=== PATIENT | female | born 1965 | race Caucasian/White ===

== ENCOUNTER 2023-03-20 10:40 | Emergency (ER) | payer MEDICARE, SELFPAY ==
--- NOTE | ~2023-03-20 | CT_ITS ---
EXAMINATION: CT abdomen pelvis w con DATE: 03/20/2023 14:56 INDICATION: Upper abdominal pain TECHNIQUE: Computed tomography (CT) of the abdomen and pelvis was performed with 100 mL Omnipaque-350 intravenous contrast. Automated exposure control and iterative reconstruction technique were employe d. The dose-length product was 1370.06 mGy-cm. COMPARISON: None FINDINGS: Calcified left lower lobe nodule and calcified left hilar and mediastinal lymph nodes consistent with old granulomatous disease. Mild right basilar atelectasis along the mildly elevated right hemidiaphr agm. Heart size is normal. No pericardial or pleural effusion. Cholecystectomy clips the gallbladder fossa. Liver, spleen and right adrenal gland are normal. 1.5 cm macroscopic fat attenuation left adre nal myelolipoma. Couple cystic lesions at the tail the pancreas larger measuring 1.2 cm with no evide nt solid enhancing soft tissue component. Small focus of cortical scarring at the lower pole of the l eft kidney likely sequela prior infection or infarction. Right kidney is normal. No hydronephrosis. M ultiple diverticula along the descending and sigmoid colon without adjacent from trace stranding to s uggest diverticulitis. Postoperative change of prior hysterectomy and cystectomy with ileal conduit f ormation. Small bowel anastomosis likely at the ileal conduit harvest site in the anterior lower abdo men. Stranding surrounding a reportedly recently placed left lower osteotomy for the ileal conduit. N o dilated bowel to suggest obstruction. Additional stranding at the site of a likely recently taken d own prior right abdominal ostomy. Stranding along a midline abdominal surgical wound. More chronic ap pearing right inguinal hernia repair. No intra-abdominal abscess or free intraperitoneal gas or fluid . No pathologically enlarged abdominal or pelvic lymphadenopathy. Infrarenal IVC filter. L1-L5 anteri or and posterior spinal fusion with interbody bone graft cages at each level and bilateral vertical r od and pedicle screw fixation at L1-L3. There is also posterior fusion bilaterally at L5-S1. Spinal s timulator in the subcutaneous tissues at the left buttock with leads extending cephalad into the cent ral canal at the posterior thoracic spine with distal tips positioned at the level of T8 and T11. IMPRESSION: 1. Recent postoperative change of likely takedown and replacement of a right-sided with a left-sided lower abdominal ostomy for an ileal conduit. No evident abscess, leak, obstruction or other acute int ra-abdominal/pelvic process. 2. Additional likely more chronic changes of prior cholecystectomy, cystectomy and hysterectomy as we ll as right lower quadrant and inguinal hernia repair and infrarenal IVC filter placement. 3. Diverticulosis. 4. Couple cystic lesions at the tail of the pancreas the larger measuring 1.2 cm. The differential di agnosis includes pseudocyst, intraductal papillary mucinous neoplasm (IPMN), mucinous cystic neoplasm (MCN), and the less common serous cystadenoma and neuroendocrine tumor. Correlate for history of ware creatitis with any prior outside imaging. Otherwise would consider 1 year follow-up pre and postcontr ast MRI. Reviewed, dictated and finalized at location A. IMPRESSION: 1. Recent postoperative change of likely takedown and replacement of a right-si ded with a left-sided lower abdominal ostomy for an ileal conduit. No evident a bscess, leak, obstruction or other acute intra-abdominal/pelvic process. 2. Additional likely more chronic changes of prior cholecystectomy, cystectomy and hysterectomy as well as right lower quadrant and inguinal hernia repair and infrarenal IVC filter placement. 3. Diverticulosis. 4. Couple cystic lesions at the tail of the pancreas the larger measuring 1.2 c m. The differenti
[2023-03-20 10:59] VITALS: BP 154/93; PULSE 90; RESP 20; TEMP 36.8; O2SAT 100
--- NOTE | 2023-03-20 12:48 | ECG_ITS ---
Measurements Intervals [place] Rate: 100 P: 54 MD: 202 QRS: 47 QRSD: 92 T: 43 QT: 333 QTc: 430 Interpretive Statements SINUS TACHYCARDIA NONSPECIFIC ST & T-WAVE ABNORMALITY- DIFFUSE LEADS BASELINE ARTIFACT- I, V4 ABNORMAL ECG NO PREVIOUS ECG AVAILABLE FOR COMPARISON Electronically Signed On 03-20-2023 15:50:36 CDT by Arjun Handley D.O.
[2023-03-20] MEDS: MORPHINE SULFATE (*CRX) 4 MG/ML INJ IV PUSH ×2 (13:19→15:36)
[2023-03-20 14:13] VITALS: BP 163/92; PULSE 70; RESP 16; O2SAT 98
[2023-03-20 14:26] LABS: Basophils Absolute Auto 0.1 K/mm3 (0.0-0.1); Basophils Percent Auto 0.8 % (0.2-1.2); Eosinophils Absolute Auto 0.3 K/mm3 (0-0.3); Eosinophils Percent Auto 5.3 % (0-4.4); Hematocrit 36.4 % (37.0-47.0); Hemoglobin 11.6 g/dL (12.0-15.0); Immature Granulocyte Absolute 0.03 K/mm3 (0.00-0.031); Immature Granulocyte Percent A 0.5 % (0-0.5); Lymphocytes Absolute Auto 2.24 K/mm3 (0.9-3.2); Lymphocytes Percent Auto 37.3 % (18.3-44.2); Mean Corpuscular HGB Conc 31.9 g/dl (32-36); Mean Corpuscular Hemoglobin 26.5 pg (26-34); Mean Corpuscular Volume 83.3 fl (80-100); Mean Platelet Volume 9.9 fl (7.4-10.4); Monocytes Absolute Auto 0.5 K/mm3 (0.1-0.6); Monocytes Percent Auto 8.5 % (2.6-8.5); Neutrophils Absolute Auto 2.9 K/mm3 (1.3-6.7); Neutrophils Percent Auto 47.6 % (45.5-73.1); Platelet Count Result 148 k/mm3 (150-375); Red Blood Count 4.37 M/mm3 (4.2-5.4); Red Cell Distribution Width 14.8 % (11.5-14.5)
[2023-03-20 14:28] LABS: Appearance Urine Clear (Clear); Bacteria Urine 3+ /hpf; Bilirubin Urine Negative (Negative); Blood Urine 1+ (Negative); Color Urine Yellow (Yellow); Glucose Urine UA Negative (Negative); Ketones Urine Negative (Negative); Leukocyte Esterase Ur 1+ LEU/UL (Negative); Nitrate Urine Positive (Negative); Non Pathogenic Casts 0-2; Protein Urine Negative (Negative); RBC Urine 0-2 /hpf (0-2); Specific Grav Ur 1.008 (1.001-1.035); Squamous Epithelial Cell Urine None seen /hpf (Few); Urobilinogen Urine 0.2 mg/dL (<2.0); pH Urine 6.5 (5.0-9.0)
[2023-03-20 14:37] LABS: Alanine Aminotransferase 16 U/L (6-35); Albumin Level 3.9 g/dL (3.5-5.1); Alkaline Phosphatase 95 U/L (38-126); Anion Gap 4 mmol/L (8-16); Aspartate Amino Transferase 21 U/L (14-36); Bilirubin,Total 0.5 mg/dL (0.2-1.3); Blood Urea Nitrogen 12 mg/dL (7-17); Calcium 8.3 mg/dL (8.4-10.2); Carbon Dioxide 30 mmol/L (22-30); Chloride 103 mmol/L (98-107); Estimated CRCL calculation 121 ml/min; Estimated Glomerular Filt Rate > 60; Glucose 90 mg/dL (65-110); Lipase 30 U/L (23-300); Sodium 137 mmol/L (137-145)
[2023-03-20 14:44] LABS: Add Urine Microscopic? YES
[2023-03-20 14:48] LABS: Troponin I < 0.012 ng/mL (0.000-0.034)
--- NOTE | 2023-03-20 15:00 | PC.NURSE ---
return from ct. pt requesting more pain medication. edp informed.
[2023-03-20 15:30] LABS: INR 1.1; Prothrombin Time 14.5 Seconds (11.1-14.7)
[2023-03-20 15:31] LABS: Partial Thromboplastin Time 29.1 SECONDS (22.3-36.8)
--- NOTE | 2023-03-20 15:59 | ED.GENADULT ---
HPI - General Adult General Chief complaint: Abdominal Pain Stated complaint: abd pain, new urine stoma placed Time Seen by Provider: 03/20/23 12:29 History of Present Illness HPI narrative: Patient is a 57-year-old female who presents ER with abdominal pain. She had a parastomal hernia on the right side repaired by urologist at [facility] 3 weeks ago. She has begun having pain in her abdomen over the last couple days. She is concerned that her urine coming from her left ileal conduit is infected. It is foul in smell. She thinks it is darker in color. She has had no fevers or chills or sweats. She has had being normal passage of bowel. She has pain in her mid abdomen that is colicky and worsened by certain movements. Patient also reports chest pain that occurred yesterday and was achiness to the center part of her chest but is now resolved. Related Data Allergies Allergy/AdvReac Type Severity Reaction Status Date / Time adhesive tape Allergy Unknown Unknown Verified 02/14/23 09:54 Penicillins Allergy Unknown Unknown Verified 02/14/23 09:54 Sulfa (Sulfonamide Allergy Unknown Unknown Verified 02/14/23 09:54 Antibiotics) vancomycin Allergy Unknown Unknown Verified 02/14/23 09:54 latex Allergy Unknown Unknown Uncoded 02/14/23 09:54 Review of Systems Review of Systems: All systems reviewed & are unremarkable except as noted in HPI and below Constitutional: Constitutional: Denies chills, Denies fatigue and Denies fever(s) ENT: Denies nasal congestion and Denies sore throat Cardiovascular: Cardiovascular: Reports chest pain, Denies rapid heart rate and Denies radiating jaw, neck or arm pain Respiratory: Respiratory: Denies cough, Denies dyspnea and Denies wheezing Gastrointestinal: Gastrointestinal: Reports abdominal pain, Denies diarrhea, Denies nausea and Denies vomiting Genitourinary: Genitourinary: Denies nocturia, Denies dysuria and Denies flank pain PMF Past Medical History Medical History (Updated 03/20/23 @ 18:47 by Rodrick Britton MD) Allergies Anxiety Hypertension Paraplegia PTSD (post-traumatic stress disorder) Stroke Surgical History Surgical History (Updated 03/20/23 @ 18:47 by Rodrick Britton MD) History of back surgery History of ileal conduit Family History Family History Father Hypertension Cancer Mother Cancer Hypertension Anxiety Grandparent Cancer Social History Social History Smoking status: Never smoker Alcohol intake: never Substance use: unknown Lack of Transportation: No Lack of Food: Never True Current Housing: I Have Housing Concerned About Future Housing: No Difficulty Paying Gas/Electric Bills: No Difficulty Paying for Meds: No Currently Unemployed: No Education: High School Diploma/GED Difficulty w/ Childcare or Family Care: No Exam Narrative: GENERAL: Well-appearing, well-nourished, and in no acute distress. HEAD: Normocephalic, atraumatic. ENT: Mucous membranes moist. NECK: Supple. CHEST: Clear to auscultation. No respiratory distress. HEART: Regular rate and rhythm. Normal peripheral pulses. ABDOMEN: Soft, mild epigastric and right upper quadrant tenderness without guarding, nondistended, normal active bowel sounds. Normal-appearing ileal conduit site on the left side. Well-healed scar on the right side. EXTREMITIES: Chronic lower extremity weakness due to paralysis. Normal upper extremity movement. SKIN: Warm, dry, no rash. NEURO:Alert and oriented x3. PSYCH: Normal mood and affect. Course Course Emergency Course: Patient given some pain medication. Discussed lab results. Urinalysis with bacteria and a few white blood cells. I discussed the case with Dr. Molina who is on-call for Dr. Cerna. We discussed the imaging studies as well as labs. No acute concern at this time and he o
[2023-03-20 16:40] VITALS: BP 167/99; PULSE 88; RESP 16; O2SAT 100
[2023-03-20 17:15] VITALS: BP 144/89; RESP 18
== END 2023-03-20 17:15 | disposition home or self-care (01) ==
PROVIDERS: Emergency Provider Emergency Medicine; PCP Physician Assistant
DX: G89.18 Other acute postprocedural pain (principal); I10 Essential (primary) hypertension; G82.20 Paraplegia, unspecified; Z93.6 Other artificial openings of urinary tract status; Z86.73 Personal history of transient ischemic attack (TIA), and cerebral infarction without residual deficits; Z90.49 Acquired absence of other specified parts of digestive tract; Z90.710 Acquired absence of both cervix and uterus; K57.90 Diverticulosis of intestine, part unspecified, without perforation or abscess without bleeding; K86.2 Cyst of pancreas; R00.0 Tachycardia, unspecified; R94.31 Abnormal electrocardiogram [ECG] [EKG]
CPT/HCPCS: 36415; 74177; 80053; 81001; 83690; 84484; 85025; 85610; 85730; 87077; 87086; 87088; 87186; 93005; 96374; 96376; 99284; J2270; Q9967

== ENCOUNTER 2023-06-05 10:00 | Outpatient (RCR) | payer MEDICARE, SELFPAY ==
--- NOTE | 2023-05-14 10:11 | OPREHPOC ---
Outpatient Therapy Plan of Care This is a Multidisciplinary Plan of Care that may contain components documented by all disciplines (PT, OT, and ST.) PT Problem 1 PT Problem #1 Knowledge Deficit PT Goal 1 Goal Pt to be IND with issued HEP Target Visit 8 PT Problem 2 PT Problem #2 Pain PT Goal 1 Goal Pt to report BLE pain no greater than 4/10 in the last week. PT Problem 3 PT Problem #3 Impaired Range of Motion PT Goal 1 Goal Pt to improve R knee extension to lacking 40 deg, and L knee lacking 20 deg from terminal knee extension. Target Visit 8 PT Problem 4 PT Problem #4 Impaired Strength PT Goal 1 Goal Pt to clear mat while doing glute bridge Target Visit 8 PT Goal 2 Goal Pt to improve BLE strength to grossly 4/5 PT Problem 5 PT Problem #5 Impaired Functional Mobil PT Goal 1 Goal Pt to be able to tolerate a 10s stand with Min A Target Visit 8 PT Goal 2 Goal Pt to demonstrate a sit to stand transfers with only Min A needed Target Visit 8
--- NOTE | 2023-05-14 10:12 | PTOPEVAL1 ---
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 She has been in and out of rehab multiple times in the last 4 years. She has standing with // bars and a standing frame as of August of this year. Her therapy has been complicated with bladder infections, bladder removal surgeries, infections, and other medical condition. She states she feels a little bit more and more of her legs every day. Pt states her goal is to have her life back. Her primary goals are to stand and walk with a walker and also to straighten her legs. Reported Pain Level Pain Score 5: Self Report Assessment PT Clinical Summary Angelina presents to therapy today for her initial evaluation with a medical diagnosis of an incomplete spinal cord injury, residual from 4 years ago. Today she uses a motorized wheelchair as her only means of mobility. She demonstrates significant knee flexion contractures, lacking 60 deg of extension on the R, and 40 deg on the L. She demonstrates knee and ankle strength grossly 3 +/5. Skilled therapy services including aquatic therapy are indicated to improve functional mobility, to improve strength and ROM, and to help manage LE leg pain. Plan of Care Interventions Aquatic Therapy,Gait Training,Manual Therapy,Neuro Re-education,Patient/Caregiver Educati, Therapeutic Activities,Therapeutic Exercise,Self- Care/Home Management,Wheelchair Training PT Services Indicated Yes Treatment Frequency and 2x/wk for 8 visits Duration These treatments will address the objective and functional deficits as defined above. The patient will be advanced safely and appropriately in order for the patient to progress towards his/her prior level of function. Additional exercises will be introduced and as well as a comprehensive home exercise program upon discharge, if needed, ?to ensure carryover of functional gains achieved in the clinic. This treatment plan has been reviewed and agreement upon by the patient.
--- NOTE | 2023-05-23 07:38 | PCPTNOTE ---
Patient's is sick and will not be able to bring her to therapy today.
--- NOTE | 2023-06-10 11:38 | PCPTNOTE ---
pt did not show for today's reeval appt. Called pt and left a voice message.
--- NOTE | 2023-07-02 11:56 | PTOPDC ---
Assessment and note entered by Malika Banda, PT Discharge Information Assessment PT Clinical Summary Angelina has received 5 PT sessions, from May 13 to Jun 05; she then stopped attending therapy. She will be discharged at this time. The goals were not addressed. Plan of Care PT Services Indicated No
== END 2023-07-02 12:46 | disposition home or self-care (01) ==
LOC: ANHPT 10:00
PROVIDERS: PCP Physician Assistant; Visit Provider Physician Assistant
DX: G82.22 Paraplegia, incomplete (principal)
CPT/HCPCS: 97110; 97113; 97162; 97530; 99199

== ENCOUNTER 2023-08-20 13:02 | Outpatient (CLI) | payer MEDICARE, SELFPAY ==
--- NOTE | ~2023-08-20 | CT_ITS ---
EXAMINATION: CT lumbar spine wo con DATE: 08/20/2023 13:32 INDICATION: Lumbar radiculopathy. TECHNIQUE: Computed tomography (CT) of the lumbar spine was performed without intravenous contrast. A utomated exposure control and iterative reconstruction technique were employed. The dose-length produ ct was 1229.47 mGy-cm. COMPARISON: CT abdomen and pelvis 03/20/2023 FINDINGS: There is a filter in the inferior vena cava. There are epidural electrodes with tips in tho racic spine. There is 12 degrees levoscoliosis of thoracolumbar spine. There is kyphosis of upper lum bar spine. There are changes of anterior fusion procedures at L1-L2, L2-L3, L3-L4, and L4-L5 with int erbody devices. There are changes of posterior fusion procedure from L1 to L5 with pedicle screws fro m L1 to L3. There are bridging endplate osteophytes at L5-S1. The following disc levels are specifica lly discussed: L1-L2: There is mild bilateral facet joint hypertrophy. There is moderate bilateral neural foraminal stenosis. There is no central canal stenosis. There is posterior decompression. L2-L3: There is mild bilateral facet joint hypertrophy. There is mild left neural foraminal stenosis. There is no central canal stenosis. There is posterior decompression. L3-L4: There is mild bilateral facet joint hypertrophy. There is mild bilateral neural foraminal sten osis. There is no central canal stenosis. There is posterior decompression. L4-L5: There is moderate bilateral facet joint hypertrophy. There is moderate right and mild left lilliana ral foraminal stenosis. There is no central canal stenosis. There is posterior decompression. L5-S1: The disc does not extend beyond the endplate margin. There is ankylosis of the facet joints wi th mild bilateral hypertrophy.. There is no neural foraminal stenosis. There is no central canal sten osis. IMPRESSION: 1. Moderate lumbar spondylosis. 2. Anterior fusion from L1 to S1 and posterior fusion from L1 to S1. Reviewed, dictated and finalized at location E. TE SENSING TECHNICIAN
== END 2023-08-20 13:03 | disposition home or self-care (01) ==
LOC: ANHIMG 13:05
PROVIDERS: PCP Physician Assistant; Visit Provider Physical Medicine & Rehabilitation
DX: M47.26 Other spondylosis with radiculopathy, lumbar region (principal); Z98.1 Arthrodesis status
CPT/HCPCS: 72131

== ENCOUNTER 2023-10-01 13:30 | Outpatient (RCR) | payer MEDICARE, SELFPAY ==
--- NOTE | 2023-07-22 17:11 | PTOPEVAL1 ---
Assessment and note entered by Samuel Farooq, PT Evaluation Information Assessment Status Evaluation Diagnosis Incomplete paraplegia Onset March 2019 Subjective Information Reports that her left side appears to be better as far as strength goes. She has been in a wheelchair for about 4 years. Able to self transfer. Reports that she had a stroke approximately 1.5 years ago. She has not been able to stand transfer on her own, but has in the past been able to marine extension agent parallel bars. She has been laying on her stomach to relax her back pain. She would like to be able to return to semi-standing activity and improving weight bearing through legs . Reports that she has sensory in her legs but no motor control. Reported Pain Level Pain Score 6: Self Report Assessment PT Clinical Summary Patient presents with subtle but present muscle activation. Significant knee flexion contractures which limit lever arm on standing activity. Will benefit from skilled therapy to address strength and mobility deficits to maximize functional activity and ADL performance with eventual goal of standing activity. Plan of Care Interventions Aquatic Therapy,Gait Training,Manual Therapy,Neuro Re-education,Therapeutic Activities,Therapeutic Exercise PT Services Indicated Yes Treatment Frequency and 2x/week for 10 visits Duration These treatments will address the objective and functional deficits as defined above. The patient will be advanced safely and appropriately in order for the patient to progress towards his/her prior level of function. Additional exercises will be introduced and as well as a comprehensive home exercise program upon discharge, if needed, ?to ensure carryover of functional gains achieved in the clinic. This treatment plan has been reviewed and agreement upon by the patient.
--- NOTE | 2023-07-22 17:11 | OPREHPOC ---
Outpatient Therapy Plan of Care This is a Multidisciplinary Plan of Care that may contain components documented by all disciplines (PT, OT, and ST.) PT Problem 1 PT Problem #1 Knowledge Deficit PT Goal 1 Goal Indepenence with HEP Target Visit 5 PT Problem 2 PT Problem #2 Impaired Range of Motion PT Goal 1 Goal Improve charisma knee extension to 10 degrees from neutral Target Visit 10 PT Problem 3 PT Problem #3 Impaired Strength PT Goal 1 Goal Improve charisma hip flexion strength to 4/5 to improve foot clearance with ambulation Target Visit 10 PT Goal 2 Goal Improve charisma hip abduction strength to 4/5 to improve lateral stability with ADLs. Target Visit 10 PT Problem 4 PT Problem #4 Impaired Functional Mobil PT Goal 1 Goal Demonstrate ability to stand with charisma UE support for 1 minute for functional transition and weightbearing activity. Target Visit 10
--- NOTE | 2023-07-24 14:47 | PCPTNOTE ---
Pt cancelled due to not being able to take wc into the rain because of the battery.
--- NOTE | 2023-08-25 14:11 | PTOPPROG ---
Assessment and note entered by Samuel Farooq, PT Evaluation Information Assessment Status Progress Diagnosis Incomplete paraplegia Onset March 2019 Subjective Information Reports that she seen improvement in stepping and standing especially in aquatics. Feels that she is able to get a lot more give in her hip and knee stretching while in aquatics. She feels she has been able to do more biking for endurance as she is getting some sensory input in her squatting position. Her land carry over feels she is able to see improved endurance and with standing frame. She has been able to get up in the parallel bars and was able to take 2 steps last week. Able to put more weight through her feet and not her hands . Assessment PT Clinical Summary Patient has seen exceptional improvement in standing activity and LE ROM to improve standing ability and form. She continues to show considerable weakness but has seen improvement in functional and objective strength. Will continue to benefit from skilled therapy to address these deficits. Plan of Care Interventions Aquatic Therapy,Gait Training,Manual Therapy,Neuro Re-education,Therapeutic Activities,Therapeutic Exercise PT Services Indicated Yes Treatment Frequency and 2x/week for 10 visits Duration These treatments will address the objective and functional deficits as defined above. The patient will be advanced safely and appropriately in order for the patient to progress towards his/her prior level of function. Additional exercises will be introduced and as well as a comprehensive home exercise program upon discharge, if needed, ?to ensure carryover of functional gains achieved in the clinic. This treatment plan has been reviewed and agreement upon by the patient.
--- NOTE | 2023-08-25 14:11 | OPREHPOC ---
Outpatient Therapy Plan of Care This is a Multidisciplinary Plan of Care that may contain components documented by all disciplines (PT, OT, and ST.) PT Problem 1 PT Problem #1 Knowledge Deficit PT Goal 1 Goal Indepenence with HEP Target Visit 5 Progress Met PT Problem 2 PT Problem #2 Impaired Range of Motion PT Goal 1 Goal Improve charisma knee extension to 10 degrees from neutral Target Visit 20 Progress Partially Met PT Problem 3 PT Problem #3 Impaired Strength PT Goal 1 Goal Improve charisma hip flexion strength to 4/5 to improve foot clearence with ambulation Target Visit 20 Progress Partially Met PT Goal 2 Goal Improve charisma hip abduction strength to 4/5 to improve lateral stability with ADLs. Target Visit 20 Progress Partially Met PT Problem 4 PT Problem #4 Impaired Functional Mobil PT Goal 1 Goal Demonstrate ability to stand with charisma UE support for 1 minute for functional transition and weightbearing activity. Target Visit 20 Progress Partially Met
--- NOTE | 2023-09-10 14:40 | PCPTNOTE ---
Pt had toothache and awaiting for a dentist appt.
--- NOTE | 2023-09-17 15:29 | PCPTNOTE ---
pt called and canceled appt due to illness.
--- NOTE | 2023-10-15 10:18 | PCPTNOTE ---
pt called and canceled today and tomorrow's appts due to car issues.
--- NOTE | 2023-10-20 12:49 | PCPTNOTE ---
Patient plan of care transferred to #[id number]
--- NOTE | 2023-10-21 08:01 | PCPTNOTE ---
This treatment is being continued on visit number [id number]. Please see documentation on both accounts to view progress. Completed interventions, outcomes, and problems have been marked as Inactive to facilitate the copying of the Care plan routine for recurring accounts.
== END 2023-10-20 12:39 | disposition home or self-care (01) ==
LOC: ANHPT 13:30
PROVIDERS: PCP Physician Assistant; Visit Provider Physician Assistant
DX: G82.22 Paraplegia, incomplete (principal)
CPT/HCPCS: 97110; 97113; 97140; 97161; 97530

== ENCOUNTER 2023-10-14 09:52 | Outpatient (RCR) | payer MEDICARE, SELFPAY ==
--- NOTE | 2023-10-14 11:36 | OTOPEVDC ---
Assessment and note entered by Joe Goldstein, OTR/L, CHT Thank you for referring Angelina Mcnulty to [facility].? An evaluation has been completed. No further treatment is needed. Evaluation Information Assessment Status Evaluation Subjective Information Patient presents for power w/c evaluation. She comes with the dx of incomplete paraplegia. Please refer to scanned mobility evaluation for complete evaluation details. Assessment OT Clinical Summary Angelina is unable to safely and independently ambulate household distances due to her impairments of weakness, contractures, pain, muscle spasms, and poor standing balance. She is a high risk for falls. She demonstrates significant functional mobility limitations that impair her ability to safely participate in mobility-related ADLs. These limitations cannot be sufficiently resolved by the use of an appropriate fitted cane, walker, or manual wheelchair. Patient is unable to utilized an optimally fitted cane or walker due to LE pain and weakness as well as knee contractures. She is unable to utilize a manual w/ c due to right shoulder pain as well as shortness of breath with exertion. A power mobility base will provide this patient a safe means of functional mobility necessary for completion of MRADLS. She requires the features such as tilt and recline for optimal pressure relief. She is also unable to stand and reach items for ADLs, for which a seat elevator will increase her safety and independence with being able to reach into cabinets, brush her teeth at the sink, and be at counter height for meal prep. Angelina has been evaluated and demonstrates the gross motor, fine motor, and cognitive ability to safely operate a power wheelchair. Without the use of a power w/c, this patient would be confined to a chair or bed. With a power w/c this will provide her with a safe meals to perform ADLs. Patient is able and willing to operate power w/c. Patient also has lower extremity tone which causes her feet to come off the footplate. A flexifeet would greatly help stabilize the foot on the foot plate. She has a history of lower extremity injury due to the tone and the leg coming off the footplate. No further OT indicated at this time. Thank you for this referral.
== END 2023-10-14 12:44 | disposition home or self-care (01) ==
LOC: ANHOT 09:52
PROVIDERS: PCP Physician Assistant; Visit Provider Physician Assistant
DX: Z46.89 Encounter for fitting and adjustment of other specified devices (principal); G82.21 Paraplegia, complete
CPT/HCPCS: 97167

== ENCOUNTER 2023-12-24 09:35 | Outpatient (CLI) | payer MEDICARE, SELFPAY ==
--- NOTE | ~2023-12-24 | CT_ITS ---
EXAMINATION: CT thoracic lumbar wo con DATE: 12/24/2023 10:03 INDICATION: Dorsalgia, unspecified. TECHNIQUE: Computed tomography (CT) of the thoracic and lumbar spine was performed without intravenou s contrast. Automated exposure control and iterative reconstruction technique were employed. The dose -length product was 1907.58 mGy-cm. COMPARISON: Lumbar spine CT 08/20/2023 FINDINGS: CT THORACIC SPINE: Calcified left hilar mediastinal lymph nodes are consistent with old granulomatous disease. There is 13 degrees levoscoliosis of thoracic spine. There are changes of anterior fusion p rocedure at C6-C7 with healed interbody bone graft and anterior plate and screws. Vertebral body heig hts are normal. There is mildly decreased disc height at T4-T5, T5-T6, T6-T7, T7-T8, and T8-T9. There is multilevel mild facet joint osteoarthritis. No neural foraminal stenosis. No central canal stenos is. There is epidural electrodes with tips at T8 and T10. CT LUMBAR SPINE: There is a 14 mm mass of fat in left adrenal gland, consistent with a myelolipoma. T here is a filter in the inferior vena cava. There is focal kyphosis at L1-L2. There is 4 mm retrolist hesis of L1 and L2. There are changes of anterior fusion procedure from L1 to L5 with interbody devic es and healed interbody bone graft. There are bridging endplate osteophytes at L5-S1. There are robles es of posterior fusion procedure from L1 to L3 with pedicle screws. The following disc levels are spe cifically discussed: L1-L2: There is ankylosis of the facet joints with mild hypertrophy. There is moderate bilateral neur al foraminal stenosis. There is no central canal stenosis. There is posterior decompression. L2-L3: There is ankylosis of the facet joints with hypertrophy. There is no neural foraminal stenosis . There is no central canal stenosis. There is posterior decompression. L3-L4: There is ankylosis of the facet joints with mild hypertrophy. There is mild bilateral neural f oraminal stenosis. There is no central canal stenosis. There is posterior decompression. L4-L5: There is ankylosis of the facet joints with mild hypertrophy. There is moderate right and mild left neural foraminal stenosis. There is no central canal stenosis. There is posterior decompression . L5-S1: The disc does not extend beyond the endplate margin. There is ankylosis of the facet joints wi th mild hypertrophy. There is no neural foraminal stenosis. There is no central canal stenosis. IMPRESSION: 1. Mild thoracic spondylosis. 2. Thoracic dextroscoliosis. 3. Anterior and posterior fusion from L1 to S1. 4. Stable moderate lumbar spondylosis. Reviewed, dictated and finalized at location A.
[2023-12-24 10:18] LABS: Basophils Absolute Auto 0.1 K/mm3 (0.0-0.1); Basophils Percent Auto 0.8 % (0.2-1.2); Eosinophils Absolute Auto 0.1 K/mm3 (0-0.3); Eosinophils Percent Auto 1.9 % (0-4.4); Hematocrit 39.8 % (37.0-47.0); Hemoglobin 13.1 g/dL (12.0-15.0); Immature Granulocyte Absolute 0.03 K/mm3 (0.00-0.031); Immature Granulocyte Percent A 0.5 % (0-0.5); Lymphocytes Absolute Auto 1.48 K/mm3 (0.9-3.2); Lymphocytes Percent Auto 23.8 % (18.3-44.2); Mean Corpuscular HGB Conc 32.9 g/dl (32-36); Mean Corpuscular Hemoglobin 27.8 pg (26-34); Mean Corpuscular Volume 84.5 fl (80-100); Mean Platelet Volume 9.9 fl (7.4-10.4); Monocytes Absolute Auto 0.4 K/mm3 (0.1-0.6); Monocytes Percent Auto 6.4 % (2.6-8.5); Neutrophils Absolute Auto 4.2 K/mm3 (1.3-6.7); Neutrophils Percent Auto 66.6 % (45.5-73.1); Platelet Count Result 181 k/mm3 (150-375); Red Blood Count 4.71 M/mm3 (4.2-5.4); Red Cell Distribution Width 13.6 % (11.5-14.5); White Blood Count 6.2 K/mm3 (4.5-10.0)
== END 2023-12-24 09:36 | disposition home or self-care (01) ==
LOC: ANHIMG 09:35
PROVIDERS: PCP Physician Assistant; Visit Provider Internal Medicine
DX: D64.9 Anemia, unspecified (principal)
CPT/HCPCS: 36415; 72128; 72131; 85025

== ENCOUNTER 2024-01-07 09:00 | Outpatient (RCR) | payer MEDICARE, SELFPAY ==
--- NOTE | 2023-10-20 12:48 | PCPTNOTE ---
Patient treatment carried forward from #[id number]
--- NOTE | 2023-10-21 08:00 | PCPTNOTE ---
This treatment is being continued from visit number [id number]. Please see documentation on both accounts to view progress. Completed interventions, outcomes, and problems have been marked as Inactive to facilitate the copying of the Care plan routine for recurring accounts.
--- NOTE | 2023-10-31 12:13 | PCPTNOTE ---
Called Pt at 10:45 for 11:15 appointment due to the pool being shocked and being unable to do aquatic therapy. Left voicemail.
--- NOTE | 2023-11-07 13:51 | OPREHPOC ---
Outpatient Therapy Plan of Care This is a Multidisciplinary Plan of Care that may contain components documented by all disciplines (PT, OT, and ST.) PT Problem 1 PT Problem #1 Knowledge Deficit PT Goal 1 Goal Indepenence with HEP Target Visit 5 Progress Met PT Goal 2 Goal 11-07-23 progress met goal continue towards goal Target Visit 28 PT Problem 2 PT Problem #2 Impaired Range of Motion PT Goal 1 Goal Improve charisma knee extension to 10 degrees from neutral Target Visit 20 Progress Partially Met PT Goal 2 Goal 11-07-23 progress goal not met continue towards goal Target Visit 28 PT Problem 3 PT Problem #3 Impaired Strength PT Goal 1 Goal Improve charisma hip flexion strength to 4/5 to improve foot clearence with ambulation Target Visit 20 Progress Partially Met PT Goal 2 Goal Improve charisma hip abduction strength to 4/5 to improve lateral stability with ADLs. Target Visit 20 Progress Not Met Comment 11-07-23 progress goal not met continue towards goals PT Problem 4 PT Problem #4 Impaired Functional Mobility PT Goal 1 Goal Demonstrate ability to stand with charisma UE support for 1 minute for functional transition and weightbearing activity. Target Visit 20 Progress Partially Met PT Goal 2 Goal 11-07-23 progress goal not met continue towards goal Target Visit 28
--- NOTE | 2023-11-07 13:51 | PTOPPROG ---
Assessment and note entered by Malika Banda, PT Evaluation Information Assessment Status Progress Diagnosis Incomplete paraplegia Onset March 2019 Subjective Information having more cramps and pain in her R knee, sometimes extends up into her back; when lying on her back, R leg will flex up to her chest and cannot get it to relax; is no longer taking baclofen, is on flexeril; am starting to feel more in her abdomen--can tell when she having pressure for bowel movements, cannot control her bowels, but can feel them; feel like core muscles are stronger; have been doing her exercises at home; have been assessed for new w/c-- to obtain one that allows her to stand up; Assessment PT Clinical Summary Angelina has received 18 PT sessions, aquatic and land activities. She called and canceled 4 appointments due to illness and car issues. Compared to the initial evaluation: increase strength of both hips and knees; increase extension of both knees; continues to have issues with pain and spasms in legs, with contractures limiting her ability to stand; Continue PT. Plan of Care Interventions Therapeutic Exercise,Aquatic Therapy,Manual Therapy,Neuro Re-education,Therapeutic Activities, Gait Training PT Services Indicated Yes Treatment Frequency and 2x/ wk for 10 more visits Duration These treatments will address the objective and functional deficits as defined above. The patient will be advanced safely and appropriately in order for the patient to progress towards his/her prior level of function. Additional exercises will be introduced and as well as a comprehensive home exercise program upon discharge, if needed, ?to ensure carryover of functional gains achieved in the clinic. This treatment plan has been reviewed and agreement upon by the patient.
--- NOTE | 2023-11-13 13:07 | PCPTNOTE ---
Pt. called to reschedule her appointment for today due to the rain. She is not able to take her wheelchair out in the rain..
--- NOTE | 2023-12-15 15:35 | OPREHPOC ---
Outpatient Therapy Plan of Care This is a Multidisciplinary Plan of Care that may contain components documented by all disciplines (PT, OT, and ST.) PT Problem 1 PT Problem #1 Knowledge Deficit PT Goal 1 Goal Indepenence with HEP Target Visit 5 Progress Met PT Goal 2 Goal 11-07-23 progress met goal continue towards goal Target Visit 28 Progress Met Comment 12-15-23 progress goal met Target 34 visits PT Problem 2 PT Problem #2 Impaired Range of Motion PT Goal 1 Goal Improve charisma knee extension to 10 degrees from neutral Target Visit 20 Progress Not Met Comment 12-15-23 progress goal not met PT Goal 2 Goal 11-07-23 progress goal not met continue towards goal Target Visit 28 Progress Not Met Comment 12-15-23 progress; goal not met; NEW GOAL: supine knee extension (-20') with stretching 1* R 2* L target 34 visits PT Problem 3 PT Problem #3 Impaired Strength PT Goal 1 Goal Improve charisma hip flexion strength to 4/5 to improve foot clearence with ambulation Target Visit 20 Progress Partially Met PT Goal 2 Goal Improve charisma hip abduction strength to 4/5 to improve lateral stability with ADLs. Target Visit 20 Progress Not Met Comment 11-07-23 progress goal not met
--- NOTE | 2023-12-15 15:35 | PTOPPROG ---
Assessment and note entered by Malika Banda, PT Progress Report Assessment Status Progress Diagnosis Incomplete paraplegia Onset March 2019 Subjective Information more pain in past few nights, shooting from low back into R hip- excruciating pain; have been doing the leg exercises and stretching at home with assisting; ortho dr said no standing on R LE due to fracture and when knee straighter, to get an MRI of R Knee- -? meniscal tear and continues to have swelling; have to find a new neuro surgeon--hers moved out of state; last x ray about 2 years of back have a new general provider- Dr. Walters, due to hers leaving; Assessment PT Clinical Summary Angelina has received a total of 28 PT sessions. Compared to the last progress report: passive extension of knee R same at (-30') and L improved by 5 to (-20') in prone position and in supine R and L both (-35'). strength has improved with sitting exercises; education for HEP and progression of them. She has more pain reported in her back and legs-- spasms, sharp, excruciating pain. Angelina and her are motivated and doing the exercises at home- strengthening and stretching. Per ortho dr--NO standing on her R LE due to previous lower leg fracture. And he wants her to achieved more R knee extension, to be able to have an MRI Of the knee. The goals were partially met. Unable to address the standing goals due to new restriction. Continue PT 1x/week for aquatic to increase flexibility of hip and knees. Discussed with pt and discussed: contact ortho dr and get ROM he wants prior to MRI. Set up an appointment with new neurosurgeon to check her spine, due to more pain and spasms reported. Plan of Care Interventions Aquatic Therapy,Neuro Re-education,Patient/ Caregiver Education,Therapeutic Activities PT Services Indicated Yes Treatment Frequency and 1x/wk for 6 more visits Duration These treatments will add
--- NOTE | 2024-01-12 11:59 | PCPTNOTE ---
This treatment is being continued from visit number [id number] Please see documentation on both accounts to view progress. Completed interventions, outcomes, and problems have been marked as Inactive to facilitate the copying of the Care plan routine for recurring accounts.
== END 2024-01-12 10:57 | disposition home or self-care (01) ==
LOC: ANHPT 09:00
PROVIDERS: PCP Physician Assistant; Visit Provider Physician Assistant
DX: G82.22 Paraplegia, incomplete (principal)
CPT/HCPCS: 97110; 97112; 97113; 97140; 97530

== ENCOUNTER 2024-01-20 08:16 | Outpatient (RCR) | payer MEDICARE, SELFPAY ==
--- NOTE | 2024-01-12 12:01 | PCPTNOTE ---
This treatment is being continued from visit number [id number]. Please see documentation on both accounts to view progress. Completed interventions, outcomes, and problems have been marked as Inactive to facilitate the copying of the Care plan routine for recurring accounts.
--- NOTE | 2024-01-13 08:11 | PCPTNOTE ---
Pt canceled due to WC and weather.
--- NOTE | 2024-01-26 10:32 | PCPTNOTE ---
pt called and canceled today's reeval due to raining and cannot get her electric wheelchair out in the rain.
--- NOTE | 2024-04-14 10:46 | PCPTNOTE ---
PHYSICAL THERAPY DISCHARGE Dr. Romeo Alfaro has received a total of 33 PT sessions, from July 22 to January 19, for the diagnosis of incomplete paraplegia . She then stopped attending therapy. Discharge PT. The goals were not addressed.
== END 2024-04-07 14:10 | disposition home or self-care (01) ==
LOC: ANHPT 08:16
PROVIDERS: PCP Physician Assistant; Visit Provider Physician Assistant
DX: G82.22 Paraplegia, incomplete (principal)
CPT/HCPCS: 97113

== ENCOUNTER 2024-03-05 14:03 | Outpatient (CLI) | payer MEDICARE, SELFPAY ==
--- NOTE | ~2024-03-05 | XR_ITS ---
XR_[id number] 03/05/2024 14:33 Indication: Left knee pain Procedure: 2 views left knee Comparison: No prior studies for comparison. Findings: Osteopenia. No fracture, subluxation or dislocation. There is osteoarthritis. The AP view i s limited. Impression: 1: No gross fracture. Limited study. Reviewed, dictated and finalized at location B. Impression: 1: No gross fracture. Limited study.
--- NOTE | ~2024-03-05 | XR_ITS ---
XR hip BI wo pelvis 03/05/2024 14:33 INDICATION: Status post fall. Bilateral hip pain. PROCEDURE: 2 views each hip COMPARISON: No prior studies for comparison. FINDINGS: Fracture, dislocation or subluxation is not identified. There is heterotopic ossification a djacent to the inferior pubic rami bilaterally, likely related to old trauma. No acute fracture or tr aumatic malalignment. There is mild osteoarthritis of the hips. No foreign bodies. The soft tissues a ppear within normal limits. No foreign bodies are identified. IMPRESSION: 1: No acute fracture. Reviewed, dictated and finalized at location B. IMPRESSION: 1: No acute fracture.
--- NOTE | ~2024-03-05 | XR_ITS ---
EXAMINATION: XR_[id number]_CR DATE: 03/05/2024 14:33 INDICATION: Right knee pain. TECHNIQUE: 2 views of right knee were obtained. COMPARISON: None. FINDINGS: The knee is flexed on all views, which decreases sensitivity. No acute fracture. There is a n old healed fracture of fibular diaphysis. Osteopenia is noted. Joint spaces are normal. No knee sergey nt effusion. IMPRESSION: 1. No acute fracture. Reviewed, dictated and finalized at location A. IMPRESSION: 1. No acute fracture.
== END 2024-03-05 14:04 | disposition home or self-care (01) ==
PROVIDERS: PCP Internal Medicine; Visit Provider Nurse Practitioner
DX: M25.551 Pain in right hip (principal); M25.552 Pain in left hip; M25.561 Pain in right knee; M25.562 Pain in left knee
CPT/HCPCS: 73521; 73560

== ENCOUNTER 2024-04-18 12:30 | Observation (INO) | payer MEDICARE, SELFPAY ==
[2024-04-18] VITALS (8 sets, daily range): BP systolic 134–184; BP diastolic 83–95; PULSE 70–88; RESP 18–20; TEMP 36.5–37.3; O2SAT 95–99
--- NOTE | ~2024-04-18 | CT_ITS ---
EXAMINATION:CT diagnostic chest wo con DATE: 04/20/2024 14:56 INDICATION: Metastatic cancer. TECHNIQUE: Computed tomography (CT) of the chest was performed without intravenous contrast. Automate d exposure control and iterative reconstruction technique were employed. The dose-length product (DLP ) was 626.59 mGy-cm. COMPARISON: CT abdomen and pelvis 04/18/2024, 03/20/2023 FINDINGS: The lungs demonstrate mild atelectasis. A calcified left lung nodule and calcified left hil ar and mediastinal lymph nodes are consistent with old granulomatous disease. There is a 10 mm nodule in left thyroid lobe, likely not clinically significant. The heart size is normal. No pericardial ef fusion. There are changes of cholecystectomy. Calcifications in the spleen are consistent with old gr anulomatous disease. The splenic lesions described on 04/18/2024 are occult on this noncontrast exam. There is a 14 mm mass of fat in left adrenal gland, consistent with a myelolipoma. Epidural electrod es are noted. There are changes of anterior fusion procedure in cervical spine. There are changes of anterior and posterior fusion procedures in lumbar spine. IMPRESSION: 1. No evidence of malignancy. 2. The subcentimeter splenic masses described on 04/18/2024 are stable from 03/20/2023, likely granulo matous disease. Reviewed, dictated and finalized at location A. IMPRESSION: 1. No evidence of malignancy. 2. The subcentimeter splenic masses described on 04/18/2024 are stable from 03/01, likely granulomatous disease.
--- NOTE | ~2024-04-18 | CT_ITS ---
CT abdomen pelvis w con Ordering provider: Missy Chacon PA-C History: 58 years Female with . abd pain, hematuria . Comparison: March 20, 2023 Technique: CT abdomen and pelvis with IV and without oral contrast. Automated exposure control and it erative reconstruction technique were employed. The dose-length product was 1094.99 mGy-cm. 100 mL Om nipaque 350 was given IV. Findings: VISUALIZED LOWER CHEST: Normal. UPPER ABDOMINAL ORGANS: Liver: Normal. Gallbladder: Status post cholecystectomy. Spleen: Small hypodensities with the largest Millimeters. Follow-up advised. Possibility of a cyst or metastatic lesions cannot be excluded. Clini marge correlation advised. Stomach/duodenum: Normal. Pancreas: Atrophic changes. Hypodensity seen in the tail of the pancreas measuring 1.4 cm suggestive of a cystic mass. MRI evaluation advised. Smaller lesion is also seen in the tail of the pancreas beka sures 3.5 mm Adrenals: Fat containing areas seen in the left adrenal gland which measures 1.6 cm. Suggestive of my elolipoma. Kidneys: Normal. PELVIC ORGANS: Status post cystectomy. Left anterior ostomy with ileal conduit is noted. BOWEL AND MESENTERY: Colon: No evidence of diverticulitis. No evidence of appendicitis. Small Bowel: Normal. No obstruction. Peritoneum/mesentery: No free air or free fluid. No mesenteric lymphadenopathy. RETROPERITONEUM: Mild atheromatous disease of the abdominal aorta. IVC filter is seen in the inferio r vena cava. No retroperitoneal lymphadenopathy. MUSCULOSKELETAL: Superficial soft tissues: The superficial soft tissues are normal. Bones: Age appropriate degenerative changes of the spine. Postoperative changes in the upper and mid lumbar area. Artifact in the proximal right femur which decreases possibility of proper evaluation. Device Seen in the left buttock area with spinal stimulator. IMPRESSION: 1. Cystic areas in the tail of the pancreas unchanged. Atrophic pancreas. 2. 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 3. Hypodensities in the spleen which may be metastatic. Clinical correlation and follow-up advised. Reviewed, dictated and finalized at location A. IMPRESSION: 1. Cystic areas in the tail of the pancreas unchanged. Atrophic pancreas. 2. 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 3. Hypodensities in the spleen which may be metastatic. Clinical correlation a nd follow-up advised.
--- NOTE | ~2024-04-18 | XR_ITS ---
XR abdomen/kub 1V Ordering provider: Roslyn Tapia APRN History: . fecal impaction . Comparison: April 21, 2024 FINDINGS: BOWEL: Nonobstructive bowel gas pattern. ORGANOMEGALY: None. SIGNIFICANT PATHOLOGIC CALCIFICATIONS: None. OTHER: No free air is seen under the diaphragm. Postoperative changes in the spine. Left spinal stimulator. IMPRESSION: NO ACUTE ABDOMINAL FINDINGS. Reviewed, dictated and finalized at location A.
--- NOTE | ~2024-04-18 | XR_ITS ---
XR chest 2V Ordering provider: Missy Chacon PA-C History: 58 years Female with . weakness, cough x ten days . Comparison: None. FINDINGS: MEDIASTINUM: The cardiac silhouette is not enlarged. LUNGS: No infiltrates, effusions or pneumothorax. Granuloma seen in the left lower lobe area. OTHER: No free air under the diaphragm. Degenerative spine. Spinal stimulator is seen in the lower thoracic area. Postoperative changes in the lower cervical area. IMPRESSION: No acute cardiopulmonary pathology. Reviewed, dictated and finalized at location A.
--- NOTE | ~2024-04-18 | XR_ITS ---
Exam: Abdomen 2V HISTORY: abdominal pain, constipation COMPARISON: Reference is made to a CT examination of the abdomen and pelvis dated 04/18/2024 TECHNIQUE: Supine images of the abdomen and pelvis. FINDINGS: Multiple loops of air opacified nondilated small and large bowel are identified. Air is noted within the rectum. Clips within the right upper quadrant consistent or prior cholecystectomy. Hardware within the upper lumbar spine with a nuclear control operator to the left of midline extending cranially to the thoracic spine. Redemonstration of a calcified granuloma within the left mid to lower lung field. IMPRESSION: Multiple loops of air opacified nondilated small and large bowel. Air is noted within the cecum. Reviewed, dictated and finalized at location A.
--- NOTE | 2024-04-18 12:34 | ECG_ITS ---
Test Date: 2024-04-18 12:38:06 Measurements Intervals [place] Rate: 77 P: 0 RI: 0 QRS: 45 QRSD: 98 T: 49 QT: 397 QTc: 449 Interpretive Statements NORMAL SINUS RHYTHM WITH OCCASIONAL PREMATURE VENTRICULAR COMPLEXES. NONSPECIFIC T-WAVE ABNORMALITY ABNORMAL ECG No previous ECG available for comparison Electronically Signed On 04-19-2024 10:37:47 CDT by Arthur Mason M.D.
--- NOTE | 2024-04-18 14:32 | ED.WEAKNESS ---
HPI - Weakness General Chief complaint: Weakness Stated complaint: blood in urine and stool + URI Time Seen by Provider: 04/18/24 14:12 Source: patient Mode of arrival: wheelchair Limitations: no limitations History of Present Illness HPI Narrative: This is a 58-year-old female that presents to the emergency department for feeling unwell. Reports over the last 10 days she has had cough, congestion, fevers, vomiting, diarrhea. Reports over the last couple of days she has also been experiencing blood in the urine and flank pain. Also reports she saw blood in her stool a couple of days ago. Denies shortness of breath. Related Data Allergies Allergy/AdvReac Type Severity Reaction Status Date / Time adhesive tape Allergy Unknown Unknown Verified 03/22/24 07:57 Penicillins Allergy Unknown Unknown Verified 03/22/24 07:57 Sulfa (Sulfonamide Allergy Unknown Unknown Verified 03/22/24 07:57 Antibiotics) vancomycin Allergy Unknown Unknown Verified 03/22/24 07:57 latex Allergy Unknown Unknown Uncoded 03/22/24 07:57 Review of Systems Review of Systems: CONSTITUTIONAL: Reports fever ENT: Reports rhinorrhea, congestion CARDIOVASCULAR: Reports chest pain. Denies edema. RESPIRATORY: Reports cough. Denies dyspnea. GASTROINTESTINAL: Reports abdominal pain, nausea, vomiting, and diarrhea. GENITOURINARY: Reports hematuria. All systems reviewed & are unremarkable except as noted in HPI and below PMFSH Past Medical History Medical History Allergies Anxiety Hypertension Paraplegia PTSD (post-traumatic stress disorder) Stroke Surgical History Surgical History History of back surgery History of ileal conduit Family History Family History Father Hypertension Cancer Mother Cancer Hypertension Anxiety Grandparent Cancer Social History Social History Smoking status: Never smoker Alcohol intake: never Substance use: unknown Lack of Transportation: No Lack of Food: Never True Current Housing: I Have Housing Concerned About Future Housing: No Difficulty Paying Gas/Electric Bills: No Difficulty Paying for Meds: No Currently Unemployed: No Education: High School Diploma/GED Difficulty w/ Childcare or Family Care: No Exam Narrative: GENERAL: Well-appearing, well-nourished, and in no acute distress. HEAD: Normocephalic, atraumatic. EYES: EOMI. ENT: Nares clear, no rhinorrhea or epistaxis. Mucous membranes dry. Oropharynx without tonsillar hypertrophy exudate or other lesions. CHEST: Clear to auscultation. No respiratory distress. No wheezes rales or rhonchi HEART: Regular rate and rhythm. No murmur heard. Normal peripheral pulses. ABDOMEN: Soft, nondistended, normal active bowel sounds. Tender to palpation throughout the abdomen, without guarding. Ileal conduit present EXTREMITIES: Normal range of motion. No edema. SKIN: Warm, dry, no rash. NEURO: No focal deficits. Alert and oriented x3. PSYCH: Normal mood and affect Course Course Emergency Course: patient updated on her workup and recommendation for admission Consultations Consultation #1: Spoke with hospitalist about patient and workup who accepts admission Date: 04/18/24 Vital Signs Vital signs: Vital Signs Temperature 97.7 F 04/18/24 12:31 Pulse Rate 79 04/18/24 12:31 Respiratory Rate 20 04/18/24 12:31 Blood Pressure 184/89 H 04/18/24 12:31 Pulse Oximetry 99 04/18/24 12:31 Oxygen Delivery Room Air 04/18/24 12:31 Temperature 97.7 F 04/18/24 12:31 Pulse Rate 88 04/18/24 18:08 Respiratory Rate 18 04/18/24 18:08 Blood Pressure 144/95 H 04/18/24 18:08 Pulse Oximetry 99 04/18/24 18:08 Oxygen Delivery Room Air 04/18/24 14:01 MDM - Weakness MDM Narrative Medical decision making narrative: Patient presents to the emergency department for ongoing symptoms over the last week. Reporting cough, vomiting, diarrhea. Reporting experiencing flank pain and blood in her urine today. She is afebrile and nontoxic appearing. Her vitals are stable. Cbc without leukocytosis. Metabolic panel with normal appearing kidney function. Lactic acid is not elevated. Influenza, RSV and COVID screens are negative. Urine with evidence of infection. This will be sent for culture. Patient treated based on previous culture. Chest x-ray without acute cardiopulmonary abnormality. CT abdomen and pelvis shows ileal conduit. Possible cyst in the pancreas and lesions in the spleen. Patient updated on her workup and recommendation for admission due to previous urine culture being resistant to multiple antibiotics. Will be started on meropenem. Blood cultures drawn. Spoke with hospitalist about patient and workup who accepts admission Differential Diagnosis Differential diagnosis: Likely sepsis, dehydration and other ( COVID, influenza, RSV, UTI, pyelonephritis, pneumonia) Lab Data Attestation: I reviewed the patient's lab results. 04/18/24 15:56 04/18/24 14:55 Labs: Lab Results 04/18/24 04/18/24 04/18/24 Range/Units 14:55 15:16 15:56 WBC 7.4 (4.5-10.0) K/mm3 RBC 4.95 (4.2-5.4) M/mm3 Hgb 13.9 (12.0-15.0) g/dL Hct 40.6 (37.0-47.0) % MCV 82.0 (80-100) fl MCH 28.1 (26-34) pg MCHC 34.2 (32-36) g/dl RDW 13.2 (11.5-14.5) % Plt Count 221 (150-375) k/mm3 MPV 9.6 (7.4-10.4) fl Immature Gran % (Auto) 0.4 (0-0.5) % Neut % (Auto) 60.4 (45.5-73.1) % Lymph % (Auto) 28.1 (18.3-44.2) % [place] % (Auto) 7.9 (2.6-8.5) % Eos % (Auto) 2.3 (0-4.4) % Baso % (Auto) 0.9 (0.2-1.2) % Lymph # (Auto) 2.09 (0.9-3.2) K/mm3 [place] # (Auto) 0.6 (0.1-0.6) K/mm3 Eos # (Auto) 0.2 (0-0.3) K/mm3 Baso # (Auto) 0.1 (0.0-0.1) K/mm3 Abs Immat Gran (auto) 0.03 (0.00-0.031) K/mm3 Absolute Neuts (auto) 4.5 (1.3-6.7) K/mm3 Absolute Nucleated RBC 0.000 (0.0-0.012) K/mm3 Nucleated RBC % 0.0 (0.0-0.2) % PT 14.0 (11.1-14.7) Seconds INR 1.1 APTT 27.9 (22.3-36.8) Seconds Sodium 140 (137-145) mmol/L Potassium 3.8 (3.4-5.0) mmol/L Chloride 102 (98-107) mmol/L Carbon Dioxide 30 (22-30) mmol/L Anion Gap 8 (4-12) mmol/L BUN 12 (7-17) mg/dL Creatinine 0.50 L (0.7-1.0) mg/dL Estim Creat Clear Calc 125 ml/min Estimated GFR > 60 (59 - ) Glucose 88 (65-110) mg/dL Lactic Acid 1.2 (0.7-2.0) mmol/L Calcium 8.6 (8.4-10.2) mg/dL Total Bilirubin 1.1 (0.2-1.3) mg/dL AST 25 (14-36) U/L ALT 16 (6-35) U/L Alkaline Phosphatase 103 (38-126) U/L Troponin I < 0.012 (0.000-0.034) ng/mL Total Protein 8.0 (6.3-8.2) g/dL Albumin 4.1 (3.5-5.1) g/dL Urine Color Yellow (Yellow) Urine Appearance Cloudy H (Clear) Urine pH 6.0 (5.0-9.0) Ur Specific [place] 1.009 (1.001-1.035) Urine Protein Negative (Negative) mg/dL Urine Glucose (UA) Negative (Negative) mg/dL Urine Ketones Negative (Negative) mg/dL Ur Blood (Man) 2+ H (Negative) Urine Nitrate Positive H (Negative) Urine Bilirubin Negative (Negative) Urine Urobilinogen 1.0 (<2.0) mg/dL Leukocyte Esterase Rfl 3+ H (Negative) ERICK/UL Urine RBC 3-5 H (0-2) /hpf Urine WBC 11-20 H (0-3) /hpf Ur Squamous Epith Cells Occasional (Few) /hpf Urine Bacteria 2+ H /hpf Urine Casts 0-2 Influenza A (RT-PCR) Negative (Negative) Influenza B (RT-PCR) Negative (Negative) RSV (RT-PCR) Negative (Negative) SARS-CoV-2 RNA (RT-PCR) Negative (Negative) Blood Type AB Negative Antibody Screen Negative Imaging Data Radiologist's impression: ITS Impressions Chest X-Ray 04/18/24 15:14 IMPRESSION: No acute cardiopulmonary pathology. Abdomen/Pelvis CT 04/18/24 16:49 IMPRESSION: 1. Cystic areas in the tail of the pancreas unchanged. Atrophic pancreas. 2. 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 3. Hypodensities in the spleen which may be metastatic. Clinical correlation and follow-up advised. ECG Data EKG #1: ECG completion date: 04/18/24 EKG Interpretation: normal rate, sinus rhythm, PVCs, normal QT and other (baseline artifact) Critical Care Time Critical Care Time Critical Care Time: No Discharge Plan Discharge Clinical Impression: Acute UTI, Pancreas cyst, Lesion of spleen Patient Disposition: Still a Patient Condition: Stable
[2024-04-18 15:16] LABS: Alanine Aminotransferase 16 U/L (6-35); Albumin Level 4.1 g/dL (3.5-5.1); Alkaline Phosphatase 103 U/L (38-126); Anion Gap 8 mmol/L (4-12); Aspartate Amino Transferase 25 U/L (14-36); Bilirubin,Total 1.1 mg/dL (0.2-1.3); Blood Urea Nitrogen 12 mg/dL (7-17); Calcium 8.6 mg/dL (8.4-10.2); Carbon Dioxide 30 mmol/L (22-30); Chloride 102 mmol/L (98-107); Estimated CRCL calculation 125 ml/min; Estimated Glomerular Filt Rate > 60; Glucose 88 mg/dL (65-110); Potassium 3.8 mmol/L (3.4-5.0); Sodium 140 mmol/L (137-145)
[2024-04-18 15:27] LABS: Troponin I < 0.012 ng/mL (0.000-0.034)
[2024-04-18 15:30] LABS: Add Urine Microscopic? YES; Appearance Urine Cloudy (Clear); Bacteria Urine 2+ /hpf; Bilirubin Urine Negative (Negative); Blood Urine 2+ (Negative); Color Urine Yellow (Yellow); Glucose Urine UA Negative (Negative); Ketones Urine Negative (Negative); Leukocyte Esterase Ur 3+ LEU/UL (Negative); Nitrate Urine Positive (Negative); Non Pathogenic Casts 0-2; Protein Urine Negative (Negative); Specific Grav Ur 1.009 (1.001-1.035); Squamous Epithelial Cell Urine Occasional /hpf (Few)
[2024-04-18 15:37] LABS: Lactic Acid Reflex 1.2 mmol/L (0.7-2.0)
[2024-04-18 15:41] LABS: Influenza A QL RT-PCR Negative (Negative); Influenza B QL RT-PCR Negative (Negative); RSV RNA, RT-PCR Negative (Negative); SARS-CoV-2 RNA PCR Negative (Negative)
[2024-04-18 16:00] LABS: Basophils Absolute Auto 0.1 K/mm3 (0.0-0.1); Basophils Percent Auto 0.9 % (0.2-1.2); Eosinophils Absolute Auto 0.2 K/mm3 (0-0.3); Eosinophils Percent Auto 2.3 % (0-4.4); Hematocrit 40.6 % (37.0-47.0); Hemoglobin 13.9 g/dL (12.0-15.0); Immature Granulocyte Absolute 0.03 K/mm3 (0.00-0.031); Immature Granulocyte Percent A 0.4 % (0-0.5); Lymphocytes Absolute Auto 2.09 K/mm3 (0.9-3.2); Lymphocytes Percent Auto 28.1 % (18.3-44.2); Mean Corpuscular HGB Conc 34.2 g/dl (32-36); Mean Corpuscular Hemoglobin 28.1 pg (26-34); Mean Platelet Volume 9.6 fl (7.4-10.4); Monocytes Absolute Auto 0.6 K/mm3 (0.1-0.6); Monocytes Percent Auto 7.9 % (2.6-8.5); Neutrophils Absolute Auto 4.5 K/mm3 (1.3-6.7); Neutrophils Percent Auto 60.4 % (45.5-73.1); Platelet Count Result 221 k/mm3 (150-375); Red Blood Count 4.95 M/mm3 (4.2-5.4); Red Cell Distribution Width 13.2 % (11.5-14.5); White Blood Count 7.4 K/mm3 (4.5-10.0)
[2024-04-18 16:12] LABS: INR 1.1
[2024-04-18 16:13] LABS: Partial Thromboplastin Time 27.9 Seconds (22.3-36.8)
[2024-04-18] MEDS: MEROPENEM 1 GM/NS 100 ML 1 GM/100 ML BAG IVPB (18:03)
--- NOTE | 2024-04-18 18:29 | PM.IMHP ---
H&P: HPI History of Present Illness Date/Time: 04/18/24 18:29 Chief Complaint: Generalized weakness Narrative: 58-year-old female with a PMHx: of HTN, paraplegia PTSD, stroke, anxiety, history of ileal conduit, multiple back surgeries presented to the emergency room today with complaint of ongoing weakness for the past 10. Patient denies any recent travel, she reports a moderate frequent nonproductive cough that is been ongoing for past 10 days, that is persistent at night. Patient reports reduced urine output out of her ileal conduit, she also reports a remote history of blood in her stool for the past couple of days as well as left flank pain that has been ongoing. She denies any fever chills, or chest pain at this time. ED Work-up reveals: Initial vitals: b/p 184/89, rr 20, pr 79 sp02 99 % on RA T: 97.7, upon arrival all labs are unremarkable, with the exception of UA which is highly likely infection, with positive nitrates, positive leukocyte esterase, positive urine RBC, positive urine WBC and positive urine bacteria, her viral PCR is negative. Chest x-ray reveals no acute cardiopulmonary abnormality, CT abdomen and pelvis shows ileal conduit, possible cyst in the pancreas and lesions in the spleen recommend follow-up. Patient admitted for further surveillance of general weakness general, cough, and abdominal pain. Review of Systems Review of Systems: All systems reviewed & are unremarkable except as noted in HPI and below PMFSH Past Medical History Medical History Allergies Anxiety Hypertension Paraplegia PTSD (post-traumatic stress disorder) Stroke Surgical History Surgical History History of back surgery History of ileal conduit Family History Family History Father Hypertension Cancer Mother Cancer Hypertension Anxiety Grandparent Cancer Social History Social History Smoking status: Never smoker Alcohol intake: never Substance use: unknown Lack of Transportation: No Lack of Food: Never True Current Housing: I Have Housing Concerned About Future Housing: No Difficulty Paying Gas/Electric Bills: No Difficulty Paying for Meds: No Currently Unemployed: No Education: High School Diploma/GED Difficulty w/ Childcare or Family Care: No Meds Home Medications and Allergies Home Medications Medication Instructions Recorded Confirmed Type alprazolam 0.25 mg tablet 0.25 mg PO TID PRN anxiety #60 tabs 02/17/23 04/18/24 Rx diclofenac sodium 1 % topical gel 2 g topical QID #100 grams 02/17/23 04/18/24 Rx (Voltaren Arthritis Pain) losartan 100 mg tablet 100 mg PO DAILY #90 tabs 02/17/23 04/18/24 Rx olanzapine 5 mg tablet 5 mg PO DAILY #30 tabs 02/17/23 04/18/24 Rx ondansetron 4 mg disintegrating 4 mg PO Q8H PRN nausea and 02/17/23 04/18/24 Rx tablet vomiting #20 tabs ropinirole 0.5 mg tablet 0.5 mg PO BID #180 tabs 02/17/23 04/18/24 Rx zolpidem 5 mg tablet (Ambien) 5 mg PO QHS #30 tabs 02/17/23 04/18/24 Rx atorvastatin 10 mg tablet 10 mg PO DAILY #90 tabs 08/22/23 04/18/24 Rx escitalopram oxalate 20 mg tablet 20 mg PO DAILY #90 tabs 08/22/23 04/18/24 Rx metoprolol succinate 25 mg 12.5 mg PO DAILY #45 tabs 08/22/23 04/18/24 Rx tablet,extended release 24 hr gabapentin 300 mg capsule 900 mg PO TID #270 caps 09/15/23 04/18/24 Rx furosemide 20 mg tablet 20 mg PO QAM #90 tabs 12/29/23 04/18/24 Rx baclofen 20 mg tablet 20 mg PO TID PRN muscle spasm #90 04/13/24 04/18/24 Rx tabs benzonatate 200 mg capsule 200 mg PO TID PRN cough #30 caps 04/13/24 04/18/24 Rx aspirin 81 mg tablet,delayed 81 mg PO DAILY #90 tabs 04/15/24 04/18/24 Rx release (Adult Low Dose Aspirin) hydrocodone 5 mg-acetaminophen 325 1 tablet PO Q8H PRN pain #30 tabs 04/16/24 04/18/24 Rx mg tablet Allergies Allergy/AdvReac Type Severity Reaction Status Date / Time adhesive tape Allergy Unknown Unknown Verified 03/22/24 07:57 Penicillins Allergy Unknown Unknown Verified 03/22/24 07:57 Sulfa (Sulfonamide Allergy Unknown Unknown Verified 03/22/24 07:57 Antibiotics) vancomycin Allergy Unknown Unknown Verified 03/22/24 07:57 latex Allergy Unknown Unknown Uncoded 03/22/24 07:57 Vital Signs Vital Signs - 24 hr 04/18/24 12:31 04/18/24 14:01 04/18/24 14:01 Temperature 97.7 F Pulse Rate 79 70 Respiratory Rate 20 20 Blood Pressure 184/89 H 165/83 H Pulse Oximetry 99 98 99 Oxygen Delivery Room Air Room Air 04/18/24 18:08 Temperature Pulse Rate 88 Respiratory Rate 18 Blood Pressure 144/95 H Pulse Oximetry 99 Oxygen Delivery Exam Narrative: GENERAL: obese, laying in bed in no acute distress, spouse is by the bedside HEAD: Normocephalic, atraumatic. EYES: EOMI. ENT: Nares clear, no rhinorrhea or epistaxis. Mucous membranes dry. Oropharynx without tonsillar hypertrophy exudate or other lesions. CHEST: Clear to auscultation. No respiratory distress. No wheezes rales or rhonchi HEART: Regular rate and rhythm. No murmur heard. Normal peripheral pulses. ABDOMEN: large round, tender to palpation, diminished bowel sounds. Ileal conduit present EXTREMITIES: Normal range of motion. No edema. SKIN: Warm, dry, no rash. NEURO: No focal deficits. Alert and oriented x3. PSYCH: Normal mood and affect H&P: Results Labs Labs: Short CBC 04/18/24 Range/Units 15:56 WBC 7.4 (4.5-10.0) K/mm3 Hgb 13.9 (12.0-15.0) g/dL Hct 40.6 (37.0-47.0) % Plt Count 221 (150-375) k/mm3 BMP 04/18/24 14:55 Sodium 140 Potassium 3.8 Chloride 102 Carbon Dioxide 30 BUN 12 Creatinine 0.50 L Glucose 88 Calcium 8.6 Cardiac Enzymes 04/18/24 Range/Units 14:55 Troponin I < 0.012 (0.000-0.034) ng/mL Liver Function 04/18/24 Range/Units 14:55 Total Bilirubin 1.1 (0.2-1.3) mg/dL AST 25 (14-36) U/L ALT 16 (6-35) U/L Alkaline Phosphatase 103 (38-126) U/L Albumin 4.1 (3.5-5.1) g/dL Urine 04/18/24 Range/Units 15:16 Urine Color Yellow (Yellow) Urine Appearance Cloudy H (Clear) Urine pH 6.0 (5.0-9.0) Ur Specific Joseph 1.009 (1.001-1.035) Urine Protein Negative (Negative) mg/dL Urine Glucose (UA) Negative (Negative) mg/dL Pulse Oximetry Attestation: I personally reviewed and interpreted this pulse oximetry as follows: ECG Attestation: I personally reviewed and interpreted this ECG as follows: ECG completion date: 04/18/24 ECG completion time: 12:38 Prior ECG tracings: not available for review Interpretation: Rate 77 MD 0 QRSd 98 QT 397 Q Tc 449 --[place]-- P 0 QRS 45 T 49 SUPRAVENTRICULAR RHYTHM NONSPECIFIC T-WAVE ABNORMALITY No previous ECG available for comparison Imaging CT scan - abdomen: Radiologist's impression: 1. Cystic areas in the tail of the pancreas unchanged. Atrophic pancreas. 2. 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 3. Hypodensities in the spleen which may be metastatic. Clinical correlation and follow-up advised. Chest x-ray: Radiologist's impression: No acute cardiopulmonary pathology. Assessment and Plan Assessment and plan (1) Acute UTI: Code(s): N39.0 - Urinary tract infection, site not specified Status: Acute Assessment and Plan: ileal conduit present -continue meropenem IVP q.8 -urine cultures pending (2) Pancreas cyst: Code(s): K86.2 - Cyst of pancreas Status: Acute Assessment and Plan: As evidence by abdominal CT -recommends follow-up MRCP scheduled (3) Lesion of spleen: Code(s): D73.89 - Other diseases of spleen Status: Acute Assessment and Plan: As evidence by abdominal CT, recommends follow-up -MRCP requested (4) Anxiety: Code(s): F41.9 - Anxiety disorder, unspecified Status: Acute Assessment and Plan: -continue home medication Xanax 0.25, p.o. t.i.d. p.r.n. anxiety (5) Cough: Code(s): R05.9 - Cough, unspecified Status: Acute Assessment and Plan: -chronic ongoing for 10 days -supportive therapy -benzonatate 200 mg t.i.d. p.o. as needed for cough -ipratropium/albuterol inhalation q.4 hours as needed for wheezing and cough -start prednisone 40 mg p.o. daily x5 doses -sputum culture pending (6) Sleep apnea: Code(s): G47.30 - Sleep apnea, unspecified Status: Acute Assessment and Plan: d/c night use if pt has n/v -otherwise use home settings nightly Plan Continue home medications: As ordered VTE Prophylaxis: SCDs DIET: NPO after midnight for test Anticipated hospital stay: > 2 days < Code Status: Full Quality VTE Prophylaxis VTE prophylaxis: mechanical ordered Hospitalist MIPS Advance Care Plan I have confirmed that the patient's Advanced Care Plan is present, code status is documented, or surrogate decision maker is listed in patient medical record.: Yes Medication Reconciliation I have utilized all available resources to obtain, update and review the patients current medications (includes all prescriptions, OTC, herbals, cannabis, and nutritional supplements).: Yes
[2024-04-18] MEDS: ONDANSETRON HCL ODT 4 MG TABLET PO (21:41)
[2024-04-18] MEDS: HYDROcodone/acetaminophen (*CRX) 5-325 MG TABLET 1 TAB PO (21:42)
[2024-04-18] MEDS: rOPINIRole HCL 1 MG TABLET PO (21:42)
[2024-04-18] MEDS: BENZONATATE 100 MG CAPSULE 200 MG PO (21:42)
[2024-04-18] MEDS: GABAPENTIN 300 MG CAPSULE 900 MG PO (21:43)
[2024-04-18] MEDS: ALPRAZolam (*CRX) 0.25 MG TABLET PO (21:43)
[2024-04-18] MEDS: ZOLPIDEM TARTRATE (*CRX) 5 MG TABLET PO (21:43)
[2024-04-18] MEDS: predniSONE 20 MG TABLET 40 MG PO (21:47)
[2024-04-18] MEDS: WATER FOR IRRIGATION, STERILE 500 ML BOTTLE (21:51)
[2024-04-18] MEDS: IPRATROPIUM 0.5 MG/ALBUTEROL SULFATE 2.5 MG AMPUL.NEB 3 ML INHALATION (21:54)
[2024-04-18] MEDS: ONDANSETRON INJ 4 MG/2 ML VIAL IV PUSH (22:26)
--- NOTE | 2024-04-18 23:16 | ADMGEN ---
This patient, Angelina Mcnulty, was admitted to 3 [facility] Surg Room 327-01. Patient/family oriented to hospital policies and general routines including ID bracelet, bed and alarms, visiting hours, pain management, procedures, bathroom and other care routines, personal items, smoking policy, room service/diet, and visiting hours. Information on how to activate the Rapid Response Team has been discussed. Patient/Family are encouraged to report perceived risks to care and to ask questions if they do not understand what they are told or what they should do.
[2024-04-19] VITALS (14 sets, daily range): BP systolic 99–168; BP diastolic 62–99; PULSE 67–93; RESP 15–20; TEMP 36.2–37.2; O2SAT 94–98
[2024-04-19] MEDS: MEROPENEM 500 MG/NS 100 ML 500 MG/100 ML BAG 200 MG IVPB ×3 (02:30→17:43)
[2024-04-19] MEDS: IPRATROPIUM 0.5 MG/ALBUTEROL SULFATE 2.5 MG AMPUL.NEB 3 ML INHALATION ×2 (03:30→08:01)
[2024-04-19] MEDS: LACTATED RINGERS 1,000 ML 75 ML IV CONT (04:29)
[2024-04-19 06:16] LABS: Basophils Percent Auto 0.4 % (0.2-1.2); Eosinophils Percent Auto 0.1 % (0-4.4); Hematocrit 38.3 % (37.0-47.0); Immature Granulocyte Absolute 0.07 K/mm3 (0.00-0.031); Lymphocytes Absolute Auto 0.84 K/mm3 (0.9-3.2); Lymphocytes Percent Auto 11.4 % (18.3-44.2); Mean Corpuscular HGB Conc 33.9 g/dl (32-36); Mean Corpuscular Hemoglobin 28.1 pg (26-34); Mean Corpuscular Volume 82.9 fl (80-100); Monocytes Absolute Auto 0.1 K/mm3 (0.1-0.6); Monocytes Percent Auto 1.2 % (2.6-8.5); Neutrophils Absolute Auto 6.3 K/mm3 (1.3-6.7); Neutrophils Percent Auto 85.9 % (45.5-73.1); Platelet Count Result 220 k/mm3 (150-375); Red Blood Count 4.62 M/mm3 (4.2-5.4); Red Cell Distribution Width 13.2 % (11.5-14.5); White Blood Count 7.3 K/mm3 (4.5-10.0)
[2024-04-19 06:28] LABS: Alanine Aminotransferase 17 U/L (6-35); Albumin Level 4.1 g/dL (3.5-5.1); Alkaline Phosphatase 96 U/L (38-126); Anion Gap 11 mmol/L (4-12); Aspartate Amino Transferase 18 U/L (14-36); Bilirubin,Total 0.6 mg/dL (0.2-1.3); Blood Urea Nitrogen 10 mg/dL (7-17); Calcium 8.7 mg/dL (8.4-10.2); Carbon Dioxide 25 mmol/L (22-30); Chloride 101 mmol/L (98-107); Estimated CRCL calculation 125 ml/min; Estimated Glomerular Filt Rate > 60; Glucose 198 mg/dL (65-110); Magnesium 2.3 mg/dL (1.6-2.3); Potassium 3.9 mmol/L (3.4-5.0); Sodium 137 mmol/L (137-145)
--- NOTE | 2024-04-19 08:48 | P.PNIM_ITS ---
Progress Note: A&P Assessment and Plan (1) Acute UTI: Code(s): N39.0 - Urinary tract infection, site not specified Status: Acute Assessment and Plan: ileal conduit present -continue meropenem IVP q.8 -urine cultures pending Blood cultures pending no growth to date Legionella culture pending (2) Cough: Code(s): R05.9 - Cough, unspecified Status: Acute Assessment and Plan: -chronic ongoing for 10 days -supportive therapy -benzonatate 200 mg t.i.d. p.o. as needed for cough -ipratropium/albuterol inhalation q.4 hours as needed for wheezing and cough -start prednisone 40 mg p.o. daily x5 doses -sputum culture pending (3) Pancreas cyst: Code(s): K86.2 - Cyst of pancreas Status: Acute Assessment and Plan: As evidence by abdominal CT -recommends follow-up MRCP scheduled??? (4) Lesion of spleen: Code(s): D73.89 - Other diseases of spleen Status: Acute Assessment and Plan: As evidence by abdominal CT, recommends follow-up -MRCP requested Will need to follow up outpatient as we cannot do MRI here due to hospital policy (5) Anxiety: Code(s): F41.9 - Anxiety disorder, unspecified Status: Acute Assessment and Plan: -continue home medication Xanax 0.25, p.o. t.i.d. p.r.n. anxiety (6) Sleep apnea: Code(s): G47.30 - Sleep apnea, unspecified Status: Acute Assessment and Plan: d/c night use if pt has n/v -otherwise use home settings nightly (7) Splenomegaly: Code(s): R16.1 - Splenomegaly, not elsewhere classified Status: Acute Assessment and Plan: Measuring 137.[address] Unable to do MRCP here due to hospital policy, patient has implanted nerve stimulator Lab work pending: FABIEN, HIV, PTT, INR, PTT, uric acid and blood cultures Will likely need oncology consult (8) Constipation: Code(s): K59.00 - Constipation, unspecified Status: Acute Assessment and Plan: Severe constipation seen on CT Will likely need enema Start on daily suppositories, rectal stimulation and aggressive bowel protocol currently, patient will need to be discharged on it Plan Continue home medications: As ordered VTE Prophylaxis: SCDs DIET: NPO after midnight for test Anticipated hospital stay: > 2 days < Code Status: Full Subjective Date/time seen: 04/19/24 08:49 Interval history: 58-year-old female with a PMHx: of HTN, incomplete paraplegia, PTSD, stroke, anxiety, history of ileal conduit, multiple back surgeries presented to the emergency room today with complaint of ongoing weakness for the past 10 days. Review of Systems Review of Systems: All systems reviewed & are unremarkable except as noted in HPI and below Exam Narrative: GENERAL: obese, laying in bed in no acute distress, spouse is by the bedside HEAD: Normocephalic, atraumatic. EYES: EOMI. ENT: Nares clear, no rhinorrhea or epistaxis. Mucous membranes dry. Oropharynx without tonsillar hypertrophy exudate or other lesions. CHEST: Clear to auscultation. No respiratory distress. No wheezes rales or rhonchi HEART: Regular rate and rhythm. No murmur heard. Normal peripheral pulses. ABDOMEN: large round, tender to palpation, diminished bowel sounds. Ileal conduit present EXTREMITIES: Normal range of motion. No edema. SKIN: Warm, dry, no rash. NEURO: No focal deficits. Alert and oriented x3. PSYCH: Normal mood and affect Objective Data Vital Signs Vital Signs: Vital Signs - 24 hr 04/18/24 12:31 04/18/24 14:01 04/18/24 14:01 Temperature 97.7 F Pulse Rate 79 70 Respiratory Rate 20 20 Blood Pressure 184/89 H 165/83 H Pulse Oximetry 99 98 99 Oxygen Delivery Room Air Room Air Fraction of Inspired Oxygen 04/18/24 18:08 04/18/24 21:53 04/18/24 21:56 Temperature 99.1 F Pulse Rate 88 76 Respiratory Rate 18 20 Blood Pressure 144/95 H 134/84 Pulse Oximetry 99 95 Oxygen Delivery Autopap Fraction of Inspired Oxygen 04/18/24 21:56 04/18/24 21:58 04/18/24 22:05 Temperature Pulse Rate 87 Respiratory Rate 20 19 Blood Pressure Pulse Oximetry 96 Oxygen Delivery Room Air CPAP Fraction of Inspired Oxygen 04/18/24 22:07 04/18/24 21:00 04/19/24 03:32 Temperature Pulse Rate 87 Respiratory Rate 20 15 Blood Pressure Pulse Oximetry Oxygen Delivery Room Air CPAP Fraction of Inspired Oxygen 04/19/24 03:32 04/19/24 03:37 04/19/24 04:00 Temperature 97.7 F Pulse Rate 79 80 78 Respiratory Rate 15 18 20 Blood Pressure 127/72 Pulse Oximetry 96 Oxygen Delivery Fraction of Inspired Oxygen 04/19/24 08:01 04/19/24 08:01 04/19/24 08:01 Temperature Pulse Rate 76 Respiratory Rate 19 19 Blood Pressure Pulse Oximetry 94 Oxygen Delivery CPAP CPAP Fraction of Inspired Oxygen 04/19/24 08:07 04/19/24 08:00 Temperature 97.1 F L Pulse Rate 67 78 Respiratory Rate 20 18 Blood Pressure 116/64 Pulse Oximetry 96 Oxygen Delivery Fraction of Inspired Oxygen Intake/Output Intake/Output: Intake & Output 04/16/24 04/17/24 04/18/24 04/19/24 23:59 23:59 23:59 23:59 Intake Total 100 200 Output Total 700 Balance 100 -500 Meds/Results Medications: Active Medications Generic Name Dose Route Start Last Admin Trade Name Freq PRN Reason Stop Dose Admin Hydrocodone Bitart/Acetaminophen 1 tab 04/18/24 20:08 04/18/24 21:42 Hydrocodone/Acetaminophen (*Crx) 5-325 Mg Tablet PO 1 tab Q4H PRN Administration Pain Rated 4-6 Albuterol/Ipratropium 3 ml 04/19/24 00:00 04/19/24 08:01 Ipratropium 0.5 Mg/Albuterol Sulfate 2.5 Mg Ampul.Neb 3 Ml INHALATION 3 ml Q4HRT ANA Administration Alprazolam 0.25 mg 04/18/24 20:38 04/18/24 21:43 Alprazolam (*Crx) 0.25 Mg Tablet PO 0.25 mg TID PRN Administration anxiety Aspirin 81 mg 04/19/24 09:00 Aspirin 81 Mg Enteric Tablet PO DAILY [facility] Atorvastatin Calcium 10 mg 04/19/24 09:00 Atorvastatin 10 Mg Tablet PO DAILY [facility] Benzonatate 200 mg 04/18/24 20:20 04/18/24 21:42 Benzonatate 100 Mg Capsule PO 200 mg TID ANA Administration Enoxaparin Sodium 40 mg 04/19/24 09:00 Enoxaparin 40 Mg/0.4 Ml Syringe SUB-Q DAILY [facility] Escitalopram Oxalate 20 mg 04/19/24 09:00 Escitalopram Oxalate 10 Mg Tablet PO DAILY [facility] Furosemide 20 mg 04/19/24 09:00 Furosemide 20 Mg Tablet PO QAM [facility] Gabapentin 900 mg 04/18/24 20:45 04/18/24 21:43 Gabapentin 300 Mg Capsule PO 900 mg TID ANA Administration Meropenem 500 mg in 100 mls @ 200 mls/hr 04/19/24 02:00 04/19/24 03:00 IVPB Infused Q8H [facility] Infusion Lactated Ringer's 1,000 mls @ 75 mls/hr 04/18/24 22:30 04/19/24 04:29 Lr - Lactated Ringers Iv IV CONT 04/19/24 10:29 75 mls/hr .[id number] [facility] Administration Losartan Potassium 100 mg 04/19/24 09:00 Losartan Potassium 100 Mg Tablet PO DAILY [facility] Metoprolol Succinate 12.5 mg 04/19/24 09:00 Metoprolol Succinate Ext Rel 12.5 Mg Tabcr PO DAILY [facility] Olanzapine 5 mg 04/19/24 09:00 Olanzapine 5 Mg Tablet PO DAILY [facility] Ondansetron HCl 4 mg 04/18/24 22:01 04/18/24 22:26 Ondansetron Inj 4 Mg/2 Ml Vial IV PUSH 4 mg Q6H PRN Administration Nausea And Vomiting Prednisone 40 mg 04/19/24 08:00 Prednisone 20 Mg Tablet PO DAILY@0800 [facility] Ropinirole HCl 1 mg 04/18/24 20:50 04/18/24 21:42 Ropinirole Hcl 1 Mg Tablet PO 1 mg BID ANA Administration Zolpidem Tartrate 5 mg 04/18/24 21:00 04/18/24 21:43 Zolpidem Tartrate (*Crx) 5 Mg Tablet PO 5 mg QHS ANA Administration Radiology Results: ITS Impressions Chest X-Ray 04/18/24 15:14 IMPRESSION: No acute cardiopulmonary pathology. Abdomen/Pelvis CT 04/18/24 16:49 IMPRESSION: 1. Cystic areas in the tail of the pancreas unchanged. Atrophic pancreas. 2. 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 3. Hypodensities in the spleen which may be metastatic. Clinical correlation and follow-up advised. Labs Labs: Laboratory Results - last 24 hr 04/18/24 04/18/24 04/18/24 14:55 15:16 15:56 WBC 7.4 RBC 4.95 Hgb 13.9 Hct 40.6 MCV 82.0 MCH 28.1 MCHC 34.2 RDW 13.2 Plt Count 221 MPV 9.6 Immature Gran % (Auto) 0.4 Neut % (Auto) 60.4 Lymph % (Auto) 28.1 [place] % (Auto) 7.9 Eos % (Auto) 2.3 Baso % (Auto) 0.9 Lymph # (Auto) 2.09 [place] # (Auto) 0.6 Eos # (Auto) 0.2 Baso # (Auto) 0.1 Abs Immat Gran (auto) 0.03 Absolute Neuts (auto) 4.5 Absolute Nucleated RBC 0.000 Nucleated RBC % 0.0 PT 14.0 INR 1.1 APTT 27.9 Sodium 140 Potassium 3.8 Chloride 102 Carbon Dioxide 30 Anion Gap 8 BUN 12 Creatinine 0.50 L Estim Creat Clear Calc 125 Estimated GFR > 60 Glucose 88 Lactic Acid 1.2 Calcium 8.6 Magnesium Total Bilirubin 1.1 AST 25 ALT 16 Alkaline Phosphatase 103 Troponin I < 0.012 Total Protein 8.0 Albumin 4.1 Urine Color Yellow Urine Appearance Cloudy H Urine pH 6.0 Ur Specific [place] 1.009 Urine Protein Negative Urine Glucose (UA) Negative Urine Ketones Negative Ur Blood (Man) 2+ H Urine Nitrate Positive H Urine Bilirubin Negative Urine Urobilinogen 1.0 Leukocyte Esterase Rfl 3+ H Urine RBC 3-5 H Urine WBC 11-20 H Ur Squamous Epith Cells Occasional Urine Bacteria 2+ H Urine Casts 0-2 Influenza A (RT-PCR) Negative Influenza B (RT-PCR) Negative RSV (RT-PCR) Negative SARS-CoV-2 RNA (RT-PCR) Negative Blood Type AB Negative Antibody Screen Negative 04/19/24 06:05 WBC 7.3 RBC 4.62 Hgb 13.0 Hct 38.3 MCV 82.9 MCH 28.1 MCHC 33.9 RDW 13.2 Plt Count 220 MPV 10.0 Immature Gran % (Auto) 1.0 H Neut % (Auto) 85.9 H Lymph % (Auto) 11.4 L [place] % (Auto) 1.2 L Eos % (Auto) 0.1 Baso % (Auto) 0.4 Lymph # (Auto) 0.84 L [place] # (Auto) 0.1 Eos # (Auto) 0.0 Baso # (Auto) 0.0 Abs Immat Gran (auto) 0.07 H Absolute Neuts (auto) 6.3 Absolute Nucleated RBC 0.000 Nucleated RBC % 0.0 PT INR APTT Sodium 137 Potassium 3.9 Chloride 101 Carbon Dioxide 25 Anion Gap 11 BUN 10 Creatinine 0.50 L Estim Creat Clear Calc 125 Estimated GFR > 60 Glucose 198 H Lactic Acid Calcium 8.7 Magnesium 2.3 Total Bilirubin 0.6 AST 18 ALT 17 Alkaline Phosphatase 96 Troponin I Total Protein 8.0 Albumin 4.1 Urine Color Urine Appearance Urine pH Ur Specific [place] Urine Protein Urine Glucose (UA) Urine Ketones Ur Blood (Man) Urine Nitrate Urine Bilirubin Urine Urobilinogen Leukocyte Esterase Rfl Urine RBC Urine WBC Ur Squamous Epith Cells Urine Bacteria Urine Casts Influenza A (RT-PCR) Influenza B (RT-PCR) RSV (RT-PCR) SARS-CoV-2 RNA (RT-PCR) Blood Type Antibody Screen Quality VTE Prophylaxis VTE prophylaxis: mechanical ordered and pharmacologic ordered Hospitalist MIPS Advance Care Plan I have confirmed that the patient's Advanced Care Plan is present, code status is documented, or surrogate decision maker is listed in patient medical record.: Yes Medication Reconciliation I have utilized all available resources to obtain, update and review the patients current medications (includes all prescriptions, OTC, herbals, cannabis, and nutritional supplements).: Yes
[2024-04-19] MEDS: HYDROcodone/acetaminophen (*CRX) 5-325 MG TABLET 1 TAB PO ×2 (09:40→21:14)
[2024-04-19] MEDS: ALPRAZolam (*CRX) 0.25 MG TABLET PO (09:40)
[2024-04-19] MEDS: BENZONATATE 100 MG CAPSULE 200 MG PO ×3 (09:40→17:36)
[2024-04-19] MEDS: OLANZapine 5 MG TABLET PO (09:41)
[2024-04-19] MEDS: GABAPENTIN 300 MG CAPSULE 900 MG PO ×3 (09:41→17:36)
[2024-04-19] MEDS: ATORVASTATIN 10 MG TABLET PO (09:41)
[2024-04-19] MEDS: ASPIRIN 81 MG ENTERIC TABLET PO (09:41)
[2024-04-19] MEDS: predniSONE 20 MG TABLET 40 MG PO (09:41)
[2024-04-19] MEDS: LOSARTAN POTASSIUM 100 MG TABLET PO (09:41)
[2024-04-19] MEDS: FUROSEMIDE 20 MG TABLET PO (09:41)
[2024-04-19] MEDS: METOPROLOL SUCCINATE EXT REL 12.5 MG TABCR PO (09:42)
[2024-04-19] MEDS: rOPINIRole HCL 1 MG TABLET PO ×2 (09:42→17:35)
[2024-04-19] MEDS: ESCITALOPRAM OXALATE 10 MG TABLET 20 MG PO (10:27)
[2024-04-19] MEDS: ENOXAPARIN 40 MG/0.4 ML SYRINGE SUB-Q (12:28)
[2024-04-19 16:33] LABS: Platelet Estimate Adequate (Adequate)
[2024-04-19 16:34] LABS: Smudge Cells FEW
[2024-04-19 16:35] LABS: Schistocytes None Seen
[2024-04-19 17:07] LABS: INR 1.1; Prothrombin Time 14.8 Seconds (11.1-14.7)
[2024-04-19 17:08] LABS: Partial Thromboplastin Time 25.9 Seconds (22.3-36.8)
[2024-04-19 17:13] LABS: Uric Acid 5.5 mg/dL (2.5-7.5)
[2024-04-19] MEDS: polyethylene glycoL 3350 17 GM POWD.PACK PO (17:35)
[2024-04-19] MEDS: SENNA/DOCUSATE SODIUM TABLET 1 TAB PO (17:35)
[2024-04-19] MEDS: BISACODYL 10 MG SUPPOSITORY RECTAL (17:36)
[2024-04-19] MEDS: LACTULOSE 20 GM/30 ML UDC PO (17:36)
[2024-04-19 17:54] LABS: HIV 1/2 Ab P24 Ag Result Negative (Negative)
[2024-04-19] MEDS: ZOLPIDEM TARTRATE (*CRX) 5 MG TABLET PO (20:56)
--- NOTE | 2024-04-19 21:38 | ECG_ITS ---
Test Date: 2024-04-19 21:54:28 Measurements Intervals [place] Rate: 92 P: 54 [place]: 212 QRS: 38 QRSD: 108 T: 12 QT: 391 QTc: 485 Interpretive Statements SINUS RHYTHM WITH FIRST DEGREE AV BLOCK WITH OCCASIONAL VENTRICULAR PREMATURE COMPLEXES NONSPECIFIC T-WAVE ABNORMALITY Compared to ECG 04/18/2024 12:38:06 NO SIGNIFICANT CHANGES Electronically Signed On 04-20-2024 09:41:58 CDT by Cody Lorenzo M.D.
[2024-04-19] MEDS: MORPHINE SULFATE (*CRX) 2 MG/ML INJ 1 MG IV PUSH (21:49)
[2024-04-19 23:06] LABS: Troponin I < 0.012 ng/mL (0.000-0.034)
[2024-04-20] VITALS (8 sets, daily range): BP systolic 111–149; BP diastolic 66–100; PULSE 65–75; RESP 16–29; TEMP 35.8–37.1; O2SAT 91–98
[2024-04-20 01:23] LABS: Troponin I < 0.012 ng/mL (0.000-0.034)
[2024-04-20] MEDS: MEROPENEM 500 MG/NS 100 ML 500 MG/100 ML BAG 200 MG IVPB ×2 (02:34→11:02)
[2024-04-20 03:50] LABS: Basophils Percent Auto 0.2 % (0.2-1.2); Eosinophils Percent Auto 0.1 % (0-4.4); Hematocrit 35.7 % (37.0-47.0); Immature Granulocyte Absolute 0.16 K/mm3 (0.00-0.031); Immature Granulocyte Percent A 1.6 % (0-0.5); Lymphocytes Percent Auto 15.4 % (18.3-44.2); Mean Corpuscular HGB Conc 33.6 g/dl (32-36); Mean Corpuscular Hemoglobin 28.2 pg (26-34); Monocytes Absolute Auto 0.8 K/mm3 (0.1-0.6); Monocytes Percent Auto 8.3 % (2.6-8.5); Neutrophils Absolute Auto 7.2 K/mm3 (1.3-6.7); Neutrophils Percent Auto 74.4 % (45.5-73.1); Platelet Count Result 259 k/mm3 (150-375); Red Blood Count 4.25 M/mm3 (4.2-5.4); Red Cell Distribution Width 13.3 % (11.5-14.5); White Blood Count 9.7 K/mm3 (4.5-10.0)
[2024-04-20 04:02] LABS: Alanine Aminotransferase 15 U/L (6-35); Albumin Level 3.7 g/dL (3.5-5.1); Alkaline Phosphatase 82 U/L (38-126); Anion Gap 10 mmol/L (4-12); Aspartate Amino Transferase 15 U/L (14-36); Bilirubin,Total 0.5 mg/dL (0.2-1.3); Blood Urea Nitrogen 9 mg/dL (7-17); Calcium 8.5 mg/dL (8.4-10.2); Carbon Dioxide 26 mmol/L (22-30); Chloride 100 mmol/L (98-107); Estimated CRCL calculation 125 ml/min; Estimated Glomerular Filt Rate > 60; Glucose 165 mg/dL (65-110); Potassium 3.5 mmol/L (3.4-5.0); Sodium 136 mmol/L (137-145)
[2024-04-20 04:18] LABS: Troponin I < 0.012 ng/mL (0.000-0.034)
[2024-04-20] MEDS: HYDROcodone/acetaminophen (*CRX) 5-325 MG TABLET 1 TAB PO ×2 (04:45→16:56)
[2024-04-20] MEDS: METOPROLOL SUCCINATE EXT REL 12.5 MG TABCR PO (08:38)
[2024-04-20] MEDS: ATORVASTATIN 10 MG TABLET PO (08:38)
[2024-04-20] MEDS: ASPIRIN 81 MG ENTERIC TABLET PO (08:38)
[2024-04-20] MEDS: ESCITALOPRAM OXALATE 10 MG TABLET 20 MG PO (08:39)
[2024-04-20] MEDS: BENZONATATE 100 MG CAPSULE 200 MG PO ×3 (08:39→16:57)
[2024-04-20] MEDS: ALPRAZolam (*CRX) 0.25 MG TABLET PO ×2 (08:39→20:57)
[2024-04-20] MEDS: LOSARTAN POTASSIUM 100 MG TABLET PO (08:39)
[2024-04-20] MEDS: rOPINIRole HCL 1 MG TABLET PO ×2 (08:39→16:58)
[2024-04-20] MEDS: GABAPENTIN 300 MG CAPSULE 900 MG PO ×3 (08:39→16:57)
[2024-04-20] MEDS: BACLOFEN 10 MG TABLET 20 MG PO (08:39)
[2024-04-20] MEDS: OLANZapine 5 MG TABLET PO (08:39)
[2024-04-20] MEDS: FUROSEMIDE 20 MG TABLET PO (08:40)
[2024-04-20] MEDS: predniSONE 20 MG TABLET 40 MG PO (08:40)
[2024-04-20] MEDS: ONDANSETRON INJ 4 MG/2 ML VIAL IV PUSH (08:42)
[2024-04-20] MEDS: ENOXAPARIN 40 MG/0.4 ML SYRINGE SUB-Q (08:42)
--- NOTE | 2024-04-20 09:06 | P.PNIM_ITS ---
Progress Note: A&P Assessment and Plan (1) Acute UTI: Code(s): N39.0 - Urinary tract infection, site not specified Status: Acute Assessment and Plan: ileal conduit present -continue meropenem IVP q.8 -urine cultures pending Blood cultures pending no growth to date Legionella culture pending (2) Splenomegaly: Code(s): R16.1 - Splenomegaly, not elsewhere classified Status: Acute Assessment and Plan: Measuring 137.[address] Unable to do MRCP here due to hospital policy, patient has implanted nerve stimulator Lab work pending: FABIEN, HIV negative, PTT WDL, INR WDL, uric acid WDL, blood cultures NGTD Oncology consult will see patient tomorrow recommending CT chest to look for metastases CT chest pending (3) Cough: Code(s): R05.9 - Cough, unspecified Status: Acute Assessment and Plan: -chronic ongoing for 10 days -supportive therapy -benzonatate 200 mg t.i.d. p.o. as needed for cough -ipratropium/albuterol inhalation q.4 hours as needed for wheezing and cough -start prednisone 40 mg p.o. daily x5 doses -sputum culture pending Respiratory panel negative, chest x-ray with no acute findings Respiratory workup negative (4) Pancreas cyst: Code(s): K86.2 - Cyst of pancreas Status: Acute Assessment and Plan: As evidence by abdominal CT -recommends follow-up MRC Recommend patient follow-up, unable to do MRI at this location due to implanted stimulator (5) Anxiety: Code(s): F41.9 - Anxiety disorder, unspecified Status: Acute Assessment and Plan: -continue home medication Xanax 0.25, p.o. t.i.d. p.r.n. anxiety (6) Sleep apnea: Code(s): G47.30 - Sleep apnea, unspecified Status: Acute Assessment and Plan: d/c night use if pt has n/v -otherwise use home settings nightly (7) Constipation: Code(s): K59.00 - Constipation, unspecified Status: Acute Assessment and Plan: Severe constipation seen on CT Will likely need enema Start on daily suppositories, rectal stimulation and aggressive bowel protocol currently, patient will need to be discharged on it Lactulose enema x1 Plan Continue home medications: As ordered VTE Prophylaxis: SCDs DIET: NPO after midnight for test Anticipated hospital stay: > 2 days < 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 Patient found to have UTI, splenomegaly and a cyst on her pancreas. HIV negative. Spoke with Oncology recommendations however CT chest to look for any metastases, he will see her tomorrow. Review of Systems Review of Systems: All systems reviewed & are unremarkable except as noted in HPI and below Exam Narrative: GENERAL: obese, laying in bed in no acute distress, spouse is by the bedside HEAD: Normocephalic, atraumatic. EYES: EOMI. ENT: Nares clear, no rhinorrhea or epistaxis. Mucous membranes dry. Oropharynx without tonsillar hypertrophy exudate or other lesions. CHEST: Clear to auscultation. No respiratory distress. No wheezes rales or rhonchi HEART: Regular rate and rhythm. No murmur heard. Normal peripheral pulses. ABDOMEN: large round, the the left upper abdomen on tender to palpation, diminished bowel sounds. Ileal conduit present EXTREMITIES: Normal range of motion. No edema. SKIN: Warm, dry, no rash. NEURO: No focal deficits. Alert and oriented x3. PSYCH: Normal mood and affect Objective Data Vital Signs Vital Signs: Vital Signs - 24 hr 04/19/24 09:42 04/19/24 12:00 04/19/24 16:00 Temperature 97.8 F 97.4 F L Pulse Rate 80 76 78 Respiratory Rate 18 18 Blood Pressure 99/64 L 104/62 Pulse Oximetry 98 98 Oxygen Delivery 04/19/24 20:55 04/19/24 21:25 04/19/24 21:30 Temperature 98.4 F 97.8 F Pulse Rate 85 93 Respiratory Rate 18 18 Blood Pressure 149/80 H 168/99 H 158/96 H Pulse Oximetry 95 98 Oxygen Delivery 04/19/24 21:30 04/19/24 23:50 04/19/24 23:00 Temperature 97.8 F 98.9 F Pulse Rate 93 86 Respiratory Rate 18 18 17 Blood Pressure 158/96 H 132/70 Pulse Oximetry 98 96 Oxygen Delivery Room Air CPAP 04/20/24 06:00 04/20/24 08:38 04/20/24 08:43 Temperature 98.2 F Pulse Rate 65 75 Respiratory Rate 16 Blood Pressure 111/66 Pulse Oximetry 97 95 Oxygen Delivery Room Air 04/20/24 08:00 Temperature 97.7 F Pulse Rate 72 Respiratory Rate 20 Blood Pressure 132/78 Pulse Oximetry 95 Oxygen Delivery Intake/Output Intake/Output: Intake & Output 04/17/24 04/18/24 04/19/24 04/20/24 23:59 23:59 23:59 23:59 Intake Total 100 3840 1670 Output Total 4200 850 Balance 100 -360 820 Meds/Results Medications: Active Medications Generic Name Dose Route Start Last Admin Trade Name Freq PRN Reason Stop Dose Admin Acetaminophen 650 mg 04/19/24 15:52 Acetaminophen 325 Mg Tablet PO Q4H PRN Mild Pain (1-3) or Fever Hydrocodone Bitart/Acetaminophen 1 tab 04/19/24 16:01 04/20/24 04:45 Hydrocodone/Acetaminophen (*Crx) 5-325 Mg Tablet PO 1 tab Q8H PRN Administration PAIN RATED 4-6 Albuterol/Ipratropium 3 ml 04/19/24 09:52 Ipratropium 0.5 Mg/Albuterol Sulfate 2.5 Mg Ampul.Neb 3 Ml INHALATION Q4HRT PRN Wheezing Alprazolam 0.25 mg 04/18/24 20:38 04/20/24 08:39 Alprazolam (*Crx) 0.25 Mg Tablet PO 0.25 mg TID PRN Administration anxiety Aspirin 81 mg 04/19/24 09:00 04/20/24 08:38 Aspirin 81 Mg Enteric Tablet PO 81 mg DAILY ANA Administration Atorvastatin Calcium 10 mg 04/19/24 09:00 04/20/24 08:38 Atorvastatin 10 Mg Tablet PO 10 mg DAILY ANA Administration Baclofen 20 mg 04/19/24 16:01 04/20/24 08:39 Baclofen 10 Mg Tablet PO 20 mg TID PRN Administration muscle spasm Benzonatate 200 mg 04/18/24 20:20 04/20/24 08:39 Benzonatate 100 Mg Capsule PO 200 mg TID ANA Administration Bisacodyl 10 mg 04/19/24 16:05 04/19/24 17:36 Bisacodyl 10 Mg Suppository RECTAL 10 mg QAM ANA Administration Enoxaparin Sodium 40 mg 04/19/24 09:00 04/20/24 08:42 Enoxaparin 40 Mg/0.4 Ml Syringe SUB-Q 40 mg DAILY ANA Administration Escitalopram Oxalate 20 mg 04/19/24 09:00 04/20/24 08:39 Escitalopram Oxalate 10 Mg Tablet PO 20 mg DAILY ANA Administration Furosemide 20 mg 04/19/24 09:00 04/20/24 08:40 Furosemide 20 Mg Tablet PO 20 mg QAM ANA Administration Gabapentin 900 mg 04/18/24 20:45 04/20/24 08:39 Gabapentin 300 Mg Capsule PO 900 mg TID ANA Administration Meropenem 500 mg in 100 mls @ 200 mls/hr 04/19/24 02:00 04/20/24 03:04 IVPB Infused Q8H ANA Infusion Lactulose 20 gm 04/19/24 16:00 04/19/24 17:36 Lactulose 20 Gm/30 Ml Udc PO 20 gm QAM ANA Administration Losartan Potassium 100 mg 04/19/24 09:00 04/20/24 08:39 Losartan Potassium 100 Mg Tablet PO 100 mg DAILY ANA Administration Metoprolol Succinate 12.5 mg 04/19/24 09:00 04/20/24 08:38 Metoprolol Succinate Ext Rel 12.5 Mg Tabcr PO 12.5 mg DAILY ANA Administration Olanzapine 5 mg 04/19/24 09:00 04/20/24 08:39 Olanzapine 5 Mg Tablet PO 5 mg DAILY ANA Administration Ondansetron HCl 4 mg 04/18/24 22:01 04/20/24 08:42 Ondansetron Inj 4 Mg/2 Ml Vial IV PUSH 4 mg Q6H PRN Administration Nausea And Vomiting Polyethylene Glycol 17 gm 04/19/24 17:00 04/19/24 17:35 Polyethylene Glycol 3350 17 Gm Powd.Pack PO 17 gm BID ANA Administration Prednisone 40 mg 04/19/24 08:00 04/20/24 08:40 Prednisone 20 Mg Tablet PO 40 mg DAILY@0800 ANA Administration Ropinirole HCl 1 mg 04/18/24 20:50 04/20/24 08:39 Ropinirole Hcl 1 Mg Tablet PO 1 mg BID ANA Administration Senna/Docusate Sodium 1 tab 04/19/24 17:00 04/19/24 17:35 Senna/Docusate Sodium Tablet PO 1 tab BID ANA Administration Zolpidem Tartrate 5 mg 04/18/24 21:00 04/19/24 20:56 Zolpidem Tartrate (*Crx) 5 Mg Tablet PO 5 mg QHS ANA Administration Radiology Results: ITS Impressions Chest X-Ray 04/18/24 15:14 IMPRESSION: No acute cardiopulmonary pathology. Abdomen/Pelvis CT 04/18/24 16:49 IMPRESSION: 1. Cystic areas in the tail of the pancreas unchanged. Atrophic pancreas. 2. 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 3. Hypodensities in the spleen which may be metastatic. Clinical correlation and follow-up advised. Labs Labs: Laboratory Results - last 24 hr 04/19/24 04/19/24 04/19/24 06:05 16:12 22:30 WBC RBC Hgb Hct MCV MCH MCHC RDW Plt Count MPV Immature Gran % (Auto) Neut % (Auto) Lymph % (Auto) [place] % (Auto) Eos % (Auto) Baso % (Auto) Lymph # (Auto) [place] # (Auto) Eos # (Auto) Baso # (Auto) Abs Immat Gran (auto) Absolute Neuts (auto) Absolute Nucleated RBC Nucleated RBC % Smudge Cells Few Platelet Estimate Adequate Schistocytes None seen PT 14.8 H INR 1.1 APTT 25.9 Sodium Potassium Chloride Carbon Dioxide Anion Gap BUN Creatinine Estim Creat Clear Calc Estimated GFR Glucose Uric Acid 5.5 Calcium Total Bilirubin AST ALT Alkaline Phosphatase Troponin I < 0.012 Total Protein Albumin HIV 1&2 Ab/P24 Ag 4thGn Negative 04/20/24 04/20/24 04/20/24 00:49 03:40 03:45 WBC 9.7 RBC 4.25 Hgb 12.0 Hct 35.7 L MCV 84.0 MCH 28.2 MCHC 33.6 RDW 13.3 Plt Count 259 MPV 10.0 Immature Gran % (Auto) 1.6 H Neut % (Auto) 74.4 H Lymph % (Auto) 15.4 L [place] % (Auto) 8.3 Eos % (Auto) 0.1 Baso % (Auto) 0.2 Lymph # (Auto) 1.50 [place] # (Auto) 0.8 H Eos # (Auto) 0.0 Baso # (Auto) 0.0 Abs Immat Gran (auto) 0.16 H Absolute Neuts (auto) 7.2 H Absolute Nucleated RBC 0.000 Nucleated RBC % 0.0 Smudge Cells Platelet Estimate Schistocytes PT INR APTT Sodium 136 L Potassium 3.5 Chloride 100 Carbon Dioxide 26 Anion Gap 10 BUN 9 Creatinine 0.50 L Estim Creat Clear Calc 125 Estimated GFR > 60 Glucose 165 H Uric Acid Calcium 8.5 Total Bilirubin 0.5 AST 15 ALT 15 Alkaline Phosphatase 82 Troponin I < 0.012 < 0.012 Total Protein 7.0 Albumin 3.7 HIV 1&2 Ab/P24 Ag 4thGn Imaging Radiologist's impression: CT abdomen pelvis IMPRESSION: 1. Cystic areas in the tail of the pancreas unchanged. Atrophic pancreas. 2. 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 3. Hypodensities in the spleen which may be metastatic. Clinical correlation and follow-up advised ADDENDUMThe spleen measures 13.6 cm. The largest lesion measures 0.8 cm. Quality VTE Prophylaxis VTE prophylaxis: mechanical ordered and pharmacologic ordered
--- NOTE | 2024-04-20 15:07 | PCWOUND ---
WOCN NOTE Patient had questions concerning stoma appearance, mucus from stoma, and ostomy supply use. Answered all questions and patient stated satisfaction. Stoma is red, moist, and healthy in appearance. mucus and urine is normal looking at this time.
[2024-04-20] MEDS: polyethylene glycoL 3350 17 GM POWD.PACK PO (16:57)
[2024-04-20] MEDS: SENNA/DOCUSATE SODIUM TABLET 1 TAB PO (16:58)
--- NOTE | 2024-04-20 17:46 | ECG_ITS ---
Test Date: 2024-04-20 17:54:36 Measurements Intervals [place] Rate: 81 P: 46 [place]: 172 QRS: 32 QRSD: 97 T: 37 QT: 391 QTc: 455 Interpretive Statements SINUS RHYTHM WITH OCCASIONAL VENTRICULAR PREMATURE COMPLEXES NONSPECIFIC T-WAVE ABNORMALITY ABNORMAL ECG Compared to ECG 04/19/2024 21:54:28 First degree AV block no longer present T-wave abnormality no longer present Electronically Signed On 04-21-2024 10:17:43 CDT by Arthur Mason M.D.
[2024-04-20] MEDS: LACTULOSE ENEMA 200 GM/1,000 ML ENEMA RECTAL (18:21)
[2024-04-20] MEDS: levoFLOXacin 750 MG TABLET PO (20:47)
[2024-04-20] MEDS: ZOLPIDEM TARTRATE (*CRX) 5 MG TABLET PO (20:47)
[2024-04-21] VITALS (10 sets, daily range): BP systolic 114–142; BP diastolic 57–83; PULSE 71–77; RESP 11–23; TEMP 35.9–36.9; O2SAT 94–99
[2024-04-21] MEDS: LACTULOSE 20 GM/30 ML UDC PO ×2 (05:57→14:19)
[2024-04-21 06:53] LABS: Basophils Absolute Auto 0.1 K/mm3 (0.0-0.1); Basophils Percent Auto 0.6 % (0.2-1.2); Eosinophils Absolute Auto 0.2 K/mm3 (0-0.3); Eosinophils Percent Auto 1.5 % (0-4.4); Hematocrit 39.4 % (37.0-47.0); Immature Granulocyte Absolute 0.18 K/mm3 (0.00-0.031); Immature Granulocyte Percent A 1.8 % (0-0.5); Lymphocytes Absolute Auto 2.63 K/mm3 (0.9-3.2); Lymphocytes Percent Auto 26.5 % (18.3-44.2); Mean Corpuscular Hemoglobin 28.1 pg (26-34); Mean Corpuscular Volume 85.3 fl (80-100); Mean Platelet Volume 10.1 fl (7.4-10.4); Monocytes Absolute Auto 0.8 K/mm3 (0.1-0.6); Monocytes Percent Auto 7.7 % (2.6-8.5); Neutrophils Absolute Auto 6.1 K/mm3 (1.3-6.7); Neutrophils Percent Auto 61.9 % (45.5-73.1); Platelet Count Result 238 k/mm3 (150-375); Red Blood Count 4.62 M/mm3 (4.2-5.4); Red Cell Distribution Width 13.2 % (11.5-14.5); White Blood Count 9.9 K/mm3 (4.5-10.0)
[2024-04-21 07:08] LABS: Alanine Aminotransferase 15 U/L (6-35); Albumin Level 3.9 g/dL (3.5-5.1); Alkaline Phosphatase 79 U/L (38-126); Anion Gap 9 mmol/L (4-12); Aspartate Amino Transferase 17 U/L (14-36); Bilirubin,Total 0.4 mg/dL (0.2-1.3); Blood Urea Nitrogen 12 mg/dL (7-17); Calcium 8.8 mg/dL (8.4-10.2); Carbon Dioxide 31 mmol/L (22-30); Chloride 100 mmol/L (98-107); Estimated CRCL calculation 106 ml/min; Estimated Glomerular Filt Rate > 60; Glucose 95 mg/dL (65-110); Potassium 3.2 mmol/L (3.4-5.0); Sodium 140 mmol/L (137-145)
[2024-04-21] MEDS: FUROSEMIDE 20 MG TABLET PO (08:32)
[2024-04-21] MEDS: GABAPENTIN 300 MG CAPSULE 900 MG PO ×3 (08:32→16:36)
[2024-04-21] MEDS: rOPINIRole HCL 1 MG TABLET PO ×2 (08:32→16:36)
[2024-04-21] MEDS: predniSONE 20 MG TABLET 40 MG PO (08:32)
[2024-04-21] MEDS: LOSARTAN POTASSIUM 100 MG TABLET PO (08:33)
[2024-04-21] MEDS: ASPIRIN 81 MG ENTERIC TABLET PO (08:33)
[2024-04-21] MEDS: BENZONATATE 100 MG CAPSULE 200 MG PO ×3 (08:33→16:35)
[2024-04-21] MEDS: SENNA/DOCUSATE SODIUM TABLET 1 TAB PO ×2 (08:33→16:36)
[2024-04-21] MEDS: BISACODYL 10 MG SUPPOSITORY RECTAL (08:33)
[2024-04-21] MEDS: ATORVASTATIN 10 MG TABLET PO (08:33)
[2024-04-21] MEDS: polyethylene glycoL 3350 17 GM POWD.PACK PO ×2 (08:34→16:36)
[2024-04-21] MEDS: METOPROLOL SUCCINATE EXT REL 12.5 MG TABCR PO (08:34)
[2024-04-21] MEDS: OLANZapine 5 MG TABLET PO (08:34)
[2024-04-21] MEDS: ENOXAPARIN 40 MG/0.4 ML SYRINGE SUB-Q (08:35)
[2024-04-21] MEDS: ESCITALOPRAM OXALATE 10 MG TABLET 20 MG PO (08:43)
[2024-04-21] MEDS: HYDROcodone/acetaminophen (*CRX) 5-325 MG TABLET 1 TAB PO ×2 (09:05→22:56)
[2024-04-21 16:33] LABS: Pneumococcal Antigen Urine NOT DETECTED
--- NOTE | 2024-04-21 17:18 | P.PNIM_ITS ---
Progress Note: A&P Assessment and Plan (1) Acute UTI: Code(s): N39.0 - Urinary tract infection, site not specified Status: Acute Assessment and Plan: * Urine culture negative on final read * 1st set of blood cultures Blood cultures showing no growth to date on preliminary read * 2nd set of blood cultures showing no growth to date on preliminary read * Levaquin discontinued * Legionella culture still pending (2) Splenomegaly: Code(s): R16.1 - Splenomegaly, not elsewhere classified Status: Acute Assessment and Plan: * Appears to be chronic as her chest CT today showed no evidence of malignancy, the sub cm splenic mass is described on 04/18/2024 stable from 03/20/2023 likely granulomatous disease * FABIEN negative * HIV negative * Oncology following (3) Cough: Code(s): R05.9 - Cough, unspecified Status: Acute Assessment and Plan: * chronic ongoing for 10 days * supportive therapy * Continue benzonatate 200 mg t.i.d. p.o. as needed for cough * Continue ipratropium/albuterol inhalation q.4 hours as needed for wheezing and cough * Continue prednisone 40 mg for another 2 day * Sputum culture negative * Respiratory panel negative for influenza a and B, RSV, COVID (4) Pancreas cyst: Code(s): K86.2 - Cyst of pancreas Status: Acute Assessment and Plan: * CT of the abdomen and pelvis showed a cystic area in the tail of the pancreas * Will need MRCP however we are unable to complete this while here as she has an implanted spine stimulator in place and is contraindicated for our facility. She will need to follow up on an outpatient basis as this was an incidental finding. (5) Anxiety: Code(s): F41.9 - Anxiety disorder, unspecified Status: Acute Assessment and Plan: * Continue Xanax (6) Sleep apnea: Code(s): G47.30 - Sleep apnea, unspecified Status: Acute Assessment and Plan: * Continue CPAP at night (7) Constipation: Code(s): K59.00 - Constipation, unspecified Status: Acute Assessment and Plan: * Severe constipation seen on CT * Will continue with an enema today * KUB showing multiple loops of air opacified non dilated small and large bowel, air noted in the cecum, no constipation seen * Simethicone ordered for gas pain * Likely can discharge in the morning (8) Hypokalemia: Code(s): E87.6 - Hypokalemia Status: Acute Assessment and Plan: * Potassium 3.2 today * 40 mEq of potassium given * Continue to trend Time Spent With Patient Time with patient: 25 - 35 minutes Subjective Date/time seen: 04/21/24 17:18 Interval history: Interval history: This is a 58-year-old female who presented to the hospital on 04/18/2024 with generalized weakness and ongoing for the past 10 days. She has reported reduced urine output from her ileal conduit as well as blood in her stool for the past couple of days with associated left flank pain that has been ongoing. Workup in the hospital included a chest x-ray which was negative. An abdomen pelvis CT which showed cystic areas in the tail of the pancreas unchanged, atrophy back pancreas, left ileal conduit with status post cystectomy, hypodensities in the spleen which may be metastatic. Chest CT was negative for any malignancy. The sub cm splenic masses described on 04/18/2024 are stable from 03/20/2023 and likely granulomatous disease. Initial labs were essentially unremarkable with a normal lactic acid and troponin was negative x3. UA was obtained which showed cloudy urine appearance, 2+ urine blood, positive nitrate, 3+ leukocyte, 3-5 urine RBC, 11-20 urine WBC, 2+ urine bacteria. FABIEN screen was negative. HIV was negative. Urine strep was negative. Respiratory panel was negative for influenza a and B, RSV, COVID. Legionella culture is still pending. Blood cultures were obtained and are still currently showing no growth to date on preliminary read. Sputum culture was negative. First set of blood cultures are still showing no growth to date on preliminary read. Urine culture was negative for bacteria. Patient was started on Levaquin initially and was stopped today. Subjective: Patient denies any fever, chills, nausea, vomiting, chest pain, shortness a breath. She does endorse left sided abdominal pain, left flank pain which she reports as gas pain. She still rates her pain as moderate to severe and requesting lactulose while I was in the room. Labs and imaging reviewed. Review of Systems Review of Systems: All systems reviewed & are unremarkable except as noted in HPI and below Constitutional: Constitutional: Reports as per HPI and Reports no additional constitutional complaints Eyes: Eyes: Reports as per HPI and Reports no additional eye complaints ENT: Reports system reviewed and no additional complaints, except as documented and Reports as per HPI Cardiovascular: Cardiovascular: Reports as per HPI and Reports no additional cardiovascular complaints Respiratory: Respiratory: Reports as per HPI and Reports no additional respiratory complaints Gastrointestinal: Gastrointestinal: Reports as per HPI and Reports no additional gastrointestinal complaints Genitourinary: Genitourinary: Reports no additional female genitourinary complaints and Reports as per HPI Musculoskeletal: Musculoskeletal: Reports no additional musculoskeletal complaints and Reports as per HPI Integumentary/Breasts: Skin/Breast: Reports system reviewed and no additional complaints, except as docu and Reports as per HPI Neurologic: Reports system reviewed and no additional complaints, except as documented and Reports as per HPI Psychiatric: Psychiatric: Reports no additional psychiatric complaints and Rep orts as per HPI Exam Narrative: General: In no acute distress, well nourished Head: atraumatic, no encephalopathy Eyes: EOMI, PERRLA, sclera clear ENT: moist mucous membranes, nasal passages clear Neck: supple, no JVD, no adenopathy, trachea midline Cardiac: Normal S1 and S2. No murmur, gallops or friction rubs, peripheral pulses intact. Respiratory: Lungs clear to auscultation, no adventitious lung sounds, currently on room air Gastrointestinal: soft, non-distended, tender to palpation left upper quadrant to lower quadrant and left flank pain, normoactive bowel sounds. She is passing gas : Ileal conduit to drainage bag Extremities: moves all extremities well, no edema Skin: clean, dry, intact. No wounds or lesions. Neuro: Alert and oriented x4, cranial nerves intact, no neuro deficits. Psych: normal mood, normal affect, interactive Objective Data Vital Signs Vital Signs: Vital Signs - 24 hr 04/20/24 20:00 04/20/24 20:15 04/20/24 21:59 Temperature 98.7 F Pulse Rate 72 Respiratory Rate 18 29 H Blood Pressure 138/92 H Pulse Oximetry 98 Oxygen Delivery Room Air BiPAP 04/21/24 00:15 04/21/24 02:32 04/21/24 05:30 Temperature 97.6 F 98.5 F Pulse Rate 74 71 Respiratory Rate 16 11 L 16 Blood Pressure 114/57 L 116/81 Pulse Oximetry 99 99 Oxygen Delivery BiPAP 04/21/24 08:05 04/21/24 08:34 04/21/24 08:00 Temperature 96.7 F L Pulse Rate 71 73 Respiratory Rate 18 Blood Pressure 134/80 Pulse Oximetry 98 97 Oxygen Delivery Room Air 04/21/24 08:00 04/21/24 12:00 04/21/24 16:00 Temperature 97.2 F L 96.9 F L Pulse Rate 71 76 Respiratory Rate 20 18 Blood Pressure 129/75 141/83 H Pulse Oximetry 96 95 Oxygen Delivery Room Air Intake/Output Intake/Output: Intake & Output 04/18/24 04/19/24 04/20/24 04/21/24 23:59 23:59 23:59 23:59 Intake Total 100 3840 3130 3563 Output Total 4200 5650 4050 Balance 016 -491 -0712 -102 Meds/Results Medications: Active Medications Generic Name Dose Route Start Last Admin Trade Name Freq PRN Reason Stop Dose Admin Acetaminophen 650 mg 04/19/24 15:52 Acetaminophen 325 Mg Tablet PO Q4H PRN Mild Pain (1-3) or Fever Hydrocodone Bitart/Acetaminophen 1 tab 04/19/24 16:01 04/21/24 09:05 Hydrocodone/Acetaminophen (*Crx) 5-325 Mg Tablet PO 1 tab Q8H PRN Administration PAIN RATED 4-6 Albuterol/Ipratropium 3 ml 04/19/24 09:52 Ipratropium 0.5 Mg/Albuterol Sulfate 2.5 Mg Ampul.Neb 3 Ml INHALATION Q4HRT PRN Wheezing Alprazolam 0.25 mg 04/18/24 20:38 04/20/24 20:57 Alprazolam (*Crx) 0.25 Mg Tablet PO 0.25 mg TID PRN Administration anxiety Aspirin 81 mg 04/19/24 09:00 04/21/24 08:33 Aspirin 81 Mg Enteric Tablet PO 81 mg DAILY ANA Administration Atorvastatin Calcium 10 mg 04/19/24 09:00 04/21/24 08:33 Atorvastatin 10 Mg Tablet PO 10 mg DAILY ANA Administration Baclofen 20 mg 04/19/24 16:01 04/20/24 08:39 Baclofen 10 Mg Tablet PO 20 mg TID PRN Administration muscle spasm Benzonatate 200 mg 04/18/24 20:20 04/21/24 16:35 Benzonatate 100 Mg Capsule PO 200 mg TID ANA Administration Bisacodyl 10 mg 04/19/24 16:05 04/21/24 08:33 Bisacodyl 10 Mg Suppository RECTAL 10 mg QAM ANA Administration Enoxaparin Sodium 40 mg 04/19/24 09:00 04/21/24 08:35 Enoxaparin 40 Mg/0.4 Ml Syringe SUB-Q 40 mg DAILY ANA Administration Escitalopram Oxalate 20 mg 04/19/24 09:00 04/21/24 08:43 Escitalopram Oxalate 10 Mg Tablet PO 20 mg DAILY ANA Administration Furosemide 20 mg 04/19/24 09:00 04/21/24 08:32 Furosemide 20 Mg Tablet PO 20 mg QAM ANA Administration Gabapentin 900 mg 04/18/24 20:45 04/21/24 16:36 Gabapentin 300 Mg Capsule PO 900 mg TID ANA Administration Lactulose 20 gm 04/19/24 16:00 04/21/24 05:57 Lactulose 20 Gm/30 Ml Udc PO 20 gm QAM ANA Administration Levofloxacin 750 mg 04/20/24 21:00 04/20/24 20:47 Levofloxacin 750 Mg Tablet PO 04/26/24 20:59 750 mg DAILY@2100 ANA Administration Losartan Potassium 100 mg 04/19/24 09:00 04/21/24 08:33 Losartan Potassium 100 Mg Tablet PO 100 mg DAILY ANA Administration Metoprolol Succinate 12.5 mg 04/19/24 09:00 04/21/24 08:34 Metoprolol Succinate Ext Rel 12.5 Mg Tabcr PO 12.5 mg DAILY ANA Administration Olanzapine 5 mg 04/19/24 09:00 04/21/24 08:34 Olanzapine 5 Mg Tablet PO 5 mg DAILY ANA Administration Ondansetron HCl 4 mg 04/18/24 22:01 04/20/24 08:42 Ondansetron Inj 4 Mg/2 Ml Vial IV PUSH 4 mg Q6H PRN Administration Nausea And Vomiting Polyethylene Glycol 17 gm 04/19/24 17:00 04/21/24 16:36 Polyethylene Glycol 3350 17 Gm Powd.Pack PO 17 gm BID ANA Administration Prednisone 40 mg 04/19/24 08:00 04/21/24 08:32 Prednisone 20 Mg Tablet PO 40 mg DAILY@0800 ANA Administration Ropinirole HCl 1 mg 04/18/24 20:50 04/21/24 16:36 Ropinirole Hcl 1 Mg Tablet PO 1 mg BID ANA Administration Senna/Docusate Sodium 1 tab 04/19/24 17:00 04/21/24 16:36 Senna/Docusate Sodium Tablet PO 1 tab BID ANA Administration Zolpidem Tartrate 5 mg 04/18/24 21:00 04/20/24 20:47 Zolpidem Tartrate (*Crx) 5 Mg Tablet PO 5 mg QHS ANA Administration Radiology Results: ITS Impressions Chest X-Ray 04/18/24 15:14 IMPRESSION: No acute cardiopulmonary pathology. Abdomen/Pelvis CT 04/18/24 16:49 IMPRESSION: 1. Cystic areas in the tail of the pancreas unchanged. Atrophic pancreas. 2. 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 3. Hypodensities in the spleen which may be metastatic. Clinical correlation and follow-up advised. ADDENDUM: 04/20/24 1323 The spleen measures 13.6 cm. The largest lesion measures 0.[address] 04/20/24 14:59 IMPRESSION: 1. No evidence of malignancy. 2. The subcentimeter splenic masses described on 04/18/2024 are stable from 03/20/2023, likely granulomatous disease. Abdomen X-Ray 04/21/24 15:17 IMPRESSION: Multiple loops of air opacified nondilated small and large bowel. Air is noted within the cecum. Labs Labs: Laboratory Results - last 24 hr 04/19/24 04/19/24 04/21/24 02:50 16:12 06:38 WBC 9.9 RBC 4.62 Hgb 13.0 Hct 39.4 MCV 85.3 MCH 28.1 MCHC 33.0 RDW 13.2 Plt Count 238 MPV 10.1 Immature Gran % (Auto) 1.8 H Neut % (Auto) 61.9 Lymph % (Auto) 26.5 [place] % (Auto) 7.7 Eos % (Auto) 1.5 Baso % (Auto) 0.6 Lymph # (Auto) 2.63 [place] # (Auto) 0.8 H Eos # (Auto) 0.2 Baso # (Auto) 0.1 Abs Immat Gran (auto) 0.18 H Absolute Neuts (auto) 6.1 Absolute Nucleated RBC 0.000 Nucleated RBC % 0.0 Sodium 140 Potassium 3.2 L Chloride 100 Carbon Dioxide 31 H Anion Gap 9 BUN 12 Creatinine 0.60 L Estim Creat Clear Calc 106 Estimated GFR > 60 Glucose 95 Calcium 8.8 Total Bilirubin 0.4 AST 17 ALT 15 Alkaline Phosphatase 79 Total Protein 7.0 Albumin 3.9 FABIEN Screen Negative Urine Pneumococcal Ag Not detected Imaging Radiologist's impression: Exam: Abdomen 2V HISTORY: abdominal pain, constipation COMPARISON: Reference is made to a CT examination of the abdomen and pelvis dated 04/18/2024 TECHNIQUE: Supine images of the abdomen and pelvis. FINDINGS: Multiple loops of air opacified nondilated small and large bowel are identified. Air is noted within the rectum. Clips within the right upper quadrant consistent or prior cholecystectomy. Hardware within the upper lumbar spine with a huller operator to the left of midline extending cranially to the thoracic spine. Redemonstration of a calcified granuloma within the left mid to lower lung field. IMPRESSION: Multiple loops of air opacified nondilated small and large bowel. Air is noted within the cecum. Reviewed, dictated and finalized at location A. Quality VTE Prophylaxis VTE prophylaxis: mechanical ordered and pharmacologic ordered
--- NOTE | 2024-04-21 18:33 | PDONCCN ---
HPI - Date of Consult Date/Time: 04/21/24 18:33 Requesting Physician: Jelena Go APRN Primary Care Provider: Panchito Walters, - Consult Narrative Reason for consult: Splenomegaly Narrative: Angelina Mcnulty is a 58 year old female with history of paraplegia, hypertension, stroke, insight, frequent UTIs status post ileal conduit and multiple back surgeries came into the ER with generalized weakness, hematuria, blood in the stool along with tiredness and fatigue. She was having some nonproductive cough. She denies any night sweats. Denies any new lung sounds are lymphadenopathy. CT abdomen and pelvis showed cystic areas in the tail of the pancreas stable, left ileal conduit status post cystectomy and hypodensity in the spleen may be metastatic. CT chest was performed that showed no evidence of malignancy. Subcentimeter splenic mass is stable since February 2023 likely granulomatous disease. Labs showed normal WBC count platelet and hemoglobin patient has no other new complaints. Review of Systems - Review of Systems All systems reviewed & are unremarkable except as noted in HPI and bel - Neurologic Reports system reviewed and no additional complaints, except as documented PMFSH Medical History: Medical History (Last Reviewed 04/18/24 @ 22:17 by Brianda Mejia APRN) Allergies Anxiety Hypertension Paraplegia PTSD (post-traumatic stress disorder) Stroke Surgical History: Surgical History (Last Reviewed 04/18/24 @ 22:17 by Brianda Mejia APRN) History of back surgery History of ileal conduit Family History: Family History (Last Reviewed 04/18/24 @ 22:17 by Brianda Mejia APRN) Father Hypertension Cancer Mother Cancer Hypertension Anxiety Grandparent Cancer - Social History Social History: Social History (Last Reviewed 04/18/24 @ 22:17 by Brianda Mejia APRN) Alcohol Use: Alcohol intake: never Substance Use: Substance use: never Substance use type: does not use Others: Spiritual care concerns: No Smoking Status: Smoking status: Never smoker Social Determinants of Health: Do You Feel Safe in your Home?: Yes Has the Lack of Transportation Kept You From Medical Appointments or From Getting Medications?: No Within the Past 12 Months, Were You Worried Whether Your Food Would Run Out Before You Got Money to Buy More?: Never True What is Your Housing Situation Today?: I Have Housing Are You Worried That in the Next 2 Months, You May Not Have Your Own Housing to Live In?: No Do You Have Trouble Paying Your Heating Or Electricity Bill?: No Do You Have Trouble Paying For Medicines?: No Are You Currently Unemployed and Looking for Work?: No Highest Level of Education Completed: Don't Know Do You Have Trouble With Childcare or the Care of a Family Member?: No Exam - Vital Signs Vital Signs - 24 hr 04/20/24 20:00 04/20/24 20:15 04/20/24 21:59 Temperature 37.1 C Pulse Rate 72 Respiratory Rate 18 29 H Blood Pressure 138/92 H Pulse Oximetry 98 Oxygen Delivery Room Air BiPAP 04/21/24 00:15 04/21/24 02:32 04/21/24 05:30 Temperature 36.4 C 36.9 C Pulse Rate 74 71 Respiratory Rate 16 11 L 16 Blood Pressure 114/57 L 116/81 Pulse Oximetry 99 99 Oxygen Delivery BiPAP 04/21/24 08:05 04/21/24 08:34 04/21/24 08:00 Temperature 35.9 C L Pulse Rate 71 73 Respiratory Rate 18 Blood Pressure 134/80 Pulse Oximetry 98 97 Oxygen Delivery Room Air 04/21/24 08:00 04/21/24 12:00 04/21/24 16:00 Temperature 36.2 C L 36.1 C L Pulse Rate 71 76 Respiratory Rate 20 18 Blood Pressure 129/75 141/83 H Pulse Oximetry 96 95 Oxygen Delivery Room Air - Exam HEENT: EOMI, PERRLA, mucous membranes moist and pink Neck: supple Lungs: clear to auscultation, normal air movement Heart: no murmurs, gallops, or rubs, regular rhythm, regular rate Abdomen: abdomen soft, non-distended, normal bowel sounds Extremities: normal pulses Integumentary: no abnormalities Neurological: normal speech Psychological: mental status NL, mood NL - Lab Results Laboratory Last Values WBC 9.9 K/mm3 (4.5-10.0) 04/21/24 06:38 RBC 4.62 M/mm3 (4.2-5.4) 04/21/24 06:38 Hgb 13.0 g/dL (12.0-15.0) 04/21/24 06:38 Hct 39.4 % (37.0-47.0) 04/21/24 06:38 MCV 85.3 fl (80-100) 04/21/24 06:38 MCH 28.1 pg (26-34) 04/21/24 06:38 MCHC 33.0 g/dl (32-36) 04/21/24 06:38 RDW 13.2 % (11.5-14.5) 04/21/24 06:38 Plt Count 238 k/mm3 (150-375) 04/21/24 06:38 MPV 10.1 fl (7.4-10.4) 04/21/24 06:38 Immature Gran % (Auto) 1.8 % (0-0.5) H 04/21/24 06:38 Neut % (Auto) 61.9 % (45.5-73.1) 04/21/24 06:38 Lymph % (Auto) 26.5 % (18.3-44.2) 04/21/24 06:38 [place] % (Auto) 7.7 % (2.6-8.5) 04/21/24 06:38 Eos % (Auto) 1.5 % (0-4.4) 04/21/24 06:38 Baso % (Auto) 0.6 % (0.2-1.2) 04/21/24 06:38 Lymph # (Auto) 2.63 K/mm3 (0.9-3.2) 04/21/24 06:38 [place] # (Auto) 0.8 K/mm3 (0.1-0.6) H 04/21/24 06:38 Eos # (Auto) 0.2 K/mm3 (0-0.3) 04/21/24 06:38 Baso # (Auto) 0.1 K/mm3 (0.0-0.1) 04/21/24 06:38 Abs Immat Gran (auto) 0.18 K/mm3 (0.00-0.031) H 04/21/24 06:38 Absolute Neuts (auto) 6.1 K/mm3 (1.3-6.7) 04/21/24 06:38 Absolute Nucleated RBC 0.000 K/mm3 (0.0-0.012) 04/21/24 06:38 Nucleated RBC % 0.0 % (0.0-0.2) 04/21/24 06:38 Smudge Cells Few 04/19/24 06:05 Platelet Estimate Adequate (Adequate) 04/19/24 06:05 Schistocytes None seen 04/19/24 06:05 PT 14.8 Seconds (11.1-14.7) H 04/19/24 16:12 INR 1.1 04/19/24 16:12 APTT 25.9 Seconds (22.3-36.8) 04/19/24 16:12 Sodium 140 mmol/L (137-145) 04/21/24 06:38 Potassium 3.2 mmol/L (3.4-5.0) L 04/21/24 06:38 Chloride 100 mmol/L (98-107) 04/21/24 06:38 Carbon Dioxide 31 mmol/L (22-30) H 04/21/24 06:38 Anion Gap 9 mmol/L (4-12) 04/21/24 06:38 BUN 12 mg/dL (7-17) 04/21/24 06:38 Creatinine 0.60 mg/dL (0.7-1.0) L 04/21/24 06:38 Estim Creat Clear Calc 106 ml/min 04/21/24 06:38 Estimated GFR > 60 (59-) 04/21/24 06:38 Glucose 95 mg/dL (65-110) 04/21/24 06:38 Lactic Acid 1.2 mmol/L (0.7-2.0) 04/18/24 15:16 Uric Acid 5.5 mg/dL (2.5-7.5) 04/19/24 16:12 Calcium 8.8 mg/dL (8.4-10.2) 04/21/24 06:38 Magnesium 2.3 mg/dL (1.6-2.3) 04/19/24 06:05 Total Bilirubin 0.4 mg/dL (0.2-1.3) 04/21/24 06:38 AST 17 U/L (14-36) 04/21/24 06:38 ALT 15 U/L (6-35) 04/21/24 06:38 Alkaline Phosphatase 79 U/L (38-126) 04/21/24 06:38 Troponin I < 0.012 ng/mL (0.000-0.034) 04/20/24 03:40 Total Protein 7.0 g/dL (6.3-8.2) 04/21/24 06:38 Albumin 3.9 g/dL (3.5-5.1) 04/21/24 06:38 Urine Color Yellow (Yellow) 04/18/24 15:16 Urine Appearance Cloudy (Clear) H 04/18/24 15:16 Urine pH 6.0 (5.0-9.0) 04/18/24 15:16 Ur Specific [place] 1.009 (1.001-1.035) 04/18/24 15:16 Urine Protein Negative mg/dL (Negative) 04/18/24 15:16 Urine Glucose (UA) Negative mg/dL (Negative) 04/18/24 15:16 Urine Ketones Negative mg/dL (Negative) 04/18/24 15:16 Ur Blood (Man) 2+ (Negative) H 04/18/24 15:16 Urine Nitrate Positive (Negative) H 04/18/24 15:16 Urine Bilirubin Negative (Negative) 04/18/24 15:16 Urine Urobilinogen 1.0 mg/dL (<2.0) 04/18/24 15:16 Leukocyte Esterase Rfl 3+ ERICK/UL (Negative) H 04/18/24 15:16 Urine RBC 3-5 /hpf (0-2) H 04/18/24 15:16 Urine WBC 11-20 /hpf (0-3) H 04/18/24 15:16 Ur Squamous Epith Cells Occasional /hpf (Few) 04/18/24 15:16 Urine Bacteria 2+ /hpf H 04/18/24 15:16 Urine Casts 0-2 04/18/24 15:16 FABIEN Screen Negative (NEGATIVE) 04/19/24 16:12 HIV 1&2 Ab/P24 Ag 4thGn Negative (Negative) 04/19/24 16:12 Influenza A (RT-PCR) Negative (Negative) 04/18/24 14:55 Influenza B (RT-PCR) Negative (Negative) 04/18/24 14:55 RSV (RT-PCR) Negative (Negative) 04/18/24 14:55 SARS-CoV-2 RNA (RT-PCR) Negative (Negative) 04/18/24 14:55 Urine Pneumococcal Ag Not detected 04/19/24 02:50 Blood Type AB Negative 04/18/24 14:55 Antibody Screen Negative 04/18/24 14:55 Meds Home Medications Medication Instructions Recorded Confirmed Type alprazolam 0.25 mg tablet 0.25 mg PO TID PRN anxiety #60 tabs 02/17/23 04/18/24 Rx diclofenac sodium 1 % topical gel 2 g topical QID #100 grams 02/17/23 04/18/24 Rx (Voltaren Arthritis Pain) losartan 100 mg tablet 100 mg PO DAILY #90 tabs 02/17/23 04/18/24 Rx olanzapine 5 mg tablet 5 mg PO DAILY #30 tabs 02/17/23 04/18/24 Rx ondansetron 4 mg disintegrating 4 mg PO Q8H PRN nausea and 02/17/23 04/18/24 Rx tablet vomiting #20 tabs ropinirole 0.5 mg tablet 0.5 mg PO BID #180 tabs 02/17/23 04/18/24 Rx zolpidem 5 mg tablet (Ambien) 5 mg PO QHS #30 tabs 02/17/23 04/18/24 Rx atorvastatin 10 mg tablet 10 mg PO DAILY #90 tabs 08/22/23 04/18/24 Rx escitalopram oxalate 20 mg tablet 20 mg PO DAILY #90 tabs 08/22/23 04/18/24 Rx metoprolol succinate 25 mg 12.5 mg PO DAILY #45 tabs 08/22/23 04/18/24 Rx tablet,extended release 24 hr gabapentin 300 mg capsule 900 mg PO TID #270 caps 09/15/23 04/18/24 Rx furosemide 20 mg tablet 20 mg PO QAM #90 tabs 12/29/23 04/18/24 Rx baclofen 20 mg tablet 20 mg PO TID PRN muscle spasm #90 04/13/24 04/18/24 Rx tabs benzonatate 200 mg capsule 200 mg PO TID PRN cough #30 caps 04/13/24 04/18/24 Rx aspirin 81 mg tablet,delayed 81 mg PO DAILY #90 tabs 04/15/24 04/18/24 Rx release (Adult Low Dose Aspirin) hydrocodone 5 mg-acetaminophen 325 1 tablet PO Q8H PRN pain #30 tabs 04/16/24 04/18/24 Rx mg tablet Allergies Allergy/AdvReac Type Severity Reaction Status Date / Time adhesive tape Allergy Unknown Unknown Verified 03/22/24 07:57 Penicillins Allergy Unknown Unknown Verified 03/22/24 07:57 Sulfa (Sulfonamide Allergy Unknown Unknown Verified 03/22/24 07:57 Antibiotics) vancomycin Allergy Unknown Unknown Verified 03/22/24 07:57 latex Allergy Unknown Unknown Uncoded 03/22/24 07:57 Results - Labs CBC & Chem 7: 04/21/24 06:38 04/21/24 06:38 Labs: Short CBC 04/21/24 Range/Units 06:38 WBC 9.9 (4.5-10.0) K/mm3 Hgb 13.0 (12.0-15.0) g/dL Hct 39.4 (37.0-47.0) % Plt Count 238 (150-375) k/mm3 BMP 04/21/24 06:38 Sodium 140 Potassium 3.2 L Chloride 100 Carbon Dioxide 31 H BUN 12 Creatinine 0.60 L Glucose 95 Calcium 8.8 Liver Function 04/21/24 Range/Units 06:38 Total Bilirubin 0.4 (0.2-1.3) mg/dL AST 17 (14-36) U/L ALT 15 (6-35) U/L Alkaline Phosphatase 79 (38-126) U/L Albumin 3.9 (3.5-5.1) g/dL Assessment and Plan - Additional Plan Splenomegaly with splenic lesions. Patient is the 58-year-old female with history of stroke and paraplegia along with cystectomy with ostomy placement for recurrent UTIs she came into the hospital with hematuria and blood in the stool along with generalized weakness and tiredness. CT abdomen and pelvis showed hypodensities in the spleen could be metastatic disease. CT chest was performed for completion of workup that showed no evidence of metastatic disease. Spleen hypodensities are likely does disease and has been stable since 2022 and likely granulomatous disease. On my examination there is no evidence of lymphadenopathy. FABIEN and HIV testing negative. CBC also showed normal WBC platelet count. I will order angiotensin-converting enzyme level. She will follow-up with me in the office. All the questions to patient and the satisfaction.
[2024-04-21] MEDS: SIMETHICONE 80 MG TAB.CHEW PO (20:47)
[2024-04-21] MEDS: ZOLPIDEM TARTRATE (*CRX) 5 MG TABLET PO (20:48)
[2024-04-21] MEDS: BACLOFEN 10 MG TABLET 20 MG PO (21:03)
[2024-04-21] MEDS: ALPRAZolam (*CRX) 0.25 MG TABLET PO (21:03)
[2024-04-22] VITALS (10 sets, daily range): BP systolic 123–145; BP diastolic 68–82; PULSE 56–84; RESP 16–18; TEMP 35.6–37; O2SAT 95–99
[2024-04-22] MEDS: BACLOFEN 10 MG TABLET 20 MG PO ×2 (05:44→20:41)
[2024-04-22] MEDS: ALPRAZolam (*CRX) 0.25 MG TABLET PO (05:44)
[2024-04-22 06:42] LABS: Basophils Absolute Auto 0.1 K/mm3 (0.0-0.1); Basophils Percent Auto 0.5 % (0.2-1.2); Eosinophils Absolute Auto 0.1 K/mm3 (0-0.3); Eosinophils Percent Auto 1.1 % (0-4.4); Hematocrit 40.9 % (37.0-47.0); Hemoglobin 13.9 g/dL (12.0-15.0); Immature Granulocyte Absolute 0.22 K/mm3 (0.00-0.031); Immature Granulocyte Percent A 1.9 % (0-0.5); Lymphocytes Percent Auto 24.7 % (18.3-44.2); Mean Corpuscular Hemoglobin 28.5 pg (26-34); Mean Corpuscular Volume 83.8 fl (80-100); Mean Platelet Volume 9.9 fl (7.4-10.4); Monocytes Absolute Auto 0.9 K/mm3 (0.1-0.6); Neutrophils Absolute Auto 7.5 K/mm3 (1.3-6.7); Neutrophils Percent Auto 63.8 % (45.5-73.1); Platelet Count Result 252 k/mm3 (150-375); Red Blood Count 4.88 M/mm3 (4.2-5.4); Red Cell Distribution Width 13.4 % (11.5-14.5); White Blood Count 11.8 K/mm3 (4.5-10.0)
[2024-04-22 06:54] LABS: Alanine Aminotransferase 16 U/L (6-35); Albumin Level 3.9 g/dL (3.5-5.1); Alkaline Phosphatase 87 U/L (38-126); Anion Gap 11 mmol/L (4-12); Aspartate Amino Transferase 19 U/L (14-36); Bilirubin,Total 0.4 mg/dL (0.2-1.3); Blood Urea Nitrogen 17 mg/dL (7-17); Calcium 8.9 mg/dL (8.4-10.2); Carbon Dioxide 27 mmol/L (22-30); Chloride 100 mmol/L (98-107); Estimated CRCL calculation 125 ml/min; Estimated Glomerular Filt Rate > 60; Glucose 101 mg/dL (65-110); Potassium 3.2 mmol/L (3.4-5.0); Sodium 138 mmol/L (137-145)
[2024-04-22] MEDS: ESCITALOPRAM OXALATE 10 MG TABLET 20 MG PO (08:25)
[2024-04-22] MEDS: polyethylene glycoL 3350 17 GM POWD.PACK PO ×2 (08:26→16:10)
[2024-04-22] MEDS: BENZONATATE 100 MG CAPSULE 200 MG PO ×3 (08:26→16:10)
[2024-04-22] MEDS: ASPIRIN 81 MG ENTERIC TABLET PO (08:26)
[2024-04-22] MEDS: SIMETHICONE 80 MG TAB.CHEW PO ×3 (08:27→16:11)
[2024-04-22] MEDS: ATORVASTATIN 10 MG TABLET PO (08:27)
[2024-04-22] MEDS: predniSONE 20 MG TABLET 40 MG PO (08:27)
[2024-04-22] MEDS: METOPROLOL SUCCINATE EXT REL 12.5 MG TABCR PO (08:27)
[2024-04-22] MEDS: GABAPENTIN 300 MG CAPSULE 900 MG PO ×3 (08:27→16:11)
[2024-04-22] MEDS: LOSARTAN POTASSIUM 100 MG TABLET PO (08:27)
[2024-04-22] MEDS: FUROSEMIDE 20 MG TABLET PO (08:28)
[2024-04-22] MEDS: OLANZapine 5 MG TABLET PO (08:28)
[2024-04-22] MEDS: SENNA/DOCUSATE SODIUM TABLET 1 TAB PO ×2 (08:28→16:11)
[2024-04-22] MEDS: POTASSIUM CHLORIDE 20 MEQ ER TABLET 40 MEQ PO (08:28)
[2024-04-22] MEDS: rOPINIRole HCL 1 MG TABLET PO ×2 (08:28→16:10)
[2024-04-22] MEDS: ENOXAPARIN 40 MG/0.4 ML SYRINGE SUB-Q (08:32)
[2024-04-22] MEDS: LACTULOSE 20 GM/30 ML UDC PO (08:32)
[2024-04-22] MEDS: BISACODYL 10 MG SUPPOSITORY RECTAL (08:32)
--- NOTE | 2024-04-22 10:38 | P.PNIM_ITS ---
Progress Note: A&P Assessment and Plan (1) Acute UTI: Code(s): N39.0 - Urinary tract infection, site not specified Status: Acute Assessment and Plan: * Urine culture negative on final read * 1st set of blood cultures Blood cultures showing no growth to date on preliminary read * 2nd set of blood cultures showing no growth to date on preliminary read * Levaquin discontinued * Legionella culture still pending * WBC 11.8, restart Levofloxacin 750 mg PO daily. * Monitor labs. (2) Splenomegaly: Code(s): R16.1 - Splenomegaly, not elsewhere classified Status: Acute Assessment and Plan: * Appears to be chronic as her chest CT today showed no evidence of malignancy, the sub cm splenic mass is described on 04/18/2024 stable from 03/20/2023 likely granulomatous disease * FABIEN negative * HIV negative * Oncology following (3) Cough: Code(s): R05.9 - Cough, unspecified Status: Acute Assessment and Plan: * chronic ongoing for 10 days * supportive therapy * Continue benzonatate 200 mg t.i.d. p.o. as needed for cough * Continue ipratropium/albuterol inhalation q.4 hours as needed for wheezing and cough * Continue prednisone 40 mg for another 2 day * Sputum culture negative * Respiratory panel negative for influenza a and B, RSV, COVID (4) Pancreas cyst: Code(s): K86.2 - Cyst of pancreas Status: Acute Assessment and Plan: * CT of the abdomen and pelvis showed a cystic area in the tail of the pancreas * Will need MRCP however we are unable to complete this while here as she has an implanted spine stimulator in place and is contraindicated for our facility. She will need to follow up on an outpatient basis as this was an incidental finding. (5) Anxiety: Code(s): F41.9 - Anxiety disorder, unspecified Status: Acute Assessment and Plan: * Continue Xanax (6) Sleep apnea: Code(s): G47.30 - Sleep apnea, unspecified Status: Acute Assessment and Plan: * Continue CPAP at night (7) Constipation: Code(s): K59.00 - Constipation, unspecified Status: Acute Assessment and Plan: * Severe constipation seen on CT * Will continue with an enema today * KUB 04/21 showing multiple loops of air opacified non dilated small and large bowel, air noted in the cecum, no constipation seen * KUB today showed: FINDINGS: BOWEL: Nonobstructive bowel gas pattern. ORGANOMEGALY: None. SIGNIFICANT PATHOLOGIC CALCIFICATIONS: None. OTHER: No free air is seen under the diaphragm. Postoperative changes in the spine. Left spinal stimulator. IMPRESSION: NO ACUTE ABDOMINAL FINDINGS. * Simethicone ordered for gas pain * Likely can discharge in the morning * Diarrhea today, stop Lactulose. (8) Hypokalemia: Code(s): E87.6 - Hypokalemia Status: Acute Assessment and Plan: * Potassium 3.2 today * 40 mEq of potassium given * Continue to trend Subjective Date/time seen: 04/22/24 10:38 Interval history: Patient denies chest pain, palpitations, headache, dizziness, nausea, or vomiting. Patient reports diarrhea and stomach cramping at times. Review of Systems Review of Systems: All systems reviewed & are unremarkable except as noted in HPI and below Exam Const: General: no acute distress Resp: Effort & Inspection: normal respiratory effort Auscultation: clear to auscultation bilaterally Cardio: Rate: regular rate Rhythm: regular rhythm GI: GI Palp: Yes Tenderness to palpation present (GI) (left side, patient reports an enlarged spleen. ) : Other: Ileal conduit to drainage bag Skin: General skin exam: no rashes or lesions noted Extrem: General: no pedal edema Psych: Mental Status: mental status grossly normal Affect: normal affect Objective Data Vital Signs Vital Signs: Vital Signs - 24 hr 04/21/24 12:00 04/21/24 16:00 04/21/24 20:00 Temperature 97.2 F L 96.9 F L 97.1 F L Pulse Rate 71 76 77 Respiratory Rate 20 18 16 Blood Pressure 129/75 141/83 H 142/75 H Pulse Oximetry 96 95 94 Oxygen Delivery 04/21/24 22:45 04/22/24 00:00 04/22/24 04:00 Temperature 97.7 F 97.9 F Pulse Rate 73 70 66 Respiratory Rate 23 H 16 16 Blood Pressure 136/72 139/73 Pulse Oximetry 98 98 98 Oxygen Delivery CPAP 04/22/24 07:41 04/22/24 08:00 04/22/24 08:27 Temperature 96.1 F L Pulse Rate 56 L 56 L Respiratory Rate 18 Blood Pressure 144/68 H Pulse Oximetry 95 97 Oxygen Delivery Room Air Intake/Output Intake/Output: Intake & Output 04/19/24 04/20/24 04/21/24 04/22/24 23:59 23:59 23:59 23:59 Intake Total 3840 3130 4043 990 Output Total 4200 5650 4050 1800 Xmqlybw -360 -2520 -7 -810 Meds/Results Medications: Active Medications Generic Name Dose Route Start Last Admin Trade Name Freq PRN Reason Stop Dose Admin Acetaminophen 650 mg 04/19/24 15:52 Acetaminophen 325 Mg Tablet PO Q4H PRN Mild Pain (1-3) or Fever Hydrocodone Bitart/Acetaminophen 1 tab 04/19/24 16:01 04/21/24 22:56 Hydrocodone/Acetaminophen (*Crx) 5-325 Mg Tablet PO 1 tab Q8H PRN Administration PAIN RATED 4-6 Albuterol/Ipratropium 3 ml 04/19/24 09:52 Ipratropium 0.5 Mg/Albuterol Sulfate 2.5 Mg Ampul.Neb 3 Ml INHALATION Q4HRT PRN Wheezing Alprazolam 0.25 mg 04/18/24 20:38 04/22/24 05:44 Alprazolam (*Crx) 0.25 Mg Tablet PO 0.25 mg TID PRN Administration anxiety Aspirin 81 mg 04/19/24 09:00 04/22/24 08:26 Aspirin 81 Mg Enteric Tablet PO 81 mg DAILY ANA Administration Atorvastatin Calcium 10 mg 04/19/24 09:00 04/22/24 08:27 Atorvastatin 10 Mg Tablet PO 10 mg DAILY ANA Administration Baclofen 20 mg 04/19/24 16:01 04/22/24 05:44 Baclofen 10 Mg Tablet PO 20 mg TID PRN Administration muscle spasm Benzonatate 200 mg 04/18/24 20:20 04/22/24 08:26 Benzonatate 100 Mg Capsule PO 200 mg TID ANA Administration Bisacodyl 10 mg 04/19/24 16:05 04/22/24 08:32 Bisacodyl 10 Mg Suppository RECTAL 10 mg QAM ANA Administration Enoxaparin Sodium 40 mg 04/19/24 09:00 04/22/24 08:32 Enoxaparin 40 Mg/0.4 Ml Syringe SUB-Q 40 mg DAILY ANA Administration Escitalopram Oxalate 20 mg 04/19/24 09:00 04/22/24 08:25 Escitalopram Oxalate 10 Mg Tablet PO 20 mg DAILY ANA Administration Furosemide 20 mg 04/19/24 09:00 04/22/24 08:28 Furosemide 20 Mg Tablet PO 20 mg QAM ANA Administration Gabapentin 900 mg 04/18/24 20:45 04/22/24 08:27 Gabapentin 300 Mg Capsule PO 900 mg TID ANA Administration Lactulose 20 gm 04/19/24 16:00 04/22/24 08:32 Lactulose 20 Gm/30 Ml Udc PO 20 gm QAM ANA Administration Losartan Potassium 100 mg 04/19/24 09:00 04/22/24 08:27 Losartan Potassium 100 Mg Tablet PO 100 mg DAILY ANA Administration Metoprolol Succinate 12.5 mg 04/19/24 09:00 04/22/24 08:27 Metoprolol Succinate Ext Rel 12.5 Mg Tabcr PO 12.5 mg DAILY ANA Administration Olanzapine 5 mg 04/19/24 09:00 04/22/24 08:28 Olanzapine 5 Mg Tablet PO 5 mg DAILY ANA Administration Ondansetron HCl 4 mg 04/18/24 22:01 04/20/24 08:42 Ondansetron Inj 4 Mg/2 Ml Vial IV PUSH 4 mg Q6H PRN Administration Nausea And Vomiting Polyethylene Glycol 17 gm 04/19/24 17:00 04/22/24 08:26 Polyethylene Glycol 3350 17 Gm Powd.Pack PO 17 gm BID ANA Administration Prednisone 40 mg 04/22/24 08:00 04/22/24 08:27 Prednisone 20 Mg Tablet PO 04/23/24 09:00 40 mg DAILY@0800 ANA Administration Ropinirole HCl 1 mg 04/18/24 20:50 04/22/24 08:28 Ropinirole Hcl 1 Mg Tablet PO 1 mg BID ANA Administration Senna/Docusate Sodium 1 tab 04/19/24 17:00 04/22/24 08:28 Senna/Docusate Sodium Tablet PO 1 tab BID ANA Administration Simethicone 80 mg 04/21/24 21:00 04/22/24 08:27 Simethicone 80 Mg Tab.Chew PO 80 mg QID ANA Administration Zolpidem Tartrate 5 mg 04/18/24 21:00 04/21/24 20:48 Zolpidem Tartrate (*Crx) 5 Mg Tablet PO 5 mg QHS ANA Administration Radiology Results: ITS Impressions Chest X-Ray 04/18/24 15:14 IMPRESSION: No acute cardiopulmonary pathology. Abdomen/Pelvis CT 04/18/24 16:49 IMPRESSION: 1. Cystic areas in the tail of the pancreas unchanged. Atrophic pancreas. 2. 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 3. Hypodensities in the spleen which may be metastatic. Clinical correlation and follow-up advised. ADDENDUM: 04/20/24 1323 The spleen measures 13.6 cm. The largest lesion measures 0.[address] 04/20/24 14:59 IMPRESSION: 1. No evidence of malignancy. 2. The subcentimeter splenic masses described on 04/18/2024 are stable from 03/20/2023, likely granulomatous disease. Abdomen X-Ray 04/21/24 15:17 IMPRESSION: Multiple loops of air opacified nondilated small and large bowel. Air is noted within the cecum. Labs Labs: Laboratory Results - last 24 hr 04/19/24 04/19/24 04/22/24 02:50 16:12 06:29 WBC 11.8 H RBC 4.88 Hgb 13.9 Hct 40.9 MCV 83.8 MCH 28.5 MCHC 34.0 RDW 13.4 Plt Count 252 MPV 9.9 Immature Gran % (Auto) 1.9 H Neut % (Auto) 63.8 Lymph % (Auto) 24.7 [place] % (Auto) 8.0 Eos % (Auto) 1.1 Baso % (Auto) 0.5 Lymph # (Auto) 2.90 [place] # (Auto) 0.9 H Eos # (Auto) 0.1 Baso # (Auto) 0.1 Abs Immat Gran (auto) 0.22 H Absolute Neuts (auto) 7.5 H Absolute Nucleated RBC 0.000 Nucleated RBC % 0.0 Sodium 138 Potassium 3.2 L Chloride 100 Carbon Dioxide 27 Anion Gap 11 BUN 17 Creatinine 0.50 L Estim Creat Clear Calc 125 Estimated GFR > 60 Glucose 101 Calcium 8.9 Total Bilirubin 0.4 AST 19 ALT 16 Alkaline Phosphatase 87 Total Protein 7.0 Albumin 3.9 FABIEN Screen Negative Urine Pneumococcal Ag Not detected Quality VTE Prophylaxis VTE prophylaxis: mechanical ordered and pharmacologic ordered
[2024-04-22] MEDS: levoFLOXacin 750 MG TABLET PO (13:06)
[2024-04-22] MEDS: HYDROcodone/acetaminophen (*CRX) 5-325 MG TABLET 1 TAB PO (16:10)
[2024-04-22] MEDS: ZOLPIDEM TARTRATE (*CRX) 5 MG TABLET PO (20:41)
[2024-04-23 04:00] VITALS: BP 137/78; PULSE 71; RESP 18; TEMP 36.9; O2SAT 97
[2024-04-23] MEDS: HYDROcodone/acetaminophen (*CRX) 5-325 MG TABLET 1 TAB PO ×2 (05:30→13:23)
[2024-04-23 06:59] LABS: Basophils Absolute Auto 0.1 K/mm3 (0.0-0.1); Basophils Percent Auto 0.6 % (0.2-1.2); Eosinophils Absolute Auto 0.2 K/mm3 (0-0.3); Eosinophils Percent Auto 1.3 % (0-4.4); Hematocrit 38.1 % (37.0-47.0); Hemoglobin 12.5 g/dL (12.0-15.0); Immature Granulocyte Absolute 0.29 K/mm3 (0.00-0.031); Immature Granulocyte Percent A 2.6 % (0-0.5); Lymphocytes Absolute Auto 2.79 K/mm3 (0.9-3.2); Lymphocytes Percent Auto 24.7 % (18.3-44.2); Mean Corpuscular HGB Conc 32.8 g/dl (32-36); Mean Corpuscular Volume 85.2 fl (80-100); Mean Platelet Volume 9.8 fl (7.4-10.4); Monocytes Absolute Auto 0.9 K/mm3 (0.1-0.6); Monocytes Percent Auto 7.5 % (2.6-8.5); Neutrophils Absolute Auto 7.2 K/mm3 (1.3-6.7); Neutrophils Percent Auto 63.3 % (45.5-73.1); Platelet Count Result 200 k/mm3 (150-375); Red Blood Count 4.47 M/mm3 (4.2-5.4); Red Cell Distribution Width 13.4 % (11.5-14.5); White Blood Count 11.3 K/mm3 (4.5-10.0)
[2024-04-23 07:26] LABS: Alanine Aminotransferase 15 U/L (6-35); Albumin Level 3.4 g/dL (3.5-5.1); Alkaline Phosphatase 74 U/L (38-126); Anion Gap 7 mmol/L (4-12); Aspartate Amino Transferase 18 U/L (14-36); Bilirubin,Total 0.3 mg/dL (0.2-1.3); Blood Urea Nitrogen 19 mg/dL (7-17); Calcium 8.2 mg/dL (8.4-10.2); Carbon Dioxide 29 mmol/L (22-30); Chloride 100 mmol/L (98-107); Estimated CRCL calculation 106 ml/min; Estimated Glomerular Filt Rate > 60; Glucose 93 mg/dL (65-110); Potassium 3.8 mmol/L (3.4-5.0); Sodium 136 mmol/L (137-145)
[2024-04-23 08:00] VITALS: BP 147/89; PULSE 71; RESP 20; TEMP 35.9; O2SAT 97
[2024-04-23] MEDS: BISACODYL 10 MG SUPPOSITORY RECTAL (09:56)
[2024-04-23] MEDS: ESCITALOPRAM OXALATE 10 MG TABLET 20 MG PO (09:56)
[2024-04-23 09:57] VITALS: PULSE 76
[2024-04-23] MEDS: ENOXAPARIN 40 MG/0.4 ML SYRINGE SUB-Q (09:57)
[2024-04-23] MEDS: SIMETHICONE 80 MG TAB.CHEW PO ×2 (09:57→13:24)
[2024-04-23] MEDS: levoFLOXacin 750 MG TABLET PO (09:57)
[2024-04-23] MEDS: polyethylene glycoL 3350 17 GM POWD.PACK PO (09:57)
[2024-04-23] MEDS: rOPINIRole HCL 1 MG TABLET PO (09:57)
[2024-04-23] MEDS: FUROSEMIDE 20 MG TABLET PO (09:57)
[2024-04-23] MEDS: ASPIRIN 81 MG ENTERIC TABLET PO (09:57)
[2024-04-23] MEDS: BENZONATATE 100 MG CAPSULE 200 MG PO ×2 (09:57→13:24)
[2024-04-23] MEDS: LOSARTAN POTASSIUM 100 MG TABLET PO (09:57)
[2024-04-23] MEDS: GABAPENTIN 300 MG CAPSULE 900 MG PO ×2 (09:57→13:23)
[2024-04-23] MEDS: METOPROLOL SUCCINATE EXT REL 12.5 MG TABCR PO (09:57)
[2024-04-23] MEDS: predniSONE 20 MG TABLET 40 MG PO (09:57)
[2024-04-23] MEDS: SENNA/DOCUSATE SODIUM TABLET 1 TAB PO (09:58)
[2024-04-23] MEDS: ATORVASTATIN 10 MG TABLET PO (09:58)
[2024-04-23] MEDS: OLANZapine 5 MG TABLET PO (09:58)
--- NOTE | 2024-04-23 10:36 | PM.DS ---
DS: Admitting Diagnosis Discharge Date 04/23/2024 Admitting Diagnosis Weakness DS: Discharge Diagnosis Discharge Diagnosis (1) Constipation: Code(s): K59.00 - Constipation, unspecified Status: Acute (2) Splenomegaly: Code(s): R16.1 - Splenomegaly, not elsewhere classified Status: Acute (3) Pancreas cyst: Code(s): K86.2 - Cyst of pancreas Status: Acute (4) Hypokalemia: Code(s): E87.6 - Hypokalemia Status: Resolved Assessment and Plan: Potassium 3.8 (5) Anxiety: Code(s): F41.9 - Anxiety disorder, unspecified Status: Acute (6) Sleep apnea: Code(s): G47.30 - Sleep apnea, unspecified Status: Acute DS: Summary Hospital Course Hospital Course: Patient came to the ER reporting over the past 10 days cough, congestion, fever, vomiting, and diarrhea. Experiencing some blood in urine and stool. Patient was not taking a home bowel regimen. UA which is highly likely infection, with positive nitrates, positive leukocyte esterase, positive urine RBC, positive urine WBC and positive urine bacteria, her viral PCR is negative. Chest x-ray reveals no acute cardiopulmonary abnormality. CT showed severe constipation. Improved with bowel regimen. Last KUB on 04/21 showed a nonobstructive gas pattern. Urine culture negative, sputum culture negative, and blood cultures no growth. CT of the abdomen and pelvis showed a cystic area in the tail of the pancreas. Will need MRCP however we are unable to complete this while here as she has an implanted spine stimulator in place and is contraindicated for our facility. She will need to follow up on an outpatient basis as this was an incidental finding and we can not do further testing here due to patient having an implanted spine stimulator. Patient will need to go to [facility] or [facility], discussed with patient. Status at Discharge Functional status at discharge: wheelchair bound Overall status at discharge: patient is progressing back to baseline Time Spent with Patient Time attestation: Total time spent providing and/or coordinating discharge services: Time spent: Greater than 30 minutes Exam Const: General: uncomfortable Other: Pain a 6 left side, frequent, and cramping. Eyes: Sclera: sclerae normal Cardio: Rate: regular rate Rhythm: regular rhythm GI: GI Palp: Yes Soft to palpation Auscultation: normal bowel sounds : Other: Ileal conduit to drainage bag, yellow urine. Skin: General skin exam: no rashes or lesions noted Extrem: General: no pedal edema Psych: Mental Status: mental status grossly normal Affect: normal affect DS: Data Data Completed and Pending Labs on day of discharge: Labs from last 24 hours 04/23/24 06:12 WBC 11.3 H RBC 4.47 Hgb 12.5 Hct 38.1 MCV 85.2 MCH 28.0 MCHC 32.8 RDW 13.4 Plt Count 200 MPV 9.8 Immature Gran % (Auto) 2.6 H Neut % (Auto) 63.3 Lymph % (Auto) 24.7 [place] % (Auto) 7.5 Eos % (Auto) 1.3 Baso % (Auto) 0.6 Lymph # (Auto) 2.79 [place] # (Auto) 0.9 H Eos # (Auto) 0.2 Baso # (Auto) 0.1 Abs Immat Gran (auto) 0.29 H Absolute Neuts (auto) 7.2 H Absolute Nucleated RBC 0.000 Nucleated RBC % 0.0 Sodium 136 L Potassium 3.8 Chloride 100 Carbon Dioxide 29 Anion Gap 7 BUN 19 H Creatinine 0.60 L Estim Creat Clear Calc 106 Estimated GFR > 60 Glucose 93 Calcium 8.2 L Total Bilirubin 0.3 AST 18 ALT 15 Alkaline Phosphatase 74 Total Protein 6.0 L Albumin 3.4 L Preliminary micro results at discharge 04/19/24 16:49 Blood Culture - Preliminary Blood 04/19/24 16:48 Blood Culture - Preliminary Blood 04/18/24 19:47 Blood Culture - Preliminary Blood 04/18/24 19:47 Blood Culture - Preliminary Blood Discharge Plan Discharge Attending physician on discharge: Jona Comer Consulting providers: Javier Zarate Discharging Clinician: Belkis Infante Anticipated Discharge Date/Time: 04/23/24 12:00 Patient Disposition: Home, Self-Care Activity: may shower Diet: regular Discharge Instructions: Need follow up testing MRCP to evaluate cyst on tail of pancreas at [facility] or [facility], please have primary set up. Follow bowel regimen. Increase fiber in diet. Keep track of bowel movements. Patient Instructions: Antibiotic Form, Constipation (DC) Stand Alone Forms: General Discharge Information Follow-up/Referrals: Panchito Walters DO [Primary Care Provider] - 1 Week Discharge Medications: New polyethylene glycol 3350 [Miralax] 17 gram Powder In Packet 17 g PO DAILY Qty: 30 0RF sennosides-docusate sodium [Senokot-S] 8.6-50 mg Tablet 1 tab-cap PO BID Qty: 60 0RF levofloxacin 750 mg tablet 750 mg PO DAILY Qty: 4 0RF Continued diclofenac sodium [Voltaren Arthritis Pain] 1 % gel 2 g topical QID Qty: 100 1RF Rx Instructions: apply to single elbow, wrist or hand; for hand includes palm/fingers/back of hand ondansetron 4 mg tablet,disintegrating 4 mg PO Q8H PRN (Reason: nausea and vomiting) Qty: 20 0RF ropinirole 0.5 mg tablet 0.5 mg PO BID Qty: 180 1RF alprazolam 0.25 mg tablet 0.25 mg PO TID PRN (Reason: anxiety) Qty: 60 0RF olanzapine 5 mg tablet 5 mg PO DAILY Qty: 30 0RF zolpidem [Ambien] 5 mg tablet 5 mg PO QHS Qty: 30 0RF losartan 100 mg tablet 100 mg PO DAILY Qty: 90 1RF escitalopram oxalate 20 mg tablet 20 mg PO DAILY Qty: 90 1RF metoprolol succinate 25 mg tablet extended release 24 hr 12.5 mg PO DAILY Qty: 45 1RF atorvastatin 10 mg tablet 10 mg PO DAILY Qty: 90 1RF gabapentin 300 mg capsule 900 mg PO TID Qty: 270 2RF furosemide 20 mg tablet 20 mg PO QAM Qty: 90 2RF baclofen 20 mg tablet 20 mg PO TID PRN (Reason: muscle spasm) Qty: 90 0RF benzonatate 200 mg capsule 200 mg PO TID PRN (Reason: cough) Qty: 30 0RF aspirin [Adult Low Dose Aspirin] 81 mg tablet,delayed release (DR/EC) 81 mg PO DAILY Qty: 90 2RF hydrocodone-acetaminophen 5-325 mg tablet 1 tablet PO Q8H PRN (Reason: pain) Qty: 30 0RF Hold Instructions: .Provider Order Date of admission: 04/18/24 18:33 Primary Care Provider: Panchito Walters Admitting Provider: Baljinder Steele Attending physician on admission: Jelena Go Condition: Stable Hospitalist MIPS Heart Failure (Exclusion) Patient has history of Heart Transplant or Left Ventricular Assistive Device?: No IF YES, STOP HERE Heart Failure (Qualifier) Patient has current or prior documentation of LVEF less than or equal to 40%, or mod/servere depressed LVSF?: No IF NO, STOP HERE
[2024-04-23] MEDS: INFLUENZA TRIVALENT VACCINE 45 MCG/0.5 ML SYRINGE IM (13:40)
[2024-04-26 13:04] LABS: Angiotensin Converting Enzyme 30 U/L (9-67)
== END 2024-04-23 14:10 | disposition home or self-care (01) ==
LOC: ANHED 14:19 → ANH3MEDSUR 18:58
PROVIDERS: Internal Medicine; Internal Medicine Hematology & Oncology; Nurse Practitioner; Nurse Practitioner Gerontology; Admitting Provider Hospitalist; Emergency Provider Physician Assistant; PCP Internal Medicine; Visit Provider Nurse Practitioner Acute Care
DX: K59.00 Constipation, unspecified (principal); R16.1 Splenomegaly, not elsewhere classified; K86.2 Cyst of pancreas; E87.6 Hypokalemia; R05.9 Cough, unspecified; R53.1 Weakness; G47.30 Sleep apnea, unspecified; I10 Essential (primary) hypertension; F43.10 Post-traumatic stress disorder, unspecified; G82.20 Paraplegia, unspecified; F41.9 Anxiety disorder, unspecified; Z20.822 Contact with and (suspected) exposure to COVID-19; Z86.73 Personal history of transient ischemic attack (TIA), and cerebral infarction without residual deficits; Z79.82 Long term (current) use of aspirin; Z79.891 Long term (current) use of opiate analgesic; Z93.6 Other artificial openings of urinary tract status; Z90.6 Acquired absence of other parts of urinary tract; Z96.82 Presence of neurostimulator; Z99.3 Dependence on wheelchair; Z23 Encounter for immunization; Z11.4 Encounter for screening for human immunodeficiency virus [HIV]
CPT/HCPCS: 36415; 71046; 71250; 74018; 74177; 80053; 81001; 82164; 83605; 83735; 84484; 84550; 85025; 85610; 85730; 86038; 86039; 86703; 86850; 86900; 86901; 87040; 87070; 87081; 87086; 87205; 87637; 87899; 90471; 90656; 93005; 94640; 96361; 96365; 96372; 96375; 96376; 99212; 99285; A9270; G0008; G0378; G0432; G0463; J1650; J2185; J2270; J2405; J7120; J7512; Q9967

== ENCOUNTER 2024-05-21 12:01 | Outpatient (CLI) | payer MEDICARE, SELFPAY ==
--- NOTE | ~2024-05-21 | MM_ITS ---
EXAMINATION: MM screening roberto BI w ramya HISTORY: Screening mammogram TECHNIQUE: Craniocaudal and mediolateral oblique 3-D tomosynthesis images were obtained and synthetic 2-D images were generated. CAD analysis was submitted and interpreted. COMPARISON: No prior mammogram is available for comparison at this institution. BREAST PARENCHYMAL COMPOSITION:Not Dense. The breasts are almost entirely fatty FINDINGS: Focal coarse calcification present more posteriorly in the right breast on MLO view. No camryn picious mass, calcification, or architectural distortion are identified in either breast to suggest m alignancy. There has been no suspicious interval change. IMPRESSION: No mammographic evidence of malignancy. Recommend routine screening mammography in one year. BI-RADS Category 2: Benign finding(s). Reviewed, dictated and finalized at [facility]
== END 2024-05-21 12:02 | disposition home or self-care (01) ==
LOC: MICIMG 12:01
PROVIDERS: PCP Internal Medicine; Visit Provider Internal Medicine
DX: Z12.31 Encounter for screening mammogram for malignant neoplasm of breast (principal)
CPT/HCPCS: 77063; 77067

== ENCOUNTER 2024-07-20 11:11 | Inpatient (IN) | payer MEDICARE, SELFPAY ==
--- NOTE | ~2024-07-20 | CT_ITS ---
EXAMINATION: CT abdomen pelvis w con DATE: 07/20/2024 13:12 INDICATION: Abdominal pain. TECHNIQUE: Computed tomography (CT) of the abdomen and pelvis was performed with 100 mL Omnipaque 350 intravenous contrast. Automated exposure control and iterative reconstruction technique were employe d. The dose-length product was 1256.43 mGy-cm. COMPARISON: CT abdomen and pelvis 04/18/2024, 03/20/23 FINDINGS: The visualized portions of the lung bases demonstrate mild atelectasis. A calcified left carolyn ng nodule is consistent with old oedematous disease. No pleural effusion. The heart size is normal. N o pericardial effusion. The liver is normal. There are multiple chronic ill-defined hypodense masses in the spleen measuring up to 10 mm, likely granulomatous disease. Calcifications in the spleen are c onsistent with old granulomatous disease. There are 12 mm and 6 mm cystic lesions in the tail of the pancreas, stable from 03/20/23. Right adrenal gland is normal. There is a 13 mm mass of fat in left ad renal gland, consistent with a myelolipoma. There is mild right hydronephrosis. There is a 9 mm cyst in left kidney. There is an ileal conduit on the left. There is fat stranding and trace fluid in the stoma. There are surgical changes in anterior abdominal wall. There is a filter in the inferior vena cava. There are no pathologically enlarged lymph nodes. There is no free intraperitoneal fluid. There are changes of right inguinal hernia repair. Epidural electrodes are noted. There are changes of ant erior and posterior fusion procedures from L1 to L5. IMPRESSION: 1. Left-sided ileal conduit with fat stranding and trace fluid in the stoma, consistent with inflamma tion versus scarring. 2. Cystic lesions of the pancreas measuring up to 12 mm, stable from 03/20/2023. The differential diag nosis includes pseudocyst, intraductal papillary mucinous neoplasm (IPMN), mucinous cystic neoplasm ( MCN), serous cystadenoma, and neuroendocrine tumor. Consider abdomen MRI without and with contrast in one year. Reviewed, dictated and finalized at location B. OPERATION MANAGER IMPRESSION: 1. Left-sided ileal conduit with fat stranding and trace fluid in the stoma, co nsistent with inflammation versus scarring. 2. Cystic lesions of the pancreas measuring up to 12 mm, stable from 03/20/2023. The differential diagnosis includes pseudocyst, intraductal papillary mucinous neoplasm (IPMN), mucinous cystic neoplasm (MCN), serous cystadenoma, and neuro endocrine tumor. Consider abdomen MRI without and with contrast in one year.
--- NOTE | ~2024-07-20 | CT_ITS ---
EXAMINATION: CT abdomen pelvis w con DATE: 07/24/2024 12:24 INDICATION: Abdominal pain TECHNIQUE: Computed tomography (CT) of the abdomen and pelvis was performed with 100 mL Omnipaque-350 intravenous contrast. Iterative reconstruction technique was employed. The dose-length product was 1 674.98 mGy-cm. COMPARISON: 07/20/2024 and 03/20/2023 FINDINGS: Calcified nodule at the basilar left lower lobe along with calcified left hilar and mediastinal lymph nodes consistent with old granulomatous disease. Mild dependent atelectasis in bilateral lower limbs additional basilar atelectasis. The dome of the right hemidiaphragm. Heart size is normal. No perica rdial or pleural effusion. Cholecystectomy clips the gallbladder fossa. Infrarenal IVC filter. Liver, spleen and right adrenal g land are normal. 1.4 cm macroscopic fat attenuation left adrenal myelolipoma. Again seen are. A coupl e chronic cystic lesions at the tail of the pancreas the larger measuring 1.3 cm. The bilateral kidne ys are normal with no hydronephrosis. Postoperative change of prior cystectomy with left lower quadra nt ileal conduit formation. Moderate diverticulosis with descending and sigmoid colon predominance an d without adjacent from trace stranding to suggest diverticulitis. 4. Mild small bowel dilation secondary to an anastomosis at the ileal conduit harvest site. No bowel obstruction. The uterus is not identified and has likely been surgically resected. No free intraperit mcintyre gas or fluid. No pathologically enlarged abdominal or pelvic lymphadenopathy. Mild upper lumbar levocurvature. L1-L5 laminectomies with L1-S1 posterior spinal fusion with bilateral vertical nati an d screw fixation at L1-L3. There are also L1-L5 anterior spinal fusion with interbody bone graft cage s at each level. Bilateral spinal stimulator leads terminating in the posterior aspect of the central canal to lower thoracic spine. IMPRESSION: 1. No acute intra-abdominal/pelvic process. 2. Status post cystectomy with left sided ileal conduit. 3. Additional postoperative change of prior cholecystectomy, hysterectomy, infrarenal IVC filter plac ement, combined instrumented lumbar anterior and posterior spinal fusion and lower thoracic spinal st imulator placement. 4. Diverticulosis. 5. No interval change since 03/20/2023 and a couple cystic lesions at the tail the pancreas measuring up to 1.3 cm. Would recommend annual pre and postcontrast MRI or follow-up. Reviewed, dictated and finalized at location A. UCE LABORER IMPRESSION: 1. No acute intra-abdominal/pelvic process. 2. Status post cystectomy with left sided ileal conduit. 3. Additional postoperative change of prior cholecystectomy, hysterectomy, infr arenal IVC filter placement, combined instrumented lumbar anterior and posterio r spinal fusion and lower thoracic spinal stimulator placement. 4. Diverticulosis. 5. No interval change since 03/20/2023 and a couple cystic lesions at the tail t he pancreas measuring up to 1.3 cm. Would recommend annual pre and postcontrast MRI or follow-up.
--- NOTE | ~2024-07-20 | NM_ITS ---
EXAMINATION: NM raine stress w perfusion DATE: 07/30/2024 12:45 INDICATION: Chest pain. TECHNIQUE: Rest images were obtained following intravenous administration of 10.5 mCi Tc99m tetrofosm in (Myoview). The patient was infused intravenously with Lexiscan (regadenoson). Then, 32.7 mCi Tc99m tetrofosmin (Myoview) was administered intravenously, and stress images were obtained. Data was rafael nstructed into short axis and horizontal and vertical long axis SPECT images. Gated SPECT images were also obtained. COMPARISON: CT abdomen and pelvis 07/24/2024 FINDINGS: There is no definite reversible or fixed perfusion abnormality to suggest ischemia or infar ction. There is no segmental wall motion abnormality. Left ventricular ejection fraction measures > 70%. IMPRESSION: 1. No definite ischemia or infarct. 2. Normal left ventricular ejection fraction measuring >70%. Reviewed, dictated and finalized at location A. N FILM EXTRUSION OPERATOR
--- NOTE | ~2024-07-20 | US_ITS ---
EXAMINATION: US venous doppler [facility] DATE: 07/26/2024 15:46 INDICATION: Lower limb edema. TECHNIQUE: Grayscale ultrasound images without and with compression and Doppler ultrasound images of the bilateral lower extremity veins were obtained. COMPARISON: None. FINDINGS: The visualized portions of right common femoral vein, profunda (deep) femoral vein, femoral vein, pop liteal vein, peroneal veins, posterior tibial veins, and greater saphenous vein outflow are patent. The visualized portions of left common femoral vein, profunda femoral vein, femoral vein, popliteal v ein, peroneal veins, posterior tibial veins, and greater saphenous vein outflow are patent. IMPRESSION: 1. No deep venous thrombosis. Reviewed, dictated and finalized at location A. UNITY DEVELOPMENT MANAGER
[2024-07-20 11:25] VITALS: BP 134/86; PULSE 74; RESP 16; TEMP 36.4; O2SAT 98
[2024-07-20 12:20] LABS: Basophils Absolute Auto 0.1 K/mm3 (0.0-0.1); Basophils Percent Auto 0.8 % (0.2-1.2); Eosinophils Absolute Auto 0.1 K/mm3 (0-0.3); Eosinophils Percent Auto 2.4 % (0-4.4); Hematocrit 43.1 % (37.0-47.0); Hemoglobin 14.1 g/dL (12.0-15.0); Immature Granulocyte Absolute 0.02 K/mm3 (0.00-0.031); Immature Granulocyte Percent A 0.3 % (0-0.5); Lymphocytes Absolute Auto 1.49 K/mm3 (0.9-3.2); Lymphocytes Percent Auto 25.2 % (18.3-44.2); Mean Corpuscular HGB Conc 32.7 g/dl (32-36); Mean Corpuscular Hemoglobin 27.9 pg (26-34); Mean Corpuscular Volume 85.2 fl (80-100); Mean Platelet Volume 9.6 fl (7.4-10.4); Monocytes Absolute Auto 0.4 K/mm3 (0.1-0.6); Monocytes Percent Auto 6.9 % (2.6-8.5); Neutrophils Absolute Auto 3.8 K/mm3 (1.3-6.7); Neutrophils Percent Auto 64.4 % (45.5-73.1); Platelet Count Result 201 k/mm3 (150-375); Red Blood Count 5.06 M/mm3 (4.2-5.4); Red Cell Distribution Width 13.6 % (11.5-14.5); White Blood Count 5.9 K/mm3 (4.5-10.0)
[2024-07-20 12:31] LABS: INR 1.1
[2024-07-20 12:32] LABS: Partial Thromboplastin Time 26.7 Seconds (22.3-36.8)
[2024-07-20 12:33] LABS: Alanine Aminotransferase 21 U/L (6-35); Albumin Level 4.1 g/dL (3.5-5.1); Alkaline Phosphatase 80 U/L (38-126); Anion Gap 9 mmol/L (4-12); Aspartate Amino Transferase 27 U/L (14-36); Blood Urea Nitrogen 17 mg/dL (7-17); Calcium 8.7 mg/dL (8.4-10.2); Carbon Dioxide 30 mmol/L (22-30); Chloride 102 mmol/L (98-107); Estimated CRCL calculation 113 ml/min; Estimated Glomerular Filt Rate > 60; Glucose 108 mg/dL (65-110); Potassium 3.9 mmol/L (3.4-5.0); Sodium 141 mmol/L (137-145)
[2024-07-20 12:47] LABS: Add Urine Microscopic? YES; Appearance Urine Cloudy (Clear); Bacteria Urine 4+ /hpf; Bilirubin Urine Negative (Negative); Blood Urine 1+ (Negative); Color Urine Yellow (Yellow); Glucose Urine UA Negative (Negative); Ketones Urine Negative (Negative); Leukocyte Esterase Ur 2+ LEU/UL (Negative); Need Manual Microscopic Reviewed; Nitrate Urine Positive (Negative); Protein Urine Negative (Negative); Specific Grav Ur 1.016 (1.001-1.035); Squamous Epithelial Cell Urine Few /hpf (Few); WBC Urine 51-100 /hpf (0-3); pH Urine 5.5 (5.0-9.0)
[2024-07-20 12:53] VITALS: BP 138/104; PULSE 68; RESP 14; O2SAT 99
--- NOTE | 2024-07-20 13:51 | ED_ITS ---
HPI - General Adult General Chief complaint: Urogenital-Female Stated complaint: ostomy infection Time Seen by Provider: 07/20/24 11:43 History of Present Illness HPI narrative: 58-year-old female with history of urostomy presents to the emergency department for evaluation of urinary symptoms since April. Patient does have a history of bladder injury and spinal cord injury, patient did have some standing Carreon catheter but also had multiple urinary tract infections. Approximately 3 years ago patient had a urostomy placed [facility] Patient reports that she did have a urinary tract infection in March and was admitted for antibiotics. Patient reports that since April she has had these urinary symptoms but has had worsening pain in the left lower quadrant over the last few weeks. Patient reports that the reason she had not been evaluated prior was that she had anxiety about presenting to the emergency department. Related Data Home Medications ?Medication ?Instructions ?Recorded ?Confirmed ?Last Taken ?Type polyethylene glycol 3350 17 gram 17 g PO DAILY PRN constipation 07/20/24 07/20/24 07/19/24 History oral powder packet (Miralax) sennosides 8.6 mg-docusate sodium 1 tab-cap PO BID PRN constipation 07/20/24 07/20/24 07/19/24 History 50 mg tablet (Senokot-S) Allergies Allergy/AdvReac Type Severity Reaction Status Date / Time adhesive tape Allergy Unknown Unknown Verified 07/20/24 11:32 Penicillins Allergy Unknown Unknown Verified 07/20/24 11:32 Sulfa (Sulfonamide Allergy Unknown Unknown Verified 07/20/24 11:32 Antibiotics) vancomycin Allergy Unknown Unknown Verified 07/20/24 11:32 latex Allergy Unknown Unknown Uncoded 07/20/24 11:32 Review of Systems 2 Review of Systems: All systems reviewed & are unremarkable except as noted in HPI and below PMFSH Past Medical History Medical History (Updated 07/20/24 @ 18:05 by aMrielos Spence APRN) Sleep apnea History of MRSA infection Depression Anemia Fibromyalgia Scoliosis DDD (degenerative disc disease) Arthritis Irritable bowel Hemorrhoids GERD (gastroesophageal reflux disease) Asthma HLD (hyperlipidemia) Heart murmur CHF (congestive heart failure) Atrial fibrillation Anxiety Insomnia Obesity (BMI 30-39.9) Paraplegia PTSD (post-traumatic stress disorder) Stroke Hypertension Allergies Surgical History Surgical History (Updated 07/20/24 @ 16:10 by Marielos Spence APRN) History of tonsillectomy History of total cystectomy History of hernia repair History of cholecystectomy History of appendectomy History of cardiac catheterization History of ileal conduit History of back surgery Family History Family History Father Hypertension Cancer Mother Cancer Hypertension Anxiety Grandparent Cancer Social History Social History Smoking status: Never smoker Alcohol intake: never Substance use: never Substance use type: does not use Do You Feel Safe in your Home?: Yes Lack of Transportation: No Lack of Food: Never True Current Housing: I Have Housing Concerned About Future Housing: No Difficulty Paying Gas/Electric Bills: No Difficulty Paying for Meds: No Currently Unemployed: No Education: High School Diploma/GED Difficulty w/ Childcare or Family Care: No Spiritual care concerns: No Exam 2 Narrative: APPEARANCE: Well appearing, no pain, no distress, well-nourished. HEAD: normocephalic, atraumatic. EYES: PERRLA/EOMI, conjunctivae clear. NOSE: Normal no drainage EARS:TMS clear with good light reflex. THROAT: Pharynx clear, no exudate. NECK: Supple. No adenopathy, no masses. RESPIRATORY: Airway patent, respirations nonlabored. Clear to auscultation bilaterally, no rales, rhonchi, wheezing. CARDIOVASCULAR: Regular rate and rhythm without murmurs rubs or gallops. ABDOMINAL: Lower abdominal tenderness MUSCULOSKELETAL: Moves all extremities. Strength/ROM intact, No edema, No calf tenderness. NEURO: Alert. Cranial nerves II through XII intact. Grossly intact SKIN: Well-appearing external appearance of the ostomy Course Vital Signs Vital signs: Vital Signs Temperature 97.6 F 07/20/24 11:25 Pulse Rate 74 07/20/24 11:25 Respiratory Rate 16 07/20/24 11:25 Blood Pressure 134/86 07/20/24 11:25 Pulse Oximetry 98 07/20/24 11:25 Oxygen Delivery Room Air 07/20/24 11:25 Temperature 98.3 F 07/20/24 16:07 Pulse Rate 74 07/20/24 16:07 Respiratory Rate 18 07/20/24 16:07 Blood Pressure 123/60 07/20/24 16:07 Pulse Oximetry 100 07/20/24 16:07 Oxygen Delivery Room Air 07/20/24 16:00 Medical Decision Making MDM Narrative Medical decision making narrative: 58-year-old female with history of urostomy present to the emergency department for evaluation for urinary symptoms. Patient is afebrile with no leukocytosis and hemoglobin of 14.1, patient has an INR of 1.1, patient has a creatinine of 0.56 which is similar to her baseline. Patient's urine was nitrate positive with 50-100 white blood cells and +[address] scan was ordered to evaluate for her abdominal pain and did show some associated fat stranding. Patient does have urine cultures showing multi resistance but was sensitive to meropenem. Blood cultures ordered, urine cultures were ordered patient was started on meropenem. Patient was also provided medications for pain control. Case was discussed with hospitalist patient was accepted for admission. Patient family updated the results of the workup patient was comfortable with plan for admission. All questions concerns were addressed. Differential Diagnosis Differential Diagnosis: Colitis, diverticulitis, UTI Medical Records Medical records reviewed: Yes I reviewed the external patient's medical records. Vital Signs Vital Signs: Vital Signs Temperature 97.6 F 07/20/24 11:25 Pulse Rate 74 07/20/24 11:25 Respiratory Rate 16 07/20/24 11:25 Blood Pressure 134/86 07/20/24 11:25 Pulse Oximetry 98 07/20/24 11:25 Oxygen Delivery Room Air 07/20/24 11:25 Temperature 98.3 F 07/20/24 16:07 Pulse Rate 74 07/20/24 16:07 Respiratory Rate 18 07/20/24 16:07 Blood Pressure 123/60 07/20/24 16:07 Pulse Oximetry 100 07/20/24 16:07 Oxygen Delivery Room Air 07/20/24 16:00 Lab Data Lab results reviewed: Yes I reviewed the patient's lab results. 07/20/24 12:08 07/20/24 12:08 Labs: Lab Results 07/20/24 Range/Units 12:08 WBC 5.9 (4.5-10.0) K/mm3 RBC 5.06 (4.2-5.4) M/mm3 Hgb 14.1 (12.0-15.0) g/dL Hct 43.1 (37.0-47.0) % MCV 85.2 (80-100) fl MCH 27.9 (26-34) pg MCHC 32.7 (32-36) g/dl RDW 13.6 (11.5-14.5) % Plt Count 201 (150-375) k/mm3 MPV 9.6 (7.4-10.4) fl Immature Gran % (Auto) 0.3 (0-0.5) % Neut % (Auto) 64.4 (45.5-73.1) % Lymph % (Auto) 25.2 (18.3-44.2) % [place] % (Auto) 6.9 (2.6-8.5) % Eos % (Auto) 2.4 (0-4.4) % Baso % (Auto) 0.8 (0.2-1.2) % Lymph # (Auto) 1.49 (0.9-3.2) K/mm3 [place] # (Auto) 0.4 (0.1-0.6) K/mm3 Eos # (Auto) 0.1 (0-0.3) K/mm3 Baso # (Auto) 0.1 (0.0-0.1) K/mm3 Abs Immat Gran (auto) 0.02 (0.00-0.031) K/mm3 Absolute Neuts (auto) 3.8 (1.3-6.7) K/mm3 Absolute Nucleated RBC 0.000 (0.0-0.012) K/mm3 Nucleated RBC % 0.0 (0.0-0.2) % PT 14.0 (11.1-14.7) Seconds INR 1.1 APTT 26.7 (22.3-36.8) Seconds Sodium 141 (137-145) mmol/L Potassium 3.9 (3.4-5.0) mmol/L Chloride 102 (98-107) mmol/L Carbon Dioxide 30 (22-30) mmol/L Anion Gap 9 (4-12) mmol/L BUN 17 (7-17) mg/dL Creatinine 0.56 L (0.7-1.0) mg/dL Estim Creat Clear Calc 113 ml/min Estimated GFR > 60 (59 - ) Glucose 108 (65-110) mg/dL Calcium 8.7 (8.4-10.2) mg/dL Total Bilirubin 1.0 (0.2-1.3) mg/dL AST 27 (14-36) U/L ALT 21 (6-35) U/L Alkaline Phosphatase 80 (38-126) U/L Total Protein 7.0 (6.3-8.2) g/dL Albumin 4.1 (3.5-5.1) g/dL Urine Color Yellow (Yellow) Urine Appearance Cloudy H (Clear) Urine pH 5.5 (5.0-9.0) Ur Specific [place] 1.016 (1.001-1.035) Urine Protein Negative (Negative) mg/dL Urine Glucose (UA) Negative (Negative) mg/dL Urine Ketones Negative (Negative) mg/dL Ur Blood (Man) 1+ H (Negative) Urine Nitrate Positive H (Negative) Urine Bilirubin Negative (Negative) Urine Urobilinogen 1.0 (<2.0) mg/dL Add Ur Microanalysis Reviewed Leukocyte Esterase Rfl 2+ H (Negative) ERICK/UL Urine RBC 3-5 H (0-2) /hpf Urine WBC 51-100 H (0-3) /hpf Ur Squamous Epith Cells Few (Few) /hpf Urine Bacteria 4+ H /hpf Urine Casts 3-5 Imaging Data Radiologist's impression: Impressions Abdomen/Pelvis CT 07/20/24 13:16 IMPRESSION: 1. Left-sided ileal conduit with fat stranding and trace fluid in the stoma, consistent with inflammation versus scarring. 2. Cystic lesions of the pancreas measuring up to 12 mm, stable from 03/20/2023. The differential diagnosis includes pseudocyst, intraductal papillary mucinous neoplasm (IPMN), mucinous cystic neoplasm (MCN), serous cystadenoma, and neuroendocrine tumor. Consider abdomen MRI without and with contrast in one year. Discharge Plan Discharge Clinical Impression: Urinary tract infection Qualifiers: Urinary tract infection type: acute cystitis Hematuria presence: without hematuria Qualified Code(s): N30.00 - Acute cystitis without hematuria Patient Disposition: Still a Patient Condition: Stable
[2024-07-20] MEDS: HYDROmorphone HCL INJ (*CRX) 1 MG/ML SYR IV PUSH (14:16)
[2024-07-20] MEDS: MEROPENEM 1 GM/NS 100 ML 1 GM/100 ML BAG IVPB ×2 (14:37→21:37)
[2024-07-20] MEDS: ONDANSETRON INJ 4 MG/2 ML VIAL IV PUSH (14:58)
[2024-07-20 15:00] VITALS: BP 139/73; PULSE 75; RESP 16; O2SAT 98
--- NOTE | 2024-07-20 15:50 | ADMGEN ---
This patient, Angelina Mcnulty, was admitted to [facility] Surg Room 332-02. Patient/family oriented to hospital policies and general routines including ID bracelet, bed and alarms, visiting hours, pain management, procedures, bathroom and other care routines, personal items, smoking policy, room service/diet, and visiting hours. Information on how to activate the Rapid Response Team has been discussed. Patient/Family are encouraged to report perceived risks to care and to ask questions if they do not understand what they are told or what they should do.
[2024-07-20 16:00] VITALS: BMI 35.0
--- NOTE | 2024-07-20 16:00 | P.HP_ITS ---
H&P: HPI History of Present Illness Date/Time: 07/20/24 16:00 Chief Complaint: Foul Odor from Urostomy Narrative: 58 y/o F presents here with a foul odor from her urostomy with a PMH of sleep apnea on CPAP, MRSA infection, scoliosis, anemia, irritable bowel, GERD, HLD, CHF, AFib, insomnia, paraplegia, urostomy, stroke, and hypertension. The patient presents here from home for further evaluation of a malodorous urostomy and inflamed urostomy stoma. She reports symptom onset approximately 3 weeks ago, however has significantly worsened in the last 4 days. She reports her urine output has become cloudy and has had an increase in sediment/slimey texture when she cleaned her bag. Patient also endorses accompanying chills, weakness, nausea, and lightheadedness. Patient also reports that her stoma color has deepened and her stoma felt crusty and now has underlying swelling. Patient also reports diarrhea, estimates she has had 3 episodes in the last 24 hours and has had a foul odor. Initial VS at presentation: 97.6? F, HR 74, RR 16, 134/86, and 98% on RA. ED workup showed: No leukocytosis, no anemia, normal coags, no significant electrolyte derangements, creatinine 0.56 and GFR >60. UA was cloudy with 1+ blood, positive nitrates, 2+ leuks, 3-5 RBC, 51-100 WBC, 4+ bacteria, and few epithelial cells. CT of the abdomen/pelvis showed a life sided ileal conduit with fat stranding and trace fluid in the stoma (consistent with inflammation versus scarring), cystic lesions of the pancreas measuring up to 12 mm (stable from 03/20/2023). Review of Systems Review of Systems: All systems reviewed & are unremarkable except as noted in HPI and below PMFSH Past Medical History Medical History (Updated 07/20/24 @ 18:05 by Marielos Spence APRN) Sleep apnea History of MRSA infection Depression Anemia Fibromyalgia Scoliosis DDD (degenerative disc disease) Arthritis Irritable bowel Hemorrhoids GERD (gastroesophageal reflux disease) Asthma HLD (hyperlipidemia) Heart murmur CHF (congestive heart failure) Atrial fibrillation Anxiety Insomnia Obesity (BMI 30-39.9) Paraplegia PTSD (post-traumatic stress disorder) Stroke Hypertension Allergies Surgical History Surgical History (Updated 07/20/24 @ 16:10 by Marielos Spence APRN) History of tonsillectomy History of total cystectomy History of hernia repair History of cholecystectomy History of appendectomy History of cardiac catheterization History of ileal conduit History of back surgery Family History Family History Father Hypertension Cancer Mother Cancer Hypertension Anxiety Grandparent Cancer Social History Social History Smoking status: Never smoker Alcohol intake: never Substance use: never Substance use type: does not use Do You Feel Safe in your Home?: Yes Lack of Transportation: No Lack of Food: Never True Current Housing: I Have Housing Concerned About Future Housing: No Difficulty Paying Gas/Electric Bills: No Difficulty Paying for Meds: No Currently Unemployed: No Education: High School Diploma/GED Difficulty w/ Childcare or Family Care: No Spiritual care concerns: No Meds Home Medications and Allergies Home Medications ?Medication ?Instructions ?Recorded ?Confirmed ?Type alprazolam 0.25 mg tablet 0.25 mg PO TID PRN anxiety #60 tabs 02/17/23 07/20/24 Rx diclofenac sodium 1 % topical gel 2 g topical QID #100 grams 02/17/23 07/20/24 Rx (Voltaren Arthritis Pain) losartan 100 mg tablet 100 mg PO DAILY #90 tabs 02/17/23 07/20/24 Rx olanzapine 5 mg tablet 5 mg PO DAILY #30 tabs 02/17/23 07/20/24 Rx zolpidem 5 mg tablet (Ambien) 5 mg PO QHS #30 tabs 02/17/23 07/20/24 Rx atorvastatin 10 mg tablet 10 mg PO DAILY #90 tabs 08/22/23 07/20/24 Rx escitalopram oxalate 20 mg tablet 20 mg PO DAILY #90 tabs 08/22/23 07/20/24 Rx metoprolol succinate 25 mg 12.5 mg (1/2 x 25 mg) PO DAILY #45 08/22/23 07/20/24 Rx tablet,extended release 24 hr tabs gabapentin 300 mg capsule 900 mg (3 x 300 mg) PO TID #270 09/15/23 07/20/24 Rx caps furosemide 20 mg tablet 20 mg PO QAM #90 tabs 12/29/23 07/20/24 Rx aspirin 81 mg tablet,delayed 81 mg PO DAILY #90 tabs 04/15/24 07/20/24 Rx release (Adult Low Dose Aspirin) ondansetron 4 mg disintegrating 4 mg PO Q8H PRN nausea and 05/11/24 07/20/24 Rx tablet vomiting #20 tabs ropinirole 0.5 mg tablet 0.5 mg PO BID #180 tabs 07/07/24 07/20/24 Rx hydrocodone 5 mg-acetaminophen 325 1 tablet PO Q8H PRN pain #30 tabs 07/16/24 07/20/24 Rx mg tablet baclofen 20 mg tablet 20 mg PO TID PRN muscle spasm #90 07/20/24 07/20/24 Rx tabs polyethylene glycol 3350 17 gram 17 g PO DAILY PRN constipation 07/20/24 07/20/24 History oral powder packet (Miralax) sennosides 8.6 mg-docusate sodium 1 tab-cap PO BID PRN constipation 07/20/24 07/20/24 History 50 mg tablet (Senokot-S) Allergies Allergy/AdvReac Type Severity Reaction Status Date / Time adhesive tape Allergy Unknown Unknown Verified 07/20/24 11:32 Penicillins Allergy Unknown Unknown Verified 07/20/24 11:32 Sulfa (Sulfonamide Allergy Unknown Unknown Verified 07/20/24 11:32 Antibiotics) vancomycin Allergy Unknown Unknown Verified 07/20/24 11:32 latex Allergy Unknown Unknown Uncoded 07/20/24 11:32 Vital Signs Vital Signs - 24 hr 07/20/24 11:25 07/20/24 12:53 07/20/24 15:00 Temperature 97.6 F Pulse Rate 74 68 75 Respiratory Rate 16 14 16 Blood Pressure 134/86 138/104 H 139/73 Pulse Oximetry 98 99 98 Oxygen Delivery Room Air Exam Const: General: comfortable and no acute distress Other: , female, modestly ill-appearing. HENMT: Face/Nose/Sinus: Normal nares present Mouth: Yes moist mucous membranes Eyes: General: appearance normal, both eyes and all related structures Sclera: sclerae normal Pupils: Equal, round and reactive pupils present EOM: EOMs intact bilaterally Resp: Effort & Inspection: normal respiratory effort Auscultation: clear to auscultation bilaterally Cardio: Rate: regular rate Rhythm: regular rhythm Other: + murmur, no rub for ectopy. GI: Other: Abdomen soft and nondistended. Significant tenderness near the umbilicus, beneath stoma, and left mid lateral region. Stoma pink and moist. Mild firmness beneath stoma with some extension midline and lateral. : Other: Urostomy stoma pink and moist. creamy/stringy discharge as well as cloudy urine from stoma. Skin: General skin exam: normal color and no rashes or lesions noted Wounds: no wounds Neuro: Speech: normal speech Sensory Exam: normal sensation Other: 5/5 in bilateral upper extremities. A&O x4. Extrem: General: normal to inspection Psych: Mental Status: mental status grossly normal Affect: normal affect Other: Good insight and judgment, very pleasant H&P: Results Labs Labs: Short CBC 07/20/24 Range/Units 12:08 WBC 5.9 (4.5-10.0) K/mm3 Hgb 14.1 (12.0-15.0) g/dL Hct 43.1 (37.0-47.0) % Plt Count 201 (150-375) k/mm3 BMP 07/20/24 12:08 Sodium 141 Potassium 3.9 Chloride 102 Carbon Dioxide 30 BUN 17 Creatinine 0.56 L Glucose 108 Calcium 8.7 Liver Function 07/20/24 Range/Units 12:08 Total Bilirubin 1.0 (0.2-1.3) mg/dL AST 27 (14-36) U/L ALT 21 (6-35) U/L Alkaline Phosphatase 80 (38-126) U/L Albumin 4.1 (3.5-5.1) g/dL Urine 07/20/24 Range/Units 12:08 Urine Color Yellow (Yellow) Urine Appearance Cloudy H (Clear) Urine pH 5.5 (5.0-9.0) Ur Specific [place] 1.016 (1.001-1.035) Urine Protein Negative (Negative) mg/dL Urine Glucose (UA) Negative (Negative) mg/dL Assessment and Plan Assessment and plan (1) Urinary tract infection: Qualifiers: Hematuria presence: without hematuria Urinary tract infection type: acute cystitis Qualified Code(s): N30.00 - Acute cystitis without hematuria Code(s): N39.0 - Urinary tract infection, site not specified Status: Acute Assessment and Plan: - did not meet SIRS criteria. Blood cultures obtained in ED on 07/20, follow. - CT abdomen/pelvis: 1. Left-sided ileal conduit with fat stranding and trace fluid in the stoma, consistent with inflammation versus scarring. 2. Cystic lesions of the pancreas measuring up to 12 mm, stable from 03/20/2023. The differential diagnosis includes pseudocyst, intraductal papillary mucinous neoplasm (IPMN), mucinous cystic neoplasm (MCN), serous cystadenoma, and neuroendocrine tumor. Consider abdomen MRI without and with contrast in one year. - UA: cloudy, 1+ blood, positive nitrates, 2+ leuks, 3-5 RBC, 51-100 WBC, 4+ bacteria, and few epithelial cells - UC pending - previous micro reviewed, Enterobacter with multiple resistances on 03/20/2023. Was susceptible to meropenem. - started on meropenem on 07/20 - IV fluids: 100 mL/hour x1 L. - analgesics and antipyretics p.r.n. (2) Hypertension: Qualifiers: Hypertension type: primary hypertension Qualified Code(s): I10 - Essential (primary) hypertension Code(s): I10 - Essential (primary) hypertension Status: Chronic Assessment and Plan: - chronic, currently 123/60 - continue home medications: Losartan, metoprolol - monitor (3) Sleep apnea: Qualifiers: Sleep apnea type: unspecified type Qualified Code(s): G47.30 - Sleep apnea, unspecified Code(s): G47.30 - Sleep apnea, unspecified Status: Acute Assessment and Plan: - continue home CPAP Plan Will attempt to obtain wound culture of stoma due to concern for infection. MRSA PCR pending, history of MRSA infection. Patient also reporting diarrhea with foul smell/change in appearance, will add stool culture and C diff. Diet: Heart healthy GI Prophylaxis: Not currently indicated DVT Prophylaxis: SCDs Lines: Peripheral Code Status: Full code Quality VTE Prophylaxis VTE prophylaxis: mechanical ordered Hospitalist MIPS Advance Care Plan I have confirmed that the patient's Advanced Care Plan is present, code status is documented, or surrogate decision maker is listed in patient medical record.: Yes Medication Reconciliation I have utilized all available resources to obtain, update and review the patients current medications (includes all prescriptions, OTC, herbals, cannabis, and nutritional supplements).: Yes
[2024-07-20 16:07] VITALS: BP 123/60; PULSE 74; RESP 18; TEMP 36.8; O2SAT 100
[2024-07-20] MEDS: HYDROcodone/acetaminophen (*CRX) 5-325 MG TABLET 1 TAB PO (16:26)
[2024-07-20] MEDS: SODIUM CHLORIDE 0.9% IV 1,000 ML 100 ML IV CONT (16:26)
[2024-07-20] MEDS: HYDROmorphone HCL INJ (*CRX) 1 MG/ML SYR 0.5 MG IV PUSH (21:35)
[2024-07-20] MEDS: rOPINIRole HCL 0.5 MG TABLET PO (21:52)
[2024-07-20] MEDS: ZOLPIDEM TARTRATE (*CRX) 5 MG TABLET PO (21:52)
[2024-07-20 21:56] VITALS: BP 125/76; PULSE 66; RESP 18; TEMP 36.4; O2SAT 97
[2024-07-21] MEDS: HYDROmorphone HCL INJ (*CRX) 1 MG/ML SYR 0.5 MG IV PUSH ×4 (00:54→21:50)
[2024-07-21] MEDS: HYDROcodone/acetaminophen (*CRX) 5-325 MG TABLET 1 TAB PO ×2 (04:13→20:21)
[2024-07-21] MEDS: ONDANSETRON INJ 4 MG/2 ML VIAL IV PUSH (04:15)
[2024-07-21] MEDS: MEROPENEM 1 GM/NS 100 ML 1 GM/100 ML BAG IVPB ×3 (05:20→21:47)
[2024-07-21 05:49] LABS: MRSA (PCR) NOT DETECTED (NOT DETECTE)
[2024-07-21 06:00] VITALS: BP 101/60; PULSE 68; RESP 20; TEMP 36.3; O2SAT 97
[2024-07-21 06:37] LABS: Basophils Percent Auto 0.6 % (0.2-1.2); Eosinophils Absolute Auto 0.1 K/mm3 (0-0.3); Eosinophils Percent Auto 2.1 % (0-4.4); Hematocrit 36.7 % (37.0-47.0); Immature Granulocyte Absolute 0.02 K/mm3 (0.00-0.031); Immature Granulocyte Percent A 0.3 % (0-0.5); Lymphocytes Absolute Auto 1.85 K/mm3 (0.9-3.2); Lymphocytes Percent Auto 29.6 % (18.3-44.2); Mean Corpuscular HGB Conc 32.7 g/dl (32-36); Mean Corpuscular Hemoglobin 28.3 pg (26-34); Mean Corpuscular Volume 86.6 fl (80-100); Mean Platelet Volume 10.1 fl (7.4-10.4); Monocytes Absolute Auto 0.5 K/mm3 (0.1-0.6); Monocytes Percent Auto 7.9 % (2.6-8.5); Neutrophils Absolute Auto 3.7 K/mm3 (1.3-6.7); Neutrophils Percent Auto 59.5 % (45.5-73.1); Platelet Count Result 187 k/mm3 (150-375); Red Blood Count 4.24 M/mm3 (4.2-5.4); Red Cell Distribution Width 13.9 % (11.5-14.5); White Blood Count 6.2 K/mm3 (4.5-10.0)
[2024-07-21 06:46] LABS: Anion Gap 9 mmol/L (4-12); Blood Urea Nitrogen 17 mg/dL (7-17); Calcium 8.4 mg/dL (8.4-10.2); Carbon Dioxide 27 mmol/L (22-30); Chloride 99 mmol/L (98-107); Estimated CRCL calculation 106 ml/min; Estimated Glomerular Filt Rate > 60; Glucose 112 mg/dL (65-110); Potassium 3.8 mmol/L (3.4-5.0); Sodium 135 mmol/L (137-145)
[2024-07-21] MEDS: GABAPENTIN 300 MG CAPSULE 900 MG PO ×3 (09:44→20:16)
[2024-07-21 09:46] VITALS: PULSE 86
[2024-07-21] MEDS: METOPROLOL SUCCINATE EXT REL 12.5 MG TABCR PO (09:46)
[2024-07-21] MEDS: ASPIRIN 81 MG ENTERIC TABLET PO (09:46)
[2024-07-21] MEDS: ATORVASTATIN 10 MG TABLET PO (09:46)
[2024-07-21] MEDS: rOPINIRole HCL 0.5 MG TABLET PO ×2 (09:46→20:21)
[2024-07-21] MEDS: DICLOFENAC SODIUM 1% 100 GM GEL (*BKC) 1 APPLIC TOPICAL ×3 (09:47→20:16)
[2024-07-21] MEDS: LOSARTAN POTASSIUM 100 MG TABLET PO (09:47)
[2024-07-21] MEDS: FUROSEMIDE 20 MG TABLET PO (09:47)
[2024-07-21] MEDS: ESCITALOPRAM OXALATE 10 MG TABLET 20 MG PO (09:47)
[2024-07-21] MEDS: OLANZapine 5 MG TABLET PO (09:47)
--- NOTE | 2024-07-21 10:03 | P.PNIM_ITS ---
Progress Note: A&P Assessment and Plan (1) Urinary tract infection: Qualifiers: Hematuria presence: without hematuria Urinary tract infection type: acute cystitis Qualified Code(s): N30.00 - Acute cystitis without hematuria Code(s): N39.0 - Urinary tract infection, site not specified Status: Acute Assessment and Plan: Patient with HX of urostomy * CT abdomen/pelvis: 1. Left-sided ileal conduit with fat stranding and trace fluid in the stoma, consistent with inflammation versus scarring. 2. Cystic lesions of the pancreas measuring up to 12 mm, stable from 03/20/2023. The differential diagnosis includes pseudocyst, intraductal papillary mucinous neoplasm (IPMN), mucinous cystic neoplasm (MCN), serous cystadenoma, and neuroendocrine tumor. Consider abdomen MRI without and with contrast in one year. * Wound culture of stoma * UA: cloudy, 1+ blood, positive nitrates, 2+ leuks, 3-5 RBC, 51-100 WBC, 4+ bacteria, and few epithelial cells * UC pending * previous micro reviewed, Enterobacter with multiple resistances on 03/20/2023. Was susceptible to meropenem. * started on meropenem on 07/20 pending cultures * IV fluids: 100 mL/hour x1 L. * analgesics and antipyretics p.r.n. * Blood Cultures NGTD (2) Hypertension: Qualifiers: Hypertension type: primary hypertension Qualified Code(s): I10 - Essential (primary) hypertension Code(s): I10 - Essential (primary) hypertension Status: Chronic Assessment and Plan: * chronic, currently 123/60 * continue home medications: Losartan, metoprolol * BP monitoring per unit protocol (3) Sleep apnea: Qualifiers: Sleep apnea type: unspecified type Qualified Code(s): G47.30 - Sleep apnea, unspecified Code(s): G47.30 - Sleep apnea, unspecified Status: Acute Assessment and Plan: * continue home CPAP (4) Diarrhea: Code(s): R19.7 - Diarrhea, unspecified Status: Acute Assessment and Plan: * C-diff and stool cultures * No BM since admission * Monitor electrolytes replenish as need Plan Code status: Full code per patient DVT prophylaxis: SCD's PT/OT notes: PT/OT pending Disposition: Patient continues admission to the medical unit for further evaluation and treatment possible urinary tract infection or possible stoma infection at the urostomy site will continue with IV meropenem pending cultures. Time Spent With Patient Time with patient: 15 - 25 minutes Subjective Date/time seen: 07/21/24 10:03 Interval history: Patient is a 58-year-old female who admitted for further evaluation and treatment of his UTI and possible infection to urostomy. 07/21/2024: Assumed CARE Patient with no complaints except generalized weakness likely secondary to UTI, PT/OT ordered. meropenem IV pending cultures for UA. normal WBC and afebrile but patient did report chills overnight. Review of Systems Review of Systems: All systems reviewed & are unremarkable except as noted in HPI and below Exam Narrative: swelling under stoma that is firm without overlying erythema, creamy/stringy d/c from stoma, very tender. para. slight tachy. otherwise fine. Const: General: comfortable and no acute distress Other: , female, modestly ill-appearing. HENMT: Face/Nose/Sinus: Normal nares present Mouth: Yes moist mucous membranes Eyes: General: appearance normal, both eyes and all related structures Sclera: sclerae normal Pupils: Equal, round and reactive pupils present EOM: EOMs intact bilaterally Resp: Effort & Inspection: normal respiratory effort Auscultation: clear to auscultation bilaterally Cardio: Rate: regular rate Rhythm: regular rhythm Other: + murmur, no rub for ectopy. GI: Other: Abdomen soft and nondistended. Significant tenderness near the umbilicus, beneath stoma, and left mid lateral region. Stoma pink and moist. Mild firmness beneath stoma with some extension midline and lateral. : Other: Urostomy stoma pink and moist. creamy/stringy discharge as well as cloudy urine from stoma. Skin: General skin exam: normal color and no rashes or lesions noted Wounds: no wounds Neuro: Cranial nerves: Yes Equal, round and reactive pupils present Speech: normal speech Sensory Exam: normal sensation Other: 5/5 in bilateral upper extremities. A&O x4. Extrem: General: normal to inspection Psych: Mental Status: mental status grossly normal Affect: normal affect Other: Good insight and judgment, very pleasant Objective Data Vital Signs Vital Signs: Vital Signs - 24 hr 07/20/24 11:25 07/20/24 12:53 07/20/24 15:00 Temperature 97.6 F Pulse Rate 74 68 75 Respiratory Rate 16 14 16 Blood Pressure 134/86 138/104 H 139/73 Pulse Oximetry 98 99 98 Oxygen Delivery Room Air 07/20/24 16:00 07/20/24 16:07 07/20/24 21:56 Temperature 98.3 F 97.6 F Pulse Rate 74 66 Respiratory Rate 18 18 Blood Pressure 123/60 125/76 Pulse Oximetry 100 97 Oxygen Delivery Room Air 07/21/24 06:00 07/21/24 09:46 Temperature 97.4 F L Pulse Rate 68 86 Respiratory Rate 20 Blood Pressure 101/60 Pulse Oximetry 97 Oxygen Delivery Intake/Output Intake/Output: Intake & Output 07/18/24 07/19/24 07/20/24 07/21/24 23:59 23:59 23:59 23:59 Intake Total 1180 680 Output Total 2200 Balance 1180 -1520 Meds/Results Medications: Active Medications Generic Name Dose Route Start Last Admin Trade Name Freq PRN Reason Stop Dose Admin Acetaminophen 650 mg 07/20/24 16:11 Acetaminophen 325 Mg Tablet PO Q6H PRN Mild Pain (1-3) or Fever Hydrocodone Bitart/Acetaminophen 1 tab 07/20/24 16:11 07/21/24 04:13 Hydrocodone/Acetaminophen (*Crx) 5-325 Mg Tablet PO 1 tab Q6H PRN Administration Pain Rated 4-6 Alprazolam 0.25 mg 07/20/24 21:44 Alprazolam (*Crx) 0.25 Mg Tablet PO TID PRN anxiety Aspirin 81 mg 07/21/24 09:00 07/21/24 09:46 Aspirin 81 Mg Enteric Tablet PO 81 mg DAILY ANA Administration Atorvastatin Calcium 10 mg 07/21/24 09:00 07/21/24 09:46 Atorvastatin 10 Mg Tablet PO 10 mg DAILY ANA Administration Baclofen 20 mg 07/20/24 21:44 Baclofen 10 Mg Tablet PO TID PRN muscle spasm Diclofenac Sodium 1 applic 07/21/24 09:00 07/21/24 09:47 Diclofenac Sodium 1% 100 Gm Gel (*Bkc) TOPICAL 1 applic QID ANA Administration Escitalopram Oxalate 20 mg 07/21/24 09:00 07/21/24 09:47 Escitalopram Oxalate 10 Mg Tablet PO 20 mg DAILY ANA Administration Furosemide 20 mg 07/21/24 09:00 07/21/24 09:47 Furosemide 20 Mg Tablet PO 20 mg QAM ANA Administration Gabapentin 900 mg 07/21/24 09:00 07/21/24 09:44 Gabapentin 300 Mg Capsule PO 900 mg TID ANA Administration Hydromorphone HCl 0.5 mg 07/20/24 14:12 07/21/24 00:54 Hydromorphone Hcl Inj (*Crx) 1 Mg/Ml Syr IV PUSH 0.5 mg Q4H PRN Administration Pain Rated 7-10 Meropenem 1 gm in 100 mls @ 200 mls/hr 07/20/24 22:00 07/21/24 05:20 IVPB 200 mls/hr Q8H ANA Administration Losartan Potassium 100 mg 07/21/24 09:00 07/21/24 09:47 Losartan Potassium 100 Mg Tablet PO 100 mg DAILY ANA Administration Metoprolol Succinate 12.5 mg 07/21/24 09:00 07/21/24 09:46 Metoprolol Succinate Ext Rel 12.5 Mg Tabcr PO 12.5 mg DAILY ANA Administration Olanzapine 5 mg 07/21/24 09:00 07/21/24 09:47 Olanzapine 5 Mg Tablet PO 5 mg DAILY ANA Administration Ondansetron HCl 4 mg 07/20/24 14:12 07/21/24 04:15 Ondansetron Inj 4 Mg/2 Ml Vial IV PUSH 4 mg Q4H PRN Administration Nausea Ondansetron HCl 4 mg 07/20/24 21:44 Ondansetron Hcl Odt 4 Mg Tablet PO Q8H PRN nausea and vomiting Polyethylene Glycol 17 gm 07/20/24 21:44 Polyethylene Glycol 3350 17 Gm Powd.Pack PO DAILY PRN constipation Ropinirole HCl 0.5 mg 07/20/24 21:50 07/21/24 09:46 Ropinirole Hcl 0.5 Mg Tablet PO 0.5 mg Q12HR ANA Administration Senna/Docusate Sodium 1 tab 07/20/24 21:44 Senna/Docusate Sodium Tablet PO Q12H PRN constipation Zolpidem Tartrate 5 mg 07/20/24 21:50 07/20/24 21:52 Zolpidem Tartrate (*Crx) 5 Mg Tablet PO 5 mg QHS ANA Administration Radiology Results: ITS Impressions Abdomen/Pelvis CT 07/20/24 13:16 IMPRESSION: 1. Left-sided ileal conduit with fat stranding and trace fluid in the stoma, consistent with inflammation versus scarring. 2. Cystic lesions of the pancreas measuring up to 12 mm, stable from 03/20/2023. The differential diagnosis includes pseudocyst, intraductal papillary mucinous neoplasm (IPMN), mucinous cystic neoplasm (MCN), serous cystadenoma, and neuroendocrine tumor. Consider abdomen MRI without and with contrast in one year. Labs Labs: Laboratory Results - last 24 hr 07/20/24 07/21/24 07/21/24 12:08 04:31 05:45 WBC 5.9 6.2 RBC 5.06 4.24 Hgb 14.1 12.0 Hct 43.1 36.7 L MCV 85.2 86.6 MCH 27.9 28.3 MCHC 32.7 32.7 RDW 13.6 13.9 Plt Count 201 187 MPV 9.6 10.1 Immature Gran % (Auto) 0.3 0.3 Neut % (Auto) 64.4 59.5 Lymph % (Auto) 25.2 29.6 [place] % (Auto) 6.9 7.9 Eos % (Auto) 2.4 2.1 Baso % (Auto) 0.8 0.6 Lymph # (Auto) 1.49 1.85 [place] # (Auto) 0.4 0.5 Eos # (Auto) 0.1 0.1 Baso # (Auto) 0.1 0.0 Abs Immat Gran (auto) 0.02 0.02 Absolute Neuts (auto) 3.8 3.7 Absolute Nucleated RBC 0.000 0.000 Nucleated RBC % 0.0 0.0 PT 14.0 INR 1.1 APTT 26.7 Sodium 141 135 L Potassium 3.9 3.8 Chloride 102 99 Carbon Dioxide 30 27 Anion Gap 9 9 BUN 17 17 Creatinine 0.56 L 0.63 L Estim Creat Clear Calc 113 106 Estimated GFR > 60 > 60 Glucose 108 112 H Calcium 8.7 8.4 Total Bilirubin 1.0 AST 27 ALT 21 Alkaline Phosphatase 80 Total Protein 7.0 Albumin 4.1 Urine Color Yellow Urine Appearance Cloudy H Urine pH 5.5 Ur Specific [place] 1.016 Urine Protein Negative Urine Glucose (UA) Negative Urine Ketones Negative Ur Blood (Man) 1+ H Urine Nitrate Positive H Urine Bilirubin Negative Urine Urobilinogen 1.0 Add Ur Microanalysis Reviewed Leukocyte Esterase Rfl 2+ H Urine RBC 3-5 H Urine WBC 51-100 H Ur Squamous Epith Cells Few Urine Bacteria 4+ H Urine Casts 3-5 Nasal MRSA (PCR) Not detected Quality VTE Prophylaxis VTE prophylaxis: mechanical ordered -Patient's previous records reviewed on admission -ER notes reviewed in detail on admission -discussed all findings and current treatment plan with patient/Family/POA -Consultations reviewed for recommendations -Patient's disposition for safe discharge discussed with child welfare caseworker Dictation performed by [employer] direct speech recognition software, therefore information and referral director variants and typographical errors may occur. Hospitalist MIPS Advance Care Plan I have confirmed that the patient's Advanced Care Plan is present, code status is documented, or surrogate decision maker is listed in patient medical record.: Yes Medication Reconciliation I have utilized all available resources to obtain, update and review the patients current medications (includes all prescriptions, OTC, herbals, canna bis, and nutritional supplements).: Yes The patient is not eligible for med reconciliation; the patient is in a emergent medical situation where delaying treatment would jeopardize the patients health.: No
[2024-07-21 14:00] VITALS: BP 137/69; PULSE 78; RESP 18; TEMP 36.6; O2SAT 100
[2024-07-21 19:59] VITALS: BP 119/42; PULSE 69; RESP 16; TEMP 37.1; O2SAT 94
[2024-07-21] MEDS: SENNA/DOCUSATE SODIUM TABLET 1 TAB PO (20:21)
[2024-07-21] MEDS: BACLOFEN 10 MG TABLET 20 MG PO (20:21)
[2024-07-21] MEDS: ZOLPIDEM TARTRATE (*CRX) 5 MG TABLET PO (20:21)
[2024-07-22] MEDS: HYDROmorphone HCL INJ (*CRX) 1 MG/ML SYR 0.5 MG IV PUSH ×3 (04:59→20:56)
[2024-07-22 05:00] VITALS: BP 116/62; PULSE 70; RESP 22; TEMP 36.2; O2SAT 94
[2024-07-22] MEDS: MEROPENEM 1 GM/NS 100 ML 1 GM/100 ML BAG IVPB ×3 (05:02→20:56)
[2024-07-22] MEDS: HYDROcodone/acetaminophen (*CRX) 5-325 MG TABLET 1 TAB PO (05:58)
--- NOTE | 2024-07-22 08:16 | P.PNIM_ITS ---
Progress Note: A&P Assessment and Plan (1) Urinary tract infection: Qualifiers: Hematuria presence: without hematuria Urinary tract infection type: acute cystitis Qualified Code(s): N30.00 - Acute cystitis without hematuria Code(s): N39.0 - Urinary tract infection, site not specified Status: Acute Assessment and Plan: Patient presented with mild Ltey's urostomy and inflamed urostomy stoma. Patient reported symptoms started about 3 weeks ago but significantly worsened over the past 4 days prior to admission urine output has become cloudy and had increase in segment when she cleaned her bag. Patient with HX of urostomy * CT abdomen/pelvis: 1. Left-sided ileal conduit with fat stranding and trace fluid in the stoma, consistent with inflammation versus scarring. 2. Cystic lesions of the pancreas measuring up to 12 mm, stable from 03/20/2023. The differential diagnosis includes pseudocyst, intraductal papillary mucinous neoplasm (IPMN), mucinous cystic neoplasm (MCN), serous cystadenoma, and neuroendocrine tumor. Consider abdomen MRI without and with contrast in one year. * Wound culture of stoma * UA: cloudy, 1+ blood, positive nitrates, 2+ leuks, 3-5 RBC, 51-100 WBC, 4+ bacteria, and few epithelial cells * UC with Gram-negative bacilli yet to be identified * previous micro reviewed, Enterobacter with multiple resistances on 03/20/2023. Was susceptible to meropenem. * started on meropenem on 07/20 pending cultures * IV fluids: 100 mL/hour x1 L. * analgesics and antipyretics p.r.n. * Blood Cultures NGTD (2) Hypertension: Qualifiers: Hypertension type: primary hypertension Qualified Code(s): I10 - Essential (primary) hypertension Code(s): I10 - Essential (primary) hypertension Status: Chronic Assessment and Plan: * chronic, currently 123/60 * continue home medications: Losartan, metoprolol * BP monitoring per unit protocol (3) Sleep apnea: Qualifiers: Sleep apnea type: unspecified type Qualified Code(s): G47.30 - Sleep apnea, unspecified Code(s): G47.30 - Sleep apnea, unspecified Status: Acute Assessment and Plan: * continue home CPAP (4) Diarrhea: Code(s): R19.7 - Diarrhea, unspecified Status: Acute Assessment and Plan: * C-diff and stool cultures * No BM since admission * Monitor electrolytes replenish as need Plan Pancreatic cyst Chronic back pain with implanted spine stimulator in place Splenomegaly with splenic lesions likely granulomatous disease Code status: Full code per patient DVT prophylaxis: SCD's PT/OT notes: PT/OT pending Disposition: Continues to have pain vitals stable. Subjective Date/time seen: 07/22/24 08:16 Interval history: Complains of pain in the back. Also in her left side of the abdomen. Dysuria has improved. Nausea present. No vomiting. Remains afebrile. Review of Systems Review of Systems: All systems reviewed & are unremarkable except as noted in HPI and below Exam Narrative: APPEARANCE: Well appearing, no distress, well-nourished. HEAD: normocephalic, atraumatic. EYES: PERRLA/EOMI, conjunctivae clear. NOSE: Normal no drainage NECK: Supple. No adenopathy, no masses. RESPIRATORY: Airway patent, respirations nonlabored. Clear to auscultation bilaterally, no rales, rhonchi, wheezing. CARDIOVASCULAR: Regular rate and rhythm without murmurs rubs or gallops. ABDOMINAL: Left lateral quadrant abdominal tenderness, ileostomy bag in situ MUSCULOSKELETAL: Moves all extremities. Strength/ROM intact, No edema, No calf tenderness. NEURO: Alert. Cranial nerves II through XII intact. Grossly intact SKIN: Well-appearing external appearance of the ostomy Objective Data Vital Signs Vital Signs: Vital Signs - 24 hr 07/21/24 09:46 07/21/24 14:00 07/21/24 19:59 Temperature 97.8 F 98.7 F Pulse Rate 86 78 69 Respiratory Rate 18 16 Blood Pressure 137/69 119/42 L Pulse Oximetry 100 94 Oxygen Delivery 07/21/24 20:00 07/22/24 05:00 Temperature 97.1 F L Pulse Rate 70 Respiratory Rate 22 H Blood Pressure 116/62 Pulse Oximetry 94 Oxygen Delivery Room Air Intake/Output Intake/Output: Intake & Output 07/19/24 07/20/24 07/21/24 07/22/24 23:59 23:59 23:59 23:59 Intake Total 1180 2440 258 Output Total 4800 800 Balance 5650 -0117 -379 Meds/Results Medications: Active Medications Generic Name Dose Route Start Last Admin Trade Name Freq PRN Reason Stop Dose Admin Acetaminophen 650 mg 07/20/24 16:11 Acetaminophen 325 Mg Tablet PO Q6H PRN Mild Pain (1-3) or Fever Hydrocodone Bitart/Acetaminophen 1 tab 07/20/24 16:11 07/22/24 05:58 Hydrocodone/Acetaminophen (*Crx) 5-325 Mg Tablet PO 1 tab Q6H PRN Administration Pain Rated 4-6 Alprazolam 0.25 mg 07/20/24 21:44 Alprazolam (*Crx) 0.25 Mg Tablet PO TID PRN anxiety Aspirin 81 mg 07/21/24 09:00 07/21/24 09:46 Aspirin 81 Mg Enteric Tablet PO 81 mg DAILY ANA Administration Atorvastatin Calcium 10 mg 07/21/24 09:00 07/21/24 09:46 Atorvastatin 10 Mg Tablet PO 10 mg DAILY ANA Administration Baclofen 20 mg 07/20/24 21:44 07/21/24 20:21 Baclofen 10 Mg Tablet PO 20 mg TID PRN Administration muscle spasm Diclofenac Sodium 1 applic 07/21/24 09:00 07/21/24 20:17 Diclofenac Sodium 1% 100 Gm Gel (*Bkc) TOPICAL Not Given QID [facility] Escitalopram Oxalate 20 mg 07/21/24 09:00 07/21/24 09:47 Escitalopram Oxalate 10 Mg Tablet PO 20 mg DAILY ANA Administration Furosemide 20 mg 07/21/24 09:00 07/21/24 09:47 Furosemide 20 Mg Tablet PO 20 mg QAM [facility] Administration Gabapentin 900 mg 07/21/24 09:00 07/21/24 20:16 Gabapentin 300 Mg Capsule PO 900 mg TID [facility] Administration Hydromorphone HCl 0.5 mg 07/20/24 14:12 07/22/24 04:59 Hydromorphone Hcl Inj (*Crx) 1 Mg/Ml Syr IV PUSH 0.5 mg Q4H PRN Administration Pain Rated 7-10 Meropenem 1 gm in 100 mls @ 200 mls/hr 07/20/24 22:00 07/22/24 05:02 IVPB 200 mls/hr Q8H ANA Administration Losartan Potassium 100 mg 07/21/24 09:00 07/21/24 09:47 Losartan Potassium 100 Mg Tablet PO 100 mg DAILY [facility] Administration Metoprolol Succinate 12.5 mg 07/21/24 09:00 07/21/24 09:46 Metoprolol Succinate Ext Rel 12.5 Mg Tabcr PO 12.5 mg DAILY ANA Administration Olanzapine 5 mg 07/21/24 09:00 07/21/24 09:47 Olanzapine 5 Mg Tablet PO 5 mg DAILY [facility] Administration Ondansetron HCl 4 mg 07/20/24 14:12 07/21/24 04:15 Ondansetron Inj 4 Mg/2 Ml Vial IV PUSH 4 mg Q4H PRN Administration Nausea Ondansetron HCl 4 mg 07/20/24 21:44 Ondansetron Hcl Odt 4 Mg Tablet PO Q8H PRN nausea and vomiting Polyethylene Glycol 17 gm 07/20/24 21:44 Polyethylene Glycol 3350 17 Gm Powd.Pack PO DAILY PRN constipation Ropinirole HCl 0.5 mg 07/20/24 21:50 07/21/24 20:21 Ropinirole Hcl 0.5 Mg Tablet PO 0.5 mg Q12HR ANA Administration Senna/Docusate Sodium 1 tab 07/20/24 21:44 07/21/24 20:21 Senna/Docusate Sodium Tablet PO 1 tab Q12H PRN Administration constipation Zolpidem Tartrate 5 mg 07/20/24 21:50 07/21/24 20:21 Zolpidem Tartrate (*Crx) 5 Mg Tablet PO 5 mg QHS ANA Administration Radiology Results: ITS Impressions Abdomen/Pelvis CT 07/20/24 13:16 IMPRESSION: 1. Left-sided ileal conduit with fat stranding and trace fluid in the stoma, consistent with inflammation versus scarring. 2. Cystic lesions of the pancreas measuring up to 12 mm, stable from 03/20/2023. The differential diagnosis includes pseudocyst, intraductal papillary mucinous neoplasm (IPMN), mucinous cystic neoplasm (MCN), serous cystadenoma, and neuroendocrine tumor. Consider abdomen MRI without and with contrast in one year.
[2024-07-22] MEDS: ATORVASTATIN 10 MG TABLET PO (08:29)
[2024-07-22] MEDS: rOPINIRole HCL 0.5 MG TABLET PO ×2 (08:29→20:55)
[2024-07-22] MEDS: GABAPENTIN 300 MG CAPSULE 900 MG PO ×3 (08:29→20:55)
[2024-07-22] MEDS: METOPROLOL SUCCINATE EXT REL 12.5 MG TABCR PO (08:29)
[2024-07-22] MEDS: ESCITALOPRAM OXALATE 10 MG TABLET 20 MG PO (08:29)
[2024-07-22] MEDS: ASPIRIN 81 MG ENTERIC TABLET PO (08:29)
[2024-07-22] MEDS: FUROSEMIDE 20 MG TABLET PO (08:30)
[2024-07-22] MEDS: DICLOFENAC SODIUM 1% 100 GM GEL (*BKC) 1 APPLIC TOPICAL ×3 (08:30→20:55)
[2024-07-22] MEDS: LOSARTAN POTASSIUM 100 MG TABLET PO (08:30)
[2024-07-22] MEDS: OLANZapine 5 MG TABLET PO (08:30)
[2024-07-22 10:22] VITALS: O2SAT 97
[2024-07-22] MEDS: BACLOFEN 10 MG TABLET 20 MG PO ×3 (13:07→21:04)
[2024-07-22] MEDS: ALPRAZolam (*CRX) 0.25 MG TABLET PO ×2 (13:08→20:55)
[2024-07-22 14:00] VITALS: BP 114/69; PULSE 69; RESP 16; TEMP 36; O2SAT 99
--- OUTSIDE RECORDS SUMMARY | 2024-07-22 18:05 | XMS_ITS | Clinical Summary ---
Author Organization [facility] Address [address] [facility] [place] [address] Care Team Providers Care Executive Assistant Name Role Phone Lidia Barajas MD Unavailable Shilpa Gandhi MD Unavailable Iron Galindo PA-C Primary Care Provide r Cresencio Ghosh MD Unavailable [phone] Source Comments [facility],non-owned Affiliates and Associated Physician Practices is amultiple site organization consisting of ambulatory clinics and hospital sitesin [place], [place], [place] and [place]. This disclosure is being madepursuant to the Care Everywhere program and may not contain all information available regarding this patient. Last updated 18.[facility] Allergies Active Allergy Reactions Criticality Noted Date Comments Adhesive Sensitivity Skin Reactions Medium No sensitivity with SPT [place] Latex Itching,Rash Medium 05/09/2020 Patient has reaction to SPT containing Latex Penicillins Urticaria Medium 01/14/2009 To the old penicillin . Has received amoxicillin since then without any issue. Sulfa Drugs Urticaria Medium 05/16/2016 Vancomycin Urticaria,Itching Medium 07/02/2020 Itching Medications * Be aware that medications may not be up to date on this document. Alwaysverify current medications with the patient. Medication Sig Dispensed Refills Start Date End Date Status ALPRAZolam (XANAX) 0.25 MG tabletIndicatio ns:Anxiety Take 1 tablet by mouth 3 times daily as needed for Anxiety 90 tablet 1 08/19/2019 Active losartan (COZAAR) 50 MG tabletIndicatio ns:Hypertension Take 1 tablet by mouth 2 times daily Reasons: High Blood Pressure Disorder 01/30/2020 Active atorvastatin (LIPITOR) 10 MG tablet Take 1 tablet by mouth at bedtime 90 tablet 3 03/31/2020 Active diclofenac sodium (VOLTAREN) 1 % gelIndications: Back Pain Apply 2 g to affected area 4 times daily as needed Reasons: Backache 150 g 1 05/22/2020 Active escitalopram (LEXAPRO) 20 MG tablet Take 1 (one) tablet by mouth once daily 90 tablet 3 07/17/2020 Active metoprolol succinate XL 24hr (TOPROL XL) 25 MG tablet Take 1 (one) tablet by mouth at bedtime 08/29/2020 Active Lidocaine-Colla gen-Aloe Vera (REGENECARE) 2 % 05/29/2020 Active ondansetron, disintegrating, (ZOFRAN ODT) 4 MG tablet Take 1 (one) tablet by mouth every 8 hours as needed for Nausea/Vomiting Allow tablet to dissolve on the tongue 12 tablet 12/20/2020 Active gabapentin (Neurontin) 300 MG capsule Take 3 (three) capsules by mouth 4 times daily Active Acetaminophen Extra Strength 500 MG tablet Take 2 (two) tablets by mouth every 6 hours as needed For pain. 02/21/2022 Active Multiple Vitamins-Minera ls (Thera-M) TABS Take 1 (one) tablet by mouth once daily Active cyclobenzaprine (Flexeril) 5 MG tablet Take 1 (one) tablet by mouth 3 times daily as needed (spasms) 90 tablet 2 09/18/2022 Active Nystop 467857 UNIT/GM powder Apply to affected area 2 times daily as needed 12/10/2022 Active furosemide (Lasix) 20 MG tablet Take 1 (one) tablet by mouth once daily Active ascorbic acid (Vitamin C) 500 MG tablet Take 1 (one) tablet by mouth once daily 100 tablet 03/25/2023 Active melatonin 5 MG tablet Take one tab approximately 2 hours prior to intended bedtime. 03/25/2023 Active sulfamethoxazol e-trimethoprim (Bactrim DS; Septra DS) 800-160 MG tabletIndicatio ns:Urinary Tract Infection Take 1 (one) tablet by mouth every 12 hours Reasons: Urinary Tract Infection 7 tablet 05/07/2023 Active oxyCODONE, immediate release, (Roxicodone) 5 MG tabletIndicatio ns:Chronic Pain Take 1 (one) tablet by mouth every 6 hours as needed for Pain Reasons: Chronic Pain 30 tablet 06/03/2023 Active zolpidem (Ambien) 5 MG tablet Take 1 (one) tablet by mouth nightly as needed FOR INSOMNIA 30 tablet 5 03/17/2024 Active rOPINIRole (Requip) 1 MG tabletIndicatio ns:Restless legs syndrome (RLS) TAKE 1 (ONE) TABLET BY MOUTH 2 TIMES DAILY TAKE ONE TAB AT SUPPER AND ONE TABLETS AT BEDTIME FOR RESTLESS LEG SYNDROME 180 tablet 07/07/2024 Active rOPINIRole (Requip) 1 MG tabletIndicatio ns:Restless legs syndrome (RLS) Take 1 (one) tablet by mouth 2 times daily TAKE ONE TAB AT SUPPER AND ONE TABLETS AT BEDTIME FOR RESTLESS LEG SYNDROME 180 tablet 1 03/16/2024 07/07/19 25 Discontinued Active Problems Problem Noted Date Diagnosed Date Abdominal pain, left lower quadrant 03/30/2023 PLMD (periodic limb movement disorder) Insomnia due to medical condition 03/25/2023 Circadian rhythm sleep disorder, irregular sleep wake type 03/25/2023 Ileal conduit stomal stenosis 02/18/2023 History of ileal conduit 02/11/2023 Pancreatic duct dilated 02/11/2023 Renal cyst 02/09/2023 Gross hematuria 02/08/2023 Acute pyelonephritis 02/08/2023 Hypertension, unspecified type 02/08/2023 Chronic insomnia 10/24/2021 Anxiety 10/24/2021 YAJAIRA on CPAP 07/25/2021 Other constipation 05/09/2020 Hypersomnia due to medical condition 02/16/2020 Malaise and fatigue 02/16/2020 Restless legs syndrome (RLS) 02/16/2020 Aspiration pneumonia of both lower lobes 020 Major depressive disorder, recurrent episode, mo derate 08/19/2019 Generalized anxiety disorder 08/19/2019 Disorientation 08/17/2019 Neurogenic bladder 08/17/2019 Hypertensive emergency without congestive heart failure 08/17/2019 Other hydronephrosis 08/17/2019 Abdominal pain, generalized 08/09/2019 Tachycardia 08/09/2019 Acute cystitis without hematuria 08/09/2019 Hematuria 08/09/2019 Nausea and vomiting 08/09/2019 Acute pancreatitis 07/29/2019 Hypokalemia 07/29/2019 Lactic acid acidosis 07/29/2019 Subarachnoid bleed 04/13/2019 Abdominal pain, epigastric 03/31/2019 Pulmonary embolism 03/31/2019 Chest pain 03/31/2019 Pancreatitis, unspecified pancreatitis type 07/2018 Severe low back pain 03/20/2019 Intractable low back pain 03/20/2019 History of lumbar spinal fusion 03/20/2019 Backache 10/13/2011 Overview (03/30/2015): spinal fusions x 2 Asthma with acute exacerbation 03/04/2009 Hypoxia 03/04/2009 Hypertension 03/04/2009 SOB (shortness of breath) 03/03/2009 Cough 03/02/2009 Resolved Problems Problem Noted Date Diagnosed Date Resolved Date Suspected sleep apnea 02/16/20202023 Snoring 02/16/2020 03/16/2024 Fall 01/14/2009 03/04/2009 Encounters Date Type Department Care Team Description 07/03/2024 Refill [facility] - Pulmonology [address] [place] [address], [place] [id number] Cresencio Ghosh MD Refill Request from Last 3 Months Immunizations Name Administration Dates Next Due INFLUENZA VACCINE 05/15/2022,05/06/2018,04/30/20 17 INFLUENZA VACCINE, QUADR. (F LUZONE; FLULAVAL; FLUARIX; AFLURIA QUADRIVALENT; 6MO+), 0.5 ML (IIV4) 03/22/2020,03/26/2019,05/06/2018 Family History Medical History Relation Name Comments Hypertension Brother 1 Hypertension Brother 2 Cancer - Other Father Cancer - Pancreatic Father age 57 Anxiety Disorder Mother CAD (Coronary Artery Disease) Mother Cancer - Lung Mother small cell, sm oker Relation Name Status Comments Brother 1 Alive x2 Brother 2 Alive Father Mother Alive Social History Tobacco Use Types Packs/Day Years Used Date Smoking Tobacco: Never Smokeless Tobacco: Never Tobacco Cessation:Counseling Given: Not Answered Alcohol Use Standard Drinks/Week Comments Not Currently 0 (1 standard drink = 0.6 oz pur e alcohol) rare AUDIT-C Answer Date Recorded Q1: How often do you have a drink containing alcohol? Never 03/30/2023 Q2: How many drinks containi ng alcohol do you have on a typical day when you are drinking? Patient does not drink Q3: How often do you have si x or more drinks on one occasion? Never 03/30/2023 Overall Financial Resource Strain (CARDIA) Answe r Date Recorded How hard is it for you to pa y for the very basics like food, housing, medical care, and heating? Not very hard 04/02/2023 [facility] [place] [facility] Occupat ional Health - Occupational Stress Questionnaire Answer Date Recorded Do you feel stress - tense, restless, nervous, or anxious, or unable to sleep at night because your mind is troubled all the time - these days? To some extent 04/02/2023 Hunger Vital Sign Answer Date Recorded Within the past 12 months, y ou worried that your food would run out before you got the money to buy more. Never true 04/02/20 23 Within the past 12 months, t he food you bought just didn't last and you didn't have money to get more. Never true 04/02/2023 PRAPARE - Transportation Answer Date Re corded In the past 12 months, has l ack of transportation kept you from medical appointments or from getting medications? No 09/2022 In the past 12 months, has l ack of transportation kept you from meetings, work, or from getting things needed for daily living? No 04/02/2023 Housing Stability Vital Sign Answer Rohan e Recorded In the last 12 months, was t here a time when you were not able to pay the mortgage or rent on time? No 04/02/2023 In the last 12 months, how many places have you lived? 1 04/02/2023 In the last 12 months, was t here a time when you did not have a steady place to sleep or slept in a nursing home (including now)? No 04/02/2023 Sex and Gender Information Value Date Recorded Sex Assigned at Not on file Gender Identity Not on file Sexual Orientation Not on file Last Filed Vital Signs Vital Sign Reading Time Taken Comments Blood Pressure 157/91 05/07/2023 9:23 AM MLT Pulse 86 05/07/2023 9:23 AM MLT Temperature 36.3 ??C (97.3 ??F) 05/07/2023 9:23 AM CS T Respiratory Rate 18 04/02/2023 3:00 PM CDT Oxygen Saturation 95% 05/07/2023 9:23 AM MLT Inhaled Oxygen Concentration 97% 02/21/2021 1 0:15 AM CDT Weight 95.3 kg (210 lb) 03/16/2024 10:50 AM CDT Height 172.7 cm (5' 8 ) 03/16/2024 10:50 AM CDT Body Mass Index 31.93 03/16/2024 10:50 AM CDT Plan of Treatment Upcoming Encounters Date Type Department Care Team (Late st Contact Info) Description 08/23/2024 2:30 PM MLT Appointment [facility] [address] [place] [address] Panchito Walters, DO [address] [place] [address] 09/14/2024 10:00 AM CDT Video Visit [facility] - Pulmonology [address] [place] [address] Cresencio Ghosh MD [address] [facility] [address] [place] [address] Health Maintenance Due Date Last Done Comments COLOGUARD (AGES 45-75) - COLON CA SCREENING 1966 CT COLONOGRAPHY - COLON CA SCREENING 1966 FIT - COLON CA SCREENING 1966 FLEX SIG - COLON CA SCREENING 1966 HIV SCREENING 1981 HEPATITIS C SCREENING 09/21/1984 DTAP/TDAP/TD VACCINES (1 - Tdap) 1985 HEPATITIS B VACCINE (1 of 3 - 19+ 3-dose series) 1985 PNEUMOCOCCAL VACCINE 50+ (1 of 2 - PCV) 1985 PNEUMOCOCCAL VACCINE (1 of 2 - PCV) 1985 ZOSTER VACCINE (1 of 2) 2016 MAMMOGRAM 09/19/2019 09/18/2017 COVID-19 VACCINE ( season) 2024 07/01/2021, 12/13/2020, 11/20/2020 INFLUENZA VACCINE (#1) 2024 2, 07/01/2021, 03/22/2020, Additional history exists DEPRESSION SCREENING 06/30/2024 MEDICARE AWV ? CALENDAR YEAR 2024 02/25/2020, 09/10/2017 COLON MONITORING 11/28/2024 11/29/2019, 09/2019, 08/03/2019 Colorectal Cancer Screening 11/28/2024 SCREENING FOR DIABETES 04/02/2026 3, 04/01/2023, 03/31/2023, Additional history exists COLONOSCOPY - COLON CA SCREENING 11/28/2029 11/29/2019, 11/29/2019, 08/03/2019, Additional history exists HIB VACCINE Aged Out No longer eligi ble based on patient's age to complete this topic HPV VACCINE Aged Out No longer eligi ble based on patient's age to complete this topic MENINGOCOCCAL (Group B) VACCINE Aged Out No longer eligible based on patient's age to complete this topic MENINGOCOCCAL VACCINE Aged Out No fouzia sailaja eligible based on patient's age to complete this topic Goals Goal Patient Goal Type Associated Problems Recent Progress Patient-Stated? Author Blood Pressure < 140/90 Blood Pressure 157/91(2022 9:23 AM MLT) No Sierra Steiner Yearly PCP visit Lifestyle No White, Ava A Have labs drawn Lifestyle No White, Ava A Take recommended medication(s) Lifestyle No White, Ava A Use safety retraint in car Lifestyle No White, Ava A Complete Health Maintenance Screenings Lifestyle No White, Ava A Medical Devices Implanted Type Area B2B Sales Executive Device Identifier Shelf Expiration Date Model / Serial / Lot Floseal Hemostatic Matrix Implanted:Qty: 1 on 04/02/2019 by Maicol Mcneil DO at [facility] N/A: Spine [employer] 08/10/2020 [id number] / / [id number] Graft Tissue Drgn + Bvn Clgn Mtrx 1x1in Implanted:Qty: 1 on 04/02/2019 by Maicol Mcneil DO at [facility] N/A: Spine [employer] 04/29/2021 [id number] / / [id number] Seal Tisseel Prima 1 Prefil Frz 4ml - [id number] Implanted:Qty: 1 on 04/02/2019 by Maicol Mcneil DO at [facility] N/A: Spine [employer] 08/27/2020 [id number] / [id number] / [id number] Impl Inj 1ml Coaptite Syr Bulk Agnt Implanted:Qty: 2 on 04/11/2020 by Dave Aparicio MD at [facility] N/A: Bladder [employer] 10/25/2022 [id number] / / [id number] Impl Inj 1ml Coaptite Syr Bulk Agnt Implanted:Qty: 2 on 02/05/2022 by Dave Aparicio MD at [facility] Bladder [employer] 10/16/2024 [id number] / / [id number] Stent Uret 7fr 80cm Str Cls Tip Llok Implanted:Qty: 1 on 09/03/2022 by Nel Cerna DO at [facility] Ureter [employer] 12/23/2025 [id number] / / [id number] Description:bilateral ureter s Procedures Procedure Name Priority Date/Time Associated Diagnosis Comments BASIC METABOLIC PANEL (CALCIUM TOTAL) Routine 04/02/2023 2:31 AM CDT ENDOSCOPY, COLON, SCREENING Routine 11/29/2019 MAMMO BILAT SCREENING Routine 09/18/2017 9:53 AM CDT Encounter for screening for malignant neoplasm of breast from Last 3 Months or Most Recently Relevant to Health Maintenance Results * (ABNORMAL) BASIC METABOLIC PANEL (CALCIUM TOTAL) (04/02/2023 2:31 AM CDT) BUN 16 7 - 26 mg/dL 04/02/2023 3:07 AM [facility] Creatinine 0.69 0.56 - 0.96 mg/dL 04/02/2023 3:07 AM [facility] Sodium 133(L) 136 - 145 mmol/L 04/02/2023 3:07 AM [facility] Potassium 3.9 3.5 - 4.5 mmol/L 04/02/2023 3:07 AM [facility] Chloride 102 98 - 107 mmol/L 04/02/2023 3:07 AM [facility] CO2 26 22 - 29 mmol/L 04/02/2023 3:07 AM [facility] Glucose 122(H) 70 - 115 mg/dL 04/02/2023 3:07 AM [facility] Calcium 8.3(L) 8.4 - 10.2 mg/dL 04/02/2023 3:07 AM [facility] Anion Gap 5(L) 6 - 16 04/02/2023 3:07 AM [facility] BUN/Creatinine Ratio 23 7 - 23 04/02/2023 3:07 AM [facility] Osmolality Calculated 278 275 - 295 mOsm/kg 04/02/2023 3:07 AM [facility] eGFR by CKD-EPI >90 >=90 mL/min/1.7 3 m2 04/02/2023 3:07 AM [facility] Blood BLOOD SPECIMEN / Unknown Lab Venipuncture / Unknown 04/02/2023 2:31 AM CDT 04/02/2023 2:39 AM CDT Missy Sutherland MD LAB - CHEMISTRY [facility] Address City/State/ZIP Co de Phone Number [facility] [address] [place] [address], [facility] [phone] * ENDOSCOPY, COLON, SCREENING (11/29/2019) Provider Unknown GI PROCEDURE ORDERAB LES * MAMMO BILAT SCREENING (09/18/2017 9:53 AM CDT) Anatomical Region Laterality Modality Breast Bilateral Mammography 09/23/2017 9:20 AM CDT Impressions 09/23/2017 9:22 AM CDT No mammographic evidence of malignancy in either breast. ASSESSMENT: BIRADS Category 2: Benign finding(s). RECOMMENDATION: Bilateral screening mammogram in one year. Thank you for allowing us to participate in the care of your patient. [facility] Breast [facility] utilizes [facility] as a reminder system to notify patients of their next recommended mammogram. Narrative 09/23/2017 9:22 AM CDT EXAMINATION: Digital screening mammogram on 09/18/2017. Low-dose full-field digital breast tomosynthesis examination was performed with synthetic 2D images and 3D acquisitions. Computer assisted detection was utilized. PRIOR: Mammogram from [facility] on 11/13/2004. BREAST PARENCHYMAL DENSITY: The breasts are almost entirely fatty. RISK ASSESSMENT CALCULATION: Based on the information provided by your patient, her lifetime risk of breast cancer is average (<15%). Additional quantitative risk model data and patient history details have been scanned as a document/letter in [facility] electronic medical record (media tab). Please note this information is only as accurate as the data entered by the patient. FINDINGS: No suspicious masses, areas of architectural distortion or microcalcifications are evident on synthetic 2D mammogram or tomosynthesis images. ??Postsurgical changes are seen in both breasts. 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/Living Will/POA 09/16/2022 3:23 PM * Full Code (Latest Code Status on File) Date Activated Date Inactivated Comments 03/30/2023 8:11 PM 04/02/2023 8:03 PM * Full Code Date Activated Date Inactivated Comments 02/18/2023 5:43 PM 02/26/2023 1:58 PM * Full Code Date Activated Date Inactivated Comments 02/08/2023 6:31 AM 02/11/2023 4:54 PM * Full Code Date Activated Date Inactivated Comments 09/03/2022 9:44 PM 09/12/2022 5:14 PM * Full Code Date Activated Date Inactivated Comments 05/10/2020 4:01 AM 05/11/2020 8:00 PM Care Teams Executive Assistant Relationship Specialty Start Date End Date Iron Galindo PA-C [address] [place] [address] PCP - General Physician Senior Controls Analyst 02/12/23 Cresencio Ghosh MD [address] [facility] [address] [place] [id number] PCP - Attributed-[facility] P4P 12/29/23 Lidia Barajas MD [address] [facility], [phone] Anesthesiology-Pain Management 06/03/19 Shilpa Gandhi MD [address] [facility] [address] [place] [address] Oncology 06/03/19
--- OUTSIDE RECORDS SUMMARY | 2024-07-22 18:05 | XMS_ITS | Referral Summary ---
Author Organization [facility] Address [address] [place] [address] Care Team Providers Care Chief Wharfinger Name Role Phone Lidia Barajas MD Unavailable Shilpa Gandhi MD Unavailable Iron Galindo PA-C Primary Care Provide r Cresencio Ghosh MD Unavailable [phone] Source Comments [facility],non-owned Affiliates and Associated Physician Practices is amultiple site organization consisting of ambulatory clinics and hospital sitesin [place], [place], [place] and [place]. This disclosure is being madepursuant to the Care Everywhere program and may not contain all information available regarding this patient. Last updated 18.[facility] Encounters Date Type Department Care Team Description 07/03/2024 Refill [facility] - Pulmonology [address], [address] [place] [address] Cresencio Ghosh MD Refill Request from Last 3 Months Allergies Active Allergy Reactions Criticality Noted Date [...] (spasms) 90 tablet 2 09/18/2022 Active Nystop 624115 UNIT/GM powder Apply to affected area 2 [...] quadrant 03/30/2023 PLMD (periodic limb movement disorder) 3 Insomnia due to medical condition 03/25/2023 Circadian [...] 02/16/20202023 Snoring 02/16/2020 03/16/2024 Fall 01/14/2009 03/04/2009 Immunizations Name Administration Dates Next Due INFLUENZA VACCINE 05/15/2022,05/06/2018,04/30/20 17 INFLUENZA VACCINE, QUADR. (F LUZONE; FLULAVAL; FLUARIX; AFLURIA QUADRIVALENT; 6MO+), 0.5 ML (IIV4) 03/22/2020,03/26/2019,05/06/2018 Social History Tobacco Use Types Packs/Day Years [...] care, and heating? Not very hard 04/02/2023 [facility] [place] [facility] Occupat ional Health - Occupational Stress [...] place to sleep or slept in a penitentiary (including now)? No 04/02/2023 Sex and Gender Information Value Date Recorded Sex Assigned at Not on file Gender Identity Not on file Sexual Orientation Not on file Last Filed Vital Signs Vital Sign Reading Time Taken Comments Blood Pressure 157/91 05/07/2023 9:23 AM CLEAN OUT DRILLER HELPER Pulse 86 05/07/2023 9:23 AM CLEAN OUT DRILLER HELPER Temperature 36.3 ??C (97.3 ??F) 05/07/2023 9:23 AM CS T Respiratory Rate 18 04/02/2023 3:00 PM CDT Oxygen Saturation 95% 05/07/2023 9:23 AM CLEAN OUT DRILLER HELPER Inhaled Oxygen Concentration 97% 02/21/2021 1 0:15 AM CDT Weight 95.3 kg (210 lb) 03/16/2024 10:50 AM CDT Height 172.7 cm (5' 8 ) 03/16/2024 10:50 AM CDT Body Mass Index 31.93 03/16/2024 10:50 AM CDT Functional Status Functional Status Response Date of Assess ment Is person deaf or have serious hearing difficult y? No 04/02/2023 Is person blind or have serious difficulty seein g? No 04/02/2023 Does person have serious dif ficulty walking/climbing stairs? Yes 04/02/2023 Does person have difficulty dressing/bathing? Ye s 04/02/2023 Does person have difficulty doing errands alone? Yes 04/02/2023 Cognitive Status Response Date of Assessm ent Does person have difficulty concentrating/remembering/making decisions? No 04/02/2023 Plan of Treatment Upcoming Encounters Date Type Department Care Team (Late st Contact Info) Description 08/23/2024 2:30 PM CLEAN OUT DRILLER HELPER Appointment [facility] [address] [place] [address] Panchito Walters, [address] [facility] [address] [place] [address] 09/14/2024 10:00 AM CDT Video Visit [facility] - Pulmonology [address], [address] [place] [address] Cresencio Ghosh MD [address] [facility] [address] [place] [address] Goals Goal Patient Goal Type Associated Problems Recent Progress Patient-Stated? Author Blood Pressure < 140/90 Blood Pressure 157/91(2022 9:23 AM CLEAN OUT DRILLER HELPER) No Sierra Steiner Yearly PCP visit Lifestyle No White, Ava A Have labs drawn Lifestyle No White, Ava A Take recommended medication(s) Lifestyle No White, Ava A Use safety retraint in car Lifestyle No White Ava A Complete Health Maintenance Screenings Lifestyle No Ava Castro Medical Devices Implanted Type Area Rn Invasive Device Identifier Shelf Expiration Date Model / Serial / Lot Floseal Hemostatic Matrix Implanted:Qty: 1 on 04/02/2019 by Maicol Mcneil DO at [facility] N/A: Spine [employer] 08/10/2020 [id number] / / [id number] Graft Tissue Drgn + Bvn Clgn Mtrx 1x1in Implanted:Qty: 1 on 04/02/2019 by Maicol Mcneil DO at [facility] N/A: Spine [employer] 04/29/2021 [id number] / / [id number] Seal Tisseel Prima 1 Prefil Frz 4ml - [id number] Implanted:Qty: 1 on 04/02/2019 by Maicol Mcneil DO at [facility] N/A: Spine [employer] 08/27/2020 [id number] / [id number] / [id number] Impl Inj 1ml Coaptite Syr Bulk Agnt Implanted:Qty: 2 on 04/11/2020 by Dave Aparicio MD at [facility] N/A: Bladder [employer] 10/25/2022 [id number] / / [id number] Impl Inj 1ml Coaptite Syr Bulk Agnt Implanted:Qty: 2 on 02/05/2022 by Dave Aparicio MD at [facility] Bladder [employer] 10/16/2024 [id number] / / [id number] Stent Uret 7fr 80cm Str Cls Tip Llok Implanted:Qty: 1 on 09/03/2022 by Nel Cerna DO at [facility] Ureter [employer] 12/23/2025 [id number] / / [id number] Description:bilateral ureter s Procedures Procedure Name Priority [...] 7 - 26 mg/dL 04/02/2023 3:07 AM [facility] Creatinine 0.69 0.56 - 0.96 mg/dL 04/02/2023 3:07 AM [facility] Sodium 133(L) 136 - 145 mmol/L 04/02/2023 3:07 AM [facility] Potassium 3.9 3.5 - 4.5 mmol/L 04/02/2023 3:07 AM [facility] Chloride 102 98 - 107 mmol/L 04/02/2023 3:07 AM [facility] CO2 26 22 - 29 mmol/L 04/02/2023 3:07 AM [facility] Glucose 122(H) 70 - 115 mg/dL 04/02/2023 3:07 AM [facility] Calcium 8.3(L) 8.4 - 10.2 mg/dL 04/02/2023 3:07 AM [facility] Anion Gap 5(L) 6 - 16 04/02/2023 3:07 AM [facility] BUN/Creatinine Ratio 23 7 - 23 04/02/2023 3:07 AM [facility] Osmolality Calculated 278 275 - 295 mOsm/kg 04/02/2023 3:07 AM [facility] eGFR by CKD-EPI >90 >=90 mL/min/1.7 3 m2 04/02/2023 3:07 AM [facility] Blood BLOOD SPECIMEN / Unknown Lab Venipuncture / Unknown 04/02/2023 2:31 AM CDT 04/02/2023 2:39 AM CDT Missy Sutherland MD LAB - CHEMISTRY [facility] [address] [place] [address], [facility] [phone] * ENDOSCOPY, COLON, SCREENING (11/29/2019) Provider Unknown [...] participate in the care of your patient. [facility] Breast Care utilizes Soundtracker as a reminder system to notify patients of their next recommended mammogram. Narrative 09/23/2017 9:22 AM CDT EXAMINATION: Digital screening mammogram on 09/18/2017. Low-dose full-field digital breast tomosynthesis examination was performed with synthetic 2D images and 3D acquisitions. Computer assisted detection was utilized. PRIOR: Mammogram from [facility] on 11/13/2004. BREAST PARENCHYMAL DENSITY: The breasts are almost entirely fatty. RISK ASSESSMENT CALCULATION: Based on the information provided by your patient, her lifetime risk of breast cancer is average (<15%). Additional quantitative risk model data and patient history details have been scanned as a document/letter in [facility] electronic medical record (media tab). 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 Adv Directive/Living Will/POA 09/16/2022 3:23 [...] 4:01 AM 05/11/2020 8:00 PM Care Teams Chief Wharfinger Relationship Specialty Start Date End Date Iron Galindo PA-C [address] [facility] [address] [place] [address] PCP - General Physician Senior C Web Developer 02/12/23 Cresencio Ghosh MD [address] [facility] [place] [address] PCP - Attributed-[facility] [place] [facility] P4P 12/29/23 Lidia Barajas MD [address], [address] Anesthesiology-Pain Management 06/03/19 Shilpa Gandhi MD [facility] [address] Oncology 06/03/19
--- OUTSIDE RECORDS SUMMARY | 2024-07-22 18:05 | XMS_ITS | Clinical Summary ---
Author Organization [facility] Address [address] [place] [address] Care Team Providers Care Cubing Machine Tender Name Role Phone Unavailable Primary Care Provider Unavailabl e Allergies Active Allergy Reactions Criticality Noted Date Comments Other Rash Low 04/12/2019 Adhesive tape, causes a rash with blisters Penicillins Swelling High 04/12/2019 Patient states swelling of airway with last dose taken. Patient tolerated IV cephalosporin in the acute hospital. Note in [facility] says that the patient has tolerated amoxicillin since then with no issue as well. Sulfa Antibiotics GI Intolerance High 04/12/2019 Patient states medication makes her sick, nausea, vomiting, difficulty breathing Medications albuterol (PROVENTIL HFA;VENTOLIN HFA) 108 (90 Base) MCG/ACT inhaler Inhale 2 puffs Every 6 hours as needed. for shortness of breath. 3.7 g 05/20/20 Active Apixaban (Eliquis) 5 MG tablet Take 1 tablet (5 mg total) by mouth 2 (two) times a day. 60 tablet 05/20/20 Active atorvastatin (LIPITOR) 10 MG tablet Take 1 tablet (10 mg total) by mouth nightly. 30 tablet 05/20/20 Active Diclofenac Sodium (VOLTAREN) 1 % gel Apply 2 g topically 4 (four) times a day. 100 g 05/20/20 Active dilTIAZem (CARDIZEM) 30 MG tablet Take 1 tablet (30 mg total) by mouth every 12 (twelve) hours. 60 tablet 05/20/20 Active escitalopram (LEXAPRO) 20 MG tablet Take 1 tablet (20 mg total) by mouth daily. 30 tablet 05/21/20 Active docusate sodium (ENEMEEZ) 283 MG enema Insert 1 enema (283 mg total) into the rectum After dinner. 0 05/20/20 Active fluticasone (FLONASE) 50 MCG/ACT nasal solution Administer 1 spray (50 mcg total) into each nostril 2 (two) times a day. 9.9 mL 05/20/20 Active hydroCHLOROthiazide (HYDRODIURIL) 12.5 MG tablet Take 1 tablet (12.5 mg total) by mouth daily. 30 tablet 05/21/20 Active pregabalin (LYRICA) 200 MG capsule Take 1 capsule (200 mg total) by mouth 3 (three) times a day. 90 capsule 05/20/20 Active senna-docusate (SENOKOT-S) 8.6-50 MG Take 2 tablets by mouth nightly. 0 05/20/20 Active SUMAtriptan (IMITREX) 100 MG tablet Take 1 tablet (100 mg total) by mouth daily as needed for migraine. 7 tablet 05/20/20 Active tiZANidine (ZANAFLEX) 4 MG tablet Take 2 tablets (8 mg total) by mouth 4 (four) times a day. 120 tablet 05/20/20 Active vitamin B-6 (B-6) 100 MG tablet Take 1 tablet (100 mg total) by mouth daily. 0 05/21/20 Active vitamin D cholecalciferol 1000 units tablet Take 3 tablets (3,000 Units total) by mouth daily. 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 Overview (04/18/2019): Thoracic level s/p bleed Hypertension 04/18/2019 Chronic pain 04/18/2019 Overview (04/18/2019): Multiple injuries and spinal surgeries Has stimulator implanted as well Neurogenic bladder dysfunction 04/18/2019 Overview (04/18/2019): Carreon in place for decompression Constipation due to neurogenic bowel 04/18/2019 Overview (04/18/2019): Paraplegia-starting bowel program Pulmonary embolism 04/18/2019 Overview (04/18/2019): On eliquis Subarachnoid hemorrhage following injury with co ncussion 04/17/2019 Spinal epidural hematoma 04/13/2019 Immunizations Name Administration Dates Next Due Influenza, Unspecified 04/12/2019(Deferr ed: Received outside of this facility - given on 03/26/19) Family History Medical History Relation Name Comments Cancer Father Heart disease Father Cancer Mother Depression Mother Heart disease Mother Hypertension Mother Relation Name Status Comments Father Mother Social History Tobacco Use Types Packs/Day Years Used Date Smoking Tobacco: Never Smokeless Tobacco: Never Alcohol Use Standard Drinks/Week Comments Not Currently 0 (1 standard drink = 0.6 oz pur e alcohol) Comments Unknown Sex and Gender Information Value Date Recorded Sex Assigned at Not on file Legal Sex Female 5:57 PM EDT Gender Identity Not on file Sexual Orientation Not on file Last Filed Vital Signs Vital Sign Reading Time Taken Comments Blood Pressure 152/77 05/21/2019 8:00 AM WASHER MEAT Pulse 75 05/21/2019 8:00 AM WASHER MEAT Temperature 36.3 ??C (97.3 ??F) 05/21/2019 8:00 AM CS T Respiratory Rate 18 05/21/2019 8:00 AM WASHER MEAT Oxygen Saturation 98% 05/21/2019 8:00 AM WASHER MEAT Inhaled Oxygen Concentration - - Weight 108.9 kg (240 lb 1.6 oz) 05/09/2019 6:52 AM WASHER MEAT Height 172.7 cm (5' 8 ) 04/18/2019 12:2 3 AM CDT Body Mass Index 36.51 04/18/2019 12:23 AM CDT Plan of Treatment Not on file Advance Directives * Full Resuscitation (Latest Code Status on File) Date Activated Date Inactivated Comments 04/17/2019 6:55 PM 05/21/2019 6:27 PM * Full Resuscitation Date Activated Date Inactivated Comments 04/12/2019 3:46 PM 04/13/2019 7:31 PM
--- OUTSIDE RECORDS SUMMARY | 2024-07-22 18:06 | XMS_ITS | Encounter Summary ---
Author Organization [facility] Address [address] [facility] [place] [address] Care Team Prov[address] Care Place Change Roof Bolter Name Role Phone Shilpa Frazier DO Primary Care Provider [phone] Lidia Barajas MD Unavailable Shilpa Gandhi MD Unavailable Massiel Melara MD Primary Care Provider + [phone] Shilpa Frazier DO Primary Care Provider + [phone] Iron GalindoC Primary Care Provide r Cresencio Ghosh MD Unavailable [phone] Encounter Details Date Type Department Care Team (Late st Contact Info) Description 01/23/2015 Therapy Visit EXTERNAL NON-[facility] Sunny Reynoso MD [address] [address] Social History Tobacco Use Types Packs/Day Years Used Date Smoking Tobacco: Never Alcohol Use Standard Drinks/Week Comments Yes 0 (1 standard drink = 0.6 oz pur e alcohol) 1-2 year Sex and Gender Information Value Date Recorded Sex Assigned at Not on file Gender Identity Not on file Sexual Orientation Not on file documented as of this encounter Plan of Treatment Upcoming Encounters Date Type Department Care Team (Late st Contact Info) Description 08/23/2024 2:30 PM CORPORATE TAX PREPARER Appointment [facility] [address] [place] [id number] Panchito Walters DO [address] [place] [address] 09/14/2024 10:00 AM CDT Video Visit [facility] - Pulmonology [address] [place] [address] Cresencio Ghosh MD [address] [facility] [address] [place] [id number] documented as of this encounter Visit Diagnoses Not on filedocumented in this encounter Additional Health Concerns Infection Onset Date Last Indicated Resolved Time MRSA 08/18/2019 08/27/2019 10/07/2019 8:51 AM CDT MRSA Hx Comment:10/07/2019 HX MRSA COLONIZATION; NO NEED FOR ISOLATION AT THIS TIME; CHEMICAL INSTRUMENTATION OFFICER INF PREV [id number] 10/07/2019 10/07/2019 09/05/19 8:37 AM CORPORATE TAX PREPARER MRSA 10/07/2019 10/07/2019 01/29/2020 8:33 AM CDT MRSA 01/28/2020 01/28/2020 03/20/2020 7:45 AM CDT COVID-19 Under Investigation 04/06/2020 04/08/2020 04/09/2020 5:20 AM CDT MRSA 04/11/2020 04/11/2020 12/25/2020 9:00 AM CDT COVID-19 Under Investigation 08/07/2020 08/07/2020 08/08/2020 3:45 PM CORPORATE TAX PREPARER COVID-19 Under Investigation 08/11/2020 08/11/2020 08/12/2020 4:08 AM CORPORATE TAX PREPARER MRSA 05/13/2021 02/05/2022 09/04/2022 8:37 AM CORPORATE TAX PREPARER MRSA Hx 09/04/2022 09/04/2022 MDRO Comment:04/01/23 MDRO resolved, ES 02/23/2023 02/23/2023 2023 7:16 AM CDT MDRO Hx 04/01/2023 04/01/2023 MDRO 05/08/2023 05/08/2023 documented as of this encounter Care Teams Place Change Roof Bolter Relationship Specialty Start Date End Date Shilpa Frazier DO [address] [facility] [address] [place] [address] PCP - General Family Medicine 08/06/17 07/31/20 Massiel Melara MD [address] [place] [address] PCP - General Family Medicine 08/01/20 10/01/20 Shilpa Frazier DO [address] [facility] [address] [place] [address] PCP - General Family Medicine 10/02/20 10/03/20 Iron Galindo PA-C [address] [facility] [address] [place] [address] PCP - General Physician Laborer Filter Plant 02/12/23 Cresencio Ghosh MD [address] [facility] [address] [place] [address] PCP - [facility] [place] [facility] P4P 12/29/23 Lidia Barajas MD [address] [facility], [address] Anesthesiology-Pain Management 06/03/19 Shilpa Gandhi MD [address] [facility] [address] [place] [address] Oncology 06/03/19 documented as of this encounter
--- OUTSIDE RECORDS SUMMARY | 2024-07-22 18:06 | XMS_ITS | Encounter Summary ---
Author Organization [facility] Address [address] [place] [address] Care Team Providers Care Wool Classer Name Role Phone Fiordaliza Snell MD Primary Care Provider Encounter Details Date Type Department Care Team (Latest Contact Info) Description 04/01/2003 Inpatient Historical HIS PATIENT IN A BED Anjali Garcia MD NO ADDRESS ON FILE CHR SALPINGO-OOPHORITIS (Primary Dx) Social History Tobacco Use Types Packs/Day Years Used Date Smoking Tobacco: Never Assessed Comments Unknown Sex and Gender Information Value Date Recorded Sex Assigned at Not on file Legal Sex Female 2:43 AM CLINICAL RESEARCH ADMINISTRATOR Gender Identity Not on file Sexual Orientation Not on file documented as of this encounter Plan of Treatment Not on file documented as of this encounter Visit Diagnoses Diagnosis Chronic salpingitis and oophoritis- Primary documented in this encounter Additional Health Concerns Infection Onset Date Last Indicated Resolved Time R/O COVID-19 07/02/2020 07/02/2020 07/02/2020 8:53 PM CLINICAL RESEARCH ADMINISTRATOR MRSA Comment:Resolved per Type and Duration of Precautions Recommended for Selected Infections and Conditions document 2023 update 07/02/2020 07/02/2020 03/16/20 24 10:58 AM CDT R/O COVID-19 07/10/2020 07/10/2020 07/10/2020 5:01 PM CLINICAL RESEARCH ADMINISTRATOR documented as of this encounter Care Teams Wool Classer Relationship Specialty Start Date End Date Fiordaliza Snell MD PCP - General Family Practice 09/09/22 documented as of this encounter
--- OUTSIDE RECORDS SUMMARY | 2024-07-22 18:06 | XMS_ITS | Continuity of Care Document ---
Author Organization [facility] Address [address] [place] [address] Phone Care Team Providers Care Juvenile Court Liaison Name Role Phone Jon Rodriguez MD Unavailable Unavailable Advance Directives Directive Yes / No Effective Date File Name No Information Encounters Encounter Description Practice Location Reason(s) For Visit Diagnoses Date Provider Providers Copied on Encounter [facility], [address] [facility], [place], [place], [id number], tel:[phone] [facility] LUMBAGO 0 Michael Webb. [address] [place] [address], [id number], . tel:[phone] [facility], [address] [facility], [place], [place], [id number], tel:[phone] [facility] LUMBOSACRAL NEURITIS NOS 0 Ranjith Salazar. [address] [place] [address], [id number], . tel:[phone] [facility], [place], [place], [id number], tel:[phone] [facility] SPINAL STENOSIS-LUMBA R 8 No Information [facility] [address] [facility], [place], [place], [id number], tel:[phone] [facility] JOINT DIS NEC-PELVIS 8 No Information [facility] [address] [place] [address], [id number], tel:[phone] [facility] - [place] (Ip) ARTHRODESIS STATUS 7 Michael Webb. [address] [place], [place], [id number], [place]. tel:[phone] [facility], [address] [facility], [place], [place], [id number], [place] tel:[phone] [facility] [place] (Ip) LUMBAR DISC DISPLACEMENT 7 Michael Webb. [address] [facility], [place], [place], [id number], [place]. tel:[phone] [facility], [address] [facility], [place], [place], [id number], [place] tel:[phone] [facility] [place] (Op) PREOP RESPIRATORY EXAM 7 No Information [facility], [address] [facility], [place], [place], [id number], [place] tel:[phone] [facility] [place] (Op) PAIN IN LIMB 7 Michael Webb. [address] [place] [address], [place], [place], [id number], [place]. tel:[phone] [facility], [address] [facility], [place], [place], [id number], [place] tel:[phone] [facility] CERVICALGIA 6 Juliann Gibson. [address], [place], [place], [id number], [place]. tel:[phone] [facility], [address] [place] [address], [id number], [place] tel:[phone] [facility] OTH ADV EFF MED/BIO SUB 6 No Information [facility], [address] [facility], [place], [place], [id number], [place] tel:[phone] [facility] [place] (Er) FALL NOS [address] Monica Tapia. [address], [place], [place], [id number]. tel:[phone] [facility], [address] [facility], [place], [place], [id number], [place] tel:[phone] [facility] [place] (Op) HEADACHE [address] 6 Ranjith Salazar. [address], [place], [place], [id number], [place]. tel:[phone] [facility], [address] [facility], [place], [place], [id number], tel:[phone] [facility] [place] (Op) HEAD INJURY NOS 6 Michael Castellano [address] [place], [place], [id number], . tel:[phone] [facility], [address] [facility], [place], [place], [id number], tel:[phone] [facility] [place] (Er) CERVICAL SPINAL STENOSIS 6 Juliann Sauceda [address] [place] [address], [id number], . tel:[phone] [facility], [address] [facility], [place], [place], [id number], tel:[phone] [facility] [place] (Er) BRACHIAL NEURITIS NOS 6 Juliann Sauceda [address] [place] [address], [id number], . tel:[phone] [facility], [address] [facility], [place], [place], [id number], tel:[phone] [facility] [place] (Ip) FOLLOW-UP SURGERY NOS 4 Michael Castellano [address] [place], [place], [id number], . tel:[phone] [facility], [address] [facility], [place], [place], [id number], tel:[phone] [facility] [place] (Op) COUGH 4 No Information Family History Family Member Type Diagnosis Age At Onset No Information Payers Payer name Insurance type Covered libertarian ID Authoriza tion(s) No Information Social History [...]
--- OUTSIDE RECORDS SUMMARY | 2024-07-22 18:06 | XMS_ITS | Encounter Summary ---
Author Organization [facility] Address 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 Gender Identity Not on file Sexual Orientation Not on file documented as of this encounter Plan of Treatment Not on file documented as of this encounter Procedures Procedure Name Priority Date/Time Associated Diagnosis Comments CBC WITH DIFFERENTIAL Routine 10/14/2004 6:07 AM CDT CBC WITH DIFFERENTIAL Routine 10/14/2004 6:07 AM CDT BASIC METABOLIC PANEL Routine 10/14/2004 6:07 AM CDT LIPASE Routine 10/13/2004 9:56 AM CDT AMYLASE Routine 10/13/2004 9:56 AM CDT CBC WITH DIFFERENTIAL Routine 10/13/2004 5:00 AM CDT CBC WITH DIFFERENTIAL Routine 10/13/2004 5:00 AM CDT C-REACTIVE PROTEIN Routine 10/13/2004 5: 00 AM CDT URINALYSIS W/REFLEX MICROSCOPIC Routine 10/12/2004 9:24 PM CDT PT AND APTT Routine 10/12/2004 9:17 PM CDT C-REACTIVE PROTEIN Routine 10/12/2004 9: 17 PM CDT LIPASE Routine 10/12/2004 9:17 PM CDT AMYLASE Routine 10/12/2004 9:17 PM CDT CBC WITH DIFFERENTIAL Routine 10/12/2004 8:46 PM CDT CBC WITH DIFFERENTIAL Routine 10/12/2004 8:46 PM CDT COMPREHENSIVE METABOLIC PANEL Routine 10/12/2004 8:46 PM CDT documented in this encounter Results * CBC WITH DIFFERENTIAL (10/14/2004 6:07 AM CDT) NEUTROPHILS 46 45 - 70 % INTERFAC E SYSTEM LYMPHOCYTES 43 16 - 45 % INTERFAC E SYSTEM MONOCYTES 6 3 - 13 % INTERFACE SYSTEM EOSINOPHILS 4 0 - 7 % INTERFAC E SYSTEM BASOPHILS 1 0 - 2 % INTERFACE SYSTEM NEUTROPHIL ABSOLUTE 2.81 1.90 - 7.00 K/uL INTERFACE SYSTEM LYMPHOCYTE ABSOLUTE 2.66 0.70 - 4.50 K/uL INTERFACE SYSTEM MONOCYTE ABSOLUTE 0.38 0.10 - 1.30 K/uL INTERFACE SYSTEM EOSINOPHIL ABSOLUTE 0.26 0.00 - 0.70 K/uL INTERFACE SYSTEM BASOPHILS ABSOLUTE 0.05 0.00 - 0.20 K/uL INTERFACE SYSTEM 10/14/2004 6:07 AM CDT us Russell Salazar HEMATOLOGY ORDERABLES Final Resu lt INTERFACE SYSTEM Refer to clinic/hospital department * CBC WITH DIFFERENTIAL (10/14/2004 6:07 AM CDT) WBC 6.2 4.0 - 9.8 K/uL INTERFACE SYSTEM RBC 4.39 3.90 - 4.90 M/uL INTERFACE SYSTEM HEMOGLOBIN 13.0 11.8 - 14.8 g/dL INTERFACE SYSTEM HEMATOCRIT 39.6 35.5 - 44.0 % INTERFACE SYSTEM MCV 90.2 82.0 - 99.0 fL INTERFACE SYSTEM MCH 29.6 27.2 - 32.6 pg INTERFACE SYSTEM MCHC 32.8 31.5 - 35.5 % INTERFACE SYSTEM RDW 13.3 11.5 - 14.5 % INTERFACE SYSTEM RDW-STDEV 43.8 37.1 - 48.7 fL INTERFACE SYSTEM PLATELETS 191 140 - 350 K/uL INTERFACE SYSTEM MPV 10.1 9.3 - 12.4 fL INTERFACE SYSTEM 10/14/2004 6:07 AM CDT [id number] HEMATOLOGY ORDERABLES Final Resu lt Performing Organization Address [facility] Phone Number INTERFACE SYSTEM Refer to clinic/hospital department * (ABNORMAL) BASIC METABOLIC PANEL (10/14/2004 6:07 AM CDT) Pathologist [facility] GLUCOSE 90 65 - 109 mg/dL INTERFACE SYSTEM CREATININE 0.8 0.4 - 1.2 mg/dL INTERFACE SYSTEM CALCIUM 8.2(L) 8.6 - 10.2 mg/dL INTERFACE SYSTEM BUN 7 6 - 20 mg/dL INTERFACE SYSTEM SODIUM 140 135 - 145 mmol/L INTERFACE SYSTEM POTASSIUM 4.3 3.5 - 4.9 mmol/L INTERFACE SYSTEM CHLORIDE 106 96 - 108 mmol/L INTERFACE SYSTEM CO2 27 22 - 30 mmol/L INTERFACE SYSTEM 10/14/2004 6:07 AM CDT [id number] CHEMISTRY ORDERABLES Final Resul t Performing Organization Address [facility] Phone Number INTERFACE SYSTEM Refer to clinic/hospital department * (ABNORMAL) AMYLASE (10/13/2004 9:56 AM CDT) AMYLASE 24(L) 28 - 100 U/L INTERFACE SYSTEM 10/13/2004 9:56 AM CDT Russell Marie CHEMISTRY ORDERABLES Final Resul t Performing Organization Address [facility] Phone Number INTERFACE SYSTEM Refer to clinic/hospital department * LIPASE (10/13/2004 9:56 AM CDT) LIPASE 20 13 - 60 U/L INTERFAC E SYSTEM 10/13/2004 9:56 AM CDT Russell Marie CHEMISTRY ORDERABLES Final Resul t Performing Organization Address [facility] Phone Number INTERFACE SYSTEM Refer to clinic/hospital department * CBC WITH DIFFERENTIAL (10/13/2004 5:00 AM CDT) NEUTROPHILS 57 45 - 70 % INTERFAC E SYSTEM LYMPHOCYTES 32 16 - 45 % INTERFAC E SYSTEM MONOCYTES 8 3 - 13 % INTERFACE SYSTEM EOSINOPHILS 3 0 - 7 % INTERFAC E SYSTEM BASOPHILS 0 0 - 2 % INTERFACE SYSTEM NEUTROPHIL ABSOLUTE 3.77 1.90 - 7.00 K/uL INTERFACE SYSTEM LYMPHOCYTE ABSOLUTE 2.16 0.70 - 4.50 K/uL INTERFACE SYSTEM MONOCYTE ABSOLUTE 0.51 0.10 - 1.30 K/uL INTERFACE SYSTEM EOSINOPHIL ABSOLUTE 0.20 0.00 - 0.70 K/uL INTERFACE SYSTEM BASOPHILS ABSOLUTE 0.03 0.00 - 0.20 K/uL INTERFACE SYSTEM 10/13/2004 5:00 AM CDT Russell Marie HEMATOLOGY ORDERABLES Final Resu lt Performing Organization Address [facility] de Phone Number INTERFACE SYSTEM Refer to clinic/hospital department * CBC WITH DIFFERENTIAL (10/13/2004 5:00 AM CDT) WBC 6.7 4.0 - 9.8 K/uL INTERFACE SYSTEM RBC 4.06 3.90 - 4.90 M/uL INTERFACE SYSTEM HEMOGLOBIN 12.2 11.8 - 14.8 g/dL INTERFACE SYSTEM HEMATOCRIT 36.0 35.5 - 44.0 % INTERFACE SYSTEM MCV 88.7 82.0 - 99.0 fL INTERFACE SYSTEM MCH 30.0 27.2 - 32.6 pg INTERFACE SYSTEM MCHC 33.9 31.5 - 35.5 % INTERFACE SYSTEM RDW 13.3 11.5 - 14.5 % INTERFACE SYSTEM RDW-STDEV 42.3 37.1 - 48.7 fL INTERFACE SYSTEM PLATELETS 170 140 - 350 K/uL INTERFACE SYSTEM MPV 10.0 9.3 - 12.4 fL INTERFACE SYSTEM 10/13/2004 5:00 AM CDT us Russell Marie HEMATOLOGY ORDERABLES Final Resu lt Performing Organization Address [facility] Phone Number INTERFACE SYSTEM Refer to clinic/hospital department * (ABNORMAL) C-REACTIVE PROTEIN (10/13/2004 5:00 AM CDT) CRP 1.3(H) 0.0 - 0.8 mg/dL INTERFACE SYSTEM 10/13/2004 5:00 AM CDT Russell Marie CHEMISTRY ORDERABLES Final Resul t Performing Organization Address [facility] Phone Number INTERFACE SYSTEM Refer to clinic/hospital department * URINALYSIS (10/12/2004 9:24 PM CDT) COLOR UA Yellow INTERFACE SYSTEM CLARITY UA Clear Clear INTERFACE SYSTEM SPECIFIC GRAVITY UA 1.010 1.001 - 1.035 INTERFACE SYSTEM PH UA 6.5 5.0 - 8.0 INTERFACE SYSTEM LEUKOCYTE ESTERASE UA Negative Negative INTERFACE SYSTEM NITRITE UA Negative Negative INTERFACE SYSTEM PROTEIN UA Negative Negative INTERFACE SYSTEM GLUCOSE UA Negative Negative INTERFACE SYSTEM KETONES UA Negative Negative INTERFACE SYSTEM UROBILINOGEN UA <1 <1 EU INTE RFACE SYSTEM BILIRUBIN UA Negative Negative INTERFA CE SYSTEM BLOOD UA Negative Negative INTERFACE SYSTEM 10/12/2004 9:24 PM CDT us Ida Lane MD URINE ORDERABLES Final Result Performing Organization Address [facility] Co fl Phone Number INTERFACE SYSTEM Refer to clinic/hospital department * PT AND APTT (10/12/2004 9:17 PM CDT) PROTIME 14.4 12.9 - 15.7 Seconds INTERFACE SYSTEM INR 1.0 0.9 - 1.1 INTERFACE SYSTEM Comment: INR Therapeutic Range: Adult: 2.0 - 3.0 for pulmonary embolism or prophylaxis against venous thrombosis or systemic embolization. 2.0 - 3.0 for patients with tissue heart valves. ?? 3.0 - 4.5 for patients with mechanical heart valves. Pediatric ??(12 years and under): 1.5 - 3.0 Although the target range in children is not well established, INR values of 1.5 - 3.0 are recommended for most patients. Higher values have been used in children with prosthetic cardiac valves and hereditary clotting disorders. (<3 days) therapeutic ranges have not been established. PTT 31.6 25.0 - 35.0 Seconds INTERFACE SYSTEM Comment: PTT Therapeutic Range: Heparin Level ? PTT (seconds) <0.10 units/mL ? <45 0.10 - 0.30 units/mL ? 45 - 65 0.30 - 0.70 units/mL* ? 65 - 106* 0.70 - 1.00 units/mL ? 106 - 137 *corresponds to therapeutic range for unfractionated heparin 10/12/2004 9:17 PM CDT us Ida Lane MD HEMATOLOGY ORDERABLES Final Resu lt Performing Organization Address [facility] de Phone Number INTERFACE SYSTEM Refer to clinic/hospital department * (ABNORMAL) C-REACTIVE PROTEIN (10/12/2004 9:17 PM CDT) CRP 1.4(H) 0.0 - 0.8 mg/dL INTERFACE SYSTEM 10/12/2004 9:[address] us Ida Lane MD CHEMISTRY ORDERABLES Final Resul t INTERFACE SYSTEM Refer to clinic/hospital department * LIPASE (10/12/2004 9:17 PM CDT) LIPASE 41 13 - 60 U/L INTERFAC E SYSTEM 10/12/2004 9:[address] MD CHEMISTRY ORDERABLES Final Resul t Performing Organization Address [facility] Phone Number INTERFACE SYSTEM Refer to clinic/hospital department * AMYLASE (10/12/2004 9:17 PM CDT) AMYLASE 39 28 - 100 U/L INTERFACE SYSTEM Comment:Previous specimen us ed; approved by floor. 10/12/2004 9:[address] MD CHEMISTRY ORDERABLES Final Resul t Performing Organization Address [facility] Phone Number INTERFACE SYSTEM Refer to clinic/hospital department * CBC WITH DIFFERENTIAL (10/12/2004 8:46 PM CDT) NEUTROPHILS 56 45 - 70 % INTERFAC E SYSTEM LYMPHOCYTES 35 16 - 45 % INTERFAC E SYSTEM MONOCYTES 6 3 - 13 % INTERFACE SYSTEM EOSINOPHILS 3 0 - 7 % INTERFAC E SYSTEM BASOPHILS 1 0 - 2 % INTERFACE SYSTEM NEUTROPHIL ABSOLUTE 5.21 1.90 - 7.00 K/uL INTERFACE SYSTEM LYMPHOCYTE ABSOLUTE 3.22 0.70 - 4.50 K/uL INTERFACE SYSTEM MONOCYTE ABSOLUTE 0.54 0.10 - 1.30 K/uL INTERFACE SYSTEM EOSINOPHIL ABSOLUTE 0.26 0.00 - 0.70 K/uL INTERFACE SYSTEM BASOPHILS ABSOLUTE 0.05 0.00 - 0.20 K/uL INTERFACE SYSTEM 10/12/2004 8:[address] MD HEMATOLOGY ORDERABLES Final Resu lt Performing Organization Address [facility] Co de Phone Number INTERFACE SYSTEM Refer to clinic/hospital department * CBC WITH DIFFERENTIAL (10/12/2004 8:46 PM CDT) WBC 9.3 4.0 - 9.8 K/uL INTERFACE SYSTEM RBC 4.67 3.90 - 4.90 M/uL INTERFACE SYSTEM HEMOGLOBIN 14.1 11.8 - 14.8 g/dL INTERFACE SYSTEM HEMATOCRIT 40.7 35.5 - 44.0 % INTERFACE SYSTEM MCV 87.2 82.0 - 99.0 fL INTERFACE SYSTEM MCH 30.2 27.2 - 32.6 pg INTERFACE SYSTEM MCHC 34.6 31.5 - 35.5 % INTERFACE SYSTEM RDW 13.3 11.5 - 14.5 % INTERFACE SYSTEM RDW-STDEV 41.9 37.1 - 48.7 fL INTERFACE SYSTEM PLATELETS 213 140 - 350 K/uL INTERFACE SYSTEM MPV 10.0 9.3 - 12.4 fL INTERFACE SYSTEM 10/12/2004 8:[address] us Ida Lane MD HEMATOLOGY ORDERABLES Final Resu lt Performing Organization Address [facility]/ZIP Co de Phone Number INTERFACE SYSTEM Refer to clinic/hospital department * (ABNORMAL) COMPREHENSIVE METABOLIC PANEL (10/12/2004 8:46 PM CDT) GLUCOSE 103 65 - 109 mg/dL INTERFACE SYSTEM CREATININE 0.8 0.4 - 1.2 mg/dL INTERFACE SYSTEM CALCIUM 9.3 8.6 - 10.2 mg/dL INTERFACE SYSTEM AST 19 12 - 32 U/L INTERFACE SYSTEM ALKALINE PHOSPHATASE 100 35 - 104 U/L INTERFACE SYSTEM BUN 16 6 - 20 mg/dL INTERFACE SYSTEM BILIRUBIN TOTAL 0.4 0.2 - 1.0 mg/dL INTERFACE SYSTEM ALBUMIN 4.5 3.4 - 4.8 g/dL INTERFACE SYSTEM TOTAL PROTEIN 7.2 6.3 - 8.6 g/dL INTERFACE SYSTEM ALT 34(H) 0 - 31 U/L INTERFACE SYSTEM SODIUM 138 135 - 145 mmol/L INTERFACE SYSTEM POTASSIUM 3.6 3.5 - 4.9 mmol/L INTERFACE SYSTEM CHLORIDE 100 96 - 108 mmol/L INTERFACE SYSTEM CO2 28 22 - 30 mmol/L INTERFACE SYSTEM 10/12/2004 8:[address] MD CHEMISTRY ORDERABLES Final Resul t INTERFACE SYSTEM Refer to clinic/hospital department documented in this encounter Visit Diagnoses Diagnosis Abdominal pain, right lower quadrant- Primary documented in this encounter Additional Health Concerns Infection Onset Date Last Indicated Resolved Time R/O COVID-07/02/2020 07/02/2020 07/02/2020 8:53 PM TEACHER TUTOR MRSA Comment:Resolved per Type and Duration of Precautions Recommended for Selected Infections and Conditions document 2023 update 07/02/2020 07/02/2020 03/16/20 10:58 AM CDT R/O COVID-07/10/2020 07/10/2020 07/10/2020 5:01 PM TEACHER TUTOR documented as of this encounter Care Teams Cover Seamer Relationship Specialty Start Date End Date Fiordaliza Snell MD PCP - General Family Practice 09/09/22 documented as of this encounter
--- OUTSIDE RECORDS SUMMARY | 2024-07-22 18:06 | XMS_ITS | Encounter Summary ---
Author Organization [facility] Address [address] [place] [address] Care Team Providers Care Furniture Inspector Name Role Phone Fiordaliza Snell MD Primary Care Provider Encounter Details Date Type Department Care Team (Late st Contact Info) Description 05/06/2001 Outpatient Historical [facility] Pratik Fisher MD [address] [place] [address] Er, Authorized P NO ADDRESS ON FILE ABDOMINAL PAIN OTHER SPEC SITE (Primary Dx) Social History Tobacco Use Types Packs/Day Years Used Date Smoking Tobacco: Never Assessed Comments Unknown Sex and Gender Information Value Date Recorded Sex Assigned at Not on file Legal Sex Female 2:43 AM TREE WARDEN Gender Identity Not on file Sexual Orientation Not on file documented as of this encounter Plan of Treatment Not on file documented as of this encounter Visit Diagnoses Diagnosis Abdominal pain, other specified site- Primary documented in this encounter Additional Health Concerns Infection Onset Date Last Indicated Resolved Time R/O COVID-19 07/02/2020 07/02/2020 07/02/2020 8:53 PM TREE WARDEN MRSA Comment:Resolved per Type and Duration of Precautions Recommended for Selected Infections and Conditions document 2023 update 07/02/2020 07/02/2020 03/16/20 10:58 AM CDT R/O COVID-19 07/10/2020 07/10/2020 07/10/2020 5:01 PM TREE WARDEN documented as of this encounter Care Teams Furniture Inspector Relationship Specialty Start Date End Date Fiordaliza Snell MD PCP - General Family Practice 09/09/22 documented as of this encounter
--- OUTSIDE RECORDS SUMMARY | 2024-07-22 18:06 | XMS_ITS | Encounter Summary ---
Author Organization [facility] Address 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 Gender Identity Not on file Sexual Orientation Not on file documented as of this encounter Plan of Treatment Not on file documented as of this encounter Visit Diagnoses Diagnosis Other and unspecified ovarian cyst- Primary documented in this encounter Additional Health Concerns Infection Onset Date Last Indicated Resolved Time R/O COVID-19 07/02/2020 07/02/2020 07/02/2020 8:53 PM REWORKER MRSA Comment:Resolved per Type and Duration of Precautions Recommended for Selected Infections and Conditions document 2023 update 07/02/2020 07/02/2020 03/16/20 24 10:58 AM CDT R/O COVID-19 07/10/2020 07/10/2020 07/10/2020 5:01 PM REWORKER documented as of this encounter Care Teams Cellophane Bath Mixer Relationship Specialty Start Date End Date Fiordaliza Snell MD PCP - General Family Practice 09/09/22 documented as of this encounter
--- OUTSIDE RECORDS SUMMARY | 2024-07-22 18:06 | XMS_ITS | Encounter Summary ---
Author Organization [facility] Address 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 Gender Identity Not on file Sexual Orientation Not on file documented as of this encounter Plan of Treatment Not on file documented as of this encounter Visit Diagnoses Diagnosis Lumbago- Primary documented in this encounter Additional Health Concerns Infection Onset Date Last Indicated Resolved Time R/O COVID-19 07/02/2020 07/02/2020 07/02/2020 8:53 PM WILDLAND FIRE FIGHTER SPECIALIST MRSA Comment:Resolved per Type and Duration of Precautions Recommended for Selected Infections and Conditions document 2023 update 07/02/2020 07/02/2020 03/16/20 24 10:58 AM CDT R/O COVID-19 07/10/2020 07/10/2020 07/10/2020 5:01 PM WILDLAND FIRE FIGHTER SPECIALIST documented as of this encounter Care Teams Campus Safety Officer Relationship Specialty Start Date End Date Fiordaliza Snell MD PCP - General Family Practice 09/09/22 documented as of this encounter
--- OUTSIDE RECORDS SUMMARY | 2024-07-22 18:06 | XMS_ITS | Continuity of Care Document ---
Author Organization [facility] Address [address] [place] [address] Phone Care Team Providers Care Conveyor Feeder Name Role Phone Denys Enrique MD Unavailable Unavailable Allergies, Adverse Reactions, Alerts Substance Reaction Status Criticality Sulfa (Sulfonamide Antibiotics) Rash, Swelling Active No Information latex Rash Active No Information Medications Medication Instructions Dosage Effective Dates (start - stop) Status Comments ropinirole 1 mg tablet - Active gabapentin (bulk) 100 % powder - Active losartan 100 mg-hydrochlorothiazide 12.5 mg tablet - Active Procedures Procedure Date BMI Documented Above Normal Limit F/U Pl an Doc X-ray exam knee, 4+ views X-ray exam knee, 3 views Office/outpatient visit,est, mod 2023 X-ray exam shoulder complete, minimum 2 views X-ray exam shoulder complete, minimum 2 views Office/outpatient visit,new, mod 2021 Office/outpatient visit,new, mod 2009 X-ray exam of hip, complete X-ray exam of pelvis, 1-2 views 010 Advance Directives Directive Yes / No Effective Date File Name No Information Encounters Encounter Description Practice Location Reason(s) For Visit Diagnoses Date Provider Providers Copied on Encounter Office/outpa tient visit,est, mod [facility], [address], [place], [place], [id number], [place] tel:[phone] [facility] r knee (chief complaint) Pain in right knee 4 Kalus Mcfarlane. [address] [place] [address], [place], [place], [id number], [place]. tel:[phone] Referring Provider: Martin Medina, [address] [place] [address] [address] [facility], [place], [address]. tel:[phone] [facility], [address] [place] [address], [id number], [place] tel:[phone] [facility] Pain in left shoulder Aug- 2 Klaus Denys. [address] [place] [address], [place], [place], [id number], [place]. tel:[phone] [facility]pa [facility] visit,[facility], [address] [place] [address], [id number], [place] tel:[phone] [facility] fell Out Of Wheelchair And Shived Both Shoulders (chief complaint) Pain in left shoulderPain in right shoulder Aug- 2 Klaus Mcfarlane. [address] [place] [address], [place], [place], [id number], [place]. tel:[phone] Referring Provider: Martin Medina, [address] [place] [address] [address] [facility], [place], [address]. tel:[phone] Office/outpa tient visit,[employer] [facility], [address] [place] [address], [id number], [place] tel:[phone] [facility] No Information Sep-2 0 No Information Referring Provider: Martin Medina, [address] [place] [address] [address] [facility], [place], [address]. tel:[phone] Family History Family Member Type Diagnosis Age At Onset Mother Problem (finding) Heart Disease Brother Problem (finding) Depression Mother Problem (finding) Cancer, unknown Mother Problem (finding) Depression Brother Problem (finding) Hypertension Father Problem (finding) Cancer, unknown Mother Problem (finding) Hypertension Father Problem (finding) Hypertension Father Problem (finding) Depression Payers Payer name Insurance type Covered republican ID Gail deal(s) [employer] Medicare Advantage CI [id number] Social History Type Description Quantity Date Captured Comments Alcohol Use Details Unknown Caffeine Use Details Unknown Tobacco Use Status No Information Smoking Status No Information Sex Female Vital Signs Date / Time: Height Weight BMI Pulse Rate Blood Pressure Temperature Respiratory Rate Body Surface Area Head Circumference Head Circ. Percentile Wt./Clement. Percentile BMI percentile Pulse Ox Inhaled Ox 9:27 AM 68.00 in 91.172 kg (201.00 lbs) 30.5 6 kg/m eter (2) 2.09 meter(2) Chief Complaint And Reason For Visit From encounter dated '12/04/2023 10:05'. r knee (chief complaint). Description: patient presents to the office today for evaluation of rightknee pain Reason For Referral Reason For Referral No Information Plan Of Treatment Date Type Action Status Referral Ordered: X-ray exam knee, 3 views RT knee ordered Referral Ordered: MRI Upper extr joint, w/o contrast LT shoulder ordered Referral Ordered: X-ray exam shoulder complete, minimum 2 views LT shoulder ordered Referral Ordered: X-ray exam shoulder complete, minimum 2 views RT shoulder ordered History Of Present Illness Encounter Date Complaint History Of Prese nt Illness r knee patient presents to the office today for evaluation of right knee pain fell Out Of Wheelcha ir And Shived Both Shoulders patient presents to the office today for evaluation of bilat shoulder pain Functional Status Date Functional Assessmen t No Information Instructions Date Instruction Additional Infor mation No Information Assessments Type Assessment Date assessment Pain in right knee Patient Care Teams Name Effective Dates (start - stop) Status Members No Information
--- OUTSIDE RECORDS SUMMARY | 2024-07-22 18:06 | XMS_ITS | Encounter Summary ---
Author Organization [facility] Address 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) (postinfection) (Primary Dx) Social History Tobacco Use Types Packs/Day Years Used Date Smoking Tobacco: Never Assessed Comments Unknown Sex and Gender Information Value Date Recorded Sex Assigned at Not on file Legal Sex Female 2:43 AM CLOTH ROLL WINDER Gender Identity Not on file Sexual Orientation Not on file documented as of this encounter Plan of Treatment Not on file documented as of this encounter Visit Diagnoses Diagnosis Pelvic peritoneal adhesions, female (postoperative) (postinfection)- Primary documented in this encounter Additional Health Concerns Infection Onset Date Last Indicated Resolved Time R/O COVID-19 07/02/2020 07/02/2020 07/02/2020 8:53 PM CLOTH ROLL WINDER MRSA Comment:Resolved per Type and Duration of Precautions Recommended for Selected Infections and Conditions document 2023 update 07/02/2020 07/02/2020 03/16/20 24 10:58 AM CDT R/O COVID-19 07/10/2020 07/10/2020 07/10/2020 5:01 PM CLOTH ROLL WINDER documented as of this encounter Care Teams Dairy Associate Relationship Specialty Start Date End Date Fiordaliza Snell MD PCP - General Family Practice 09/09/22 documented as of this encounter
--- OUTSIDE RECORDS SUMMARY | 2024-07-22 18:06 | XMS_ITS | Encounter Summary ---
Author Organization [facility] Address [address] [place] [address] Care Team Providers Care Fire Alarm Mechanic Name Role Phone Fiordaliza Snell MD Primary Care Provider Encounter Details Date Type Department Care Team (Latest Contact Info) Description 11/13/2004 Outpatient Historical [facility] RONALD Garcia, Anjali Gupta MD NO ADDRESS ON FILE LUMP OR MASS IN BREAST (Primary Dx) Social History Tobacco Use Types Packs/Day Years Used Date Smoking Tobacco: Never Assessed Comments Unknown Sex and Gender Information Value Date Recorded Sex Assigned at Not on file Legal Sex Female 2:43 AM BUTADIENE CONVERTER HELPER Gender Identity Not on file Sexual Orientation Not on file documented as of this encounter Plan of Treatment Not on file documented as of this encounter Visit Diagnoses Diagnosis Lump or mass in breast- Primary documented in this encounter Additional Health Concerns Infection Onset Date Last Indicated Resolved Time R/O COVID-19 07/02/2020 07/02/2020 07/02/2020 8:53 PM BUTADIENE CONVERTER HELPER MRSA Comment:Resolved per Type and Duration of Precautions Recommended for Selected Infections and Conditions document 2023 update 07/02/2020 07/02/2020 03/16/20 24 10:58 AM CDT R/O COVID-19 07/10/2020 07/10/2020 07/10/2020 5:01 PM BUTADIENE CONVERTER HELPER documented as of this encounter Care Teams Fire Alarm Mechanic Relationship Specialty Start Date End Date Fiordaliza Snell MD PCP - General Family Practice 09/09/22 documented as of this encounter
--- OUTSIDE RECORDS SUMMARY | 2024-07-22 18:06 | XMS_ITS | Encounter Summary ---
Author Organization [facility] Address [address] [place] [address] Care Team Providers Care Grinding Room Inspector Name Role Phone Fiordaliza Snell MD Primary Care Provider Encounter Details Date Type Department Care Team (Latest Contact Info) Description 08/11/1998 Inpatient Historical [facility] Anjali Garcia MD NO ADDRESS ON FILE Excessive or frequent menstruation (Primary Dx) Social History Tobacco Use Types Packs/Day Years Used Date Smoking Tobacco: Never Assessed Comments Unknown Sex and Gender Information Value Date Recorded Sex Assigned at Not on file Legal Sex Female 2:43 AM PRECISION AGRONOMIST Gender Identity Not on file Sexual Orientation Not on file documented as of this encounter Plan of Treatment Not on file documented as of this encounter Visit Diagnoses Diagnosis Excessive or frequent menstruation- Primary documented in this encounter Additional Health Concerns Infection Onset Date Last Indicated Resolved Time R/O COVID-19 07/02/2020 07/02/2020 07/02/2020 8:53 PM PRECISION AGRONOMIST MRSA Comment:Resolved per Type and Duration of Precautions Recommended for Selected Infections and Conditions document 2023 update 07/02/2020 07/02/2020 03/16/20 24 10:58 AM CDT R/O COVID-19 07/10/2020 07/10/2020 07/10/2020 5:01 PM PRECISION AGRONOMIST documented as of this encounter Care Teams Grinding Room Inspector Relationship Specialty Start Date End Date Fiordaliza Snell MD PCP - General Family Practice 09/09/22 documented as of this encounter
--- OUTSIDE RECORDS SUMMARY | 2024-07-22 18:06 | XMS_ITS | Patient Health Record ---
Author Organization [facility] Address [address] [place] [address] Care Team Providers Care Second Ride Fare Collector Name Role Phone Jj Nuñez Unavailable [phone] Dave Louis Unavailable Unavailable ALLERGIES Allergen (clinical drug ingredient) Drug/Non Drug Allergy documented on EMR Reaction Allergy Type Onset Date Status Latex Latex Unknown Allergy Active Substance with sulfonamide structure and antibacterial mechanism of action (substance) Sulfa Antibiotics Unknown Drug Allergy Active REASON FOR REFERRAL No Information MEDICATIONS Medication SIG (Take, Route, Frequency, Duration) Notes Start Date End Date Status Pyridium Active Multivitamin Active Atorvastatin Calcium Active Mirabegron ER Active Aspirin EC Active Mineral Oil Active ALPRAZolam Active Azo Tabs Active Losartan Potassium A ctive Zolpidem Tartrate Ac tive linaCLOtide Active Uribel Active Lactose Active tiZANidine HCl Activ e Metoprolol Succinate Active Acetaminophen Extra Strength Active Methenamine Hippurate Active Meloxicam Active Lubiprostone Active Lyrica 100 MG 1 capsule Orally rodrick ry 8 hours for 30 days 07/18/2022 Active Hydrocortisone Activ e HYDROcodone-Acetaminophen Active Solifenacin Succinate Active Gabapentin Active Requip Active Escitalopram Oxalate Active Ondansetron Active Cyclobenzaprine HCl Active OLANZapine Active [place]ofen Active Nystatin-Triamcinolone Active Nystatin Active rOPINIRole HCl Activ e Enoxaparin Active Regenecare Active dilTIAZem HCl Active Pantoprazole Sodium Active Dicyclomine HCl Acti ve oxyCODONE HCl Active Diclofenac Active Thera M Plus Active SOCIAL HISTORY Tobacco Use: Social History Observation Description Date Details (start date - stop date) Never Smoker NA - NA Sex Assigned At : Social History Observation Description Sex Assigned At Unknown Tobacco Use/Smoking Question Answer Notes Are you a nonsmoker PROBLEMS Problem Type ICD Code Onset Dates Problem Status W/U Status Risk SNOMED Code Notes Problem 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 (68486110) Problem Radiculopathy, lumbosacral region (M54.17) Active confirmed Lumbosacral radiculopathy (0824264) PLAN OF TREATMENT No Information Insurance Providers Payer Name Payer Address Payer Phone Subscriber Number Group Number Insured Name Patient Relationship to Insured Coverage Start Date Coverage End Date [facility] [id number] [place] [address] [id number] Angelina Mcnulty Self - patient is the insured MEDICAL (GENERAL) HISTORY Medical History History ICD Code HBP heart attack osteoarthritis fibromyalgia urinary incontinence headaches migraines stroke nerve damage IBS asthma chronic bronchitis pneumonia depression anxiety Surgical History Surgery Date(Month/Year) spine fusion & stimulator 2004 spine fusion 2006 spine fusion 2021
--- OUTSIDE RECORDS SUMMARY | 2024-07-22 18:06 | XMS_ITS | Patient Health Summary ---
Author Organization [facility] Address [address] [place] [address] Care Team Providers Care Manager Private Name Role Phone Lidia Barajas MD Unavailable Shilpa Gandhi MD Unavailable [phone] Iron Galindo PA-C Primary Care Provide r Cresencio Ghosh MD Unavailable [phone] [facility],non-owned Affiliates and Associated Physician Practices is amultiple site organization consisting of ambulatory clinics and hospital sitesin [place], [place], [place] and [place]. This disclosure is being madepursuant to the Care Everywhere program and may not contain all information available regarding this patient. Last updated 18.[facility] Allergies * Adhesive Sensitivity(Skin Reactions) -Medium Criticality * Latex(Itching,Rash) -Medium Criticality * Penicillins(Urticaria) -Medium Criticality * Sulfa Drugs(Urticaria) -Medium Criticality * Vancomycin(Urticaria,Itching) -Medium Criticality * Hydrocodone(Itching) -Medium Criticality,Inactive * Hydrocodone-Acetaminophen(Itching),Inactive Medications * Be aware that medications may not be up to date on this document. Alwaysverify current medications with the patient. * ALPRAZolam (XANAX) 0.25 MG tablet(Started 08/19/2019) Take 1 tablet by mouth 3 times daily as needed for Anxiety 1 refill by 02/15/2020 * losartan (COZAAR) 50 MG tablet(Started 01/30/2020) Take 1 tablet by mouth 2 times daily Reasons: High Blood Pressure Disorder * atorvastatin (LIPITOR) 10 MG tablet(Started 03/31/2020) Take 1 tablet by mouth at bedtime 3 refills by 03/31/2021 * diclofenac sodium (VOLTAREN) 1 % gel(Started 05/22/2020) Apply 2 g to affected area 4 times daily as needed Reasons: Backache 1 refill by 05/22/2021 * escitalopram (LEXAPRO) 20 MG tablet(Started 07/17/2020) Take 1 (one) tablet by mouth once daily 3 refills by 07/17/2021 * metoprolol succinate XL 24hr (TOPROL XL) 25 MG tablet(Started 08/29/2020) Take 1 (one) tablet by mouth at bedtime * Fwtrgurwf-Gugkqeds-Jtfy Vera (REGENECARE) 2 %(Started 05/29/2020) * ondansetron, disintegrating, (ZOFRAN ODT) 4 MG tablet(Started 12/20/2020) Take 1 (one) tablet by mouth every 8 hours as needed for Nausea/Vomiting Allow tablet to dissolve on the tongue * gabapentin (Neurontin) 300 MG capsule Take 3 (three) capsules by mouth 4 times daily * Acetaminophen Extra Strength 500 MG tablet(Started 02/21/2022) Take 2 (two) tablets by mouth every 6 hours as needed For pain. * Multiple Vitamins-Minerals (Thera-M) TABS Take 1 (one) tablet by mouth once daily * cyclobenzaprine (Flexeril) 5 MG tablet(Started 09/18/2022) Take 1 (one) tablet by mouth 3 times daily as needed (spasms) 2 refills by 09/18/2023 * Nystop 510880 UNIT/GM powder(Started 12/10/2022) Apply to affected area 2 times daily as needed * furosemide (Lasix) 20 MG tablet Take 1 (one) tablet by mouth once daily * ascorbic acid (Vitamin C) 500 MG tablet(Started 03/25/2023) Take 1 (one) tablet by mouth once daily * melatonin 5 MG tablet(Started 03/25/2023) Take one tab approximately 2 hours prior to intended bedtime. * sulfamethoxazole-trimethoprim (Bactrim DS; Septra DS) 800-160 MG tablet (Started 05/07/2023) Take 1 (one) tablet by mouth every 12 hours Reasons: Urinary Tract Infection * oxyCODONE, immediate release, (Roxicodone) 5 MG tablet(Started 06/03/2023) Take 1 (one) tablet by mouth every 6 hours as needed for Pain Reasons: Chronic Pain * zolpidem (Ambien) 5 MG tablet(Started 03/17/2024) Take 1 (one) tablet by mouth nightly as needed FOR INSOMNIA 5 refills by 09/13/2024 * rOPINIRole (Requip) 1 MG tablet(Started 07/07/2024) TAKE 1 (ONE) TABLET BY MOUTH 2 TIMES DAILY TAKE ONE TAB AT SUPPER AND ONE TABLETS AT BEDTIME FOR RESTLESS LEG SYNDROME Ended Medications* rOPINIRole (Requip) 1 MG tablet(Started 03/16/2024) (Discontinued) Take 1 (one) tablet by mouth 2 times daily TAKE ONE TAB AT SUPPER AND ONE TABLETS AT BEDTIME FOR RESTLESS LEG SYNDROME 1 refill by 03/16/2025 Active Problems Problem Noted Date Diagnosed Date [...] of lumbar spinal fusion 03/20/2019 Backache 10/13/2011 Asthma with acute exacerbation 03/04/2009 Hypoxia 03/04/2009 Hypertension 03/04/2009 SOB (shortness of breath) 03/03/2009 Cough 03/02/2009 Resolved Problems Problem Noted Date Diagnosed Date Resolved Date Suspected sleep apnea 02/16/20202023 Snoring 02/16/2020 03/16/2024 Fall 01/14/2009 03/04/2009 Immunizations * INFLUENZA VACCINE(Given 05/15/2022, 05/06/2018, 04/30/2017) * INFLUENZA VACCINE, QUADR. (FLUZONE; FLULAVAL; FLUARIX; AFLURIA QUADRIVALENT; 6MO+), 0.5 ML (IIV4)(Given 03/22/2020, 03/26/2019, 05/06/2018) Social History Tobacco Use Types Packs/Day Years [...] care, and heating? Not very hard 04/02/2023 [facility] [place] of Occupat ional Health - Occupational Stress [...] money to buy more. Never true 04/02/20 Within the past 12 months, t he [...] place to sleep or slept in a care home (including now)? No 04/02/2023 Sex and Gender Information Value Date Recorded Sex Assigned at Not on file Gender Identity Not on file Sexual Orientation Not on file Last Filed Vital Signs Vital Sign Reading Time Taken Comments Blood Pressure 157/91 05/07/2023 9:23 AM SUPERVISOR POWER REACTOR Pulse 86 05/07/2023 9:23 AM SUPERVISOR POWER REACTOR Temperature 36.3 ??C (97.3 ??F) 05/07/2023 9:23 AM CS T Respiratory Rate 18 04/02/2023 3:00 PM CDT Oxygen Saturation 95% 05/07/2023 9:23 AM SUPERVISOR POWER REACTOR Inhaled Oxygen Concentration 97% 02/21/2021 1 0:15 AM CDT Weight 95.3 kg (210 lb) 03/16/2024 10:50 AM CDT Height 172.7 cm (5' 8 ) 03/16/2024 10:50 AM CDT Body Mass Index 31.93 03/16/2024 10:50 AM CDT Medical Devices Implanted Type Area Webbing Tacker Device Identifier Shelf Expiration Date Model / Serial / Lot Floseal Hemostatic Matrix Implanted:Qty: 1 on 04/02/2019 by Maicol Mcneil DO at [facility] N/A: Spine [employer] 08/10/2020 [id number] / / [id number] Graft Tissue Drgn + Bvn Clgn Mtrx 1x1in Implanted:Qty: 1 on 04/02/2019 by Maicol Mcneil DO at [facility] N/A: Spine [employer] 04/29/2021 [id number] / / [id number] Seal Tisseel Prima 1 Prefil Frz 4ml - [id number] Implanted:Qty: 1 on 04/02/2019 by Maicol Mcneil DO at [facility] N/A: Spine [employer] 08/27/2020 [id number] / [id number] / [id number] Impl Inj 1ml Coaptite Syr Bulk Agnt Implanted:Qty: 2 on 04/11/2020 by Dave Aparicio MD at [facility] N/A: Bladder [employer] 10/25/2022 [id number] / / [id number] Impl Inj 1ml Coaptite Syr Bulk Agnt Implanted:Qty: 2 on 02/05/2022 by Dave Aparicio MD at [facility] [place] Bladder [employer] 10/16/2024 [id number] / / [id number] Stent Uret 7fr 80cm Str Cls Tip Llok Implanted:Qty: 1 on 09/03/2022 by Nel Cerna DO at [facility] Ureter [employer] 12/23/2025 [id number] / / [id number] Description:bilateral ureter s Procedures * POLYSOMNOGRAPHY 4 OR MORE PARAMETERS WITH CPAP(Performed 08/06/2023) Performed for Restless legs syndrome (RLS), YAJAIRA (obstructive sleep apnea), Snoring, Subarachnoid bleed (HCC), Suspected sleep apnea, Tachycardia, Hypertension, unspecified type, Hypoxia, Circadian rhythm sleep disorder, irregular sleep wake type, Chronic insomnia, PLMD (periodic limb movement disord er) * CULTURE URINE(Performed 05/08/2023) Performed for History of ileal conduit, Hernia of ureteroileal conduit stoma (HCC), Abdominal pain,unspecified abdominal location * CARDIAC EKG ORDER(Performed 04/04/2023) * BASIC METABOLIC PANEL (CALCIUM TOTAL)(Performed 04/02/2023) * CBC W/O DIFFERENTIAL(Performed 04/02/2023) * PHOSPHORUS BLOOD(Performed 04/02/2023) * MAGNESIUM BLOOD(Performed 04/02/2023) * BASIC METABOLIC PANEL (CALCIUM TOTAL)(Performed 04/01/2023) * CBC W/O DIFFERENTIAL(Performed 04/01/2023) * PHOSPHORUS BLOOD(Performed 04/01/2023) * MAGNESIUM BLOOD(Performed 04/01/2023) * EKG 12-LEAD(Performed 03/31/2023) Performed for Chronic insomnia * OT EVAL AND TREAT(Performed 03/31/2023) * BASIC METABOLIC PANEL (CALCIUM TOTAL)(Performed 03/31/2023) * CBC W/O DIFFERENTIAL(Performed 03/31/2023) * PHOSPHORUS BLOOD(Performed 03/31/2023) * MAGNESIUM BLOOD(Performed 03/31/2023) * CT ABDOMEN PELVIS W CONTRAST(Performed 03/30/2023) Performed for Abdominal pain, left lower quadrant * CULTURE URINE(Performed 03/30/2023) * URINALYSIS W/MICROSCOPIC NO CULTURE(Performed 03/30/2023) * COMPREHENSIVE METABOLIC PANEL(Performed 03/30/2023) * CBC W AUTO DIFFERENTIAL(Performed 03/30/2023) * COMPREHENSIVE METABOLIC PANEL(Performed 03/15/2023) * CBC W AUTO DIFFERENTIAL(Performed 03/15/2023) * CBC W AUTO DIFFERENTIAL(Performed 02/26/2023) Performed for History of ileal conduit * BASIC METABOLIC PANEL (CALCIUM TOTAL)(Performed 02/26/2023) Performed for History of ileal conduit * CBC W AUTO DIFFERENTIAL(Performed 02/25/2023) Performed for History of ileal conduit * BASIC METABOLIC PANEL (CALCIUM TOTAL)(Performed 02/25/2023) Performed for History of ileal conduit * CBC W AUTO DIFFERENTIAL(Performed 02/24/2023) Performed for History of ileal conduit * BASIC METABOLIC PANEL (CALCIUM TOTAL)(Performed 02/24/2023) Performed for History of ileal conduit * GLUCOSE - POINT OF CARE(Performed 02/23/2023) * CULTURE BLOOD(Performed 02/23/2023) * CULTURE BLOOD(Performed 02/23/2023) * XR CHEST 1VW PORTABLE(Performed 02/23/2023) Performed for History of ileal conduit * URINALYSIS REFLEX TO MICROSCOPIC NO CULTURE(Performed 02/23/2023) * CULTURE URINE(Performed 02/23/2023) * CBC W AUTO DIFFERENTIAL(Performed 02/23/2023) Performed for History of ileal conduit * BASIC METABOLIC PANEL (CALCIUM TOTAL)(Performed 02/23/2023) Performed for History of ileal conduit * CBC W AUTO DIFFERENTIAL(Performed 02/22/2023) Performed for History of ileal conduit * BASIC METABOLIC PANEL (CALCIUM TOTAL)(Performed 02/22/2023) Performed for History of ileal conduit * PREPARE RBC LEUKOREDUCED UNIT(Performed 02/22/2023) * CBC W AUTO DIFFERENTIAL(Performed 02/21/2023) Performed for History of ileal conduit * BASIC METABOLIC PANEL (CALCIUM TOTAL)(Performed 02/21/2023) Performed for History of ileal conduit * CBC W AUTO DIFFERENTIAL(Performed 02/20/2023) Performed for History of ileal conduit * BASIC METABOLIC PANEL (CALCIUM TOTAL)(Performed 02/20/2023) Performed for History of ileal conduit * OT EVAL AND TREAT(Performed 02/19/2023) * CBC W AUTO DIFFERENTIAL(Performed 02/19/2023) Performed for History of ileal conduit * BASIC METABOLIC PANEL (CALCIUM TOTAL)(Performed 02/19/2023) Performed for History of ileal conduit * ENDOTRACHEAL TUBE NOTE(Performed 02/18/2023) * REVISION UROSTOMY(Performed 02/18/2023) Performed for Hernia of ureteroileal conduit stoma (HCC) * TYPE + SCREEN PANEL(Performed 02/18/2023) * CARDIAC EKG ORDER(Performed 02/11/2023) * BASIC METABOLIC PANEL (CALCIUM TOTAL)(Performed 02/11/2023) * CBC W/O DIFFERENTIAL(Performed 02/11/2023) * BASIC METABOLIC PANEL (CALCIUM TOTAL)(Performed 02/11/2023) * MAGNESIUM BLOOD(Performed 02/11/2023) * PHOSPHORUS BLOOD(Performed 02/11/2023) * OT EVAL AND TREAT(Performed 02/10/2023) * US RETROPERITONEAL COMPLETE(Performed 02/10/2023) Performed for Renal cyst * CBC W/O DIFFERENTIAL(Performed 02/10/2023) * BASIC METABOLIC PANEL (CALCIUM TOTAL)(Performed 02/10/2023) * MAGNESIUM BLOOD(Performed 02/10/2023) * PHOSPHORUS BLOOD(Performed 02/10/2023) * LIPASE BLOOD(Performed 02/09/2023) Performed for Nausea and vomiting, unspecified vomiting type * CBC W/O DIFFERENTIAL(Performed 02/09/2023) * BASIC METABOLIC PANEL (CALCIUM TOTAL)(Performed 02/09/2023) * MAGNESIUM BLOOD(Performed 02/09/2023) * PHOSPHORUS BLOOD(Performed 02/09/2023) * CULTURE URINE(Performed 02/08/2023) * TROPONIN-I HIGH SENSITIVE REFLEX 1HOUR(Performed 02/08/2023) * URINE MICROSCOPIC ONLY REFLEX TO CULTURE(Performed 02/08/2023) * URINALYSIS REFLEX MICROSCOPIC REFLEX CULTURE(Performed 02/08/2023) * CULTURE URINE(Performed 02/08/2023) * TROPONIN-I HIGH SENSITIVE BASELINE + 1HR(Performed 02/08/2023) * CT ABDOMEN PELVIS W CONTRAST(Performed 02/08/2023) Performed for Abdominal pain, generalized * LIPASE BLOOD(Performed 02/08/2023) * COMPREHENSIVE METABOLIC PANEL(Performed 02/08/2023) * CBC W AUTO DIFFERENTIAL(Performed 02/08/2023) * TYPE + SCREEN PANEL(Performed 01/28/2023) Performed for Pre-op evaluation * BASIC METABOLIC PANEL (CALCIUM TOTAL)(Performed 01/28/2023) Performed for Hernia of ureteroileal conduit stoma (HCC), Pre-op testing * CBC W AUTO DIFFERENTIAL(Performed 01/28/2023) Performed for Hernia of ureteroileal conduit stoma (HCC), Pre-op testing * CULTURE URINE(Performed 01/28/2023) Performed for Hernia of ureteroileal conduit stoma (HCC), Pre-op testing * CARDIAC EKG ORDER(Performed 09/17/2022) * CT ABDOMEN PELVIS W CONTRAST(Performed 09/12/2022) Performed for Neurogenic bladder * COMPREHENSIVE METABOLIC PANEL(Performed 09/12/2022) Performed for Neurogenic bladder * CBC W/O DIFFERENTIAL(Performed 09/12/2022) Performed for Neurogenic bladder * PHOSPHORUS BLOOD(Performed 09/12/2022) Performed for Neurogenic bladder * MAGNESIUM BLOOD(Performed 09/12/2022) Performed for Neurogenic bladder * PHOSPHORUS BLOOD(Performed 09/10/2022) Performed for Neurogenic bladder * MAGNESIUM BLOOD(Performed 09/10/2022) Performed for Neurogenic bladder * COMPREHENSIVE METABOLIC PANEL(Performed 09/10/2022) Performed for Neurogenic bladder * CBC W/O DIFFERENTIAL(Performed 09/10/2022) Performed for Neurogenic bladder * CREATININE BODY FLUID(Performed 09/10/2022) * PHOSPHORUS BLOOD(Performed 09/09/2022) Performed for Neurogenic bladder * MAGNESIUM BLOOD(Performed 09/09/2022) Performed for Neurogenic bladder * COMPREHENSIVE METABOLIC PANEL(Performed 09/09/2022) Performed for Neurogenic bladder * CBC W/O DIFFERENTIAL(Performed 09/09/2022) Performed for Neurogenic bladder * CULTURE BLOOD(Performed 09/09/2022) * MAGNESIUM BLOOD(Performed 09/09/2022) Performed for Neurogenic bladder * COMPREHENSIVE METABOLIC PANEL(Performed 09/09/2022) Performed for Neurogenic bladder * CBC W/O DIFFERENTIAL(Performed 09/09/2022) Performed for Neurogenic bladder * CULTURE BLOOD(Performed 09/09/2022) * URINALYSIS REFLEX TO MICROSCOPIC NO CULTURE(Performed 09/08/2022) * CULTURE URINE(Performed 09/08/2022) * XR CHEST 1VW PORTABLE(Performed 09/08/2022) Performed for Neurogenic bladder * PHOSPHORUS BLOOD(Performed 09/08/2022) Performed for Neurogenic bladder * MAGNESIUM BLOOD(Performed 09/08/2022) Performed for Neurogenic bladder * PHOSPHORUS BLOOD(Performed 09/07/2022) Performed for Neurogenic bladder * COMPREHENSIVE METABOLIC PANEL(Performed 09/07/2022) Performed for Neurogenic bladder * CBC W/O DIFFERENTIAL(Performed 09/07/2022) Performed for Neurogenic bladder * PHOSPHORUS BLOOD(Performed 09/07/2022) Performed for Neurogenic bladder * MAGNESIUM BLOOD(Performed 09/07/2022) Performed for Neurogenic bladder * COMPREHENSIVE METABOLIC PANEL(Performed 09/07/2022) Performed for Neurogenic bladder * CBC W/O DIFFERENTIAL(Performed 09/07/2022) Performed for Neurogenic bladder * PREPARE RBC LEUKOREDUCED UNIT(Performed 09/07/2022) Performed for Neurogenic bladder * PREPARE RBC LEUKOREDUCED UNIT(Performed 09/07/2022) Performed for Anxiety * PREPARE RBC LEUKOREDUCED UNIT(Performed 09/07/2022) Performed for Neurogenic bladder * GLUCOSE - POINT OF CARE(Performed 09/06/2022) * PHOSPHORUS BLOOD(Performed 09/05/2022) Performed for Neurogenic bladder * MAGNESIUM BLOOD(Performed 09/05/2022) Performed for Neurogenic bladder * COMPREHENSIVE METABOLIC PANEL(Performed 09/05/2022) Performed for Neurogenic bladder * CBC W/O DIFFERENTIAL(Performed 09/05/2022) Performed for Neurogenic bladder * CBC W AUTO DIFFERENTIAL(Performed 09/05/2022) Performed for Neurogenic bladder * PHOSPHORUS BLOOD(Performed 09/04/2022) Performed for Neurogenic bladder * MAGNESIUM BLOOD(Performed 09/04/2022) Performed for Neurogenic bladder * COMPREHENSIVE METABOLIC PANEL(Performed 09/04/2022) Performed for Neurogenic bladder * CBC W/O DIFFERENTIAL(Performed 09/04/2022) Performed for Neurogenic bladder * CBC W AUTO DIFFERENTIAL(Performed 09/04/2022) Performed for Neurogenic bladder * CBC W AUTO DIFFERENTIAL(Performed 09/04/2022) Performed for Neurogenic bladder * TRANSFUSE RED BLOOD CELL LEUKOREDUCED UNIT(S)(Performed 09/04/2022) * PREPARE RBC LEUKOREDUCED UNIT(Performed 09/04/2022) Performed for Neurogenic bladder * CBC W AUTO DIFFERENTIAL(Performed 09/04/2022) Performed for Neurogenic bladder * PTT SLH(Performed 09/04/2022) Performed for Neurogenic bladder * PT-INR SLH(Performed 09/04/2022) Performed for Neurogenic bladder * FIBRINOGEN ACTIVITY(Performed 09/04/2022) Performed for Neurogenic bladder * TEG 6S PLATELET MAPPING(Performed 09/04/2022) Performed for Neurogenic bladder * TEG 6 GLOBAL HEMOSTASIS W/ LYSIS(Performed 09/04/2022) Performed for Neurogenic bladder * TRANSFUSE RED BLOOD CELL LEUKOREDUCED UNIT(S)(Performed 09/04/2022) * PREPARE RBC LEUKOREDUCED UNIT(Performed 09/04/2022) * EKG 12-LEAD(Performed 09/04/2022) Performed for Neurogenic bladder, Urge incontinence, Bladder pain, Continuous leakage of urine, Recurrent UTI * LACTIC ACID BLOOD(Performed 09/04/2022) * BASIC METABOLIC PANEL (CALCIUM TOTAL)(Performed 09/04/2022) * CBC W/O DIFFERENTIAL(Performed 09/04/2022) * PHOSPHORUS BLOOD(Performed 09/04/2022) Performed for Neurogenic bladder * MAGNESIUM BLOOD(Performed 09/04/2022) Performed for Neurogenic bladder * COMPREHENSIVE METABOLIC PANEL(Performed 09/04/2022) Performed for Neurogenic bladder * CBC W/O DIFFERENTIAL(Performed 09/04/2022) Performed for Neurogenic bladder * CBC W AUTO DIFFERENTIAL(Performed 09/03/2022) Performed for Neurogenic bladder * BASIC METABOLIC PANEL (CALCIUM TOTAL)(Performed 09/03/2022) Performed for Neurogenic bladder * PT EVAL AND TREAT(Performed 09/03/2022) Performed for Neurogenic bladder * OT EVAL AND TREAT(Performed 09/03/2022) Performed for Neurogenic bladder * BLOOD GAS+COOX+LYTES+METAB ARTERIAL POCT(Performed 09/03/2022) * BLOOD GAS+COOX+LYTES+METAB ARTERIAL POCT(Performed 09/03/2022) * BLOOD GAS ART+LYTES+METAB+COOX POC NOTIF(Performed 09/03/2022) Performed for Neurogenic bladder * CULTURE AFB+SMEAR(Performed 09/03/2022) * CULTURE FUNGUS OTHER+FUNGUS SMEAR(Performed 09/03/2022) * CULTURE TISSUE+GRAM STAIN(Performed 09/03/2022) * CULTURE ANAEROBE(Performed 09/03/2022) * CULTURE AFB+SMEAR(Performed 09/03/2022) * CULTURE FUNGUS OTHER+FUNGUS SMEAR(Performed 09/03/2022) * CULTURE ANAEROBE(Performed 09/03/2022) * CULTURE WOUND+GRAM STAIN(Performed 09/03/2022) * BLOOD GAS+COOX+LYTES+METAB ARTERIAL POCT(Performed 09/03/2022) * BLOOD GAS+COOX+LYTES+METAB ARTERIAL POCT(Performed 09/03/2022) * PATHOLOGY TISSUE(Performed 09/03/2022) Performed for Neurogenic bladder, Urge incontinence, Bladder pain, Continuous leakage of urine, Recurrent UTI * BLOOD GAS+COOX+LYTES+METAB ARTERIAL POCT(Performed 09/03/2022) * BLOOD GAS ART+LYTES+METAB+COOX POC NOTIF(Performed 09/03/2022) Performed for Neurogenic bladder * BLOOD GAS+COOX+LYTES+METAB ARTERIAL POCT(Performed 09/03/2022) * BLOOD GAS+COOX+LYTES+METAB ARTERIAL POCT(Performed 09/03/2022) * BLOOD GAS+COOX+LYTES+METAB ARTERIAL POCT(Performed 09/03/2022) * BLOOD GAS+COOX+LYTES+METAB ARTERIAL POCT(Performed 09/03/2022) * BLOOD GAS ART+LYTES+METAB+COOX POC NOTIF(Performed 09/03/2022) Performed for Neurogenic bladder * PERIPHERAL IV NOTE(Performed 09/03/2022) * ENDOTRACHEAL TUBE NOTE(Performed 09/03/2022) * MT REMV BLADDER,ILEAL CONDUIT(Performed 09/03/2022) Performed for Neurogenic bladder, Urge incontinence, Bladder pain, Continuous leakage of urine, Recurrent UTI * ARTERIAL LINE NOTE(Performed 09/03/2022) * TYPE + SCREEN PANEL(Performed 09/03/2022) Performed for Pre-op exam * CULTURE URINE(Performed 08/20/2022) Performed for Neurogenic bladder, Continuous leakage of urine, Pre-op testing * TYPE + SCREEN PANEL(Performed 08/20/2022) Performed for Pre-op evaluation * BASIC METABOLIC PANEL (CALCIUM TOTAL)(Performed 08/20/2022) Performed for Neurogenic bladder, Continuous leakage of urine, Pre-op testing * CBC W AUTO DIFFERENTIAL(Performed 08/20/2022) Performed for Neurogenic bladder, Continuous leakage of urine, Pre-op testing * EKG 12-LEAD(Performed 08/20/2022) Performed for Pre-op evaluation * CT RENAL STONE(Performed 05/29/2022) Performed for Bladder pain * CULTURE URINE(Performed 05/10/2022) Performed for Urinary tract infection without hematuria, site unspecified * XR ANKLE LEFT 3VW OR MORE(Performed 04/05/2022) Performed for Left foot pain * XR FOOT LEFT 3VW OR MORE(Performed 04/05/2022) Performed for Left foot pain * CARDIAC RHYTHM STRIP ORDER(Performed 02/07/2022) * CULTURE URINE(Performed 02/05/2022) Performed for Diagnosis unknown * INSERTION CATHETER SUPRAPUBIC(Performed 02/05/2022) * MT CYSTOSCOPY CHEMODENERVATION(Performed 02/05/2022) * CULTURE URINE(Performed 11/15/2021) Performed for Urinary tract infection with hematuria, site unspecified * URINALYSIS AUTO - POINT OF CARE (AMB) STL(Performed 10/29/2021) Performed for Neurogenic bladder, Urinary tract infection with hematuria, site unspecified * FERRITIN(Performed 10/24/2021) Performed for Iron metabolism disorder * POLYSOMNOGRAPHY 4 OR MORE PARAMETERS WITH CPAP(Performed 09/03/2021) Performed for Suspected sleep apnea, Restless legs syndrome (RLS), YAJAIRA (obstructive sleep apnea), Malaise and fatigue, Hypoxia, Hypertensive emergency without congestive heart failure, Primary hypertension, Hypersomnia * MT CYSTOSCOPY CHEMODENERVATION(Performed 06/13/2021) Performed for Neurogenic bladder, Urge incontinence * BASIC METABOLIC PANEL (CALCIUM TOTAL)(Performed 06/13/2021) Performed for Intractable low back pain * LAB RESULTS ORDER(Performed 06/06/2021) * CBC W AUTO DIFFERENTIAL(Performed 05/13/2021) * URINE MICROSCOPIC ONLY REFLEX TO CULTURE(Performed 05/13/2021) * URINALYSIS REFLEX MICROSCOPIC REFLEX CULTURE(Performed 05/13/2021) * COMPREHENSIVE METABOLIC PANEL(Performed 05/13/2021) * CULTURE URINE(Performed 05/13/2021) * URINE MICROSCOPIC ONLY REFLEX TO CULTURE(Performed 04/14/2021) Performed for High compliance bladder * URINALYSIS REFLEX MICROSCOPIC REFLEX CULTURE(Performed 04/14/2021) Performed for High compliance bladder * CULTURE URINE(Performed 04/14/2021) Performed for High compliance bladder * CARDIAC EKG ORDER(Performed 02/21/2021) * CYTOLOGY NON-SALES AND PRODUCTION MANAGER PANEL (STL)(Performed 02/21/2021) Performed for Cyst and pseudocyst of pancreas (HCC) * ESOPHAGOGASTRODUODENOSCOPY (EGD) /ESOPHAGOSCOPY WITH ULTRASOUND (EUS) (Performed 02/21/2021) Performed for Pancreatic cyst (HCC) * POTASSIUM WHOLE BLD(Performed 02/21/2021) Performed for Hypokalemia * ENDOSCOPIC ULTRASONOGRAPHY, GI(Performed 02/21/2021) * EKG 12-LEAD(Performed 02/16/2021) Performed for Pre-op evaluation * HEMOGLOBIN A1C(Performed 02/01/2021) Performed for Pancreatic cyst (HCC) * URINE MICROSCOPIC ONLY REFLEX TO CULTURE(Performed 01/31/2021) Performed for Neurogenic dysfunction of the urinary bladder * URINALYSIS REFLEX MICROSCOPIC REFLEX CULTURE(Performed 01/31/2021) Performed for Neurogenic dysfunction of the urinary bladder * CULTURE URINE(Performed 01/31/2021) Performed for Neurogenic dysfunction of the urinary bladder * CT ABDOMEN PELVIS W CONTRAST(Performed 12/27/2020) Performed for Abdominal pain, generalized * SLIDE SCAN HEMATOLOGY(Performed 12/27/2020) * URINE MICROSCOPIC ONLY REFLEX TO CULTURE(Performed 12/27/2020) * URINALYSIS REFLEX MICROSCOPIC REFLEX CULTURE(Performed 12/27/2020) * COMPREHENSIVE METABOLIC PANEL(Performed 12/27/2020) * CBC W AUTO DIFFERENTIAL(Performed 12/27/2020) * MT CYSTOSCOPY CHEMODENERVATION(Performed 12/25/2020) Performed for Overactive bladder, Urge incontinence * LARYNGEAL MASK [employer](Performed 12/25/2020) * CT ABDOMEN PELVIS W CONTRAST(Performed 12/20/2020) Performed for Abdominal pain, generalized * URINE MICROSCOPIC ONLY REFLEX TO CULTURE(Performed 12/20/2020) * URINALYSIS REFLEX MICROSCOPIC REFLEX CULTURE(Performed 12/20/2020) * CULTURE URINE(Performed 12/20/2020) * COMPREHENSIVE METABOLIC PANEL(Performed 12/19/2020) * CBC W AUTO DIFFERENTIAL(Performed 12/19/2020) * URINE MICROSCOPIC ONLY REFLEX TO CULTURE(Performed 12/13/2020) Performed for Other constipation * URINALYSIS REFLEX MICROSCOPIC REFLEX CULTURE(Performed 12/13/2020) Performed for Other constipation * CULTURE URINE(Performed 12/13/2020) Performed for Other constipation * LIPASE BLOOD(Performed 12/12/2020) * COMPREHENSIVE METABOLIC PANEL(Performed 12/12/2020) * CBC W AUTO DIFFERENTIAL(Performed 12/12/2020) * URINE MICROSCOPIC ONLY REFLEX TO CULTURE(Performed 11/22/2020) Performed for Neurogenic dysfunction of the urinary bladder, Cystostomy care ([facility]) * URINALYSIS REFLEX MICROSCOPIC REFLEX CULTURE(Performed 11/22/2020) Performed for Neurogenic dysfunction of the urinary bladder, Cystostomy care (HCC) * CULTURE URINE(Performed 11/22/2020) Performed for Dysuria * MT ANAL/URINARY MUSCLE STUDY(Performed 10/20/2020) Performed for Neurogenic bladder * MT CYSTOMETROGRAM W/ENVIRONMENTAL REMEDIATION SPECIALIST(Performed 10/20/2020) Performed for Neurogenic bladder * CARDIAC RHYTHM STRIP ORDER(Performed 08/17/2020) * POTASSIUM BLOOD(Performed 08/14/2020) Performed for Preop examination * INSERTION CATHETER SUPRAPUBIC(Performed 08/14/2020) Performed for Diagnosis unknown * URINE MICROSCOPIC ONLY REFLEX TO CULTURE(Performed 08/14/2020) Performed for Preop examination * URINALYSIS REFLEX MICROSCOPIC REFLEX CULTURE(Performed 08/14/2020) Performed for Preop examination * CULTURE URINE(Performed 08/14/2020) Performed for Preop examination * SARS-COV-2 (COVID-19) IN HOUSE(Performed 08/11/2020) Performed for Encounter for preoperative screening laboratory testing for COVID- 19 virus * SARS-COV-2 (COVID-19) IN HOUSE(Performed 08/07/2020) Performed for Pre-op testing * CT ABDOMEN PELVIS W CONTRAST(Performed 08/01/2020) Performed for Hematuria, unspecified type * URINE MICROSCOPIC ONLY REFLEX TO CULTURE(Performed 08/01/2020) * URINALYSIS REFLEX MICROSCOPIC REFLEX CULTURE(Performed 08/01/2020) * CULTURE URINE(Performed 08/01/2020) * CBC W AUTO DIFFERENTIAL(Performed 08/01/2020) * COMPREHENSIVE METABOLIC PANEL(Performed 08/01/2020) * URINE MICROSCOPIC ONLY REFLEX TO CULTURE(Performed 07/31/2020) Performed for Abdominal pain, epigastric * URINALYSIS REFLEX MICROSCOPIC REFLEX CULTURE(Performed 07/31/2020) Performed for Abdominal pain, epigastric * LIPASE BLOOD(Performed 07/31/2020) Performed for Abdominal pain, epigastric * AMYLASE BLOOD(Performed 07/31/2020) Performed for Abdominal pain, epigastric * CBC W AUTO DIFFERENTIAL(Performed 07/31/2020) Performed for Abdominal pain, epigastric * COMPREHENSIVE METABOLIC PANEL(Performed 07/31/2020) Performed for Abdominal pain, epigastric * CULTURE URINE(Performed 07/31/2020) Performed for Abdominal pain, epigastric * US RETROPERITONEAL COMPLETE(Performed 07/27/2020) Performed for Reflex neurogenic bladder * MAGNESIUM BLOOD(Performed 05/11/2020) Performed for Abdominal pain, generalized * CBC W AUTO DIFFERENTIAL(Performed 05/11/2020) Performed for Abdominal pain, generalized * COMPREHENSIVE METABOLIC PANEL(Performed 05/11/2020) Performed for Abdominal pain, generalized * URINE MICROSCOPIC ONLY REFLEX TO CULTURE(Performed 05/11/2020) * URINALYSIS REFLEX MICROSCOPIC REFLEX CULTURE(Performed 05/11/2020) * CULTURE URINE(Performed 05/11/2020) * FL LOWER GI WATER SOLUBLE(Performed 05/10/2020) Performed for Abdominal pain, generalized, Other constipation * BASIC METABOLIC PANEL (CALCIUM TOTAL)(Performed 05/10/2020) Performed for Abdominal pain, generalized * CT ABDOMEN PELVIS W CONTRAST(Performed 05/09/2020) Performed for Abdominal pain, generalized * LIPASE BLOOD(Performed 05/09/2020) * MAGNESIUM BLOOD(Performed 05/09/2020) * COMPREHENSIVE METABOLIC PANEL(Performed 05/09/2020) * CBC W AUTO DIFFERENTIAL(Performed 05/09/2020) * CARDIAC RHYTHM STRIP ORDER(Performed 04/18/2020) * URINALYSIS REFLEX MICROSCOPIC REFLEX CULTURE(Performed 04/11/2020) Performed for Diagnosis unknown * CULTURE URINE(Performed 04/11/2020) Performed for Diagnosis unknown * URINE MICROSCOPIC ONLY REFLEX TO CULTURE(Performed 04/11/2020) Performed for Diagnosis unknown * INSERTION CATHETER SUPRAPUBIC(Performed 04/11/2020) * MT CYSTOSCOPY CHEMODENERVATION(Performed 04/11/2020) * SARS-COV-2 (COVID-19) IN HOUSE(Performed 04/08/2020) Performed for Pre-op testing * SARS-COV2 (COVID-19) PANEL (STL)(Performed 04/08/2020) Performed for Pre-op testing * CARDIAC EKG ORDER(Performed 04/07/2020) * EKG 12-LEAD(Performed 04/06/2020) Performed for Abdominal pain, generalized * LACTIC ACID BLOOD(Performed 04/06/2020) * LIPASE BLOOD(Performed 04/06/2020) * COMPREHENSIVE METABOLIC PANEL(Performed 04/06/2020) * CBC W AUTO DIFFERENTIAL(Performed 04/06/2020) * CARDIAC RHYTHM STRIP ORDER(Performed 03/24/2020) * XR ABD OBSTRUCTION SERIES 2VW(Performed 03/23/2020) Performed for Abdominal pain, generalized, Constipation, unspecified constipation type * BASIC METABOLIC PANEL (CALCIUM TOTAL)(Performed 03/21/2020) * MAGNESIUM BLOOD(Performed 03/20/2020) * BASIC METABOLIC PANEL (CALCIUM TOTAL)(Performed 03/20/2020) * CT ABDOMEN PELVIS W CONTRAST(Performed 03/19/2020) Performed for Abdominal pain, generalized * MAGNESIUM BLOOD(Performed 03/19/2020) * LIPASE BLOOD(Performed 03/19/2020) * LACTIC ACID BLOOD(Performed 03/19/2020) * COMPREHENSIVE METABOLIC PANEL(Performed 03/19/2020) * CBC W AUTO DIFFERENTIAL(Performed 03/19/2020) * CULTURE URINE(Performed 03/15/2020) Performed for Urinary tract infection without hematuria, site unspecified * AMBULATORY REFERRAL TO SLEEP SPECIALIST(Performed 02/16/2020) Performed for Sleep apnea, unspecified type * FERRITIN(Performed 02/16/2020) Performed for Restless legs syndrome (RLS), Low ferritin level * URINE MICROSCOPIC ONLY REFLEX TO CULTURE(Performed 02/11/2020) * URINALYSIS REFLEX MICROSCOPIC REFLEX CULTURE(Performed 02/11/2020) * CULTURE URINE(Performed 02/11/2020) * URINE MICROSCOPIC ONLY REFLEX TO CULTURE(Performed 02/11/2020) * URINALYSIS REFLEX MICROSCOPIC REFLEX CULTURE(Performed 02/11/2020) * LACTIC ACID BLOOD(Performed 02/11/2020) * COMPREHENSIVE METABOLIC PANEL(Performed 02/11/2020) * CBC W AUTO DIFFERENTIAL(Performed 02/11/2020) * CULTURE URINE(Performed 02/11/2020) * CARDIAC EKG ORDER(Performed 01/31/2020) * BASIC METABOLIC PANEL (CALCIUM TOTAL)(Performed 01/29/2020) Performed for Hypokalemia * BASIC METABOLIC PANEL (CALCIUM TOTAL)(Performed 01/29/2020) Performed for Hypokalemia * TROPONIN I(Performed 01/29/2020) * URINE MICROSCOPIC ONLY REFLEX TO CULTURE(Performed 01/28/2020) * URINALYSIS REFLEX MICROSCOPIC REFLEX CULTURE(Performed 01/28/2020) * CULTURE URINE(Performed 01/28/2020) * TROPONIN I(Performed 01/28/2020) * EKG 12-LEAD(Performed 01/28/2020) Performed for Dizziness, Hypotensive episode * CT ABDOMEN PELVIS W CONTRAST(Performed 01/28/2020) Performed for Abdominal pain, generalized * TROPONIN I(Performed 01/28/2020) * LACTIC ACID BLOOD(Performed 01/28/2020) * COMPREHENSIVE METABOLIC PANEL(Performed 01/28/2020) * CBC W AUTO DIFFERENTIAL(Performed 01/28/2020) * XR CHEST 1VW PORTABLE(Performed 01/28/2020) Performed for Dizziness, Hypotensive episode * CT HEAD WO CONTRAST(Performed 01/28/2020) Performed for Acute nonintractable headache, unspecified headache type * ENDOSCOPY, COLON, SCREENING(Performed 11/29/2019) * CARDIAC RHYTHM STRIP ORDER(Performed 10/08/2019) * CULTURE URINE(Performed 10/07/2019) Performed for Diagnosis unknown * INSERTION CATHETER SUPRAPUBIC(Performed 10/07/2019) Performed for N31.9 * MT CYSTOSCOPY CHEMODENERVATION(Performed 10/07/2019) Performed for N31.9 * BASIC METABOLIC PANEL (CALCIUM TOTAL)(Performed 09/15/2019) * CBC W AUTO DIFFERENTIAL(Performed 09/15/2019) * BASIC METABOLIC PANEL (CALCIUM TOTAL)(Performed 09/14/2019) * DIFFERENTIAL MANUAL(Performed 09/14/2019) * BASIC METABOLIC PANEL (CALCIUM TOTAL)(Performed 09/14/2019) * CBC W AUTO DIFFERENTIAL(Performed 09/14/2019) * CT ABDOMEN PELVIS W CONTRAST(Performed 09/13/2019) Performed for Abdominal pain, right lower quadrant * C DIFFICILE BY PCR(Performed 09/13/2019) * C DIFFICILE GDH AG + TOXIN A+B(Performed 09/13/2019) * DIFFERENTIAL MANUAL(Performed 09/12/2019) * BASIC METABOLIC PANEL (CALCIUM TOTAL)(Performed 09/12/2019) * CBC W AUTO DIFFERENTIAL(Performed 09/12/2019) * BASIC METABOLIC PANEL (CALCIUM TOTAL)(Performed 09/11/2019) * CBC W AUTO DIFFERENTIAL(Performed 09/11/2019) * BASIC METABOLIC PANEL (CALCIUM TOTAL)(Performed 09/10/2019) * CBC W AUTO DIFFERENTIAL(Performed 09/10/2019) * RESPIRATORY PATHOGEN PANEL BY PCR(Performed 09/09/2019) * XR CHEST 1VW PORTABLE(Performed 09/09/2019) Performed for Aspiration pneumonia of both lower lobes, unspecified aspiration pneumonia type (HCC) * LACTIC ACID BLOOD(Performed 09/09/2019) * CT ABDOMEN PELVIS W CONTRAST(Performed 09/08/2019) Performed for Abdominal pain, right lower quadrant * URINE MICROSCOPIC ONLY REFLEX TO CULTURE(Performed 09/08/2019) * URINALYSIS REFLEX MICROSCOPIC REFLEX CULTURE(Performed 09/08/2019) * CULTURE URINE(Performed 09/08/2019) * MAGNESIUM BLOOD(Performed 09/08/2019) * LACTIC ACID BLOOD(Performed 09/08/2019) * COMPREHENSIVE METABOLIC PANEL(Performed 09/08/2019) * CBC W AUTO DIFFERENTIAL(Performed 09/08/2019) * CULTURE BLOOD(Performed 09/08/2019) * CULTURE BLOOD(Performed 09/08/2019) * CULTURE URINE(Performed 09/03/2019) Performed for Urinary tract infection without hematuria, site unspecified * CARDIAC RHYTHM STRIP ORDER(Performed 08/31/2019) * BASIC METABOLIC PANEL (CALCIUM TOTAL)(Performed 08/30/2019) Performed for Hypokalemia * BASIC METABOLIC PANEL (CALCIUM TOTAL)(Performed 08/28/2019) Performed for Hypokalemia * COMPREHENSIVE METABOLIC PANEL(Performed 08/27/2019) Performed for Hypokalemia * CBC W/O DIFFERENTIAL(Performed 08/27/2019) Performed for Abdominal pain, generalized * CULTURE VRE(Performed 08/27/2019) Performed for Hypokalemia * CULTURE MRSA(Performed 08/27/2019) Performed for Hypokalemia * CULTURE MRSA(Performed 08/27/2019) Performed for Hypokalemia * BASIC METABOLIC PANEL (CALCIUM TOTAL)(Performed 08/26/2019) Performed for Hypokalemia * CULTURE BLOOD(Performed 08/26/2019) * EKG 12-LEAD(Performed 08/26/2019) Performed for Hypokalemia * URINE MICROSCOPIC ONLY REFLEX TO CULTURE(Performed 08/26/2019) * URINALYSIS REFLEX MICROSCOPIC REFLEX CULTURE(Performed 08/26/2019) * CULTURE URINE(Performed 08/26/2019) * MAGNESIUM BLOOD(Performed 08/26/2019) * LIPASE BLOOD(Performed 08/26/2019) * CBC W AUTO DIFFERENTIAL(Performed 08/26/2019) * COMPREHENSIVE METABOLIC PANEL(Performed 08/26/2019) * CULTURE BLOOD(Performed 08/26/2019) * CARDIAC RHYTHM STRIP ORDER(Performed 08/24/2019) * CARDIAC EKG ORDER(Performed 08/23/2019) * MAGNESIUM BLOOD(Performed 08/19/2019) * COMPREHENSIVE METABOLIC PANEL(Performed 08/19/2019) * CBC W AUTO DIFFERENTIAL(Performed 08/19/2019) * CULTURE VRE(Performed 08/18/2019) * CULTURE MRSA(Performed 08/18/2019) * CULTURE MRSA(Performed 08/18/2019) * LACTIC ACID BLOOD(Performed 08/18/2019) * PHOSPHORUS BLOOD(Performed 08/18/2019) * MAGNESIUM BLOOD(Performed 08/18/2019) * COMPREHENSIVE METABOLIC PANEL(Performed 08/18/2019) * CBC W AUTO DIFFERENTIAL(Performed 08/18/2019) * PROCALCITONIN LEVEL(Performed 08/17/2019) * LACTIC ACID BLOOD(Performed 08/17/2019) * CULTURE BLOOD(Performed 08/17/2019) * URINE DRUG SCREEN IMMUNOASSAY(Performed 08/17/2019) * LACTIC ACID BLOOD(Performed 08/17/2019) * EKG 12-LEAD(Performed 08/17/2019) Performed for Abdominal pain, generalized * CT HEAD WO CONTRAST(Performed 08/17/2019) Performed for Disorientation * URINE MICROSCOPIC ONLY REFLEX TO CULTURE(Performed 08/17/2019) * URINALYSIS REFLEX MICROSCOPIC REFLEX CULTURE(Performed 08/17/2019) * C-REACTIVE PROTEIN(Performed 08/17/2019) * TROPONIN I(Performed 08/17/2019) * COMPREHENSIVE METABOLIC PANEL(Performed 08/17/2019) * CT ABDOMEN PELVIS W CONTRAST(Performed 08/17/2019) Performed for Abdominal pain, generalized * XR CHEST 1VW PORTABLE(Performed 08/17/2019) Performed for Abdominal pain, generalized * TROPONIN I(Performed 08/17/2019) * PT-INR(Performed 08/17/2019) * MAGNESIUM BLOOD(Performed 08/17/2019) * LIPASE BLOOD(Performed 08/17/2019) * LACTIC ACID BLOOD(Performed 08/17/2019) * D-DIMER(Performed 08/17/2019) * CBC W AUTO DIFFERENTIAL(Performed 08/17/2019) * CULTURE BLOOD(Performed 08/17/2019) * EKG 12-LEAD(Performed 08/17/2019) Performed for Other chest pain * EKG 12-LEAD(Performed 08/17/2019) Performed for Tachycardia * ED CRITICAL CARE(Performed 08/17/2019) * CARDIAC EKG ORDER(Performed 08/16/2019) * C DIFFICILE GDH AG + TOXIN A+B(Performed 08/11/2019) Performed for Abdominal pain, epigastric * PHOSPHORUS BLOOD(Performed 08/11/2019) Performed for Abdominal pain, generalized * MAGNESIUM BLOOD(Performed 08/11/2019) Performed for Abdominal pain, generalized * BASIC METABOLIC PANEL (CALCIUM TOTAL)(Performed 08/11/2019) Performed for Abdominal pain, generalized * CBC W AUTO DIFFERENTIAL(Performed 08/11/2019) Performed for Abdominal pain, generalized * CULTURE VRE(Performed 08/10/2019) Performed for History of lumbar spinal fusion * CULTURE MRSA(Performed 08/10/2019) Performed for History of lumbar spinal fusion * CULTURE MRSA(Performed 08/10/2019) Performed for History of lumbar spinal fusion * COMPREHENSIVE METABOLIC PANEL(Performed 08/10/2019) Performed for Abdominal pain, generalized * CBC W AUTO DIFFERENTIAL(Performed 08/10/2019) Performed for Abdominal pain, generalized * CULTURE STOOL+ E COLI SHIGA-LIKE TOXIN(Performed 08/09/2019) Performed for Diarrhea of presumed infectious origin * CARDIAC EKG ORDER(Performed 08/09/2019) * URINE DRUG SCREEN IMMUNOASSAY(Performed 08/09/2019) * CARDIAC RHYTHM STRIP ORDER(Performed 08/09/2019) * CT ABDOMEN PELVIS W CONTRAST(Performed 08/09/2019) Performed for Tachycardia, Abdominal pain, generalized, Hematuria, unspecified type, Nausea and vomiting, intractability of vomiting not specified, unspecified vomiting type * URINE MICROSCOPIC ONLY REFLEX TO CULTURE(Performed 08/09/2019) * URINALYSIS REFLEX MICROSCOPIC REFLEX CULTURE(Performed 08/09/2019) * CULTURE URINE(Performed 08/09/2019) * TROPONIN I(Performed 08/09/2019) * LIPASE BLOOD(Performed 08/09/2019) * COMPREHENSIVE METABOLIC PANEL(Performed 08/09/2019) * CBC W AUTO DIFFERENTIAL(Performed 08/09/2019) * COMPREHENSIVE METABOLIC PANEL(Performed 08/05/2019) * CBC W AUTO DIFFERENTIAL(Performed 08/05/2019) * LACTIC ACID BLOOD(Performed 08/05/2019) * COMPREHENSIVE METABOLIC PANEL(Performed 08/04/2019) * CBC W AUTO DIFFERENTIAL(Performed 08/04/2019) * LACTIC ACID BLOOD(Performed 08/04/2019) * ENDOSCOPY, COLON, SCREENING(Performed 08/03/2019) * PATHOLOGY TISSUE EXAM (STL)(Performed 08/03/2019) Performed for Generalized abdominal pain, Anemia, unspecified type, Constipation, unspecified constipation type * EGD(Performed 08/03/2019) * MT EGD LESION ABLATION(Performed 08/03/2019) * MT EGD FLEX TRANSORAL W BX SNGL OR MULT(Performed 08/03/2019) * MT COLONOSCOPY, DIAGNOSTIC(Performed 08/03/2019) * MT ED EGD FLEX TRANSORAL DX(Performed 08/03/2019) * COMPREHENSIVE METABOLIC PANEL(Performed 08/03/2019) * CBC W AUTO DIFFERENTIAL(Performed 08/03/2019) * LACTIC ACID BLOOD(Performed 08/03/2019) * US RETROPERITONEAL COMPLETE(Performed 08/02/2019) Performed for Abdominal pain, generalized * US ABDOMEN LIMITED(Performed 08/02/2019) Performed for Idiopathic acute pancreatitis without infection or necrosis (HCC) * COMPREHENSIVE METABOLIC PANEL(Performed 08/02/2019) * CBC W AUTO DIFFERENTIAL(Performed 08/02/2019) * LACTIC ACID BLOOD(Performed 08/02/2019) * CT ABDOMEN PELVIS W CONTRAST(Performed 08/01/2019) Performed for Idiopathic acute pancreatitis without infection or necrosis (HCC) * EKG 12-LEAD(Performed 08/01/2019) Performed for Hypokalemia * LDH BLOOD(Performed 08/01/2019) * LIPID PROFILE(Performed 08/01/2019) * LIPASE BLOOD(Performed 08/01/2019) * COMPREHENSIVE METABOLIC PANEL(Performed 08/01/2019) * CBC W AUTO DIFFERENTIAL(Performed 08/01/2019) * LACTIC ACID BLOOD(Performed 08/01/2019) * LIPASE BLOOD(Performed 07/31/2019) * COMPREHENSIVE METABOLIC PANEL(Performed 07/31/2019) * CBC W AUTO DIFFERENTIAL(Performed 07/31/2019) * LACTIC ACID BLOOD(Performed 07/31/2019) * NM MYOCARD PERF REST STRESS(Performed 07/30/2019) Performed for Troponin level elevated, Chest pain, unspecified type * STRESS TEST LEXISCAN (NUCLEAR)(Performed 07/30/2019) Performed for Troponin level elevated, Chest pain, unspecified type * BASIC METABOLIC PANEL (CALCIUM TOTAL)(Performed 07/30/2019) * CBC W AUTO DIFFERENTIAL(Performed 07/30/2019) * LACTIC ACID BLOOD(Performed 07/30/2019) * CULTURE VRE(Performed 07/29/2019) * CULTURE MRSA(Performed 07/29/2019) * CULTURE MRSA(Performed 07/29/2019) * BASIC METABOLIC PANEL (CALCIUM TOTAL)(Performed 07/29/2019) * TROPONIN I(Performed 07/29/2019) * BASIC METABOLIC PANEL (CALCIUM TOTAL)(Performed 07/29/2019) * MAGNESIUM BLOOD(Performed 07/29/2019) * TROPONIN I(Performed 07/29/2019) * LACTIC ACID BLOOD(Performed 07/29/2019) * CT ABDOMEN PELVIS W CONTRAST(Performed 07/29/2019) Performed for Abdominal pain, generalized * LACTIC ACID BLOOD(Performed 07/29/2019) * CULTURE BLOOD(Performed 07/29/2019) * URINE MICROSCOPIC ONLY REFLEX TO CULTURE(Performed 07/29/2019) * URINALYSIS REFLEX MICROSCOPIC REFLEX CULTURE(Performed 07/29/2019) * HCG URINE QUALITATIVE(Performed 07/29/2019) * TROPONIN I(Performed 07/29/2019) * PT-INR(Performed 07/29/2019) * LACTIC ACID BLOOD(Performed 07/29/2019) * LIPASE BLOOD(Performed 07/29/2019) * COMPREHENSIVE METABOLIC PANEL(Performed 07/29/2019) * CBC W AUTO DIFFERENTIAL(Performed 07/29/2019) * CULTURE BLOOD(Performed 07/29/2019) * EKG 12-LEAD(Performed 07/28/2019) Performed for Abdominal pain, generalized * CBC W/O DIFFERENTIAL(Performed 05/20/2019) * BASIC METABOLIC PANEL (CALCIUM TOTAL)(Performed 05/20/2019) * CBC W/O DIFFERENTIAL(Performed 05/17/2019) * BASIC METABOLIC PANEL (CALCIUM TOTAL)(Performed 05/17/2019) * URINE MICROSCOPIC ONLY REFLEX TO CULTURE(Performed 05/14/2019) * URINALYSIS REFLEX MICROSCOPIC REFLEX CULTURE(Performed 05/14/2019) * CULTURE URINE(Performed 05/14/2019) * CBC W/O DIFFERENTIAL(Performed 05/13/2019) * BASIC METABOLIC PANEL (CALCIUM TOTAL)(Performed 05/13/2019) * BASIC METABOLIC PANEL (CALCIUM TOTAL)(Performed 05/10/2019) * CBC W/O DIFFERENTIAL(Performed 05/10/2019) * CT HEAD WO CONTRAST(Performed 05/09/2019) * TROPONIN I(Performed 05/09/2019) * COMPREHENSIVE METABOLIC PANEL(Performed 05/09/2019) * CBC W AUTO DIFFERENTIAL(Performed 05/09/2019) * INFLUENZA A+B ANTIGEN RAPID(Performed 05/09/2019) * CBC W/O DIFFERENTIAL(Performed 05/06/2019) * BASIC METABOLIC PANEL (CALCIUM TOTAL)(Performed 05/06/2019) * CBC W/O DIFFERENTIAL(Performed 05/04/2019) * BASIC METABOLIC PANEL (CALCIUM TOTAL)(Performed 05/03/2019) * XR ANKLE RIGHT 3VW OR MORE(Performed 05/02/2019) Performed for Pain * URINALYSIS REFLEX MICROSCOPIC REFLEX CULTURE(Performed 05/01/2019) * CBC W/O DIFFERENTIAL(Performed 04/29/2019) * BASIC METABOLIC PANEL (CALCIUM TOTAL)(Performed 04/29/2019) * CBC W/O DIFFERENTIAL(Performed 04/26/2019) * BASIC METABOLIC PANEL (CALCIUM TOTAL)(Performed 04/26/2019) * URINE MICROSCOPIC ONLY REFLEX TO CULTURE(Performed 04/25/2019) * URINALYSIS REFLEX MICROSCOPIC REFLEX CULTURE(Performed 04/25/2019) * CULTURE URINE(Performed 04/25/2019) * CBC W/O DIFFERENTIAL(Performed 04/22/2019) * BASIC METABOLIC PANEL (CALCIUM TOTAL)(Performed 04/22/2019) * XR LUMBAR SPINE 2 OR 3VW(Performed 04/21/2019) * XR CHEST 1VW PORTABLE(Performed 04/20/2019) * CARDIAC EKG ORDER(Performed 04/20/2019) * CARDIAC EKG ORDER(Performed 04/20/2019) * CARDIAC RHYTHM STRIP ORDER(Performed 04/19/2019) * VITAMIN D 25-HYDROXY(Performed 04/19/2019) * CBC W/O DIFFERENTIAL(Performed 04/19/2019) * BASIC METABOLIC PANEL (CALCIUM TOTAL)(Performed 04/19/2019) * CBC W/O DIFFERENTIAL(Performed 04/18/2019) * BASIC METABOLIC PANEL (CALCIUM TOTAL)(Performed 04/18/2019) * URINE MICROSCOPIC ONLY REFLEX TO CULTURE(Performed 04/18/2019) * URINALYSIS REFLEX MICROSCOPIC REFLEX CULTURE(Performed 04/18/2019) * CULTURE URINE(Performed 04/18/2019) * PT-INR(Performed 04/17/2019) Performed for Subarachnoid bleed (HCC) * PT-INR(Performed 04/16/2019) Performed for Subarachnoid bleed (HCC) * CT HEAD WO CONTRAST(Performed 04/15/2019) Performed for Subarachnoid bleed (HCC) * BASIC METABOLIC PANEL (CALCIUM TOTAL)(Performed 04/15/2019) Performed for Subarachnoid bleed (HCC) * PT-INR(Performed 04/15/2019) Performed for Subarachnoid bleed (HCC) * CBC W AUTO DIFFERENTIAL(Performed 04/15/2019) * CULTURE VRE(Performed 04/14/2019) Performed for Subarachnoid bleed (HCC) * CULTURE MRSA(Performed 04/14/2019) Performed for Subarachnoid bleed (HCC) * CULTURE MRSA(Performed 04/14/2019) Performed for Subarachnoid bleed (HCC) * BASIC METABOLIC PANEL (CALCIUM TOTAL)(Performed 04/14/2019) Performed for Subarachnoid bleed (HCC) * PT-INR(Performed 04/14/2019) Performed for Subarachnoid bleed (HCC) * CBC W AUTO DIFFERENTIAL(Performed 04/14/2019) * TROPONIN I(Performed 04/14/2019) * CARDIAC RHYTHM STRIP ORDER(Performed 04/13/2019) * GLUCOSE - POINT OF CARE(Performed 04/13/2019) * TROPONIN I(Performed 04/13/2019) * HEMOGLOBIN A1C(Performed 04/13/2019) Performed for Subarachnoid bleed (HCC) * URINE MICROSCOPIC ONLY REFLEX TO CULTURE(Performed 04/13/2019) * URINALYSIS REFLEX MICROSCOPIC REFLEX CULTURE(Performed 04/13/2019) * CULTURE URINE(Performed 04/13/2019) * GLUCOSE - POINT OF CARE(Performed 04/13/2019) * B-TYPE NATRIURETIC PEPTIDE(Performed 04/13/2019) * TROPONIN I(Performed 04/13/2019) * CT ANGIO BRAIN NECK STROKE(Performed 04/13/2019) Performed for Subarachnoid bleed (HCC) * TROPONIN I(Performed 04/13/2019) * PT PTT PANEL(Performed 04/13/2019) * COMPREHENSIVE METABOLIC PANEL(Performed 04/13/2019) * CBC W AUTO DIFFERENTIAL(Performed 04/13/2019) * ED CRITICAL CARE(Performed 04/13/2019) * EKG 12-LEAD(Performed 04/13/2019) Performed for General weakness * CT HEAD WO CONTRAST(Performed 04/13/2019) Performed for Lethargy * GLUCOSE - POINT OF CARE(Performed 04/12/2019) * GLUCOSE - POINT OF CARE(Performed 04/12/2019) * CBC W AUTO DIFFERENTIAL(Performed 04/12/2019) * GLUCOSE - POINT OF CARE(Performed 04/11/2019) * GLUCOSE - POINT OF CARE(Performed 04/11/2019) * GLUCOSE - POINT OF CARE(Performed 04/11/2019) * GLUCOSE - POINT OF CARE(Performed 04/11/2019) * CBC W AUTO DIFFERENTIAL(Performed 04/11/2019) * GLUCOSE - POINT OF CARE(Performed 04/10/2019) * GLUCOSE - POINT OF CARE(Performed 04/10/2019) * GLUCOSE - POINT OF CARE(Performed 04/10/2019) * BASIC METABOLIC PANEL (CALCIUM TOTAL)(Performed 04/10/2019) * CBC W AUTO DIFFERENTIAL(Performed 04/10/2019) * GLUCOSE - POINT OF CARE(Performed 04/10/2019) * GLUCOSE - POINT OF CARE(Performed 04/09/2019) * PTT(Performed 04/09/2019) * GLUCOSE - POINT OF CARE(Performed 04/09/2019) * PT PTT PANEL(Performed 04/09/2019) * CBC W AUTO DIFFERENTIAL(Performed 04/09/2019) * GLUCOSE - POINT OF CARE(Performed 04/08/2019) * PTT(Performed 04/08/2019) * GLUCOSE - POINT OF CARE(Performed 04/08/2019) * GLUCOSE - POINT OF CARE(Performed 04/08/2019) * GLUCOSE - POINT OF CARE(Performed 04/08/2019) * PTT(Performed 04/08/2019) * PT PTT PANEL(Performed 04/08/2019) * CBC W AUTO DIFFERENTIAL(Performed 04/08/2019) * BASIC METABOLIC PANEL (CALCIUM TOTAL)(Performed 04/08/2019) * GLUCOSE - POINT OF CARE(Performed 04/07/2019) * PTT(Performed 04/07/2019) * GLUCOSE - POINT OF CARE(Performed 04/07/2019) * XR ABDOMEN KUB(Performed 04/07/2019) Performed for Chest pain, unspecified type * PT PTT PANEL(Performed 04/07/2019) * CBC W AUTO DIFFERENTIAL(Performed 04/07/2019) * GLUCOSE - POINT OF CARE(Performed 04/07/2019) * GLUCOSE - POINT OF CARE(Performed 04/07/2019) * SLIDE SCAN HEMATOLOGY(Performed 04/07/2019) * CBC W AUTO DIFFERENTIAL(Performed 04/07/2019) * BASIC METABOLIC PANEL (CALCIUM TOTAL)(Performed 04/07/2019) * GLUCOSE - POINT OF CARE(Performed 04/06/2019) * CARDIAC EKG ORDER(Performed 04/06/2019) * GLUCOSE - POINT OF CARE(Performed 04/06/2019) * GLUCOSE - POINT OF CARE(Performed 04/06/2019) * VAS LEFT VENOUS DUPLEX UE(Performed 04/06/2019) Performed for Chest pain, unspecified type * GLUCOSE - POINT OF CARE(Performed 04/06/2019) * GLUCOSE - POINT OF CARE(Performed 04/06/2019) * GLUCOSE - POINT OF CARE(Performed 04/05/2019) * GLUCOSE - POINT OF CARE(Performed 04/05/2019) * IR SPINAL ANGIOGRAM(Performed 04/05/2019) Performed for Pain, Intractable low back pain * HEMOGLOBIN A1C(Performed 04/05/2019) * CBC W AUTO DIFFERENTIAL(Performed 04/05/2019) * BASIC METABOLIC PANEL (CALCIUM TOTAL)(Performed 04/05/2019) * VANCOMYCIN LEVEL RANDOM(Performed 04/04/2019) * BASIC METABOLIC PANEL (CALCIUM TOTAL)(Performed 04/04/2019) * CBC W AUTO DIFFERENTIAL(Performed 04/04/2019) * IR IVC FILTER PLACEMENT(Performed 04/03/2019) Performed for Other acute pulmonary embolism without acute cor pulmonale (HCC) * VAS BILATERAL VENOUS DUPLEX LE(Performed 04/03/2019) Performed for Other acute pulmonary embolism without acute cor pulmonale (HCC) * FL DEBORA SURGERY(Performed 04/02/2019) Performed for Pain * TYPE + SCREEN PANEL(Performed 04/02/2019) * LAMINECTOMY/DECOMPRESSION LUMBAR(Performed 04/02/2019) * PREPARE RBC LEUKOREDUCED UNIT(Performed 04/02/2019) Performed for Paraplegia (HCC) * CT LUMBAR SPINE W CONTRAST(Performed 04/02/2019) Performed for Status post myelogram * CT THORACIC SPINE W CONTRAST(Performed 04/02/2019) Performed for Status post myelogram * CT CERVICAL SPINE W CONTRAST(Performed 04/02/2019) Performed for Status post myelogram * FL MYELOGRAM 2 OR MORE REGIONS(Performed 04/02/2019) Performed for Paraplegia (HCC) * CULTURE BLOOD(Performed 04/02/2019) * CULTURE BLOOD(Performed 04/02/2019) * BLOOD TYPE VERIFICATION(Performed 04/02/2019) * BASIC METABOLIC PANEL (CALCIUM TOTAL)(Performed 04/02/2019) * CBC W AUTO DIFFERENTIAL(Performed 04/02/2019) * COMPREHENSIVE METABOLIC PANEL(Performed 04/02/2019) * US ABDOMEN LIMITED(Performed 04/01/2019) Performed for Pancreatitis, unspecified pancreatitis type (HCC) * CBC W AUTO DIFFERENTIAL(Performed 04/01/2019) * BASIC METABOLIC PANEL (CALCIUM TOTAL)(Performed 04/01/2019) * LACTIC ACID BLOOD(Performed 03/31/2019) * LACTIC ACID BLOOD(Performed 03/31/2019) * TROPONIN I(Performed 03/31/2019) * CULTURE BLOOD(Performed 03/31/2019) * CT RENAL STONE(Performed 03/31/2019) Performed for Chest pain, unspecified type, Abdominal pain, epigastric * LACTIC ACID BLOOD POC VENOUS(Performed 03/31/2019) * TROPONIN I(Performed 03/31/2019) * CULTURE BLOOD(Performed 03/31/2019) * CT ANGIO CHEST PULM EMBOLISM(Performed 03/31/2019) Performed for Chest pain, unspecified type * D-DIMER(Performed 03/31/2019) * LIPASE BLOOD(Performed 03/31/2019) * COMPREHENSIVE METABOLIC PANEL(Performed 03/31/2019) * CBC W AUTO DIFFERENTIAL(Performed 03/31/2019) * TROPONIN I(Performed 03/31/2019) * ED CRITICAL CARE(Performed 03/31/2019) * EKG 12-LEAD(Performed 03/31/2019) Performed for Chest pain, unspecified type, Abdominal pain, epigastric, Pulmonary embolism, unspecified chronicity, unspecified pulmonary embolism type, unspecified whether acute cor pulmonale present (HCC), Pancreatitis, unspecified pancreatitis type (HCC) * FL GUIDED NEEDLE PLACEMENT(Performed 03/25/2019) Performed for Intractable low back pain * CT SACROILIAC JOINT BILAT INJECT(Performed 03/23/2019) Performed for Sacroiliitis (HCC) * FL MYELOGRAM LUMBAR(Performed 03/22/2019) Performed for Severe low back pain * CT LUMBAR SPINE W CONTRAST(Performed 03/22/2019) Performed for Severe low back pain, History of lumbar spinal fusion, Intractable low back pain * GLUCOSE - POINT OF CARE(Performed 03/21/2019) * CBC W AUTO DIFFERENTIAL(Performed 03/21/2019) Performed for Severe low back pain * BASIC METABOLIC PANEL (CALCIUM TOTAL)(Performed 03/21/2019) Performed for Severe low back pain * COMPREHENSIVE METABOLIC PANEL(Performed 03/20/2019) * CBC W AUTO DIFFERENTIAL(Performed 03/20/2019) * CT LUMBAR SPINE WO CONTRAST(Performed 03/20/2019) Performed for Severe low back pain, History of lumbar spinal fusion * XR LUMBAR SPINE 2 OR 3VW(Performed 03/20/2019) Performed for Severe low back pain, History of lumbar spinal fusion * CT LUMBAR SPINE WO CONTRAST(Performed 11/30/2018) Performed for Pain of right hip joint, Sciatica of right side * XR LUMBAR SPINE 2 OR 3VW(Performed 11/30/2018) Performed for Sciatica of right side * CT HIP RIGHT WO CONTRAST(Performed 11/30/2018) Performed for Pain of right hip joint * CT CERVICAL SPINE WO CONTRAST(Performed 08/25/2018) Performed for Neck pain, Fall, subsequent encounter * CT HEAD WO CONTRAST(Performed 08/25/2018) Performed for Neck pain, Fall, subsequent encounter * XR CLAVICLE RIGHT 2VW(Performed 08/25/2018) Performed for Neck pain, Fall, subsequent encounter * CT CERVICAL SPINE WO CONTRAST(Performed 04/30/2018) Performed for Fall, initial encounter * CT HEAD WO CONTRAST(Performed 04/30/2018) Performed for Fall, initial encounter * XR PELVIS W RIGHT HIP 2VW(Performed 04/30/2018) Performed for Fall, initial encounter * XR LUMBAR SPINE 2 OR 3VW(Performed 04/30/2018) Performed for Fall, initial encounter * XR KNEE RIGHT 4VW OR MORE(Performed 04/30/2018) Performed for Fall, initial encounter * XR ANKLE RIGHT 3VW OR MORE(Performed 04/30/2018) Performed for Fall, initial encounter * CT ABDOMEN PELVIS W CONTRAST(Performed 02/04/2018) Performed for Left groin pain * COMPREHENSIVE METABOLIC PANEL(Performed 02/04/2018) * CBC W AUTO DIFFERENTIAL(Performed 02/04/2018) * MAMMO BILAT SCREENING(Performed 09/18/2017) Performed for Encounter for screening for malignant neoplasm of breast * VITAMIN D 25-HYDROXY(Performed 08/20/2017) Performed for Fatigue, unspecified type * TSH(Performed 08/20/2017) Performed for Hyperlipidemia, unspecified hyperlipidemia type * COMPREHENSIVE METABOLIC PANEL(Performed 08/20/2017) Performed for Essential hypertension * LIPID PROFILE(Performed 08/20/2017) Performed for Hyperlipidemia, unspecified hyperlipidemia type * INFLUENZA A+B - POINT OF CARE (AMB)(Performed 05/16/2016) Performed for Acute lower respiratory infection * STREP A SCREEN - POINT OF CARE (AMB) STL(Performed 05/16/2016) Performed for Acute lower respiratory infection * MRI CERVICAL SPINE WO CONTRAST(Performed 12/20/2014) Performed for DDD (degenerative disc disease), cervical * XR CERVICAL SPINE 4 OR 5VW(Performed 12/12/2014) Performed for Neck pain, acute * MRI LUMBAR SPINE WWO CONTRAST(Performed 10/04/2014) Performed for Lumbago * URINALYSIS REFLEX MICROSCOPIC REFLEX CULTURE(Performed 05/31/2014) * XR CHEST 1VW PORTABLE(Performed 05/31/2014) Performed for SOB (shortness of breath) * COMPREHENSIVE METABOLIC PANEL(Performed 05/31/2014) * CBC W AUTO DIFFERENTIAL(Performed 05/31/2014) * EKG 12-LEAD(Performed 05/31/2014) Performed for SOB (shortness of breath) * DERMATOPATHOLOGY(Performed 09/10/2013) * XR LUMBAR SPINE 2 OR 3VW(Performed 04/06/2013) Performed for Low back pain radiating to right leg * CARDIAC EKG ORDER(Performed 07/29/2012) * CT HEAD WO CONTRAST(Performed 07/10/2012) Performed for Headache * XR CHEST 1VW PORTABLE(Performed 07/10/2012) Performed for Chest Pain * CARDIAC MARKER PANEL(Performed 07/10/2012) * COMPREHENSIVE METABOLIC PANEL(Performed 07/10/2012) * CBC W AUTO DIFFERENTIAL(Performed 07/10/2012) * EKG 12-LEAD(Performed 07/10/2012) Performed for Chest Pain * URINALYSIS REFLEX MICROSCOPIC REFLEX CULTURE(Performed 10/13/2011) * CULTURE URINE(Performed 10/13/2011) * XR LUMBAR SPINE 2 OR 3VW(Performed 10/13/2011) Performed for Backache, unspecified * CT ANGIO CHEST(Performed 03/04/2009) Performed for SOB (Shortness of Breath) * US ADDITIONAL IMAGING(Performed 03/03/2009) Performed for Cough, Weakness, Bronchitis, Fall * US LOWER EXT BILAT VENOUS DOPPL(Performed 03/03/2009) Performed for Cough, Weakness, Bronchitis, Fall * CT CHEST W CONTRAST(Performed 03/03/2009) Performed for Cough, Weakness, Bronchitis, Fall * BLOOD GASES ARTERIAL(Performed 03/02/2009) * XR CHEST 2VW(Performed 03/02/2009) * COMPREHENSIVE METABOLIC PANEL(Performed 03/02/2009) * CBC W AUTO DIFFERENTIAL(Performed 03/02/2009) * INFLUENZA A+B ANTIGEN RAPID(Performed 03/02/2009) * CT THORACIC SPINE WO CONTRAST(Performed 01/15/2009) Performed for Fall * CT LUMBAR SPINE WO CONTRAST(Performed 01/15/2009) Performed for Fall * CT CERVICAL SPINE WO CONTRAST(Performed 01/15/2009) Performed for Fall * CT HEAD WO CONTRAST(Performed 01/15/2009) Performed for Fall * XR CHEST 1VW PORTABLE(Performed 01/14/2009) Performed for Fall * XR PELVIS 1 OR 2VW(Performed 01/14/2009) Performed for Fall * BASIC METABOLIC PANEL (CALCIUM TOTAL)(Performed 01/14/2009) * ALCOHOL ETHYL BLOOD(Performed 01/14/2009) * EKG 12-LEAD(Performed 02/19/2007) * GROSS + MICRO EXAM(Performed 11/02/2001) * GROSS + MICRO EXAM(Performed 07/17/2000) Results * POLYSOMNOGRAM WITH CPAP IF INDICATED (08/06/2023 11:59 PM SUPERVISOR POWER REACTOR) Narrative Cresencio Ghosh MD - 08/06/2023 11:59 PM SUPERVISOR POWER REACTOR Cresencio Ghosh MD ? 08/14/2023 ??5:01 PM [facility] [place]? s Accredited by the [place] [employer] DIAGNOSTIC POLYSOMNOGRAPHY REPORT PATIENT NAME: Angelina Moya DATE OF : 1965 study Date: 08/05/2023 DATE OF INTERPRETATION: August 14, 2023 Referring Physician: Cresencio Ghosh MD cLINICAL iNDICATIONS: Symptoms suggestive of sleep apnea based on snoring, witnessed apnea and hypersomnia. ??Previous diagnostic study showed no significant sleep apnea? s. [place] Sleepiness Score of 15/24.The patient is a 57 year old Female who is 5' 8 and weighs 192.0 lbs. Her BMI equals 29.4. Polysomnogram Data: Overnight location and measurement technician attended polysomnography was carried out utilizing continuous digital monitoring at the [facility]. Montage included measurements of EEG (electroencephalography), EOG (electro-oculography), EMG (electromyography), EKG, nasal and oral airflow (PTAF and thermistor), respiratory effort (abdominal and rib care movement RIP belts), oxygen saturation, snoring sounds, body position, video monitoring and limb movements. All data was visually scored and analyzed by standard criteria. All events are scored according to the current AASM criteria IA. Hypopneas have a 30% reduction in air flow signals with a ?3% oxygen desaturation from pre-event baseline or the event is associated with an arousal. IB Hypopneas have a 30% reduction in air flow signal with a ?4% oxygen desaturation from pre-event baseline. FINDINGS: Sleep Architecture: Lights out: 08:59:27 PM ?Lights On: 05:00:09 AM The total recording time of the polysomnogram was 480.7 minutes. The total sleep time was 407.5 minutes, total sleep time supine was 403.5 minutes. Sleep latency was 4.2 minutes with a sleep efficiency of 84.8% which is normal. Total number of arousals were 66 with an arousal index of 9.7 per hour. Sleep Stages: N1 Sleep: 5.8% N2 Sleep: 27.4% N3 Sleep: 63.1% REM Sleep: 3.8% REM latency is 388.0 minutes Respiratory Monitoring: The polysomnogram revealed a presence of 4 Apnea events (2 obstructive, 2 central, and - mixed apneas). There were 32 1B Hypopneas resulting in a CMS 1B AHI of 5.3 events per hour. REM and Supine Index were 23.2 and 5.4 per hour of sleep with non-supine index of 0 per hour. ?? There were 34 1A Hypopneas events scored, for an AASM 1A AHI of 5.3. REM and Supine Index were 23.2 and 5.4 per hour of sleep with non-supine index of 0 per hour. ?? Based on these findings the patient has mild obstructive Sleep Apnea (YAJAIRA) with loud snoring noted in the study. Oxygen Data: Oxygen desaturation did occur to as low as 82.0%, with a mean oxygen saturation of 93.7%. It was associated with respiratory events. Oxygen saturation remained ?88% for 1.1 minutes. Movement Events: Periodic Limb Movements were present with an index of 57.6 per hour with an arousal index of 0.1 per hour. Cardiac Monitoring: ?? No significant arrhythmias were detected during the sleep study. The average pulse rate while asleep was 73 bpm. Unusual behavior during sleep: None IMPRESSION: Patient with mild sleep apnea worse during REM and supine sleep and sleep related hypoxemia based on AHI of 5.3 per hour using 1A and 1B rules. ??Patient spent 1.1 minutes of diagnostic sleep time with saturation below 89%. Patient did not meet the split night criteria for initiation of CPAP therapy on the same night due to lack of TST and the events occurring in the later part of the night with inadequate time left for titration. Study showed very frequent PLMD with rare sleep arousal related to leg movement. DIAGNOSIS Obstructive Sleep Apnea ? (G47.33) ? PLMD ?(G47.61) RECOMMENDATIONS: Patient should be assessed and treated for sleep disordered breathing with positive airway pressure therapy (PAP). Patient should be scheduled for a titration study to find out the optimum PAP pressure or given an in-home Auto CPAP trial in the range of 4-20 cm of H20. If clinically relevant, workup and treatment of PLMD recommended. Some other treatment options for patients with sleep apnea include weight reduction, dental appliances, positional therapy and correction of upper airways. This should be individualized based on the patient's characteristics, symptoms and co-morbidities. But none as effective as CPAP with increasing severity of sleep disordered breathing. Patient should be advised against driving or operating heavy equipment if they have symptoms of excessive day time sleepiness. Regular sleep wake cycle and adequate hours of sleep is recommended. I have personally reviewed the entire raw data on the overnight PSG including the patient questionnaire, location and measurement technician notes and all associated tabulated data. FOLLOW UP: My office will call the patient and arrange for follow up. Cresencio Ghosh MD [facility] Diplomat of the [place] [employer] Board certified in Sleep Medicine Cresencio Ghosh MD SLEEP CENTER ORDERAB LES * (ABNORMAL) CULTURE URINE (05/08/2023 8:50 AM SUPERVISOR POWER REACTOR) Only the most recent of36 resultswithin the time period is included. Culture Urine >100,000 CFU/mL Enterobacter cloacae complex(A) KASSY 05/10/2023 12:54 AM [facility] Comment:Isolate is multi dione g resistant organism (MDRO). Culture Urine 10,000-50,000 CFU/mL urogenital maliha KASSY 05/10/2023 12:54 AM [facility] Urine URINE SPECIMEN OBTAINED BY CLEAN CATCH PROCEDURE / Unknown Collection / Unknown 05/08/2023 8:50 AM SUPERVISOR POWER REACTOR 05/08/2023 9:09 AM SUPERVISOR POWER REACTOR Narrative [facility] - 05/10/2023 12:54 AM SUPERVISOR POWER REACTOR This isolate is a multidrug resistant organism (MDRO). MDROs are resistant to 3 or more classes of antibiotics. Contact Precautions required. Infectious Diseases consult recommended. Enterobacter, Citrobacter, Serratia, and Klebsiella (formerly Enterobacter) aerogenes may develop resistance during prolonged therapy with third-generation cephalosporins as a result of derepression of AmpC beta-lactamase. Therefore, isolates that are initially susceptible may become resistant within 3 or 4 days after initiation of therapy. Testing of repeat isolates may be warranted. Organism Antibiotic Method Susceptibility Enterobacter cloacae complex Amikacin KASSY <=2 ug/mL: Susceptible Enterobacter cloacae complex Cefepime KASSY 4 ug/mL: Intermediate Enterobacter cloacae complex Ceftriaxone KASSY >=64 ug/mL: Resistant Enterobacter cloacae complex Ciprofloxacin KASSY 1 ug/mL: Resistant Enterobacter cloacae complex Gentamicin KASSY <=1 ug/mL: Susceptible Enterobacter cloacae complex Meropenem KASSY <=0.25 ug/mL: Susceptible Enterobacter cloacae complex Nitrofurantoin KASSY 128 ug/mL: Resistant Enterobacter cloacae complex Piperacillin-tazobactam KASSY 32 ug/mL: Intermediate Enterobacter cloacae complex Tobramycin KASSY <=1 ug/mL: Susceptible Enterobacter cloacae complex Trimethoprim-sulfamethoxazo le KASSY >=320 ug/mL: Resistant Nel Cerna LAB - MICROBIOLOGY ORDERABLES [facility] [address] [facility] [place] [address], [facility] [phone] * CARDIAC EKG ORDER (04/04/2023 3:01 PM CDT) Only the most recent of13 resultswithin the time period is included. Narrative 04/04/2023 3:01 PM CDT Ordered by an unspecified provider. Scanned Document CARDIAC SERVICES ORD ERABLES * (ABNORMAL) CBC W/O DIFFERENTIAL (04/02/2023 2:31 AM CDT) Only the most recent of28 resultswithin the time period is included. [facility] WBC 7.3 3.5 - 10.5 10? 3 /uL 04/02/2023 2:43 AM CDT [facility] RBC 4.23 3.80 - 5.20 10? 6 /uL 04/02/2023 2:43 AM CDT [facility] Hemoglobin 11.2(L) 12.0 - 15.6 g/dL 04/02/2023 2:43 AM CDT [facility] Hematocrit 35.1 35.0 - 45.0 % 04/02/2023 2:43 AM [facility] MCV 83.0 80.7 - 98.3 fL 04/02/2023 2:43 AM [facility] MCH 26.5(L) 26.7 - 34.0 pg 04/02/2023 2:43 AM [facility] MCHC 31.9 30.8 - 35.9 g/dL 04/02/2023 2:43 AM [facility] RDW-SD 46.5 36.0 - 50.0 fL 04/02/2023 2:43 AM [facility] RDW-CV 15.6(H) 11.2 - 14.8 % 04/02/2023 2:43 AM [facility] Platelet Count 219 150 - 400 10? 3 /uL 04/02/2023 2:43 AM [facility] MPV 9.8 9.4 - 12.9 fL 04/02/2023 2:43 AM [facility] nRBC Absolute 0.00 0 10? 3 /uL 04/02/2023 2:43 AM [facility] nRBC Auto 0.0 0 /100 WBC 04/02/2023 2:43 AM [facility] Blood BLOOD SPECIMEN / Unknown Lab Venipuncture / Unknown 04/02/2023 2:31 AM CDT 04/02/2023 2:39 AM CDT Missy Sutherland MD LAB - HEMATOLOGY ORD ERABLES Performing Organization Address [facility]/State/ZIP Co de Phone Number [address] [phone], [facility] [phone] * (ABNORMAL) BASIC METABOLIC PANEL (CALCIUM TOTAL) (04/02/2023 2:31 AM CDT) Only the most recent of60 resultswithin the time period is included. BUN 16 7 - 26 mg/dL 04/02/2023 3:07 AM [facility] Creatinine 0.69 0.56 - 0.96 mg/dL 04/02/2023 3:07 AM [facility] Sodium 133(L) 136 - 145 mmol/L 04/02/2023 3:07 AM [facility] Potassium 3.9 3.5 - 4.5 mmol/L 04/02/2023 3:07 AM [facility] Chloride 102 98 - 107 mmol/L 04/02/2023 3:07 AM [facility] CO2 26 22 - 29 mmol/L 04/02/2023 3:07 AM [facility] Glucose 122(H) 70 - 115 mg/dL 04/02/2023 3:07 AM [facility] Calcium 8.3(L) 8.4 - 10.2 mg/dL 04/02/2023 3:07 AM [facility] Anion Gap 5(L) 6 - 16 04/02/2023 3:07 AM [facility] BUN/Creatinine Ratio 23 7 - 23 04/02/2023 3:07 AM [facility] Osmolality Calculated 278 275 - 295 mOsm/kg 04/02/2023 3:07 AM [facility] eGFR by CKD-EPI >90 >=90 mL/min/1.7 3 m2 04/02/2023 3:07 AM [facility] Blood BLOOD SPECIMEN / Unknown Lab Venipuncture / Unknown 04/02/2023 2:31 AM CDT 04/02/2023 2:39 AM CDT Missy Sutherland MD LAB - CHEMISTRY [facility] Organization Address City/State/ZIP Co de Phone Number [facility] [address] [place] [phone], [facility] [phone] * PHOSPHORUS BLOOD (04/02/2023 2:31 AM CDT) Only the most recent of17 resultswithin the time period is included. Phosphorus 4.5 2.9 - 5.1 mg/dL 04/02/2023 3:07 AM [facility] Blood BLOOD SPECIMEN / Unknown Lab Venipuncture / Unknown 04/02/2023 2:31 AM CDT 04/02/2023 2:39 AM CDT Missy Sutherland MD LAB - CHEMISTRY [facility] Performing Organization Address [facility] Co de Phone Number [facility] [address] [place] [phone], [facility] [phone] * MAGNESIUM BLOOD (04/02/2023 2:31 AM CDT) Only the most recent of26 resultswithin the time period is included. Magnesium 1.9 1.6 - 2.6 mg/dL 04/02/2023 3:07 AM CDT [facility] Blood BLOOD SPECIMEN / Unknown Lab Venipuncture / Unknown 04/02/2023 2:31 AM CDT 04/02/2023 2:39 AM CDT Missy Sutherland MD LAB - CHEMISTRY [facility] Performing Organization Address [facility] de Phone Number [address] [phone], [facility] [phone] * EKG 12-LEAD (03/31/2023 9:32 PM CDT) Only the most recent of17 resultswithin the time period is included. Ventricular Rate 89 BPM [facility] Atrial Rate 89 BPM [facility] M[facility] P-R Interval 176 ms [facility] QRS Duration ms 86 ms [facility] MUSE Q-T Interval ms 380 ms [facility] MUSE QTC Calculation (Bezet) 462 ms [facility] Calculated P Reubens 41 degrees [facility]USE Calculated R Reubens 31 degrees [facility] Calculated T Reubens 47 degrees [facility] M[facility] Interpretation EKG NORMAL SINUS RHYTHM NORMAL ECG WHEN COMPARED WITH ECG OF 04-SEP-2022 09:01, PREMATURE VENTRICULAR COMPLEXES ARE NO LONGER PRESENT Confirmed by SARAH ATKINSON, SIGIFREDO ([id number]) on 04/03/2023 7:44:54 PM [facility] 03/31/2023 9:32 PM CDT 04/03/2023 7:44 PM CDT Lars Beverly MD ECG ORDERABLES Performing Organization Address [facility] Co de Phone Number [facility] * CT ABDOMEN PELVIS W CONTRAST (03/30/2023 4:06 PM CDT) Only the most recent of16 resultswithin the time period is included. Anatomical Region Laterality Modality Abdomen, Pelvis Computed Tomogra phy 03/30/2023 4:14 PM CDT Impressions 03/30/2023 10:35 PM CDT Impression: 1.Interval revision of the previously seen stoma with the conduit and up to the left upper quadrant of the abdomen. 2.There is new mild fat stranding seen in the mesentery at midline adjacent to the anastomosis sutures, likely postsurgical with mild dilation of the small bowel loop adjacent to this region, likely reactive. There is no evidence of bowel obstruction.. 3.There is no abscess or other signs of infection within this examination. > Dictated by Joaquín Bermudez MD, (residential program manager). I, Chris Coker MD have personally reviewed and interpreted this examination/study. > Interpreting Provider: Chris Coker MD on 03/30/2023 10:35 PM Narrative 03/30/2023 10:35 PM CDT PROCEDURE: ??CT ABDOMEN PELVIS W CONTRAST, DATE/TIME OF EXAM: ??03/30/2023 4:07 PM, LOCATION ??[facility] INDICATION: R10.32: Abdominal pain, left lower quadrant ADDITIONAL CLINICAL INFORMATION: Ordering Provider Reason For Exam: ??fever, abd pain, multiple urologic procedures Technologist Note: Additional: COMPARISON: CT abdomen pelvis 02/08/2023 TECHNIQUE: CT of the abdomen and pelvis was performed following the uneventful administration of 100 mL of Isovue 370 intravenous contrast according to standard protocol. Findings: Lower Chest: There is a granuloma in the left lower lobe. Liver: Normal. Gallbladder and Bile Ducts: The gallbladder is surgically absent. Spleen: Normal. Pancreas: Unchanged 1 cm hypoattenuating lesion within the pancreatic tail/body. The pancreatic duct in the body and head is dilated. Adrenals: Normal. Kidneys: Redemonstrated 1.7 cm hypoattenuating lesion in the left lower renal pole, shown to be a cyst on previous ultrasound. Gastrointestinal/Mesentery/Peritoneum: Demonstrate postsurgical changes in the bowel loops representing the ileal conduit, now status post revision and is seen in the left lower quadrant of abdomen. There is an associated small abdominal wall defect most region (series 3 image 85). There is [id number] fat stranding seen adjacent to the anastomosis at midline (series 3 image 98) with associated mild dilation of small bowel loop, likely reactive in nature. There is no evidence of bowel obstruction. Stool is seen throughout the colon. There is colonic diverticulosis without evidence of diverticulitis. There is no free intraperitoneal air. Reproductive Organs: The uterus is surgically absent. Vasculature: There is infrarenal IVC filter. There is atherosclerosis of the abdominal aorta and its branch vessels. Bones: Spinal inflated device over the left posterior flank. Extensive surgical hardware is seen in the left posterior lumbar spinal spinal fixation extending from L1 to L3 with bilateral rods and transpedicular screws.]] Soft tissues: Postsurgical changes of the conduit being otherwise internal to the left lower quadrant. There is mild amount of fat stranding seen in the anterior abdominal wall, likely postprocedural. Procedure Note Chris Coker MD - 03/30/2023 PROCEDURE: CT ABDOMEN PELVIS W CONTRAST, DATE/TIME OF EXAM: 03/30/2023 4:07 PM, LOCATION [facility] INDICATION: R10.32: Abdominal pain, left lower quadrant ADDITIONAL CLINICAL INFORMATION: Ordering Provider Reason For Exam: fever, abd pain, multiple urologic procedures Technologist Note: Additional: COMPARISON: CT abdomen pelvis 02/08/2023 TECHNIQUE: CT of the abdomen and pelvis was performed following the uneventful administration of 100 mL of Isovue 370 intravenous contrast according to standard protocol. Findings: Lower Chest: There is a granuloma in the left lower lobe. Liver: Normal. Gallbladder and Bile Ducts: The gallbladder is surgically absent. Spleen: Normal. Pancreas: Unchanged 1 cm hypoattenuating lesion within the pancreatic tail/body.The pancreatic duct in the body and head is dilated. Adrenals: Normal. Kidneys: Redemonstrated 1.7 cm hypoattenuating lesion in the left lower renalpole, shown to be a cyst on previous ultrasound. Gastrointestinal/Mesentery/Peritoneum: Demonstrate postsurgical changes in the bowel loops representing theileal conduit, now status post revision and is seen in the left lower quadrantof abdomen. There is an associated small abdominal wall defect most region (series 3 image 85). There is [id number] fat stranding seenadjacent to the anastomosis at midline (series 3 image 98) with associated mild dilation of small bowel loop, likely reactive in nature. There is no evidence of bowel obstruction. Stool is seen throughout the colon. Thereis colonic diverticulosis without evidence of diverticulitis. There is no free intraperitoneal air. Reproductive Organs: The uterus is surgically absent. Vasculature: There is infrarenal IVC filter. There is atherosclerosis of theabdominal aorta and its branch vessels. Bones: Spinal inflated device over the left posterior flank. Extensive surgical hardware is seen in the left posterior lumbar spinal spinal fixation extending from L1 to L3 with bilateral rods and transpedicular screws.]] Soft tissues: Postsurgical changes of the conduit being otherwise internal to the left lower quadrant. There is mild amount of fat stranding seen in theanterior abdominal wall, likely postprocedural. Impression: 1.Interval revision of the previously seen stoma with the conduit and upto the left upper quadrant of the abdomen. 2.There is new mild fat stranding seen in the mesentery at midlineadjacent to the anastomosis sutures, likely postsurgical with mild dilation ofthe small bowel loop adjacent to this region, likely reactive. There is no evidence of bowel obstruction.. 3.There is no abscess or other signs of infection within thisexamination. > Dictated by Joaquín Bermudez MD, (residential program manager). I, Chris Coker MD have personally reviewed and interpreted this examination/study. > Interpreting Provider: Chris Coker MD on 03/30/2023 10:35 PM Dari Lorenzana MD CT ORDERABLES * (ABNORMAL) URINALYSIS W/MICROSCOPIC NO CULTURE (03/30/2023 12:29 PM CDT) Color UA Yellow Straw, Yellow 03/30/2023 12:53 PM CDT [facility] Clarity UA Slt Cloudy(A) Clear 03/30/2023 12:53 PM CDT [facility] Specific [place]day UA 1.020 1.005 - 1.030 03/30/2023 12:53 PM CDT [facility] pH UA 6.0 5.0 - 8.0 pH 03/30/2023 12:53 PM CDT [facility] Protein UA Negative Negative 03/30/2023 12:53 PM CDT [facility] Glucose UA Negative Negative 03/30/2023 12:53 PM T [facility] Ketone UA Negative Negative 03/30/2023 12:53 PM [facility] Bilirubin UA Negative Negative 03/30/2023 12:53 PM [facility] Blood UA 2+(A) Negative 03/30/2023 12:53 PM T [facility] Nitrite UA Positive(A) Negative 03/30/2023 12:53 PM [facility] Leukocyte Esterase 1+(A) Negative 03/30/2023 12:53 PM T [facility] Urobilinogen UA Negative Negative mg/dL 03/30/2023 12:53 PM [facility] RBC UA 3-5 None Seen, 0-2, 3-5 /HPF 03/30/2023 12:53 PM [facility] WBC UA 11-20(A) None Seen, 0-5 /HPF 03/30/2023 12:53 PM [facility] Squamous Epithelial Cells UA 0-2 None Seen, 0-2, 3-5 /HPF 03/30/2023 12:53 PM [facility] Mucus UA 1+ /LPF 03/30/2023 12:53 PM [facility] Urine URINE SPECIMEN OBTAINED BY CLEAN CATCH PROCEDURE / Unknown Collection / Unknown 03/30/2023 12:29 PM CDT 03/30/2023 12:37 PM CDT Narrative [facility] - 03/30/2023 12:53 PM CDT Dari Lorenzana MD LAB - URINALYSIS ORD ERABLES [facility] [address] [place] [address], [facility] [phone] * (ABNORMAL) CBC W AUTO DIFFERENTIAL (03/30/2023 12:26 PM CDT) Only the most recent of73 resultswithin the time period is included. WBC 7.8 3.5 - 10.5 10? 3 /uL 03/30/2023 12:46 PM [facility] RBC 5.21(H) 3.80 - 5.20 10? 6 /uL 03/30/2023 12:46 PM [facility] Hemoglobin 13.7 12.0 - 15.6 g/dL 03/30/2023 12:46 PM [facility] Hematocrit 42.3 35.0 - 45.0 % 03/30/2023 12:46 PM [facility] MCV 81.2 80.7 - 98.3 fL 03/30/2023 12:46 PM [facility] MCH 26.3(L) 26.7 - 34.0 pg 03/30/2023 12:46 PM [facility] MCHC 32.4 30.8 - 35.9 g/dL 03/30/2023 12:46 PM [facility] RDW-SD 43.3 36.0 - 50.0 fL 03/30/2023 12:46 PM [facility] RDW-CV 14.8 11.2 - 14.8 % 03/30/2023 12:46 PM [facility] Platelet Count 224 150 - 400 10? 3 /uL 03/30/2023 12:46 PM [facility] MPV 9.6 9.4 - 12.9 fL 03/30/2023 12:46 PM [facility] nRBC Absolute 0.00 0 10? 3 /uL 03/30/2023 12:46 PM [facility] nRBC Auto 0.0 0 /100 WBC 03/30/2023 12:46 PM [facility] Neutrophils % 68.1 35.0 - 70.0 % 03/30/2023 12:46 PM [facility] Lymphocytes % 23.0 20.0 - 43.0 % 03/30/2023 12:46 PM [facility] Monocytes % 5.7 5.0 - 13.0 % 03/30/2023 12:46 PM [facility] Eosinophils % 2.1 0.0 - 6.0 % 03/30/2023 12:46 PM [facility] Basophil % 0.8 0.0 - 2.0 % 03/30/2023 12:46 PM [facility] Neutrophils Absolute 5.31 1.60 - 7.00 10? 3 /uL 03/30/2023 12:46 PM [facility] Lymphocyte Absolute 1.79 1.10 - 3.90 10? 3 /uL 03/30/2023 12:46 PM T [facility] Monocytes Absolute 0.44 0.26 - 1.07 10? 3 /uL 03/30/2023 12:46 PM [facility] Eosinophils Absolute 0.16 0.00 - 0.47 10? 3 /uL 03/30/2023 12:46 PM [facility] Basophils Absolute 0.06 0.00 - 0.08 10? 3 /uL 03/30/2023 12:46 PM [facility] Immature Granulocytes % 0.3 0.0 - 1.0 % 03/30/2023 12:46 PM [facility] Immature Granulocytes Absolute 0.02 03/30/2023 12:46 PM [facility] Blood BLOOD SPECIMEN / Unknown Venipuncture / Unknown 03/30/2023 12:26 PM CDT 03/30/2023 12:39 PM CDT Dari Lorenzana MD LAB - HEMATOLOGY ORD ERABLES [facility] [address] [place] [address], [facility] [phone] * (ABNORMAL) COMPREHENSIVE METABOLIC PANEL (03/30/2023 12:26 PM CDT) Only the most recent of49 resultswithin the time period is included. BUN 13 7 - 26 mg/dL 03/30/2023 1:06 PM [facility] Creatinine 0.55(L) 0.56 - 0.96 mg/dL 03/30/2023 1:06 PM [facility] Sodium 140 136 - 145 mmol/L 03/30/2023 1:06 PM [facility] Potassium 4.1 3.5 - 4.5 mmol/L 03/30/2023 1:06 PM [facility] Chloride 104 98 - 107 mmol/L 03/30/2023 1:06 PM [facility] CO2 26 22 - 29 mmol/L 03/30/2023 1:06 PM [facility] Glucose 129(H) 70 - 115 mg/dL 03/30/2023 1:06 PM [facility] Calcium 9.8 8.4 - 10.2 mg/dL 03/30/2023 1:06 PM [facility] Protein Total 8.6(H) 6.0 - 8.3 g/dL 03/30/2023 1:06 PM [facility] Albumin 4.3 3.4 - 5.0 g/dL 03/30/2023 1:06 PM [facility] Bilirubin Total 0.8 0.2 - 1.2 mg/dL 03/30/2023 1:06 PM [facility] Alkaline Phosphatase 124 40 - 150 U/L 03/30/2023 1:06 PM [facility] ALT 15 5 - 55 U/L 03/30/2023 1:06 PM [facility] AST 17 5 - 34 U/L 03/30/2023 1:06 PM [facility] Anion Gap 10 6 - 16 03/30/2023 1:06 PM [facility] BUN/Creatinine Ratio 24(H) 7 - 23 03/30/2023 1:06 PM [facility] Osmolality Calculated 292 275 - 295 mOsm/kg 03/30/2023 1:06 PM [facility] Albumin/Globulin Ratio 1.0(L) 1.1 - 2.3 03/30/2023 1:06 PM [facility] eGFR by CKD-EPI >90 >=90 mL/min/1.7 3 m2 03/30/2023 1:06 PM [facility] Blood BLOOD SPECIMEN / Unknown Venipuncture / Unknown 03/30/2023 12:26 PM CDT 03/30/2023 12:40 PM [facility] Dari Lorenzana MD LAB - CHEMISTRY [facility] Organization Address City/State/ZIP Co de Phone Number [facility] [address] [place] [address], [facility] [phone] * (ABNORMAL) GLUCOSE - POINT OF CARE (02/23/2023 9:00 PM CDT) Only the most recent of32 resultswithin the time period is included. Glucose WB/POC 168(H) 70 - 115 mg/dL 02/23/2023 9:01 PM CDT [facility] Specimen Type Cap Fingerstick 2022 9:01 PM CDT [facility] Blood BLOOD SPECIMEN / Unknown 02/23/2023 9:00 PM CDT 02/23/2023 9:01 PM CDT Nel Cobb Eryn DO LAB - POINT OF CAR E ORDERABLES [facility] [address] [address], [place] [phone] * CULTURE BLOOD (02/23/2023 4:56 PM CDT) Only the most recent of16 resultswithin the time period is included. Pathologist [facility] Culture No growth day 5 KASSY 02/28/2023 11:01 PM CDT [facility] Blood PERIPHERAL BLOOD / Unknown Lab Venipuncture / Unknown 02/23/2023 4:56 PM CDT 02/23/2023 5:03 PM CDT Nel Cobb Eryn DO LAB - MICROBIOLOGY ORDERABLES [facility] [address] [place] [address], [facility] [phone] * XR CHEST 1VW PORTABLE (02/23/2023 2:38 PM CDT) Only the most recent of9 resultswithin the time period is included. Anatomical Region Laterality Modality Chest Radiographic Estephanie ging 02/24/2023 10:0 7 AM CDT Narrative 02/24/2023 1:57 PM CDT PROCEDURE: ??XR CHEST 1VW PORTABLE, DATE/TIME OF EXAM: ??02/23/2023 2:38 PM, LOCATION ??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 FINDINGS/IMPRESSION: Support devices: *2 spinal cord stimulator leads superimpose the lower thoracic spine. *Postoperative changes of discectomy, interbody disc spacer placement, and anterior spinal fusion of the cervicothoracic spine. No significant interval change. Redemonstrated mild right hemidiaphragm elevation. There is no focal consolidation, pleural effusion, or pneumothorax. The mediastinal and cardiac contours are normal. No acute osseous abnormality is seen. Report dictated by Diogenes Perez MD, PhD (residential program manager). George Tellez MD have personally reviewed and interpreted this examination/study. > Interpreting Provider: George Neal MD on 02/24/2023 1:57 PM Procedure Note George Neal MD - 02/24/2023 PROCEDURE: XR CHEST 1VW PORTABLE, DATE/TIME OF EXAM: 02/23/2023 2:38PM, LOCATION 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 FINDINGS/IMPRESSION: Support devices: *2 spinal cord stimulator leads superimpose the lower thoracic spine. *Postoperative changes of discectomy, interbody disc spacer placement,and anterior spinal fusion of the cervicothoracic spine. No significant interval change. Redemonstrated mild right hemidiaphragm elevation. There is no focal consolidation, pleural effusion, or pneumothorax. The mediastinal and cardiac contours are normal. No acute osseous abnormality is seen. Report dictated by Diogenes Perez MD, PhD (residential program manager). George Tellez MD have personally reviewed and interpreted this examination/study. > Interpreting Provider: George Neal MD on 02/24/2023 1:57 PM Nel Cerna DO DIAGNOSTIC IMAGING ORDERABLES * (ABNORMAL) URINALYSIS REFLEX TO MICROSCOPIC NO CULTURE (02/23/2023 1:41 PM CDT) Only the most recent of2 resultswithin the time period is included. Color UA Yellow Straw, Yellow 02/23/2023 2:01 PM [facility] Clarity UA Cloudy(A) Clear 02/23/2023 2:01 PM [facility] Specific [place]day UA 1.004(L) 1.005 - 1.030 02/23/2023 2:01 PM [facility] pH UA 5.0 5.0 - 8.0 pH 02/23/2023 2:01 PM [facility] Protein UA Negative Negative 02/23/2023 2:01 PM [facility] Glucose UA Negative Negative 02/23/2023 2:01 PM [facility] Ketone UA Negative Negative 02/23/2023 2:01 PM [facility] Bilirubin UA Negative Negative 02/23/2023 2:01 PM [facility] Blood UA 2+(A) Negative 02/23/2023 2:01 PM [facility] Nitrite UA Negative Negative 02/23/2023 2:01 PM [facility] Leukocyte Esterase 3+(A) Negative 02/23/2023 2:01 PM [facility] Urobilinogen UA Negative Negative mg/dL 02/23/2023 2:01 PM [facility] RBC UA 21-50(A) None Seen, 0-2, 3-5 /HPF 02/23/2023 2:01 PM [facility] WBC UA >100(A) None Seen, 0-5 /HPF 02/23/2023 2:01 PM [facility] WBC Clumps Moderate(A) None /HPF 02/23/2023 2:01 PM [facility] Bacteria UA Trace(A) None /HPF 02/23/2023 2:01 PM [facility] Yeast Budding UA Occasional( A) None /HPF 02/23/2023 2:01 PM [facility] Squamous Epithelial Cells UA 0-2 None Seen, 0-2, 3-5 /HPF 02/23/2023 2:01 PM [facility] Urine URINE SPECIMEN FROM NEPHROSTOMY TUBE / Unknown Collection / Unknown 02/23/2023 1:41 PM CDT 02/23/2023 1:50 PM [facility] - 02/23/2023 2:01 PM CDT Nelselene Cerna DO LAB - URINALYSIS O RDERABLES Performing Organization Address City/[facility] Care [facility]/ZIP Co de Phone Number [facility] [address] [place] [address], [facility] [phone] * PREPARE (CROSSMATCH) RBC UNIT(S), 2 Units (02/22/2023 1:17 AM CDT) Only the most recent of7 resultswithin the time period is included. Unit Description -1 LR PRBC LV [facility] Unit ABO A [facility] Unit Rh NEG [facility] Product Number R52 [facility] B LO[facility] Unit Donor # [id number] [facility] Unit Status released [facility] BL[facility] D [facility] Product Code [id number] [facility] OD [facility] Blood Type Barcode 0600 [facility] Expiration Date S BLOOD BANK LAB Unit Description AS1 LR PRBC [facility] Unit ABO B [facility] Unit Rh NEG [facility] Product Number R02 [facility] B LOOD BANK LAB Unit Donor # [id number] [facility] Unit Status released [facility] BL[facility] D [facility] Product Code [id number] [facility] BLO OD BANK LAB Blood Type Barcode 1700 [facility] Expiration Date S BLOOD BANK LAB Blood Bank BLOOD SPECIMEN / Unknown 02/18/2023 9:04 AM CDT Ludmila Nuñez BUTTERMAKER HELPER-CORPORATE SALES TRAINER LAB - BLOOD BAN K ORDERABLES Performing Organization Address City/Special Care [facility]/ZIP Co de Phone Number [facility] BLOOD [facility] [address] [place] [address], [facility] [phone] * ETT LINE PERFORMABLE (02/18/2023 12:23 PM CDT) Narrative Conner Juarez Anes Asst - 02/18/2023 12:23 PM CDT Conner Juarez Anes Asst ? 02/18/2023 12:24 PM Endotracheal Tube Placement: ? Patient Location: OR. Intubation Event Date/Time: ??02/18/2023 11:48 AM Procedure: intubation (11330). Procedure Section: ?? Sedation: under general anesthesia. Indications for Airway Management: ??anesthesia Induction: standard IV Patient Position: ??sniffing Mask Ventilation: easy. Blade Type: Video (ProVue-MAC 3) Blade Size: 3 Laryngoscopy View: grade 1 (full cords) Intubation Adjuncts: stylet Tube: endotracheal tube Placement: oral Tube type: cuff - inflated Tube Size (MM): 7 Depth of Insertion (CM): 21 Measured From: teeth Cuff Inflated With: air Number of Attempts: 1. Placement Verified By: direct visualization, bilateral breath sounds, chest auscultation and CO2 monitor Tube secured with: ??adhesive tape. Dentition unchanged? ??Yes Difficult Airway? ??No. Procedure Start Time: 02/18/2023 11:48 AM. Staff Section ? Anesthesia Provider: Conner Juarez Anes Asst, Performed the procedure ? Provider #1: Pratik Gallagher MD. Pratik Gallagher MD GENERAL ANESTHESIA O RDERABLES * TYPE + SCREEN PANEL (02/18/2023 8:41 AM CDT) Only the most recent of5 resultswithin the time period is included. Antibody Screen NEG 02/18/2023 10:41 AM CDT [facility] ABO Rh AB NEG 02/18/2023 10:41 AM CDT [facility] Blood Bank BLOOD SPECIMEN / Unknown Venipuncture / Unknown 02/18/2023 8:41 AM CDT 02/18/2023 9:04 AM CDT Ludmila Nuñez BUTTERMAKER HELPER[employer]PORATE SALES TRAINER LAB - BLOOD BAN K ORDERABLES [facility] [address] [place] [address], [place] [phone] * US RETROPERITONEAL COMPLETE (02/10/2023 10:30 AM CDT) Only the most recent of3 resultswithin the time period is included. Anatomical Region Laterality Modality Abdomen Ultrasound 02/10/2023 8:22 AM CDT Impressions 02/10/2023 12:01 PM CDT IMPRESSION: 1.Normal renal size. No evidence of nephrolithiasis or hydronephrosis. 2.There is a 1.4 cm hypoechoic lesion in the lower pole of the left kidney without internal flow on Color doppler favoring a cyst. Recommend a repeat renal ultrasound in 6 months to confirm stability. 3.Status post cystectomy. > Dictated by Lai Blanco DO (residential program manager). > Dictated by Lai Blanco DO (Technician Support Engineer) 02/10/2023 8:22 AM I, hCris Coker MD have personally reviewed and interpreted this examination/study. > Interpreting Provider: Chris Coker MD on 02/10/2023 12:01 PM Narrative 02/10/2023 12:01 PM CDT PROCEDURE: ??US RETROPERITONEAL COMPLETE, DATE/TIME OF EXAM: ??02/10/2023 8:09 AM, LOCATION ??[facility] INDICATION: N28.1: Renal cyst ADDITIONAL CLINICAL INFORMATION: Ordering Provider Reason For Exam: ??Further examination of Left renal hypo attenuating lesion seen on recent technical artist Note: ??Left renal cyst within the inferior pole the left kidney appears simple, bladder is absent COMPARISON: CT Abdomen Pelvis 02/08/2023 and 09/11/2022 FINDINGS: Right kidney: 11.0 x 5.4 x 5.3 cm Left kidney: 11.5 x 4.4 x 5.9 cm The renal parenchymal echogenicity is normal.There is a 1.4 cm hypoechoic lesion in the lower pole of the left kidney without internal flow on Color doppler. There is no evidence of renal calculi or hydronephrosis. Blood flow is seen within the renal arteries and veins. The bladder is absent. Procedure Note Chris Coker MD - 02/10/2023 PROCEDURE: US RETROPERITONEAL COMPLETE, DATE/TIME OF EXAM: 38:09 AM, LOCATION [facility] INDICATION: N28.1: Renal cyst ADDITIONAL CLINICAL INFORMATION: Ordering Provider Reason For Exam: Further examination of Left renalhypo attenuating lesion seen on recent technical artist Note: Left renal cyst within the inferior pole the left kidney appears simple, bladder is absent COMPARISON: CT Abdomen Pelvis 02/08/2023 and 09/11/2022 FINDINGS: Right kidney: 11.0 x 5.4 x 5.3 cm Left kidney: 11.5 x 4.4 x 5.9 cm The renal parenchymal echogenicity is normal.There is a 1.4 cmhypoechoic lesion in the lower pole of the left kidney without internal flow onColor doppler. There is no evidence of renal calculi or hydronephrosis. Blood flow is seen within the renal arteries and veins. The bladder is absent. IMPRESSION: 1.Normal renal size. No evidence of nephrolithiasis or hydronephrosis. 2.There is a 1.4 cm hypoechoic lesion in the lower pole of the leftkidney without internal flow on Color doppler favoring a cyst. Recommend arepeat renal ultrasound in 6 months to confirm stability. 3.Status post cystectomy. > Dictated by Lai Blanco DO (residential program manager). > Dictated by Lai Blanco DO (Technician Support Engineer) 02/10/2023 8:22 AM IChris MD have personally reviewed and interpreted this examination/study. > Interpreting Provider: Chris Coker MD on 02/10/2023 12:01 PM Emmy Morley MD US ORDERABLES * LIPASE BLOOD (02/09/2023 9:00 AM CDT) Only the most recent of14 resultswithin the time period is included. Lipase 9 8 - 78 U/L 02/09/2023 9:28 AM CDT [facility] Blood BLOOD SPECIMEN / Unknown Lab Venipuncture / Unknown 02/09/2023 9:00 AM CDT 02/09/2023 9:06 AM CDT Narrative [facility] - 02/09/2023 9:28 AM CDT Lipase results from the [employer] Al[employer] analyzer may not be comparable with other methodologies. Emmy Morley MD LAB - CHEMISTRY ORD ERABLES [address] [address], [facility] [phone] * TROPONIN-I HIGH SENSITIVE REFLEX 1HOUR (02/08/2023 5:47 AM CDT) Troponin I High Sensitive 3 <=14 ng/L 02/08/2023 6:33 AM CDT [facility] Delta Troponin I HS 0 <6 ng/L 02/08/2023 6:33 AM CDT [facility] Blood BLOOD SPECIMEN / Unknown Venipuncture / Unknown 02/08/2023 5:47 AM CDT 02/08/2023 5:59 AM CDT Ancelmo Claire MD LAB - CHEMISTRY ORDERABLES [facility] [address] [place] [address], [facility] [phone] * (ABNORMAL) URINE MICROSCOPIC ONLY REFLEX TO CULTURE (02/08/2023 4:42 AM CDT) Only the most recent of25 resultswithin the time period is included. Reflex Status Culture to follow 02/08/2023 6:54 AM CDT [facility] RBC UA 6-10(A) None Seen, 0-2, 3-5 /HPF 02/08/2023 6:54 AM T [facility] WBC UA 6-10(A) None Seen, 0-5 /HPF 02/08/2023 6:54 AM T [facility] Bacteria UA Trace(A) None /HPF 02/08/2023 6:54 AM T [facility] Squamous Epithelial Cells UA None Seen None Seen, 0-2, 3-5 /HPF 02/08/2023 6:54 AM T [facility] Mucus UA 2+ /LPF 02/08/2023 6:54 AM CDT [facility] Urine URINE SPECIMEN OBTAINED VIA INDWELLING URINARY CATHETER / Unknown Collection / Unknown 02/08/2023 4:42 AM CDT 02/08/2023 4:51 AM CDT Narrative [facility] - 02/08/2023 6:54 AM CDT Ancelmo Claire MD LAB - URINALYSI S ORDERABLES Performing Organization Address City/[facility] Care [facility]/ZIP Co de Phone Number [facility] [address] [place] [address], [facility] [phone] * (ABNORMAL) URINALYSIS REFLEX MICROSCOPIC REFLEX CULTURE (02/08/2023 4:42 AM CDT) Only the most recent of28 resultswithin the time period is included. Color UA Straw Straw, Yellow 02/08/2023 5:18 AM T [facility] Clarity UA Clear Clear 02/08/2023 5:18 AM T [facility] Specific [place] UA 1.047(H) 1.005 - 1.030 02/08/2023 5:18 AM T [facility] pH UA 6.0 5.0 - 8.0 pH 02/08/2023 5:18 AM T [facility] Protein UA Negative Negative 02/08/2023 5:18 [address] [facility] Glucose UA Negative Negative 02/08/2023 5:18 AM T [facility] Ketone UA Negative Negative 02/08/2023 5:18 AM [facility] Bilirubin UA Negative Negative 02/08/2023 5:18 AM [facility] Blood UA 1+(A) Negative 02/08/2023 5:18 AM T [facility] Nitrite UA Positive(A) Negative 02/08/2023 5:18 AM [facility] Leukocyte Esterase Trace(A) Negative 02/08/2023 5:18 AM [facility] Urobilinogen UA Negative Negative mg/dL 02/08/2023 5:18 AM [facility] Urine URINE SPECIMEN OBTAINED VIA [facility] / Unknown Collection / Unknown 02/08/2023 4:42 AM CDT 02/08/2023 4:51 AM CDT [facility] - 02/08/2023 5:18 AM CDT Ancelmo Claire MD LAB - URINALYSI S ORDERABLES [facility] [address] [place] [address], [facility] [phone] * TROPONIN-I HIGH SENSITIVE BASELINE + 1HR (02/08/2023 4:32 AM CDT) Troponin I High Sensitive <3 <=14 ng/L 02/08/2023 5:14 AM CDT [facility] Blood BLOOD SPECIMEN / Unknown Venipuncture / Unknown 02/08/2023 4:32 AM CDT 02/08/2023 4:43 AM CDT Ancelmo Claire MD LAB - CHEMISTRY ORDERABLES Performing Organization Address City/Special Care Hospital/ZIP Co de Phone Number [address] [address], [facility] [phone] * CREATININE BODY FLUID ([facility] ONLY) (09/10/2022 9:44 AM CDT) Creatinine Fluid 0.5 Not Established For Fluids mg/dL 09/10/2022 10:21 AM CDT [facility] Comment:The analytical perfo rmance of this test has been independently validated by [facility]. A reference range has not been established. Comparison of this result with the concentration in blood, serum or plasma is recommended. Fluid PERITONEAL FLUID / Unknown Collection / Unknown 09/10/2022 9:44 AM CDT 09/10/2022 9:48 AM CDT Elsy DORAN LAB - BODY FLUID ORDERABLES [facility] [address] [place] [phone], [facility] [phone] * TRANSFUSE RED BLOOD CELL LEUKOREDUCED UNIT(S) (09/04/2022 5:50 PM SUPERVISOR POWER REACTOR) Nel Cerna DO NURSING - BLOOD MT OD TRANSFUSION * TRANSFUSE RED BLOOD CELL LEUKOREDUCED UNIT(S) (09/04/2022 1:26 PM SUPERVISOR POWER REACTOR) Nel Cerna DO NURSING - BLOOD MT OD TRANSFUSION * TEG 6 GLOBAL HEMOSTASIS W/ LYSIS (09/04/2022 10:21 AM [facility]) Pathologist [facility] Citrated Kaolin R (Reaction Time) 7.7 4.6 - 9.1 min 09/04/2022 11:54 AM [facility] Citrated Kaolin LY30 (Lysis) 0.9 0.0 - 2.6 % 09/04/2022 11:54 AM [facility] Citrated Functional Fibrinogen MA (Max Amplitude) 17.5 15.0 - 32.0 mm 09/04/2022 11:54 AM [facility] Citrated RapidTEG MA (Max Amplitude) 59.1 52.0 - 70.0 mm 09/04/2022 11:54 AM [facility] Blood BLOOD SPECIMEN / Unknown Venipuncture / Unknown 09/04/2022 10:21 AM SUPERVISOR POWER REACTOR 09/04/2022 10:49 AM [facility] Nel Cerna DO LAB - HEMATOLOGY O RDERABLES [facility] [address] [place] [phone] [phone] * (ABNORMAL) TEG 6S PLATELET MAPPING (09/04/2022 10:21 AM [facility]) [facility] TEGPLM (Max Amplitude) Koalin 62.0 53.0 - 68.0 mm 09/04/2022 11:31 AM [facility] TEGPLM (Max Amplitude) ACTF 12.3 2.0 - 19.0 mm 09/04/2022 11:31 AM [facility] TEGPLM (Max Amplitude) ADP 54.2 45.0 - 69.0 mm 09/04/2022 11:31 AM [facility] TEGPLM (Max Amplitude) AA 52.0 51.0 - 71.0 mm 09/04/2022 11:31 AM [facility] TEGPLM %Inhibition ADP 15.7 0.0 - 17.0 % 09/04/2022 11:31 AM [facility] TEGPLM %Inhibition AA 20.1(H) 0.0 - 11.0 % 09/04/2022 11:31 AM [facility] TEGPLM %Aggregation ADP 84.3 83.0 - 100.0 % 09/04/2022 11:31 AM [facility] TEGPLM % Aggregation AA 79.9(L) 89.0 - 100.0 % 09/04/2022 11:31 AM [facility] Blood BLOOD SPECIMEN / Unknown Venipuncture / Unknown 09/04/2022 10:21 AM SUPERVISOR POWER REACTOR 09/04/2022 10:49 AM SUPERVISOR POWER REACTOR Nel [facility] LAB - HEMATOLOGY O RDERABLES Performing Organization Address City/[facility]/ZIP Co de Phone Number [address] [address], [facility] [phone] * (ABNORMAL) PTT [facility] (09/04/2022 10:21 AM SUPERVISOR POWER REACTOR) APTT 45.9(H) 23.0 - 38.4 Seconds 09/04/2022 11:12 AM [facility] Comment:Suggested therapeuti c range for full dose I.V. unfractionated heparin therapy for venous thromboembolism is 71 to 109 seconds. Blood BLOOD SPECIMEN / Unknown Venipuncture / Unknown 09/04/2022 10:21 AM SUPERVISOR POWER REACTOR 09/04/2022 10:49 AM SUPERVISOR POWER REACTOR Nel Cerna LAB - COAGULATION ORDERABLES Performing Organization Address [facility]/ZIP Co de Phone Number [address] [address], [facility] [phone] * (ABNORMAL) PT-INR [facility] (09/04/2022 10:21 AM SUPERVISOR POWER REACTOR) PT 21.1(H) 12.1 - 14.8 Seconds 09/04/2022 11:22 AM [facility] INR 1.8 See Comment 09/04/2022 11:22 AM [facility] Comment:The suggested therap eutic range for standard coumadin (warfarin) therapy is an INR of 2.0-3.0. For high-risk patients (Mechanical Mitral Valve Prosthesis, etc.), the suggested prophylactic therapeutic range is an INR of 2.5-3.5. Blood BLOOD SPECIMEN / Unknown Venipuncture / Unknown 09/04/2022 10:21 AM SUPERVISOR POWER REACTOR 09/04/2022 10:49 AM SUPERVISOR POWER REACTOR Nel Cobb Eryn DO LAB - COAGULATION ORDERABLES Performing Organization Address City/[facility]/ZIP Co de Phone Number [address] [address], [facility] [phone] * FIBRINOGEN ACTIVITY (09/04/2022 10:21 AM SUPERVISOR POWER REACTOR) Fibrinogen Clauss 254 200 - 400 mg/dL 09/04/2022 11:12 AM SUPERVISOR POWER REACTOR [facility] Blood BLOOD SPECIMEN / Unknown Venipuncture / Unknown 09/04/2022 10:21 AM SUPERVISOR POWER REACTOR 09/04/2022 10:49 AM SUPERVISOR POWER REACTOR Nel Cobb Eryn DO LAB - COAGULATION ORDERABLES Performing Organization Address City/[facility] Co de Phone Number [address] [address], [place] [phone] * LACTIC ACID BLOOD (09/04/2022 8:32 AM SUPERVISOR POWER REACTOR) Only the most recent of23 resultswithin the time period is included. Lactic Acid-Stat 1.4 <=2.0 mmol/L 09/04/2022 9:12 AM SUPERVISOR POWER REACTOR [facility] Blood BLOOD SPECIMEN / Unknown Venipuncture / Unknown 09/04/2022 8:32 AM SUPERVISOR POWER REACTOR 09/04/2022 8:52 AM SUPERVISOR POWER REACTOR Elsy Kraus APRN-CORPORATE SALES TRAINER LAB - CHEMISTRY ORDERABLES Performing Organization Address [facility]/ZIP Co de Phone Number [address] [address], [place] [phone] * (ABNORMAL) BLOOD GAS+COOX+LYTES+METAB ARTERIAL POCT (09/03/2022 7:05 PM SUPERVISOR POWER REACTOR) Only the most recent of9 resultswithin the time period is included. pH Arterial 7.38 7.35 - 7.45 pH 09/03/2022 7:05 PM [facility] pO2 Arterial 183(H) 80 - 100 mmHg 09/03/2022 7:05 PM [facility] pCO2 Arterial 41 35 - 45 mmHg 7:05 PM [facility] HCO3 Arterial 24 20 - 30 mmol/l 09/03/2022 7:05 PM [facility] BE Arterial -0.8 -2.0 - 2.0 mmol/L 09/03/2022 7:05 PM [facility] Oxyhemoglobin Arterial 96.4 % 09/03/2022 7:05 PM [facility] Dexoyhemoglobin (HHB) % 1.3 % 09/03/2022 7:05 PM [facility] Methemoglobin 1.1 0.0 - 2.0 % 09/03/2022 7:05 PM [facility] Carboxyhemoglobin 1.2 0.0 - 2.0 % 2022 7:05 PM [facility] Comment:Carboxyhemoglobin No rmal Concentration: Non-smokers: 0-2%; Smokers: 0- 9%; Toxic: >20% O2 Content Arterial 15.0 Interpret within clinical context ml/dL 09/03/2022 7:05 PM [facility] Hemoglobin by COOX 10.8(L) 12.0 - 15.6 g/dL 09/03/2022 7:05 PM [facility] O2 Saturation Arterial 99 90 - 100 % 09/03/2022 7:05 PM [facility] Sodium Whole Blood 135 135 - 145 mmol/L 09/03/2022 7:05 PM [facility] Potassium Whole Blood 4.8 3.5 - 5.5 mmol/L 09/03/2022 7:05 PM [facility] Chloride WB 105 101 - 111 mmol/L 09/03/2022 7:05 PM [facility] Calcium Ionized 1.29 mmol/L 7:05 PM [facility] Ionized Calcium pH Adjusted 1.28 1.19 - 1.34 mmol/L 09/03/2022 7:05 PM [facility] Anion Gap (AG) Arterial 11 8 - 18 mmol/L 09/03/2022 7:05 PM [facility] Glucose WB 160(H) 70 - 105 mg/dL 09/03/2022 7:05 PM [facility] Lactic Acid Whole Blood 1.2 <=2.0 mmol/L 09/03/2022 7:05 PM [facility] Blood, arterial ARTERIAL BLOOD SPECIMEN / Unknown 09/03/2022 7:05 PM SUPERVISOR POWER REACTOR 09/03/2022 7:06 PM SUPERVISOR POWER REACTOR Nel Cerna DO LAB - POINT OF CAR E ORDERABLES [address] [address], [place] [phone] * BLOOD GAS ART+LYTES+METAB+COOX POC NOTIF (09/03/2022 7:02 PM SUPERVISOR POWER REACTOR) Only the most recent of3 resultswithin the time period is included. Comment Notification Label Only - See Separate Report 09/03/2022 8:30 PM [facility] Other MISCELLANEOUS SAMPLES / Unknown 09/03/2022 7:02 PM SUPERVISOR POWER REACTOR 09/03/2022 7:04 PM SUPERVISOR POWER REACTOR Nolberto Prado MD LAB - BLOOD GASES OR DERABLES Performing Organization Address City/[facility]/ZIP Co de Phone Number [address] [address], [place] [phone] * CULTURE FUNGUS OTHER+FUNGUS SMEAR (09/03/2022 5:27 PM SUPERVISOR POWER REACTOR) Only the most recent of2 resultswithin the time period is included. Culture No fungus isolated KASSY 09/30/2022 8:51 AM CDT [facility] Fungus Stain No yeast or hyphae seen 09/30/2022 8:51 AM CDT [facility] Microbiology BIOPSY OF URETHRA / Unknown Collection / Unknown 09/03/2022 5:27 PM SUPERVISOR POWER REACTOR 09/03/2022 5:27 PM SUPERVISOR POWER REACTOR Nel Cerna DO LAB - MICROBIOLOGY ORDERABLES Performing Organization Address [facility]/ZIP Co de Phone Number [facility] [address] [place] [address], [facility] [phone] * CULTURE AFB+SMEAR (09/03/2022 5:27 PM SUPERVISOR POWER REACTOR) Only the most recent of2 resultswithin the time period is included. Culture No acid-fast bacillus isolated 10/14/2022 8:53 AM CDT [facility] AFB Smear No acid-fast bacilli seen 10/14/2022 8:53 AM CDT [facility] Microbiology BIOPSY OF URETHRA / Unknown Collection / Unknown 09/03/2022 5:27 PM SUPERVISOR POWER REACTOR 09/03/2022 5:27 PM SUPERVISOR POWER REACTOR Nel Cerna LAB - MICROBIOLOGY ORDERABLES Performing Organization Address [facility] Co de Phone Number [facility] [address] [place] [address], [facility] [phone] * CULTURE WOUND+GRAM STAIN (09/03/2022 5:26 PM SUPERVISOR POWER REACTOR) Culture No growth KASSY 09/07/2022 7:52 AM SUPERVISOR POWER REACTOR [facility] Gram Stain No organisms seen 023 7:52 AM SUPERVISOR POWER REACTOR [facility] Gram Stain Light Polymorphonuclear cells 09/07/2022 7:52 AM SUPERVISOR POWER REACTOR [facility] Microbiology BIOPSY OF URETHRA / Unknown Collection / Unknown 09/03/2022 5:26 PM SUPERVISOR POWER REACTOR 09/03/2022 5:26 PM SUPERVISOR POWER REACTOR Nel Cerna LAB - MICROBIOLOGY ORDERABLES Performing Organization Address City/[facility]/ZIP Co de Phone Number [facility] [address] [place] [address], [facility] [phone] * CULTURE TISSUE+GRAM STAIN (09/03/2022 5:26 PM SUPERVISOR POWER REACTOR) Culture No growth KASSY 09/06/2022 11:51 PM SUPERVISOR POWER REACTOR [facility] Gram Stain Rare Polymorphonuclear cells 09/06/2022 11:51 PM SUPERVISOR POWER REACTOR [facility] Gram Stain No organisms seen 023 11:51 PM SUPERVISOR POWER REACTOR [facility] Microbiology BIOPSY OF URETHRA / Unknown Collection / Unknown 09/03/2022 5:26 PM SUPERVISOR POWER REACTOR 09/03/2022 5:26 PM SUPERVISOR POWER REACTOR Nel Cerna DO LAB - MICROBIOLOGY ORDERABLES Performing Organization Address [facility] de Phone Number [facility] [address] [place] [address], [facility] [phone] * CULTURE ANAEROBE (09/03/2022 5:26 PM SUPERVISOR POWER REACTOR) Only the most recent of2 resultswithin the time period is included. Culture No anaerobic organisms isolated KASSY 09/09/2022 1:14 PM CDT [facility] Microbiology BIOPSY OF URETHRA / Unknown Collection / Unknown 09/03/2022 5:26 PM SUPERVISOR POWER REACTOR 09/03/2022 5:26 PM SUPERVISOR POWER REACTOR Nel Cerna DO LAB - MICROBIOLOGY ORDERABLES Performing Organization Address [facility] de Phone Number [facility] [address] [place] [address], [facility] [phone] * PATHOLOGY TISSUE (09/03/2022 3:58 PM SUPERVISOR POWER REACTOR) Case Report Surgical Pathology Report ? Case: [id number] ? Authorizing Provider: ??Nel Cerna DO ?Collected: ? 09/03/2022 03:58 PM ? Ordering Location: ? [facility] ?Received: ?09/04/2022 07:41 AM ? Pathologist: ? Missy Smith MD ? Specimens: ?? A) - Urinary Bladder, bladder ? B) - Soft Tissue, Other, Urethral Diverticulum Wall ? 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 09/06/2022 12:45 PM [facility] Clinical History The patient is a 56 year old woman with neurogenic bladder with refractory bladder spasms/pain and recurrent urinary tract infections. 09/06/2022 12:45 PM [facility] Gross Description The requisition and specimen(s) are identified with the patient's name, Angelina Moya. Received in formalin, specimen A , is a previously opened portion of the bladder 5.5 x 3.8 x 3.5 cm with attached adipose tissue measuring overall 10.0 x 7.0 x 4.0 cm (including bladder). The right ureter is probe patent, while the left ureter is difficult to probe and appears to have been resected close to the bladder wall. The bladder mucosa is pink-murdock and edematous with no masses or ulcerations present. The bladder wall has variable thickness 0.5-1.3 cm and is soft. The adipose tissue has no distinct lymph nodes. Collateral Analyst sections are submitted as follows: A1 right ureter margin, A2 left ureter margin, A3 urethral margin, A4 edematous mucosa trigone, A5 bladder dome, A6 right bladder wall. Received in formalin, specimen B is a 1.4 x 1.0 x 0.4 cm portion of soft tissue with purple-murdock mucosa on one side and yellow-murdock necrotic tissue on the opposite surface. The specimen is serially sectioned and entirely submitted in cassette B1. AH 09/06/2022 12:45 PM [facility] Disclaimer The performance characteristics of all immunohistochemical and indirect immunofluorescence stains (if any) cited in this report were determined by the Histopathology Laboratory of [facility]. Some of these tests were developed by our own laboratory and have not been cleared or approved by the US Food and Drug Administration. The FDA does not require this test to go through premarket FDA review. These tests are used for clinical purposes. They should not be regarded as investigational or for research. This laboratory is certified under the Clinical Laboratory Improvement Amendments (CLIA) as qualified to perform high complexity clinical laboratory testing. This case has been personally reviewed and interpreted by the attending (teaching) pathologist. 09/06/2022 12:45 PM [facility] Embedded Images 09/06/2022 12:45 PM [facility] Biopsy, NOS (Urinary Bladder) 09/03/2022 3:58 PM SUPERVISOR POWER REACTOR 09/04/2022 7:41 AM SUPERVISOR POWER REACTOR Comment:Pre-op diagnosis: Neurogenic bladder Urge incontinence Bladder pain Continuous leakage of urine Recurrent UTI Biopsy, Excision (Soft Tissue, Other) 09/03/2022 3:58 PM SUPERVISOR POWER REACTOR 09/04/2022 7:41 AM SUPERVISOR POWER REACTOR Comment:Pre-op diagnosis: Neurogenic bladder Urge incontinence Bladder pain Continuous leakage of urine Recurrent UTI Nel Cerna DO LAB - PATHOLOGY/CY TOLOGY ORDERABLES [facility] [address] [place], [place] [id number] [place] [address] * IV PLACEMENT PERFORMABLE (09/03/2022 12:39 PM SUPERVISOR POWER REACTOR) Narrative Charles Kemp MD - 09/03/2022 12:39 PM SUPERVISOR POWER REACTOR Charles Kemp MD ? 09/03/2022 12:41 PM Peripheral IV Line Placement: Procedure: IV start (92077). Procedure Section: ?? Skin Prep: Chloraprep. Orientation: left Location: antecubital Catheter Gauge: 16 Number of Attempts: 2. Adjuncts: ultrasound Procedure Tolerance: performed while patient under general anesthesia. Procedure Start Time: 09/03/2022 11:45 AM. Procedure End Time: 09/03/2022 11:46 AM. Procedure Total Time: 1 ??minutes. Staff Section ? Anesthesia Provider: Megan Camejo MD, Performed the procedure Megan Camejo MD GENERAL ANESTHESIA O RDERABLES * ETT LINE PERFORMABLE (09/03/2022 12:06 PM SUPERVISOR POWER REACTOR) Narrative Charles Kemp MD - 09/03/2022 12:06 PM SUPERVISOR POWER REACTOR Charles Kemp MD ? 09/03/2022 12:09 PM Endotracheal Tube Placement: ? Patient Location: OR. Intubation Event Date/Time: ??09/03/2022 11:20 AM Procedure: intubation (85214). Procedure Section: ?? Sedation: under general anesthesia. Indications for Airway Management: ??anesthesia Procedure pretreatments used? ??No Induction: standard IV Patient Position: ??sniffing Blade Type: Video Blade Size: 3 Laryngoscopy View: grade 1 (full cords) Intubation Adjuncts: stylet Tube: endotracheal tube Placement: oral Tube type: cuff - inflated Tube Size (MM): 7 Depth of Insertion (CM): 22 Measured From: teeth Cuff Inflated With: air Number of Attempts: 1. Placement Verified By: bilateral breath sounds, direct visualization, CO2 monitor and chest auscultation Tube secured with: ??adhesive tape. Dentition unchanged? ??Yes Difficult Airway? ??No. Procedure Start Time: 09/03/2022 11:20 AM. Staff Section ? Anesthesia Provider: Charles Kemp MD, Performed the procedure ? Provider #1: Megan Camejo MD. Megan Camejo MD GENERAL ANESTHESIA O RDERABLES * ARTERIAL LINE PERFORMABLE (09/03/2022 11:45 AM SUPERVISOR POWER REACTOR) Narrative Charles Kemp MD - 09/03/2022 11:45 AM SUPERVISOR POWER REACTOR Charles Kemp MD ? 09/03/2022 11:47 AM Arterial Line Placement Procedure Note Patient Location: OR. Procedure: Arterial Line (45330). Procedure Section ?? Consent: informed consent was obtained for the procedure. Skin Prep: Chloraprep. Orientation: Left. Site: radial. Site Identification: ultrasound image stored/saved. Sterile Technique: cap, mask and sterile gloves. Gauge: 20. Seldinger Technique Used? ??Yes Number of Attempts: 1. Line Secured with: Tegaderm and tape. Procedure Tolerance: tolerated well, performed while patient under general anesthesia and no immediate complications. Events: none. Patient Sedated? ??Yes Local Anesthetic Used? ??No Sedation Types: general anesthesia Staff Section ? Anesthesia Provider: Charles Kemp MD, Performed the procedure ? Provider #1: Megan Camejo MD. Megan Camejo MD GENERAL ANESTHESIA O RDERABLES * CT RENAL STONE PROTOCOL (05/29/2022 12:53 PM SUPERVISOR POWER REACTOR) Only the most recent of2 resultswithin the time period is included. Anatomical Region Laterality Modality Abdomen Computed Tomogra phy 05/29/2022 1:03 PM SUPERVISOR POWER REACTOR Impressions 05/29/2022 1:09 PM SUPERVISOR POWER REACTOR IMPRESSION: 1. ??No renal stones or obstruction. 2. ??Percutaneous cystostomy tube has decompressed the bladder. ??There are approximately 3 stones within the bladder 3. ??Other chronic and incidental findings as described. > Interpreting Provider: Yasmine Schmitt MD on 05/29/2022 1:09 PM Narrative 05/29/2022 1:09 PM SUPERVISOR POWER REACTOR PROCEDURE: ??CT RENAL STONE, DATE/TIME OF EXAM: ??05/29/2022 12:58 PM, LOCATION ??[facility] INDICATION: R39.89: Other symptoms and signs involving the genitourinary system ADDITIONAL CLINICAL INFORMATION: Ordering Provider Reason For Exam: Technologist Note: ??Pelvic/bladder pain, history of bladder calculi Additional: COMPARISON: CT abdomen and pelvis from 12/27/2020 TECHNIQUE: CT of the abdomen and pelvis was performed without oral or intravenous contrast utilizing the renal stone protocol. Lack of oral and intravenous contrast precludes detailed evaluation of the solid organs and enteric system. CT dose reduction technique was used, including Automated Exposure Control. FINDINGS: There is subsegmental atelectasis in the right lung base. ??The lung bases are otherwise clear and free of effusion. ??Incidental calcified granuloma in the left lower lobe. ??The heart size is normal. Overall liver size and density is normal. ??The gallbladder surgically absent and there is no abnormal dilatation of biliary tree or common duct. The pancreas is fatty but is otherwise unremarkable. ??There is no ductal dilatation. ??The spleen remains mildly enlarged up to 14.7 cm. ??Adrenal glands are normal. ??The kidneys have normal size and are free of stones or obstruction. ??No perinephric stranding. ??The ureters are decompressed and unremarkable. A percutaneous cystostomy tube ends in the decompressed urinary bladder. There are at least 3 calculi in the base of the urinary bladder extending partially into the proximal urethra and have increased in number since last year. ??There is no abnormal fluid collection along the path of this catheter. The abdominal aorta is normal in size and is slightly atherosclerotic. ??An IVC filter lies in the usual location and is unchanged. The distal esophagus is decompressed. ??The stomach is nearly empty normal. The duodenum is normal. ??Small bowel is normal. ??The terminal ileum is normal. ??The appendix is not seen and is presumably resected. ??There is scattered stool in the colon without obstructive or inflammatory changes. Diverticula in the descending and sigmoid colon are not inflamed. The uterus is absent and the ovaries are not seen. ??No free fluid, free air or abscess. ??There is chronic postsurgical changes in the right lower quadrant most likely due to hernia repair. There is chronic metallic and bony fusion of L1-L5. ??Neurostimulator leads enter the spinal canal at the thoracolumbar junction and ascending the thoracic spinal canal. Procedure Note Yasmine Schmitt MD - 05/29/2022 PROCEDURE: CT RENAL STONE, DATE/TIME OF EXAM: 05/29/2022 12:58 PM, LOCATION [facility] INDICATION: R39.89: Other symptoms and signs involving the genitourinary system ADDITIONAL CLINICAL INFORMATION: Ordering Provider Reason For Exam: Technologist Note: Pelvic/bladder pain, history of bladder calculi Additional: COMPARISON: CT abdomen and pelvis from 12/27/2020 TECHNIQUE: CT of the abdomen and pelvis was performed without oral or intravenous contrast utilizing the renal stone protocol. Lack of oral andintravenous contrast precludes detailed evaluation of the solid organs and enteric system. CT dose reduction technique was used, including Automated ExposureControl. FINDINGS: There is subsegmental atelectasis in the right lung base. The lungbases are otherwise clear and free of effusion. Incidental calcifiedgranuloma in the left lower lobe. The heart size is normal. Overall liver size and density is normal. The gallbladder surgically absent and there is no abnormal dilatation of biliary tree or common duct. The pancreas is fatty but is otherwise unremarkable. There is no ductal dilatation. The spleen remains mildly enlarged up to 14.7 cm. Adrenal glands are normal. The kidneys have normal size and are free of stonesor obstruction. No perinephric stranding. The ureters are decompressedand unremarkable. A percutaneous cystostomy tube ends in the decompressed urinary bladder. There are at least 3 calculi in the base of the urinary bladderextending partially into the proximal urethra and have increased in number sincelast year. There is no abnormal fluid collection along the path of this catheter. The abdominal aorta is normal in size and is slightly atherosclerotic.An IVC filter lies in the usual location and is unchanged. The distal esophagus is decompressed. The stomach is nearly empty normal. The duodenum is normal. Small bowel is normal. The terminal ileum is normal. The appendix is not seen and is presumably resected. There is scattered stool in the colon without obstructive or inflammatory changes. Diverticula in the descending and sigmoid colon are not inflamed. The uterus is absent and the ovaries are not seen. No free fluid, freeair or abscess. There is chronic postsurgical changes in the right lower quadrant most likely due to hernia repair. There is chronic metallic and bony fusion of L1-L5. Neurostimulatorleads enter the spinal canal at the thoracolumbar junction and ascending the thoracic spinal canal. IMPRESSION: 1. No renal stones or obstruction. 2. Percutaneous cystostomy tube has decompressed the bladder. Thereare approximately 3 stones within the bladder 3. Other chronic and incidental findings as described. > Interpreting Provider: Yasmine Schmitt MD on 05/29/2022 1:09 PM Kay Palmer BUTTERMAKER HELPER-CORPORATE SALES TRAINER CT ORDERABLES * XR ANKLE LEFT 3VW OR MORE (04/05/2022 6:34 PM CDT) Anatomical Region Laterality Modality Lower Extremity Radiographic Estephanie ging 04/05/2022 6:36 PM CDT Impressions 04/05/2022 6:39 PM CDT IMPRESSION: 1. ??No acute findings. 2. ??Diffuse demineralization > Interpreting Provider: Yasmine Schmitt MD on 04/05/2022 6:39 PM Narrative 04/05/2022 6:39 PM CDT PROCEDURE: ??XR ANKLE LEFT 3VW OR MORE, DATE/TIME OF EXAM: ??04/05/2022 6:34 PM, LOCATION ??[facility] INDICATION: M79.672: Pain in left foot ADDITIONAL CLINICAL INFORMATION: Ordering Provider Reason For Exam: Technologist Note: ??Pain after wheelchair ran over foot Additional: COMPARISON: None. FINDINGS: The bones of the foot and ankle are diffusely demineralized. ??There is no visible fracture or dislocation. ??No radiopaque foreign body. ??The ankle mortise is normally aligned. ??Incidental spurs arise from the medial and lateral malleoli as well as the anterior talus. Procedure Note Yasmine Schmitt MD - 04/05/2022 PROCEDURE: XR ANKLE LEFT 3VW OR MORE, DATE/TIME OF EXAM: 26:34 PM, LOCATION [facility] INDICATION: M79.672: Pain in left foot ADDITIONAL CLINICAL INFORMATION: Ordering Provider Reason For Exam: Technologist Note: Pain after wheelchair ran over foot Additional: COMPARISON: None. FINDINGS: The bones of the foot and ankle are diffusely demineralized. There isno visible fracture or dislocation. No radiopaque foreign body. The ankle mortise is normally aligned. Incidental spurs arise from the medial and lateral malleoli as well as the anterior talus. IMPRESSION: 1. No acute findings. 2. Diffuse demineralization > Interpreting Provider: Yasmine Schmitt MD on 04/05/2022 6:39 PM Kiesha Rodriguez BUTTERMAKER HELPER-CORPORATE SALES TRAINER DIAGNOSTIC IM AGING ORDERABLES * XR FOOT LEFT 3VW OR MORE (04/05/2022 5:20 PM CDT) Anatomical Region Laterality Modality Ankle / Foot Radiographic Estephanie ging 04/05/2022 5:57 PM CDT Impressions 04/05/2022 5:57 PM CDT IMPRESSION: 1. ??No acute bony findings 2. ??Severe demineralization 3. ??Soft tissue swelling > Interpreting Provider: Yasmine Schmitt MD on 04/05/2022 5:57 PM Narrative 04/05/2022 5:57 PM CDT PROCEDURE: ??XR FOOT LEFT 3VW OR MORE, DATE/TIME OF EXAM: ??04/05/2022 5:48 PM, LOCATION ??[facility] INDICATION: M79.672: Pain in left foot ADDITIONAL CLINICAL INFORMATION: Ordering Provider Reason For Exam: Technologist Note: Additional: COMPARISON: None. FINDINGS: There is diffuse demineralization throughout the foot. ??There is no fracture, dislocation or gas in the soft tissues. ??Mild soft tissue swelling is noted over the dorsum of the foot and around the ankle. Procedure Note Yasmine Schmitt MD - 04/05/2022 PROCEDURE: XR FOOT LEFT 3VW OR MORE, DATE/TIME OF EXAM: 04/05/2022 5:48 PM, LOCATION [facility] INDICATION: M79.672: Pain in left foot ADDITIONAL CLINICAL INFORMATION: Ordering Provider Reason For Exam: Technologist Note: Additional: COMPARISON: None. FINDINGS: There is diffuse demineralization throughout the foot. There is no fracture, dislocation or gas in the soft tissues. Mild soft tissue swelling is noted over the dorsum of the foot and around the ankle. IMPRESSION: 1. No acute bony findings 2. Severe demineralization 3. Soft tissue swelling > Interpreting Provider: Yasmine Schmitt MD on 04/05/2022 5:57 PM Kiesha Rodriguez BUTTERMAKER HELPER-CORPORATE SALES TRAINER DIAGNOSTIC IM AGING ORDERABLES * CARDIAC RHYTHM STRIP ORDER (02/07/2022 1:31 AM CDT) Only the most recent of10 resultswithin the time period is included. Narrative 02/07/2022 1:31 AM CDT Ordered by an unspecified provider. Scanned Document CARDIAC SERVICES ORD ERABLES * URINALYSIS AUTO - POINT OF CARE (AMB) STL (10/29/2021 11:13 AM CDT) Clarity UA POCT n/a [facility] Color UA POCT n/a [facility] Leukocyte UA negative Negative [facility] Nitrite UA POCT megative Negative [facility] Urobilinogen UA 0.2 0.1 - 1.[address] [facility] Protein UA POCT negative Negative [facility] pH UA 6.9 5.0 - 8.[address] [facility] Blood UA 1+ Negative [facility] Comment:25 Specific Munday UA POCT 1.005 1.002 - 1.[address] [facility] Ketone UA negative Negative [facility] Bilirubin UA POCT negative Negative [facility] Glucose UA negative Negative [facility] Expiration Date 05/03/[address] [facility] Lot # [id number] [facility] QC Verified Yes Yes [facility] Urine URINE / Unknown 10/29/2021 1 1:13 AM CDT Dave Aparicio MD LAB - POINT OF CARE ORDERABLES [facility] [address] [place] [address], [facility] [phone] * FERRITIN (10/24/2021 3:40 PM CDT) Only the most recent of2 resultswithin the time period is included. Ferritin 55 5 - 204 ng/mL [facility] INSURANCE BILL Blood BLOOD SPECIMEN / Unknown 10/24/2021 3:40 PM CDT 10/24/2021 Narrative Resulting Agency Comment Lab Testing performed at: [address] ?? [place] [id number] Cresencio Ghosh MD LAB - CHEMISTRY MARKUS VALDEZ [facility] INSURANCE BILL [address] [place] [address] * POLYSOMNOGRAM WITH CPAP IF INDICATED (09/03/2021 8:30 AM SUPERVISOR POWER REACTOR) Narrative Elena Lee - 09/03/2021 8:30 AM SUPERVISOR POWER REACTOR Cresencio Ghosh MD ? 09/03/2021 ??8:31 AM [facility] DIAGNOSTIC POLYSOMNOGRAPHY REPORT Name: ??Angelina Moya Date of : 1965 Date of Test: ??09/02/2021 Date of interpretation: 09/03/2021 Referring Physician: Dr. Cresencio Ghosh CLINICAL INDICATION: ?? Symptoms suggestive of obstructive sleep apnea with snoring, witnessed apnea, disrupted sleep with excessive day time sleepiness and F[place] Sleepiness Score of 15 /24. Weight 229 pounds, Ht 68 inches with BMI of 34.7. PROCEDURE: Overnight location and measurement technician attended polysomnography was carried out utilizing continuous digital monitoring at the [facility]. Montage included measurements of EEG (electroencephalography), EOG (electro-oculography), EMG (electromyography), EKG, nasal and oral airflow (PTAF and thermistor), respiratory effort, (abdominal and rib cage movement RIP belts), oxygen saturation, snoring sounds, body position, video monitoring and leg movements. All data was visually scored and analyzed by standard criteria. All events are scored according to the current AASM criteria IA. Hypopneas have a 30% reductions in air flow signals with a ?3% oxygen desaturation from pre-event baseline or the event is associated with an arousal. IB Hypopneas have a 30% reductions in air flow signals with a ?4% oxygen desaturation from pre-event baseline. FINDINGS: Sleep architecture: Light out 21:03 pm Lights on 04:31 am Total recording time was 448 minutes with total sleep time of 437.5 minutes. TST in supine is 36 minutes. Sleep latency is 5 minutes with a sleep efficiency of 97.7% which is normal. Total number of arousals were 12 with arousal index of 1.6 per hour. Sleep is fragmented due to combination of respiratory events and spontaneous arousals. Sleep Stages N1 ?? Sleep: ?3.1 % ? N2 ?? Sleep: ?78.1 % ? N3 ?? Sleep: ?0 % REM Sleep: ?18.9 % REM latency is 252.5 minutes ? Respiratory monitoring: ?? Patient per 3% desaturation IA AAS criteria had total of 15 episodes of apneas and hypopneas with (Apnea -Hypopnea Index ) AHI of 2.1 per hour. REM and Supine Index were 4.4 and 8.3 per hour of sleep with non-supine index of 1.5 per hour. Per 4% desaturation IB Medicare criteria total of 15 episodes of apneas and hypopneas with (Apnea -Hypopnea Index) AHI of 2.1 per hour. REM and supine index were 4.4 and 8.3 per hour. ??The longest event was 18 seconds. Based on this no evidence for significant sleep related breathing disorder in the study. Oxygen Data: Oxygen desaturation did occur to as low as 86%. With Mean Oxygen saturations of 91%. It was associated with respiratory events. Oxygen saturation remained less than 89% for 1 minutes of TST. Movement events: Periodic Limb Movements are present with an index of 144.5 per hour with an arousal index of 0.1 per hour. This is a relatively non-specific finding. Treatment is required only if the patient has concurrent symptoms of restless legs. Cardiac monitoring: No significant arrhythmias were detected during this sleep study. Average heart rate while asleep was 78. Unusual behavior during sleep: ? None IMPRESSION: Patient overall has no significant evidence for sleep related breathing disorder based on AHI of 2.1 per hour using 1A rule and 2.1 per hour using 1B rule. There was evidence for upper airway resistance / sleep apnea while sleeping on supine position based on limited 36 minutes of supine diagnostic data. This study might underestimated severity of sleep apnea because of limited supine sleep data. Patient will benefit from strict lateral position sleep therapy (LPT). Patient did not meet the split night criteria for initiation of CPAP therapy on the same night due to limited respiratory events and not qualify for PAP treatment. If clinical symptoms persist or suspicion for sleep apnea remain high, repeat sleep study in supine sleep position will be repeated in 6-12 months. 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 ?? DIAGNOSIS 1. Upper airway resistance (Supine position) ? (G47.8) ? 2. Hypersomnia, Unspecified. ? (G47.10) ?? 3. PLMD ? (G47.61) ?? RECOMMENDATIONS: Study does not show significant evidence of sleep apnea / breathing disorder and does not qualify for CPAP. Limited supine position data showed evidence for upper airway resistance / sleep apnea while minimal on lateral sleep position and patient will benefit from strict LPT. If clinically indicated, workup and treatment of PLMD recommended. Some other treatment options for patients with UARS include weight reduction and positional therapy. This should be individualized based on patient's characteristics, symptoms and co-morbidities. Patient should be advised against driving or operating heavy equipment's if has symptoms of excessive day time sleepiness. Regular sleep wake cycle and adequate hours of sleep is recommended. I have personally reviewed the entire raw data on the overnight PSG including the patient questionnaire, location and measurement technician notes and all associated tabulated data. FOLLOW UP: My office will call the patient and arrange for follow up. Cresencio Ghosh MD Hydro Station Operator [facility] Diplomate of the [place] [employer] and Neurology Board certified in Sleep Medicine Procedure Note Cresencio Ghosh MD - 09/03/2021 8:30 AM CST Images from the original note were not included. [facility] DIAGNOSTIC POLYSOMNOGRAPHY REPORT Name: Angelina Moya Date of : 1965 Date of Test: 09/02/2021 Date of interpretation: 09/03/2021 Referring Physician: Dr. Cresencio Ghosh CLINICAL INDICATION: Symptoms suggestive of obstructive sleep apnea withsnoring, witnessed apnea, disrupted sleep with excessive day timesleepiness and [place] Sleepiness Score of 15 /24. Weight 229 pounds, Ht68 inches with BMI of 34.7. PROCEDURE: Overnight location and measurement technician attended polysomnography was carried out utilizingcontinuous digital monitoring at the [facility]. Montageincluded measurements of EEG (electroencephalography), EOG(electro-oculography), EMG (electromyography), EKG, nasal and oral airflow(PTAF and thermistor), respiratory effort, (abdominal and rib cagemovement RIP belts), oxygen saturation, snoring sounds, body position,video monitoring and leg movements. All data was visually scored andanalyzed by standard criteria. All events are scored according to thecurrent AASM criteria IA. Hypopneas have a 30% reductions in air flowsignals with a >=3% oxygen desaturation from pre-event baseline or theevent is associated with an arousal. IB Hypopneas have a 30% reductions in air flow signals with a >=4% oxygendesaturation from pre-event baseline. FINDINGS: Sleep architecture: Light out 21:03 pm Lights on 04:31 am Total recording time was 448 minutes with total sleep time of 437.5minutes. TST in supine is 36 minutes. Sleep latency is 5 minutes with asleep efficiency of 97.7% which is normal. Total number of arousals were 12 with arousal index of 1.6 per hour. Sleepis fragmented due to combination of respiratory events and spontaneousarousals. Sleep Stages N1 Sleep: 3.1 % N2 Sleep: 78.1 % N3 Sleep: 0 % REM Sleep: 18.9 % REM latency is 252.5 minutes Respiratory monitoring: Patient per 3% desaturation IA AAS criteria had total of 15 episodes ofapneas and hypopneas with (Apnea -Hypopnea Index ) AHI of 2.1 per hour.REM and Supine Index were 4.4 and 8.3 per hour of sleep with non-supineindex of 1.5 per hour. Per 4% desaturation IB Medicare criteria total of 15 episodes of apneasand hypopneas with (Apnea -Hypopnea Index) AHI of 2.1 per hour. REM andsupine index were 4.4 and 8.3 per hour. The longest event was 18seconds. Based on this no evidence for significant sleep related breathing disorderin the study. Oxygen Data: Oxygen desaturation did occur to as low as 86%. With Mean Oxygensaturations of 91%. It was associated with respiratory events. Oxygensaturation remained less than 89% for 1 minutes of TST. Movement events: Periodic Limb Movements are present with an index of 144.5 per hour withan arousal index of 0.1 per hour. This is a relatively non-specificfinding. Treatment is required only if the patient has concurrent symptomsof restless legs. Cardiac monitoring: No significant arrhythmias were detected during thissleep study. Average heart rate while asleep was 78. Unusual behavior during sleep: None IMPRESSION: Patient overall has no significant evidence for sleep related breathingdisorder based on AHI of 2.1 per hour using 1A rule and 2.1 per hour [id number] rule. There was evidence for upper airway resistance / sleep apneawhile sleeping on supine position based on limited 36 minutes of supinediagnostic data. This study might underestimated severity of sleep apneabecause of limited supine sleep data. Patient will benefit from strictlateral position sleep therapy (LPT). Patient did not meet the split nightcriteria for initiation of CPAP therapy on the same night due to limitedrespiratory events and not qualify for PAP treatment. If clinical symptoms persist or suspicion for sleep apnea remain high,repeat sleep study in supine sleep position will be repeated in 6-12months. 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 DIAGNOSIS 1. Upper airway resistance (Supine position) (G47.8) 2. Hypersomnia, Unspecified.(G47.10) 3. PLMD(G47.61) RECOMMENDATIONS: Study does not show significant evidence of sleep apnea / breathingdisorder and does not qualify for CPAP. Limited supine position datashowed evidence for upper airway resistance / sleep apnea while minimal onlateral sleep position and patient will benefit from strict LPT. If clinically indicated, workup and treatment of PLMD recommended. Some other treatment options for patients with UARS include weightreduction and positional therapy. This should be individualized based onpatient's characteristics, symptoms and co-morbidities. Patient should be advised against driving or operating heavy equipment? sif has symptoms of excessive day time sleepiness. Regular sleep wake cycle and adequate hours of sleep is recommended. I have personally reviewed the entire raw data on the overnight PSGincluding the patient questionnaire, location and measurement technician notes and all associatedtabulated data. FOLLOW UP: My office will call the patient and arrange for follow up. Cresencio Ghosh MD Hydro Station Operator [facility] Diplomate of the [place] [employer] Psychiat[employer] and Neurology Board certified in Sleep Medicine Cresencio Ghosh MD SLEEP CENTER ORDERAB LES * LAB RESULTS ORDER (06/06/2021) 06/06/2021 Narrative 06/06/2021 Ordered by an unspecified provider. Scanned Document LAB - THERAPEUTIC DR OJEDA MONITORING ORDERABLES * CYTOLOGY NON-SALES AND PRODUCTION MANAGER PANEL (STL) (02/21/2021 11:35 AM CDT) Case Report Medical Cytology Report ? Case: [id number] ? Authorizing Provider: ??Christopher Rueda, Collected: ? 02/21/2021 11:35 AM ? MD ? Ordering Location: ? [facility] ?Received: ?02/21/2021 11:56 AM ? Pathologist: ? Ben Hodge MD ? Specimen: ?Cyst Fluid, Tail of pancreas cyst ? 02/22/2021 3:25 PM [facility] Specimen Adequacy Adequate cellularity for evaluation. 02/22/2021 3:25 PM [facility] Final Diagnosis Pancreatic cyst, EUS-FNA: - Cyst contents with mildly atypical, but degenerated cells of uncertain origin and significance (see comment) - Negative for high grade dysplasia 02/22/2021 3:25 PM [facility] Clinical History The patient is a 55 year old female with recent episode of pancreatitis (possibly medication induced) who was found to have pancreatic cysts. On endoscopy, there were multifocal cysts in the neck and tail of the pancreas with a dominant 9 mm lesion in the tail (FNA'd). The sample was insufficient for CEA or amylase testing. 02/22/2021 3:25 PM [facility] Gross Description 1 ThinPrep pap stained slide, 1 cell block from 10cc pink cloudy fluid 02/22/2021 3:25 PM CDT [facility] Microscopic Description A ThinPrep slide shows a few clusters of haphazardly arranged epithelioid cells with abundant cytoplasm and oval to slightly elongated appearing nuclei with no hyperchromasia. There is not obvious mucinous epithelium and no high grade dysplasia. Comment: The epithelioid cells are favored to represent aggregates of histiocytes, but the cytomorphology is relatively non-specific. Rarely, ectopic spleen tissue can be found in the pancreas and would show similar findings. However, the endoscopic impression of a cyst is noted and the specimen is not entirely diagnostic of any particular entity but could be in keeping with a pseudocyst. 02/22/2021 3:25 PM CDT [facility] Disclaimer The performance characteristics of all immunohistochemical and indirect immunofluorescence stains (if any) cited in this report were determined by the Histopathology Laboratory of [facility]. Some of these tests rely on the use of analyte-specific reagents and are subject to specific labeling requirements by the US Food and Drug Administration. Such tests were developed by the Histology Laboratory of [facility] and have not been cleared or approved by the FDA. The FDA has determined that such clearance and approval is not necessary. These tests are used for clinical purposes and should not be regarded as investigational or for research. This laboratory is certified under the Clinical Laboratory Improvement Amendments (CLIA) as qualified to perform high complexity clinical laboratory testing. This case has been personally reviewed and interpreted by the attending (teaching) pathologist. 02/22/2021 3:25 PM CDT [facility] Embedded Images 02/22/2021 3:25 PM CDT [facility] Pathology/Cytolo gy CYST FLUID SPECIMEN / Unknown Collection / Unknown 02/21/2021 11:35 AM CDT 02/21/2021 11:56 AM CDT Christopher Cortés MD LAB - PATHOL OGY/CYTOLOGY ORDERABLES [facility] [address] [facility] [address], [facility] [phone] * POTASSIUM WHOLE BLD (02/21/2021 10:09 AM CDT) Potassium Whole Blood 4.2 3.5 - 5.5 mmol/L 02/21/2021 10:17 AM CDT [facility] Blood WHOLE BLOOD SPECIMEN / Unknown Venipuncture / Unknown 02/21/2021 10:09 AM CDT 02/21/2021 10:09 AM CDT Christopher Cortés MD LAB - CHEMIS TRY ORDERABLES Performing Organization Address City/State/[facility] Co de Phone Number [facility] [address] [place] [phone], [facility] [phone] * ENDOSCOPIC ULTRASONOGRAPHY, GI (02/21/2021 8:10 AM CDT) Pathologist [facility] Report Endoscopy POC Endoscopy Department Report _ Patient Name: Angelina Moya ?Procedure Date: 02/21/2021 8:10 AM ?Date of : 1965 Classification: Outpatient ?Gender: Female Ethnicity: Not or ? Race: White _ Providers: ?Christopher Cortés MD Referring MD: ? Massiel D Devabhaktuni, MD Procedure: ?Upper EUS Indications: ?Pancreatic cyst Medications: ?See the Anesthesia note for documentation of the ?administered medications, Cipro 400 mg IV Patient Profile: ?55F w/ extensive PMH most notable for previous fall ?complicated by spinal hematoma, status post ?surgical intervention further complicated by ?paraplegia w/ associated neurogenic bladder and ?bowel, in addition to acute pancreatitis at the ?time (presume postoperative / ?medication related) ?w/ follow-up imaging demonstrating diminutive ?pancreas cyst(s) in the setting of familial ?pancreatic cancer. #11/2020 CTAP: 6 mm cystic lesion ?in NOP (per my review of images), 8 mm cystic ?lesion in TOP unchanged from prior exam. Here for ?EUS. Description of Procedure: Pre-Anesthesia Assessment:Prior to the procedure, a ?History and Physical was performed, and patient ?medications and allergies were reviewed. The ?patient's tolerance of previous anesthesia was also ?reviewed. The risks and benefits of the procedure ?and the sedation options and risks were discussed ?with the patient. All questions were answered, and ?informed consent was obtained. Prior ?Anticoagulants: The patient has taken no previous ?anticoagulant or antiplatelet agents. ASA Grade ?Assessment: III - A patient with severe systemic ?disease. After reviewing the risks and benefits, ?the patient was deemed in satisfactory condition to ?undergo the procedure. After obtaining informed ?consent, the endoscope was passed under direct ?vision. Throughout the procedure, the patient's ?blood pressure, pulse, and oxygen saturations were ?monitored continuously.The upper EUS was ?accomplished without difficulty. The patient ?tolerated the procedure well. The [id number] was ?introduced through the mouth, and advanced to the ?second part of duodenum. ? Findings: ? ENDOSCOPIC FINDING: : ? Direct sideview exam of the major papilla was unremarkable. No fish ? mouth papilla was present. ? ENDOSONOGRAPHIC FINDING: : ? - The stomach, duodenum and adjacent structures were visualized ? endosonographicall y. ? - Multiple anechoic lesions suggestive of cysts were identified in the ? pancreas, including: ? a) Neck: Conglomerate of 3 diminutive cysts, the largest of which ? measured up to 5.1 mm in cross-sectional diameter. These were ? non-septated and demonstrated thin monteiro without associated intramural ? nodules. Pancreatic ductal communication was not apparent. The cysts ? were deemed too small to sample. ? b) Tail: Two cysts, measuring 9 mm and 5.5 mm in cross-sectional ? diameter respectively. These were non-septated and demonstrated thin ? monteiro without associated intramural nodules. Pancreatic ductal ? communication was not apparent. The largest lesion was sampled via fine ? needle aspiration. A 22-gauge Ahandyhand Biopsy needle was used. Color ? Doppler imaging was utilized prior to needle puncture to confirm a lack ? of significant vascular structures within the needle path. One pass was ? made with the 22 G needle using a trans-gastric approach. Fluid was ? aspirated till complete collapse of the cyst. Only 0.5 mL were obtained. ? The sample was sent for cytology. There was inssuficient fluid for CEA ? or amylase testing. ? - The remainder of the pancreas was carefully examined. The pancreatic ? parenchyma demonstrated diffuse hyperechoic appearance consistent with ? fatty infiltration which resulted in endosonographic artifact. Within ? limitations, no pancreatic masses or other lesions were visualized. The ? pancreatic duct measured up to 1.5 mm in diameter at the level of the ? head and tapered smoothly towards the tail. ? - Endosonographic examination of the papillary region was unremarkable. ? - The common bile duct was normal appearing, measuring up to 3 mm in ? diameter. No filling defects were present. ? - The visualized portion of the liver demonstrated diffuse hyperechoic ? appearance consistent with fatty infiltration. ? - No lymph nodes were visualized in the gastrohepatic, portahepatic or ? peripancreatic region. ? Estimated Blood Loss: ? Estimated blood loss was minimal. Complications: ?No immediate complications. Impression: ? - Multifocal pancreas cysts in neck and tail of ?pancreas, including dominant 9 mm cystic lesion in ?the tail of the pancreas, s/p FNA for cytology ?(inssuficient sample for CEA or amylase testing). ?Findings most likely represent pseudocysts given ?history of pancreatitis, vs. multifocal branch-duct ?IPMNs without worrisome or high risk features. ?- Fatty pancreas. ?- Fatty liver. Moderate Sedation: ? MAC Recommendation: ? - Monitor for fevers, bleeding, abdominal pain. ?- Resume previous diet and medications. ?- Follow-up biopsy results. ?- Plan for repeat Endosonographic exam in 1 year ?unless otherwise determined by biopsy results. ?- Follow-up with referring providers has been ?discussed with the patient/caregiver. ?- The potential complications and concerning ?symptoms/finding s, including but not limited to ?early or delayed fevers, infection, pain, bleeding, ?pancreatitis and perforation, were discussed with ?the patient/caregiver. Emergency contact ?information was provided. ? Attending Participation: ??I personally performed the entire procedure. ? Procedure Code(s): ? --- Professional --- ? 79525, Esophagogastroduod enoscopy, flexible, transoral; with ? transendoscopic ultrasound-guided intramural or transmural fine needle ? aspiration/biopsy( s), (includes endoscopic ultrasound examination ? limited to the esophagus, stomach or duodenum, and adjacent structures) Diagnosis Code(s): ?--- Professional --- ?K86.2, Cyst of pancreas CPT copyright 2019 [employer]. All rights reserved. The codes documented in this report are preliminary and upon strapper review may be revised to meet current compliance requirements. Christopher Cortés MD 02/21/2021 11:06:27 AM Note Initiated On: 02/21/2021 8:10 AM Number of Addenda: 0 ? [facility] ? [address] PROVATION 02/21/2021 8:10 AM CDT Christopher Cortés MD GI PROCEDURE ORDERABLES [facility] PROVATION * HEMOGLOBIN A1C (02/01/2021 4:15 PM CDT) Only the most recent of3 resultswithin the time period is included. Hemoglobin A1c 4.9 4.4 - 6.3 % 02/02/2021 9:21 AM CDT [facility] Estimated Average Glucose 94 mg/dL 02/02/2021 9:21 AM CDT [facility] Comment: HbA1c Interpretation: Treatment target values recommended by ADA and other clinical organizations should be used to evaluate metabolic control in patients. Treatment Target Values: Normal : < 5.7% Pre-diabetes: 5.7-6.4% Diabetes: Equal to or greater than 6.5% Reference: [place] [employer] Standards of Care in Diabetes -2014 In patients 70 years and older consider HbA1c target range of 7.0-7.5% Reference: ??Diabetes Mellitus in Older People: Position Statement on behalf of the International Association of Gerontology and Geriatrics (IAGG), the Diabetes Working Libertarian for Older People (EDWPOP), and the International Task Force of Experts in Diabetes. ??Dallin Rodriguez et al. J [employer]. 2012 Test results diagnostic of diabetes should be repeated for confirmation. The Sebia Capillary 2 assay for the measurement of HbA1c is a National Glycohemoglobin Standardization Program (NGSP)certified method. Blood BLOOD SPECIMEN / Unknown Lab Venipuncture / Unknown 02/01/2021 4:15 PM CDT 02/01/2021 4:38 PM CDT Christopher Cortés MD LAB - CHEMIS TRY ORDERABLES [facility] [address] [address], [facility] [phone] * (ABNORMAL) SLIDE SCAN HEMATOLOGY (12/27/2020 2:19 PM CDT) Only the most recent of2 resultswithin the time period is included. Platelet Estimation Normal Normal, Adequate platelets 12/27/2020 3:35 PM CDT [facility] Comment:Manual platelet coun t 225 Clumped Platelets 2+(A) None 12/27/2020 3:35 PM CDT [facility] Blood BLOOD SPECIMEN / Unknown Venipuncture / Unknown 12/27/2020 2:19 PM CDT 12/27/2020 2:22 PM CDT Ben Wilson PA-C LAB - HEMATOLOGY OR DERABLES Performing Organization Address City/[facility]/ZIP Co de Phone Number [facility] [address] [place] [address] * LARYNGEAL MASK AIRWAY (12/25/2020 10:46 AM CDT) Narrative Ariana Koroma APRN-CRNA - 12/25/2020 10:46 AM CDT Ariana Koroma APRN-CRNA ? 12/25/2020 10:46 AM LMA Placement Procedure/LDA Note: Patient Location: OR. LMA Insertion Date/Time: ??12/25/2020 10:36 AM Procedure: LMA. Pretreatment: 100% O2 Induction: standard IV Patient position: supine. Mask Ventilation: not attempted Type: ??LMA Size: ??4 Number of Attempts: 1. Placement verified by: bilateral breath sounds and CO2 monitor Dentition unchanged? ??Yes Procedure Start Time: 12/25/2020 10:36 AM. Staff Section ?? Anesthesia Provider: Ariana Koroma APRN-LIBRARY DIRECTOR, Performed the procedure Marina Blanca DO GENERAL ANESTHESIA ORDERABLES * MT CYSTOMETROGRAM W/ENVIRONMENTAL REMEDIATION SPECIALIST, MT ANAL/URINARY MUSCLE STUDY (10/20/2020 11:16 AM CDT) Narrative Denys Herrera MD - 10/20/2020 11:16 AM CDT Denys Herrera MD ? 10/20/2020 11:19 AM Urodynamic Results Indication for Procedure: ngb, assess for bladder function/safety Noninvasive Uroflow: Comments: not performed Cystometrogram: First Sensation: 58 ml Capacity: 349 ml Compliance: slightly impaired, not enough to put upper tracts at risk Instability: no Urge incontinence: no Stress incontinence: no VLPP: n/a DLPP: approximately 20 cm H2O EMG: normal Comments: Pressure Flow Study: Comments: pt unable to void Findings: poor detrusor contraction with slight impairment in compliance. ??DLPP in safe region Plan: Pt has some bladder spasms by history. ??I would recommend a trial of alternative medication. ??Nghia prescribed last visit but was not picked up. ??She will try this and follow up with me in 2 months. Denys Herrera MD Denys Herrera MD PROCEDURE/MINOR GUILLORY RGICAL ORDERABLES * (ABNORMAL) POTASSIUM BLOOD (08/14/2020 11:09 AM SUPERVISOR POWER REACTOR) Potassium 2.9(L) 3.5 - 5.1 mmol/L 08/14/2020 11:29 AM SUPERVISOR POWER REACTOR [facility] Blood BLOOD SPECIMEN / Unknown Venipuncture / Unknown 08/14/2020 11:09 AM SUPERVISOR POWER REACTOR 08/14/2020 11:14 AM SUPERVISOR POWER REACTOR Eleazar Thomas DO LAB - CHEMISTRY ORD ERABLES [facility] [address] [place] [address] * SARS-COV-2 (COVID-19) IN HOUSE (08/11/2020 3:30 PM SUPERVISOR POWER REACTOR) Only the most recent of3 resultswithin the time period is included. COVID-19 PCR Not detected Not detected 08/12/2020 4:08 AM SUPERVISOR POWER REACTOR [facility] Microbiology SPECIMEN FROM NASOPHARYNGEAL STRUCTURE / Unknown Collection / Unknown 08/11/2020 3:30 PM SUPERVISOR POWER REACTOR 08/11/2020 3:30 PM SUPERVISOR POWER REACTOR Narrative [facility] - 08/12/2020 4:08 AM SUPERVISOR POWER REACTOR This nucleic acid amplification assay performance was validated by [facility]. This test has been authorized by the Food and Drug administration (FDA)under an Emergency??Use Authorization (EUA). This test has been validated in accordance with the FDA's guidance document Policy for Diagnostic Testing in Laboratories Certified to perform High Complexity Testing under CLIA prior to Emergency Use Authorization for Coronavirus Disease-2019 during the Public Health Emergency issued on August 28, 2019. FDA independent review of this validation is pending. This test is only authorized for the duration of time the declaration that circumstances exist justifying the authorization of emergency use of in vitro diagnostic tests for detection of SARS-CoV-2 virus and/or diagnosis of COVID-19 infection under section 564(b)(1) of the Act, 21 U.S.C 360bbb-3 (b)(1), unless the authorization is terminated or revoked sooner. Fact Sheets for this EUA assay are available upon request. Dave Cornejo MD LAB - MICROBIOLOGY O RDERABLES [facility] [address] [place], [place] [address], [facility] [phone] * (ABNORMAL) AMYLASE BLOOD (07/31/2020 2:10 PM SUPERVISOR POWER REACTOR) Pathologist [facility] Amylase 18(L) 25 - 125 U/L 07/31/2020 9:26 PM SUPERVISOR POWER REACTOR [facility] Comment:Attention clinician: Reference Range change. Blood BLOOD SPECIMEN / Unknown 07/31/2020 2:10 PM SUPERVISOR POWER REACTOR 07/31/2020 3:36 PM SUPERVISOR POWER REACTOR Massiel Melara MD LAB - CHEMISTRY O RDERABLES [facility] [address] [place] [address] * FL WATER SOLUBLE LOWER GI (05/10/2020 11:20 AM SUPERVISOR POWER REACTOR) Anatomical Region Laterality Modality Abdomen Radio Fluoroscop y 05/10/2020 11:5 1 AM SUPERVISOR POWER REACTOR Narrative 05/10/2020 11:53 AM SUPERVISOR POWER REACTOR Water-soluble lower GI Indication for examination: Colonic obstruction, constipation and abdominal pain. Examination the colon is performed by means of water-soluble enema. There is no obstruction to retrograde flow of contrast from the rectum to the cecum. There is a large quantity of stool throughout the colon. There is uncomplicated diverticular disease in the sigmoid with areas of spasm in the sigmoid. No constricting mass identified on the basis of this examination. There is no active or acute inflammatory change identified. Fluoroscopy time 3.1 minutes. A total of 19 radiographs exposures were made. CONCLUSION: Very large quantity of stool throughout the colon. Diverticula formation with some spasm in the sigmoid. No constricting mass, mechanical obstruction or acute inflammatory change identified. *Reading Radiologist: Denys De La Cruz on 05/10/2020 at 11:53 AM Procedure Note Denys De La Cruz MD - 05/10/2020 Water-soluble lower GI Indication for examination: Colonic obstruction, constipation and abdominal pain. Examination the colon is performed by means of water-soluble enema. There is no obstruction to retrograde flow of contrast from the rectum to the cecum. There is a large quantity of stool throughout the colon. There is uncomplicated diverticular disease in the sigmoid with areas of spasm in the sigmoid. No constricting mass identified on the basis of this examination. There is no active or acute inflammatory change identified. Fluoroscopy time 3.1 minutes. A total of 19 radiographs exposures were made. CONCLUSION: Very large quantity of stool throughout the colon. Diverticula formation with some spasm in the sigmoid. No constricting mass, mechanical obstruction or acute inflammatory change identified. *Reading Radiologist: Denys De La Cruz on 05/10/2020 at 11:53 AM Meghann Prado MD FLUOROSCOPY ORDERAB LES * XR ABD OBSTRUCTION SERIES 2VW (03/23/2020 10:44 AM CDT) Anatomical Region Laterality Modality Abdomen Radiographic Estephanie ging 03/23/2020 10:4 7 AM CDT Narrative 03/23/2020 10:51 AM CDT Obstructive Series Two Views - Supine Abdomen ??and Upright Abdomen INDICATION: Abdominal pain FINDINGS: ??There is a granuloma at the left lung base, otherwise the lung bases are clear. The gas pattern is normal. No subdiaphragmatic free air. Spinal stimulator, IVC filter, lumbar spine hardware, and suprapubic catheter are present. There has been prior cholecystectomy and right-sided hernia repair. *Reading Radiologist: Kathleen Contreras on 03/23/2020 at 10:51 AM Procedure Note Kathleen Contreras MD - 03/23/2020 Obstructive Series Two Views - Supine Abdomen and Upright Abdomen INDICATION: Abdominal pain FINDINGS: There is a granuloma at the left lung base, otherwise the lung bases are clear. The gas pattern is normal. No subdiaphragmatic free air. Spinal stimulator, IVC filter, lumbar spine hardware, and suprapubic catheter are present. There has been prior cholecystectomy and right-sided hernia repair. *Reading Radiologist: Kathleen Contreras on 03/23/2020 at 10:51 AM Marci Corrales MD DIAGNOSTIC IMAGING O RDERABLES * AMB REFERRAL TO SLEEP SPECIALIST (02/16/2020 1:27 PM CDT) Simin Chapman BUTTERMAKER HELPER-CORPORATE SALES TRAINER OUTPATIENT RE FERRALS * TROPONIN I (01/29/2020 1:16 AM CDT) Only the most recent of17 resultswithin the time period is included. Troponin I 0.012 <0.038 ng/mL 01/29/2020 1:53 AM CDT [facility] Blood BLOOD SPECIMEN / Unknown Lab Venipuncture / Unknown 01/29/2020 1:16 AM CDT 01/29/2020 1:32 AM CDT Kim Jay [facility] LAB - CHEMISTRY ORDERABLES [facility] [address] [address] * CT HEAD WO CONTRAST (01/28/2020 4:47 PM CDT) Only the most recent of9 resultswithin the time period is included. Anatomical Region Laterality Modality Head Computed Tomogra phy 01/28/2020 4:57 PM CDT Impressions 01/28/2020 4:58 PM CDT No acute intracranial process. *Reading Radiologist: Kathleen Contreras on 01/28/2020 at 4:58 PM Narrative 01/28/2020 4:[address] Brain Without Contrast Indication: Headache Comparison: 08/17/2019 Technique: Axial images of the brain were obtained without contrast and reconstructions performed. Findings: There is no evidence of acute intracranial hemorrhage or recent cortical infarction. There is no mass or midline shift. Ventricular size is within normal limits. There are no extra-axial fluid collections. The bony calvarium is intact. The paranasal sinuses and mastoid air cells are clear. Procedure Note Kathleen Contreras MD - 01/28/2020 CT Brain Without Contrast Indication: Headache Comparison: 08/17/2019 Technique: Axial images of the brain were obtained without contrast and reconstructions performed. Findings: There is no evidence of acute intracranial hemorrhage or recent cortical infarction. There is no mass or midline shift. Ventricular size is within normal limits. There are no extra-axial fluid collections. The bony calvarium is intact. The paranasal sinuses and mastoid air cells are clear. IMPRESSION No acute intracranial process. *Reading Radiologist: Kathleen Contreras on 01/28/2020 at 4:58 PM Kim Jay [facility] CT ORDERABLES * ENDOSCOPY, COLON, SCREENING (11/29/2019) Provider Unknown GI PROCEDURE ORDERAB LES * (ABNORMAL) DIFFERENTIAL MANUAL (09/14/2019 6:00 AM CDT) Only the most recent of2 resultswithin the time period is included. Pathologist [facility] WBC Auto 9.0 x10E9/L 09/14/2019 8:20 AM CDT [facility] WBC Corrected 09/14/2019 8:20 AM CDT [facility] nRBC 09/14/2019 8:20 AM CDT [facility] Neutrophil % Manual 70 44 - 73 % 09/14/2019 8:20 AM CDT [facility] Lymphocytes % Manual 14(L) 20 - 43 % 09/14/2019 8:20 AM CDT [facility] Monocytes % Manual 10 5 - 13 % 09/14/2019 8:20 AM CDT [facility] Eosinophils % Manual 1 0 - 6 % 09/14/2019 8:20 AM CDT [facility] Band % Manual 3 0 - 11 % 09/14/2019 8:20 AM CDT [facility] Myelocytes % Manual 2(H) <=0 % 09/14/2019 8:20 AM CDT [facility] Cells Counted 100 # cells 09/14/2019 8:20 AM CDT [facility] RBC Morphology Normal 09/14/2019 8:20 AM CDT [facility] WBC Morph Normal 09/14/2019 8:20 AM CDT [facility] Platelet Estimation Normal 09/14/2019 8:20 AM [facility] Blood BLOOD SPECIMEN / Unknown Lab Venipuncture / Unknown 09/14/2019 6:00 AM CDT 09/14/2019 6:07 AM CDT Danis Kirby MD LAB - HEMATOLOGY ORD ERABLES Performing Organization Address City/State/[facility] Co de Phone Number [facility] [address] [place] [address] * (ABNORMAL) C DIFFICILE GDH AG + TOXIN A+B (09/13/2019 3:16 PM CDT) Only the most recent of2 resultswithin the time period is included. Pathologist [facility] Interpretation C difficile Indeterm inate(A) Negative for toxigenic C. difficile 09/13/2019 10:03 PM CDT [facility] Stool STOOL SPECIMEN / Unknown Collection / Unknown 09/13/2019 3:16 PM CDT 09/13/2019 3:26 PM CDT Narrative [facility] - 09/13/2019 10:03 PM CDT Indeterminate results reflex to a C. difficile by PCR test. See separate report. Danis Kirby MD LAB - MICROBIOLOGY O SARI [facility] [address] [place] [address], [facility] [phone] * C DIFFICILE BY PCR (09/13/2019 3:16 PM CDT) [facility] C difficile Toxin B Gene Not detected Not detected, Invalid 09/14/2019 10:03 AM CDT [facility] Stool STOOL SPECIMEN / Unknown Collection / Unknown 09/13/2019 3:16 PM CDT 09/13/2019 3:26 PM CDT Danis Kirby MD LAB - MICROBIOLOGY Fabian GUO Performing Organization Address City/[facility]/ZIP Co de Phone Number [facility] [address] [place] [address], [facility] [phone] * RESPIRATORY PATHOGEN PANEL BY PCR (09/09/2019 3:34 PM CDT) [facility] Adenovirus PCR Not detected Not detected, Invalid, Indeterminate 09/09/2019 8:28 PM CDT [facility] Coronavirus PCR Not detected Not detected, Invalid, Indeterminate 09/09/2019 8:28 PM CDT [facility] Human Metapneumovirus PCR Not detected Not detected, Invalid, Indeterminate 09/09/2019 8:28 PM CDT [facility] Human Rhinovirus/Entero virus PCR Not detected Not detected, Invalid, Indeterminate 09/09/2019 8:28 PM CDT [facility] Influenza A PCR Not detected Not detected, Equivocal, Invalid, Indeterminate 09/09/2019 8:28 PM CDT [facility] Influenza B PCR Not detected Not detected, Invalid, Indeterminate 09/09/2019 8:28 PM CDT [facility] Parainfluenza Virus 1 PCR Not detected Not detected, Invalid, Indeterminate 09/09/2019 8:28 PM CDT [facility] Parainfluenza Virus 2 PCR Not detected Not detected, Invalid, Indeterminate 09/09/2019 8:28 PM CDT [facility] Parainfluenza Virus 3 PCR Not detected Not detected, Invalid, Indeterminate 09/09/2019 8:28 PM CDT [facility] Parainfluenza Virus 4 PCR Not detected Not detected, Invalid, Indeterminate 09/09/2019 8:28 PM CDT [facility] Respiratory Syncytial Virus PCR Not detected Not detected, Invalid, Indeterminate 09/09/2019 8:28 PM CDT [facility] Bordetella pertussis PCR Not detected Not detected, Invalid 09/09/2019 8:28 PM CDT [facility] Chlamydia pneumoniae PCR Not detected Not detected, Invalid, Indeterminate 09/09/2019 8:28 PM CDT [facility] Mycoplasma pneumoniae PCR Not detected Not detected, Invalid, Indeterminate 09/09/2019 8:28 PM CDT [facility] Microbiology SPECIMEN FROM NASOPHARYNGEAL STRUCTURE / Unknown Collection / Unknown 09/09/2019 3:34 PM CDT 09/09/2019 3:51 PM CDT Narrative [facility] - 09/09/2019 8:28 PM CDT This test is able to detect the following human coronaviruses: HKU1, NL63, 229E, and OC43. It will NOT detect 2019 Novel Coronavirus (2019-nCoV). If 2019-nCoV is suspected contact Infection Prevention for isolation and testing guidance. Asha Key DO LAB - MICROBIOLOGY O RDERABLES Performing Organization Address City/[facility] Co de Phone Number [facility] [address] [place], [place] [address], [facility] [phone] * CULTURE VRE (08/27/2019 4:50 AM SUPERVISOR POWER REACTOR) Only the most recent of5 resultswithin the time period is included. Culture Negative for vancomycin-resi stant Enterococci (VRE) KASSY 08/28/2019 1:14 PM SUPERVISOR POWER REACTOR [facility] Microbiology ENTIRE RECTUM / Unknown Collection / Unknown 08/27/2019 4:50 AM SUPERVISOR POWER REACTOR 08/27/2019 4:57 AM SUPERVISOR POWER REACTOR Danis Kirby MD LAB - MICROBIOLOGY O RDERABLES [facility] [address] [place] [address], [facility] [phone] * (ABNORMAL) CULTURE MRSA (08/27/2019 4:50 AM SUPERVISOR POWER REACTOR) Only the most recent of10 resultswithin the time period is included. Culture Growth of Staphylococcus aureus methicillin-resist ant (MRSA)(A) KASSY 08/28/2019 1:13 PM SUPERVISOR POWER REACTOR [facility] Microbiology ENTIRE RECTUM / Unknown Collection / Unknown 08/27/2019 4:50 AM SUPERVISOR POWER REACTOR 08/27/2019 4:57 AM SUPERVISOR POWER REACTOR Narrative [facility] - 08/28/2019 1:13 PM SUPERVISOR POWER REACTOR Methicillin-resistant Staphylococci (MRSA) are resistant to all currently available beta-lactam antibiotics with the exception of the newer cephalosporins with anti-MRSA activity. Contact precautions required. Danis Kirby MD LAB - MICROBIOLOGY O RDERABLES Performing Organization Address [facility] de Phone Number [facility] [address] [place] [address], [facility] [phone] * (ABNORMAL) PROCALCITONIN LEVEL (08/17/2019 6:18 PM SUPERVISOR POWER REACTOR) Procalcitonin 0.10(H) <0.10 ng/mL 08/17/2019 6:58 PM SUPERVISOR POWER REACTOR [facility] Blood BLOOD SPECIMEN / Unknown Lab Venipuncture / Unknown 08/17/2019 6:18 PM SUPERVISOR POWER REACTOR 08/17/2019 6:21 PM SUPERVISOR POWER REACTOR Narrative [facility] - 08/17/2019 6:58 PM SUPERVISOR POWER REACTOR The change in procalcitonin (PCT) concentration over time provides support in decision making on antibiotic discontinuation for suspected or confirmed septic patients. Follow-up samples should be tested once every 1-2 days based upon physician discretion taking into account the patient? s evolution and progress. Consider discontinuation of ??antibiotic therapy ??if the PCT current ??is <= 0.5 ng/mL or if the delta PCT is > 80%. ??Duration of antibiotics should not be determined solely on PCT; established guidelines for the indication should be followed. ? PCT peak: ??Highest observed PCT concentration ? PCT current: Most recent PCT concentration ? Calculate delta PCT using the following equation: ?Delta PCT ??= ?? PCT Peak ? PCT current ??X 100% ? PCT Peak The Change in Procalcitonin Calculator is available at [email or web address] ?? If clinical picture has not improved and PCT remains high, reevaluate and consider treatment failure or other causes. Mateo Díaz MD LAB - CHEM ISTRY ORDERABLES [facility] [address] [place] [id number] * (ABNORMAL) DRUG SCREEN TOX URINE PANEL (08/17/2019 5:02 PM SUPERVISOR POWER REACTOR) Only the most recent of2 resultswithin the time period is included. [facility] Amphetamines Screen Urine Not detected Not detected 08/17/2019 5:26 PM [facility] Barbiturates Screen Urine Not detected Not detected 08/17/2019 5:26 PM [facility] Benzodiazepines Screen Urine Not detected Not detected 08/17/2019 5:26 PM [facility] Cannabinoids Screen Urine Not detected Not detected 08/17/2019 5:26 PM [facility] Cocaine Screen Urine Not detected Not detected 08/17/2019 5:26 PM [facility] Fentanyl Urine Not detected Not detected 08/17/2019 5:26 PM [facility] Methadone Screen Urine Not detected Not detected 08/17/2019 5:26 PM [facility] Opiate Screen Urine Detected(A) Not detected 08/17/2019 5:26 PM [facility] Phencyclidine Screen Urine Not detected Not detected 08/17/2019 5:26 PM SUPERVISOR POWER REACTOR [facility] Urine URINE / Unknown Collection / Unknown 08/17/2019 5:02 PM SUPERVISOR POWER REACTOR 08/17/2019 5:05 PM SUPERVISOR POWER REACTOR Narrative [facility] - 08/17/2019 5:26 PM SUPERVISOR POWER REACTOR This drug screen is designed for MEDICAL purposes only. It is not to be used for legal purposes, including but not limited to worker's comp, police investigations, occupational issues, child custody, etc. ??Any positive result is only presumptive and must be confirmed with a separate confirmatory test ordered by the physician. Drug Screening Test Cutoff Values: AMPHETAMINES ?1000 ng/mL BARBITURATES ? 200 ng/mL BENZODIAZEPINES ?200 ng/mL CANNABINOIDS(THC) ?? 50 ng/mL COCAINE ?300 ng/mL FENTANYL ? 1 ng/mL METHADONE ?300 ng/mL OPIATES ?300 ng/mL PHENCYCLIDINE(PCP) ??25 ng/mL Mateo Díaz MD LAB - URIN E CHEMISTRY ORDERABLES Performing Organization Address [facility] Co de Phone Number [facility] [address] [place] [place] [address] * (ABNORMAL) C-REACTIVE PROTEIN (08/17/2019 2:10 PM SUPERVISOR POWER REACTOR) C-Reactive Protein 3.28(H) <=0.50 mg/dL 08/17/2019 4:39 PM [facility] Blood BLOOD SPECIMEN / Unknown Venipuncture / Unknown 08/17/2019 2:10 PM SUPERVISOR POWER REACTOR 08/17/2019 2:14 PM SUPERVISOR POWER REACTOR Narrative [facility] - 08/17/2019 4:39 PM SUPERVISOR POWER REACTOR Specimen Moderately Hemolyzed Mateo Díaz MD LAB - CHEM ISTRY ORDERABLES Performing Organization Address [facility] de Phone Number [facility] [address] [place] [address] * (ABNORMAL) D-DIMER (08/17/2019 12:55 PM SUPERVISOR POWER REACTOR) Only the most recent of2 resultswithin the time period is included. D-Dimer 2.21(H) 0.27 - 0.5 ug/mL FEU 08/17/2019 1:22 PM SUPERVISOR POWER REACTOR [facility] Blood BLOOD SPECIMEN / Unknown Venipuncture / Unknown 08/17/2019 12:55 PM SUPERVISOR POWER REACTOR 08/17/2019 1:02 PM SUPERVISOR POWER REACTOR Narrative [facility] - 08/17/2019 1:22 PM SUPERVISOR POWER REACTOR In the absence of clinical symptoms, a value less than or equal to 0.5 mcg/mL FEU significantly decreases the probability of PE/DVT (negative predictive value >95%). 1 mcg/ml FEU = 1 Fibrinogen Equivalent Unit (approximates 0.5 mcg/mL of D- dimer). Tera Herrmann DO LAB - COAGULATION OR DERABLES Performing Organization Address [facility] de Phone Number [facility] [address] [place], [place] [phone] * (ABNORMAL) PT-INR (08/17/2019 12:55 PM SUPERVISOR POWER REACTOR) Only the most recent of6 resultswithin the time period is included. Pathologist [facility] PT 16.3(H) 12.1 - 14.8 sec 08/17/2019 1:19 PM SUPERVISOR POWER REACTOR [facility] INR 1.3(H) 0.9 - 1.1 08/17/2019 1:19 PM SUPERVISOR POWER REACTOR [facility] Blood BLOOD SPECIMEN / Unknown Venipuncture / Unknown 08/17/2019 12:55 PM SUPERVISOR POWER REACTOR 08/17/2019 1:02 PM SUPERVISOR POWER REACTOR Narrative [facility] - 08/17/2019 1:19 PM SUPERVISOR POWER REACTOR Conventional Warfarin Anticoagulant Therapy: INR Reference Range: ??2.0-3.0 Intensive Warfarin Anticoagulant Therapy: INR Reference Range: ? 2.5-3.5 Tera Herrmann DO LAB - COAGULATION OR DERABLES Performing Organization Address [facility] de Phone Number [facility] [address] [place] [address] * Critical Care (08/17/2019 12:15 PM SUPERVISOR POWER REACTOR) Narrative Tear Herrmann, DO - 08/17/2019 12:15 PM SUPERVISOR POWER REACTOR Tera Herrmann DO ? 08/17/2019 ??8:25 PM Critical Care Performed by: Tera Herrmann DO Authorized by: Tera Herrmann DO Critical care provider statement: ??Critical care time (minutes): ??45 ??Critical care time was exclusive of: ??Separately billable procedures and treating other patients and teaching time ??Critical care was necessary to treat or prevent imminent or life-threatening deterioration of the following conditions: ??Sepsis, DRENCHER failure or compromise and circulatory failure ??Critical care was time spent personally by me on the following activities: ??Development of treatment plan with patient or surrogate, discussions with consultants, evaluation of patient's response to treatment, examination of patient, interpretation of cardiac output measurements, obtaining history from patient or surrogate, ordering and performing treatments and interventions, ordering and review of laboratory studies, ordering and review of radiographic studies, pulse oximetry, re-evaluation of patient's condition and review of old charts Tera Herrmann DO PROCEDURE/MINOR SURG ICAL ORDERABLES * CULTURE STOOL+ E COLI SHIGA-LIKE TOXIN (08/09/2019 10:01 PM SUPERVISOR POWER REACTOR) Culture No growth Salmonella, Shigella, Campylobacter, Escherichia coli O157:h7 or Yersinia KASSY 08/12/2019 12:23 PM SUPERVISOR POWER REACTOR [facility] Culture Negative Escherichia coli Shiga-like toxin (NM) KASSY 08/12/2019 12:23 PM SUPERVISOR POWER REACTOR [facility] Stool STOOL SPECIMEN / Unknown Collection / Unknown 08/09/2019 10:01 PM SUPERVISOR POWER REACTOR 08/10/2019 3:39 AM SUPERVISOR POWER REACTOR Kalia Frias MD LAB - MICROBIOLOGY O RDERABLES [facility] [address] [place], [place] [address], [facility] [phone] * ENDOSCOPY, COLON, SCREENING (08/03/2019 2:56 PM SUPERVISOR POWER REACTOR) Report Endoscopy POC _ Patient Name: Nita , ??Angelina Hernandez ?Procedure Date: 08/03/2019 2:56 PM ? Date of : 1965 ?Admit Type: Inpatient Age: 53 ? Room: ROOM 1 Gender: Female ?Attending MD: Dave Rockwell MD _ Procedure: ? Colonoscopy Indications: ? Anemia, Constipation Providers: ? Dave Rockwell MD, Liyah Triplett, VITALIY, Sandra Del Real, ? Ava Tobin CRNA (Anesthesia Staff) Referring MD: ?Shilpa Arzate (Referring MD) Medicines: ? Monitored Anesthesia Care Complications: ? No immediate complications. _ Procedure: ? Pre-Anesthesia Assessment: ? - Prior to the procedure, a History and Physical was ? performed, and patient medications and allergies were ? reviewed. The patient's tolerance of previous anesthesia ? was also reviewed. The risks and benefits of the procedure ? and the sedation options and risks were discussed with the ? patient. All questions were answered, and informed consent ? was obtained. Prior Anticoagulants: The patient has taken ? no previous anticoagulant or antiplatelet agents. ASA ? Grade Assessment: III - A patient with severe systemic ? disease. After reviewing the risks and benefits, the ? patient was deemed in satisfactory condition to undergo ? the procedure. ? After I obtained informed consent, the scope was passed ? under direct vision. Throughout the procedure, the ? patient's blood pressure, pulse, and oxygen saturations ? were monitored continuously. The -[id number] was ? introduced through the anus and advanced to the cecum, ? identified by appendiceal orifice and ileocecal valve. The ? colonoscopy was performed without difficulty. The patient ? tolerated the procedure well. The quality of the bowel ? preparation was fair. The ileocecal valve, appendiceal ? orifice, and rectum were photographed. ? Findings: ? The perianal and digital rectal examinations were normal. ? Multiple small-mouthed diverticula were found in the sigmoid colon. ? Internal hemorrhoids were found during retroflexion. The hemorrhoids ? were small. _ ? Impression: ?- Preparation of the colon was fair. ? - Diverticulosis in the sigmoid colon. ? - Internal hemorrhoids. ? - No specimens collected. Recommendation: ?- High fiber diet. ? - Continue present medications. ? - Repeat colonoscopy in 10 years for surveillance. ? - per inpatient GI notes ? Procedure Code(s): ? --- Professional --- ? 40060, Colonoscopy, flexible; diagnostic, including collection of ? specimen(s) by brushing or washing, when performed (separate procedure) ? --- Technical --- ? 96815, Colonoscopy, flexible; diagnostic, including collection of ? specimen(s) by brushing or washing, when performed (separate procedure) Diagnosis Code(s): ? --- Professional --- ? K64.8, Other hemorrhoids ? D64.9, Anemia, unspecified ? K59.00, Constipation, unspecified ? K57.30, Diverticulosis of large intestine without perforation or abscess ? without bleeding ? --- Technical --- ? K64.8, Other hemorrhoids ? D64.9, Anemia, unspecified ? K59.00, Constipation, unspecified ? K57.30, Diverticulosis of large intestine without perforation or abscess ? without bleeding CPT copyright 2017 [employer]. All rights reserved. The codes documented in this report are preliminary and upon strapper review may be revised to meet current compliance requirements. __ Dave Rockwell MD 08/03/2019 3:15:31 PM This report has been signed electronically. Number of Addenda: 0 Note Initiated On: 08/03/2019 2:56 PM Estimated Blood Loss: ? Estimated blood loss: none. [facility] 08/03/2019 2:56 PM SUPERVISOR POWER REACTOR Dave Rockwell MD GI PROCEDURE ORDERAB LES [facility] * GROSS + MICRO EXAM (STL) (08/03/2019 2:52 PM SUPERVISOR POWER REACTOR) Case Report Surgical Pathology Report ? Case: [id number] ? Authorizing Provider: ??Dave Rockwell MD ?Collected: ? 08/03/2019 02:52 PM ? Ordering Location: ? [facility] ? Received: ?08/04/2019 08:52 AM ? Pathologist: ? Michelle Edmond MD ? Specimens: ?? A) - Antrum Biopsy, antrum and body biopsy ? B) - Polyp Gastric, gastric polyp ? 08/05/2019 4:02 PM [facility] Final Diagnosis A. Stomach, antrum and body, biopsy: - Gastric antral-type and oxyntic-type mucosa with chronic and focal mild active inflammation - No Helicobacter pylori identified B. Gastric polyp, polypectomy: - Gastric fundic gland polyp SD/na 08/05/2019 4:02 PM [facility] Clinical History Generalized abdominal pain, anemia, and constipation 08/05/2019 4:02 PM [facility] Gross Description The specimen is received in two containers, each labeled with the patient? s name, Angelina Moya. The first container is additionally labeled, gastric biopsy, and consists of four pink-murdock tissue fragments , the largest which measures 4 x 2 x 1 mm and will be submitted entirely as A1. The second container is additionally labeled, gastric polyp, and consists of two polypoid, 4 mm pink-murdock tissue fragments which will be submitted entirely as B1 gm/na 08/05/2019 4:02 PM [facility] Microscopic Description B. The H&E sections of the gastric polyp reveal dilated fundic glands in the lamina propria, consistent with fundic gland polyp. There is no evidence of dysplasia or malignancy. SD/na 08/05/2019 4:02 PM [facility] Disclaimer All histochemical and/or immunohistochemical results are interpreted with controls that demonstrate appropriate staining reactions before reporting results. Note on use of immunocytochemistry reagents: This test was developed and its performance characteristic determined by [facility], Department of Laboratory Medicine. It has not been cleared or approved by the U.S. Food and Drug Administration (FDA). The FDA has determined that such clearance or approval is not necessary. The test is used for clinical purpose. It should not be regarded as investigational or for research. This laboratory is certified to perform high complexity testing. 08/05/2019 4:02 PM [facility] Embedded Images 08/05/2019 4:02 PM [facility] Pathology/Cytology GASTRIC ANTRAL BIOPSY SPECIMEN / Unknown 08/03/2019 2:52 PM SUPERVISOR POWER REACTOR 08/04/2019 8:52 AM SUPERVISOR POWER REACTOR Miscellaneous samples (specimen) GASTRIC POLYP / Unknown 08/03/2019 2:54 PM SUPERVISOR POWER REACTOR 08/04/2019 8:52 AM SUPERVISOR POWER REACTOR Dave Rockwell MD LAB - PATHOLOGY/CYTO LOGY ORDERABLES [facility] [address] [address] * EGD (08/03/2019 2:46 PM SUPERVISOR POWER REACTOR) Report Endoscopy POC _ Patient Name: Nita , ??Angelina Hernandez ?Procedure Date: 08/03/2019 2:46 PM ? Date of : 1965 ?Admit Type: Inpatient Age: 53 ? Room: ROOM 1 Gender: Female ?Attending MD: Dave Rockwell MD _ Procedure: ? Upper GI endoscopy Indications: ? Abdominal pain, Anemia Providers: ? Dave Rockwell MD, Liyah Triplett RN, Sandra Del Real, ? Ava Tobin CRNA (Anesthesia Staff) Referring MD: ?Shilpa Arzate (Referring MD) Medicines: ? Monitored Anesthesia Care Complications: ? No immediate complications. _ Procedure: ? Pre-Anesthesia Assessment: ? - Prior to the procedure, a History and Physical was ? performed, and patient medications and allergies were ? reviewed. The patient's tolerance of previous anesthesia ? was also reviewed. The risks and benefits of the procedure ? and the sedation options and risks were discussed with the ? patient. All questions were answered, and informed consent ? was obtained. Prior Anticoagulants: The patient has taken ? no previous anticoagulant or antiplatelet agents. ASA ? Grade Assessment: III - A patient with severe systemic ? disease. After reviewing the risks and benefits, the ? patient was deemed in satisfactory condition to undergo ? the procedure. ? After obtaining informed consent, the endoscope was passed ? under direct vision. Throughout the procedure, the ? patient's blood pressure, pulse, and oxygen saturations ? were monitored continuously. The [id number] SN [id number] was ? introduced through the mouth, and advanced to the second ? part of duodenum. The upper GI endoscopy was accomplished ? without difficulty. The patient tolerated the procedure ? well. ? Findings: ? The examined duodenum was normal. ? The entire examined stomach was normal. Biopsies were taken with a cold ? forceps for histology. ? Multiple small sessile polyps with no bleeding and no stigmata of recent ? bleeding were found in the gastric body. The polyp was removed with a ? cold biopsy forceps. Resection and retrieval were complete. ? The examined esophagus was normal. _ ? Impression: ?- Normal examined duodenum. ? - Normal stomach. Biopsied. ? - Multiple gastric polyps. Resected and retrieved. ? - Normal esophagus. Recommendation: ?- Resume previous diet. ? - Continue present medications. ? - Await pathology results. ? - No repeat upper endoscopy. ? Procedure Code(s): ? --- Professional --- ? 17388, Esophagogastroduo denoscopy, flexible, transoral; with biopsy, ? single or multiple ? --- Technical --- ? 75092, Esophagogastroduo denoscopy, flexible, transoral; with biopsy, ? single or multiple Diagnosis Code(s): ? --- Professional --- ? K31.7, Polyp of stomach and duodenum ? R10.9, Unspecified abdominal pain ? D64.9, Anemia, unspecified ? --- Technical --- ? K31.7, Polyp of stomach and duodenum ? R10.9, Unspecified abdominal pain ? D64.9, Anemia, unspecified CPT copyright 2017 [employer]. All rights reserved. The codes documented in this report are preliminary and upon strapper review may be revised to meet current compliance requirements. ___ Dave Rockwell MD 08/03/2019 3:13:17 PM This report has been signed electronically. Number of Addenda: 0 Note Initiated On: 08/03/2019 2:46 PM Estimated Blood Loss: ? Estimated blood loss: none. [facility] 08/03/2019 2:46 PM SUPERVISOR POWER REACTOR Dave Rockwell MD GI PROCEDURE ORDERAB LES [facility] * US ABDOMEN LIMITED (08/02/2019 10:10 AM SUPERVISOR POWER REACTOR) Only the most recent of2 resultswithin the time period is included. Anatomical Region Laterality Modality Abdomen Ultrasound 08/02/2019 10:3 8 AM SUPERVISOR POWER REACTOR Impressions 08/02/2019 10:39 AM SUPERVISOR POWER REACTOR The gallbladder is surgically absent. The common bile duct is normal in caliber. Reading Radiologist: Edelmira Sotelo MD on 08/02/2019 at 10:39 AM Narrative 08/02/2019 10:39 AM SUPERVISOR POWER REACTOR RIGHT UPPER QUADRANT ULTRASOUND INDICATION: Idiopathic acute pancreatitis. Abdominal pain. TECHNIQUE: Grayscale images of the right upper quadrant were performed. FINDINGS: The gallstone is surgically absent. The liver is normal in size and echotexture. The common bile duct measures 0.49cm. This is within normal limits. The visualized pancreas is echogenic. No discrete pancreatic mass is seen. The pancreatic duct does not appear abnormally dilated. The right kidney is of normal size, echogenicity and renal cortical thickness and measures 11.92 x 5.89 x 2.35 cm. Procedure Note Edelmira Sotelo MD - 08/02/2019 RIGHT UPPER QUADRANT ULTRASOUND INDICATION: Idiopathic acute pancreatitis. Abdominal pain. TECHNIQUE: Grayscale images of the right upper quadrant were performed. FINDINGS: The gallstone is surgically absent. The liver is normal in size and echotexture. The common bile duct measures 0.49cm. This is within normal limits. The visualized pancreas is echogenic. No discrete pancreatic mass is seen. The pancreatic duct does not appear abnormally dilated. The right kidney is of normal size, echogenicity and renal cortical thickness and measures 11.92 x 5.89 x 2.35 cm. IMPRESSION The gallbladder is surgically absent. The common bile duct is normal in caliber. Reading Radiologist: Edelmira Sotelo MD on 08/02/2019 at 10:39 AM Diogenes Garcia DO US ORDERABLES * (ABNORMAL) LDH BLOOD (08/01/2019 3:36 AM SUPERVISOR POWER REACTOR) LDH 369(H) 125 - 220 U/L 08/01/2019 10:38 AM SUPERVISOR POWER REACTOR [facility] Blood BLOOD SPECIMEN / Unknown Lab Venipuncture / Unknown 08/01/2019 3:36 AM SUPERVISOR POWER REACTOR 08/01/2019 4:12 AM SUPERVISOR POWER REACTOR Diogenes Garcia DO LAB - CHEMISTRY [facility] Organization Address City/State/ZIP Co de Phone Number [facility] [address] [place], [place] [phone] * (ABNORMAL) LIPID PROFILE (08/01/2019 3:36 AM SUPERVISOR POWER REACTOR) Only the most recent of2 resultswithin the time period is included. Cholesterol 100 <200 mg/dL 08/01/2019 3:16 PM SUPERVISOR POWER REACTOR [facility] Triglycerides 88 <150 mg/dL 08/01/2019 3:16 PM [facility] HDL Cholesterol 35(L) >40 mg/dL 0 3:16 PM SUPERVISOR POWER REACTOR [facility] LDL Calculated 47 <130 mg/dL 08/01/2019 3:16 PM SUPERVISOR POWER REACTOR [facility] VLDL Calculated 18 <=30 mg/dL 0 3:16 PM SUPERVISOR POWER REACTOR [facility] Chol HDL Ratio 2.9 <4.5 08/01/2019 3:16 PM SUPERVISOR POWER REACTOR [facility] LDL/HDL Ratio 1.4 <5.0 08/01/2019 3:16 PM SUPERVISOR POWER REACTOR [facility] Blood BLOOD SPECIMEN / Unknown Lab Venipuncture / Unknown 08/01/2019 3:36 AM SUPERVISOR POWER REACTOR 08/01/2019 4:12 AM SUPERVISOR POWER REACTOR Diogenes K Radha DO LAB - CHEMISTRY [facility] [address], [place] [phone] * NM MYOCARD PERFUSION SPECT STRESS AND REST (07/30/2019 10:54 AM SUPERVISOR POWER REACTOR) Anatomical Region Laterality Modality Chest Nuclear Digisoni cs 07/30/2019 9:59 AM SUPERVISOR POWER REACTOR Narrative Procedure Note Ben Emmanuel MD - 07/30/[address] [address] Nuclear Myocardial Perfusion Report Pat.Name: ANGELINA MOYA Pat.ID: [id number] .Date: 07/30/2019 Refer.MD: Nhung Brody Exam Time: 9:59:00 AM Study Type:Nuclear Myocardial Perfusion Scan Height: 172.72cm Weight: 107.73kg BSA: 2.2 m2 Age: 3 1965,53Y Sex: FEMALE Sonogrphr: YESENIA Martínez Pat. Stat.:Inpatient Room: [facility] Reason for Study: Chest pain, elevated troponin History / Clinical: Hypertension, Hyperlipidemia, Neck pain, IVC filter on 04/03/19 Procedures: Lexiscan Perfusion Scan Race: 2 Visit ID: [id number] Nurse: Priscilla Camarillo RN, BSN Risk Factors:Hypertension, IVC filter, asthma Supervised by:Katty Chung APRN ++++++++++++++++++++++++++++++++++++ SUMMARY: ++++++++++++++++++++++++++++++++++++ FINDINGS: Subdiaphragmatic activity is present on rest and stress images. Myocardial perfusion imaging reveals mildly to moderately decreased activity in the inferior wall and apex which is largely fixed between both imaging sets (the decreased perfusion is worse on rest images of the inferior wall and the apex on stress images). This region has normal contractility and the finding is most likely secondary to diaphragmatic attenuation. The remaining monteiro demonstrate normal perfusion. LV cavity size appears normal in both imaging sets. Gated SPECT images reveals normal LV systolic function with a calculated ejection fraction of 72%. SUMMARY: 1. Myocardial perfusion images do not demonstrate any evidence of clinically significant ischemia. 2. There is likely diaphragmatic attenuation artifact (see findings section for details). 3. Gated SPECT images demonstrate normal LV systolic function. ++++++++++++++++++++++++++++++++++++ STRESS: ++++++++++++++++++++++++++++++++++++ Baseline Vital Signs: Intervention Regadenoson Baseline ECG Prolonged QT, abnormal EKGPeak Dose 0.4 mg Rest HR 82 Atropine 0 Rest BP: 106/69 Duration 03:00 MT Int: 192 ms QRS Int: 82 ms QT Int: 497 deg Baseline Rhythm Normal sinus rhythm Stress Test Results: Target HR 143 Symptoms and Complications: Arrhythmias None Reason for Stopping Test: Protocol completed Stress Induced Symptoms: None Complications none Hemodynamics Normal heart rate response to pharmacological stress. ECG Findings: No ischemic S-T changes during lexiscan infusion. Signed 07/30/2019 11:45 AM Ben Emmanuel MD Nhung Brody BUTTERMAKER HELPER-CORPORATE SALES TRAINER NM ORDERABL ES * STRESS TEST LEXISCAN (NUCLEAR) (07/30/2019 9:56 AM SUPERVISOR POWER REACTOR) [facility] Signature Stress Test Summary For full formatted report, please see the report link in the order. Acquisition Time: 2019-07-30 ??09:56:58 Total Exercise Time: 00:02:01 Test Indications: troponin level elevated, chest p Medications: see digi Protocol: LEXISCAN ? Max HR: 109 BPM ??64% of ??Pred: 168 BPM Max BP: 115/073 mmHG Max Work Load: 1.0 METS Reason for Termination: per protocal Resting ECG: Normal Functional Capacity: Normal HR Response to Exercise: appropriate BP Resoonse to Exercise: normal resting BP - appropriate response Chest Pain: none Arrhythmias: none ST Changes: none Overall Impression: SEE FULL NUCLEAR REPORT Diagnosis: Reason for test-fatigue and weakness-hospit alization Lexiscan protocol Resting EKG-SR Lexiscan sx-none Testing ended due to protocol EKG changes-none See full nuclear study Confirmed by Ben Emmanuel ([id number]) on 07/31/2019 9:20:00 AM Attending Physician: Katty Chung APRN Referred By: ? Overread By: Ben Emmanuel [facility] STRESS 07/30/2019 9:56 AM SUPERVISOR POWER REACTOR 07/31/2019 9:20 AM SUPERVISOR POWER REACTOR Nhung Brody BUTTERMAKER HELPER-CORPORATE SALES TRAINER CARDIAC SER VICES ORDERABLES [facility] STRESS * HCG URINE QUALITATIVE (07/29/2019 1:23 AM SUPERVISOR POWER REACTOR) hCG Qualitative Urine Negative Negative 07/29/2019 1:33 AM SUPERVISOR POWER REACTOR [facility] Urine URINE / Unknown Collection / Unknown 07/29/2019 1:23 AM SUPERVISOR POWER REACTOR 07/29/2019 1:27 AM SUPERVISOR POWER REACTOR Alfredo Vazquez MD LAB - URINALYSIS OR DERABLES Performing Organization Address City/[facility]/ZIP Co de Phone Number [facility] [address] [place] [address] * INFLUENZA A+B ANTIGEN RAPID (05/09/2019 7:32 PM SUPERVISOR POWER REACTOR) Only the most recent of2 resultswithin the time period is included. Influenza A Antigen Negative Negative 05/09/2019 8:58 PM SUPERVISOR POWER REACTOR [facility] Influenza B Antigen Negative Negative 05/09/2019 8:58 PM SUPERVISOR POWER REACTOR [facility] Other SPECIMEN FROM NASAL FOSSAE / Unknown Collection / Unknown 05/09/2019 7:32 PM SUPERVISOR POWER REACTOR 05/09/2019 8:37 PM SUPERVISOR POWER REACTOR Narrative [facility] - 05/09/2019 8:58 PM SUPERVISOR POWER REACTOR ? The sensitivity of rapid tests for influenza A and B antigens, according to the published reports , ranges from 30-70% when compared to PCR and viral culture. For H1N1 influenza A, the sensitivity varies from 30-50%. For other influenza A strains, the sensitivity ranges from 50-70%. For influenza B virus, the sensitivity is approximately 30%. A negative result does not exclude influenza infection. ? False-positive (and true-negative) influenza test results are more likely to occur when disease prevalence is low, which is generally at the beginning and end of the influenza season. False-negative (and true-positive) influenza test results are more likely to occur when disease prevalence is high, which is typically at the height of the influenza season. Phillip Christy BUTTERMAKER HELPER-CORPORATE SALES TRAINER LAB - MICROBIOLOG Y ORDERABLES Performing Organization Address City/State/[facility] Co de Phone Number [facility] [address] [place] [address] * XR ANKLE RIGHT 3VW OR MORE (05/02/2019 3:45 PM SUPERVISOR POWER REACTOR) Only the most recent of2 resultswithin the time period is included. Anatomical Region Laterality Modality Lower Extremity Radiographic Estephanie ging 05/02/2019 4:35 PM SUPERVISOR POWER REACTOR Narrative 05/02/2019 4:36 PM SUPERVISOR POWER REACTOR 3 VIEWS RIGHT ANKLE Indication: Right ankle pain Findings: There is soft tissue swelling throughout the ankle. There is no displaced fracture or dislocation. There is no osseous destruction. Reading Radiologist: Willie Anderson MD on 05/02/2019 at 4:36 PM Procedure Note Willie Anderson MD - 05/02/2019 3 VIEWS RIGHT ANKLE Indication: Right ankle pain Findings: There is soft tissue swelling throughout the ankle. There is no displaced fracture or dislocation. There is no osseous destruction. Reading Radiologist: Willie Anderson MD on 05/02/2019 at 4:36 PM Sunny Sol MD DIAGNOSTIC IMAGING O RDERABLES * XR LUMBAR SPINE 2 OR 3VW (04/21/2019 12:30 PM CDT) Only the most recent of6 resultswithin the time period is included. Anatomical Region Laterality Modality Spine Radiographic Estephanie ging 04/21/2019 1:55 PM CDT Narrative 04/21/2019 2:46 PM CDT LUMBAR SPINE THREE VIEWS INDICATION: Low back pain. FINDINGS: Three views of the lumbar spine compared to 03/20/2019 show posterior fusion L2-L4 with bipedicle screws and metallic hardware. Intervertebral disc space devices at L2-3, L3-4 and L4-5 are still present. There is bony demineralization and mild degenerative changes. No acute fracture is present. Inferior vena cava filter is present. Neurostimulator device is redemonstrated. Surgical clips overlie the right upper quadrant of the abdomen. Edited by Eloina Renteria on 04/21/2019 1:59 PM Reading Radiologist: Arthur Austin MD on 04/21/2019 at 2:46 PM Procedure Note Arthur Austin MD - 04/21/2019 LUMBAR SPINE THREE VIEWS INDICATION: Low back pain. FINDINGS: Three views of the lumbar spine compared to 03/20/2019 show posterior fusion L2-L4 with bipedicle screws and metallic hardware. Intervertebral disc space devices at L2-3, L3-4 and L4-5 are still present. There is bony demineralization and mild degenerative changes. No acute fracture is present. Inferior vena cava filter is present. Neurostimulator device is redemonstrated. Surgical clips overlie the right upper quadrant of the abdomen. Edited by Eloina Renteria on 04/21/2019 1:59 PM Reading Radiologist: Arthur Austin MD on 04/21/2019 at 2:46 PM Phillip K Gamaliell BUTTERMAKER HELPER-CORPORATE SALES TRAINER DIAGNOSTIC IMAGIN G ORDERABLES * (ABNORMAL) VITAMIN D 25-HYDROXY (04/19/2019 5:30 AM CDT) Only the most recent of2 resultswithin the time period is included. Vitamin D, 25 Hydroxy 20.8(L) 30 - 100 ng/mL 04/19/2019 8:17 AM CDT [facility] Blood BLOOD SPECIMEN / Unknown 04/19/2019 5:30 AM CDT 04/19/2019 6:50 AM CDT Narrative [facility] - 04/19/2019 8:17 AM CDT Vitamin D Status: ?Deficiency ? <20 ? ng/mL ?Insufficiency ?? 20-30 ??ng/mL ?Sufficiency ? 30-100 ng/mL ?Toxicity ? >100 ?ng/mL Gena Alas MD LAB - CHEMISTRY MARKUS VALDEZ Performing Organization Address [facility] de Phone Number [facility] [address] [place] [address] * B-TYPE NATRIURETIC PEPTIDE (04/13/2019 2:02 PM CDT) BNP 88 <=100 pg/mL 04/13/2019 2:35 PM CDT [facility] Blood BLOOD SPECIMEN / Unknown Venipuncture / Unknown 04/13/2019 2:02 PM CDT 04/13/2019 2:11 PM CDT Naresh Shaffer MD LAB - CHEMISTRY MARKUS VALDEZ Performing Organization Address [facility] de Phone Number [facility] [address] [place] [address] * CT ANGIO BRAIN NECK STROKE (04/13/2019 1:06 PM CDT) Anatomical Region Laterality Modality Head Computed Tomogra phy 04/13/2019 1:50 PM CDT Impressions 04/13/2019 1:53 PM CDT NO HEMODYNAMICALLY SIGNIFICANT STENOSIS. CTA Brain: There is origin of the left posterior cerebral artery. The internal carotid arteries, middle cerebral arteries, anterior cerebral arteries, vertebral arteries, posterior cerebral arteries, basilar artery, and branch vessels of the [place] are widely patent without evidence of vessel stenosis or vessel occlusion. No intracranial aneurysms are identified. IMPRESSION: NO FLOW-LIMITING INTRACRANIAL ARTERIAL STENOSIS Reading Radiologist: Alyssia Molina MD on 04/13/2019 at 1:53 PM Narrative 04/13/2019 1:[address] angiography neck with contrast CT angiography head with contrast CT 3D Reconstruction Clinical Indication: Severe worsening headaches. Technique: Axial CT images from the transverse aortic arch through the cranial vertex were obtained following the administration of 80 cc Isovue-370 intravenous contrast. Multiplanar reformatted, maximum intensity projection, and 3D volume rendered reconstructions of the arterial vasculature of the neck and brain was performed on an independent workstation. Findings: CTA Neck: Indirect assessment of the distal portions of the bilateral internal carotid arteries relative to the proximal portions reveals no hemodynamically significant stenosis. There is wide patency of the common carotid, internal carotid, external carotid, and vertebral arteries. There is no evidence of vessel stenosis or vessel occlusion. Procedure Note Alyssia Molina MD - 04/13/2019 CT angiography neck with contrast CT angiography head with contrast CT 3D Reconstruction Clinical Indication: Severe worsening headaches. Technique: Axial CT images from the transverse aortic arch through the cranial vertex were obtained following the administration of 80 cc Isovue-370 intravenous contrast. Multiplanar reformatted, maximum intensity projection, and 3D volume rendered reconstructions of the arterial vasculature of the neck and brain was performed on an independent workstation. Findings: CTA Neck: Indirect assessment of the distal portions of the bilateral internal carotid arteries relative to the proximal portions reveals no hemodynamically significant stenosis. There is wide patency of the common carotid, internal carotid, external carotid, and vertebral arteries. There is no evidence of vessel stenosis or vessel occlusion. IMPRESSION NO HEMODYNAMICALLY SIGNIFICANT STENOSIS. CTA Brain: There is origin of the left posterior cerebral artery. The internal carotid arteries, middle cerebral arteries, anterior cerebral arteries, vertebral arteries, posterior cerebral arteries, basilar artery, and branch vessels of the [place] of [place] are widely patent without evidence of vessel stenosis or vessel occlusion. No intracranial aneurysms are identified. IMPRESSION: NO FLOW-LIMITING INTRACRANIAL ARTERIAL STENOSIS Reading Radiologist: Alyssia Molina MD on 04/13/2019 at 1:53 PM Naresh Shaffer MD CT ORDERABLES * (ABNORMAL) PT PTT PANEL (04/13/2019 12:29 PM CDT) Only the most recent of4 resultswithin the time period is included. PT 10.1 9.5 - 11.6 sec 04/13/2019 12:54 PM CDT [facility] INR 1.0 0.9 - 1.1 04/13/2019 12:54 PM CDT [facility] PTT <21.0(L) 21.0 - 32.0 sec 04/13/2019 12:54 PM CDT [facility] Blood BLOOD SPECIMEN / Unknown Venipuncture / Unknown 04/13/2019 12:29 PM CDT 04/13/2019 12:32 PM CDT Narrative [facility] - 04/13/2019 12:54 PM CDT Conventional Warfarin Anticoagulant Therapy: INR Reference Range: ??2.0-3.0 Intensive Warfarin Anticoagulant Therapy: INR Reference Range: ? 2.5-3.5 Heparin Therapeutic Range for PTT: 50.5 - 74.3 seconds. Naresh Shaffer MD LAB - COAGULATION OR DERABLES Performing Organization Address City/State/[facility] de Phone Number [facility] [address] [place] [address] * Critical Care (04/13/2019 11:51 AM CDT) Narrative Naresh Shaffer MD - 04/13/2019 11:51 AM CDT Naresh Shaffer MD ? 04/13/2019 ??5:23 PM Critical Care Performed by: Naresh Shaffer MD Authorized by: Naresh Shaffer MD Critical care provider statement: ??Critical care time (minutes): ??35 ??Critical care start time: ??04/13/2019 12:26 PM ??Critical care time was exclusive of: ??Separately billable procedures and treating other patients ??Critical care was necessary to treat or prevent imminent or life-threatening deterioration of the following conditions: Subarachnoid bleed. ??Critical care was time spent personally by me on the following activities: ??Development of treatment plan with patient or surrogate, evaluation of patient's response to treatment, obtaining history from patient or surrogate, review of old charts, re-evaluation of patient's condition, pulse oximetry, ordering and review of radiographic studies, ordering and review of laboratory studies, ordering and performing treatments and interventions and examination of patient ??I assumed direction of critical care for this patient from another provider in my specialty: no ?? Naresh Shaffer MD PROCEDURE/MINOR SURG ICAL ORDERABLES * (ABNORMAL) PTT (04/09/2019 10:09 AM CDT) Only the most recent of4 resultswithin the time period is included. PTT 53.1(H) 21.0 - 32.0 sec 04/09/2019 10:59 AM CDT [facility] Blood BLOOD SPECIMEN / Unknown Lab Venipuncture / Unknown 04/09/2019 10:09 AM CDT 04/09/2019 10:18 AM CDT Narrative [facility] - 04/09/2019 10:59 AM CDT Heparin Therapeutic Range for PTT: 50.5 - 74.3 seconds. Felix Sotelo MD LAB - COAGULATI ON ORDERABLES [facility] [address] [place] [address] * XR ABDOMEN KUB (04/07/2019 4:10 PM CDT) Anatomical Region Laterality Modality Abdomen Radiographic Estephanie ging 04/07/2019 4:26 PM CDT Impressions 04/07/2019 4:26 PM CDT Benign bowel gas pattern is present. Reading Radiologist: Edelmira Sotelo MD on 04/07/2019 at 4:26 PM Narrative 04/07/2019 4:26 PM CDT KUB INDICATION: Upper abdominal pain FINDINGS: Single view the abdomen and pelvis is obtained. Patient is undergone prior lumbar spinal fusion. Spinal stimulator is in place. There are surgical clips over the right groin consistent with prior hernia repair. Surgical clips are present in the right upper quadrant. Bowel gas pattern is benign. There is gas within the ascending through descending colon and in the rectosigmoid. No abnormally dilated small bowel loops are seen to suggest the presence of obstruction. Procedure Note Edelmira Sotelo MD - 04/07/2019 KUB INDICATION: Upper abdominal pain FINDINGS: Single view the abdomen and pelvis is obtained. Patient is undergone prior lumbar spinal fusion. Spinal stimulator is in place. There are surgical clips over the right groin consistent with prior hernia repair. Surgical clips are present in the right upper quadrant. Bowel gas pattern is benign. There is gas within the ascending through descending colon and in the rectosigmoid. No abnormally dilated small bowel loops are seen to suggest the presence of obstruction. IMPRESSION Benign bowel gas pattern is present. Reading Radiologist: Edelmira Sotelo MD on 04/07/2019 at 4:26 PM Joy Angel DO DIAGNOSTIC IMAGING O RDERABLES * VAS LEFT UE VENOUS DUPLEX (04/06/2019 2:05 PM CDT) Anatomical Region Laterality Modality Ultrasound 04/06/2019 1:29 PM CDT Narrative Procedure Note Arthur Austin MD - 04/06/2019 [place] [address] Upper Extremity Venous Ultrasound Report Pat.Name: NITA ANGELINA F Pat.ID: [id number] .Date: 04/06/2019 Refer.MD: joy Angel Exam Time: 1:29:00 PM Study Type:UE Venous Age: 3 1965,53Y Sex: FEMALE Sonogrphr: Megan Camacho RDMS, RVT Pat. Stat.:Inpatient Room: [facility] Reason for Study: Swelling -Arm/hand, left, Chest pain History / Clinical: Hypertension, Hyperlipidemia, Neck pain, IVC filter on 04/03/19 Procedures: Upper Extremity Venous - Left Race: 2 Visit ID: [id number] ++++++++++++++++++++++++++++++++++++ SUMMARY: ++++++++++++++++++++++++++++++++++++ left cephalic vein thrombus ++++++++++++++++++++++++++++++++++++ FINDINGS: ++++++++++++++++++++++++++++++++++++ Procedure: Venous duplex imaging of the left upper extremity, up to and including the internal jugular vein, was performed using color flow and spectral Doppler analysis. The contralateral subclavian vein was also examined. Lt Arm: There is acute, occlusive thrombus in the cephalic vein in the AC Fossa. All other vessels appear patent and compressible. The right subclavian vein demonstrated spontaneous and pulsatile flow. Comments: Technologist findings were given to RNKathleen, at 14:00 on 04/06/19. Signed 04/06/2019 02:29 PM Arthur Austin MD Joy Angel DO VASCULAR LAB ORDERAB LES * IR ANGIO SPINAL JOHN (04/05/2019 12:12 PM CDT) Anatomical Region Laterality Modality Spine Other Narrative 04/05/2019 12:18 PM CDT Dom Holman MD ? 04/05/2019 12:41 PM PROCEDURE PERFORMED: DIAGNOSTIC SPINAL ANGIOGRAM ?? DATE OF PROCEDURE: ??04/05/19 ?? INDICATION: ??The patient is a 53-year-old woman with history of acute onset of bilateral lower extremity weakness. ??Rule out vascular malformation of the spine ?? PREVIOUS COMPARISON STUDIES: ??None ?? SEDATION: No sedation was used. The patient was monitored for vitals signs and pulse ox throughout the procedure by a trained nurse specialist independent of those performing the procedure. ?? CONTRAST USED: 150 cc Visipaque ? FLUORO TIME: 12 minutes ?? PROCEDURE PERFORMED BY: ATTENDING PHYSICIAN: DOM HOLMAN MD ? Consent for the procedure was obtained from the patient following a discussion of its technique, benefits, and risks, including stroke, transient neurological deficits, blood vessel injury, and bleeding. Following sterile preparation and draping, fluoroscopic localization of the femoral head for a femoral approach, and injection of buffered 1% lidocaine for local anesthesia, a right femoral artery puncture was performed with 21-gauge micropuncture needle. A 5 [place] sheath was inserted over a [employer]ackerson wire and connected to a regulated pressurized infusion. A 5 [place] diagnostic catheter was advanced over the wire and was used to select the following vessels: ?? Bilateral vertebral arteries Bilateral [place] intercostal arteries Bilateral T6-T12 radicular arteries Bilateral L1-[id number] arteries Bilateral iliac arteries ?? LEFT VERTEBRAL ARTERY RUN: Distal subtraction angiography run was obtained in AP, lateral views. The left vertebral artery is unremarkable and patent in its cervical and intra- cranial segment. ?? RIGHT VERTEBRAL ARTERY RUN: DSA run was obtained in AP and lateral views. The right vertebral artery is unremarkable and patent in its cervical and intracranial segments. No fistula or vascular malformation is noted on this injection. LEFT SUPREME INTERCOSTAL ARTERY : The??left supreme intercostal radicular artery was selected and runs performed demonstrated a normal appearing artery with no evidence of AVM or AVF. ?? RIGHT SUPREME INTERCOSTAL ARTERY : The??right supreme intercostal radicular artery was selected and runs performed demonstrated a normal appearing artery with no evidence of AVM or AVF. ? LEFT T6 RADICULAR ARTERY : The??left T6??radicular artery was selected and runs performed demonstrated a normal appearing artery with no evidence of AVM or AVF. ?? RIGHT T6 RADICULAR ARTERY : The??right T6??radicular artery was selected and runs performed demonstrated a normal appearing artery with no evidence of AVM or AVF. ? LEFT T7 RADICULAR ARTERY : The??left T7??radicular artery was selected and runs performed demonstrated a normal appearing artery with no evidence of AVM or AVF. ?? RIGHT T7 RADICULAR ARTERY : The??right T7??radicular artery was selected and runs performed demonstrated a normal appearing artery with no evidence of AVM or AVF. ? LEFT T8 RADICULAR ARTERY : The??left T8??radicular artery was selected and runs performed demonstrated a normal appearing artery with no evidence of AVM or AVF. ?? RIGHT T8 RADICULAR ARTERY : The??right T8??radicular artery was selected and runs performed demonstrated a normal appearing artery with no evidence of AVM or AVF. ? LEFT T9 RADICULAR ARTERY : The??left T9??radicular artery was selected and runs performed demonstrated a normal appearing artery with no evidence of AVM or AVF. ?? RIGHT T9 RADICULAR ARTERY : The??right T9??radicular artery was selected and runs performed demonstrated a normal appearing artery with no evidence of AVM or AVF. ? RIGHT T10 RADICULAR ARTERY : The??right T10??radicular artery was selected and runs performed demonstrated a normal appearing artery with no evidence of AVM or AVF. ?? LEFT T10 RADICULAR ARTERY : The??left T10??radicular artery was selected and runs performed demonstrated a normal appearing artery with no evidence of AVM or AVF. ? RIGHT T11 RADICULAR ARTERY : The??right ??T11 ??radicular artery was selected and runs performed demonstrated a normal appearing artery with no evidence of AVM or AVF. ? LEFT T11 RADICULAR ARTERY : The??left T11??radicular artery was selected and runs performed demonstrated a normal appearing artery with no evidence of AVM or AVF. ? RIGHT T12 RADICULAR ARTERY : The??right T12??radicular artery was selected and runs performed demonstrated a normal appearing artery with no evidence of AVM or AVF. ? LEFT T12 RADICULAR ARTERY : The??left T 12??radicular artery was selected and runs performed demonstrated a normal appearing artery with no evidence of AVM or AVF. ?? RIGHT L1 RADICULAR ARTERY : The??right L1??radicular artery was selected and runs performed demonstrated a normal appearing artery with no evidence of AVM or AVF. ? LEFT L1 RADICULAR ARTERY : The??left L1??radicular artery was selected and runs performed demonstrated a normal appearing artery with no evidence of AVM or AVF. ? RIGHT L2 RADICULAR ARTERY : The??right L2 ??radicular artery was selected and runs performed demonstrated a normal appearing artery with no evidence of AVM or AVF. ? LEFT L2 RADICULAR ARTERY : The??left L2??radicular artery was selected and runs performed demonstrated a normal appearing artery with no evidence of AVM or AVF. ? RIGHT L3 RADICULAR ARTERY : The??right ??L3 ??radicular artery was selected and runs performed demonstrated a normal appearing artery with no evidence of AVM or AVF. ? LEFT L3 RADICULAR ARTERY : The??left L3??radicular artery was selected and runs performed demonstrated a normal appearing artery with no evidence of AVM or AVF. ? RIGHT L4 RADICULAR ARTERY : The??right ??L4 ??radicular artery was selected and runs performed demonstrated a normal appearing artery with no evidence of AVM or AVF. ? LEFT L4 RADICULAR ARTERY : The??left L4??radicular artery was selected and runs performed demonstrated a normal appearing artery with no evidence of AVM or AVF. LEFT ILIAC ARTERY RUN: The??left iliac??artery was selected and runs performed demonstrated a normal appearing artery with no evidence of AVM or AVF. RIGHT ILIAC ARTERY RUN: The??right iliac??artery was selected and runs performed demonstrated a normal appearing artery with no evidence of AVM or AVF. Arterial sheath was removed and hemostasis was obtained using Mynx closure device and manual compression. Patient tolerated the procedure well and had no immediate procedure related complications ? IMPRESSION: ? This is an unremarkable spinal angiogram. ??No dural fistula or vascular malformation is noted. ?? Lety Lizama BUTTERMAKER HELPER-CORPORATE SALES TRAINER IR ORDERABLES * VANCOMYCIN LEVEL RANDOM (04/04/2019 11:04 AM CDT) Vancomycin Random 7.8 ug/mL 04/04/2019 11:23 AM CDT [facility] Blood BLOOD SPECIMEN / Unknown Lab Venipuncture / Unknown 04/04/2019 11:04 AM CDT 04/04/2019 11:08 AM CDT Narrative [facility] - 04/04/2019 11:23 AM CDT No reference range available for random Vancomycin levels. All results interpreted by ordering physician. Karly Salazar MD LAB - CHEMISTRY ORD ERABLES [facility] [address] [id number] * IR IVC FILTER PLACEMENT (04/03/2019 2:57 PM CDT) Anatomical Region Laterality Modality Abdomen X-Ray Angiograph y 04/03/2019 5:47 PM CDT Impressions 04/03/2019 5:50 PM CDT ??SONOGRAPHICALLY AND FLUOROSCOPICALLY GUIDED PLACEMENT OF AN INFRARENAL IVC FILTER (LGM VENATECH) VIA THE INTERNAL JUGULAR VEIN, PERFORMED WITHOUT INCIDENT. Reading Radiologist: Damian Alan MD on 04/03/2019 at 5:50 PM Narrative 04/03/2019 5:50 PM CDT INFERIOR VENACAVOGRAM, IVC FILTER PLACEMENT VIA INTERNAL JUGULAR VEIN INDICATION: ??53-year-old with subdural spinal hematoma, pulmonary emboli. She is not felt to be a candidate for systemic anticoagulation. I spoke with Dr. Saeed, and she requested a permanent IVC filter. TECHNIQUE: ??The procedure was performed by Dr. Alan. The procedure was explained to Ken Nita, with discussion of the rationale for the placement. ??We discussed potential risks of pain, bleeding, vessel injury, and infection. She voiced her understanding and desire to proceed. Because of the amount of narcotics she has received, consent for the procedure was obtained, by the radiology nurse, from Zachary Moya, her .. ??She wished to proceed. The skin of the right neck was prepped in the usual manner, and sonography was used to identify the patent internal jugular vein. Patency was confirmed by compressibility of the vessel. A timeout was performed The skin and anticipated tract overlying the internal jugular vein was infiltrated with a buffered lidocaine solution. A 22-gauge needle was then passed, using direct, real-time sonographic guidance, into the right internal jugular vein. ??Once the needle tip was seen in the vessel lumen, there was return of blood. An 0.018 inch floppy tipped guidewire was then passed centrally, and a dermatotomy was made. A hard copy of the image was saved for the PACS An exchange was made for a 5 Faroese micropuncture system, and a guide wire was passed and directed into the inferior vena cava. ??Venography was performed to confirm venous patency and establish anatomic landmarks. Over a 0.035 inch floppy tipped guide, the introduction sheath of the LGM Venatech filter was positioned in the infrarenal IVC. The LGM Venatech ??filter was then deployed, under fluoroscopic guidance, in the infrarenal IVC. The sheath was partially withdrawn, and venography was performed for confirmation of the filter's position. The sheath was then fully withdrawn, and pressure was held over the access site for hemostasis. Once achieved, a dressing was applied. She tolerated procedure without apparent incident. ??She received 20 mL of Isovue-300 and 1.9 minutes of fluoroscopy. ??She received conscious sedation during the procedure, by the radiology nurse, under my direct supervision.She received 2 milligram of midazolam and 75 of fentanyl, IV FINDINGS: ??Normal venous landmarks were seen. There is a single IVC. Procedure Note Damian Alan MD - 04/03/2019 INFERIOR VENACAVOGRAM, IVC FILTER PLACEMENT VIA INTERNAL JUGULAR VEIN INDICATION: 53-year-old with subdural spinal hematoma, pulmonary emboli. She is not felt to be a candidate for systemic anticoagulation. I spoke with Dr. Saeed, and she requested a permanent IVC filter. TECHNIQUE: The procedure was performed by Dr. Alan. The procedure was explained to Ms. Moya, with discussion of the rationale for the placement. We discussed potential risks of pain, bleeding, vessel injury, and infection. She voiced her understanding and desire to proceed. Because of the amount of narcotics she has received, consent for the procedure was obtained, by the radiology nurse, from Zachary Moya, her .. She wished to proceed. The skin of the right neck was prepped in the usual manner, and sonography was used to identify the patent internal jugular vein. Patency was confirmed by compressibility of the vessel. A timeout was performed The skin and anticipated tract overlying the internal jugular vein was infiltrated with a buffered lidocaine solution. A 22-gauge needle was then passed, using direct, real-time sonographic guidance, into the right internal jugular vein. Once the needle tip was seen in the vessel lumen, there was return of blood. An 0.018 inch floppy tipped guidewire was then passed centrally, and a dermatotomy was made. A hard copy of the image was saved for the PACS An exchange was made for a 5 Faroese micropuncture system, and a guide wire was passed and directed into the inferior vena cava. Venography was performed to confirm venous patency and establish anatomic landmarks. Over a 0.035 inch floppy tipped guide, the introduction sheath of the LGM Venatech filter was positioned in the infrarenal IVC. The LGM Venatech filter was then deployed, under fluoroscopic guidance, in the infrarenal IVC. The sheath was partially withdrawn, and venography was performed for confirmation of the filter's position. The sheath was then fully withdrawn, and pressure was held over the access site for hemostasis. Once achieved, a dressing was applied. She tolerated procedure without apparent incident. She received 20 mL of Isovue-300 and 1.9 minutes of fluoroscopy. She received conscious sedation during the procedure, by the radiology nurse, under my direct supervision.She received 2 milligram of midazolam and 75 of fentanyl, IV FINDINGS: Normal venous landmarks were seen. There is a single IVC. IMPRESSION SONOGRAPHICALLY AND FLUOROSCOPICALLY GUIDED PLACEMENT OF AN INFRARENAL IVC FILTER (LGM VENATECH) VIA THE INTERNAL JUGULAR VEIN, PERFORMED WITHOUT INCIDENT. Reading Radiologist: Damian Alan MD on 04/03/2019 at 5:50 PM Shilpa Gandhi MD IR ORDERABLES * VAS BILAT LE VENOUS DUPLEX (04/03/2019 12:10 PM CDT) Anatomical Region Laterality Modality Ultrasound 04/03/2019 11:4 6 AM CDT Narrative 04/03/2019 4:28 PM CDT ?[facility] [place] ?[address] ?[place] ??[address] ? Lower Extremity Venous Ultrasound Report ? Pat.Name: ??ANGELINA MOYA ? Pat.ID: ?[id number] ? St.Date: ?? 04/03/2019 ? Refer.: ??shilpa Gandhi Exam Time: 11:46:00 AM ? Study Type:LE Venous ?Age: ??1965,53Y ? Sex: ? FEMALE ? Sonogrphr: Missy Devlin, [place], RVT ?? Pat. Stat.:Inpatient ? Room: ?3115 ? Reason for Study: + D-Dimer, Pulmonary Embolism History / Clinical: Hypertension, Hyperlipidemia Procedures: ??Lower Extremity Venous - Bilateral Race: ?2 ? Visit ID: ??[id number] ? ++++++++++++++++++++++++++++++++++++ SUMMARY: ++++++++++++++++++++++++++++++++++++ No evidence DVT at this time Reza Mccullough MD ++++++++++++++++++++++++++++++++++++ FINDINGS: ++++++++++++++++++++++++++++++++++++ Procedure: Venous duplex imaging of both lower extremities was ?performed ??using color flow and spectral Doppler analysis. Study Quality: This study is of adequate technical quality. Bilateral: All vessels seen appear patent and compressible. There was ?spontaneous ??and phasic flow seen in all the proximal major ?veins ??of both lower extremities. Appropriate augmentation ?with ??distal compression. Comments: No acute DVT seen. Signed 04/03/2019 04:28 PM Alem Mccullough MD Procedure Note Alem Mccullough MD - 04/03/2019 [place] [address] Lower Extremity Venous Ultrasound Report Pat.Name: ANGELINA MOYA Pat.ID: [id number] .Date: 04/03/2019 Refer.MD: shilpa Gandhi Exam Time: 11:46:00 AM Study Type:LE Venous Age: 4 1965,53Y Sex: FEMALE Sonogrphr: Missy Devlin, JIMMS, RVT Pat. Stat.:Inpatient Room: 3116 Reason for Study: + D-Dimer, Pulmonary Embolism History / Clinical: Hypertension, Hyperlipidemia Procedures: Lower Extremity Venous - Bilateral Race: 2 Visit ID: [id number] ++++++++++++++++++++++++++++++++++++ SUMMARY: ++++++++++++++++++++++++++++++++++++ No evidence DVT at this time Reza Mccullough MD ++++++++++++++++++++++++++++++++++++ FINDINGS: ++++++++++++++++++++++++++++++++++++ Procedure: Venous duplex imaging of both lower extremities was performed using color flow and spectral Doppler analysis. Study Quality: This study is of adequate technical quality. Bilateral: All vessels seen appear patent and compressible. There was spontaneous and phasic flow seen in all the proximal major veins of both lower extremities. Appropriate augmentation with distal compression. Comments: No acute DVT seen. Signed 04/03/2019 04:28 PM Alem Mccullough MD Shilpa Gandhi MD VASCULAR LAB ORDERABLES * FL DEBORA SURGERY (04/02/2019 7:17 PM CDT) Anatomical Region Laterality Modality Radiographic Estephanie ging 04/02/2019 8:32 PM CDT Narrative 04/02/2019 7:20 PM CDT Fluoroscopy Indication: Lumbar spine surgery. ??Severe back pain and lower extremity weakness. Fluoroscopy (6.9 seconds) was used for the examination. No radiologist was present or otherwise involved with the fluoroscopy. Reading Radiologist: Freddy Leija MD on 04/02/2019 at 8:33 PM Procedure Note Freddy Leija MD - 04/02/2019 Fluoroscopy Indication: Lumbar spine surgery. Severe back pain and lower extremity weakness. Fluoroscopy (6.9 seconds) was used for the examination. No radiologist was present or otherwise involved with the fluoroscopy. Reading Radiologist: Freddy Leija MD on 04/02/2019 at 8:33 PM Maicol Mcneil DO FLUOROSCOPY ORDERABL ES * CT LUMBAR SPINE WITH CONTRAST (04/02/2019 1:55 PM CDT) Only the most recent of2 resultswithin the time period is included. Anatomical Region Laterality Modality Spine Computed Tomogra phy 04/02/2019 2:36 PM CDT Impressions 04/02/2019 2:58 PM CDT Epidural process (hematoma versus abscess) creating severe stenosis and near total occlusion of the thecal sac at the L2-L3 level with very little contrast passing cranial to this location. Reading Radiologist: Willie Anderson MD on 04/02/2019 at 2:58 PM Narrative 04/02/2019 2:[address] CERVICAL SPINE POSTMYELOGRAM CT THORACIC SPINE POST MYELOGRAM CT LUMBAR SPINE POST MYELOGRAM INDICATION: Severe back pain, lower extremity weakness progressing to paraplegia FINDINGS: CT lumbar spine post myelogram: Previously described decompression/fusion changes in the lumbar region are redemonstrated. There are posterior laminectomies with posterior fusion hardware extending from L2 to L4. There is no evidence of hardware loosening or breakage. Previous laminectomies have been performed at L4-L5 however, the posterior hardware has been removed. A spinal stimulator enters the central canal at the T11-T12 level. The myelographic needle was placed at the L4-L5 level, therefore there is normal filling of the thecal sac from S1 to L3. Beginning at the L3 level and extending in a cranial fashion, there are ventral and dorsal extradural filling defects creating mass effect on the anterior and posterior (and eventually circumferential) thecal sac. This epidural process expands at the L2-L3 level and L2 level and the thecal sac is compressed to a pinpoint diameter. Only a trace of the injected 25 cc of Isovue contrast can be identified cranial to the L2 level (this despite drastic tilting of the table and repositioning of the patient to try to move contrast into the thoracic and cervical regions). These findings are consistent with an epidural process (hematoma and/or abscess) creating severe central canal stenosis at the thoracolumbar junction and just below. These images were reviewed with Dr. Mcneil (neurosurgery) at 2:15 PM on 04/02/2019. CT thoracic spine post myelogram: Central canal is very poorly assessed on the CT thoracic spine post myelogram due to the near total blockage of contrast at the L2-L3 level. Only a tiny amount of contrast is identified in the thoracic region. The spinal stimulator leads enter the central canal at the T11-T12 level and travel in a cranial fashion to the T7 level. Above the T7 level the thecal sac appears to be widely patent. From T7 to L2, the thecal sac is very poorly assessed. It should be noted that the central canal appears to be fairly patent at T8, T9 and T10 but there appears to be some degree of central canal stenosis relating to the epidural process at T11 and T12, again assessment is very limited at these levels. CT cervical spine postmyelogram: Assessment of the central canal in the cervical region is extremely limited due to almost no contrast making its way beyond the obstruction at the thoracolumbar junction. There is no compression or subluxation. There is no osseous destruction. Anterior decompression/fusion has been performed at C6-C7. The little contrast that is identified in the cervical central canal appears to lie in the anterior and posterior epidural spaces, and this is only a thin rim seen anteriorly and posteriorly. This would indicate that a severe stenosis in the cervical region is not present. Procedure Note Willie Anderson MD - 04/02/2019 CT CERVICAL SPINE POSTMYELOGRAM CT THORACIC SPINE POST MYELOGRAM CT LUMBAR SPINE POST MYELOGRAM INDICATION: Severe back pain, lower extremity weakness progressing to paraplegia FINDINGS: CT lumbar spine post myelogram: Previously described decompression/fusion changes in the lumbar region are redemonstrated. There are posterior laminectomies with posterior fusion hardware extending from L2 to L4. There is no evidence of hardware loosening or breakage. Previous laminectomies have been performed at L4-L5 however, the posterior hardware has been removed. A spinal stimulator enters the central canal at the T11-T12 level. The myelographic needle was placed at the L4-L5 level, therefore there is normal filling of the thecal sac from S1 to L3. Beginning at the L3 level and extending in a cranial fashion, there are ventral and dorsal extradural filling defects creating mass effect on the anterior and posterior (and eventually circumferential) thecal sac. This epidural process expands at the L2-L3 level and L2 level and the thecal sac is compressed to a pinpoint diameter. Only a trace of the injected 25 cc of Isovue contrast can be identified cranial to the L2 level (this despite drastic tilting of the table and repositioning of the patient to try to move contrast into the thoracic and cervical regions). These findings are consistent with an epidural process (hematoma and/or abscess) creating severe central canal stenosis at the thoracolumbar junction and just below. These images were reviewed with Dr. Mcneil (neurosurgery) at 2:15 PM on 04/02/2019. CT thoracic spine post myelogram: Central canal is very poorly assessed on the CT thoracic spine post myelogram due to the near total blockage of contrast at the L2-L3 level. Only a tiny amount of contrast is identified in the thoracic region. The spinal stimulator leads enter the central canal at the T11-T12 level and travel in a cranial fashion to the T7 level. Above the T7 level the thecal sac appears to be widely patent. From T7 to L2, the thecal sac is very poorly assessed. It should be noted that the central canal appears to be fairly patent at T8, T9 and T10 but there appears to be some degree of central canal stenosis relating to the epidural process at T11 and T12, again assessment is very limited at these levels. CT cervical spine postmyelogram: Assessment of the central canal in the cervical region is extremely limited due to almost no contrast making its way beyond the obstruction at the thoracolumbar junction. There is no compression or subluxation. There is no osseous destruction. Anterior decompression/fusion has been performed at C6-C7. The little contrast that is identified in the cervical central canal appears to lie in the anterior and posterior epidural spaces, and this is only a thin rim seen anteriorly and posteriorly. This would indicate that a severe stenosis in the cervical region is not present. IMPRESSION Epidural process (hematoma versus abscess) creating severe stenosis and near total occlusion of the thecal sac at the L2-L3 level with very little contrast passing cranial to this location. Reading Radiologist: Willie Anderson MD on 04/02/2019 at 2:58 PM Karly Salazar MD CT ORDERABLES * CT THORACIC SPINE WITH CONTRAST (04/02/2019 1:55 PM CDT) Anatomical Region Laterality Modality Spine Computed Tomogra phy 04/02/2019 2:36 PM CDT Impressions 04/02/2019 2:58 PM CDT Epidural process (hematoma versus abscess) creating severe stenosis and near total occlusion of the thecal sac at the L2-L3 level with very little contrast passing cranial to this location. Reading Radiologist: Willie Anderson MD on 04/02/2019 at 2:58 PM Narrative 04/02/2019 2:[address] CERVICAL SPINE POSTMYELOGRAM CT THORACIC SPINE POST MYELOGRAM CT LUMBAR SPINE POST MYELOGRAM INDICATION: Severe back pain, lower extremity weakness progressing to paraplegia FINDINGS: CT lumbar spine post myelogram: Previously described decompression/fusion changes in the lumbar region are redemonstrated. There are posterior laminectomies with posterior fusion hardware extending from L2 to L4. There is no evidence of hardware loosening or breakage. Previous laminectomies have been performed at L4-L5 however, the posterior hardware has been removed. A spinal stimulator enters the central canal at the T11-T12 level. The myelographic needle was placed at the L4-L5 level, therefore there is normal filling of the thecal sac from S1 to L3. Beginning at the L3 level and extending in a cranial fashion, there are ventral and dorsal extradural filling defects creating mass effect on the anterior and posterior (and eventually circumferential) thecal sac. This epidural process expands at the L2-L3 level and L2 level and the thecal sac is compressed to a pinpoint diameter. Only a trace of the injected 25 cc of Isovue contrast can be identified cranial to the L2 level (this despite drastic tilting of the table and repositioning of the patient to try to move contrast into the thoracic and cervical regions). These findings are consistent with an epidural process (hematoma and/or abscess) creating severe central canal stenosis at the thoracolumbar junction and just below. These images were reviewed with Dr. Mcneil (neurosurgery) at 2:15 PM on 04/02/2019. CT thoracic spine post myelogram: Central canal is very poorly assessed on the CT thoracic spine post myelogram due to the near total blockage of contrast at the L2-L3 level. Only a tiny amount of contrast is identified in the thoracic region. The spinal stimulator leads enter the central canal at the T11-T12 level and travel in a cranial fashion to the T7 level. Above the T7 level the thecal sac appears to be widely patent. From T7 to L2, the thecal sac is very poorly assessed. It should be noted that the central canal appears to be fairly patent at T8, T9 and T10 but there appears to be some degree of central canal stenosis relating to the epidural process at T11 and T12, again assessment is very limited at these levels. CT cervical spine postmyelogram: Assessment of the central canal in the cervical region is extremely limited due to almost no contrast making its way beyond the obstruction at the thoracolumbar junction. There is no compression or subluxation. There is no osseous destruction. Anterior decompression/fusion has been performed at C6-C7. The little contrast that is identified in the cervical central canal appears to lie in the anterior and posterior epidural spaces, and this is only a thin rim seen anteriorly and posteriorly. This would indicate that a severe stenosis in the cervical region is not present. Procedure Note Willie Anderson MD - 04/02/2019 CT CERVICAL SPINE POSTMYELOGRAM CT THORACIC SPINE POST MYELOGRAM CT LUMBAR SPINE POST MYELOGRAM INDICATION: Severe back pain, lower extremity weakness progressing to paraplegia FINDINGS: CT lumbar spine post myelogram: Previously described decompression/fusion changes in the lumbar region are redemonstrated. There are posterior laminectomies with posterior fusion hardware extending from L2 to L4. There is no evidence of hardware loosening or breakage. Previous laminectomies have been performed at L4-L5 however, the posterior hardware has been removed. A spinal stimulator enters the central canal at the T11-T12 level. The myelographic needle was placed at the L4-L5 level, therefore there is normal filling of the thecal sac from S1 to L3. Beginning at the L3 level and extending in a cranial fashion, there are ventral and dorsal extradural filling defects creating mass effect on the anterior and posterior (and eventually circumferential) thecal sac. This epidural process expands at the L2-L3 level and L2 level and the thecal sac is compressed to a pinpoint diameter. Only a trace of the injected 25 cc of Isovue contrast can be identified cranial to the L2 level (this despite drastic tilting of the table and repositioning of the patient to try to move contrast into the thoracic and cervical regions). These findings are consistent with an epidural process (hematoma and/or abscess) creating severe central canal stenosis at the thoracolumbar junction and just below. These images were reviewed with Dr. Mcneil (neurosurgery) at 2:15 PM on 04/02/2019. CT thoracic spine post myelogram: Central canal is very poorly assessed on the CT thoracic spine post myelogram due to the near total blockage of contrast at the L2-L3 level. Only a tiny amount of contrast is identified in the thoracic region. The spinal stimulator leads enter the central canal at the T11-T12 level and travel in a cranial fashion to the T7 level. Above the T7 level the thecal sac appears to be widely patent. From T7 to L2, the thecal sac is very poorly assessed. It should be noted that the central canal appears to be fairly patent at T8, T9 and T10 but there appears to be some degree of central canal stenosis relating to the epidural process at T11 and T12, again assessment is very limited at these levels. CT cervical spine postmyelogram: Assessment of the central canal in the cervical region is extremely limited due to almost no contrast making its way beyond the obstruction at the thoracolumbar junction. There is no compression or subluxation. There is no osseous destruction. Anterior decompression/fusion has been performed at C6-C7. The little contrast that is identified in the cervical central canal appears to lie in the anterior and posterior epidural spaces, and this is only a thin rim seen anteriorly and posteriorly. This would indicate that a severe stenosis in the cervical region is not present. IMPRESSION Epidural process (hematoma versus abscess) creating severe stenosis and near total occlusion of the thecal sac at the L2-L3 level with very little contrast passing cranial to this location. Reading Radiologist: Willie Anderson MD on 04/02/2019 at 2:58 PM Karly Salazar MD CT ORDERABLES * CT CERVICAL SPINE WITH CONTRAST (04/02/2019 1:54 PM CDT) Anatomical Region Laterality Modality Spine Computed Tomogra phy 04/02/2019 2:36 PM CDT Impressions 04/02/2019 2:58 PM CDT Epidural process (hematoma versus abscess) creating severe stenosis and near total occlusion of the thecal sac at the L2-L3 level with very little contrast passing cranial to this location. Reading Radiologist: Willie Anderson MD on 04/02/2019 at 2:58 PM Narrative 04/02/2019 2:[address] CERVICAL SPINE POSTMYELOGRAM CT THORACIC SPINE POST MYELOGRAM CT LUMBAR SPINE POST MYELOGRAM INDICATION: Severe back pain, lower extremity weakness progressing to paraplegia FINDINGS: CT lumbar spine post myelogram: Previously described decompression/fusion changes in the lumbar region are redemonstrated. There are posterior laminectomies with posterior fusion hardware extending from L2 to L4. There is no evidence of hardware loosening or breakage. Previous laminectomies have been performed at L4-L5 however, the posterior hardware has been removed. A spinal stimulator enters the central canal at the T11-T12 level. The myelographic needle was placed at the L4-L5 level, therefore there is normal filling of the thecal sac from S1 to L3. Beginning at the L3 level and extending in a cranial fashion, there are ventral and dorsal extradural filling defects creating mass effect on the anterior and posterior (and eventually circumferential) thecal sac. This epidural process expands at the L2-L3 level and L2 level and the thecal sac is compressed to a pinpoint diameter. Only a trace of the injected 25 cc of Isovue contrast can be identified cranial to the L2 level (this despite drastic tilting of the table and repositioning of the patient to try to move contrast into the thoracic and cervical regions). These findings are consistent with an epidural process (hematoma and/or abscess) creating severe central canal stenosis at the thoracolumbar junction and just below. These images were reviewed with Dr. Mcneil (neurosurgery) at 2:15 PM on 04/02/2019. CT thoracic spine post myelogram: Central canal is very poorly assessed on the CT thoracic spine post myelogram due to the near total blockage of contrast at the L2-L3 level. Only a tiny amount of contrast is identified in the thoracic region. The spinal stimulator leads enter the central canal at the T11-T12 level and travel in a cranial fashion to the T7 level. Above the T7 level the thecal sac appears to be widely patent. From T7 to L2, the thecal sac is very poorly assessed. It should be noted that the central canal appears to be fairly patent at T8, T9 and T10 but there appears to be some degree of central canal stenosis relating to the epidural process at T11 and T12, again assessment is very limited at these levels. CT cervical spine postmyelogram: Assessment of the central canal in the cervical region is extremely limited due to almost no contrast making its way beyond the obstruction at the thoracolumbar junction. There is no compression or subluxation. There is no osseous destruction. Anterior decompression/fusion has been performed at C6-C7. The little contrast that is identified in the cervical central canal appears to lie in the anterior and posterior epidural spaces, and this is only a thin rim seen anteriorly and posteriorly. This would indicate that a severe stenosis in the cervical region is not present. Procedure Note Willie Anderson MD - 04/02/2019 CT CERVICAL SPINE POSTMYELOGRAM CT THORACIC SPINE POST MYELOGRAM CT LUMBAR SPINE POST MYELOGRAM INDICATION: Severe back pain, lower extremity weakness progressing to paraplegia FINDINGS: CT lumbar spine post myelogram: Previously described decompression/fusion changes in the lumbar region are redemonstrated. There are posterior laminectomies with posterior fusion hardware extending from L2 to L4. There is no evidence of hardware loosening or breakage. Previous laminectomies have been performed at L4-L5 however, the posterior hardware has been removed. A spinal stimulator enters the central canal at the T11-T12 level. The myelographic needle was placed at the L4-L5 level, therefore there is normal filling of the thecal sac from S1 to L3. Beginning at the L3 level and extending in a cranial fashion, there are ventral and dorsal extradural filling defects creating mass effect on the anterior and posterior (and eventually circumferential) thecal sac. This epidural process expands at the L2-L3 level and L2 level and the thecal sac is compressed to a pinpoint diameter. Only a trace of the injected 25 cc of Isovue contrast can be identified cranial to the L2 level (this despite drastic tilting of the table and repositioning of the patient to try to move contrast into the thoracic and cervical regions). These findings are consistent with an epidural process (hematoma and/or abscess) creating severe central canal stenosis at the thoracolumbar junction and just below. These images were reviewed with Dr. Mcneil (neurosurgery) at 2:15 PM on 04/02/2019. CT thoracic spine post myelogram: Central canal is very poorly assessed on the CT thoracic spine post myelogram due to the near total blockage of contrast at the L2-L3 level. Only a tiny amount of contrast is identified in the thoracic region. The spinal stimulator leads enter the central canal at the T11-T12 level and travel in a cranial fashion to the T7 level. Above the T7 level the thecal sac appears to be widely patent. From T7 to L2, the thecal sac is very poorly assessed. It should be noted that the central canal appears to be fairly patent at T8, T9 and T10 but there appears to be some degree of central canal stenosis relating to the epidural process at T11 and T12, again assessment is very limited at these levels. CT cervical spine postmyelogram: Assessment of the central canal in the cervical region is extremely limited due to almost no contrast making its way beyond the obstruction at the thoracolumbar junction. There is no compression or subluxation. There is no osseous destruction. Anterior decompression/fusion has been performed at C6-C7. The little contrast that is identified in the cervical central canal appears to lie in the anterior and posterior epidural spaces, and this is only a thin rim seen anteriorly and posteriorly. This would indicate that a severe stenosis in the cervical region is not present. IMPRESSION Epidural process (hematoma versus abscess) creating severe stenosis and near total occlusion of the thecal sac at the L2-L3 level with very little contrast passing cranial to this location. Reading Radiologist: Willie Anderson MD on 04/02/2019 at 2:58 PM Karly Salazar MD CT ORDERABLES * FL FLUORO MYELOGRAM 2 OR 3 REGIONS (04/02/2019 1:52 PM CDT) Anatomical Region Laterality Modality Spine Radio Fluoroscop y 04/02/2019 2:59 PM CDT Impressions 04/02/2019 3:00 PM CDT Successful fluoroscopic guided cervical, thoracic and lumbar myelogram as described above Reading Radiologist: Willie Anderson MD on 04/02/2019 at 3:00 PM Narrative 04/02/2019 3:00 PM CDT FLUOROSCOPIC CERVICAL, THORACIC AND LUMBAR MYELOGRAM Indication: Back pain, lumbar radiculopathy, progressing into paraplegia Procedure/Findings: The patient's medications were reviewed before the procedure. Written informed consent was obtained. Following sterile prep and administration of 1% Lidocaine local anesthesia the thecal sac at L4-L5 was accessed under fluoroscopic guidance with a 22 gauge needle. Approximately 25 cc of Isovue-M 200 was injected intrathecally The needle was removed and hemostasis achieved immediately after. The patient was transferred to CT scan following the procedure in stable condition. The CT myelogram study will be read separately. Please see the separate CT post myelogram cervical spine, thoracic spine and lumbar spine reports for significant findings. Total fluoroscopy time: 2.5 minutes, 13 spot fluoroscopic images were obtained Procedure Note Willie Anderson MD - 04/02/2019 FLUOROSCOPIC CERVICAL, THORACIC AND LUMBAR MYELOGRAM Indication: Back pain, lumbar radiculopathy, progressing into paraplegia Procedure/Findings: The patient's medications were reviewed before the procedure. Written informed consent was obtained. Following sterile prep and administration of 1% Lidocaine local anesthesia the thecal sac at L4-L5 was accessed under fluoroscopic guidance with a 22 gauge needle. Approximately 25 cc of Isovue-M 200 was injected intrathecally The needle was removed and hemostasis achieved immediately after. The patient was transferred to CT scan following the procedure in stable condition. The CT myelogram study will be read separately. Please see the separate CT post myelogram cervical spine, thoracic spine and lumbar spine reports for significant findings. Total fluoroscopy time: 2.5 minutes, 13 spot fluoroscopic images were obtained IMPRESSION Successful fluoroscopic guided cervical, thoracic and lumbar myelogram as described above Reading Radiologist: Willie Anderson MD on 04/02/2019 at 3:00 PM Karly Salazar MD FLUOROSCOPY ORDERAB LES * BLOOD TYPE VERIFICATION (04/02/2019 9:50 AM CDT) ABO AB 04/02/2019 4:12 PM CDT [facility] Rh Type Negative 04/02/2019 4:12 PM CDT [facility] Blood Bank BLOOD SPECIMEN / Unknown Lab Venipuncture / Unknown 04/02/2019 9:50 AM CDT 04/02/2019 3:47 PM CDT Libby Grewal MD LAB - BLOOD BANK ORD ERABLES [facility] [address] [place] [address] [phone] * (ABNORMAL) LACTIC ACID BLOOD POC VENOUS (03/31/2019 1:48 PM CDT) Pathologist [facility] Lactate iSTAT Venous POCT 3.28(H) 0.70 - 2.10 mmol/L 03/31/2019 2:10 PM CDT [facility] Sample iSTAT EARL 03/31/2019 2:10 PM CDT [facility] Blood BLOOD SPECIMEN / Unknown 03/31/2019 1:48 PM CDT 03/31/2019 2:10 PM CDT Nicole Valladares MD LAB - POINT OF CARE ORDERABLES [facility] [address] [id number] * CT CHEST PE (03/31/2019 1:01 PM CDT) Anatomical Region Laterality Modality Chest Computed Tomogra phy 03/31/2019 1:02 PM CDT Impressions 03/31/2019 1:17 PM CDT Acute pulmonary embolus left lower lobe branches. This critical value discussed with Dr. Valladares 1:15 PM 03/31/2019. Reading Radiologist: Pratik Linda MD on 03/31/2019 at 1:17 PM Narrative 03/31/2019 1:[address] PE Protocol Clinical Indication: Chest pain substernal diaphoresis lightheadedness abdominal pain Technique: The pulmonary embolus protocol was utilized. Axial CT images from the lung apices to the lung bases were obtained following Isovue 370 80cc intravenous contrast administration. Multiplanar maximum intensity projection reconstructions were created on an independent workstation. Findings: Upper abdomen unremarkable. Heart size is normal. No aortic aneurysm or dissection. Subacute segmental pulmonary embolus in a left lower lobe anterior branch image 63 series 5. Additional pulmonary embolus in a left lower lobe branch more inferiorly. No consolidation or pneumothorax or pleural effusion. Left lower lobe calcified granuloma. Procedure Note Pratik Linda MD - 03/31/2019 CT PE Protocol Clinical Indication: Chest pain substernal diaphoresis lightheadedness abdominal pain Technique: The pulmonary embolus protocol was utilized. Axial CT images from the lung apices to the lung bases were obtained following Isovue 370 80cc intravenous contrast administration. Multiplanar maximum intensity projection reconstructions were created on an independent workstation. Findings: Upper abdomen unremarkable. Heart size is normal. No aortic aneurysm or dissection. Subacute segmental pulmonary embolus in a left lower lobe anterior branch image 63 series 5. Additional pulmonary embolus in a left lower lobe branch more inferiorly. No consolidation or pneumothorax or pleural effusion. Left lower lobe calcified granuloma. IMPRESSION Acute pulmonary embolus left lower lobe branches. This critical value discussed with Dr. Valladares 1:15 PM 03/31/2019. Reading Radiologist: Pratik Linda MD on 03/31/2019 at 1:17 PM Nicole Valladares MD CT ORDERABLES * Critical Care (03/31/2019 8:59 AM CDT) Narrative Nicole Valladares MD - 03/31/2019 8:59 AM CDT Nicole Valladares MD ? 03/31/2019 ??6:01 PM Critical Care Performed by: Nicole Valladares MD Authorized by: Nicole Valladares MD Critical care provider statement: ??Critical care time (minutes): ??45 ??Critical care time was exclusive of: ??Separately billable procedures and treating other patients ??Critical care was necessary to treat or prevent imminent or life-threatening deterioration of the following conditions: ??Respiratory failure and sepsis ??Critical care was time spent personally by me on the following activities: ??Development of treatment plan with patient or surrogate, discussions with consultants, evaluation of patient's response to treatment, examination of patient, interpretation of cardiac output measurements, obtaining history from patient or surrogate, ordering and performing treatments and interventions, ordering and review of laboratory studies, ordering and review of radiographic studies, pulse oximetry, re-evaluation of patient's condition and review of old charts ??I assumed direction of critical care for this patient from another provider in my specialty: no ?? Nicole Valladares MD PROCEDURE/MINOR MISHA GICAL ORDERABLES * FL GUIDANCE FOR NEEDLE PLACEMENT (03/25/2019 5:53 PM CDT) Anatomical Region Laterality Modality Abdomen, Lung, Spine, Breast Rad iographic Imaging 03/25/2019 7:06 PM CDT Impressions 03/25/2019 7:11 PM CDT Uneventful fluoroscopically guided instillation of steroid and bupivacaine into the right hip joint. Reading Radiologist: Damian Alan MD on 03/25/2019 at 7:11 PM Narrative 03/25/2019 7:11 PM CDT RIGHT HIP INJECTION INDICATION: 53-year-old woman with right hip pain TECHNIQUE: The procedure was performed by Dr. Alan. The procedure was explained to Ms. Moya, and we discussed potential risks of pain, bleeding infection. She asked appropriate questions, which I answered to the best of my ability. She wished to proceed. The position of the palpable right common femoral artery was marked and the skin site over the base of the femoral neck was also marked. The skin was prepped and draped in the usual manner. A timeout was performed. The skin and anticipated tract were infiltrated with a lidocaine solution. A 22-gauge needle was then directed, using fluoroscopic guidance, to the joint. An injection of contrast was made, confirming the position of the needle to be within the synovial cavity. 80 mg of Kenalog and 5 cc of 0.25% bupivacaine were then injected. The needle was withdrawn. A dressing was applied. She stated she tolerated the procedure without incident. She received 0.7 of fluoroscopy and about 1.5 cc of Isovue-300 Procedure Note Damian Alan MD - 03/25/2019 RIGHT HIP INJECTION INDICATION: 53-year-old woman with right hip pain TECHNIQUE: The procedure was performed by Dr. Alan. The procedure was explained to Ms. Moya, and we discussed potential risks of pain, bleeding infection. She asked appropriate questions, which I answered to the best of my ability. She wished to proceed. The position of the palpable right common femoral artery was marked and the skin site over the base of the femoral neck was also marked. The skin was prepped and draped in the usual manner. A timeout was performed. The skin and anticipated tract were infiltrated with a lidocaine solution. A 22-gauge needle was then directed, using fluoroscopic guidance, to the joint. An injection of contrast was made, confirming the position of the needle to be within the synovial cavity. 80 mg of Kenalog and 5 cc of 0.25% bupivacaine were then injected. The needle was withdrawn. A dressing was applied. She stated she tolerated the procedure without incident. She received 0.7 of fluoroscopy and about 1.5 cc of Isovue-300 IMPRESSION Uneventful fluoroscopically guided instillation of steroid and bupivacaine into the right hip joint. Reading Radiologist: Damian Alan MD on 03/25/2019 at 7:11 PM Juan Leija DO FLUOROSCOPY JULIETTEE JOSÉ MIGUEL * CT SACROILIAC JOINT BILAT INJECT (03/23/2019 2:26 PM CDT) Anatomical Region Laterality Modality Computed Tomogra phy 03/23/2019 3:15 PM CDT Impressions 03/23/2019 3:[address] guided right and left sacroiliac joint steroid injection as described above. Reading Radiologist: Alyssia Molina MD on 03/23/2019 at 3:16 PM Narrative 03/23/2019 3:[address] guided right and left sacroiliac joint steroid injection Clinical Indication: Severe bilateral sacroiliac joint pain, pelvic pain and limited range of motion of the pelvis. Severe acute bilateral sacroiliitis. Physician: Dr. Molina. Complications: None. Sedation: None. Procedure/findings: The risks and benefits of the procedure were explained to the patient. The risks include but are not limited to bleeding, infection, allergy, pain, failed procedure, and nondiagnostic result. The patient was given ample time to ask questions. Following this both written and verbal informed consent was obtained. The patient was placed prone on the CT table and the inferior aspect of the right and left sacroiliac joints was localized with CT guidance. A suitable skin entry site was marked. Following sterile prep and administration of 1% lidocaine local anesthesia, a 22-gauge 3.5 inch needle was advanced into the inferior aspect of both the right and left sacroiliac joints under CT guidance. A 1 cc Isovue-300 injection into each internal confirmed intra-articular position both the needles. Following this a mixture containing 80 mg Kenalog and 3 cc 0.25% Marcaine was injected into each sacroiliac joint. Transient hip pain was noted during the injection which is a normal finding in this procedure. This resolved spontaneously. The needle was removed and hemostasis achieved immediately after. The patient tolerated the procedure well. Procedure Note Alyssia Molina MD - 03/23/2019 CT guided right and left sacroiliac joint steroid injection Clinical Indication: Severe bilateral sacroiliac joint pain, pelvic pain and limited range of motion of the pelvis. Severe acute bilateral sacroiliitis. Physician: Dr. Molina. Complications: None. Sedation: None. Procedure/findings: The risks and benefits of the procedure were explained to the patient. The risks include but are not limited to bleeding, infection, allergy, pain, failed procedure, and nondiagnostic result. The patient was given ample time to ask questions. Following this both written and verbal informed consent was obtained. The patient was placed prone on the CT table and the inferior aspect of the right and left sacroiliac joints was localized with CT guidance. A suitable skin entry site was marked. Following sterile prep and administration of 1% lidocaine local anesthesia, a 22-gauge 3.5 inch needle was advanced into the inferior aspect of both the right and left sacroiliac joints under CT guidance. A 1 cc Isovue-300 injection into each internal confirmed intra-articular position both the needles. Following this a mixture containing 80 mg Kenalog and 3 cc 0.25% Marcaine was injected into each sacroiliac joint. Transient hip pain was noted during the injection which is a normal finding in this procedure. This resolved spontaneously. The needle was removed and hemostasis achieved immediately after. The patient tolerated the procedure well. IMPRESSION Successful CT guided right and left sacroiliac joint steroid injection as described above. Reading Radiologist: Alyssia Molina MD on 03/23/2019 at 3:16 PM Alicia Mccullough [employer] CT ORDERABLE S * FL FLUORO MYELOGRAM LUMBAR (03/22/2019 10:57 AM CDT) Anatomical Region Laterality Modality Spine Radio Fluoroscop y Cerebral spinal fluid 03/22/2019 11:41 AM CDT Impressions 03/22/2019 11:42 AM CDT Successful fluoroscopic guided lumbar myelogram as described above Reading Radiologist: Willie Anderson MD on 03/22/2019 at 11:42 AM Narrative 03/22/2019 11:42 AM CDT FLUOROSCOPIC LUMBAR MYELOGRAM Indication: Back pain Procedure/Findings: The patient's medications were reviewed before the procedure. Written informed consent was obtained. Following sterile prep and administration of 1% Lidocaine local anesthesia the thecal sac at L3-L4 was accessed under fluoroscopic guidance with a 22 gauge needle. Approximately 18 cc of Isovue-M 200 was injected intrathecally The needle was removed and hemostasis achieved immediately after. Multiple radiographs of the lumbar spine were then obtained. The patient was transferred to CT scan following the procedure in stable condition. The CT myelogram study will be read separately. Total fluoroscopy time: 0.6 minutes, 9 spot fluoroscopic images were obtained Procedure Note Willie Anderson MD - 03/22/2019 FLUOROSCOPIC LUMBAR MYELOGRAM Indication: Back pain Procedure/Findings: The patient's medications were reviewed before the procedure. Written informed consent was obtained. Following sterile prep and administration of 1% Lidocaine local anesthesia the thecal sac at L3-L4 was accessed under fluoroscopic guidance with a 22 gauge needle. Approximately 18 cc of Isovue-M 200 was injected intrathecally The needle was removed and hemostasis achieved immediately after. Multiple radiographs of the lumbar spine were then obtained. The patient was transferred to CT scan following the procedure in stable condition. The CT myelogram study will be read separately. Total fluoroscopy time: 0.6 minutes, 9 spot fluoroscopic images were obtained IMPRESSION Successful fluoroscopic guided lumbar myelogram as described above Reading Radiologist: Willie Anderson MD on 03/22/2019 at 11:42 AM Maicol Mcneil DO FLUOROSCOPY ORDERABL ES * CT LUMBAR SPINE NON CONTRAST (03/20/2019 7:50 PM CDT) Only the most recent of3 resultswithin the time period is included. Anatomical Region Laterality Modality Spine Computed Tomogra phy 03/20/2019 8:13 PM CDT Impressions 03/20/2019 8:18 PM CDT Reading Radiologist: Freddy Leija MD on 03/20/2019 at 8:18 PM Narrative 03/20/2019 8:[address] Lumbar Spine Without Contrast Indication: CT Lumbar Spine Without Contrast Indication: ?? 53 year old female presenting to the ED with a chief complaint of progressively worsening back pain that began 1 week ago. She reports being bed ridden the past week due to her pain. The patient states that today, her pain severely worsened after she fell in the shower. She also complains of chills, nausea, and shortness of breath secondary to pain Technique: Multiple axial CT images of the lumbar spine were obtained along with coronal and sagittal multiplanar reformatted images. ?This report was transcribed with a computerized speech recognition system. In an effort to expedite patient care, it has not been adjusted for typographical, grammatical or syntax problems by a trained hospital medical biller. For questions about the report, please contact the Radiology Department. Findings: Comparison is made to the examination of November 30, 2018. ??Posterior metal rods and pedicle screws are again visualized at L2-3-4. ??Disc inserts are similar in position. ??Additional bony fusion is noted posteriorly. Small ribs are noted at the lowest thoracic level. ??No new compression fracture can be seen on the sagittal reformatted images. ??Metal hardware creates artifacts. ??The patient has a spinal stimulator which creates additional artifact. Technique: Multiple axial CT images of the lumbar spine were obtained along with coronal and sagittal multiplanar reformatted images. ?This report was transcribed with a computerized speech recognition system. In an effort to expedite patient care, it has not been adjusted for typographical, grammatical or syntax problems by a trained hospital medical biller. For questions about the report, please contact the Radiology Department. Findings: No compression fracture can be identified on the sagittal reformatted images. ??The facet joints are in satisfactory alignment on the sagittal and coronal reformatted images. Procedure Note Freddy Leija MD - 03/20/2019 CT Lumbar Spine Without Contrast Indication: CT Lumbar Spine Without Contrast Indication: 53 year old female presenting to the ED with a chief complaint of progressively worsening back pain that began 1 week ago. She reports being bed ridden the past week due to her pain. The patient states that today, her pain severely worsened after she fell in the shower. She also complains of chills, nausea, and shortness of breath secondary to pain Technique: Multiple axial CT images of the lumbar spine were obtained along with coronal and sagittal multiplanar reformatted images. This report was transcribed with a computerized speech recognition system. In an effort to expedite patient care, it has not been adjusted for typographical, grammatical or syntax problems by a trained hospital medical biller. For questions about the report, please contact the Radiology Department. Findings: Comparison is made to the examination of November 30, 2018. Posterior metal rods and pedicle screws are again visualized at L2-3-4. Disc inserts are similar in position. Additional bony fusion is noted posteriorly. Small ribs are noted at the lowest thoracic level. No new compression fracture can be seen on the sagittal reformatted images. Metal hardware creates artifacts. The patient has a spinal stimulator which creates additional artifact. Technique: Multiple axial CT images of the lumbar spine were obtained along with coronal and sagittal multiplanar reformatted images. This report was transcribed with a computerized speech recognition system. In an effort to expedite patient care, it has not been adjusted for typographical, grammatical or syntax problems by a trained hospital medical biller. For questions about the report, please contact the Radiology Department. Findings: No compression fracture can be identified on the sagittal reformatted images. The facet joints are in satisfactory alignment on the sagittal and coronal reformatted images. IMPRESSION Reading Radiologist: Freddy Leija MD on 03/20/2019 at 8:18 PM Shira Camejo MD CT ORDERABLES * CT HIP RIGHT WO CONTRAST (11/30/2018 4:18 PM CDT) Anatomical Region Laterality Modality Computed Tomogra phy 11/30/2018 4:36 PM CDT Impressions 11/30/2018 4:38 PM CDT No hip fracture visualized. Reading Radiologist: Denys Fisher MD on 11/30/2018 at 4:38 PM Narrative 11/30/2018 4:[address] right hip without contrast History: Right hip pain. Technique: Axial images of the right hip were obtained without contrast and reconstructions performed Findings: No hip fracture visualized or joint malalignment. No osseous destruction is seen or osseous lesion. No acute process identified in the imaged pelvis. No soft tissue swelling or fluid collection. Prior right lower quadrant hernia repair. Procedure Note Denys Fisher MD - 11/30/2018 CT right hip without contrast History: Right hip pain. Technique: Axial images of the right hip were obtained without contrast and reconstructions performed Findings: No hip fracture visualized or joint malalignment. No osseous destruction is seen or osseous lesion. No acute process identified in the imaged pelvis. No soft tissue swelling or fluid collection. Prior right lower quadrant hernia repair. IMPRESSION No hip fracture visualized. Reading Radiologist: Denys Fisher MD on 11/30/2018 at 4:38 PM Philly Shipley BUTTERMAKER HELPER-CORPORATE SALES TRAINER CT ORDERA BLES * CT CERVICAL SPINE NON CONTRAST (08/25/2018 8:02 PM SUPERVISOR POWER REACTOR) Only the most recent of3 resultswithin the time period is included. Anatomical Region Laterality Modality Spine Computed Tomogra phy 08/25/2018 8:20 PM SUPERVISOR POWER REACTOR Impressions 08/25/2018 8:23 PM SUPERVISOR POWER REACTOR No fracture can be identified. ??Please see above. Reading Radiologist: Freddy Leija MD on 08/25/2018 at 8:23 PM Narrative 08/25/2018 8:23 PM SUPERVISOR POWER REACTOR Examination: CT Cervical Spine, without contrast. Information from [facility] ??Cervicalgia. ??Clinical information: pressure head pain to post head to post neck, shooting pain on right side of head, ringing in ears. Had neck surgery 1mo prior. Surgeon suggested pt come be seen. Technique: Noncontrast axial images of the cervical spine were performed. Additional sagittal and coronal reformatted images of the cervical spine were performed with the CT scanner. ??If evaluation of the soft tissues is needed to treat the patient, please consider an alternative imaging modality such as an MRI.. Findings: ??Metal plate bridges the C6-C7 disc space anteriorly. ??Disc insert is been placed. ??The metal plate appears intact on the coronal reformatted images. ??Unfortunately image detail is reduced by streak artifacts from the metal hardware. ??The plate is new since the examination of April 30, 2018.. ?? No compression fracture can be identified in the cervical vertebra on the axial or reformatted images. The facet joints are in satisfactory alignment. This report was transcribed with a computerized speech recognition system. ??In an effort to expedite patient care, it has not been adjusted for typographical, grammatical or syntax problems by a trained hospital medical biller. For questions about the report, please contact the Radiology Department. Procedure Note Freddy Leija MD - 08/25/2018 Examination: CT Cervical Spine, without contrast. Information from [facility] Cervicalgia. Clinical information: pressure head pain to post head to post neck, shooting pain on right side of head, ringing in ears. Had neck surgery 1mo prior. Surgeon suggested pt come be seen. Technique: Noncontrast axial images of the cervical spine were performed. Additional sagittal and coronal reformatted images of the cervical spine were performed with the CT scanner. If evaluation of the soft tissues is needed to treat the patient, please consider an alternative imaging modality such as an MRI.. Findings: Metal plate bridges the C6-C7 disc space anteriorly. Disc insert is been placed. The metal plate appears intact on the coronal reformatted images. Unfortunately image detail is reduced by streak artifacts from the metal hardware. The plate is new since the examination of April 30, 2018.. No compression fracture can be identified in the cervical vertebra on the axial or reformatted images. The facet joints are in satisfactory alignment. This report was transcribed with a computerized speech recognition system. In an effort to expedite patient care, it has not been adjusted for typographical, grammatical or syntax problems by a trained hospital medical biller. For questions about the report, please contact the Radiology Department. IMPRESSION No fracture can be identified. Please see above. Reading Radiologist: Freddy Leija MD on 08/25/2018 at 8:23 PM Heladio Young MD CT ORDERABLES * XR CLAVICLE RIGHT 2VW (08/25/2018 7:36 PM SUPERVISOR POWER REACTOR) Anatomical Region Laterality Modality Upper Extremity, Chest Radiograp hic Imaging 08/25/2018 7:42 PM SUPERVISOR POWER REACTOR Impressions 08/25/2018 7:42 PM SUPERVISOR POWER REACTOR Negative for fracture at this time.. ?? Please see above discussion. Reading Radiologist: Freddy Leija MD on 08/25/2018 at 7:42 PM Narrative 08/25/2018 7:42 PM SUPERVISOR POWER REACTOR Examination: Right clavicle 2 views INDICATION: Cervicalgia . ??Injury. ??Fell. ??Neck pain and clavicle pain.. FINDINGS: ??No fracture can be identified on the current plain films.. . If the patient's symptoms persist or worsen, please consider a higher level imaging study to exclude an occult process. Procedure Note Freddy eLija MD - 08/25/2018 Examination: Right clavicle 2 views INDICATION: Cervicalgia . Injury. Fell. Neck pain and clavicle pain.. FINDINGS: No fracture can be identified on the current plain films.. . If the patient's symptoms persist or worsen, please consider a higher level imaging study to exclude an occult process. IMPRESSION Negative for fracture at this time.. Please see above discussion. Reading Radiologist: Freddy Leija MD on 08/25/2018 at 7:42 PM Heladio Young MD DIAGNOSTIC IMAGING O RDERABLES * XR PELVIS W RIGHT HIP 2VW (04/30/2018 1:07 PM CDT) Anatomical Region Laterality Modality Radiographic Estephanie ging 04/30/2018 1:13 PM CDT Narrative 04/30/2018 1:14 PM CDT Pelvis AP Right hip 2 views HISTORY: Fall right hip pain FINDINGS: No fracture or malalignment. Reading Radiologist: Pratik Linda MD on 04/30/2018 at 1:14 PM Procedure Note Pratik Linda MD - 04/30/2018 Pelvis AP Right hip 2 views HISTORY: Fall right hip pain FINDINGS: No fracture or malalignment. Reading Radiologist: Pratik Linda MD on 04/30/2018 at 1:14 PM Philly Shipley BUTTERMAKER HELPER-CORPORATE SALES TRAINER DIAGNOSTI C IMAGING ORDERABLES * XR KNEE RIGHT 4VW OR MORE (04/30/2018 1:07 PM CDT) Anatomical Region Laterality Modality Lower Extremity Radiographic Estephanie ging 04/30/2018 1:12 PM CDT Narrative 04/30/2018 1:13 PM CDT Right Knee 4 Views INDICATION: Fall right knee pain FINDINGS: ??No fracture or malalignment is seen. Reading Radiologist: Pratik Linda MD on 04/30/2018 at 1:13 PM Procedure Note Pratik Linda MD - 04/30/2018 Right Knee 4 Views INDICATION: Fall right knee pain FINDINGS: No fracture or malalignment is seen. Reading Radiologist: Pratik Linda MD on 04/30/2018 at 1:13 PM Philly Shipley BUTTERMAKER HELPER-CORPORATE SALES TRAINER DIAGNOSTI C IMAGING ORDERABLES * MAMMO BILAT SCREENING (09/18/2017 9:53 AM CDT) Anatomical Region Laterality Modality Breast Bilateral Mammography 09/23/2017 9:20 AM CDT Impressions 09/23/2017 9:22 AM CDT No mammographic evidence of malignancy in either breast. ASSESSMENT: BIRADS Category 2: Benign finding(s). RECOMMENDATION: Bilateral screening mammogram in one year. Thank you for allowing us to participate in the care of your patient. [facility] utilizes [employer] as a reminder system to notify patients of their next recommended mammogram. Narrative 09/23/2017 9:22 AM CDT EXAMINATION: Digital screening mammogram on 09/18/2017. Low-dose full-field digital breast tomosynthesis examination was performed with synthetic 2D images and 3D acquisitions. Computer assisted detection was utilized. [facility] BREAST PARENCHYMAL DENSITY: The breasts are almost entirely fatty. RISK ASSESSMENT CALCULATION: Based on the information provided by your patient, her lifetime risk of breast cancer is average (<15%). Additional quantitative risk model data and patient history details have been scanned as a document/letter in Epic electronic medical record (media tab). Please note this information is only as accurate as the data entered by the patient. FINDINGS: No suspicious masses, areas of architectural distortion or microcalcifications are evident on synthetic 2D mammogram or tomosynthesis images. ??Postsurgical changes are seen in both breasts. Shilpa Frazier DO MAMMO ORDERABLES * TSH (08/20/2017 12:34 PM SUPERVISOR POWER REACTOR) TSH 1.72 mIU/L ANN-MARIE Comment: ?Reference Range ?> or = 20 Years ??0.40-4.50 ? Ranges ?First trimester ?0.26-2.66 ?Second trimester ?? 0.55-2.73 ?Third trimester ?0.43-2.91 Test Performed at: [facility] [id number] [place], [place] ??[id number] JIM SAEED DO,MPH Blood BLOOD SPECIMEN / Unknown 08/20/2017 12:34 PM SUPERVISOR POWER REACTOR 08/20/2017 12:35 PM SUPERVISOR POWER REACTOR Shilpa Frazier DO LAB - CHEMISTRY OR DERABLES [facility] [address] [place] [address] * STREP A SCREEN (05/16/2016) Strep A Rapid POCT Negative Negative Strep A Internal Control Present Lot # [id number] Expiration Date 11/01/2017 Throat ENTIRE THROAT (SURFACE REGION OF NECK) / Unknown 05/16/2016 Sue Gabriel BUTTERMAKER HELPER-[facility] - POINT OF CAR E ORDERABLES * INFLUENZA A+B - POINT OF CARE (AMB) (05/16/2016) Influenza A Antigen Rapid Negative Negative Influenza B Antigen Rapid Negative Negative Influenza Internal Control PRESENT NEGATIVE - POSITIVE Influenza Lot Number [id number] Influenza Expiration Date 07/30/2017 Other NASOPHARYNGEAL SWAB / Unknown 05/16/2016 Sue Gabriel BUTTERMAKER HELPER-[facility] - POINT OF CAR E ORDERABLES * MRI SPINE CERVICAL NON CONTRAST (12/20/2014 3:24 PM CDT) Anatomical Region Laterality Modality Pelvis Magnetic Resonan ce 12/20/2014 3:50 PM CDT Impressions 12/20/2014 4:12 PM CDT Discogenic degenerative changes are present from C3-4 through C6-7, resulting in a minimal central canal stenosis at C5-6 and mild central canal stenosis at C6-7. Edited by Philly Dimas on 12/20/2014 3:56 PM Narrative 12/20/2014 4:12 PM CDT MRI CERVICAL SPINE Indication: Neck pain with cervical radiculopathy to left arm, left neck stiffness. Technique: The following sequences were obtained: Sagittal T1 and T2, axial T2 volume, axial gradient-echo. Comparison: None. Alignment: There is loss of the normal cervical lordosis. No focal malalignment is seen at any level. Spinal cord: Normal in morphology and in signal intensity. Marrow: Normal. Intervertebral discs: There is mild loss of disc height at C5-6 and C6-7. Posterior disc bulges are present from C3-4 through C6-7. The following levels were directly imaged in the axial plane: C2-C3: Normal. C3-C4: A small central disc bulge does not result in significant stenosis. The neural foramina are patent. C4-C5: Disc bulge does not result in significant central canal stenosis. The neural foramina are patent. C5-C6: A disc bulge eccentric to the left contacts and displaces the cervical spinal cord with a minimal central canal stenosis. The neural foramina are mildly narrowed bilaterally. C6-C7: A disc bulge eccentric to the left contacts the cervical spinal cord with a mild central canal stenosis. The neural foramina are mildly narrowed. C7-T1: No significant stenosis is present. T1-T2: Normal. Procedure Note Edelmira Sotelo MD - 12/20/2014 MRI CERVICAL SPINE Indication: Neck pain with cervical radiculopathy to left arm, left neck stiffness. Technique: The following sequences were obtained: Sagittal T1 and T2, axial T2 volume, axial gradient-echo. Comparison: None. Alignment: There is loss of the normal cervical lordosis. No focal malalignment is seen at any level. Spinal cord: Normal in morphology and in signal intensity. Marrow: Normal. Intervertebral discs: There is mild loss of disc height at C5-6 and C6-7. Posterior disc bulges are present from C3-4 through C6-7. The following levels were directly imaged in the axial plane: C2-C3: Normal. C3-C4: A small central disc bulge does not result in significant stenosis. The neural foramina are patent. C4-C5: Disc bulge does not result in significant central canal stenosis. The neural foramina are patent. C5-C6: A disc bulge eccentric to the left contacts and displaces the cervical spinal cord with a minimal central canal stenosis. The neural foramina are mildly narrowed bilaterally. C6-C7: A disc bulge eccentric to the left contacts the cervical spinal cord with a mild central canal stenosis. The neural foramina are mildly narrowed. C7-T1: No significant stenosis is present. T1-T2: Normal. IMPRESSION Discogenic degenerative changes are present from C3-4 through C6-7, resulting in a minimal central canal stenosis at C5-6 and mild central canal stenosis at C6-7. Edited by Philly Dimas on 12/20/2014 3:56 PM Alicia Mccullough BUTTERMAKER HELPER-CORPORATE SALES TRAINER MR ORDERABLE S * XR C SPINE 4+ VIEWS (12/12/2014 3:39 PM CDT) Anatomical Region Laterality Modality Spine Radiographic Estephanie ging 12/12/2014 3:42 PM CDT Impressions 12/12/2014 3:43 PM CDT There is loss of the normal cervical lordosis. This is a nonspecific finding as discussed above. No acute bony injury is seen. Narrative 12/12/2014 3:43 PM CDT Radiographic Series of Cervical Spine Indication: Neck pain with cervical radiculopathy to left arm Findings: 6 views of the cervical spine are submitted. There is loss of the normal cervical lordosis. This is a nonspecific finding which may be secondary to muscle spasm or patient positioning. No prevertebral soft tissue swelling is seen. Mild disc space narrowing is present at C5-6 and C4-5.. No acute bony injury is appreciated. Facet joints are in normal alignment on oblique projections. Procedure Note Edelmira Sotelo MD - 12/12/2014 Radiographic Series of Cervical Spine Indication: Neck pain with cervical radiculopathy to left arm Findings: 6 views of the cervical spine are submitted. There is loss of the normal cervical lordosis. This is a nonspecific finding which may be secondary to muscle spasm or patient positioning. No prevertebral soft tissue swelling is seen. Mild disc space narrowing is present at C5-6 and C4-5.. No acute bony injury is appreciated. Facet joints are in normal alignment on oblique projections. IMPRESSION There is loss of the normal cervical lordosis. This is a nonspecific finding as discussed above. No acute bony injury is seen. George Severino DO DIAGNOSTIC IMAGING O RDERABLES * MRI SPINE LUMBAR WITH & WITHOUT CONTRAST (10/04/2014 1:17 PM CDT) Anatomical Region Laterality Modality Spine Magnetic Resonan ce 10/04/2014 3:55 PM CDT Impressions 10/04/2014 4:41 PM CDT Status post L2-L4 spinal fusion. No severe stenosis is seen. Please clinically correlate and further evaluation or imaging can be obtained as needed. Edited by Philly Dimas on 10/04/2014 4:37 PM Narrative 10/04/2014 4:41 PM CDT MRI LUMBAR SPINE WITH AND WITHOUT CONTRAST INDICATION: Low-back pain, right leg pain, history of lumbar fusion. TECHNIQUE: Standard MRI sequences of the lumbar spine with and without contrast. Omniscan 20 mL was administered. FINDINGS: Prior lumbar radiograph is available from April 06, 2013. Posterior spinal fusion extending between L2 and L4. No hardware failure malalignment is evident. The spinal cord ends at L1 and appears normal. L1-L2: No stenosis. L2-L3: Laminectomy changes. Fused level. No stenosis. L3-L4: Laminectomy changes. Fused level. No stenosis. L4-L5: Laminectomy changes. Fused level. No significant stenosis. L5-S1: Diffuse disc bulge and mild canal stenosis. No abnormal enhancement is seen. Procedure Note Pratik Linda MD - 10/04/2014 MRI LUMBAR SPINE WITH AND WITHOUT CONTRAST INDICATION: Low-back pain, right leg pain, history of lumbar fusion. TECHNIQUE: Standard MRI sequences of the lumbar spine with and without contrast. Omniscan 20 mL was administered. FINDINGS: Prior lumbar radiograph is available from April 06, 2013. Posterior spinal fusion extending between L2 and L4. No hardware failure malalignment is evident. The spinal cord ends at L1 and appears normal. L1-L2: No stenosis. L2-L3: Laminectomy changes. Fused level. No stenosis. L3-L4: Laminectomy changes. Fused level. No stenosis. L4-L5: Laminectomy changes. Fused level. No significant stenosis. L5-S1: Diffuse disc bulge and mild canal stenosis. No abnormal enhancement is seen. IMPRESSION Status post L2-L4 spinal fusion. No severe stenosis is seen. Please clinically correlate and further evaluation or imaging can be obtained as needed. Edited by Philly Dimas on 10/04/2014 4:37 PM Migue Mathur MD MR ORDERABLES * PATHOLOGY TISSUE FOR DERMATOLOGY (09/10/2013 12:00 AM CDT) Result CASE: [id number] PATIENT: ANGELINA MOYA PATHOLOGIC DIAGNOSIS: Left med lorenzo: HEMANGIOMA CLINICAL DATA: Angioma. GROSS DESCRIPTION: Received is one formalin filled container labeled with the patient's name and designated left med lorenzo. The specimen consists of a shave biopsy measuring 7x5x1 mm. Jar 0. MICROSCOPIC DESCRIPTION: In the dermis, there is a small circumscribed collection of dilated vascular spaces surrounded by widely spaced endothelial cells. Electronically signed out by Aruna Alcaraz M.D. 09/15/2013 11:57:44AM [facility] D[facility] Comment: Performed at: Dermatopathology Laboratory [facility] - Department of Dermatology [address] [place] [address], [address] [place] [address] Phone number: [phone] FAX: [phone] 09/10/2013 09/14/2013 Fadi Provider LAB - PATHOLOGY/C YTOLOGY ORDERABLES [facility] DERMATOLOGY LAB [address] [facility]. [address] [place] [address], [facility] [phone] * (ABNORMAL) CARDIAC MARKER PANEL (07/10/2012 4:40 PM SUPERVISOR POWER REACTOR) Troponin I <0.015 <0.100 ng/mL 07/10/2012 5:15 PM SUPERVISOR POWER REACTOR [facility] CK 54 35 - 232 U/L 07/10/2012 5:15 PM SUPERVISOR POWER REACTOR [facility] CK-MB 0.5 0.0 - 5.0 ng/mL 07/10/2012 5:15 PM SUPERVISOR POWER REACTOR [facility] CK Index % 0.9(L) 4.0 - 25.0 % 07/10/2012 5:15 PM SUPERVISOR POWER REACTOR [facility] Blood specimen (specimen) BLOOD SPECIMEN / Unknown 07/10/2012 4:40 PM SUPERVISOR POWER REACTOR 07/10/2012 4:56 PM SUPERVISOR POWER REACTOR Matrin Dominguez MD LAB - CHEMISTRY MARKUS VALDEZ Performing Organization Address City/[facility]/ZIP Co de Phone Number [facility] [address] [place] [address] * CT ANGIO CHEST COMB INCLUDE PROC (03/04/2009 12:52 PM CDT) Anatomical Region Laterality Modality Chest Computed Tomogra phy 03/04/2009 1:14 PM CDT Impressions 03/04/2009 1:21 PM CDT There is no evidence of pulmonary embolism. Narrative 03/04/2009 1:[address] PULMONARY ANGIOGRAM Indication: cough, shorter breath, bronchitis Comparison: CT chest with routine protocol March 03, [address] scan of the chest is carried out during the administration of 100 cc of Omnipaque 350 utilizing the special pulmonary embolus technique. 2D computer generated reformations were created in the coronal plane. Findings: The pulmonary arteries are well seen down the through the third order branches and no emboli are identified. The mediastinal and hilar structures are unremarkable. A calcified granulomas present at the left lower lobe. Calcified lymph node is present at the left hilum. Procedure Note Deepak Edelmira J - 03/04/2009 CT PULMONARY ANGIOGRAM Indication: cough, shorter breath, bronchitis Comparison: CT chest with routine protocol March 03, [address] scan of the chest is carried out during the administration of 100 cc of Omnipaque 350 utilizing the special pulmonary embolus technique. 2D computer generated reformations were created in the coronal plane. Findings: The pulmonary arteries are well seen down the through the third order branches and no emboli are identified. The mediastinal and hilar structures are unremarkable. A calcified granulomas present at the left lower lobe. Calcified lymph node is present at the left hilum. IMPRESSION There is no evidence of pulmonary embolism. Massiel Alvarez MD CT ORDERABLES * US ADDITIONAL IMAGING (03/03/2009 10:37 AM CDT) Anatomical Region Laterality Modality Ultrasound 03/03/2009 10:4 7 AM CDT Impressions 03/17/2009 11:51 AM CDT No evidence of deep venous thrombosis. Narrative 03/17/2009 11:51 AM CDT Bilateral lower extremity venous duplex Doppler ultrasound [] Clinical Indication: Bilateral lower extremity pain and swelling Technique: Multiple longitudinal and transverse grayscale, color Doppler, and pulse wave Doppler images of the deep venous vasculature of the bilateral lower extremity were obtained. Findings: The deep veins of the bilateral lower extremity are widely patent and include the common femoral, superficial femoral, popliteal, peroneal and posterior tibial veins. Appropriate color-flow, Doppler waveform, augmentation and compression is demonstrated. Procedure Note Arthur Austin MD - 03/17/2009 Bilateral lower extremity venous duplex Doppler ultrasound [] Clinical Indication: Bilateral lower extremity pain and swelling Technique: Multiple longitudinal and transverse grayscale, color Doppler, and pulse wave Doppler images of the deep venous vasculature of the bilateral lower extremity were obtained. Findings: The deep veins of the bilateral lower extremity are widely patent and include the common femoral, superficial femoral, popliteal, peroneal and posterior tibial veins. Appropriate color-flow, Doppler waveform, augmentation and compression is demonstrated. IMPRESSION No evidence of deep venous thrombosis. Massiel Alvarez MD US ORDERABLES * US EARL DOPPLER LOW EXTR BILAT (03/03/2009 10:37 AM CDT) Anatomical Region Laterality Modality Ultrasound 03/03/2009 10:4 7 AM CDT Impressions 03/03/2009 10:49 AM CDT No evidence of deep venous thrombosis. Narrative 03/03/2009 10:49 AM CDT Bilateral lower extremity venous duplex Doppler ultrasound [] Clinical Indication: Bilateral lower extremity pain and swelling Technique: Multiple longitudinal and transverse grayscale, color Doppler, and pulse wave Doppler images of the deep venous vasculature of the bilateral lower extremity were obtained. Findings: The deep veins of the bilateral lower extremity are widely patent and include the common femoral, superficial femoral, popliteal, peroneal and posterior tibial veins. Appropriate color-flow, Doppler waveform, augmentation and compression is demonstrated. Procedure Note Arthur Austin MD - 03/03/2009 Bilateral lower extremity venous duplex Doppler ultrasound [] Clinical Indication: Bilateral lower extremity pain and swelling Technique: Multiple longitudinal and transverse grayscale, color Doppler, and pulse wave Doppler images of the deep venous vasculature of the bilateral lower extremity were obtained. Findings: The deep veins of the bilateral lower extremity are widely patent and include the common femoral, superficial femoral, popliteal, peroneal and posterior tibial veins. Appropriate color-flow, Doppler waveform, augmentation and compression is demonstrated. IMPRESSION No evidence of deep venous thrombosis. Massiel Alvarez MD US ORDERABLES * CT CHEST WITH CONTRAST (03/03/2009 8:32 AM CDT) Anatomical Region Laterality Modality Chest Computed Tomogra phy 03/03/2009 9:09 AM CDT Impressions 03/03/2009 10:[address] EXAMINATION OF THE CHEST. Narrative 03/03/2009 10:[address] THORAX WITH CONTRAST CLINICAL INDICATION: Cough and fever TECHNIQUE: 5 mm images through the thorax with intravenous contrast. 90 cc Omnipaque 350 injected intravenously COMPARISON: May 06, 2007 FINDINGS: No dense consolidation, pleural effusion or pneumothorax is identified. The 1.5 cm calcified granuloma in the left lung base is unchanged. There is no bulky mediastinal, hilar or axillary lymphadenopathy. The ascending and descending thoracic aorta are unremarkable. There is no pericardial effusion. Images through the upper abdomen show surgical clips overlying the gallbladder fossa. Procedure Note Arthur Austin MD - 03/03/2009 CT THORAX WITH CONTRAST CLINICAL INDICATION: Cough and fever TECHNIQUE: 5 mm images through the thorax with intravenous contrast. 90 cc Omnipaque 350 injected intravenously COMPARISON: May 06, 2007 FINDINGS: No dense consolidation, pleural effusion or pneumothorax is identified. The 1.5 cm calcified granuloma in the left lung base is unchanged. There is no bulky mediastinal, hilar or axillary lymphadenopathy. The ascending and descending thoracic aorta are unremarkable. There is no pericardial effusion. Images through the upper abdomen show surgical clips overlying the gallbladder fossa. IMPRESSION UNREMARKABLE CT EXAMINATION OF THE CHEST. Massiel Alvarez MD CT ORDERABLES * (ABNORMAL) BLOOD GASES ARTERIAL (03/02/2009 6:10 PM CDT) pH Arterial 7.41 7.35 - 7.45 [facility] pCO2 Arterial 38.2 35 - 45 mm Hg [facility] pO2 Arterial 70.5(L) 80 - 100 mm Hg [facility] HCO3 Arterial 23.9 22 - 26 [facility] Base Excess Arterial -0.4 -2.0 - 2.0 [facility] O2 Saturation Arterial 94.4(L) 97 - 100 % [facility] Mode room ai [facility] Site Right Radial [facility] Stanley's Test Positive [facility] Comment Stanley's Test: rbb [id number] [facility] ARTERIAL BLOOD SPECIMEN / Unknown 03/02/2009 6:10 PM CDT 03/02/2009 7:04 PM CDT Denys Oneill MD LAB - BLOOD GASES OR DERABLES [facility] [address] [id number] * XR CHEST PA AND LATERAL (03/02/2009 3:31 PM CDT) Anatomical Region Laterality Modality Chest Radiographic Estephanie ging 03/02/2009 3:44 PM CDT Impressions 03/02/2009 4:17 PM CDT No acute pulmonary disease. Narrative 03/02/2009 4:17 PM CDT Chest 2 views Indication: ?? chest pain and fever Findings: 2 views of the chest compared to 01/14/09 show no confluent infiltrate, consolidation or effusion. The heart size is stable. Procedure Note Arthur Austin MD - 03/02/2009 Chest 2 views Indication: chest pain and fever Findings: 2 views of the chest compared to 01/14/09 show no confluent infiltrate, consolidation or effusion. The heart size is stable. IMPRESSION No acute pulmonary disease. Denys Oneill MD DIAGNOSTIC IMAGING O RDERABLES * CT THORACIC SPINE NON CONTRAST (01/15/2009 1:15 AM CDT) Anatomical Region Laterality Modality Spine Computed Tomogra phy 01/15/2009 8:13 AM CDT Narrative 01/15/2009 11:09 AM CDT INDICATION: Thoracic spine pain. TECHNIQUE: CT scan of the thoracic spine was carried out in axial plane. Sagittal and coronal reconstructed images were obtained as well. Initial interpretation was provided by [facility]. FINDINGS: The vertebral bodies are normally aligned and the intervertebral spaces are of average width. No apparent recent fracture, dislocation, focal bone production or destruction is noted with certainty on the basis of this examination. SUMMARY CT Scan of the Thoracic Spine -- Essentially negative. If significant symptoms persist, followup examination to perhaps include an MRI may be of value for evidence of soft tissue or cord injury. Procedure Note Manolo Elias MD - 01/15/2009 INDICATION: Thoracic spine pain. TECHNIQUE: CT scan of the thoracic spine was carried out in axial plane. Sagittal and coronal reconstructed images were obtained as well. Initial interpretation was provided by [facility]. FINDINGS: The vertebral bodies are normally aligned and the intervertebral spaces are of average width. No apparent recent fracture, dislocation, focal bone production or destruction is noted with certainty on the basis of this examination. SUMMARY CT Scan of the Thoracic Spine -- Essentially negative. If significant symptoms persist, followup examination to perhaps include an MRI may be of value for evidence of soft tissue or cord injury. Stacey Rivera MD CT ORDERABLES * XR PELVIS (01/14/2009 11:42 PM CDT) Anatomical Region Laterality Modality Pelvis Radiographic Estephanie ging 01/15/2009 7:50 AM CDT Narrative 01/15/2009 11:09 AM CDT INDICATION: Pelvic pain. FINDINGS: Examination of the pelvis, AP supine, reveals no apparent recent fracture, dislocation, focal bone production or destruction. Pedicle screws and rods are noted in the partially visualized lower lumbar spine. Surgical sutures are noted in the inguinal region on the right side. SUMMARY Pelvis -- Essentially negative. If significant symptoms persist, followup examination within 7 - 10 days to perhaps include a bone scan may be of value for evidence of occult osseous changes. Essentially negative as detailed above. Procedure Note Manolo Elias MD - 01/15/2009 INDICATION: Pelvic pain. FINDINGS: Examination of the pelvis, AP supine, reveals no apparent recent fracture, dislocation, focal bone production or destruction. Pedicle screws and rods are noted in the partially visualized lower lumbar spine. Surgical sutures are noted in the inguinal region on the right side. SUMMARY Pelvis -- Essentially negative. If significant symptoms persist, followup examination within 7 - 10 days to perhaps include a bone scan may be of value for evidence of occult osseous changes. Essentially negative as detailed above. Stacey Rivera MD DIAGNOSTIC IMAGING ORDERABLES * ALCOHOL ETHYL BLOOD (01/14/2009 11:20 PM CDT) Ethanol <10.0 <10.0 mg/dl [facility] Note Ethanol [facility] Comment: This non-legal serum Alcohol test result is to be used for medical treatment only. BLOOD SPECIMEN / Unknown 01/14/2009 11:20 PM CDT 01/14/2009 11:27 PM CDT Stacey Rivera MD LAB - CHEMISTRY ORD ERABLES [facility] [address] [address] * GROSS + MICRO EXAM (11/02/2001 12:00 AM CDT) Only the most recent of2 resultswithin the time period is included. Result CASE NUMBER [id number] Comment: ORDERING PHYSICIAN ??SANG YANEZ SPECIMEN TYPE ?Breast-left Surgeon ?SANG YANEZ M.D. Gross Exam ? ANGELA SANDOVAL ??M.D. Gross Report ? INDICATION FOR PROCEDURE ?? OPERATION ??BILATERAL MAMMOPLASTY REDUCTION GROSS ?? THE SPECIMEN IS RECEIVED IN TWO CONTAINERS LABELED WITH THE PATIENT'S NAME. 1. ??LABELED RIGHT BREAST TISSUE 1220 . ??THE SPECIMEN CONSISTS OF SEVERAL FRAGMENTS OF BREAST TISSUE RANGING IN SIZE FROM 5 X 3 X 2 CM. TO 18 X 16 X 4 CM. ??THE TOTAL WEIGHT OF THE SPECIMEN IS 1,220 GRAMS. ??TWO FRAGMENTS OF BREAST TISSUE IS COVERED BY A SKIN ELLIPSE. ??THE SKIN IS PALE AND GROSSLY UNREMARKABLE. ??ON SECTIONING THE SPECIMEN CONSISTS OF MOSTLY BRIGHT YELLOWISH ADIPOSE TISSUE. ?? MIRROR INSPECTOR SECTIONS ARE SUBMITTED IN CASSETTES A AND B. 2. ??LABELED LEFT BREAST TISSUE 1400 . ??THE SPECIMEN CONSISTS OF SEVERAL FRAGMENTS OF BREAST TISSUE RANGING IN SIZE FROM 5 X 3 X 2 CM. TO 22 X 14 X 3 CM. ??THE TOTAL WEIGHT OF THE SPECIMEN IS 1400 GRAMS. ??THE TWO FRAGMENTS OF BREAST TISSUE ARE COVERED BY A SKIN ELLIPSE. ??THE SKIN IS GROSSLY UNREMARKABLE. ??ON SECTIONING, THE SPECIMEN MOSTLY CONSISTS OF ADIPOSE TISSUE AND IS OTHERWISE GROSSLY UNREMARKABLE. ??MIRROR INSPECTOR SECTIONS ARE SUBMITTED IN CASSETTES C AND D. TK/SS ? MICROSCOPIC EXAM ? MICROSCOPIC 1,2. ??SECTIONS OF THE RIGHT AND LEFT BREAST TISSUE SHOW BENIGN FATTY BREAST TISSUE AND SKIN. ??NO SIGNIFICANT HYPERPLASIA OR MALIGNANCY IS SEEN. ?? DIAGNOSIS ? DIAGNOSIS [1] RIGHT BREAST TISSUE, 1,220 GRAMS, REDUCTION MAMMOPLASTY FOR BREAST HYPERTROPHY -- ?? BENIGN BREAST TISSUE [2] LEFT BREAST TISSUE, 1,400 GRAMS, REDUCTION MAMMOPLASTY FOR BREAST HYPERTROPHY -- ?? BENIGN BREAST TISSUE AB/SS Released By ?DARA PILLAI CPT Code ? 02060 X2 MISCELLANEOUS SAMPLE S / Unknown 11/02/2001 11/02/2001 12:38 PM CDT Historical Provider MD LAB - PATHOLOGY/C YTOLOGY ORDERABLES Care Teams Manager Private Relationship Specialty Start Date End Date Iron Galindo PA-C [address] [facility] [address] [place], [place] [id number] PCP - General Physician Leading Firefighter 02/12/23 Cresencio Ghosh MD [address] [facility] [address] [id number] PCP - Attributed-[facility] P[facility]P 12/29/23 Lidia Barajas MD [address] [facility], [id number] Anesthesiology-Pain Management 06/03/19 Shilpa Gandhi MD [address] [facility] [address] [place] [address] Oncology 06/03/19
--- OUTSIDE RECORDS SUMMARY | 2024-07-22 18:06 | XMS_ITS | Clinical Summary ---
Author Organization [facility] Address [address] [place] [address] Phone Care Team Providers Care Trimmer Machine Operator Name Role Phone Fiordaliza Snell MD Primary Care Provider Allergies Active Allergy Reactions Criticality Noted Date Comments Adhesive Rash Low 11/02/2013 Latex Swelling,Fever Low 07/02/2020 Penicillins Hives,Swelling High 11/02/2013 Sulfa (Sulfonamide Antibiotics) Other (See Comments) High 04/12/2019 Patient states medication makes her sick, nausea, vomiting, difficulty breathing Sulfalene Itching Low 06/25/2011 Vancomycin Hives,Itching High 07/02/2020 Medications atorvastatin (LIPITOR) 10 mg tablet Take 10 mg by mouth. 9 Active diclofenac sodium (VOLTAREN) 1 % gel Apply 2 Grams to affected area. 9 Active dicyclomine (BENTYL) 10 mg capsule Take 10 mg by mouth. 0 Active diltiaZEM (CARDIZEM) 30 mg tablet Take 30 mg by mouth. 9 Active docusate sodium (ENEMEEZ) 283 mg Enema Insert 283 mg by rectum. 9 Active escitalopram oxalate (LEXAPRO) 20 mg tablet Take 20 mg by mouth. 9 Active furosemide (LASIX) 40 mg tablet Take 40 mg by mouth. 0 Active hydrocortisone (CORTAID) 1 % Cream Apply to affected area. 9 Active losartan (COZAAR) 100 mg tablet Take 100 mg by mouth daily. 0 Active lubiprostone (AMITIZA) 8 mcg Capsule Take 8 mcg by mouth. 0 Active mineral oil (FLEET MINERAL OIL) Enema Insert 1 Enema by rectum. 0 Active nystatin-triamcin olone (MYCOLOG-II) 100,000-0.1 unit/g-% Cream Apply to affected area. 0 Active potassium chloride (KLOR-CON) 20 mEq Extended Release tablet Take 20 mEq by mouth. 0 Active rOPINIRole (REQUIP) 0.5 mg tablet Take 0.5 mg by mouth 2 times daily. 0 Active pantoprazole (PROTONIX) 40 mg Tablet, Delayed Release (E.C.) Take 1 Tablet (40 mg) by mouth 2 times daily. 60 Tablet 2 1 Active lidocaine-vit e-aloe vera-rylan (REGENECARE) 2 % Gel Apply to affected area. Active ALPRAZolam (XANAX) 0.25 mg tablet Take 0.25 mg by mouth nightly as needed for Anxiety. Active ondansetron (ZOFRAN ODT) 4 mg Tablet, Rapid Dissolve Take 1 Tablet (4 mg) by mouth every 6 hours as needed for Nausea. 30 Tablet 2 1 Active lactulose (ENULOSE) 10 gram/15 mL 10 gram/15 mL solution TAKE 5 ML BY MOUTH THREE TIMES DAILY 236 mL 1 Active metoprolol succinate (TOPROL XL) 25 mg Extended Release 24 hour tabletIndications :Benign hypertension TAKE 1 TABLET(25 MG) BY MOUTH DAILY 90 Tablet 1 Active zolpidem (AMBIEN) 10 mg tabletIndications :Insomnia, unspecified type Take 1 Tablet (10 mg) by mouth nightly as needed for Insomnia. 30 Tablet 1 Active gabapentin (NEURONTIN) 300 mg capsule Take 300 mg by mouth. 1 Active linaCLOtide (LINZESS) 145 mcg capsule Take 145 mcg by mouth daily before breakfast. 1 Active solifenacin (VESICARE) 5 mg Tablet TAKE 2 TABLETS BY MOUTH EVERY DAY 1 Active ciprofloxacin HCl (Cipro) 500 mg tabletIndications :Urinary tract infection associated with cystostomy catheter, initial encounter Take 1 Tablet (500 mg) by mouth 2 times daily. 14 Tablet 1 Active HYDROcodone-aceta minophen (NORCO) 5-325 mg tabletIndications :Closed fracture of foot, unspecified laterality, sequela Take 1 Tablet by mouth every 6 hours as needed for Pain, Moderate. Max Daily Amount: 4 Tablets 20 Tablet 2 Active Active Problems Patient Care Coordination No te Formatting of this note migh t be different from the original. Team Leader - Dr. Eddie Tapia MD, FAC, [facility] - [address] [facility] Problem Noted Date Diagnosed Date YAJAIRA (obstructive sleep apnea) 07/25/2021 Tension headache 09/05/2020 History of pulmonary embolism 07/25/2020 Dependent edema 07/25/2020 Benign hypertension 07/25/2020 VINCENT (generalized anxiety disorder) 07/25/2020 Current moderate episode of major depressive disorder without prior episode 07/25/2020 Irritable bowel syndrome wit h both constipation and diarrhea 07/25/2020 Epigastric abdominal pain 07/25/2020 Restless legs syndrome (RLS) 02/16/2020 Malaise and fatigue 02/16/2020 Hypersomnia 02/16/2020 Hepatic steatosis 01/08/2020 Major depressive disorder 11/16/2019 Major depressive disorder, recurrent episode, mo derate 08/19/2019 Other hydronephrosis 08/17/2019 Hypertensive emergency without congestive heart failure 08/17/2019 Overview (09/14/2021): Last Assessment & Plan: Blood pressure has normalized. 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 Last Assessment & Plan: Assessment Healed fusion L2-5 severe retrolisthesis with stenosis L1-2 with incomplete paraplegia at the L1 level. Her deformity his significantly changed since the CT scan she had done in December of [address] scan lumbar spine referral to Dr. Louis I reinstituted her therapy program a. Osteophyte, vertebrae 06/18/2018 Overview (09/14/2021): Added automatically from request for surgery [id number] Cervical pain (neck) 06/13/2018 Intractable pain 10/13/2011 Overview (09/14/2021): spinal fusions x 2 Abdominal cramping 06/26/2011 Anxiety 06/26/2011 Grief reaction 06/26/2011 Family hx of colon cancer 06/26/2011 AMADA (acute kidney injury) Paroxysmal atrial fibrillation Suprapubic catheter Complicated urinary tract infection Bladder calculi Constipation Intertrigo Non-intractable vomiting Pneumonia of right lower lobe due to infectious organism History of paraplegia Resolved Problems Problem Noted Date Diagnosed Date Resolved Date Severe sepsis without septic shock 07/25/2020 Neurogenic bladder 1 Probable sepsis 07/25/2020 Encounters Date Type Department Care Team Description 04/28/2024 External Device Data [facility] ABSTRACTION Provider, Abstract from Last 3 Months Immunizations Immunization Administration Dates Next Due (PFIZER)(12 YR UP) COVID-19 VACCINE - EMERGENCY USE AUTHORIZATION, MRNA, [id number](PF) 30 MCG/0.3 ML IM SUSP 12/13/2020,11/20/2020 (PNEUMOVAX 23)(50 YRS UP) PN EUMOCOCCAL POLYSACCHARIDE (PPV23) 0.5 ML, IM 09/05/2020 INFLUENZA VACCINE QUADRIVALE NT 6 MOS UP PF IM 03/22/2020,03/26/2019,05/06/2018 Influenza Seasonal Unspecifi ed Formulation IM 04/28/2017,08/23/2016,04/07/2014 Family History Medical History Relation Name Comments Heart Disease Father Heart Disease Mother Relation Name Status Comments Father Alive Mother Social History Tobacco Use Types Packs/Day Years Used Date Smoking Tobacco: Never Smokeless Tobacco: Never Alcohol Use Standard Drinks/Week Comments No 0.8 (1 standard drink = 0.6 oz p ure alcohol) Comments No Sex and Gender Information Value Date Recorded Sex Assigned at Not on file Legal Sex Female 2:43 AM INTERN ARCHITECT Gender Identity Not on file Sexual Orientation Not on file Occupation Industry Job Start Date Job End Date Not on file Not on file Not on file Not on file Last Filed Vital Signs Vital Sign Reading Time Taken Comments Blood Pressure 124/76 04/20/2021 2:12 PM CDT Pulse 74 04/20/2021 2:12 PM CDT Temperature 37.1 ??C (98.8 ??F) 04/20/2021 2:12 PM CD T Respiratory Rate 18 07/12/2020 9:24 PM INTERN ARCHITECT Oxygen Saturation 97% 04/20/2021 2:12 PM CDT Inhaled Oxygen Concentration - - Weight 91.6 kg (202 lb) 08/07/2020 2:15 PM INTERN ARCHITECT Height 172.7 cm (5' 8 ) 04/20/2021 2:12 PM CDT Body Mass Index 30.71 08/07/2020 2:15 PM INTERN ARCHITECT Plan of Treatment Health Maintenance Due Date Last Done Comments DTAP/TDAP/TD VACCINES (1 - Tdap) 1985 HEPATITIS B VACCINES (1 of 3 - 19+ 3-dose series) 1985 CERVICAL CANCER SCREENING 1996 BREAST CANCER SCREENING 2006 FIT-DNA Q 3 years 09/27/2011 FIT/FOBT Q 1 year 09/27/2011 Flex Sig/CT Colonography Q 5 years 09/27/2011 ZOSTER VACCINE (1 of 2) 2016 INFLUENZA VACCINE (#1) 2024 0, 03/26/2019, 05/06/2018, Additional history exists COVID-19 Vaccine (2023-2 5 season) 2024 12/13/2020, 11/20/2020 COLORECTAL SCREENING 11/28/2029 11/29/2019, 08/03/2019, 08/03/2019 Colorectal Cancer Screening 11/28/2029 Insurance [facility] Advance Directives For more information, please contact: [phone] * Full Code (Latest Code Status on File) Date Activated Date Inactivated Comments 07/02/2020 10:50 PM 07/13/2020 1:53 PM * Full Code Date Activated Date Inactivated Comments 06/26/2011 3:20 AM 06/26/2011 8:40 PM Care Teams Trimmer Machine Operator Relationship Specialty Start Date End Date Fiordaliza Snell MD PCP - General Family Practice 09/09/22
--- OUTSIDE RECORDS SUMMARY | 2024-07-22 18:06 | XMS_ITS | Encounter Summary ---
Author Organization [facility] Address [address] [place] [address] Care Team Providers Care Brake Coupler Dinkey Name Role Phone Fiordaliza Snell MD Primary Care Provider Encounter Details Date Type Department Care Team (Latest Contact Info) Description 09/25/2000 Outpatient Historical [facility] Anjali Garcia MD NO ADDRESS ON FILE Unspecified symptom associated with female genital organs (Primary Dx) Social History Tobacco Use Types Packs/Day Years Used Date Smoking Tobacco: Never Assessed Comments Unknown Sex and Gender Information Value Date Recorded Sex Assigned at Not on file Legal Sex Female 2:43 AM SECONDARY TEACHER Gender Identity Not on file Sexual Orientation Not on file documented as of this encounter Plan of Treatment Not on file documented as of this encounter Visit Diagnoses Diagnosis Unspecified symptom associated with female genital organs- Primary documented in this encounter Additional Health Concerns Infection Onset Date Last Indicated Resolved Time R/O COVID-19 07/02/2020 07/02/2020 07/02/2020 8:53 PM SECONDARY TEACHER MRSA Comment:Resolved per Type and Duration of Precautions Recommended for Selected Infections and Conditions document 2023 update 07/02/2020 07/02/2020 03/16/20 24 10:58 AM CDT R/O COVID-19 07/10/2020 07/10/2020 07/10/2020 5:01 PM SECONDARY TEACHER documented as of this encounter Care Teams Brake Coupler Dinkey Relationship Specialty Start Date End Date Fiordaliza Snell MD PCP - General Family Practice 09/09/22 documented as of this encounter
--- OUTSIDE RECORDS SUMMARY | 2024-07-22 18:06 | XMS_ITS | Encounter Summary ---
Author Organization [facility] Address [address] [place] [address] Care Team Providers Care Nurse Practitioner Adult Name Role Phone Fiordaliza Snell MD Primary Care Provider Encounter Details Date Type Department Care Team (Late st Contact Info) Description 08/24/1998 Outpatient Historical [facility] Matthew Chang MD NO ADDRESS ON FILE Er, Authorized P NO ADDRESS ON FILE Abdominal pain, unspecified site (Primary Dx) Social History Tobacco Use Types Packs/Day Years Used Date Smoking Tobacco: Never Assessed Comments Unknown Sex and Gender Information Value Date Recorded Sex Assigned at Not on file Legal Sex Female 2:43 AM SPORTS INSTRUCTOR Gender Identity Not on file Sexual Orientation Not on file documented as of this encounter Plan of Treatment Not on file documented as of this encounter Visit Diagnoses Diagnosis Abdominal pain, unspecified site- Primary documented in this encounter Additional Health Concerns Infection Onset Date Last Indicated Resolved Time R/O COVID-19 07/02/2020 07/02/2020 07/02/2020 8:53 PM SPORTS INSTRUCTOR MRSA Comment:Resolved per Type and Duration of Precautions Recommended for Selected Infections and Conditions document 2023 update 07/02/2020 07/02/2020 03/16/20 24 10:58 AM CDT R/O COVID-19 07/10/2020 07/10/2020 07/10/2020 5:01 PM SPORTS INSTRUCTOR documented as of this encounter Care Teams Nurse Practitioner Adult Relationship Specialty Start Date End Date Fiordaliza Snell MD PCP - General Family Practice 09/09/22 documented as of this encounter
--- OUTSIDE RECORDS SUMMARY | 2024-07-22 18:06 | XMS_ITS | Encounter Summary ---
Author Organization [facility] Address [address] [place] [address] Care Team Providers Care Staking Engineer Name Role Phone Fiordaliza Snell MD Primary Care Provider Encounter Details Date Type Department Care Team (Latest Contact Info) Description 08/31/1998 Outpatient Historical [facility] Closed fracture of lateral malleolus (Primary Dx) Social History Tobacco Use Types Packs/Day Years Used Date Smoking Tobacco: Never Assessed Comments Unknown Sex and Gender Information Value Date Recorded Sex Assigned at Not on file Legal Sex Female 2:43 AM CASE MAKING MACHINE OPERATOR Gender Identity Not on file Sexual Orientation Not on file documented as of this encounter Plan of Treatment Not on file documented as of this encounter Visit Diagnoses Diagnosis Closed fracture of lateral malleolus- Primary documented in this encounter Additional Health Concerns Infection Onset Date Last Indicated Resolved Time R/O COVID-19 07/02/2020 07/02/2020 07/02/2020 8:53 PM CASE MAKING MACHINE OPERATOR MRSA Comment:Resolved per Type and Duration of Precautions Recommended for Selected Infections and Conditions document 2023 update 07/02/2020 07/02/2020 03/16/20 10:58 AM CDT R/O COVID-19 07/10/2020 07/10/2020 07/10/2020 5:01 PM CASE MAKING MACHINE OPERATOR documented as of this encounter Care Teams Staking Engineer Relationship Specialty Start Date End Date Fiordaliza Snell MD PCP - General Family Practice 09/09/22 documented as of this encounter
--- OUTSIDE RECORDS SUMMARY | 2024-07-22 18:06 | XMS_ITS | Encounter Summary ---
Author Organization [facility] Address [address] [place] [address] Care Team Providers Care Music Internship Name Role Phone Fiordaliza Snell MD Primary Care Provider Encounter Details Date Type Department Care Team (Latest Contact Info) Description 11/23/2000 Inpatient Historical HIS PATIENT IN A BED GarciaAnjali joseph MD NO ADDRESS ON FILE Unspecified symptom associated with female genital organs (Primary Dx) Social History Tobacco Use Types Packs/Day Years Used Date Smoking Tobacco: Never Assessed Comments Unknown Sex and Gender Information Value Date Recorded Sex Assigned at Not on file Legal Sex Female 2:43 AM AUTOMATIC DATA PROCESSING PLANNER Gender Identity Not on file Sexual Orientation Not on file documented as of this encounter Plan of Treatment Not on file documented as of this encounter Visit Diagnoses Diagnosis Unspecified symptom associated with female genital organs- Primary documented in this encounter Additional Health Concerns Infection Onset Date Last Indicated Resolved Time R/O COVID-19 07/02/2020 07/02/2020 07/02/2020 8:53 PM AUTOMATIC DATA PROCESSING PLANNER MRSA Comment:Resolved per Type and Duration of Precautions Recommended for Selected Infections and Conditions document 2023 update 07/02/2020 07/02/2020 03/16/20 24 10:58 AM CDT R/O COVID-19 07/10/2020 07/10/2020 07/10/2020 5:01 PM AUTOMATIC DATA PROCESSING PLANNER documented as of this encounter Care Teams Music Internship Relationship Specialty Start Date End Date Fiordaliza Snell MD PCP - General Family Practice 09/09/22 documented as of this encounter
--- OUTSIDE RECORDS SUMMARY | 2024-07-22 18:06 | XMS_ITS | Encounter Summary ---
Author Organization [facility] Address [address] [place] [address] Care Team Providers Care Pre Kindergarten Teacher Name Role Phone Fiordaliza Snell MD Primary Care Provider Encounter Details Date Type Department Care Team (Late st Contact Info) Description 07/10/1998 Outpatient Historical [facility] Ankita Nelson MD NO ADDRESS ON FILE Er, Authorized P NO ADDRESS ON FILE Metrorrhagia (Primary Dx) Social History Tobacco Use Types Packs/Day Years Used Date Smoking Tobacco: Never Assessed Comments Unknown Sex and Gender Information Value Date Recorded Sex Assigned at Not on file Legal Sex Female 2:43 AM DIRECTOR OF PRODUCT MANAGEMENT Gender Identity Not on file Sexual Orientation Not on file documented as of this encounter Plan of Treatment Not on file documented as of this encounter Visit Diagnoses Diagnosis Metrorrhagia- Primary documented in this encounter Additional Health Concerns Infection Onset Date Last Indicated Resolved Time R/O COVID-19 07/02/2020 07/02/2020 07/02/2020 8:53 PM DIRECTOR OF PRODUCT MANAGEMENT MRSA Comment:Resolved per Type and Duration of Precautions Recommended for Selected Infections and Conditions document 2023 update 07/02/2020 07/02/2020 03/16/20 24 10:58 AM CDT R/O COVID-19 07/10/2020 07/10/2020 07/10/2020 5:01 PM DIRECTOR OF PRODUCT MANAGEMENT documented as of this encounter Care Teams Pre Kindergarten Teacher Relationship Specialty Start Date End Date Fiordaliza Snell MD PCP - General Family Practice 09/09/22 documented as of this encounter
--- OUTSIDE RECORDS SUMMARY | 2024-07-22 18:06 | XMS_ITS | Encounter Summary ---
Author Organization [employer] Address [address] [place] [address] Care Team Providers Care Admissions Supervisor Name Role Phone Fiordaliza Snell MD Primary Care Provider Encounter Details Date Type Department Care Team (Late st Contact Info) Description 04/02/2000 Outpatient Historical [facility] Er, Authorized P NO ADDRESS ON FILE Surgical or other procedure not carried out because of patient's decision (Primary Dx) Social History Tobacco Use Types Packs/Day Years Used Date Smoking Tobacco: Never Assessed Comments Unknown Sex and Gender Information Value Date Recorded Sex Assigned at Not on file Legal Sex Female 2:43 AM NURSE GENERAL DUTY Gender Identity Not on file Sexual Orientation Not on file documented as of this encounter Plan of Treatment Not on file documented as of this encounter Visit Diagnoses Diagnosis Surgical or other procedure not carried out because of patient's decision- Primary documented in this encounter Additional Health Concerns Infection Onset Date Last Indicated Resolved Time R/O COVID-19 07/02/2020 07/02/2020 07/02/2020 8:53 PM NURSE GENERAL DUTY MRSA Comment:Resolved per Type and Duration of Precautions Recommended for Selected Infections and Conditions document 2023 update 07/02/2020 07/02/2020 03/16/20 24 10:58 AM CDT R/O COVID-19 07/10/2020 07/10/2020 07/10/2020 5:01 PM NURSE GENERAL DUTY documented as of this encounter Care Teams Admissions Supervisor Relationship Specialty Start Date End Date Fiordaliza Snell MD PCP - General Family Practice 09/09/22 documented as of this encounter
--- OUTSIDE RECORDS SUMMARY | 2024-07-22 18:06 | XMS_ITS | Continuity of Care Document ---
Author Organization [facility] Address [address] [place] [address] Phone Care Team Providers Care Sales Driver Name Role Phone Shreyas Dumont MD Unavailable Unavailable Allergies, Adverse Reactions, Alerts Substance Reaction Status Criticality Sulfa (Sulfonamide Antibiotics) Hives Active No Information Penicillins Hives Active No Information TAPE, OCCLUSIVE ADHESIVE Active No Information Penicillins Unknown Active No Information Medications Medication Instructions Dosage Effective Dates (start - stop) Status Comments [place] 5 mg-325 mg tablet take 1-2 tabs [...] VIEWS 2015 OFFICE/OUTPATIENT VISIT EST OFFICE/OUTPATIENT VISIT [facility] Advance Directives Directive Yes / No Effective Date File Name No Information Encounters Encounter Description Practice Location Reason(s) For Visit Diagnoses Date Provider Providers Copied on Encounter [facility], [address], [place], [address], [place] [phone] [facility] [place] Ulnar neuropathy at elbow, leftPostopera tive visit 0 7 Tim Pritchett. [address], [place], [place], [id number] . tel: [phone] [facility], [address] [address], [place], [address], [place] tel:[phone] [facility] Ulnar neuropathy at elbow, left 8 7 Paul Handley. [address], [place], [place], [id number] . tel: [phone] [facility], [address] [address], [place], [address], [place] [phone] [facility] Numbness of left hand 7- 7 Tim Pritchett. [address], [place], [place], [id number] . tel: [phone] [facility], [address] [address], [place], [address], [place] [phone] [facility] [place] Postoperative visit 6 Tim Pritchett. [address], [place], [place], [address] . tel: [phone] [facility], [address] [facility], [place], [address], [place] tel:[phone] [facility] Ulnar neuropathy at elbow, left 6 Tmi Pritchett. [address], [place], [place], [address] . tel: [phone] OFFICE/OUTPA TIENT VISIT EST [facility], [address], [place], [address], [place] tel:[phone] [facility] [place] [facility] Pain in left elbowUlnar neuropathy at elbow, left 6 Tim Pritchett. [address], [place], [place], [address] . tel: [phone] OFFICE/OUTPA TIENT VISIT EST [facility], [address], [place], [address], [place] [phone] [facility] Pain in left elbowUlnar neuritis, left 6 Tim Pritchett. [address], [place], [place], [address] . tel: [phone] Referring Provider: [facility] [address], [place], [address]. [phone] OFFICE/OUTPA TIENT VISIT [facility], [address], [place], [address], [place] [phone] [facility] evoh left thumb/hand (chief complaint) Primary osteoarthriti s of first carpometacarp al joint of left handDe Quervain's tenosynovitis 6 Ciera Brice. [address] [place], [place], [address] . tel: [phone] Family History Family Member Type Diagnosis Age At Onset Father Problem (finding) Cancer, unknown Payers Payer name Insurance type Covered constitution [...]
--- OUTSIDE RECORDS SUMMARY | 2024-07-22 18:06 | XMS_ITS | Encounter Summary ---
Author Organization [facility] Address [address] [place] [address] Care Team Providers Care Combination Machine Tool Operator Name Role Phone Fiordaliza Snell MD Primary Care Provider Encounter Details Date Type Department Care Team (Late st Contact Info) Description 04/18/2003 Outpatient Historical [facility] EMERGENCY ROOM Otilia Florentino MD [address] [place], [place] [id number] Er, Authorized P NO ADDRESS ON FILE ABDOMINAL PAIN RLQ (Primary Dx) Social History Tobacco Use Types Packs/Day Years Used Date Smoking Tobacco: Never Assessed Comments Unknown Sex and Gender Information Value Date Recorded Sex Assigned at Not on file Legal Sex Female 2:43 AM DIRECTOR OF SUPPLY CHAIN Gender Identity Not on file Sexual Orientation Not on file documented as of this encounter Plan of Treatment Not on file documented as of this encounter Visit Diagnoses Diagnosis Abdominal pain, right lower quadrant- Primary documented in this encounter Additional Health Concerns Infection Onset Date Last Indicated Resolved Time R/O COVID-19 07/02/2020 07/02/2020 07/02/2020 8:53 PM DIRECTOR OF SUPPLY CHAIN MRSA Comment:Resolved per Type and Duration of Precautions Recommended for Selected Infections and Conditions document 2023 update 07/02/2020 07/02/2020 03/16/20 24 10:58 AM CDT R/O COVID-19 07/10/2020 07/10/2020 07/10/2020 5:01 PM DIRECTOR OF SUPPLY CHAIN documented as of this encounter Care Teams Combination Machine Tool Operator Relationship Specialty Start Date End Date Fiordaliza Snell MD PCP - General Family Practice 09/09/22 documented as of this encounter
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
--- OUTSIDE RECORDS SUMMARY | 2024-07-22 18:07 | XMS_ITS | Encounter Summary ---
Author Organization [facility] Address [address] [place] [address] Care Team Providers Care Checkout Supervisor Name Role Phone Shilpa Frazier DO Primary Care Provider Lidia Barajas MD Unavailable Ab Melara MD Primary Care Provid er Reason for Visit * Reason Onset Date Comments PRECALL ANTICOAG 02/18/2020 Encounter Details Date Type Department Care Team (Late st Contact Info) Description 02/18/2020 Telephone [facility] [address] [id number] [facility] [address] [place] [address] Tori Arias RN PRECA ANTICO Social History Tobacco Use Types Packs/Day Years Used Date Smoking Tobacco: Never Smokeless Tobacco: Never Alcohol Use Standard Drinks/Week Comments Never 0 (1 standard drink = 0.6 oz pur e alcohol) AUDIT-C Answer Date Recorded Q1: How often do you have a drink containing alc ohol? 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 11/16/2019 11/16/2019 02/14/2021 5:00 AM C DT MRSA 12/27/2021 03/06/2022 09/02/2022 3:05 AM SOFTWARE RELEASE ENGINEER documented as of this encounter Care Teams Checkout Supervisor Relationship Specialty Start Date End Date Shilpa Frazier DO PCP - General 06/12/18 07/15/21 Ab Melara MD [address] [address] PCP - General Family Medicine 07/16/21 Lidia Barajas MD Anesthesiologist Anesthesiology 01/13/20 documented as of this encounter
--- OUTSIDE RECORDS SUMMARY | 2024-07-22 18:07 | XMS_ITS ---
Author Organization [facility] Address [address] [place] [address] Care Team Providers Care Civil Engineering Specialist Name Role Phone zzzzMigration, zzzzProvider Unavailable Unav ailable REASON FOR VISIT EMR-Theodore Encounters Encounter Location Date Provider Diagnosis [facility] [address] [place] [address] 04/20/2023 zzzzProvider zzzzMigration Plan Of Treatment No Information Progress Notes * Angelian MOYA FDOB: [birth year] (58 yo F)Acc No.[id number]:04/20/2023 Patient:?Angelina MOYA :1965???Age:57 Y???Sex:Female Address:[facility] [address] [facility] [address] Subjective: * Chief Complaints: * ???EMR-Theodore * Medical History:? * Surgical History:? * Hospitalization/Major Diagno stic Procedure:? * Medications:? Objective: * Vitals:? * Physical Examination:? Assessment: Plan: * Treatment: * Procedure Codes:? * * Date:?
--- OUTSIDE RECORDS SUMMARY | 2024-07-22 18:07 | XMS_ITS | Encounter Summary ---
Author Organization [facility] Healthcare Address [address] [place] [address] Care Team Providers Care Filing Machine Operator Name Role Phone Shilpa Frazier DO Primary Care Provider Lidia Barajas MD Unavailable Ab Melara MD Primary Care Provid er Encounter Details Date Type Department Care Team (Late st Contact Info) Description 03/19/2019 Telephone [facility] - Interventional Radiology [address] [place] [address] Nhung French RN Social History Tobacco Use Types Packs/Day Years Used Date Smoking Tobacco: Never Smokeless Tobacco: Never Alcohol Use Standard Drinks/Week Comments Yes 0 (1 standard drink = 0.6 oz pur e alcohol) PHQ-2 Answer Date Recorded PHQ-2 Score 6 02/18/2019 Comments No Sex and Gender Information Value Date Recorded Sex Assigned at Not on file Legal Sex Female 11:49 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
--- OUTSIDE RECORDS SUMMARY | 2024-07-22 18:07 | XMS_ITS | Encounter Summary ---
Author Organization [facility] Healthcare Address [address] [place] [address] Care Team Providers Care Field Handyman Name Role Phone Shilpa Frazier DO Primary Care Provider Lidia Barajas MD Unavailable Ab Melara MD Primary Care Provid er Encounter Details Date Type Department Care Team (Late st Contact Info) Description 06/15/[address] 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 @ 1043: Spoke with Pam who will relay message to patient's nurse, Ravindra, that the patient has an active MRSA infection and needs to be on contact isolation instead of modified contact isolation. 11/16/2019 11/16/2019 02/14/2021 5:00 AM C DT MRSA 12/27/2021 03/06/2022 09/02/2022 3:05 AM MANAGER RENTAL documented as of this encounter Care Teams Field Handyman Relationship Specialty Start Date End Date Frazier Shilpa BushDO meera PCP - General 06/12/18 07/15/21 Ab Melara MD [address] [id number] PCP - General Family Medicine 07/16/21 Lidia Barajas MD Anesthesiologist Anesthesiology 01/13/20 documented as of this encounter
--- OUTSIDE RECORDS SUMMARY | 2024-07-22 18:07 | XMS_ITS | Clinical Summary ---
Author Organization [facility] al Address [address] [place] [address] Care Team Providers Care Edge Stainer Name Role Phone Lidia Barajas MD Unavailable Ab Melara MD Primary Care Provid er Allergies Active Allergy Reactions Criticality Noted Date Comments Adhesive Tape-Silicones Blisters High Latex Rash,Redness Medium 06/07/2020 Penicillins Rash High Sulfa (Sulfonamide Antibiotics) Anaphylaxis,Itching,Swoll en tongue High Vancomycin Rash Medium 09/21/2020 Medications escitalopram (LEXAPRO) 10 mg tablet Take 20 mg by mouth every morning Active OLANZapine (ZyPREXA) 5 mg tablet Take 5 mg by mouth nightly Active ondansetron ODT (ZOFRAN-ODT) 4 mg disintegrating tablet Take 4 mg by mouth every 6 (six) hours as needed [address] (PROTONIX) 40 mg EC tablet Take 40 mg by mouth 2 (two) times a day 1 Active rOPINIRole (REQUIP) 0.5 mg tablet Take 1 mg by mouth nightly 0 Active atorvastatin (LIPITOR) 10 mg tablet Take 10 mg by mouth nightly Active baclofen (LIORESAL) 10 mg tablet Take 10 mg by mouth daily Active diclofenac sodium (VOLTAREN) 1 % gel Apply 2 g topically 4 (four) times a day as needed Active gabapentin (NEURONTIN) 300 mg capsule Take 900 mg by mouth 3 (three) times a day Active solifenacin (VESIcare) 5 mg tablet Take 10 mg by mouth daily Active acetaminophen 500 mg capsuleIndications :Pain Take 2 capsules (1,000 mg total) by mouth every 6 (six) hours as needed (pain) 60 tablet 1 2 Active oxyCODONE (ROXICODONE) 15 mg immediate release tabletIndications: Pain Take 1 tablet (15 mg total) by mouth every 4 (four) hours as needed for pain 42 tablet 2 Active multivit laecpbhe-pgto-OG-c alcium (THERA-M) 9 mg iron-400 mcg tabletIndications: Vitamin Deficiency Prevention Take 1 tablet by mouth daily Active aspirin 81 mg enteric coated tablet Take 1 tablet (81 mg total) by mouth daily 30 tablet 11 2 Active enoxaparin (LOVENOX) 40 mg/0.4 mL syringeIndications :VTE Prophylaxis Inject 0.4 mL (40 mg total) under the skin daily 2 Active SUMAtriptan (IMITREX) 6 mg/0.5 mL solution Inject 6 mg under the skin as needed Active hydrocortisone (CORTEF) 10 mg tablet Take 1 tablet (10 mg total) by mouth daily 2 Active hydrocortisone (CORTEF) 5 mg tablet Take 1 tablet (5 mg total) by mouth nightly 2 Active cyclobenzaprine (FLEXERIL) 5 mg tablet Take 1 tablet (5 mg total) by mouth 3 (three) times a day as needed for muscle spasms 30 tablet 2 Active Active Problems Problem Noted Date Diagnosed Date Adrenal insufficiency 03/06/2022 Assessment & Plan (03/08/2022 1:41 PM CDT): Patient with a history of multiple steroid courses for spinal injuries. Presented on 02/08 for hypotension with stroke like symptoms and again today with a similar presentation. Had been diagnosed with possible AI at OSH but no formal testing done - am cortisol level of 1.3 on admission and 5.4 at 9am the following day - other AI labs still pending - spoke with endocrine and plan to do 04/03 hydrocortisone with endo follow up - currently norm to hypertensive Assessment & Plan (03/07/2022 11:56 AM CDT): Patient with a history of multiple steroid courses for spinal injuries. Presented on 02/08 for hypotension with stroke like symptoms and again today with a similar presentation. Had been diagnosed with possible AI at OSH but no formal testing done - am cortisol level of 1.3 on admission - held hydrocortisone overnight and Am labs drawn and pending - will speak with endocrine following results for steroid plan - currently norm to hypertensive Assessment & Plan (03/06/2022 1:11 PM CDT): Patient with a history of multiple steroid courses for spinal injuries. Presented on 02/08 for hypotension with stroke like symptoms and again today with a similar presentation. - am cortisol level of 1.3 - spoke with endocrine and will hold this evenings Hydrocortisone and will do roger stim testing in the am Restless leg syndrome 03/06/2022 Assessment & Plan (03/08/2022 1:42 PM CDT): Continue home Requip 1 mg nightly Assessment & Plan (03/07/2022 11:59 AM CDT): Continue home Requip 1 mg nightly Assessment & Plan (03/06/2022 6:23 AM CDT): Continue home Requip 1 mg nightly GERD (gastroesophageal reflux disease) Assessment & Plan (03/08/2022 1:42 PM CDT): Continue home PPI. Assessment & Plan (03/07/2022 11:59 AM CDT): Continue home PPI. Assessment & Plan (03/06/2022 6:25 AM CDT): Continue home PPI. CVA (cerebral vascular accident) 03/06/2022 Assessment & Plan (03/08/2022 1:42 PM CDT): Patient with a history of CVA, presenting with stoke like symptoms (slurred speech, somnolence, lightheadedness) CT stroke in ED negative. Neurology evaluated and did not believe symptoms are due to acute ischemic stroke. Currently back to baseline. - likely recrudescence related to hypotension/UTI - Continue home statin and ASA Assessment & Plan (03/07/2022 11:57 AM CDT): Patient with a history of CVA, presenting with stoke like symptoms (slurred speech, somnolence, lightheadedness) CT stroke in ED negative. Neurology evaluated and did not believe symptoms are due to acute ischemic stroke. Currently back to baseline. - likely recrudescence related to hypotension - Continue home statin and ASA Assessment & Plan (03/06/2022 6:31 AM CDT): Patient with a history of CVA, presenting with stoke like symptoms (slurred speech, somnolence, lightheadedness) CT stroke in ED negative. Neurology evaluated and did not believe symptoms are due to acute ischemic stroke. Currently back to baseline. 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 - Continue home baclofen and PRN flexeril - Gabapentin 900 TID - TRISL pending insurance authorization Assessment & Plan (03/07/2022 11:59 AM CDT): Patient with a history of spinal trauma, prior intraspinal/epidural hematoma s/p multiple spinal surgeries. - Continue home baclofen and PRN flexeril - Gabapentin 900 TID - TRISL Assessment & Plan (03/06/2022 6:26 AM CDT): Patient with a history of spinal trauma, prior intraspinal/epidural hematoma s/p multiple spinal surgeries. - Continue home baclofen and PRN flexeril - Gabapentin 100 mg TID for back pain Chronic pain syndrome 02/08/2022 High risk medication use 02/08/2022 Class 1 obesity due to exces s calories with serious comorbidity and body mass index (BMI) of 32.0 to 32.9 in adult 02/08/2022 Nausea 12/29/2021 Assessment & Plan (12/29/2021 1:14 PM CDT): No nausea at time of my exam this am zofran prn Diarrhea 12/29/2021 Assessment & Plan (12/29/2021 1:14 PM CDT): After drinking a lot of prune juice Told her to stop drinking prune juice No fevers or ab pain Acute midline back pain 12/10/2021 Fever and chills 12/10/2021 Delirium 12/06/2021 Complicated UTI (urinary tract infection) 2021 Assessment & Plan (03/08/2022 1:42 PM CDT): Patient presented with solmunlence, slurred speech, lightheadedness and headache. Stroke workup was negative and on workup was found to have a UTI although unclear if cause for symptoms. Reportedly BP 80s/50 while in PT. - only urinary complaint was foul smell of urine but patient has chronic indwelling SPC - Currently on linezolid for UTI, looking at culture data previously, we can likely change to bactrim on discharge to complete a 10 day course - urine growing MRSA, pending sensitivities Assessment & Plan (03/07/2022 11:57 AM CDT): Patient presented with solmunlence, slurred speech, lightheadedness and headache. Stroke workup was negative and on workup was found to have a UTI although unclear if cause for symptoms. Reportedly BP 80s/50 while in PT. - only urinary complaint was foul smell of urine but patient has chronic indwelling SPC - Currently on linezolid for UTI, looking at culture data previously, we can likely change to bactrim on discharge to complete a 10 day course - this culture is currently pending Assessment & Plan (03/06/2022 1:10 PM CDT): Patient presented with solmunlence, slurred speech, lightheadedness and headache. Stroke workup was negative and on workup was found to have a UTI although unclear if cause for symptoms. Reportedly BP 80s/50 while in PT. 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 Mcnulty is doing well following lumbar fusion surgery from L1-3. She has ongoing neuropathic pain and muscle cramps in her legs. She has maxed out on her gabapentin 3600 mg in a 24 hour , tried info he failed muscle relaxants such as Flexeril, baclofen, tizanidine without sustained relief. Patient reports she has not had been able to have her stimulator tested or evaluated to make sure is working at max capacity. She is at a point in her recovery that she can start using anti-inflammatory medications at this time including Aleve or ibuprofen. Discuss the above with Dr. Louis who feels patient would be best treated with pain management for further medication management possibly with Lyrica, alternative muscle relaxants and further evaluation of her spinal cord stimulator. From a lumbar standpoint, she has progression of fusion based on her lumbar spine x-rays. Would have her follow up with Dr. Louis in November with another set of lumbar AP lateral flexion-extension x-rays. S/P spinal fusion 10/24/2021 Overview (10/24/2021): Added automatically from request for surgery [id number] Other chest pain 01/19/2020 Assessment & Plan (01/19/2020 4:19 PM CDT): Chest pain was atypical. Normal myocardial perfusion study in June 2019. No further evaluation recommended. Echo shows no wall motion abnormalities. Elevated troponin 01/19/2020 Assessment & Plan (01/19/2020 4:19 PM CDT): Mild troponin elevation is consistent with her hypertensive urgency. Hepatic steatosis 01/08/2020 Urinary tract infection asso ciated with catheterization of urinary tract ([facility]) 11/16/2019 Neurogenic bladder 11/16/2019 Assessment & Plan (03/08/2022 1:42 PM CDT): Continue on Oxybutynin XL 10 mg daily last catheter extchange was 2 weeks ago - spoke with IR and no need for exchange this admission Assessment & Plan (03/07/2022 11:59 AM CDT): Continue on Oxybutynin XL 10 mg daily last catheter extchange was 2 weeks ago - spoke with IR and no need for exchange this admission Assessment & Plan (03/06/2022 1:09 PM CDT): Continue on Oxybutynin XL 10 mg daily last catheter extchange was 2 weeks ago - spoke with IR and no need for exchange this admission Suprapubic catheter ([facility]) 11/16/2019 Essential hypertension 11/16/2019 Hypertensive urgency 11/16/2019 Assessment & Plan (01/19/2020 4:20 PM CDT): Blood pressure has normalized. Transaminitis 11/16/2019 Hypokalemia 11/16/2019 History of pulmonary embolism 11/16/2019 Major depressive disorder 11/16/2019 Anxiety and depression 11/16/2019 Assessment & Plan (03/08/2022 1:42 PM CDT): Continue home lexapro and olanzapine. Assessment & Plan (03/07/2022 11:59 AM CDT): Continue home lexapro and olanzapine. Assessment & Plan (03/06/2022 6:18 AM CDT): Continue home lexapro and olanzapine. Generalized abdominal pain 11/16/2019 Overview (11/25/2019): Added automatically from request for surgery [id number] Chronic lumbar radiculopathy 01/21/2019 Chronic back pain 01/21/2019 Spinal stenosis of lumbar region with radiculopa thy 12/04/2018 Assessment & Plan (07/18/2021 10:23 AM QUITLINE COUNSELOR): Assessment Healed fusion L2-5 severe retrolisthesis with stenosis L1-2 with incomplete paraplegia at the L1 level. Her deformity his significantly changed since the CT scan she had done in December of [address] scan lumbar spine referral to Dr. Louis I reinstituted her therapy program a. Assessment & Plan (12/04/2018 3:43 PM CDT): Heterotopic bone formation on the right L4-5 Status post fusion posteriorly from L2-4 Interbody grafting without posterior fixation L4-5 Healed fusion L2-5 Juxta fusional degenerative disc disease L1-2 Recommended treatment would be a right L4-5 interlaminar epidural steroid injection with Dr. Barajas. Foraminal approach would be easily accessible due to her posterior lateral bone grafting and lateral mass fusion. If the epidural steroid injection does not seem to provide her symptomatic relief the next step may be obtaining a EMG nerve conduction study of the bilateral lower extremities to be certain that there is not any other cause to her symptoms. I did have a conversation with the patient regarding these findings and told her that surgery to fix the L4-5 level would be extremely difficult and likely inaccessible. It is likely that she would not get full resolution of her symptoms. The patient asks if we prescribed medical marijuana. I told her that we do not prescribe this medication nor do we have licensure to do so. I also informed her that we no longer prescribe medication for patient's more than 3 months postop from surgery. The patient understood. Other cervical disc disorders at C6-C7 level Overview (06/18/2018): Added automatically from request for surgery [id number] Assessment & Plan (12/04/2018 3:42 PM CDT): Healing fusion C6-7 Continued observation. Assessment & Plan (08/12/2018 10:35 AM QUITLINE COUNSELOR): Assessment Healing fusion C6-7 Plan Talked about do's and don'ts she is still to maintain her initial restrictions and return in 6 weeks for an x-ray Assessment & Plan (06/25/2018 2:43 PM QUITLINE COUNSELOR): Angelina was recently hospitalized at [facility] and diagnosed with a disc osteophyte complex at C6-7 on the right and right C7 weakness and almost complete weakness of her right triceps muscle. Surgery in my opinion is urgently required because of her neurologic deficit she had physical therapy during hospitalization which is did not relieve her symptoms she also had injection which did not relieve her symptoms she was discharged because that was the holiday time and the surgical schedule was extremely tight. I feel waiting any longer for any more conservative treatment would be useless and may risk a prominent neurologic deficit on the right side. I recommend anterior cervical partial vertebrectomy diskectomy and fusion with instrumentation at the C6-7 level. She understands the procedure and I havegone over the details with her and she accepts Osteophyte, vertebrae 06/18/2018 Overview (06/18/2018): Added automatically from request for surgery [id number] Cervical pain (neck) 06/13/2018 Asthma 11/13/2013 Overview (10/02/2016): ASTHMA NOS Cervical radiculopathy 11/13/2013 Overview (10/04/2016): BACK DISORDER NOS Atopic rhinitis 11/13/2013 Overview (10/04/2016): ALLERGIC RHINITIS NOS Spondylosis of cervical alfredo on without myelopathy or radiculopathy Intractable pain Acute bilateral low back pain without sciatica Vestibular dysfunction Assessment & Plan (12/29/2021 1:14 PM CDT): Meclizine prn Can do vestibular therapy if returns Immunizations Name Administration Dates Next Due Influenza, Quadrivalent, Spl it, Preservative Free, Intramuscular 03/22/2020,03/26/2019,05/06/2018 Influenza, Trivalent, IM (MDV) 04/07/2014 Influenza, Trivalent, Preser vative Free, Intramuscular 04/28/2017,08/23/2016 Influenza, Unspecified 05/06/2018,04/30/2017 Pneumococcal Polysaccharide PPV23 09/05/2020 Surgical History Surgery Date Site/Laterality Comments CHOLECYSTECTOMY 06/30/1993 - 06/29/1994 SECTION x 3 EPIDURAL INJECTION LUMBOSACRAL 12/15/2015 N/A EPIDURAL INJECTION LUMBOSACRAL 11/14/2015 N/A EPIDURAL INJECTION LUMBOSACRAL 10/24/2015 N/A APPENDECTOMY LUMBAR FUSION 06/30/2003 - 06/29/2004 L5-S1 SPINAL CORD STIMULATOR IMPLANT 01/28/2017 - 02/27/2017 lumbar HYSTERECTOMY CERVICAL FUSION 07/03/2018 C6-7 ACDF SPINAL FUSION LUMBAR EPIDURAL INJECTION 12/30/2019 Bilateral L4-L5 selective nerve root injection under fluoroscopy, dexamethasone 5 mg bupivacaine 2.5 mg, 2 mL total volume BACK SURGERY SUPRAPUBIC CATHETER INSERTION Medical History Medical History Date Comments Hypertension Asthma mild- hasnt need ed albuterol for 2 years Osteophyte, vertebrae 2017 C6-7 Obesity (BMI 30.0-34.9) BMI 31 Hyperlipidemia Spondylosis of cervical alfredo on without myelopathy or radiculopathy Anxiety and depression Migraines Postmenopausal Irritable bowel disease Inflammatory bowel disease Neuropathy (CMS/HCC) Traumatic subarachnoid hemorrhage (HCC) 2019 Paraplegia (HCC) Suprapubic catheter (CMS/HCC) (HCC) Bladder tumor Acute CVA (cerebrovascular a ccident) (HCC) 12/27/2021 Family History Medical History Relation Name Comments Heart attack Father Hypertension Father Pancreatic cancer Father Heart attack Mother Hypertension Mother small cell carcinoma of the lung Mother Relation Name Status Comments Father (Age 67) Mother (Age 73) Social History Tobacco Use Types Packs/Day Years Used Date Smoking Tobacco: Never Smokeless Tobacco: Never Tobacco Cessation:Counseling Given: Not Answered Alcohol Use Standard Drinks/Week Comments Never 0 (1 standard drink = 0.6 oz pur e alcohol) Social Connection and Isolat ion Panel [NHANES] Answer Date Recorded In a typical week, how many times do you talk on the phone with family, friends, or neighbors? More than three times a week 03/07/2022 How often do you get togethe r with friends or relatives? More than three times a week 03/07/2022 How often do you attend chur ch or episcopal services? More than 4 times per year 03/07/2022 Do you belong to any clubs o r organizations such as taoism groups, unions, fraternal or athletic groups, or school groups? No 03/07/2022 How often do you attend meet ings of the clubs or organizations you belong to? 1 to 4 times per year 03/07/2022 Are you , , di vorced, , never , or living with a partner? 03/07/2022 AUDIT-C Answer Date Recorded Q1: How often do you have a drink containing alcohol? Never 11/22/2021 Q2: How many drinks containi ng alcohol do you have on a typical day when you are drinking? Patient does not drink Q3: How often do you have si x or more drinks on one occasion? Never 11/22/2021 Overall Financial Resource Strain (CARDIA) Answe r Date Recorded How hard is it for you to pa y for the very basics like food, housing, medical care, and heating? Not very hard 03/07/2022 PHQ-2 Answer Date Recorded PHQ-2 Total Score 0 03/05/2022 Hunger Vital Sign Answer Date Recorded Within the past 12 months, y ou worried that your food would run out before you got the money to buy more. Sometimes true Within the past 12 months, t he food you bought just didn't last and you didn't have money to get more. Sometimes true 01/2022 PRAPARE - Transportation Answer Date Re corded In the past 12 months, has l ack of transportation kept you from medical appointments or from getting medications? No 01/2022 In the past 12 months, has l ack of transportation kept you from meetings, work, or from getting things needed for daily living? No 03/07/2022 Housing Stability Vital Sign Answer Rohan e Recorded In the last 12 months, was t here a time when you were not able to pay the mortgage or rent on time? No 03/07/2022 In the last 12 months, how many places have you lived? 1 03/07/2022 In the last 12 months, was t here a time when you did not have a steady place to sleep or slept in a skilled nursing (including now)? No 03/07/2022 Comments No Sex and Gender Information Value Date Recorded Sex Assigned at Not on file Legal Sex Female 11:49 PM QUITLINE COUNSELOR Gender Identity Not on file Sexual Orientation Not on file Obstetrics History Last Filed Vital Signs Vital Sign Reading Time Taken Comments Blood Pressure 147/95 03/08/2022 3:55 PM CDT Pulse 88 03/08/2022 3:55 PM CDT Temperature 37.3 ??C (99.1 ??F) 03/08/2022 3:55 PM CD T Respiratory Rate 16 03/08/2022 8:45 AM CDT Oxygen Saturation 94% 03/08/2022 3:55 PM CDT Inhaled Oxygen Concentration - - Weight 106.1 kg (233 lb 14.4 oz) 2021 10:20 PM CDT Height 174 cm (5' 8.5 ) 03/05/2022 10:2 0 PM CDT Body Mass Index 35.05 03/05/2022 10:20 PM CDT Plan of Treatment Health Maintenance Due Date Last Done Comments Breast Cancer Screening-Mammogram 1966 DTaP/Tdap/Td Vaccine (1 - Tdap) 1977 Hepatitis B Screening 1984 Regular Well Visit/Exam 18-64 1984 Zoster Vaccine (1 of 2) 2016 Pneumococcal vaccine <65 (2 of 2 - PCV) 09/05/2021 09/05/2020 Depression Screening 03/05/2023 03/05/2022, 08/12/19 19 Covid-19 Vaccine (4 - 2023-2 5 season) 2024 07/01/2021, 12/13/2020, 11/20/2020 Influenza Vaccine (#1) 2024 2, 07/01/2021, 03/22/2020, Additional history exists Colon Cancer Screening-Colonoscopy 11/28/2029 11/29/2019 Hepatitis C Screening Completed 11/17/2019 Colon Cancer Screening-CT Colonography Discontinued 11/29/2019 Colon Cancer Screening-DNA Stool Discontinued 11/29/19 Colon Cancer Screening-FIT Discontinued 11/29/2019 Colon Cancer Screening-Sigmoidoscopy Discontinued 11/29/2019 Goals Goal Patient Goal Type Associated Problems Recent Progress Patient-Stated? Author CCM Chronic Pain Care Plan Chronic Care Management Worsening( 10:12 AM QUITLINE COUNSELOR) Milvia Mireles RN Note: Problem: Chronic Pain Goals: 1. Minimize further functional decline 2. Maximize quality of life 3. Control pain Strategies: - Activity/exercise program recommendation - Conservative stepwise pain medicine strategy with multi-disciplinary approach - Recommend healthy lifestyle strategies and compensatory methods as needed Medical Devices Implanted Type Area Track Broom Operator Device Identifier Shelf Expiration Date Model / Serial / Lot Spinal Cord Stimulator-2016 Implanted:01/28 (Quantity not on file) Spinal Cord Stimulator Left: Hip Nevro Spinal Cord Stimulation System [id number] / / Description:Closed Bore only 1.5T or 3T Coils must be transmit/receive. Receive only coils cannot be used. The body coil/ q coil/ internal magnet coil cannot be used. HAYLEY <3.2 W/kg There cannot be any components from any other manufaturer. The device must be turned off via the remote prior to entering Zone 4. The remote cannot enter zone 4. Maximum scan time 30 minutes. After the MRI, the device must be turned back on and checked by the patient's physician to ensure it has returned to pre-MRI settings. [employer] 700-025 I Factor Allograft Putty Syringe Graft 2.5cc Bone - [id number] Implanted:Qty: 1 on 07/03/2018 by Zachary Rothman MD at [facility] N/A: Spine Cervical [employer] 03/29/2021 700-025 / / [id number] Plate 1-Level 14 Mm Cervical - [id number] Implanted:Qty: 1 on 07/03/2018 by Zachary Rothman MD at [facility] N/A: Spine Cervical [employer] 30-0114 / / Screw 4.0x14mm Self Drilling Variable - [id number] Implanted:Qty: 4 on 07/03/2018 by Zachary Rothman MD at [facility] N/A: Spine Cervical [employer] 31-4014 / / Cage Spinal [id number] 7 Degree Porous Coated Latex Free - [id number] Implanted:Qty: 1 on 07/03/2018 by Zachary Rothman MD at [facility] N/A: Spine Cervical Spinal Elements [id number] / / Depuy Synthes Spine [id number] Substitute Bone Graft Fibergraft Gps Medium Putty 6cc - [id number] Implanted:Qty: 1 on 11/29/2021 by Dave Louis MD at [facility] N/A: Lumbar-Sa cral Spine Depuy [employer]ynthe[employer] Spine [id number] 10/18/2023 [id number] / / [id number] [employer] Osteosponge Allograft Chips Radiolucent Thk4-10mm Graft 30cc Bone [id number] - [id number] - [id number] Implanted:Qty: 1 on 11/29/2021 by Dave Louis MD at [facility] N/A: Lumbar-Sa cral Spine [employer] 10/14/2024 [id number] / [id number] / Depuy Synthes Spine Cage Post Spinal 4d Plif Ti [id number] - [id number] Implanted:Qty: 1 on 11/29/2021 by Dave Louis MD at [facility] N/A: Lumbar-Sa cral Spine Depuy Synthes Spine [id number] 07/30/2024 [id number] / / [id number] Depuy Synthes Spine Expedium 5.5mm 80mm Line Prebent Rodney Spinal Titanium Nonsterile [id number] - [id number] Implanted:Qty: 1 on 11/29/2021 by Dave Louis MD at [facility] N/A: Lumbar-Sa cral Spine Depuy Synthes Spine [id number] / / Depuy Synthes Spine Expedium 5.5mm 85mm Line Prebent Rodney Spinal Titanium Nonsterile [id number] - [id number] Implanted:Qty: 1 on 11/29/2021 by Dave Louis MD at [facility] N/A: Lumbar-Sa cral Spine Depuy Synthes Spine [id number] / / Depuy Synthes Spine Expedium 5.5mm 45mm Polyaxial Spine Screw Bone Titanium 5.5mm Rodney [id number] - [id number] Implanted:Qty: 2 on 11/29/2021 by Dave Louis MD at [facility] N/A: Lumbar-Sa cral Spine Depuy Synthes Spine [id number] / / Depuy Synthes Spine Expedium 6.5mm 45mm Polyaxial Spine Screw Bone Titanium 5.5mm Rodney [id number] - [id number] Implanted:Qty: 3 on 11/29/2021 by Dave Louis MD at [facility] N/A: Lumbar-Sa cral Spine Depuy Synthes Spine [id number] / / Depuy Synthes Spine Expedium 1 Inner Monoaxial Spine Screw Set Titanium [id number] - [id number] Implanted:Qty: 6 on 11/29/2021 by Dave Louis MD at [facility] N/A: Lumbar-Sa cral Spine Depuy Synthes Spine [id number] / / Depuy Synthes Spine Expedium 7mm 45mm 1 Innie Polyaxial Spine Screw Bone Titanium [id number] - [id number] Implanted:Qty: 1 on 11/29/2021 by Dave Louis MD at [facility] N/A: Lumbar-Sa cral Spine Depuy Synthes Spine [id number] / / Procedures Procedure Name Priority Date/Time Associated Diagnosis Comments COLONOSCOPY 11/29/2019 8:04 AM CDT HEPATITIS PANEL, ACUTE Routine 11/17/2019 4:13 AM CDT from Last 3 Months or Most Recently Relevant to Health Maintenance Results * COLONOSCOPY (11/29/2019 8:04 AM CDT) Anatomical Region Laterality Modality Other Narrative Procedure Note Denys Calderon MD - 11/29/2019 8:04 AM CDT ENDOSCOPY LAB Patient Name: Angelina Mcnulty Procedure Date: 11/29/2019 8:04 AM Admit Type: Inpatient Room: [facility] 4 Date of : 1965 Instrument Name: -[id number] Gender: Female Note Status: Finalized Procedure: Colonoscopy Indications: High risk colon cancer surveillance: Personal historyof colonic polyps, Last colonoscopy 5 years ago, known chronic IBS 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 Referring MD: Shilpa Arzate, Medicines: Propofol per Anesthesia Complications: No immediate complications. Estimated Blood Loss: Estimated blood loss: none. Procedure: Pre-Anesthesia Assessment: - The risks and benefits of the procedure and thesedation options and risks were discussed with the patient. All questions were answered and informed consent wasobtained. The benefits, risks and alternatives of the procedureand sedation were discussed and informed consent wasobtained. All questions were answered. Please refer to the signed informed consent document in the medical record. Thescope was passed under direct vision. The Colonoscope was introduced through the anus and advanced to the thececum, identified by appendiceal orifice and ileocecal valve.The quality of the bowel preparation was evaluated usingthe BBPS ([place] Bowel Preparation Scale) with scores of: Right Colon = 3, Transverse Colon = 3 and Left Colon =3 (entire mucosa seen well with no residual staining,small fragments of stool or opaque liquid). The total BBPSscore equals 9. The bowel preparation used was MoviPrep.Bowel prep was administered using a split dose. Findings: Diverticulosis The entire examined colon appeared normal on direct and retroflexion views. Impression: - The entire examined colon is normal on direct and retroflexion views. - No specimens collected. Recommendation: - Repeat colonoscopy in 5 years for surveillance. Attending Participation: I personally performed the entire procedure. Electronically signed by Dr. Denys Calderon MD Denys Calderon M.D. 11/29/2019 8:46:16 AM Number of Addenda: 0 Note Initiated On: 11/29/2019 8:04 AM us Denys Calderon MD ENDOSCOPY PROCEDURES Final R esult * Hepatitis panel, acute (11/17/2019 4:13 AM CDT) Hep A IgM Nonreactive Nonreactive [facility] Comment: Interpretive Data: If Hep A IgM Ab is reported as Equivocal, a new sample should be drawn in two weeks for testing. Current interpretive data was last revised on 19. Hep B core IgM Nonreactive [facility] Comment: Interpretive Data If HepB Core IgM Ab is reported as Equivocal, a new sample should be drawn in two weeks for testing. Current interpretive data was last revised on 19. Hep C Ab Nonreactive Nonreactive [facility] Comment: Interpretive Data Nonreactive: Antibodies to HCV not detected. Does NOT exclude the possibility of recent exposure to HCV. Equivocal: Equivocal for HCV antibodies. Supplemental molecular testing will be automatically performed to determine infection status in accordance with current CDC screening recommendations. ?? Reactive: Positive for HCV antibodies. ??This may represent current or past HCV infection. Supplemental molecular testing will be automatically performed to determine ??current infection status in accordance with current CDC screening recommendations. Interpretive data was last revised on 2019. HepBsAg Nonreactive Nonreactive [facility] Blood specimen (specimen) 11/17/2019 4:13 AM CDT 11/17/2019 4:31 AM CDT [facility] MICROBIOLOGY - GENERAL ORDERABLES Final Result [facility] [address] Department [place] [address] from Last 3 Months or Most Recently Relevant to Health Maintenance Insurance MEDICARE SOLUTIONS [facility] MEDICARE [facility] MEDIC[facility] Address: [id number] [place] [id number] [address] [place], [place] [id number] [employer] MEDICARE DUSTY ACEVEDO [address] [place], [place] [address] [employer] MEDICARE Advance Directives For more information, please contact: [phone] Documents on File Type Date Recorded Patient Rand Sewer Expl anation Power of Word Processor 11/29/2021 11:46 AM * Full Code (Latest Code Status on File) Date Activated Date Inactivated Comments 03/05/2022 10:42 PM 03/08/2022 9:35 PM * Full Code Date Activated Date Inactivated Comments 02/08/2022 9:52 PM 02/19/2022 9:52 PM * Full Code Date Activated Date Inactivated Comments 12/27/2021 4:38 PM 12/29/2021 10:48 PM * Full Code Date Activated Date Inactivated Comments 12/10/2021 4:45 AM 12/15/2021 12:17 AM * Full Code Date Activated Date Inactivated Comments 11/29/2021 5:51 PM 12/06/2021 9:21 PM Healthcare Agents on File Name Relationship Healthcare Agent Relationshi p Communication Zachary Mcnulty Spouse Health Care Agent Christoph Freedman Son First Alternate Health Care Agent Care Teams Edge Stainer Relationship Specialty Start Date End Date Ab Melara MD [address] [facility] [address] [place] [address] PCP - General Family Medicine 07/16/21 Lidia Barajas MD Anesthesiologist Anesthesiology 01/13/20
--- OUTSIDE RECORDS SUMMARY | 2024-07-22 18:07 | XMS_ITS | Encounter Summary ---
Author Organization [facility] Healthcare Address [address] [place] [address] Care Team Providers Care Elevator Runner Name Role Phone Unknown, Notinffroylan Primary Care Provider Unavail able Shilpa Frazier DO Primary Care Provider Lidia Barajas MD Unavailable Ab Melara MD Primary Care Provid er Encounter Details Date Type Department Care Team (Late st Contact Info) Description 04/07/2018 Telephone [facility] [address] [facility] 1st [place] [address] Kate Johnson, RT Social History Tobacco Use Types Packs/Day Years Used Date Smoking Tobacco: Never Smokeless Tobacco: Never Alcohol Use Standard Drinks/Week Comments No 0 (1 standard drink = 0.6 oz pur e alcohol) Comments No Sex and Gender Information Value Date Recorded Sex Assigned at Not on file Legal Sex Female 11:49 PM ACID SPLICER Gender Identity Not on file Sexual Orientation [...] DT MRSA 12/27/2021 03/06/2022 09/02/2022 3:05 AM ACID SPLICER documented as of this encounter Care Teams Elevator Runner Relationship Specialty Start Date End Date Unknown, Notinfile PCP - General 08/28/17 06/11/18 Shilpa Frazier DO PCP - General 06/12/18 07/15/21 Ab Melara MD [address] [address] PCP - General Family Medicine 07/16/21 Lidia Barajas MD Anesthesiologist Anesthesiology 01/13/20 documented as of this encounter
--- OUTSIDE RECORDS SUMMARY | 2024-07-22 18:07 | XMS_ITS | Encounter Summary ---
Author Organization [facility] Healthcare Address [address] [place] [address] Care Team Providers Care Physical Fitness Trainer Name Role Phone Shilpa Frazier DO Primary Care Provider Lidia Barajas MD Unavailable Ab Melara MD Primary Care Provid er Encounter Details Date Type Department Care Team (Late st Contact Info) Description 03/15/2019 Telephone [facility] - Interventional Radiology [address] [place] [address] Philly Aguirre RN Social History Tobacco Use Types Packs/Day Years Used Date Smoking Tobacco: Never Smokeless Tobacco: Never Alcohol Use Standard Drinks/Week Comments Yes 0 (1 standard drink = 0.6 oz pur e alcohol) PHQ-2 Answer Date Recorded PHQ-2 Score 6 02/18/2019 Comments No Sex and Gender Information Value Date Recorded Sex Assigned at Not on file Legal Sex Female 11:49 PM ENGLISH DRAWER Gender Identity Not on file Sexual Orientation [...] DT MRSA 12/27/2021 03/06/2022 09/02/2022 3:05 AM ENGLISH DRAWER documented as of this encounter Care Teams Physical Fitness Trainer Relationship Specialty Start Date End Date Shilpa Frazier DO PCP - General 06/12/18 07/15/21 Ab Melara MD [address] [address] PCP - General Family Medicine 07/16/21 Lidia Barajas MD Anesthesiologist Anesthesiology 01/13/20 documented as of this encounter
--- OUTSIDE RECORDS SUMMARY | 2024-07-22 18:07 | XMS_ITS | Encounter Summary ---
Author Organization [facility] Healthcare Address [address] [facility] [address] [place] [address] Care Team Providers Care Corporate Webmaster Name Role Phone Shilpa Frazier DO Primary Care Provider Lidia Barajas MD Unavailable Ab Melara MD Primary Care Provid er Encounter Details Date Type Department Care Team (Late st Contact Info) Description 04/24/2020 Telephone [facility] Center at [facility] [address] [facility] 1st [place] [address] Tori Arias, RN Social History Tobacco Use Types Packs/Day [...] on file Legal Sex Female 11:[address]PERVISOR Gender Identity Not on file Sexual Orientation [...] DT MRSA 12/27/2021 03/06/2022 09/02/2022 3:[address] SUPERVISOR documented as of this encounter Care Teams Corporate Webmaster Relationship Specialty Start Date End Date Shilpa Frazier DO PCP - General 06/12/18 07/15/21 Ab Melara MD [address] [address] PCP - General Family Medicine 07/16/21 Lidia Barajas MD Anesthesiologist Anesthesiology 01/13/20 documented as of this encounter
--- OUTSIDE RECORDS SUMMARY | 2024-07-22 18:07 | XMS_ITS | Referral Summary ---
Author Organization [facility] al Address [address] [place] [address] Care Team Providers Care Hot Punch Press Operator Name Role Phone Lidia Barajas MD Unavailable [...] for pain 42 tablet 2 Active multivit hgotifye-cojo-RJ-c alcium (THERA-M) 9 mg iron-400 mcg tabletIndications: [...] (10/24/2021): Added automatically from request for surgery [id number] Postlaminectomy syndrome, lumbar region 10/25/19 Overview (10/24/2021): Added automatically from request for surgery [id number] Assessment & Plan (07/03/2022 3:48 PM FISHERIES OFFICER): Ms. Mcnulty is doing well following lumbar [...] (10/24/2021): Added automatically from request for surgery [id number] Other chest pain 01/19/2020 Assessment & Plan [...] asso ciated with catheterization of urinary tract ([facility]) 11/16/2019 Neurogenic bladder 11/16/2019 Assessment & Plan [...] need for exchange this admission Suprapubic catheter ([facility]) 11/16/2019 Essential hypertension 11/16/2019 Hypertensive urgency 11/16/2019 [...] (11/25/2019): Added automatically from request for surgery [id number] Chronic lumbar radiculopathy 01/21/2019 Chronic back pain 01/21/2019 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 Assessment & Plan (08/12/2018 10:35 AM FISHERIES OFFICER): Assessment Healing fusion C6-7 Plan Talked about do's and don'ts she is still to maintain her initial restrictions and return in 6 weeks for an x-ray Assessment & Plan (06/25/2018 2:43 PM FISHERIES OFFICER): Angelina was recently hospitalized at [facility] and diagnosed with a disc osteophyte [...] (06/18/2018): Added automatically from request for surgery [id number] Cervical pain (neck) 06/13/2018 Asthma 11/13/2013 Overview [...] Influenza, Unspecified 05/06/2018,04/30/2017 Pneumococcal Polysaccharide PPV23 09/05/2020 Social History Tobacco Use Types Packs/Day Years [...] often do you attend chur ch or jehovah's witness services? More than 4 times per year 03/07/2022 Do you belong to any clubs o r organizations such as restoration groups, unions, fraternal or athletic groups, or [...] place to sleep or slept in a residential (including now)? No 03/07/2022 Comments No Sex and Gender Information Value Date Recorded Sex Assigned at Not on file Legal Sex Female 11:49 PM FISHERIES OFFICER Gender Identity Not on file Sexual Orientation [...] 03/05/2022 10:20 PM CDT Plan of Treatment Not on file Goals Goal Patient Goal Type Associated Problems Recent Progress Patient-Stated? Author CCM Chronic Pain Care Plan Chronic Care Management Worsening( 10:12 AM FISHERIES OFFICER) Milvia Mireles RN Note: Problem: Chronic Pain Goals: 1. Minimize further functional decline 2. Maximize quality of life 3. Control pain Strategies: - Activity/exercise program recommendation - Conservative stepwise pain medicine strategy with multi-disciplinary approach - Recommend healthy lifestyle strategies and compensatory methods as needed Medical Devices Implanted Type Area Kiln Maintenance Device Identifier Shelf Expiration Date Model / Serial / Lot Spinal Cord Stimulator-2016 Implanted:01/28 (Quantity not on file) Spinal Cord Stimulator Left: Hip Nevro Spinal Cord Stimulation System [id number] / / Description:Closed Bore only 1.5T or [...] ensure it has returned to pre-MRI settings. [employer] 700-025 I Factor Allograft Putty Syringe Graft 2.5cc Bone - [id number] Implanted:Qty: 1 on 07/03/2018 by Zachary Rothman MD at [facility] N/A: Spine Cervical [employer] Inc 03/29/2021 700-025 / / [id number] Plate 1-Level 14 Mm Cervical - [id number] Implanted:Qty: 1 on 07/03/2018 by Zachary Rothman MD at [facility] N/A: Spine Cervical [employer] 30-0114 / / Screw 4.0x14mm Self Drilling Variable - [id number] Implanted:Qty: 4 on 07/03/2018 by Zachary Rothman MD at [facility] N/A: Spine Cervical [employer] [id number] / / Cage Spinal [id number] 7 Degree Porous Coated Latex Free - [id number] Implanted:Qty: 1 on 07/03/2018 by Zachary Rothman MD at [facility] N/A: Spine Cervical Spinal Elements [id number] / / Depuy Synthes Spine [id number] Substitute Bone Graft Fibergraft Gps Medium Putty 6cc - [id number] Implanted:Qty: 1 on 11/29/2021 by Dave Louis MD at [facility] N/A: Lumbar-Sa cral Spine Depuy Synthes Spine [id number] 10/18/2023 [id number] / / [id number] [employer] Inc Osteosponge Allograft Chips Radiolucent Thk4-10mm Graft 30cc Bone [id number] - [id number] - [id number] Implanted:Qty: 1 on 11/29/2021 by Dave Louis MD at [facility] N/A: Lumbar-Sa cral Spine [employer] 10/14/2024 [id number] / [id number] / Depuy Synthes Spine Cage Post Spinal 4d Plif Ti [id number] - [id number] Implanted:Qty: 1 on 11/29/2021 by Dave Louis MD at [facility] N/A: Lumbar-Sa cral Spine Depuy Synthes Spine [id number] 07/30/2024 [id number] / / [id number] Depuy Synthes Spine Expedium 5.5mm 80mm Line Prebent Rodney Spinal Titanium Nonsterile [id number] - [id number] Implanted:Qty: 1 on 11/29/2021 by Dave Louis MD at [facility] N/A: Lumbar-Sa cral Spine Depuy Synthes Spine [id number] / / Depuy Synthes Spine Expedium 5.5mm 85mm Line Prebent Rodney Spinal Titanium Nonsterile [id number] - [id number] Implanted:Qty: 1 on 11/29/2021 by Dave Louis MD at [facility] N/A: Lumbar-Sa cral Spine Depuy Synthes Spine [id number] / / Depuy Synthes Spine Expedium 5.5mm 45mm Polyaxial Spine Screw Bone Titanium 5.5mm Rodney [id number] - [id number] Implanted:Qty: 2 on 11/29/2021 by Dave Louis MD at [facility] N/A: Lumbar-Sa cral Spine Depuy Synthes Spine [id number] / / Depuy Synthes Spine Expedium 6.5mm 45mm Polyaxial Spine Screw Bone Titanium 5.5mm Rodney [id number] - [id number] Implanted:Qty: 3 on 11/29/2021 by Dave Louis MD at [facility] N/A: Lumbar-Sa cral Spine Depuy Synthes Spine [id number] / / Depuy Synthes Spine Expedium 1 Inner Monoaxial Spine Screw Set Titanium [id number] - [id number] Implanted:Qty: 6 on 11/29/2021 by Dave Louis MD at [facility] N/A: Lumbar-Sa cral Spine Depuy Synthes Spine [id number] / / Depuy Synthes Spine Expedium 7mm 45mm 1 Innie Polyaxial Spine Screw Bone Titanium [id number] - [id number] Implanted:Qty: 1 on 11/29/2021 by Dave Louis MD at [facility] N/A: Lumbar-Sa cral Spine Depuy Synthes Spine [id number] / / Procedures Procedure Name Priority Date/Time [...] 11/29/2019 8:04 AM Admit Type: Inpatient Room: [facility] Date of : 1965 Instrument Name: -[id number] [...] the bowel preparation was evaluated usingthe BBPS ([place] Bowel Preparation Scale) with scores of: Right [...] 0 Note Initiated On: 11/29/2019 8:04 AM Denys Calderon MD ENDOSCOPY PROCEDURES Final R esult * Hepatitis panel, acute (11/17/2019 4:13 AM CDT) Hep A IgM Nonreactive Nonreactive [facility] Comment: Interpretive Data: If Hep A IgM Ab is reported as Equivocal, a new sample should be drawn in two weeks for testing. Current interpretive data was last revised on 19. Hep B core IgM Nonreactive Nonreactive [facility] Comment: Interpretive Data If HepB Core IgM Ab is reported as Equivocal, a new sample should be drawn in two weeks for testing. Current interpretive data was last revised on 19. Hep C Ab Nonreactive Nonreactive [facility] Comment: Interpretive Data Nonreactive: Antibodies to [...] last revised on 2019. HepBsAg Nonreactive Nonreactive [facility] Blood specimen (specimen) 11/17/2019 4:13 AM CDT 11/17/2019 4:31 AM CDT [facility] MICROBIOLOGY - GENERAL ORDERABLES Final Result [facility] [address] Department [place] [address] from Last 3 Months or Most Recently Relevant to Health Maintenance Insurance MEDICARE SOLUTIONS [facility] MEDIC[facility] Address: [address] [address] [place] [address] [facility] INCLUDE [address] BEDS AT THE [facility] MEDICARE Address: [address] [place] [address] COUNTS INCLUDE 234 BEDS AT THE [facility] MEDICARE [employer] MEDICARE INCLUDE 234 BEDS AT THE [facility] MEDICARE Address: [address] [place] [address] Advance Directives For more information, please contact: [phone] Documents on File Type Date Recorded Patient Physical Therapy Manager Expl anation Power of Dining Room Coordinator 11/29/2021 11:46 AM * Full Code (Latest [...] Agents on File Name Relationship [facility] Communication Zachary Mcnulty Spouse Health Care Agent Christoph Freedman Son First Alternate Health Care Agent Care Teams Hot Punch Press Operator Relationship Specialty Start Date End Date Ab Melara MD [address] [phone] PCP - General Family Medicine 07/16/21 Lidia Barajas MD Anesthesiologist Anesthesiology 01/13/20
--- OUTSIDE RECORDS SUMMARY | 2024-07-22 18:08 | XMS_ITS | Clinical Summary ---
Author Organization [facility] Address [address] [place] [address] Phone Care Team Providers Care Residence Supervisor Name Role Phone Unavailable Primary Care Provider Unavailabl e Social History Tobacco Use Types Packs/Day Years Used Date Smoking Tobacco: Never Assessed Comments Unknown Sex and Gender Information Value Date Recorded Sex Assigned at Not on file Legal Sex Female 3:52 AM VERMIN EXTERMINATOR Gender Identity Not on file Sexual Orientation Not on file Plan of Treatment Health Maintenance Due Date Last Done Comments Hepatitis C Virus (HCV) Screening 1965 TdaP Immunization 1965 Hepatitis B Immunization (1 of 3 - 19+ 3-dose series) 1985 Pap Smear 09/27/1987 Cervical Cancer Screening (CCS) 1996 HPV/Cotest 1996 Colonoscopy 09/27/2011 Colorectal Cancer Screening 09/27/2011 Cologuard 2016 Immunochemical Fecal Occult Blood 2016 Mammogram 2016 Pneumococcal Immunization (5 0+ years) (1 of 1 - PCV) 2016 Zoster Immunization (1 of 2) 2016 Influenza Immunization (#1) 2024 SARS-COV-2 Immunization ( season) 2024 Respiratory Syncytial Virus (RSV) Immunization (Adult) (1 - 1-dose 75+ series) 2041 Meningococcal Immunization (ACWY) Aged Out No longer eligible based on patient's age to complete this topic Pneumococcal Immunization Combined Aged Out No longer eligible based on patient's age to complete this topic Rotavirus Immunization Aged Out No lo nger eligible based on patient's age to complete this topic
--- OUTSIDE RECORDS SUMMARY | 2024-07-22 18:08 | XMS_ITS | Patient Health Record ---
Author Organization [facility] Address [address] [facility] [address] [place] [address] Support Name Relationship Address Phone Angelina Mcnulty Guarantor Unknown [phone] Reason For Referral No Information Plan Of Treatment No Information
--- OUTSIDE RECORDS SUMMARY | 2024-07-22 18:08 | XMS_ITS ---
Author Organization [facility] ceci Address [address] [facility] [address] [place] [address] Care Team Providers Care Pizza Hut Assistant Name Role Phone zzzzMigration, zzzzProvider Unavailable Unav ailable REASON FOR VISIT EMR-Theodore Encounters Encounter Location Date Provider Diagnosis [facility] [address] [facility] [address] [place] [address] 04/19/2023 zzzzProvider zzzzMigration Plan Of Treatment No Information Progress Notes * Angelina MOYA FDOB: [birth year] (58 yo F)Acc No.[id number]:04/19/2023 Patient:?Angelina MOYA :1965???Age:57 Y???Sex:Female Address:[facility] [address] [facility] [address] Subjective: * Chief Complaints: * ???EMR-Theodore * Medical History:? * Surgical History:? * Hospitalization/Major Diagno stic Procedure:? * Medications:? Objective: * Vitals:? * Physical Examination:? Assessment: Plan: * Treatment: * Procedure Codes:? * * Date:?
[2024-07-22 20:33] VITALS: BP 123/66; PULSE 101; RESP 18; TEMP 36.3; O2SAT 96
[2024-07-22] MEDS: ZOLPIDEM TARTRATE (*CRX) 5 MG TABLET PO (20:55)
[2024-07-22] MEDS: SENNA/DOCUSATE SODIUM TABLET 1 TAB PO (20:55)
[2024-07-22] MEDS: KETOROLAC 30 MG/ML VIAL (*BKC) IV PUSH (22:15)
[2024-07-23] MEDS: HYDROmorphone HCL INJ (*CRX) 1 MG/ML SYR 0.5 MG IV PUSH ×3 (00:45→10:40)
[2024-07-23 06:00] VITALS: BP 142/89; PULSE 66; RESP 16; TEMP 36.6; O2SAT 95
[2024-07-23] MEDS: MEROPENEM 1 GM/NS 100 ML 1 GM/100 ML BAG IVPB (06:15)
[2024-07-23 06:31] LABS: Basophils Absolute Auto 0.1 K/mm3 (0.0-0.1); Basophils Percent Auto 0.7 % (0.2-1.2); Eosinophils Absolute Auto 0.2 K/mm3 (0-0.3); Eosinophils Percent Auto 2.6 % (0-4.4); Hematocrit 38.5 % (37.0-47.0); Hemoglobin 12.7 g/dL (12.0-15.0); Immature Granulocyte Absolute 0.02 K/mm3 (0.00-0.031); Immature Granulocyte Percent A 0.3 % (0-0.5); Lymphocytes Absolute Auto 2.48 K/mm3 (0.9-3.2); Lymphocytes Percent Auto 33.9 % (18.3-44.2); Mean Corpuscular Hemoglobin 28.3 pg (26-34); Mean Corpuscular Volume 85.9 fl (80-100); Mean Platelet Volume 9.9 fl (7.4-10.4); Monocytes Absolute Auto 0.6 K/mm3 (0.1-0.6); Monocytes Percent Auto 7.9 % (2.6-8.5); Neutrophils Percent Auto 54.6 % (45.5-73.1); Platelet Count Result 192 k/mm3 (150-375); Red Blood Count 4.48 M/mm3 (4.2-5.4); Red Cell Distribution Width 13.9 % (11.5-14.5); White Blood Count 7.3 K/mm3 (4.5-10.0)
[2024-07-23 06:37] LABS: Alanine Aminotransferase 29 U/L (6-35); Albumin Level 3.5 g/dL (3.5-5.1); Alkaline Phosphatase 81 U/L (38-126); Anion Gap 9 mmol/L (4-12); Aspartate Amino Transferase 56 U/L (14-36); Bilirubin,Total 0.7 mg/dL (0.2-1.3); Blood Urea Nitrogen 17 mg/dL (7-17); Calcium 8.3 mg/dL (8.4-10.2); Carbon Dioxide 28 mmol/L (22-30); Chloride 98 mmol/L (98-107); Estimated CRCL calculation 127 ml/min; Estimated Glomerular Filt Rate > 60; Glucose 102 mg/dL (65-110); Magnesium 2.2 mg/dL (1.6-2.3); Potassium 4.4 mmol/L (3.4-5.0); Sodium 135 mmol/L (137-145)
[2024-07-23] MEDS: GABAPENTIN 300 MG CAPSULE 900 MG PO ×3 (10:29→18:19)
[2024-07-23] MEDS: ASPIRIN 81 MG ENTERIC TABLET PO (10:29)
[2024-07-23 10:30] VITALS: PULSE 66
[2024-07-23] MEDS: ESCITALOPRAM OXALATE 10 MG TABLET 20 MG PO (10:30)
[2024-07-23] MEDS: ATORVASTATIN 10 MG TABLET PO (10:30)
[2024-07-23] MEDS: METOPROLOL SUCCINATE EXT REL 12.5 MG TABCR PO (10:30)
[2024-07-23] MEDS: LOSARTAN POTASSIUM 100 MG TABLET PO (10:30)
[2024-07-23] MEDS: FUROSEMIDE 20 MG TABLET PO (10:30)
[2024-07-23] MEDS: DICLOFENAC SODIUM 1% 100 GM GEL (*BKC) 1 APPLIC TOPICAL ×3 (10:36→21:12)
[2024-07-23] MEDS: rOPINIRole HCL 0.5 MG TABLET PO ×2 (10:36→21:12)
[2024-07-23] MEDS: OLANZapine 5 MG TABLET PO (10:36)
[2024-07-23] MEDS: SENNA/DOCUSATE SODIUM TABLET 1 TAB PO (10:37)
[2024-07-23 14:00] VITALS: BP 116/52; PULSE 78; RESP 18; TEMP 35.9; O2SAT 98
--- NOTE | 2024-07-23 14:30 | P.PNIM_ITS ---
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 Patient reported symptoms started about 3 weeks ago but significantly worsened over the past 4 days prior to admission urine output has become cloudy and had increase in segment when she cleaned her bag. Patient with HX of urostomy * CT abdomen/pelvis: 1. Left-sided ileal conduit with fat stranding and trace fluid in the stoma, consistent with inflammation versus scarring. 2. Cystic lesions of the pancreas measuring up to 12 mm, stable from 03/20/2023. The differential diagnosis includes pseudocyst, intraductal papillary mucinous neoplasm (IPMN), mucinous cystic neoplasm (MCN), serous cystadenoma, and neuroendocrine tumor. Consider abdomen MRI without and with contrast in one year. * Wound culture of stoma * UA: cloudy, 1+ blood, positive nitrates, 2+ leuks, 3-5 RBC, 51-100 WBC, 4+ bacteria, and few epithelial cells * UC with Gram-negative bacilli yet to be identified * previous micro reviewed, Enterobacter with multiple resistances on 03/20/2023. Was susceptible to meropenem. * started on meropenem on 07/20 pending cultures * IV fluids: 100 mL/hour x1 L. * analgesics and antipyretics p.r.n. * Blood Cultures NGTD Urine culture grew Citrobacter freundii. With switch antibiotic to levofloxacin complete 7 days course If pain control is better will discharge home (2) Hypertension: Qualifiers: Hypertension type: primary hypertension Qualified Code(s): I10 - Essential (primary) hypertension Code(s): I10 - Essential (primary) hypertension Status: Chronic Assessment and Plan: * chronic, currently 123/60 * continue home medications: Losartan, metoprolol * BP monitoring per unit protocol (3) Sleep apnea: Qualifiers: Sleep apnea type: unspecified type Qualified Code(s): G47.30 - Sleep apnea, unspecified Code(s): G47.30 - Sleep apnea, unspecified Status: Acute Assessment and Plan: * continue home CPAP (4) Diarrhea: Code(s): R19.7 - Diarrhea, unspecified Status: Acute Assessment and Plan: * C-diff and stool cultures * No BM since admission * Monitor electrolytes replenish as need Plan History of congestive heart failure: Patient denies this. Will get echocardiogram which was ordered recently. Pancreatic cyst Chronic back pain with implanted spine stimulator in place Splenomegaly with splenic lesions likely granulomatous disease Code status: Full code per patient DVT prophylaxis: SCD's PT/OT notes: PT/OT pending Disposition: Continues to have pain vitals stable. Subjective Date/time seen: 07/23/24 14:30 Interval history: She feels much better today. Still has some discomfort. Ostomy output has has been more clear. No nausea vomiting. Review of Systems Review of Systems: All systems reviewed & are unremarkable except as noted in HPI and below Exam Narrative: APPEARANCE: Well appearing, no distress, well-nourished. HEAD: normocephalic, atraumatic. EYES: PERRLA/EOMI, conjunctivae clear. NOSE: Normal no drainage NECK: Supple. No adenopathy, no masses. RESPIRATORY: Airway patent, respirations nonlabored. Clear to auscultation bilaterally, no rales, rhonchi, wheezing. CARDIOVASCULAR: Regular rate and rhythm without murmurs rubs or gallops. ABDOMINAL: Left lateral quadrant mild abdominal tenderness, ileostomy bag in situ MUSCULOSKELETAL: Moves all extremities. Strength/ROM intact, No edema, No calf tenderness. NEURO: Alert. Cranial nerves II through XII intact. Grossly intact SKIN: Well-appearing external appearance of the ostomy Objective Data Vital Signs Vital Signs: Vital Signs - 24 hr 07/22/24 20:00 07/22/24 20:33 07/23/24 06:00 Temperature 97.4 F L 97.9 F Pulse Rate 101 H 66 Respiratory Rate 18 16 Blood Pressure 123/66 142/89 H Pulse Oximetry 96 95 Oxygen Delivery Room Air 07/23/24 10:30 Temperature Pulse Rate 66 Respiratory Rate Blood Pressure Pulse Oximetry Oxygen Delivery Intake/Output Intake/Output: Intake & Output 07/20/24 07/21/24 07/22/24 07/23/24 23:59 23:59 23:59 23:59 Intake Total 1180 2440 2398 790 Output Total 4800 3100 1700 Balance 1180 -2360 -702 -910 Meds/Results Medications: Active Medications Generic Name Dose Route Start Last Admin Trade Name Eliseoq PRN Reason Stop Dose Admin Acetaminophen 650 mg 07/20/24 16:11 Acetaminophen 325 Mg Tablet PO Q6H PRN Mild Pain (1-3) or Fever Hydrocodone Bitart/Acetaminophen 1 tab 07/23/24 11:05 Hydrocodone/Acetaminophen (*Crx) 7.5-325 Mg Tablet PO Q4H PRN Pain Rated 7-10 Alprazolam 0.25 mg 07/20/24 21:44 07/22/24 20:55 Alprazolam (*Crx) 0.25 Mg Tablet PO 0.25 mg TID PRN Administration anxiety Aspirin 81 mg 07/21/24 09:00 07/23/24 10:29 Aspirin 81 Mg Enteric Tablet PO 81 mg DAILY ANA Administration Atorvastatin Calcium 10 mg 07/21/24 09:00 07/23/24 10:30 Atorvastatin 10 Mg Tablet PO 10 mg DAILY [facility] Administration Baclofen 20 mg 07/20/24 21:44 07/22/24 21:04 Baclofen 10 Mg Tablet PO 20 mg TID PRN Administration muscle spasm Diclofenac Sodium 1 applic 07/21/24 09:00 07/23/24 10:36 Diclofenac Sodium 1% 100 Gm Gel (*Bkc) TOPICAL 1 applic QID [facility] Administration Escitalopram Oxalate 20 mg 07/21/24 09:00 07/23/24 10:30 Escitalopram Oxalate 10 Mg Tablet PO 20 mg DAILY [facility] Administration Furosemide 20 mg 07/21/24 09:00 07/23/24 10:30 Furosemide 20 Mg Tablet PO 20 mg QAM [facility] Administration Gabapentin 900 mg 07/21/24 09:00 07/23/24 10:29 Gabapentin 300 Mg Capsule PO 900 mg TID [facility] Administration Hydromorphone HCl 0.5 mg 07/22/24 22:09 07/23/24 10:40 Hydromorphone Hcl Inj (*Crx) 1 Mg/Ml Syr IV PUSH 0.5 mg Q3H PRN Administration Pain Rated 7-10 Levofloxacin 750 mg 07/23/24 13:10 Levofloxacin 750 Mg Tablet PO 07/29/24 14:01 DAILY@1400 [facility] Losartan Potassium 100 mg 07/21/24 09:00 07/23/24 10:30 Losartan Potassium 100 Mg Tablet PO 100 mg DAILY [facility] Administration Metoprolol Succinate 12.5 mg 07/21/24 09:00 07/23/24 10:30 Metoprolol Succinate Ext Rel 12.5 Mg Tabcr PO 12.5 mg DAILY [facility] Administration Olanzapine 5 mg 07/21/24 09:00 07/23/24 10:36 Olanzapine 5 Mg Tablet PO 5 mg DAILY [facility] Administration Ondansetron HCl 4 mg 07/20/24 14:12 07/21/24 04:15 Ondansetron Inj 4 Mg/2 Ml Vial IV PUSH 4 mg Q4H PRN Administration Nausea Ondansetron HCl 4 mg 07/20/24 21:44 Ondansetron Hcl Odt 4 Mg Tablet PO Q8H PRN nausea and vomiting Perflutren Lipid Microsphere 0 ml 07/23/24 13:09 Perflutren Lipid Microspheres 1.5 Ml Vial Diluted To 10 Ml Total Volume IV PUSH 07/26/24 13:09 ONCE PRN adequate visualization Protocol Polyethylene Glycol 17 gm 07/20/24 21:44 Polyethylene Glycol 3350 17 Gm Powd.Pack PO DAILY PRN constipation Ropinirole HCl 0.5 mg 07/20/24 21:50 07/23/24 10:36 Ropinirole Hcl 0.5 Mg Tablet PO 0.5 mg Q12HR ANA Administration Senna/Docusate Sodium 1 tab 07/20/24 21:44 07/23/24 10:37 Senna/Docusate Sodium Tablet PO 1 tab Q12H PRN Administration constipation Zolpidem Tartrate 5 mg 07/20/24 21:50 07/22/24 20:55 Zolpidem Tartrate (*Crx) 5 Mg Tablet PO 5 mg QHS ANA Administration Radiology Results: ITS Impressions Abdomen/Pelvis CT 07/20/24 13:16 IMPRESSION: 1. Left-sided ileal conduit with fat stranding and trace fluid in the stoma, consistent with inflammation versus scarring. 2. Cystic lesions of the pancreas measuring up to 12 mm, stable from 03/20/2023. The differential diagnosis includes pseudocyst, intraductal papillary mucinous neoplasm (IPMN), mucinous cystic neoplasm (MCN), serous cystadenoma, and neuroendocrine tumor. Consider abdomen MRI without and with contrast in one year. Labs Labs: Laboratory Results - last 24 hr 07/23/24 05:53 WBC 7.3 RBC 4.48 Hgb 12.7 Hct 38.5 MCV 85.9 MCH 28.3 MCHC 33.0 RDW 13.9 Plt Count 192 MPV 9.9 Immature Gran % (Auto) 0.3 Neut % (Auto) 54.6 Lymph % (Auto) 33.9 [place] % (Auto) 7.9 Eos % (Auto) 2.6 Baso % (Auto) 0.7 Lymph # (Auto) 2.48 [place] # (Auto) 0.6 Eos # (Auto) 0.2 Baso # (Auto) 0.1 Abs Immat Gran (auto) 0.02 Absolute Neuts (auto) 4.0 Absolute Nucleated RBC 0.000 Nucleated RBC % 0.0 Sodium 135 L Potassium 4.4 Chloride 98 Carbon Dioxide 28 Anion Gap 9 BUN 17 Creatinine 0.52 L Estim Creat Clear Calc 127 Estimated GFR > 60 Glucose 102 Calcium 8.3 L Magnesium 2.2 Total Bilirubin 0.7 AST 56 H ALT 29 Alkaline Phosphatase 81 Total Protein 6.0 L Albumin 3.5
[2024-07-23] MEDS: HYDROcodone/acetaminophen (*CRX) 7.5-325 MG TABLET 1 TAB PO ×2 (14:58→21:18)
[2024-07-23] MEDS: levoFLOXacin 750 MG TABLET PO (14:59)
[2024-07-23] MEDS: BACLOFEN 10 MG TABLET 20 MG PO (16:43)
[2024-07-23 20:20] LABS: Toxigenic C. Diff NEGATIVE (NEGATIVE)
[2024-07-23 21:08] VITALS: BP 113/47; PULSE 67; RESP 12; TEMP 36.4; O2SAT 95
[2024-07-23] MEDS: ZOLPIDEM TARTRATE (*CRX) 5 MG TABLET PO (21:12)
[2024-07-23] MEDS: ALPRAZolam (*CRX) 0.25 MG TABLET PO (21:18)
--- NOTE | 2024-07-24 | ECHO_ITS ---
Patient Info Name: Angelina Mcnulty Age: 58 years : 1965 Gender: Female Ht: 68 in Wt: 230 lbs BSA: 2.28 m2 HR: 56 bpm BP: 102 / 56 mmHg Technical Quality: Fair Exam Date: 07/24/2024 12:41 PM Exam Location: Echo Lab Exam Room: 332 Patient Status: Inpatient Admit Date: 07/22/2024 Staff Ordering Physician: Kwaku Josue MD C Web Developer: Chen Arriaga RDCS Attending Provider: Allison Sandoval APRN Exam Type: CA echo doppler color flow Study Info Indications - CHF Complete two-dimensional, color flow and Doppler transthoracic echocardiogram is performed. Summary 1. Complete two-dimensional, color flow and Doppler transthoracic echocardiogram is performed. 2. Left ventricular systolic function is normal, estimated at 60-65%. 3. There is mildly increased left ventricular wall thickness. 4. The left ventricular diastolic function is normal. 5. There is mild pulmonic regurgitation. Left Ventricle Left ventricular chamber dimension is normal. Left ventricular systolic function is normal, estimated at 60-65%. There is mildly increased left ventricular wall thickness. Left ventricular septal wall motion is normal. The left ventricular diastolic function is normal. Right Ventricle Right ventricular chamber dimension is normal. Right ventricular systolic function is normal. Left Atria Left atrial chamber dimension is normal. Right Atria Right atrial chamber dimension is normal. Atrial Septum Intact interatrial septum visualized by color flow imaging. Aortic Valve The aortic valve is trileaflet. There is mild aortic valve sclerosis. There is no aortic valve stenosis. There is no aortic valve regurgitation. Pulmonic Valve The pulmonic valve is normal. There is no pulmonic valve stenosis. There is mild pulmonic regurgitation. Mitral Valve The mitral valve has normal leaflets. There is no mitral valve stenosis. There is no mitral valve regurgitation. Tricuspid Valve The tricuspid valve leaflets are normal. There is no significant tricuspid valve stenosis. There is no tricuspid valve regurgitation. Pericardium/Pleural The pericardium appears normal. There is no pericardial effusion. Inferior Vena Cava Normal inferior vena cava with >50% collapse upon inspiration consistent with normal right atrial pressure, Empty. Aorta The aortic root size at the sinus of Valsalva is normal. The prox ascending aorta size is normal. Left Ventricular Outflow Tract Name Value Normal LVOT 2D LVOT Diameter 2.2 cm LVOT Doppler LVOT Peak Gradient 6 mmHg LVOT Mean Gradient 3 mmHg LVOT VTI 22 cm LVOT VTI/AV VTI Ratio 0.7 LVOT Stroke Volume 81 ml LVOT CO 4.5 l/min LVOT CI 2.0 l/min/m2 Pulmonic Valve Name Value Normal PV Doppler PV Peak Gradient 4 mmHg PV Regurgitation Doppler ME Peak End Diastolic Velocity 109 cm/s Mitral Valve Name Value Normal MV Doppler MV Peak Gradient 2 mmHg MV Mean Gradient 1 mmHg MV Decel Cand[place] 388 cm/s2 MV PHT 58 ms MV Area (PHT) 3.8 cm2 4.0-5.0 MV Area (Cont Eq VTI) 3.4 cm2 MV Diastolic Function MV E Peak Velocity 78 cm/s MV A Peak Velocity 53 cm/s MV E/A 1.5 MV Decel Time 200 ms MV Annular TDI MV E/e' (Septal) 8.3 <=8.0 MV E/e' (Lateral) 5.7 <=8.0 MV E/e' (Average) 7.0 Aortic Valve Name Value Normal AV Doppler AV Peak Velocity 147 cm/s AV Peak Gradient 7 mmHg AV Mean Gradient 4 mmHg AV VTI 32 cm AV Area (Cont Eq VTI) 2.6 cm2 >=3.0 AV Area (Cont Eq Joselito) 3.0 cm2 AV Regurgitation 2D LVOT Area 3.7 cm2 Ventricles Name Value Normal LV Dimensions 2D/MM IVS Diastolic Thickness (2D) 1.1 cm 0.6-1.0 LVID Diastole (2D) 5.0 cm 3.8-5.2 LVIW Diastolic Thickness (2D) 1.0 cm 0.6-0.9 LVID Systole (2D) 3.4 cm 2.2-3.5 LVOT Diameter 2.2 cm LV Mass (2D Cubed) 189.49 g 67.00-162.00 LV Mass Index (2D Cubed) 83 g/m2 43-95 Relative Wall Thickness (2D) 0.39 LV Fractional Shortening/Ejection Fraction 2D/MM LV Fractional Shortening (2D) 34 % 27-45 LV EF (2D Teichgregoryz) 63 % 54-74 LV Diastolic Volume (4C MOD) 136 ml LV EF (4C MOD) 62 % LV Diastolic Length (4C) 8.3 cm LV Systolic Length (4C) 6.8 cm LV Stroke Volume (4C MOD) 85 ml Atria Name Value Normal LA Dimensions LA Volume (4C A-L) 69 ml RA Dimensions RA Area (4C) 16.0 cm2 <=18.0 Report Signatures
[2024-07-24] MEDS: HYDROmorphone HCL INJ (*CRX) 1 MG/ML SYR 0.5 MG IV PUSH (02:09)
[2024-07-24 05:57] VITALS: BP 102/56; PULSE 56; RESP 13; TEMP 36.6; O2SAT 97
[2024-07-24 06:05] LABS: Basophils Absolute Auto 0.1 K/mm3 (0.0-0.1); Basophils Percent Auto 0.7 % (0.2-1.2); Eosinophils Absolute Auto 0.2 K/mm3 (0-0.3); Eosinophils Percent Auto 2.6 % (0-4.4); Hematocrit 35.3 % (37.0-47.0); Hemoglobin 11.8 g/dL (12.0-15.0); Immature Granulocyte Absolute 0.04 K/mm3 (0.00-0.031); Immature Granulocyte Percent A 0.5 % (0-0.5); Lymphocytes Absolute Auto 2.07 K/mm3 (0.9-3.2); Lymphocytes Percent Auto 28.1 % (18.3-44.2); Mean Corpuscular HGB Conc 33.4 g/dl (32-36); Mean Corpuscular Hemoglobin 28.4 pg (26-34); Mean Corpuscular Volume 84.9 fl (80-100); Monocytes Absolute Auto 0.7 K/mm3 (0.1-0.6); Neutrophils Absolute Auto 4.4 K/mm3 (1.3-6.7); Neutrophils Percent Auto 59.1 % (45.5-73.1); Platelet Count Result 194 k/mm3 (150-375); Red Blood Count 4.16 M/mm3 (4.2-5.4); Red Cell Distribution Width 13.9 % (11.5-14.5); White Blood Count 7.4 K/mm3 (4.5-10.0)
[2024-07-24 06:27] LABS: Alanine Aminotransferase 33 U/L (6-35); Albumin Level 3.1 g/dL (3.5-5.1); Alkaline Phosphatase 76 U/L (38-126); Anion Gap 8 mmol/L (4-12); Aspartate Amino Transferase 70 U/L (14-36); Bilirubin,Total 0.6 mg/dL (0.2-1.3); Blood Urea Nitrogen 15 mg/dL (7-17); Calcium 7.6 mg/dL (8.4-10.2); Carbon Dioxide 27 mmol/L (22-30); Chloride 96 mmol/L (98-107); Estimated CRCL calculation 131 ml/min; Estimated Glomerular Filt Rate > 60; Glucose 115 mg/dL (65-110); Magnesium 2.1 mg/dL (1.6-2.3); Potassium 4.3 mmol/L (3.4-5.0); Sodium 131 mmol/L (137-145)
[2024-07-24] MEDS: HYDROcodone/acetaminophen (*CRX) 7.5-325 MG TABLET 1 TAB PO ×3 (08:11→21:55)
[2024-07-24] MEDS: rOPINIRole HCL 0.5 MG TABLET PO ×2 (08:11→21:55)
[2024-07-24] MEDS: LOSARTAN POTASSIUM 100 MG TABLET PO (08:11)
[2024-07-24] MEDS: GABAPENTIN 300 MG CAPSULE 900 MG PO ×3 (08:11→16:09)
[2024-07-24] MEDS: METOPROLOL SUCCINATE EXT REL 12.5 MG TABCR PO (08:11)
[2024-07-24] MEDS: ASPIRIN 81 MG ENTERIC TABLET PO (08:11)
[2024-07-24] MEDS: OLANZapine 5 MG TABLET PO (08:12)
[2024-07-24] MEDS: ATORVASTATIN 10 MG TABLET PO (08:12)
[2024-07-24] MEDS: FUROSEMIDE 20 MG TABLET PO (08:12)
[2024-07-24] MEDS: ESCITALOPRAM OXALATE 10 MG TABLET 20 MG PO (08:12)
[2024-07-24] MEDS: DICLOFENAC SODIUM 1% 100 GM GEL (*BKC) 1 APPLIC TOPICAL ×4 (08:14→21:55)
--- NOTE | 2024-07-24 10:28 | P.PNIM_ITS ---
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 Patient reported symptoms started about 3 weeks ago but significantly worsened over the past 4 days prior to admission urine output has become cloudy and had increase in segment when she cleaned her bag. Patient with HX of urostomy * CT abdomen/pelvis: 1. Left-sided ileal conduit with fat stranding and trace fluid in the stoma, consistent with inflammation versus scarring. 2. Cystic lesions of the pancreas measuring up to 12 mm, stable from 03/20/2023. The differential diagnosis includes pseudocyst, intraductal papillary mucinous neoplasm (IPMN), mucinous cystic neoplasm (MCN), serous cystadenoma, and neuroendocrine tumor. Consider abdomen MRI without and with contrast in one year. * Wound culture of stoma * UA: cloudy, 1+ blood, positive nitrates, 2+ leuks, 3-5 RBC, 51-100 WBC, 4+ bacteria, and few epithelial cells * UC with Gram-negative bacilli yet to be identified * previous micro reviewed, Enterobacter with multiple resistances on 03/20/2023. Was susceptible to meropenem. * started on meropenem on 07/20 pending cultures * IV fluids: 100 mL/hour x1 L. * analgesics and antipyretics p.r.n. * Blood Cultures NGTD Urine culture grew Citrobacter freundii. With switch antibiotic to levofloxacin complete 7 days course Pain has worsened today. Will reassess with CT repeat (2) Hypertension: Qualifiers: Hypertension type: primary hypertension Qualified Code(s): I10 - Essential (primary) hypertension Code(s): I10 - Essential (primary) hypertension Status: Chronic Assessment and Plan: * chronic, currently 123/60 * continue home medications: Losartan, metoprolol * BP monitoring per unit protocol (3) Sleep apnea: Qualifiers: Sleep apnea type: unspecified type Qualified Code(s): G47.30 - Sleep apnea, unspecified Code(s): G47.30 - Sleep apnea, unspecified Status: Acute Assessment and Plan: * continue home CPAP (4) Diarrhea: Code(s): R19.7 - Diarrhea, unspecified Status: Acute Assessment and Plan: * C-diff and stool cultures * No BM since admission * Monitor electrolytes replenish as need Plan History of congestive heart failure: Patient denies this. Echo to assess ordered Pancreatic cyst Chronic back pain with implanted spine stimulator in place Splenomegaly with splenic lesions likely granulomatous disease Code status: Full code per patient DVT prophylaxis: SCD's PT/OT notes: PT/OT pending Disposition: Continues to have pain vitals stable. Subjective Date/time seen: 07/24/24 10:28 Interval history: Patient reports more pain in the left upper quadrant to left lumbar area. Denies any back pain. No nausea vomiting. Review of Systems Review of Systems: All systems reviewed & are unremarkable except as noted in HPI and below Exam Narrative: APPEARANCE: Well appearing, no distress, well-nourished. HEAD: normocephalic, atraumatic. EYES: PERRLA/EOMI, conjunctivae clear. NOSE: Normal no drainage NECK: Supple. No adenopathy, no masses. RESPIRATORY: Airway patent, respirations nonlabored. Clear to auscultation bilaterally, no rales, rhonchi, wheezing. CARDIOVASCULAR: Regular rate and rhythm without murmurs rubs or gallops. ABDOMINAL: Left lateral quadrant mild abdominal tenderness, ileostomy bag in situ MUSCULOSKELETAL: Moves all extremities. Strength/ROM intact, No edema, No calf tenderness. NEURO: Alert. Cranial nerves II through XII intact. Grossly intact SKIN: Well-appearing external appearance of the ostomy Objective Data Vital Signs Vital Signs: Vital Signs - 24 hr 07/23/24 10:30 07/23/24 14:00 07/23/24 21:08 Temperature 96.6 F L 97.6 F Pulse Rate 66 78 67 Respiratory Rate 18 12 Blood Pressure 116/52 L 113/47 L Pulse Oximetry 98 95 Oxygen Delivery 07/24/24 05:57 07/24/24 08:00 Temperature 97.9 F Pulse Rate 56 L Respiratory Rate 13 Blood Pressure 102/56 L Pulse Oximetry 97 Oxygen Delivery Room Air Intake/Output Intake/Output: Intake & Output 07/21/24 07/22/24 07/23/24 07/24/24 23:59 23:59 23:59 23:59 Intake Total 2440 2398 1270 1240 Output Total 4800 3100 3850 1400 Balance -1680 -702 -2580 -160 Meds/Results Medications: Active Medications Generic Name Dose Route Start Last Admin Trade Name Freq PRN Reason Stop Dose Admin Acetaminophen 650 mg 07/20/24 16:11 Acetaminophen 325 Mg Tablet PO Q6H PRN Mild Pain (1-3) or Fever Hydrocodone Bitart/Acetaminophen 1 tab 07/23/24 11:05 07/24/24 08:11 Hydrocodone/Acetaminophen (*Crx) 7.5-325 Mg Tablet PO 1 tab Q4H PRN Administration Pain Rated 7-10 Alprazolam 0.25 mg 07/20/24 21:44 07/23/24 21:18 Alprazolam (*Crx) 0.25 Mg Tablet PO 0.25 mg TID PRN Administration anxiety Aspirin 81 mg 07/21/24 09:00 07/24/24 08:11 Aspirin 81 Mg Enteric Tablet PO 81 mg DAILY ANA Administration Atorvastatin Calcium 10 mg 07/21/24 09:00 07/24/24 08:12 Atorvastatin 10 Mg Tablet PO 10 mg DAILY ANA Administration Baclofen 20 mg 07/20/24 21:44 07/23/24 16:43 Baclofen 10 Mg Tablet PO 20 mg TID PRN Administration muscle spasm Diclofenac Sodium 1 applic 07/21/24 09:00 07/24/24 08:14 Diclofenac Sodium 1% 100 Gm Gel (*Bkc) TOPICAL 1 applic QID ANA Administration Escitalopram Oxalate 20 mg 07/21/24 09:00 07/24/24 08:12 Escitalopram Oxalate 10 Mg Tablet PO 20 mg DAILY ANA Administration Furosemide 20 mg 07/21/24 09:00 07/24/24 08:12 Furosemide 20 Mg Tablet PO 20 mg QAM ANA Administration Gabapentin 900 mg 07/21/24 09:00 07/24/24 08:11 Gabapentin 300 Mg Capsule PO 900 mg TID ANA Administration Hydromorphone HCl 0.5 mg 07/22/24 22:09 07/24/24 02:09 Hydromorphone Hcl Inj (*Crx) 1 Mg/Ml Syr IV PUSH 0.5 mg Q3H PRN Administration Pain Rated 7-10 Levofloxacin 750 mg 07/23/24 13:10 07/23/24 14:59 Levofloxacin 750 Mg Tablet PO 07/29/24 14:01 750 mg DAILY@1400 ANA Administration Losartan Potassium 100 mg 07/21/24 09:00 07/24/24 08:11 Losartan Potassium 100 Mg Tablet PO 100 mg DAILY ANA Administration Metoprolol Succinate 12.5 mg 07/21/24 09:00 07/24/24 08:11 Metoprolol Succinate Ext Rel 12.5 Mg Tabcr PO 12.5 mg DAILY ANA Administration Olanzapine 5 mg 07/21/24 09:00 07/24/24 08:12 Olanzapine 5 Mg Tablet PO 5 mg DAILY ANA Administration Ondansetron HCl 4 mg 07/20/24 14:12 07/21/24 04:15 Ondansetron Inj 4 Mg/2 Ml Vial IV PUSH 4 mg Q4H PRN Administration Nausea Ondansetron HCl 4 mg 07/20/24 21:44 Ondansetron Hcl Odt 4 Mg Tablet PO Q8H PRN nausea and vomiting Perflutren Lipid Microsphere 0 ml 07/23/24 13:09 Perflutren Lipid Microspheres 1.5 Ml Vial Diluted To 10 Ml Total Volume IV PUSH 07/26/24 13:09 ONCE PRN adequate visualization Protocol Polyethylene Glycol 17 gm 07/20/24 21:44 Polyethylene Glycol 3350 17 Gm Powd.Pack PO DAILY PRN constipation Ropinirole HCl 0.5 mg 07/20/24 21:50 07/24/24 08:11 Ropinirole Hcl 0.5 Mg Tablet PO 0.5 mg Q12HR ANA Administration Senna/Docusate Sodium 1 tab 07/20/24 21:44 07/23/24 10:37 Senna/Docusate Sodium Tablet PO 1 tab Q12H PRN Administration constipation Zolpidem Tartrate 5 mg 07/20/24 21:50 07/23/24 21:12 Zolpidem Tartrate (*Crx) 5 Mg Tablet PO 5 mg QHS ANA Administration Radiology Results: ITS Impressions Abdomen/Pelvis CT 07/20/24 13:16 IMPRESSION: 1. Left-sided ileal conduit with fat stranding and trace fluid in the stoma, consistent with inflammation versus scarring. 2. Cystic lesions of the pancreas measuring up to 12 mm, stable from 03/20/2023. The differential diagnosis includes pseudocyst, intraductal papillary mucinous neoplasm (IPMN), mucinous cystic neoplasm (MCN), serous cystadenoma, and neuroendocrine tumor. Consider abdomen MRI without and with contrast in one year. Labs Labs: Laboratory Results - last 24 hr 07/23/24 07/24/24 19:04 05:47 WBC 7.4 RBC 4.16 L Hgb 11.8 L Hct 35.3 L MCV 84.9 MCH 28.4 MCHC 33.4 RDW 13.9 Plt Count 194 MPV 10.0 Immature Gran % (Auto) 0.5 Neut % (Auto) 59.1 Lymph % (Auto) 28.1 [place] % (Auto) 9.0 H Eos % (Auto) 2.6 Baso % (Auto) 0.7 Lymph # (Auto) 2.07 [place] # (Auto) 0.7 H Eos # (Auto) 0.2 Baso # (Auto) 0.1 Abs Immat Gran (auto) 0.04 H Absolute Neuts (auto) 4.4 Absolute Nucleated RBC 0.000 Nucleated RBC % 0.0 Sodium 131 L Potassium 4.3 Chloride 96 L Carbon Dioxide 27 Anion Gap 8 BUN 15 Creatinine 0.50 L Estim Creat Clear Calc 131 Estimated GFR > 60 Glucose 115 H Calcium 7.6 L Magnesium 2.1 Total Bilirubin 0.6 AST 70 H ALT 33 Alkaline Phosphatase 76 Total Protein 6.0 L Albumin 3.1 L C. difficile (PCR) Negative
--- NOTE | 2024-07-24 12:00 | PC.NURSE ---
To CT per hospital bed.
--- NOTE | 2024-07-24 12:25 | PC.NURSE ---
Returned to room per hospital bed from CT.
[2024-07-24] MEDS: levoFLOXacin 750 MG TABLET PO (13:36)
[2024-07-24 14:00] VITALS: BP 93/43; PULSE 64; RESP 18; O2SAT 94
[2024-07-24] MEDS: ALPRAZolam (*CRX) 0.25 MG TABLET PO (17:09)
[2024-07-24] MEDS: BACLOFEN 10 MG TABLET 20 MG PO (21:55)
[2024-07-24] MEDS: ZOLPIDEM TARTRATE (*CRX) 5 MG TABLET PO (21:55)
[2024-07-24 22:00] VITALS: BP 110/67; PULSE 66; RESP 14; TEMP 36.5; O2SAT 95
[2024-07-25] MEDS: HYDROmorphone HCL INJ (*CRX) 1 MG/ML SYR 0.5 MG IV PUSH ×2 (00:10→21:19)
[2024-07-25] MEDS: ALPRAZolam (*CRX) 0.25 MG TABLET PO ×3 (00:10→12:40)
[2024-07-25] MEDS: HYDROcodone/acetaminophen (*CRX) 7.5-325 MG TABLET 1 TAB PO ×5 (05:10→23:14)
[2024-07-25 06:00] VITALS: BP 97/56; PULSE 64; RESP 12; TEMP 36.2; O2SAT 97
[2024-07-25 07:55] LABS: Basophils Absolute Auto 0.1 K/mm3 (0.0-0.1); Eosinophils Absolute Auto 0.1 K/mm3 (0-0.3); Eosinophils Percent Auto 2.8 % (0-4.4); Hematocrit 34.9 % (37.0-47.0); Hemoglobin 11.4 g/dL (12.0-15.0); Immature Granulocyte Absolute 0.03 K/mm3 (0.00-0.031); Immature Granulocyte Percent A 0.6 % (0-0.5); Lymphocytes Absolute Auto 1.56 K/mm3 (0.9-3.2); Lymphocytes Percent Auto 31.5 % (18.3-44.2); Mean Corpuscular HGB Conc 32.7 g/dl (32-36); Mean Corpuscular Volume 85.7 fl (80-100); Mean Platelet Volume 10.2 fl (7.4-10.4); Monocytes Absolute Auto 0.5 K/mm3 (0.1-0.6); Monocytes Percent Auto 10.7 % (2.6-8.5); Neutrophils Absolute Auto 2.7 K/mm3 (1.3-6.7); Neutrophils Percent Auto 53.4 % (45.5-73.1); Platelet Count Result 162 k/mm3 (150-375); Red Blood Count 4.07 M/mm3 (4.2-5.4)
[2024-07-25 08:13] LABS: Alanine Aminotransferase 32 U/L (6-35); Alkaline Phosphatase 75 U/L (38-126); Anion Gap 4 mmol/L (4-12); Aspartate Amino Transferase 53 U/L (14-36); Bilirubin,Total 0.4 mg/dL (0.2-1.3); Blood Urea Nitrogen 13 mg/dL (7-17); Calcium 7.9 mg/dL (8.4-10.2); Carbon Dioxide 28 mmol/L (22-30); Chloride 101 mmol/L (98-107); Estimated CRCL calculation 144 ml/min; Estimated Glomerular Filt Rate > 60; Glucose 100 mg/dL (65-110); Magnesium 2.2 mg/dL (1.6-2.3); Potassium 3.9 mmol/L (3.4-5.0); Sodium 133 mmol/L (137-145)
[2024-07-25] MEDS: ATORVASTATIN 10 MG TABLET PO (08:51)
[2024-07-25] MEDS: DICLOFENAC SODIUM 1% 100 GM GEL (*BKC) 1 APPLIC TOPICAL ×4 (08:51→20:22)
[2024-07-25] MEDS: ESCITALOPRAM OXALATE 10 MG TABLET 20 MG PO (08:51)
[2024-07-25] MEDS: FUROSEMIDE 20 MG TABLET PO (08:51)
[2024-07-25] MEDS: METOPROLOL SUCCINATE EXT REL 12.5 MG TABCR PO (08:52)
[2024-07-25] MEDS: LOSARTAN POTASSIUM 100 MG TABLET PO (08:52)
[2024-07-25] MEDS: ASPIRIN 81 MG ENTERIC TABLET PO (08:52)
[2024-07-25] MEDS: rOPINIRole HCL 0.5 MG TABLET PO ×2 (08:52→20:22)
[2024-07-25] MEDS: OLANZapine 5 MG TABLET PO (08:52)
[2024-07-25] MEDS: GABAPENTIN 300 MG CAPSULE 900 MG PO ×3 (08:52→20:21)
--- NOTE | 2024-07-25 13:52 | P.PNIM_ITS ---
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 Patient reported symptoms started about 3 weeks ago but significantly worsened over the past 4 days prior to admission urine output has become cloudy and had increase in segment when she cleaned her bag. Patient with HX of urostomy * CT abdomen/pelvis: 1. Left-sided ileal conduit with fat stranding and trace fluid in the stoma, consistent with inflammation versus scarring. 2. Cystic lesions of the pancreas measuring up to 12 mm, stable from 03/20/2023. The differential diagnosis includes pseudocyst, intraductal papillary mucinous neoplasm (IPMN), mucinous cystic neoplasm (MCN), serous cystadenoma, and neuroendocrine tumor. Consider abdomen MRI without and with contrast in one year. * Wound culture of stoma * UA: cloudy, 1+ blood, positive nitrates, 2+ leuks, 3-5 RBC, 51-100 WBC, 4+ bacteria, and few epithelial cells * UC with Gram-negative bacilli yet to be identified * previous micro reviewed, Enterobacter with multiple resistances on 03/20/2023. Was susceptible to meropenem. * started on meropenem on 07/20 pending cultures * IV fluids: 100 mL/hour x1 L. * analgesics and antipyretics p.r.n. * Blood Cultures NGTD Urine culture grew Citrobacter freundii. With switch antibiotic to levofloxacin complete 7 days course Pain has worsened Enhanced CT was repeated which showed no acute abdominal pelvic findings. Culture from the stoma with Enterococcus faecium Continue current antibiotics which will cover this as well. Will give anti spasmodic to help with the pain. (2) Hypertension: Qualifiers: Hypertension type: primary hypertension Qualified Code(s): I10 - Essential (primary) hypertension Code(s): I10 - Essential (primary) hypertension Status: Chronic Assessment and Plan: * chronic, currently 123/60 * continue home medications: Losartan, metoprolol * BP monitoring per unit protocol (3) Sleep apnea: Qualifiers: Sleep apnea type: unspecified type Qualified Code(s): G47.30 - Sleep apnea, unspecified Code(s): G47.30 - Sleep apnea, unspecified Status: Acute Assessment and Plan: * continue home CPAP (4) Diarrhea: Code(s): R19.7 - Diarrhea, unspecified Status: Acute Assessment and Plan: * C-diff and stool cultures * No BM since admission * Monitor electrolytes replenish as need Plan History of congestive heart failure: Patient denies this. Echo 07/24/2024 with EF 60-65% mildly increased left ventricular wall thickness diastolic function is normal mild pulmonic regurgitation. Pancreatic cyst Chronic back pain with implanted spine stimulator in place Splenomegaly with splenic lesions likely granulomatous disease Code status: Full code per patient DVT prophylaxis: SCD's PT/OT notes: PT/OT pending Disposition: Continues to have pain vitals stable. Subjective Date/time seen: 07/25/24 13:52 Interval history: patient continues to have intermittent pain on her left side of the abdomen. Overnight was worse. No nausea vomiting. Review of Systems Review of Systems: All systems reviewed & are unremarkable except as noted in HPI and below Exam Narrative: APPEARANCE: Well appearing, no distress, well-nourished. HEAD: normocephalic, atraumatic. EYES: PERRLA/EOMI, conjunctivae clear. NOSE: Normal no drainage NECK: Supple. No adenopathy, no masses. RESPIRATORY: Airway patent, respirations nonlabored. Clear to auscultation bilaterally, no rales, rhonchi, wheezing. CARDIOVASCULAR: Regular rate and rhythm without murmurs rubs or gallops. ABDOMINAL: Left lateral quadrant mild abdominal tenderness, ileostomy bag in situ MUSCULOSKELETAL: Moves all extremities. Strength/ROM intact, No edema, No calf tenderness. NEURO: Alert. Cranial nerves II through XII intact. Grossly intact SKIN: Well-appearing external appearance of the ostomy Objective Data Vital Signs Vital Signs: Vital Signs - 24 hr 07/24/24 14:00 07/24/24 20:00 07/24/24 22:00 Temperature 97.7 F Pulse Rate 64 66 Respiratory Rate 18 14 Blood Pressure 93/43 L 110/67 Pulse Oximetry 94 95 Oxygen Delivery Room Air 07/25/24 06:00 07/25/24 08:00 Temperature 97.1 F L Pulse Rate 64 Respiratory Rate 12 Blood Pressure 97/56 L Pulse Oximetry 97 Oxygen Delivery Room Air Intake/Output Intake/Output: Intake & Output 07/22/24 07/23/24 07/24/24 07/25/24 23:59 23:59 23:59 23:59 Intake Total 2398 1270 1720 1580 Output Total 3100 3850 4350 1200 Balance -599 -0956 -8090 380 Meds/Results Medications: Active Medications Generic Name Dose Route Start Last Admin Trade Name Freq PRN Reason Stop Dose Admin Acetaminophen 650 mg 07/20/24 16:11 Acetaminophen 325 Mg Tablet PO Q6H PRN Mild Pain (1-3) or Fever Hydrocodone Bitart/Acetaminophen 1 tab 07/23/24 11:05 07/25/24 12:39 Hydrocodone/Acetaminophen (*Crx) 7.5-325 Mg Tablet PO 1 tab Q4H PRN Administration Pain Rated 7-10 Alprazolam 0.25 mg 07/20/24 21:44 07/25/24 12:40 Alprazolam (*Crx) 0.25 Mg Tablet PO 0.25 mg TID PRN Administration anxiety Aspirin 81 mg 07/21/24 09:00 07/25/24 08:52 Aspirin 81 Mg Enteric Tablet PO 81 mg DAILY ANA Administration Atorvastatin Calcium 10 mg 07/21/24 09:00 07/25/24 08:51 Atorvastatin 10 Mg Tablet PO 10 mg DAILY ANA Administration Baclofen 20 mg 07/20/24 21:44 07/24/24 21:55 Baclofen 10 Mg Tablet PO 20 mg TID PRN Administration muscle spasm Diclofenac Sodium 1 applic 07/21/24 09:00 07/25/24 12:40 Diclofenac Sodium 1% 100 Gm Gel (*Bkc) TOPICAL 1 applic QID ANA Administration Escitalopram Oxalate 20 mg 07/21/24 09:00 07/25/24 08:51 Escitalopram Oxalate 10 Mg Tablet PO 20 mg DAILY ANA Administration Furosemide 20 mg 07/21/24 09:00 07/25/24 08:51 Furosemide 20 Mg Tablet PO 20 mg QAM ANA Administration Gabapentin 900 mg 07/21/24 09:00 07/25/24 12:40 Gabapentin 300 Mg Capsule PO 900 mg TID ANA Administration Hydromorphone HCl 0.5 mg 07/22/24 22:09 07/25/24 00:10 Hydromorphone Hcl Inj (*Crx) 1 Mg/Ml Syr IV PUSH 0.5 mg Q3H PRN Administration Pain Rated 7-10 Levofloxacin 750 mg 07/23/24 13:10 07/24/24 13:36 Levofloxacin 750 Mg Tablet PO 07/29/24 14:01 750 mg DAILY@1400 ANA Administration Losartan Potassium 100 mg 07/21/24 09:00 07/25/24 08:52 Losartan Potassium 100 Mg Tablet PO 100 mg DAILY ANA Administration Metoprolol Succinate 12.5 mg 07/21/24 09:00 07/25/24 08:52 Metoprolol Succinate Ext Rel 12.5 Mg Tabcr PO 12.5 mg DAILY ANA Administration Olanzapine 5 mg 07/21/24 09:00 07/25/24 08:52 Olanzapine 5 Mg Tablet PO 5 mg DAILY ANA Administration Ondansetron HCl 4 mg 07/20/24 14:12 07/21/24 04:15 Ondansetron Inj 4 Mg/2 Ml Vial IV PUSH 4 mg Q4H PRN Administration Nausea Ondansetron HCl 4 mg 07/20/24 21:44 Ondansetron Hcl Odt 4 Mg Tablet PO Q8H PRN nausea and vomiting Perflutren Lipid Microsphere 0 ml 07/23/24 13:09 Perflutren Lipid Microspheres 1.5 Ml Vial Diluted To 10 Ml Total Volume IV PUSH 07/26/24 13:09 ONCE PRN adequate visualization Protocol Polyethylene Glycol 17 gm 07/20/24 21:44 Polyethylene Glycol 3350 17 Gm Powd.Pack PO DAILY PRN constipation Ropinirole HCl 0.5 mg 07/20/24 21:50 07/25/24 08:52 Ropinirole Hcl 0.5 Mg Tablet PO 0.5 mg Q12HR ANA Administration Senna/Docusate Sodium 1 tab 07/20/24 21:44 07/23/24 10:37 Senna/Docusate Sodium Tablet PO 1 tab Q12H PRN Administration constipation Zolpidem Tartrate 5 mg 07/20/24 21:50 07/24/24 21:55 Zolpidem Tartrate (*Crx) 5 Mg Tablet PO 5 mg QHS ANA Administration Radiology Results: ITS Impressions Abdomen/Pelvis CT 07/24/24 12:25 IMPRESSION: 1. No acute intra-abdominal/pelvic process. 2. Status post cystectomy with left sided ileal conduit. 3. Additional postoperative change of prior cholecystectomy, hysterectomy, infrarenal IVC filter placement, combined instrumented lumbar anterior and posterior spinal fusion and lower thoracic spinal stimulator placement. 4. Diverticulosis. 5. No interval change since 03/20/2023 and a couple cystic lesions at the tail the pancreas measuring up to 1.3 cm. Would recommend annual pre and postcontrast MRI or follow-up. Labs Labs: Laboratory Results - last 24 hr 07/25/24 07:43 WBC 5.0 RBC 4.07 L Hgb 11.4 L Hct 34.9 L MCV 85.7 MCH 28.0 MCHC 32.7 RDW 14.0 Plt Count 162 MPV 10.2 Immature Gran % (Auto) 0.6 H Neut % (Auto) 53.4 Lymph % (Auto) 31.5 [place] % (Auto) 10.7 H Eos % (Auto) 2.8 Baso % (Auto) 1.0 Lymph # (Auto) 1.56 [place] # (Auto) 0.5 Eos # (Auto) 0.1 Baso # (Auto) 0.1 Abs Immat Gran (auto) 0.03 Absolute Neuts (auto) 2.7 Absolute Nucleated RBC 0.000 Nucleated RBC % 0.0 Sodium 133 L Potassium 3.9 Chloride 101 Carbon Dioxide 28 Anion Gap 4 BUN 13 Creatinine 0.45 L Estim Creat Clear Calc 144 Estimated GFR > 60 Glucose 100 Calcium 7.9 L Magnesium 2.2 Total Bilirubin 0.4 AST 53 H ALT 32 Alkaline Phosphatase 75 Total Protein 6.0 L Albumin 3.0 L
[2024-07-25 14:00] VITALS: BP 96/40; PULSE 58; RESP 18; TEMP 36.4; O2SAT 95
[2024-07-25] MEDS: levoFLOXacin 750 MG TABLET PO (14:01)
[2024-07-25] MEDS: DICYCLOMINE HCL 10 MG CAPSULE PO (16:54)
[2024-07-25] MEDS: BACLOFEN 10 MG TABLET 20 MG PO (18:08)
[2024-07-25] MEDS: ZOLPIDEM TARTRATE (*CRX) 5 MG TABLET PO (20:22)
[2024-07-25 20:55] VITALS: BP 118/67; PULSE 65; RESP 14; TEMP 36.3; O2SAT 98
[2024-07-25 22:49] VITALS: PULSE 64; O2SAT 97
[2024-07-26 02:11] VITALS: PULSE 62; O2SAT 92
[2024-07-26] MEDS: HYDROmorphone HCL INJ (*CRX) 1 MG/ML SYR 0.5 MG IV PUSH ×2 (03:04→21:06)
[2024-07-26 04:48] VITALS: BP 93/56; PULSE 66; RESP 12; TEMP 36.1; O2SAT 97
[2024-07-26] MEDS: ATORVASTATIN 10 MG TABLET PO (08:28)
[2024-07-26] MEDS: GABAPENTIN 300 MG CAPSULE 900 MG PO ×3 (08:28→16:49)
[2024-07-26] MEDS: ESCITALOPRAM OXALATE 10 MG TABLET 20 MG PO (08:28)
[2024-07-26 08:29] VITALS: PULSE 66
[2024-07-26] MEDS: LOSARTAN POTASSIUM 100 MG TABLET PO (08:29)
[2024-07-26] MEDS: OLANZapine 5 MG TABLET PO (08:29)
[2024-07-26] MEDS: FUROSEMIDE 20 MG TABLET PO (08:29)
[2024-07-26] MEDS: rOPINIRole HCL 0.5 MG TABLET PO ×2 (08:29→21:05)
[2024-07-26] MEDS: METOPROLOL SUCCINATE EXT REL 12.5 MG TABCR PO (08:29)
[2024-07-26] MEDS: ASPIRIN 81 MG ENTERIC TABLET PO (08:29)
[2024-07-26 08:30] VITALS: RESP 16; O2SAT 97
[2024-07-26] MEDS: DICLOFENAC SODIUM 1% 100 GM GEL (*BKC) 1 APPLIC TOPICAL ×4 (08:30→21:08)
[2024-07-26] MEDS: HYDROcodone/acetaminophen (*CRX) 7.5-325 MG TABLET 1 TAB PO ×2 (08:39→16:52)
--- NOTE | 2024-07-26 11:53 | P.PNIM_ITS ---
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 Patient reported symptoms started about 3 weeks ago but significantly worsened over the past 4 days prior to admission urine output has become cloudy and had increase in segment when she cleaned her bag. Patient with HX of urostomy * CT abdomen/pelvis: 1. Left-sided ileal conduit with fat stranding and trace fluid in the stoma, consistent with inflammation versus scarring. 2. Cystic lesions of the pancreas measuring up to 12 mm, stable from 03/20/2023. The differential diagnosis includes pseudocyst, intraductal papillary mucinous neoplasm (IPMN), mucinous cystic neoplasm (MCN), serous cystadenoma, and neuroendocrine tumor. Consider abdomen MRI without and with contrast in one year. * Wound culture of stoma * UA: cloudy, 1+ blood, positive nitrates, 2+ leuks, 3-5 RBC, 51-100 WBC, 4+ bacteria, and few epithelial cells * UC with Gram-negative bacilli yet to be identified * previous micro reviewed, Enterobacter with multiple resistances on 03/20/2023. Was susceptible to meropenem. * started on meropenem on 07/20 pending cultures * IV fluids: 100 mL/hour x1 L. * analgesics and antipyretics p.r.n. * Blood Cultures NGTD Urine culture grew Citrobacter freundii. With switch antibiotic to levofloxacin complete 7 days course Pain has worsened Enhanced CT was repeated which showed no acute abdominal pelvic findings. Culture from the stoma with Enterococcus faecium Continue current antibiotics which will cover this as well. Will give anti spasmodic to help with the pain. (2) Hypertension: Qualifiers: Hypertension type: primary hypertension Qualified Code(s): I10 - Essential (primary) hypertension Code(s): I10 - Essential (primary) hypertension Status: Chronic Assessment and Plan: * chronic, currently 123/60 * continue home medications: Losartan, metoprolol * BP monitoring per unit protocol (3) Sleep apnea: Qualifiers: Sleep apnea type: unspecified type Qualified Code(s): G47.30 - Sleep apnea, unspecified Code(s): G47.30 - Sleep apnea, unspecified Status: Acute Assessment and Plan: * continue home CPAP (4) Diarrhea: Code(s): R19.7 - Diarrhea, unspecified Status: Acute Assessment and Plan: * C-diff and stool cultures * No BM since admission * Monitor electrolytes replenish as need Plan History of congestive heart failure: Patient denies this. Echo 07/24/2024 with EF 60-65% mildly increased left ventricular wall thickness diastolic function is normal mild pulmonic regurgitation. Pancreatic cyst lower extremity edema: will check doppler legs. Chronic back pain with implanted spine stimulator in place Splenomegaly with splenic lesions likely granulomatous disease Code status: Full code per patient DVT prophylaxis: SCD's PT/OT notes: PT/OT pending Disposition: Continues to have pain Subjective Date/time seen: 07/26/24 11:53 Interval history: Patient continues to have Pain in the abdomen. No nausea vomiting. She compla ins of lower Ext swelling and some tightness Review of Systems Review of Systems: All systems reviewed & are unremarkable except as noted in HPI and below Exam Narrative: APPEARANCE: Well appearing, no distress, well-nourished. HEAD: normocephalic, atraumatic. EYES: PERRLA/EOMI, conjunctivae clear. NOSE: Normal no drainage NECK: Supple. No adenopathy, no masses. RESPIRATORY: Airway patent, respirations nonlabored. Clear to auscultation bilaterally, no rales, rhonchi, wheezing. CARDIOVASCULAR: Regular rate and rhythm without murmurs rubs or gallops. ABDOMINAL: Left lateral quadrant mild abdominal tenderness, ileostomy bag in situ MUSCULOSKELETAL: Moves all extremities. Strength/ROM intact, lower extremity edema noted NEURO: Alert. Cranial nerves II through XII intact. Grossly intact SKIN: Well-appearing external appearance of the ostomy Objective Data Vital Signs Vital Signs: Vital Signs - 24 hr 07/25/24 14:00 07/25/24 20:55 07/25/24 22:49 Temperature 97.6 F 97.4 F L Pulse Rate 58 L 65 64 Respiratory Rate 18 14 Blood Pressure 96/40 L 118/67 Pulse Oximetry 95 98 97 Oxygen Delivery 07/26/24 02:11 07/26/24 04:48 07/26/24 08:29 Temperature 96.9 F L Pulse Rate 62 66 66 Respiratory Rate 12 Blood Pressure 93/56 L Pulse Oximetry 92 97 Oxygen Delivery 07/26/24 08:30 Temperature Pulse Rate Respiratory Rate 16 Blood Pressure Pulse Oximetry 97 Oxygen Delivery Room Air Intake/Output Intake/Output: Intake & Output 07/23/24 07/24/24 07/25/24 07/26/24 23:59 23:59 23:59 23:59 Intake Total 1270 1720 1820 515 Output Total 3850 1670 7210 651 Balance -0260 -2630 -630 -335 Meds/Results Medications: Active Medications Generic Name Dose Route Start Last Admin Trade Name Freq PRN Reason Stop Dose Admin Acetaminophen 650 mg 07/20/24 16:11 Acetaminophen 325 Mg Tablet PO Q6H PRN Mild Pain (1-3) or Fever Hydrocodone Bitart/Acetaminophen 1 tab 01/24/25 11:05 07/26/24 08:39 Hydrocodone/Acetaminophen (*Crx) 7.5-325 Mg Tablet PO 1 tab Q4H PRN Administration Pain Rated 7-10 Alprazolam 0.25 mg 07/20/24 21:44 07/25/24 12:40 Alprazolam (*Crx) 0.25 Mg Tablet PO 0.25 mg TID PRN Administration anxiety Aspirin 81 mg 07/21/24 09:00 07/26/24 08:29 Aspirin 81 Mg Enteric Tablet PO 81 mg DAILY ANA Administration Atorvastatin Calcium 10 mg 07/21/24 09:00 07/26/24 08:28 Atorvastatin 10 Mg Tablet PO 10 mg DAILY ANA Administration Baclofen 20 mg 07/20/24 21:44 07/25/24 18:08 Baclofen 10 Mg Tablet PO 20 mg TID PRN Administration muscle spasm Diclofenac Sodium 1 applic 07/21/24 09:00 07/26/24 08:30 Diclofenac Sodium 1% 100 Gm Gel (*Bkc) TOPICAL 1 applic QID ANA Administration Dicyclomine HCl 10 mg 07/25/24 13:54 07/25/24 16:54 Dicyclomine Hcl 10 Mg Capsule PO 10 mg QID PRN Administration Abdominal Cramping Escitalopram Oxalate 20 mg 07/21/24 09:00 07/26/24 08:28 Escitalopram Oxalate 10 Mg Tablet PO 20 mg DAILY ANA Administration Furosemide 20 mg 07/21/24 09:00 07/26/24 08:29 Furosemide 20 Mg Tablet PO 20 mg QAM ANA Administration Gabapentin 900 mg 07/21/24 09:00 07/26/24 08:28 Gabapentin 300 Mg Capsule PO 900 mg TID ANA Administration Hydromorphone HCl 0.5 mg 07/22/24 22:09 07/26/24 03:04 Hydromorphone Hcl Inj (*Crx) 1 Mg/Ml Syr IV PUSH 0.5 mg Q3H PRN Administration Pain Rated 7-10 Levofloxacin 750 mg 07/23/24 13:10 07/25/24 14:01 Levofloxacin 750 Mg Tablet PO 07/29/24 14:01 750 mg DAILY@1400 ANA Administration Losartan Potassium 100 mg 07/21/24 09:00 07/26/24 08:29 Losartan Potassium 100 Mg Tablet PO 100 mg DAILY ANA Administration Metoprolol Succinate 12.5 mg 07/21/24 09:00 07/26/24 08:29 Metoprolol Succinate Ext Rel 12.5 Mg Tabcr PO 12.5 mg DAILY ANA Administration Olanzapine 5 mg 07/21/24 09:00 07/26/24 08:29 Olanzapine 5 Mg Tablet PO 5 mg DAILY ANA Administration Ondansetron HCl 4 mg 07/20/24 14:12 07/21/24 04:15 Ondansetron Inj 4 Mg/2 Ml Vial IV PUSH 4 mg Q4H PRN Administration Nausea Ondansetron HCl 4 mg 07/20/24 21:44 Ondansetron Hcl Odt 4 Mg Tablet PO Q8H PRN nausea and vomiting Perflutren Lipid Microsphere 0 ml 07/23/24 13:09 Perflutren Lipid Microspheres 1.5 Ml Vial Diluted To 10 Ml Total Volume IV PUSH 07/26/24 13:09 ONCE PRN adequate visualization Protocol Polyethylene Glycol 17 gm 07/20/24 21:44 Polyethylene Glycol 3350 17 Gm Powd.Pack PO DAILY PRN constipation Ropinirole HCl 0.5 mg 07/20/24 21:50 07/26/24 08:29 Ropinirole Hcl 0.5 Mg Tablet PO 0.5 mg Q12HR ANA Administration Senna/Docusate Sodium 1 tab 07/20/24 21:44 07/23/24 10:37 Senna/Docusate Sodium Tablet PO 1 tab Q12H PRN Administration constipation Zolpidem Tartrate 5 mg 07/20/24 21:50 07/25/24 20:22 Zolpidem Tartrate (*Crx) 5 Mg Tablet PO 5 mg QHS ANA Administration Radiology Results: ITS Impressions Abdomen/Pelvis CT 07/24/24 12:25 IMPRESSION: 1. No acute intra-abdominal/pelvic process. 2. Status post cystectomy with left sided ileal conduit. 3. Additional postoperative change of prior cholecystectomy, hysterectomy, infrarenal IVC filter placement, combined instrumented lumbar anterior and posterior spinal fusion and lower thoracic spinal stimulator placement. 4. Diverticulosis. 5. No interval change since 03/20/2023 and a couple cystic lesions at the tail the pancreas measuring up to 1.3 cm. Would recommend annual pre and postcontrast MRI or follow-up.
[2024-07-26 12:44] LABS: Basophils Absolute Auto 0.1 K/mm3 (0.0-0.1); Basophils Percent Auto 0.7 % (0.2-1.2); Eosinophils Absolute Auto 0.1 K/mm3 (0-0.3); Eosinophils Percent Auto 1.9 % (0-4.4); Hematocrit 33.7 % (37.0-47.0); Hemoglobin 11.4 g/dL (12.0-15.0); Immature Granulocyte Absolute 0.04 K/mm3 (0.00-0.031); Immature Granulocyte Percent A 0.6 % (0-0.5); Lymphocytes Absolute Auto 1.83 K/mm3 (0.9-3.2); Lymphocytes Percent Auto 27.1 % (18.3-44.2); Mean Corpuscular HGB Conc 33.8 g/dl (32-36); Mean Corpuscular Hemoglobin 28.6 pg (26-34); Mean Corpuscular Volume 84.7 fl (80-100); Mean Platelet Volume 10.2 fl (7.4-10.4); Monocytes Absolute Auto 0.6 K/mm3 (0.1-0.6); Monocytes Percent Auto 9.5 % (2.6-8.5); Neutrophils Absolute Auto 4.1 K/mm3 (1.3-6.7); Neutrophils Percent Auto 60.2 % (45.5-73.1); Platelet Count Result 207 k/mm3 (150-375); Red Blood Count 3.98 M/mm3 (4.2-5.4); Red Cell Distribution Width 14.4 % (11.5-14.5); White Blood Count 6.8 K/mm3 (4.5-10.0)
[2024-07-26 12:56] LABS: Alanine Aminotransferase 44 U/L (6-35); Albumin Level 3.2 g/dL (3.5-5.1); Alkaline Phosphatase 73 U/L (38-126); Anion Gap 8 mmol/L (4-12); Aspartate Amino Transferase 99 U/L (14-36); Bilirubin,Total 0.8 mg/dL (0.2-1.3); Blood Urea Nitrogen 11 mg/dL (7-17); Calcium 7.6 mg/dL (8.4-10.2); Carbon Dioxide 28 mmol/L (22-30); Chloride 95 mmol/L (98-107); Estimated CRCL calculation 124 ml/min; Estimated Glomerular Filt Rate > 60; Glucose 125 mg/dL (65-110); Magnesium 2.1 mg/dL (1.6-2.3); Potassium 3.7 mmol/L (3.4-5.0); Sodium 131 mmol/L (137-145)
[2024-07-26 12:57] LABS: Lactic Acid Reflex 1.9 mmol/L (0.7-2.0)
[2024-07-26] MEDS: levoFLOXacin 750 MG TABLET PO (13:07)
[2024-07-26 14:00] VITALS: BP 90/55; PULSE 66; RESP 18; TEMP 36.4; O2SAT 97
[2024-07-26 17:15] LABS: Add Urine Microscopic? NO; Appearance Urine Clear (Clear); Bilirubin Urine Negative (Negative); Blood Urine Negative (Negative); Color Urine Yellow (Yellow); Glucose Urine UA Negative (Negative); Ketones Urine Negative (Negative); Leukocyte Esterase Ur Negative LEU/UL (Negative); Nitrate Urine Negative (Negative); Protein Urine Negative (Negative); Specific Grav Ur 1.008 (1.001-1.035); Urobilinogen Urine 0.2 mg/dL (<2.0)
[2024-07-26] MEDS: ZOLPIDEM TARTRATE (*CRX) 5 MG TABLET PO (21:06)
[2024-07-26 22:00] VITALS: BP 108/49; PULSE 64; RESP 18; TEMP 36.6; O2SAT 96
[2024-07-26] MEDS: BACLOFEN 10 MG TABLET 20 MG PO (23:33)
[2024-07-27] MEDS: HYDROcodone/acetaminophen (*CRX) 7.5-325 MG TABLET 1 TAB PO ×3 (04:21→19:22)
[2024-07-27 06:00] VITALS: BP 96/59; PULSE 75; RESP 18; TEMP 36.5; O2SAT 99
[2024-07-27 09:10] VITALS: PULSE 75
[2024-07-27] MEDS: ASPIRIN 81 MG ENTERIC TABLET PO (09:10)
[2024-07-27] MEDS: METOPROLOL SUCCINATE EXT REL 12.5 MG TABCR PO (09:10)
[2024-07-27] MEDS: rOPINIRole HCL 0.5 MG TABLET PO ×2 (09:10→21:20)
[2024-07-27] MEDS: LOSARTAN POTASSIUM 100 MG TABLET PO (09:11)
[2024-07-27] MEDS: GABAPENTIN 300 MG CAPSULE 900 MG PO ×3 (09:11→16:23)
[2024-07-27] MEDS: ESCITALOPRAM OXALATE 10 MG TABLET 20 MG PO (09:12)
[2024-07-27] MEDS: OLANZapine 5 MG TABLET PO (09:12)
[2024-07-27] MEDS: ATORVASTATIN 10 MG TABLET PO (09:12)
[2024-07-27 09:13] VITALS: RESP 18; O2SAT 99
[2024-07-27] MEDS: FUROSEMIDE 20 MG TABLET PO (09:13)
[2024-07-27] MEDS: DICLOFENAC SODIUM 1% 100 GM GEL (*BKC) 1 APPLIC TOPICAL ×4 (09:13→21:30)
[2024-07-27] MEDS: levoFLOXacin 750 MG TABLET PO (13:10)
--- NOTE | 2024-07-27 13:41 | P.PNIM_ITS ---
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 Patient reported symptoms started about 3 weeks ago but significantly worsened over the past 4 days prior to admission urine output has become cloudy and had increase in segment when she cleaned her bag. Patient with HX of urostomy * CT abdomen/pelvis: 1. Left-sided ileal conduit with fat stranding and trace fluid in the stoma, consistent with inflammation versus scarring. 2. Cystic lesions of the pancreas measuring up to 12 mm, stable from 03/20/2023. The differential diagnosis includes pseudocyst, intraductal papillary mucinous neoplasm (IPMN), mucinous cystic neoplasm (MCN), serous cystadenoma, and neuroendocrine tumor. Consider abdomen MRI without and with contrast in one year. * Wound culture of stoma * UA: cloudy, 1+ blood, positive nitrates, 2+ leuks, 3-5 RBC, 51-100 WBC, 4+ bacteria, and few epithelial cells * UC with Gram-negative bacilli yet to be identified * previous micro reviewed, Enterobacter with multiple resistances on 03/20/2023. Was susceptible to meropenem. * started on meropenem on 07/20 pending cultures * IV fluids: 100 mL/hour x1 L. * analgesics and antipyretics p.r.n. * Blood Cultures NGTD Urine culture grew Citrobacter freundii. With switch antibiotic to levofloxacin complete 7 days course Pain has worsened Enhanced CT was repeated which showed no acute abdominal pelvic findings. Culture from the stoma with Enterococcus faecium resistant to ampicillin and vanc discussed risk with linezolid will hold her Lexapro. Start linezolid tonight. She is agreeable. Continue anti spasmodic to help with the pain. (2) Hypertension: Qualifiers: Hypertension type: primary hypertension Qualified Code(s): I10 - Essential (primary) hypertension Code(s): I10 - Essential (primary) hypertension Status: Chronic Assessment and Plan: * chronic, currently 123/60 * continue home medications: Losartan, metoprolol * BP monitoring per unit protocol (3) Sleep apnea: Qualifiers: Sleep apnea type: unspecified type Qualified Code(s): G47.30 - Sleep apnea, unspecified Code(s): G47.30 - Sleep apnea, unspecified Status: Acute Assessment and Plan: * continue home CPAP (4) Diarrhea: Code(s): R19.7 - Diarrhea, unspecified Status: Acute Assessment and Plan: * C-diff and stool cultures * No BM since admission * Monitor electrolytes replenish as need Plan History of congestive heart failure: Patient denies this. Echo 07/24/2024 with EF 60-65% mildly increased left ventricular wall thickness diastolic function is normal mild pulmonic regurgitation. Pancreatic cyst lower extremity edema: Venous duplex negative. Will give a of Lasix Chronic back pain with implanted spine stimulator in place Splenomegaly with splenic lesions likely granulomatous disease Code status: Full code per patient DVT prophylaxis: SCD's PT/OT notes: PT/OT pending Disposition: Continues to have pain Subjective Date/time seen: 07/27/24 13:41 Interval history: Abdominal discomfort persists but better than yesterday. Complains of leg cramps and swelling in legs reports some shortness of breath Review of Systems Review of Systems: All systems reviewed & are unremarkable except as noted in HPI and below Exam Narrative: APPEARANCE: Well appearing, no distress, well-nourished. HEAD: normocephalic, atraumatic. EYES: PERRLA/EOMI, conjunctivae clear. NOSE: Normal no drainage NECK: Supple. No adenopathy, no masses. RESPIRATORY: Airway patent, respirations nonlabored. Clear to auscultation bilaterally, no rales, rhonchi, wheezing. CARDIOVASCULAR: Regular rate and rhythm without murmurs rubs or gallops. ABDOMINAL: Left lateral quadrant mild abdominal tenderness, ileostomy bag in situ MUSCULOSKELETAL: Moves all extremities. Strength/ROM intact, lower extremity edema noted NEURO: Alert. Cranial nerves II through XII intact. Grossly intact SKIN: Well-appearing external appearance of the ostomy Objective Data Vital Signs Vital Signs: Vital Signs - 24 hr 07/26/24 14:00 07/26/24 21:00 07/26/24 22:00 Temperature 97.6 F 97.8 F Pulse Rate 66 64 Respiratory Rate 18 18 Blood Pressure 90/55 L 108/49 L Pulse Oximetry 97 96 Oxygen Delivery Room Air 07/27/24 06:00 07/27/24 09:10 07/27/24 09:13 Temperature 97.7 F Pulse Rate 75 75 Respiratory Rate 18 18 Blood Pressure 96/59 L Pulse Oximetry 99 99 Oxygen Delivery Room Air Intake/Output Intake/Output: Intake & Output 07/24/24 07/25/24 07/26/24 07/27/24 23:59 23:59 23:59 23:59 Intake Total 1720 1820 995 240 Output Total 0127 6030 9875 9813 Balance -2630 -630 -1105 -5610 Meds/Results Medications: Active Medications Generic Name Dose Route Start Last Admin Trade Name Freq PRN Reason Stop Dose Admin Acetaminophen 650 mg 07/20/24 16:11 Acetaminophen 325 Mg Tablet PO Q6H PRN Mild Pain (1-3) or Fever Hydrocodone Bitart/Acetaminophen 1 tab 07/23/24 11:05 07/27/24 09:11 Hydrocodone/Acetaminophen (*Crx) 7.5-325 Mg Tablet PO 1 tab Q4H PRN Administration Pain Rated 7-10 Alprazolam 0.25 mg 07/20/24 21:44 07/25/24 12:40 Alprazolam (*Crx) 0.25 Mg Tablet PO 0.25 mg TID PRN Administration anxiety Aspirin 81 mg 07/21/24 09:00 07/27/24 09:10 Aspirin 81 Mg Enteric Tablet PO 81 mg DAILY ANA Administration Atorvastatin Calcium 10 mg 07/21/24 09:00 07/27/24 09:12 Atorvastatin 10 Mg Tablet PO 10 mg DAILY ANA Administration Baclofen 20 mg 07/20/24 21:44 07/26/24 23:33 Baclofen 10 Mg Tablet PO 20 mg TID PRN Administration muscle spasm Diclofenac Sodium 1 applic 07/21/24 09:00 07/27/24 12:46 Diclofenac Sodium 1% 100 Gm Gel (*Bkc) TOPICAL 1 applic QID ANA Administration Dicyclomine HCl 10 mg 07/25/24 13:54 07/25/24 16:54 Dicyclomine Hcl 10 Mg Capsule PO 10 mg QID PRN Administration Abdominal Cramping Escitalopram Oxalate 20 mg 07/21/24 09:00 07/27/24 09:12 Escitalopram Oxalate 10 Mg Tablet PO 20 mg DAILY ANA Administration Furosemide 20 mg 07/21/24 09:00 07/27/24 09:13 Furosemide 20 Mg Tablet PO 20 mg QAM ANA Administration Gabapentin 900 mg 07/21/24 09:00 07/27/24 12:47 Gabapentin 300 Mg Capsule PO 900 mg TID ANA Administration Hydromorphone HCl 0.5 mg 07/22/24 22:09 07/26/24 21:06 Hydromorphone Hcl Inj (*Crx) 1 Mg/Ml Syr IV PUSH 0.5 mg Q3H PRN Administration Pain Rated 7-10 Levofloxacin 750 mg 07/23/24 13:10 07/27/24 13:10 Levofloxacin 750 Mg Tablet PO 07/29/24 14:01 750 mg DAILY@1400 ANA Administration Linezolid 600 mg 07/27/24 21:00 Linezolid 600 Mg Tablet PO Q12HR [facility] Losartan Potassium 100 mg 01/22/25 09:00 07/27/24 09:11 Losartan Potassium 100 Mg Tablet PO 100 mg DAILY ANA Administration Metoprolol Succinate 12.5 mg 07/21/24 09:00 07/27/24 09:10 Metoprolol Succinate Ext Rel 12.5 Mg Tabcr PO 12.5 mg DAILY ANA Administration Olanzapine 5 mg 07/21/24 09:00 07/27/24 09:12 Olanzapine 5 Mg Tablet PO 5 mg DAILY ANA Administration Ondansetron HCl 4 mg 07/20/24 14:12 07/21/24 04:15 Ondansetron Inj 4 Mg/2 Ml Vial IV PUSH 4 mg Q4H PRN Administration Nausea Ondansetron HCl 4 mg 07/20/24 21:44 Ondansetron Hcl Odt 4 Mg Tablet PO Q8H PRN nausea and vomiting Polyethylene Glycol 17 gm 07/20/24 21:44 Polyethylene Glycol 3350 17 Gm Powd.Pack PO DAILY PRN constipation Ropinirole HCl 0.5 mg 07/20/24 21:50 07/27/24 09:10 Ropinirole Hcl 0.5 Mg Tablet PO 0.5 mg Q12HR ANA Administration Senna/Docusate Sodium 1 tab 07/20/24 21:44 07/23/24 10:37 Senna/Docusate Sodium Tablet PO 1 tab Q12H PRN Administration constipation Zolpidem Tartrate 5 mg 07/20/24 21:50 07/26/24 21:06 Zolpidem Tartrate (*Crx) 5 Mg Tablet PO 5 mg QHS NAA Administration Radiology Results: ITS Impressions Abdomen/Pelvis CT 07/24/24 12:25 IMPRESSION: 1. No acute intra-abdominal/pelvic process. 2. Status post cystectomy with left sided ileal conduit. 3. Additional postoperative change of prior cholecystectomy, hysterectomy, infrarenal IVC filter placement, combined instrumented lumbar anterior and posterior spinal fusion and lower thoracic spinal stimulator placement. 4. Diverticulosis. 5. No interval change since 03/20/2023 and a couple cystic lesions at the tail the pancreas measuring up to 1.3 cm. Would recommend annual pre and postcontrast MRI or follow-up. Venous Doppler Study 07/26/24 15:47 IMPRESSION: 1. No deep venous thrombosis. Labs Labs: Laboratory Results - last 24 hr 07/26/24 16:33 Urine Color Yellow Urine Appearance Clear Urine pH 6.0 Ur Specific [place] 1.008 Urine Protein Negative Urine Glucose (UA) Negative Urine Ketones Negative Ur Blood (Man) Negative Urine Nitrate Negative Urine Bilirubin Negative Urine Urobilinogen 0.2 Ur Leukocyte Esterase Negative
[2024-07-27 14:00] VITALS: BP 102/52; PULSE 71; RESP 18; TEMP 36.1; O2SAT 97
[2024-07-27] MEDS: FUROSEMIDE INJ 40 MG/4 ML VIAL IV PUSH (14:36)
[2024-07-27] MEDS: ZOLPIDEM TARTRATE (*CRX) 5 MG TABLET PO (21:20)
[2024-07-27] MEDS: HYDROmorphone HCL INJ (*CRX) 1 MG/ML SYR 0.5 MG IV PUSH (21:21)
[2024-07-27] MEDS: LINEZOLID 600 MG TABLET PO (21:21)
[2024-07-27 22:30] VITALS: BP 103/53; PULSE 69; RESP 16; TEMP 36.8; O2SAT 96
[2024-07-27] MEDS: BACLOFEN 10 MG TABLET 20 MG PO (23:31)
[2024-07-28] MEDS: HYDROcodone/acetaminophen (*CRX) 7.5-325 MG TABLET 1 TAB PO ×4 (00:42→20:40)
[2024-07-28] MEDS: HYDROmorphone HCL INJ (*CRX) 1 MG/ML SYR 0.5 MG IV PUSH ×3 (03:43→21:57)
[2024-07-28 06:03] LABS: Basophils Absolute Auto 0.1 K/mm3 (0.0-0.1); Eosinophils Absolute Auto 0.1 K/mm3 (0-0.3); Eosinophils Percent Auto 2.5 % (0-4.4); Hematocrit 32.8 % (37.0-47.0); Immature Granulocyte Absolute 0.02 K/mm3 (0.00-0.031); Immature Granulocyte Percent A 0.4 % (0-0.5); Lymphocytes Absolute Auto 1.51 K/mm3 (0.9-3.2); Lymphocytes Percent Auto 29.6 % (18.3-44.2); Mean Corpuscular HGB Conc 33.5 g/dl (32-36); Mean Corpuscular Hemoglobin 28.8 pg (26-34); Mean Corpuscular Volume 85.9 fl (80-100); Monocytes Absolute Auto 0.5 K/mm3 (0.1-0.6); Neutrophils Absolute Auto 2.9 K/mm3 (1.3-6.7); Neutrophils Percent Auto 56.5 % (45.5-73.1); Platelet Count Result 193 k/mm3 (150-375); Red Blood Count 3.82 M/mm3 (4.2-5.4); Red Cell Distribution Width 13.9 % (11.5-14.5); White Blood Count 5.1 K/mm3 (4.5-10.0)
[2024-07-28 06:19] LABS: Alanine Aminotransferase 40 U/L (6-35); Alkaline Phosphatase 72 U/L (38-126); Anion Gap 6 mmol/L (4-12); Aspartate Amino Transferase 65 U/L (14-36); Bilirubin,Total 0.5 mg/dL (0.2-1.3); Blood Urea Nitrogen 12 mg/dL (7-17); Calcium 7.9 mg/dL (8.4-10.2); Carbon Dioxide 30 mmol/L (22-30); Chloride 97 mmol/L (98-107); Estimated CRCL calculation 136 ml/min; Estimated Glomerular Filt Rate > 60; Glucose 127 mg/dL (65-110); Magnesium 1.9 mg/dL (1.6-2.3); Potassium 3.6 mmol/L (3.4-5.0); Sodium 133 mmol/L (137-145)
[2024-07-28 06:49] VITALS: BP 96/55; PULSE 60; RESP 16; TEMP 36.6; O2SAT 96
[2024-07-28] MEDS: ASPIRIN 81 MG ENTERIC TABLET PO (09:00)
[2024-07-28 09:01] VITALS: PULSE 74
[2024-07-28] MEDS: METOPROLOL SUCCINATE EXT REL 12.5 MG TABCR PO (09:01)
[2024-07-28] MEDS: LINEZOLID 600 MG TABLET PO ×2 (09:01→21:56)
[2024-07-28] MEDS: FUROSEMIDE 20 MG TABLET PO (09:01)
[2024-07-28] MEDS: LOSARTAN POTASSIUM 100 MG TABLET PO (09:01)
[2024-07-28] MEDS: ATORVASTATIN 10 MG TABLET PO (09:01)
[2024-07-28] MEDS: OLANZapine 5 MG TABLET PO (09:01)
[2024-07-28] MEDS: rOPINIRole HCL 0.5 MG TABLET PO ×2 (09:02→21:56)
[2024-07-28] MEDS: DICLOFENAC SODIUM 1% 100 GM GEL (*BKC) 1 APPLIC TOPICAL ×4 (09:02→21:57)
[2024-07-28] MEDS: GABAPENTIN 300 MG CAPSULE 900 MG PO ×3 (09:02→16:13)
--- NOTE | 2024-07-28 12:37 | P.PNIM_ITS ---
Progress Note: A&P Assessment and Plan (1) Chest pain: Code(s): R07.9 - Chest pain, unspecified Status: Acute Assessment and Plan: Patient with acute onset of chest pain described as pressure. No EKG at the time but EKG now showing normal sinus rhythm with first degree AV block, low voltage and nonspecific ST and T wave changes. No change except for the first degree AVB (although this has been noted in older EKGs so felt this is more intermittent and chronic). Trop negative. Echo 07/24/2024 with EF 60-65% mildly increased left ventricular wall thickness diastolic function is normal mild pulmonic regurgitation. Suspect either acid reflux vs anxiety (she is off her lexapro now) Place on tele. Continue ASA, Lipitor and Metoprolol. Add Tums (2) Urinary tract infection: Qualifiers: Hematuria presence: without hematuria Urinary tract infection type: acute cystitis Qualified Code(s): N30.00 - Acute cystitis without hematuria Code(s): N39.0 - Urinary tract infection, site not specified Status: Acute Assessment and Plan: Patient presented with odor from urostomy and inflamed urostomy stoma. Patient reported symptoms started about 3 weeks ago but significantly worsened over the past 4 days prior to admission. Urine was cloudy CT abdomen/pelvis showing left-sided ileal conduit with fat stranding and trace fluid in the stoma, consistent with inflammation versus scarring. * UA: cloudy, 1+ blood, positive nitrates, 2+ leuks, 3-5 RBC, 51-100 WBC, 4+ bacteria, and few epithelial cells * previous micro reviewed, Enterobacter with multiple resistances on 03/20/2023. Was susceptible to meropenem. * started on meropenem on 07/20 pending cultures * UCx growing Citrobacter freundii. With switch antibiotic to levofloxacin complete 7 days course * IV fluids: 100 mL/hour x1 L. * Culture from the stoma with Enterococcus faecium resistant to ampicillin and vanc discussed risk with linezolid will hold her Lexapro. * analgesics and antipyretics p.r.n. * Blood Cultures negative Pain worsened but repeat CT Abd/pelvis showed no acute abdominal pelvic findings. Start linezolid tonight. She is agreeable. Continue anti spasmodic to help with the pain. (3) Hypertension: Qualifiers: Hypertension type: primary hypertension Qualified Code(s): I10 - Essential (primary) hypertension Code(s): I10 - Essential (primary) hypertension Status: Chronic Assessment and Plan: * chronic, currently 103/53 * continue home medications: Losartan, metoprolol * BP monitoring per unit protocol (4) Sleep apnea: Qualifiers: Sleep apnea type: unspecified type Qualified Code(s): G47.30 - Sleep apnea, unspecified Code(s): G47.30 - Sleep apnea, unspecified Status: Acute Assessment and Plan: * continue home CPAP (5) Diarrhea: Code(s): R19.7 - Diarrhea, unspecified Status: Acute Assessment and Plan: * C-diff negative; stool cultures negative * No BM since admission * Monitor electrolytes replenish as need Plan History of congestive heart failure: Patient denies this. Echo 07/24/2024 with EF 60-65% mildly increased left ventricular wall thickness diastolic function is normal mild pulmonic regurgitation. Pancreatic cyst - CT scan showing cystic lesions of the pancreas measuring up to 12 mm, stable from 03/20/2023. The differential diagnosis includes pseudocyst, intraductal papillary mucinous neoplasm (IPMN), mucinous cystic neoplasm (MCN), serous cystadenoma, and neuroendocrine tumor. Consider abdomen MRI without and with contrast in one year. Discussed with patient Lower extremity edema: Venous duplex negative. Lasix once given yesterday with excellent UOP. BP soft so will hold on repeating this. Chronic back pain with implanted spine stimulator in place Splenomegaly with splenic lesions likely granulomatous disease Code status: Full code DVT prophylaxis: SCD's, IVC filter in place. Subjective Date/time seen: 07/28/24 12:37 Interval history: 58yo female with YAJAIRA on CPAP, stroke, paraplegia, HTN and cystectomy with ileal conduit here for foul odor from urostomy. Assuming care. Chart reviewed. Patient complains of pain in the left abdomen radiating to the back. Heating pad with benefit. She mentions she had chest pain and shortness of breath last evening that lasted about 30 minutes. It was associated with tunnel vision. She describes the pain as pressure. She has had similar symptoms when she has anxiety but these are more brief. She did feel anxious and overheated last night. she did mention to the nurse and morphine was given with benefit. Denies the chest pain was pleuritic or palpable. Exam Narrative: AF 97.8 96/55 74 16 96% ra Gen - NARD Chest - CTA bilaterally, nml RR. left lower chest and flank palpable pain w/o overlying skin lesions CV - RRR S1/S2 Abd - Soft, stoma in the left lower quadrant with pain around the bag. Clear urine in the bag. Ext - trace pedal edema Neuro - Alert and oriented. paraplegic Psych - anxios mood Skin - Warm and dry Objective Data Vital Signs Vital Signs: Vital Signs - 24 hr 07/27/24 14:00 07/27/24 20:00 07/27/24 22:30 Temperature 97.0 F L 98.2 F Pulse Rate 71 69 Respiratory Rate 18 16 Blood Pressure 102/52 L 103/53 L Pulse Oximetry 97 96 Oxygen Delivery Room Air 07/28/24 06:49 07/28/24 08:00 07/28/24 09:01 Temperature 97.8 F Pulse Rate 60 74 Respiratory Rate 16 Blood Pressure 96/55 L Pulse Oximetry 96 Oxygen Delivery Room Air Intake/Output Intake/Output: Intake & Output 07/25/24 07/26/24 07/27/24 07/28/24 23:59 23:59 23:59 23:59 Intake Total 1820 995 720 590 Output Total 2450 2100 7750 2200 Balance -827 -1105 -7030 -1610 Meds/Results Medications: Active Medications Generic Name Dose Route Start Last Admin Trade Name Freq PRN Reason Stop Dose Admin Acetaminophen 650 mg 07/20/24 16:11 Acetaminophen 325 Mg Tablet PO Q6H PRN Mild Pain (1-3) or Fever Hydrocodone Bitart/Acetaminophen 1 tab 07/23/24 11:05 07/28/24 08:58 Hydrocodone/Acetaminophen (*Crx) 7.5-325 Mg Tablet PO 1 tab Q4H PRN Administration Pain Rated 7-10 Alprazolam 0.25 mg 07/20/24 21:44 07/25/24 12:40 Alprazolam (*Crx) 0.25 Mg Tablet PO 0.25 mg TID PRN Administration anxiety Aspirin 81 mg 07/21/24 09:00 07/28/24 09:00 Aspirin 81 Mg Enteric Tablet PO 81 mg DAILY ANA Administration Atorvastatin Calcium 10 mg 07/21/24 09:00 07/28/24 09:01 Atorvastatin 10 Mg Tablet PO 10 mg DAILY ANA Administration Baclofen 20 mg 07/20/24 21:44 07/27/24 23:31 Baclofen 10 Mg Tablet PO 20 mg TID PRN Administration muscle spasm Diclofenac Sodium 1 applic 07/21/24 09:00 07/28/24 12:07 Diclofenac Sodium 1% 100 Gm Gel (*Bkc) TOPICAL 1 applic QID ANA Administration Dicyclomine HCl 10 mg 07/25/24 13:54 07/25/24 16:54 Dicyclomine Hcl 10 Mg Capsule PO 10 mg QID PRN Administration Abdominal Cramping Escitalopram Oxalate 20 mg 07/21/24 09:00 07/27/24 09:12 Escitalopram Oxalate 10 Mg Tablet PO 20 mg DAILY ANA Administration Furosemide 20 mg 07/21/24 09:00 07/28/24 09:01 Furosemide 20 Mg Tablet PO 20 mg QAM ANA Administration Gabapentin 900 mg 07/21/24 09:00 07/28/24 12:04 Gabapentin 300 Mg Capsule PO 900 mg TID ANA Administration Hydromorphone HCl 0.5 mg 07/22/24 22:09 07/28/24 12:05 Hydromorphone Hcl Inj (*Crx) 1 Mg/Ml Syr IV PUSH 0.5 mg Q3H PRN Administration Pain Rated 7-10 Levofloxacin 750 mg 07/23/24 13:10 07/27/24 13:10 Levofloxacin 750 Mg Tablet PO 07/29/24 14:01 750 mg DAILY@1400 ANA Administration Linezolid 600 mg 07/27/24 21:00 07/28/24 09:01 Linezolid 600 Mg Tablet PO 600 mg Q12HR ANA Administration Losartan Potassium 100 mg 07/21/24 09:00 07/28/24 09:01 Losartan Potassium 100 Mg Tablet PO 100 mg DAILY ANA Administration Metoprolol Succinate 12.5 mg 07/21/24 09:00 07/28/24 09:01 Metoprolol Succinate Ext Rel 12.5 Mg Tabcr PO 12.5 mg DAILY ANA Administration Olanzapine 5 mg 07/21/24 09:00 07/28/24 09:01 Olanzapine 5 Mg Tablet PO 5 mg DAILY ANA Administration Ondansetron HCl 4 mg 07/20/24 14:12 07/21/24 04:15 Ondansetron Inj 4 Mg/2 Ml Vial IV PUSH 4 mg Q4H PRN Administration Nausea Ondansetron HCl 4 mg 07/20/24 21:44 Ondansetron Hcl Odt 4 Mg Tablet PO Q8H PRN nausea and vomiting Polyethylene Glycol 17 gm 07/20/24 21:44 Polyethylene Glycol 3350 17 Gm Powd.Pack PO DAILY PRN constipation Ropinirole HCl 0.5 mg 07/20/24 21:50 07/28/24 09:02 Ropinirole Hcl 0.5 Mg Tablet PO 0.5 mg Q12HR ANA Administration Senna/Docusate Sodium 1 tab 07/20/24 21:44 07/23/24 10:37 Senna/Docusate Sodium Tablet PO 1 tab Q12H PRN Administration constipation Zolpidem Tartrate 5 mg 07/20/24 21:50 07/27/24 21:20 Zolpidem Tartrate (*Crx) 5 Mg Tablet PO 5 mg QHS ANA Administration Radiology Results: ITS Impressions Abdomen/Pelvis CT 07/24/24 12:25 IMPRESSION: 1. No acute intra-abdominal/pelvic process. 2. Status post cystectomy with left sided ileal conduit. 3. Additional postoperative change of prior cholecystectomy, hysterectomy, infrarenal IVC filter placement, combined instrumented lumbar anterior and posterior spinal fusion and lower thoracic spinal stimulator placement. 4. Diverticulosis. 5. No interval change since 03/20/2023 and a couple cystic lesions at the tail the pancreas measuring up to 1.3 cm. Would recommend annual pre and postcontrast MRI or follow-up. Venous Doppler Study 07/26/24 15:47 IMPRESSION: 1. No deep venous thrombosis. Labs Labs: Laboratory Results - last 24 hr 07/28/24 05:49 WBC 5.1 RBC 3.82 L Hgb 11.0 L Hct 32.8 L MCV 85.9 MCH 28.8 MCHC 33.5 RDW 13.9 Plt Count 193 MPV 10.0 Immature Gran % (Auto) 0.4 Neut % (Auto) 56.5 Lymph % (Auto) 29.6 [place] % (Auto) 10.0 H Eos % (Auto) 2.5 Baso % (Auto) 1.0 Lymph # (Auto) 1.51 [place] # (Auto) 0.5 Eos # (Auto) 0.1 Baso # (Auto) 0.1 Abs Immat Gran (auto) 0.02 Absolute Neuts (auto) 2.9 Absolute Nucleated RBC 0.000 Nucleated RBC % 0.0 Sodium 133 L Potassium 3.6 Chloride 97 L Carbon Dioxide 30 Anion Gap 6 BUN 12 Creatinine 0.48 L Estim Creat Clear Calc 136 Estimated GFR > 60 Glucose 127 H Calcium 7.9 L Magnesium 1.9 Total Bilirubin 0.5 AST 65 H ALT 40 H Alkaline Phosphatase 72 Total Protein 6.0 L Albumin 3.0 L
--- NOTE | 2024-07-28 12:38 | ECG_ITS ---
Test Date: 2024-07-28 13:38:21 Measurements Intervals [place] Rate: 63 P: 48 DE: 212 QRS: 27 QRSD: 107 T: 27 QT: 436 QTc: 448 Interpretive Statements SINUS RHYTHM WITH FIRST DEGREE AV BLOCK LOW QRS VOLTAGE IN PRECORDIAL LEADS [QRS DEFLECTION < 1.0 mV IN CHEST LEADS] NONSPECIFIC ST AND T WAVE ABNORMALITY Compared to ECG 04/20/2024 17:54:36 First degree AV block now present Electronically Signed On 07-28-2024 16:12:25 [employer] SYSTEM OPERATOR by Cody Lorenzo M.D.
[2024-07-28] MEDS: levoFLOXacin 750 MG TABLET PO (13:18)
[2024-07-28 13:48] LABS: Troponin I < 0.012 ng/mL (0.000-0.034)
[2024-07-28 14:00] VITALS: BP 103/53; PULSE 63; RESP 16; TEMP 36.1; O2SAT 95
[2024-07-28 16:00] VITALS: PULSE 63
[2024-07-28 20:45] VITALS: PULSE 65
[2024-07-28 21:27] VITALS: BP 103/61; PULSE 68; RESP 18; TEMP 36.2; O2SAT 98
[2024-07-28] MEDS: ZOLPIDEM TARTRATE (*CRX) 5 MG TABLET PO (21:56)
[2024-07-29] VITALS (9 sets, daily range): BP systolic 97–109; BP diastolic 46–65; PULSE 56–82; RESP 16–18; TEMP 36.2–36.6; O2SAT 96–99
[2024-07-29] MEDS: HYDROcodone/acetaminophen (*CRX) 7.5-325 MG TABLET 1 TAB PO ×4 (02:33→20:04)
[2024-07-29 06:32] LABS: Basophils Absolute Auto 0.1 K/mm3 (0.0-0.1); Basophils Percent Auto 0.9 % (0.2-1.2); Eosinophils Absolute Auto 0.2 K/mm3 (0-0.3); Eosinophils Percent Auto 2.9 % (0-4.4); Hematocrit 31.8 % (37.0-47.0); Hemoglobin 10.6 g/dL (12.0-15.0); Immature Granulocyte Absolute 0.04 K/mm3 (0.00-0.031); Immature Granulocyte Percent A 0.7 % (0-0.5); Lymphocytes Absolute Auto 1.54 K/mm3 (0.9-3.2); Lymphocytes Percent Auto 26.7 % (18.3-44.2); Mean Corpuscular HGB Conc 33.3 g/dl (32-36); Mean Corpuscular Volume 83.9 fl (80-100); Mean Platelet Volume 9.9 fl (7.4-10.4); Monocytes Absolute Auto 0.5 K/mm3 (0.1-0.6); Monocytes Percent Auto 9.4 % (2.6-8.5); Neutrophils Absolute Auto 3.4 K/mm3 (1.3-6.7); Neutrophils Percent Auto 59.4 % (45.5-73.1); Platelet Count Result 190 k/mm3 (150-375); Red Blood Count 3.79 M/mm3 (4.2-5.4); Red Cell Distribution Width 13.7 % (11.5-14.5); White Blood Count 5.8 K/mm3 (4.5-10.0)
[2024-07-29 06:43] LABS: Alanine Aminotransferase 45 U/L (6-35); Alkaline Phosphatase 68 U/L (38-126); Anion Gap 6 mmol/L (4-12); Aspartate Amino Transferase 82 U/L (14-36); Bilirubin,Total 0.5 mg/dL (0.2-1.3); Blood Urea Nitrogen 12 mg/dL (7-17); Carbon Dioxide 30 mmol/L (22-30); Chloride 94 mmol/L (98-107); Estimated CRCL calculation 131 ml/min; Estimated Glomerular Filt Rate > 60; Glucose 102 mg/dL (65-110); Sodium 130 mmol/L (137-145)
[2024-07-29] MEDS: GABAPENTIN 300 MG CAPSULE 900 MG PO ×3 (09:28→16:25)
[2024-07-29] MEDS: METOPROLOL SUCCINATE EXT REL 12.5 MG TABCR PO (09:29)
[2024-07-29] MEDS: ASPIRIN 81 MG ENTERIC TABLET PO (09:29)
[2024-07-29] MEDS: LOSARTAN POTASSIUM 100 MG TABLET PO (09:29)
[2024-07-29] MEDS: rOPINIRole HCL 0.5 MG TABLET PO ×2 (09:29→21:13)
[2024-07-29] MEDS: FUROSEMIDE 20 MG TABLET PO (09:32)
[2024-07-29] MEDS: LINEZOLID 600 MG TABLET PO ×2 (09:32→21:13)
[2024-07-29] MEDS: ATORVASTATIN 10 MG TABLET PO (09:32)
[2024-07-29] MEDS: OLANZapine 5 MG TABLET PO (09:32)
[2024-07-29] MEDS: DICLOFENAC SODIUM 1% 100 GM GEL (*BKC) 1 APPLIC TOPICAL ×4 (09:33→21:14)
--- NOTE | 2024-07-29 09:43 | PCNWS ---
Weekly nutritional screen. Patient is tolerating current heart healthy diet with adequate intake 75-100%. No weight loss reported. No nutritional recommendations at this time.
--- NOTE | 2024-07-29 11:03 | PM.IMPN ---
Progress Note: A&P Assessment and Plan (1) Chest pain: Code(s): R07.9 - Chest pain, unspecified Status: Acute Assessment and Plan: Patient with acute onset of chest pain described as pressure 2 nights ago. No EKG at the time but EKG the next day showing normal sinus rhythm with first degree AV block, low voltage and nonspecific ST and T wave changes. No change except for the first degree AVB (although this has been noted in older EKGs so felt this is more intermittent and chronic). Troponin was negative. Echo 07/24/2024 with EF 60-65%, mildly increased left ventricular wall thickness, normal diastolic function and mild pulmonic regurgitation. Suspect either acid reflux vs anxiety (she is off her lexapro now) vs cardiac chest pain She states her PCP was going to order lexiscan stress and there is a note 06/09/24 showing on was ordered for chest pain. Continue ASA, Lipitor and Metoprolol. Check lexiscan stress test (2) Urinary tract infection: Qualifiers: Hematuria presence: without hematuria Urinary tract infection type: acute cystitis Qualified Code(s): N30.00 - Acute cystitis without hematuria Code(s): N39.0 - Urinary tract infection, site not specified Status: Acute Assessment and Plan: Patient presented with odor from urostomy and inflamed urostomy stoma. Patient reported symptoms started about 3 weeks ago but significantly worsened over the past 4 days prior to admission. Urine was cloudy CT abdomen/pelvis showing left-sided ileal conduit with fat stranding and trace fluid in the stoma, consistent with inflammation versus scarring. UA concerning for UTI although from a urostomy. Meropenem started after noting prior resistant patterns. UCx growing Citrobacter freundii that was relatively ware-sensitive. Abx switched to levofloxacin to complete a 7 days course Culture from the stoma with Enterococcus faecium resistant to ampicillin and vanc. Previous provider discussed risk with linezolid and patient was agreeable. Her Lexapro was held. Blood Cultures negative Abd pain worsened so repeat CT Abd/pelvis performed but this showed no acute findings. Analgesics and antipyretics p.r.n. Continue anti spasmodic to help with the pain. (3) Hypertension: Qualifiers: Hypertension type: primary hypertension Qualified Code(s): I10 - Essential (primary) hypertension Code(s): I10 - Essential (primary) hypertension Status: Chronic Assessment and Plan: Patient's blood pressure was reviewed on 07/29 Blood pressure remains well controlled. Will continue continue to monitor (4) Sleep apnea: Qualifiers: Sleep apnea type: unspecified type Qualified Code(s): G47.30 - Sleep apnea, unspecified Code(s): G47.30 - Sleep apnea, unspecified Status: Acute Assessment and Plan: Stable. Continue home CPAP (5) Diarrhea: Code(s): R19.7 - Diarrhea, unspecified Status: Acute Assessment and Plan: Patient was having diarrhea. C-diff negative; stool cultures negative Resolved Plan Hx of CHF - Patient denies this. Echo 07/24/2024 with EF 60-65%, mildly increased LV wall thickness, normal diastolic function and mild pulmonic regurgitation. Pancreatic cyst - CT scan showing cystic lesions of the pancreas measuring up to 12 mm, stable from 03/20/2023. The differential diagnosis includes pseudocyst, intraductal papillary mucinous neoplasm (IPMN), mucinous cystic neoplasm (MCN), serous cystadenoma, and neuroendocrine tumor. Consider abdomen MRI without and with contrast in one year. Discussed with patient. Has spinal stimulator so will need MRI at facility that can manage this. Lower extremity edema - Venous duplex negative. Lasix once given 07/27 with excellent UOP. BP soft so will hold on repeating this. Chronic back pain - She has chronic low back pain with implanted spine stimulator in place. CT scan showing L1-L5 laminectomies with L1-S1 posterior spinal fusion with bilateral vertical nati and screw fixation at L1-L3. There are also L1-L5 anterior spinal fusion with interbody bone graft cages at each level. Bilateral spinal stimulator leads terminating in the posterior aspect of the central canal to lower thoracic spine. Supportive care. Splenomegaly - CT showing splenic lesions likely granulomatous disease Paraplegia - chronic. She is normally up to a wheel chair. Frequent turning. Code status: Full code DVT prophylaxis: SCD's, IVC filter in place. LE venous doppler negative. Add lovenox Subjective Date/time seen: 07/29/24 11:03 Interval history: 58yo female with YAJAIRA on CPAP, stroke, paraplegia, HTN and cystectomy with ileal conduit here for foul odor from urostomy. She continues to have chronic pain around the ostomy site. Also with recurrent chest pain overnight. She did not receive Tums. She again describes it as a 'pressure' but not pleuritic. States that her PCP was planning on doing a chemical stress test in May but it was never ordered. Also complains of tunnel vision, dizziness and lightheadedness but this happens chronically and intermittently at home. She has tried meclizine with beneift in the past. +BMs. Having more anxiety and wants to go home. Exam Narrative: AF 97.5 108/46 82 16 99% ra Gen - NARD Chest - CTA bilaterally, nml RR. left lower chest and flank palpable pain w/o overlying skin lesions CV - RRR S1/S2. tele showing mild bradycardia overnight. Abd - Soft, stoma in the left lower quadrant with pain around the bag. Clear urine in the bag. +BS. Ext - trace pedal edema Neuro - Alert and oriented. paraplegic. no weakness in the UE. CN 2-12 intact. Psych - anxious mood Skin - Warm and dry Objective Data Vital Signs Vital Signs: Vital Signs - 24 hr 07/28/24 14:00 07/28/24 16:00 07/28/24 20:45 Temperature 96.9 F L Pulse Rate 63 63 Respiratory Rate 16 Blood Pressure 103/53 L Pulse Oximetry 95 Oxygen Delivery Room Air 07/28/24 20:45 07/28/24 21:27 07/29/24 00:00 Temperature 97.1 F L Pulse Rate 65 68 69 Respiratory Rate 18 Blood Pressure 103/61 Pulse Oximetry 98 Oxygen Delivery 07/29/24 04:00 07/29/24 06:00 07/29/24 09:29 Temperature 97.5 F L Pulse Rate 56 L 77 82 Respiratory Rate 16 Blood Pressure 108/46 L Pulse Oximetry 99 Oxygen Delivery Intake/Output Intake/Output: Intake & Output 07/26/24 07/27/24 07/28/24 07/29/24 23:59 23:59 23:59 23:59 Intake Total 751 833 1568 1323 Output Total 5255 3678 [address] [facility] -[phone] Meds/Results Medications: Active Medications Generic Name Dose Route Start Last Admin Trade Name Freq PRN Reason Stop Dose Admin Acetaminophen 650 mg 07/20/24 16:11 Acetaminophen 325 Mg Tablet PO Q6H PRN Mild Pain (1-3) or Fever Hydrocodone Bitart/Acetaminophen 1 tab 01/24/25 11:05 07/29/24 09:27 Hydrocodone/Acetaminophen (*Crx) 7.5-325 Mg Tablet PO 1 tab Q4H PRN Administration Pain Rated 7-10 Alprazolam 0.25 mg 07/20/24 21:44 07/25/24 12:40 Alprazolam (*Crx) 0.25 Mg Tablet PO 0.25 mg TID PRN Administration anxiety Aspirin 81 mg 07/21/24 09:00 07/29/24 09:29 Aspirin 81 Mg Enteric Tablet PO 81 mg DAILY ANA Administration Atorvastatin Calcium 10 mg 07/21/24 09:00 07/29/24 09:32 Atorvastatin 10 Mg Tablet PO 10 mg DAILY NAA Administration Baclofen 20 mg 07/20/24 21:44 07/27/24 23:31 Baclofen 10 Mg Tablet PO 20 mg TID PRN Administration muscle spasm Calcium Carbonate 200 mg 07/28/24 12:37 Calcium Carbonate (Tums) 500 Mg (200 Mg Elemental) PO Q6H PRN Indigestion Diclofenac Sodium 1 applic 07/21/24 09:00 07/29/24 09:33 Diclofenac Sodium 1% 100 Gm Gel (*Bkc) TOPICAL 1 applic QID ANA Administration Dicyclomine HCl 10 mg 07/25/24 13:54 07/25/24 16:54 Dicyclomine Hcl 10 Mg Capsule PO 10 mg QID PRN Administration Abdominal Cramping Escitalopram Oxalate 20 mg 07/21/24 09:00 07/27/24 09:12 Escitalopram Oxalate 10 Mg Tablet PO 20 mg DAILY ANA Administration Furosemide 20 mg 07/21/24 09:00 07/29/24 09:32 Furosemide 20 Mg Tablet PO 20 mg QAM ANA Administration Gabapentin 900 mg 07/21/24 09:00 07/29/24 09:28 Gabapentin 300 Mg Capsule PO 900 mg TID ANA Administration Hydromorphone HCl 0.5 mg 07/22/24 22:09 07/28/24 21:57 Hydromorphone Hcl Inj (*Crx) 1 Mg/Ml Syr IV PUSH 0.5 mg Q3H PRN Administration Pain Rated 7-10 Levofloxacin 750 mg 07/23/24 13:10 07/28/24 13:18 Levofloxacin 750 Mg Tablet PO 07/29/24 14:01 750 mg DAILY@1400 ANA Administration Linezolid 600 mg 07/27/24 21:00 07/29/24 09:32 Linezolid 600 Mg Tablet PO 600 mg Q12HR ANA Administration Losartan Potassium 100 mg 07/21/24 09:00 07/29/24 09:29 Losartan Potassium 100 Mg Tablet PO 100 mg DAILY ANA Administration Meclizine HCl 12.5 mg 07/29/24 11:02 Meclizine Hcl 12.5 Mg Tablet PO QID PRN Dizziness Metoprolol Succinate 12.5 mg 07/21/24 09:00 07/29/24 09:29 Metoprolol Succinate Ext Rel 12.5 Mg Tabcr PO 12.5 mg DAILY ANA Administration Olanzapine 5 mg 07/21/24 09:00 07/29/24 09:32 Olanzapine 5 Mg Tablet PO 5 mg DAILY ANA Administration Ondansetron HCl 4 mg 07/20/24 14:12 07/21/24 04:15 Ondansetron Inj 4 Mg/2 Ml Vial IV PUSH 4 mg Q4H PRN Administration Nausea Ondansetron HCl 4 mg 07/20/24 21:44 Ondansetron Hcl Odt 4 Mg Tablet PO Q8H PRN nausea and vomiting Polyethylene Glycol 17 gm 07/20/24 21:44 Polyethylene Glycol 3350 17 Gm Powd.Pack PO DAILY PRN constipation Ropinirole HCl 0.5 mg 07/20/24 21:50 07/29/24 09:29 Ropinirole Hcl 0.5 Mg Tablet PO 0.5 mg Q12HR ANA Administration Senna/Docusate Sodium 1 tab 07/20/24 21:44 07/23/24 10:37 Senna/Docusate Sodium Tablet PO 1 tab Q12H PRN Administration constipation Zolpidem Tartrate 5 mg 07/20/24 21:50 07/28/24 21:56 Zolpidem Tartrate (*Crx) 5 Mg Tablet PO 5 mg QHS ANA Administration Radiology Results: ITS Impressions Abdomen/Pelvis CT 07/24/24 12:25 IMPRESSION: 1. No acute intra-abdominal/pelvic process. 2. Status post cystectomy with left sided ileal conduit. 3. Additional postoperative change of prior cholecystectomy, hysterectomy, infrarenal IVC filter placement, combined instrumented lumbar anterior and posterior spinal fusion and lower thoracic spinal stimulator placement. 4. Diverticulosis. 5. No interval change since 03/20/2023 and a couple cystic lesions at the tail the pancreas measuring up to 1.3 cm. Would recommend annual pre and postcontrast MRI or follow-up. Venous Doppler Study 07/26/24 15:47 IMPRESSION: 1. No deep venous thrombosis. Labs Labs: Laboratory Results - last 24 hr 07/28/24 07/29/24 13:02 06:02 WBC 5.8 RBC 3.79 L Hgb 10.6 L Hct 31.8 L MCV 83.9 MCH 28.0 MCHC 33.3 RDW 13.7 Plt Count 190 MPV 9.9 Immature Gran % (Auto) 0.7 H Neut % (Auto) 59.4 Lymph % (Auto) 26.7 Winston % (Auto) 9.4 H Eos % (Auto) 2.9 Baso % (Auto) 0.9 Lymph # (Auto) 1.54 Winston # (Auto) 0.5 Eos # (Auto) 0.2 Baso # (Auto) 0.1 Abs Immat Gran (auto) 0.04 H Absolute Neuts (auto) 3.4 Absolute Nucleated RBC 0.000 Nucleated RBC % 0.0 Sodium 130 L Potassium 4.0 Chloride 94 L Carbon Dioxide 30 Anion Gap 6 BUN 12 Creatinine 0.50 L Estim Creat Clear Calc 131 Estimated GFR > 60 Glucose 102 Calcium 8.0 L Total Bilirubin 0.5 AST 82 H ALT 45 H Alkaline Phosphatase 68 Troponin I < 0.012 Total Protein 6.0 L Albumin 3.0 L
[2024-07-29] MEDS: levoFLOXacin 750 MG TABLET PO (13:00)
[2024-07-29] MEDS: HYDROmorphone HCL INJ (*CRX) 1 MG/ML SYR 0.5 MG IV PUSH ×2 (15:22→21:20)
[2024-07-29] MEDS: ENOXAPARIN 40 MG/0.4 ML SYRINGE SUB-Q (20:03)
[2024-07-29] MEDS: CALCIUM CARBONATE (TUMS) 500 MG (200 MG ELEMENTAL) PO (20:10)
[2024-07-29] MEDS: ZOLPIDEM TARTRATE (*CRX) 5 MG TABLET PO (21:13)
[2024-07-30] VITALS (8 sets, daily range): BP systolic 101–115; BP diastolic 52–57; PULSE 63–83; RESP 18–20; TEMP 36.3–36.6; O2SAT 93–98; BMI 35.0
[2024-07-30] MEDS: HYDROcodone/acetaminophen (*CRX) 7.5-325 MG TABLET 1 TAB PO ×4 (00:05→14:35)
[2024-07-30] MEDS: HYDROmorphone HCL INJ (*CRX) 1 MG/ML SYR 0.5 MG IV PUSH (01:08)
[2024-07-30 07:42] LABS: Sodium 135 mmol/L (137-145)
[2024-07-30 08:03] LABS: Alanine Aminotransferase 45 U/L (6-35); Albumin Level 2.7 g/dL (3.5-5.1); Alkaline Phosphatase 67 U/L (38-126); Anion Gap 5 mmol/L (4-12); Aspartate Amino Transferase 59 U/L (14-36); Bilirubin,Total 0.5 mg/dL (0.2-1.3); Blood Urea Nitrogen 13 mg/dL (7-17); Calcium 8.4 mg/dL (8.4-10.2); Carbon Dioxide 34 mmol/L (22-30); Chloride 96 mmol/L (98-107); Estimated CRCL calculation 105 ml/min; Estimated Glomerular Filt Rate > 60; Glucose 98 mg/dL (65-110); Potassium 4.2 mmol/L (3.4-5.0)
[2024-07-30 08:06] LABS: Cortisol Random 1.35 ug/dL
[2024-07-30] MEDS: OLANZapine 5 MG TABLET PO (09:55)
[2024-07-30] MEDS: LOSARTAN POTASSIUM 100 MG TABLET PO (09:55)
[2024-07-30] MEDS: LINEZOLID 600 MG TABLET PO (09:56)
[2024-07-30] MEDS: METOPROLOL SUCCINATE EXT REL 12.5 MG TABCR PO (09:56)
[2024-07-30] MEDS: GABAPENTIN 300 MG CAPSULE 900 MG PO ×3 (09:56→16:35)
[2024-07-30] MEDS: FUROSEMIDE 20 MG TABLET PO (09:56)
[2024-07-30] MEDS: ATORVASTATIN 10 MG TABLET PO (09:56)
[2024-07-30] MEDS: DICLOFENAC SODIUM 1% 100 GM GEL (*BKC) 1 APPLIC TOPICAL ×2 (09:57→12:25)
[2024-07-30] MEDS: ENOXAPARIN 40 MG/0.4 ML SYRINGE SUB-Q (09:57)
[2024-07-30] MEDS: rOPINIRole HCL 0.5 MG TABLET PO (09:57)
[2024-07-30] MEDS: ASPIRIN 81 MG ENTERIC TABLET PO (09:57)
[2024-07-30 10:00] LABS: Free T4 Free Thyroxine Reflex 0.75 ng/dL (0.78-2.19)
--- NOTE | 2024-07-30 10:30 | EST_ITS ---
Patient Info Name: Angelina Mcnulty Age: 58 years : 1965 Gender: Female Ht: 68 in Wt: 230 lbs BSA: 2.28 m2 HR: 63 bpm BP: 103 / 66 mmHg Exam Date: 07/30/2024 11:13 AM Exam Location: Echo Lab Patient Status: Inpatient Admit Date: 07/22/2024 Staff Ordering Physician: Anam Ibarra MD Attending Provider: Allison Sandoval APRN Exercise Technologist: Zoe De La Torre DAVON Exercise Physician: Arjun Handley DO Exam Type: CA stress raine w NM Study Info A regadenoson stress test was performed. Summary 1. 1. Negative lexiscan stress test for ischemic ST changes by ECG criteria. 2. 2. Stable hemodynamics throughout the test. 3. 3. Nuclear scan to follow and will be reported separately. Please correlate with it. 4. 4. Patient informed of the above results. Protocol: Lexiscan Stress ECG Details Stage: REST Duration (min): 9 min : 15 sec HR (bpm): 67 SBP (mmHg): 103 DBP (mmHg): 66 Stage: REST Duration (min): 27 min : 6 sec HR (bpm): 67 SBP (mmHg): 103 DBP (mmHg): 66 Stage: STAGE 1 Duration (min): 1 min : 0 sec HR (bpm): 90 SBP (mmHg): 121 DBP (mmHg): 78 Stage: RECOVERY Duration (min): 1 min : 0 sec HR (bpm): 77 SBP (mmHg): 121 DBP (mmHg): 78 Stage: RECOVERY Duration (min): 2 min : 0 sec HR (bpm): 88 SBP (mmHg): 121 DBP (mmHg): 78 Stage: RECOVERY Duration (min): 3 min : 0 sec HR (bpm): 87 SBP (mmHg): 159 DBP (mmHg): 71 Stage: RECOVERY Duration (min): 3 min : 15 sec HR (bpm): 76 SBP (mmHg): 159 DBP (mmHg): 71 Rest HR: 67 bpm Peak HR: 90 bpm Rest Sys BP: 103 mmHg Peak Sys BP: 159 mmHg Max Pred HR: 163 bpm % Max Pred HR: 55 % Target HR: 139 bpm Max RPP: 14,310 bpm*mmHg Termination Reason: Completed protocol Cardiac Symptoms: None Total Time: 1 min : 0 sec Rest Chapman BP: 66 mmHg Peak Chapman BP: 71 mmHg Total Dose: 0.4 mg Resting ECG Sinus rhythm. Stress ECG No ST changes. Arrhythmias None. Report Signatures
[2024-07-30] MEDS: BACLOFEN 10 MG TABLET 20 MG PO (12:41)
--- NOTE | 2024-07-30 16:08 | P.DS_ITS ---
DS: Admitting Diagnosis Discharge Date 07/30/24 Admitting Diagnosis Foul odor from urostomy DS: Discharge Diagnosis Discharge Diagnosis (1) Chest pain: Code(s): R07.9 - Chest pain, unspecified Status: Acute (2) Urinary tract infection: Qualifiers: Hematuria presence: without hematuria Urinary tract infection type: acute cystitis Qualified Code(s): N30.00 - Acute cystitis without hematuria Code(s): N39.0 - Urinary tract infection, site not specified Status: Acute (3) Hypertension: Qualifiers: Hypertension type: primary hypertension Qualified Code(s): I10 - Essential (primary) hypertension Code(s): I10 - Essential (primary) hypertension Status: Chronic (4) Sleep apnea: Qualifiers: Sleep apnea type: unspecified type Qualified Code(s): G47.30 - Sleep apnea, unspecified Code(s): G47.30 - Sleep apnea, unspecified Status: Acute (5) Diarrhea: Code(s): R19.7 - Diarrhea, unspecified Status: Acute DS: Summary Hospital Course Reason for hospitalization: 58yo female with YAJAIRA on CPAP, stroke, paraplegia, HTN and cystectomy with ileal conduit here for foul odor from urostomy. Please see H&P for details. Hospital Course: Patient presented with odor from urostomy and inflamed urostomy stoma. Patient reported symptoms started about 3 weeks ago but significantly worsened over the past 4 days prior to admission. Urine was cloudy. CT abdomen/pelvis showing left-sided ileal conduit with fat stranding and trace fluid in the stoma, consistent with inflammation versus scarring. UA concerning for UTI although from a urostomy. Meropenem started after noting prior resistant patterns. UCx growing Citrobacter freundii that was relatively ware-sensitive. Abx switched to levofloxacin to complete a 7 days course. Wound Culture from the stoma with Enterococcus faecium resistant to ampicillin and vancomycin but sensitive to linezolid. Previous provider discussed risk with linezolid and patient was agreeable. Her Lexapro was held. Blood Cultures negative. Abd pain worsened so repeat CT Abd/pelvis performed but this showed no acute findings. She was treated symptomatically with analgesics, antipyretics and anti spasmodic to help with the pain. Patient with acute onset of chest pain described as pressure occurring mostly at night. No EKG at the time but EKG the next day showing normal sinus rhythm with first degree AV block, low voltage and nonspecific ST and T wave changes. No change except for the first degree AVB (although this has been noted in older EKGs so felt this is more intermittent and chronic). Troponin was negative. Echo 07/24/2024 with EF 60-65%, mildly increased left ventricular wall thickness, normal diastolic function and mild pulmonic regurgitation. Suspect either acid reflux vs anxiety (she is off her lexapro now) vs cardiac chest pain. She states her PCP was going to order lexiscan stress and there is a note 06/09/24 showing this was ordered for chest pain. We continued ASA, Lipitor and Metoprolol. She had a negative Lexiscan stress test for ischemic ST changes by ECG criteria. She had stable hemodynamics throughout the test. Nuclear images showed no definitive ischemia or infarct. No segmental wall motion abnormalities. Normal LVEF of greater than 70%. Patient was having diarrhea. C-diff negative; stool cultures negative. Diarrhea resolved. Hx of CHF listed but patient denies this. Echo as above. Lower extremity edema noted but not felt to be related to CHF. Venous duplex negative. Lasix once given 07/[address] scan showing cystic lesions of the pancreas measuring up to 12 mm, stable from 03/20/2023. The differential diagnosis includes pseudocyst, intraductal papillary mucinous neoplasm (IPMN), mucinous cystic neoplasm (MCN), serous cystadenoma, and neuroendocrine tumor. Consider abdomen MRI without and with contrast in one year. Discussed with patient. She has a spinal stimulator so will need MRI at facility that can manage this. She has chronic back pain with implanted spine stimulator in place. CT scan showing L1-L5 laminectomies with L1-S1 posterior spinal fusion with bilateral vertical nati and screw fixation at L1-L3. There are also L1-L5 anterior spinal fusion with interbody bone graft cages at each level. Bilateral spinal stimulator leads terminating in the posterior aspect of the central canal to lower thoracic spine. She did develop left heel blister felt related to her rubbing her heels on the bed. This was covered with dressings. She had a drop in her sodium to 130 TSH slightly elevated at 6.5 but FT4 normal. Cortisol level was low at 1.35 but felt more likely related to narcotics. She was not hypotensive and repeat sodium was 135. She overall did well and was able to be discharged home on 07/30/24. Status at Discharge Cognitive/behavioral status at discharge: stable Time Spent with Patient Time attestation: Total time spent providing and/or coordinating discharge services: 35 minutes Time spent: Greater than 30 minutes Exam Narrative: AF 97.9 115/52 78 18 93% ra Gen - NARD Chest - CTA bilaterally, nml RR CV - RRR S1/S2. tele showing no significant dysrhythmias Abd - Soft, stoma in the left lower quadrant with pain around the bag but better today. Clear urine in the bag. +BS. Ext - trace pedal edema. Neuro - Alert and oriented. paraplegic. Psych - anxious mood Skin - Warm and dry. intact bullae with serous fluid left heel without surrounding erythema. DS: Data Data Completed and Pending Labs on day of discharge: Labs from last 24 hours 07/30/24 07:08 Sodium 135 L Potassium 4.2 Chloride 96 L Carbon Dioxide 34 H Anion Gap 5 BUN 13 Creatinine 0.64 L Estim Creat Clear Calc 105 Estimated GFR > 60 Glucose 98 Calcium 8.4 Total Bilirubin 0.5 AST 59 H ALT 45 H Alkaline Phosphatase 67 Total Protein 5.0 L Albumin 2.7 L TSH (Reflex) 6.490 H Free T4 0.75 L Random Cortisol 1.35 Discharge Plan Discharge Attending physician on discharge: Anam Ibarra Discharging Clinician: Anam Ibarra Anticipated Discharge Date/Time: 07/30/24 16:22 Patient Disposition: Home, Self-Care Activity: as tolerated Diet: heart healthy Discharge Instructions: Please complete your antibiotic course even if you are starting to feel well. Take precautions to avoid falls. Routine urostomy care. Continue dressing changes to the left heel. Continue CPAP use at night and with naps Contact your doctor or call 911 and come to the Emergency Room if you have any type of trauma, lightheadedness with standing or other worrisome symptoms. Avoid NSAIDs (ibuprofen, naproxen, Aleve). Tylenol is safe to take. Follow-up with your primary care provider in 1-2 weeks. Please call for appointment. -- Talk with your doctor about having yearly MRI or CT scans of your pancreas as we talked about. Thank you for using [facility] for your health care needs. Patient Instructions: Antibiotic Form Patient Language: Sinhala Stand Alone Forms: General Discharge Information Follow-up/Referrals: Panchito Walters DO [Primary Care Provider] - 1 Week Discharge Medications: New linezolid 600 mg Tablet 600 mg PO Q12HR Qty: 8 0RF Continued polyethylene glycol 3350 [Miralax] 17 gram Powder In Packet 17 g PO DAILY PRN (Reason: constipation) sennosides-docusate sodium [Senokot-S] 8.6-50 mg Tablet 1 tab-cap PO BID PRN (Reason: constipation) diclofenac sodium [Voltaren Arthritis Pain] 1 % gel 2 g topical QID Qty: 100 1RF Rx Instructions: apply to single elbow, wrist or hand; for hand includes palm/fingers/back of hand alprazolam 0.25 mg tablet 0.25 mg PO TID PRN (Reason: anxiety) Qty: 60 0RF olanzapine 5 mg tablet 5 mg PO DAILY Qty: 30 0RF zolpidem [Ambien] 5 mg tablet 5 mg PO QHS Qty: 30 0RF losartan 100 mg tablet 100 mg PO DAILY Qty: 90 1RF metoprolol succinate 25 mg tablet extended release 24 hr 12.5 mg PO DAILY Qty: 45 1RF atorvastatin 10 mg tablet 10 mg PO DAILY Qty: 90 1RF gabapentin 300 mg capsule 900 mg PO TID Qty: 270 2RF furosemide 20 mg tablet 20 mg PO QAM Qty: 90 2RF aspirin [Adult Low Dose Aspirin] 81 mg tablet,delayed release (DR/EC) 81 mg PO DAILY Qty: 90 2RF ondansetron 4 mg tablet,disintegrating 4 mg PO Q8H PRN (Reason: nausea and vomiting) Qty: 20 0RF ropinirole 0.5 mg tablet 0.5 mg PO BID Qty: 180 2RF hydrocodone-acetaminophen 5-325 mg tablet 1 tablet PO Q8H PRN (Reason: pain) Qty: 30 0RF baclofen 20 mg tablet 20 mg PO TID PRN (Reason: muscle spasm) Qty: 90 0RF Held escitalopram oxalate 20 mg tablet 20 mg PO DAILY Qty: 90 1RF Hold Instructions: HOLD - Resume once you have finished the antibiotic. Date of admission: 07/22/24 10:31 Primary Care Provider: Panchito Walters Admitting Provider: Gerhard Carmona Attending physician on admission: Allison Sandoval Condition: Stable Hospitalist MIPS Heart Failure (Exclusion) Patient has history of Heart Transplant or Left Ventricular Assistive Device?: No IF YES, STOP HERE Heart Failure (Qualifier) Patient has current or prior documentation of LVEF less than or equal to 40%, or mod/servere depressed LVSF?: No IF NO, STOP HERE
== END 2024-07-30 17:30 | disposition home or self-care (01) | DRG 699 ==
LOC: ANHED 13:58 → ANH3MEDSUR 14:58
PROVIDERS: Internal Medicine; Student in an Organized Health Care Education/Training Program; Admitting Provider Internal Medicine; Emergency Provider Emergency Medicine; PCP Internal Medicine; Visit Provider Internal Medicine
DX: T83.518A Infection and inflammatory reaction due to other urinary catheter, initial encounter (principal); G82.20 Paraplegia, unspecified; N30.00 Acute cystitis without hematuria; Z16.21 Resistance to vancomycin; Z16.11 Resistance to penicillins; B96.89 Other specified bacterial agents as the cause of diseases classified elsewhere; B95.2 Enterococcus as the cause of diseases classified elsewhere; E78.5 Hyperlipidemia, unspecified; E66.9 Obesity, unspecified; S90.822A Blister (nonthermal), left foot, initial encounter; G47.33 Obstructive sleep apnea (adult) (pediatric); G89.29 Other chronic pain; I50.9 Heart failure, unspecified; I11.0 Hypertensive heart disease with heart failure; I44.0 Atrioventricular block, first degree; K58.9 Irritable bowel syndrome, unspecified; K21.9 Gastro-esophageal reflux disease without esophagitis; M54.9 Dorsalgia, unspecified; R19.7 Diarrhea, unspecified; Z93.6 Other artificial openings of urinary tract status; Z99.89 Dependence on other enabling machines and devices; Z86.73 Personal history of transient ischemic attack (TIA), and cerebral infarction without residual deficits; Z90.6 Acquired absence of other parts of urinary tract; Z96.82 Presence of neurostimulator; Z98.1 Arthrodesis status; Z88.0 Allergy status to penicillin; Z68.35 Body mass index [BMI] 35.0-35.9, adult; Z90.49 Acquired absence of other specified parts of digestive tract; Z86.14 Personal history of Methicillin resistant Staphylococcus aureus infection
CPT/HCPCS: 36415; 74177; 78452; 80048; 80053; 81001; 81003; 82533; 83605; 83735; 84439; 84443; 84484; 85025; 85610; 85730; 87040; 87045; 87070; 87075; 87086; 87181; 87186; 87205; 87427; 87449; 87493; 87641; 93005; 93017; 93306; 93970; 96365; 96375; 96376; 97110; 97161; 97165; 99285; A9270; A9502; G0378; J1171; J1650; J1885; J1940; J2185; J2405; J2785; J7030; Q9967

== ENCOUNTER 2024-08-02 22:15 | Observation (INO) | payer MEDICARE, SELFPAY ==
--- NOTE | ~2024-08-02 | CT_ITS ---
Clinical Indication: Chest pain, abdominal pain CT Scan of the Chest, Abdomen, and Pelvis with Contrast: Technique: Contiguous sections were acquired throughout the chest, abdomen, and pelvis after intraven ous administration of 100 cc of Omnipaque 350. Dose reduction technique was used on this scan by milo hazel automated exposure control and iterative reconstruction technique. The dose-length product (DL P) was 2862.57 mGy-cm. Comparison: 07/24/2024 Findings: There is no evidence of any significant mediastinal, hilar or axillary lymphadenopathy. The mediastin al soft tissues appear normal. No pulmonary embolus. No aortic aneurysm or dissection. There is no evidence of pleural or pericardial effusion. The lungs are clear, aside from large calcified left lower lobe granuloma. The liver, adrenals and kidneys are within normal limits. Cholecystectomy clips are present. Stable s mall cystic lesion at the pancreatic tail. Spleen is borderline enlarged, measuring 14 cm. No evidenc e of aortic aneurysm. No lymphadenopathy. IVC filter present. No bowel obstruction or bowel wall thickening. There is no evidence to suggest acute appendicitis. Status post cystectomy with ileal conduit. No pelvic mass evident. No ascites. Status post hysterecto my. Extensive lumbar fusion present. Impression: No acute abnormality. No pulmonary embolus. Borderline splenomegaly. Stable small cystic lesion at the pancreatic tail. Stable postoperative changes, as above. Reviewed, dictated and finalized at location . LOGY TEACHER Impression: No acute abnormality. No pulmonary embolus. Borderline splenomegaly. Stable small cystic lesion at the pancreatic tail. Stable postoperative changes, as above.
--- NOTE | ~2024-08-02 | US_ITS ---
EXAMINATION: US venous doppler [facility] DATE: 08/03/2024 17:01 INDICATION: Lower limb pain TECHNIQUE: Grayscale ultrasound images without and with compression and Doppler ultrasound images of the bilateral lower extremity veins were obtained. COMPARISON: None. FINDINGS: The visualized portions of right common femoral vein, profunda (deep) femoral vein, femoral vein, pop liteal vein, posterior tibial veins, gastrocnemius vein and proximal to mid greater saphenous vein ar e patent. The visualized portions of left common femoral vein, profunda (deep) femoral vein, femoral vein, popl iteal vein, posterior tibial veins, gastrocnemius vein and proximal to mid greater saphenous vein are patent. IMPRESSION: 1. No deep venous thrombosis in either lower limb. Reviewed, dictated and finalized at location A. D TEACHER
--- NOTE | ~2024-08-02 | XR_ITS ---
Clinical Indication: Chest pain AP and lateral views of the chest: Comparison: 04/18/2024 Findings: Stable calcified left basilar granuloma. The lungs are otherwise clear, without evidence of focal consolidation or pleural effusion. Cardiomediastinal silhouette is within normal limits. Stab le cervical spine fixation hardware and intrathecal neurostimulator.. Impression: No acute abnormality. Reviewed, dictated and finalized at location . AL SCHEDULING COORDINATOR Impression: No acute abnormality.
--- NOTE | ~2024-08-02 | XR_ITS ---
EXAMINATION: XR foot LT min 3V DATE: 08/04/2024 09:57 INDICATION: Left foot cellulitis. TECHNIQUE: 4 views of left foot were obtained. COMPARISON: None. FINDINGS: Alignment is normal. No fracture. There is diffuse osteopenia. Joint spaces are normal. IMPRESSION: 1. No evidence of osteomyelitis. Reviewed, dictated and finalized at location A. BOSS
--- OUTSIDE RECORDS SUMMARY | 2024-08-02 22:18 | XMS_ITS | Encounter Summary ---
Author Organization [facility] Address [address] [place] [address] Care Team Providers Care Supervisor Irrigation Name Role Phone Fiordaliza Snell MD Primary Care Provider Encounter Details Date Type Department Care Team (Late st Contact Info) Description 05/06/2001 Outpatient Historical [facility] Pratik Fisher MD [address] [place] [address] [place], Authorized P NO ADDRESS ON FILE ABDOMINAL PAIN OTHER SPEC SITE (Primary Dx) Social History Tobacco Use Types Packs/Day Years Used Date Smoking Tobacco: Never Assessed Comments Unknown Sex and Gender Information Value Date Recorded Sex Assigned at Not on file Legal Sex Female 2:43 AM [employer] Gender Identity Not on file Sexual Orientation Not on file documented as of this encounter Plan of Treatment Not on file documented as of this encounter Visit Diagnoses Diagnosis Abdominal pain, other specified site- Primary documented in this encounter Additional Health Concerns Infection Onset Date Last Indicated Resolved Time R/O COVID-19 07/02/2020 07/02/2020 07/02/2020 8:53 PM [employer] MRSA Comment:Resolved per Type and Duration of Precautions Recommended for Selected Infections and Conditions document 2023 update 07/02/2020 07/02/2020 03/16/20 10:58 AM CDT R/O COVID-19 07/10/2020 07/10/2020 07/10/2020 5:01 PM [employer] documented as of this encounter Care Teams Supervisor Irrigation Relationship Specialty Start Date End Date Fiordaliza Snell MD PCP - General Family Practice 09/09/22 documented as of this encounter
--- OUTSIDE RECORDS SUMMARY | 2024-08-02 22:18 | XMS_ITS | Encounter Summary ---
Author Organization [facility] Address [address] [place] [address] Care Team Providers Care Sander Hand Name Role Phone Fiordaliza Snell MD Primary [...] on file Legal Sex Female 2:43 AM MECHANICAL MAINTENANCE INSTRUCTOR Gender Identity Not on file Sexual Orientation Not on file documented as of this encounter Plan of Treatment Not on file documented as of this encounter Visit Diagnoses Diagnosis Chronic salpingitis and oophoritis- Primary documented in this encounter Additional Health Concerns Infection Onset Date Last Indicated Resolved Time R/O COVID-19 07/02/2020 07/02/2020 07/02/2020 8:53 PM MECHANICAL MAINTENANCE INSTRUCTOR MRSA Comment:Resolved per Type and Duration of Precautions Recommended for Selected Infections and Conditions document 2023 update 07/02/2020 07/02/2020 03/16/20 24 10:58 AM CDT R/O COVID-19 07/10/2020 07/10/2020 07/10/2020 5:01 PM MECHANICAL MAINTENANCE INSTRUCTOR documented as of this encounter Care Teams Sander Hand Relationship Specialty Start Date End Date Fiordaliza Snell MD PCP - General Family Practice 09/09/22 documented as of this encounter
--- OUTSIDE RECORDS SUMMARY | 2024-08-02 22:18 | XMS_ITS | Referral Summary ---
Author Organization [facility] Address [address] [facility] [place] [address] Care Team Providers Care Parliamentary Librarian Name Role Phone Lidia Barajas MD Unavailable Shilpa Gandhi MD Unavailable [phone] Iron Galindo PA-C Primary Care Provide r Cresencio Ghosh MD Unavailable Source Comments [facility],non-owned Affiliates and Associated Physician Practices is amultiple site organization consisting of ambulatory clinics and hospital sitesin [place], [place], [place] and [place]. This disclosure is being madepursuant to the Care Everywhere program and may not contain all information available regarding this patient. Last updated 18.[facility] Encounters Date Type Department Care Team Description 07/28/2024 Refill [facility] - Pulmonology [address], [address] [place] [address] Cresencio Ghosh MD Refill Request 07/03/2024 Refill [facility] - Pulmonology [address], [address] [place] [address] Cresencio Ghosh MD Refill Request from Last [...] (spasms) 90 tablet 2 09/18/2022 Active Nystop 795444 UNIT/GM powder Apply to affected area 2 [...] (RLS) Take 1 (one) tablet by mouth as directed TAKE ONE TAB AT SUPPER AND ONE TABLETS AT BEDTIME FOR RESTLESS LEG SYNDROME 180 tablet 07/28/2024 Active rOPINIRole (Requip) 1 MG tabletIndicatio ns:Restless legs syndrome (RLS) Take 1 (one) tablet by mouth 2 times daily TAKE ONE TAB AT SUPPER AND ONE TABLETS AT BEDTIME FOR RESTLESS LEG SYNDROME 180 tablet 1 03/16/2024 07/07/19 25 Discontinued rOPINIRole (Requip) 1 MG tabletIndicatio ns:Restless legs syndrome (RLS) TAKE 1 (ONE) TABLET BY MOUTH 2 TIMES DAILY TAKE ONE TAB AT SUPPER AND ONE TABLETS AT BEDTIME FOR RESTLESS LEG SYNDROME 180 tablet 07/07/2024 07/28/19 25 Discontinued Active Problems Problem Noted Date [...] Administration Dates Next Due INFLUENZA VACCINE 05/15/2022,05/06/2018,04/30/20 INFLUENZA VACCINE, QUADR. (F LUZONE; FLULAVAL; FLUARIX; [...] care, and heating? Not very hard 04/02/2023 [facility] Occupat ional [facility] - Occupational Stress [...] place to sleep or slept in a long-term (including now)? No 04/02/2023 Sex and Gender Information Value Date Recorded Sex Assigned at Not on file Gender Identity Not on file Sexual Orientation Not on file Last Filed Vital Signs Vital Sign Reading Time Taken Comments Blood Pressure 157/91 05/07/2023 9:23 AM CLAIMS CLERK Pulse 86 05/07/2023 9:23 AM CLAIMS CLERK Temperature 36.3 ??C (97.3 ??F) 05/07/2023 9:23 AM CS T Respiratory Rate 18 04/02/2023 3:00 PM CDT Oxygen Saturation 95% 05/07/2023 9:23 AM CLAIMS CLERK Inhaled Oxygen Concentration 97% 02/21/2021 1 0:15 [...] st Contact Info) Description 08/23/2024 2:30 PM CLAIMS CLERK Appointment [facility] MRI [address] [place] [address] Panchito Walters, [address] [place] [address] 09/14/2024 10:00 AM CDT Video Visit [facility] - Pulmonology [address], [address] [place] [address] Cresencio Ghosh MD [address] [place] [address] Goals Goal Patient Goal Type Associated Problems Recent Progress Patient-Stated? Author Blood Pressure < 140/90 Blood Pressure 157/91(2022 9:23 AM CLAIMS CLERK) No Sierra Steiner Yearly PCP visit Lifestyle No White, Ava A Have labs drawn Lifestyle No White, Ava A Take recommended medication(s) Lifestyle No White, Ava A Use safety retraint in car Lifestyle No White, Ava A Complete Health Maintenance Screenings Lifestyle No White, Ava A Medical Devices Implanted Type Area Biscuitware Brusher Device Identifier Shelf Expiration Date Model / Serial / Lot Floseal Hemostatic Matrix Implanted:Qty: 1 on 04/02/2019 by Maicol Mcneil DO at [facility] N/A: Spine [employer] 08/10/2020 [id number] / / [id number] Graft Tissue Drgn + Bvn Clgn Mtrx 1x1in Implanted:Qty: 1 on 04/02/2019 by Maicol Mcneil DO at [facility] N/A: Spine [employer] 04/29/2021 [id number] / / [id number] Seal Tisseel Prima 1 Prefil Frz 4ml - [id number] Implanted:Qty: 1 on 04/02/2019 by Maicol Mcneil DO at [facility] N/A: Spine [employer] 08/27/2020 [id number] / [id number] / [id number] Impl Inj 1ml Coaptite Syr Bulk Agnt Implanted:Qty: 2 on 04/11/2020 by Dave Aparicio MD at [facility] N/A: Bladder [employer] 10/25/2022 [id number] / / [id number] Impl Inj 1ml Coaptite Syr Bulk Agnt Implanted:Qty: 2 on 02/05/2022 by Dave Aparicio MD at [facility] Bladder [employer] 10/16/2024 [id number] / / [id number] Stent Uret 7fr 80cm Str Cls Tip Llok Implanted:Qty: 1 on 09/03/2022 by Nel Cerna DO at [facility] Ureter [employer] 12/23/2025 [id number] / / [id number] Description:bilateral ureter s Procedures Procedure Name Priority [...] 7 - 26 mg/dL 04/02/2023 3:07 AM [facility] Creatinine 0.69 0.56 - 0.96 mg/dL 04/02/2023 3:07 AM [facility] Sodium 133(L) 136 - 145 mmol/L 04/02/2023 3:07 AM [facility] Potassium 3.9 3.5 - 4.5 mmol/L 04/02/2023 3:07 AM [facility] Chloride 102 98 - 107 mmol/L 04/02/2023 3:07 AM [facility] CO2 26 22 - 29 mmol/L 04/02/2023 3:07 AM [facility] Glucose 122(H) 70 - 115 mg/dL 04/02/2023 3:07 AM [facility] Calcium 8.3(L) 8.4 - 10.2 mg/dL 04/02/2023 3:07 AM [facility] Anion Gap 5(L) 6 - 16 04/02/2023 3:07 AM [facility] BUN/Creatinine Ratio 23 7 - 23 04/02/2023 3:07 AM [facility] Osmolality Calculated 278 275 - 295 mOsm/kg 04/02/2023 3:07 AM CDT [facility] eGFR by CKD-EPI >90 >=90 mL/min/1.7 3 m2 04/02/2023 3:07 AM CDT [facility] Blood BLOOD SPECIMEN / Unknown Lab Venipuncture / Unknown 04/02/2023 2:31 AM CDT 04/02/2023 2:39 AM CDT Missy Sutherland MD LAB - CHEMISTRY [facility] [address] [place] [address], [facility] [phone] * ENDOSCOPY, COLON, SCREENING (11/29/2019) Provider Unknown [...] participate in the care of your patient. [facility] Breast Care utilizes Sensory Networks as a reminder system to notify patients of their next recommended mammogram. Narrative 09/23/2017 9:22 AM CDT EXAMINATION: Digital screening mammogram on 09/18/2017. Low-dose full-field digital breast tomosynthesis examination was performed with synthetic 2D images and 3D acquisitions. Computer assisted detection was utilized. PRIOR: Mammogram from [facility] on 11/13/2004. BREAST PARENCHYMAL DENSITY: The breasts are almost entirely fatty. RISK ASSESSMENT CALCULATION: Based on the information provided by your patient, her lifetime risk of breast cancer is average (<15%). Additional quantitative risk model data and patient history details have been scanned as a document/letter in [facility] electronic medical record (media tab). Please note this information is only as accurate as the data entered by the patient. FINDINGS: No suspicious masses, areas of architectural distortion or microcalcifications are evident on synthetic 2D mammogram or tomosynthesis images. ??Postsurgical changes are seen in both breasts. Shilpa Parth Frazier DO MAMMO ORDERABLES from Last 3 Months or Most Recently Relevant to Health Maintenance Additional Health Concerns Infection Onset Date Last Indicated MRSA Hx 09/04/2022 09/04/2022 MDRO Hx 04/01/2023 04/01/2023 MDRO 05/08/2023 05/08/2023 Advance Directives Documents on File Type Date Recorded Patient Animal Chiropractor Expl anation Adv Directive/Living Will/POA 09/16/2022 3:23 [...] 4:01 AM 05/11/2020 8:00 PM Care Teams Parliamentary Librarian Relationship Specialty Start Date End Date Iron Galindo PA-C [address] [place], [place] [id number] PCP - General Physician Radiological Technologist 02/12/23 Cresencio Ghosh MD [address] [facility] [address] [place] [id number] PCP - [facility] P4 12/29/23 Lidia Barajas MD [address], [address] Anesthesiology-Pain Management 06/03/19 Shilpa Gandhi MD [address] [place] [address] Oncology 06/03/19
--- OUTSIDE RECORDS SUMMARY | 2024-08-02 22:18 | XMS_ITS | Clinical Summary ---
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
--- OUTSIDE RECORDS SUMMARY | 2024-08-02 22:18 | XMS_ITS | Encounter Summary ---
Author Organization [facility] Address [address] [place] [address] Care Team Providers Care Top Frame Maker Name Role Phone Fiordaliza Snell MD Primary Care Provider Encounter Details Date Type Department Care Team (Late st Contact Info) Description 10/10/2003 Outpatient Historical [facility] Franki Grimes, DO [address] [place] [address] Er, Authorized P NO ADDRESS ON FILE LUMBAGO (Primary Dx) Social History Tobacco Use Types Packs/Day Years Used Date Smoking Tobacco: Never Assessed Comments Unknown Sex and Gender Information Value Date Recorded Sex Assigned at Not on file Legal Sex Female 2:43 AM CHILD SUPPORT AGENT Gender Identity Not on file Sexual Orientation Not on file documented as of this encounter Plan of Treatment Not on file documented as of this encounter Visit Diagnoses Diagnosis Lumbago- Primary documented in this encounter Additional Health Concerns Infection Onset Date Last Indicated Resolved Time R/O COVID-19 07/02/2020 07/02/2020 07/02/2020 8:53 PM CHILD SUPPORT AGENT MRSA Comment:Resolved per Type and Duration of Precautions Recommended for Selected Infections and Conditions document 2023 update 07/02/2020 07/02/2020 03/16/20 24 10:58 AM CDT R/O COVID-19 07/10/2020 07/10/2020 07/10/2020 5:01 PM CHILD SUPPORT AGENT documented as of this encounter Care Teams Top Frame Maker Relationship Specialty Start Date End Date Fiordaliza Snell MD PCP - General Family Practice 09/09/22 documented as of this encounter
--- OUTSIDE RECORDS SUMMARY | 2024-08-02 22:18 | XMS_ITS | Encounter Summary ---
Author Organization [facility] Address [address] [place] [address] Care Team Providers Care Fruit I Farmworker Name Role Phone Fiordaliza Snell MD Primary [...] on file Legal Sex Female 2:43 AM FORCE VARIATION EQUIPMENT TENDER Gender Identity Not on file Sexual Orientation [...] fL INTERFACE SYSTEM 10/14/2004 6:07 AM CDT [employer] HEMATOLOGY ORDERABLES Final Resu lt Performing Organization Address [facility] Phone Number INTERFACE SYSTEM Refer to clinic/hospital department * (ABNORMAL) BASIC METABOLIC PANEL (10/14/2004 6:07 AM CDT) Pathologist [facility] GLUCOSE 90 65 - 109 mg/dL [...] mmol/L INTERFACE SYSTEM 10/14/2004 6:07 AM CDT [employer] CHEMISTRY ORDERABLES Final Resul t Performing Organization Address [facility] Phone Number INTERFACE SYSTEM Refer to clinic/hospital department * (ABNORMAL) AMYLASE (10/13/2004 9:56 AM CDT) AMYLASE 24(L) 28 - 100 U/L INTERFACE SYSTEM 10/13/2004 9:56 AM CDT Russell Marie CHEMISTRY ORDERABLES Final Resul t Performing Organization Address [facility] Phone Number INTERFACE SYSTEM Refer to clinic/hospital department * LIPASE (10/13/2004 9:56 AM CDT) LIPASE 20 13 - 60 U/L INTERFAC E SYSTEM 10/13/2004 9:56 AM CDT Russell Marie CHEMISTRY ORDERABLES Final Resul t Performing Organization Address [facility] Phone Number INTERFACE SYSTEM Refer to [...] ORDERABLES Final Resu lt Performing Organization Address City/[facility] de Phone Number INTERFACE SYSTEM Refer to [...] ORDERABLES Final Resu lt Performing Organization Address [facility] Phone Number INTERFACE SYSTEM Refer to clinic/hospital department * (ABNORMAL) C-REACTIVE PROTEIN (10/13/2004 5:00 AM CDT) CRP 1.3(H) 0.0 - 0.8 mg/dL INTERFACE SYSTEM 10/13/2004 5:00 AM CDT Russell Marie CHEMISTRY ORDERABLES Final Resul t Performing Organization Address [facility] Phone Number INTERFACE SYSTEM Refer to [...] URINE ORDERABLES Final Result Performing Organization Address [facility] Co [place] Phone Number INTERFACE SYSTEM Refer to clinic/hospital [...] ORDERABLES Final Resu lt Performing Organization Address City/[facility] de Phone Number INTERFACE SYSTEM Refer to [...] ORDERABLES Final Resul t Performing Organization Address [facility] Phone Number INTERFACE SYSTEM Refer to clinic/hospital department * AMYLASE (10/12/2004 9:17 PM CDT) AMYLASE 39 28 - 100 U/L INTERFACE SYSTEM Comment:Previous specimen us ed; approved by floor. 10/12/2004 9:[address] MD CHEMISTRY ORDERABLES Final Resul t Performing Organization Address [facility] Phone Number INTERFACE SYSTEM Refer to [...] ORDERABLES Final Resu lt Performing Organization Address City/[facility] Co de [...] ORDERABLES Final Resu lt Performing Organization Address City/[facility]/ZIP Co de Phone Number INTERFACE SYSTEM Refer [...] Time R/O COVID-07/02/2020 07/02/2020 07/02/2020 8:53 PM FORCE VARIATION EQUIPMENT TENDER MRSA Comment:Resolved per Type and Duration of Precautions Recommended for Selected Infections and Conditions document 2023 update 07/02/2020 07/02/2020 03/16/20 10:58 AM CDT R/O COVID-07/10/2020 07/10/2020 07/10/2020 5:01 PM FORCE VARIATION EQUIPMENT TENDER documented as of this encounter Care Teams Fruit I Farmworker Relationship Specialty Start Date End Date Fiordaliza Snell MD PCP - General Family Practice 09/09/22 documented as of this encounter
--- OUTSIDE RECORDS SUMMARY | 2024-08-02 22:18 | XMS_ITS | Encounter Summary ---
Author Organization [facility] Address [address] [place] [address] Care Team Providers Care Echocardiography Technologist Name Role Phone Fiordaliza Snell MD Primary Care Provider Encounter Details Date Type Department Care Team (Latest Contact Info) Description 11/13/2004 Outpatient Historical [facility] RONALD Garcia, Anjali Gupta MD NO ADDRESS ON FILE LUMP OR MASS IN BREAST (Primary Dx) Social History Tobacco Use Types Packs/Day Years Used Date Smoking Tobacco: Never Assessed Comments Unknown Sex and Gender Information Value Date Recorded Sex Assigned at Not on file Legal Sex Female 2:43 AM GENETIC PHYSICIAN Gender Identity Not on file Sexual Orientation Not on file documented as of this encounter Plan of Treatment Not on file documented as of this encounter Visit Diagnoses Diagnosis Lump or mass in breast- Primary documented in this encounter Additional Health Concerns Infection Onset Date Last Indicated Resolved Time R/O COVID-19 07/02/2020 07/02/2020 07/02/2020 8:53 PM GENETIC PHYSICIAN MRSA Comment:Resolved per Type and Duration of Precautions Recommended for Selected Infections and Conditions document 2023 update 07/02/2020 07/02/2020 03/16/20 24 10:58 AM CDT R/O COVID-19 07/10/2020 07/10/2020 07/10/2020 5:01 PM GENETIC PHYSICIAN documented as of this encounter Care Teams Echocardiography Technologist Relationship Specialty Start Date End Date Fiordaliza Snell MD PCP - General Family Practice 09/09/22 documented as of this encounter
--- OUTSIDE RECORDS SUMMARY | 2024-08-02 22:18 | XMS_ITS | Encounter Summary ---
Author Organization [facility] Address [address] [place] [address] Care Team Providers Care Cigarette Inspector Name Role Phone Unknown, Notinfile Primary Care Provider Unavail able hSilpa Frazier DO Primary Care Provider Lidia Barajas MD Unavailable Ab Melara MD Primary Care Provid er Encounter Details Date Type Department Care Team (Late st Contact Info) Description 04/07/2018 Telephone [facility] [address] [place] [address] Kate Johnson, RT Social History Tobacco Use Types Packs/Day Years Used Date Smoking Tobacco: Never Smokeless Tobacco: Never Alcohol Use Standard Drinks/Week Comments No 0 (1 standard drink = 0.6 oz pur e alcohol) Comments No Sex and Gender Information Value Date Recorded Sex Assigned at Not on file Legal Sex Female 11:49 PM TREATING PLANT OPERATOR Gender Identity Not on file Sexual [...] DT MRSA 12/27/2021 03/06/2022 09/02/2022 3:05 AM TREATING PLANT OPERATOR documented as of this encounter Care Teams Cigarette Inspector Relationship Specialty Start Date End Date Unknown, Notinfile PCP - General 08/28/17 06/11/18 Shilpa Frazier DO PCP - General 06/12/18 07/15/21 Ab Melara MD [address] [address] PCP - General Family Medicine 07/16/21 Lidia Barajas MD Anesthesiologist Anesthesiology 01/13/20 documented as of this encounter
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
--- OUTSIDE RECORDS SUMMARY | 2024-08-02 22:18 | XMS_ITS | Encounter Summary ---
Author Organization [facility] Address [address] [place] [address] Care Team Providers Care Manager Storage Name Role Phone Fiordaliza Snell MD Primary Care Provider Encounter Details Date Type Department Care Team (Late st Contact Info) Description 04/18/2003 Outpatient Historical [facility] Otilia Florentino MD [address], [place] [id number] [place], Authorized P NO ADDRESS ON FILE ABDOMINAL PAIN RLQ (Primary Dx) Social History Tobacco Use Types Packs/Day Years Used Date Smoking Tobacco: Never Assessed Comments Unknown Sex and Gender Information Value Date Recorded Sex Assigned at Not on file Legal Sex Female 2:43 AM VEGETABLE VENDOR Gender Identity Not on file Sexual Orientation Not on file documented as of this encounter Plan of Treatment Not on file documented as of this encounter Visit Diagnoses Diagnosis Abdominal pain, right lower quadrant- Primary documented in this encounter Additional Health Concerns Infection Onset Date Last Indicated Resolved Time R/O COVID-19 07/02/2020 07/02/2020 07/02/2020 8:53 PM VEGETABLE VENDOR MRSA Comment:Resolved per Type and Duration of Precautions Recommended for Selected Infections and Conditions document 2023 update 07/02/2020 07/02/2020 03/16/20 24 10:58 AM CDT R/O COVID-19 07/10/2020 07/10/2020 07/10/2020 5:01 PM VEGETABLE VENDOR documented as of this encounter Care Teams Manager Storage Relationship Specialty Start Date End Date Fiordaliza Snell MD PCP - General Family Practice 09/09/22 documented as of this encounter
--- OUTSIDE RECORDS SUMMARY | 2024-08-02 22:18 | XMS_ITS | Clinical Summary ---
Author Organization [facility] Address [address] [place] [address] Care Team Providers Care Data Management Associate Name Role Phone Unavailable Primary Care Provider [...] ncussion 04/17/2019 Spinal epidural hematoma 04/13/2019 Immunizations Immunization Administration Dates Next Due Influenza, Unspecified 04/12/2019(Deferr [...] Comments Blood Pressure 152/77 05/21/2019 8:00 AM PECAN PICKER Pulse 75 05/21/2019 8:00 AM PECAN PICKER Temperature 36.3 ??C (97.3 ??F) 05/21/2019 8:00 AM CS T Respiratory Rate 18 05/21/2019 8:00 AM PECAN PICKER Oxygen Saturation 98% 05/21/2019 8:00 AM PECAN PICKER Inhaled Oxygen Concentration - - Weight 108.9 kg (240 lb 1.6 oz) 05/09/2019 6:52 AM PECAN PICKER Height 172.7 cm (5' 8 ) 04/18/2019 [...]
--- OUTSIDE RECORDS SUMMARY | 2024-08-02 22:18 | XMS_ITS | Encounter Summary ---
Author Organization [facility] Address [address] [place] [address] Care Team Providers Care Overhauler Helper Name Role Phone Shilpa Frazier DO Primary Care Provider Lidia Barajas MD Unavailable Ab Melara MD Primary Care Provid er Encounter Details Date Type Department Care Team (Late st Contact Info) Description 06/15/2018 Telephone [facility] [place] [facility] [address] [place] [address] Emil Clarke, RT Social History Tobacco Use Types Packs/Day Years Used Date Smoking Tobacco: Never Smokeless Tobacco: Never Alcohol Use Standard Drinks/Week Comments No 0 (1 standard drink = 0.6 oz pur e alcohol) Comments No Sex and Gender Information Value Date Recorded Sex Assigned at Not on file Legal Sex Female 11:49 PM TIMBER ROBBER Gender Identity Not on file Sexual Orientation [...] DT MRSA 12/27/2021 03/06/2022 09/02/2022 3:05 AM TIMBER ROBBER documented as of this encounter Care Teams Overhauler Helper Relationship Specialty Start Date End Date Frazier Shilpaolimpia Law DO PCP - General 06/12/18 07/15/21 Ab Melara MD [address] [address] PCP - General Family Medicine 07/16/21 Lidia Barajas MD Anesthesiologist Anesthesiology 01/13/20 documented as of this encounter
--- OUTSIDE RECORDS SUMMARY | 2024-08-02 22:18 | XMS_ITS | Clinical Summary ---
Author Organization [facility] Address [address] [place] [address] Care Team Providers Care Airplane Flight Attendant Name Role Phone Lidia Barajas MD Unavailable Shilpa Gandhi MD Unavailable Iron Galindo PA-C Primary Care Provide r Cresencio Ghosh MD Unavailable [phone] Source Comments [facility],non-owned Affiliates and Associated Physician Practices is amultiple site organization consisting of ambulatory clinics and hospital sitesin [place], [place], [place] and [place]. This disclosure is being madepursuant to the Care Everywhere program and may not contain all information available regarding this patient. Last updated 18.[facility] Allergies Active Allergy Reactions Criticality Noted Date [...] (spasms) 90 tablet 2 09/18/2022 Active Nystop 057687 UNIT/GM powder Apply to affected area 2 [...] Type Department Care Team Description 07/28/2024 Refill [facility] - Pulmonology [address] [place] [address] Cresencio Ghosh MD Refill Request 07/03/2024 Refill [facility] - Pulmonology [address] [place] [address] Cresencio Ghosh MD Refill Request from Last [...] care, and heating? Not very hard 04/02/2023 [facility] [place] [facility] - Occupational Stress [...] Comments Blood Pressure 157/91 05/07/2023 9:23 AM JEWEL OLIVING MACHINE OPERATOR Pulse 86 05/07/2023 9:23 AM JEWEL OLIVING MACHINE OPERATOR Temperature 36.3 ??C (97.3 ??F) 05/07/2023 9:23 AM CS T Respiratory Rate 18 04/02/2023 3:00 PM CDT Oxygen Saturation 95% 05/07/2023 9:23 AM JEWEL OLIVING MACHINE OPERATOR Inhaled Oxygen Concentration 97% 02/21/2021 1 0:15 AM CDT Weight 95.3 kg (210 lb) 03/16/2024 10:50 AM CDT Height 172.7 cm (5' 8 ) 03/16/2024 10:50 AM CDT Body Mass Index 31.93 03/16/2024 10:50 AM CDT Plan of Treatment Upcoming Encounters Date Type Department Care Team (Late st Contact Info) Description 08/23/2024 2:30 PM JEWEL OLIVING MACHINE OPERATOR Appointment [facility] [address] [place] [address] Panchito Walters, DO [address] [place] [address] 09/14/2024 10:00 AM CDT Video Visit [facility] - Pulmonology [address] [place] [address] Cresencio Ghosh MD [address] [place] [address] Health Maintenance Due Date Last [...] 50+ (1 of 2 - PCV) 1984 ZOSTER [...] < 140/90 Blood Pressure 157/91(2022 9:23 AM JEWEL OLIVING MACHINE OPERATOR) No Sierra Steiner Yearly PCP visit Lifestyle No White, Ava A Have labs drawn Lifestyle No White, Ava A Take recommended medication(s) Lifestyle No White, Ava A Use safety retraint in car Lifestyle No White, Ava A Complete Health Maintenance Screenings Lifestyle No White, Ava A Medical Devices Implanted Type Area Photographic Enlarger Operator Device Identifier Shelf Expiration Date Model / Serial / Lot Floseal Hemostatic Matrix Implanted:Qty: 1 on 04/02/2019 by Maicol Mcneil DO at [facility] N/A: Spine [employer] 08/10/2020 [id number] / / [id number] Graft Tissue Drgn + Bvn Clgn Mtrx 1x1in Implanted:Qty: 1 on 04/02/2019 by Maicol Mcneil DO at [facility] N/A: Spine Integra Neuro[employer]iences 04/29/2021 [id number] / / [id number] Seal Tisseel Prima 1 Prefil Frz 4ml - [id number] Implanted:Qty: 1 on 04/02/2019 by Maicol Mcneil DO at [facility] N/A: Spine [employer] 08/27/2020 [id number] / [id number] / [id number] Impl Inj 1ml Coaptite Syr Bulk Agnt Implanted:Qty: 2 on 04/11/2020 by Dave Aparicio MD at [facility] N/A: Bladder [employer] Scimed 10/25/2022 [id number] / / [id number] Impl Inj 1ml Coaptite Syr Bulk Agnt Implanted:Qty: 2 on 02/05/2022 by Dave Aparicio MD at [facility] Bladder [employer] Scimed 10/16/2024 [id number] / / [id number] Stent Uret 7fr 80cm Str Cls Tip Llok Implanted:Qty: 1 on 09/03/2022 by Nel Cerna DO at [facility] Ureter [employer] Scimed 12/23/2025 [id number] / / [id number] Description:bilateral ureter s Procedures Procedure Name Priority [...] 7 - 26 mg/dL 04/02/2023 3:07 AM [facility] Creatinine 0.69 0.56 - 0.96 mg/dL 04/02/2023 3:07 AM [facility] Sodium 133(L) 136 - 145 mmol/L 04/02/2023 3:07 AM [facility] Potassium 3.9 3.5 - 4.5 mmol/L 04/02/2023 3:07 AM [facility] Chloride 102 98 - 107 mmol/L 04/02/2023 3:07 AM [facility] CO2 26 22 - 29 mmol/L 04/02/2023 3:07 AM [facility] Glucose 122(H) 70 - 115 mg/dL 04/02/2023 3:07 AM [facility] Calcium 8.3(L) 8.4 - 10.2 mg/dL 04/02/2023 3:07 AM [facility] Anion Gap 5(L) 6 - 16 04/02/2023 3:07 AM [facility] BUN/Creatinine Ratio 23 7 - 23 04/02/2023 3:07 AM [facility] Osmolality Calculated 278 275 - 295 mOsm/kg 04/02/2023 3:07 AM [facility] eGFR by CKD-EPI >90 >=90 mL/min/1.7 3 m2 04/02/2023 3:07 AM [facility] Blood BLOOD SPECIMEN / Unknown Lab Venipuncture / Unknown 04/02/2023 2:31 AM CDT 04/02/2023 2:39 AM CDT Missy Sutherland MD LAB - CHEMISTRY [facility] Organization Address City/State/ZIP Co de Phone Number [address] [address], [facility] [phone] * ENDOSCOPY, COLON, SCREENING (11/29/2019) Provider Unknown [...] participate in the care of your patient. [facility] Breast Care utilizes [employer] as a reminder system to notify patients of their next recommended mammogram. Narrative 09/23/2017 9:22 AM CDT EXAMINATION: Digital screening mammogram on 09/18/2017. Low-dose full-field digital breast tomosynthesis examination was performed with synthetic 2D images and 3D acquisitions. Computer assisted detection was utilized. PRIOR: Mammogram from [facility] on 11/13/2004. BREAST PARENCHYMAL DENSITY: The breasts are almost entirely fatty. RISK ASSESSMENT CALCULATION: Based on the information provided by your patient, her lifetime risk of breast cancer is average (<15%). Additional quantitative risk model data and patient history details have been scanned as a document/letter in [employer] electronic medical record (media tab). Please note [...] Documents on File Type Date Recorded Patient Thumb Sewer Expl anation Adv Directive/Living Will/POA 09/16/2022 3:23 [...] 4:01 AM 05/11/2020 8:00 PM Care Teams Airplane Flight Attendant Relationship Specialty Start Date End Date Iron Galindo PA-C [address] [place] [address] PCP - General Physician Founder And Chief Technical Officer 02/12/23 Cresencio Ghosh MD [address] [place] [address] PCP - Attributed-[facility] P4P 12/29/23 Lidia Barajas MD [address] [facility] [address], [address] Anesthesiology-Pain Management 06/03/19 Shilpa Gandhi MD [address] [place], [place] [address] [place] [address] Oncology 06/03/19
--- OUTSIDE RECORDS SUMMARY | 2024-08-02 22:18 | XMS_ITS | Encounter Summary ---
Author Organization [facility] Address [address] [place] [address] Care Team Providers Care Rust Proofer Name Role Phone Fiordaliza Snell MD Primary [...] on file Legal Sex Female 2:43 AM GEOSPATIAL IMAGE ANALYST Gender Identity Not on file Sexual Orientation Not on file documented as of this encounter Plan of Treatment Not on file documented as of this encounter Visit Diagnoses Diagnosis Other and unspecified ovarian cyst- Primary documented in this encounter Additional Health Concerns Infection Onset Date Last Indicated Resolved Time R/O COVID-19 07/02/2020 07/02/2020 07/02/2020 8:53 PM GEOSPATIAL IMAGE ANALYST MRSA Comment:Resolved per Type and Duration of Precautions Recommended for Selected Infections and Conditions document 2023 update 07/02/2020 07/02/2020 03/16/20 24 10:58 AM CDT R/O COVID-19 07/10/2020 07/10/2020 07/10/2020 5:01 PM GEOSPATIAL IMAGE ANALYST documented as of this encounter Care Teams Rust Proofer Relationship Specialty Start Date End Date Fiordaliza Snell MD PCP - General Family Practice 09/09/22 documented as of this encounter
--- OUTSIDE RECORDS SUMMARY | 2024-08-02 22:19 | XMS_ITS | Clinical Summary ---
Author Organization [facility] Address [address] [place] [address] Care Team Providers Care Door Builder Name Role Phone Lidia Barajas MD Unavailable [...] for pain 42 tablet 2 Active multivit motshiew-cgjb-OF-c alcium (THERA-M) 9 mg iron-400 mcg tabletIndications: [...] (10/24/2021): Added automatically from request for surgery [id number] Postlaminectomy syndrome, lumbar region 10/25/19 Overview (10/24/2021): Added automatically from request for surgery [id number] Assessment & Plan (07/03/2022 3:48 PM FACING SLITTER): Ms. Mcnulty is doing well following lumbar [...] (10/24/2021): Added automatically from request for surgery [id number] Other chest pain 01/19/2020 Assessment & Plan [...] ciated with catheterization of urinary tract ([facility]) 11/16/2019 Neurogenic bladder 11/16/2019 Assessment & Plan [...] for exchange this admission Suprapubic catheter ([facility]) 11/16/2019 Essential hypertension 11/16/2019 Hypertensive urgency 11/16/2019 [...] (11/25/2019): Added automatically from request for surgery [id number] Chronic lumbar radiculopathy 01/21/2019 Chronic back pain 01/21/2019 Spinal stenosis of lumbar region with radiculopa thy 12/04/2018 Assessment & Plan (07/18/2021 10:23 AM FACING SLITTER): Assessment Healed fusion L2-5 severe retrolisthesis with [...] (06/18/2018): Added automatically from request for surgery [id number] Assessment & Plan (12/04/2018 3:42 PM CDT): Healing fusion C6-7 Continued observation. Assessment & Plan (08/12/2018 10:35 AM FACING SLITTER): Assessment Healing fusion C6-7 Plan Talked about do's and don'ts she is still to maintain her initial restrictions and return in 6 weeks for an x-ray Assessment & Plan (06/25/2018 2:43 PM FACING SLITTER): Angelina was recently hospitalized at [facility] and diagnosed with a disc osteophyte [...] (06/18/2018): Added automatically from request for surgery [id number] Cervical pain (neck) 06/13/2018 Asthma 11/13/2013 Overview [...] often do you attend chur ch or mormon services? More than 4 times per year 03/07/2022 Do you belong to any clubs o r organizations such as sabianist groups, unions, fraternal or athletic groups, or [...] place to sleep or slept in a fci (including now)? No 03/07/2022 Comments No Sex and Gender Information Value Date Recorded Sex Assigned at Not on file Legal Sex Female 11:49 PM FACING SLITTER Gender Identity Not on file Sexual Orientation [...] Plan Chronic Care Management Worsening( 10:12 AM FACING SLITTER) Milvia Mireles RN Note: Problem: Chronic Pain Goals: 1. Minimize further functional decline 2. Maximize quality of life 3. Control pain Strategies: - Activity/exercise program recommendation - Conservative stepwise pain medicine strategy with multi-disciplinary approach - Recommend healthy lifestyle strategies and compensatory methods as needed Medical Devices Implanted Type Area Record Librarian Device Identifier Shelf Expiration Date Model / Serial / Lot Spinal Cord Stimulator-2016 Implanted:01/28 (Quantity not on file) Spinal Cord Stimulator Left: Hip Nevro Spinal Cord Stimulation System [id number] / / Description:Closed Bore only 1.5T or [...] ensure it has returned to pre-MRI settings. [employer] 700-025 I Factor Allograft Putty Syringe Graft 2.5cc Bone - [id number] Implanted:Qty: 1 on 07/03/2018 by Zachary Rothman MD at [facility] N/A: Spine Cervical Cer[employer]ics Inc 03/29/2021 700-025 / / [id number] Plate 1-Level 14 Mm Cervical - [id number] Implanted:Qty: 1 on 07/03/2018 by Zachary Rothman MD at [facility] N/A: Spine Cervical [employer] / / Screw 4.0x14mm Self Drilling Variable - [id number] Implanted:Qty: 4 on 07/03/2018 by Zachary Rothman MD at [facility] N/A: Spine Cervical [employer] 31-3524 / / Cage Spinal [id number] 7 Degree Porous Coated Latex Free - [id number] Implanted:Qty: 1 on 07/03/2018 by Zachary Rothman MD at [facility] N/A: Spine Cervical Spinal Elements [id number] / / Depuy Synthes Spine [id number] Substitute Bone Graft Fibergraft Gps Medium Putty 6cc - [id number] Implanted:Qty: 1 on 11/29/2021 by Dave [place] MD at [facility] N/A: Lumbar-Sa cral Spine Depuy Synthes Spine [id number] 10/18/2023 [id number] / / [id number] Bacter[employer] International Inc Osteosponge Allograft Chips Radiolucent Thk4-10mm Graft 30cc Bone [id number] - [id number] - [id number] Implanted:Qty: 1 on 11/29/2021 by Dave [place] MD at [facility] N/A: Lumbar-Sa cral Spine [employer] Inc 10/14/2024 [id number] / [id number] / Depuy Synthes Spine Cage Post Spinal 4d Plif Ti [id number] - [id number] Implanted:Qty: 1 on 11/29/2021 by Dave [place] MD at [facility] N/A: Lumbar-Sa cral Spine Depuy Synthes Spine [id number] 07/30/2024 [id number] / / [id number] Depuy Synthes Spine Expedium 5.5mm 80mm Line Prebent Rodney Spinal Titanium Nonsterile [id number] - [id number] Implanted:Qty: 1 on 11/29/2021 by Dave [place] MD at [facility] N/A: Lumbar-Sa cral Spine Depuy Synthes Spine [id number] / / Depuy Synthes Spine Expedium 5.5mm 85mm Line Prebent Rodney Spinal Titanium Nonsterile [id number] - [id number] Implanted:Qty: 1 on 11/29/2021 by Dave [place] MD at [facility] N/A: Lumbar-Sa cral Spine Depuy Synthes Spine [id number] / / Depuy Synthes Spine Expedium 5.5mm 45mm Polyaxial Spine Screw Bone Titanium 5.5mm Rodney [id number] - [id number] Implanted:Qty: 2 on 11/29/2021 by Dave [place] MD at [facility] N/A: Lumbar-Sa cral Spine Depuy Synthes Spine [id number] / / Depuy Synthes Spine Expedium 6.5mm 45mm Polyaxial Spine Screw Bone Titanium 5.5mm Rodney [id number] - [id number] Implanted:Qty: 3 on 11/29/2021 by Dave Louis MD at [facility] N/A: Lumbar-Sa cral Spine Depuy Synthes Spine [id number] / / Depuy Synthes Spine Expedium 1 Inner Monoaxial Spine Screw Set Titanium [id number] - [id number] Implanted:Qty: 6 on 11/29/2021 by Dave Louis MD at [facility] N/A: Lumbar-Sa cral Spine Depuy Synthes Spine [id number] / / Depuy Synthes Spine Expedium 7mm 45mm 1 Innie Polyaxial Spine Screw Bone Titanium [id number] - [id number] Implanted:Qty: 1 on 11/29/2021 by Dave Louis MD at [facility] N/A: Lumbar-Sa cral Spine Depuy Synthes Spine [id number] / / Procedures Procedure Name Priority Date/Time [...] 11/29/2019 8:04 AM Admit Type: Inpatient Room: [facility] 4 Date of : 1965 Instrument [...] Providers: Denys Calderon M.D. Referring MD: Shilpa Arzate DO Medicines: Propofol per Anesthesia Complications: No immediate [...] the bowel preparation was evaluated usingthe BBPS ([place] Bowel Preparation Scale) with scores of: Right [...] AM CDT) Hep A IgM Nonreactive Nonreactive [facility] Comment: Interpretive Data: If Hep A IgM Ab is reported as Equivocal, a new sample should be drawn in two weeks for testing. Current interpretive data was last revised on 19. Hep B core IgM Nonreactive Nonreactive [facility] Comment: Interpretive Data If HepB Core IgM Ab is reported as Equivocal, a new sample should be drawn in two weeks for testing. Current interpretive data was last revised on 19. Hep C Ab Nonreactive Nonreactive [facility] Comment: Interpretive Data Nonreactive: Antibodies to HCV [...] revised on 2019. HepBsAg Nonreactive Nonreactive [facility] Blood specimen (specimen) 11/17/2019 4:13 AM CDT 11/17/2019 4:31 AM CDT [facility] MICROBIOLOGY - GENERAL ORDERABLES Final Result [facility] [address] Department [place] [address] from Last 3 Months or Most Recently Relevant to Health Maintenance Insurance MEDICARE SOLUTIONS [facility] MEDICARE [employer] MEDICARE MEDICARE SOLUTIONS Advance Directives For more information, please contact: [phone] Documents on File Type Date Recorded Patient Talent Sourcer Expl anation Power of Space Operations Officer 11/29/2021 11:46 AM * Full Code (Latest [...] First Alternate Health Care Agent Care Teams Door Builder Relationship Specialty Start Date End Date Ab Melara MD [address] [address] PCP - General Family Medicine 07/16/21 Lidia Barajas MD Anesthesiologist Anesthesiology 01/13/20
--- OUTSIDE RECORDS SUMMARY | 2024-08-02 22:19 | XMS_ITS | Referral Summary ---
Author Organization [facility] al Address [address] [place] [address] Care Team Providers Care Manager Employment Name Role Phone Lidia Barajas MD Unavailable [...] for pain 42 tablet 2 Active multivit zcgvuoxz-bbyc-BN-c alcium (THERA-M) 9 mg iron-400 mcg tabletIndications: [...] (10/24/2021): Added automatically from request for surgery [id number] Postlaminectomy syndrome, lumbar region 10/25/19 Overview (10/24/2021): Added automatically from request for surgery [id number] Assessment & Plan (07/03/2022 3:48 PM STEM DRYER MAINTAINER): Ms. Mcnulty is doing well following lumbar [...] (10/24/2021): Added automatically from request for surgery [id number] Other chest pain 01/19/2020 Assessment & Plan [...] asso ciated with catheterization of urinary tract ([facility]) 11/16/2019 Neurogenic bladder 11/16/2019 Assessment & Plan [...] need for exchange this admission Suprapubic catheter ([facility]) 11/16/2019 Essential hypertension 11/16/2019 Hypertensive urgency 11/16/2019 [...] (11/25/2019): Added automatically from request for surgery [id number] Chronic lumbar radiculopathy 01/21/2019 Chronic back pain 01/21/2019 Spinal stenosis of lumbar region with radiculopa thy 12/04/2018 Assessment & Plan (07/18/2021 10:23 AM STEM DRYER MAINTAINER): Assessment Healed fusion L2-5 severe retrolisthesis with [...] (06/18/2018): Added automatically from request for surgery [id number] Assessment & Plan (12/04/2018 3:42 PM CDT): Healing fusion C6-7 Continued observation. Assessment & Plan (08/12/2018 10:35 AM STEM DRYER MAINTAINER): Assessment Healing fusion C6-7 Plan Talked about do's and don'ts she is still to maintain her initial restrictions and return in 6 weeks for an x-ray Assessment & Plan (06/25/2018 2:43 PM STEM DRYER MAINTAINER): Angelina was recently hospitalized at [facility] and diagnosed with a disc osteophyte complex [...] (06/18/2018): Added automatically from request for surgery [id number] Cervical pain (neck) 06/13/2018 Asthma 11/13/2013 Overview [...] often do you attend chur ch or yazidi services? More than 4 times per year 03/07/2022 Do you belong to any clubs o r organizations such as caodaism groups, unions, fraternal or athletic groups, or [...] place to sleep or slept in a half-way (including now)? No 03/07/2022 Comments No Sex and Gender Information Value Date Recorded Sex Assigned at Not on file Legal Sex Female 11:49 PM STEM DRYER MAINTAINER Gender Identity Not on file Sexual Orientation [...] Plan Chronic Care Management Worsening( 10:12 AM STEM DRYER MAINTAINER) Milvia Mireles RN Note: Problem: Chronic Pain Goals: 1. Minimize further functional decline 2. Maximize quality of life 3. Control pain Strategies: - Activity/exercise program recommendation - Conservative stepwise pain medicine strategy with multi-disciplinary approach - Recommend healthy lifestyle strategies and compensatory methods as needed Medical Devices Implanted Type Area Plasma Center Nurse Device Identifier Shelf Expiration Date Model / Serial / Lot Spinal Cord Stimulator-2016 Implanted:01/28 (Quantity not on file) Spinal Cord Stimulator Left: Hip Nevro Spinal Cord Stimulation System [id number] / / Description:Closed Bore only 1.5T or [...] ensure it has returned to pre-MRI settings. [employer] 700-025 I Factor Allograft Putty Syringe Graft 2.5cc Bone - [id number] Implanted:Qty: 1 on 07/03/2018 by Zachary Rothman MD at [facility] N/A: Spine Cervical [employer] 03/29/2021 700-025 / / [id number] Plate 1-Level 14 Mm Cervical - [id number] Implanted:Qty: 1 on 07/03/2018 by Zachary Rothman MD at [facility] N/A: Spine Cervical [employer] 30-0114 / / Screw 4.0x14mm Self Drilling Variable - [id number] Implanted:Qty: 4 on 07/03/2018 by Zachary Rothman MD at [facility] N/A: Spine Cervical [employer] [id number] / / Cage Spinal [id number] 7 Degree Porous Coated Latex Free - [id number] Implanted:Qty: 1 on 07/03/2018 by Zachary Rothman MD at [facility] N/A: Spine Cervical Spinal Elements [id number] / / Depuy Synthes Spine [id number] Substitute Bone Graft Fibergraft Gps Medium Putty 6cc - [id number] Implanted:Qty: 1 on 11/29/2021 by Dave Louis MD at [facility] N/A: Lumbar-Sa cral Spine Depuy Synthes Spine [id number] 10/18/2023 [id number] / / [id number] [employer] Osteosponge Allograft Chips Radiolucent Thk4-10mm Graft 30cc Bone [id number] - [id number] - [id number] Implanted:Qty: 1 on 11/29/2021 by Dave Louis MD at [facility] N/A: Lumbar-Sa cral Spine [employer] 10/14/2024 [id number] / [id number] / Depuy Synthes Spine Cage Post Spinal 4d Plif Ti [id number] - [id number] Implanted:Qty: 1 on 11/29/2021 by Dave Louis MD at [facility] N/A: Lumbar-Sa cral Spine Depuy Synthes Spine [id number] 07/30/2024 [id number] / / [id number] Depuy Synthes Spine Expedium 5.5mm 80mm Line Prebent Rodney Spinal Titanium Nonsterile [id number] - [id number] Implanted:Qty: 1 on 11/29/2021 by Dave Louis MD at [facility] N/A: Lumbar-Sa cral Spine Depuy Synthes Spine [id number] / / Depuy Synthes Spine Expedium 5.5mm 85mm Line Prebent Rodney Spinal Titanium Nonsterile [id number] - [id number] Implanted:Qty: 1 on 11/29/2021 by Dave Louis MD at [facility] N/A: Lumbar-Sa cral Spine Depuy Synthes Spine [id number] / / Depuy Synthes Spine Expedium 5.5mm 45mm Polyaxial Spine Screw Bone Titanium 5.5mm Rodney [id number] - [id number] Implanted:Qty: 2 on 11/29/2021 by Dave Louis MD at [facility] N/A: Lumbar-Sa cral Spine Depuy Synthes Spine [id number] / / Depuy Synthes Spine Expedium 6.5mm 45mm Polyaxial Spine Screw Bone Titanium 5.5mm Rodney [id number] - [id number] Implanted:Qty: 3 on 11/29/2021 by Dave Louis MD at [facility] N/A: Lumbar-Sa cral Spine Depuy Synthes Spine [id number] / / Depuy Synthes Spine Expedium 1 Inner Monoaxial Spine Screw Set Titanium [id number] - [id number] Implanted:Qty: 6 on 11/29/2021 by Dave Louis MD at [facility] N/A: Lumbar-Sa cral Spine Depuy Synthes Spine [id number] / / Depuy Synthes Spine Expedium 7mm 45mm 1 Innie Polyaxial Spine Screw Bone Titanium [id number] - [id number] Implanted:Qty: 1 on 11/29/2021 by Dave Louis MD at [facility] N/A: Lumbar-Sa cral Spine Depuy Synthes Spine [id number] / / Procedures Procedure Name Priority Date/Time [...] 11/29/2019 8:04 AM Admit Type: Inpatient Room: [facility] Date of : 1965 Instrument Name: -[id number] [...] the bowel preparation was evaluated usingthe BBPS ([place] Bowel Preparation Scale) with scores of: Right [...] AM CDT) Hep A IgM Nonreactive Nonreactive [facility] Comment: Interpretive Data: If Hep A IgM Ab is reported as Equivocal, a new sample should be drawn in two weeks for testing. Current interpretive data was last revised on 19. Hep B core IgM Nonreactive Nonreactive [facility] Comment: Interpretive Data If HepB Core IgM Ab is reported as Equivocal, a new sample should be drawn in two weeks for testing. Current interpretive data was last revised on 19. Hep C Ab Nonreactive Nonreactive [facility] Comment: Interpretive Data Nonreactive: Antibodies to [...] last revised on 2019. HepBsAg Nonreactive Nonreactive [facility] Blood specimen (specimen) 11/17/2019 4:13 AM CDT 11/17/2019 4:31 AM CDT [facility] MICRO[facility] - GENERAL ORDERABLES Final Result [facility] Aubrie5 LiudmilaKen Joshi Seth Department [place] [address] from Last 3 Months or Most Recently Relevant to Health Maintenance Insurance MEDICARE SOLUTIONS [facility] MEDICARE [facility] MEDICARE Address: [address] [place] [address] [facility] MEDICARE MEDICARE SOLUTIONS Advance Directives For more information, please contact: [phone] Documents on File Type Date Recorded Patient Desktop Analyst Expl anation Power of Supervisor Cereal 11/29/2021 11:46 AM * Full Code (Latest [...] First Alternate Health Care Agent Care Teams Manager Employment Relationship Specialty Start Date End Date Ab Melara MD [id number] [address] PCP - General Family Medicine 07/16/21 Lidia Barajas MD Anesthesiologist Anesthesiology 01/13/20
--- OUTSIDE RECORDS SUMMARY | 2024-08-02 22:19 | XMS_ITS | Encounter Summary ---
Author Organization [facility] Address [address] [place] [address] Care Team Providers Care Slusher Operator Name Role Phone Fiordaliza Snell MD [...] on file Legal Sex Female 2:43 AM CASH ACCOUNTING CLERK Gender Identity Not on file Sexual Orientation Not on file documented as of this encounter Plan of Treatment Not on file documented as of this encounter Visit Diagnoses Diagnosis Unspecified symptom associated with female genital organs- Primary documented in this encounter Additional Health Concerns Infection Onset Date Last Indicated Resolved Time R/O COVID-19 07/02/2020 07/02/2020 07/02/2020 8:53 PM CASH ACCOUNTING CLERK MRSA Comment:Resolved per Type and Duration of Precautions Recommended for Selected Infections and Conditions document 2023 update 07/02/2020 07/02/2020 03/16/20 24 10:58 AM CDT R/O COVID-19 07/10/2020 07/10/2020 07/10/2020 5:01 PM CASH ACCOUNTING CLERK documented as of this encounter Care Teams Slusher Operator Relationship Specialty Start Date End Date Fiordaliza Snell MD PCP - General Family Practice 09/09/22 documented as of this encounter
--- OUTSIDE RECORDS SUMMARY | 2024-08-02 22:19 | XMS_ITS | Clinical Summary ---
Author Organization [facility] Address [address] [place] [address] Phone Care Team Providers Care Lead Front Desk Agent Name Role Phone Fiordaliza Snell MD Primary [...] migh t be different from the original. Recruitment Director - Dr. Eddie Tapia MD, FAC, [facility] - [address] [facility] Problem Noted Date Diagnosed Date YAJAIRA [...] NOS Added automatically from request for surgery [id number] Last Assessment & Plan: Healing fusion C6-7 [...] (09/14/2021): Added automatically from request for surgery [id number] Cervical pain (neck) 06/13/2018 Intractable pain 10/13/2011 [...] 07/25/2020 Neurogenic bladder 1 Probable sepsis 07/25/2020 Immunizations Immunization Administration Dates Next Due (PFIZER)(12 YR UP) COVID-19 VACCINE - EMERGENCY USE AUTHORIZATION, MRNA, [id number](PF) 30 MCG/0.3 ML IM SUSP 12/13/2020,11/20/2020 (PNEUMOVAX [...] on file Legal Sex Female 2:43 AM BRIDGE MAINTENANCE WORKER Gender Identity Not on file Sexual [...] T Respiratory Rate 18 07/12/2020 9:24 PM BRIDGE MAINTENANCE WORKER Oxygen Saturation 97% 04/20/2021 2:12 PM CDT Inhaled Oxygen Concentration - - Weight 91.6 kg (202 lb) 08/07/2020 2:15 PM BRIDGE MAINTENANCE WORKER Height 172.7 cm (5' 8 ) 04/20/2021 2:12 PM CDT Body Mass Index 30.71 08/07/2020 2:15 PM BRIDGE MAINTENANCE WORKER Plan of Treatment Health Maintenance Due Date [...] 03/26/2019, 05/06/2018, Additional history exists COVID-19 Vaccine ( - 2023-2 5 season) 2024 12/13/2020, 11/20/2020 COLORECTAL SCREENING 11/28/2029 11/29/2019, 08/03/2019, 08/03/2019 Colorectal Cancer Screening 11/28/2029 Insurance [employer] O [facility] Advance Directives For more information, please contact: [phone] * Full Code (Latest Code Status on File) Date Activated Date Inactivated Comments 07/02/2020 10:50 PM 07/13/2020 1:53 PM * Full Code Date Activated Date Inactivated Comments 06/26/2011 3:20 AM 06/26/2011 8:40 PM Care Teams Lead Front Desk Agent Relationship Specialty Start Date End Date Fiordaliza Snell MD PCP - General Family Practice 09/09/22
--- OUTSIDE RECORDS SUMMARY | 2024-08-02 22:19 | XMS_ITS | Encounter Summary ---
Author Organization [facility] Address [address] [place] [address] Care Team Providers Care Gas Producer Name Role Phone Fiordaliza Snell MD Primary [...] on file Legal Sex Female 2:43 AM TRAIN STATION SERVER Gender Identity Not on file Sexual Orientation Not on file documented as of this encounter Plan of Treatment Not on file documented as of this encounter Visit Diagnoses Diagnosis Closed fracture of lateral malleolus- Primary documented in this encounter Additional Health Concerns Infection Onset Date Last Indicated Resolved Time R/O COVID-19 07/02/2020 07/02/2020 07/02/2020 8:53 PM TRAIN STATION SERVER MRSA Comment:Resolved per Type and Duration of Precautions Recommended for Selected Infections and Conditions document 2023 update 07/02/2020 07/02/2020 03/16/20 10:58 AM CDT R/O COVID-19 07/10/2020 07/10/2020 07/10/2020 5:01 PM TRAIN STATION SERVER documented as of this encounter Care Teams Gas Producer Relationship Specialty Start Date End Date Fiordaliza Snell MD PCP - General Family Practice 09/09/22 documented as of this encounter
--- OUTSIDE RECORDS SUMMARY | 2024-08-02 22:19 | XMS_ITS | Encounter Summary ---
Author Organization [facility] Address [address] [place] [address] Care Team Providers Care Domestic Violence Counselor Name Role Phone Fiordaliza Snell MD Primary [...] on file Legal Sex Female 2:43 AM SOCIAL SERVICE AGENCY DIRECTOR Gender Identity Not on file Sexual Orientation Not on file documented as of this encounter Plan of Treatment Not on file documented as of this encounter Visit Diagnoses Diagnosis Metrorrhagia- Primary documented in this encounter Additional Health Concerns Infection Onset Date Last Indicated Resolved Time R/O COVID-19 07/02/2020 07/02/2020 07/02/2020 8:53 PM SOCIAL SERVICE AGENCY DIRECTOR MRSA Comment:Resolved per Type and Duration of Precautions Recommended for Selected Infections and Conditions document 2023 update 07/02/2020 07/02/2020 03/16/20 24 10:58 AM CDT R/O COVID-19 07/10/2020 07/10/2020 07/10/2020 5:01 PM SOCIAL SERVICE AGENCY DIRECTOR documented as of this encounter Care Teams Domestic Violence Counselor Relationship Specialty Start Date End Date Fiordaliza Snell MD PCP - General Family Practice 09/09/22 documented as of this encounter
--- OUTSIDE RECORDS SUMMARY | 2024-08-02 22:19 | XMS_ITS | Encounter Summary ---
Author Organization [facility] Address [address] [place] [address] Care Team Providers Care Olericulture Teacher Name Role Phone FrazierShilpa DO Primary Care Provider Lidia Barajas MD Unavailable Ab Melara MD Primary Care Provid er Encounter Details Date Type Department Care Team (Late st Contact Info) Description 03/19/2019 Telephone [facility] - Interventional Radiology [address] [place] [address] Nhung French RN Social History [...] on file Legal Sex Female 11:49 PM THEORETICAL PHYSICS TEACHER Gender Identity Not on file Sexual [...] DT MRSA 12/27/2021 03/06/2022 09/02/2022 3:05 AM THEORETICAL PHYSICS TEACHER documented as of this encounter Care Teams Olericulture Teacher Relationship Specialty Start Date End Date Shilpa Frazier DO PCP - General 06/12/18 07/15/21 Ab Melara MD [address] [address] PCP - General Family Medicine 07/16/21 Lidia Barajas MD Anesthesiologist Anesthesiology 01/13/20 documented as of this encounter
--- OUTSIDE RECORDS SUMMARY | 2024-08-02 22:19 | XMS_ITS | Patient Health Summary ---
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 This disclosure is being madepursuant to the Care Everywhere program and may not contain all information available regarding this patient. Last updated 18.[facility] Allergies * Adhesive Sensitivity(Skin Reactions) [...] (one) tablet by mouth at bedtime * Giatqjxpv-Chknlkop-Ibas Vera (REGENECARE) 2 %(Started 05/29/2020) * ondansetron, [...] (spasms) 2 refills by 09/18/2023 * Nystop [id number] UNIT/GM powder(Started 12/10/2022) Apply to affected area [...] 09/13/2024 * rOPINIRole (Requip) 1 MG tablet(Started 07/28/2024) Take 1 (one) tablet by mouth as directed TAKE ONE TAB AT SUPPER AND ONE TABLETS AT BEDTIME FOR RESTLESS LEG SYNDROME Ended Medications* rOPINIRole (Requip) 1 MG tablet(Started 03/16/2024) (Discontinued) Take 1 (one) tablet by mouth 2 times daily TAKE ONE TAB AT SUPPER AND ONE TABLETS AT BEDTIME FOR RESTLESS LEG SYNDROME 1 refill by 03/16/2025 * rOPINIRole (Requip) 1 MG tablet(Started 07/07/2024)(Discontinued) TAKE 1 (ONE) TABLET BY MOUTH 2 TIMES DAILY TAKE ONE TAB AT SUPPER AND ONE TABLETS AT BEDTIME FOR RESTLESS LEG SYNDROME Active Problems Problem Noted Date Diagnosed Date [...] hard 04/02/2023 [facility] [place] [facility] Occupat ional [facility] - Occupational Stress [...] place to sleep or slept in a fdc (including now)? No 04/02/2023 Sex and Gender Information Value Date Recorded Sex Assigned at Not on file Gender Identity Not on file Sexual Orientation Not on file Last Filed Vital Signs Vital Sign Reading Time Taken Comments Blood Pressure 157/91 05/07/2023 9:23 AM UX LEAD Pulse 86 05/07/2023 9:23 AM UX LEAD Temperature 36.3 ??C (97.3 ??F) 05/07/2023 9:23 AM CS T Respiratory Rate 18 04/02/2023 3:00 PM CDT Oxygen Saturation 95% 05/07/2023 9:23 AM UX LEAD Inhaled Oxygen Concentration 97% 02/21/2021 1 0:15 AM CDT Weight 95.3 kg (210 lb) 03/16/2024 10:50 AM CDT Height 172.7 cm (5' 8 ) 03/16/2024 10:50 AM CDT Body Mass Index 31.93 03/16/2024 10:50 AM CDT Medical Devices Implanted Type Area Manufacturers Agent Device Identifier Shelf Expiration Date Model / Serial / Lot Floseal Hemostatic Matrix Implanted:Qty: 1 on 04/02/2019 by Maicol Mcneil DO at [facility] N/A: Spine [employer] 08/10/2020 [id number] / / [id number] Graft Tissue Drgn + Bvn Clgn Mtrx 1x1in Implanted:Qty: 1 on 04/02/2019 by Maicol Mcneil DO at [facility] N/A: Spine [employer] 04/29/2021 [id number] / / [id number] Seal Tisseel Prima 1 Prefil Frz 4ml - [id number] Implanted:Qty: 1 on 04/02/2019 by Maicol Mcneil DO at [facility] N/A: Spine [employer] 08/27/2020 [id number] / [id number] / [id number] Impl Inj 1ml Coaptite Syr Bulk Agnt Implanted:Qty: 2 on 04/11/2020 by Dave Aparicio MD at [facility] N/A: Bladder [place] [employer] 10/25/2022 [id number] / / [id number] Impl Inj 1ml Coaptite Syr Bulk Agnt Implanted:Qty: 2 on 02/05/2022 by Dave Aparicio MD at [facility] Bladder [place] [employer] 10/16/2024 [id number] / / [id number] Stent Uret 7fr 80cm Str Cls Tip Llok Implanted:Qty: 1 on 09/03/2022 by Nel Cerna DO at [facility] Ureter [place] [employer] 12/23/2025 [id number] / / [id number] Description:bilateral ureter s Procedures * POLYSOMNOGRAPHY 4 [...] 09/03/2022) * ENDOTRACHEAL TUBE NOTE(Performed 09/03/2022) * NM REMV BLADDER,ILEAL CONDUIT(Performed 09/03/2022) Performed for Neurogenic [...] unknown * INSERTION CATHETER SUPRAPUBIC(Performed 02/05/2022) * NM CYSTOSCOPY CHEMODENERVATION(Performed 02/05/2022) * CULTURE URINE(Performed 11/15/2021) [...] congestive heart failure, Primary hypertension, Hypersomnia * NM CYSTOSCOPY CHEMODENERVATION(Performed 06/13/2021) Performed for Neurogenic bladder, [...] * CARDIAC EKG ORDER(Performed 02/21/2021) * CYTOLOGY NON-RESIDENTIAL FINISH CARPENTER PANEL (STL)(Performed 02/21/2021) Performed for Cyst and [...] * CBC W AUTO DIFFERENTIAL(Performed 12/27/2020) * NM CYSTOSCOPY CHEMODENERVATION(Performed 12/25/2020) Performed for Overactive bladder, [...] dysfunction of the urinary bladder, Cystostomy care ([facility]) * URINALYSIS REFLEX MICROSCOPIC REFLEX CULTURE(Performed 11/22/2020) Performed for Neurogenic dysfunction of the urinary bladder, Cystostomy care ([facility]) * CULTURE URINE(Performed 11/22/2020) Performed for Dysuria * NM ANAL/URINARY MUSCLE STUDY(Performed 10/20/2020) Performed for Neurogenic bladder * NM CYSTOMETROGRAM W/DRIVER MEDIC(Performed 10/20/2020) Performed for Neurogenic bladder * CARDIAC [...] unknown * INSERTION CATHETER SUPRAPUBIC(Performed 04/11/2020) * NM CYSTOSCOPY CHEMODENERVATION(Performed 04/11/2020) * SARS-COV-2 (COVID-19) IN [...] CATHETER SUPRAPUBIC(Performed 10/07/2019) Performed for N31.9 * NM CYSTOSCOPY CHEMODENERVATION(Performed 10/07/2019) Performed for N31.9 * [...] unspecified constipation type * EGD(Performed 08/03/2019) * NM EGD LESION ABLATION(Performed 08/03/2019) * NM EGD FLEX TRANSORAL W BX SNGL OR MULT(Performed 08/03/2019) * NM COLONOSCOPY, DIAGNOSTIC(Performed 08/03/2019) * NM ED EGD FLEX TRANSORAL DX(Performed 08/03/2019) * [...] WITH CPAP IF INDICATED (08/06/2023 11:59 PM UX LEAD) Narrative Cresencio Ghosh MD - 08/06/2023 11:59 PM UX LEAD Cresencio Ghosh MD ? 08/14/2023 ??5:01 PM [facility] [place]? s Accredited by the [employer] DIAGNOSTIC POLYSOMNOGRAPHY REPORT PATIENT NAME: Angelina Moya DATE OF : 1965 study Date: 08/05/2023 DATE OF INTERPRETATION: August 14, 2023 Referring Physician: Cresencio Ghosh MD cLINICAL iNDICATIONS: Symptoms suggestive of sleep apnea based on snoring, witnessed apnea and hypersomnia. ??Previous diagnostic study showed no significant sleep apnea? s. [place] Sleepiness Score of 15/24.The patient is a 57 year old Female who is 5' 8 and weighs 192.0 lbs. Her BMI equals 29.4. Polysomnogram Data: Overnight plc technician attended polysomnography was carried out utilizing continuous digital monitoring at the [facility]. Montage included measurements of EEG [...] the overnight PSG including the patient questionnaire, plc technician notes and all associated tabulated data. FOLLOW UP: My office will call the patient and arrange for follow up. Cresencio Ghosh MD [facility] Diplomat of the [employer]iat[employer] and Neurology Board certified in Sleep Medicine Cresencio Ghosh MD SLEEP CENTER ORDERAB LES * (ABNORMAL) CULTURE URINE (05/08/2023 8:50 AM UX LEAD) Only the most recent of36 resultswithin the time period is included. Culture Urine >100,000 CFU/mL Enterobacter cloacae complex(A) KASSY 05/10/2023 12:54 AM [facility] Comment:Isolate is multi dione g resistant organism (MDRO). Culture Urine 10,000-50,000 CFU/mL urogenital maliha KASSY 05/10/2023 12:54 AM [facility]CRO[facility]OLOG[facility] Urine URINE SPECIMEN OBTAINED BY CLEAN CATCH PROCEDURE / Unknown Collection / Unknown 05/08/2023 8:50 AM UX LEAD 05/08/2023 9:09 AM UX LEAD Narrative [facility]CRO[facility]OLOG[facility] - 05/10/2023 12:54 AM UX LEAD This isolate is a multidrug resistant organism [...] le KASSY >=320 ug/mL: Resistant Nel Cerna DO LAB - MICROBIOLOGY ORDERABLES [facility] MICROBIOLOG[facility] [address] [place] [address], [facility] [phone] * CARDIAC EKG ORDER (04/04/2023 3:01 PM CDT) Only the most recent of13 resultswithin the time period is included. Narrative 04/04/2023 3:01 PM CDT Ordered by an unspecified provider. Scanned Document CARDIAC SERVICES ORD ERABLES * (ABNORMAL) CBC W/O DIFFERENTIAL (04/02/2023 2:31 AM CDT) Only the most recent of28 resultswithin the time period is included. WBC 7.3 3.5 - 10.5 10? 3 /uL 04/02/2023 2:43 AM CDT [facility] RBC 4.23 3.80 - 5.20 10? 6 /uL 04/02/2023 2:43 AM CDT [facility] Hemoglobin 11.2(L) 12.0 - 15.6 g/dL 04/02/2023 2:43 AM [facility] Hematocrit 35.1 35.0 - 45.0 % 04/02/2023 2:43 AM [facility] MCV 83.0 80.7 - 98.3 fL 04/02/2023 2:43 AM [facility] MCH 26.5(L) 26.7 - 34.0 pg 04/02/2023 2:43 AM [facility] MCHC 31.9 30.8 - 35.9 g/dL 04/02/2023 2:43 AM [facility] RDW-SD 46.5 36.0 - 50.0 fL 04/02/2023 2:43 AM [facility] RDW-CV 15.6(H) 11.2 - 14.8 % 04/02/2023 2:43 AM [facility] Platelet Count 219 150 - 400 10? 3 /uL 04/02/2023 2:43 AM [facility] MPV 9.8 9.4 - 12.9 fL 04/02/2023 2:43 AM [facility] nRBC Absolute 0.00 0 10? 3 /uL 04/02/2023 2:43 AM [facility] nRBC Auto 0.0 0 /100 WBC 04/02/2023 2:43 AM [facility] Blood BLOOD SPECIMEN / Unknown Lab Venipuncture / Unknown 04/02/2023 2:31 AM CDT 04/02/2023 2:39 AM CDT Missy Sutherland MD LAB - HEMATOLOGY ORD ERABLES [facility] [address] [place] [address], [facility] [phone] * (ABNORMAL) BASIC METABOLIC PANEL (CALCIUM TOTAL) (04/02/2023 2:31 AM CDT) Only the most recent of60 resultswithin the time period is included. BUN 16 7 - 26 mg/dL 04/02/2023 3:07 AM [facility] Creatinine 0.69 0.56 - 0.96 mg/dL 04/02/2023 3:07 AM [facility] Sodium 133(L) 136 - 145 mmol/L 04/02/2023 3:07 AM [facility] Potassium 3.9 3.5 - 4.5 mmol/L 04/02/2023 3:07 AM [facility] Chloride 102 98 - 107 mmol/L 04/02/2023 3:07 AM [facility] CO2 26 22 - 29 mmol/L 04/02/2023 3:07 AM [facility] Glucose 122(H) 70 - 115 mg/dL 04/02/2023 3:07 AM [facility] Calcium 8.3(L) 8.4 - 10.2 mg/dL 04/02/2023 3:07 AM [facility] Anion Gap 5(L) 6 - 16 04/02/2023 3:07 AM [facility] BUN/Creatinine Ratio 23 7 - 23 04/02/2023 3:07 AM [facility] Osmolality Calculated 278 275 - 295 mOsm/kg 04/02/2023 3:07 AM [facility] eGFR by CKD-EPI >90 >=90 mL/min/1.7 3 m2 04/02/2023 3:07 AM [facility] Blood BLOOD SPECIMEN / Unknown Lab Venipuncture / Unknown 04/02/2023 2:31 AM CDT 04/02/2023 2:39 AM CDT Missy Sutherland MD LAB - CHEMISTRY ORDE JOSÉ MIGUEL [facility] Organization Address City/State/ZIP Co de Phone Number [facility] [address] [place] [address], [facility] [phone] * PHOSPHORUS BLOOD (04/02/2023 2:31 AM CDT) Only the most recent of17 resultswithin the time period is included. Phosphorus 4.5 2.9 - 5.1 mg/dL 04/02/2023 3:07 AM [facility] Blood BLOOD SPECIMEN / Unknown Lab Venipuncture / Unknown 04/02/2023 2:31 AM CDT 04/02/2023 2:39 AM CDT Missy Sutherland MD LAB - CHEMISTRY [facility] [address] [place] [address], [facility] [phone] * MAGNESIUM BLOOD (04/02/2023 2:31 AM CDT) Only the most recent of26 resultswithin the time period is included. Pathologist [facility] Magnesium 1.9 1.6 - 2.6 mg/dL 04/02/2023 3:07 AM CDT [facility] Blood BLOOD SPECIMEN / Unknown Lab Venipuncture / Unknown 04/02/2023 2:31 AM CDT 04/02/2023 2:39 AM CDT Missy Sutherland MD LAB - CHEMISTRY [facility] Performing Organization Address City/[facility]/ZIP Co de Phone Number [facility] [address] [place] [address], [place] [phone] * EKG 12-LEAD (03/31/2023 9:32 PM CDT) Only the most recent of17 resultswithin the time period is included. Ventricular Rate 89 BPM [facility] MUSE Atrial Rate 89 BPM [facility] MUSE P-R Interval 176 ms [facility] M[facility] QRS Duration ms 86 ms [facility] MUSE Q-T Interval ms 380 ms [facility] MUSE QTC Calculation (Bezet) 462 ms [facility] MUSE Calculated P [place] 41 degrees SL MUSE Calculated R [place] 31 degrees SL MUSE Calculated T [place] 47 degrees [facility] MUSE Interpretation EKG NORMAL SINUS RHYTHM NORMAL ECG WHEN COMPARED WITH ECG OF 04-SEP-2022 09:01, PREMATURE VENTRICULAR COMPLEXES ARE NO LONGER PRESENT Confirmed by SIGIFREDO SMITH MD ([id number]) on 04/03/2023 7:44:54 PM [facility] MUSE 03/31/2023 9:32 PM CDT 04/03/2023 7:44 PM CDT Lars Beverly MD ECG ORDERABLES [facility] MUSE * CT ABDOMEN PELVIS W CONTRAST [...] > Dictated by Joaquín Bermudez MD, (residential subcontractor). I, Chris Coker MD have personally reviewed and interpreted this examination/study. > Interpreting Provider: Chris Coker MD on 03/30/2023 10:35 PM Narrative 03/30/2023 10:35 PM CDT PROCEDURE: ??CT ABDOMEN PELVIS W CONTRAST, DATE/TIME OF EXAM: ??03/30/2023 4:07 PM, LOCATION ??[facility] INDICATION: R10.32: Abdominal pain, left lower quadrant [...] region (series 3 image 85). There is [id number] fat stranding seen adjacent to the anastomosis [...] DATE/TIME OF EXAM: 03/30/2023 4:07 PM, LOCATION [facility] INDICATION: R10.32: Abdominal pain, left lower quadrant [...] region (series 3 image 85). There is emaa-de-iygexblp fat stranding seenadjacent to the anastomosis at [...] > Dictated by Joaquín Bermudez MD, (residential subcontractor). I, Chris Coker MD have personally reviewed and interpreted this examination/study. > Interpreting Provider: Chris Coker MD on 03/30/2023 10:35 PM Dari Lorenzana MD CT ORDERABLES * (ABNORMAL) URINALYSIS W/MICROSCOPIC NO CULTURE (03/30/2023 12:29 PM CDT) Color UA Yellow Straw, Yellow 03/30/2023 12:53 PM CDT [facility] Clarity UA Slt Cloudy(A) Clear 03/30/2023 12:53 PM CDT [facility] Specific [place] UA 1.020 1.005 - 1.030 03/30/2023 12:53 PM [facility] pH UA 6.0 5.0 - 8.0 pH 03/30/2023 12:53 PM [facility] Protein UA Negative Negative 03/30/2023 12:53 PM [facility] Glucose UA Negative Negative 03/30/2023 12:53 PM [facility] Ketone UA Negative Negative 03/30/2023 12:53 PM [facility] Bilirubin UA Negative Negative 03/30/2023 12:53 PM [facility] Blood UA 2+(A) Negative 03/30/2023 12:53 PM [facility] Nitrite UA Positive(A) Negative 03/30/2023 12:53 PM [facility] Leukocyte Esterase 1+(A) Negative 03/30/2023 12:53 PM [facility] Urobilinogen UA Negative Negative mg/dL 03/30/2023 12:53 PM [facility] RBC UA 3-5 None Seen, 0-2, 3-5 /HPF 03/30/2023 12:53 PM [facility] WBC UA 11-20(A) None Seen, 0-5 /HPF 03/30/2023 12:53 PM T [facility] Squamous Epithelial Cells UA 0-2 None Seen, 0-2, 3-5 /HPF 03/30/2023 12:53 PM [facility] Mucus UA 1+ /LPF 03/30/2023 12:53 PM [facility] Urine URINE SPECIMEN OBTAINED BY CLEAN CATCH PROCEDURE / Unknown Collection / Unknown 03/30/2023 12:29 PM CDT 03/30/2023 12:37 PM CDT [facility] - 03/30/2023 12:53 PM CDT Dari Lorenzana MD LAB - URINALYSIS ORD ERABLES [facility] [address] [place] [address], [facility] [phone] * (ABNORMAL) CBC W AUTO DIFFERENTIAL (03/30/2023 12:26 PM CDT) Only the most recent of73 resultswithin the time period is included. WBC 7.8 3.5 - 10.5 10? 3 /uL 03/30/2023 12:46 PM [facility] RBC 5.21(H) 3.80 - 5.20 10? 6 /uL 03/30/2023 12:46 PM [facility] Hemoglobin 13.7 12.0 - 15.6 g/dL 03/30/2023 12:46 PM [facility] Hematocrit 42.3 35.0 - 45.0 % 03/30/2023 12:46 PM [facility] MCV 81.2 80.7 - 98.3 fL 03/30/2023 12:46 PM [facility] MCH 26.3(L) 26.7 - 34.0 pg 03/30/2023 12:46 PM [facility] MCHC 32.4 30.8 - 35.9 g/dL 03/30/2023 12:46 PM [facility] RDW-SD 43.3 36.0 - 50.0 fL 03/30/2023 12:46 PM [facility] RDW-CV 14.8 11.2 - 14.8 % 03/30/2023 12:46 PM [facility] Platelet Count 224 150 - 400 10? 3 /uL 03/30/2023 12:46 PM [facility] MPV 9.6 9.4 - 12.9 fL 03/30/2023 12:46 PM [facility] nRBC Absolute 0.00 0 10? 3 /uL 03/30/2023 12:46 PM [facility] nRBC Auto 0.0 0 /100 WBC 03/30/2023 12:46 PM [facility] Neutrophils % 68.1 35.0 - 70.0 % 03/30/2023 12:46 PM [facility] Lymphocytes % 23.0 20.0 - 43.0 % 03/30/2023 12:46 PM [facility] Monocytes % 5.7 5.0 - 13.0 % 03/30/2023 12:46 PM [facility] Eosinophils % 2.1 0.0 - 6.0 % 03/30/2023 12:46 PM [facility] Basophil % 0.8 0.0 - 2.0 % 03/30/2023 12:46 PM T [facility] Neutrophils Absolute 5.31 1.60 - 7.00 10? 3 /uL 03/30/2023 12:46 PM [facility] Lymphocyte Absolute 1.79 1.10 - 3.90 10? 3 /uL 03/30/2023 12:46 PM T [facility] Monocytes Absolute 0.44 0.26 - 1.07 10? 3 /uL 03/30/2023 12:46 PM [facility] Eosinophils Absolute 0.16 0.00 - 0.47 10? 3 /uL 03/30/2023 12:46 PM [facility] Basophils Absolute 0.06 0.00 - 0.08 10? 3 /uL 03/30/2023 12:46 PM [facility] Immature Granulocytes % 0.3 0.0 - 1.0 % 03/30/2023 12:46 PM [facility] Immature Granulocytes Absolute 0.02 03/30/2023 12:46 PM [facility] Blood BLOOD SPECIMEN / Unknown Venipuncture / Unknown 03/30/2023 12:26 PM CDT 03/30/2023 12:39 PM CDT Dari Lorenzana MD LAB - HEMATOLOGY ORD ERABLES [facility] [address] [place] [address], [facility] [phone] * (ABNORMAL) COMPREHENSIVE METABOLIC PANEL (03/30/2023 12:26 PM CDT) Only the most recent of49 resultswithin the time period is included. BUN 13 7 - 26 mg/dL 03/30/2023 1:06 PM [facility] Creatinine 0.55(L) 0.56 - 0.96 mg/dL 03/30/2023 1:06 PM [facility] Sodium 140 136 - 145 mmol/L 03/30/2023 1:06 PM [facility] Potassium 4.1 3.5 - 4.5 mmol/L 03/30/2023 1:06 PM [facility] Chloride 104 98 - 107 mmol/L 03/30/2023 1:06 PM [facility] CO2 26 22 - 29 mmol/L 03/30/2023 1:06 PM [facility] Glucose 129(H) 70 - 115 mg/dL 03/30/2023 1:06 PM [facility] Calcium 9.8 8.4 - 10.2 mg/dL 03/30/2023 1:06 PM [facility] Protein Total 8.6(H) 6.0 - 8.3 g/dL 03/30/2023 1:06 PM [facility] Albumin 4.3 3.4 - 5.0 g/dL 03/30/2023 1:06 PM [facility] Bilirubin Total 0.8 0.2 - 1.2 mg/dL 03/30/2023 1:06 PM [facility] Alkaline Phosphatase 124 40 - 150 U/L 03/30/2023 1:06 PM [facility] ALT 15 5 - 55 U/L 03/30/2023 1:06 PM [facility] AST 17 5 - 34 U/L 03/30/2023 1:06 PM [facility] Anion Gap 10 6 - 16 03/30/2023 1:06 PM [facility] BUN/Creatinine Ratio 24(H) 7 - 23 03/30/2023 1:06 PM [facility] Osmolality Calculated 292 275 - 295 mOsm/kg 03/30/2023 1:06 PM [facility] Albumin/Globulin Ratio 1.0(L) 1.1 - 2.3 03/30/2023 1:06 PM [facility] eGFR by CKD-EPI >90 >=90 mL/min/1.7 3 m2 03/30/2023 1:06 PM [facility] Blood BLOOD SPECIMEN / Unknown Venipuncture / Unknown 03/30/2023 12:26 PM CDT 03/30/2023 12:40 PM T Dari Lorenzana MD LAB - CHEMISTRY [facility] Performing Organization Address City/[facility]/ZIP Co de Phone Number [address] [address], [facility] [phone] * (ABNORMAL) GLUCOSE - POINT OF CARE (02/23/2023 9:00 PM CDT) Only the most recent of32 resultswithin the time period is included. Glucose WB/POC 168(H) 70 - 115 mg/dL 02/23/2023 9:01 PM CDT [facility] Specimen Type Cap Fingerstick 2022 9:01 PM CDT [facility] Blood BLOOD SPECIMEN / Unknown 02/23/2023 9:00 PM CDT 02/23/2023 9:01 PM CDT Nel M Eryn DO LAB - POINT OF CAR E ORDERABLES Performing Organization Address [facility] Co de Phone Number [address] [address], [facility] [phone] * CULTURE BLOOD (02/23/2023 4:56 PM CDT) Only the most recent of16 resultswithin the time period is included. Culture No growth day 5 KASSY 02/28/2023 11:01 PM CDT [facility] Blood PERIPHERAL BLOOD / Unknown Lab Venipuncture / Unknown 02/23/2023 4:56 PM CDT 02/23/2023 5:03 PM CDT Nel Jacintombardo LAB - MICROBIOLOGY ORDERABLES Performing Organization Address City/[facility]/ZIP Co de Phone Number [facility] [address] [place] [address], [facility] [phone] * XR CHEST 1VW PORTABLE (02/23/2023 2:38 PM CDT) Only the most recent of9 resultswithin the time period is included. Anatomical Region Laterality Modality Chest Radiographic Estephanie ging 02/24/2023 10:0 7 AM CDT Narrative 02/24/2023 1:57 PM CDT PROCEDURE: ??XR CHEST 1VW PORTABLE, DATE/TIME OF EXAM: ??02/23/2023 2:38 PM, LOCATION ??[facility] INDICATION: Z98.890: History of ileal conduit COMPARISON: [...] dictated by Diogenes Perez MD, PhD (residential subcontractor). George Tellez MD have personally reviewed and interpreted this examination/study. > Interpreting Provider: George Neal MD on 02/24/2023 1:57 PM Procedure Note George Neal MD - 02/24/2023 PROCEDURE: XR CHEST 1VW PORTABLE, DATE/TIME OF EXAM: 02/23/2023 2:38PM, LOCATION [facility] INDICATION: Z98.890: History of ileal conduit COMPARISON: [...] dictated by Diogenes Perez MD, PhD (residential subcontractor). George Tellez MD have personally reviewed and interpreted this examination/study. > Interpreting Provider: George Neal MD on 02/24/2023 1:57 PM Nel Cerna DO DIAGNOSTIC IMAGING ORDERABLES * (ABNORMAL) URINALYSIS REFLEX TO MICROSCOPIC NO CULTURE (02/23/2023 1:41 PM [facility]) Only the most recent of2 resultswithin the time period is included. Color UA Yellow Straw, Yellow 02/23/2023 2:01 PM [facility] Clarity UA Cloudy(A) Clear 02/23/2023 2:01 PM [facility] Specific [place] UA 1.004(L) 1.005 - 1.030 02/23/2023 2:01 PM [facility] pH UA 5.0 5.0 - 8.0 pH 02/23/2023 2:01 PM [facility] Protein UA Negative Negative 02/23/2023 2:01 PM [facility] Glucose UA Negative Negative 02/23/2023 2:01 PM [facility] Ketone UA Negative Negative 02/23/2023 2:01 PM [facility] Bilirubin UA Negative Negative 02/23/2023 2:01 PM [facility] Blood UA 2+(A) Negative 02/23/2023 2:01 PM [facility] Nitrite UA Negative Negative 02/23/2023 2:01 PM [facility] Leukocyte Esterase 3+(A) Negative 02/23/2023 2:01 PM [facility] Urobilinogen UA Negative Negative mg/dL 02/23/2023 2:01 PM [facility] RBC UA 21-50(A) None Seen, 0-2, 3-5 /HPF 02/23/2023 2:01 PM [facility] WBC UA >100(A) None Seen, 0-5 /HPF 02/23/2023 2:01 PM [facility] WBC Clumps Moderate(A) None /HPF 02/23/2023 2:01 PM [facility] Bacteria UA Trace(A) None /HPF 02/23/2023 2:01 PM [facility] Yeast Budding UA Occasional( A) None /HPF 02/23/2023 2:01 PM [facility] Squamous Epithelial Cells UA 0-2 None Seen, 0-2, 3-5 /HPF 02/23/2023 2:01 PM CDT [facility] Urine URINE SPECIMEN FROM NEPHROSTOMY TUBE / Unknown Collection / Unknown 02/23/2023 1:41 PM CDT 02/23/2023 1:50 PM CDT Narrative [facility] - 02/23/2023 2:01 PM CDT Nel Cerna DO LAB - URINALYSIS O RDERABLES Performing Organization Address City/[facility]/ZIP Co de Phone Number [facility] [address] [place] [phone], [facility] [phone] * PREPARE (CROSSMATCH) RBC UNIT(S), 2 Units (02/22/2023 1:17 AM CDT) Only the most recent of7 resultswithin the time period is included. Unit Description -1 LR PRBC LV [facility] Unit ABO A [facility] Unit Rh NEG [facility] Product Number R52 [facility] Unit Donor # [id number] [facility] Unit Status released [facility] Product Code [id number] [facility] Blood Type Barcode 0600 [facility] Expiration Date S BLOOD BANK LAB Unit Description AS1 LR PRBC [facility] Unit ABO B [facility] Unit Rh NEG [facility] Product Number R02 [facility] B LO[facility] Unit Donor # [id number] [facility] Unit Status released [facility] Product Code [id number] [facility] Blood Type Barcode 1700 [facility] Expiration Date [id number] S [facility]OD BANK LAB Blood Bank BLOOD SPECIMEN / Unknown 02/18/2023 9:04 AM CDT Ludmila Nuñez OIL SPRAYER-DATABASE ADMINISTRATION ASSOCIATE LAB - BLOOD BAN K ORDERABLES Performing Organization Address City/[facility]/ZIP Co de Phone Number [facility] [address] [place] [address], [facility] [phone] * ETT LINE PERFORMABLE (02/18/2023 12:23 PM CDT) Narrative Conner Juarez Anes Asst - 02/18/2023 12:23 PM CDT Conner Juarez Anes Asst ? 02/18/2023 12:24 PM Endotracheal Tube Placement: ? Patient Location: OR. Intubation Event Date/Time: ??02/18/2023 11:48 AM Procedure: intubation (00108). Procedure Section: ?? Sedation: under general anesthesia. [...] Antibody Screen NEG 02/18/2023 10:41 AM CDT [facility] ABO Rh AB NEG 02/18/2023 10:41 AM CDT [facility] Blood Bank BLOOD SPECIMEN / Unknown Venipuncture / Unknown 02/18/2023 8:41 AM CDT 02/18/2023 9:04 AM CDT Ludmlia Nuñez OIL SPRAYER-DATABASE ADMINISTRATION ASSOCIATE LAB - BLOOD BAN K ORDERABLES [facility] [address] [place] [address], [place] [phone] * US RETROPERITONEAL COMPLETE (02/10/2023 10:30 AM [...] > Dictated by Lai Blanco DO (residential subcontractor). > Dictated by Lai Blanco DO (Bricklayer Tender) 02/10/2023 8:22 AM IChris MD have personally reviewed and interpreted this examination/study. > Interpreting Provider: Chris Coker MD on 02/10/2023 12:01 PM Narrative 02/10/2023 12:01 PM CDT PROCEDURE: ??US RETROPERITONEAL COMPLETE, DATE/TIME OF EXAM: ??02/10/2023 8:09 AM, LOCATION ??[facility] INDICATION: N28.1: Renal cyst ADDITIONAL CLINICAL INFORMATION: Ordering Provider Reason For Exam: ??Further examination of Left renal hypo attenuating lesion seen on recent pre fabricator Note: ??Left renal cyst within the inferior [...] COMPLETE, DATE/TIME OF EXAM: 38:09 AM, LOCATION 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 > Dictated by Lai Blanco DO (Bricklayer Tender) 02/10/2023 8:22 AM I, Chris Coker MD have personally reviewed and interpreted this examination/study. > Interpreting Provider: Chris Coker MD on 02/10/2023 12:01 PM Emmy Morley MD ORDERABLES * LIPASE BLOOD (02/09/2023 9:00 AM CDT) Only the most recent of14 resultswithin the time period is included. Lipase 9 8 - 78 U/L 02/09/2023 9:28 AM T [facility] Blood BLOOD SPECIMEN / Unknown Lab Venipuncture / Unknown 02/09/2023 9:00 AM CDT 02/09/2023 9:06 AM CDT [facility] - 02/09/2023 9:28 AM CDT Lipase results from the Tealet Alinity analyzer may not be comparable with other methodologies. Emmy Morley MD LAB - CHEMISTRY ORD ERABLES Performing Organization Address City/[facility]/ZIP Co de Phone Number [address] [address], [place] [phone] * TROPONIN-I HIGH SENSITIVE REFLEX 1HOUR (02/08/2023 5:47 AM CDT) Troponin I High Sensitive 3 <=14 ng/L 02/08/2023 6:33 AM CDT [facility] Delta Troponin I HS 0 <6 ng/L 02/08/2023 6:33 AM CDT [facility] Blood BLOOD SPECIMEN / Unknown Venipuncture / Unknown 02/08/2023 5:47 AM CDT 02/08/2023 5:59 AM CDT Ancelmo Claire MD LAB - CHEMISTRY ORDERABLES Performing Organization Address [facility]/ZIP Co de Phone Number [address] [address], [place] [phone] * (ABNORMAL) URINE MICROSCOPIC ONLY REFLEX TO CULTURE (02/08/2023 4:42 AM CDT) Only the most recent of25 resultswithin the time period is included. Reflex Status Culture to follow 02/08/2023 6:54 AM CDT [facility] RBC UA 6-10(A) None Seen, 0-2, 3-5 /HPF 02/08/2023 6:54 AM T [facility] WBC UA 6-10(A) None Seen, 0-5 /HPF 02/08/2023 6:54 AM T [facility] Bacteria UA Trace(A) None /HPF 02/08/2023 6:54 AM T [facility] Squamous Epithelial Cells UA None Seen None Seen, 0-2, 3-5 /HPF 02/08/2023 6:54 AM T [facility] Mucus UA 2+ /LPF 02/08/2023 6:54 AM CDT [facility] Urine URINE SPECIMEN OBTAINED VIA INDWELLING URINARY CATHETER / Unknown Collection / Unknown 02/08/2023 4:42 AM CDT 02/08/2023 4:51 AM CDT Narrative [facility] - 02/08/2023 6:54 AM CDT Ancelmo Claire MD LAB - URINALYSI S ORDERABLES [facility] [address] [place] [address], [facility] [phone] * (ABNORMAL) URINALYSIS REFLEX MICROSCOPIC REFLEX CULTURE (02/08/2023 4:42 AM CDT) Only the most recent of28 resultswithin the time period is included. Color UA Straw Straw, Yellow 02/08/2023 5:18 AM [facility] Clarity UA Clear Clear 02/08/2023 5:18 AM [facility] Specific [place] UA 1.047(H) 1.005 - 1.030 02/08/2023 5:18 AM [facility] pH UA 6.0 5.0 - 8.0 pH 02/08/2023 5:18 AM [facility] Protein UA Negative Negative 02/08/2023 5:18 AM [facility] Glucose UA Negative Negative 02/08/2023 5:18 AM [facility] Ketone UA Negative Negative 02/08/2023 5:18 AM [facility] Bilirubin UA Negative Negative 02/08/2023 5:18 AM [facility] Blood UA 1+(A) Negative 02/08/2023 5:18 AM [facility] Nitrite UA Positive(A) Negative 02/08/2023 5:18 AM [facility] Leukocyte Esterase Trace(A) Negative 02/08/2023 5:18 AM [facility] Urobilinogen UA Negative Negative mg/dL 02/08/2023 5:18 AM [facility] Urine URINE SPECIMEN OBTAINED VIA INDWELLING URINARY CATHETER / Unknown Collection / Unknown 02/08/2023 4:42 AM CDT 02/08/2023 4:51 AM CDT Narrative [facility] - 02/08/2023 5:18 AM CDT Ancelmo Claire MD LAB - URINALYSI S ORDERABLES Performing Organization Address City/[facility]/ZIP Co de Phone Number [address] [address], [place] [phone] * TROPONIN-I HIGH SENSITIVE BASELINE + 1HR (02/08/2023 4:32 AM CDT) Troponin I High Sensitive <3 <=14 ng/L 02/08/2023 5:14 AM CDT [facility] Blood BLOOD SPECIMEN / Unknown Venipuncture / Unknown 02/08/2023 4:32 AM CDT 02/08/2023 4:43 AM CDT Ancelmo Claire MD LAB - CHEMISTRY ORDERABLES Performing Organization Address [facility] Co de Phone Number [address] [address], [facility] [phone] * CREATININE BODY FLUID ([facility] ONLY) (09/10/2022 9:44 AM CDT) Creatinine Fluid 0.5 Not Established For Fluids mg/dL 09/10/2022 10:21 AM CDT [facility] Comment:The analytical perfo rmance of this test has been independently validated by [facility]. A reference range has not been established. Comparison of this result with the concentration in blood, serum or plasma is recommended. Fluid PERITONEAL FLUID / Unknown Collection / Unknown 09/10/2022 9:44 AM CDT 09/10/2022 9:48 AM CDT Elsy DORAN LAB - BODY FLUID ORDERABLES Performing Organization Address City/[facility]/ZIP Co de Phone Number [address] [address], [place] [phone] * TRANSFUSE RED BLOOD CELL LEUKOREDUCED UNIT(S) (09/04/2022 5:50 PM UX LEAD) Nel NAIDU - BLOOD NM OD TRANSFUSION * TRANSFUSE RED BLOOD CELL LEUKOREDUCED UNIT(S) (09/04/2022 1:26 PM UX LEAD) Nel Cerna DO NURSING - BLOOD NM OD TRANSFUSION * TEG 6 GLOBAL HEMOSTASIS W/ LYSIS (09/04/2022 10:21 AM UX LEAD) Pathologist [facility] Citrated Kaolin R (Reaction Time) 7.7 4.6 - 9.1 min 09/04/2022 11:54 AM [facility] Citrated Kaolin LY30 (Lysis) 0.9 0.0 - 2.6 % 09/04/2022 11:54 AM [facility] Citrated Functional Fibrinogen MA (Max Amplitude) 17.5 15.0 - 32.0 mm 09/04/2022 11:54 AM [facility] Citrated RapidTEG MA (Max Amplitude) 59.1 52.0 - 70.0 mm 09/04/2022 11:54 AM [facility] Blood BLOOD SPECIMEN / Unknown Venipuncture / Unknown 09/04/2022 10:21 AM UX LEAD 09/04/2022 10:49 AM UX LEAD Nel Cerna DO LAB - HEMATOLOGY O RDERABLES Performing Organization Address [facility] Co de Phone Number [address] [address], [facility] [phone] * (ABNORMAL) TEG 6S PLATELET MAPPING (09/04/2022 10:21 AM UX LEAD) [facility] TEGPLM (Max Amplitude) [place] 62.0 53.0 - 68.0 mm 09/04/2022 11:31 AM [facility] TEGPLM (Max Amplitude) ACTF 12.3 2.0 - 19.0 mm 09/04/2022 11:31 AM [facility] TEGPLM (Max Amplitude) ADP 54.2 45.0 - 69.0 mm 09/04/2022 11:31 AM [facility] TEGPLM (Max Amplitude) AA 52.0 51.0 - 71.0 mm 09/04/2022 11:31 AM [facility] TEGPLM %Inhibition ADP 15.7 0.0 - 17.0 % 09/04/2022 11:31 AM [facility] TEGPLM %Inhibition AA 20.1(H) 0.0 - 11.0 % 09/04/2022 11:31 AM [facility] TEGPLM %Aggregation ADP 84.3 83.0 - 100.0 % 09/04/2022 11:31 AM [facility] TEGPLM % Aggregation AA 79.9(L) 89.0 - 100.0 % 09/04/2022 11:31 AM [facility] Blood BLOOD SPECIMEN / Unknown Venipuncture / Unknown 09/04/2022 10:21 AM UX LEAD 09/04/2022 10:49 AM [facility] Nel Cerna LAB - HEMATOLOGY O RDERABLES Performing Organization Address City/[facility]/ZIP Co de Phone Number [address] [address], [facility] [phone] * (ABNORMAL) PTT [facility] (09/04/2022 10:21 AM [facility] APTT 45.9(H) 23.0 - 38.4 Seconds 09/04/2022 11:12 AM [facility] Comment:Suggested therapeuti c range for full dose I.V. unfractionated heparin therapy for venous thromboembolism is 71 to 109 seconds. Blood BLOOD SPECIMEN / Unknown Venipuncture / Unknown 09/04/2022 10:21 AM UX LEAD 09/04/2022 10:49 AM [facility] Nel Cerna LAB - COAGULATION ORDERABLES [address] [address], [place] [phone] * (ABNORMAL) PT-INR [facility] (09/04/2022 10:21 AM [facility] PT 21.1(H) 12.1 - 14.8 Seconds 09/04/2022 11:22 AM UX LEAD [facility] INR 1.8 See Comment 09/04/2022 11:22 AM UX LEAD [facility] Comment:The suggested therap eutic range for standard coumadin (warfarin) therapy is an INR of 2.0-3.0. For high-risk patients (Mechanical Mitral Valve Prosthesis, etc.), the suggested prophylactic therapeutic range is an INR of 2.5-3.5. Blood BLOOD SPECIMEN / Unknown Venipuncture / Unknown 09/04/2022 10:21 AM UX LEAD 09/04/2022 10:49 AM UX LEAD Nel Reza Eryn PEREZ LAB - COAGULATION ORDERABLES Performing Organization Address City/[facility]/ZIP Co de Phone Number [address] [address], [facility] [phone] * FIBRINOGEN ACTIVITY (09/04/2022 10:21 AM UX LEAD) Fibrinogen Clauss 254 200 - 400 mg/dL 09/04/2022 11:12 AM UX LEAD [facility] Blood BLOOD SPECIMEN / Unknown Venipuncture / Unknown 09/04/2022 10:21 AM UX LEAD 09/04/2022 10:49 AM UX LEAD Nel Reza Eryn PEREZ LAB - COAGULATION ORDERABLES Performing Organization Address [facility] Co de Phone Number [address] [address], [place] [phone] * LACTIC ACID BLOOD (09/04/2022 8:32 AM UX LEAD) Only the most recent of23 resultswithin the time period is included. Lactic Acid-Stat 1.4 <=2.0 mmol/L 09/04/2022 9:12 AM UX LEAD [facility] Blood BLOOD SPECIMEN / Unknown Venipuncture / Unknown 09/04/2022 8:32 AM UX LEAD 09/04/2022 8:52 AM UX LEAD Elsy Kraus APRN-DATABASE ADMINISTRATION ASSOCIATE LAB - CHEMISTRY ORDERABLES Performing Organization Address City/[facility]/ZIP Co de Phone Number [address] [place] [address], [facility] [phone] * (ABNORMAL) BLOOD GAS+COOX+LYTES+METAB ARTERIAL POCT (09/03/2022 7:05 PM [facility]) Only the most recent of9 resultswithin the time period is included. pH Arterial 7.38 7.35 - 7.45 pH 09/03/2022 7:05 PM [facility] pO2 Arterial 183(H) 80 - 100 mmHg 09/03/2022 7:05 PM [facility] pCO2 Arterial 41 35 - 45 mmHg 7:05 PM [facility] HCO3 Arterial 24 20 - 30 mmol/l 09/03/2022 7:05 PM [facility] BE Arterial -0.8 -2.0 - 2.0 mmol/L 09/03/2022 7:05 PM [facility] Oxyhemoglobin Arterial 96.4 % 09/03/2022 7:05 PM [facility] Dexoyhemoglobin (HHB) % 1.3 % 09/03/2022 7:05 PM [facility] Methemoglobin 1.1 0.0 - 2.0 % 09/03/2022 7:05 PM [facility] Carboxyhemoglobin 1.2 0.0 - 2.0 % 2022 7:05 PM [facility] Comment:Carboxyhemoglobin No rmal Concentration: Non-smokers: 0-2%; Smokers: 0- 9%; Toxic: >20% O2 Content Arterial 15.0 Interpret within clinical context ml/dL 09/03/2022 7:05 PM [facility] Hemoglobin by COOX 10.8(L) 12.0 - 15.6 g/dL 09/03/2022 7:05 PM [facility] O2 Saturation Arterial 99 90 - 100 % 09/03/2022 7:05 PM [facility] Sodium Whole Blood 135 135 - 145 mmol/L 09/03/2022 7:05 PM [facility] Potassium Whole Blood 4.8 3.5 - 5.5 mmol/L 09/03/2022 7:05 PM [facility] Chloride WB 105 101 - 111 mmol/L 09/03/2022 7:05 PM [facility] Calcium Ionized 1.29 mmol/L 7:05 PM [facility] Ionized Calcium pH Adjusted 1.28 1.19 - 1.34 mmol/L 09/03/2022 7:05 PM [facility] Anion Gap (AG) Arterial 11 8 - 18 mmol/L 09/03/2022 7:05 PM [facility] Glucose WB 160(H) 70 - 105 mg/dL 09/03/2022 7:05 PM [facility] Lactic Acid Whole Blood 1.2 <=2.0 mmol/L 09/03/2022 7:05 PM [facility] Blood, arterial ARTERIAL BLOOD SPECIMEN / Unknown 09/03/2022 7:05 PM UX LEAD 09/03/2022 7:06 PM UX LEAD Nel Cerna DO LAB - POINT OF CAR E ORDERABLES [address] [address], [facility] [phone] * BLOOD GAS ART+LYTES+METAB+COOX POC NOTIF (09/03/2022 7:02 PM UX LEAD) Only the most recent of3 resultswithin the time period is included. Comment Notification Label Only - See Separate Report 09/03/2022 8:30 PM [facility] Other MISCELLANEOUS SAMPLES / Unknown 09/03/2022 7:02 PM UX LEAD 09/03/2022 7:04 PM UX LEAD Nolberto Prado MD LAB - BLOOD GASES OR DERABLES [address] [address], [place] [phone] * CULTURE FUNGUS OTHER+FUNGUS SMEAR (09/03/2022 5:27 PM UX LEAD) Only the most recent of2 resultswithin the time period is included. Culture No fungus isolated KASSY 09/30/2022 8:51 AM CDT [facility] Fungus Stain No yeast or hyphae seen 09/30/2022 8:51 AM CDT [facility] Microbiology BIOPSY OF URETHRA / Unknown Collection / Unknown 09/03/2022 5:27 PM UX LEAD 09/03/2022 5:27 PM UX LEAD Nel Cerna LAB - MICROBIOLOGY ORDERABLES Performing Organization Address [facility] Co de Phone Number [facility] [address] [place] [address], [facility] [phone] * CULTURE AFB+SMEAR (09/03/2022 5:27 PM UX LEAD) Only the most recent of2 resultswithin the time period is included. Culture No acid-fast bacillus isolated 10/14/2022 8:53 AM CDT [facility]CRO[facility] AFB Smear No acid-fast bacilli seen 10/14/2022 8:53 AM T [facility] Microbiology BIOPSY OF URETHRA / Unknown Collection / Unknown 09/03/2022 5:27 PM UX LEAD 09/03/2022 5:27 PM UX LEAD Nel Cerna LAB - MICROBIOLOGY ORDERABLES Performing Organization Address [facility] de Phone Number [facility]CRO[facility] [address] [place] [address], [facility] [phone] * CULTURE WOUND+GRAM STAIN (09/03/2022 5:26 PM UX LEAD) Culture No growth KASSY 09/07/2022 7:52 AM UX LEAD [facility] Gram Stain No organisms seen 023 7:52 AM UX LEAD [facility] Gram Stain Light Polymorphonuclear cells 09/07/2022 7:52 AM UX LEAD [facility] Microbiology BIOPSY OF URETHRA / Unknown Collection / Unknown 09/03/2022 5:26 PM UX LEAD 09/03/2022 5:26 PM UX LEAD Nel Cerna LAB - MICROBIOLOGY ORDERABLES Performing Organization Address [facility]/ZIP Co de Phone Number [facility] [address] [place] [address], [facility] [phone] * CULTURE TISSUE+GRAM STAIN (09/03/2022 5:26 PM UX LEAD) Culture No growth KASSY 09/06/2022 11:51 PM UX LEAD [facility] Gram Stain Rare Polymorphonuclear cells 09/06/2022 11:51 PM UX LEAD [facility] Gram Stain No organisms seen 023 11:51 PM UX LEAD [facility] Microbiology BIOPSY OF URETHRA / Unknown Collection / Unknown 09/03/2022 5:26 PM UX LEAD 09/03/2022 5:26 PM UX LEAD Nel Cerna DO LAB - MICROBIOLOGY ORDERABLES Performing Organization Address [facility] de Phone Number [facility]CRO[facility] [address] [place] [address], [facility] [phone] * CULTURE ANAEROBE (09/03/2022 5:26 PM UX LEAD) Only the most recent of2 resultswithin the time period is included. Culture No anaerobic organisms isolated KASSY 09/09/2022 1:14 PM CDT [facility]CRO[facility] Microbiology BIOPSY OF URETHRA / Unknown Collection / Unknown 09/03/2022 5:26 PM UX LEAD 09/03/2022 5:26 PM UX LEAD Nel Cerna DO LAB - MICROBIOLOGY ORDERABLES Performing Organization Address [facility] Co de Phone Number [facility]CRO[facility] [address] [place] [address], [facility] [phone] * PATHOLOGY TISSUE (09/03/2022 3:58 PM UX LEAD) Case Report Surgical Pathology Report ? Case: [id number] ? Authorizing Provider: ??Nel Cerna, DO ?Collected: ? 09/03/2022 03:58 PM ? Ordering Location: ? [facility] ?Received: ?09/04/2022 07:41 AM ? Pathologist: ? Missy Smith MD ? Specimens: ?? A) - Urinary Bladder, bladder ? B) - Soft Tissue, Other, Urethral Diverticulum Wall ? 09/06/2022 12:45 PM [facility] Final Diagnosis Bladder, simple cystectomy (A): - Benign urothelium with follicular cystitis Urethra, diverticulum wall, excision (B): - Benign urothelium and foreign body giant cell reaction 09/06/2022 12:45 PM [facility] Microscopic Description and Comment Microscopic examination substantiates the final diagnosis. 09/06/2022 12:45 PM [facility] Clinical History The patient is a 56 year old woman with neurogenic bladder with refractory bladder spasms/pain and recurrent urinary tract infections. 09/06/2022 12:45 PM [facility] Gross Description The requisition and [...] adipose tissue has no distinct lymph nodes. Test Engineer Nuclear Equipment sections are submitted as follows: A1 right [...] sectioned and entirely submitted in cassette B1. 09/06/2022 12:45 PM [facility] Disclaimer The performance characteristics of all immunohistochemical and indirect immunofluorescence stains (if any) cited in this report were determined by the Histopathology Laboratory of [facility]. Some of these tests were developed [...] the attending (teaching) pathologist. 09/06/2022 12:45 PM [facility] Embedded Images 09/06/2022 12:45 PM [facility] Biopsy, NOS (Urinary Bladder) 09/03/2022 3:58 PM UX LEAD 09/04/2022 7:41 AM UX LEAD Comment:Pre-op diagnosis: Neurogenic bladder Urge incontinence Bladder pain Continuous leakage of urine Recurrent UTI Biopsy, Excision (Soft Tissue, Other) 09/03/2022 3:58 PM UX LEAD 09/04/2022 7:41 AM UX LEAD Comment:Pre-op diagnosis: Neurogenic bladder Urge incontinence Bladder pain Continuous leakage of urine Recurrent UTI Nel Cerna DO LAB - PATHOLOGY/CY TOLOGY ORDERABLES [facility] [address] [facility] [place] [address], [facility] [phone] * IV PLACEMENT PERFORMABLE (09/03/2022 12:39 PM UX LEAD) Narrative Charles Kemp MD - 09/03/2022 12:39 PM UX LEAD Charles Kemp MD ? 09/03/2022 12:41 PM Peripheral IV Line Placement: Procedure: IV start ([id number]). Procedure Section: ?? Skin Prep: Chloraprep. Orientation: [...] * ETT LINE PERFORMABLE (09/03/2022 12:06 PM UX LEAD) Narrative Charles Kemp MD - 09/03/2022 12:06 PM UX LEAD Charles Kemp MD ? 09/03/2022 12:09 PM Endotracheal Tube Placement: ? Patient Location: OR. Intubation Event Date/Time: ??09/03/2022 11:20 AM Procedure: intubation ([id number]). Procedure Section: ?? Sedation: under general anesthesia. [...] * ARTERIAL LINE PERFORMABLE (09/03/2022 11:45 AM UX LEAD) Narrative Charles Kemp MD - 09/03/2022 11:45 AM UX LEAD Charles Kemp MD ? 09/03/2022 11:47 AM Arterial Line Placement Procedure Note Patient Location: OR. Procedure: Arterial Line ([id number]). Procedure Section ?? Consent: informed consent was [...] CT RENAL STONE PROTOCOL (05/29/2022 12:53 PM UX LEAD) Only the most recent of2 resultswithin the time period is included. Anatomical Region Laterality Modality Abdomen Computed Tomogra phy 05/29/2022 1:03 PM UX LEAD Impressions 05/29/2022 1:09 PM UX LEAD IMPRESSION: 1. ??No renal stones or obstruction. 2. ??Percutaneous cystostomy tube has decompressed the bladder. ??There are approximately 3 stones within the bladder 3. ??Other chronic and incidental findings as described. > Interpreting Provider: Yasmine Schmitt MD on 05/29/2022 1:09 PM Narrative 05/29/2022 1:09 PM UX LEAD PROCEDURE: ??CT RENAL STONE, DATE/TIME OF EXAM: ??05/29/2022 12:58 PM, LOCATION ??[facility] INDICATION: R39.89: Other symptoms and signs involving [...] DATE/TIME OF EXAM: 05/29/2022 12:58 PM, LOCATION [facility] INDICATION: R39.89: Other symptoms and signs involving [...] MD on 05/29/2022 1:09 PM Kay Palmer OIL SPRAYER-DATABASE ADMINIST[employer]OCIATE CT ORDERABLES * XR ANKLE LEFT 3VW [...] DATE/TIME OF EXAM: ??04/05/2022 6:34 PM, LOCATION ??[facility] INDICATION: M79.672: Pain in left foot ADDITIONAL [...] MORE, DATE/TIME OF EXAM: 26:34 PM, LOCATION [facility] INDICATION: M79.672: Pain in left foot ADDITIONAL [...] MD on 04/05/2022 6:39 PM Kiesha Rodriguez [employer] ADMINISTRATION ASSOCIATE DIAGNOSTIC IM AGING ORDERABLES * XR FOOT [...] DATE/TIME OF EXAM: ??04/05/2022 5:48 PM, LOCATION ??[facility] INDICATION: M79.672: Pain in left foot ADDITIONAL [...] DATE/TIME OF EXAM: 04/05/2022 5:48 PM, LOCATION [facility] INDICATION: M79.672: Pain in left foot ADDITIONAL [...] MD on 04/05/2022 5:57 PM Kiesha Rodriguez OIL SPRAYER-DATABASE ADMINISTRATION ASSOCIATE DIAGNOSTIC IM AGING ORDERABLES * CARDIAC RHYTHM [...] Negative [facility] Comment:25 Specific [place] UA POCT 1.005 1.002 - 1.[address] [facility] Ketone UA negative Negative [facility] Bilirubin UA POCT negative Negative [facility] Glucose UA negative Negative [facility] Expiration Date 05/03/[address] [facility] Lot # [id number] [facility] QC Verified Yes Yes [facility] Urine URINE / Unknown 10/29/2021 1 1:13 AM CDT Dave Aparicio MD LAB - POINT OF CARE ORDERABLES [facility] [address] [facility], [place] [address] [address] [address], [facility] [phone] * FERRITIN (10/24/2021 3:40 PM CDT) Only the most recent of2 resultswithin the time period is included. Ferritin 55 5 - 204 ng/mL [facility] INSURANCE BILL Blood BLOOD SPECIMEN / Unknown 10/24/2021 3:40 PM CDT 10/24/2021 Narrative Resulting Agency Comment Lab Testing performed at: [facility] [address] [facility] ?? Ty CRAWFORD [phone] Cresencio Ghosh MD LAB - CHEMISTRY ORDDionna [facility] INSURANCE BILL [address] [place] [address] * POLYSOMNOGRAM WITH CPAP IF INDICATED (09/03/2021 8:30 AM UX LEAD) Narrative Elena Lee - 09/03/2021 8:30 AM UX LEAD Cresencio Ghosh MD ? 09/03/2021 ??8:31 AM [facility] Sleep Services [facility] DIAGNOSTIC POLYSOMNOGRAPHY REPORT Name: ??Angelina Moya Date of : 1965 Date of Test: ??09/02/2021 Date of interpretation: 09/03/2021 Referring Physician: Dr. Cresencio Ghosh CLINICAL INDICATION: ?? Symptoms suggestive of obstructive sleep apnea with snoring, witnessed apnea, disrupted sleep with excessive day time sleepiness and [place] Sleepiness Score of 15 /24. Weight 229 pounds, Ht 68 inches with BMI of 34.7. PROCEDURE: Overnight plc technician attended polysomnography was carried out utilizing continuous digital monitoring at the [facility] [place]. Montage included measurements of EEG (electroencephalography), EOG [...] the overnight PSG including the patient questionnaire, plc technician notes and all associated tabulated data. FOLLOW UP: My office will call the patient and arrange for follow up. Cresencio Ghosh MD Terminal Gauger Supervisor Sleep [facility] and [facility] Diplomate of the [place] Board of Psychiat[employer] and Neurology Board certified in Sleep Medicine Procedure Note Cresencio Ghosh MD - 09/03/2021 8:30 AM CST Images from the original note were not included. [facility] Sleep Services [facility] DIAGNOSTIC POLYSOMNOGRAPHY REPORT Name: Angelina Moya Date of : 1965 Date of Test: 09/02/2021 Date of interpretation: 09/03/2021 Referring Physician: Dr. Cresencio Ghosh CLINICAL INDICATION: Symptoms suggestive of obstructive sleep apnea withsnoring, witnessed apnea, disrupted sleep with excessive day timesleepiness and [place] Sleepiness Score of 15 /24. Weight 229 pounds, Ht68 inches with BMI of 34.7. PROCEDURE: Overnight plc technician attended polysomnography was carried out utilizingcontinuous digital monitoring at the [facility]. Montageincluded measurements of EEG (electroencephalography), EOG(electro-oculography), EMG [...] Respiratory monitoring: Patient per 3% desaturation IA AASM criteria had total of 15 episodes ofapneas [...] using 1A rule and 2.1 per hour [id number] rule. There was evidence for upper airway [...] on the overnight PSGincluding the patient questionnaire, plc technician notes and all associatedtabulated data. FOLLOW UP: My office will call the patient and arrange for follow up. Cresencio Ghosh MD Terminal Gauger Supervisor [facility] Diplomate of the [place] [employer] of Psychiatry and Neurology Board certified in Sleep Medicine Cresencio Ghosh MD SLEEP CENTER ORDERAB LES * LAB RESULTS ORDER (06/06/2021) 06/06/2021 Narrative 06/06/2021 Ordered by an unspecified provider. Scanned Document LAB - THERAPEUTIC DR OJEDA MONITORING ORDERABLES * CYTOLOGY NON-RESIDENTIAL FINISH CARPENTER PANEL (STL) (02/21/2021 11:35 AM CDT) Case Report Medical Cytology Report ? Case: [id number] ? Authorizing Provider: ??Christopher Rueda, Collected: ? 02/21/2021 11:35 AM ? Ordering Location: ? [facility] ?Received: ?02/21/2021 11:56 AM ? Pathologist: ? Ben Hodge MD ? Specimen: ?Cyst Fluid, Tail of pancreas cyst ? 02/22/2021 3:25 PM [facility] Specimen Adequacy Adequate cellularity for evaluation. 02/22/2021 3:25 PM [facility] Final Diagnosis Pancreatic cyst, EUS-FNA: - Cyst contents with mildly atypical, but degenerated cells of uncertain origin and significance (see comment) - Negative for high grade dysplasia 02/22/2021 3:25 PM [facility] Clinical History The patient [...] CEA or amylase testing. 02/22/2021 3:[address] [facility] Gross Description 1 ThinPrep pap stained slide, 1 cell block from 10cc pink cloudy fluid 02/22/2021 3:[address] [facility] Microscopic Description A ThinPrep [...] keeping with a pseudocyst. 02/22/2021 3:[address] [facility] Disclaimer The performance characteristics of all immunohistochemical and indirect immunofluorescence stains (if any) cited in this report were determined by the Histopathology Laboratory of [facility]. Some of these tests rely on the use of analyte-specific reagents and are subject to specific labeling requirements by the US Food and Drug Administration. Such tests were developed by the Histology Laboratory of [facility] and have not been cleared or approved [...] attending (teaching) pathologist. 02/22/2021 3:[address] [facility] Embedded Images 02/22/2021 3:[address] [facility] Pathology/Cytolo gy CYST FLUID SPECIMEN / Unknown Collection / Unknown 02/21/2021 11:35 AM CDT 02/21/2021 11:56 AM CDT Christopher Cortés MD LAB - PATHOL OGY/CYTOLOGY ORDERABLES [facility] [address] [facility] [place], [place] [address] [phone] * POTASSIUM WHOLE BLD (02/21/2021 10:09 AM CDT) Potassium Whole Blood 4.2 3.5 - 5.5 mmol/L 02/21/2021 10:17 AM CDT [facility] Blood WHOLE BLOOD SPECIMEN / Unknown Venipuncture / Unknown 02/21/2021 10:09 AM CDT 02/21/2021 10:09 AM CDT Christopher Cortés MD LAB - CHEMIS TRY ORDERABLES [facility] [address] [place] [address], [facility] [phone] * ENDOSCOPIC ULTRASONOGRAPHY, GI (02/21/2021 8:10 AM CDT) Pathologist [facility] Report Endoscopy POC Endoscopy Department Report _ Patient Name: Angelina Moya ?Procedure Date: 02/21/2021 8:10 AM ?Date of : 1965 Classification: Outpatient ?Gender: Female Ethnicity: Not or ? Race: White _ Providers: ?Christopher Cortés MD Referring MD: ? Massiel Melara MD Procedure: ?Upper EUS Indications: ?Pancreatic cyst [...] The patient ?tolerated the procedure well. The [id number] was ?introduced through the mouth, and advanced [...] via fine ? needle aspiration. A 22-gauge [employer] Biopsy needle was used. Color ? Doppler [...] Procedure Code(s): ? --- Professional --- ? 97928, Esophagogastroduod enoscopy, flexible, transoral; with ? transendoscopic ultrasound-guided intramural or transmural fine needle ? aspiration/biopsy( s), (includes endoscopic ultrasound examination ? limited to the esophagus, stomach or duodenum, and adjacent structures) Diagnosis Code(s): ?--- Professional --- ?K86.2, Cyst of pancreas CPT copyright 2019 [employer]. All rights reserved. The codes documented in this report are preliminary and upon perioperative tech review may be revised to meet current compliance requirements. Christopher Cortés MD 02/21/2021 11:06:27 AM Note Initiated On: 02/21/2021 8:10 AM Number of Addenda: 0 ? [facility] ? [address] PROVATION 02/21/2021 8:10 AM CDT Christopher Cortés MD GI PROCEDURE ORDERABLES [facility] * HEMOGLOBIN A1C (02/01/2021 4:15 PM CDT) Only the most recent of3 resultswithin the time period is included. Hemoglobin A1c 4.9 4.4 - 6.3 % 02/02/2021 9:21 AM CDT [facility] Estimated Average Glucose 94 mg/dL 02/02/2021 9:21 AM CDT [facility] Comment: HbA1c Interpretation: Treatment target values recommended by ADA and other clinical organizations should be used to evaluate metabolic control in patients. Treatment Target Values: Normal : < 5.7% Pre-diabetes: 5.7-6.4% Diabetes: Equal to or greater than 6.5% Reference: [place] [employer] Standards of Care in Diabetes -2014 In patients 70 years and older consider HbA1c target range of 7.0-7.5% Reference: ??Diabetes Mellitus in Older People: Position Statement on behalf of the International Association of Gerontology and Geriatrics (IAGG), the Diabetes Working Constitution Party for Older People (EDWPOP), and the International Task Force of Experts in Diabetes. ??Dallin Rodriguez et al. J [employer] [employer] Association. 2012 Test results diagnostic of diabetes should be repeated for confirmation. The Sebia Capillary 2 assay for the measurement of HbA1c is a National Glycohemoglobin Standardization Program (NGSP)certified method. Blood BLOOD SPECIMEN / Unknown Lab Venipuncture / Unknown 02/01/2021 4:15 PM CDT 02/01/2021 4:38 PM CDT Christopher Cortés MD LAB - CHEMIS TRY ORDERABLES Performing Organization Address City/[facility]/ZIP Co de Phone Number [facility] [address] [address], [facility] [phone] * (ABNORMAL) SLIDE SCAN HEMATOLOGY (12/27/2020 2:19 PM CDT) Only the most recent of2 resultswithin the time period is included. Platelet Estimation Normal Normal, Adequate platelets 12/27/2020 3:35 PM CDT [facility] Comment:Manual platelet coun t 225 Clumped Platelets 2+(A) None 12/27/2020 3:35 PM CDT [facility] Blood BLOOD SPECIMEN / Unknown Venipuncture / Unknown 12/27/2020 2:19 PM CDT 12/27/2020 2:22 PM CDT Ben Wilson PA-C LAB - HEMATOLOGY OR DERABLES [facility] [address] [place] [address] * LARYNGEAL MASK AIRWAY (12/25/2020 10:46 AM CDT) Narrative Ariana Koroma APRN-ARTILLERY METEOROLOGICAL MAN - 12/25/2020 10:46 AM CDT Ariana Koroma APRN-ARTILLERY METEOROLOGICAL MAN ? 12/25/2020 10:46 AM LMA Placement Procedure/LDA [...] Staff Section ?? Anesthesia Provider: Ariana Koroma APRN-ARTILLERY METEOROLOGICAL MAN, Performed the procedure Marina Blanca DO GENERAL ANESTHESIA ORDERABLES * NM CYSTOMETROGRAM W/DRIVER MEDIC, NM ANAL/URINARY MUSCLE STUDY (10/20/2020 11:16 AM CDT) [...] * (ABNORMAL) POTASSIUM BLOOD (08/14/2020 11:09 AM UX LEAD) Potassium 2.9(L) 3.5 - 5.1 mmol/L 08/14/2020 11:29 AM UX LEAD [facility] Blood BLOOD SPECIMEN / Unknown Venipuncture / Unknown 08/14/2020 11:09 AM UX LEAD 08/14/2020 11:14 AM UX LEAD Eleazar Thomas DO LAB - CHEMISTRY ORD ERABLES Performing Organization Address City/[facility]/ZIP Co de Phone Number [facility] [address] [place] [address] * SARS-COV-2 (COVID-19) IN HOUSE (08/11/2020 3:30 PM UX LEAD) Only the most recent of3 resultswithin the time period is included. Pathologist [facility] COVID-19 PCR Not detected Not detected 08/12/2020 4:08 AM UX LEAD [facility] Microbiology SPECIMEN FROM NASOPHARYNGEAL STRUCTURE / Unknown Collection / Unknown 08/11/2020 3:30 PM UX LEAD 08/11/2020 3:30 PM UX LEAD Narrative [facility] - 08/12/2020 4:08 AM UX LEAD This nucleic acid amplification assay performance was validated by [facility]. This test has been [...] Cornejo MD LAB - MICROBIOLOGY O RDERABLES [facility] [address] [place] [address], [facility] [phone] * (ABNORMAL) AMYLASE BLOOD (07/31/2020 2:10 PM UX LEAD) Pathologist [facility] Amylase 18(L) 25 - 125 U/L 07/31/2020 9:26 PM UX LEAD [facility] Comment:Attention clinician: Reference Range change. Blood BLOOD SPECIMEN / Unknown 07/31/2020 2:10 PM UX LEAD 07/31/2020 3:36 PM UX LEAD Massiel Melara MD LAB - CHEMISTRY O RDERABLES Performing Organization Address City/State/[facility] Co de Phone Number [facility] [address] [place] [address] * FL WATER SOLUBLE LOWER GI (05/10/2020 11:20 AM UX LEAD) Anatomical Region Laterality Modality Abdomen Radio Fluoroscop y 05/10/2020 11:5 1 AM UX LEAD Narrative 05/10/2020 11:53 AM UX LEAD Water-soluble lower GI Indication for examination: Colonic [...] SPECIALIST (02/16/2020 1:27 PM CDT) Simin Chapman OIL SPRAYER-DATABASE ADMINISTRATION ASSOCIATE OUTPATIENT RE FERRALS * TROPONIN I (01/29/2020 1:16 AM CDT) Only the most recent of17 resultswithin the time period is included. Troponin I 0.012 <0.038 ng/mL 01/29/2020 1:53 AM CDT [facility] Blood BLOOD SPECIMEN / Unknown Lab Venipuncture / Unknown 01/29/2020 1:16 AM CDT 01/29/2020 1:32 AM CDT Kim Parth Jay [facility] LAB - CHEMISTRY ORDERABLES [facility] [address] [address] * CT HEAD WO CONTRAST (01/28/2020 4:47 [...] on 01/28/2020 at 4:58 PM Kim Jay [facility] CT ORDERABLES * ENDOSCOPY, COLON, SCREENING (11/29/2019) Provider Unknown GI PROCEDURE ORDERAB LES * (ABNORMAL) DIFFERENTIAL MANUAL (09/14/2019 6:00 AM CDT) Only the most recent of2 resultswithin the time period is included. WBC Auto 9.0 x10E9/L 09/14/2019 8:20 AM CDT [facility] WBC Corrected 09/14/2019 8:20 AM CDT [facility] nRBC 09/14/2019 8:20 AM CDT [facility] Neutrophil % Manual 70 44 - 73 % 09/14/2019 8:20 AM CDT [facility] Lymphocytes % Manual 14(L) 20 - 43 % 09/14/2019 8:20 AM CDT [facility] Monocytes % Manual 10 5 - 13 % 09/14/2019 8:20 AM CDT [facility] Eosinophils % Manual 1 0 - 6 % 09/14/2019 8:20 AM CDT [facility] Band % Manual 3 0 - 11 % 09/14/2019 8:20 AM CDT [facility] Myelocytes % Manual 2(H) <=0 % 09/14/2019 8:20 AM CDT [facility] Cells Counted 100 # cells 09/14/2019 8:20 AM CDT [facility] RBC Morphology Normal 09/14/2019 8:20 AM CDT [facility] WBC Morph Normal 09/14/2019 8:20 AM CDT [facility] Platelet Estimation Normal 09/14/2019 8:20 AM CDT [facility] Blood BLOOD SPECIMEN / Unknown Lab Venipuncture / Unknown 09/14/2019 6:00 AM CDT 09/14/2019 6:07 AM CDT Danis Kirby MD LAB - HEMATOLOGY ORD ERABLES [facility] [address] [address] * (ABNORMAL) C DIFFICILE GDH AG + TOXIN A+B (09/13/2019 3:16 PM CDT) Only the most recent of2 resultswithin the time period is included. Pathologist [facility] Interpretation C difficile Indeterm inate(A) Negative for toxigenic C. difficile 09/13/2019 10:03 PM CDT [facility] Stool STOOL SPECIMEN / Unknown Collection / Unknown 09/13/2019 3:16 PM CDT 09/13/2019 3:26 PM CDT Narrative [facility] - 09/13/2019 10:03 PM CDT Indeterminate results reflex to a C. difficile by PCR test. See separate report. Danis Kirby MD LAB - MICROBIOLOGY O SARI Performing Organization Address City/[facility]/ZIP Co de Phone Number [facility] [address] [place] [address], [facility] [phone] * C DIFFICILE BY PCR (09/13/2019 3:16 PM CDT) Pathologist [facility] C difficile Toxin B Gene Not detected Not detected, Invalid 09/14/2019 10:03 AM CDT [facility] Stool STOOL SPECIMEN / Unknown Collection / Unknown 09/13/2019 3:16 PM CDT 09/13/2019 3:26 PM CDT Danis Kirby MD LAB - MICROBIOLOGY O SARI Performing Organization Address City/[facility]/ZIP Co de Phone Number [facility] [address] [facility] [place] [address], [facility] [phone] * RESPIRATORY PATHOGEN PANEL BY PCR (09/09/2019 3:34 PM CDT) Pathologist [facility] Adenovirus PCR Not detected Not detected, Invalid, Indeterminate 09/09/2019 8:28 PM CDT [facility] Coronavirus PCR Not detected Not detected, Invalid, Indeterminate 09/09/2019 8:28 PM CDT [facility] Human Metapneumovirus PCR Not detected Not detected, Invalid, Indeterminate 09/09/2019 8:28 PM CDT [facility] Human Rhinovirus/Entero virus PCR Not detected Not detected, Invalid, Indeterminate 09/09/2019 8:28 PM CDT [facility] Influenza A PCR Not detected Not detected, Equivocal, Invalid, Indeterminate 09/09/2019 8:28 PM CDT [facility] Influenza B PCR Not detected Not detected, Invalid, Indeterminate 09/09/2019 8:28 PM CDT [facility] Parainfluenza Virus 1 PCR Not detected Not detected, Invalid, Indeterminate 09/09/2019 8:28 PM CDT [facility] Parainfluenza Virus 2 PCR Not detected Not detected, Invalid, Indeterminate 09/09/2019 8:28 PM CDT [facility] Parainfluenza Virus 3 PCR Not detected Not detected, Invalid, Indeterminate 09/09/2019 8:28 PM CDT [facility] Parainfluenza Virus 4 PCR Not detected Not detected, Invalid, Indeterminate 09/09/2019 8:28 PM CDT [facility] Respiratory Syncytial Virus PCR Not detected Not detected, Invalid, Indeterminate 09/09/2019 8:28 PM CDT [facility] Bordetella pertussis PCR Not detected Not detected, Invalid 09/09/2019 8:28 PM CDT [facility] Chlamydia pneumoniae PCR Not detected Not detected, Invalid, Indeterminate 09/09/2019 8:28 PM T [facility] Mycoplasma pneumoniae PCR Not detected Not detected, Invalid, Indeterminate 09/09/2019 8:28 PM T [facility] Microbiology SPECIMEN FROM NASOPHARYNGEAL STRUCTURE / Unknown Collection / Unknown 09/09/2019 3:34 PM CDT 09/09/2019 3:51 PM CDT Narrative [facility] - 09/09/2019 8:28 PM CDT This test is able to detect the following human coronaviruses: HKU1, NL63, 229E, and OC43. It will NOT detect 2019 Novel Coronavirus (2019-nCoV). If 2019-nCoV is suspected contact Infection Prevention for isolation and testing guidance. Asha Key DO LAB - MICROBIOLOGY O RDERABLES [facility] [address] [place] [address], [facility] [phone] * CULTURE VRE (08/27/2019 4:50 AM UX LEAD) Only the most recent of5 resultswithin the time period is included. Culture Negative for vancomycin-resi stant Enterococci (VRE) KASSY 08/28/2019 1:14 PM UX LEAD [facility] Microbiology ENTIRE RECTUM / Unknown Collection / Unknown 08/27/2019 4:50 AM UX LEAD 08/27/2019 4:57 AM UX LEAD Danis Kirby MD LAB - MICROBIOLOGY O SARI Performing Organization Address [facility] de Phone Number [facility] [address] [place] [address], [facility] [phone] * (ABNORMAL) CULTURE MRSA (08/27/2019 4:50 AM UX LEAD) Only the most recent of10 resultswithin the time period is included. Culture Growth of Staphylococcus aureus methicillin-resist ant (MRSA)(A) KASSY 08/28/2019 1:13 PM UX LEAD [facility] Microbiology ENTIRE RECTUM / Unknown Collection / Unknown 08/27/2019 4:50 AM UX LEAD 08/27/2019 4:57 AM UX LEAD Narrative [facility] - 08/28/2019 1:13 PM UX LEAD Methicillin-resistant Staphylococci (MRSA) are resistant to all currently available beta-lactam antibiotics with the exception of the newer cephalosporins with anti-MRSA activity. Contact precautions required. Danis Kirby MD LAB - MICROBIOLOGY O SARI Performing Organization Address [facility] de Phone Number [facility] [address] [place] [address], [facility] [phone] * (ABNORMAL) PROCALCITONIN LEVEL (08/17/2019 6:18 PM UX LEAD) Procalcitonin 0.10(H) <0.10 ng/mL 08/17/2019 6:58 PM UX LEAD [facility] Blood BLOOD SPECIMEN / Unknown Lab Venipuncture / Unknown 08/17/2019 6:18 PM UX LEAD 08/17/2019 6:21 PM UX LEAD Narrative [facility] - 08/17/2019 6:58 PM UX LEAD The change in procalcitonin (PCT) concentration over [...] Change in Procalcitonin Calculator is available at [email or web address] ?? If clinical picture has not improved and PCT remains high, reevaluate and consider treatment failure or other causes. Mateo Díaz MD LAB - CHEM ISTRY ORDERABLES [facility] [address] [place] [address] * (ABNORMAL) DRUG SCREEN TOX URINE PANEL (08/17/2019 5:02 PM UX LEAD) Only the most recent of2 resultswithin the time period is included. Pathologist [facility] Amphetamines Screen Urine Not detected Not detected 08/17/2019 5:26 PM [facility] Barbiturates Screen Urine Not detected Not detected 08/17/2019 5:26 PM [facility] Benzodiazepines Screen Urine Not detected Not detected 08/17/2019 5:26 PM [facility] Cannabinoids Screen Urine Not detected Not detected 08/17/2019 5:26 PM [facility] Cocaine Screen Urine Not detected Not detected 08/17/2019 5:26 PM [facility] Fentanyl Urine Not detected Not detected 08/17/2019 5:26 PM [facility] Methadone Screen Urine Not detected Not detected 08/17/2019 5:26 PM UX LEAD [facility] Opiate Screen Urine Detected(A) Not detected 08/17/2019 5:26 PM [facility] Phencyclidine Screen Urine Not detected Not detected 08/17/2019 5:26 PM [facility] Urine URINE / Unknown Collection / Unknown 08/17/2019 5:02 PM UX LEAD 08/17/2019 5:05 PM UX LEAD Narrative [facility] - 08/17/2019 5:26 PM UX LEAD This drug screen is designed for MEDICAL [...] URIN E CHEMISTRY ORDERABLES Performing Organization Address City/State/[facility] Co de Phone Number [facility] [address] [place] [address] * (ABNORMAL) C-REACTIVE PROTEIN (08/17/2019 2:10 PM UX LEAD) C-Reactive Protein 3.28(H) <=0.50 mg/dL 08/17/2019 4:39 PM [facility] Blood BLOOD SPECIMEN / Unknown Venipuncture / Unknown 08/17/2019 2:10 PM UX LEAD 08/17/2019 2:14 PM UX LEAD Narrative [facility] - 08/17/2019 4:39 PM UX LEAD Specimen Moderately Hemolyzed Mateo Díaz MD LAB - CHEM ISTRY ORDERABLES Performing Organization Address [facility] [place] Co de Phone Number [facility] [address] [place] [phone] * (ABNORMAL) D-DIMER (08/17/2019 12:55 PM UX LEAD) Only the most recent of2 resultswithin the time period is included. D-Dimer 2.21(H) 0.27 - 0.5 ug/mL FEU 08/17/2019 1:22 PM UX LEAD [facility] Blood BLOOD SPECIMEN / Unknown Venipuncture / Unknown 08/17/2019 12:55 PM UX LEAD 08/17/2019 1:02 PM UX LEAD Narrative [facility] - 08/17/2019 1:22 PM UX LEAD In the absence of clinical symptoms, a value less than or equal to 0.5 mcg/mL FEU significantly decreases the probability of PE/DVT (negative predictive value >95%). 1 mcg/ml FEU = 1 Fibrinogen Equivalent Unit (approximates 0.5 mcg/mL of D- dimer). Tera Herrmann DO LAB - COAGULATION OR DERABLES Performing Organization Address [facility] de Phone Number [facility] [address] [place] [phone] * (ABNORMAL) PT-INR (08/17/2019 12:55 PM UX LEAD) Only the most recent of6 resultswithin the time period is included. PT 16.3(H) 12.1 - 14.8 sec 08/17/2019 1:19 PM UX LEAD [facility] INR 1.3(H) 0.9 - 1.1 08/17/2019 1:19 PM UX LEAD [facility] Blood BLOOD SPECIMEN / Unknown Venipuncture / Unknown 08/17/2019 12:55 PM UX LEAD 08/17/2019 1:02 PM UX LEAD Narrative [facility] - 08/17/2019 1:19 PM UX LEAD Conventional Warfarin Anticoagulant Therapy: INR Reference Range: ??2.0-3.0 Intensive Warfarin Anticoagulant Therapy: INR Reference Range: ? 2.5-3.5 Tera Herrmann DO LAB - COAGULATION OR DERABLES [facility] [address] [address] * Critical Care (08/17/2019 12:15 PM UX LEAD) Narrative Tera Herrmann DO - 08/17/2019 12:15 PM UX LEAD Tera Herrmann DO ? 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 and circulatory failure ??Critical [...] E COLI SHIGA-LIKE TOXIN (08/09/2019 10:01 PM UX LEAD) Culture No growth Salmonella, Shigella, Campylobacter, Escherichia coli O157:h7 or Yersinia KASSY 08/12/2019 12:23 PM UX LEAD [facility] Culture Negative Escherichia coli Shiga-like toxin (NM) KASSY 08/12/2019 12:23 PM UX LEAD [facility] Stool STOOL SPECIMEN / Unknown Collection / Unknown 08/09/2019 10:01 PM UX LEAD 08/10/2019 3:39 AM UX LEAD Kalia Frias MD LAB - MICROBIOLOGY O RDERABLES [facility] [address] [place], [place] [address], [place] [phone] * ENDOSCOPY, COLON, SCREENING (08/03/2019 2:56 PM UX LEAD) Report Endoscopy POC _ Patient Name: Pricila , ??Angelina Orr. ?Procedure Date: 08/03/2019 2:56 PM ? Date [...] oxygen saturations ? were monitored continuously. The [id number] was ? introduced through the anus and [...] Procedure Code(s): ? --- Professional --- ? 49090, Colonoscopy, flexible; diagnostic, including collection of ? specimen(s) by brushing or washing, when performed (separate procedure) ? --- Technical --- ? 82686, Colonoscopy, flexible; diagnostic, including collection of ? [...] abscess ? without bleeding CPT copyright 2017 [employer]. All rights reserved. The codes documented in this report are preliminary and upon perioperative tech review may be revised to meet current compliance requirements. __ Dave Rockwell MD 08/03/2019 3:15:31 PM This report has been signed electronically. Number of Addenda: 0 Note Initiated On: 08/03/2019 2:56 PM Estimated Blood Loss: ? Estimated blood loss: none. [facility] 08/03/2019 2:56 PM UX LEAD Dave Rockwell MD GI PROCEDURE ORDERAB LES [facility] * GROSS + MICRO EXAM (STL) (08/03/2019 2:52 PM UX LEAD) Case Report Surgical Pathology Report ? Case: [id number] ? Authorizing Provider: ??Dave Rockwell MD ?Collected: ? 08/03/2019 02:52 PM ? Ordering Location: ? [facility] ? Received: ?08/04/2019 08:52 AM ? Pathologist: ? Michelle Edmond MD ? Specimens: ?? A) - Antrum Biopsy, antrum and body biopsy ? B) - Polyp Gastric, gastric polyp ? 08/05/2019 4:02 PM [facility] Final Diagnosis A. Stomach, antrum and body, biopsy: - Gastric antral-type and oxyntic-type mucosa with chronic and focal mild active inflammation - No Helicobacter pylori identified B. Gastric polyp, polypectomy: - Gastric fundic gland polyp SD/na 08/05/2019 4:02 PM [facility] Clinical History Generalized abdominal pain, anemia, and constipation 08/05/2019 4:02 PM [facility] Gross Description The specimen [...] entirely as B1 gm/na 08/05/2019 4:02 PM [facility] Microscopic Description B. The H&E sections of the gastric polyp reveal dilated fundic glands in the lamina propria, consistent with fundic gland polyp. There is no evidence of dysplasia or malignancy. SD/na 08/05/2019 4:02 PM [facility] Disclaimer All histochemical and/or immunohistochemical results are interpreted with controls that demonstrate appropriate staining reactions before reporting results. Note on use of immunocytochemistry reagents: This test was developed and its performance characteristic determined by [facility], Department of Laboratory Medicine. It has not been cleared or approved by the U.S. Food and Drug Administration (FDA). The FDA has determined that such clearance or approval is not necessary. The test is used for clinical purpose. It should not be regarded as investigational or for research. This laboratory is certified to perform high complexity testing. 08/05/2019 4:02 PM UX LEAD [facility] Embedded Images 08/05/2019 4:02 PM UX LEAD [facility] Pathology/Cytology GASTRIC ANTRAL BIOPSY SPECIMEN / Unknown 08/03/2019 2:52 PM UX LEAD 08/04/2019 8:52 AM UX LEAD Miscellaneous samples (specimen) GASTRIC POLYP / Unknown 08/03/2019 2:54 PM UX LEAD 08/04/2019 8:52 AM UX LEAD Dave Rockwell MD LAB - PATHOLOGY/CYTO LOGY ORDERABLES [facility] [address] [phone] * EGD (08/03/2019 2:46 PM UX LEAD) Report Endoscopy POC _ Patient Name: Pricila , ??Angelina F. ?Procedure Date: 08/03/2019 2:46 PM ? Date of : 1965 ?Admit Type: Inpatient Age: 53 ? Room: ROOM 1 Gender: Female ?Attending MD: Dave Rockwell MD _ Procedure: ? Upper GI endoscopy Indications: ? Abdominal pain, Anemia Providers: ? Dave Rockwell MD, Liyah Triplett, [...] ? were monitored continuously. The GIF-H190 SN [id number] was ? introduced through the mouth, and [...] Procedure Code(s): ? --- Professional --- ? 25406, Esophagogastroduo denoscopy, flexible, transoral; with biopsy, ? single or multiple ? --- Technical --- ? 76788, Esophagogastroduo denoscopy, flexible, transoral; with biopsy, ? single or multiple Diagnosis Code(s): ? --- Professional --- ? K31.7, Polyp of stomach and duodenum ? R10.9, Unspecified abdominal pain ? D64.9, Anemia, unspecified ? --- Technical --- ? K31.7, Polyp of stomach and duodenum ? R10.9, Unspecified abdominal pain ? D64.9, Anemia, unspecified CPT copyright 2017 [employer]. All rights reserved. The codes documented in this report are preliminary and upon perioperative tech review may be revised to meet current compliance requirements. ___ Dave Rockwell MD 08/03/2019 3:13:17 PM This report has been signed electronically. Number of Addenda: 0 Note Initiated On: 08/03/2019 2:46 PM Estimated Blood Loss: ? Estimated blood loss: none. [facility] 08/03/2019 2:46 PM UX LEAD Dave Rockwell MD GI PROCEDURE ORDERAB LES [facility] * US ABDOMEN LIMITED (08/02/2019 10:10 AM UX LEAD) Only the most recent of2 resultswithin the time period is included. Anatomical Region Laterality Modality Abdomen Ultrasound 08/02/2019 10:3 8 AM UX LEAD Impressions 08/02/2019 10:39 AM UX LEAD The gallbladder is surgically absent. The common bile duct is normal in caliber. Reading Radiologist: Edelmira Sotelo MD on 08/02/2019 at 10:39 AM Narrative 08/02/2019 10:39 AM UX LEAD RIGHT UPPER QUADRANT ULTRASOUND INDICATION: Idiopathic acute [...] * (ABNORMAL) LDH BLOOD (08/01/2019 3:36 AM UX LEAD) LDH 369(H) 125 - 220 U/L 08/01/2019 10:38 AM UX LEAD [facility] Blood BLOOD SPECIMEN / Unknown Lab Venipuncture / Unknown 08/01/2019 3:36 AM UX LEAD 08/01/2019 4:12 AM UX LEAD Diogenes Garcia DO LAB - CHEMISTRY MARKUS VALDEZ [facility] Organization Address City/State/ZIP Co de Phone Number [facility] [address] [facility] [place] [address] * (ABNORMAL) LIPID PROFILE (08/01/2019 3:36 AM UX LEAD) Only the most recent of2 resultswithin the time period is included. Cholesterol 100 <200 mg/dL 08/01/2019 3:16 PM UX LEAD [facility] Triglycerides 88 <150 mg/dL 08/01/2019 3:16 PM UX LEAD [facility] HDL Cholesterol 35(L) >40 mg/dL 0 3:16 PM UX LEAD [facility] LDL Calculated 47 <130 mg/dL 08/01/2019 3:16 PM UX LEAD [facility] VLDL Calculated 18 <=30 mg/dL 0 3:16 PM UX LEAD [facility] Chol HDL Ratio 2.9 <4.5 08/01/2019 3:16 PM UX LEAD [facility] LDL/HDL Ratio 1.4 <5.0 08/01/2019 3:16 PM UX LEAD [facility] Blood BLOOD SPECIMEN / Unknown Lab Venipuncture / Unknown 08/01/2019 3:36 AM UX LEAD 08/01/2019 4:12 AM UX LEAD Diogenes Shyam Garcia DO LAB - CHEMISTRY MARKUS VALDEZ [facility] Organization Address City/State/ZIP Co de Phone Number [facility] [address] [place] [id number] * NM MYOCARD PERFUSION SPECT STRESS AND REST (07/30/2019 10:54 AM UX LEAD) Anatomical Region Laterality Modality Chest Nuclear Digisoni cs 07/30/2019 9:59 AM UX LEAD Narrative Procedure Note Ben Emmanuel MD - 07/30/[address] [address] Nuclear Myocardial Perfusion Report Pat.Name: ANGELINA MOYA Pat.ID: [id number] .Date: 07/30/2019 Refer.MD: Nhung Brody Exam Time: 9:59:00 AM Study Type:Nuclear Myocardial Perfusion Scan Height: 172.72cm Weight: 107.73kg BSA: 2.2 m2 Age: 3 1965,53Y Sex: FEMALE Sonogrphr: YESENIA Martínez Pat. Stat.:Inpatient Room: 4220 Reason for Study: Chest pain, elevated troponin History / Clinical: Hypertension, Hyperlipidemia, Neck pain, IVC filter on 04/03/19 Procedures: Lexiscan Perfusion Scan Race: 2 Visit ID: [id number] Nurse: Priscilla Camarillo RN, BSN Risk Factors:Hypertension, [...] Atropine 0 Rest BP: 106/69 Duration 03:00 NM Int: 192 ms QRS Int: 82 ms [...] 11:45 AM Ben Emmanuel MD Nhung Brody OIL SPRAYER-DATABASE ADMINISTRATION ASSOCIATE [place] ORDERABL ES * STRESS TEST LEXISCAN (NUCLEAR) (07/30/2019 9:56 AM UX LEAD) Stress Test Summary For full formatted report, [...] Referred By: ? Overread By: Ben Emmanuel [facility] 07/30/2019 9:56 AM UX LEAD 07/31/2019 9:20 AM UX LEAD Nhung Brody OIL SPRAYER-DATABASE ADMINISTRATION ASSOCIATE CARDIAC SER VICES ORDERABLES Performing Organization Address [facility]/ZIP Co de Phone Number [facility] * HCG URINE QUALITATIVE (07/29/2019 1:23 AM UX LEAD) hCG Qualitative Urine Negative Negative 07/29/2019 1:33 AM UX LEAD [facility] Urine URINE / Unknown Collection / Unknown 07/29/2019 1:23 AM UX LEAD 07/29/2019 1:27 AM UX LEAD Alfredo Vazquez MD LAB - URINALYSIS OR DERABLES Performing Organization Address [place]/[facility]/ZIP Co de Phone Number [facility] [address] [place] [address] * INFLUENZA A+B ANTIGEN RAPID (05/09/2019 7:32 PM UX LEAD) Only the most recent of2 resultswithin the time period is included. Influenza A Antigen Negative Negative 05/09/2019 8:58 PM UX LEAD [facility] Influenza B Antigen Negative Negative 05/09/2019 8:58 PM UX LEAD [facility] Other SPECIMEN FROM NASAL FOSSAE / Unknown Collection / Unknown 05/09/2019 7:32 PM UX LEAD 05/09/2019 8:37 PM UX LEAD Narrative [facility] - 05/09/2019 8:58 PM UX LEAD ? The sensitivity of rapid tests for [...] height of the influenza season. Phillip Christy OIL SPRAYER-DATABASE ADMINISTRATION ASSOCIATE LAB - MICROBIOLOG Y ORDERABLES Performing Organization Address City/State/[facility] Co de Phone Number [facility] [address] [phone] * XR ANKLE RIGHT 3VW OR MORE (05/02/2019 3:45 PM UX LEAD) Only the most recent of2 resultswithin the time period is included. Anatomical Region Laterality Modality Lower Extremity Radiographic Estephanie ging 05/02/2019 4:35 PM UX LEAD Narrative 05/02/2019 4:36 PM UX LEAD 3 VIEWS RIGHT ANKLE Indication: Right ankle [...] MD on 04/21/2019 at 2:46 PM Phillip Christy OIL SPRAYER-DATABASE ADMINISTRATION ASSOCIATE DIAGNOSTIC IMAGIN G ORDERABLES * (ABNORMAL) VITAMIN D 25-HYDROXY (04/19/2019 5:30 AM CDT) Only the most recent of2 resultswithin the time period is included. Vitamin D, 25 Hydroxy 20.8(L) 30 - 100 ng/mL 04/19/2019 8:17 AM CDT [facility] Blood BLOOD SPECIMEN / Unknown 04/19/2019 5:30 AM CDT 04/19/2019 6:50 AM CDT Narrative [facility] - 04/19/2019 8:17 AM CDT Vitamin D Status: ?Deficiency ? <20 ? ng/mL ?Insufficiency ?? 20-30 ??ng/mL ?Sufficiency ? 30-100 ng/mL ?Toxicity ? >100 ?ng/mL Gena Alas MD LAB - CHEMISTRY MARKUS VALDEZ Performing Organization Address [facility] de Phone Number [facility] [address] [place] [address] * B-TYPE NATRIURETIC PEPTIDE (04/13/2019 2:02 PM CDT) BNP 88 <=100 pg/mL 04/13/2019 2:35 PM CDT [facility] Blood BLOOD SPECIMEN / Unknown Venipuncture / Unknown 04/13/2019 2:02 PM CDT 04/13/2019 2:11 PM CDT Naresh Shaffer MD LAB - CHEMISTRY MARKUS VALDEZ Performing Organization Address [facility] de Phone Number [facility] [address] [place] [address] * CT ANGIO BRAIN NECK STROKE (04/13/2019 [...] basilar artery, and branch vessels of the [place] of [place] are widely patent without evidence [...] basilar artery, and branch vessels of the [place] of [place] are widely patent without evidence [...] - 11.6 sec 04/13/2019 12:54 PM CDT [facility] INR 1.0 0.9 - 1.1 04/13/2019 12:54 PM CDT [facility] PTT <21.0(L) 21.0 - 32.0 sec 04/13/2019 12:54 PM CDT [facility] Blood BLOOD SPECIMEN / Unknown Venipuncture / Unknown 04/13/2019 12:29 PM CDT 04/13/2019 12:32 PM CDT Narrative [facility] - 04/13/2019 12:54 PM CDT Conventional Warfarin Anticoagulant Therapy: INR Reference Range: ??2.0-3.0 Intensive Warfarin Anticoagulant Therapy: INR Reference Range: ? 2.5-3.5 Heparin Therapeutic Range for PTT: 50.5 - 74.3 seconds. Naresh Shaffer MD LAB - COAGULATION OR DERABLES [facility] [address] [phone] * Critical Care (04/13/2019 11:51 AM CDT) [...] - 32.0 sec 04/09/2019 10:59 AM CDT [facility] Blood BLOOD SPECIMEN / Unknown Lab Venipuncture / Unknown 04/09/2019 10:09 AM CDT 04/09/2019 10:18 AM CDT Narrative [facility] - 04/09/2019 10:59 AM CDT Heparin Therapeutic Range for PTT: 50.5 - 74.3 seconds. Felix Sotelo MD LAB - COAGULATI ON ORDERABLES [facility] [address] [place] [address] * XR ABDOMEN KUB (04/07/2019 [...] Procedure Note Arthur Austin MD - 04/06/2019 [place] [address] Upper Extremity Venous Ultrasound Report Pat.Name: ANGELINA MOYA Pat.ID: [id number] .Date: 04/06/2019 Refer.MD: joy Angel Exam Time: 1:29:00 PM Study Type:UE Venous Age: 3 1965,53Y Sex: FEMALE Sonogrphr: Megan Camacho RDMS, RVT Pat. Stat.:Inpatient Room: [facility] Reason for Study: Swelling -Arm/hand, left, Chest pain History / Clinical: Hypertension, Hyperlipidemia, Neck pain, IVC filter on 04/03/19 Procedures: Upper Extremity Venous - Left Race: 2 Visit ID: [id number] ++++++++++++++++++++++++++++++++++++ SUMMARY: ++++++++++++++++++++++++++++++++++++ left cephalic vein thrombus [...] flow. Comments: Technologist findings were given to RN, Kathleen, at 14:00 on 04/06/19. Signed 04/06/2019 02:29 [...] performed with 21-gauge micropuncture needle. A 5 [place]yrgyz sheath was inserted over a Synack wire and connected to a regulated pressurized infusion. A 5 [place]z diagnostic catheter was advanced over the wire and was used to select the following vessels: ?? Bilateral vertebral arteries Bilateral [place] intercostal arteries Bilateral T6-T12 radicular arteries Bilateral L1-Q[place] arteries Bilateral iliac arteries ?? LEFT VERTEBRAL [...] vascular malformation is noted. ?? Lety Lizama OIL SPRAYER-DATABASE ADMINISTRATION ASSOCIATE IR ORDERABLES * VANCOMYCIN LEVEL RANDOM (04/04/2019 11:04 AM CDT) Vancomycin Random 7.8 ug/mL 04/04/2019 11:23 AM CDT [facility] Blood BLOOD SPECIMEN / Unknown Lab Venipuncture / Unknown 04/04/2019 11:04 AM CDT 04/04/2019 11:08 AM CDT Narrative [facility] - 04/04/2019 11:23 AM CDT No reference range available for random Vancomycin levels. All results interpreted by ordering physician. Karly Salazar MD LAB - CHEMISTRY ORD ERABLES [facility] [address] [address] * IR IVC FILTER PLACEMENT (04/03/2019 2:57 PM CDT) Anatomical Region Laterality Modality Abdomen X-Ray Angiograph y 04/03/2019 5:47 PM CDT Impressions 04/03/2019 5:50 PM CDT ??SONOGRAPHICALLY AND FLUOROSCOPICALLY GUIDED PLACEMENT OF AN INFRARENAL IVC FILTER (LG VENATECH) VIA THE INTERNAL JUGULAR VEIN, PERFORMED [...] An exchange was made for a 5 [place]yr[place]z micropuncture system, and a guide wire was [...] An exchange was made for a 5 [place] micropuncture system, and a guide wire was [...] AM CDT Narrative 04/03/2019 4:28 PM CDT ?[facility] ?[address] ?[place], [place] ??[address] ? Lower Extremity Venous Ultrasound Report ? Pat.Name: ??ANGELINA MOYA ? Pat.ID: ?[id number] ? St.Date: ?? 04/03/2019 ? Refer.MD: ??shilpa Gandhi Exam Time: 11:46:00 AM ? Study Type:LE Venous ?Age: ??1965,53Y ? Sex: ? FEMALE ? Sonogrphr: Missy Devlin, RD, RVT ?? Pat. Stat.:Inpatient ? Room: ?3115 ? Reason for Study: + D-Dimer, Pulmonary Embolism History / Clinical: Hypertension, Hyperlipidemia Procedures: ??Lower Extremity Venous - Bilateral Race: ?2 ? Visit ID: ??[id number] ? ++++++++++++++++++++++++++++++++++++ SUMMARY: ++++++++++++++++++++++++++++++++++++ No evidence DVT [...] Procedure Note Alem Mccullough MD - 04/03/2019 [place] [address] Lower Extremity Venous Ultrasound Report Pat.Name: ANGELINA MOYA Pat.ID: [id number] .Date: 04/03/2019 Refer.MD: shilpa Gandhi Exam Time: 11:46:00 AM Study Type:LE Venous Age: 3 1965,53Y Sex: FEMALE Sonogrphr: Missy Devlin RDMS, RVT Pat. Stat.:Inpatient Room: [facility] Reason for Study: + D-Dimer, Pulmonary Embolism History / Clinical: Hypertension, Hyperlipidemia Procedures: Lower Extremity Venous - Bilateral Race: 2 Visit ID: [id number] ++++++++++++++++++++++++++++++++++++ SUMMARY: ++++++++++++++++++++++++++++++++++++ No evidence DVT at [...] 04/03/2019 04:28 PM Alem Mccullough MD Shilpa Gandih MD VASCULAR LAB ORDERABLES * [place] DEBORA [...] CDT) ABO AB 04/02/2019 4:12 PM CDT [facility] Rh Type Negative 04/02/2019 4:12 PM CDT [facility] Blood Bank BLOOD SPECIMEN / Unknown Lab Venipuncture / Unknown 04/02/2019 9:50 AM CDT 04/02/2019 3:47 PM CDT Libby Grewal MD LAB - BLOOD BANK ORD ERABLES [facility] [address] [place] [address] [phone] * (ABNORMAL) LACTIC ACID BLOOD POC VENOUS (03/31/2019 1:48 PM CDT) Lactate iSTAT Venous POCT 3.28(H) 0.70 - 2.10 mmol/L 03/31/2019 2:10 PM CDT [facility] Sample iSTAT EARL 03/31/2019 2:10 PM CDT [facility] Blood BLOOD SPECIMEN / Unknown 03/31/2019 1:48 PM CDT 03/31/2019 2:10 PM CDT Nicole Valladares MD LAB - POINT OF CARE ORDERABLES [facility] [address] [place] [address] * CT CHEST PE (03/31/2019 1:01 PM [...] MD on 03/25/2019 at 7:11 PM Juan NAIK * CT SACROILIAC JOINT BILAT INJECT (03/23/2019 [...] on 03/23/2019 at 3:16 PM Alicia Mccullough OIL SPRAYER-DATABASE ADMINISTRATION ASSOCIATE CT ORDERABLE S * FL FLUORO MYELOGRAM [...] grammatical or syntax problems by a trained senior medical technologist. For questions about the report, please contact [...] grammatical or syntax problems by a trained senior medical technologist. For questions about the report, please contact [...] grammatical or syntax problems by a trained senior medical technologist. For questions about the report, please contact [...] grammatical or syntax problems by a trained senior medical technologist. For questions about the report, please contact [...] on 11/30/2018 at 4:38 PM Philly Shipley OIL SPRAYER-DATABASE ADMINISTRATION ASSOCIATE CT ORDERA BLES * CT CERVICAL SPINE NON CONTRAST (08/25/2018 8:02 PM UX LEAD) Only the most recent of3 resultswithin the time period is included. Anatomical Region Laterality Modality Spine Computed Tomogra phy 08/25/2018 8:20 PM UX LEAD Impressions 08/25/2018 8:23 PM UX LEAD No fracture can be identified. ??Please see above. Reading Radiologist: Freddy Leija MD on 08/25/2018 at 8:23 PM Narrative 08/25/2018 8:23 PM UX LEAD Examination: CT Cervical Spine, without contrast. Information [...] grammatical or syntax problems by a trained senior medical technologist. For questions about the report, please contact [...] grammatical or syntax problems by a trained senior medical technologist. For questions about the report, please contact the Radiology Department. IMPRESSION No fracture can be identified. Please see above. Reading Radiologist: Freddy Leija MD on 08/25/2018 at 8:23 PM Hel[address]io Young MD CT ORDERABLES * XR CLAVICLE RIGHT 2VW (08/25/2018 7:36 PM UX LEAD) Anatomical Region Laterality Modality Upper Extremity, Chest Radiograp hic Imaging 08/25/2018 7:42 PM UX LEAD Impressions 08/25/2018 7:42 PM UX LEAD Negative for fracture at this time.. ?? Please see above discussion. Reading Radiologist: Freddy Leija MD on 08/25/2018 at 7:42 PM Narrative 08/25/2018 7:42 PM UX LEAD Examination: Right clavicle 2 views INDICATION: Cervicalgia . ??Injury. ??Fell. ??Neck pain and clavicle pain.. FINDINGS: ??No fracture can be identified on the current plain films.. . If the patient's symptoms persist or worsen, please consider a higher level imaging study to exclude an occult process. Procedure Note Freddy Leija MD - 08/25/2018 Examination: Right clavicle 2 [...] MD on 04/30/2018 at 1:14 PM Philly Kendra Shipley OIL SPRAYER-DATABASE ADMINISTRATION ASSOCIATE DIAGNOSTI C IMAGING ORDERABLES * XR KNEE [...] on 04/30/2018 at 1:13 PM Philly Shipley OIL SPRAYER-DATABASE ADMINISTRATION ASSOCIATE DIAGNOSTI C IMAGING ORDERABLES * MAMMO BILAT SCREENING (09/18/2017 9:53 AM CDT) Anatomical Region Laterality Modality Breast Bilateral Mammography 09/23/2017 9:20 AM CDT Impressions 09/23/2017 9:22 AM CDT No mammographic evidence of malignancy in either breast. ASSESSMENT: BIRADS Category 2: Benign finding(s). RECOMMENDATION: Bilateral screening mammogram in one year. Thank you for allowing us to participate in the care of your patient. [facility] utilizes [employer] as a reminder system to notify patients of their next recommended mammogram. Narrative 09/23/2017 9:22 AM CDT EXAMINATION: Digital screening mammogram on 09/18/2017. Low-dose full-field digital breast tomosynthesis examination was performed with synthetic 2D images and 3D acquisitions. Computer assisted detection was utilized. PRIOR: Mammogram from [facility] on 11/13/2004. BREAST PARENCHYMAL DENSITY: The breasts are almost entirely fatty. RISK ASSESSMENT CALCULATION: Based on the information provided by your patient, her lifetime risk of breast cancer is average (<15%). Additional quantitative risk model data and patient history details have been scanned as a document/letter in [facility] electronic medical record (media tab). Please note this information is only as accurate as the data entered by the patient. FINDINGS: No suspicious masses, areas of architectural distortion or microcalcifications are evident on synthetic 2D mammogram or tomosynthesis images. ??Postsurgical changes are seen in both breasts. Shilpa Frazier DO MAMMO ORDERABLES * TSH (08/20/2017 12:34 PM UX LEAD) [facility] TSH 1.72 mIU/L [facility] Comment: ?Reference Range ?> or = 20 Years ??0.40-4.50 ? Ranges ?First trimester ?0.26-2.66 ?Second trimester ?? 0.55-2.73 ?Third trimester ?0.43-2.91 Test Performed at: [facility] [address] ??[id number] JIM SAEED DO,MPH Blood BLOOD SPECIMEN / Unknown 08/20/2017 12:34 PM UX LEAD 08/20/2017 12:35 PM UX LEAD Shilpa Frazier DO LAB - CHEMISTRY OR DERABLES [facility] [address] [place] [address] * STREP A SCREEN (05/16/2016) Strep A Rapid POCT Negative Negative Strep A Internal Control Present Lot # [id number] Expiration Date 11/01/2017 Throat ENTIRE THROAT (SURFACE REGION OF NECK) / Unknown 05/16/2016 [facility] - POINT OF CAR E ORDERABLES * INFLUENZA A+B - POINT OF CARE (AMB) (05/16/2016) Influenza A Antigen Rapid Negative Negative Influenza B Antigen Rapid Negative Negative Influenza Internal Control PRESENT NEGATIVE - POSITIVE Influenza Lot Number [id number] Influenza Expiration Date 07/30/2017 Other NASOPHARYNGEAL SWAB / Unknown 05/16/2016 Sue Reza [facility] - POINT OF CAR E [...] Dimas on 12/20/2014 3:56 PM Alicia Mccullough OIL SPRAYER-DATABASE ADMINISTRATION ASSOCIATE MR ORDERABLE S * XR C SPINE [...] DERMATOLOGY (09/10/2013 12:00 AM CDT) Result CASE: [id number] PATIENT: ANGELINA MOYA PATHOLOGIC DIAGNOSIS: Left med [...] out by Aruna Alcaraz M.D. 09/15/2013 11:57:44AM [facility] Comment: Performed at: Dermatopathology Laboratory [facility] - Department of Dermatology [address] [place] [address] 5th [place] [address] Phone number: [phone] FAX: [phone] 09/10/2013 09/14/2013 Historical Provider LAB - PATHOLOGY/C YTOLOGY ORDERABLES Performing Organization Address [facility] Co de Phone Number [facility] [address] [place] [address]. 5th Floor Lab [address] [place], [place] [id number] [place] [address] * (ABNORMAL) CARDIAC MARKER PANEL (07/10/2012 4:40 PM UX LEAD) Troponin I <0.015 <0.100 ng/mL 07/10/2012 5:15 PM UX LEAD [facility] CK 54 35 - 232 U/L 07/10/2012 5:15 PM UX LEAD [facility] CK-MB 0.5 0.0 - 5.0 ng/mL 07/10/2012 5:15 PM UX LEAD [facility] CK Index % 0.9(L) 4.0 - 25.0 % 07/10/2012 5:15 PM UX LEAD [facility] Blood specimen (specimen) BLOOD SPECIMEN / Unknown 07/10/2012 4:40 PM UX LEAD 07/10/2012 4:56 PM UX LEAD Martin Dominguez MD LAB - CHEMISTRY MARKUS VALDEZ Performing Organization Address City/[facility]/ZIP Co de Phone Number [facility] [address] [place] [address] * CT ANGIO CHEST COMB INCLUDE PROC [...] present at the left hilum. Procedure Note Edelmira Sotelo - 03/04/2009 CT PULMONARY ANGIOGRAM Indication: cough, [...] CDT) pH Arterial 7.41 7.35 - 7.45 [facility] pCO2 Arterial 38.2 35 - 45 mm Hg [facility] pO2 Arterial 70.5(L) 80 - 100 mm Hg [facility] HCO3 Arterial 23.9 22 - 26 [facility] Base Excess Arterial -0.4 -2.0 - 2.0 [facility] O2 Saturation Arterial 94.4(L) 97 - 100 % [facility] Mode room ai [facility] Site Right Radial [facility] Stanley's Test Positive [facility] Comment Stanley's Test: elian moreland [address] [facility] ARTERIAL BLOOD SPECIMEN / Unknown 03/02/2009 6:10 PM CDT 03/02/2009 7:04 PM CDT Denys Oneill MD LAB - BLOOD GASES OR DERABLES [facility] [address] [place] [address] * XR CHEST PA AND LATERAL (03/02/2009 [...] as well. Initial interpretation was provided by [facility]. FINDINGS: The vertebral bodies are normally [...] as well. Initial interpretation was provided by [facility]. FINDINGS: The vertebral bodies are normally [...] 11:20 PM CDT) Ethanol <10.0 <10.0 mg/dl [facility] Note Ethanol [facility] Comment: This non-legal serum Alcohol test result is to be used for medical treatment only. BLOOD SPECIMEN / Unknown 01/14/2009 11:20 PM CDT 01/14/2009 11:27 PM CDT Stacey Rivera MD LAB - CHEMISTRY ORD ERABLES [facility] [address] [address] * GROSS + MICRO EXAM (11/02/2001 12:00 [...] OF MOSTLY BRIGHT YELLOWISH ADIPOSE TISSUE. ?? JUVENILE JUSTICE OFFICER SECTIONS ARE SUBMITTED IN CASSETTES A AND [...] ADIPOSE TISSUE AND IS OTHERWISE GROSSLY UNREMARKABLE. ??JUVENILE JUSTICE OFFICER SECTIONS ARE SUBMITTED IN CASSETTES C AND [...] Released By ?DARA PILLAI CPT Code ? 10979 X2 MISCELLANEOUS SAMPLE S / Unknown 11/02/2001 11/02/2001 12:38 PM CDT Historical Provider MD LAB - PATHOLOGY/C YTOLOGY ORDERABLES Care Teams Petroleum Production Engineer Relationship Specialty Start Date End Date Iron Galindo PA-C [address] [facility] [address] [place], [place] [id number] PCP - General Physician Stone Processing Machine Operator 02/12/23 Cresencio Ghosh MD [address] [address] [place] [id number] PCP - Attributed-[facility] P4P 12/29/23 Lidia Barajas MD [address] [facility], [address] Anesthesiology-Pain Management 06/03/19 Shilpa Gandhi MD [address] [address] [place] [address] Oncology 06/03/19
--- OUTSIDE RECORDS SUMMARY | 2024-08-02 22:19 | XMS_ITS | Encounter Summary ---
Author Organization [facility] Address 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) (postinfection)- Primary documented in this encounter Additional Health Concerns Infection Onset Date Last Indicated Resolved Time R/O COVID-19 07/02/2020 07/02/2020 07/02/2020 8:53 PM GRAIN BUYER MRSA Comment:Resolved per Type and Duration of Precautions Recommended for Selected Infections and Conditions document 2023 update 07/02/2020 07/02/2020 03/16/20 24 10:58 AM CDT R/O COVID-19 07/10/2020 07/10/2020 07/10/2020 5:01 PM GRAIN BUYER documented as of this encounter Care Teams Supervisor Pipe Joints Relationship Specialty Start Date End Date Fiordaliza Snell MD PCP - General Family Practice 09/09/22 documented as of this encounter
--- OUTSIDE RECORDS SUMMARY | 2024-08-02 22:19 | XMS_ITS | Encounter Summary ---
Author Organization [facility] Address [address] [facility] [place] [address] Care Team Providers Care Assistant Scientist Name Role Phone Shilpa Frazier DO Primary Care Provider +- [phone] Lidia Barajas MD Unavailable Shilpa Gandhi MD Unavailable Massiel Melara MD Primary Care Provider + -[phone] Shilpa Frazier DO Primary Care Provider + [phone] Iron GalindoC Primary Care Provide r Cresencio Ghosh MD Unavailable +[phone] Encounter Details Date Type Department Care Team (Late st Contact Info) Description 01/23/2015 Therapy Visit EXTERNAL NON-[facility] DEPT Sunny Reynoso MD [address] [address] Social History Tobacco Use Types [...] st Contact Info) Description 08/23/2024 2:30 PM STRATEGIC ACCOUNT EXECUTIVE Appointment [facility] MRI [address] [place] [phone] Panchito Walters DO [address] [place] [address] 09/14/2024 10:00 AM CDT Video Visit [facility] - Pulmonology [address] [place] [address] Cresencio Ghosh MD [address] [facility] [address] [place] [phone] documented as of this encounter Visit Diagnoses Not on filedocumented in this encounter Additional Health Concerns Infection Onset Date Last Indicated Resolved Time MRSA 08/18/2019 08/27/2019 10/07/2019 8:51 AM CDT MRSA Hx Comment:10/07/2019 HX MRSA COLONIZATION; NO NEED FOR ISOLATION AT THIS TIME; ALARM SIGNALER INF PREV [id number] 10/07/2019 10/07/2019 09/05/19 8:37 AM STRATEGIC ACCOUNT EXECUTIVE MRSA 10/07/2019 10/07/2019 01/29/2020 8:33 AM CDT MRSA 01/28/2020 01/28/2020 03/20/2020 7:45 AM CDT COVID-19 Under Investigation 04/06/2020 04/08/2020 04/09/2020 5:20 AM CDT MRSA 04/11/2020 04/11/2020 12/25/2020 9:00 AM CDT COVID-19 Under Investigation 08/07/2020 08/07/2020 08/08/2020 3:45 PM STRATEGIC ACCOUNT EXECUTIVE COVID-19 Under Investigation 08/11/2020 08/11/2020 08/12/2020 4:08 AM STRATEGIC ACCOUNT EXECUTIVE MRSA 05/13/2021 02/05/2022 09/04/2022 8:37 AM STRATEGIC ACCOUNT EXECUTIVE MRSA Hx 09/04/2022 09/04/2022 MDRO Comment:04/01/23 MDRO resolved, ES 02/23/2023 02/23/2023 2023 7:16 AM CDT MDRO Hx 04/01/2023 04/01/2023 MDRO 05/08/2023 05/08/2023 documented as of this encounter Care Teams Assistant Scientist Relationship Specialty Start Date End Date Shilpa Frazier DO [address] [facility] [address] [place] [phone] PCP - General Family Medicine 08/06/17 07/31/20 Massiel Melara MD [address] [place] [address] PCP - General Family Medicine 08/01/20 10/01/20 Shilpa Frazier DO [address] [facility] [address] [place] [phone] PCP - General Family Medicine 10/02/20 10/03/20 Iron Galindo PA-C [address] [facility] [address] [place] [address] PCP - General Physician Ballpoint Pens Assembler 02/12/23 Cresencio Ghosh MD [address] [facility] [address] [place] [phone] PCP - [facility] ST[facility] P4P 12/29/23 Lidia Barajas MD [address] [facility], [address] Anesthesiology-Pain Management 06/03/19 Shilpa Gandhi MD [address] [facility] [address] [place] [address] Oncology 06/03/19 documented as of this encounter
--- OUTSIDE RECORDS SUMMARY | 2024-08-02 22:19 | XMS_ITS | Encounter Summary ---
Author Organization [facility] Address [address] [place] [address] Care Team Providers Care Recreation Program Specialist Name Role Phone Fiordaliza Snell MD Primary [...] on file Legal Sex Female 2:43 AM FRAMEMAN Gender Identity Not on file Sexual Orientation Not on file documented as of this encounter Plan of Treatment Not on file documented as of this encounter Visit Diagnoses Diagnosis Unspecified symptom associated with female genital organs- Primary documented in this encounter Additional Health Concerns Infection Onset Date Last Indicated Resolved Time R/O COVID-19 07/02/2020 07/02/2020 07/02/2020 8:53 PM FRAMEMAN MRSA Comment:Resolved per Type and Duration of Precautions Recommended for Selected Infections and Conditions document 2023 update 07/02/2020 07/02/2020 03/16/20 24 10:58 AM CDT R/O COVID-19 07/10/2020 07/10/2020 07/10/2020 5:01 PM FRAMEMAN documented as of this encounter Care Teams Recreation Program Specialist Relationship Specialty Start Date End Date Fiordaliza Snell MD PCP - General Family Practice 09/09/22 documented as of this encounter
--- OUTSIDE RECORDS SUMMARY | 2024-08-02 22:19 | XMS_ITS | Encounter Summary ---
Author Organization [facility] Address [address] [place] [address] Care Team Providers Care Dynamite Cartridge Crimper Name Role Phone Fiordaliza Snell MD Primary Care Provider Encounter Details Date Type Department Care Team (Late st Contact Info) Description 03/12/1999 Outpatient Historical [facility] Ankita Nelson MD NO ADDRESS ON FILE Er, Authorized P NO ADDRESS ON FILE Lumbago (Primary Dx) Social History Tobacco Use Types Packs/Day Years Used Date Smoking Tobacco: Never Assessed Comments Unknown Sex and Gender Information Value Date Recorded Sex Assigned at Not on file Legal Sex Female 2:43 AM RUSTIC TERRAZZO SETTER Gender Identity Not on file Sexual Orientation Not on file documented as of this encounter Plan of Treatment Not on file documented as of this encounter Visit Diagnoses Diagnosis Lumbago- Primary documented in this encounter Additional Health Concerns Infection Onset Date Last Indicated Resolved Time R/O COVID-19 07/02/2020 07/02/2020 07/02/2020 8:53 PM RUSTIC TERRAZZO SETTER MRSA Comment:Resolved per Type and Duration of Precautions Recommended for Selected Infections and Conditions document 2023 update 07/02/2020 07/02/2020 03/16/20 24 10:58 AM CDT R/O COVID-19 07/10/2020 07/10/2020 07/10/2020 5:01 PM RUSTIC TERRAZZO SETTER documented as of this encounter Care Teams Dynamite Cartridge Crimper Relationship Specialty Start Date End Date Fiordaliza Snell MD PCP - General Family Practice 09/09/22 documented as of this encounter
--- OUTSIDE RECORDS SUMMARY | 2024-08-02 22:19 | XMS_ITS | Encounter Summary ---
Author Organization [facility] Address [address] [place] [address] Care Team Providers Care Exhibit Artist Name Role Phone Fiordaliza Snell MD Primary [...] on file Legal Sex Female 2:43 AM CHILDCARE CENTER ADMINISTRATOR Gender Identity Not on file Sexual Orientation Not on file documented as of this encounter Plan of Treatment Not on file documented as of this encounter Visit Diagnoses Diagnosis Abdominal pain, unspecified site- Primary documented in this encounter Additional Health Concerns Infection Onset Date Last Indicated Resolved Time R/O COVID-19 07/02/2020 07/02/2020 07/02/2020 8:53 PM CHILDCARE CENTER ADMINISTRATOR MRSA Comment:Resolved per Type and Duration of Precautions Recommended for Selected Infections and Conditions document 2023 update 07/02/2020 07/02/2020 03/16/20 24 10:58 AM CDT R/O COVID-19 07/10/2020 07/10/2020 07/10/2020 5:01 PM CHILDCARE CENTER ADMINISTRATOR documented as of this encounter Care Teams Exhibit Artist Relationship Specialty Start Date End Date Fiordaliza Snell MD PCP - General Family Practice 09/09/22 documented as of this encounter
--- OUTSIDE RECORDS SUMMARY | 2024-08-02 22:19 | XMS_ITS | Encounter Summary ---
Author Organization [facility] Address [address] [place] [address] Care Team Providers Care Correctional Substance Abuse Counselor Name Role Phone Shilpa Frazier DO Primary Care Provider Lidia Barajas MD Unavailable Ab Melara MD Primary Care Provid er Encounter Details Date Type Department Care Team (Late st Contact Info) Description 03/15/2019 Telephone [facility] - Interventional Radiology [address] [place] [address] Philly Aguirre RN Social History [...] on file Legal Sex Female 11:49 PM PUBLIC AFFAIRS MANAGER Gender Identity Not on file Sexual Orientation [...] DT MRSA 12/27/2021 03/06/2022 09/02/2022 3:05 AM PUBLIC AFFAIRS MANAGER documented as of this encounter Care Teams Correctional Substance Abuse Counselor Relationship Specialty Start Date End Date Shilpa Frazier DO PCP - General 06/12/18 07/15/21 Ab Melara MD [address] [address] PCP - General Family Medicine 07/16/21 Lidia Barajas MD Anesthesiologist Anesthesiology 01/13/20 documented as of this encounter
--- OUTSIDE RECORDS SUMMARY | 2024-08-02 22:19 | XMS_ITS | Encounter Summary ---
Author Organization [facility] Healthcare Address [address] [place] [address] Care Team Providers Care Cash Poster Name Role Phone Shilpa Frazier DO Primary Care Provider Lidia Barajas MD Unavailable Ab Melara MD Primary Care Provid er Encounter Details Date Type Department Care Team (Late st Contact Info) Description 04/24/[address] [facility] [address] [facility] [address] [place] [address] Tori Arias RN Social History Tobacco Use Types Packs/Day [...] on file Legal Sex Female 11:49 PM OPERATING ROOM TECHNICIAN Gender Identity Not on file Sexual [...] DT MRSA 12/27/2021 03/06/2022 09/02/2022 3:05 AM OPERATING ROOM TECHNICIAN documented as of this encounter Care Teams Cash Poster Relationship Specialty Start Date End Date Shilpa Frazier DO PCP - General 06/12/18 07/15/21 Ab Melara MD [address] [address] PCP - General Family Medicine 07/16/21 Lidia Barajas MD Anesthesiologist Anesthesiology 01/13/20 documented as of this encounter
--- OUTSIDE RECORDS SUMMARY | 2024-08-02 22:19 | XMS_ITS | Encounter Summary ---
Author Organization [facility] Address [address] [place] [address] Care Team Providers Care Clinical Staff Rn Name Role Phone Fiordaliza Snell MD Primary [...] on file Legal Sex Female 2:43 AM PATIENT COORDINATOR FRONT DESK Gender Identity Not on file Sexual Orientation Not on file documented as of this encounter Plan of Treatment Not on file documented as of this encounter Visit Diagnoses Diagnosis Surgical or other procedure not carried out because of patient's decision- Primary documented in this encounter Additional Health Concerns Infection Onset Date Last Indicated Resolved Time R/O COVID-19 07/02/2020 07/02/2020 07/02/2020 8:53 PM PATIENT COORDINATOR FRONT DESK MRSA Comment:Resolved per Type and Duration of Precautions Recommended for Selected Infections and Conditions document 2023 update 07/02/2020 07/02/2020 03/16/20 24 10:58 AM CDT R/O COVID-19 07/10/2020 07/10/2020 07/10/2020 5:01 PM PATIENT COORDINATOR FRONT DESK documented as of this encounter Care Teams Clinical Staff Rn Relationship Specialty Start Date End Date Fiordaliza Snell MD PCP - General Family Practice 09/09/22 documented as of this encounter
--- OUTSIDE RECORDS SUMMARY | 2024-08-02 22:19 | XMS_ITS | Encounter Summary ---
Author Organization [facility] Address [address] [place] [address] Care Team Providers Care Testing And Regulating Chief Name Role Phone Fiordaliza Snell MD Primary [...] on file Legal Sex Female 2:43 AM MEAL COOK Gender Identity Not on file Sexual Orientation Not on file documented as of this encounter Plan of Treatment Not on file documented as of this encounter Visit Diagnoses Diagnosis Excessive or frequent menstruation- Primary documented in this encounter Additional Health Concerns Infection Onset Date Last Indicated Resolved Time R/O COVID-19 07/02/2020 07/02/2020 07/02/2020 8:53 PM MEAL COOK MRSA Comment:Resolved per Type and Duration of Precautions Recommended for Selected Infections and Conditions document 2023 update 07/02/2020 07/02/2020 03/16/20 24 10:58 AM CDT R/O COVID-19 07/10/2020 07/10/2020 07/10/2020 5:01 PM MEAL COOK documented as of this encounter Care Teams Testing And Regulating Chief Relationship Specialty Start Date End Date Fiordaliza Snell MD PCP - General Family Practice 09/09/22 documented as of this encounter
--- OUTSIDE RECORDS SUMMARY | 2024-08-02 22:19 | XMS_ITS | Encounter Summary ---
Author Organization [facility] Healthcare Address [address] [place] [address] Care Team Providers Care Instructional Coach Name Role Phone Shilpa Fraziermeera PEREZ Primary Care Provider Lidia Barajas MD Unavailable Ab Melara MD Primary Care Provid er Reason for Visit * Reason Onset Date Comments PRECALL ANTICOAG 02/18/2020 Encounter Details Date Type Department Care Team (Late st Contact Info) Description 02/18/2020 Telephone [facility] at [facility] [address] [facility] 1st [place] [address] Tori Arias RN PRECALL ANTICOAG Social History Tobacco Use Types Packs/Day Years [...] on file Legal Sex Female 11:49 PM DRIP PUMPER Gender Identity Not on file Sexual Orientation [...] DT MRSA 12/27/2021 03/06/2022 09/02/2022 3:05 AM DRIP PUMPER documented as of this encounter Care Teams Instructional Coach Relationship Specialty Start Date End Date Shilpa Frazier DO PCP - General 06/12/18 07/15/21 Ab Melara MD [address] [address] PCP - General Family Medicine 07/16/21 Lidia Barajas MD Anesthesiologist Anesthesiology 01/13/20 documented as of this encounter
--- NOTE | 2024-08-02 22:27 | ECG_ITS ---
Test Date: 2024-08-02 22:33:20 Measurements Intervals Anton Rate: 98 P: 59 NE: 202 QRS: 30 QRSD: 96 T: 31 QT: 372 QTc: 475 Interpretive Statements SINUS RHYTHM BORDERLINE AV CONDUCTION DELAY BORDERLINE ST ABNORMALITY- DIFFUSE LEADS BASELINE ARTIFACT- I, III, AVL BORDERLINE ECG Compared to ECG 07/28/2024 13:38:21 NO SIGNIFICANT CHANGE Electronically Signed On 08-03-2024 07:10:36 SENIOR TERADATA DEVELOPER by Arjun Handley D.O.
[2024-08-02 22:28] VITALS: BP 183/102; PULSE 90; RESP 15; TEMP 35.9; O2SAT 100
[2024-08-03 02:52] LABS: Basophils Absolute Auto 0.1 K/mm3 (0.0-0.1); Basophils Percent Auto 1.1 % (0.2-1.2); Eosinophils Absolute Auto 0.2 K/mm3 (0-0.3); Eosinophils Percent Auto 2.8 % (0-4.4); Hematocrit 36.9 % (37.0-47.0); Hemoglobin 12.5 g/dL (12.0-15.0); Immature Granulocyte Absolute 0.03 K/mm3 (0.00-0.031); Immature Granulocyte Percent A 0.5 % (0-0.5); Lymphocytes Absolute Auto 1.73 K/mm3 (0.9-3.2); Lymphocytes Percent Auto 30.3 % (18.3-44.2); Mean Corpuscular HGB Conc 33.9 g/dl (32-36); Mean Corpuscular Hemoglobin 28.7 pg (26-34); Mean Corpuscular Volume 84.6 fl (80-100); Mean Platelet Volume 8.7 fl (7.4-10.4); Monocytes Absolute Auto 0.5 K/mm3 (0.1-0.6); Monocytes Percent Auto 8.8 % (2.6-8.5); Neutrophils Absolute Auto 3.2 K/mm3 (1.3-6.7); Neutrophils Percent Auto 56.5 % (45.5-73.1); Platelet Count Result 188 k/mm3 (150-375); Red Blood Count 4.36 M/mm3 (4.2-5.4); Red Cell Distribution Width 13.6 % (11.5-14.5); White Blood Count 5.7 K/mm3 (4.5-10.0)
[2024-08-03 03:02] LABS: Alanine Aminotransferase 51 U/L (6-35); Albumin Level 3.7 g/dL (3.5-5.1); Alkaline Phosphatase 74 U/L (38-126); Anion Gap 7 mmol/L (4-12); Aspartate Amino Transferase 42 U/L (14-36); Bilirubin,Total 0.8 mg/dL (0.2-1.3); Blood Urea Nitrogen 15 mg/dL (7-17); Calcium 8.5 mg/dL (8.4-10.2); Carbon Dioxide 31 mmol/L (22-30); Chloride 101 mmol/L (98-107); Estimated CRCL calculation 115 ml/min; Estimated Glomerular Filt Rate > 60; Glucose 115 mg/dL (65-110); Potassium 3.4 mmol/L (3.4-5.0); Prothrombin Time 13.9 Seconds (11.1-14.7); Sodium 139 mmol/L (137-145)
[2024-08-03 03:03] LABS: Partial Thromboplastin Time 27.7 Seconds (22.3-36.8)
[2024-08-03 03:14] LABS: NT Pro B Type Natriuretic Pept 567 pg/mL (19.9-100); Troponin I < 0.012 ng/mL (0.000-0.034)
[2024-08-03 03:33] VITALS: BP 134/64; PULSE 95; RESP 18; O2SAT 97
[2024-08-03] MEDS: MORPHINE SULFATE (*CRX) 4 MG/ML INJ IV PUSH ×2 (04:06→06:42)
--- NOTE | 2024-08-03 05:16 | ED_ITS ---
HPI - General Adult General Chief complaint: Shortness of Breath/Dyspnea Stated complaint: SOB, weakness, dizzy, light headed Time Seen by Provider: 08/03/24 03:52 History of Present Illness HPI narrative: Patient is a 58-year-old female who presents emergency department with chief complaint of lower extremity edema and chest discomfort and shortness of breath. Patient reports that she was discharged the hospital recently after being in the hospital for 11 days the patient states that since then she has been having increasing edema in her lower extremities and reports she has had discomfort in her chest the patient states she is concerned that she may have a pulmonary embolism Related Data Home Medications ?Medication ?Instructions ?Recorded ?Confirmed ?Last Taken ?Type polyethylene glycol 3350 17 gram 17 g PO DAILY PRN constipation 07/20/24 07/20/24 07/19/24 History oral powder packet (Miralax) sennosides 8.6 mg-docusate sodium 1 tab-cap PO BID PRN constipation 07/20/24 07/20/24 07/19/24 History 50 mg tablet (Senokot-S) Allergies Allergy/AdvReac Type Severity Reaction Status Date / Time Penicillins Allergy Intermediate Hives Verified 07/26/24 12:43 vancomycin Allergy Intermediate Hives Verified 07/26/24 12:43 adhesive tape Allergy Unknown Unknown Verified 07/26/24 12:43 Sulfa (Sulfonamide Allergy Unknown Unknown Verified 07/20/24 11:32 Antibiotics) latex Allergy Unknown Unknown Uncoded 07/20/24 11:32 Review of Systems 2 Review of Systems: A 10 system review of systems was completed on the patient and is negative except for what is stated in the HPI. Nursing and ancillary documentation was reviewed. [facility] Past Medical History Medical History Sleep apnea History of MRSA infection Depression Anemia Fibromyalgia Scoliosis DDD (degenerative disc disease) Arthritis Irritable bowel Hemorrhoids GERD (gastroesophageal reflux disease) Asthma HLD (hyperlipidemia) Heart murmur CHF (congestive heart failure) Atrial fibrillation Anxiety Insomnia Obesity (BMI 30-39.9) Paraplegia PTSD (post-traumatic stress disorder) Stroke Hypertension Allergies Surgical History Surgical History History of tonsillectomy History of total cystectomy History of hernia repair History of cholecystectomy History of appendectomy History of cardiac catheterization History of ileal conduit History of back surgery Family History Family History Father Hypertension Cancer Mother Cancer Hypertension Anxiety Grandparent Cancer Social History Social History Smoking status: Never smoker Alcohol intake: never Substance use: never Substance use type: does not use Do You Feel Safe in your Home?: Yes Lack of Transportation: No Lack of Food: Never True Current Housing: I Have Housing Concerned About Future Housing: No Difficulty Paying Gas/Electric Bills: No Difficulty Paying for Meds: No Currently Unemployed: No Education: High School Diploma/GED Difficulty w/ Childcare or Family Care: No Spiritual care concerns: No Exam 2 Narrative: GENERAL: Well-appearing, well-nourished, and in no acute distress. HEAD: Normocephalic, atraumatic. EYES: PERRLA and EOMI. ENT: Nares clear, no rhinorrhea or epistaxis. Mucous membranes moist. NECK: Supple. CHEST: Clear to auscultation. No respiratory distress. HEART: Regular rate and rhythm. No murmur heard. Normal peripheral pulses. ABDOMEN: Soft, nontender, nondistended, normal active bowel sounds. EXTREMITIES: Normal range of motion. 2+ edema. SKIN: Warm, dry, no rash. NEURO: No focal deficits. Alert and oriented x3. PSYCH: Normal mood and affect. Course Vital Signs Vital signs: Vital Signs Temperature 35.9 C L 08/02/24 22:28 Pulse Rate 90 08/02/24 22:28 Respiratory Rate 15 08/02/24 22:28 Blood Pressure 183/102 H 08/02/24 22:28 Pulse Oximetry 100 08/02/24 22:28 Oxygen Delivery Room Air 08/02/24 22:28 Temperature 35.9 C L 08/02/24 22:28 Pulse Rate 95 08/03/24 03:33 Respiratory Rate 18 08/03/24 03:33 Blood Pressure 134/64 08/03/24 03:33 Pulse Oximetry 97 08/03/24 03:33 Oxygen Delivery Room Air 08/02/24 22:28 Medical Decision Making MDM Narrative Medical decision making narrative: Diff diagnosis includes lymphedema, pulmonary edema, renal failure, CT scan of the chest abdomen pelvis showed no evidence of pulmonary embolism Laboratory studies were obtained that showed a normal CBC CMP was within normal limits troponin was negative BNP was 567 Case was discussed with hospitalist patient received further care the inpatient setting Vital Signs Vital Signs: Vital Signs Temperature 35.9 C L 08/02/24 22:28 Pulse Rate 90 08/02/24 22:28 Respiratory Rate 15 08/02/24 22:28 Blood Pressure 183/102 H 08/02/24 22:28 Pulse Oximetry 100 08/02/24 22:28 Oxygen Delivery Room Air 08/02/24 22:28 Temperature 35.9 C L 08/02/24 22:28 Pulse Rate 95 08/03/24 03:33 Respiratory Rate 18 08/03/24 03:33 Blood Pressure 134/64 08/03/24 03:33 Pulse Oximetry 97 08/03/24 03:33 Oxygen Delivery Room Air 08/02/24 22:28 Lab Data 08/03/24 02:46 08/03/24 02:46 Labs: Lab Results 08/03/24 Range/Units 02:46 WBC 5.7 (4.5-10.0) K/mm3 RBC 4.36 (4.2-5.4) M/mm3 Hgb 12.5 (12.0-15.0) g/dL Hct 36.9 L (37.0-47.0) % MCV 84.6 (80-100) fl MCH 28.7 (26-34) pg MCHC 33.9 (32-36) g/dl RDW 13.6 (11.5-14.5) % Plt Count 188 (150-375) k/mm3 MPV 8.7 (7.4-10.4) fl Immature Gran % (Auto) 0.5 (0-0.5) % Neut % (Auto) 56.5 (45.5-73.1) % Lymph % (Auto) 30.3 (18.3-44.2) % Lyman % (Auto) 8.8 H (2.6-8.5) % Eos % (Auto) 2.8 (0-4.4) % Baso % (Auto) 1.1 (0.2-1.2) % Lymph # (Auto) 1.73 (0.9-3.2) K/mm3 Lyman # (Auto) 0.5 (0.1-0.6) K/mm3 Eos # (Auto) 0.2 (0-0.3) K/mm3 Baso # (Auto) 0.1 (0.0-0.1) K/mm3 Abs Immat Gran (auto) 0.03 (0.00-0.031) K/mm3 Absolute Neuts (auto) 3.2 (1.3-6.7) K/mm3 Absolute Nucleated RBC 0.000 (0.0-0.012) K/mm3 Nucleated RBC % 0.0 (0.0-0.2) % PT 13.9 (11.1-14.7) Seconds INR 1.0 APTT 27.7 (22.3-36.8) Seconds Sodium 139 (137-145) mmol/L Potassium 3.4 (3.4-5.0) mmol/L Chloride 101 (98-107) mmol/L Carbon Dioxide 31 H (22-30) mmol/L Anion Gap 7 (4-12) mmol/L BUN 15 (7-17) mg/dL Creatinine 0.58 L (0.7-1.0) mg/dL Estim Creat Clear Calc 115 ml/min Estimated GFR > 60 (59 - ) Glucose 115 H (65-110) mg/dL Calcium 8.5 (8.4-10.2) mg/dL Total Bilirubin 0.8 (0.2-1.3) mg/dL AST 42 H (14-36) U/L ALT 51 H (6-35) U/L Alkaline Phosphatase 74 (38-126) U/L Troponin I < 0.012 (0.000-0.034) ng/mL NT-Pro-B Natriuret Pep 567 H (19.9-100) pg/mL Total Protein 7.0 (6.3-8.2) g/dL Albumin 3.7 (3.5-5.1) g/dL Discharge Plan Discharge Clinical Impression: Edema, peripheral Patient Disposition: Still a Patient Condition: Stable Patient Language: [place] Prescriptions: No Action polyethylene glycol 3350 [Miralax] 17 gram Powder In Packet 17 g PO DAILY PRN (Reason: constipation) sennosides-docusate sodium [Senokot-S] 8.6-50 mg Tablet 1 tab-cap PO BID PRN (Reason: constipation) linezolid 600 mg Tablet 600 mg PO Q12HR Qty: 8 0RF diclofenac sodium [Voltaren Arthritis Pain] 1 % gel 2 g topical QID Qty: 100 1RF Rx Instructions: apply to single elbow, wrist or hand; for hand includes palm/fingers/back of hand alprazolam 0.25 mg tablet 0.25 mg PO TID PRN (Reason: anxiety) Qty: 60 0RF olanzapine 5 mg tablet 5 mg PO DAILY Qty: 30 0RF zolpidem [Ambien] 5 mg tablet 5 mg PO QHS Qty: 30 0RF losartan 100 mg tablet 100 mg PO DAILY Qty: 90 1RF escitalopram oxalate 20 mg tablet 20 mg PO DAILY Qty: 90 1RF metoprolol succinate 25 mg tablet extended release 24 hr 12.5 mg PO DAILY Qty: 45 1RF atorvastatin 10 mg tablet 10 mg PO DAILY Qty: 90 1RF gabapentin 300 mg capsule 900 mg PO TID Qty: 270 2RF furosemide 20 mg tablet 20 mg PO QAM Qty: 90 2RF aspirin [Adult Low Dose Aspirin] 81 mg tablet,delayed release (DR/EC) 81 mg PO DAILY Qty: 90 2RF ondansetron 4 mg tablet,disintegrating 4 mg PO Q8H PRN (Reason: nausea and vomiting) Qty: 20 0RF ropinirole 0.5 mg tablet 0.5 mg PO BID Qty: 180 2RF hydrocodone-acetaminophen 5-325 mg tablet 1 tablet PO Q8H PRN (Reason: pain) Qty: 30 0RF baclofen 20 mg tablet 20 mg PO TID PRN (Reason: muscle spasm) Qty: 90 0RF Follow-up/Referrals: Panchito Walters DO [Primary Care Provider] - Time of Disposition: 06:48
--- OUTSIDE RECORDS SUMMARY | 2024-08-03 05:34 | XMS_ITS | Encounter Summary ---
Author Organization [facility] Healthcare Address [address] [place] [address] Care Team Providers Care Party Plan Sales Unit Sales Leader Name Role Phone Unknown, Notinfile Primary Care Provider Unavail able Shilpa Frazier DO Primary Care Provider Lidia Barajas MD Unavailable Ab Melara MD Primary Care Provid er Encounter Details Date Type Department Care Team (Late st Contact Info) Description 04/07/2018 Telephone [facility] [address]st [place] [address] Kate Johnson, RT Social History Tobacco Use Types Packs/Day Years Used Date Smoking Tobacco: Never Smokeless Tobacco: Never Alcohol Use Standard Drinks/Week Comments No 0 (1 standard drink = 0.6 oz pur e alcohol) Comments No Sex and Gender Information Value Date Recorded Sex Assigned at Not on file Legal Sex Female 11:49 PM GEL COAT SPRAYER Gender Identity Not on file Sexual Orientation [...] DT MRSA 12/27/2021 03/06/2022 09/02/2022 3:05 AM GEL COAT SPRAYER documented as of this encounter Care Teams Party Plan Sales Unit Sales Leader Relationship Specialty Start Date End Date Unknown, Notinfile PCP - General 08/28/17 06/11/18 Shilpa Frazier DO PCP - General 06/12/18 07/15/21 Ab Melara MD [address] [address] PCP - General Family Medicine 07/16/21 Lidia Barajas MD Anesthesiologist Anesthesiology 01/13/20 documented as of this encounter
--- OUTSIDE RECORDS SUMMARY | 2024-08-03 05:34 | XMS_ITS | Encounter Summary ---
Author Organization [facility] Healthcare Address [address] [place] [address] Care Team Providers Care Salesman/Owner Name Role Phone Shilpa Frazier DO Primary Care Provider Lidia Barajas MD Unavailable Ab Melara MD Primary Care Provid er Encounter Details Date Type Department Care Team (Late st Contact Info) Description 06/15/2018 Telephone [facility] [address]st [place] [address] Emil Clarke, RT Social History Tobacco Use Types Packs/Day Years Used Date Smoking Tobacco: Never Smokeless Tobacco: Never Alcohol Use Standard Drinks/Week Comments No 0 (1 standard drink = 0.6 oz pur e alcohol) Comments No Sex and Gender Information Value Date Recorded Sex Assigned at Not on file Legal Sex Female 11:49 PM LEGAL SERVICES PROFESSIONAL Gender Identity Not on file Sexual Orientation [...] DT MRSA 12/27/2021 03/06/2022 09/02/2022 3:05 AM LEGAL SERVICES PROFESSIONAL documented as of this encounter Care Teams Salesman/Owner Relationship Specialty Start Date End Date Frazier Shilpaolimpia Law DO PCP - General 06/12/18 07/15/21 Ab Melara MD [address] [address] PCP - General Family Medicine 07/16/21 Lidia Barajas MD Anesthesiologist Anesthesiology 01/13/20 documented as of this encounter
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
--- OUTSIDE RECORDS SUMMARY | 2024-08-03 05:35 | XMS_ITS | Encounter Summary ---
Author Organization [facility] Address [address] [place] [address] Care Team Providers Care Print Shop Helper Name Role Phone Fiordaliza Snell MD Primary Care Provider Encounter Details Date Type Department Care Team (Late st Contact Info) Description 04/18/2003 Outpatient Historical [facility] Otilia Florentino MD [address] [place] [id number] [place], Authorized P NO ADDRESS ON FILE ABDOMINAL PAIN RLQ (Primary Dx) Social History Tobacco Use Types Packs/Day Years Used Date Smoking Tobacco: Never Assessed Comments Unknown Sex and Gender Information Value Date Recorded Sex Assigned at Not on file Legal Sex Female 2:43 AM BEHAVIORAL SCIENTIST Gender Identity Not on file Sexual Orientation Not on file documented as of this encounter Plan of Treatment Not on file documented as of this encounter Visit Diagnoses Diagnosis Abdominal pain, right lower quadrant- Primary documented in this encounter Additional Health Concerns Infection Onset Date Last Indicated Resolved Time R/O COVID-19 07/02/2020 07/02/2020 07/02/2020 8:53 PM BEHAVIORAL SCIENTIST MRSA Comment:Resolved per Type and Duration of Precautions Recommended for Selected Infections and Conditions document 2023 update 07/02/2020 07/02/2020 03/16/20 24 10:58 AM CDT R/O COVID-19 07/10/2020 07/10/2020 07/10/2020 5:01 PM BEHAVIORAL SCIENTIST documented as of this encounter Care Teams Print Shop Helper Relationship Specialty Start Date End Date Fiordaliza Snell MD PCP - General Family Practice 09/09/22 documented as of this encounter
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
--- OUTSIDE RECORDS SUMMARY | 2024-08-03 05:35 | XMS_ITS | Encounter Summary ---
Author Organization [facility] Address [address] [place] [address] Care Team Providers Care Leather Scraper Name Role Phone Fiordaliza Snell MD Primary Care Provider Encounter Details Date Type Department Care Team (Late st Contact Info) Description 10/10/2003 Outpatient Historical [facility] Franki Grimes, DO [address] [place] [address] [place], Authorized P NO ADDRESS ON FILE LUMBAGO (Primary Dx) Social History Tobacco Use Types Packs/Day Years Used Date Smoking Tobacco: Never Assessed Comments Unknown Sex and Gender Information Value Date Recorded Sex Assigned at Not on file Legal Sex Female 2:43 AM BOILER TESTER Gender Identity Not on file Sexual Orientation Not on file documented as of this encounter Plan of Treatment Not on file documented as of this encounter Visit Diagnoses Diagnosis Lumbago- Primary documented in this encounter Additional Health Concerns Infection Onset Date Last Indicated Resolved Time R/O COVID-19 07/02/2020 07/02/2020 07/02/2020 8:53 PM BOILER TESTER MRSA Comment:Resolved per Type and Duration of Precautions Recommended for Selected Infections and Conditions document 2023 update 07/02/2020 07/02/2020 03/16/20 24 10:58 AM CDT R/O COVID-19 07/10/2020 07/10/2020 07/10/2020 5:01 PM BOILER TESTER documented as of this encounter Care Teams Leather Scraper Relationship Specialty Start Date End Date Fiordlaiza Snell MD PCP - General Family Practice 09/09/22 documented as of this encounter
--- OUTSIDE RECORDS SUMMARY | 2024-08-03 05:35 | XMS_ITS | Encounter Summary ---
Author Organization [facility] Healthcare Address [address] [place] [address] Care Team Providers Care Treasury Associate Name Role Phone Shilpa Frazier DO Primary Care Provider Lidia Barajas MD Unavailable Ab Melara MD Primary Care Provid er Encounter Details Date Type Department Care Team (Late st Contact Info) Description 04/24/2020 Telephone [facility] at [facility] [address] [facility] [address] [place] [address] Tori Arias RN Social History [...] on file Legal Sex Female 11:49 PM COMPLEX DIRECTOR Gender Identity Not on file Sexual [...] DT MRSA 12/27/2021 03/06/2022 09/02/2022 3:05 AM COMPLEX DIRECTOR documented as of this encounter Care Teams Treasury Associate Relationship Specialty Start Date End Date Shilpa Frazier DO PCP - General 06/12/18 07/15/21 Ab Melara MD [address] [address] PCP - General Family Medicine 07/16/21 Lidia Barajas MD Anesthesiologist Anesthesiology 01/13/20 documented as of this encounter
--- OUTSIDE RECORDS SUMMARY | 2024-08-03 05:35 | XMS_ITS | Encounter Summary ---
Author Organization [facility] Address [address] [place] [address] Care Team Providers Care Pipe Coverer Helper Name Role Phone Fiordaliza Snell MD Primary Care Provider Encounter Details Date Type Department Care Team (Latest Contact Info) Description 07/04/2002 Inpatient Historical HIS PATIENT IN A BED GarcianAjali MD NO ADDRESS ON FILE OVARIAN CYST NEC/NOS (Primary Dx) Social History Tobacco Use Types Packs/Day Years Used Date Smoking Tobacco: Never Assessed Comments Unknown Sex and Gender Information Value Date Recorded Sex Assigned at Not on file Legal Sex Female 2:43 AM HAND BOX FOLDER Gender Identity Not on file Sexual Orientation Not on file documented as of this encounter Plan of Treatment Not on file documented as of this encounter Visit Diagnoses Diagnosis Other and unspecified ovarian cyst- Primary documented in this encounter Additional Health Concerns Infection Onset Date Last Indicated Resolved Time R/O COVID-19 07/02/2020 07/02/2020 07/02/2020 8:53 PM HAND BOX FOLDER MRSA Comment:Resolved per Type and Duration of Precautions Recommended for Selected Infections and Conditions document 2023 update 07/02/2020 07/02/2020 03/16/20 24 10:58 AM CDT R/O COVID-19 07/10/2020 07/10/2020 07/10/2020 5:01 PM HAND BOX FOLDER documented as of this encounter Care Teams Pipe Coverer Helper Relationship Specialty Start Date End Date Fiordaliza Snell MD PCP - General Family Practice 09/09/22 documented as of this encounter
--- OUTSIDE RECORDS SUMMARY | 2024-08-03 05:35 | XMS_ITS | Clinical Summary ---
Author Organization [facility] Address [address] [place] [address] Care Team Providers Care Community Chest Officer Name Role Phone Lidia Barajas MD Unavailable Shilpa Gandhi MD Unavailable Iron Galindo PA-C Primary Care Provide r Cresencio Ghosh MD Unavailable [phone] Source Comments [facility],non-owned Affiliates and Associated Physician Practices is amultiple site organization consisting of ambulatory clinics and hospital sitesin [place], [place], [place] and [place]. This disclosure is being madepursuant to the Care Everywhere program and may not contain all information available regarding this patient. Last updated 18.[facility] Allergies Active Allergy Reactions Criticality [...] (spasms) 90 tablet 2 09/18/2022 Active Nystop 087251 UNIT/GM powder Apply to affected area 2 [...] Type Department Care Team Description 07/28/2024 Refill [facility] - Pulmonology [address] [facility] [facility] [address], [address] [place] [address] Cresencio Ghosh MD Refill Request 07/03/2024 Refill [facility] - Pulmonology [address] [facility], [address] [place] [address] Cresencio Ghosh MD Refill Request from Last [...] care, and heating? Not very hard 04/02/2023 [facility] Occupat ional Health - Occupational Stress [...] place to sleep or slept in a mcc (including now)? No 04/02/2023 Sex and Gender Information Value Date Recorded Sex Assigned at Not on file Gender Identity Not on file Sexual Orientation Not on file Last Filed Vital Signs Vital Sign Reading Time Taken Comments Blood Pressure 157/91 05/07/2023 9:23 AM LAMINATING MACHINE OFFBEARER Pulse 86 05/07/2023 9:23 AM LAMINATING MACHINE OFFBEARER Temperature 36.3 ??C (97.3 ??F) 05/07/2023 9:23 AM CS T Respiratory Rate 18 04/02/2023 3:00 PM CDT Oxygen Saturation 95% 05/07/2023 9:23 AM LAMINATING MACHINE OFFBEARER Inhaled Oxygen Concentration 97% 02/21/2021 1 0:15 AM CDT Weight 95.3 kg (210 lb) 03/16/2024 10:50 AM CDT Height 172.7 cm (5' 8 ) 03/16/2024 10:50 AM CDT Body Mass Index 31.93 03/16/2024 10:50 AM CDT Plan of Treatment Upcoming Encounters Date Type Department Care Team (Late st Contact Info) Description 08/23/2024 2:30 PM LAMINATING MACHINE OFFBEARER Appointment [facility] [address] [place] [address] Panchito Walters, DO [address] [place] [address] 09/14/2024 10:00 AM CDT Video Visit [facility] - Pulmonology [address] [place] [address] Cresencio Ghosh MD [address] [place] [address] Health Maintenance Due Date Last [...] < 140/90 Blood Pressure 157/91(2022 9:23 AM LAMINATING MACHINE OFFBEARER) No Sierra Steiner Yearly PCP visit Lifestyle No White, Ava A Have labs drawn Lifestyle No White, Ava A Take recommended medication(s) Lifestyle No White, Ava A Use safety retraint in car Lifestyle No White, Ava A Complete Health Maintenance Screenings Lifestyle No White, Ava A Medical Devices Implanted Type Area Game Programer Device Identifier Shelf Expiration Date Model / Serial / Lot Floseal Hemostatic Matrix Implanted:Qty: 1 on 04/02/2019 by Maicol Mcneil DO at [facility] N/A: Spine [employer] 08/10/2020 [id number] / / [id number] Graft Tissue Drgn + Bvn Clgn Mtrx 1x1in Implanted:Qty: 1 on 04/02/2019 by Maicol Mcneil DO at [facility] N/A: Spine Integra [employer]iences 04/29/2021 [id number] / / [id number] Seal Tisseel Prima 1 Prefil Frz 4ml - [id number] Implanted:Qty: 1 on 04/02/2019 by Maicol Mcneil DO at [facility] N/A: Spine [employer] 08/27/2020 [id number] / [id number] / [id number] Impl Inj 1ml Coaptite Syr Bulk Agnt Implanted:Qty: 2 on 04/11/2020 by Dave Aparicio MD at [facility] N/A: Bladder [employer] Scimed 10/25/2022 [id number] / / [id number] Impl Inj 1ml Coaptite Syr Bulk Agnt Implanted:Qty: 2 on 02/05/2022 by Dave Aparicio MD at [facility] Bladder [employer] Scimed 10/16/2024 [id number] / / [id number] Stent Uret 7fr 80cm Str Cls Tip Llok Implanted:Qty: 1 on 09/03/2022 by Nel Cerna DO at [facility] Ureter [employer] Scimed 12/23/2025 [id number] / / [id number] Description:bilateral ureter s Procedures Procedure Name Priority [...] 7 - 26 mg/dL 04/02/2023 3:07 AM [facility] Creatinine 0.69 0.56 - 0.96 mg/dL 04/02/2023 3:07 AM [facility] Sodium 133(L) 136 - 145 mmol/L 04/02/2023 3:07 AM [facility] Potassium 3.9 3.5 - 4.5 mmol/L 04/02/2023 3:07 AM [facility] Chloride 102 98 - 107 mmol/L 04/02/2023 3:07 AM [facility] CO2 26 22 - 29 mmol/L 04/02/2023 3:07 AM [facility] Glucose 122(H) 70 - 115 mg/dL 04/02/2023 3:07 AM [facility] Calcium 8.3(L) 8.4 - 10.2 mg/dL 04/02/2023 3:07 AM [facility] Anion Gap 5(L) 6 - 16 04/02/2023 3:07 AM [facility] BUN/Creatinine Ratio 23 7 - 23 04/02/2023 3:07 AM [facility] Osmolality Calculated 278 275 - 295 mOsm/kg 04/02/2023 3:07 AM [facility] eGFR by CKD-EPI >90 >=90 mL/min/1.7 3 m2 04/02/2023 3:07 AM [facility] Blood BLOOD SPECIMEN / Unknown Lab Venipuncture / Unknown 04/02/2023 2:31 AM CDT 04/02/2023 2:39 AM CDT Missy Sutherland MD LAB - CHEMISTRY [facility] Organization Address City/State/ZIP Co de Phone Number [address] [address], [facility] [phone] * ENDOSCOPY, COLON, SCREENING (11/29/2019) Provider Unknown [...] participate in the care of your patient. [facility] utilizes [employer] as a reminder system to notify patients of their next recommended mammogram. Narrative 09/23/2017 9:22 AM CDT EXAMINATION: Digital screening mammogram on 09/18/2017. Low-dose full-field digital breast tomosynthesis examination was performed with synthetic 2D images and 3D acquisitions. Computer assisted detection was utilized. PRIOR: Mammogram from [facility] on 11/13/2004. BREAST PARENCHYMAL DENSITY: The breasts are almost entirely fatty. RISK ASSESSMENT CALCULATION: Based on the information provided by your patient, her lifetime risk of breast cancer is average (<15%). Additional quantitative risk model data and patient history details have been scanned as a document/letter in [facility] electronic medical record (media tab). Please note [...] Documents on File Type Date Recorded Patient Research Editor Expl anation Adv Directive/Living Will/POA 09/16/2022 3:23 [...] 4:01 AM 05/11/2020 8:00 PM Care Teams Community Chest Officer Relationship Specialty Start Date End Date Iron Galindo PA-C [address] [facility] [address] [facility] [address] [place] [address] PCP - General Physician Professor Of Industrial Technology 02/12/23 Cresencio Ghosh MD [address] [place] [address] PCP - Attributed-[facility] P4P 12/29/23 Lidia Barajas MD [address] [facility], [address] Anesthesiology-Pain Management 06/03/19 Shilpa Gandhi MD [address] [place], [place] [address] [place] [address] Oncology 06/03/19
--- OUTSIDE RECORDS SUMMARY | 2024-08-03 05:35 | XMS_ITS | Encounter Summary ---
Author Organization [facility] Address [address] [place] [address] Care Team Providers Care Field Artillery Basic Name Role Phone Shilpa Frazier DO Primary Care Provider [phone]- [phone] Lidia Barajas MD Unavailable Shilpa Gandhi MD Unavailable [phone] Massiel Melara MD Primary Care Provider + [phone] Shilpa Frazier DO Primary Care Provider + [phone] Iron GalindoC Primary Care Provide r Cresencio Ghosh MD Unavailable [phone] Encounter Details Date Type Department Care Team (Late st Contact Info) Description 01/23/2015 Therapy Visit EXTERNAL NON[facility] DEPT Sunny Reynoso MD [address] [address] Social History Tobacco Use Types [...] st Contact Info) Description 08/23/2024 2:30 PM DEVELOPER PROGRAMMER Appointment [facility] MRI [address] [place] [phone] Panchito Walters DO [address] [place] [address] 09/14/2024 10:00 AM CDT Video Visit [facility] - Pulmonology [address] [place] [address] Cresencio Ghosh MD [address] [facility] [address] [place] [phone] documented as of this encounter Visit Diagnoses Not on filedocumented in this encounter Additional Health Concerns Infection Onset Date Last Indicated Resolved Time MRSA 08/18/2019 08/27/2019 10/07/2019 8:51 AM CDT MRSA Hx Comment:10/07/2019 HX MRSA COLONIZATION; NO NEED FOR ISOLATION AT THIS TIME; PROCUREMENT REPRESENTATIVE INF PREV [id number] 10/07/2019 10/07/2019 09/05/19 8:37 AM DEVELOPER PROGRAMMER MRSA 10/07/2019 10/07/2019 01/29/2020 8:33 AM CDT MRSA 01/28/2020 01/28/2020 03/20/2020 7:45 AM CDT COVID-19 Under Investigation 04/06/2020 04/08/2020 04/09/2020 5:20 AM CDT MRSA 04/11/2020 04/11/2020 12/25/2020 9:00 AM CDT COVID-19 Under Investigation 08/07/2020 08/07/2020 08/08/2020 3:45 PM DEVELOPER PROGRAMMER COVID-19 Under Investigation 08/11/2020 08/11/2020 08/12/2020 4:08 AM DEVELOPER PROGRAMMER MRSA 05/13/2021 02/05/2022 09/04/2022 8:37 AM DEVELOPER PROGRAMMER MRSA Hx 09/04/2022 09/04/2022 MDRO Comment:04/01/23 MDRO resolved, ES 02/23/2023 02/23/2023 2023 7:16 AM CDT MDRO Hx 04/01/2023 04/01/2023 MDRO 05/08/2023 05/08/2023 documented as of this encounter Care Teams Field Artillery Basic Relationship Specialty Start Date End Date Shilpa Frazier DO [address] [facility] [address] [place] [phone] PCP - General Family Medicine 08/06/17 07/31/20 Massiel Melara MD [address] [place] [address] PCP - General Family Medicine 08/01/20 10/01/20 Shilpa Frazier DO [address] [facility] [address] [place] [address] PCP - General Family Medicine 10/02/20 10/03/20 Iron Galindo PA-C [address] [facility] [address] [place] [address] PCP - General Physician Grinding Machine Tender 02/12/23 Cresencio Ghosh MD [address] [facility] [address] [place] [address] PCP - [facility] P4P 12/29/23 Lidia Barajas MD [address] [facility], [address] Anesthesiology-Pain Management 06/03/19 Shilpa Gandhi MD [address] [facility] [address] [place] [address] Oncology 06/03/19 documented as of this encounter
--- OUTSIDE RECORDS SUMMARY | 2024-08-03 05:35 | XMS_ITS | Clinical Summary ---
Author Organization [facility] Address [address] [place] [address] Phone Care Team Providers Care Senior Php Software Developer Name Role Phone Fiordaliza Snell MD Primary [...] migh t be different from the original. Embedded Processor - Dr. Eddie Tapia MD, FAC, [facility] [address] [facility] Problem Noted Date Diagnosed Date YAJAIRA (obstructive [...] NOS Added automatically from request for surgery [id number] Last Assessment & Plan: Healing fusion C6-7 [...] (09/14/2021): Added automatically from request for surgery [id number] Cervical pain (neck) 06/13/2018 Intractable pain 10/13/2011 [...] COVID-19 VACCINE - EMERGENCY USE AUTHORIZATION, MRNA, [id number](PF) 30 MCG/0.3 ML IM SUSP 12/13/2020,11/20/2020 (PNEUMOVAX [...] on file Legal Sex Female 2:43 AM SOLUTIONS MANAGER Gender Identity Not on file Sexual [...] T Respiratory Rate 18 07/12/2020 9:24 PM SOLUTIONS MANAGER Oxygen Saturation 97% 04/20/2021 2:12 PM CDT Inhaled Oxygen Concentration - - Weight 91.6 kg (202 lb) 08/07/2020 2:15 PM SOLUTIONS MANAGER Height 172.7 cm (5' 8 ) 04/20/2021 2:12 PM CDT Body Mass Index 30.71 08/07/2020 2:15 PM SOLUTIONS MANAGER Plan of Treatment Health Maintenance Due Date [...] Colorectal Cancer Screening 11/28/2029 Insurance [employer] [facility] Advance Directives For more information, please contact: [phone] * Full Code (Latest Code Status on File) Date Activated Date Inactivated Comments 07/02/2020 10:50 PM 07/13/2020 1:53 PM * Full Code Date Activated Date Inactivated Comments 06/26/2011 3:20 AM 06/26/2011 8:40 PM Care Teams Senior Php Software Developer Relationship Specialty Start Date End Date Fiordaliza Snell MD PCP - General Family Practice 09/09/22
--- OUTSIDE RECORDS SUMMARY | 2024-08-03 05:35 | XMS_ITS | Referral Summary ---
Author Organization [facility] Address [address] [place] [address] Care Team Providers Care Pharmaceutical Plant Operator Name Role Phone Lidia Barajas MD [...] for pain 42 tablet 2 Active multivit lmexnbrl-rgpa-RY-c alcium (THERA-M) 9 mg iron-400 mcg tabletIndications: [...] (10/24/2021): Added automatically from request for surgery [id number] Postlaminectomy syndrome, lumbar region 10/25/19 Overview (10/24/2021): Added automatically from request for surgery [id number] Assessment & Plan (07/03/2022 3:48 PM OPERATIONS ADMINISTRATIVE ASSISTANT): Ms. Mcnulty is doing well following lumbar [...] (10/24/2021): Added automatically from request for surgery [id number] Other chest pain 01/19/2020 Assessment & Plan [...] asso ciated with catheterization of urinary tract ([facility]) 11/16/2019 Neurogenic bladder 11/16/2019 Assessment & Plan [...] need for exchange this admission Suprapubic catheter ([facility]) 11/16/2019 Essential hypertension 11/16/2019 Hypertensive urgency 11/16/2019 [...] (11/25/2019): Added automatically from request for surgery [id number] Chronic lumbar radiculopathy 01/21/2019 Chronic back pain 01/21/2019 Spinal stenosis of lumbar region with radiculopa thy 12/04/2018 Assessment & Plan (07/18/2021 10:23 AM OPERATIONS ADMINISTRATIVE ASSISTANT): Assessment Healed fusion L2-5 severe retrolisthesis with [...] (06/18/2018): Added automatically from request for surgery [id number] Assessment & Plan (12/04/2018 3:42 PM CDT): Healing fusion C6-7 Continued observation. Assessment & Plan (08/12/2018 10:35 AM OPERATIONS ADMINISTRATIVE ASSISTANT): Assessment Healing fusion C6-7 Plan Talked about do's and don'ts she is still to maintain her initial restrictions and return in 6 weeks for an x-ray Assessment & Plan (06/25/2018 2:43 PM OPERATIONS ADMINISTRATIVE ASSISTANT): Angelina was recently hospitalized at [facility] and diagnosed with a disc osteophyte [...] (06/18/2018): Added automatically from request for surgery [id number] Cervical pain (neck) 06/13/2018 Asthma 11/13/2013 Overview [...] often do you attend chur ch or orthodoxy services? More than 4 times per year 03/07/2022 Do you belong to any clubs o r organizations such as hinduism groups, unions, fraternal or athletic groups, or [...] slept in a mcc (including now)? No 03/07/2022 Comments No Sex and Gender Information Value Date Recorded Sex Assigned at Not on file Legal Sex Female 11:49 PM OPERATIONS ADMINISTRATIVE ASSISTANT Gender Identity Not on file Sexual Orientation [...] Plan Chronic Care Management Worsening( 10:12 AM OPERATIONS ADMINISTRATIVE ASSISTANT) Milvia Mireles RN Note: Problem: Chronic Pain Goals: 1. Minimize further functional decline 2. Maximize quality of life 3. Control pain Strategies: - Activity/exercise program recommendation - Conservative stepwise pain medicine strategy with multi-disciplinary approach - Recommend healthy lifestyle strategies and compensatory methods as needed Medical Devices Implanted Type Area Missile And Missile Checkout Technician Device Identifier Shelf Expiration Date Model / Serial / Lot Spinal Cord Stimulator-2016 Implanted:01/28 (Quantity not on file) Spinal Cord Stimulator Left: Hip Nevro Spinal Cord Stimulation System [id number] / / Description:Closed Bore only 1.5T or [...] ensure it has returned to pre-MRI settings. [employer] 700-025 I Factor Allograft Putty Syringe Graft 2.5cc Bone - [id number] Implanted:Qty: 1 on 07/03/2018 by Zachary Rothman MD at [facility] N/A: Spine Cervical [employer] Inc 03/29/2021 700-025 / / [id number] Plate 1-Level 14 Mm Cervical - [id number] Implanted:Qty: 1 on 07/03/2018 by Zachary Rothman MD at [facility] N/A: Spine Cervical [employer] 30-0114 / / Screw 4.0x14mm Self Drilling Variable - [id number] Implanted:Qty: 4 on 07/03/2018 by Zachary Rothman MD at [facility] N/A: Spine Cervical [employer] [id number] / / Cage Spinal [id number] 7 Degree Porous Coated Latex Free - [id number] Implanted:Qty: 1 on 07/03/2018 by Zachary Rothman MD at [facility] N/A: Spine Cervical Spinal Elements [id number] / / Depuy Synthes Spine [id number] Substitute Bone Graft Fibergraft Gps Medium Putty 6cc - [id number] Implanted:Qty: 1 on 11/29/2021 by Dave Louis MD at [facility] N/A: Lumbar-Sa cral Spine Depuy Synthes Spine [id number] 10/18/2023 [id number] / / [id number] B[employer] International Inc Osteosponge Allograft Chips Radiolucent Thk4-10mm Graft 30cc Bone [id number] - [id number] - [id number] Implanted:Qty: 1 on 11/29/2021 by Dave Louis MD at [facility] N/A: Lumbar-Sa cral Spine [employer] Inc 10/14/2024 [id number] / [id number] / Depuy Synthes Spine Cage Post Spinal 4d Plif Ti [id number] - [id number] Implanted:Qty: 1 on 11/29/2021 by Dave Louis MD at [facility] N/A: Lumbar-Sa cral Spine Depuy Synthes Spine [id number] 07/30/2024 [id number] / / [id number] Depuy Synthes Spine Expedium 5.5mm 80mm Line Prebent Rodney Spinal Titanium Nonsterile [id number] - [id number] Implanted:Qty: 1 on 11/29/2021 by Dave Louis MD at [facility] N/A: Lumbar-Sa cral Spine Depuy Synthes Spine [id number] / / Depuy Synthes Spine Expedium 5.5mm 85mm Line Prebent Rodney Spinal Titanium Nonsterile [id number] - [id number] Implanted:Qty: 1 on 11/29/2021 by Dave Louis MD at [facility] N/A: Lumbar-Sa cral Spine Depuy Synthes Spine [id number] / / Depuy Synthes Spine Expedium 5.5mm 45mm Polyaxial Spine Screw Bone Titanium 5.5mm Rodney [id number] - [id number] Implanted:Qty: 2 on 11/29/2021 by Daev Louis MD at [facility] N/A: Lumbar-Sa cral Spine Depuy Synthes Spine [id number] / / Depuy Synthes Spine Expedium 6.5mm 45mm Polyaxial Spine Screw Bone Titanium 5.5mm Rodney [id number] - [id number] Implanted:Qty: 3 on 11/29/2021 by Dave Louis MD at [facility] N/A: Lumbar-Sa cral Spine Depuy Synthes Spine [id number] / / Depuy Synthes Spine Expedium 1 Inner Monoaxial Spine Screw Set Titanium [id number] - [id number] Implanted:Qty: 6 on 11/29/2021 by Dave Louis MD at [facility] N/A: Lumbar-Sa cral Spine Depuy Synthes Spine [id number] / / Depuy Synthes Spine Expedium 7mm 45mm 1 Innie Polyaxial Spine Screw Bone Titanium [id number] - [id number] Implanted:Qty: 1 on 11/29/2021 by Dave Louis MD at [facility] N/A: Lumbar-Sa cral Spine Depuy Synthes Spine [id number] / / Procedures Procedure Name Priority Date/Time [...] 11/29/2019 8:04 AM Admit Type: Inpatient Room: [facility] Date of : 1965 Instrument [...] the bowel preparation was evaluated usingthe BBPS ([place] Bowel Preparation Scale) with scores of: Right [...] 19. Hep B core IgM Nonreactive Nonreactive [facility] Comment: Interpretive Data If HepB [...] last revised on 2019. HepBsAg Nonreactive Nonreactive [facility] Blood specimen (specimen) 11/17/2019 4:13 AM CDT 11/17/2019 4:31 AM CDT [facility] MICROBIOLOGY - GENERAL ORDERABLES Final Result [facility] [address]rie[address] LiudmilaKen Joshi Seth Department [place] [address] from Last 3 Months or Most Recently Relevant to Health Maintenance Insurance MEDICARE SOLUTIONS [facility] MEDICARE [facility] MEDICARE MEDICARE SOLUTIONS Advance Directives For more information, please contact: [phone] Documents on File Type Date Recorded Patient Inspector Tester Sorter Expl anation Power of Commodities Requirements Analyst 11/29/2021 11:46 AM * Full Code (Latest [...] First Alternate Health Care Agent Care Teams Pharmaceutical Plant Operator Relationship Specialty Start Date End Date Ab Melara MD [address] [address] PCP - General Family Medicine 07/16/21 Lidia Barajas MD Anesthesiologist Anesthesiology 01/13/20
--- OUTSIDE RECORDS SUMMARY | 2024-08-03 05:35 | XMS_ITS | Clinical Summary ---
Author Organization [facility] Address [address] [place] [address] Phone Care Team Providers Care Consulting Services Project Manager Name Role Phone Unavailable Primary Care Provider Unavailabl e Social History Tobacco Use Types Packs/Day Years Used Date Smoking Tobacco: Never Assessed Comments Unknown Sex and Gender Information Value Date Recorded Sex Assigned at Not on file Legal Sex Female 3:52 AM GRAVEL HAULER Gender Identity Not on file Sexual Orientation [...]
--- OUTSIDE RECORDS SUMMARY | 2024-08-03 05:35 | XMS_ITS | Encounter Summary ---
Author Organization [facility] Address [address] [place] [address] Care Team Providers Care Front Desk Receptionist Name Role Phone Fiordaliza Snell MD Primary Care Provider Encounter Details Date Type Department Care Team (Late st Contact Info) Description 05/06/2001 Outpatient Historical [facility] Pratik Fisher MD [address] [place] [address] Er, Authorized P NO ADDRESS ON FILE ABDOMINAL PAIN OTHER SPEC SITE (Primary Dx) Social History Tobacco Use Types Packs/Day Years Used Date Smoking Tobacco: Never Assessed Comments Unknown Sex and Gender Information Value Date Recorded Sex Assigned at Not on file Legal Sex Female 2:43 AM SHERIFF SERGEANT Gender Identity Not on file Sexual Orientation Not on file documented as of this encounter Plan of Treatment Not on file documented as of this encounter Visit Diagnoses Diagnosis Abdominal pain, other specified site- Primary documented in this encounter Additional Health Concerns Infection Onset Date Last Indicated Resolved Time R/O COVID-19 07/02/2020 07/02/2020 07/02/2020 8:53 PM SHERIFF SERGEANT MRSA Comment:Resolved per Type and Duration of Precautions Recommended for Selected Infections and Conditions document 2023 update 07/02/2020 07/02/2020 03/16/20 10:58 AM CDT R/O COVID-19 07/10/2020 07/10/2020 07/10/2020 5:01 PM SHERIFF SERGEANT documented as of this encounter Care Teams Front Desk Receptionist Relationship Specialty Start Date End Date Fiordaliza Snell MD PCP - General Family Practice 09/09/22 documented as of this encounter
--- OUTSIDE RECORDS SUMMARY | 2024-08-03 05:35 | XMS_ITS | Encounter Summary ---
Author Organization [facility] Address [address] [place] [address] Care Team Providers Care Story Reader Name Role Phone Fiordaliza Snell MD Primary [...] on file Legal Sex Female 2:43 AM INCLUSION TEACHER Gender Identity Not on file Sexual [...] fL INTERFACE SYSTEM 10/14/2004 6:07 AM CDT [employer] HEMATOLOGY ORDERABLES Final Resu lt Performing Organization Address [facility] Phone Number INTERFACE SYSTEM Refer to clinic/hospital department * (ABNORMAL) BASIC METABOLIC PANEL (10/14/2004 6:07 AM CDT) Pathologist [facility] GLUCOSE 90 65 - 109 [...] mmol/L INTERFACE SYSTEM 10/14/2004 6:07 AM CDT [employer] CHEMISTRY ORDERABLES Final Resul t Performing Organization Address [facility] Phone Number INTERFACE SYSTEM Refer to clinic/hospital department * (ABNORMAL) AMYLASE (10/13/2004 9:56 AM CDT) AMYLASE 24(L) 28 - 100 U/L INTERFACE SYSTEM 10/13/2004 9:56 AM CDT Russell Marie CHEMISTRY ORDERABLES Final Resul t Performing Organization Address [facility] Phone Number INTERFACE SYSTEM Refer to clinic/hospital department * LIPASE (10/13/2004 9:56 AM CDT) LIPASE 20 13 - 60 U/L INTERFAC E SYSTEM 10/13/2004 9:56 AM CDT Russell Marie CHEMISTRY ORDERABLES Final Resul t Performing Organization Address [facility] Phone Number INTERFACE SYSTEM Refer to [...] ORDERABLES Final Resu lt Performing Organization Address City/[facility] de Phone Number INTERFACE SYSTEM Refer [...] ORDERABLES Final Resu lt Performing Organization Address [facility] Phone Number INTERFACE SYSTEM Refer to clinic/hospital department * (ABNORMAL) C-REACTIVE PROTEIN (10/13/2004 5:00 AM CDT) CRP 1.3(H) 0.0 - 0.8 mg/dL INTERFACE SYSTEM 10/13/2004 5:00 AM CDT Russell Marie CHEMISTRY ORDERABLES Final Resul t Performing Organization Address [facility] Phone Number INTERFACE SYSTEM Refer to [...] URINE ORDERABLES Final Result Performing Organization Address [facility] [place] Phone Number INTERFACE SYSTEM Refer to clinic/hospital [...] ORDERABLES Final Resu lt Performing Organization Address City/[facility] de Phone Number INTERFACE SYSTEM Refer [...] ORDERABLES Final Resul t Performing Organization Address [facility] Phone Number INTERFACE SYSTEM Refer to clinic/hospital department * AMYLASE (10/12/2004 9:17 PM CDT) AMYLASE 39 28 - 100 U/L INTERFACE SYSTEM Comment:Previous specimen us ed; approved by floor. 10/12/2004 9:[address] MD CHEMISTRY ORDERABLES Final Resul t Performing Organization Address [facility] Phone Number INTERFACE SYSTEM Refer to [...] ORDERABLES Final Resu lt Performing Organization Address City/[facility] Co de Phone Number INTERFACE SYSTEM Refer [...] ORDERABLES Final Resu lt Performing Organization Address City/[facility]/ZIP Co de Phone Number INTERFACE SYSTEM Refer [...] Time R/O COVID-07/02/2020 07/02/2020 07/02/2020 8:53 PM INCLUSION TEACHER MRSA Comment:Resolved per Type and Duration of Precautions Recommended for Selected Infections and Conditions document 2023 update 07/02/2020 07/02/2020 03/16/20 10:58 AM CDT R/O COVID-07/10/2020 07/10/2020 07/10/2020 5:01 PM INCLUSION TEACHER documented as of this encounter Care Teams Story Reader Relationship Specialty Start Date End Date Fiordaliza Snell MD PCP - General Family Practice 09/09/22 documented as of this encounter
--- OUTSIDE RECORDS SUMMARY | 2024-08-03 05:35 | XMS_ITS | Encounter Summary ---
Author Organization [facility] Address [address] [place] [address] Care Team Providers Care Engineering Patternmaker Name Role Phone Fiordaliza Snell MD Primary Care Provider Encounter Details Date Type Department Care Team (Latest Contact Info) Description 11/13/2004 Outpatient Historical [facility] RONALD Garcia, Anjali Gupta MD NO ADDRESS ON FILE LUMP OR MASS IN BREAST (Primary Dx) Social History Tobacco Use Types Packs/Day Years Used Date Smoking Tobacco: Never Assessed Comments Unknown Sex and Gender Information Value Date Recorded Sex Assigned at Not on file Legal Sex Female 2:43 AM SLIP COVER ESTIMATOR Gender Identity Not on file Sexual Orientation Not on file documented as of this encounter Plan of Treatment Not on file documented as of this encounter Visit Diagnoses Diagnosis Lump or mass in breast- Primary documented in this encounter Additional Health Concerns Infection Onset Date Last Indicated Resolved Time R/O COVID-19 07/02/2020 07/02/2020 07/02/2020 8:53 PM SLIP COVER ESTIMATOR MRSA Comment:Resolved per Type and Duration of Precautions Recommended for Selected Infections and Conditions document 2023 update 07/02/2020 07/02/2020 03/16/20 24 10:58 AM CDT R/O COVID-19 07/10/2020 07/10/2020 07/10/2020 5:01 PM SLIP COVER ESTIMATOR documented as of this encounter Care Teams Engineering Patternmaker Relationship Specialty Start Date End Date Fiordaliza Snell MD PCP - General Family Practice 09/09/22 documented as of this encounter
--- OUTSIDE RECORDS SUMMARY | 2024-08-03 05:35 | XMS_ITS | Encounter Summary ---
Author Organization [facility] Address [address] [place] [address] Care Team Providers Care Journalists And Other Writers Name Role Phone Fiordaliza Snell MD Primary [...] on file Legal Sex Female 2:43 AM PROTOTYPE SPECIAL BUILD Gender Identity Not on file Sexual Orientation Not on file documented as of this encounter Plan of Treatment Not on file documented as of this encounter Visit Diagnoses Diagnosis Chronic salpingitis and oophoritis- Primary documented in this encounter Additional Health Concerns Infection Onset Date Last Indicated Resolved Time R/O COVID-19 07/02/2020 07/02/2020 07/02/2020 8:53 PM PROTOTYPE SPECIAL BUILD MRSA Comment:Resolved per Type and Duration of Precautions Recommended for Selected Infections and Conditions document 2023 update 07/02/2020 07/02/2020 03/16/20 24 10:58 AM CDT R/O COVID-19 07/10/2020 07/10/2020 07/10/2020 5:01 PM PROTOTYPE SPECIAL BUILD documented as of this encounter Care Teams Journalists And Other Writers Relationship Specialty Start Date End Date Fiordaliza Snell MD PCP - General Family Practice 09/09/22 documented as of this encounter
--- OUTSIDE RECORDS SUMMARY | 2024-08-03 05:35 | XMS_ITS | Clinical Summary ---
Author Organization [facility] Address [address] [place] [address] Care Team Providers Care Painter And Body Mechanic Apprentice Name Role Phone Lidia Barajas MD Unavailable [...] for pain 42 tablet 2 Active multivit odduujfw-ikie-OL-c alcium (THERA-M) 9 mg iron-400 mcg tabletIndications: [...] (10/24/2021): Added automatically from request for surgery [id number] Postlaminectomy syndrome, lumbar region 10/25/19 Overview (10/24/2021): Added automatically from request for surgery [id number] Assessment & Plan (07/03/2022 3:48 PM SEISMOLOGY TEACHER): Ms. Mcnulty is doing well following lumbar [...] (10/24/2021): Added automatically from request for surgery [id number] Other chest pain 01/19/2020 Assessment & Plan [...] asso ciated with catheterization of urinary tract ([facility]) 11/16/2019 Neurogenic bladder 11/16/2019 Assessment & Plan [...] need for exchange this admission Suprapubic catheter ([facility]) 11/16/2019 Essential hypertension 11/16/2019 Hypertensive urgency 11/16/2019 [...] (11/25/2019): Added automatically from request for surgery [id number] Chronic lumbar radiculopathy 01/21/2019 Chronic back pain 01/21/2019 Spinal stenosis of lumbar region with radiculopa thy 12/04/2018 Assessment & Plan (07/18/2021 10:23 AM SEISMOLOGY TEACHER): Assessment Healed fusion L2-5 severe retrolisthesis with [...] (06/18/2018): Added automatically from request for surgery [id number] Assessment & Plan (12/04/2018 3:42 PM CDT): Healing fusion C6-7 Continued observation. Assessment & Plan (08/12/2018 10:35 AM SEISMOLOGY TEACHER): Assessment Healing fusion C6-7 Plan Talked about do's and don'ts she is still to maintain her initial restrictions and return in 6 weeks for an x-ray Assessment & Plan (06/25/2018 2:43 PM SEISMOLOGY TEACHER): Angelina was recently hospitalized at [facility] and diagnosed with a disc osteophyte complex [...] (06/18/2018): Added automatically from request for surgery [id number] Cervical pain (neck) 06/13/2018 Asthma 11/13/2013 Overview [...] often do you attend chur ch or buddhist services? More than 4 times per year 03/07/2022 Do you belong to any clubs o r organizations such as mandaen groups, unions, fraternal or athletic groups, or [...] place to sleep or slept in a fpc (including now)? No 03/07/2022 Comments No Sex and Gender Information Value Date Recorded Sex Assigned at Not on file Legal Sex Female 11:49 PM SEISMOLOGY TEACHER Gender Identity Not on file Sexual [...] Plan Chronic Care Management Worsening( 10:12 AM SEISMOLOGY TEACHER) Milvia Mireles RN Note: Problem: Chronic Pain Goals: 1. Minimize further functional decline 2. Maximize quality of life 3. Control pain Strategies: - Activity/exercise program recommendation - Conservative stepwise pain medicine strategy with multi-disciplinary approach - Recommend healthy lifestyle strategies and compensatory methods as needed Medical Devices Implanted Type Area Hand Paster Device Identifier Shelf Expiration Date Model / Serial / Lot Spinal Cord Stimulator-2016 Implanted:01/28 (Quantity not on file) Spinal Cord Stimulator Left: Hip Nevro Spinal Cord Stimulation System [id number] / / Description:Closed Bore only 1.5T or [...] ensure it has returned to pre-MRI settings. [employer] 700-025 I Factor Allograft Putty Syringe Graft 2.5cc Bone - [id number] Implanted:Qty: 1 on 07/03/2018 by Zachary Rothman MD at [facility] N/A: Spine Cervical [employer] Inc 03/29/2021 700-025 / / [id number] Plate 1-Level 14 Mm Cervical - [id number] Implanted:Qty: 1 on 07/03/2018 by Zachary Rothman MD at [facility] N/A: Spine Cervical [employer] / / Screw 4.0x14mm Self Drilling Variable - [id number] Implanted:Qty: 4 on 07/03/2018 by Zachary Rothman MD at [facility] N/A: Spine Cervical [employer] 31-7664 / / Cage Spinal [id number] 7 Degree Porous Coated Latex Free - [id number] Implanted:Qty: 1 on 07/03/2018 by Zachary Rothman MD at [facility] N/A: Spine Cervical Spinal Elements [id number] / / Depuy Synthes Spine [id number] Substitute Bone Graft Fibergraft Gps Medium Putty 6cc - [id number] Implanted:Qty: 1 on 11/29/2021 by Dave Louis MD at [facility] N/A: Lumbar-Sa cral Spine Depuy Synthes Spine [id number] 10/18/2023 [id number] / / [id number] [employer] Osteosponge Allograft Chips Radiolucent Thk4-10mm Graft 30cc Bone [id number] - [id number] - [id number] Implanted:Qty: 1 on 11/29/2021 by Dave Louis MD at [facility] N/A: Lumbar-Sa cral Spine [employer] 10/14/2024 [id number] / [id number] / Depuy Synthes Spine Cage Post Spinal 4d Plif Ti [id number] - [id number] Implanted:Qty: 1 on 11/29/2021 by Dave Louis MD at [facility] N/A: Lumbar-Sa cral Spine Depuy Synthes Spine [id number] 07/30/2024 [id number] / / [id number] Depuy Synthes Spine Expedium 5.5mm 80mm Line Prebent Rodney Spinal Titanium Nonsterile [id number] - [id number] Implanted:Qty: 1 on 11/29/2021 by Dave Louis MD at [facility] N/A: Lumbar-Sa cral Spine Depuy Synthes Spine [id number] / / Depuy Synthes Spine Expedium 5.5mm 85mm Line Prebent Rodney Spinal Titanium Nonsterile [id number] - [id number] Implanted:Qty: 1 on 11/29/2021 by Dave Louis MD at [facility] N/A: Lumbar-Sa cral Spine Depuy Synthes Spine [id number] / / Depuy Synthes Spine Expedium 5.5mm 45mm Polyaxial Spine Screw Bone Titanium 5.5mm Rodney [id number] - [id number] Implanted:Qty: 2 on 11/29/2021 by Dave Louis MD at [facility] N/A: Lumbar-Sa cral Spine Depuy Synthes Spine [id number] / / Depuy Synthes Spine Expedium 6.5mm 45mm Polyaxial Spine Screw Bone Titanium 5.5mm Rodney [id number] - [id number] Implanted:Qty: 3 on 11/29/2021 by Dave Louis MD at [facility] N/A: Lumbar-Sa cral Spine Depuy Synthes Spine [id number] / / Depuy Synthes Spine Expedium 1 Inner Monoaxial Spine Screw Set Titanium [id number] - [id number] Implanted:Qty: 6 on 11/29/2021 by Dave Louis MD at [facility] N/A: Lumbar-Sa cral Spine Depuy Synthes Spine [id number] / / Depuy Synthes Spine Expedium 7mm 45mm 1 Innie Polyaxial Spine Screw Bone Titanium [id number] - [id number] Implanted:Qty: 1 on 11/29/2021 by Dave Louis MD at [facility] N/A: Lumbar-Sa cral Spine Depuy Synthes Spine [id number] / / Procedures Procedure Name Priority Date/Time [...] 11/29/2019 8:04 AM Admit Type: Inpatient Room: [facility] 4 Date of : 1965 Instrument [...] the bowel preparation was evaluated usingthe BBPS ([place] Bowel Preparation Scale) with scores of: Right [...] Hep B core IgM Nonreactive Nonreactive [facility] Comment: Interpretive Data If HepB Core [...] revised on 2019. HepBsAg Nonreactive Nonreactive [facility] Blood specimen (specimen) 11/17/2019 4:13 AM CDT 11/17/2019 4:31 AM CDT [facility] MICROBIOLOGY - GENERAL ORDERABLES Final Result [facility] [address] Department [place] [address] from Last 3 Months or Most Recently Relevant to Health Maintenance Insurance MEDICARE SOLUTIONS [facility] MEDICARE [employer] MEDICARE MEDICARE SOLUTIONS Advance Directives For more information, please contact: [phone] Documents on File Type Date Recorded Patient Engineer Byproduct Expl anation Power of Spoilage Worker 11/29/2021 11:46 AM * Full Code (Latest [...] First Alternate Health Care Agent Care Teams Painter And Body Mechanic Apprentice Relationship Specialty Start Date End Date Ab Melara MD [address] [address] PCP - General Family Medicine 07/16/21 Lidia Barajas MD Anesthesiologist Anesthesiology 01/13/20
--- OUTSIDE RECORDS SUMMARY | 2024-08-03 05:35 | XMS_ITS | Referral Summary ---
Author Organization [facility] Address [address] [place] [address] Care Team Providers Care Individual Pension Consultant Name Role Phone Lidia Barajas MD Unavailable Shilpa Gandhi MD Unavailable Iron Galindo PA-C Primary Care Provide r Cresencio Ghosh MD Unavailable Source Comments [facility],non-owned Affiliates and Associated Physician Practices is amultiple site organization consisting of ambulatory clinics and hospital sitesin [place], [place] and [place]. This disclosure is being madepursuant to the Care Everywhere program and may not contain all information available regarding this patient. Last updated 18.[facility] Encounters Date Type Department Care Team Description 07/28/2024 Refill [facility] - Pulmonology [address], [address] [place] [address] Cresencio Ghosh MD Refill Request 07/03/2024 Refill [facility] - Pulmonology [address], [address] [place] [address] Cresencio Ghosh MD Refill Request from Last [...] (spasms) 90 tablet 2 09/18/2022 Active Nystop 626604 UNIT/GM powder Apply to affected area 2 [...] care, and heating? Not very hard 04/02/2023 [facility] - Occupational Stress [...] place to sleep or slept in a assisted (including now)? 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 Pulse 86 05/07/2023 9:23 AM PAINT TECHNICIAN Temperature 36.3 ??C (97.3 ??F) 05/07/2023 9:23 AM CS T Respiratory Rate 18 04/02/2023 3:00 PM CDT Oxygen Saturation 95% 05/07/2023 9:23 AM PAINT TECHNICIAN Inhaled Oxygen Concentration 97% 02/21/2021 1 0:15 [...] st Contact Info) Description 08/23/2024 2:30 PM PAINT TECHNICIAN Appointment [facility] MRI [address] [place] [address] Panchito Walters, [address] [place] [address] 09/14/2024 10:00 AM CDT Video Visit [facility] - Pulmonology [address] [place] [address] Cresencio Ghosh MD [address] [place] [address] Goals Goal Patient Goal Type Associated Problems Recent Progress Patient-Stated? Author Blood Pressure < 140/90 Blood Pressure 157/91(2022 9:23 AM PAINT TECHNICIAN) No Sierra Steiner Yearly PCP visit Lifestyle No White, Ava A Have labs drawn Lifestyle No White, Ava A Take recommended medication(s) Lifestyle No White, Ava A Use safety retraint in car Lifestyle No White, Ava A Complete Health Maintenance Screenings Lifestyle No White, Ava A Medical Devices Implanted Type Area Chemistry Teacher Device Identifier Shelf Expiration Date Model / Serial / Lot Floseal Hemostatic Matrix Implanted:Qty: 1 on 04/02/2019 by Maicol Mcneil DO at [facility] N/A: Spine [employer] 08/10/2020 [id number] / / [id number] Graft Tissue Drgn + Bvn Clgn Mtrx 1x1in Implanted:Qty: 1 on 04/02/2019 by Maicol Mcneil DO at [facility] N/A: Spine [employer] 04/29/2021 [id number] / / [id number] Seal Tisseel Prima 1 Prefil Frz 4ml - [id number] Implanted:Qty: 1 on 04/02/2019 by Maicol Mcneil DO at [facility] N/A: Spine [employer] 08/27/2020 [id number] / [id number] / [id number] Impl Inj 1ml Coaptite Syr Bulk Agnt Implanted:Qty: 2 on 04/11/2020 by Dave Aparicio MD at [facility] N/A: Bladder [employer]im[employer] 10/25/2022 [id number] / / [id number] Impl Inj 1ml Coaptite Syr Bulk Agnt Implanted:Qty: 2 on 02/05/2022 by Dave Aparicio MD at [facility] Bladder [employer] 10/16/2024 [id number] / / [id number] Stent Uret 7fr 80cm Str Cls Tip Llok Implanted:Qty: 1 on 09/03/2022 by Nel Cerna DO at [facility] Ureter [employer] 12/23/2025 [id number] / / [id number] Description:bilateral ureter s Procedures Procedure Name Priority [...] 7 - 26 mg/dL 04/02/2023 3:07 AM [facility] Creatinine 0.69 0.56 - 0.96 mg/dL 04/02/2023 3:07 AM [facility] Sodium 133(L) 136 - 145 mmol/L 04/02/2023 3:07 AM [facility] Potassium 3.9 3.5 - 4.5 mmol/L 04/02/2023 3:07 AM [facility] Chloride 102 98 - 107 mmol/L 04/02/2023 3:07 AM [facility] CO2 26 22 - 29 mmol/L 04/02/2023 3:07 AM [facility] Glucose 122(H) 70 - 115 mg/dL 04/02/2023 3:07 AM [facility] Calcium 8.3(L) 8.4 - 10.2 mg/dL 04/02/2023 3:07 AM [facility] Anion Gap 5(L) 6 - 16 04/02/2023 3:07 AM [facility] BUN/Creatinine Ratio 23 7 - 23 04/02/2023 3:07 AM [facility] Osmolality Calculated 278 275 - 295 mOsm/kg 04/02/2023 3:07 AM CDT [facility] eGFR by CKD-EPI >90 >=90 mL/min/1.7 3 m2 04/02/2023 3:07 AM CDT [facility] Blood BLOOD SPECIMEN / Unknown Lab Venipuncture / Unknown 04/02/2023 2:31 AM CDT 04/02/2023 2:39 AM CDT Missy Sutherland MD LAB - CHEMISTRY [facility] [address] [place] [address], [facility] [place] [phone] * ENDOSCOPY, COLON, SCREENING (11/29/2019) Provider Unknown [...] participate in the care of your patient. [facility] Breast Care utilizes Vahna as a reminder system to notify patients of their next recommended mammogram. Narrative 09/23/2017 9:22 AM CDT EXAMINATION: Digital screening mammogram on 09/18/2017. Low-dose full-field digital breast tomosynthesis examination was performed with synthetic 2D images and 3D acquisitions. Computer assisted detection was utilized. PRIOR: Mammogram from [facility] on 11/13/2004. BREAST PARENCHYMAL DENSITY: The breasts are almost entirely fatty. RISK ASSESSMENT CALCULATION: Based on the information provided by your patient, her lifetime risk of breast cancer is average (<15%). Additional quantitative risk model data and patient history details have been scanned as a document/letter in [facility] electronic medical record (media tab). 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
--- OUTSIDE RECORDS SUMMARY | 2024-08-03 05:35 | XMS_ITS | Patient Health Summary ---
Author Organization [facility] Address [address] [place] [address] Care Team Providers Care Medical Management Trainer Name Role Phone Lidia Barajas MD Unavailable Shilpa Gandhi MD Unavailable Iron Galindo PA-C Primary Care Provide r Cresencio Ghosh MD Unavailable [phone] Note from [facility] [place]non-owned Affiliates and Associated Physician Practices is amultiple site organization consisting of ambulatory clinics and hospital sitesin [place], [place], [place] and [place]. This disclosure is being madepursuant to the Care Everywhere program and may not contain all information available regarding this patient. Last updated 18.[facility] Allergies * Adhesive Sensitivity(Skin Reactions) -Medium Criticality [...] (one) tablet by mouth at bedtime * Wkxqmlclq-Spmvbmpi-Luyp Vera (REGENECARE) 2 %(Started 05/29/2020) * ondansetron, [...] (spasms) 2 refills by 09/18/2023 * Nystop 876019 UNIT/GM powder(Started 12/10/2022) Apply to affected area [...] care, and heating? Not very hard 04/02/2023 [facility] of Occupat ional Health - Occupational Stress [...] place to sleep or slept in a jail (including now)? No 04/02/2023 Sex and Gender Information Value Date Recorded Sex Assigned at Not on file Gender Identity Not on file Sexual Orientation Not on file Last Filed Vital Signs Vital Sign Reading Time Taken Comments Blood Pressure 157/91 05/07/2023 9:23 AM [facility] Pulse 86 05/07/2023 9:23 AM [facility] Temperature 36.3 ??C (97.3 ??F) 05/07/2023 9:23 AM CS T Respiratory Rate 18 04/02/2023 3:00 PM CDT Oxygen Saturation 95% 05/07/2023 9:23 AM [facility] Inhaled Oxygen Concentration 97% 02/21/2021 1 0:15 AM CDT Weight 95.3 kg (210 lb) 03/16/2024 10:50 AM CDT Height 172.7 cm (5' 8 ) 03/16/2024 10:50 AM CDT Body Mass Index 31.93 03/16/2024 10:50 AM CDT Medical Devices Implanted Type Area Chief Optometry Service Device Identifier Shelf Expiration Date Model / Serial / Lot Floseal Hemostatic Matrix Implanted:Qty: 1 on 04/02/2019 by Maicol Mcneil DO at [facility] N/A: Spine [employer] 08/10/2020 [id number] / / [id number] Graft Tissue Drgn + Bvn Clgn Mtrx 1x1in Implanted:Qty: 1 on 04/02/2019 by Maicol Mcneil DO at [facility] N/A: Spine [employer] 04/29/2021 [id number] / / [id number] Seal Tisseel Prima 1 Prefil Frz 4ml - [id number] Implanted:Qty: 1 on 04/02/2019 by Maicol Mcneil DO at [facility] N/A: Spine [employer] 08/27/2020 [id number] / [id number] / [id number] Impl Inj 1ml Coaptite Syr Bulk Agnt Implanted:Qty: 2 on 04/11/2020 by Dave Aparicio MD at [facility] N/A: Bladder [employer] [employer] 10/25/2022 [id number] / / [id number] Impl Inj 1ml Coaptite Syr Bulk Agnt Implanted:Qty: 2 on 02/05/2022 by Dave Aparicio MD at [facility] Bladder [employer] [employer] 10/16/2024 [id number] / / [id number] Stent Uret 7fr 80cm Str Cls Tip Llok Implanted:Qty: 1 on 09/03/2022 by Nel Cerna DO at [facility] Ureter [employer] 12/23/2025 [id number] / / [id number] Description:bilateral ureter s Procedures * POLYSOMNOGRAPHY 4 [...] 09/03/2022) * ENDOTRACHEAL TUBE NOTE(Performed 09/03/2022) * KY REMV BLADDER,ILEAL CONDUIT(Performed 09/03/2022) Performed for Neurogenic [...] unknown * INSERTION CATHETER SUPRAPUBIC(Performed 02/05/2022) * KY CYSTOSCOPY CHEMODENERVATION(Performed 02/05/2022) * CULTURE URINE(Performed 11/15/2021) [...] congestive heart failure, Primary hypertension, Hypersomnia * KY CYSTOSCOPY CHEMODENERVATION(Performed 06/13/2021) Performed for Neurogenic bladder, [...] * CARDIAC EKG ORDER(Performed 02/21/2021) * CYTOLOGY NON-CLASSIFIED AD TAKER PANEL (STL)(Performed 02/21/2021) Performed for Cyst and [...] * CBC W AUTO DIFFERENTIAL(Performed 12/27/2020) * KY CYSTOSCOPY CHEMODENERVATION(Performed 12/25/2020) Performed for Overactive bladder, [...] dysfunction of the urinary bladder, Cystostomy care ([facility]) * URINALYSIS REFLEX MICROSCOPIC REFLEX CULTURE(Performed 11/22/2020) Performed for Neurogenic dysfunction of the urinary bladder, Cystostomy care ([facility]) * CULTURE URINE(Performed 11/22/2020) Performed for Dysuria * KY ANAL/URINARY MUSCLE STUDY(Performed 10/20/2020) Performed for Neurogenic bladder * [place] CYSTOMETROGRAM W/CCU NURSE(Performed 10/20/2020) Performed for Neurogenic bladder * CARDIAC [...] unknown * INSERTION CATHETER SUPRAPUBIC(Performed 04/11/2020) * [place] CYSTOSCOPY CHEMODENERVATION(Performed 04/11/2020) * SARS-COV-2 (COVID-19) IN [...] CATHETER SUPRAPUBIC(Performed 10/07/2019) Performed for N31.9 * [place] CYSTOSCOPY CHEMODENERVATION(Performed 10/07/2019) Performed for N31.9 * [...] unspecified constipation type * EGD(Performed 08/03/2019) * [place] EGD LESION ABLATION(Performed 08/03/2019) * [place] EGD FLEX TRANSORAL W BX SNGL OR MULT(Performed 08/03/2019) * [place] COLONOSCOPY, DIAGNOSTIC(Performed 08/03/2019) * [place] ED EGD FLEX TRANSORAL DX(Performed 08/03/2019) * [...] WITH CPAP IF INDICATED (08/06/2023 11:59 PM [facility]) Narrative Cresencio Ghosh MD - 08/06/2023 11:59 PM [facility] Cresencio Ghosh MD ? 08/14/2023 ??5:01 PM [facility] [place]? s Accredited by the [place] [employer] DIAGNOSTIC POLYSOMNOGRAPHY REPORT PATIENT NAME: Angelina Moya DATE OF : 1965 study Date: 08/05/2023 DATE OF INTERPRETATION: August 14, 2023 Referring Physician: Cresencio Ghosh MD cLINICAL iNDICATIONS: Symptoms suggestive of sleep apnea based on snoring, witnessed apnea and hypersomnia. ??Previous diagnostic study showed no significant sleep apnea? s. [place] Sleepiness Score of 15/24.The patient is a 57 year old Female who is 5' 8 and weighs 192.0 lbs. Her BMI equals 29.4. Polysomnogram Data: Overnight park maintenance technician attended polysomnography was carried out utilizing continuous digital monitoring at the [facility]. Montage included measurements of EEG [...] the overnight PSG including the patient questionnaire, park maintenance technician notes and all associated tabulated data. FOLLOW UP: My office will call the patient and arrange for follow up. Cresencio Ghosh MD Business Unit Directorcigarette and filter chief inspector [facility] Diplomat of the [place] [employer]iat[employer] and Neurology Board certified in Sleep Medicine Cresencio Ghosh MD SLEEP CENTER ORDERAB LES * (ABNORMAL) CULTURE URINE (05/08/2023 8:50 AM [facility]) Only the most recent of36 resultswithin the time period is included. Culture Urine >100,000 CFU/mL Enterobacter cloacae complex(A) KASSY 05/10/2023 12:54 AM [facility] Comment:Isolate is multi dione g resistant organism (MDRO). Culture Urine 10,000-50,000 CFU/mL urogenital maliha KASSY 05/10/2023 12:54 AM [facility] Urine URINE SPECIMEN OBTAINED BY CLEAN CATCH PROCEDURE / Unknown Collection / Unknown 05/08/2023 8:50 AM [facility] 05/08/2023 9:09 AM [facility] Narrative [facility] - 05/10/2023 12:54 AM [facility] This isolate is a multidrug resistant organism [...] Nel Cerna DO LAB - MICROBIOLOGY ORDERABLES [facility] [address] [place] [address], [facility] [phone] * CARDIAC EKG ORDER (04/04/2023 3:01 PM [...] 10? 3 /uL 04/02/2023 2:43 AM CDT [facility] RBC 4.23 3.80 - 5.20 10? 6 /uL 04/02/2023 2:43 AM CDT [facility] Hemoglobin 11.2(L) 12.0 - 15.6 g/dL 04/02/2023 2:43 AM [facility] Hematocrit 35.1 35.0 - 45.0 % 04/02/2023 2:43 AM [facility] MCV 83.0 80.7 - 98.3 fL 04/02/2023 2:43 AM [facility] MCH 26.5(L) 26.7 - 34.0 pg 04/02/2023 2:43 AM [facility] MCHC 31.9 30.8 - 35.9 g/dL 04/02/2023 2:43 AM [facility] RDW-SD 46.5 36.0 - 50.0 fL 04/02/2023 2:43 AM [facility] RDW-CV 15.6(H) 11.2 - 14.8 % 04/02/2023 2:43 AM [facility] Platelet Count 219 150 - 400 10? 3 /uL 04/02/2023 2:43 AM [facility] MPV 9.8 9.4 - 12.9 fL 04/02/2023 2:43 AM [facility] nRBC Absolute 0.00 0 10? 3 /uL 04/02/2023 2:43 AM [facility] nRBC Auto 0.0 0 /100 WBC 04/02/2023 2:43 AM [facility] Blood BLOOD SPECIMEN / Unknown Lab Venipuncture / Unknown 04/02/2023 2:31 AM CDT 04/02/2023 2:39 AM CDT Missy Sutherland MD LAB - HEMATOLOGY ORD ERABLES [facility] [address] [place] [phone], [facility] [phone] * (ABNORMAL) BASIC METABOLIC PANEL (CALCIUM TOTAL) (04/02/2023 2:31 AM CDT) Only the most recent of60 resultswithin the time period is included. BUN 16 7 - 26 mg/dL 04/02/2023 3:07 AM [facility] Creatinine 0.69 0.56 - 0.96 mg/dL 04/02/2023 3:07 AM [facility] Sodium 133(L) 136 - 145 mmol/L 04/02/2023 3:07 AM [facility] Potassium 3.9 3.5 - 4.5 mmol/L 04/02/2023 3:07 AM [facility] Chloride 102 98 - 107 mmol/L 04/02/2023 3:07 AM [facility] CO2 26 22 - 29 mmol/L 04/02/2023 3:07 AM [facility] Glucose 122(H) 70 - 115 mg/dL 04/02/2023 3:07 AM [facility] Calcium 8.3(L) 8.4 - 10.2 mg/dL 04/02/2023 3:07 AM [facility] Anion Gap 5(L) 6 - 16 04/02/2023 3:07 AM [facility] BUN/Creatinine Ratio 23 7 - 23 04/02/2023 3:07 AM [facility] Osmolality Calculated 278 275 - 295 mOsm/kg 04/02/2023 3:07 AM [facility] eGFR by CKD-EPI >90 >=90 mL/min/1.7 3 m2 04/02/2023 3:07 AM [facility] Blood BLOOD SPECIMEN / Unknown Lab Venipuncture / Unknown 04/02/2023 2:31 AM CDT 04/02/2023 2:39 AM CDT Missy Sutherland MD LAB - CHEMISTRY ORDE JOSÉ MIGUEL [facility] Organization Address City/State/ZIP Co de Phone Number [facility] [address] [place] [address], [facility] [phone] * PHOSPHORUS BLOOD (04/02/2023 2:31 AM CDT) Only the most recent of17 resultswithin the time period is included. Phosphorus 4.5 2.9 - 5.1 mg/dL 04/02/2023 3:07 AM [facility] Blood BLOOD SPECIMEN / Unknown Lab Venipuncture / Unknown 04/02/2023 2:31 AM CDT 04/02/2023 2:39 AM CDT Missy Sutherland MD LAB - CHEMISTRY MARKUS VALDEZ [facility] [address] [place] [address], [facility] [phone] * MAGNESIUM BLOOD (04/02/2023 2:31 AM CDT) Only the most recent of26 resultswithin the time period is included. Pathologist [facility] Magnesium 1.9 1.6 - 2.6 mg/dL 04/02/2023 3:07 AM CDT [facility] Blood BLOOD SPECIMEN / Unknown Lab Venipuncture / Unknown 04/02/2023 2:31 AM CDT 04/02/2023 2:39 AM CDT Missy Sutherland MD LAB - CHEMISTRY MARKUS VALDEZ Performing Organization Address City/[facility]/ZIP Co de Phone Number [facility] [address] [place] [address], [place] [phone] * EKG 12-LEAD (03/31/2023 9:32 PM CDT) Only the most recent of17 resultswithin the time period is included. Ventricular Rate 89 BPM [facility] Atrial Rate 89 BPM [facility] P-R Interval 176 ms [facility] QRS Duration ms 86 ms [facility] Q-T Interval ms 380 ms [facility] QTC Calculation (Bezet) 462 ms [facility] Calculated P [place] 41 degrees SL MUSE Calculated R [place] 31 degrees SL MUSE Calculated T [place] 47 degrees [facility] Interpretation EKG NORMAL SINUS RHYTHM NORMAL ECG WHEN COMPARED WITH ECG OF 04-SEP-2022 09:01, PREMATURE VENTRICULAR COMPLEXES ARE NO LONGER PRESENT Confirmed by SIGIFREDO SMITH MD ([id number]) on 04/03/2023 7:44:54 PM [facility] 03/31/2023 9:32 PM CDT 04/03/2023 7:44 [...] examination. > Dictated by Joaquín Bermudez MD, (manager residential). I, Chris Coker MD have personally reviewed and interpreted this examination/study. > Interpreting Provider: Chris Coker MD on 03/30/2023 10:35 PM Narrative 03/30/2023 10:35 PM CDT PROCEDURE: ??CT ABDOMEN PELVIS W CONTRAST, DATE/TIME OF EXAM: ??03/30/2023 4:07 PM, LOCATION ??[facility] INDICATION: R10.32: Abdominal pain, left lower quadrant [...] region (series 3 image 85). There is bmdy-nh-csrcyjuz fat stranding seen adjacent to the anastomosis [...] DATE/TIME OF EXAM: 03/30/2023 4:07 PM, LOCATION [facility] INDICATION: R10.32: Abdominal pain, left lower quadrant [...] region (series 3 image 85). There is gbhw-xm-pxecxkje fat stranding seenadjacent to the anastomosis at [...] thisexamination. > Dictated by Joaquín Bermudez MD, (manager residential). I, Chris Coker MD have personally reviewed and interpreted this examination/study. > Interpreting Provider: Chris Coker MD on 03/30/2023 10:35 PM Dari Lorenzana MD CT ORDERABLES * (ABNORMAL) URINALYSIS W/MICROSCOPIC NO CULTURE (03/30/2023 12:29 PM CDT) Color UA Yellow Straw, Yellow 03/30/2023 12:53 PM CDT [facility] Clarity UA Slt Cloudy(A) Clear 03/30/2023 12:53 PM CDT [facility] Specific [place] UA 1.020 1.005 - 1.030 03/30/2023 12:53 PM [facility] pH UA 6.0 5.0 - 8.0 pH 03/30/2023 12:53 PM [facility] Protein UA Negative Negative 03/30/2023 12:53 PM [facility] Glucose UA Negative Negative 03/30/2023 12:53 PM [facility] Ketone UA Negative Negative 03/30/2023 12:53 PM [facility] Bilirubin UA Negative Negative 03/30/2023 12:53 PM [facility] Blood UA 2+(A) Negative 03/30/2023 12:53 PM [facility] Nitrite UA Positive(A) Negative 03/30/2023 12:53 PM [facility] Leukocyte Esterase 1+(A) Negative 03/30/2023 12:53 PM [facility] Urobilinogen UA Negative Negative mg/dL 03/30/2023 12:53 PM [facility] RBC UA 3-5 None Seen, 0-2, 3-5 /HPF 03/30/2023 12:53 PM [facility] WBC UA 11-20(A) None Seen, 0-5 /HPF 03/30/2023 12:53 PM T [facility] Squamous Epithelial Cells UA 0-2 None Seen, 0-2, 3-5 /HPF 03/30/2023 12:53 PM [facility] Mucus UA 1+ /LPF 03/30/2023 12:53 PM [facility] Urine URINE SPECIMEN OBTAINED BY CLEAN CATCH PROCEDURE / Unknown Collection / Unknown 03/30/2023 12:29 PM CDT 03/30/2023 12:37 PM CDT [facility] - 03/30/2023 12:53 PM CDT Dari Lorenzana MD LAB - URINALYSIS ORD ERABLES [facility] [address] [place] [address], [facility] [phone] * (ABNORMAL) CBC W AUTO DIFFERENTIAL (03/30/2023 12:26 PM CDT) Only the most recent of73 resultswithin the time period is included. WBC 7.8 3.5 - 10.5 10? 3 /uL 03/30/2023 12:46 PM [facility] RBC 5.21(H) 3.80 - 5.20 10? 6 /uL 03/30/2023 12:46 PM [facility] Hemoglobin 13.7 12.0 - 15.6 g/dL 03/30/2023 12:46 PM [facility] Hematocrit 42.3 35.0 - 45.0 % 03/30/2023 12:46 PM [facility] MCV 81.2 80.7 - 98.3 fL 03/30/2023 12:46 PM [facility] MCH 26.3(L) 26.7 - 34.0 pg 03/30/2023 12:46 PM [facility] MCHC 32.4 30.8 - 35.9 g/dL 03/30/2023 12:46 PM [facility] RDW-SD 43.3 36.0 - 50.0 fL 03/30/2023 12:46 PM [facility] RDW-CV 14.8 11.2 - 14.8 % 03/30/2023 12:46 PM [facility] Platelet Count 224 150 - 400 10? 3 /uL 03/30/2023 12:46 PM [facility] MPV 9.6 9.4 - 12.9 fL 03/30/2023 12:46 PM [facility] nRBC Absolute 0.00 0 10? 3 /uL 03/30/2023 12:46 PM [facility] nRBC Auto 0.0 0 /100 WBC 03/30/2023 12:46 PM [facility] Neutrophils % 68.1 35.0 - 70.0 % 03/30/2023 12:46 PM [facility] Lymphocytes % 23.0 20.0 - 43.0 % 03/30/2023 12:46 PM [facility] Monocytes % 5.7 5.0 - 13.0 % 03/30/2023 12:46 PM [facility] Eosinophils % 2.1 0.0 - 6.0 % 03/30/2023 12:46 PM [facility] Basophil % 0.8 0.0 - 2.0 % 03/30/2023 12:46 PM T [facility] Neutrophils Absolute 5.31 1.60 - 7.00 10? 3 /uL 03/30/2023 12:46 PM [facility] Lymphocyte Absolute 1.79 1.10 - 3.90 10? 3 /uL 03/30/2023 12:46 PM T [facility] Monocytes Absolute 0.44 0.26 - 1.07 10? 3 /uL 03/30/2023 12:46 PM [facility] Eosinophils Absolute 0.16 0.00 - 0.47 10? 3 /uL 03/30/2023 12:46 PM [facility] Basophils Absolute 0.06 0.00 - 0.08 10? 3 /uL 03/30/2023 12:46 PM [facility] Immature Granulocytes % 0.3 0.0 - 1.0 % 03/30/2023 12:46 PM [facility] Immature Granulocytes Absolute 0.02 03/30/2023 12:46 PM [facility] Blood BLOOD SPECIMEN / Unknown Venipuncture / Unknown 03/30/2023 12:26 PM CDT 03/30/2023 12:39 PM CDT Dari Lorenzana MD LAB - HEMATOLOGY ORD ERABLES [facility] [address] [place] [phone], [facility] [phone] * (ABNORMAL) COMPREHENSIVE METABOLIC PANEL (03/30/2023 12:26 PM CDT) Only the most recent of49 resultswithin the time period is included. BUN 13 7 - 26 mg/dL 03/30/2023 1:06 PM [facility] Creatinine 0.55(L) 0.56 - 0.96 mg/dL 03/30/2023 1:06 PM [facility] Sodium 140 136 - 145 mmol/L 03/30/2023 1:06 PM [facility] Potassium 4.1 3.5 - 4.5 mmol/L 03/30/2023 1:06 PM [facility] Chloride 104 98 - 107 mmol/L 03/30/2023 1:06 PM [facility] CO2 26 22 - 29 mmol/L 03/30/2023 1:06 PM [facility] Glucose 129(H) 70 - 115 mg/dL 03/30/2023 1:06 PM [facility] Calcium 9.8 8.4 - 10.2 mg/dL 03/30/2023 1:06 PM [facility] Protein Total 8.6(H) 6.0 - 8.3 g/dL 03/30/2023 1:06 PM [facility] Albumin 4.3 3.4 - 5.0 g/dL 03/30/2023 1:06 PM [facility] Bilirubin Total 0.8 0.2 - 1.2 mg/dL 03/30/2023 1:06 PM [facility] Alkaline Phosphatase 124 40 - 150 U/L 03/30/2023 1:06 PM [facility] ALT 15 5 - 55 U/L 03/30/2023 1:06 PM [facility] AST 17 5 - 34 U/L 03/30/2023 1:06 PM [facility] Anion Gap 10 6 - 16 03/30/2023 1:06 PM [facility] BUN/Creatinine Ratio 24(H) 7 - 23 03/30/2023 1:06 PM [facility] Osmolality Calculated 292 275 - 295 mOsm/kg 03/30/2023 1:06 PM [facility] Albumin/Globulin Ratio 1.0(L) 1.1 - 2.3 03/30/2023 1:06 PM [facility] eGFR by CKD-EPI >90 >=90 mL/min/1.7 3 m2 03/30/2023 1:06 PM [facility] Blood BLOOD SPECIMEN / Unknown Venipuncture / Unknown 03/30/2023 12:26 PM CDT 03/30/2023 12:40 PM T Dari Lorenzana MD LAB - CHEMISTRY MARKUS VALDEZ Performing Organization Address City/[facility]/ZIP Co de Phone Number [address] [address], [facility] [phone] * (ABNORMAL) GLUCOSE - POINT OF CARE (02/23/2023 9:00 PM CDT) Only the most recent of32 resultswithin the time period is included. Glucose WB/POC 168(H) 70 - 115 mg/dL 02/23/2023 9:01 PM CDT [facility] Specimen Type Cap Fingerstick 2022 9:01 PM CDT [facility] Blood BLOOD SPECIMEN / Unknown 02/23/2023 9:00 PM CDT 02/23/2023 9:01 PM CDT Nel M Eryn DO LAB - POINT OF CAR E ORDERABLES Performing Organization Address [facility] Co de Phone Number [address] [address], [facility] [phone] * CULTURE BLOOD (02/23/2023 4:56 PM CDT) Only the most recent of16 resultswithin the time period is included. Culture No growth day 5 KASSY 02/28/2023 11:01 PM CDT [facility] Blood PERIPHERAL BLOOD / Unknown Lab Venipuncture / Unknown 02/23/2023 4:56 PM CDT 02/23/2023 5:03 PM CDT Nel Jacintombardo LAB - MICROBIOLOGY ORDERABLES Performing Organization Address City/[facility]/ZIP Co de Phone Number [facility] [address] [place] [address], [facility] [phone] * XR CHEST 1VW PORTABLE (02/23/2023 2:38 PM CDT) Only the most recent of9 resultswithin the time period is included. Anatomical Region Laterality Modality Chest Radiographic Estephanie ging 02/24/2023 10:0 7 AM CDT Narrative 02/24/2023 1:57 PM CDT PROCEDURE: ??XR CHEST 1VW PORTABLE, DATE/TIME OF EXAM: ??02/23/2023 2:38 PM, LOCATION ??[facility] INDICATION: Z98.890: History of ileal conduit COMPARISON: [...] Report dictated by Diogenes Perez MD, PhD (manager residential). George Tellez MD have personally reviewed and interpreted this examination/study. > Interpreting Provider: George Neal MD on 02/24/2023 1:57 PM Procedure Note George Neal MD - 02/24/2023 PROCEDURE: XR CHEST 1VW PORTABLE, DATE/TIME OF EXAM: 02/23/2023 2:38PM, LOCATION [facility] INDICATION: Z98.890: History of ileal conduit COMPARISON: [...] Report dictated by Diogenes Perez MD, PhD (manager residential). George Tellez MD have personally reviewed and interpreted this examination/study. > Interpreting Provider: George Neal MD on 02/24/2023 1:57 PM Nel Cerna DO DIAGNOSTIC IMAGING ORDERABLES * (ABNORMAL) URINALYSIS REFLEX TO MICROSCOPIC NO CULTURE (02/23/2023 1:41 PM [facility]) Only the most recent of2 resultswithin the time period is included. Color UA Yellow Straw, Yellow 02/23/2023 2:01 PM [facility] Clarity UA Cloudy(A) Clear 02/23/2023 2:01 PM [facility] Specific [place] UA 1.004(L) 1.005 - 1.030 02/23/2023 2:01 PM [facility] pH UA 5.0 5.0 - 8.0 pH 02/23/2023 2:01 PM [facility] Protein UA Negative Negative 02/23/2023 2:01 PM [facility] Glucose UA Negative Negative 02/23/2023 2:01 PM [facility] Ketone UA Negative Negative 02/23/2023 2:01 PM [facility] Bilirubin UA Negative Negative 02/23/2023 2:01 PM [facility] Blood UA 2+(A) Negative 02/23/2023 2:01 PM [facility] Nitrite UA Negative Negative 02/23/2023 2:01 PM [facility] Leukocyte Esterase 3+(A) Negative 02/23/2023 2:01 PM [facility] Urobilinogen UA Negative Negative mg/dL 02/23/2023 2:01 PM [facility] RBC UA 21-50(A) None Seen, 0-2, 3-5 /HPF 02/23/2023 2:01 PM [facility] WBC UA >100(A) None Seen, 0-5 /HPF 02/23/2023 2:01 PM [facility] WBC Clumps Moderate(A) None /HPF 02/23/2023 2:01 PM [facility] Bacteria UA Trace(A) None /HPF 02/23/2023 2:01 PM [facility] Yeast Budding UA Occasional( A) None /HPF 02/23/2023 2:01 PM [facility] Squamous Epithelial Cells UA 0-2 None Seen, 0-2, 3-5 /HPF 02/23/2023 2:01 PM CDT [facility] Urine URINE SPECIMEN FROM NEPHROSTOMY TUBE / Unknown Collection / Unknown 02/23/2023 1:41 PM CDT 02/23/2023 1:50 PM CDT Narrative [facility] - 02/23/2023 2:01 PM CDT Nel Cerna DO LAB - URINALYSIS O RDERABLES Performing Organization Address City/[facility]/ZIP Co de Phone Number [facility] [address] [place] [phone], [facility] [phone] * PREPARE (CROSSMATCH) RBC UNIT(S), 2 Units (02/22/2023 1:17 AM CDT) Only the most recent of7 resultswithin the time period is included. Unit Description -1 LR PRBC LV [facility] Unit ABO A [facility] Unit Rh NEG [facility] Product [facility] [id number] [facility] B[facility] Unit Donor # [id number] [facility] Unit Status released [facility] Product Code [id number] [facility] Blood Type Barcode 0600 [facility] Expiration Date S B[facility]OD [facility] Unit Description AS1 LR PRBC [facility] Unit ABO B [facility] Unit Rh NEG [facility] Product Number [id number] [facility] [facility] Unit Donor # [id number] [facility] Unit Status released [facility] BLOO D B[facility] LAB Product Code [id number] [facility] OD [facility]ANK LAB Blood Type Barcode 1700 [facility] Expiration Date [id number] S BLOOD BANK LAB Blood Bank BLOOD SPECIMEN / Unknown 02/18/2023 9:04 AM CDT Ludmila Nuñez SUPERVISOR POWDERED METAL-GLAZIER HELPER LAB - BLOOD BAN K ORDERABLES Performing Organization Address City/[facility]/ZIP Co de Phone Number [facility] [address] [place] [address], [facility] [phone] * ETT LINE PERFORMABLE (02/18/2023 12:23 PM CDT) Narrative Conner Juarez Anes Asst - 02/18/2023 12:23 PM CDT Conner Juarez Anes Asst ? 02/18/2023 12:24 PM Endotracheal Tube Placement: ? Patient Location: OR. Intubation Event Date/Time: ??02/18/2023 11:48 AM Procedure: intubation (79837). Procedure Section: ?? Sedation: under general anesthesia. [...] Antibody Screen NEG 02/18/2023 10:41 AM CDT [facility] ABO Rh AB NEG 02/18/2023 10:41 AM CDT [facility] Blood Bank BLOOD SPECIMEN / Unknown Venipuncture / Unknown 02/18/2023 8:41 AM CDT 02/18/2023 9:04 AM CDT Ludmila Nuñez SUPERVISOR POWDERED METAL-GLAZIER HELPER LAB - BLOOD BAN K ORDERABLES [facility] [address] [place] [address], [place] [phone] * US RETROPERITONEAL COMPLETE (02/10/2023 10:30 AM [...] cystectomy. > Dictated by Lai Blanco DO (manager residential). > Dictated by Lai Blanco DO (Facilities Administrator) 02/10/2023 8:22 AM IChris MD have personally reviewed and interpreted this examination/study. > Interpreting Provider: Chris Coker MD on 02/10/2023 12:01 PM Narrative 02/10/2023 12:01 PM CDT PROCEDURE: ??US RETROPERITONEAL COMPLETE, DATE/TIME OF EXAM: ??02/10/2023 8:09 AM, LOCATION ??[facility] INDICATION: N28.1: Renal cyst ADDITIONAL CLINICAL INFORMATION: Ordering Provider Reason For Exam: ??Further examination of Left renal hypo attenuating lesion seen on recent deliverer merchandise Note: ??Left renal cyst within the inferior [...] COMPLETE, DATE/TIME OF EXAM: 38:09 AM, LOCATION [facility] INDICATION: N28.1: Renal cyst ADDITIONAL CLINICAL INFORMATION: Ordering Provider Reason For Exam: Further examination of Left renalhypo attenuating lesion seen on recent deliverer merchandise Note: Left renal cyst within the inferior [...] cystectomy. > Dictated by Lai Blanco DO (manager residential). > Dictated by Lai Blanco DO (Facilities Administrator) 02/10/2023 8:22 AM I, Chris Coker MD have personally reviewed and interpreted this examination/study. > Interpreting Provider: Chris Coker MD on 02/10/2023 12:01 PM Emmy Morley MD ORDERABLES * LIPASE BLOOD (02/09/2023 9:00 AM CDT) Only the most recent of14 resultswithin the time period is included. Lipase 9 8 - 78 U/L 02/09/2023 9:28 AM T [facility] Blood BLOOD SPECIMEN / Unknown Lab Venipuncture / Unknown 02/09/2023 9:00 AM CDT 02/09/2023 9:06 AM CDT [facility] - 02/09/2023 9:28 AM CDT Lipase results from the [employer] Alinity analyzer may not be comparable with other methodologies. Emmy Morley MD LAB - CHEMISTRY ORD ERABLES Performing Organization Address City/[facility]/ZIP Co de Phone Number [address] [address], [place] [phone] * TROPONIN-I HIGH SENSITIVE REFLEX 1HOUR (02/08/2023 5:47 AM CDT) Troponin I High Sensitive 3 <=14 ng/L 02/08/2023 6:33 AM CDT [facility] Delta Troponin I HS 0 <6 ng/L 02/08/2023 6:33 AM CDT [facility] Blood BLOOD SPECIMEN / Unknown Venipuncture / Unknown 02/08/2023 5:47 AM CDT 02/08/2023 5:59 AM CDT Ancelmo Claire MD LAB - CHEMISTRY ORDERABLES Performing Organization Address [facility]/ZIP Co de Phone Number [address] [address], [place] [phone] * (ABNORMAL) URINE MICROSCOPIC ONLY REFLEX TO CULTURE (02/08/2023 4:42 AM CDT) Only the most recent of25 resultswithin the time period is included. Reflex Status Culture to follow 02/08/2023 6:54 AM CDT [facility] RBC UA 6-10(A) None Seen, 0-2, 3-5 /HPF 02/08/2023 6:54 AM T [facility] WBC UA 6-10(A) None Seen, 0-5 /HPF 02/08/2023 6:54 AM T [facility] Bacteria UA Trace(A) None /HPF 02/08/2023 6:54 AM T [facility] Squamous Epithelial Cells UA None Seen None Seen, 0-2, 3-5 /HPF 02/08/2023 6:54 AM T [facility] Mucus UA 2+ /LPF 02/08/2023 6:54 AM CDT [facility] Urine URINE SPECIMEN OBTAINED VIA INDWELLING URINARY CATHETER / Unknown Collection / Unknown 02/08/2023 4:42 AM CDT 02/08/2023 4:51 AM CDT Narrative [facility] - 02/08/2023 6:54 AM CDT Ancelmo Claire MD LAB - URINALYSI S ORDERABLES [facility] [address] [place] [address], [facility] [phone] * (ABNORMAL) URINALYSIS REFLEX MICROSCOPIC REFLEX CULTURE (02/08/2023 4:42 AM CDT) Only the most recent of28 resultswithin the time period is included. Color UA Straw Straw, Yellow 02/08/2023 5:18 AM [facility] Clarity UA Clear Clear 02/08/2023 5:18 AM [facility] Specific [place] UA 1.047(H) 1.005 - 1.030 02/08/2023 5:18 AM [facility] pH UA 6.0 5.0 - 8.0 pH 02/08/2023 5:18 AM [facility] Protein UA Negative Negative 02/08/2023 5:18 AM [facility] Glucose UA Negative Negative 02/08/2023 5:18 AM [facility] Ketone UA Negative Negative 02/08/2023 5:18 AM [facility] Bilirubin UA Negative Negative 02/08/2023 5:18 AM [facility] Blood UA 1+(A) Negative 02/08/2023 5:18 AM [facility] Nitrite UA Positive(A) Negative 02/08/2023 5:18 AM [facility] Leukocyte Esterase Trace(A) Negative 02/08/2023 5:18 AM [facility] Urobilinogen UA Negative Negative mg/dL 02/08/2023 5:18 AM [facility] Urine URINE SPECIMEN OBTAINED VIA INDWELLING URINARY CATHETER / Unknown Collection / Unknown 02/08/2023 4:42 AM CDT 02/08/2023 4:51 AM CDT Narrative [facility] - 02/08/2023 5:18 AM CDT Ancelmo Claire MD LAB - URINALYSI S ORDERABLES Performing Organization Address City/[facility]/ZIP Co de Phone Number [address] [address], [place] [phone] * TROPONIN-I HIGH SENSITIVE BASELINE + 1HR (02/08/2023 4:32 AM CDT) Troponin I High Sensitive <3 <=14 ng/L 02/08/2023 5:14 AM CDT [facility] Blood BLOOD SPECIMEN / Unknown Venipuncture / Unknown 02/08/2023 4:32 AM CDT 02/08/2023 4:43 AM CDT Ancelmo Claire MD LAB - CHEMISTRY ORDERABLES Performing Organization Address [facility] Co de Phone Number [address] [address], [facility] [phone] * CREATININE BODY FLUID ([facility] ONLY) (09/10/2022 9:44 AM CDT) Creatinine Fluid 0.5 Not Established For Fluids mg/dL 09/10/2022 10:21 AM CDT [facility] Comment:The analytical perfo rmance of this test has been independently validated by [facility]. A reference range has not been established. Comparison of this result with the concentration in blood, serum or plasma is recommended. Fluid PERITONEAL FLUID / Unknown Collection / Unknown 09/10/2022 9:44 AM CDT 09/10/2022 9:48 AM CDT Elsy DORAN LAB - BODY FLUID ORDERABLES Performing Organization Address City/[facility]/ZIP Co de Phone Number [address] [address], [place] [phone] * TRANSFUSE RED BLOOD CELL LEUKOREDUCED UNIT(S) (09/04/2022 5:50 PM LLAMA FARMER) Nel NAIDU - BLOOD [place] OD TRANSFUSION * TRANSFUSE RED BLOOD CELL LEUKOREDUCED UNIT(S) (09/04/2022 1:26 PM LLAMA FARMER) Nel Cerna DO NURSING - BLOOD [place] OD TRANSFUSION * TEG 6 GLOBAL HEMOSTASIS W/ LYSIS (09/04/2022 10:21 AM LLAMA FARMER) Pathologist [facility] Citrated Kaolin R (Reaction Time) 7.7 4.6 - 9.1 min 09/04/2022 11:54 AM [facility] Citrated Kaolin LY30 (Lysis) 0.9 0.0 - 2.6 % 09/04/2022 11:54 AM [facility] Citrated Functional Fibrinogen MA (Max Amplitude) 17.5 15.0 - 32.0 mm 09/04/2022 11:54 AM [facility] Citrated RapidTEG MA (Max Amplitude) 59.1 52.0 - 70.0 mm 09/04/2022 11:54 AM [facility] Blood BLOOD SPECIMEN / Unknown Venipuncture / Unknown 09/04/2022 10:21 AM [facility] 09/04/2022 10:49 AM [employer]ARM[facility] Nel Cerna DO LAB - HEMATOLOGY O RDERABLES Performing Organization Address [facility] Co de Phone Number [address] [address], [facility] [phone] * (ABNORMAL) TEG 6S PLATELET MAPPING (09/04/2022 10:21 AM LLAMA FARMER) [facility] TEGPLM (Max Amplitude) [place] 62.0 53.0 - 68.0 mm 09/04/2022 11:31 AM [facility] TEGPLM (Max Amplitude) ACTF 12.3 2.0 - 19.0 mm 09/04/2022 11:31 AM [facility] TEGPLM (Max Amplitude) ADP 54.2 45.0 - 69.0 mm 09/04/2022 11:31 AM [facility] TEGPLM (Max Amplitude) AA 52.0 51.0 - 71.0 mm 09/04/2022 11:31 AM [facility] TEGPLM %Inhibition ADP 15.7 0.0 - 17.0 % 09/04/2022 11:31 AM [facility] TEGPLM %Inhibition AA 20.1(H) 0.0 - 11.0 % 09/04/2022 11:31 AM [facility] TEGPLM %Aggregation ADP 84.3 83.0 - 100.0 % 09/04/2022 11:31 AM [facility] TEGPLM % Aggregation AA 79.9(L) 89.0 - 100.0 % 09/04/2022 11:31 AM [facility] Blood BLOOD SPECIMEN / Unknown Venipuncture / Unknown 09/04/2022 10:21 AM LL[facility]ARMER 09/04/2022 10:49 AM [facility] Nel Cerna LAB - HEMATOLOGY O RDERABLES Performing Organization Address City/[facility]/ZIP Co de Phone Number [address] [address], [facility] [phone] * (ABNORMAL) PTT [facility] (09/04/2022 10:21 AM [facility]) APTT 45.9(H) 23.0 - 38.4 Seconds 09/04/2022 11:12 AM [facility] Comment:Suggested therapeuti c range for full dose I.V. unfractionated heparin therapy for venous thromboembolism is 71 to 109 seconds. Blood BLOOD SPECIMEN / Unknown Venipuncture / Unknown 09/04/2022 10:21 AM LL[facility] FARMER 09/04/2022 10:49 AM [facility] Nel Cerna LAB - COAGULATION ORDERABLES [address] [address], [place] [phone] * (ABNORMAL) PT-INR [facility] (09/04/2022 10:21 AM [facility]) PT 21.1(H) 12.1 - 14.8 Seconds 09/04/2022 11:22 AM LLAMA FARMER [facility] INR 1.8 See Comment 09/04/2022 11:22 AM LLAMA FARMER [facility] Comment:The suggested therap eutic range for standard coumadin (warfarin) therapy is an INR of 2.0-3.0. For high-risk patients (Mechanical Mitral Valve Prosthesis, etc.), the suggested prophylactic therapeutic range is an INR of 2.5-3.5. Blood BLOOD SPECIMEN / Unknown Venipuncture / Unknown 09/04/2022 10:21 AM LLAMA FARMER 09/04/2022 10:49 AM [facility]ARMER Nel Reza Eryn PEREZ LAB - COAGULATION ORDERABLES Performing Organization Address City/[facility]/ZIP Co de Phone Number [address] [address], [facility] [phone] * FIBRINOGEN ACTIVITY (09/04/2022 10:21 AM LLAMA FARMER) Fibrinogen Clauss 254 200 - 400 mg/dL 09/04/2022 11:12 AM LLAMA FARMER [facility] Blood BLOOD SPECIMEN / Unknown Venipuncture / Unknown 09/04/2022 10:21 AM LLAMA FARMER 09/04/2022 10:49 AM LL[facility] FARMER Nel Reza Eryn PEREZ LAB - COAGULATION ORDERABLES Performing Organization Address [facility] Co de Phone Number [address] [address], [place] [phone] * LACTIC ACID BLOOD (09/04/2022 8:32 AM LLAMA FARMER) Only the most recent of23 resultswithin the time period is included. Lactic Acid-Stat 1.4 <=2.0 mmol/L 09/04/2022 9:12 AM LLAMA FARMER [facility] Blood BLOOD SPECIMEN / Unknown Venipuncture / Unknown 09/04/2022 8:32 AM [facility]ARMER 09/04/2022 8:52 AM [facility] Elsy Kraus APRN-GLAZIER HELPER LAB - CHEMISTRY ORDERABLES Performing Organization Address City/[facility]/ZIP Co de Phone Number [address] [place] [address], [facility] [phone] * (ABNORMAL) BLOOD GAS+COOX+LYTES+METAB ARTERIAL POCT (09/03/2022 7:05 PM [facility]) Only the most recent of9 resultswithin the time period is included. pH Arterial 7.38 7.35 - 7.45 pH 09/03/2022 7:05 PM [facility] pO2 Arterial 183(H) 80 - 100 mmHg 09/03/2022 7:05 PM [facility] pCO2 Arterial 41 35 - 45 mmHg 7:05 PM [facility] HCO3 Arterial 24 20 - 30 mmol/l 09/03/2022 7:05 PM [facility] BE Arterial -0.8 -2.0 - 2.0 mmol/L 09/03/2022 7:05 PM [facility] Oxyhemoglobin Arterial 96.4 % 09/03/2022 7:05 PM [facility] Dexoyhemoglobin (HHB) % 1.3 % 09/03/2022 7:05 PM [facility] Methemoglobin 1.1 0.0 - 2.0 % 09/03/2022 7:05 PM [facility] Carboxyhemoglobin 1.2 0.0 - 2.0 % 2022 7:05 PM [facility] Comment:Carboxyhemoglobin No rmal Concentration: Non-smokers: 0-2%; Smokers: 0- 9%; Toxic: >20% O2 Content Arterial 15.0 Interpret within clinical context ml/dL 09/03/2022 7:05 PM [facility] Hemoglobin by COOX 10.8(L) 12.0 - 15.6 g/dL 09/03/2022 7:05 PM [facility] O2 Saturation Arterial 99 90 - 100 % 09/03/2022 7:05 PM [facility] Sodium Whole Blood 135 135 - 145 mmol/L 09/03/2022 7:05 PM [facility] Potassium Whole Blood 4.8 3.5 - 5.5 mmol/L 09/03/2022 7:05 PM [facility] Chloride WB 105 101 - 111 mmol/L 09/03/2022 7:05 PM [facility] Calcium Ionized 1.29 mmol/L 7:05 PM [facility] Ionized Calcium pH Adjusted 1.28 1.19 - 1.34 mmol/L 09/03/2022 7:05 PM [facility] Anion Gap (AG) Arterial 11 8 - 18 mmol/L 09/03/2022 7:05 PM [facility] Glucose WB 160(H) 70 - 105 mg/dL 09/03/2022 7:05 PM [facility] Lactic Acid Whole Blood 1.2 <=2.0 mmol/L 09/03/2022 7:05 PM [facility] Blood, arterial ARTERIAL BLOOD SPECIMEN / Unknown 09/03/2022 7:05 PM [facility] 09/03/2022 7:06 PM [facility] Nel Cerna DO LAB - POINT OF CAR E ORDERABLES [address] [address], [facility] [phone] * BLOOD GAS ART+LYTES+METAB+COOX POC NOTIF (09/03/2022 7:02 PM [facility] FARMER) Only the most recent of3 resultswithin the time period is included. Comment Notification Label Only - See Separate Report 09/03/2022 8:30 PM [facility] Other MISCELLANEOUS SAMPLES / Unknown 09/03/2022 7:02 PM [facility] FARMER 09/03/2022 7:04 PM [facility] Nolberto Prado MD LAB - BLOOD GASES OR DERABLES [address] [address], [place] [phone] * CULTURE FUNGUS OTHER+FUNGUS SMEAR (09/03/2022 5:27 PM [facility] FARMER) Only the most recent of2 resultswithin the time period is included. Culture No fungus isolated KASSY 09/30/2022 8:51 AM CDT [facility] Fungus Stain No yeast or hyphae seen 09/30/2022 8:51 AM CDT [facility] Microbiology BIOPSY OF URETHRA / Unknown Collection / Unknown 09/03/2022 5:27 PM [facility] FARMER 09/03/2022 5:27 PM [facility]ARM[facility] Nel Cerna LAB - MICROBIOLOGY ORDERABLES Performing Organization Address [facility] Co de Phone Number [facility] [address] [place] [address], [facility] [phone] * CULTURE AFB+SMEAR (09/03/2022 5:27 PM LLAMA FARMER) Only the most recent of2 resultswithin the time period is included. Culture No acid-fast bacillus isolated 10/14/2022 8:53 AM CDT [facility] AFB Smear No acid-fast bacilli seen 10/14/2022 8:53 AM T [facility] Microbiology BIOPSY OF URETHRA / Unknown Collection / Unknown 09/03/2022 5:27 PM LLAMA FARMER 09/03/2022 5:27 PM [employer] FARMER Nel Cerna LAB - MICROBIOLOGY ORDERABLES Performing Organization Address [facility] de Phone Number [facility] [address] [place] [address], [facility] [phone] * CULTURE WOUND+GRAM STAIN (09/03/2022 5:26 PM LLAMA FARMER) Culture No growth KASSY 09/07/2022 7:52 AM LLAMA FARMER [facility] Gram Stain No organisms seen 023 7:52 AM LLAMA FARMER [facility] Gram Stain Light Polymorphonuclear cells 09/07/2022 7:52 AM LLAMA FARMER [facility] Microbiology BIOPSY OF URETHRA / Unknown Collection / Unknown 09/03/2022 5:26 PM LLAMA FARMER 09/03/2022 5:26 PM [facility]ARM[facility] Nel Cerna LAB - MICROBIOLOGY ORDERABLES Performing Organization Address [facility]/ZIP Co de Phone Number [facility] [address] [place] [address], [facility] [phone] * CULTURE TISSUE+GRAM STAIN (09/03/2022 5:26 PM LLAMA FARMER) Culture No growth KASSY 09/06/2022 11:51 PM [facility] Gram Stain Rare Polymorphonuclear cells 09/06/2022 11:51 PM [facility] Gram Stain No organisms seen 023 11:51 PM LLAMA FARMER [facility] Microbiology BIOPSY OF URETHRA / Unknown Collection / Unknown 09/03/2022 5:26 PM [facility] FARMER 09/03/2022 5:26 PM [facility] Nel Cerna DO LAB - MICROBIOLOGY ORDERABLES Performing Organization Address [facility] de Phone Number [facility] [address] [place] [address], [facility] [phone] * CULTURE ANAEROBE (09/03/2022 5:26 PM [facility] FARMER) Only the most recent of2 resultswithin the time period is included. Culture No anaerobic organisms isolated KASSY 09/09/2022 1:14 PM CDT [facility] Microbiology BIOPSY OF URETHRA / Unknown Collection / Unknown 09/03/2022 5:26 PM [facility] FARMER 09/03/2022 5:26 PM [facility] Nel Cerna DO LAB - MICROBIOLOGY ORDERABLES Performing Organization Address [facility] Co de Phone Number [facility] [address] [place] [address], [facility] [phone] * PATHOLOGY TISSUE (09/03/2022 3:58 PM LLAMA FARMER) Case Report Surgical Pathology Report ? Case: [id number] ? Authorizing Provider: ??Nel Cerna, DO ?Collected: ? 09/03/2022 03:58 PM ? Ordering Location: ? [facility] ?Received: ?09/04/2022 07:41 AM ? Pathologist: ? Missy Smith MD ? Specimens: ?? A) - Urinary Bladder, bladder ? B) - Soft Tissue, Other, Urethral Diverticulum Wall ? 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 09/06/2022 12:45 PM [facility] Clinical History The patient is a 56 year old woman with neurogenic bladder with refractory bladder spasms/pain and recurrent urinary tract infections. 09/06/2022 12:45 PM [facility] Gross Description The [...] adipose tissue has no distinct lymph nodes. Global Logistics Manager sections are submitted as follows: A1 right [...] submitted in cassette B1. 09/06/2022 12:45 PM [facility] Disclaimer The performance characteristics of all immunohistochemical and indirect immunofluorescence stains (if any) cited in this report were determined by the Histopathology Laboratory of [facility]. Some of these tests were developed [...] the attending (teaching) pathologist. 09/06/2022 12:45 PM [facility] Embedded Images 09/06/2022 12:45 PM [facility] Biopsy, NOS (Urinary Bladder) 09/03/2022 3:58 PM [facility] 09/04/2022 7:41 AM [facility] Comment:Pre-op diagnosis: Neurogenic bladder Urge incontinence Bladder pain Continuous leakage of urine Recurrent UTI Biopsy, Excision (Soft Tissue, Other) 09/03/2022 3:58 PM [facility]ER 09/04/2022 7:41 AM [facility] Comment:Pre-op diagnosis: Neurogenic bladder Urge incontinence Bladder pain Continuous leakage of urine Recurrent UTI Nel Cerna DO LAB - PATHOLOGY/CY TOLOGY ORDERABLES [facility] [address] [facility] [place] [address], [facility] [phone] * IV PLACEMENT PERFORMABLE (09/03/2022 12:39 PM [facility]AMA FARMER) Narrative Charles Kemp MD - 09/03/2022 12:39 PM [facility]ER Charles Kepm MD ? 09/03/2022 12:41 PM Peripheral IV Line Placement: Procedure: IV start ([id number]). Procedure Section: ?? Skin Prep: Chloraprep. Orientation: [...] * ETT LINE PERFORMABLE (09/03/2022 12:06 PM [facility] FARMER) Narrative Charles Kemp MD - 09/03/2022 12:06 PM [facility]ER Charles Kemp MD ? 09/03/2022 12:09 PM Endotracheal Tube Placement: ? Patient Location: OR. Intubation Event Date/Time: ??09/03/2022 11:20 AM Procedure: intubation (67041). Procedure Section: ?? Sedation: under general anesthesia. [...] * ARTERIAL LINE PERFORMABLE (09/03/2022 11:45 AM [facility] FARMER) Narrative Charles Kemp MD - 09/03/2022 11:45 AM [facility]ER Charles Kemp MD ? 09/03/2022 11:47 AM Arterial Line Placement Procedure Note Patient Location: OR. Procedure: Arterial Line ([id number]). Procedure Section ?? Consent: informed consent was [...] CT RENAL STONE PROTOCOL (05/29/2022 12:53 PM [facility] FARMER) Only the most recent of2 resultswithin the time period is included. Anatomical Region Laterality Modality Abdomen Computed Tomogra phy 05/29/2022 1:03 PM [facility]ER Impressions 05/29/2022 1:09 PM [facility]ER IMPRESSION: 1. ??No renal stones or obstruction. 2. ??Percutaneous cystostomy tube has decompressed the bladder. ??There are approximately 3 stones within the bladder 3. ??Other chronic and incidental findings as described. > Interpreting Provider: Yasmine Schmitt MD on 05/29/2022 1:09 PM Narrative 05/29/2022 1:09 PM [facility] PROCEDURE: ??CT RENAL STONE, DATE/TIME OF EXAM: ??05/29/2022 12:58 PM, LOCATION ??[facility] INDICATION: R39.89: Other symptoms and signs involving [...] DATE/TIME OF EXAM: 05/29/2022 12:58 PM, LOCATION [facility] INDICATION: R39.89: Other symptoms and [...] MD on 05/29/2022 1:09 PM Kay Palmer SUPERVISOR POWDERED METAL-GLAZIER HELPER CT ORDERABLES * XR ANKLE LEFT 3VW [...] DATE/TIME OF EXAM: ??04/05/2022 6:34 PM, LOCATION ??[facility] INDICATION: M79.672: Pain in left [...] MORE, DATE/TIME OF EXAM: 26:34 PM, LOCATION [facility] INDICATION: M79.672: Pain in left [...] MD on 04/05/2022 6:39 PM Kiesha Rodriguez SUPERVISOR POWDERED METAL-GLAZIER HELPER DIAGNOSTIC IM AGING ORDERABLES * XR FOOT [...] DATE/TIME OF EXAM: ??04/05/2022 5:48 PM, LOCATION ??[facility] INDICATION: M79.672: Pain in left [...] DATE/TIME OF EXAM: 04/05/2022 5:48 PM, LOCATION [facility] INDICATION: M79.672: Pain in left [...] MD on 04/05/2022 5:57 PM Kiesha Rodriguez SUPERVIS[employer] DIAGNOSTIC IM AGING ORDERABLES * CARDIAC RHYTHM [...] Negative [facility] Comment:[address] [place] [place] POCT 1.005 1.002 - 1.[address] [facility] Ketone UA negative Negative [facility] Bilirubin UA POCT negative Negative [facility] Glucose UA negative Negative [facility] Expiration Date 05/03/[address] [facility] Lot # [id number] [facility] QC Verified Yes Yes [facility] Urine URINE / Unknown 10/29/2021 1 1:13 AM CDT Dave Aparicio MD LAB - POINT OF CARE ORDERABLES [facility] [address] [facility], [place] [address] [address] [address], [facility] [phone] * FERRITIN (10/24/2021 3:40 PM CDT) Only the most recent of2 resultswithin the time period is included. Ferritin 55 5 - 204 ng/mL [facility] INSURANCE BILL Blood BLOOD SPECIMEN / Unknown 10/24/2021 3:40 PM CDT 10/24/2021 Narrative Resulting Agency Comment Lab Testing performed at: [facility] [address] [facility] ?? Ty CRAWFORD [id number] Cresencio Ghosh MD LAB - CHEMISTRY OR[facility]ionna [facility] INSURANCE BILL [address] [place] [address] * POLYSOMNOGRAM WITH CPAP IF INDICATED (09/03/2021 8:30 AM LLAMA FARMER) Narrative Elena Lee - 09/03/2021 8:30 AM [employer]AMA FARMER Cresencio Ghosh MD ? 09/03/2021 ??8:31 AM [facility] Sleep [facility] DIAGNOSTIC POLYSOMNOGRAPHY REPORT Name: ??Angelina Moya Date of : 1965 Date of Test: ??09/02/2021 Date of interpretation: 09/03/2021 Referring Physician: Dr. Cresencio Ghosh CLINICAL INDICATION: ?? Symptoms suggestive of obstructive sleep apnea with snoring, witnessed apnea, disrupted sleep with excessive day time sleepiness and [place] Sleepiness Score of 15 /24. Weight 229 pounds, Ht 68 inches with BMI of 34.7. PROCEDURE: Overnight park maintenance technician attended polysomnography was carried out utilizing continuous digital monitoring at the [facility] [place]. Montage included measurements of EEG (electroencephalography), EOG [...] the overnight PSG including the patient questionnaire, park maintenance technician notes and all associated tabulated data. FOLLOW UP: My office will call the patient and arrange for follow up. Cresencio Ghosh MD Business Unit Director Sleep Center [facility] and [facility] Diplomate of the [place] [employer] of Psychiatry and Neurology Board certified in Sleep Medicine Procedure Note Cresencio Ghosh MD - 09/03/2021 8:30 AM CST Images from the original note were not included. [facility] Sleep Services [facility] DIAGNOSTIC POLYSOMNOGRAPHY REPORT Name: Angelina Moya Date of : 1965 Date of Test: 09/02/2021 Date of interpretation: 09/03/2021 Referring Physician: Dr. Cresencio Ghosh CLINICAL INDICATION: Symptoms suggestive of obstructive sleep apnea withsnoring, witnessed apnea, disrupted sleep with excessive day timesleepiness and [place] Sleepiness Score of 15 /24. Weight 229 pounds, Ht68 inches with BMI of 34.7. PROCEDURE: Overnight park maintenance technician attended polysomnography was carried out utilizingcontinuous digital monitoring at the [facility]. Montageincluded measurements of EEG (electroencephalography), EOG(electro-oculography), EMG [...] using 1A rule and 2.1 per hour [id number] rule. There was evidence for upper airway [...] on the overnight PSGincluding the patient questionnaire, park maintenance technician notes and all associatedtabulated data. FOLLOW UP: My office will call the patient and arrange for follow up. Cresencio Ghosh MD Business Unit Director Sleep Center [facility] Diplomate of the [place] [employer] of Psychiatry and Neurology Board certified in Sleep Medicine Cresencio Ghosh MD SLEEP CENTER ORDERAB LES * LAB RESULTS ORDER (06/06/2021) 06/06/2021 Narrative 06/06/2021 Ordered by an unspecified provider. Scanned Document LAB - THERAPEUTIC DR OJEDA MONITORING ORDERABLES * CYTOLOGY NON-CLASSIFIED AD TAKER PANEL (STL) (02/21/2021 11:35 AM CDT) Case Report Medical Cytology Report ? Case: [id number] ? Authorizing Provider: ??Christopher Rueda, Collected: ? 02/21/2021 11:35 AM ? Ordering Location: ? [facility] ?Received: ?02/21/2021 11:56 AM ? Pathologist: ? Ben Hodge MD ? Specimen: ?Cyst Fluid, Tail of pancreas cyst ? 02/22/2021 3:25 PM [facility] Specimen Adequacy Adequate cellularity for evaluation. 02/22/2021 3:25 PM [facility] Final Diagnosis Pancreatic cyst, EUS-FNA: - Cyst contents with mildly atypical, but degenerated cells of uncertain origin and significance (see comment) - Negative for high grade dysplasia 02/22/2021 3:25 PM [facility] Clinical History The patient [...] or amylase testing. 02/22/2021 3:25 PM CDT [facility] Gross Description 1 ThinPrep pap stained slide, 1 cell block from 10cc pink cloudy fluid 02/22/2021 3:25 PM CDT [facility] Microscopic Description A ThinPrep slide [...] with a pseudocyst. 02/22/2021 3:25 PM T [facility] Disclaimer The performance characteristics of all immunohistochemical and indirect immunofluorescence stains (if any) cited in this report were determined by the Histopathology Laboratory of [facility]. Some of these tests rely on the use of analyte-specific reagents and are subject to specific labeling requirements by the US Food and Drug Administration. Such tests were developed by the Histology Laboratory of [facility] and have not been cleared or approved [...] attending (teaching) pathologist. 02/22/2021 3:25 PM CDT [facility] Embedded Images 02/22/2021 3:25 PM CDT [facility] Pathology/Cytolo gy CYST FLUID SPECIMEN / Unknown Collection / Unknown 02/21/2021 11:35 AM CDT 02/21/2021 11:56 AM CDT Christopher Cortés MD LAB - PATHOL OGY/CYTOLOGY ORDERABLES [facility] [address] [facility]. [place], [place] [address] [phone] * POTASSIUM WHOLE BLD (02/21/2021 10:09 AM CDT) Potassium Whole Blood 4.2 3.5 - 5.5 mmol/L 02/21/2021 10:17 AM CDT [facility] Blood WHOLE BLOOD SPECIMEN / Unknown Venipuncture / Unknown 02/21/2021 10:09 AM CDT 02/21/2021 10:09 AM CDT Christopher Cortés MD LAB - CHEMIS TRY ORDERABLES [facility] [address] [place] [address], [facility] [phone] * ENDOSCOPIC ULTRASONOGRAPHY, GI (02/21/2021 8:10 AM CDT) Pathologist [facility] Report Endoscopy POC Endoscopy Department Report _ [...] The patient ?tolerated the procedure well. The [id number] was ?introduced through the mouth, and advanced [...] via fine ? needle aspiration. A 22-gauge [employer] Biopsy needle was used. Color ? Doppler [...] Procedure Code(s): ? --- Professional --- ? 33836, Esophagogastroduod enoscopy, flexible, transoral; with ? transendoscopic ultrasound-guided intramural or transmural fine needle ? aspiration/biopsy( s), (includes endoscopic ultrasound examination ? limited to the esophagus, stomach or duodenum, and adjacent structures) Diagnosis Code(s): ?--- Professional --- ?K86.2, Cyst of pancreas CPT copyright 2019 [place] [employer]. All rights reserved. The codes documented in this report are preliminary and upon health information coder review may be revised to meet current compliance requirements. Christopher Cortés MD 02/21/2021 11:06:27 AM Note Initiated On: 02/21/2021 8:10 AM Number of Addenda: 0 ? [facility] ? [address] PROVATION 02/21/2021 8:10 AM CDT Christopher Cortés MD GI PROCEDURE ORDERABLES [facility] * HEMOGLOBIN A1C (02/01/2021 4:15 PM CDT) Only the most recent of3 resultswithin the time period is included. Hemoglobin A1c 4.9 4.4 - 6.3 % 02/02/2021 9:21 AM CDT [facility] Estimated Average Glucose 94 mg/dL 02/02/2021 9:21 AM CDT [facility] Comment: HbA1c Interpretation: Treatment target values recommended by ADA and other clinical organizations should be used to evaluate metabolic control in patients. Treatment Target Values: Normal : < 5.7% Pre-diabetes: 5.7-6.4% Diabetes: Equal to or greater than 6.5% Reference: [place] [employer] Standards of Care in Diabetes -2014 In patients 70 years and older consider HbA1c target range of 7.0-7.5% Reference: ??Diabetes Mellitus in Older People: Position Statement on behalf of the International Association of Gerontology and Geriatrics (IAGG), the Diabetes Working Democrat for Older People (EDWPOP), and the International Task Force of Experts in Diabetes. ??Dallin Rodriguez et al. J [place] [employer] Association. 2012 Test results diagnostic of diabetes should be repeated for confirmation. The Sebia Capillary 2 assay for the measurement of HbA1c is a National Glycohemoglobin Standardization Program (NGSP)certified method. Blood BLOOD SPECIMEN / Unknown Lab Venipuncture / Unknown 02/01/2021 4:15 PM CDT 02/01/2021 4:38 PM CDT Christopher Cortés MD LAB - CHEMIS TRY ORDERABLES Performing Organization Address City/[facility]/ZIP Co de Phone Number [facility] [address] [address], [facility] [phone] * (ABNORMAL) SLIDE SCAN HEMATOLOGY (12/27/2020 2:19 PM CDT) Only the most recent of2 resultswithin the time period is included. Platelet Estimation Normal Normal, Adequate platelets 12/27/2020 3:35 PM CDT [facility] Comment:Manual platelet coun t 225 Clumped Platelets 2+(A) None 12/27/2020 3:35 PM CDT [facility] Blood BLOOD SPECIMEN / Unknown Venipuncture / Unknown 12/27/2020 2:19 PM CDT 12/27/2020 2:22 PM CDT Ben Wilson PA-C LAB - HEMATOLOGY OR DERABLES [facility] [address] [place] [address] * LARYNGEAL MASK AIRWAY (12/25/2020 10:46 AM CDT) Narrative Ariana Koroma APRN-BOOT AND SHOE REPAIRMAN - 12/25/2020 10:46 AM CDT Ariana Koroma APRN-BOOT AND SHOE REPAIRMAN ? 12/25/2020 10:46 AM LMA Placement Procedure/LDA [...] Staff Section ?? Anesthesia Provider: Ariana Koroma APRN-BOOT AND SHOE REPAIRMAN, Performed the procedure Marina Blanca DO GENERAL ANESTHESIA ORDERABLES * [place] CYSTOMETROGRAM W/CCU NURSE, [place] ANAL/URINARY MUSCLE STUDY (10/20/2020 11:16 AM CDT) [...] * (ABNORMAL) POTASSIUM BLOOD (08/14/2020 11:09 AM LLAMA FARMER) Potassium 2.9(L) 3.5 - 5.1 mmol/L 08/14/2020 11:29 AM LLAMA FARMER [facility] Blood BLOOD SPECIMEN / Unknown Venipuncture / Unknown 08/14/2020 11:09 AM LLAMA FARMER 08/14/2020 11:14 AM LLAMA FARMER Eleazar Thomas DO LAB - CHEMISTRY ORD ERABLES Performing Organization Address City/[facility]/ZIP Co de Phone Number [facility] [address] [place] [address] * SARS-COV-2 (COVID-19) IN HOUSE (08/11/2020 3:30 PM LLAMA FARMER) Only the most recent of3 resultswithin the time period is included. Pathologist [facility] COVID-19 PCR Not detected Not detected 08/12/2020 4:08 AM LLAMA FARMER [facility] Microbiology SPECIMEN FROM NASOPHARYNGEAL STRUCTURE / Unknown Collection / Unknown 08/11/2020 3:30 PM LLAMA FARMER 08/11/2020 3:30 PM LLAMA FARMER Narrative [facility] - 08/12/2020 4:08 AM LLAMA FARMER This nucleic acid amplification assay performance was validated by [facility]. This test has been authorized [...] Cornejo MD LAB - MICROBIOLOGY O RDERABLES [facility] [address] [place] [address], [facility] [phone] * (ABNORMAL) AMYLASE BLOOD (07/31/2020 2:10 PM LLAMA FARMER) Pathologist [facility] Amylase 18(L) 25 - 125 U/L 07/31/2020 9:26 PM LLAMA FARMER [facility] Comment:Attention clinician: Reference Range change. Blood BLOOD SPECIMEN / Unknown 07/31/2020 2:10 PM LLAMA FARMER 07/31/2020 3:36 PM LLAMA FARMER Massiel Melara MD LAB - CHEMISTRY O RDERABLES Performing Organization Address City/State/[facility] Co de Phone Number [facility] [address] [place] [address] * FL WATER SOLUBLE LOWER GI (05/10/2020 11:20 AM LLAMA FARMER) Anatomical Region Laterality Modality Abdomen Radio Fluoroscop y 05/10/2020 11:5 1 AM LLAMA FARMER Narrative 05/10/2020 11:53 AM LLAMA FARMER Water-soluble lower GI Indication for examination: Colonic [...] SPECIALIST (02/16/2020 1:27 PM CDT) Simin Chapman SUPERVISOR [employer] HELPER OUTPATIENT RE FERRALS * TROPONIN I (01/29/2020 1:16 AM CDT) Only the most recent of17 resultswithin the time period is included. Troponin I 0.012 <0.038 ng/mL 01/29/2020 1:53 AM CDT [facility] Blood BLOOD SPECIMEN / Unknown Lab Venipuncture / Unknown 01/29/2020 1:16 AM CDT 01/29/2020 1:32 AM CDT Kim Parth Jay [facility] LAB - CHEMISTRY ORDERABLES [facility] [address] [address] * CT HEAD WO CONTRAST (01/28/2020 4:47 [...] on 01/28/2020 at 4:58 PM Kim Jay SUPERVISOR [employer] CT ORDERABLES * ENDOSCOPY, COLON, SCREENING (11/29/2019) Provider Unknown GI PROCEDURE ORDERAB LES * (ABNORMAL) DIFFERENTIAL MANUAL (09/14/2019 6:00 AM CDT) Only the most recent of2 resultswithin the time period is included. WBC Auto 9.0 x10E9/L 09/14/2019 8:20 AM CDT [facility] WBC Corrected 09/14/2019 8:20 AM CDT [facility] nRBC 09/14/2019 8:20 AM CDT [facility] Neutrophil % Manual 70 44 - 73 % 09/14/2019 8:20 AM CDT [facility] Lymphocytes % Manual 14(L) 20 - 43 % 09/14/2019 8:20 AM CDT [facility] Monocytes % Manual 10 5 - 13 % 09/14/2019 8:20 AM CDT [facility] Eosinophils % Manual 1 0 - 6 % 09/14/2019 8:20 AM CDT [facility] Band % Manual 3 0 - 11 % 09/14/2019 8:20 AM CDT [facility] Myelocytes % Manual 2(H) <=0 % 09/14/2019 8:20 AM CDT [facility] Cells Counted 100 # cells 09/14/2019 8:20 AM CDT [facility] RBC Morphology Normal 09/14/2019 8:20 AM CDT [facility] WBC Morph Normal 09/14/2019 8:20 AM CDT [facility] Platelet Estimation Normal 09/14/2019 8:20 AM CDT [facility] Blood BLOOD SPECIMEN / Unknown Lab Venipuncture / Unknown 09/14/2019 6:00 AM CDT 09/14/2019 6:07 AM CDT Danis Kirby MD LAB - HEMATOLOGY ORD ERABLES [facility] [address] [address] * (ABNORMAL) C DIFFICILE GDH AG + TOXIN A+B (09/13/2019 3:16 PM CDT) Only the most recent of2 resultswithin the time period is included. Pathologist [facility] Interpretation C difficile Indeterm inate(A) Negative for toxigenic C. difficile 09/13/2019 10:03 PM CDT [facility] Stool STOOL SPECIMEN / Unknown Collection / Unknown 09/13/2019 3:16 PM CDT 09/13/2019 3:26 PM CDT Narrative [facility] - 09/13/2019 10:03 PM CDT Indeterminate results reflex to a C. difficile by PCR test. See separate report. Danis Kirby MD LAB - MICROBIOLOGY O SARI Performing Organization Address City/[facility]/ZIP Co de Phone Number [facility] [address] [place] [address], [facility] [phone] * C DIFFICILE BY PCR (09/13/2019 3:16 PM CDT) Pathologist [facility] C difficile Toxin B Gene Not detected Not detected, Invalid 09/14/2019 10:03 AM CDT [facility] Stool STOOL SPECIMEN / Unknown Collection / Unknown 09/13/2019 3:16 PM CDT 09/13/2019 3:26 PM CDT Danis Kirby MD LAB - MICROBIOLOGY O SARI Performing Organization Address City/[facility]/ZIP Co de Phone Number [facility] [address] [facility] [place] [address], [facility] [phone] * RESPIRATORY PATHOGEN PANEL BY PCR (09/09/2019 3:34 PM CDT) Pathologist [facility] Adenovirus PCR Not detected Not detected, Invalid, Indeterminate 09/09/2019 8:28 PM CDT [facility] Coronavirus PCR Not detected Not detected, Invalid, Indeterminate 09/09/2019 8:28 PM CDT [facility] Human Metapneumovirus PCR Not detected Not detected, Invalid, Indeterminate 09/09/2019 8:28 PM CDT [facility] Human Rhinovirus/Entero virus PCR Not detected Not detected, Invalid, Indeterminate 09/09/2019 8:28 PM CDT [facility] Influenza A PCR Not detected Not detected, Equivocal, Invalid, Indeterminate 09/09/2019 8:28 PM CDT [facility] Influenza B PCR Not detected Not detected, Invalid, Indeterminate 09/09/2019 8:28 PM CDT [facility] Parainfluenza Virus 1 PCR Not detected Not detected, Invalid, Indeterminate 09/09/2019 8:28 PM CDT [facility] Parainfluenza Virus 2 PCR Not detected Not detected, Invalid, Indeterminate 09/09/2019 8:28 PM CDT [facility] Parainfluenza Virus 3 PCR Not detected Not detected, Invalid, Indeterminate 09/09/2019 8:28 PM CDT [facility] Parainfluenza Virus 4 PCR Not detected Not detected, Invalid, Indeterminate 09/09/2019 8:28 PM CDT [facility] Respiratory Syncytial Virus PCR Not detected Not detected, Invalid, Indeterminate 09/09/2019 8:28 PM CDT [facility] Bordetella pertussis PCR Not detected Not detected, Invalid 09/09/2019 8:28 PM CDT [facility] Chlamydia pneumoniae PCR Not detected Not detected, Invalid, Indeterminate 09/09/2019 8:28 PM T [facility] Mycoplasma pneumoniae PCR Not detected Not detected, Invalid, Indeterminate 09/09/2019 8:28 PM T [facility] Microbiology SPECIMEN FROM NASOPHARYNGEAL STRUCTURE / Unknown Collection / Unknown 09/09/2019 3:34 PM CDT 09/09/2019 3:51 PM CDT Narrative [facility] - 09/09/2019 8:28 PM CDT This test is able to detect the following human coronaviruses: HKU1, NL63, 229E, and OC43. It will NOT detect 2019 Novel Coronavirus (2019-nCoV). If 2019-nCoV is suspected contact Infection Prevention for isolation and testing guidance. Asha Key DO LAB - MICROBIOLOGY O RDERABLES [facility] [address] [place] [address], [facility] [phone] * CULTURE VRE (08/27/2019 4:50 AM LLAMA FARMER) Only the most recent of5 resultswithin the time period is included. Culture Negative for vancomycin-resi stant Enterococci (VRE) KASSY 08/28/2019 1:14 PM LLAMA FARMER [facility] Microbiology ENTIRE RECTUM / Unknown Collection / Unknown 08/27/2019 4:50 AM LLAMA FARMER 08/27/2019 4:57 AM LLAMA FARMER Danis Kirby MD LAB - MICROBIOLOGY O SARI Performing Organization Address [facility] de Phone Number [facility] [address] [place] [address], [facility] [phone] * (ABNORMAL) CULTURE MRSA (08/27/2019 4:50 AM LLAMA FARMER) Only the most recent of10 resultswithin the time period is included. Culture Growth of Staphylococcus aureus methicillin-resist ant (MRSA)(A) KASSY 08/28/2019 1:13 PM LLAMA FARMER [facility] Microbiology ENTIRE RECTUM / Unknown Collection / Unknown 08/27/2019 4:50 AM LLAMA FARMER 08/27/2019 4:57 AM LLAMA FARMER Narrative [facility] - 08/28/2019 1:13 PM LLAMA FARMER Methicillin-resistant Staphylococci (MRSA) are resistant to all currently available beta-lactam antibiotics with the exception of the newer cephalosporins with anti-MRSA activity. Contact precautions required. Danis Kirby MD LAB - MICROBIOLOGY O SARI Performing Organization Address [facility] de Phone Number [facility] [address] [place] [address], [facility] [phone] * (ABNORMAL) PROCALCITONIN LEVEL (08/17/2019 6:18 PM LLAMA FARMER) Procalcitonin 0.10(H) <0.10 ng/mL 08/17/2019 6:58 PM LLAMA FARMER [facility] Blood BLOOD SPECIMEN / Unknown Lab Venipuncture / Unknown 08/17/2019 6:18 PM LLAMA FARMER 08/17/2019 6:21 PM LLAMA FARMER Narrative [facility] - 08/17/2019 6:58 PM LLAMA FARMER The change in procalcitonin (PCT) concentration over [...] Change in Procalcitonin Calculator is available at [email or web address]-KOC-Swhneksqdc.Videojug ?? If clinical picture has not improved and PCT remains high, reevaluate and consider treatment failure or other causes. Mateo Díaz MD LAB - CHEM ISTRY ORDERABLES [facility] [address] [place] [address] * (ABNORMAL) DRUG SCREEN TOX URINE PANEL (08/17/2019 5:02 PM LLAMA FARMER) Only the most recent of2 resultswithin the time period is included. Pathologist [facility] Amphetamines Screen Urine Not detected Not detected 08/17/2019 5:26 PM [facility] Barbiturates Screen Urine Not detected Not detected 08/17/2019 5:26 PM [facility] Benzodiazepines Screen Urine Not detected Not detected 08/17/2019 5:26 PM [facility] Cannabinoids Screen Urine Not detected Not detected 08/17/2019 5:26 PM [facility] Cocaine Screen Urine Not detected Not detected 08/17/2019 5:26 PM [facility] Fentanyl Urine Not detected Not detected 08/17/2019 5:26 PM [facility] Methadone Screen Urine Not detected Not detected 08/17/2019 5:26 PM LLAMA FARMER [facility] Opiate Screen Urine Detected(A) Not detected 08/17/2019 5:26 PM [facility] Phencyclidine Screen Urine Not detected Not detected 08/17/2019 5:26 PM [facility] Urine URINE / Unknown Collection / Unknown 08/17/2019 5:02 PM LLAMA FARMER 08/17/2019 5:05 PM LLAMA FARMER Narrative [facility] - 08/17/2019 5:26 PM LLAMA FARMER This drug screen is designed for MEDICAL [...] URIN E CHEMISTRY ORDERABLES Performing Organization Address City/State/[facility] Co de Phone Number [facility] [address] [place] [address] * (ABNORMAL) C-REACTIVE PROTEIN (08/17/2019 2:10 PM LLAMA FARMER) C-Reactive Protein 3.28(H) <=0.50 mg/dL 08/17/2019 4:39 PM [facility] Blood BLOOD SPECIMEN / Unknown Venipuncture / Unknown 08/17/2019 2:10 PM LLAMA FARMER 08/17/2019 2:14 PM LLAMA FARMER Narrative [facility] - 08/17/2019 4:39 PM LLAMA FARMER Specimen Moderately Hemolyzed Mateo Díaz MD LAB - CHEM ISTRY ORDERABLES Performing Organization Address [facility] Co de Phone Number [facility] [address] [place] [id number] * (ABNORMAL) D-DIMER (08/17/2019 12:55 PM LLAMA FARMER) Only the most recent of2 resultswithin the time period is included. D-Dimer 2.21(H) 0.27 - 0.5 ug/mL FEU 08/17/2019 1:22 PM LLAMA FARMER [facility] Blood BLOOD SPECIMEN / Unknown Venipuncture / Unknown 08/17/2019 12:55 PM LLAMA FARMER 08/17/2019 1:02 PM LLAMA FARMER Narrative [facility] - 08/17/2019 1:22 PM LLAMA FARMER In the absence of clinical symptoms, a value less than or equal to 0.5 mcg/mL FEU significantly decreases the probability of PE/DVT (negative predictive value >95%). 1 mcg/ml FEU = 1 Fibrinogen Equivalent Unit (approximates 0.5 mcg/mL of D- dimer). Tera Herrmann DO LAB - COAGULATION OR DERABLES Performing Organization Address [facility] de Phone Number [facility] [address] [place] [phone] * (ABNORMAL) PT-INR (08/17/2019 12:55 PM LLAMA FARMER) Only the most recent of6 resultswithin the time period is included. PT 16.3(H) 12.1 - 14.8 sec 08/17/2019 1:19 PM LLAMA FARMER [facility] INR 1.3(H) 0.9 - 1.1 08/17/2019 1:19 PM LLAMA FARMER [facility] Blood BLOOD SPECIMEN / Unknown Venipuncture / Unknown 08/17/2019 12:55 PM LLAMA FARMER 08/17/2019 1:02 PM LLAMA FARMER Narrative [facility] - 08/17/2019 1:19 PM LLAMA FARMER Conventional Warfarin Anticoagulant Therapy: INR Reference Range: ??2.0-3.0 Intensive Warfarin Anticoagulant Therapy: INR Reference Range: ? 2.5-3.5 Tera Herrmann DO LAB - COAGULATION OR DERABLES [facility] [address] [address] * Critical Care (08/17/2019 12:15 PM LLAMA FARMER) Narrative Tera Herrmann DO - 08/17/2019 12:15 PM LLAMA FARMER Tera Herrmann DO ? 08/17/2019 ??8:25 PM Critical Care Performed by: Tera Herrmann DO Authorized by: Tera Herrmann DO Critical care provider statement: ??Critical care time (minutes): ??45 ??Critical care time was exclusive of: ??Separately billable procedures and treating other patients and teaching time ??Critical care was necessary to treat or prevent imminent or life-threatening deterioration of the following conditions: ??Sepsis, FARM SERVICE CONSULTANT failure or compromise and circulatory failure ??Critical [...] E COLI SHIGA-LIKE TOXIN (08/09/2019 10:01 PM LLAMA FARMER) Culture No growth Salmonella, Shigella, Campylobacter, Escherichia coli O157:h7 or Yersinia KASSY 08/12/2019 12:23 PM LLAMA FARMER [facility] Culture Negative Escherichia coli Shiga-like toxin (NM) KASSY 08/12/2019 12:23 PM LLAMA FARMER [facility] Stool STOOL SPECIMEN / Unknown Collection / Unknown 08/09/2019 10:01 PM LLAMA FARMER 08/10/2019 3:39 AM LLAMA FARMER Kalia Frias MD LAB - MICROBIOLOGY O RDERABLES [facility] [address] [place], [place] [address], [place] [phone] * ENDOSCOPY, COLON, SCREENING (08/03/2019 2:56 PM LLAMA FARMER) Report Endoscopy POC _ Patient Name: Pricila [...] oxygen saturations ? were monitored continuously. [id number] ? introduced through the anus and [...] Procedure Code(s): ? --- Professional --- ? 84005, Colonoscopy, flexible; diagnostic, including collection of ? specimen(s) by brushing or washing, when performed (separate procedure) ? --- Technical --- ? 82115, Colonoscopy, flexible; diagnostic, including collection of ? [...] abscess ? without bleeding CPT copyright 2017 [employer]. All rights reserved. The codes documented in this report are preliminary and upon health information coder review may be revised to meet current compliance requirements. __ Dave Rockwell MD 08/03/2019 3:15:31 PM This report has been signed electronically. Number of Addenda: 0 Note Initiated On: 08/03/2019 2:56 PM Estimated Blood Loss: ? Estimated blood loss: none. [facility] 08/03/2019 2:56 PM LLAMA FARMER Dave Rockwell MD GI PROCEDURE ORDERAB LES [facility] * GROSS + MICRO EXAM (STL) (08/03/2019 2:52 PM LLAMA FARMER) Case Report Surgical Pathology Report ? Case: [id number] ? Authorizing Provider: ??Dave Rockwell MD ?Collected: ? 08/03/2019 02:52 PM ? Ordering Location: ? [facility] ? Received: ?08/04/2019 08:52 AM ? Pathologist: ? Michelle Edmond MD ? Specimens: ?? A) - Antrum Biopsy, antrum and body biopsy ? B) - Polyp Gastric, gastric polyp ? 08/05/2019 4:02 PM [facility] Final Diagnosis A. Stomach, antrum and body, biopsy: - Gastric antral-type and oxyntic-type mucosa with chronic and focal mild active inflammation - No Helicobacter pylori identified B. Gastric polyp, polypectomy: - Gastric fundic gland polyp SD/na 08/05/2019 4:02 PM [facility] Clinical History Generalized abdominal pain, anemia, and constipation 08/05/2019 4:02 PM [facility] Gross Description The specimen is [...] entirely as B1 gm/na 08/05/2019 4:02 PM [facility] Microscopic Description B. The H&E sections of the gastric polyp reveal dilated fundic glands in the lamina propria, consistent with fundic gland polyp. There is no evidence of dysplasia or malignancy. SD/na 08/05/2019 4:02 PM [facility] Disclaimer All histochemical and/or immunohistochemical results are interpreted with controls that demonstrate appropriate staining reactions before reporting results. Note on use of immunocytochemistry reagents: This test was developed and its performance characteristic determined by [facility], Department of Laboratory Medicine. It has not been cleared or approved by the U.S. Food and Drug Administration (FDA). The FDA has determined that such clearance or approval is not necessary. The test is used for clinical purpose. It should not be regarded as investigational or for research. This laboratory is certified to perform high complexity testing. 08/05/2019 4:02 PM LLAMA FARMER [facility] Embedded Images 08/05/2019 4:02 PM LLAMA FARMER [facility] Pathology/Cytology GASTRIC ANTRAL BIOPSY SPECIMEN / Unknown 08/03/2019 2:52 PM LLAMA FARMER 08/04/2019 8:52 AM LLAMA FARMER Miscellaneous samples (specimen) GASTRIC POLYP / Unknown 08/03/2019 2:54 PM LLAMA FARMER 08/04/2019 8:52 AM LLAMA FARMER Dave Rockwell MD LAB - PATHOLOGY/CYTO LOGY ORDERABLES [facility] [address] [id number] * EGD (08/03/2019 2:46 PM LLAMA FARMER) Report Endoscopy POC _ Patient Name: Pricila [...] ? were monitored continuously. The GIF-H190 SN [id number] was ? introduced through the mouth, and [...] Procedure Code(s): ? --- Professional --- ? 31489, Esophagogastroduo denoscopy, flexible, transoral; with biopsy, ? single or multiple ? --- Technical --- ? 07112, Esophagogastroduo denoscopy, flexible, transoral; with biopsy, ? single or multiple Diagnosis Code(s): ? --- Professional --- ? K31.7, Polyp of stomach and duodenum ? R10.9, Unspecified abdominal pain ? D64.9, Anemia, unspecified ? --- Technical --- ? K31.7, Polyp of stomach and duodenum ? R10.9, Unspecified abdominal pain ? D64.9, Anemia, unspecified CPT copyright 2017 [employer]. All rights reserved. The codes documented in this report are preliminary and upon health information coder review may be revised to meet current compliance requirements. ___ Dave Rockwell MD 08/03/2019 3:13:17 PM This report has been signed electronically. Number of Addenda: 0 Note Initiated On: 08/03/2019 2:46 PM Estimated Blood Loss: ? Estimated blood loss: none. [facility] 08/03/2019 2:46 PM LLAMA FARMER Dave Rockwell MD GI PROCEDURE ORDERAB LES [facility] * US ABDOMEN LIMITED (08/02/2019 10:10 AM LLAMA FARMER) Only the most recent of2 resultswithin the time period is included. Anatomical Region Laterality Modality Abdomen Ultrasound 08/02/2019 10:3 8 AM LLAMA FARMER Impressions 08/02/2019 10:39 AM LLAMA FARMER The gallbladder is surgically absent. The common bile duct is normal in caliber. Reading Radiologist: Edelmira Sotelo MD on 08/02/2019 at 10:39 AM Narrative 08/02/2019 10:39 AM LLAMA FARMER RIGHT UPPER QUADRANT ULTRASOUND INDICATION: Idiopathic acute [...] * (ABNORMAL) LDH BLOOD (08/01/2019 3:36 AM LLAMA FARMER) LDH 369(H) 125 - 220 U/L 08/01/2019 10:38 AM LLAMA FARMER [facility] Blood BLOOD SPECIMEN / Unknown Lab Venipuncture / Unknown 08/01/2019 3:36 AM LLAMA FARMER 08/01/2019 4:12 AM LLAMA FARMER Diogenes Garcia DO LAB - CHEMISTRY MARKUS VALDEZ [facility] Organization Address City/State/ZIP Co de Phone Number [facility] [address] [facility] [place] [address] * (ABNORMAL) LIPID PROFILE (08/01/2019 3:36 AM LLAMA FARMER) Only the most recent of2 resultswithin the time period is included. Cholesterol 100 <200 mg/dL 08/01/2019 3:16 PM LLAMA FARMER [facility] Triglycerides 88 <150 mg/dL 08/01/2019 3:16 PM LLAMA FARMER [facility] HDL Cholesterol 35(L) >40 mg/dL 0 3:16 PM LLAMA FARMER [facility] LDL Calculated 47 <130 mg/dL 08/01/2019 3:16 PM LLAMA FARMER [facility] VLDL Calculated 18 <=30 mg/dL 0 3:16 PM LLAMA FARMER [facility] Chol HDL Ratio 2.9 <4.5 08/01/2019 3:16 PM LLAMA FARMER [facility] LDL/HDL Ratio 1.4 <5.0 08/01/2019 3:16 PM LLAMA FARMER [facility] Blood BLOOD SPECIMEN / Unknown Lab Venipuncture / Unknown 08/01/2019 3:36 AM LLAMA FARMER 08/01/2019 4:12 AM LLAMA FARMER Diogenes Shyam Garcia DO LAB - CHEMISTRY MARKUS VALDEZ [facility] Organization Address City/State/ZIP Co de Phone Number [facility] [address] [place] [address] * NM MYOCARD PERFUSION SPECT STRESS AND REST (07/30/2019 10:54 AM LLAMA FARMER) Anatomical Region Laterality Modality Chest Nuclear Digisoni cs 07/30/2019 9:59 AM LLAMA FARMER Narrative Procedure Note Ben Emmanuel MD - 07/30/[address] [address] Nuclear Myocardial Perfusion Report Pat.Name: ANGELINA MOYA Pat.ID: [id number] .Date: 07/30/2019 Refer.MD: Nhung Brody Exam Time: 9:59:00 AM Study Type:Nuclear Myocardial Perfusion Scan Height: 172.72cm Weight: 107.73kg BSA: 2.2 m2 Age: 3 1965,53Y Sex: FEMALE Sonogrphr: YESENIA Martínez Pat. Stat.:Inpatient Room: 4220 Reason for Study: Chest pain, elevated troponin History / Clinical: Hypertension, Hyperlipidemia, Neck pain, IVC filter on 04/03/19 Procedures: Lexiscan Perfusion Scan Race: 2 Visit ID: [id number] Nurse: Priscilla Camarillo RN, BSN Risk Factors:Hypertension, [...] Atropine 0 Rest BP: 106/69 Duration 03:00 [place] Int: 192 ms QRS Int: 82 ms [...] 11:45 AM Ben Emmanuel MD Nhung Brody SUPERVISOR POWDERED METAL-GLAZIER HELPER CT ORDERABL ES * STRESS TEST LEXISCAN (NUCLEAR) (07/30/2019 9:56 AM LLAMA FARMER) Stress Test Summary For full formatted report, [...] Referred By: ? Overread By: Ben Emmanuel [facility] 07/30/2019 9:56 AM LLAMA FARMER 07/31/2019 9:20 AM LLAMA FARMER Nhung Brody SUPERVISOR POWDERED METAL-GLAZIER HELPER CARDIAC SER VICES ORDERABLES Performing Organization Address [facility]/ZIP Co de Phone Number [facility] * HCG URINE QUALITATIVE (07/29/2019 1:23 AM LLAMA FARMER) hCG Qualitative Urine Negative Negative 07/29/2019 1:33 AM LLAMA FARMER [facility] Urine URINE / Unknown Collection / Unknown 07/29/2019 1:23 AM LLAMA FARMER 07/29/2019 1:27 AM LLAMA FARMER Alfredo Vazquez MD LAB - URINALYSIS OR DERABLES Performing Organization Address City/[facility]/ZIP Co de Phone Number [facility] [address] [place] [address] * INFLUENZA A+B ANTIGEN RAPID (05/09/2019 7:32 PM LLAMA FARMER) Only the most recent of2 resultswithin the time period is included. Influenza A Antigen Negative Negative 05/09/2019 8:58 PM LLAMA FARMER [facility] Influenza B Antigen Negative Negative 05/09/2019 8:58 PM LLAMA FARMER [facility] Other SPECIMEN FROM NASAL FOSSAE / Unknown Collection / Unknown 05/09/2019 7:32 PM LLAMA FARMER 05/09/2019 8:37 PM LLAMA FARMER Narrative [facility] - 05/09/2019 8:58 PM LLAMA FARMER ? The sensitivity of rapid tests for [...] height of the influenza season. Phillip Christy SUPERVISOR POWDERED METAL-GLAZIER HELPER LAB - MICROBIOLOG Y ORDERABLES Performing Organization Address City/State/[facility] Co de Phone Number [facility] [address] [phone] * XR ANKLE RIGHT 3VW OR MORE (05/02/2019 3:45 PM LLAMA FARMER) Only the most recent of2 resultswithin the time period is included. Anatomical Region Laterality Modality Lower Extremity Radiographic Estephanie ging 05/02/2019 4:35 PM LLAMA FARMER Narrative 05/02/2019 4:36 PM LLAMA FARMER 3 VIEWS RIGHT ANKLE Indication: Right ankle [...] on 04/21/2019 at 2:46 PM Phillip Christy SUPERVISOR POWDERED METAL-GLAZIER HELPER DIAGNOSTIC IMAGIN G ORDERABLES * (ABNORMAL) VITAMIN D 25-HYDROXY (04/19/2019 5:30 AM CDT) Only the most recent of2 resultswithin the time period is included. Vitamin D, 25 Hydroxy 20.8(L) 30 - 100 ng/mL 04/19/2019 8:17 AM CDT [facility] Blood BLOOD SPECIMEN / Unknown 04/19/2019 5:30 AM CDT 04/19/2019 6:50 AM CDT Narrative [facility] - 04/19/2019 8:17 AM CDT Vitamin D Status: ?Deficiency ? <20 ? ng/mL ?Insufficiency ?? 20-30 ??ng/mL ?Sufficiency ? 30-100 ng/mL ?Toxicity ? >100 ?ng/mL Gena Alas MD LAB - CHEMISTRY MARKUS VALDEZ Performing Organization Address [facility] de Phone Number [facility] [address] [place] [address] * B-TYPE NATRIURETIC PEPTIDE (04/13/2019 2:02 PM CDT) BNP 88 <=100 pg/mL 04/13/2019 2:35 PM CDT [facility] Blood BLOOD SPECIMEN / Unknown Venipuncture / Unknown 04/13/2019 2:02 PM CDT 04/13/2019 2:11 PM CDT Naresh Shaffer MD LAB - CHEMISTRY MARKUS VALDEZ Performing Organization Address [facility] de Phone Number [facility] [address] [place] [address] * CT ANGIO BRAIN NECK STROKE (04/13/2019 [...] basilar artery, and branch vessels of the [place] are widely patent without evidence [...] vessel stenosis or vessel occlusion. Procedure Note lAyssia Molina MD - 04/13/2019 CT angiography neck [...] basilar artery, and branch vessels of the [place] are widely patent without evidence [...] - 11.6 sec 04/13/2019 12:54 PM CDT [facility] INR 1.0 0.9 - 1.1 04/13/2019 12:54 PM CDT [facility] PTT <21.0(L) 21.0 - 32.0 sec 04/13/2019 12:54 PM CDT [facility] Blood BLOOD SPECIMEN / Unknown Venipuncture / Unknown 04/13/2019 12:29 PM CDT 04/13/2019 12:32 PM CDT Narrative [facility] - 04/13/2019 12:54 PM CDT Conventional Warfarin Anticoagulant Therapy: INR Reference Range: ??2.0-3.0 Intensive Warfarin Anticoagulant Therapy: INR Reference Range: ? 2.5-3.5 Heparin Therapeutic Range for PTT: 50.5 - 74.3 seconds. Naresh Shaffer MD LAB - COAGULATION OR DERABLES [facility] [address] [id number] * Critical Care (04/13/2019 11:51 AM CDT) [...] - 32.0 sec 04/09/2019 10:59 AM CDT [facility] Blood BLOOD SPECIMEN / Unknown Lab Venipuncture / Unknown 04/09/2019 10:09 AM CDT 04/09/2019 10:18 AM CDT Narrative [facility] - 04/09/2019 10:59 AM CDT Heparin Therapeutic Range for PTT: 50.5 - 74.3 seconds. Felix Sotelo MD LAB - COAGULATI ON ORDERABLES [facility] [address] [place] [address] * XR ABDOMEN KUB (04/07/2019 [...] Procedure Note Arthur Austin MD - 04/06/2019 [place] [address] Upper Extremity Venous Ultrasound Report Pat.Name: ANGELINA MOYA Pat.ID: [id number] .Date: 04/06/2019 Refer.MD: joy Angel Exam Time: 1:29:00 PM Study Type:UE Venous Age: 4 1965,53Y Sex: FEMALE Sonogrphr: Megan Camacho RDMS, RVT Pat. Stat.:Inpatient Room: [facility] Reason for Study: Swelling -Arm/hand, left, Chest pain History / Clinical: Hypertension, Hyperlipidemia, Neck pain, IVC filter on 04/03/19 Procedures: Upper Extremity Venous - Left Race: 2 Visit ID: [id number] ++++++++++++++++++++++++++++++++++++ SUMMARY: ++++++++++++++++++++++++++++++++++++ left cephalic vein thrombus [...] performed with 21-gauge micropuncture needle. A 5 Syrian sheath was inserted over a [employer] wire and connected to a regulated pressurized infusion. A 5 Syrian diagnostic catheter was advanced over the wire and was used to select the following vessels: ?? Bilateral vertebral arteries Bilateral [place] intercostal arteries Bilateral T6-T12 radicular arteries Bilateral L1-R8ttjbctezm arteries Bilateral iliac arteries ?? LEFT VERTEBRAL [...] vascular malformation is noted. ?? Lety Lizama SUPERVISOR POWDERED METAL-GLAZIER HELPER IR ORDERABLES * VANCOMYCIN LEVEL RANDOM (04/04/2019 11:04 AM CDT) Vancomycin Random 7.8 ug/mL 04/04/2019 11:23 AM CDT [facility] Blood BLOOD SPECIMEN / Unknown Lab Venipuncture / Unknown 04/04/2019 11:04 AM CDT 04/04/2019 11:08 AM CDT Narrative [facility] - 04/04/2019 11:23 AM CDT No reference range available for random Vancomycin levels. All results interpreted by ordering physician. Karly Salazar MD LAB - CHEMISTRY ORD ERABLES [facility] [address] [address] * IR IVC FILTER PLACEMENT (04/03/2019 2:57 [...] An exchange was made for a 5 Syrian micropuncture system, and a guide wire was [...] An exchange was made for a 5 [place] micropuncture system, and a guide wire was [...] AM CDT Narrative 04/03/2019 4:28 PM CDT ?[facility] ?[address] ?[place], [place] ??[address] ? Lower Extremity Venous Ultrasound Report ? Pat.Name: ??ANGELINA MOYA ? Pat.ID: ?[id number] ? St.Date: ?? 04/03/2019 ? Refer.MD: ??shilpa Gandhi Exam Time: 11:46:00 AM ? Study Type:LE Venous ?Age: ??1965,53Y ? Sex: ? FEMALE ? Sonogrphr: Missy Devlin, RD, RVT ?? Pat. Stat.:Inpatient ? Room: ?3115 ? Reason for Study: + D-Dimer, Pulmonary Embolism History / Clinical: Hypertension, Hyperlipidemia Procedures: ??Lower Extremity Venous - Bilateral Race: ?2 ? Visit ID: ??[id number] ? ++++++++++++++++++++++++++++++++++++ SUMMARY: ++++++++++++++++++++++++++++++++++++ No evidence DVT [...] Procedure Note Alem Mccullough MD - 04/03/2019 [place] [address] Lower Extremity Venous Ultrasound Report Pat.Name: ANGELINA MOYA Pat.ID: [id number] .Date: 04/03/2019 Refer.MD: shilpa Gandhi Exam Time: 11:46:00 AM Study Type:LE Venous Age: 4 1965,53Y Sex: FEMALE Sonogrphr: Missy Devlin RDMS, RVT Pat. Stat.:Inpatient Room: [facility] Reason for Study: + D-Dimer, Pulmonary Embolism History / Clinical: Hypertension, Hyperlipidemia Procedures: Lower Extremity Venous - Bilateral Race: 2 Visit ID: [id number] ++++++++++++++++++++++++++++++++++++ SUMMARY: ++++++++++++++++++++++++++++++++++++ No evidence DVT at [...] CDT) ABO AB 04/02/2019 4:12 PM CDT [facility] Rh Type Negative 04/02/2019 4:12 PM CDT [facility] Blood Bank BLOOD SPECIMEN / Unknown Lab Venipuncture / Unknown 04/02/2019 9:50 AM CDT 04/02/2019 3:47 PM CDT Libby Grewal MD LAB - BLOOD BANK ORD ERABLES [facility] [address] [place] [address] [phone] * (ABNORMAL) LACTIC ACID BLOOD POC VENOUS (03/31/2019 1:48 PM CDT) Lactate iSTAT Venous POCT 3.28(H) 0.70 - 2.10 mmol/L 03/31/2019 2:10 PM CDT [facility] Sample iSTAT EARL 03/31/2019 2:10 PM CDT [facility] Blood BLOOD SPECIMEN / Unknown 03/31/2019 1:48 PM CDT 03/31/2019 2:10 PM CDT Nicole Valladares MD LAB - POINT OF CARE ORDERABLES [facility] [address] [place] [address] * CT CHEST PE (03/31/2019 1:01 [...] TECHNIQUE: The procedure was performed by Dr. lAan. The procedure was explained to Ms. Moya, [...] on 03/23/2019 at 3:16 PM Alicia Mccullough SUPERVISOR POWDERED METAL-GLAZIER HELPER CT ORDERABLE S * FL FLUORO MYELOGRAM [...] grammatical or syntax problems by a trained medical assistant per diem. For questions about the report, please contact [...] grammatical or syntax problems by a trained medical assistant per diem. For questions about the report, please contact [...] grammatical or syntax problems by a trained medical assistant per diem. For questions about the report, please contact [...] grammatical or syntax problems by a trained medical assistant per diem. For questions about the report, please contact [...] on 11/30/2018 at 4:38 PM Philly Shipley SUPERVISOR POWDERED METAL-GLAZIER HELPER CT ORDERA BLES * CT CERVICAL SPINE NON CONTRAST (08/25/2018 8:02 PM LLAMA FARMER) Only the most recent of3 resultswithin the time period is included. Anatomical Region Laterality Modality Spine Computed Tomogra phy 08/25/2018 8:20 PM LLAMA FARMER Impressions 08/25/2018 8:23 PM LLAMA FARMER No fracture can be identified. ??Please see above. Reading Radiologist: Freddy Leija MD on 08/25/2018 at 8:23 PM Narrative 08/25/2018 8:23 PM LLAMA FARMER Examination: CT Cervical Spine, without contrast. Information [...] grammatical or syntax problems by a trained medical assistant per diem. For questions about the report, please contact [...] grammatical or syntax problems by a trained medical assistant per diem. For questions about the report, please contact the Radiology Department. IMPRESSION No fracture can be identified. Please see above. Reading Radiologist: Freddy Leija MD on 08/25/2018 at 8:23 PM Heladio Young MD CT ORDERABLES * XR CLAVICLE RIGHT 2VW (08/25/2018 7:36 PM LLAMA FARMER) Anatomical Region Laterality Modality Upper Extremity, Chest Radiograp hic Imaging 08/25/2018 7:42 PM LLAMA FARMER Impressions 08/25/2018 7:42 PM LLAMA FARMER Negative for fracture at this time.. ?? Please see above discussion. Reading Radiologist: Freddy Leija MD on 08/25/2018 at 7:42 PM Narrative 08/25/2018 7:42 PM LLAMA FARMER Examination: Right clavicle 2 views INDICATION: Cervicalgia [...] 04/30/2018 at 1:14 PM Philly Kendra Shipley SUPERVISOR POWDERED METAL-GLAZIER HELPER DIAGNOSTI C IMAGING ORDERABLES * XR KNEE [...] on 04/30/2018 at 1:13 PM Philly Shipley SUPERVISOR POWDERED METAL-GLAZIER HELPER DIAGNOSTI C IMAGING ORDERABLES * MAMMO BILAT SCREENING (09/18/2017 9:53 AM CDT) Anatomical Region Laterality Modality Breast Bilateral Mammography 09/23/2017 9:20 AM CDT Impressions 09/23/2017 9:22 AM CDT No mammographic evidence of malignancy in either breast. ASSESSMENT: BIRADS Category 2: Benign finding(s). RECOMMENDATION: Bilateral screening mammogram in one year. Thank you for allowing us to participate in the care of your patient. [facility] utilizes [employer] as a reminder system to notify patients of their next recommended mammogram. Narrative 09/23/2017 9:22 AM CDT EXAMINATION: Digital screening mammogram on 09/18/2017. Low-dose full-field digital breast tomosynthesis examination was performed with synthetic 2D images and 3D acquisitions. Computer assisted detection was utilized. PRIOR: Mammogram from [facility] on 11/13/2004. BREAST PARENCHYMAL DENSITY: The breasts are almost entirely fatty. RISK ASSESSMENT CALCULATION: Based on the information provided by your patient, her lifetime risk of breast cancer is average (<15%). Additional quantitative risk model data and patient history details have been scanned as a document/letter in [facility] electronic medical record (media tab). Please note this information is only as accurate as the data entered by the patient. FINDINGS: No suspicious masses, areas of architectural distortion or microcalcifications are evident on synthetic 2D mammogram or tomosynthesis images. ??Postsurgical changes are seen in both breasts. Shilpa Frazier DO MAMMO ORDERABLES * TSH (08/20/2017 12:34 PM LLAMA FARMER) [facility] TSH 1.72 mIU/L [facility] Comment: ?Reference Range ?> or = 20 Years ??0.40-4.50 ? Ranges ?First trimester ?0.26-2.66 ?Second trimester ?? 0.55-2.73 ?Third trimester ?0.43-2.91 Test Performed at: [facility] [address] ??[id number] JIM SAEED DO,MPH Blood BLOOD SPECIMEN / Unknown 08/20/2017 12:34 PM LLAMA FARMER 08/20/2017 12:35 PM LLAMA FARMER Shilpa Frazier DO LAB - CHEMISTRY OR DERABLES [facility] [address] [place] [address] * STREP A SCREEN (05/16/2016) Strep A Rapid POCT Negative Negative Strep A Internal Control Present Lot # [id number] Expiration Date 11/01/2017 Throat ENTIRE THROAT (SURFACE REGION OF NECK) / Unknown 05/16/2016 [facility] - [facility]INT OF CAR E ORDERABLES * INFLUENZA A+B - POINT OF CARE (AMB) (05/16/2016) Influenza A Antigen Rapid Negative Negative Influenza B Antigen Rapid Negative Negative Influenza Internal Control PRESENT NEGATIVE - POSITIVE Influenza Lot Number [id number] Influenza Expiration Date 07/30/2017 Other NASOPHARYNGEAL SWAB / Unknown 05/16/2016 [facility] - POINT OF CAR E [...] Dimas on 12/20/2014 3:56 PM Alicia Mccullough SUPERVISOR POWDERED METAL-GLAZIER HELPER MR ORDERABLE S * XR C SPINE [...] DERMATOLOGY (09/10/2013 12:00 AM CDT) Result CASE: [id number] PATIENT: ANGELINA MOYA PATHOLOGIC DIAGNOSIS: Left med [...] out by Aruna Alcaraz M.D. 09/15/2013 11:57:44AM [facility] Comment: Performed at: Dermatopathology Laboratory [facility] - Department of Dermatology [address] [place] [address] 5th [place] [address] Phone number: [phone] FAX: [phone] 09/10/2013 09/14/2013 Historical Provider LAB - PATHOLOGY/C YTOLOGY ORDERABLES Performing Organization Address [facility] Co de Phone Number [facility] [address] [place] [address]. 5th Floor Lab [place], [place] [id number] [place] [address] * (ABNORMAL) CARDIAC MARKER PANEL (07/10/2012 4:40 PM LLAMA FARMER) Troponin I <0.015 <0.100 ng/mL 07/10/2012 5:15 PM LLAMA FARMER [facility] CK 54 35 - 232 U/L 07/10/2012 5:15 PM LLAMA FARMER [facility] CK-MB 0.5 0.0 - 5.0 ng/mL 07/10/2012 5:15 PM LLAMA FARMER [facility] CK Index % 0.9(L) 4.0 - 25.0 % 07/10/2012 5:15 PM LLAMA FARMER [facility] Blood specimen (specimen) BLOOD SPECIMEN / Unknown 07/10/2012 4:40 PM LLAMA FARMER 07/10/2012 4:56 PM LLAMA FARMER Martin Dominguez MD LAB - CHEMISTRY MARKUS VALDEZ Performing Organization Address City/[facility]/ZIP Co de Phone Number [facility] [address] [place] [address] * CT ANGIO CHEST COMB INCLUDE PROC [...] CDT) pH Arterial 7.41 7.35 - 7.45 [facility] pCO2 Arterial 38.2 35 - 45 mm Hg [facility] pO2 Arterial 70.5(L) 80 - 100 mm Hg [facility] HCO3 Arterial 23.9 22 - 26 [facility] Base Excess Arterial -0.4 -2.0 - 2.0 [facility] O2 Saturation Arterial 94.4(L) 97 - 100 % [facility] Mode room ai [facility] Site Right Radial [facility] Stanley's Test Positive [facility] Comment Stanley's Test: elian moreland [address] [facility] ARTERIAL BLOOD SPECIMEN / Unknown 03/02/2009 6:10 PM CDT 03/02/2009 7:04 PM CDT Denys Oneill MD LAB - BLOOD GASES OR DERABLES [facility] [address] [place] [address] * XR CHEST PA AND LATERAL (03/02/2009 [...] as well. Initial interpretation was provided by [facility]. FINDINGS: The vertebral bodies are normally [...] as well. Initial interpretation was provided by [facility]. FINDINGS: The vertebral bodies are normally [...] 11:20 PM CDT) Ethanol <10.0 <10.0 mg/dl [facility] Note Ethanol [facility] Comment: This non-legal serum Alcohol test result is to be used for medical treatment only. BLOOD SPECIMEN / Unknown 01/14/2009 11:20 PM CDT 01/14/2009 11:27 PM CDT Stacey Rivera MD LAB - CHEMISTRY ORD ERABLES [facility] [address] [address] * GROSS + MICRO EXAM (11/02/2001 12:00 [...] OF MOSTLY BRIGHT YELLOWISH ADIPOSE TISSUE. ?? CHICKEN RAISER SECTIONS ARE SUBMITTED IN CASSETTES A AND [...] ADIPOSE TISSUE AND IS OTHERWISE GROSSLY UNREMARKABLE. ??CHICKEN RAISER SECTIONS ARE SUBMITTED IN CASSETTES C AND [...] Released By ?DARA PILLAI CPT Code ? 91974 X2 MISCELLANEOUS SAMPLE S / Unknown 11/02/2001 11/02/2001 12:38 PM CDT Historical Provider MD LAB - PATHOLOGY/C YTOLOGY ORDERABLES Care Teams Medical Management Trainer Relationship Specialty Start Date End Date Iron Galindo PA-C [address] [facility] [address] [place], [place] [id number] PCP - General Physician Instrumentation And Control Technician 02/12/23 Cresencio Ghosh MD [address] [facility] [address] [place] [phone] PCP - Attributed-[facility] P4P 12/29/23 Lidia Barajas MD [address] [facility], [address] Anesthesiology-Pain Management 06/03/19 Shilpa Gandhi MD [address] [facility] [address] [place] [address] Oncology 06/03/19
--- OUTSIDE RECORDS SUMMARY | 2024-08-03 05:35 | XMS_ITS | Clinical Summary ---
Author Organization [facility] Address [address] [place] [address] Care Team Providers Care Account Director Name Role Phone Unavailable Primary Care Provider [...] Comments Blood Pressure 152/77 05/21/2019 8:00 AM SURG RN Pulse 75 05/21/2019 8:00 AM SURG RN Temperature 36.3 ??C (97.3 ??F) 05/21/2019 8:00 AM CS T Respiratory Rate 18 05/21/2019 8:00 AM SURG RN Oxygen Saturation 98% 05/21/2019 8:00 AM SURG RN Inhaled Oxygen Concentration - - Weight 108.9 kg (240 lb 1.6 oz) 05/09/2019 6:52 AM SURG RN Height 172.7 cm (5' 8 ) 04/18/2019 [...]
--- OUTSIDE RECORDS SUMMARY | 2024-08-03 05:36 | XMS_ITS | Encounter Summary ---
Author Organization [facility] Address [address] [place] [address] Care Team Providers Care Automation Design Engineer Name Role Phone Fiordaliza Snell MD [...] on file Legal Sex Female 2:43 AM MACHINE OPERATOR PICKER Gender Identity Not on file Sexual Orientation Not on file documented as of this encounter Plan of Treatment Not on file documented as of this encounter Visit Diagnoses Diagnosis Lumbago- Primary documented in this encounter Additional Health Concerns Infection Onset Date Last Indicated Resolved Time R/O COVID-19 07/02/2020 07/02/2020 07/02/2020 8:53 PM MACHINE OPERATOR PICKER MRSA Comment:Resolved per Type and Duration of Precautions Recommended for Selected Infections and Conditions document 2023 update 07/02/2020 07/02/2020 03/16/20 24 10:58 AM CDT R/O COVID-19 07/10/2020 07/10/2020 07/10/2020 5:01 PM MACHINE OPERATOR PICKER documented as of this encounter Care Teams Automation Design Engineer Relationship Specialty Start Date End Date Fiordaliza Snell MD PCP - General Family Practice 09/09/22 documented as of this encounter
--- OUTSIDE RECORDS SUMMARY | 2024-08-03 05:36 | XMS_ITS | Encounter Summary ---
Author Organization [facility] Address [address] [place] [address] Care Team Providers Care Automatic Packer Operator Name Role Phone Fiordaliza Snell MD [...] on file Legal Sex Female 2:43 AM COLLATERAL CLERK Gender Identity Not on file Sexual Orientation Not on file documented as of this encounter Plan of Treatment Not on file documented as of this encounter Visit Diagnoses Diagnosis Metrorrhagia- Primary documented in this encounter Additional Health Concerns Infection Onset Date Last Indicated Resolved Time R/O COVID-19 07/02/2020 07/02/2020 07/02/2020 8:53 PM COLLATERAL CLERK MRSA Comment:Resolved per Type and Duration of Precautions Recommended for Selected Infections and Conditions document 2023 update 07/02/2020 07/02/2020 03/16/20 24 10:58 AM CDT R/O COVID-19 07/10/2020 07/10/2020 07/10/2020 5:01 PM COLLATERAL CLERK documented as of this encounter Care Teams Automatic Packer Operator Relationship Specialty Start Date End Date Fiordaliza Snell MD PCP - General Family Practice 09/09/22 documented as of this encounter
--- OUTSIDE RECORDS SUMMARY | 2024-08-03 05:36 | XMS_ITS | Encounter Summary ---
Author Organization [facility] Healthcare Address [address] [place] [address] Care Team Providers Care Engineering Leader Name Role Phone FrazierShilpa DO Primary Care Provider Lidia Barajas MD Unavailable Ab Melara MD Primary Care Provid er Encounter Details Date Type Department Care Team (Late st Contact Info) Description 03/19/2019 Telephone [facility] - Interventional Radiology [address] [place] [address] Nhung French RN Social History [...] on file Legal Sex Female 11:49 PM MACHINE TRY OUT SETTER Gender Identity Not on file Sexual [...] DT MRSA 12/27/2021 03/06/2022 09/02/2022 3:05 AM MACHINE TRY OUT SETTER documented as of this encounter Care Teams Engineering Leader Relationship Specialty Start Date End Date Shilpa Frazier DO PCP - General 06/12/18 07/15/21 Ab Melara MD [address] [address] PCP - General Family Medicine 07/16/21 Lidia Barajas MD Anesthesiologist Anesthesiology 01/13/20 documented as of this encounter
--- OUTSIDE RECORDS SUMMARY | 2024-08-03 05:36 | XMS_ITS | Encounter Summary ---
Author Organization [facility] Healthcare Address [address] [place] [address] Care Team Providers Care Capital Markets Specialist Name Role Phone Shilpa Frazier DO Primary Care Provider Lidia Barajas MD Unavailable Ab Melara MD Primary Care Provid er Encounter Details Date Type Department Care Team (Late st Contact Info) Description 03/15/2019 Telephone [facility] - Interventional Radiology [address] [place] [address] Philly Aguirre RN Social History [...] on file Legal Sex Female 11:49 PM CENTRAL COMMUNICATIONS SPECIALIST Gender Identity Not on file Sexual [...] DT MRSA 12/27/2021 03/06/2022 09/02/2022 3:05 AM CENTRAL COMMUNICATIONS SPECIALIST documented as of this encounter Care Teams Capital Markets Specialist Relationship Specialty Start Date End Date Shilpa Frazier DO PCP - General 06/12/18 07/15/21 Ab Melara MD [address] [address] PCP - General Family Medicine 07/16/21 Lidia Barajas MD Anesthesiologist Anesthesiology 01/13/20 documented as of this encounter
--- OUTSIDE RECORDS SUMMARY | 2024-08-03 05:36 | XMS_ITS | Encounter Summary ---
Author Organization [facility] Address [address] [place] [address] Care Team Providers Care Casualty Claims Supervisor Name Role Phone Fiordaliza Snell MD [...] on file Legal Sex Female 2:43 AM GIS MAPPING TECHNICIAN Gender Identity Not on file Sexual Orientation Not on file documented as of this encounter Plan of Treatment Not on file documented as of this encounter Visit Diagnoses Diagnosis Closed fracture of lateral malleolus- Primary documented in this encounter Additional Health Concerns Infection Onset Date Last Indicated Resolved Time R/O COVID-19 07/02/2020 07/02/2020 07/02/2020 8:53 PM GIS MAPPING TECHNICIAN MRSA Comment:Resolved per Type and Duration of Precautions Recommended for Selected Infections and Conditions document 2023 update 07/02/2020 07/02/2020 03/16/20 10:58 AM CDT R/O COVID-19 07/10/2020 07/10/2020 07/10/2020 5:01 PM GIS MAPPING TECHNICIAN documented as of this encounter Care Teams Casualty Claims Supervisor Relationship Specialty Start Date End Date Fiordaliza Snell MD PCP - General Family Practice 09/09/22 documented as of this encounter
--- OUTSIDE RECORDS SUMMARY | 2024-08-03 05:36 | XMS_ITS | Encounter Summary ---
Author Organization [facility] Healthcare Address [address] [place] [address] Care Team Providers Care Box Office Agent Name Role Phone Shilpa Fraziermeera PEREZ Primary Care Provider Lidia Barajas MD Unavailable Ab Melara MD Primary Care Provid er Reason for Visit * Reason Onset Date Comments PRECALL ANTICOAG 02/18/2020 Encounter Details Date Type Department Care Team (Late st Contact Info) Description 02/18/2020 Telephone [facility] [address] [facility] 1st [place] [address] Tori Arias RN PRECALL ANTICOAG [...] on file Legal Sex Female 11:49 PM PHOTO JOURNALIST Gender Identity Not on file Sexual Orientation [...] DT MRSA 12/27/2021 03/06/2022 09/02/2022 3:05 AM PHOTO JOURNALIST documented as of this encounter Care Teams Box Office Agent Relationship Specialty Start Date End Date Shilpa Frazier DO PCP - General 06/12/18 07/15/21 Ab Melara MD [address] [address] PCP - General Family Medicine 07/16/21 Lidia Barajas MD Anesthesiologist Anesthesiology 01/13/20 documented as of this encounter
--- OUTSIDE RECORDS SUMMARY | 2024-08-03 05:36 | XMS_ITS | Encounter Summary ---
[facility] Organization [facility] Address [address] [place] [address] Care Team Providers Care Cab Supervisor Name Role Phone Fiordaliza Snell MD [...] on file Legal Sex Female 2:43 AM FOAM CUTTING SUPERVISOR Gender Identity Not on file Sexual Orientation Not on file documented as of this encounter Plan of Treatment Not on file documented as of this encounter Visit Diagnoses Diagnosis Surgical or other procedure not carried out because of patient's decision- Primary documented in this encounter Additional Health Concerns Infection Onset Date Last Indicated Resolved Time R/O COVID-19 07/02/2020 07/02/2020 07/02/2020 8:53 PM FOAM CUTTING SUPERVISOR MRSA Comment:Resolved per Type and Duration of Precautions Recommended for Selected Infections and Conditions document 2023 update 07/02/2020 07/02/2020 03/16/20 24 10:58 AM CDT R/O COVID-19 07/10/2020 07/10/2020 07/10/2020 5:01 PM FOAM CUTTING SUPERVISOR documented as of this encounter Care Teams Cab Supervisor Relationship Specialty Start Date End Date Fiordaliza Snell MD PCP - General Family Practice 09/09/22 documented as of this encounter
--- OUTSIDE RECORDS SUMMARY | 2024-08-03 05:36 | XMS_ITS | Continuity of Care Document ---
Author Organization [facility] Address [address] [place] [address] Phone Care Team Providers Care Farm Equipment Maintenance Supervisor Name Role Phone Shreyas Dumont MD Unavailable Unavailable Allergies, Adverse Reactions, Alerts Substance Reaction Status Criticality Sulfa (Sulfonamide Antibiotics) Hives Active No Information Penicillins Hives Active No Information TAPE, OCCLUSIVE ADHESIVE Active No Information Penicillins Unknown Active No Information Medications Medication Instructions Dosage Effective Dates (start - stop) Status Comments Ames 5 mg-325 mg tablet take 1-2 tabs [...] VIEWS 2015 OFFICE/OUTPATIENT VISIT EST OFFICE/OUTPATIENT VISIT [facility] Advance Directives Directive Yes / No Effective Date File Name No Information Encounters Encounter Description Practice Location Reason(s) For Visit Diagnoses Date Provider Providers Copied on Encounter [facility], [address], [place], [address], [place] [phone] [facility] [place] Ulnar neuropathy at elbow, leftPostopera tive visit 0 7 Tim Pritchett. [address], [place], [place], [id number] . tel: [phone] [facility], [address] [address], [place], [address], [place] tel:[phone] [facility] Ulnar neuropathy at elbow, left 8 7 Paul Handley. [address], [place], [place], [id number] . tel: [phone] [facility], [address] [address], [place], [address], [place] [phone] [facility] Numbness of left hand 7- 7 Tim Pritchett. [address], [place], [place], [id number] . tel: [phone] [facility], [address] [address], [place], [address], [place] [phone] [facility] [place] Postoperative visit 6 Tim Pritchett. [address], [place], [place], [id number] . tel: [phone] [facility], [address] [facility], [place], [address], [place] tel:[phone] [facility] Ulnar neuropathy at elbow, left 6 Tim Pritchett. [address], [place], [place], [id number] . tel: [phone] OFFICE/OUTPA TIENT VISIT EST [facility], [address], [place], [address], [place] tel:[phone] [facility] [place] Pain in left elbowUlnar neuropathy at elbow, left 6 Tim Pritchett. [address], [place], [place], [id number] . tel: [phone] OFFICE/OUTPA TIENT VISIT EST [facility], [address], [place], [address], [place] [phone] [facility] [place] Pain in left elbowUlnar neuritis, left 6 Tim Pritchett. [address], [place], [place], [id number] . tel: [phone] Referring Provider: [facility]igue Car[facility] [address], [place], [address]. [phone] OFFICE/OUTPA TIENT VISIT [facility], [address], [place], [address], [place] [phone] [facility] evoh left thumb/hand (chief complaint) Primary osteoarthriti s of first carpometacarp al joint of left handDe Quervain's tenosynovitis 6 Ciera Brice. [address] [place], [place], [address] . tel: [phone] Family History Family Member Type Diagnosis Age At Onset Father Problem (finding) Cancer, unknown Payers Payer name Insurance type Covered libertarian [...]
--- OUTSIDE RECORDS SUMMARY | 2024-08-03 05:36 | XMS_ITS | Encounter Summary ---
Author Organization [facility] Address 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 Gender Identity Not on file Sexual Orientation Not on file documented as of this encounter Plan of Treatment Not on file documented as of this encounter Visit Diagnoses Diagnosis Excessive or frequent menstruation- Primary documented in this encounter Additional Health Concerns Infection Onset Date Last Indicated Resolved Time R/O COVID-19 07/02/2020 07/02/2020 07/02/2020 8:53 PM TOPSTITCHER LOCKSTITCH MRSA Comment:Resolved per Type and Duration of Precautions Recommended for Selected Infections and Conditions document 2023 update 07/02/2020 07/02/2020 03/16/20 24 10:58 AM CDT R/O COVID-19 07/10/2020 07/10/2020 07/10/2020 5:01 PM TOPSTITCHER LOCKSTITCH documented as of this encounter Care Teams Slurry Worker Relationship Specialty Start Date End Date Fiordaliza Snell MD PCP - General Family Practice 09/09/22 documented as of this encounter
--- OUTSIDE RECORDS SUMMARY | 2024-08-03 05:36 | XMS_ITS | Encounter Summary ---
Author Organization [facility] Address [address] [place] [address] Care Team Providers Care Drywall Hanger Name Role Phone Fiordaliza Snell MD Primary [...] on file Legal Sex Female 2:43 AM CARPET TECHNICIAN Gender Identity Not on file Sexual Orientation Not on file documented as of this encounter Plan of Treatment Not on file documented as of this encounter Visit Diagnoses Diagnosis Unspecified symptom associated with female genital organs- Primary documented in this encounter Additional Health Concerns Infection Onset Date Last Indicated Resolved Time R/O COVID-19 07/02/2020 07/02/2020 07/02/2020 8:53 PM CARPET TECHNICIAN MRSA Comment:Resolved per Type and Duration of Precautions Recommended for Selected Infections and Conditions document 2023 update 07/02/2020 07/02/2020 03/16/20 24 10:58 AM CDT R/O COVID-19 07/10/2020 07/10/2020 07/10/2020 5:01 PM CARPET TECHNICIAN documented as of this encounter Care Teams Drywall Hanger Relationship Specialty Start Date End Date Fiordaliza Snell MD PCP - General Family Practice 09/09/22 documented as of this encounter
--- OUTSIDE RECORDS SUMMARY | 2024-08-03 05:36 | XMS_ITS | Encounter Summary ---
Author Organization [facility] Address [address] [place] [address] Care Team Providers Care Lighting Fixtures Decorator Name Role Phone Fiordaliza Snell MD Primary [...] on file Legal Sex Female 2:43 AM REPAIRING CALIBRATOR Gender Identity Not on file Sexual Orientation Not on file documented as of this encounter Plan of Treatment Not on file documented as of this encounter Visit Diagnoses Diagnosis Unspecified symptom associated with female genital organs- Primary documented in this encounter Additional Health Concerns Infection Onset Date Last Indicated Resolved Time R/O COVID-19 07/02/2020 07/02/2020 07/02/2020 8:53 PM REPAIRING CALIBRATOR MRSA Comment:Resolved per Type and Duration of Precautions Recommended for Selected Infections and Conditions document 2023 update 07/02/2020 07/02/2020 03/16/20 24 10:58 AM CDT R/O COVID-19 07/10/2020 07/10/2020 07/10/2020 5:01 PM REPAIRING CALIBRATOR documented as of this encounter Care Teams Lighting Fixtures Decorator Relationship Specialty Start Date End Date Fiordaliza Snell MD PCP - General Family Practice 09/09/22 documented as of this encounter
--- OUTSIDE RECORDS SUMMARY | 2024-08-03 05:36 | XMS_ITS | Encounter Summary ---
Author Organization [facility] Address [address] [place] [address] Care Team Providers Care Silver Solution Mixer Name Role Phone Fiordaliza Snell MD [...] on file Legal Sex Female 2:43 AM RADIOGRAPHER CARDIAC CATHETERIZATION Gender Identity Not on file Sexual Orientation Not on file documented as of this encounter Plan of Treatment Not on file documented as of this encounter Visit Diagnoses Diagnosis Abdominal pain, unspecified site- Primary documented in this encounter Additional Health Concerns Infection Onset Date Last Indicated Resolved Time R/O COVID-19 07/02/2020 07/02/2020 07/02/2020 8:53 PM RADIOGRAPHER CARDIAC CATHETERIZATION MRSA Comment:Resolved per Type and Duration of Precautions Recommended for Selected Infections and Conditions document 2023 update 07/02/2020 07/02/2020 03/16/20 24 10:58 AM CDT R/O COVID-19 07/10/2020 07/10/2020 07/10/2020 5:01 PM RADIOGRAPHER CARDIAC CATHETERIZATION documented as of this encounter Care Teams Silver Solution Mixer Relationship Specialty Start Date End Date Fiordaliza Snell MD PCP - General Family Practice 09/09/22 documented as of this encounter
--- OUTSIDE RECORDS SUMMARY | 2024-08-03 05:36 | XMS_ITS | Encounter Summary ---
Author Organization [facility] Address [address] [place] [address] Care Team Providers Care Biology Research Assistant Name Role Phone Fiordaliza Snell MD Primary [...] on file Legal Sex Female 2:43 AM SUSTAINABILITY ENGINEER Gender Identity Not on file Sexual Orientation Not on file documented as of this encounter Plan of Treatment Not on file documented as of this encounter Visit Diagnoses Diagnosis Pelvic peritoneal adhesions, female (postoperative) (postinfection)- Primary documented in this encounter Additional Health Concerns Infection Onset Date Last Indicated Resolved Time R/O COVID-19 07/02/2020 07/02/2020 07/02/2020 8:53 PM SUSTAINABILITY ENGINEER MRSA Comment:Resolved per Type and Duration of Precautions Recommended for Selected Infections and Conditions document 2023 update 07/02/2020 07/02/2020 03/16/20 24 10:58 AM CDT R/O COVID-19 07/10/2020 07/10/2020 07/10/2020 5:01 PM SUSTAINABILITY ENGINEER documented as of this encounter Care Teams Biology Research Assistant Relationship Specialty Start Date End Date Fiordaliza Snell MD PCP - General Family Practice 09/09/22 documented as of this encounter
[2024-08-03 07:32] VITALS: PULSE 88
[2024-08-03 07:35] VITALS: O2SAT 97
[2024-08-03 07:41] VITALS: BP 150/88; PULSE 96; RESP 18; O2SAT 96
[2024-08-03 07:57] LABS: Influenza A QL RT-PCR Negative (Negative); Influenza B QL RT-PCR Negative (Negative); RSV RNA, RT-PCR Negative (Negative); SARS-CoV-2 RNA PCR Negative (Negative)
--- NOTE | 2024-08-03 09:25 | ADMGEN ---
This patient, Angelina Mcnulty, was admitted to 3 [facility] Surg Room 316-01. Patient/family oriented to hospital policies and general routines including ID bracelet, bed and alarms, visiting hours, pain management, procedures, bathroom and other care routines, personal items, smoking policy, room service/diet, and visiting hours. Information on how to activate the Rapid Response Team has been discussed. Patient/Family are encouraged to report perceived risks to care and to ask questions if they do not understand what they are told or what they should do.
[2024-08-03] MEDS: FUROSEMIDE INJ 40 MG/4 ML VIAL IV PUSH ×2 (09:33→21:48)
[2024-08-03 12:10] VITALS: BMI 37.8
[2024-08-03 14:00] VITALS: BP 115/60; PULSE 94; RESP 18; TEMP 36.6; O2SAT 97
--- NOTE | 2024-08-03 14:44 | PM.IMHP ---
H&P: HPI History of Present Illness Date/Time: 08/03/24 14:44 Chief Complaint: generalized pain Narrative: 58yo female with YAJAIRA on CPAP, stroke, paraplegia, HTN and cystectomy with ileal conduit here for foul odor from urostomy who was recently managed for UTI was discharged on 07/30 who presented to the ER today on account of generalized. ER noted patient presented with Chest pain SOB and weakness and lightheadedness however patient told me at bedside she presented to the ER on account og generalized ache from her chest to abd to lower extremities. Denies any fever, no diarrhea, no vomiting or loss of consciousness. ER eval notable vital signs stable and wnl except for BP 150/88, labs mostly unremarkable. CT chest and AP no acute changes. she was started on Lasix prior to admission. Prior admission patient with chest pain and has stress test done which is negatives. Review of Systems Review of Systems: all other systems were reviewed and negative except as noted in the HPI above PMFSH Past Medical History Medical History Sleep apnea History of MRSA infection Depression Anemia Fibromyalgia Scoliosis DDD (degenerative disc disease) Arthritis Irritable bowel Hemorrhoids GERD (gastroesophageal reflux disease) Asthma HLD (hyperlipidemia) Heart murmur CHF (congestive heart failure) Atrial fibrillation Anxiety Insomnia Obesity (BMI 30-39.9) Paraplegia PTSD (post-traumatic stress disorder) Stroke Hypertension Allergies Surgical History Surgical History History of tonsillectomy History of total cystectomy History of hernia repair History of cholecystectomy History of appendectomy History of cardiac catheterization History of ileal conduit History of back surgery Family History Family History Father Hypertension Cancer Mother Cancer Hypertension Anxiety Grandparent Cancer Social History Social History Smoking status: Never smoker Alcohol intake: never Substance use: never Substance use type: does not use Do You Feel Safe in your Home?: Yes Lack of Transportation: No Lack of Food: Never True Current Housing: I Have Housing Concerned About Future Housing: No Difficulty Paying Gas/Electric Bills: No Difficulty Paying for Meds: No Currently Unemployed: No Education: High School Diploma/GED Difficulty w/ Childcare or Family Care: No Spiritual care concerns: No Meds Home Medications and Allergies Home Medications ?Medication ?Instructions ?Recorded ?Confirmed ?Type alprazolam 0.25 mg tablet 0.25 mg PO TID PRN anxiety #60 tabs 02/17/23 08/03/24 Rx diclofenac sodium 1 % topical gel 2 g topical QID #100 grams 02/17/23 08/03/24 Rx (Voltaren Arthritis Pain) losartan 100 mg tablet 100 mg PO DAILY #90 tabs 02/17/23 08/03/24 Rx olanzapine 5 mg tablet 5 mg PO DAILY #30 tabs 02/17/23 08/03/24 Rx zolpidem 5 mg tablet (Ambien) 5 mg PO QHS #30 tabs 02/17/23 08/03/24 Rx atorvastatin 10 mg tablet 10 mg PO DAILY #90 tabs 08/22/23 08/03/24 Rx escitalopram oxalate 20 mg tablet 20 mg PO DAILY #90 tabs 08/22/23 08/03/24 Rx gabapentin 300 mg capsule 900 mg (3 x 300 mg) PO TID #270 09/15/23 08/03/24 Rx caps aspirin 81 mg tablet,delayed 81 mg PO DAILY #90 tabs 04/15/24 08/03/24 Rx release (Adult Low Dose Aspirin) ondansetron 4 mg disintegrating 4 mg PO Q8H PRN nausea and 05/11/24 08/03/24 Rx tablet vomiting #20 tabs ropinirole 0.5 mg tablet 0.5 mg PO BID #180 tabs 07/07/24 08/03/24 Rx hydrocodone 5 mg-acetaminophen 325 1 tablet PO Q8H PRN pain #30 tabs 07/16/24 08/03/24 Rx mg tablet baclofen 20 mg tablet 20 mg PO TID PRN muscle spasm #90 07/20/24 08/03/24 Rx tabs polyethylene glycol 3350 17 gram 17 g PO DAILY PRN constipation 07/20/24 08/03/24 History oral powder packet (Miralax) sennosides 8.6 mg-docusate sodium 1 tab-cap PO BID PRN constipation 07/20/24 08/03/24 History 50 mg tablet (Senokot-S) linezolid 600 mg tablet 600 mg PO Q12HR #8 tabs 07/30/24 08/03/24 Rx furosemide 20 mg tablet 20 mg PO BID 08/03/24 08/03/24 History metoprolol succinate 25 mg 25 mg PO DAILY 08/03/24 08/03/24 History tablet,extended release 24 hr Allergies Allergy/AdvReac Type Severity Reaction Status Date / Time Penicillins Allergy Intermediate Hives Verified 08/03/24 09:34 Sulfa (Sulfonamide Allergy Intermediate Swelling Verified 08/03/24 09:34 Antibiotics) of Lip/Tongue/Throat vancomycin Allergy Intermediate Hives Verified 08/03/24 09:34 adhesive tape Allergy Mild Blister Verified 08/03/24 09:34 Latex, Natural Rubber Allergy Mild Itching Verified 08/03/24 09:34 Vital Signs Vital Signs - 24 hr 08/02/24 22:28 08/03/24 03:33 08/03/24 07:32 Temperature 96.6 F L Pulse Rate 90 95 88 Respiratory Rate 15 18 Blood Pressure 183/102 H 134/64 Pulse Oximetry 100 97 Oxygen Delivery Room Air 08/03/24 07:35 08/03/24 07:41 08/03/24 08:10 Temperature Pulse Rate 96 Respiratory Rate 18 Blood Pressure 150/88 H Pulse Oximetry 97 96 Oxygen Delivery Room Air Room Air Exam Narrative: General: alert and comfortable Eyes: EOMI, PERRLA ENNT External ears normal, Neck is supple, no masses, Respiratory systems: Clear to auscultation Cardiovascular S1, S2, normal rhythm, no murmur, rub, or gallop; no thrill or palpable murmurs on palpation. Gastrointestinal: soft, diffused abd tenderness, urostomy bag in place; BS present Skin: no rash, lesions, ulcerations, subcutaneous nodules or induration Musculoskeletal: lower extremities tenderness Neurologic: Alert and oriented x3, non focal Mental Status Exam: normal affect H&P: Results Labs Labs: Short CBC 08/03/24 Range/Units 02:46 WBC 5.7 (4.5-10.0) K/mm3 Hgb 12.5 (12.0-15.0) g/dL Hct 36.9 L (37.0-47.0) % Plt Count 188 (150-375) k/mm3 [facility] 08/03/24 02:46 Sodium 139 Potassium 3.4 Chloride 101 Carbon Dioxide 31 H BUN 15 Creatinine 0.58 L Glucose 115 H Calcium 8.5 Cardiac Enzymes 08/03/24 Range/Units 02:46 Troponin I < 0.012 (0.000-0.034) ng/mL Liver Function 08/03/24 Range/Units 02:46 Total Bilirubin 0.8 (0.2-1.3) mg/dL AST 42 H (14-36) U/L ALT 51 H (6-35) U/L Alkaline Phosphatase 74 (38-126) U/L Albumin 3.7 (3.5-5.1) g/dL Assessment and Plan Assessment and plan (1) Body aches: Code(s): R52 - Pain, unspecified Status: Acute Plan Generalized body aches CT chest and AP no acute changes noted chest wall adn abdominal tenderness on exam labs mostly wnl continue PRN pain control PT/OT Leg pain with calf tenderness r/o DVT venous doppler pending HTN titrate home meds with clinical course YAJAIRA continue hoem CPAP Chronic back pain and paraplegia continue PRN pain contorl patient uses powerchair DVT prophylaxis on Sq Lovenox full code surrogate decision maker is Zachary Mcnulty [facility] Advance Care Plan I have confirmed that the patient's Advanced Care Plan is present, code status is documented, or surrogate decision maker is listed in patient medical record.: Yes Medication Reconciliation I have utilized all available resources to obtain, update and review the patients current medications (includes all prescriptions, OTC, herbals, cannabis, and nutritional supplements).: Yes
[2024-08-03] MEDS: HYDROcodone/acetaminophen (*CRX) 5-325 MG TABLET 1 TAB PO ×2 (16:35→21:55)
[2024-08-03] MEDS: DICLOFENAC SODIUM 1% 100 GM GEL (*BKC) 1 APPLIC TOPICAL ×2 (16:36→21:49)
[2024-08-03] MEDS: FUROSEMIDE 20 MG TABLET PO (16:37)
[2024-08-03] MEDS: rOPINIRole HCL 0.5 MG TABLET PO (16:37)
[2024-08-03] MEDS: GABAPENTIN 300 MG CAPSULE 900 MG PO (16:38)
[2024-08-03] MEDS: LINEZOLID 600 MG TABLET PO (21:48)
[2024-08-03] MEDS: ZOLPIDEM TARTRATE (*CRX) 5 MG TABLET PO (21:48)
[2024-08-03] MEDS: BACLOFEN 10 MG TABLET 20 MG PO (21:54)
[2024-08-03 22:00] VITALS: BP 121/82; PULSE 100; RESP 18; TEMP 37.1; O2SAT 96
[2024-08-04] MEDS: KETOROLAC 30 MG/ML VIAL (*BKC) IV PUSH (02:09)
[2024-08-04] MEDS: ALPRAZolam (*CRX) 0.25 MG TABLET PO (02:09)
[2024-08-04 06:00] VITALS: BP 116/78; PULSE 68; RESP 18; TEMP 36.6; O2SAT 97
[2024-08-04] MEDS: HYDROcodone/acetaminophen (*CRX) 5-325 MG TABLET 1 TAB PO (06:03)
[2024-08-04 09:17] LABS: Erythrocyte Sedimentation Rate 21 mm/hr (0-20)
[2024-08-04] MEDS: ASPIRIN 81 MG ENTERIC TABLET PO (09:40)
[2024-08-04] MEDS: FUROSEMIDE INJ 40 MG/4 ML VIAL IV PUSH ×2 (09:40→09:47)
[2024-08-04] MEDS: PREGABALIN (*CRX) 75 MG CAPSULE PO (09:40)
[2024-08-04] MEDS: GABAPENTIN 300 MG CAPSULE 900 MG PO (09:40)
[2024-08-04] MEDS: LOSARTAN POTASSIUM 100 MG TABLET PO (09:40)
[2024-08-04 09:41] VITALS: PULSE 80
[2024-08-04] MEDS: OLANZapine 5 MG TABLET PO (09:41)
[2024-08-04] MEDS: rOPINIRole HCL 0.5 MG TABLET PO (09:41)
[2024-08-04] MEDS: ATORVASTATIN 10 MG TABLET PO (09:41)
[2024-08-04] MEDS: METOPROLOL SUCCINATE EXT REL 25 MG TABCR PO (09:41)
[2024-08-04] MEDS: LINEZOLID 600 MG TABLET PO (09:43)
[2024-08-04] MEDS: FUROSEMIDE 20 MG TABLET PO (09:43)
[2024-08-04] MEDS: ENOXAPARIN 40 MG/0.4 ML SYRINGE SUB-Q (09:47)
--- NOTE | 2024-08-04 11:31 | PM.DS ---
DS: Admitting Diagnosis Discharge Date 08/04/2024 Admitting Diagnosis Generalized body aches DS: Discharge Diagnosis Discharge Diagnosis (1) Body aches: Code(s): R52 - Pain, unspecified Status: Acute DS: Summary Hospital Course Hospital Course: 58yo female with YAJAIRA on CPAP, stroke, paraplegia, HTN and cystectomy with ileal conduit here for foul odor from urostomy who was recently managed for UTI was discharged on 07/30 who presented to the ER today on account of generalized. ER noted patient presented with Chest pain SOB and weakness and lightheadedness however patient told me at bedside she presented to the ER on account og generalized ache from her chest to abd to lower extremities. Denies any fever, no diarrhea, no vomiting or loss of consciousness. ER eval notable vital signs stable and wnl except for BP 150/88, labs mostly unremarkable. CT chest and AP no acute changes. she was started on Lasix prior to admission. XR foot no osteo. no erythema or signs of cellulitis ECHO from 07/24 showed normal LV function Left foot blister was xray no osteo or signs of cellulitis, Venous doppler negative for DVT wound care was consulted patient will continue Lasix and f/u with wound care and PCP. Discussed with patient that nothing acute was found on her work up and she will be discharged to continue follow up with PCP Continue other home meds Patient will f/u with PCP in 3-5 days Time Spent with Patient Time attestation: Total time spent providing and/or coordinating discharge services: DS: Data Data Completed and Pending Labs on day of discharge: Labs from last 24 hours 08/04/24 08:26 ESR 21 H Discharge Plan Discharge Attending physician on discharge: Gerhard Carmona Discharging Clinician: Gerhard Caromna Anticipated Discharge Date/Time: 08/04/24 11:30 Patient Disposition: Home, Self-Care Activity: as tolerated Diet: as tolerated Patient Instructions: Antibiotic Form Patient Language: Ukrainian Stand Alone Forms: General Discharge Information Follow-up/Referrals: Panchito Walters DO [Primary Care Provider] - (F/u with PCP in 3-5 days ) Discharge Medications: Continued furosemide 20 mg tablet 20 mg PO BID metoprolol succinate 25 mg tablet extended release 24 hr 25 mg PO DAILY polyethylene glycol 3350 [Miralax] 17 gram Powder In Packet 17 g PO DAILY PRN (Reason: constipation) sennosides-docusate sodium [Senokot-S] 8.6-50 mg Tablet 1 tab-cap PO BID PRN (Reason: constipation) linezolid 600 mg Tablet 600 mg PO Q12HR Qty: 8 0RF diclofenac sodium [Voltaren Arthritis Pain] 1 % gel 2 g topical QID Qty: 100 1RF Rx Instructions: apply to single elbow, wrist or hand; for hand includes palm/fingers/back of hand alprazolam 0.25 mg tablet 0.25 mg PO TID PRN (Reason: anxiety) Qty: 60 0RF olanzapine 5 mg tablet 5 mg PO DAILY Qty: 30 0RF zolpidem [Ambien] 5 mg tablet 5 mg PO QHS Qty: 30 0RF losartan 100 mg tablet 100 mg PO DAILY Qty: 90 1RF escitalopram oxalate 20 mg tablet 20 mg PO DAILY Qty: 90 1RF atorvastatin 10 mg tablet 10 mg PO DAILY Qty: 90 1RF gabapentin 300 mg capsule 900 mg PO TID Qty: 270 2RF aspirin [Adult Low Dose Aspirin] 81 mg tablet,delayed release (DR/EC) 81 mg PO DAILY Qty: 90 2RF ondansetron 4 mg tablet,disintegrating 4 mg PO Q8H PRN (Reason: nausea and vomiting) Qty: 20 0RF ropinirole 0.5 mg tablet 0.5 mg PO BID Qty: 180 2RF hydrocodone-acetaminophen 5-325 mg tablet 1 tablet PO Q8H PRN (Reason: pain) Qty: 30 0RF baclofen 20 mg tablet 20 mg PO TID PRN (Reason: muscle spasm) Qty: 90 0RF Date of admission: 08/03/24 06:46 Primary Care Provider: Panchito Walters Admitting Provider: Marina Franco Attending physician on admission: Marina Franco Condition: Stable
--- NOTE | 2024-08-04 14:06 | PC.NURSE ---
On 08/04/24, the student, [Karla Fairchild], provided care and completed [facility] documentation on this patient. I have reviewed the student's documentation and agree with the findings.
== END 2024-08-04 14:10 | disposition home or self-care (01) ==
LOC: ANHED 08-03 06:48 → ANH3MEDSUR 08-03 16:07
PROVIDERS: Admitting Provider Internal Medicine; Emergency Provider Emergency Medicine; PCP Internal Medicine; Visit Provider Internal Medicine
DX: R52 Pain, unspecified (principal); S90.822A Blister (nonthermal), left foot, initial encounter; G47.33 Obstructive sleep apnea (adult) (pediatric); Z99.89 Dependence on other enabling machines and devices; G82.20 Paraplegia, unspecified; I11.0 Hypertensive heart disease with heart failure; I50.9 Heart failure, unspecified; J45.909 Unspecified asthma, uncomplicated; I48.91 Unspecified atrial fibrillation; K21.9 Gastro-esophageal reflux disease without esophagitis; E78.5 Hyperlipidemia, unspecified; Z20.822 Contact with and (suspected) exposure to COVID-19; Z79.82 Long term (current) use of aspirin; Z79.899 Other long term (current) drug therapy; Z88.0 Allergy status to penicillin; Z88.2 Allergy status to sulfonamides; Z86.73 Personal history of transient ischemic attack (TIA), and cerebral infarction without residual deficits; Z93.6 Other artificial openings of urinary tract status
CPT/HCPCS: 36415; 71046; 71275; 73630; 74177; 80053; 83880; 84484; 85025; 85610; 85652; 85730; 87637; 93005; 93970; 96372; 96374; 96375; 96376; 99285; A9270; G0378; J1650; J1885; J1940; J2270; Q9967

== ENCOUNTER 2024-10-18 10:44 | Emergency (ER) | payer MEDICARE, SELFPAY ==
--- NOTE | 2024-10-18 11:55 | ED_ITS ---
HPI - Female Genitourinary General Chief complaint: Urogenital-Female Stated complaint: uti, weak, dehydrated Time Seen by Provider: 10/18/24 11:26 History of Present Illness HPI Narrative: Patient is a 52-year-old female who presents to the ER with complaints of 6 days of watery diarrhea, 4 days of decreased p.o. intake, abdominal pain, flank pain, nausea, and generalized achiness. She reports she has had these symptoms with prior UTIs. 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 Her bladder was also has during this procedure so she had a suprapubic catheter, then a neobladder. Patient has a Carreon bag in at all times. She denies any recent fevers but endorses chills. Patient endorses a history of high blood pressure, high cholesterol, and chronic pain. Related Data Home Medications ?Medication ?Instructions ?Recorded ?Confirmed ?Last Taken ?Type polyethylene glycol 3350 17 gram 17 g PO DAILY PRN constipation 07/20/24 08/03/24 07/19/24 History oral powder packet (Miralax) sennosides 8.6 mg-docusate sodium 1 tab-cap PO BID PRN constipation 07/20/24 08/03/24 07/19/24 History 50 mg tablet (Senokot-S) metoprolol succinate 25 mg 25 mg PO DAILY 08/03/24 08/03/24 08/02/24 History tablet,extended release 24 hr Allergies Allergy/AdvReac Type Severity Reaction Status Date / Time Penicillins Allergy Intermediate Hives Verified 10/18/24 12:02 Sulfa (Sulfonamide Allergy Intermediate Swelling Verified 10/18/24 12:02 Antibiotics) of Lip/Tongue/Throat vancomycin Allergy Intermediate Hives Verified 10/18/24 12:02 adhesive tape Allergy Mild Blister Verified 10/18/24 12:02 Latex, Natural Rubber Allergy Mild Itching Verified 10/18/24 12:02 Review of Systems 2 Review of Systems: All systems reviewed & are unremarkable except as noted in HPI and below PMFSH Past Medical History Medical History Sleep apnea History of MRSA infection Depression Anemia Fibromyalgia Scoliosis DDD (degenerative disc disease) Arthritis Irritable bowel Hemorrhoids GERD (gastroesophageal reflux disease) Asthma HLD (hyperlipidemia) Heart murmur CHF (congestive heart failure) Atrial fibrillation Anxiety Insomnia Obesity (BMI 30-39.9) Paraplegia PTSD (post-traumatic stress disorder) Stroke Hypertension Allergies Surgical History Surgical History History of tonsillectomy History of total cystectomy History of hernia repair History of cholecystectomy History of appendectomy History of cardiac catheterization History of ileal conduit History of back surgery Family History Family History Father Hypertension Cancer Mother Cancer Hypertension Anxiety Grandparent Cancer Social History Social History Smoking status: Never smoker Alcohol intake: never Substance use: never Substance use type: does not use Do You Feel Safe in your Home?: Yes Lack of Transportation: No Lack of Food: Never True Current Housing: I Have Housing Concerned About Future Housing: No Difficulty Paying Gas/Electric Bills: No Difficulty Paying for Meds: No Currently Unemployed: No Education: High School Diploma/GED Difficulty w/ Childcare or Family Care: No Spiritual care concerns: No Exam 2 Narrative: GENERAL: Well appearing, well-nourished, non-toxic, in no acute distress. HEAD: Normocephalic, atraumatic. NECK: Supple. No adenopathy, no masses. RESPIRATORY: Airway patent, respirations nonlabored. Clear to auscultation bilaterally, no rales, rhonchi, wheezing. CARDIOVASCULAR: Regular rate and rhythm without murmurs, rubs, or gallops. Peripheral pulses 2+ and equal bilaterally. +CVA tenderness R flank ABDOMINAL: Soft, nontender, nondistended, no hepatosplenomegaly. Normoactive BS. MUSCULOSKELETAL: Moves all extremities. Strength/ROM intact without gross deformities. SKIN: Warm, dry, normal color. No rashes. NEURO: A&O X3. Speech clear. Cranial nerves II-XII intact. No ataxic movements. PSYCHIATRIC: Appropriate mood and affect. Normal interaction. Course Vital Signs Vital signs: Vital Signs Pulse Rate 70 10/18/24 13:27 Respiratory Rate 18 10/18/24 13:27 Blood Pressure 124/52 L 10/18/24 13:27 Pulse Oximetry 99 10/18/24 13:27 Pulse Rate 71 10/18/24 15:00 Respiratory Rate 18 10/18/24 15:00 Blood Pressure 126/76 10/18/24 15:00 Pulse Oximetry 98 10/18/24 15:00 MDM - Female Genitourinary MDM Narrative Medical decision making narrative: Patient is a 52-year-old female who presents to the ER with complaints of 6 days of watery diarrhea, 4 days of decreased p.o. intake, abdominal pain, flank pain, nausea, and generalized achiness. She reports she has had these symptoms with prior UTIs. 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 Her bladder was also has during this procedure so she had a suprapubic catheter, then a neobladder. Patient has a Carreon bag in at all times. She denies any recent fevers but endorses chills. Patient endorses a history of high blood pressure, high cholesterol, and chronic pain. Labs Ordered: CBC, CMP, lactic acid, INR, PTT, ESR, blood cultures Imaging Ordered: None necessary Medications Ordered: 2L normal saline IV bolus, ceftriaxone IV, Dilaudid IV, Pyridium PO, Toradol 15mg IV, Zofran 4mg IV Results: Patient's urinalysis indicates a UTI. Her CBC and lactic acid do not indicate concerns for sepsis. Diagnosis: Urinary tract infection Patient Education/Shared MDM: Results of lab work shared with patient. She endorses continued pain following Toradol administration. Pt given Dilaudid IV and Pyridium PO. She endorses improvement following medication administration. Patient strongly advised to maintain hydration status upon discharge and follow-up with her PCP as soon as possible. She will be discharged home with a prescription for Levofloxacin and Pyridium. Strict return precautions provided. Patient verbalized understanding is in agreement with plan. Vital signs stable at time of discharge. All questions answered. Differential Diagnosis Differential diagnosis: Likely urinary tract infection and other (Pyelonephritis, sepsis, dehydration) Lab Data Attestation: I reviewed the patient's lab results. 10/18/24 12:15 10/18/24 12:15 Labs: Lab Results 10/18/24 10/18/24 10/18/24 Range/Units 12:10 12:15 13:00 WBC 6.0 (4.5-10.0) K/mm3 RBC 4.40 (4.2-5.4) M/mm3 Hgb 12.0 (12.0-15.0) g/dL Hct 36.7 L (37.0-47.0) % MCV 83.4 (80-100) fl MCH 27.3 (26-34) pg MCHC 32.7 (32-36) g/dl RDW 14.0 (11.5-14.5) % Plt Count 177 (150-375) k/mm3 MPV 11.1 H (7.4-10.4) fl Immature Gran % (Auto) 0.7 H (0-0.5) % Neut % (Auto) 70.0 (45.5-73.1) % Lymph % (Auto) 18.6 (18.3-44.2) % [place] % (Auto) 9.3 H (2.6-8.5) % Eos % (Auto) 0.7 (0-4.4) % Baso % (Auto) 0.7 (0.2-1.2) % Lymph # (Auto) 1.12 (0.9-3.2) K/mm3 [place] # (Auto) 0.6 (0.1-0.6) K/mm3 Eos # (Auto) 0.0 (0-0.3) K/mm3 Baso # (Auto) 0.0 (0.0-0.1) K/mm3 Abs Immat Gran (auto) 0.04 H (0.00-0.031) K/mm3 Absolute Neuts (auto) 4.2 (1.3-6.7) K/mm3 Absolute Nucleated RBC 0.000 (0.0-0.012) K/mm3 Nucleated RBC % 0.0 (0.0-0.2) % ESR 77 H (0-20) mm/hr PT 15.9 H (11.1-14.7) Seconds INR 1.2 APTT 20.5 L (22.3-36.8) Seconds Sodium 137 (137-145) mmol/L Potassium 3.1 L (3.4-5.0) mmol/L Chloride 99 (98-107) mmol/L Carbon Dioxide 30 (22-30) mmol/L Anion Gap 8 (4-12) mmol/L BUN 11 (7-17) mg/dL Creatinine 0.58 L (0.7-1.0) mg/dL Estim Creat Clear Calc 111 ml/min Estimated GFR > 60 (59 - ) Glucose 114 H (65-110) mg/dL Lactic Acid 1.1 (0.7-2.0) mmol/L Calcium 8.3 L (8.4-10.2) mg/dL Total Bilirubin 1.4 H (0.2-1.3) mg/dL AST 26 (14-36) U/L ALT 16 (6-35) U/L Alkaline Phosphatase 83 (38-126) U/L C-Reactive Protein 13.4 H (<1.0) mg/dL Total Protein 7.0 (6.3-8.2) g/dL Albumin 3.9 (3.5-5.1) g/dL Urine Color Yellow (Yellow) Urine Appearance Cloudy H (Clear) Urine pH 6.5 (5.0-9.0) Ur Specific [place] 1.011 (1.001-1.035) Urine Protein Trace (Negative) mg/dL Urine Glucose (UA) Negative (Negative) mg/dL Urine Ketones Negative (Negative) mg/dL Ur Blood (Man) 2+ H (Negative) Urine Nitrate Positive H (Negative) Urine Bilirubin Negative (Negative) Urine Urobilinogen 1.0 (<2.0) mg/dL Add Ur Microanalysis Reviewed Leukocyte Esterase Rfl 3+ H (Negative) ERICK/UL Urine RBC 6-10 H (0-2) /hpf Urine WBC 51-100 H (0-3) /hpf Ur Squamous Epith Cells Occasional (Few) /hpf Urine Bacteria 4+ H /hpf Urine Casts 3-5 Imaging Data Attestation: I personally reviewed and interpreted this imaging study as follows: Discharge Plan Discharge Clinical Impression: Urinary tract infection Qualifiers: Urinary tract infection type: acute cystitis Hematuria presence: without hematuria Qualified Code(s): N30.00 - Acute cystitis without hematuria Patient Disposition: Home Condition: Stable Instructions: Antibiotic Form, Urinary Tract Infection in Women (ED) Additional Instructions: Please return to the ER with any worsening symptoms. Follow-up with primary care provider as soon as possible. Take all medications as prescribed, including regularly scheduled medications. Complete your full dose of antibiotics. Patient Language: Estonian Prescriptions: New levofloxacin 750 mg tablet 750 mg PO DAILY Qty: 7 0RF phenazopyridine [Pyridium] 200 mg tablet 200 mg PO TID Qty: 6 0RF No Action metoprolol succinate 25 mg tablet extended release 24 hr 25 mg PO DAILY polyethylene glycol 3350 [Miralax] 17 gram Powder In Packet 17 g PO DAILY PRN (Reason: constipation) sennosides-docusate sodium [Senokot-S] 8.6-50 mg Tablet 1 tab-cap PO BID PRN (Reason: constipation) linezolid 600 mg Tablet 600 mg PO Q12HR Qty: 8 0RF diclofenac sodium [Voltaren Arthritis Pain] 1 % gel 2 g topical QID Qty: 100 1RF Rx Instructions: apply to single elbow, wrist or hand; for hand includes palm/fingers/back of hand alprazolam 0.25 mg tablet 0.25 mg PO TID PRN (Reason: anxiety) Qty: 60 0RF olanzapine 5 mg tablet 5 mg PO DAILY Qty: 30 0RF zolpidem [Ambien] 5 mg tablet 5 mg PO QHS Qty: 30 0RF losartan 100 mg tablet 100 mg PO DAILY Qty: 90 1RF escitalopram oxalate 20 mg tablet 20 mg PO DAILY Qty: 90 1RF atorvastatin 10 mg tablet 10 mg PO DAILY Qty: 90 1RF aspirin [Adult Low Dose Aspirin] 81 mg tablet,delayed release (DR/EC) 81 mg PO DAILY Qty: 90 2RF ondansetron 4 mg tablet,disintegrating 4 mg PO Q8H PRN (Reason: nausea and vomiting) Qty: 20 0RF ropinirole 0.5 mg tablet 0.5 mg PO BID Qty: 180 2RF baclofen 20 mg tablet 20 mg PO TID PRN (Reason: muscle spasm) Qty: 90 0RF furosemide 20 mg tablet See Rx Instructions .ROUTE .COMPLEX Qty: 90 2RF Dose Instruction: 20 MG ORALLY EVERY MORNING Rx Instructions: 20 MG ORALLY EVERY MORNING pregabalin 100 mg capsule 100 mg PO TID Qty: 90 0RF hydrocodone-acetaminophen 7.5-325 mg tablet 1 tablet PO Q8H PRN (Reason: pain) Qty: 30 0RF Follow-up/Referrals: Panchito Walters DO [Primary Care Provider] - Time of Disposition: 16:52
[2024-10-18] MEDS: SODIUM CHLORIDE 0.9% IV 1,000 ML 999 ML IV CONT ×2 (12:10→13:52)
[2024-10-18] MEDS: KETOROLAC 15 MG/ML VIAL (*BKC) IV PUSH (12:11)
[2024-10-18] MEDS: ONDANSETRON INJ 4 MG/2 ML VIAL IV PUSH (12:11)
--- OUTSIDE RECORDS SUMMARY | 2024-10-18 12:21 | XMS_ITS | Encounter Summary ---
Author Organization [facility] Address [address] [place] [address] Care Team Providers Care Wood Router Hand Name Role Phone Fiordaliza Snell MD Primary Care Provider Encounter Details Date Type Department Care Team (Latest Contact Info) Description 11/13/2004 Outpatient Historical [facility] RONALD Garcia, Anjali Gupta MD NO ADDRESS ON FILE LUMP OR MASS IN BREAST (Primary Dx) Social History Tobacco Use Types Packs/Day Years Used Date Smoking Tobacco: Never Assessed Comments Unknown Sex and Gender Information Value Date Recorded Sex Assigned at Not on file Legal Sex Female 2:43 AM PUMPMAN Gender Identity Not on file Sexual Orientation Not on file documented as of this encounter Plan of Treatment Not on file documented as of this encounter Visit Diagnoses Diagnosis Lump or mass in breast- Primary documented in this encounter Additional Health Concerns Infection Onset Date Last Indicated Resolved Time R/O COVID-19 07/02/2020 07/02/2020 07/02/2020 8:53 PM PUMPMAN MRSA Comment:Resolved per Type and Duration of Precautions Recommended for Selected Infections and Conditions document 2023 update 07/02/2020 07/02/2020 03/16/20 24 10:58 AM CDT R/O COVID-19 07/10/2020 07/10/2020 07/10/2020 5:01 PM PUMPMAN documented as of this encounter Care Teams Wood Router Hand Relationship Specialty Start Date End Date Fiordaliza Snell MD PCP - General Family Practice 09/09/22 documented as of this encounter
--- OUTSIDE RECORDS SUMMARY | 2024-10-18 12:21 | XMS_ITS | Encounter Summary ---
Author Organization [facility] Address [address] [place] [address] Care Team Providers Care Human Resources Temp Name Role Phone Fiordaliza Snell MD Primary Care Provider Encounter Details Date Type Department Care Team (Late st Contact Info) Description 10/10/2003 Outpatient Historical [facility] Franki Grimes DO [address] [place] [address] Er, Authorized P NO ADDRESS ON FILE LUMBAGO (Primary Dx) Social History Tobacco Use Types Packs/Day Years Used Date Smoking Tobacco: Never Assessed Comments Unknown Sex and Gender Information Value Date Recorded Sex Assigned at Not on file Legal Sex Female 2:43 AM VICE PRESIDENT INVESTOR RELATIONS Gender Identity Not on file Sexual Orientation Not on file documented as of this encounter Plan of Treatment Not on file documented as of this encounter Visit Diagnoses Diagnosis Lumbago- Primary documented in this encounter Additional Health Concerns Infection Onset Date Last Indicated Resolved Time R/O COVID-19 07/02/2020 07/02/2020 07/02/2020 8:53 PM VICE PRESIDENT INVESTOR RELATIONS MRSA Comment:Resolved per Type and Duration of Precautions Recommended for Selected Infections and Conditions document 2023 update 07/02/2020 07/02/2020 03/16/20 24 10:58 AM CDT R/O COVID-19 07/10/2020 07/10/2020 07/10/2020 5:01 PM VICE PRESIDENT INVESTOR RELATIONS documented as of this encounter Care Teams Human Resources Temp Relationship Specialty Start Date End Date Fiordaliza Snell MD PCP - General Family Practice 09/09/22 documented as of this encounter
--- OUTSIDE RECORDS SUMMARY | 2024-10-18 12:21 | XMS_ITS | Clinical Summary ---
Author Organization [facility] Address [address] [place] [address] Care Team Providers Care Mixer Diamond Powder Name Role Phone Unavailable Primary Care Provider [...] Comments Blood Pressure 152/77 05/21/2019 8:00 AM DIRECTOR OF EVENT MARKETING Pulse 75 05/21/2019 8:00 AM DIRECTOR OF EVENT MARKETING Temperature 36.3 C (97.3 F) 05/21/2019 8:00 AM DIRECTOR OF EVENT MARKETING Respiratory Rate 18 05/21/2019 8:00 AM DIRECTOR OF EVENT MARKETING Oxygen Saturation 98% 05/21/2019 8:00 AM DIRECTOR OF EVENT MARKETING Inhaled Oxygen Concentration - - Weight 108.9 kg (240 lb 1.6 oz) 05/09/2019 6:52 AM DIRECTOR OF EVENT MARKETING Height 172.7 cm (5' 8 ) 04/18/2019 [...]
--- OUTSIDE RECORDS SUMMARY | 2024-10-18 12:21 | XMS_ITS | Encounter Summary ---
Author Organization [facility] Address [address] [place] [address] Care Team Providers Care Adobe Cq Developer Name Role Phone Shilpa Frazier DO Primary Care Provider Lidia Barajas MD Unavailable Ab Melara MD Primary Care Provid er Encounter Details Date Type Department Care Team (Late st Contact Info) Description 06/15/2018 Telephone [facility] [address] [facility] 1st [place] [address] Emil Clarke, RT Social History Tobacco Use Types Packs/Day Years Used Date Smoking Tobacco: Never Smokeless Tobacco: Never Alcohol Use Standard Drinks/Week Comments No 0 (1 standard drink = 0.6 oz pur e alcohol) Comments No Sex and Gender Information Value Date Recorded Sex Assigned at Not on file Legal Sex Female 11:49 PM BUSINESS PROCESS MODELER Gender Identity Not on file Sexual Orientation [...] DT MRSA 12/27/2021 03/06/2022 09/02/2022 3:05 AM BUSINESS PROCESS MODELER documented as of this encounter Care Teams Adobe Cq Developer Relationship Specialty Start Date End Date Frazier Shilpaolimpia Law DO PCP - General 06/12/18 07/15/21 Ab Melara MD [address] [address] PCP - General Family Medicine 07/16/21 Lidia Barajas MD Anesthesiologist Anesthesiology 01/13/20 documented as of this encounter
--- OUTSIDE RECORDS SUMMARY | 2024-10-18 12:21 | XMS_ITS | Encounter Summary ---
Author Organization [facility] Address [address] [place] [address] Care Team Providers Care Air Twister Winder Name Role Phone Fiordaliza Snell MD Primary [...] on file Legal Sex Female 2:43 AM CRIMINAL INTELLIGENCE SPECIALIST Gender Identity Not on file Sexual [...] fL INTERFACE SYSTEM 10/14/2004 6:07 AM CDT Russell Marie HEMATOLOGY ORDERABLES Final Resu lt Performing Organization Address [facility] Phone Number INTERFACE SYSTEM Refer to clinic/hospital department * (ABNORMAL) BASIC METABOLIC PANEL (10/14/2004 6:07 AM CDT) GLUCOSE 90 65 - 109 mg/dL INTERFACE [...] mmol/L INTERFACE SYSTEM 10/14/2004 6:07 AM CDT Russell Marie CHEMISTRY ORDERABLES Final Resul t Performing Organization Address [facility] Phone Number INTERFACE SYSTEM Refer to clinic/hospital department * (ABNORMAL) AMYLASE (10/13/2004 9:56 AM CDT) AMYLASE 24(L) 28 - 100 U/L INTERFACE SYSTEM 10/13/2004 9:56 AM CDT Russell Marie CHEMISTRY ORDERABLES Final Resul t Performing Organization Address [facility] Phone Number INTERFACE SYSTEM Refer to clinic/hospital department * LIPASE (10/13/2004 9:56 AM CDT) LIPASE 20 13 - 60 U/L INTERFAC E SYSTEM 10/13/2004 9:56 AM CDT [facility] CHEMISTRY ORDERABLES Final Resul t Performing Organization Address [facility] Phone Number INTERFACE SYSTEM Refer to [...] K/uL INTERFACE SYSTEM 10/13/2004 5:00 AM CDT [facility] HEMATOLOGY ORDERABLES Final Resu lt Performing Organization Address [facility] Phone Number INTERFACE SYSTEM Refer to [...] fL INTERFACE SYSTEM 10/13/2004 5:00 AM CDT Russell Salazar HEMATOLOGY ORDERABLES Final Resu lt Performing Organization Address [facility] Phone Number INTERFACE SYSTEM Refer to clinic/hospital department * (ABNORMAL) C-REACTIVE PROTEIN (10/13/2004 5:00 AM CDT) CRP 1.3(H) 0.0 - 0.8 mg/dL INTERFACE SYSTEM 10/13/2004 5:00 AM CDT Russell Salazar CHEMISTRY ORDERABLES Final Resul t Performing Organization Address [facility] Phone Number INTERFACE SYSTEM Refer to [...] Negative INTERFACE SYSTEM 10/12/2004 9:[address] MD URINE ORDERABLES Final Result Performing Organization Address [facility] Phone Number INTERFACE SYSTEM Refer to clinic/hospital department * PT AND APTT (10/12/2004 9:17 PM CDT) PROTIME 14.4 12.9 - 15.7 Seconds INTERFACE SYSTEM INR 1.0 0.9 - 1.1 INTERFACE SYSTEM Comment: INR Therapeutic Range: Adult: 2.0 - 3.0 for pulmonary embolism or prophylaxis against venous thrombosis or systemic embolization. 2.0 - 3.0 for patients with tissue heart valves. 3.0 - 4.5 for patients with mechanical heart valves. Pediatric (12 years and under): 1.5 - 3.0 Although [...] SYSTEM Comment: PTT Therapeutic Range: Heparin Level PTT (seconds) <0.10 units/mL <45 0.10 - 0.30 units/mL 45 - 65 0.30 - 0.70 units/mL* 65 - 106* 0.70 - 1.00 units/mL 106 - 137 *corresponds to therapeutic range for unfractionated heparin 10/12/2004 9:[address] MD HEMATOLOGY ORDERABLES Final Resu lt Performing Organization Address [facility] Phone Number INTERFACE SYSTEM Refer to clinic/hospital department * (ABNORMAL) C-REACTIVE PROTEIN (10/12/2004 9:17 PM CDT) CRP 1.4(H) 0.0 - 0.8 mg/dL INTERFACE SYSTEM 10/12/2004 9:[address] MD CHEMISTRY ORDERABLES Final Resul t Performing Organization Address [facility] Phone Number INTERFACE SYSTEM Refer to clinic/hospital department * LIPASE (10/12/2004 9:17 PM CDT) LIPASE 41 13 - 60 U/L INTERFAC E SYSTEM 10/12/2004 9:[address] MD CHEMISTRY ORDERABLES Final Resul t Performing Organization Address [facility] Phone Number INTERFACE SYSTEM Refer to clinic/hospital department * AMYLASE (10/12/2004 9:17 PM CDT) AMYLASE 39 28 - 100 U/L INTERFACE SYSTEM Comment:Previous specimen us ed; approved by floor. 10/12/2004 9:[address] MD CHEMISTRY ORDERABLES Final Resul t Performing Organization Address [facility] Phone Number INTERFACE SYSTEM Refer to [...] Resu lt Performing Organization Address [facility] Phone Number INTERFACE SYSTEM Refer to [...] fL INTERFACE SYSTEM 10/12/2004 8:[address] MD HEMATOLOGY ORDERABLES Final Resu lt Performing Organization Address [facility] Phone Number INTERFACE SYSTEM Refer to [...] Resul t Performing Organization Address [facility] Phone Number INTERFACE SYSTEM Refer to clinic/hospital department documented in this encounter Visit Diagnoses Diagnosis Abdominal pain, right lower quadrant- Primary documented in this encounter Additional Health Concerns Infection Onset Date Last Indicated Resolved Time R/O COVID-19 07/02/2020 07/02/2020 07/02/2020 8:53 PM CRIMINAL INTELLIGENCE SPECIALIST MRSA Comment:Resolved per Type and Duration of Precautions Recommended for Selected Infections and Conditions document 2023 update 07/02/2020 07/02/2020 03/16/20 10:58 AM CDT R/O COVID-19 07/10/2020 07/10/2020 07/10/2020 5:01 PM CRIMINAL INTELLIGENCE SPECIALIST documented as of this encounter Care Teams Air Twister Winder Relationship Specialty Start Date End Date Fiordaliza Snell MD PCP - General Family Practice 09/09/22 documented as of this encounter
--- OUTSIDE RECORDS SUMMARY | 2024-10-18 12:21 | XMS_ITS | Encounter Summary ---
Author Organization [facility] Healthcare Address [address] [place] [address] Care Team Providers Care Kapok Machine Operator Name Role Phone Unknown, Notinfile Primary Care Provider Unavail able Shilpa Frazier DO Primary Care Provider Lidia Barajas MD Unavailable Ab Melara MD Primary Care Provid er Encounter Details Date Type Department Care Team (Late st Contact Info) Description 04/07/2018 Telephone [facility] [address] [facility] 1st [place] [address] Kate Johnson, RT Social History Tobacco Use Types Packs/Day Years Used Date Smoking Tobacco: Never Smokeless Tobacco: Never Alcohol Use Standard Drinks/Week Comments No 0 (1 standard drink = 0.6 oz pur e alcohol) Comments No Sex and Gender Information Value Date Recorded Sex Assigned at Not on file Legal Sex Female 11:49 PM TOPSTITCHER LOCKSTITCH Gender Identity Not on file [...] DT MRSA 12/27/2021 03/06/2022 09/02/2022 3:05 AM TOPSTITCHER LOCKSTITCH documented as of this encounter Care Teams Kapok Machine Operator Relationship Specialty Start Date End Date Unknown, Notinfile PCP - General 08/28/17 06/11/18 Shilpa Frazier DO PCP - General 06/12/18 07/15/21 Ab Melara MD [address] [address] PCP - General Family Medicine 07/16/21 Lidia Barajas MD Anesthesiologist Anesthesiology 01/13/20 documented as of this encounter
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
--- OUTSIDE RECORDS SUMMARY | 2024-10-18 12:21 | XMS_ITS | Continuity of Care Document ---
Author Organization [facility] Address [address] [place] [id number] Phone Care Team Providers Care Refueling Rampman Name Role Phone Jon Rodriguez MD Unavailable Unavailable Advance Directives Directive Yes / No Effective Date File Name No Information Encounters Encounter Description Practice Location Reason(s) For Visit Diagnoses Date Provider Providers Copied on Encounter [facility], [address] [facility], [place], [place], [id number], tel:[phone] [facility] LUMBAGO 0 Michael Webb. [address] [place] [address], [id number], . tel:[phone] [facility], [address] [facility], [place], [place], [id number], tel:[phone] [facility] LUMBOSACRAL NEURITIS NOS 0 Ranjith Salazar. [address] [place] [address], [id number], . tel:[phone] [facility] [address] [facility], [place], [place], [id number], tel:[phone] [facility] SPINAL STENOSIS-LUMBA R 8 No Information [facility] [address] [facility], [place], [place], [id number], tel:[phone] [facility] JOINT DIS NEC-PELVIS 8 No Information [facility] [address] [place] [address], [id number], tel:[phone] [facility] [place] (Ip) ARTHRODESIS STATUS 7 Michael Webb. [address] [place], [place], [address], [place]. tel:[phone] [facility], [address] [facility], [place], [place], [id number], [place] tel:[phone] [facility] [place] (Ip) LUMBAR DISC DISPLACEMENT 7 Michael Webb. [address] [facility], [place], [place], [id number], [place]. tel:[phone] [facility], [address] [facility], [place], [place], [address], [place] tel:[phone] [facility] [place] (Op) PREOP RESPIRATORY EXAM 7 No Information [facility], [address] [facility], [place], [place], [id number], [place] tel:[phone] [facility] [place] (Op) PAIN IN LIMB 7 Michael Webb. [address] [place] [address], [place], [place], [id number], [place]. tel:[phone] [facility], [address] [facility], [place], [place], [id number], [place] tel:[phone] [facility] CERVICALGIA 6 Juliann Gibson. [address], [place], [place], [address], [place]. tel:[phone] [facility], [address] [place] [address], [id number], [place] tel:[phone] [facility] OTH ADV EFF MED/BIO SUB 6 No Information [facility], [address] [facility], [place], [place], [id number], [place] tel:[phone] [facility] [place] (Er) FALL NOS 2200 6 Monica Tapia. [address], [place], [place], [address]. tel:[phone] [facility], [address] [facility], [place], [place], [id number], [place] tel:[phone] [facility] [place] (Op) HEADACHE 5200 6 Ranjith Salazar. [address], [place], [place], [address], [place]. tel:[phone] [facility], [address] [facility], [place], [place], [address], tel:[phone] [facility] [place] (Op) HEAD INJURY NOS 6 Michael Castellano [address] [place], [place], [id number], . tel:[phone] [facility], [address] [facility], [place], [place], [id number], tel:[phone] [facility] [place] (Er) CERVICAL SPINAL STENOSIS 6 Juliann Sauceda [address] [place] [address], [id number], . tel:[phone] [facility], [address] [facility], [place], [place], [address], tel:[phone] [facility] [place] (Er) BRACHIAL NEURITIS NOS 6 Juliann Sauceda [address] [place] [address], [id number], . tel:[phone] [facility], [address] [facility], [place], [place], [address], tel:[phone] [facility] [place] (Ip) FOLLOW-UP SURGERY NOS 4 Michael Castellano [address] [place], [place], [id number], . tel:[phone] [facility], [address] [facility], [place], [place], [address], tel:[phone] [facility] [place] (Op) COUGH 4 No Information Family History Family Member Type Diagnosis Age At Onset No Information Payers Payer name Insurance type Covered republican ID Authoriza tion(s) No Information Social History [...]
--- OUTSIDE RECORDS SUMMARY | 2024-10-18 12:22 | XMS_ITS | Encounter Summary ---
Author Organization [facility] Address [address] [place] [address] Care Team Providers Care Implementation Director Name Role Phone Fiordaliza Snell MD Primary Care Provider Encounter Details Date Type Department Care Team (Late st Contact Info) Description 05/06/2001 Outpatient Historical [facility] EM[facility] Pratik Fisher [place] [facility] [place] [address] [place], Authorized P NO ADDRESS ON FILE ABDOMINAL PAIN OTHER SPEC SITE (Primary Dx) Social History Tobacco Use Types Packs/Day Years Used Date Smoking Tobacco: Never Assessed Comments Unknown Sex and Gender Information Value Date Recorded Sex Assigned at Not on file Legal Sex Female 2:43 AM 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 Gender Identity Not on file Sexual Orientation Not on file documented as of this encounter Plan of Treatment Not on file documented as of this encounter Visit Diagnoses Diagnosis Abdominal pain, other specified site- Primary documented in this encounter Additional Health Concerns Infection Onset Date Last Indicated Resolved Time R/O COVID-19 07/02/2020 07/02/2020 07/02/2020 8:53 PM TELEPHONE 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 MRSA Comment:Resolved per Type and Duration of Precautions Recommended for Selected Infections and Conditions document 2023 update 07/02/2020 07/02/2020 03/16/20 24 10:58 AM CDT R/O COVID-19 07/10/2020 07/10/2020 07/10/2020 5:01 PM TELEPHONE 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 documented as of this encounter Care Teams Implementation Director Relationship Specialty Start Date End Date Fiordaliza Snell MD PCP - General Family Practice 09/09/22 documented as of this encounter
--- OUTSIDE RECORDS SUMMARY | 2024-10-18 12:22 | XMS_ITS | Patient Health Record ---
Author Organization [facility] Address [address] [place] [address] Care Team Providers Care Forensic Materials Engineer Name Role Phone Jj Nuñez Unavailable [phone] Dave Louis Unavailable Unavailable Allergies Allergen (clinical drug ingredient) Drug/Non Drug Allergy documented on EMR Reaction Allergy Type Onset Date Status Latex Latex Unknown Allergy Active Substance with sulfonamide structure and antibacterial mechanism of action (substance) Sulfa Antibiotics Unknown Drug Allergy Active Reason For Referral No Information Medications Medication SIG (Take, Route, Frequency, Duration) Notes [...] Active Diclofenac Active Thera M Plus Active Social History Tobacco Use: Social History Observation Description Date Details (start date - stop date) Never Smoker NA - NA Tobacco Use/Smoking Question Answer Notes Are you a nonsmoker Problems Problem Type SNOMED Code ICD Code Onset Dates Problem Status W/U Status Risk Notes Problem 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 Problem Lumbosacral radiculopathy (2314058) Radiculopathy, lumbosacral region (M54.17) Active confirmed Plan Of Treatment No Information Insurance Providers Payer Name Payer Address Payer Phone Subscriber Number Group Number Insured Name Patient Relationship to Insured Coverage Start Date Coverage End Date [facility] [address] [place] [address] [id number] Angelina Mcnulty Self - patient is the insured Medical (General) History Medical History History ICD Code HBP heart attack osteoarthritis fibromyalgia urinary incontinence headaches migraines stroke nerve damage IBS asthma chronic bronchitis pneumonia depression anxiety Surgical History Surgery Date(Month/Year) spine fusion & stimulator 2004 spine fusion 2006 spine fusion 2021
--- OUTSIDE RECORDS SUMMARY | 2024-10-18 12:22 | XMS_ITS | Encounter Summary ---
Author Organization [facility] Address [address] [place] [address] Care Team Providers Care Efficiency Expert Name Role Phone Fiordaliza Snell MD Primary Care Provider Encounter Details Date Type Department Care Team (Latest Contact Info) Description 07/04/2002 Inpatient Historical [facility] PATIENT IN A BED Anjali Garcia MD NO ADDRESS ON FILE OVARIAN CYST NEC/NOS (Primary Dx) Social History Tobacco Use Types Packs/Day Years Used Date Smoking Tobacco: Never Assessed Comments Unknown Sex and Gender Information Value Date Recorded Sex Assigned at Not on file Legal Sex Female 2:43 AM CLERICAL RECEPTIONIST Gender Identity Not on file Sexual Orientation Not on file documented as of this encounter Plan of Treatment Not on file documented as of this encounter Visit Diagnoses Diagnosis Other and unspecified ovarian cyst- Primary documented in this encounter Additional Health Concerns Infection Onset Date Last Indicated Resolved Time R/O COVID-19 07/02/2020 07/02/2020 07/02/2020 8:53 PM CLERICAL RECEPTIONIST MRSA Comment:Resolved per Type and Duration of Precautions Recommended for Selected Infections and Conditions document 2023 update 07/02/2020 07/02/2020 03/16/20 24 10:58 AM CDT R/O COVID-19 07/10/2020 07/10/2020 07/10/2020 5:01 PM CLERICAL RECEPTIONIST documented as of this encounter Care Teams Efficiency Expert Relationship Specialty Start Date End Date Fiordaliza Snell MD PCP - General Family Practice 09/09/22 documented as of this encounter
--- OUTSIDE RECORDS SUMMARY | 2024-10-18 12:22 | XMS_ITS | Continuity of Care Document ---
Author Organization [facility] Address [address] [place] [address] Phone Care Team Providers Care Check Airman Name Role Phone Shreyas Dumont MD Unavailable Unavailable Allergies, Adverse Reactions, Alerts Substance Reaction Status Criticality Sulfa (Sulfonamide Antibiotics) Hives Active No Information Penicillins Hives Active No Information TAPE, OCCLUSIVE ADHESIVE Active No Information Penicillins Unknown Active No Information Medications Medication Instructions Dosage Effective Dates (start - stop) Status Comments [place] 5 mg-325 mg tablet take 1-2 tabs [...] VIEWS 2015 OFFICE/OUTPATIENT VISIT EST OFFICE/OUTPATIENT VISIT [facility] Advance Directives Directive Yes / No Effective Date File Name No Information Encounters Encounter Description Practice Location Reason(s) For Visit Diagnoses Date Provider Providers Copied on Encounter [facility], [address], [place], [address], [place] [phone] [facility] [place] Ulnar neuropathy at elbow, leftPostopera tive visit 0 7 Tim Pritchett. [address], [place], [place], [id number] . tel: [phone] [facility], [address] [address], [place], [address], [place] tel:[phone] [facility] Ulnar neuropathy at elbow, left 8 7 Paul Handley. [address], [place], [place], [id number] . tel: [phone] [facility], [address] [address], [place], [address], [place] [phone] [facility] Numbness of left hand 7- 7 Tim Pritchett. [address], [place], [place], [id number] . tel: [phone] [facility], [address] [address], [place], [address], [place] [phone] [facility] Ty Postoperative visit 6 Tim Pritchett. [address], [place], [place], [address] . tel: [phone] [facility], [address] [facility] [facility], [place], [address], [place] tel:[phone] [facility] Ulnar neuropathy at elbow, left 6 Tim Pritchett. [address], [place], [place], [address] . tel: [phone] OFFICE/OUTPA TIENT VISIT EST [facility], [address], [place], [address], [place] tel:[phone] [facility] [place] Pain in left elbowUlnar neuropathy at elbow, left 6 Tim Pritchett. [address], [place], [place], [id number] . tel: [phone] OFFICE/OUTPA TIENT VISIT EST [facility], [address], [place], [address], [place] [phone] [facility] [place] Pain in left elbowUlnar neuritis, left 6 Tim Pritchett. [address], [place], [place], [address] . tel: [phone] Referring Provider: [facility]igue [facility] [address], [place], [address]. [phone] OFFICE/OUTPA TIENT VISIT [facility], [address] [facility] [address], [place], [address], [place] [phone] [facility] evnh left thumb/hand (chief complaint) Primary osteoarthriti s of first carpometacarp al joint of left handDe Quervain's tenosynovitis 6 Ciera Brice. [address] [place], [place], [id number] . tel: [phone] Family History Family Member Type Diagnosis Age [...]
--- OUTSIDE RECORDS SUMMARY | 2024-10-18 12:22 | XMS_ITS | Encounter Summary ---
Author Organization [facility] Address [address] [place] [address] Care Team Providers Care Concrete Buster Operator Name Role Phone Fiordaliza Snell MD [...] on file Legal Sex Female 2:43 AM ELECTRICAL APPRENTICE Gender Identity Not on file Sexual Orientation Not on file documented as of this encounter Plan of Treatment Not on file documented as of this encounter Visit Diagnoses Diagnosis Chronic salpingitis and oophoritis- Primary documented in this encounter Additional Health Concerns Infection Onset Date Last Indicated Resolved Time R/O COVID-19 07/02/2020 07/02/2020 07/02/2020 8:53 PM ELECTRICAL APPRENTICE MRSA Comment:Resolved per Type and Duration of Precautions Recommended for Selected Infections and Conditions document 2023 update 07/02/2020 07/02/2020 03/16/20 24 10:58 AM CDT R/O COVID-19 07/10/2020 07/10/2020 07/10/2020 5:01 PM ELECTRICAL APPRENTICE documented as of this encounter Care Teams Concrete Buster Operator Relationship Specialty Start Date End Date Fiordaliza Snell MD PCP - General Family Practice 09/09/22 documented as of this encounter
--- OUTSIDE RECORDS SUMMARY | 2024-10-18 12:22 | XMS_ITS | Clinical Summary ---
Author Organization [facility] Address [address] [place] [address] Care Team Providers Care Bottling Line Attendant Name Role Phone Lidia Barajas MD Unavailable Shilpa Gandhi MD Unavailable Iron Galindo PA-C Primary Care Provide r Cresencio Ghosh MD Unavailable Source Comments [facility],non-owned Affiliates and Associated Physician Practices is amultiple site organization consisting of ambulatory clinics and hospital sitesin [place], [place], [place] and [place]. This disclosure is being madepursuant to the Care Everywhere program and may not contain all information available regarding this patient. Last updated 18.[facility] Allergies Active Allergy Reactions Criticality Noted Date [...] document. Alwaysverify current medications with the patient. losartan (COZAAR) 50 MG tabletIndicati ons:Hypertensi on Take 1 tablet by mouth 2 times daily Reasons: High Blood Pressure Disorder 01/30/20 20 Active atorvastatin (LIPITOR) 10 MG tablet Take 1 tablet by mouth at bedtime 90 tablet 3 03/31/20 20 Active diclofenac sodium (VOLTAREN) 1 % gelIndications :Back Pain Apply 2 g to affected area 4 times daily as needed Reasons: Backache 150 g 1 05/22/20 20 Active escitalopram (LEXAPRO) 20 MG tablet Take 1 (one) tablet by mouth once daily 90 tablet 3 07/17/19 21 Active metoprolol succinate XL 24hr (TOPROL XL) 25 MG tablet Take 1 (one) tablet by mouth at bedtime 08/30/19 21 Active Lidocaine-Gianna agen-Aloe Vera (REGENECARE) 2 % 05/29/20 20 Active ondansetron, disintegrating , (ZOFRAN ODT) 4 MG tablet Take 1 (one) tablet by mouth every 8 hours as needed for Nausea/Vomiting Allow tablet to dissolve on the tongue 12 tablet 12/21/19 21 Active gabapentin (Neurontin) 300 MG capsule Take 3 (three) capsules by mouth 4 times daily Active Acetaminophen Extra Strength 500 MG tablet Take 2 (two) tablets by mouth every 6 hours as needed For pain. 02/22/20 22 Active Multiple Vitamins-Roosevelt als (Thera-M) TABS Take 1 (one) tablet by mouth once daily Active cyclobenzaprin e (Flexeril) 5 MG tablet Take 1 (one) tablet by mouth 3 times daily as needed (spasms) 90 tablet 2 09/19/19 23 Active Nystop 406497 UNIT/GM powder Apply to affected area 2 times daily as needed 12/11/19 23 Active furosemide (Lasix) 20 MG tablet Take 1 (one) tablet by mouth once daily Active ascorbic acid (Vitamin C) 500 MG tablet Take 1 (one) tablet by mouth once daily 100 tablet 03/25/20 23 Active sulfamethoxazo le-trimethopri m (Bactrim DS; Septra DS) 800-160 MG tabletIndicati ons:Urinary Tract Infection Take 1 (one) tablet by mouth every 12 hours Reasons: Urinary Tract Infection 7 tablet 05/07/20 23 Active oxyCODONE, immediate release, (Roxicodone) 5 MG tabletIndicati ons:Chronic Pain Take 1 (one) tablet by mouth every 6 hours as needed for Pain Reasons: Chronic Pain 30 tablet 06/03/20 23 Active rOPINIRole (Requip) 1 MG tabletIndicati ons:Restless legs syndrome (RLS) Take 1 (one) tablet by mouth as directed TAKE ONE TAB AT SUPPER AND ONE TABLETS AT BEDTIME FOR RESTLESS LEG SYNDROME 180 tablet 1 10/01/19 25 Active zolpidem (Ambien) 5 MG tablet Take 1 (one) tablet by mouth nightly as needed FOR INSOMNIA 30 tablet 5 10/01/19 25 Active ALPRAZolam (XANAX) 0.25 MG tabletIndicati ons:Anxiety Take 1 tablet by mouth 3 times daily as needed for Anxiety 90 tablet 1 08/19/19 20 025 Discontinu ed(Discont inued by Another Clinician) melatonin 5 MG tablet Take one tab approximately 2 hours prior to intended bedtime. 03/25/20 23 025 Discontinu ed(Clinica l Kailash) zolpidem (Ambien) 5 MG tablet Take 1 (one) tablet by mouth nightly as needed FOR INSOMNIA 30 tablet 5 03/17/20 24 025 Discontinu ed(Reorder ) rOPINIRole (Requip) 1 MG tabletIndicati ons:Restless legs syndrome (RLS) Take 1 (one) tablet by mouth as directed TAKE ONE TAB AT SUPPER AND ONE TABLETS AT BEDTIME FOR RESTLESS LEG SYNDROME 180 tablet 07/28/19 25 025 Discontinu ed(Reorder ) Active Problems Problem Noted Date Diagnosed Date [...] Encounters Date Type Department Care Team Description 09/30/2024 8:15 AM CDT Video Visit [facility] - Pulmonology [address] [place] [address] Cresencio Ghosh MD YAJAIRA on CPAP ; PLMD (periodic limb movement disorder); Restless legs syndrome (RLS); Malaise and fatigue; Hypertension, unspecified type; Insomnia due to medical condition; Circadian rhythm sleep disorder, irregular sleep wake type 09/29/2024 Refill [facility] - Pulmonology [address] [place] [address] Cresencio Ghosh MD Refill Request 08/24/2024 12:05 PM FORMULA CHECKER - 08/24/2024 11:59 PM FORMULA CHECKER Hospital Encounter [facility] [address] [place] [address] Panchito Walters, DO Discharge Disposition: Home or Self Care 08/24/2024 Travel 08/23/2024 2:04 PM FORMULA CHECKER - 08/23/2024 11:59 PM FORMULA CHECKER Hospital Encounter [facility] MRI [address] [place] [address] Panchito Walters, DO Discharge Disposition: Home or Self Care 08/23/2024 Travel 07/28/2024 Refill [facility] - Pulmonology [address] [place] [address], [address] [place] [address] Cresencio Ghosh MD Refill Request from Last 3 Months Immunizations Immunization Administration Dates Next Due INFLUENZA VACCINE 05/15/2022,05/06/2018,04/30/20 [...] care, and heating? Not very hard 04/02/2023 [facility] [place] [facility] Occupat [facility] - Occupational Stress [...] slept in a half-way (including now)? No 04/02/2023 Comments No Sex and Gender Information Value Date Recorded Sex Assigned at Not on file Legal Sex Female 6:02 AM FORMULA CHECKER Gender Identity Not on file Sexual Orientation Not on file Occupation Industry Job Start Date Job End Date Disabled Not on file Not on file Not on file Last Filed Vital Signs Vital Sign Reading Time Taken Comments Blood Pressure 157/91 05/07/2023 9:23 AM FORMULA CHECKER Pulse 86 05/07/2023 9:23 AM FORMULA CHECKER Temperature 36.3 C (97.3 F) 05/07/2023 9:23 AM FORMULA CHECKER Respiratory Rate 18 04/02/2023 3:00 PM CDT Oxygen Saturation 95% 05/07/2023 9:23 AM FORMULA CHECKER Inhaled Oxygen Concentration 97% 02/21/2021 1 0:15 AM CDT Weight 99.8 kg (220 lb) 09/30/2024 8:15 AM CDT Height 172.7 cm (5' 8 ) 09/30/2024 8:15 AM CDT Body Mass Index 33.45 09/30/2024 8:15 AM CDT Plan of Treatment Health Maintenance Due Date Last Done Comments COLOGUARD (AGES 45-75) - COLON CA SCREENING 1966 CT COLONOGRAPHY - COLON CA SCREENING 1966 FIT - COLON CA SCREENING 1966 FLEX SIG - COLON CA SCREENING 1966 HIV SCREENING 1981 DTAP/TDAP/TD VACCINES (1 - Tdap) 1985 HEPATITIS B VACCINE (1 of 3 - 19+ 3-dose series) 1985 PNEUMOCOCCAL VACCINE 50+ (1 of 2 - PCV) 1985 ZOSTER VACCINE (1 of 2) 2016 MAMMOGRAM 09/19/2019 09/18/2017 COVID-19 VACCINE ( - season) 2024 07/01/2021, 12/13/2020, 11/20/2020 DEPRESSION SCREENING 06/30/2024 MEDICARE AWV CALENDAR YEAR 2024 02/25/2020, 09/10/2017 COLON MONITORING 11/28/2024 11/29/2019, 09/2019, 08/03/2019 Colorectal Cancer Screening 11/28/2024 INFLUENZA VACCINE (Season Ended) 2025 05/15/2022, 07/01/2021, 03/22/2020, Additional history exists SCREENING FOR DIABETES 04/02/2026 , 04/01/2023, 03/31/2023, Additional history exists COLONOSCOPY - COLON CA SCREENING 11/28/2029 11/29/2019, 11/29/2019, 08/03/2019, Additional history exists HEPATITIS C SCREENING Completed 07/03/2020 HIB VACCINE Aged Out No longer eligi ble based on patient's age to complete this topic HPV VACCINE Aged Out No longer eligi ble based on patient's age to complete this topic MENINGOCOCCAL (Group B) VACCINE SHARED DECISION-MAKING Aged Out No longer eligible based on patient's age to complete this topic MENINGOCOCCAL GROUPS A/C/Y/W VACCINE Aged Out No longer eligible based on patient's age to complete this topic Goals Goal Patient Goal Type Associated Problems Recent Progress Patient-Stated? Author Blood Pressure < 140/90 Blood Pressure 157/91(2022 9:23 AM FORMULA CHECKER) No Sierra Steiner Yearly PCP visit Lifestyle No White, Ava A Have labs drawn Lifestyle No White, Ava A Take recommended medication(s) Lifestyle No White, Ava A Use safety retraint in car Lifestyle No White, Ava A Complete Health Maintenance Screenings Lifestyle No White, Ava A Medical Devices Implanted Type Area Prenatal Teacher Device Identifier Shelf Expiration Date Model / Serial / Lot Nevro Neurostimulator Senza [id number] (Implanted 2016) Floseal Hemostatic Matrix Implanted:Qty: 1 on 04/02/2019 by Maicol Mcneil DO at [facility] N/A: Spine [employer] 08/10/2020 [id number] / / [id number] Graft Tissue Drgn + Bvn Clgn Mtrx 1x1in Implanted:Qty: 1 on 04/02/2019 by Maicol Mcneil DO at [facility] N/A: Spine [employer] 04/29/2021 [id number] / / [id number] Seal Tisseel Prima 1 Prefil Frz 4ml - [id number] Implanted:Qty: 1 on 04/02/2019 by Maicol Mcneil DO at [facility] N/A: Spine [employer] 08/27/2020 [id number] / [id number] / [id number] Impl Inj 1ml Coaptite Syr Bulk Agnt Implanted:Qty: 2 on 04/11/2020 by Dave Aparicio MD at [facility] N/A: Bladder [employer] 10/25/2022 [id number] / / [id number] Impl Inj 1ml Coaptite Syr Bulk Agnt Implanted:Qty: 2 on 02/05/2022 by Dave Aparicio MD at [facility] Bladder [employer] [employer] 10/16/2024 [id number] / / [id number] Stent Uret 7fr 80cm Str Cls Tip Llok Implanted:Qty: 1 on 09/03/2022 by Nel Cerna DO at [facility] Ureter [employer] 12/23/2025 [id number] / / [id number] Description:bilateral ureter s Procedures Procedure Name Priority Date/Time Associated Diagnosis Comments MRI ABDOMEN WWO CONTRAST Routine 08/24/2024 1:52 PM FORMULA CHECKER Cyst of pancreas Splenomegaly, not elsewhere classified BASIC METABOLIC PANEL (CALCIUM TOTAL) Routine 04/02/2023 2:31 AM CDT ENDOSCOPY, COLON, SCREENING Routine 11/29/2019 MAMMO BILAT SCREENING Routine 09/18/2017 9:53 AM CDT Encounter for screening for malignant neoplasm of breast from Last 3 Months or Most Recently Relevant to Health Maintenance Results * MRI Abdomen Wwo Contrast (08/24/2024 1:52 PM FORMULA CHECKER) Anatomical Region Laterality Modality Abdomen Magnetic Resonan ce 08/24/2024 3:05 PM FORMULA CHECKER Impressions 08/24/2024 4:53 PM FORMULA CHECKER Impression: 1.Multiple cysts throughout the pancreas, some of them about pancreatic duct, measuring up to 1.3 cm in the pancreatic tail, likely intraductal papillary mucinous neoplasm (IPMNs). Recommend follow-up with MRI/MRCP in one year per ACR guidelines. 2.Moderate hepatic steatosis and splenomegaly. 3.Mild right hydroureteronephrosis and mild ureteral wall enhancement bilaterally. Clinical correlation for pyelitis/ureteritis is recommended. The report was drafted by Pal Hirsch MD (vice president consulting services) ISarbjit MD have personally reviewed and interpreted this examination/study. > Interpreting Provider: Sarbjit Hardwick MD on 08/24/2024 4:53 PM Narrative 08/24/2024 4:53 PM FORMULA CHECKER PROCEDURE: MRI ABDOMEN WWO CONTRAST, DATE/TIME OF EXAM: 08/24/2024 1:52 PM, LOCATION [facility] INDICATION: K86.2: Cyst of pancreas (HCC) R16.1: Splenomegaly, not elsewhere classified COMPARISON: CT abdomen and pelvis from 03/30/2023. TECHNIQUE: MRI of the abdomen was performed prior to and following the uneventful administration of 19 mL of Multihance intravenous gadolinium contrast according to standard protocol. Findings: Lower Chest: Normal. Hepatobiliary system Liver morphology: Normal size with smooth surface contour. Steatosis: There is moderate diffuse hepatic steatosis. Varices: None. Spleen: Enlarged, measuring 14.5 cm.. Ascites: None. Focal liver observations No arterially enhancing observations concerning for hepatocellular carcinoma. Hepatic vasculature Portal and hepatic veins: Patent. Arterial anatomy: Conventional. Gallbladder and bile ducts Gallbladder: Absent. Bile ducts: Nondilated. Retroperitoneum Pancreas: There are multiple cysts are noted in the pancreas, some of them about pancreatic duct, the largest one is 1.3 cm in the pancreatic tail (series 3 image 19). Adrenals: Normal. Kidneys: Scattered renal cysts bilaterally. Mild right hydroureteronephrosis and mild ureteral wall enhancement bilaterally. Lymph nodes: Few subcentimeter portacaval and periportal lymph nodes are seen. Gastrointestinal: Postsurgical changes of bowel loops with an ileal conduit. Other findings: Posterior spinal fusion hardware is noted in the lumbar spine. Procedure Note Lainey Hardwick MD - 08/24/2024 PROCEDURE: MRI ABDOMEN WWO CONTRAST, DATE/TIME OF EXAM: 08/24/2024 1:52 PM, LOCATION [facility] INDICATION: K86.2: Cyst of pancreas (HCC) R16.1: Splenomegaly, not elsewhere classified COMPARISON: CT abdomen and pelvis from 03/30/2023. TECHNIQUE: MRI of the abdomen was performed prior to and following the uneventful administration of 19 mL of Multihance intravenous gadolinium contrast according to standard protocol. Findings: Lower Chest: Normal. Hepatobiliary system Liver morphology: Normal size with smooth surface contour. Steatosis: There is moderate diffuse hepatic steatosis. Varices: None. Spleen: Enlarged, measuring 14.5 cm.. Ascites: None. Focal liver observations No arterially enhancing observations concerning for hepatocellular carcinoma. Hepatic vasculature Portal and hepatic veins: Patent. Arterial anatomy: Conventional. Gallbladder and bile ducts Gallbladder: Absent. Bile ducts: Nondilated. Retroperitoneum Pancreas: There are multiple cysts are noted in the pancreas, some ofthem about pancreatic duct, the largest one is 1.3 cm in the pancreatic tail (series 3 image 19). Adrenals: Normal. Kidneys: Scattered renal cysts bilaterally. Mild right hydroureteronephrosis and mild ureteral wall enhancement bilaterally. Lymph nodes: Few subcentimeter portacaval and periportal lymph nodes are seen. Gastrointestinal: Postsurgical changes of bowel loops with an ileal conduit. Other findings: Posterior spinal fusion hardware is noted in the lumbar spine. Impression: 1.Multiple cysts throughout the pancreas, some of them about pancreatic duct, measuring up to 1.3 cm in the pancreatic tail, likely intraductal papillary mucinous neoplasm (IPMNs). Recommend follow-up with MRI/MRCPin one year per ACR guidelines. 2.Moderate hepatic steatosis and splenomegaly. 3.Mild right hydroureteronephrosis and mild ureteral wall enhancement bilaterally. Clinical correlation for pyelitis/ureteritis isrecommended. The report was drafted by Pal Hirsch MD (vice president consulting services) ISarbjit MD have personally reviewed and interpreted this examination/study. > Interpreting Provider: Sarbjit Hardwick MD on 08/24/2024 4:53 PM us Panchito Walters DO MR ORDERABLES Final Result * (ABNORMAL) BASIC METABOLIC PANEL (CALCIUM TOTAL) (04/02/2023 2:31 AM CDT) BUN 16 7 - 26 mg/dL 04/02/2023 3:07 AM [facility] Creatinine 0.69 0.56 - 0.96 mg/dL 04/02/2023 3:07 AM [facility] Sodium 133(L) 136 - 145 mmol/L 04/02/2023 3:07 AM [facility] Potassium 3.9 3.5 - 4.5 mmol/L 04/02/2023 3:07 AM [facility] Chloride 102 98 - 107 mmol/L 04/02/2023 3:07 AM [facility] CO2 26 22 - 29 mmol/L 04/02/2023 3:07 AM [facility] Glucose 122(H) 70 - 115 mg/dL 04/02/2023 3:07 AM CDT [facility] Calcium 8.3(L) 8.4 - 10.2 mg/dL 04/02/2023 3:07 AM [facility] Anion Gap 5(L) 6 - 16 04/02/2023 3:07 AM [facility] BUN/Creatinine Ratio 23 7 - 23 04/02/2023 3:07 AM T [facility] Osmolality Calculated 278 275 - 295 mOsm/kg 04/02/2023 3:07 AM [facility] eGFR by CKD-EPI >90 >=90 mL/min/1.7 3 m2 04/02/2023 3:07 AM [facility] Blood BLOOD SPECIMEN / Unknown Lab Venipuncture / Unknown 04/02/2023 2:31 AM CDT 04/02/2023 2:39 AM CDT us Missy Sutherland MD LAB - CHEMISTRY ORDERABLES Final Result Performing Organization Address City/State/[facility] Co de Phone Number [facility] [address] [place] [id number], [facility] [phone] * ENDOSCOPY, COLON, SCREENING (11/29/2019) us Provider Unknown GI PROCEDURE ORDERABLES Final R esult * MAMMO BILAT SCREENING (09/18/2017 9:53 AM CDT) Anatomical Region Laterality Modality Breast Bilateral Mammography 09/23/2017 9:20 AM CDT Impressions 09/23/2017 9:22 AM CDT No mammographic evidence of malignancy in either breast. ASSESSMENT: BIRADS Category 2: Benign finding(s). RECOMMENDATION: Bilateral screening mammogram in one year. Thank you for allowing us to participate in the care of your patient. [facility] utilizes [facility] [facility] as a reminder system to notify patients of their next recommended mammogram. Narrative 09/23/2017 9:22 AM CDT EXAMINATION: Digital screening mammogram on 09/18/2017. Low-dose full-field digital breast tomosynthesis examination was performed with synthetic 2D images and 3D acquisitions. Computer assisted detection was utilized. PRIOR: Mammogram from [facility] on 11/13/2004. BREAST PARENCHYMAL DENSITY: The breasts are almost entirely fatty. RISK ASSESSMENT CALCULATION: Based on the information provided by your patient, her lifetime risk of breast cancer is average (<15%). Additional quantitative risk model data and patient history details have been scanned as a document/letter in [facility] electronic medical record (media tab). Please note this information is only as accurate as the data entered by the patient. FINDINGS: No suspicious masses, areas of architectural distortion or microcalcifications are evident on synthetic 2D mammogram or tomosynthesis images. Postsurgical changes are seen in both breasts. us Shilpa Frazier DO MAMMO ORDERABLES Final Res ult from Last 3 Months or Most Recently Relevant to Health Maintenance Additional Health Concerns Infection Onset Date Last Indicated MRSA Hx 09/04/2022 09/04/2022 MDRO Hx 04/01/2023 04/01/2023 MDRO 05/08/2023 05/08/2023 Insurance [employer] [facility] MANAGED MEDICARE ADV [facility] MANAGED MEDICARE ADV Advance Directives Documents on File Type Date Recorded Patient Silk Screen Repairer Expl anation Adv Directive/Living Will/POA 09/16/2022 3:23 [...] 4:01 AM 05/11/2020 8:00 PM Care Teams Bottling Line Attendant Relationship Specialty Start Date End Date Iron Galindo PA-C [address] [address] [address] [place] [address] PCP - General Physician Dye Maker 02/12/23 Lidia Barajas MD [address] [place] [address], [phone] Anesthesiology-Pain Management 06/03/19 Shilpa Gandhi MD [address] [place], [place] [address] [place] [id number] Oncology 06/03/19 Cresencio Ghosh MD [address] [place] [address] [place] [address] Sleep Medicine 09/29/24
--- OUTSIDE RECORDS SUMMARY | 2024-10-18 12:22 | XMS_ITS | Clinical Summary ---
Author Organization [facility] Address [address] [place] [address] Phone Care Team Providers Care Clinic Licensed Practical Nurse Name Role Phone Unavailable Primary Care Provider Unavailabl e Social History Tobacco Use Types Packs/Day Years Used Date Smoking Tobacco: Never Assessed Comments Unknown Sex and Gender Information Value Date Recorded Sex Assigned at Not on file Legal Sex Female 3:52 AM [employer] CO[employer] Gender Identity Not on file Sexual Orientation [...]
--- OUTSIDE RECORDS SUMMARY | 2024-10-18 12:22 | XMS_ITS | Continuity of Care Document ---
Author Organization [facility] Address [address] [place] [address] Phone Care Team Providers Care Misdraw Hand Name Role Phone Denys Enrique MD Unavailable [...] tient visit,est, mod [facility], [address], [place], [place], [id number], [place] tel:[phone] [facility] r knee (chief complaint) Pain in right knee 4 Klaus Mcfarlane. [address] [place] [address], [place], [place], [id number], [place]. tel:[phone] Referring Provider: Martin Medina, [address] [place] [address] Suite [facility], [place], [address]. tel:[phone] [facility], [address] [place] [address], [id number], [place] tel:[phone] [facility] Pain in left shoulder Aug- 2 Klaus Denys. [address] [place] [address], [place], [place], [id number], [place]. tel:[phone] [facility]outpa tient visit,[facility], [address] [place] [address], [id number], [place] tel:[phone] [facility] fell Out Of Wheelchair And Shived Both Shoulders (chief complaint) Pain in left shoulderPain in right shoulder Aug- 2 Klaus Mcfarlane. [address] [place] [address], [place], [place], [id number], [place]. tel:[phone] Referring Provider: Martin Medina, [address] [place] [address] Suite [facility], [place], [address]. tel:[phone] Office/outpa tient visit,[facility], [address] [place] [address], [id number], [place] tel:[phone] [facility] No Information Sep-2 0 No Information Referring Provider: Martin Medina, [address] [place] [address] Suite [facility], [place], [address]. tel:[phone] Family History Family Member Type Diagnosis Age At Onset Mother Problem (finding) Heart Disease Brother Problem (finding) Depression Mother Problem (finding) Cancer, unknown Mother Problem (finding) Depression Brother Problem (finding) Hypertension Father Problem (finding) Cancer, unknown Mother Problem (finding) Hypertension Father Problem (finding) Hypertension Father Problem (finding) Depression Payers Payer name Insurance type Covered republican ID Authorcorya tirayna(s) No Information Social History Type Description Quantity [...]
--- OUTSIDE RECORDS SUMMARY | 2024-10-18 12:22 | XMS_ITS | Encounter Summary ---
Author Organization [facility] Address [address] [place] [address] Care Team Providers Care Compressor Repairer Name Role Phone Fiordaliza Snell MD Primary Care Provider Encounter Details Date Type Department Care Team (Late st Contact Info) Description 04/18/2003 Outpatient Historical [facility] Otilia Florentino MD [facility] [place] [address] Er, Authorized P NO ADDRESS ON FILE ABDOMINAL PAIN RLQ (Primary Dx) Social History Tobacco Use Types Packs/Day Years Used Date Smoking Tobacco: Never Assessed Comments Unknown Sex and Gender Information Value Date Recorded Sex Assigned at Not on file Legal Sex Female 2:43 AM [employer] DEVELOPER Gender Identity Not on file Sexual Orientation Not on file documented as of this encounter Plan of Treatment Not on file documented as of this encounter Visit Diagnoses Diagnosis Abdominal pain, right lower quadrant- Primary documented in this encounter Additional Health Concerns Infection Onset Date Last Indicated Resolved Time R/O COVID-19 07/02/2020 07/02/2020 07/02/2020 8:53 PM [employer] DEVELOPER MRSA Comment:Resolved per Type and Duration of Precautions Recommended for Selected Infections and Conditions document 2023 update 07/02/2020 07/02/2020 03/16/20 24 10:58 AM CDT R/O COVID-19 07/10/2020 07/10/2020 07/10/2020 5:01 PM [employer] DEVELOPER documented as of this encounter Care Teams Compressor Repairer Relationship Specialty Start Date End Date Fiordaliza Snell MD PCP - General Family Practice 09/09/22 documented as of this encounter
--- OUTSIDE RECORDS SUMMARY | 2024-10-18 12:23 | XMS_ITS | Clinical Summary ---
Author Organization [facility] al Address [address] [place] [address] Care Team Providers Care Research And Evaluation Analyst Name Role Phone Lidia Barajas MD Unavailable [...] for pain 42 tablet 2 Active multivit xakocdux-xcdb-HD-c alcium (THERA-M) 9 mg iron-400 mcg tabletIndications: [...] (10/24/2021): Added automatically from request for surgery [id number] Postlaminectomy syndrome, lumbar region 10/25/19 Overview (10/24/2021): Added automatically from request for surgery [id number] Assessment & Plan (07/03/2022 3:48 PM TUNE UP MECHANIC): Ms. Mcnulty is doing well following lumbar [...] (10/24/2021): Added automatically from request for surgery [id number] Other chest pain 01/19/2020 Assessment & Plan [...] asso ciated with catheterization of urinary tract 11/16/2019 Neurogenic bladder 11/16/2019 Assessment & Plan [...] need for exchange this admission Suprapubic catheter ([facility]) 11/16/2019 Essential hypertension 11/16/2019 Hypertensive urgency 11/16/2019 [...] (11/25/2019): Added automatically from request for surgery [id number] Chronic lumbar radiculopathy 01/21/2019 Chronic back pain 01/21/2019 Spinal stenosis of lumbar region with radiculopa thy 12/04/2018 Assessment & Plan (07/18/2021 10:23 AM TUNE UP MECHANIC): Assessment Healed fusion L2-5 severe retrolisthesis with [...] (06/18/2018): Added automatically from request for surgery [id number] Assessment & Plan (12/04/2018 3:42 PM CDT): Healing fusion C6-7 Continued observation. Assessment & Plan (08/12/2018 10:35 AM TUNE UP MECHANIC): Assessment Healing fusion C6-7 Plan Talked about do's and don'ts she is still to maintain her initial restrictions and return in 6 weeks for an x-ray Assessment & Plan (06/25/2018 2:43 PM TUNE UP MECHANIC): Angelina was recently hospitalized at 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 Intractable pain Acute bilateral low back pain without sciatica Vestibular dysfunction Assessment & Plan (12/29/2021 1:14 PM CDT): Meclizine prn Can do vestibular therapy if returns Immunizations Immunization Administration Dates Next Due Influenza, Quadrivalent, Spl [...] ed albuterol for 2 years Osteophyte, 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 More than 4 times per year 03/07/2022 Do you belong to any clubs o r organizations such as religion groups, unions, fraternal or athletic groups, or [...] No 03/07/2022 Housing Stability Vital Sign Answer Rohna e Recorded In the last 12 months, [...] slept in a assisted (including now)? No 03/07/2022 Comments No Sex and Gender Information Value Date Recorded Sex Assigned at Not on file Legal Sex Female 11:49 PM TUNE UP MECHANIC Gender Identity Not on file Sexual Orientation Not on file Obstetrics History Last Filed Vital Signs Vital Sign Reading Time Taken Comments Blood Pressure 147/95 03/08/2022 3:55 PM CDT Pulse 88 03/08/2022 3:55 PM CDT Temperature 37.3 C (99.1 F) 03/08/2022 3:55 PM CDT Respiratory Rate 16 03/08/2022 8:45 AM CDT [...] season) 2024 07/01/2021, 12/13/2020, 11/20/2020 Influenza Vaccine (Season Ended) 2025 05/15/2022, 07/01/2021, 03/22/2020, Additional history exists Colon Cancer Screening-Colonoscopy 11/28/2029 11/29/2019 Hepatitis C Screening Completed 11/17/2019 Colon Cancer Screening-CT Colonography Discontinued 11/29/2019 Colon Cancer Screening-DNA Stool Discontinued 11/29/19 Colon Cancer Screening-FIT Discontinued 11/29/2019 Colon Cancer Screening-Sigmoidoscopy Discontinued 11/29/2019 Goals Goal Patient Goal Type Associated Problems Recent Progress Patient-Stated? Author CCM Chronic Pain Care Plan Chronic Care Management Worsening( 10:12 AM TUNE UP MECHANIC) Milvia Mireles RN Note: Problem: Chronic Pain Goals: 1. Minimize further functional decline 2. Maximize quality of life 3. Control pain Strategies: - Activity/exercise program recommendation - Conservative stepwise pain medicine strategy with multi-disciplinary approach - Recommend healthy lifestyle strategies and compensatory methods as needed Medical Devices Implanted Type Area Certified Novell Engineer Device Identifier Shelf Expiration Date Model / Serial / Lot Spinal Cord Stimulator-2016 Implanted:01/28 (Quantity not on file) Spinal Cord Stimulator Left: Hip Nevro Spinal Cord Stimulation System [id number] / / Description:Closed Bore only 1.5T or [...] ensure it has returned to pre-MRI settings. Cer[employer]ics Inc 700-025 I Factor Allograft Putty Syringe Graft 2.5cc Bone - [id number] Implanted:Qty: 1 on 07/03/2018 by Zachary Rothman MD at [facility] N/A: Spine Cervical [employer] Inc 03/29/2021 700-025 / / [id number] Plate 1-Level 14 Mm Cervical - [id number] Implanted:Qty: 1 on 07/03/2018 by Zachary Rothman MD at [facility] N/A: Spine Cervical [employer]c 30-0114 / / Screw 4.0x14mm Self Drilling Variable - [id number] Implanted:Qty: 4 on 07/03/2018 by Zachary Rothman MD at [facility] N/A: Spine Cervical [employer]c 31-4014 / / Cage Spinal [id number] 7 Degree Porous Coated Latex Free - [id number] Implanted:Qty: 1 on 07/03/2018 by Zachary Rothman MD at [facility] N/A: Spine Cervical Spinal Elements [id number] / / Depuy Synthes Spine [id number] Substitute Bone Graft Fibergraft Gps Medium Putty 6cc - [id number] Implanted:Qty: 1 on 11/29/2021 by Dave Louis MD at [facility] N/A: Lumbar-Sa cral Spine Depuy Synthes Spine [id number] 10/18/2023 [id number] / / [id number] B[employer] Inc Osteosponge Allograft Chips Radiolucent Thk4-10mm Graft 30cc Bone [id number] - [id number] - [id number] Implanted:Qty: 1 on 11/29/2021 by Dave Louis MD at [facility] N/A: Lumbar-Sa cral Spine [employer] 10/14/2024 [id number] / [id number] / Depuy Synthes Spine Cage Post Spinal 4d Plif Ti [id number] - [id number] Implanted:Qty: 1 on 11/29/2021 by Dave Louis MD at [facility] N/A: Lumbar-Sa cral Spine Depuy Synthes Spine [id number] 07/30/2024 [id number] / / [id number] Depuy Synthes Spine Expedium 5.5mm 80mm Line Prebent Rodney Spinal Titanium Nonsterile [id number] - [id number] Implanted:Qty: 1 on 11/29/2021 by Dave Louis MD at [facility] N/A: Lumbar-Sa cral Spine Depuy Synthes Spine [id number] / / Depuy Synthes Spine Expedium 5.5mm 85mm Line Prebent Rodney Spinal Titanium Nonsterile [id number] - [id number] Implanted:Qty: 1 on 11/29/2021 by Dave Louis MD at [facility] N/A: Lumbar-Sa cral Spine Depuy Synthes Spine [id number] / / Depuy Synthes Spine Expedium 5.5mm 45mm Polyaxial Spine Screw Bone Titanium 5.5mm Rodney [id number] - [id number] Implanted:Qty: 2 on 11/29/2021 by Dave Louis MD at [facility] N/A: Lumbar-Sa cral Spine Depuy Synthes Spine [id number] / / Depuy Synthes Spine Expedium 6.5mm 45mm Polyaxial Spine Screw Bone Titanium 5.5mm Rodney [id number] - [id number] Implanted:Qty: 3 on 11/29/2021 by Dave Louis MD at [facility] N/A: Lumbar-Sa cral Spine Depuy Synthes Spine [id number] / / Depuy Synthes Spine Expedium 1 Inner Monoaxial Spine Screw Set Titanium [id number] - [id number] Implanted:Qty: 6 on 11/29/2021 by Dave Louis MD at [facility] N/A: Lumbar-Sa cral Spine Depuy Synthes Spine [id number] / / Depuy Synthes Spine Expedium 7mm 45mm 1 Innie Polyaxial Spine Screw Bone Titanium [id number] - [id number] Implanted:Qty: 1 on 11/29/2021 by Dave Louis MD at [facility] N/A: Lumbar-Sa cral Spine Depuy Synthes Spine [id number] / / Procedures Procedure Name Priority Date/Time [...] 11/29/2019 8:04 AM Admit Type: Inpatient Room: [facility] Date of : 1965 Instrument Name: -[id number] [...] the bowel preparation was evaluated usingthe BBPS ([place] Bowel Preparation Scale) with scores of: Right [...] AM CDT) Hep A IgM Non[facility] Comment: Interpretive Data: If Hep A IgM Ab is reported as Equivocal, a new sample should be drawn in two weeks for testing. Current interpretive data was last revised on 19. Hep B core IgM Nonreactive Nonreactive [facility] Comment: Interpretive Data If HepB Core IgM Ab is reported as Equivocal, a new sample should be drawn in two weeks for testing. Current interpretive data was last revised on 19. Hep C Ab Nonreactive Nonreactive [facility] Comment: Interpretive Data Nonreactive: Antibodies to HCV not detected. Does NOT exclude the possibility of recent exposure to HCV. Equivocal: Equivocal for HCV antibodies. Supplemental molecular testing will be automatically performed to determine infection status in accordance with current CDC screening recommendations. Reactive: Positive for HCV antibodies. This may represent current or past HCV infection. Supplemental molecular testing will be automatically performed to determine current infection status in accordance with current CDC screening recommendations. Interpretive data was last revised on 2019. HepBsAg Nonreactive Nonreactive [facility] Blood specimen (specimen) 11/17/2019 4:13 AM CDT 11/17/2019 4:31 AM CDT [facility] MICROBIOLOGY - GENERAL ORDERABLES Final Result [facility] [address] Department [place] [address] from Last 3 Months or Most Recently Relevant to Health Maintenance Insurance UHC MEDICARE ADVANTAGE [facility] MEDICARE [id number] [place] [address] MEDICARE UHC MEDICARE ADVANTAGE Advance Directives For more information, please contact: [phone] Documents on File Type Date Recorded Patient Business Department Chair Expl anation Power of Global Sourcing Manager 11/29/2021 11:46 AM * Full Code (Latest [...] First Alternate Health Care Agent Care Teams Research And Evaluation Analyst Relationship Specialty Start Date End Date Ab Melara MD [address] [address] PCP - General Family Medicine 07/16/21 Lidia Barajas MD Anesthesiologist Anesthesiology 01/13/20
--- OUTSIDE RECORDS SUMMARY | 2024-10-18 12:23 | XMS_ITS | Encounter Summary ---
Author Organization [facility] Health Address [address] [place] [address] Care Team Providers Care Performance Test Consultant Name Role Phone Shilpa Frazier DO Primary Care Provider [phone] Lidia Barajas MD Unavailable Shilpa Gandhi MD Unavailable Massiel Melara MD Primary Care Provider [phone] Shilpa Frazier DO Primary Care Provider [phone] Iron Galindo PA-C Primary Care Provide r Cresencio Ghosh MD Unavailable [phone] Cresencio Ghosh MD Unavailable [phone] Encounter Details Date Type Department Care Team (Late st Contact Info) Description 01/23/2015 Therapy Visit EXTERNAL NON-[facility] DEPT Sunny Reynoso MD [address] [place] [id number] Social History Tobacco Use Types Packs/Day Years Used Date Smoking Tobacco: Never Alcohol Use Standard Drinks/Week Comments Yes 0 (1 standard drink = 0.6 oz pur e alcohol) 1-2 year Comments Unknown Sex and Gender Information Value Date Recorded Sex Assigned at Not on file Legal Sex Female 6:02 AM SUBMARINE CABLE EQUIPMENT TECHNICIAN Gender Identity Not on file Sexual [...] NO NEED FOR ISOLATION AT THIS TIME; SPACE OFFICER INF PREV [id number] 10/07/2019 10/07/2019 09/05/19 8:37 AM SUBMARINE CABLE EQUIPMENT TECHNICIAN MRSA 10/07/2019 10/07/2019 01/29/2020 8:33 AM CDT MRSA 01/28/2020 01/28/2020 03/20/2020 7:45 AM CDT COVID-19 Under Investigation 04/06/2020 04/08/2020 04/09/2020 5:20 AM CDT MRSA 04/11/2020 04/11/2020 12/25/2020 9:00 AM CDT COVID-19 Under Investigation 08/07/2020 08/07/2020 08/08/2020 3:45 PM SUBMARINE CABLE EQUIPMENT TECHNICIAN COVID-19 Under Investigation 08/11/2020 08/11/2020 08/12/2020 4:08 AM SUBMARINE CABLE EQUIPMENT TECHNICIAN MRSA 05/13/2021 02/05/2022 09/04/2022 8:37 AM SUBMARINE CABLE EQUIPMENT TECHNICIAN MRSA Hx 09/04/2022 09/04/2022 MDRO Comment:04/01/23 MDRO resolved, ES 02/23/2023 02/23/20232022 7:16 AM CDT MDRO Hx 04/01/2023 04/01/2023 MDRO 05/08/2023 05/08/2023 documented as of this encounter Care Teams Performance Test Consultant Relationship Specialty Start Date End Date Shilpa Frazier DO [address] [place], [place] [phone] PCP - General Family Medicine 08/06/17 07/31/20 Massiel Melara MD [address] [address] PCP - General Family Medicine 08/01/20 10/01/20 Shilpa Frazier DO [address] [place] [phone] PCP - General Family Medicine 10/02/20 10/03/20 Iron Galindo PA-C [address] [facility] [address] [place], [place] [id number] PCP - General Physician Academic Vice President 02/12/23 Cresencio Ghosh MD [address] [place] [phone] PCP - [facility] P4P 12/29/23 09/14/24 Lidia Barajas MD [address] [facility], [address] Anesthesiology-Pain Management 06/03/19 Shilpa Gandhi MD [address] [facility] [address] [place] [id number] Oncology 06/03/19 Cresencio Ghosh MD [address] [place] [phone] Sleep Medicine 09/29/24 documented as of this encounter
--- OUTSIDE RECORDS SUMMARY | 2024-10-18 12:23 | XMS_ITS ---
Author Organization [facility] Address [address] [place] [address] Care Team Providers Care Pump Installer Name Role Phone zzzzMigration, zzzzProvider Unavailable Unav ailable REASON FOR VISIT EMR-Theodore Encounters Encounter Location Date Provider Diagnosis [facility] [address] [place] [address] 04/19/2023 zzzzProvider zzzzMigration Plan Of Treatment No Information Progress Notes * Angelina MOYA FDOB: [birth year] (58 yo F)Acc No.[id number]:04/19/2023 Patient: Angelina WEI :1965 A ge:57 Y S ex:Female Address:[facility] [address] [facility] [address] Subjective: * Chief Complaints: * E MR-Theodore * Medical History: * Surgical History: * Hospitalization/Major Diagno stic Procedure: * Medications: Objective: * Vitals: * Physical Examination: Assessment: Plan: * Treatment: * Procedure Codes: * true * Date: Generated for Printi ng/Faxing/eTransmitting on: 0 10/18/2024 12:22 PM CDT
--- OUTSIDE RECORDS SUMMARY | 2024-10-18 12:23 | XMS_ITS | Referral Summary ---
Author Organization [facility] al Address [address] [place] [address] Care Team Providers Care Cleaning Validation Consultant Name Role Phone Lidia Barajas MD [...] for pain 42 tablet 2 Active multivit wcewlpum-thoq-HN-c alcium (THERA-M) 9 mg iron-400 mcg tabletIndications: [...] (10/24/2021): Added automatically from request for surgery [id number] Postlaminectomy syndrome, lumbar region 10/25/19 Overview (10/24/2021): Added automatically from request for surgery [id number] Assessment & Plan (07/03/2022 3:48 PM BILLING AUDITOR): Ms. Mcnulty is doing well following lumbar [...] (10/24/2021): Added automatically from request for surgery [id number] Other chest pain 01/19/2020 Assessment & Plan [...] need for exchange this admission Suprapubic catheter ([facility]) 11/16/2019 Essential hypertension 11/16/2019 Hypertensive urgency [...] (11/25/2019): Added automatically from request for surgery [id number] Chronic lumbar radiculopathy 01/21/2019 Chronic back pain 01/21/2019 Spinal stenosis of lumbar region with radiculopa thy 12/04/2018 Assessment & Plan (07/18/2021 10:23 AM BILLING AUDITOR): Assessment Healed fusion L2-5 severe retrolisthesis with [...] (06/18/2018): Added automatically from request for surgery [id number] Assessment & Plan (12/04/2018 3:42 PM CDT): Healing fusion C6-7 Continued observation. Assessment & Plan (08/12/2018 10:35 AM BILLING AUDITOR): Assessment Healing fusion C6-7 Plan Talked about do's and don'ts she is still to maintain her initial restrictions and return in 6 weeks for an x-ray Assessment & Plan (06/25/2018 2:43 PM BILLING AUDITOR): Angelina was recently hospitalized at [facility] and diagnosed with a disc osteophyte [...] (06/18/2018): Added automatically from request for surgery [id number] Cervical pain (neck) 06/13/2018 Asthma 11/13/2013 Overview [...] often do you attend chur ch or gnosticist services? More than 4 times per year 03/07/2022 Do you belong to any clubs o r organizations such as jew groups, unions, fraternal or athletic groups, or [...] slept in a long-term (including now)? No 03/07/2022 Comments No Sex and Gender Information Value Date Recorded Sex Assigned at Not on file Legal Sex Female 11:49 PM BILLING AUDITOR Gender Identity Not on file Sexual Orientation [...] Plan Chronic Care Management Worsening( 10:12 AM BILLING AUDITOR) Milvia Mireles RN Note: Problem: Chronic Pain Goals: 1. Minimize further functional decline 2. Maximize quality of life 3. Control pain Strategies: - Activity/exercise program recommendation - Conservative stepwise pain medicine strategy with multi-disciplinary approach - Recommend healthy lifestyle strategies and compensatory methods as needed Medical Devices Implanted Type Area Spline Rolling Machine Job Setter Device Identifier Shelf Expiration Date Model / Serial / Lot Spinal Cord Stimulator-2016 Implanted:01/28 (Quantity not on file) Spinal Cord Stimulator Left: Hip Nevro Spinal Cord Stimulation System [id number] / / Description:Closed Bore only 1.5T or [...] ensure it has returned to pre-MRI settings. [employer] 700-025 I Factor Allograft Putty Syringe Graft 2.5cc Bone - [id number] Implanted:Qty: 1 on 07/03/2018 by Zachary Rothman MD at [facility] N/A: Spine Cervical [employer] 03/29/2021 700-025 / / [id number] Plate 1-Level 14 Mm Cervical - [id number] Implanted:Qty: 1 on 07/03/2018 by Zachary Rothman MD at [facility] N/A: Spine Cervical [employer] 30-0114 / / Screw 4.0x14mm Self Drilling Variable - [id number] Implanted:Qty: 4 on 07/03/2018 by Zachary Rothman MD at [facility] N/A: Spine Cervical [employer] [id number] / / Cage Spinal [id number] 7 Degree Porous Coated Latex Free - [id number] Implanted:Qty: 1 on 07/03/2018 by Zachary Rothman MD at [facility] N/A: Spine Cervical Spinal Elements [id number] / / Depuy Synthes Spine [id number] Substitute Bone Graft Fibergraft Gps Medium Putty 6cc - [id number] Implanted:Qty: 1 on 11/29/2021 by Dave Louis MD at [facility] N/A: Lumbar-Sa cral Spine Depuy Synthes Spine [id number] 10/18/2023 [id number] / / [id number] [employer] Osteosponge Allograft Chips Radiolucent Thk4-10mm Graft 30cc Bone [id number] - [id number] - [id number] Implanted:Qty: 1 on 11/29/2021 by Dave Louis MD at [facility] N/A: Lumbar-Sa cral Spine [employer] 10/14/2024 [id number] / [id number] / Depuy Synthes Spine Cage Post Spinal 4d Plif Ti [id number] - [id number] Implanted:Qty: 1 on 11/29/2021 by Dave Louis MD at [facility] N/A: Lumbar-Sa cral Spine Depuy Synthes Spine [id number] 07/30/2024 [id number] / / [id number] Depuy Synthes Spine Expedium 5.5mm 80mm Line Prebent Rodney Spinal Titanium Nonsterile [id number] - [id number] Implanted:Qty: 1 on 11/29/2021 by Dave Louis MD at [facility] N/A: Lumbar-Sa cral Spine Depuy Synthes Spine [id number] / / Depuy Synthes Spine Expedium 5.5mm 85mm Line Prebent Rodney Spinal Titanium Nonsterile [id number] - [id number] Implanted:Qty: 1 on 11/29/2021 by Dave Louis MD at [facility] N/A: Lumbar-Sa cral Spine Depuy Synthes Spine [id number] / / Depuy Synthes Spine Expedium 5.5mm 45mm Polyaxial Spine Screw Bone Titanium 5.5mm Rodney [id number] - [id number] Implanted:Qty: 2 on 11/29/2021 by Dave Louis MD at [facility] N/A: Lumbar-Sa cral Spine Depuy Synthes Spine [id number] / / Depuy Synthes Spine Expedium 6.5mm 45mm Polyaxial Spine Screw Bone Titanium 5.5mm Rodney [id number] - [id number] Implanted:Qty: 3 on 11/29/2021 by Dave Louis MD at [facility] N/A: Lumbar-Sa cral Spine Depuy Synthes Spine [id number] / / Depuy Synthes Spine Expedium 1 Inner Monoaxial Spine Screw Set Titanium [id number] - [id number] Implanted:Qty: 6 on 11/29/2021 by Dave Louis MD at [facility] N/A: Lumbar-Sa cral Spine Depuy Synthes Spine [id number] / / Depuy Synthes Spine Expedium 7mm 45mm 1 Innie Polyaxial Spine Screw Bone Titanium [id number] - [id number] Implanted:Qty: 1 on 11/29/2021 by Dave Louis MD at [facility] N/A: Lumbar-Sa cral Spine Depuy Synthes Spine [id number] / / Procedures Procedure Name Priority Date/Time [...] 11/29/2019 8:04 AM Admit Type: Inpatient Room: [facility] 4 Date of : 1965 Instrument Name: CF-[id number] Gender: Female Note Status: Finalized Procedure: Colonoscopy [...] the bowel preparation was evaluated usingthe BBPS ([place] Bowel Preparation Scale) with scores of: Right [...] AM CDT) Hep A IgM Nonreactive Nonreactive [facility] Comment: Interpretive Data: If Hep A IgM Ab is reported as Equivocal, a new sample should be drawn in two weeks for testing. Current interpretive data was last revised on 19. Hep B core IgM Nonreactive Nonreactive [facility] Comment: Interpretive Data If HepB Core [...] last revised on 2019. HepBsAg Nonreactive Nonreactive [facility] Blood specimen (specimen) 11/17/2019 4:13 AM CDT 11/17/2019 4:31 AM CDT [facility] MICROBIOLOGY - GENERAL ORDERABLES Final Result [facility] Zahraa Joshi Seth Department [place] [address] from Last 3 Months or Most Recently Relevant to Health Maintenance Insurance UHC MEDICARE ADVANTAGE [facility] [place] [address] [facility] MEDIC[facility] MEDICARE ADVANTAGE Advance Directives For more information, please contact: [phone] Documents on File Type Date Recorded Patient Bookkeepers Supervisor Expl anation Power of Community Health Agent 11/29/2021 11:46 AM * Full Code (Latest [...] First Alternate Health Care Agent Care Teams Cleaning Validation Consultant Relationship Specialty Start Date End Date Devabhaktuni, Ramadevi R., MD [address] [address] PCP - General Family Medicine 07/16/21 Lidia Barajas MD Anesthesiologist Anesthesiology 01/13/20
--- OUTSIDE RECORDS SUMMARY | 2024-10-18 12:23 | XMS_ITS ---
Author Organization [facility] ceci Address [address] [facility] [place] [address] Care Team Providers Care Audio Visual Tech Name Role Phone zzzzMigration, zzzzProvider Unavailable Unav ailable REASON FOR VISIT EMR-Theodore Encounters Encounter Location Date Provider Diagnosis [facility] [address] [facility] [address] [place] [address] 04/20/2023 zzzzProvider zzzzMigration Plan Of Treatment No Information Progress Notes * Angelina MOYA FDOB: [birth year] (58 yo F)Acc No.[id number]:04/20/2023 Patient: Angelina WEI :1965 A ge:57 Y S ex:Female Address:[facility] [address] [facility] [address] Subjective: * Chief Complaints: * E MR-Theodore * Medical History: * Surgical History: * Hospitalization/Major Diagno stic Procedure: * Medications: Objective: * Vitals: * Physical Examination: Assessment: Plan: * Treatment: * Procedure Codes: * true * Date: Generated for Printi ng/Faxing/eTransmitting on: 0 10/18/2024 12:23 PM CDT
--- OUTSIDE RECORDS SUMMARY | 2024-10-18 12:23 | XMS_ITS | Patient Health Record ---
Author Organization [facility] Address [address] [facility] [address] [place] [address] Support Name Relationship Address Phone Angelina Mcnulty Guarantor Unknown [phone] Reason For Referral No Information Plan Of Treatment No Information
--- OUTSIDE RECORDS SUMMARY | 2024-10-18 12:24 | XMS_ITS | Encounter Summary ---
Author Organization [facility] Address [address] [place] [address] Care Team Providers Care Director Of Clinical Applications Name Role Phone Fiordaliza Snell MD Primary [...] on file Legal Sex Female 2:43 AM STORE CLERK Gender Identity Not on file Sexual Orientation Not on file documented as of this encounter Plan of Treatment Not on file documented as of this encounter Visit Diagnoses Diagnosis Unspecified symptom associated with female genital organs- Primary documented in this encounter Additional Health Concerns Infection Onset Date Last Indicated Resolved Time R/O COVID-19 07/02/2020 07/02/2020 07/02/2020 8:53 PM STORE CLERK MRSA Comment:Resolved per Type and Duration of Precautions Recommended for Selected Infections and Conditions document 2023 update 07/02/2020 07/02/2020 03/16/20 24 10:58 AM CDT R/O COVID-19 07/10/2020 07/10/2020 07/10/2020 5:01 PM STORE CLERK documented as of this encounter Care Teams Director Of Clinical Applications Relationship Specialty Start Date End Date Firodaliza Snell MD PCP - General Family Practice 09/09/22 documented as of this encounter
--- OUTSIDE RECORDS SUMMARY | 2024-10-18 12:24 | XMS_ITS | Encounter Summary ---
Author Organization [facility] Address [address] [place] [address] Care Team Providers Care Liquor Grinder Mill Operator Name Role Phone Fiordaliza Snell MD [...] on file Legal Sex Female 2:43 AM COAL PICKER Gender Identity Not on file Sexual Orientation Not on file documented as of this encounter Plan of Treatment Not on file documented as of this encounter Visit Diagnoses Diagnosis Unspecified symptom associated with female genital organs- Primary documented in this encounter Additional Health Concerns Infection Onset Date Last Indicated Resolved Time R/O COVID-19 07/02/2020 07/02/2020 07/02/2020 8:53 PM COAL PICKER MRSA Comment:Resolved per Type and Duration of Precautions Recommended for Selected Infections and Conditions document 2023 update 07/02/2020 07/02/2020 03/16/20 24 10:58 AM CDT R/O COVID-19 07/10/2020 07/10/2020 07/10/2020 5:01 PM COAL PICKER documented as of this encounter Care Teams Liquor Grinder Mill Operator Relationship Specialty Start Date End Date Fiordaliza Snell MD PCP - General Family Practice 09/09/22 documented as of this encounter
--- OUTSIDE RECORDS SUMMARY | 2024-10-18 12:24 | XMS_ITS | Encounter Summary ---
Author Organization [facility] Healthcare Address [address] [place] [address] Care Team Providers Care Ice Cream Man Name Role Phone Frazier Shilpatemo Law DO Primary Care Provider Lidia Barajas MD Unavailable Ab Melara MD Primary Care Provid er Encounter Details Date Type Department Care Team (Late st Contact Info) Description 03/19/2019 Telephone [facility] - Interventional Radiology [address] [place] [address] Nhung French RN Social History [...] on file Legal Sex Female 11:49 PM HOME HEALTH CNA Gender Identity Not on file Sexual Orientation [...] DT MRSA 12/27/2021 03/06/2022 09/02/2022 3:05 AM HOME HEALTH CNA documented as of this encounter Care Teams Ice Cream Man Relationship Specialty Start Date End Date Shilpa Frazier DO PCP - General 06/12/18 07/15/21 Ab Melara MD [address] [address] PCP - General Family Medicine 07/16/21 Lidia Barajas MD Anesthesiologist Anesthesiology 01/13/20 documented as of this encounter
--- OUTSIDE RECORDS SUMMARY | 2024-10-18 12:24 | XMS_ITS | Encounter Summary ---
Author Organization [facility] Address [address] [place] [address] Care Team Providers Care Maker Up Folding Name Role Phone Fiordaliza Snell MD Primary [...] on file Legal Sex Female 2:43 AM COATING MACHINE OPERATOR Gender Identity Not on file [...] R/O COVID-19 07/02/2020 07/02/2020 07/02/2020 8:53 PM COATING MACHINE OPERATOR MRSA Comment:Resolved per Type and Duration of Precautions Recommended for Selected Infections and Conditions document 2023 update 07/02/2020 07/02/2020 03/16/20 24 10:58 AM CDT R/O COVID-19 07/10/2020 07/10/2020 07/10/2020 5:01 PM COATING MACHINE OPERATOR documented as of this encounter Care Teams Maker Up Folding Relationship Specialty Start Date End Date Fiordaliza Snell MD PCP - General Family Practice 09/09/22 documented as of this encounter
--- OUTSIDE RECORDS SUMMARY | 2024-10-18 12:24 | XMS_ITS | Clinical Summary ---
Author Organization [facility] Address [address] [place] [address] Phone Care Team Providers Care Spinning Machine Operator Name Role Phone Fiordaliza Snell [...] migh t be different from the original. Bond Broker - Dr. Eddie Tapia MD, [facility], [facility] - [address] [facility] Problem Noted Date Diagnosed Date YAJAIRA [...] NOS Added automatically from request for surgery [id number] Last Assessment & Plan: Healing fusion C6-7 [...] (09/14/2021): Added automatically from request for surgery [id number] Cervical pain (neck) 06/13/2018 Intractable pain 10/13/2011 [...] sepsis without septic shock 07/25/2020 Neurogenic bladder Probable sepsis 07/25/2020 Immunizations Immunization Administration Dates Next Due (Geliyoo)(12 YR UP) COVID-19 VACCINE - EMERGENCY USE AUTHORIZATION, MRNA, [id number](PF) 30 MCG/0.3 ML IM SUSP 12/13/2020,11/20/2020 (PNEUMOVAX [...] on file Legal Sex Female 2:43 AM ORTHOPEDIC TECH Gender Identity Not on file Sexual Orientation Not on file Occupation Industry Job Start Date Job End Date Not on file Not on file Not on file Not on file Last Filed Vital Signs Vital Sign Reading Time Taken Comments Blood Pressure 124/76 04/20/2021 2:12 PM CDT Pulse 74 04/20/2021 2:12 PM CDT Temperature 37.1 C (98.8 F) 04/20/2021 2:12 PM CDT Respiratory Rate 18 07/12/2020 9:24 PM ORTHOPEDIC TECH Oxygen Saturation 97% 04/20/2021 2:12 PM CDT Inhaled Oxygen Concentration - - Weight 91.6 kg (202 lb) 08/07/2020 2:15 PM ORTHOPEDIC TECH Height 172.7 cm (5' 8 ) 04/20/2021 2:12 PM CDT Body Mass Index 30.71 08/07/2020 2:15 PM ORTHOPEDIC TECH Plan of Treatment Health Maintenance Due Date Last Done Comments DTAP/TDAP/TD VACCINES (1 - Tdap) 1985 HEPATITIS B VACCINES (1 of 3 - 19+ 3-dose series) 1985 BREAST CANCER SCREENING 2006 FIT-DNA Q 3 years 09/27/2011 FIT/FOBT Q 1 year 09/27/2011 Flex Sig/CT Colonography Q 5 years 09/27/2011 ZOSTER VACCINE (1 of 2) 2016 INFLUENZA VACCINE (#1) 2024 0, 03/26/2019, 05/06/2018, Additional history exists COVID-19 Vaccine (3 - 2023-2 5 season) 2024 12/13/2020, 11/20/2020 COLORECTAL SCREENING 11/28/2029 11/29/2019, 08/03/2019, 08/03/2019 Colorectal Cancer Screening 11/28/2029 Insurance [employer] PPO MCR Advance Directives For more information, please contact: [phone] * Full Code (Latest Code Status on File) Date Activated Date Inactivated Comments 07/02/2020 10:50 PM 07/13/2020 1:53 PM * Full Code Date Activated Date Inactivated Comments 06/26/2011 3:20 AM 06/26/2011 8:40 PM Care Teams Spinning Machine Operator Relationship Specialty Start Date End Date Fiordaliza Snell MD PCP - General Family Practice 09/09/22
--- OUTSIDE RECORDS SUMMARY | 2024-10-18 12:24 | XMS_ITS | Encounter Summary ---
Author Organization [facility] Healthcare Address [address] [place] [address] Care Team Providers Care Fire Official Name Role Phone Shilpa Frazier DO Primary Care Provider Lidia Barajas MD Unavailable Ab Melara MD Primary Care Provid er Encounter Details Date Type Department Care Team (Late st Contact Info) Description 04/24/2020 Telephone [facility] [address] [facility] [address] [place] [address] Tori Arias RN Social History [...] on file Legal Sex Female 11:49 PM SEWER INSPECTOR Gender Identity Not on file Sexual Orientation [...] DT MRSA 12/27/2021 03/06/2022 09/02/2022 3:05 AM SEWER INSPECTOR documented as of this encounter Care Teams Fire Official Relationship Specialty Start Date End Date Shilpa Frazier DO PCP - General 06/12/18 07/15/21 Ab Melara MD [address] [address] PCP - General Family Medicine 07/16/21 Lidia Barajas MD Anesthesiologist Anesthesiology 01/13/20 documented as of this encounter
--- OUTSIDE RECORDS SUMMARY | 2024-10-18 12:24 | XMS_ITS | Encounter Summary ---
Author Organization [facility] Healthcare Address [address] [place] [address] Care Team Providers Care Supervisor Park Workers Name Role Phone Shilpa Frazier DO Primary Care Provider Lidia Barajas MD Unavailable Ab Melara MD Primary Care Provid er Encounter Details Date Type Department Care Team (Late st Contact Info) Description 03/15/2019 Telephone [facility] - Interventional Radiology [address] [place] [address] Philly Aguirre RN Social History [...] on file Legal Sex Female 11:49 PM PAPER BAGS SEWING MACHINE OPERATOR Gender Identity Not on file [...] DT MRSA 12/27/2021 03/06/2022 09/02/2022 3:05 AM PAPER BAGS SEWING MACHINE OPERATOR documented as of this encounter Care Teams Supervisor Park Workers Relationship Specialty Start Date End Date Shilpa Frazier DO PCP - General 06/12/18 07/15/21 Ab Melara MD [address] [address] PCP - General Family Medicine 07/16/21 Lidia Barajas MD Anesthesiologist Anesthesiology 01/13/20 documented as of this encounter
--- OUTSIDE RECORDS SUMMARY | 2024-10-18 12:25 | XMS_ITS | Encounter Summary ---
Author Organization [facility] Address [address] [place] [address] Care Team Providers Care Wire Spring Relay Adjuster Name Role Phone Fiordaliza Snell MD Primary [...] on file Legal Sex Female 2:43 AM SCHOOL PRINCIPAL Gender Identity Not on file Sexual Orientation Not on file documented as of this encounter Plan of Treatment Not on file documented as of this encounter Visit Diagnoses Diagnosis Abdominal pain, unspecified site- Primary documented in this encounter Additional Health Concerns Infection Onset Date Last Indicated Resolved Time R/O COVID-19 07/02/2020 07/02/2020 07/02/2020 8:53 PM SCHOOL PRINCIPAL MRSA Comment:Resolved per Type and Duration of Precautions Recommended for Selected Infections and Conditions document 2023 update 07/02/2020 07/02/2020 03/16/20 24 10:58 AM CDT R/O COVID-19 07/10/2020 07/10/2020 07/10/2020 5:01 PM SCHOOL PRINCIPAL documented as of this encounter Care Teams Wire Spring Relay Adjuster Relationship Specialty Start Date End Date Fiordaliza Snell MD PCP - General Family Practice 09/09/22 documented as of this encounter
--- OUTSIDE RECORDS SUMMARY | 2024-10-18 12:25 | XMS_ITS | Encounter Summary ---
Author Organization [facility] Healthcare Address [address] [place] [address] Care Team Providers Care Optometric Assistant Name Role Phone Shilpa Fraziermeera PEREZ Primary Care Provider Lidia Barajas MD Unavailable Ab Melara MD Primary Care Provid er Reason for Visit * Reason Onset Date Comments PRECALL ANTICOAG 02/18/2020 Encounter Details Date Type Department Care Team (Late st Contact Info) Description 02/18/2020 Telephone [facility] at [facility] [address] [facility] 1[address] [place] [address] Tori Arias RN PRECALL ANTICOAG [...] on file Legal Sex Female 11:49 PM PATTERN STORAGE CLERK Gender Identity Not on file Sexual [...] DT MRSA 12/27/2021 03/06/2022 09/02/2022 3:05 AM PATTERN STORAGE CLERK documented as of this encounter Care Teams Optometric Assistant Relationship Specialty Start Date End Date Shilpa Frazier DO PCP - General 06/12/18 07/15/21 Ab Melara MD [address] [address] PCP - General Family Medicine 07/16/21 Lidia Barajas MD Anesthesiologist Anesthesiology 01/13/20 documented as of this encounter
--- OUTSIDE RECORDS SUMMARY | 2024-10-18 12:25 | XMS_ITS | Encounter Summary ---
Author Organization [facility] Address [address] [place] [address] Care Team Providers Care Sponge Maker Name Role Phone Fiordaliza Snell MD [...] on file Legal Sex Female 2:43 AM CRUSHER PLANT OPERATOR Gender Identity Not on file Sexual Orientation Not on file documented as of this encounter Plan of Treatment Not on file documented as of this encounter Visit Diagnoses Diagnosis Metrorrhagia- Primary documented in this encounter Additional Health Concerns Infection Onset Date Last Indicated Resolved Time R/O COVID-19 07/02/2020 07/02/2020 07/02/2020 8:53 PM CRUSHER PLANT OPERATOR MRSA Comment:Resolved per Type and Duration of Precautions Recommended for Selected Infections and Conditions document 2023 update 07/02/2020 07/02/2020 03/16/20 24 10:58 AM CDT R/O COVID-19 07/10/2020 07/10/2020 07/10/2020 5:01 PM CRUSHER PLANT OPERATOR documented as of this encounter Care Teams Sponge Maker Relationship Specialty Start Date End Date Fiordaliza Snell MD PCP - General Family Practice 09/09/22 documented as of this encounter
--- OUTSIDE RECORDS SUMMARY | 2024-10-18 12:25 | XMS_ITS | Encounter Summary ---
Author Organization [facility] Address [address] [place] [address] Care Team Providers Care Campus Police Officer Name Role Phone Fiordaliza Snell MD [...] on file Legal Sex Female 2:43 AM MANAGER MANAGED BACKUP SERVICES Gender Identity Not on file Sexual Orientation Not on file documented as of this encounter Plan of Treatment Not on file documented as of this encounter Visit Diagnoses Diagnosis Closed fracture of lateral malleolus- Primary documented in this encounter Additional Health Concerns Infection Onset Date Last Indicated Resolved Time R/O COVID-19 07/02/2020 07/02/2020 07/02/2020 8:53 PM MANAGER MANAGED BACKUP SERVICES MRSA Comment:Resolved per Type and Duration of Precautions Recommended for Selected Infections and Conditions document 2023 update 07/02/2020 07/02/2020 03/16/20 24 10:58 AM CDT R/O COVID-19 07/10/2020 07/10/2020 07/10/2020 5:01 PM MANAGER MANAGED BACKUP SERVICES documented as of this encounter Care Teams Campus Police Officer Relationship Specialty Start Date End Date Fiordaliza Snell MD PCP - General Family Practice 09/09/22 documented as of this encounter
--- OUTSIDE RECORDS SUMMARY | 2024-10-18 12:25 | XMS_ITS | Encounter Summary ---
Author Organization [facility] Address [address] [place] [address] Care Team Providers Care Hiv Prevention Specialist Name Role Phone Fiordaliza Snell MD [...] on file Legal Sex Female 2:43 AM BUS TRANSPORTATION MANAGER Gender Identity Not on file Sexual Orientation Not on file documented as of this encounter Plan of Treatment Not on file documented as of this encounter Visit Diagnoses Diagnosis Excessive or frequent menstruation- Primary documented in this encounter Additional Health Concerns Infection Onset Date Last Indicated Resolved Time R/O COVID-19 07/02/2020 07/02/2020 07/02/2020 8:53 PM BUS TRANSPORTATION MANAGER MRSA Comment:Resolved per Type and Duration of Precautions Recommended for Selected Infections and Conditions document 2023 update 07/02/2020 07/02/2020 03/16/20 24 10:58 AM CDT R/O COVID-19 07/10/2020 07/10/2020 07/10/2020 5:01 PM BUS TRANSPORTATION MANAGER documented as of this encounter Care Teams Hiv Prevention Specialist Relationship Specialty Start Date End Date Fiordaliza Snell MD PCP - General Family Practice 09/09/22 documented as of this encounter
--- OUTSIDE RECORDS SUMMARY | 2024-10-18 12:25 | XMS_ITS | Encounter Summary ---
Author Organization [facility] Address [address] [place] [address] Care Team Providers Care Floor Polisher Name Role Phone Fiordaliza Snell MD Primary [...] on file Legal Sex Female 2:43 AM PHOTO OPTICS TECHNICIAN Gender Identity Not on file Sexual Orientation Not on file documented as of this encounter Plan of Treatment Not on file documented as of this encounter Visit Diagnoses Diagnosis Pelvic peritoneal adhesions, female (postoperative) (postinfection)- Primary documented in this encounter Additional Health Concerns Infection Onset Date Last Indicated Resolved Time R/O COVID-19 07/02/2020 07/02/2020 07/02/2020 8:53 PM PHOTO OPTICS TECHNICIAN MRSA Comment:Resolved per Type and Duration of Precautions Recommended for Selected Infections and Conditions document 2023 update 07/02/2020 07/02/2020 03/16/20 24 10:58 AM CDT R/O COVID-19 07/10/2020 07/10/2020 07/10/2020 5:01 PM PHOTO OPTICS TECHNICIAN documented as of this encounter Care Teams Floor Polisher Relationship Specialty Start Date End Date Fiordaliza Snell MD PCP - General Family Practice 09/09/22 documented as of this encounter
--- OUTSIDE RECORDS SUMMARY | 2024-10-18 12:25 | XMS_ITS | Encounter Summary ---
Author Organization [facility] Address [address] [place] [address] Care Team Providers Care Protection Mgr Name Role Phone Fiordaliza Snell MD Primary [...] on file Legal Sex Female 2:43 AM WALL CRANE OPERATOR Gender Identity Not on file Sexual Orientation Not on file documented as of this encounter Plan of Treatment Not on file documented as of this encounter Visit Diagnoses Diagnosis Lumbago- Primary documented in this encounter Additional Health Concerns Infection Onset Date Last Indicated Resolved Time R/O COVID-19 07/02/2020 07/02/2020 07/02/2020 8:53 PM WALL CRANE OPERATOR MRSA Comment:Resolved per Type and Duration of Precautions Recommended for Selected Infections and Conditions document 2023 update 07/02/2020 07/02/2020 03/16/20 24 10:58 AM CDT R/O COVID-19 07/10/2020 07/10/2020 07/10/2020 5:01 PM WALL CRANE OPERATOR documented as of this encounter Care Teams Protection Mgr Relationship Specialty Start Date End Date Fiordaliza Snell MD PCP - General Family Practice 09/09/22 documented as of this encounter
[2024-10-18 12:32] LABS: Add Urine Microscopic? YES; Appearance Urine Cloudy (Clear); Bacteria Urine 4+ /hpf; Bilirubin Urine Negative (Negative); Blood Urine 2+ (Negative); Color Urine Yellow (Yellow); Glucose Urine UA Negative (Negative); Ketones Urine Negative (Negative); Leukocyte Esterase Ur 3+ LEU/UL (Negative); Need Manual Microscopic Reviewed; Nitrate Urine Positive (Negative); Protein Urine Trace mg/dL (Negative); Specific Grav Ur 1.011 (1.001-1.035); Squamous Epithelial Cell Urine Occasional /hpf (Few); WBC Urine 51-100 /hpf (0-3); pH Urine 6.5 (5.0-9.0)
[2024-10-18 12:43] LABS: Alanine Aminotransferase 16 U/L (6-35); Albumin Level 3.9 g/dL (3.5-5.1); Alkaline Phosphatase 83 U/L (38-126); Anion Gap 8 mmol/L (4-12); Aspartate Amino Transferase 26 U/L (14-36); Bilirubin,Total 1.4 mg/dL (0.2-1.3); Blood Urea Nitrogen 11 mg/dL (7-17); Calcium 8.3 mg/dL (8.4-10.2); Carbon Dioxide 30 mmol/L (22-30); Chloride 99 mmol/L (98-107); Estimated CRCL calculation 111 ml/min; Estimated Glomerular Filt Rate > 60; Glucose 114 mg/dL (65-110); Potassium 3.1 mmol/L (3.4-5.0); Sodium 137 mmol/L (137-145)
[2024-10-18 12:46] LABS: Basophils Percent Auto 0.7 % (0.2-1.2); Eosinophils Percent Auto 0.7 % (0-4.4); Hematocrit 36.7 % (37.0-47.0); Immature Granulocyte Absolute 0.04 K/mm3 (0.00-0.031); Immature Granulocyte Percent A 0.7 % (0-0.5); Lymphocytes Absolute Auto 1.12 K/mm3 (0.9-3.2); Lymphocytes Percent Auto 18.6 % (18.3-44.2); Mean Corpuscular HGB Conc 32.7 g/dl (32-36); Mean Corpuscular Hemoglobin 27.3 pg (26-34); Mean Corpuscular Volume 83.4 fl (80-100); Mean Platelet Volume 11.1 fl (7.4-10.4); Monocytes Absolute Auto 0.6 K/mm3 (0.1-0.6); Monocytes Percent Auto 9.3 % (2.6-8.5); Neutrophils Absolute Auto 4.2 K/mm3 (1.3-6.7); Platelet Count Result 177 k/mm3 (150-375)
[2024-10-18 12:49] LABS: CRP 13.4 mg/dL (<1.0); INR 1.2; Partial Thromboplastin Time 20.5 Seconds (22.3-36.8); Prothrombin Time 15.9 Seconds (11.1-14.7)
[2024-10-18 13:23] LABS: Lactic Acid Reflex 1.1 mmol/L (0.7-2.0)
[2024-10-18 13:26] LABS: Erythrocyte Sedimentation Rate 77 mm/hr (0-20)
[2024-10-18 13:27] VITALS: BP 124/52; PULSE 70; RESP 18; O2SAT 99
--- OUTSIDE RECORDS SUMMARY | 2024-10-18 13:33 | XMS_ITS | Clinical Summary ---
Author Organization [facility] Address [address] [place] [address] Phone Care Team Providers Care Airborne Weapons Technical Manager Name Role Phone Unavailable Primary Care Provider Unavailabl e Social History Tobacco Use Types Packs/Day Years Used Date Smoking Tobacco: Never Assessed Comments Unknown Sex and Gender Information Value Date Recorded Sex Assigned at Not on file Legal Sex Female 3:52 AM CRAYON SAWYER Gender Identity Not on file Sexual Orientation [...]
--- OUTSIDE RECORDS SUMMARY | 2024-10-18 13:33 | XMS_ITS | Encounter Summary ---
Author Organization [facility] Healthcare Address [address] [place] [address] Care Team Providers Care Rope Cutter Name Role Phone Shilpa Frazier DO Primary Care Provider Lidia Barajas MD Unavailable Ab Melara MD Primary Care Provid er Encounter Details Date Type Department Care Team (Late st Contact Info) Description 06/15/2018 Telephone [facility] [address] [facility] 1st [place] [address] Emil Clarke, RT Social History Tobacco Use Types Packs/Day Years Used Date Smoking Tobacco: Never Smokeless Tobacco: Never Alcohol Use Standard Drinks/Week Comments No 0 (1 standard drink = 0.6 oz pur e alcohol) Comments No Sex and Gender Information Value Date Recorded Sex Assigned at Not on file Legal Sex Female 11:49 PM ASSEMBLY INSPECTOR HELPER Gender Identity Not on file Sexual [...] DT MRSA 12/27/2021 03/06/2022 09/02/2022 3:05 AM ASSEMBLY INSPECTOR HELPER documented as of this encounter Care Teams Rope Cutter Relationship Specialty Start Date End Date Frazier Shilpaolimpia Law DO PCP - General 06/12/18 07/15/21 Ab Melara MD [address] [address] PCP - General Family Medicine 07/16/21 Lidia Barajas MD Anesthesiologist Anesthesiology 01/13/20 documented as of this encounter
--- OUTSIDE RECORDS SUMMARY | 2024-10-18 13:33 | XMS_ITS | Continuity of Care Document ---
Author Organization [facility] Address [address] [facility] [address] [place] [address] Phone Care Team Providers Care General Internist And Physician Leader Name Role Phone Denys Enrique MD Unavailable [...] tient visit,est, mod [facility], [address], [place], [place], [id number], [place] tel:[phone] [facility] r knee (chief complaint) Pain in right knee 4 Klaus Mcfarlane. [address] [place] [address], [place], [place], [id number], [place]. tel:[phone] Referring Provider: Martin Medina, [address] [place] [address] [address] [facility], [place], [address]. tel:[phone] [facility], [address] [place] [address], [id number], [place] tel:[phone] [facility] Pain in left shoulder Aug- 2 Klaus Denys. [address] [place] [address], [place], [place], [id number], [place]. tel:[phone] Office/outpa tient visit,[facility], [address] [place] [address], [id number], [place] tel:[phone] [facility] fell Out Of Wheelchair And Shived Both Shoulders (chief complaint) Pain in left shoulderPain in right shoulder Aug- 2 Klaus Mcfarlane. [address] [place] [address], [place], [place], [id number], [place]. tel:[phone] Referring Provider: Martin Medina, [address] [place] [address] [address] [facility], [place], [address]. tel:[phone] Office/outpa tient visit,[employer] [facility], [address] [place] [address], [id number], [place] tel:[phone] [facility] No Information Sep-2 0 No Information Referring Provider: Martin Medina, [address] [place] [address] [address] [facility], [place], [address]. tel:[phone] Family History Family Member Type Diagnosis Age At Onset Mother Problem (finding) Heart Disease Brother Problem (finding) Depression Mother Problem (finding) Cancer, unknown Mother Problem (finding) Depression Brother Problem (finding) Hypertension Father Problem (finding) Cancer, unknown Mother Problem (finding) Hypertension Father Problem (finding) Hypertension Father Problem (finding) Depression Payers Payer name Insurance type Covered alliance party ID Authorcorya tirayna(s) No Information Social History [...]
--- OUTSIDE RECORDS SUMMARY | 2024-10-18 13:33 | XMS_ITS | Encounter Summary ---
Author Organization [facility] Address [address] [place] [address] Care Team Providers Care Information Security Systems Instructor Name Role Phone Fiordaliza Snell MD Primary [...] on file Legal Sex Female 2:43 AM ARCHITECTURE INSTRUCTOR Gender Identity Not on file Sexual Orientation Not on file documented as of this encounter Plan of Treatment Not on file documented as of this encounter Visit Diagnoses Diagnosis Other and unspecified ovarian cyst- Primary documented in this encounter Additional Health Concerns Infection Onset Date Last Indicated Resolved Time R/O COVID-19 07/02/2020 07/02/2020 07/02/2020 8:53 PM ARCHITECTURE INSTRUCTOR MRSA Comment:Resolved per Type and Duration of Precautions Recommended for Selected Infections and Conditions document 2023 update 07/02/2020 07/02/2020 03/16/20 24 10:58 AM CDT R/O COVID-19 07/10/2020 07/10/2020 07/10/2020 5:01 PM ARCHITECTURE INSTRUCTOR documented as of this encounter Care Teams Information Security Systems Instructor Relationship Specialty Start Date End Date Fiordaliza Snell MD PCP - General Family Practice 09/09/22 documented as of this encounter
--- OUTSIDE RECORDS SUMMARY | 2024-10-18 13:33 | XMS_ITS | Encounter Summary ---
Author Organization [facility] Address [address] [place] [address] Care Team Providers Care Cellar Packer Name Role Phone Fiordaliza Snell MD Primary Care Provider Encounter Details Date Type Department Care Team (Late st Contact Info) Description 10/10/2003 Outpatient Historical [facility] Franki Grimes DO [address] [place] [address] Er, Authorized P NO ADDRESS ON FILE LUMBAGO (Primary Dx) Social History Tobacco Use Types Packs/Day Years Used Date Smoking Tobacco: Never Assessed Comments Unknown Sex and Gender Information Value Date Recorded Sex Assigned at Not on file Legal Sex Female 2:43 AM YARN BLEACHING MACHINE OPERATOR Gender Identity Not on file Sexual Orientation Not on file documented as of this encounter Plan of Treatment Not on file documented as of this encounter Visit Diagnoses Diagnosis Lumbago- Primary documented in this encounter Additional Health Concerns Infection Onset Date Last Indicated Resolved Time R/O COVID-19 07/02/2020 07/02/2020 07/02/2020 8:53 PM YARN BLEACHING MACHINE OPERATOR MRSA Comment:Resolved per Type and Duration of Precautions Recommended for Selected Infections and Conditions document 2023 update 07/02/2020 07/02/2020 03/16/20 24 10:58 AM CDT R/O COVID-19 07/10/2020 07/10/2020 07/10/2020 5:01 PM YARN BLEACHING MACHINE OPERATOR documented as of this encounter Care Teams Cellar Packer Relationship Specialty Start Date End Date Fiordaliza Snell MD PCP - General Family Practice 09/09/22 documented as of this encounter
--- OUTSIDE RECORDS SUMMARY | 2024-10-18 13:33 | XMS_ITS | Encounter Summary ---
Author Organization [facility] Address [address] [place] [address] Care Team Providers Care Postdoctoral Scientist Name Role Phone Unknown, Notinfile Primary Care Provider Unavail able Shilpa Frazier DO Primary Care Provider Lidia Barajas MD Unavailable Ab Melara MD Primary Care Provid er Encounter Details Date Type Department Care Team (Late st Contact Info) Description 04/07/2018 Telephone [facility] [address] [facility] 1st [place] [address] Kate Johnson, RT Social History Tobacco Use Types Packs/Day Years Used Date Smoking Tobacco: Never Smokeless Tobacco: Never Alcohol Use Standard Drinks/Week Comments No 0 (1 standard drink = 0.6 oz pur e alcohol) Comments No Sex and Gender Information Value Date Recorded Sex Assigned at Not on file Legal Sex Female 11:49 PM DIRECTOR FIELD SERVICES Gender Identity Not on file Sexual [...] DT MRSA 12/27/2021 03/06/2022 09/02/2022 3:05 AM DIRECTOR FIELD SERVICES documented as of this encounter Care Teams Postdoctoral Scientist Relationship Specialty Start Date End Date Unknown, Notinfile PCP - General 08/28/17 06/11/18 Shilpa Frazier DO PCP - General 06/12/18 07/15/21 Ab Melara MD [address] [address] PCP - General Family Medicine 07/16/21 Lidia Barajas MD Anesthesiologist Anesthesiology 01/13/20 documented as of this encounter
--- OUTSIDE RECORDS SUMMARY | 2024-10-18 13:33 | XMS_ITS | Clinical Summary ---
Author Organization [facility] Address [address] [place] [address] Care Team Providers Care Sack Cleaning Hand Name Role Phone Unavailable Primary Care Provider [...] Comments Blood Pressure 152/77 05/21/2019 8:00 AM DEMAND GENERATION MANAGER Pulse 75 05/21/2019 8:00 AM DEMAND GENERATION MANAGER Temperature 36.3 C (97.3 F) 05/21/2019 8:00 AM DEMAND GENERATION MANAGER Respiratory Rate 18 05/21/2019 8:00 AM DEMAND GENERATION MANAGER Oxygen Saturation 98% 05/21/2019 8:00 AM DEMAND GENERATION MANAGER Inhaled Oxygen Concentration - - Weight 108.9 kg (240 lb 1.6 oz) 05/09/2019 6:52 AM DEMAND GENERATION MANAGER Height 172.7 cm (5' 8 ) 04/18/2019 [...]
--- OUTSIDE RECORDS SUMMARY | 2024-10-18 13:33 | XMS_ITS | Encounter Summary ---
Author Organization [facility] Address [address] [place] [address] Care Team Providers Care Giant Tire Repairer Name Role Phone Fiordaliza Snell MD [...] on file Legal Sex Female 2:43 AM CAPTAIN ROOM SERVICE Gender Identity Not on file Sexual Orientation [...] ORDERABLES Final Resu lt Performing Organization Address [facility] Phone Number INTERFACE SYSTEM Refer to clinic/hospital [...] ORDERABLES Final Resul t Performing Organization Address [facility] Phone Number INTERFACE SYSTEM Refer to clinic/hospital department * (ABNORMAL) AMYLASE (10/13/2004 9:56 AM CDT) AMYLASE 24(L) 28 - 100 U/L INTERFACE SYSTEM 10/13/2004 9:56 AM CDT Russell Marie CHEMISTRY ORDERABLES Final Resul t Performing Organization Address [facility] Phone Number INTERFACE SYSTEM Refer to clinic/hospital department * LIPASE (10/13/2004 9:56 AM CDT) LIPASE 20 13 - 60 U/L INTERFAC E SYSTEM 10/13/2004 9:56 AM CDT [facility] CHEMISTRY ORDERABLES Final Resul t Performing Organization Address [facility] Phone Number INTERFACE SYSTEM Refer to clinic/hospital [...] K/uL INTERFACE SYSTEM 10/13/2004 5:00 AM CDT [facility] HEMATOLOGY ORDERABLES Final Resu lt Performing Organization Address [facility] Phone Number INTERFACE SYSTEM Refer to clinic/hospital [...] ORDERABLES Final Resu lt Performing Organization Address [facility] Phone Number INTERFACE SYSTEM Refer to clinic/hospital department * (ABNORMAL) C-REACTIVE PROTEIN (10/13/2004 5:00 AM CDT) CRP 1.3(H) 0.0 - 0.8 mg/dL INTERFACE SYSTEM 10/13/2004 5:00 AM CDT Russell Salazar CHEMISTRY ORDERABLES Final Resul t Performing Organization Address [facility] Phone Number INTERFACE SYSTEM Refer to clinic/hospital [...] URINE ORDERABLES Final Result Performing Organization Address [facility] de Phone Number INTERFACE SYSTEM Refer [...] ORDERABLES Final Resu lt Performing Organization Address [facility] Phone Number INTERFACE SYSTEM Refer to clinic/hospital department * (ABNORMAL) C-REACTIVE PROTEIN (10/12/2004 9:17 PM CDT) CRP 1.4(H) 0.0 - 0.8 mg/dL INTERFACE SYSTEM 10/12/2004 9:[address] MD CHEMISTRY ORDERABLES Final Resul t Performing Organization Address [facility] Phone Number INTERFACE SYSTEM Refer to clinic/hospital department * LIPASE (10/12/2004 9:17 PM CDT) LIPASE 41 13 - 60 U/L INTERFAC E SYSTEM 10/12/2004 9:[address] MD CHEMISTRY ORDERABLES Final Resul t Performing Organization Address [facility] de Phone Number INTERFACE SYSTEM Refer to clinic/hospital department * AMYLASE (10/12/2004 9:17 PM CDT) AMYLASE 39 28 - 100 U/L INTERFACE SYSTEM Comment:Previous specimen us ed; approved by floor. 10/12/2004 9:[address] MD CHEMISTRY ORDERABLES Final Resul t Performing Organization Address [facility] Phone Number INTERFACE SYSTEM Refer to clinic/hospital [...] ORDERABLES Final Resu lt Performing Organization Address [facility] Phone Number INTERFACE SYSTEM Refer to clinic/hospital [...] ORDERABLES Final Resu lt Performing Organization Address [facility] Phone Number INTERFACE SYSTEM Refer to clinic/hospital [...] ORDERABLES Final Resul t Performing Organization Address [facility] Phone Number INTERFACE SYSTEM Refer to clinic/hospital department documented in this encounter Visit Diagnoses Diagnosis Abdominal pain, right lower quadrant- Primary documented in this encounter Additional Health Concerns Infection Onset Date Last Indicated Resolved Time R/O COVID-19 07/02/2020 07/02/2020 07/02/2020 8:53 PM CAPTAIN ROOM SERVICE MRSA Comment:Resolved per Type and Duration of Precautions Recommended for Selected Infections and Conditions document 2023 update 07/02/2020 07/02/2020 03/16/20 10:58 AM CDT R/O COVID-19 07/10/2020 07/10/2020 07/10/2020 5:01 PM CAPTAIN ROOM SERVICE documented as of this encounter Care Teams Giant Tire Repairer Relationship Specialty Start Date End Date Fiordaliza Snell MD PCP - General Family Practice 09/09/22 documented as of this encounter
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
--- OUTSIDE RECORDS SUMMARY | 2024-10-18 13:33 | XMS_ITS | Encounter Summary ---
Author Organization [facility] Address [address] [place] [address] Care Team Providers Care Front Office Representative Name Role Phone Fiordaliza Snell MD Primary Care Provider Encounter Details Date Type Department Care Team (Latest Contact Info) Description 11/13/2004 Outpatient Historical [facility] RONALD Garcia, Anjali Gupta MD NO ADDRESS ON FILE LUMP OR MASS IN BREAST (Primary Dx) Social History Tobacco Use Types Packs/Day Years Used Date Smoking Tobacco: Never Assessed Comments Unknown Sex and Gender Information Value Date Recorded Sex Assigned at Not on file Legal Sex Female 2:43 AM ICE SKATING COACH Gender Identity Not on file Sexual Orientation Not on file documented as of this encounter Plan of Treatment Not on file documented as of this encounter Visit Diagnoses Diagnosis Lump or mass in breast- Primary documented in this encounter Additional Health Concerns Infection Onset Date Last Indicated Resolved Time R/O COVID-19 07/02/2020 07/02/2020 07/02/2020 8:53 PM ICE SKATING COACH MRSA Comment:Resolved per Type and Duration of Precautions Recommended for Selected Infections and Conditions document 2023 update 07/02/2020 07/02/2020 03/16/20 24 10:58 AM CDT R/O COVID-19 07/10/2020 07/10/2020 07/10/2020 5:01 PM ICE SKATING COACH documented as of this encounter Care Teams Front Office Representative Relationship Specialty Start Date End Date Fiordaliza Snell MD PCP - General Family Practice 09/09/22 documented as of this encounter
--- OUTSIDE RECORDS SUMMARY | 2024-10-18 13:33 | XMS_ITS | Continuity of Care Document ---
Author Organization [facility] Address [address] [place] [address] Phone Care Team Providers Care Clinic Assistant Name Role Phone Shreyas Dumont MD Unavailable Unavailable Allergies, Adverse Reactions, Alerts Substance Reaction Status Criticality Sulfa (Sulfonamide Antibiotics) Hives Active No Information Penicillins Hives Active No Information TAPE, OCCLUSIVE ADHESIVE Active No Information Penicillins Unknown Active No Information Medications Medication Instructions Dosage Effective Dates (start - stop) Status Comments Samburg 5 mg-325 mg tablet take 1-2 tabs [...] VIEWS 2015 OFFICE/OUTPATIENT VISIT EST OFFICE/OUTPATIENT VISIT [facility] Advance Directives Directive Yes / No Effective Date File Name No Information Encounters Encounter Description Practice Location Reason(s) For Visit Diagnoses Date Provider Providers Copied on Encounter [facility], [address], [place], [address], [place] [phone] [facility] [place] Ulnar neuropathy at elbow, leftPostopera tive visit 0 7 Tim Pritchett. [address], [place], [place], [id number] . tel: [phone] [facility], [address] [address], [place], [address], [place] tel:[phone] [facility] Ulnar neuropathy at elbow, left 8 7 Paul Handley. [address], [place], [place], [id number] . tel: [phone] [facility], [address] [address], [place], [address], [place] [phone] [facility] Numbness of left hand 7- 7 Tim Pritchett. [address], [place], [place], [id number] . tel: [phone] [facility], [address] [address], [place], [address], [place] [phone] [facility] [place] Postoperative visit 6 Tim Pritchett. [address], [place], [place], [id number] . tel: [phone] [facility], [address] [facility], [place], [address], [place] tel:[phone] [facility] Ulnar neuropathy at elbow, left 6 Tim Pritchett. [address], [place], [place], [id number] . tel: [phone] OFFICE/OUTPA TIENT VISIT EST [facility], [address], [place], [address], [place] tel:[phone] [facility] [place] Pain in left elbowUlnar neuropathy at elbow, left 6 Tim Pritchett. [address], [place], [place], [id number] . tel: [phone] OFFICE/OUTPA TIENT VISIT EST [facility], [address], [place], [address], [place] [phone] [facility] [place] Pain in left elbowUlnar neuritis, left 6 Tim Pritchett. [address], [place], [place], [id number] . tel: [phone] Referring Provider: Migue Caruso [facility] [address], [place], [address]. [phone] OFFICE/OUTPA TIENT VISIT [facility], [address], [place], [address], [place] [phone] [facility] evnv left thumb/hand (chief complaint) Primary osteoarthriti s of first carpometacarp al joint of left handDe Quervain's tenosynovitis 6 Ciera Brice. [address] [place], [place], [id number] . tel: [phone] Family History Family Member Type Diagnosis Age [...]
--- OUTSIDE RECORDS SUMMARY | 2024-10-18 13:33 | XMS_ITS | Clinical Summary ---
Author Organization [facility] Address [address] [facility] [place] [address] Care Team Providers Care Government Affairs Researcher Name Role Phone Lidia Barajas MD Unavailable Shilpa Gandhi MD Unavailable Iron Galindo PA-C Primary Care Provide r Cresencio Ghosh MD Unavailable [phone] Source Comments [facility],non-owned Affiliates and Associated Physician Practices is amultiple site organization consisting of ambulatory clinics and hospital sitesin [place], [place], [place] and [place]. This disclosure is being madepursuant to the Care Everywhere program and may not contain all information available regarding this patient. Last updated 18.[facility] Allergies Active Allergy Reactions Criticality Noted Date [...] needed For pain. 02/22/20 22 Active Multiple Vitamins-Barrow als (Thera-M) TABS Take 1 (one) tablet by mouth once daily Active cyclobenzaprin e (Flexeril) 5 MG tablet Take 1 (one) tablet by mouth 3 times daily as needed (spasms) 90 tablet 2 09/19/19 23 Active Nystop 186283 UNIT/GM powder Apply to affected area 2 [...] Description 09/30/2024 8:15 AM CDT Video Visit [facility] [address] [place] [address] Cresencio Ghosh MD YAJAIRA on CPAP ; PLMD (periodic limb movement disorder); Restless legs syndrome (RLS); Malaise and fatigue; Hypertension, unspecified type; Insomnia due to medical condition; Circadian rhythm sleep disorder, irregular sleep wake type 09/29/2024 Refill [facility] [address] [place] [address] Cresencio Ghosh MD Refill Request 08/24/2024 12:05 PM PRODUCTION DIRECTOR - 08/24/2024 11:59 PM PRODUCTION DIRECTOR Hospital Encounter [facility] MRI [address] [place] [address] Panchito Walters, DO Discharge Disposition: Home or Self Care 08/24/2024 Travel 08/23/2024 2:04 PM PRODUCTION DIRECTOR - 08/23/2024 11:59 PM PRODUCTION DIRECTOR Hospital Encounter [facility] MRI [address] [place] [address] Panchito Walters, DO Discharge Disposition: Home or Self Care 08/23/2024 Travel 07/28/2024 Refill [facility] [address] [place] [address], [address] [place] [address] Cresencio Ghosh MD Refill Request from Last [...] care, and heating? Not very hard 04/02/2023 [facility] of Occupat ional Health - Occupational Stress [...] place to sleep or slept in a chcf (including now)? No 04/02/2023 Comments No Sex and Gender Information Value Date Recorded Sex Assigned at Not on file Legal Sex Female 6:02 AM PRODUCTION DIRECTOR Gender Identity Not on file Sexual Orientation Not on file Occupation Industry Job Start Date Job End Date Disabled Not on file Not on file Not on file Last Filed Vital Signs Vital Sign Reading Time Taken Comments Blood Pressure 157/91 05/07/2023 9:23 AM PRODUCTION DIRECTOR Pulse 86 05/07/2023 9:23 AM PRODUCTION DIRECTOR Temperature 36.3 C (97.3 F) 05/07/2023 9:23 AM PRODUCTION DIRECTOR Respiratory Rate 18 04/02/2023 3:00 PM CDT Oxygen Saturation 95% 05/07/2023 9:23 AM PRODUCTION DIRECTOR Inhaled Oxygen Concentration 97% 02/21/2021 1 0:15 [...] < 140/90 Blood Pressure 157/91(2022 9:23 AM PRODUCTION DIRECTOR) No Sierra Steiner Yearly PCP visit Lifestyle No White, Ava A Have labs drawn Lifestyle No White, Ava A Take recommended medication(s) Lifestyle No White, Ava A Use safety retraint in car Lifestyle No White, Ava A Complete Health Maintenance Screenings Lifestyle No White, Ava A Medical Devices Implanted Type Area Spindle Sander Device Identifier Shelf Expiration Date Model / Serial / Lot Nevro Neurostimulator Senza [id number] (Implanted 2016) Floseal Hemostatic Matrix Implanted:Qty: 1 on 04/02/2019 by Maicol Mcneil DO at [facility] N/A: Spine [employer] 08/10/2020 [id number] / / [id number] Graft Tissue Drgn + Bvn Clgn Mtrx 1x1in Implanted:Qty: 1 on 04/02/2019 by Maciol Mcneil DO at [facility] N/A: Spine Integra Neurosciences 04/29/2021 [id number] / / [id number] Seal Tisseel Prima 1 Prefil Frz 4ml - [id number] Implanted:Qty: 1 on 04/02/2019 by Maicol Mcneil DO at [facility] N/A: Spine [employer] 08/27/2020 [id number] / [id number] / [id number] Impl Inj 1ml Coaptite Syr Bulk Agnt Implanted:Qty: 2 on 04/11/2020 by Dave Aparicio MD at [facility] N/A: Bladder [employer] Scimed 10/25/2022 [id number] / / [id number] Impl Inj 1ml Coaptite Syr Bulk Agnt Implanted:Qty: 2 on 02/05/2022 by Dave Aparicio MD at [facility] Bladder [employer] Scimed 10/16/2024 [id number] / / [id number] Stent Uret 7fr 80cm Str Cls Tip Llok Implanted:Qty: 1 on 09/03/2022 by Nel Cerna DO at [facility] Ureter [employer] Scimed 12/23/2025 [id number] / / [id number] Description:bilateral ureter s Procedures Procedure Name Priority Date/Time Associated Diagnosis Comments MRI ABDOMEN WWO CONTRAST Routine 08/24/2024 1:52 PM PRODUCTION DIRECTOR Cyst of pancreas Splenomegaly, not elsewhere classified BASIC METABOLIC PANEL (CALCIUM TOTAL) Routine 04/02/2023 2:31 AM CDT ENDOSCOPY, COLON, SCREENING Routine 11/29/2019 MAMMO BILAT SCREENING Routine 09/18/2017 9:53 AM CDT Encounter for screening for malignant neoplasm of breast from Last 3 Months or Most Recently Relevant to Health Maintenance Results * MRI Abdomen Wwo Contrast (08/24/2024 1:52 PM PRODUCTION DIRECTOR) Anatomical Region Laterality Modality Abdomen Magnetic Resonan ce 08/24/2024 3:05 PM PRODUCTION DIRECTOR Impressions 08/24/2024 4:53 PM PRODUCTION DIRECTOR Impression: 1.Multiple cysts throughout the pancreas, some [...] report was drafted by Pal Hirsch MD (certified residential medication aide) ISarbjit MD have personally reviewed and interpreted this examination/study. > Interpreting Provider: Sarbjit Hardwick MD on 08/24/2024 4:53 PM Narrative 08/24/2024 4:53 PM PRODUCTION DIRECTOR PROCEDURE: MRI ABDOMEN WWO CONTRAST, DATE/TIME OF EXAM: 08/24/2024 1:52 PM, LOCATION [facility] INDICATION: K86.2: Cyst of [...] DATE/TIME OF EXAM: 08/24/2024 1:52 PM, LOCATION [facility] INDICATION: K86.2: Cyst of [...] report was drafted by Pal Hirsch MD (certified residential medication aide) ISarbjit MD have personally reviewed and interpreted this examination/study. > Interpreting Provider: Sarbjit Hardwick MD on 08/24/2024 4:53 PM us Panchito Walters DO MR ORDERABLES Final Result * (ABNORMAL) BASIC METABOLIC PANEL (CALCIUM TOTAL) (04/02/2023 2:31 AM CDT) BUN 16 7 - 26 mg/dL 04/02/2023 3:07 AM [facility] Creatinine 0.69 0.56 - 0.96 mg/dL 04/02/2023 3:07 AM [facility] Sodium 133(L) 136 - 145 mmol/L 04/02/2023 3:07 AM [facility] Potassium 3.9 3.5 - 4.5 mmol/L 04/02/2023 3:07 AM [facility] Chloride 102 98 - 107 mmol/L 04/02/2023 3:07 AM [facility] CO2 26 22 - 29 mmol/L 04/02/2023 3:07 AM [facility] Glucose 122(H) 70 - 115 mg/dL 04/02/2023 3:07 AM CDT [facility] Calcium 8.3(L) 8.4 - 10.2 mg/dL 04/02/2023 3:07 AM [facility] Anion Gap 5(L) 6 - 16 04/02/2023 3:07 AM [facility] BUN/Creatinine Ratio 23 7 - 23 04/02/2023 3:07 AM T [facility] Osmolality Calculated 278 275 - 295 mOsm/kg 04/02/2023 3:07 AM [facility] eGFR by CKD-EPI >90 >=90 mL/min/1.7 3 m2 04/02/2023 3:07 AM [facility] Blood BLOOD SPECIMEN / Unknown Lab Venipuncture / Unknown 04/02/2023 2:31 AM CDT 04/02/2023 2:39 AM CDT us Missy Sutherland MD LAB - CHEMISTRY ORDERABLES Final Result Performing Organization Address City/State/[facility] Co de Phone Number [facility] [address] [place] [phone], [facility] [phone] * ENDOSCOPY, COLON, SCREENING (11/29/2019) us Provider [...] participate in the care of your patient. [facility] utilizes [employer] as a reminder system to notify patients of their next recommended mammogram. Narrative 09/23/2017 9:22 AM CDT EXAMINATION: Digital screening mammogram on 09/18/2017. Low-dose full-field digital breast tomosynthesis examination was performed with synthetic 2D images and 3D acquisitions. Computer assisted detection was utilized. PRIOR: Mammogram from [facility] on 11/13/2004. BREAST PARENCHYMAL DENSITY: The breasts are almost entirely fatty. RISK ASSESSMENT CALCULATION: Based on the information provided by your patient, her lifetime risk of breast cancer is average (<15%). Additional quantitative risk model data and patient history details have been scanned as a document/letter in [facility] electronic medical record (media tab). [...] 04/01/2023 04/01/2023 MDRO 05/08/2023 05/08/2023 Insurance [employer] [facility] MA[facility]GED MEDICARE ADV [facility] MEDICARE ADV Advance Directives Documents on File Type Date Recorded Patient Business Solutions Director Expl anation Adv Directive/Living Will/POA 09/16/2022 3:23 [...] 4:01 AM 05/11/2020 8:00 PM Care Teams Government Affairs Researcher Relationship Specialty Start Date End Date Iron Galindo PA-C [address] [address] [address] [place] [address] PCP - General Physician Test Driver 02/12/23 Lidia Barajas MD [address] [place] [address], [phone] Anesthesiology-Pain Management 06/03/19 Shilpa Gandhi MD [address] [place], [place] [address] [place] [id number] Oncology 06/03/19 Cresencio Ghosh MD [address] [place] [address] [place] [address] Sleep Medicine 09/29/24
--- OUTSIDE RECORDS SUMMARY | 2024-10-18 13:33 | XMS_ITS | Encounter Summary ---
Author Organization [facility] Address [address] [place] [address] Care Team Providers Care Skimmer Name Role Phone Fiordaliza Snell MD Primary Care Provider Encounter Details Date Type Department Care Team (Late st Contact Info) Description 04/18/2003 Outpatient Historical [facility] Otilia Florentino MD [facility] [place] [address] Er, Authorized P NO ADDRESS ON FILE ABDOMINAL PAIN RLQ (Primary Dx) Social History Tobacco Use Types Packs/Day Years Used Date Smoking Tobacco: Never Assessed Comments Unknown Sex and Gender Information Value Date Recorded Sex Assigned at Not on file Legal Sex Female 2:43 AM PROJECT MGR Gender Identity Not on file Sexual Orientation Not on file documented as of this encounter Plan of Treatment Not on file documented as of this encounter Visit Diagnoses Diagnosis Abdominal pain, right lower quadrant- Primary documented in this encounter Additional Health Concerns Infection Onset Date Last Indicated Resolved Time R/O COVID-19 07/02/2020 07/02/2020 07/02/2020 8:53 PM PROJECT MGR MRSA Comment:Resolved per Type and Duration of Precautions Recommended for Selected Infections and Conditions document 2023 update 07/02/2020 07/02/2020 03/16/20 24 10:58 AM CDT R/O COVID-19 07/10/2020 07/10/2020 07/10/2020 5:01 PM PROJECT MGR documented as of this encounter Care Teams Skimmer Relationship Specialty Start Date End Date Fiordaliza Snell MD PCP - General Family Practice 09/09/22 documented as of this encounter
--- OUTSIDE RECORDS SUMMARY | 2024-10-18 13:33 | XMS_ITS | Encounter Summary ---
Author Organization [facility] Address [address] [place] [address] Care Team Providers Care Corporate Events Director Name Role Phone Fiordaliza Snell MD [...] on file Legal Sex Female 2:43 AM BUSINESS INFORMATION ANALYST Gender Identity Not on file Sexual Orientation Not on file documented as of this encounter Plan of Treatment Not on file documented as of this encounter Visit Diagnoses Diagnosis Chronic salpingitis and oophoritis- Primary documented in this encounter Additional Health Concerns Infection Onset Date Last Indicated Resolved Time R/O COVID-19 07/02/2020 07/02/2020 07/02/2020 8:53 PM BUSINESS INFORMATION ANALYST MRSA Comment:Resolved per Type and Duration of Precautions Recommended for Selected Infections and Conditions document 2023 update 07/02/2020 07/02/2020 03/16/20 24 10:58 AM CDT R/O COVID-19 07/10/2020 07/10/2020 07/10/2020 5:01 PM BUSINESS INFORMATION ANALYST documented as of this encounter Care Teams Corporate Events Director Relationship Specialty Start Date End Date Fiordaliza Snell MD PCP - General Family Practice 09/09/22 documented as of this encounter
--- OUTSIDE RECORDS SUMMARY | 2024-10-18 13:33 | XMS_ITS | Encounter Summary ---
Author Organization [facility] Address [address] [place] [address] Care Team Providers Care Nuclear Plant Operator Name Role Phone Fiordaliza Snell MD Primary Care Provider Encounter Details Date Type Department Care Team (Late st Contact Info) Description 05/06/2001 Outpatient Historical [facility] Pratik Fisher [place] [facility] [place] [address] Er, Authorized P NO ADDRESS ON FILE ABDOMINAL PAIN OTHER SPEC SITE (Primary Dx) Social History Tobacco Use Types Packs/Day Years Used Date Smoking Tobacco: Never Assessed Comments Unknown Sex and Gender Information Value Date Recorded Sex Assigned at Not on file Legal Sex Female 2:43 AM SCRAP KETTLE TENDER Gender Identity Not on file Sexual Orientation Not on file documented as of this encounter Plan of Treatment Not on file documented as of this encounter Visit Diagnoses Diagnosis Abdominal pain, other specified site- Primary documented in this encounter Additional Health Concerns Infection Onset Date Last Indicated Resolved Time R/O COVID-19 07/02/2020 07/02/2020 07/02/2020 8:53 PM SCRAP KETTLE TENDER MRSA Comment:Resolved per Type and Duration of Precautions Recommended for Selected Infections and Conditions document 2023 update 07/02/2020 07/02/2020 03/16/20 24 10:58 AM CDT R/O COVID-19 07/10/2020 07/10/2020 07/10/2020 5:01 PM SCRAP KETTLE TENDER documented as of this encounter Care Teams Nuclear Plant Operator Relationship Specialty Start Date End Date Fiordaliza Snell MD PCP - General Family Practice 09/09/22 documented as of this encounter
--- OUTSIDE RECORDS SUMMARY | 2024-10-18 13:34 | XMS_ITS | Referral Summary ---
Author Organization [facility] Address [address] [place] [address] Care Team Providers Care Metal Building Assembler Name Role Phone Lidia Barajas MD Unavailable [...] for pain 42 tablet 2 Active multivit cswnxnna-szfa-XQ-c alcium (THERA-M) 9 mg iron-400 mcg tabletIndications: [...] (10/24/2021): Added automatically from request for surgery [id number] Postlaminectomy syndrome, lumbar region 10/25/19 Overview (10/24/2021): Added automatically from request for surgery [id number] Assessment & Plan (07/03/2022 3:48 PM FRONT COUNTER ATTENDANT): Ms. Mcnulty is doing well following lumbar [...] (10/24/2021): Added automatically from request for surgery [id number] Other chest pain 01/19/2020 Assessment & Plan [...] need for exchange this admission Suprapubic catheter ([facility]) [...] (11/25/2019): Added automatically from request for surgery [id number] Chronic lumbar radiculopathy 01/21/2019 Chronic back pain 01/21/2019 Spinal stenosis of lumbar region with radiculopa thy 12/04/2018 Assessment & Plan (07/18/2021 10:23 AM FRONT COUNTER ATTENDANT): Assessment Healed fusion L2-5 severe retrolisthesis with [...] (06/18/2018): Added automatically from request for surgery [id number] Assessment & Plan (12/04/2018 3:42 PM CDT): Healing fusion C6-7 Continued observation. Assessment & Plan (08/12/2018 10:35 AM FRONT COUNTER ATTENDANT): Assessment Healing fusion C6-7 Plan Talked about do's and don'ts she is still to maintain her initial restrictions and return in 6 weeks for an x-ray Assessment & Plan (06/25/2018 2:43 PM FRONT COUNTER ATTENDANT): Angelina was recently hospitalized at [facility] and diagnosed with a disc osteophyte [...] (06/18/2018): Added automatically from request for surgery [id number] Cervical pain (neck) 06/13/2018 Asthma 11/13/2013 Overview [...] often do you attend chur ch or hinduism services? More than 4 times per year 03/07/2022 Do you belong to any clubs o r organizations such as rastafarian groups, unions, fraternal or athletic groups, or [...] place to sleep or slept in a group home (including now)? No 03/07/2022 Comments No Sex and Gender Information Value Date Recorded Sex Assigned at Not on file Legal Sex Female 11:49 PM FRONT COUNTER ATTENDANT Gender Identity Not on file Sexual Orientation [...] Plan Chronic Care Management Worsening( 10:12 AM FRONT COUNTER ATTENDANT) Milvia Mireles RN Note: Problem: Chronic Pain Goals: 1. Minimize further functional decline 2. Maximize quality of life 3. Control pain Strategies: - Activity/exercise program recommendation - Conservative stepwise pain medicine strategy with multi-disciplinary approach - Recommend healthy lifestyle strategies and compensatory methods as needed Medical Devices Implanted Type Area Music Researcher Device Identifier Shelf Expiration Date Model / Serial / Lot Spinal Cord Stimulator-2016 Implanted:01/28 (Quantity not on file) Spinal Cord Stimulator Left: Hip Nevro Spinal Cord Stimulation System [id number] / / Description:Closed Bore only 1.5T or [...] ensure it has returned to pre-MRI settings. [employer].to Inc 700-025 I Factor Allograft Putty Syringe Graft 2.5cc Bone - [id number] Implanted:Qty: 1 on 07/03/2018 by Zachary Rothman MD at [facility] N/A: Spine Cervical [employer] Inc 03/29/2021 700-025 / / [id number] Plate 1-Level 14 Mm Cervical - [id number] Implanted:Qty: 1 on 07/03/2018 by Zachary Rothman MD at [facility] N/A: Spine Cervical [employer] 30-0114 / / Screw 4.0x14mm Self Drilling Variable - [id number] Implanted:Qty: 4 on 07/03/2018 by Zachary Rothman MD at [facility] N/A: Spine Cervical [employer] [id number] / / Cage Spinal [id number] 7 Degree Porous Coated Latex Free - [id number] Implanted:Qty: 1 on 07/03/2018 by Zachary Rothman MD at [facility] N/A: Spine Cervical Spinal Elements [id number] / / Depuy Synthes Spine [id number] Substitute Bone Graft Fibergraft Gps Medium Putty 6cc - [id number] Implanted:Qty: 1 on 11/29/2021 by Dave Louis MD at [facility] N/A: Lumbar-Sa cral Spine Depuy Synthes Spine [id number] 10/18/2023 [id number] / / [id number] B[employer] International Inc Osteosponge Allograft Chips Radiolucent Thk4-10mm Graft 30cc Bone [id number] - [id number] - [id number] Implanted:Qty: 1 on 11/29/2021 by Dave Louis MD at [facility] N/A: Lumbar-Sa cral Spine [employer] Inc 10/14/2024 [id number] / [id number] / Depuy Synthes Spine Cage Post Spinal 4d Plif Ti [id number] - [id number] Implanted:Qty: 1 on 11/29/2021 by Dave Louis MD at [facility] N/A: Lumbar-Sa cral Spine Depuy Synthes Spine [id number] 07/30/2024 [id number] / / [id number] Depuy Synthes Spine Expedium 5.5mm 80mm Line Prebent Rodney Spinal Titanium Nonsterile [id number] - [id number] Implanted:Qty: 1 on 11/29/2021 by Dave Louis MD at [facility] N/A: Lumbar-Sa cral Spine Depuy Synthes Spine [id number] / / Depuy Synthes Spine Expedium 5.5mm 85mm Line Prebent Rodney Spinal Titanium Nonsterile [id number] - [id number] Implanted:Qty: 1 on 11/29/2021 by Dave Louis MD at [facility] N/A: Lumbar-Sa cral Spine Depuy Synthes Spine [id number] / / Depuy Synthes Spine Expedium 5.5mm 45mm Polyaxial Spine Screw Bone Titanium 5.5mm Rodney [id number] - [id number] Implanted:Qty: 2 on 11/29/2021 by Dave Louis MD at [facility] N/A: Lumbar-Sa cral Spine Depuy Synthes Spine [id number] / / Depuy Synthes Spine Expedium 6.5mm 45mm Polyaxial Spine Screw Bone Titanium 5.5mm Rodney [id number] - [id number] Implanted:Qty: 3 on 11/29/2021 by Dave Louis MD at [facility] N/A: Lumbar-Sa cral Spine Depuy Synthes Spine [id number] / / Depuy Synthes Spine Expedium 1 Inner Monoaxial Spine Screw Set Titanium [id number] - [id number] Implanted:Qty: 6 on 11/29/2021 by Dave Louis MD at [facility] N/A: Lumbar-Sa cral Spine Depuy Synthes Spine [id number] / / Depuy Synthes Spine Expedium 7mm 45mm 1 Innie Polyaxial Spine Screw Bone Titanium [id number] - [id number] Implanted:Qty: 1 on 11/29/2021 by Dave Louis MD at [facility] N/A: Lumbar-Sa cral Spine Depuy Synthes Spine [id number] / / Procedures Procedure Name Priority Date/Time [...] 11/29/2019 8:04 AM Admit Type: Inpatient Room: [facility] 4 Date of : 1965 Instrument [...] the bowel preparation was evaluated usingthe BBPS (Thornton Bowel Preparation Scale) with scores of: Right [...] CDT) Hep A IgM Nonreactive Nonreactive [facility] Comment: Interpretive Data: If Hep A IgM Ab is reported as Equivocal, a new sample should be drawn in two weeks for testing. Current interpretive data was last revised on 19. Hep B core IgM Nonreactive Nonreactive [facility] Comment: Interpretive Data If HepB Core IgM Ab is reported as Equivocal, a new sample should be drawn in two weeks for testing. Current interpretive data was last revised on 19. Hep C Ab Nonreactive Nonreactive [facility] Comment: Interpretive Data Nonreactive: Antibodies to [...] revised on 2019. HepBsAg Nonreactive Nonreactive [facility] Blood specimen (specimen) 11/17/2019 4:13 AM CDT 11/17/2019 4:31 AM CDT [facility] MICROBIOLOGY - GENERAL ORDERABLES Final Result [facility] Zahraa Joshi Seth Department [place] [address] from Last 3 Months or Most Recently Relevant to Health Maintenance Insurance UHC MEDICARE ADVANTAGE [facility] MEDICARE [facility] Address: [address] [place] [address] [place] [address] [facility] MEDICARE [facility] MEDICARE ADVANTAGE Advance Directives For more information, please contact: [phone] Documents on File Type Date Recorded Patient Svp Chief Marketing Officer Expl anation Power of Door Builder 11/29/2021 11:46 AM * Full Code (Latest [...] First Alternate Health Care Agent Care Teams Metal Building Assembler Relationship Specialty Start Date End Date Devabhaktuni, Ramadevi R., MD [address] [address] PCP - General Family Medicine 07/16/21 Lidia Barajas MD Anesthesiologist Anesthesiology 01/13/20
--- OUTSIDE RECORDS SUMMARY | 2024-10-18 13:34 | XMS_ITS | Encounter Summary ---
Author Organization [facility] Health Address [address] [place] [address] Care Team Providers Care Sap Abap Programmer Name Role Phone Shilpa Frazier DO Primary Care Provider [phone] Lidia Barajas MD Unavailable Shilpa Gandhi MD Unavailable Massiel Melara MD Primary Care Provider [phone] Shilpa Frazier DO Primary Care Provider [phone] Iron Galindo PA-C Primary Care Provide r Cresencio Ghosh MD Unavailable [phone] Cresencio Ghosh MD Unavailable [phone] Encounter Details Date Type Department Care Team (Late st Contact Info) Description 01/23/2015 Therapy Visit EXTERNAL NON-[facility] DEPT Sunny Reynoso MD [address] [place] [address] Social History Tobacco Use Types Packs/Day Years Used Date Smoking Tobacco: Never Alcohol Use Standard Drinks/Week Comments Yes 0 (1 standard drink = 0.6 oz pur e alcohol) 1-2 year Comments Unknown Sex and Gender Information Value Date Recorded Sex Assigned at Not on file Legal Sex Female 6:02 AM ARCHITECTURAL ADMINISTRATIVE ASSISTANT Gender Identity Not on file [...] NO NEED FOR ISOLATION AT THIS TIME; MACHINE ASSEMBLER INF PREV [id number] 10/07/2019 10/07/2019 09/05/19 8:37 AM ARCHITECTURAL ADMINISTRATIVE ASSISTANT MRSA 10/07/2019 10/07/2019 01/29/2020 8:33 AM CDT MRSA 01/28/2020 01/28/2020 03/20/2020 7:45 AM CDT COVID-19 Under Investigation 04/06/2020 04/08/2020 04/09/2020 5:20 AM CDT MRSA 04/11/2020 04/11/2020 12/25/2020 9:00 AM CDT COVID-19 Under Investigation 08/07/2020 08/07/2020 08/08/2020 3:45 PM ARCHITECTURAL ADMINISTRATIVE ASSISTANT COVID-19 Under Investigation 08/11/2020 08/11/2020 08/12/2020 4:08 AM ARCHITECTURAL ADMINISTRATIVE ASSISTANT MRSA 05/13/2021 02/05/2022 09/04/2022 8:37 AM ARCHITECTURAL ADMINISTRATIVE ASSISTANT MRSA Hx 09/04/2022 09/04/2022 MDRO Comment:04/01/23 MDRO resolved, ES 02/23/2023 02/23/20232022 7:16 AM CDT MDRO Hx 04/01/2023 04/01/2023 MDRO 05/08/2023 05/08/2023 documented as of this encounter Care Teams Sap Abap Programmer Relationship Specialty Start Date End Date Shilpa Frazier DO [address] [place], [place] [id number] PCP - General Family Medicine 08/06/17 07/31/20 Massiel Melara MD [address] [place] [address] PCP - General Family Medicine 08/01/20 10/01/20 Shilpa Frazier DO [address] [place] [phone] PCP - General Family Medicine 10/02/20 10/03/20 Iron Galindo PA-C [address] [facility] [address] [place], [place] [id number] PCP - General Physician Mud Plant Operator 02/12/23 Cresencio Ghosh MD [address] [place] [id number] PCP - [facility] P4P 12/29/23 09/14/24 Lidia Barajas MD [address] [facility], [address] Anesthesiology-Pain Management 06/03/19 Shilpa Gandhi MD [address] [facility] [address] [place] [id number] Oncology 06/03/19 Cresencio Ghosh MD [address] [place] [id number] Sleep Medicine 09/29/24 documented as of this encounter
--- OUTSIDE RECORDS SUMMARY | 2024-10-18 13:34 | XMS_ITS | Continuity of Care Document ---
Author Organization [facility] Address [address] [place] [address] Phone Care Team Providers Care Bioengineer Name Role Phone Jon Rodriguez MD Unavailable Unavailable Advance Directives Directive Yes / No Effective Date File Name No Information Encounters Encounter Description Practice Location Reason(s) For Visit Diagnoses Date Provider Providers Copied on Encounter [facility], [address] [facility], [place], [place], [id number], tel:[phone] [facility] LUMBAGO 0 Michael Webb. [address] [place] [address], [id number], . tel:[phone] [facility], [address] [facility], [place], [place], [id number], tel:[phone] [facility] LUMBOSACRAL NEURITIS NOS 0 Ranjith Salazar. [address] [place] [address], [id number], . tel:[phone] [facility] [address] [facility], [place], [place], [id number], tel:[phone] [facility] SPINAL STENOSIS-LUMBA R 8 No Information [facility] [address] [facility], [place], [place], [id number], tel:[phone] [facility] JOINT DIS NEC-PELVIS 8 No Information [facility] [address] [place] [address], [id number], tel:[phone] [facility] [place] (Ip) ARTHRODESIS STATUS 7 Michael Webb. [address] [place], [place], [id number], [place]. tel:[phone] [facility], [address] [facility], [place], [place], [id number], [place] tel:[phone] [facility] [place] (Ip) LUMBAR DISC DISPLACEMENT 7 Michael Webb. [address] [facility], [place], [place], [id number], [place]. tel:[phone] [facility], [address] [facility], [place], [place], [id number], [place] tel:[phone] [facility] [place] (Op) PREOP RESPIRATORY EXAM 7 No Information [facility], [address] [facility], [place], [place], [id number], [place] tel:[phone] [facility] [place] (Op) PAIN IN LIMB 7 Michael Webb. [address] [place] [address], [place], [place], [id number], [place]. tel:[phone] [facility], [address] [facility], [place], [place], [id number], [place] tel:[phone] [facility] CERVICALGIA 6 Juliann Gibson. [address], [place], [place], [id number], [place]. tel:[phone] [facility], [address] [place] [address], [id number], [place] tel:[phone] [facility] OTH ADV EFF MED/BIO SUB 6 No Information [facility], [address] [facility], [place], [place], [id number], [place] tel:[phone] [facility] [place] (Er) FALL NOS 2200 6 Monica Tapia. [address], [place], [place], [id number]. tel:[phone] [employer], [address] [facility], [place], [place], [address], [place] tel:[phone] [facility] [place] (Op) HEADACHE 5200 6 Ranjith Salazar. [address], [place], [place], [address], [place]. tel:[phone] [employer], [address] [facility], [place], [place], [address], tel:[phone] [facility] [place] (Op) HEAD INJURY NOS 6 Michael Castellano [address] [place], [place], [id number], . tel:[phone] [employer], [address] [facility], [place], [place], [address], tel:[phone] [facility] [place] (Er) CERVICAL SPINAL STENOSIS 6 Juliann Sauceda [address] [place] [address], [id number], . tel:[phone] [employer], [address] [facility], [place], [place], [address], tel:[phone] [facility] [place] (Er) BRACHIAL NEURITIS NOS 6 Juliann Sauceda [address] [place] [address], [id number], . tel:[phone] [employer], [address] [facility], [place], [place], [address], tel:[phone] [facility] [place] (Ip) FOLLOW-UP SURGERY NOS 4 Michael Castellano [address] [place], [place], [id number], . tel:[phone] [employer], [address] [facility], [place], [place], [address], tel:[phone] [facility] [place] [facility] (Op) COUGH 4 No Information Family History Family Member Type Diagnosis Age At Onset No Information Payers Payer name Insurance type Covered alliance party ID Authoriza tion(s) No Information Social [...]
--- OUTSIDE RECORDS SUMMARY | 2024-10-18 13:34 | XMS_ITS | Clinical Summary ---
Author Organization [facility] al Address [address] [place] [address] Care Team Providers Care Digital Associate Media Director Name Role Phone Lidia Barajas MD Unavailable [...] for pain 42 tablet 2 Active multivit mjvcjuuk-xyhs-MH-c alcium (THERA-M) 9 mg iron-400 mcg tabletIndications: [...] (10/24/2021): Added automatically from request for surgery [id number] Postlaminectomy syndrome, lumbar region 10/25/19 Overview (10/24/2021): Added automatically from request for surgery [id number] Assessment & Plan (07/03/2022 3:48 PM MANAGER COMMUNITY OUTREACH): Ms. Mcnulty is doing well following lumbar [...] (10/24/2021): Added automatically from request for surgery [id number] Other chest pain 01/19/2020 Assessment & Plan [...] need for exchange this admission Suprapubic catheter ([facility]) 11/16/2019 Essential hypertension 11/16/2019 Hypertensive urgency [...] (11/25/2019): Added automatically from request for surgery [id number] Chronic lumbar radiculopathy 01/21/2019 Chronic back pain 01/21/2019 Spinal stenosis of lumbar region with radiculopa thy 12/04/2018 Assessment & Plan (07/18/2021 10:23 AM MANAGER COMMUNITY OUTREACH): Assessment Healed fusion L2-5 severe retrolisthesis with [...] (06/18/2018): Added automatically from request for surgery [id number] Assessment & Plan (12/04/2018 3:42 PM CDT): Healing fusion C6-7 Continued observation. Assessment & Plan (08/12/2018 10:35 AM MANAGER COMMUNITY OUTREACH): Assessment Healing fusion C6-7 Plan Talked about do's and don'ts she is still to maintain her initial restrictions and return in 6 weeks for an x-ray Assessment & Plan (06/25/2018 2:43 PM MANAGER COMMUNITY OUTREACH): Angelina was recently hospitalized at [facility] and diagnosed with a [...] (06/18/2018): Added automatically from request for surgery [id number] Cervical pain (neck) 06/13/2018 Asthma 11/13/2013 Overview [...] Bladder tumor Acute CVA (cerebrovascular a ccident) ([facility]) 12/27/2021 Family History Medical History Relation Name [...] often do you attend chur ch or alevism services? More than 4 times per year 03/07/2022 Do you belong to any clubs o r organizations such as methodist groups, unions, fraternal or athletic groups, or [...] place to sleep or slept in a custodial (including now)? No 03/07/2022 Comments No Sex and Gender Information Value Date Recorded Sex Assigned at Not on file Legal Sex Female 11:49 PM MANAGER COMMUNITY OUTREACH Gender Identity Not on file Sexual Orientation [...] Plan Chronic Care Management Worsening( 10:12 AM MANAGER COMMUNITY OUTREACH) Milvia Mireles RN Note: Problem: Chronic Pain Goals: 1. Minimize further functional decline 2. Maximize quality of life 3. Control pain Strategies: - Activity/exercise program recommendation - Conservative stepwise pain medicine strategy with multi-disciplinary approach - Recommend healthy lifestyle strategies and compensatory methods as needed Medical Devices Implanted Type Area Business Administration Professor Device Identifier Shelf Expiration Date Model / Serial / Lot Spinal Cord Stimulator-2016 Implanted:01/28 (Quantity not on file) Spinal Cord Stimulator Left: Hip Nevro Spinal Cord Stimulation System [id number] / / Description:Closed Bore only 1.5T or [...] Allograft Putty Syringe Graft 2.5cc Bone - [id number] Implanted:Qty: 1 on 07/03/2018 by Zachary Rothman MD at [facility] N/A: Spine Cervical Cer[employer] Inc 03/29/2021 700-025 / / [id number] Plate 1-Level 14 Mm Cervical - [id number] Implanted:Qty: 1 on 07/03/2018 by Zachary Rothman MD at [facility] N/A: Spine Cervical [employer] 30-0114 / / Screw 4.0x14mm Self Drilling Variable - [id number] Implanted:Qty: 4 on 07/03/2018 by Zachary Rothman MD at [facility] N/A: Spine Cervical [employer] 31-4014 / / Cage Spinal [id number] 7 Degree Porous Coated Latex Free - [id number] Implanted:Qty: 1 on 07/03/2018 by Zachary Rothman MD at [facility] N/A: Spine Cervical Spinal Elements [id number] / / Depuy Synthes Spine [id number] Substitute Bone Graft Fibergraft Gps Medium Putty 6cc - [id number] Implanted:Qty: 1 on 11/29/2021 by Dave Louis MD at [facility] N/A: Lumbar-Sa cral Spine Depuy Synthes Spine [id number] 10/18/2023 [id number] / / [id number] [employer] Inc Osteosponge Allograft Chips Radiolucent Thk4-10mm Graft 30cc Bone [id number] - [id number] - [id number] Implanted:Qty: 1 on 11/29/2021 by Dave Louis MD at [facility] N/A: Lumbar-Sa cral Spine [employer] Inc 10/14/2024 [id number] / [id number] / Depuy Synthes Spine Cage Post Spinal 4d Plif Ti [id number] - [id number] Implanted:Qty: 1 on 11/29/2021 by Dave Louis MD at [facility] N/A: Lumbar-Sa cral Spine Depuy Synthes Spine [id number] 07/30/2024 [id number] / / [id number] Depuy Synthes Spine Expedium 5.5mm 80mm Line Prebent Rodney Spinal Titanium Nonsterile [id number] - [id number] Implanted:Qty: 1 on 11/29/2021 by Dave Louis MD at [facility] N/A: Lumbar-Sa cral Spine Depuy Synthes Spine [id number] / / Depuy Synthes Spine Expedium 5.5mm 85mm Line Prebent Rodney Spinal Titanium Nonsterile [id number] - [id number] Implanted:Qty: 1 on 11/29/2021 by Dave Louis MD at [facility] N/A: Lumbar-Sa cral Spine Depuy Synthes Spine [id number] / / Depuy Synthes Spine Expedium 5.5mm 45mm Polyaxial Spine Screw Bone Titanium 5.5mm Rodney [id number] - [id number] Implanted:Qty: 2 on 11/29/2021 by Dave Louis MD at [facility] N/A: Lumbar-Sa cral Spine Depuy Synthes Spine [id number] / / Depuy Synthes Spine Expedium 6.5mm 45mm Polyaxial Spine Screw Bone Titanium 5.5mm Rodney [id number] - [id number] Implanted:Qty: 3 on 11/29/2021 by Dave Louis MD at [facility] N/A: Lumbar-Sa cral Spine Depuy Synthes Spine [id number] / / Depuy Synthes Spine Expedium 1 Inner Monoaxial Spine Screw Set Titanium [id number] - [id number] Implanted:Qty: 6 on 11/29/2021 by Dave Louis MD at [facility] N/A: Lumbar-Sa cral Spine Depuy Synthes Spine [id number] / / Depuy Synthes Spine Expedium 7mm 45mm 1 Innie Polyaxial Spine Screw Bone Titanium [id number] - [id number] Implanted:Qty: 1 on 11/29/2021 by Dave Louis MD at [facility] N/A: Lumbar-Sa cral Spine Depuy Synthes Spine [id number] / / Procedures Procedure Name Priority Date/Time [...] 11/29/2019 8:04 AM Admit Type: Inpatient Room: [facility] Date of : 1965 Instrument Name: [...] the bowel preparation was evaluated usingthe BBPS ([place] Bowel Preparation Scale) with scores of: Right [...] AM CDT) Hep A IgM Nonreactive Nonreactive [facility] Comment: Interpretive Data: If Hep A IgM Ab is reported as Equivocal, a new sample should be drawn in two weeks for testing. Current interpretive data was last revised on 19. Hep B core IgM Nonreactive Nonreactive [facility] Comment: Interpretive Data If HepB Core IgM Ab is reported as Equivocal, a new sample should be drawn in two weeks for testing. Current interpretive data was last revised on 19. Hep C Ab Nonreactive Nonreactive [facility] Comment: Interpretive Data Nonreactive: Antibodies to [...] 2019. HepBsAg Nonreactive Nonreactive [facility] Blood specimen (specimen) 11/17/2019 4:13 AM CDT 11/17/2019 4:31 AM CDT [facility] MICROBIOLOGY - GENERAL ORDERABLES Final Result [facility] [address] Department [place] [address] from Last 3 Months or Most Recently Relevant to Health Maintenance Insurance UHC MEDICARE ADVANTAGE MEDICAL [facility] MEDICARE Address: [address] [address] [place] [address] [facility] MEDICARE [id number] [place] [address] MEDICARE UHC MEDICARE ADVANTAGE Advance Directives For more information, please contact: [phone] Documents on File Type Date Recorded Patient Process Machine Operator Expl anation Power of Insulation Nozzleman 11/29/2021 11:46 AM * Full Code (Latest [...] First Alternate Health Care Agent Care Teams Digital Associate Media Director Relationship Specialty Start Date End Date Ab Melara MD [address] [address] PCP - General Family Medicine 07/16/21 Lidia Barajas MD Anesthesiologist Anesthesiology 01/13/20
--- OUTSIDE RECORDS SUMMARY | 2024-10-18 13:35 | XMS_ITS | Encounter Summary ---
Author Organization [facility] Healthcare Address [address] [place] [address] Care Team Providers Care Staff Therapist Name Role Phone Shilpa Fraziermeera PEREZ Primary Care Provider Lidia Barajas MD Unavailable Ab Melara MD Primary Care Provid er Reason for Visit * Reason Onset Date Comments PRECALL ANTICOAG 02/18/2020 Encounter Details Date Type Department Care Team (Late st Contact Info) Description 02/18/2020 Telephone [facility] Center at [facility] [address] [facility] 1st [place] [address] Tori Arias RN PRECALL ANTICOAG [...] on file Legal Sex Female 11:49 PM MONUMENT STONECUTTER Gender Identity Not on file Sexual Orientation [...] DT MRSA 12/27/2021 03/06/2022 09/02/2022 3:05 AM MONUMENT STONECUTTER documented as of this encounter Care Teams Staff Therapist Relationship Specialty Start Date End Date Shilpa Frazier DO PCP - General 06/12/18 07/15/21 Ab Melara MD [address] [address] PCP - General Family Medicine 07/16/21 Lidia Barajas MD Anesthesiologist Anesthesiology 01/13/20 documented as of this encounter
--- OUTSIDE RECORDS SUMMARY | 2024-10-18 13:35 | XMS_ITS | Encounter Summary ---
Author Organization [facility] Address [address] [place] [address] Care Team Providers Care Curriculum And Assessment Coordinator Name Role Phone Fiordaliza Snell MD Primary [...] on file Legal Sex Female 2:43 AM SAIL CUTTER Gender Identity Not on file Sexual Orientation Not on file documented as of this encounter Plan of Treatment Not on file documented as of this encounter Visit Diagnoses Diagnosis Excessive or frequent menstruation- Primary documented in this encounter Additional Health Concerns Infection Onset Date Last Indicated Resolved Time R/O COVID-19 07/02/2020 07/02/2020 07/02/2020 8:53 PM SAIL CUTTER MRSA Comment:Resolved per Type and Duration of Precautions Recommended for Selected Infections and Conditions document 2023 update 07/02/2020 07/02/2020 03/16/20 24 10:58 AM CDT R/O COVID-19 07/10/2020 07/10/2020 07/10/2020 5:01 PM SAIL CUTTER documented as of this encounter Care Teams Curriculum And Assessment Coordinator Relationship Specialty Start Date End Date Fiordaliza Snell MD PCP - General Family Practice 09/09/22 documented as of this encounter
--- OUTSIDE RECORDS SUMMARY | 2024-10-18 13:35 | XMS_ITS | Encounter Summary ---
Author Organization [facility] Healthcare Address [address] [place] [address] Care Team Providers Care Dairy Cattle Farm Manager Name Role Phone Shilpa Frazier DO Primary Care Provider Lidia Barajas MD Unavailable Ab Melara MD Primary Care Provid er Encounter Details Date Type Department Care Team (Late st Contact Info) Description 04/24/2020 Telephone [facility] Center at [facility] [address] [facility] [address] [place] [address] Tori Arias RN Social History [...] on file Legal Sex Female 11:49 PM INCENDIARIES SUPERVISOR Gender Identity Not on file Sexual [...] DT MRSA 12/27/2021 03/06/2022 09/02/2022 3:05 AM INCENDIARIES SUPERVISOR documented as of this encounter Care Teams Dairy Cattle Farm Manager Relationship Specialty Start Date End Date Shilpa Frazier DO PCP - General 06/12/18 07/15/21 Ab Melara MD [address] [address] PCP - General Family Medicine 07/16/21 Lidia Barajas MD Anesthesiologist Anesthesiology 01/13/20 documented as of this encounter
--- OUTSIDE RECORDS SUMMARY | 2024-10-18 13:35 | XMS_ITS | Encounter Summary ---
Author Organization [facility] Address [address] [place] [address] Care Team Providers Care Stenotypist Name Role Phone Fiordaliza Snell MD Primary [...] on file Legal Sex Female 2:43 AM DOOR TO DOOR SALES REPRESENTATIVE Gender Identity Not on file Sexual Orientation Not on file documented as of this encounter Plan of Treatment Not on file documented as of this encounter Visit Diagnoses Diagnosis Lumbago- Primary documented in this encounter Additional Health Concerns Infection Onset Date Last Indicated Resolved Time R/O COVID-19 07/02/2020 07/02/2020 07/02/2020 8:53 PM DOOR TO DOOR SALES REPRESENTATIVE MRSA Comment:Resolved per Type and Duration of Precautions Recommended for Selected Infections and Conditions document 2023 update 07/02/2020 07/02/2020 03/16/20 24 10:58 AM CDT R/O COVID-19 07/10/2020 07/10/2020 07/10/2020 5:01 PM DOOR TO DOOR SALES REPRESENTATIVE documented as of this encounter Care Teams Stenotypist Relationship Specialty Start Date End Date Fiordaliza Snell MD PCP - General Family Practice 09/09/22 documented as of this encounter
--- OUTSIDE RECORDS SUMMARY | 2024-10-18 13:35 | XMS_ITS | Encounter Summary ---
Author Organization [facility] Address [address] [place] [address] Care Team Providers Care Chiropractic Care Name Role Phone Fiordaliza Snell MD Primary [...] on file Legal Sex Female 2:43 AM HEEL CEMENTER MACHINE Gender Identity Not on file Sexual Orientation Not on file documented as of this encounter Plan of Treatment Not on file documented as of this encounter Visit Diagnoses Diagnosis Surgical or other procedure not carried out because of patient's decision- Primary documented in this encounter Additional Health Concerns Infection Onset Date Last Indicated Resolved Time R/O COVID-19 07/02/2020 07/02/2020 07/02/2020 8:53 PM HEEL CEMENTER MACHINE MRSA Comment:Resolved per Type and Duration of Precautions Recommended for Selected Infections and Conditions document 2023 update 07/02/2020 07/02/2020 03/16/20 24 10:58 AM CDT R/O COVID-19 07/10/2020 07/10/2020 07/10/2020 5:01 PM HEEL CEMENTER MACHINE documented as of this encounter Care Teams Chiropractic Care Relationship Specialty Start Date End Date Fiordaliza Snell MD PCP - General Family Practice 09/09/22 documented as of this encounter
--- OUTSIDE RECORDS SUMMARY | 2024-10-18 13:35 | XMS_ITS | Encounter Summary ---
Author Organization [facility] Address [address] [place] [address] Care Team Providers Care Chief I Dispatcher Name Role Phone Fiordaliza Snell MD Primary [...] file Legal Sex Female 2:43 AM HAND CLOTH EXAMINER Gender Identity Not on file Sexual Orientation Not on file documented as of this encounter Plan of Treatment Not on file documented as of this encounter Visit Diagnoses Diagnosis Unspecified symptom associated with female genital organs- Primary documented in this encounter Additional Health Concerns Infection Onset Date Last Indicated Resolved Time R/O COVID-19 07/02/2020 07/02/2020 07/02/2020 8:53 PM HAND CLOTH EXAMINER MRSA Comment:Resolved per Type and Duration of Precautions Recommended for Selected Infections and Conditions document 2023 update 07/02/2020 07/02/2020 03/16/20 24 10:58 AM CDT R/O COVID-19 07/10/2020 07/10/2020 07/10/2020 5:01 PM HAND CLOTH EXAMINER documented as of this encounter Care Teams Chief I Dispatcher Relationship Specialty Start Date End Date Fiordaliza Snell MD PCP - General Family Practice 09/09/22 documented as of this encounter
--- OUTSIDE RECORDS SUMMARY | 2024-10-18 13:35 | XMS_ITS | Encounter Summary ---
Author Organization [facility] Address [address] [place] [address] Care Team Providers Care Fisher Eel Spear Name Role Phone Fiordaliza Snell MD Primary [...] on file Legal Sex Female 2:43 AM STEWARD/STEWARDESS CHIEF CARGO VESSEL Gender Identity Not on file Sexual Orientation Not on file documented as of this encounter Plan of Treatment Not on file documented as of this encounter Visit Diagnoses Diagnosis Pelvic peritoneal adhesions, female (postoperative) (postinfection)- Primary documented in this encounter Additional Health Concerns Infection Onset Date Last Indicated Resolved Time R/O COVID-19 07/02/2020 07/02/2020 07/02/2020 8:53 PM STEWARD/STEWARDESS CHIEF CARGO VESSEL MRSA Comment:Resolved per Type and Duration of Precautions Recommended for Selected Infections and Conditions document 2023 update 07/02/2020 07/02/2020 03/16/20 24 10:58 AM CDT R/O COVID-19 07/10/2020 07/10/2020 07/10/2020 5:01 PM STEWARD/STEWARDESS CHIEF CARGO VESSEL documented as of this encounter Care Teams Fisher Eel Spear Relationship Specialty Start Date End Date Fiordaliza Snell MD PCP - General Family Practice 09/09/22 documented as of this encounter
--- OUTSIDE RECORDS SUMMARY | 2024-10-18 13:35 | XMS_ITS | Encounter Summary ---
Author Organization [facility] Address [address] [place] [address] Care Team Providers Care Termite Renewal Inspector Name Role Phone Fiordaliza Snell MD [...] on file Legal Sex Female 2:43 AM PICKLE SOLUTION MAKER Gender Identity Not on file Sexual Orientation Not on file documented as of this encounter Plan of Treatment Not on file documented as of this encounter Visit Diagnoses Diagnosis Closed fracture of lateral malleolus- Primary documented in this encounter Additional Health Concerns Infection Onset Date Last Indicated Resolved Time R/O COVID-19 07/02/2020 07/02/2020 07/02/2020 8:53 PM PICKLE SOLUTION MAKER MRSA Comment:Resolved per Type and Duration of Precautions Recommended for Selected Infections and Conditions document 2023 update 07/02/2020 07/02/2020 03/16/20 24 10:58 AM CDT R/O COVID-19 07/10/2020 07/10/2020 07/10/2020 5:01 PM PICKLE SOLUTION MAKER documented as of this encounter Care Teams Termite Renewal Inspector Relationship Specialty Start Date End Date Fiordaliza Snell MD PCP - General Family Practice 09/09/22 documented as of this encounter
--- OUTSIDE RECORDS SUMMARY | 2024-10-18 13:35 | XMS_ITS | Encounter Summary ---
Author Organization [facility] Address [address] [place] [address] Care Team Providers Care Still Operator Helper Name Role Phone Fiordaliza Snell MD [...] on file Legal Sex Female 2:43 AM GREASE BUFFER Gender Identity Not on file Sexual Orientation Not on file documented as of this encounter Plan of Treatment Not on file documented as of this encounter Visit Diagnoses Diagnosis Abdominal pain, unspecified site- Primary documented in this encounter Additional Health Concerns Infection Onset Date Last Indicated Resolved Time R/O COVID-19 07/02/2020 07/02/2020 07/02/2020 8:53 PM GREASE BUFFER MRSA Comment:Resolved per Type and Duration of Precautions Recommended for Selected Infections and Conditions document 2023 update 07/02/2020 07/02/2020 03/16/20 24 10:58 AM CDT R/O COVID-19 07/10/2020 07/10/2020 07/10/2020 5:01 PM GREASE BUFFER documented as of this encounter Care Teams Still Operator Helper Relationship Specialty Start Date End Date Fiordaliza Snell MD PCP - General Family Practice 09/09/22 documented as of this encounter
--- OUTSIDE RECORDS SUMMARY | 2024-10-18 13:35 | XMS_ITS | Encounter Summary ---
Author Organization [facility] Healthcare Address [address] [place] [address] Care Team Providers Care Manager Distribution Center Name Role Phone Frazier Shilpatemo Law DO Primary Care Provider Lidia Barajas MD Unavailable Ab Melara MD Primary Care Provid er Encounter Details Date Type Department Care Team (Late st Contact Info) Description 03/19/2019 Telephone [facility] - Interventional Radiology [address] [place] [address] Nhung French RN Social History [...] on file Legal Sex Female 11:49 PM BROACH TROUBLE SHOOTER Gender Identity Not on file Sexual Orientation [...] DT MRSA 12/27/2021 03/06/2022 09/02/2022 3:05 AM BROACH TROUBLE SHOOTER documented as of this encounter Care Teams Manager Distribution Center Relationship Specialty Start Date End Date Shilpa Frazier DO PCP - General 06/12/18 07/15/21 Ab Melara MD [address] [address] PCP - General Family Medicine 07/16/21 Lidia Barajas MD Anesthesiologist Anesthesiology 01/13/20 documented as of this encounter
--- OUTSIDE RECORDS SUMMARY | 2024-10-18 13:35 | XMS_ITS | Encounter Summary ---
Author Organization [facility] Address [address] [place] [address] Care Team Providers Care Audit Intern Name Role Phone Fiordaliza Snell MD Primary [...] on file Legal Sex Female 2:43 AM ASSEMBLY CLEANER Gender Identity Not on file Sexual Orientation Not on file documented as of this encounter Plan of Treatment Not on file documented as of this encounter Visit Diagnoses Diagnosis Unspecified symptom associated with female genital organs- Primary documented in this encounter Additional Health Concerns Infection Onset Date Last Indicated Resolved Time R/O COVID-19 07/02/2020 07/02/2020 07/02/2020 8:53 PM ASSEMBLY CLEANER MRSA Comment:Resolved per Type and Duration of Precautions Recommended for Selected Infections and Conditions document 2023 update 07/02/2020 07/02/2020 03/16/20 24 10:58 AM CDT R/O COVID-19 07/10/2020 07/10/2020 07/10/2020 5:01 PM ASSEMBLY CLEANER documented as of this encounter Care Teams Audit Intern Relationship Specialty Start Date End Date Fiordaliza Snell MD PCP - General Family Practice 09/09/22 documented as of this encounter
--- OUTSIDE RECORDS SUMMARY | 2024-10-18 13:35 | XMS_ITS | Encounter Summary ---
Author Organization [facility] Address [address] [place] [address] Care Team Providers Care Journeyman Electrician Name Role Phone Fiordaliza Snell MD Primary [...] on file Legal Sex Female 2:43 AM MATHEMATICAL SCIENCES PROFESSOR Gender Identity Not on file Sexual Orientation Not on file documented as of this encounter Plan of Treatment Not on file documented as of this encounter Visit Diagnoses Diagnosis Metrorrhagia- Primary documented in this encounter Additional Health Concerns Infection Onset Date Last Indicated Resolved Time R/O COVID-19 07/02/2020 07/02/2020 07/02/2020 8:53 PM MATHEMATICAL SCIENCES PROFESSOR MRSA Comment:Resolved per Type and Duration of Precautions Recommended for Selected Infections and Conditions document 2023 update 07/02/2020 07/02/2020 03/16/20 24 10:58 AM CDT R/O COVID-19 07/10/2020 07/10/2020 07/10/2020 5:01 PM MATHEMATICAL SCIENCES PROFESSOR documented as of this encounter Care Teams Journeyman Electrician Relationship Specialty Start Date End Date Fiordaliza Snell MD PCP - General Family Practice 09/09/22 documented as of this encounter
--- OUTSIDE RECORDS SUMMARY | 2024-10-18 13:35 | XMS_ITS | Encounter Summary ---
Author Organization [facility] Healthcare Address [address] [place] [address] Care Team Providers Care Historical Archeologist Name Role Phone Shilpa Frazier DO Primary Care Provider Lidia Barajas MD Unavailable Ab Melara MD Primary Care Provid er Encounter Details Date Type Department Care Team (Late st Contact Info) Description 03/15/2019 Telephone [facility] - Interventional Radiology [address] [place] [address] Philly Aguirre RN Social History [...] on file Legal Sex Female 11:49 PM TEACHING SUPERVISOR Gender Identity Not on file Sexual [...] DT MRSA 12/27/2021 03/06/2022 09/02/2022 3:05 AM TEACHING SUPERVISOR documented as of this encounter Care Teams Historical Archeologist Relationship Specialty Start Date End Date Shilpa Frazier DO PCP - General 06/12/18 07/15/21 Ab Melara MD [address] [address] PCP - General Family Medicine 07/16/21 Lidia Barajas MD Anesthesiologist Anesthesiology 01/13/20 documented as of this encounter
--- OUTSIDE RECORDS SUMMARY | 2024-10-18 13:35 | XMS_ITS | Clinical Summary ---
Author Organization [facility] Address [address] [place] [address] Phone Care Team Providers Care Edi Consultant Name Role Phone Fiordaliza Snell MD [...] migh t be different from the original. Nutrition Faculty Member - Dr. Eddie Tapia MD, [facility], [facility] - [address] [facility] Problem Noted Date Diagnosed Date [...] NOS Added automatically from request for surgery [id number] Last Assessment & Plan: Healing fusion C6-7 [...] (09/14/2021): Added automatically from request for surgery [id number] Cervical pain (neck) 06/13/2018 Intractable pain 10/13/2011 [...] 07/25/2020 Immunizations Immunization Administration Dates Next Due (Mapp)(12 YR UP) COVID-19 VACCINE - EMERGENCY USE AUTHORIZATION, MRNA, [id number](PF) 30 MCG/0.3 ML IM SUSP 12/13/2020,11/20/2020 (PNEUMOVAX [...] on file Legal Sex Female 2:43 AM PUPIL PERSONNEL WORKER Gender Identity Not on file Sexual [...] CDT Respiratory Rate 18 07/12/2020 9:24 PM PUPIL PERSONNEL WORKER Oxygen Saturation 97% 04/20/2021 2:12 PM CDT Inhaled Oxygen Concentration - - Weight 91.6 kg (202 lb) 08/07/2020 2:15 PM PUPIL PERSONNEL WORKER Height 172.7 cm (5' 8 ) 04/20/2021 2:12 PM CDT Body Mass Index 30.71 08/07/2020 2:15 PM PUPIL PERSONNEL WORKER Plan of Treatment Health Maintenance Due [...] Advance Directives For more information, please contact: [phone] * Full Code (Latest Code Status on File) Date Activated Date Inactivated Comments 07/02/2020 10:50 PM 07/13/2020 1:53 PM * Full Code Date Activated Date Inactivated Comments 06/26/2011 3:20 AM 06/26/2011 8:40 PM Care Teams Edi Consultant Relationship Specialty Start Date End Date Fiordaliza Snell MD PCP - General Family Practice 09/09/22
[2024-10-18] MEDS: HYDROmorphone HCL INJ (*CRX) 2 MG/ML VIAL 0.5 MG IV PUSH (14:26)
[2024-10-18] MEDS: PHENAZOPYRIDINE HCL 100 MG TABLET 200 MG PO (14:27)
[2024-10-18 15:00] VITALS: BP 126/76; PULSE 71; RESP 18; O2SAT 98
[2024-10-18] MEDS: POTASSIUM CHLORIDE 20 MEQ ER TABLET 40 MEQ PO (15:10)
== END 2024-10-18 17:34 | disposition home or self-care (01) ==
PROVIDERS: Emergency Provider Registered Nurse; PCP Internal Medicine
DX: N30.00 Acute cystitis without hematuria (principal); I50.9 Heart failure, unspecified; I11.0 Hypertensive heart disease with heart failure; I48.91 Unspecified atrial fibrillation; E78.00 Pure hypercholesterolemia, unspecified; E66.9 Obesity, unspecified; Z68.33 Body mass index [BMI] 33.0-33.9, adult; G82.20 Paraplegia, unspecified; G47.30 Sleep apnea, unspecified; D64.9 Anemia, unspecified; K21.9 Gastro-esophageal reflux disease without esophagitis; K58.9 Irritable bowel syndrome, unspecified; M19.90 Unspecified osteoarthritis, unspecified site; M79.7 Fibromyalgia; F32.A Depression, unspecified; F41.9 Anxiety disorder, unspecified; F43.10 Post-traumatic stress disorder, unspecified; Z93.6 Other artificial openings of urinary tract status; Z86.14 Personal history of Methicillin resistant Staphylococcus aureus infection; Z86.73 Personal history of transient ischemic attack (TIA), and cerebral infarction without residual deficits; Z90.49 Acquired absence of other specified parts of digestive tract; Z90.6 Acquired absence of other parts of urinary tract
CPT/HCPCS: 36415; 80053; 81001; 83605; 85025; 85610; 85652; 85730; 86140; 87040; 87086; 87181; 87186; 96361; 96365; 96375; 99284; A9270; J0696; J1171; J1885; J2405; J7030

== ENCOUNTER 2024-11-28 19:23 | Emergency (ER) | payer MEDICARE, SELFPAY ==
--- NOTE | ~2024-11-28 | XR_ITS ---
EXAM: XR foot RT 2V DATE: 11/28/2024 20:08 HISTORY: caught in wheelchair . COMPARISON: None available. FINDINGS: Osteopenia. Lateral view limited by overlapping toes. No fracture or dislocation. No lytic or blastic lesion. Mild scattered degenerative changes. No erosion or periosteal change. Diffuse sub cutaneous edema. Forefoot soft tissue swelling. Soft tissue irregularity over the third toe. IMPRESSION: No acute osseous finding in the right foot. Skin/nail injury over the third toe. Reviewed, dictated and finalized at location K. IMPRESSION: No acute osseous finding in the right foot. Skin/nail injury over t he third toe.
--- NOTE | ~2024-11-28 | XR_ITS ---
EXAM: XR tibia fibula RT 2V DATE: 11/28/2024 20:08 HISTORY: caught in wheelchair . COMPARISON: None available. FINDINGS: Osteopenia. No acute fracture or dislocation. Old healed fractures of the fibula. Chronic appearing small medial malleolus avulsion fracture fragment. No lytic or blastic lesion. Mild degener ative change at the knee and ankle. No erosion or periosteal change. Soft tissues within normal limit s. IMPRESSION: No acute osseous finding in the right tibia/fibula. Reviewed, dictated and finalized at location K.
--- OUTSIDE RECORDS SUMMARY | 2024-11-28 19:25 | XMS_ITS | Encounter Summary ---
Author Organization [facility] Address [address] [facility] [place] [address] Care Team Providers Care Ski Patroller Name Role Phone Shilpa Frazier DO Primary Care Provider [phone] Lidia Barajas MD Unavailable Shilpa Gandhi MD Unavailable Massiel Melara MD Primary Care Provider [phone] Shilpa Frazier DO Primary Care Provider Iron Galindo PA-C Primary Care Provide r Cresencio Ghosh MD Unavailable [phone] Cresencio Ghosh MD Unavailable [phone] Cresencio Ghosh MD Unavailable [phone] Encounter Details Date Type Department Care Team (Late st Contact Info) Description 01/23/2015 Therapy Visit EXTERNAL NON-[facility] DEPT Sunny Reynoso MD [address] [address] Social History Tobacco Use Types Packs/Day Years Used Date Smoking Tobacco: Never Alcohol Use Standard Drinks/Week Comments Yes 0 (1 standard drink = 0.6 oz pur e alcohol) 1-2 year Comments Unknown Sex and Gender Information Value Date Recorded Sex Assigned at Not on file Legal Sex Female 6:02 AM ELECTROPLATER APPRENTICE Gender Identity Not on file Sexual [...] NO NEED FOR ISOLATION AT THIS TIME; DISH STACKER INF PREV [id number] 10/07/2019 10/07/2019 09/05/19 8:37 AM ELECTROPLATER APPRENTICE MRSA 10/07/2019 10/07/2019 01/29/2020 8:33 AM CDT MRSA 01/28/2020 01/28/2020 03/20/2020 7:45 AM CDT COVID-19 Under Investigation 04/06/2020 04/08/2020 04/09/2020 5:20 AM CDT MRSA 04/11/2020 04/11/2020 12/25/2020 9:00 AM CDT COVID-19 Under Investigation 08/07/2020 08/07/2020 08/08/2020 3:45 PM ELECTROPLATER APPRENTICE COVID-19 Under Investigation 08/11/2020 08/11/2020 08/12/2020 4:08 AM ELECTROPLATER APPRENTICE MRSA 05/13/2021 02/05/2022 09/04/2022 8:37 AM ELECTROPLATER APPRENTICE MRSA Hx 09/04/2022 09/04/2022 MDRO Comment:04/01/23 MDRO resolved, ES 02/23/2023 02/23/20232022 7:16 AM CDT MDRO Hx 04/01/2023 04/01/2023 MDRO 05/08/2023 05/08/2023 documented as of this encounter Care Teams Ski Patroller Relationship Specialty Start Date End Date Shilpa Frazier DO [address] [facility] [address] [place] [address] PCP - General Family Medicine 08/06/17 07/31/20 Massiel Melara MD [address] [place] [address] PCP - General Family Medicine 08/01/20 10/01/20 Shilpa Frazier DO [address] [facility] [address] [place] [address] PCP - General Family Medicine 10/02/20 10/03/20 Iron Galindo PA-C [address] [address] [address] [place], [place] [id number] PCP - General Physician Accounting Supervisor 02/12/23 Cresencio Ghsoh MD [address] [place] [address] PCP - Attributed-[facility] 12/29/23 09/14/24 Cresencio Ghosh MD [address] [place] [address] PCP - Attributed-[facility] 10/28/24 Lidia Barajas MD [address] [facility] [address] Anesthesiology-Pain Management 06/03/19 Shilpa Gandhi MD [address] [place] [address] Oncology 06/03/19 Cresencio Ghosh MD [address] [place] [address] Internal Medicine Sleep Medicine 09/29/24 documented as of this encounter
--- OUTSIDE RECORDS SUMMARY | 2024-11-28 19:25 | XMS_ITS | Encounter Summary ---
Author Organization [facility] Healthcare Address [address] [place] [address] Care Team Providers Care Experience Designer Name Role Phone Unknown, Notinfile Primary Care Provider Unavail able Shilpa Frazier DO Primary Care Provider Lidia Barajas MD Unavailable Ab Melara MD Primary Care Provid er Encounter Details Date Type Department Care Team (Late st Contact Info) Description 04/07/[address] [facility] [address] [facility] 1st [place] [address] Kate Johnson, RT Social History Tobacco Use Types Packs/Day Years Used Date Smoking Tobacco: Never Smokeless Tobacco: Never Alcohol Use Standard Drinks/Week Comments No 0 (1 standard drink = 0.6 oz pur e alcohol) Comments No Sex and Gender Information Value Date Recorded Sex Assigned at Not on file Legal Sex Female 11:49 PM MANAGER POOL Gender Identity Not on file Sexual Orientation [...] MRSA 12/27/2021 03/06/2022 09/02/2022 3:05 AM MANAGER POOL documented as of this encounter Care Teams Experience Designer Relationship Specialty Start Date End Date Unknown, Notinfile PCP - General 08/28/17 06/11/18 Shilpa Frazier DO PCP - General 06/12/18 07/15/21 Ab Melara MD [address] [address] PCP - General Family Medicine 07/16/21 Lidia Barajas MD Anesthesiologist Anesthesiology 01/13/20 documented as of this encounter
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
--- OUTSIDE RECORDS SUMMARY | 2024-11-28 19:25 | XMS_ITS | Encounter Summary ---
Author Organization [facility] Address [address] [place] [address] Care Team Providers Care Nurse Transplant Name Role Phone Fiordaliza Snell MD Primary Care Provider Encounter Details Date Type Department Care Team (Latest Contact Info) Description 11/13/2004 Outpatient Historical [facility] Garcia, Anjali Gupta MD NO ADDRESS ON FILE LUMP OR MASS IN BREAST (Primary Dx) Social History Tobacco Use Types Packs/Day Years Used Date Smoking Tobacco: Never Assessed Comments Unknown Sex and Gender Information Value Date Recorded Sex Assigned at Not on file Legal Sex Female 2:43 AM BARGE PILOT Gender Identity Not on file Sexual Orientation Not on file documented as of this encounter Plan of Treatment Not on file documented as of this encounter Visit Diagnoses Diagnosis Lump or mass in breast- Primary documented in this encounter Additional Health Concerns Infection Onset Date Last Indicated Resolved Time R/O COVID-19 07/02/2020 07/02/2020 07/02/2020 8:53 PM BARGE PILOT MRSA Comment:Resolved per Type and Duration of Precautions Recommended for Selected Infections and Conditions document 2023 update 07/02/2020 07/02/2020 03/16/20 24 10:58 AM CDT R/O COVID-19 07/10/2020 07/10/2020 07/10/2020 5:01 PM BARGE PILOT documented as of this encounter Care Teams Nurse Transplant Relationship Specialty Start Date End Date Fiordaliza Snell MD PCP - General Family Practice 09/09/22 documented as of this encounter
--- OUTSIDE RECORDS SUMMARY | 2024-11-28 19:25 | XMS_ITS | Encounter Summary ---
Author Organization [facility] Address [address] [place] [address] Care Team Providers Care Radiological Equipment Specialist Name Role Phone Fiordaliza Snell MD [...] on file Legal Sex Female 2:43 AM THREAD SEPARATOR Gender Identity Not on file Sexual Orientation Not on file documented as of this encounter Plan of Treatment Not on file documented as of this encounter Visit Diagnoses Diagnosis Chronic salpingitis and oophoritis- Primary documented in this encounter Additional Health Concerns Infection Onset Date Last Indicated Resolved Time R/O COVID-19 07/02/2020 07/02/2020 07/02/2020 8:53 PM THREAD SEPARATOR MRSA Comment:Resolved per Type and Duration of Precautions Recommended for Selected Infections and Conditions document 2023 update 07/02/2020 07/02/2020 03/16/20 24 10:58 AM CDT R/O COVID-19 07/10/2020 07/10/2020 07/10/2020 5:01 PM THREAD SEPARATOR documented as of this encounter Care Teams Radiological Equipment Specialist Relationship Specialty Start Date End Date Fiordaliza Snell MD PCP - General Family Practice 09/09/22 documented as of this encounter
--- OUTSIDE RECORDS SUMMARY | 2024-11-28 19:25 | XMS_ITS | Encounter Summary ---
Author Organization [facility] Address [address] [place] [address] Care Team Providers Care Debt Collector Name Role Phone Fiordaliza Snell MD Primary [...] on file Legal Sex Female 2:43 AM INLETTER Gender Identity Not on file Sexual Orientation Not on file documented as of this encounter Plan of Treatment Not on file documented as of this encounter Visit Diagnoses Diagnosis Other and unspecified ovarian cyst- Primary documented in this encounter Additional Health Concerns Infection Onset Date Last Indicated Resolved Time R/O COVID-19 07/02/2020 07/02/2020 07/02/2020 8:53 PM INLETTER MRSA Comment:Resolved per Type and Duration of Precautions Recommended for Selected Infections and Conditions document 2023 update 07/02/2020 07/02/2020 03/16/20 24 10:58 AM CDT R/O COVID-19 07/10/2020 07/10/2020 07/10/2020 5:01 PM INLETTER documented as of this encounter Care Teams Debt Collector Relationship Specialty Start Date End Date Fiordaliza Snell MD PCP - General Family Practice 09/09/22 documented as of this encounter
--- OUTSIDE RECORDS SUMMARY | 2024-11-28 19:25 | XMS_ITS | Encounter Summary ---
Author Organization [facility] Address [address] [place] [address] Care Team Providers Care Health Program Director Name Role Phone Fiordaliza Snell MD Primary Care Provider Encounter Details Date Type Department Care Team (Late st Contact Info) Description 04/18/2003 Outpatient Historical [facility] Otilia Florentino MD [facility] [place] [address] Er, Authorized P NO ADDRESS ON FILE ABDOMINAL PAIN RLQ (Primary Dx) Social History Tobacco Use Types Packs/Day Years Used Date Smoking Tobacco: Never Assessed Comments Unknown Sex and Gender Information Value Date Recorded Sex Assigned at Not on file Legal Sex Female 2:43 AM FITNESS WORKER Gender Identity Not on file Sexual Orientation Not on file documented as of this encounter Plan of Treatment Not on file documented as of this encounter Visit Diagnoses Diagnosis Abdominal pain, right lower quadrant- Primary documented in this encounter Additional Health Concerns Infection Onset Date Last Indicated Resolved Time R/O COVID-19 07/02/2020 07/02/2020 07/02/2020 8:53 PM FITNESS WORKER MRSA Comment:Resolved per Type and Duration of Precautions Recommended for Selected Infections and Conditions document 2023 update 07/02/2020 07/02/2020 03/16/20 24 10:58 AM CDT R/O COVID-19 07/10/2020 07/10/2020 07/10/2020 5:01 PM FITNESS WORKER documented as of this encounter Care Teams Health Program Director Relationship Specialty Start Date End Date Fiordaliza Snell MD PCP - General Family Practice 09/09/22 documented as of this encounter
--- OUTSIDE RECORDS SUMMARY | 2024-11-28 19:25 | XMS_ITS | Clinical Summary ---
Author Organization [facility] Address [address] [place] [address] Care Team Providers Care Awake Overnight Monitor Name Role Phone Lidia Barajas MD Unavailable Shilpa Gandhi MD Unavailable [phone] Iron Galindo PA-C Primary Care Provide r Cresencio Ghosh MD Unavailable [phone] Cresencio Ghosh MD Unavailable Source Comments [facility],non-owned Affiliates and Associated Physician Practices is amultiple site organization consisting of ambulatory clinics and hospital sitesin [place], [place], [place] and [place]. This disclosure is being madepursuant to the Care Everywhere program and may not contain all information available regarding this patient. Last updated 18.[facility] Allergies Active Allergy Reactions Criticality Noted Date Comments Adhesive Sensitivity Skin Reactions Medium No sensitivity with SPT [place] Latex Itching,Rash Medium 05/09/2020 Patient has reaction to SPT containing Latex Penicillins Urticaria Medium 01/14/2009 To the old penicillin. Has received amoxicillin since then without any issue. Sulfa Drugs Urticaria Medium 05/16/2016 Vancomycin Urticaria,Itching Medium 07/02/2020 Itching Medications * Be aware that medications may not be up to date on this document. Alwaysverify current medications with the patient. losartan (COZAAR) 50 MG tabletIndicatio ns:Hypertension Take 1 tablet by mouth 2 times daily Reasons: High Blood Pressure Disorder 0 Active atorvastatin (LIPITOR) 10 MG tablet Take 1 tablet by mouth at bedtime 90 tablet 3 0 Active diclofenac sodium (VOLTAREN) 1 % gelIndications: Back Pain Apply 2 g to affected area 4 times daily as needed Reasons: Backache 150 g 1 0 Active escitalopram (LEXAPRO) 20 MG tablet Take 1 (one) tablet by mouth once daily 90 tablet 3 1 Active metoprolol succinate XL 24hr (TOPROL XL) 25 MG tablet Take 1 (one) tablet by mouth at bedtime 1 Active Lidocaine-Colla gen-Aloe Vera (REGENECARE) 2 % 0 Active ondansetron, disintegrating, (ZOFRAN ODT) 4 MG tablet Take 1 (one) tablet by mouth every 8 hours as needed for Nausea/Vomitin g Allow tablet to dissolve on the tongue 12 tablet 1 Active gabapentin (Neurontin) 300 MG capsule Take 3 (three) capsules by mouth 4 times daily Active Acetaminophen Extra Strength 500 MG tablet Take 2 (two) tablets by mouth every 6 hours as needed For pain. 2 Active Multiple Vitamins-Minera ls (Thera-M) TABS Take 1 (one) tablet by mouth once daily Active cyclobenzaprine (Flexeril) 5 MG tablet Take 1 (one) tablet by mouth 3 times daily as needed (spasms) 90 tablet 2 3 Active Nystop 971488 UNIT/GM powder Apply to affected area 2 times daily as needed 3 Active furosemide (Lasix) 20 MG tablet Take 1 (one) tablet by mouth once daily Active ascorbic acid (Vitamin C) 500 MG tablet Take 1 (one) tablet by mouth once daily 100 tablet 3 Active sulfamethoxazol e-trimethoprim (Bactrim DS; Septra DS) 800-160 MG tabletIndicatio ns:Urinary Tract Infection Take 1 (one) tablet by mouth every 12 hours Reasons: Urinary Tract Infection 7 tablet 3 Active oxyCODONE, immediate release, (Roxicodone) 5 MG tabletIndicatio ns:Chronic Pain Take 1 (one) tablet by mouth every 6 hours as needed for Pain Reasons: Chronic Pain 30 tablet 3 Active rOPINIRole (Requip) 1 MG tabletIndicatio ns:Restless legs syndrome (RLS) Take 1 (one) tablet by mouth as directed TAKE ONE TAB AT SUPPER AND ONE TABLETS AT BEDTIME FOR RESTLESS LEG SYNDROME 180 tablet 1 5 Active zolpidem (Ambien) 5 MG tablet Take 1 (one) tablet by mouth nightly as needed FOR INSOMNIA 30 tablet 5 5 Active Active Problems Problem Noted Date Diagnosed [...] Chest pain 03/31/2019 Pancreatitis, unspecified pancreatitis type 100 07/2018 Severe low back pain 03/20/2019 Intractable [...] Description 09/30/2024 8:15 AM CDT Video Visit [facility] [address] [place] [address] Cresencio Ghosh MD YAJAIRA on CPAP ; PLMD (periodic limb movement disorder); Restless legs syndrome (RLS); Malaise and fatigue; Hypertension, unspecified type; Insomnia due to medical condition; Circadian rhythm sleep disorder, irregular sleep wake type 09/29/2024 Refill [facility] [address] [place] [address] Cresencio Ghosh MD Refill Request from Last [...] care, and heating? Not very hard 04/02/2023 [facility] [place] of Occupat ional Health - Occupational Stress [...] place to sleep or slept in a [place] health care facility (including now)? No 04/02/2023 Comments No Sex and Gender Information Value Date Recorded Sex Assigned at Not on file Legal Sex Female 6:02 AM GEOTHERMAL SHEET METAL WORKER Gender Identity Not on file Sexual Orientation Not on file Occupation Industry Job Start Date Job End Date Disabled Not on file Not on file Not on file Last Filed Vital Signs Vital Sign Reading Time Taken Comments Blood Pressure 157/91 05/07/2023 9:23 AM GEOTHERMAL SHEET METAL WORKER Pulse 86 05/07/2023 9:23 AM GEOTHERMAL SHEET METAL WORKER Temperature 36.3 C (97.3 F) 05/07/2023 9:23 AM GEOTHERMAL SHEET METAL WORKER Respiratory Rate 18 04/02/2023 3:00 PM CDT Oxygen Saturation 95% 05/07/2023 9:23 AM GEOTHERMAL SHEET METAL WORKER Inhaled Oxygen Concentration 97% 02/21/2021 1 0:15 AM CDT Weight 99.8 kg (220 lb) 09/30/2024 8:15 AM CDT Height 172.7 cm (5' 8) 09/30/2024 8:15 AM CDT Body Mass Index [...] VACCINE ( season) 2024 07/01/2021, 12/13/2020, 11/20/2020 DEPRESSION SCREENING 06/30/2024 MEDICARE AWV CALENDAR YEAR 2024 02/25/2020, 09/10/2017 COLON MONITORING 11/28/2024 11/29/2019, 06/2019, 08/03/2019, Additional history exists Colorectal Cancer Screening 11/28/2024 INFLUENZA VACCINE (Season Ended) 2025 05/15/2022, 07/01/2021, 03/22/2020, Additional history exists SCREENING FOR DIABETES 04/02/2026 3, 04/01/2023, 03/31/2023, [...] < 140/90 Blood Pressure 157/91(2022 9:23 AM GEOTHERMAL SHEET METAL WORKER) No Sierra Steiner Yearly PCP visit Lifestyle No White, Ava A Have labs drawn Lifestyle No White, Ava A Take recommended medication(s) Lifestyle No White, Ava A Use safety retraint in car Lifestyle No White, Ava A Complete Health Maintenance Screenings Lifestyle No White, Ava A Medical Devices Implanted Type Area Coal Washer Tender Device Identifier Shelf Expiration Date Model / Serial / Lot Nevro Neurostimulator Senza [id number] (Implanted 2016) Floseal Hemostatic Matrix Implanted:Qty: 1 on 04/02/2019 by Maicol Mcneil DO at [facility] N/A: Spine [employer] 08/10/2020 [id number] / / [id number] Graft Tissue Drgn + Bvn Clgn Mtrx 1x1in Implanted:Qty: 1 on 04/02/2019 by Maicol Mcneil DO at [facility] N/A: Spine [employer] 04/29/2021 [id number] / / [id number] Seal Tisseel Prima 1 Prefil Frz 4ml - [id number] Implanted:Qty: 1 on 04/02/2019 by Maicol Mcneil DO at [facility] N/A: Spine [employer] 08/27/2020 [id number] / [id number] / [id number] Impl Inj 1ml Coaptite Syr Bulk Agnt Implanted:Qty: 2 on 04/11/2020 by Dave Aparicio MD at [facility] N/A: Bladder [employer] 10/25/2022 [id number] / / [id number] Impl Inj 1ml Coaptite Syr Bulk Agnt Implanted:Qty: 2 on 02/05/2022 by Dave Aparicio MD at [facility] Bladder [employer] 10/16/2024 [id number] / / [id number] Stent Uret 7fr 80cm Str Cls Tip Llok Implanted:Qty: 1 on 09/03/2022 by Nel Cerna DO at [facility] Ureter [employer] 12/23/2025 [id number] / / [id number] Description:bilateral ureter s Procedures Procedure Name Priority [...] 7 - 26 mg/dL 04/02/2023 3:07 AM [facility] Creatinine 0.69 0.56 - 0.96 mg/dL 04/02/2023 3:07 AM [facility] Sodium 133(L) 136 - 145 mmol/L 04/02/2023 3:07 AM [facility] Potassium 3.9 3.5 - 4.5 mmol/L 04/02/2023 3:07 AM [facility] Chloride 102 98 - 107 mmol/L 04/02/2023 3:07 AM [facility] CO2 26 22 - 29 mmol/L 04/02/2023 3:07 AM [facility] Glucose 122(H) 70 - 115 mg/dL 04/02/2023 3:07 AM [facility] Calcium 8.3(L) 8.4 - 10.2 mg/dL 04/02/2023 3:07 AM [facility] Anion Gap 5(L) 6 - 16 04/02/2023 3:07 AM [facility] BUN/Creatinine Ratio 23 7 - 23 04/02/2023 3:07 AM [facility] Osmolality Calculated 278 275 - 295 mOsm/kg 04/02/2023 3:07 AM [facility] eGFR by CKD-EPI >90 >=90 mL/min/1.7 3 m2 04/02/2023 3:07 AM [facility] Blood BLOOD SPECIMEN / Unknown Lab Venipuncture / Unknown 04/02/2023 2:31 AM CDT 04/02/2023 2:39 AM CDT us Missy Sutherland MD LAB - CHEMISTRY ORDERABLES Final Result [facility] [address] [place] [address], [facility] [phone] * ENDOSCOPY, COLON, SCREENING (11/29/2019) us Provider [...] participate in the care of your patient. [facility] utilizes EPIC as a reminder system to notify patients of their next recommended mammogram. Narrative 09/23/2017 9:22 AM CDT EXAMINATION: Digital screening mammogram on 09/18/2017. Low-dose full-field digital breast tomosynthesis examination was performed with synthetic 2D images and 3D acquisitions. Computer assisted detection was utilized. PRIOR: Mammogram from [facility] on 11/13/2004. BREAST PARENCHYMAL DENSITY: The breasts are almost entirely fatty. RISK ASSESSMENT CALCULATION: Based on the information provided by your patient, her lifetime risk of breast cancer is average (<15%). Additional quantitative risk model data and patient history details have been scanned as a document/letter in [facility] electronic medical record (media tab). Please note this information is only as accurate as the data entered by the patient. FINDINGS: No suspicious masses, areas of architectural distortion or microcalcifications are evident on synthetic 2D mammogram or tomosynthesis images. Postsurgical changes are seen in both breasts. Shilpa Frazier DO MAMMO ORDERABLES Final Res ult from Last 3 Months or Most Recently Relevant to Health Maintenance Additional Health Concerns Infection Onset Date Last Indicated MRSA Hx 09/04/2022 09/04/2022 MDRO Hx 04/01/2023 04/01/2023 MDRO 05/08/2023 05/08/2023 Insurance AETNA [facility] MANAGED MEDICARE ADV [facility] MANAGED MEDICARE ADV [place] [id number] Advance Directives Documents on File Type Date Recorded Patient Snuff Container Inspector Expl anation Adv Directive/Living Will/POA 09/16/2022 3:23 [...] 4:01 AM 05/11/2020 8:00 PM Care Teams Awake Overnight Monitor Relationship Specialty Start Date End Date Iron Galindo PA-C [address] [place] [address] PCP - General Physician Counter Clerk [employer] 02/12/23 Cresencio Ghosh MD [address] [facility] [address] [place] [id number] PCP - Attributed-[facility] NIKKI STL P4P 5/1/25 Lidia Barajas MD [address] [place], [address] Anesthesiology-Pain Management 06/03/19 Shilpa Gandhi MD [address] [place] [id number] Oncology 06/03/19 Cresencio Ghosh MD [address] [place] [phone] Internal Medicine Sleep Medicine 09/29/24
--- OUTSIDE RECORDS SUMMARY | 2024-11-28 19:25 | XMS_ITS | Clinical Summary ---
Author Organization [facility] Address [address] [place] [address] Phone Care Team Providers Care Car Parker Name Role Phone Unavailable Primary Care Provider Unavailabl e Social History Tobacco Use Types Packs/Day Years Used Date Smoking Tobacco: Never Assessed Comments Unknown Sex and Gender Information Value Date Recorded Sex Assigned at Not on file Legal Sex Female 3:52 AM MICA SPLITTER Gender Identity Not on file Sexual Orientation [...]
--- OUTSIDE RECORDS SUMMARY | 2024-11-28 19:25 | XMS_ITS | Encounter Summary ---
Author Organization [facility] Address [address] [place] [address] Care Team Providers Care Banking And Finance Instructor Name Role Phone Fiordaliza Snell MD Primary Care Provider Encounter Details Date Type Department Care Team (Late st Contact Info) Description 05/06/2001 Outpatient Historical [facility] Pratik Fisher MD [facility] [place] [address] Er, Authorized P NO ADDRESS ON FILE ABDOMINAL PAIN OTHER SPEC SITE (Primary Dx) Social History Tobacco Use Types Packs/Day Years Used Date Smoking Tobacco: Never Assessed Comments Unknown Sex and Gender Information Value Date Recorded Sex Assigned at Not on file Legal Sex Female 2:43 AM RETANNED LEATHER ROLLER Gender Identity Not on file Sexual Orientation Not on file documented as of this encounter Plan of Treatment Not on file documented as of this encounter Visit Diagnoses Diagnosis Abdominal pain, other specified site- Primary documented in this encounter Additional Health Concerns Infection Onset Date Last Indicated Resolved Time R/O COVID-19 07/02/2020 07/02/2020 07/02/2020 8:53 PM RETANNED LEATHER ROLLER MRSA Comment:Resolved per Type and Duration of Precautions Recommended for Selected Infections and Conditions document 2023 update 07/02/2020 07/02/2020 03/16/20 24 10:58 AM CDT R/O COVID-19 07/10/2020 07/10/2020 07/10/2020 5:01 PM RETANNED LEATHER ROLLER documented as of this encounter Care Teams Banking And Finance Instructor Relationship Specialty Start Date End Date Fiordaliza Snell MD PCP - General Family Practice 09/09/22 documented as of this encounter
--- OUTSIDE RECORDS SUMMARY | 2024-11-28 19:25 | XMS_ITS | Encounter Summary ---
Author Organization [facility] Address [address] [place] [address] Care Team Providers Care Batch Maker Name Role Phone Shilpa Frazier DO Primary Care Provider Lidia Barajas MD Unavailable Ab Melara MD Primary Care Provid er Encounter Details Date Type Department Care Team (Late st Contact Info) Description 06/15/2018 Telephone [facility] [address] [place] [address] Emil Clarke, RT Social History Tobacco Use Types Packs/Day Years Used Date Smoking Tobacco: Never Smokeless Tobacco: Never Alcohol Use Standard Drinks/Week Comments No 0 (1 standard drink = 0.6 oz pur e alcohol) Comments No Sex and Gender Information Value Date Recorded Sex Assigned at Not on file Legal Sex Female 11:49 PM CALCIMINER Gender Identity Not on file Sexual Orientation [...] DT MRSA 12/27/2021 03/06/2022 09/02/2022 3:05 AM CALCIMINER documented as of this encounter Care Teams Batch Maker Relationship Specialty Start Date End Date Frazier Shilpaolimpia Law DO PCP - General 06/12/18 07/15/21 Ab Melara MD [address] [id number] PCP - General Family Medicine 07/16/21 Lidia Barajas MD Anesthesiologist Anesthesiology 01/13/20 documented as of this encounter
--- OUTSIDE RECORDS SUMMARY | 2024-11-28 19:25 | XMS_ITS | Patient Health Record ---
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 Problem Lumbosacral radiculopathy (6555300) Radiculopathy, lumbosacral region (M54.17) Active confirmed Plan Of Treatment No Information Insurance Providers Payer Name Payer Address Payer Phone Subscriber Number Group Number Insured Name Patient Relationship to Insured Coverage Start Date Coverage End Date [facility] [id number] [place] [address] [id number] Angelina Mcnulty Self - patient is the insured Medical (General) History Medical History History ICD Code HBP heart attack osteoarthritis fibromyalgia urinary incontinence headaches migraines stroke nerve damage IBS asthma chronic bronchitis pneumonia depression anxiety Surgical History Surgery Date(Month/Year) spine fusion & stimulator 2004 spine fusion 2006 spine fusion 2021
--- OUTSIDE RECORDS SUMMARY | 2024-11-28 19:25 | XMS_ITS | Encounter Summary ---
Author Organization [facility] Address [address] [place] [address] Care Team Providers Care Automatic Transmission Mechanic Name Role Phone Fiodraliza Snell MD Primary Care Provider Encounter Details Date Type Department Care Team (Late st Contact Info) Description 10/10/2003 Outpatient Historical [facility] Franki Grimes DO [address] [place] [address] Er, Authorized P NO ADDRESS ON FILE LUMBAGO (Primary Dx) Social History Tobacco Use Types Packs/Day Years Used Date Smoking Tobacco: Never Assessed Comments Unknown Sex and Gender Information Value Date Recorded Sex Assigned at Not on file Legal Sex Female 2:43 AM DESK CLERKS SUPERVISOR Gender Identity Not on file Sexual Orientation Not on file documented as of this encounter Plan of Treatment Not on file documented as of this encounter Visit Diagnoses Diagnosis Lumbago- Primary documented in this encounter Additional Health Concerns Infection Onset Date Last Indicated Resolved Time R/O COVID-19 07/02/2020 07/02/2020 07/02/2020 8:53 PM DESK CLERKS SUPERVISOR MRSA Comment:Resolved per Type and Duration of Precautions Recommended for Selected Infections and Conditions document 2023 update 07/02/2020 07/02/2020 03/16/20 24 10:58 AM CDT R/O COVID-19 07/10/2020 07/10/2020 07/10/2020 5:01 PM DESK CLERKS SUPERVISOR documented as of this encounter Care Teams Automatic Transmission Mechanic Relationship Specialty Start Date End Date Fiordaliza Snell MD PCP - General Family Practice 09/09/22 documented as of this encounter
--- OUTSIDE RECORDS SUMMARY | 2024-11-28 19:25 | XMS_ITS | Encounter Summary ---
Author Organization [facility] Address [address] [place] [address] Care Team Providers Care Investigation Division Captain Name Role Phone Fiordaliza Snell MD Primary [...] on file Legal Sex Female 2:43 AM DREDGE ENGINEER Gender Identity Not on file Sexual [...] ORDERABLES Final Resu lt Performing Organization Address [facility] Phone Number INTERFACE SYSTEM Refer to [...] ORDERABLES Final Resul t Performing Organization Address [facility] Phone Number INTERFACE SYSTEM Refer to clinic/hospital department * (ABNORMAL) AMYLASE (10/13/2004 9:56 AM CDT) AMYLASE 24(L) 28 - 100 U/L INTERFACE SYSTEM 10/13/2004 9:56 AM CDT Russell Marie CHEMISTRY ORDERABLES Final Resul t Performing Organization Address [facility] Phone Number INTERFACE SYSTEM Refer to clinic/hospital department * LIPASE (10/13/2004 9:56 AM CDT) LIPASE 20 13 - 60 U/L INTERFAC E SYSTEM 10/13/2004 9:56 AM CDT [facility] CHEMISTRY ORDERABLES Final Resul t Performing Organization Address [facility] Phone Number INTERFACE SYSTEM Refer to [...] K/uL INTERFACE SYSTEM 10/13/2004 5:00 AM CDT [facility] HEMATOLOGY ORDERABLES Final Resu lt Performing Organization Address [facility] Phone Number INTERFACE SYSTEM Refer to [...] ORDERABLES Final Resu lt Performing Organization Address [facility] Phone Number INTERFACE SYSTEM Refer to clinic/hospital department * (ABNORMAL) C-REACTIVE PROTEIN (10/13/2004 5:00 AM CDT) CRP 1.3(H) 0.0 - 0.8 mg/dL INTERFACE SYSTEM 10/13/2004 5:00 AM CDT Russell Salazar CHEMISTRY ORDERABLES Final Resul t Performing Organization Address [facility] Phone Number INTERFACE SYSTEM Refer to [...] URINE ORDERABLES Final Result Performing Organization Address [facility] de Phone Number INTERFACE SYSTEM [...] ORDERABLES Final Resu lt Performing Organization Address [facility] Phone Number INTERFACE SYSTEM Refer to clinic/hospital department * (ABNORMAL) C-REACTIVE PROTEIN (10/12/2004 9:17 PM CDT) CRP 1.4(H) 0.0 - 0.8 mg/dL INTERFACE SYSTEM 10/12/2004 9:[address] MD CHEMISTRY ORDERABLES Final Resul t Performing Organization Address [facility] Phone Number INTERFACE SYSTEM Refer to clinic/hospital department * LIPASE (10/12/2004 9:17 PM CDT) LIPASE 41 13 - 60 U/L INTERFAC E SYSTEM 10/12/2004 9:[address] MD CHEMISTRY ORDERABLES Final Resul t Performing Organization Address [facility] de Phone Number INTERFACE SYSTEM Refer to clinic/hospital department * AMYLASE (10/12/2004 9:17 PM CDT) AMYLASE 39 28 - 100 U/L INTERFACE SYSTEM Comment:Previous specimen us ed; approved by floor. 10/12/2004 9:[address] MD CHEMISTRY ORDERABLES Final Resul t Performing Organization Address [facility] Phone Number INTERFACE SYSTEM Refer to [...] ORDERABLES Final Resu lt Performing Organization Address [facility] Phone Number INTERFACE SYSTEM Refer to [...] ORDERABLES Final Resu lt Performing Organization Address [facility] Phone Number INTERFACE SYSTEM Refer to [...] ORDERABLES Final Resul t Performing Organization Address [facility] Phone Number INTERFACE SYSTEM Refer to clinic/hospital department documented in this encounter Visit Diagnoses Diagnosis Abdominal pain, right lower quadrant- Primary documented in this encounter Additional Health Concerns Infection Onset Date Last Indicated Resolved Time R/O COVID-19 07/02/2020 07/02/2020 07/02/2020 8:53 PM DREDGE ENGINEER MRSA Comment:Resolved per Type and Duration of Precautions Recommended for Selected Infections and Conditions document 2023 update 07/02/2020 07/02/2020 03/16/20 10:58 AM CDT R/O COVID-19 07/10/2020 07/10/2020 07/10/2020 5:01 PM DREDGE ENGINEER documented as of this encounter Care Teams Investigation Division Captain Relationship Specialty Start Date End Date Fiordaliza Snell MD PCP - General Family Practice 09/09/22 documented as of this encounter
--- OUTSIDE RECORDS SUMMARY | 2024-11-28 19:25 | XMS_ITS | Clinical Summary ---
Author Organization [facility] Address [address] [place] [address] Care Team Providers Care Real Estate Accountant Name Role Phone Unavailable Primary Care Provider [...] Comments Blood Pressure 152/77 05/21/2019 8:00 AM PROFESSOR OF KINESIOLOGY Pulse 75 05/21/2019 8:00 AM PROFESSOR OF KINESIOLOGY Temperature 36.3 C (97.3 F) 05/21/2019 8:00 AM PROFESSOR OF KINESIOLOGY Respiratory Rate 18 05/21/2019 8:00 AM PROFESSOR OF KINESIOLOGY Oxygen Saturation 98% 05/21/2019 8:00 AM PROFESSOR OF KINESIOLOGY Inhaled Oxygen Concentration - - Weight 108.9 kg (240 lb 1.6 oz) 05/09/2019 6:52 AM PROFESSOR OF KINESIOLOGY Height 172.7 cm (5' 8) 04/18/2019 12:2 3 AM CDT Body Mass Index 36.51 04/18/2019 12:23 AM CDT Plan of Treatment Not on file Advance Directives * Full Resuscitation (Latest Code Status on File) Date Activated Date Inactivated Comments 04/17/2019 6:55 PM 05/21/2019 6:27 PM * Full Resuscitation Date Activated Date Inactivated Comments 04/12/2019 3:46 PM 04/13/2019 7:31 PM
--- OUTSIDE RECORDS SUMMARY | 2024-11-28 19:26 | XMS_ITS | Encounter Summary ---
Author Organization [facility] Address [address] [place] [address] Care Team Providers Care Fitness Specialist Name Role Phone Fiordaliza Snell MD [...] file Legal Sex Female 2:43 AM NURSE TECHNICIAN Gender Identity Not on file Sexual Orientation Not on file documented as of this encounter Plan of Treatment Not on file documented as of this encounter Visit Diagnoses Diagnosis Excessive or frequent menstruation- Primary documented in this encounter Additional Health Concerns Infection Onset Date Last Indicated Resolved Time R/O COVID-19 07/02/2020 07/02/2020 07/02/2020 8:53 PM NURSE TECHNICIAN MRSA Comment:Resolved per Type and Duration of Precautions Recommended for Selected Infections and Conditions document 2023 update 07/02/2020 07/02/2020 03/16/20 24 10:58 AM CDT R/O COVID-19 07/10/2020 07/10/2020 07/10/2020 5:01 PM NURSE TECHNICIAN documented as of this encounter Care Teams Fitness Specialist Relationship Specialty Start Date End Date Fiordaliza Snell MD PCP - General Family Practice 09/09/22 documented as of this encounter
--- OUTSIDE RECORDS SUMMARY | 2024-11-28 19:26 | XMS_ITS | Clinical Summary ---
Author Organization [facility] Address [address] [place] [address] Care Team Providers Care Senior Quality Methods Specialist Name Role Phone Lidia Barajas MD Unavailable [...] for pain 42 tablet 2 Active multivit ntstpnhh-idkw-GF-c alcium (THERA-M) 9 mg iron-400 mcg tabletIndications: [...] (10/24/2021): Added automatically from request for surgery [id number] Postlaminectomy syndrome, lumbar region 10/25/19 Overview (10/24/2021): Added automatically from request for surgery [id number] Assessment & Plan (07/03/2022 3:48 PM SYSTEMS PROGRAMMER): Ms. Mcnulty is doing well following lumbar [...] (10/24/2021): Added automatically from request for surgery [id number] Other chest pain 01/19/2020 Assessment & Plan [...] need for exchange this admission Suprapubic catheter ([facility]) 11/16/2019 Essential hypertension 11/16/2019 Hypertensive urgency [...] (11/25/2019): Added automatically from request for surgery [id number] Chronic lumbar radiculopathy 01/21/2019 Chronic back pain 01/21/2019 Spinal stenosis of lumbar region with radiculopa thy 12/04/2018 Assessment & Plan (07/18/2021 10:23 AM SYSTEMS PROGRAMMER): Assessment Healed fusion L2-5 severe retrolisthesis with [...] (06/18/2018): Added automatically from request for surgery [id number] Assessment & Plan (12/04/2018 3:42 PM CDT): Healing fusion C6-7 Continued observation. Assessment & Plan (08/12/2018 10:35 AM SYSTEMS PROGRAMMER): Assessment Healing fusion C6-7 Plan Talked about do's and don'ts she is still to maintain her initial restrictions and return in 6 weeks for an x-ray Assessment & Plan (06/25/2018 2:43 PM SYSTEMS PROGRAMMER): Angelina was recently hospitalized at [facility] and diagnosed with a disc osteophyte [...] (06/18/2018): Added automatically from request for surgery [id number] Cervical pain (neck) 06/13/2018 Asthma 11/13/2013 Overview [...] Bladder tumor Acute CVA (cerebrovascular a ccident) ([facility]) 12/27/2021 Family History Medical History Relation [...] often do you attend chur ch or samaritan services? More than 4 times per year [...] place to sleep or slept in a alf (including now)? No 03/07/2022 Comments No Sex and Gender Information Value Date Recorded Sex Assigned at Not on file Legal Sex Female 11:49 PM SYSTEMS PROGRAMMER Gender Identity Not on file Sexual Orientation [...] 10:20 PM CDT Height 174 cm (5' 8.5) 03/05/2022 10:2 0 PM CDT Body Mass [...] Plan Chronic Care Management Worsening( 10:12 AM SYSTEMS PROGRAMMER) Milvia Mireles RN Note: Problem: Chronic Pain Goals: 1. Minimize further functional decline 2. Maximize quality of life 3. Control pain Strategies: - Activity/exercise program recommendation - Conservative stepwise pain medicine strategy with multi-disciplinary approach - Recommend healthy lifestyle strategies and compensatory methods as needed Medical Devices Implanted Type Area Excel Specialist Device Identifier Shelf Expiration Date Model / Serial / Lot Spinal Cord Stimulator-2016 Implanted:01/28 (Quantity not on file) Spinal Cord Stimulator Left: Hip Nevro Spinal Cord Stimulation System [id number] / / Description:Closed Bore only 1.5T or [...] Allograft Putty Syringe Graft 2.5cc Bone - [id number] Implanted:Qty: 1 on 07/03/2018 by Zachary Rothman MD at [facility] N/A: Spine Cervical [employer] Inc 03/29/2021 [id number] / / [id number] Plate 1-Level 14 Mm Cervical - [id number] Implanted:Qty: 1 on 07/03/2018 by Zachary Rothman MD at [facility] N/A: Spine Cervical [employer] 30-0114 / / Screw 4.0x14mm Self Drilling Variable - [id number] Implanted:Qty: 4 on 07/03/2018 by Zachary Rothman MD at [facility] N/A: Spine Cervical [employer] 31-4014 / / Cage Spinal [id number] 7 Degree Porous Coated Latex Free - [id number] Implanted:Qty: 1 on 07/03/2018 by Zachary Rothman MD at [facility] N/A: Spine Cervical Spinal Elements [id number] / / Depuy Synthes Spine [id number] Substitute Bone Graft Fibergraft Gps Medium Putty 6cc - [id number] Implanted:Qty: 1 on 11/29/2021 by Dave Louis MD at [facility] N/A: Lumbar-Sa cral Spine Depuy Synthes Spine [id number] 10/18/2023 [id number] / / [id number] [employer] Inc Osteosponge Allograft Chips Radiolucent Thk4-10mm Graft 30cc Bone [id number] - [id number] - [id number] Implanted:Qty: 1 on 11/29/2021 by Dave Louis MD at [facility] N/A: Lumbar-Sa cral Spine [employer] 10/14/2024 [id number] / [id number] / Depuy Synthes Spine Cage Post Spinal 4d Plif Ti [id number] - [id number] Implanted:Qty: 1 on 11/29/2021 by Dave Louis MD at [facility] N/A: Lumbar-Sa cral Spine Depuy Synthes Spine [id number] 07/30/2024 [id number] / / [id number] Depuy Synthes Spine Expedium 5.5mm 80mm Line Prebent Rodney Spinal Titanium Nonsterile [id number] - [id number] Implanted:Qty: 1 on 11/29/2021 by Dave Louis MD at [facility] N/A: Lumbar-Sa cral Spine Depuy Synthes Spine [id number] / / Depuy Synthes Spine Expedium 5.5mm 85mm Line Prebent Rodney Spinal Titanium Nonsterile [id number] - [id number] Implanted:Qty: 1 on 11/29/2021 by Dave Louis MD at [facility] N/A: Lumbar-Sa cral Spine Depuy Synthes Spine [id number] / / Depuy Synthes Spine Expedium 5.5mm 45mm Polyaxial Spine Screw Bone Titanium 5.5mm Rodney [id number] - [id number] Implanted:Qty: 2 on 11/29/2021 by Dave Louis MD at [facility] N/A: Lumbar-Sa cral Spine Depuy Synthes Spine [id number] / / Depuy Synthes Spine Expedium 6.5mm 45mm Polyaxial Spine Screw Bone Titanium 5.5mm Rodney [id number] - [id number] Implanted:Qty: 3 on 11/29/2021 by Dave Louis MD at [facility] N/A: Lumbar-Sa cral Spine Depuy Synthes Spine [id number] / / Depuy Synthes Spine Expedium 1 Inner Monoaxial Spine Screw Set Titanium [id number] - [id number] Implanted:Qty: 6 on 11/29/2021 by Dave Louis MD at [facility] N/A: Lumbar-Sa cral Spine Depuy Synthes Spine [id number] / / Depuy Synthes Spine Expedium 7mm 45mm 1 Innie Polyaxial Spine Screw Bone Titanium [id number] - [id number] Implanted:Qty: 1 on 11/29/2021 by Dave Louis MD at [facility] N/A: Lumbar-Sa cral Spine Depuy Synthes Spine [id number] / / Procedures Procedure Name Priority Date/Time [...] 11/29/2019 8:04 AM Admit Type: Inpatient Room: [facility] Date of : 1965 Instrument Name: [...] the bowel preparation was evaluated usingthe BBPS ([place] Bowel Preparation Scale) with scores of: Right [...] AM CDT) Hep A IgM Nonreactive Nonreactive [facility] Comment: Interpretive Data: If Hep A IgM Ab is reported as Equivocal, a new sample should be drawn in two weeks for testing. Current interpretive data was last revised on 19. Hep B core IgM Nonreactive Nonreactive [facility] Comment: Interpretive Data If HepB Core IgM Ab is reported as Equivocal, a new sample should be drawn in two weeks for testing. Current interpretive data was last revised on 19. Hep C Ab Nonreactive Nonreactive [facility] Comment: Interpretive Data Nonreactive: Antibodies to [...] revised on 2019. HepBsAg Nonreactive Nonreactive [facility] Blood specimen (specimen) 11/17/2019 4:13 AM CDT 11/17/2019 4:31 AM CDT [facility] MICROBIOLOGY - GENERAL ORDERABLES Final Result [facility] [address] [place] [address] from Last 3 Months or Most Recently Relevant to Health Maintenance Insurance UHC MEDICARE ADVANTAGE COUNT INCLUDES THE [facility] MEDICARE [id number] [place] [address] MEDICARE UHC MEDICARE ADVANTAGE Advance Directives For more information, please contact: [phone] Documents on File Type Date Recorded Patient Desktop Engineer Expl anation Power of Video Game Designer 11/29/2021 11:46 AM * Full Code (Latest [...] First Alternate Health Care Agent Care Teams Senior Quality Methods Specialist Relationship Specialty Start Date End Date Ab Melara MD [address] [address] PCP - General Family Medicine 07/16/21 Lidia Barajas MD Anesthesiologist Anesthesiology 01/13/20
--- OUTSIDE RECORDS SUMMARY | 2024-11-28 19:26 | XMS_ITS | Encounter Summary ---
Author Organization [facility] Healthcare Address [address] [place] [address] Care Team Providers Care Client Success Director Name Role Phone Shilpa Fraziermeera PEREZ Primary Care Provider Lidia Barajas MD Unavailable Ab Melara MD Primary Care Provid er Reason for Visit * Reason Onset Date Comments PRECALL ANTICOAG 02/18/2020 Encounter Details Date Type Department Care Team (Late st Contact Info) Description 02/18/2020 Telephone [facility] [address] [place] [address] Tori Arias RN PRECALL ANTICOAG [...] on file Legal Sex Female 11:49 PM MAINSPRING WINDER AND OILER Gender Identity Not on file Sexual Orientation [...] DT MRSA 12/27/2021 03/06/2022 09/02/2022 3:05 AM MAINSPRING WINDER AND OILER documented as of this encounter Care Teams Client Success Director Relationship Specialty Start Date End Date Shilpa Frazier DO PCP - General 06/12/18 07/15/21 Ab Melara MD [address] [address] PCP - General Family Medicine 07/16/21 Lidia Barajas MD Anesthesiologist Anesthesiology 01/13/20 documented as of this encounter
--- OUTSIDE RECORDS SUMMARY | 2024-11-28 19:26 | XMS_ITS | Encounter Summary ---
Author Organization [facility] Address [address] [place] [address] Care Team Providers Care Aquarium Specialist Name Role Phone Fiordaliza Snell MD [...] on file Legal Sex Female 2:43 AM SLOT SHIFT SUPERVISOR Gender Identity Not on file Sexual Orientation Not on file documented as of this encounter Plan of Treatment Not on file documented as of this encounter Visit Diagnoses Diagnosis Unspecified symptom associated with female genital organs- Primary documented in this encounter Additional Health Concerns Infection Onset Date Last Indicated Resolved Time R/O COVID-19 07/02/2020 07/02/2020 07/02/2020 8:53 PM SLOT SHIFT SUPERVISOR MRSA Comment:Resolved per Type and Duration of Precautions Recommended for Selected Infections and Conditions document 2023 update 07/02/2020 07/02/2020 03/16/20 24 10:58 AM CDT R/O COVID-19 07/10/2020 07/10/2020 07/10/2020 5:01 PM SLOT SHIFT SUPERVISOR documented as of this encounter Care Teams Aquarium Specialist Relationship Specialty Start Date End Date Fiordaliza Snell MD PCP - General Family Practice 09/09/22 documented as of this encounter
--- OUTSIDE RECORDS SUMMARY | 2024-11-28 19:26 | XMS_ITS | Encounter Summary ---
Author Organization [facility] Address [address] [place] [address] Care Team Providers Care Receiver Setter Name Role Phone Fiordaliza Snell MD Primary [...] on file Legal Sex Female 2:43 AM DOCUMENT MANAGEMENT CONSULTANT Gender Identity Not on file Sexual Orientation Not on file documented as of this encounter Plan of Treatment Not on file documented as of this encounter Visit Diagnoses Diagnosis Abdominal pain, unspecified site- Primary documented in this encounter Additional Health Concerns Infection Onset Date Last Indicated Resolved Time R/O COVID-19 07/02/2020 07/02/2020 07/02/2020 8:53 PM DOCUMENT MANAGEMENT CONSULTANT MRSA Comment:Resolved per Type and Duration of Precautions Recommended for Selected Infections and Conditions document 2023 update 07/02/2020 07/02/2020 03/16/20 24 10:58 AM CDT R/O COVID-19 07/10/2020 07/10/2020 07/10/2020 5:01 PM DOCUMENT MANAGEMENT CONSULTANT documented as of this encounter Care Teams Receiver Setter Relationship Specialty Start Date End Date Fiordaliza Snell MD PCP - General Family Practice 09/09/22 documented as of this encounter
--- OUTSIDE RECORDS SUMMARY | 2024-11-28 19:26 | XMS_ITS | Encounter Summary ---
Author Organization [facility] Address [address] [place] [address] Care Team Providers Care Dye Weigher Helper Name Role Phone Fiordaliza Snell MD [...] file Legal Sex Female 2:43 AM DOOR CLAMPER Gender Identity Not on file Sexual Orientation Not on file documented as of this encounter Plan of Treatment Not on file documented as of this encounter Visit Diagnoses Diagnosis Pelvic peritoneal adhesions, female (postoperative) (postinfection)- Primary documented in this encounter Additional Health Concerns Infection Onset Date Last Indicated Resolved Time R/O COVID-19 07/02/2020 07/02/2020 07/02/2020 8:53 PM DOOR CLAMPER MRSA Comment:Resolved per Type and Duration of Precautions Recommended for Selected Infections and Conditions document 2023 update 07/02/2020 07/02/2020 03/16/20 24 10:58 AM CDT R/O COVID-19 07/10/2020 07/10/2020 07/10/2020 5:01 PM DOOR CLAMPER documented as of this encounter Care Teams Dye Weigher Helper Relationship Specialty Start Date End Date Fiordaliza Snell MD PCP - General Family Practice 09/09/22 documented as of this encounter
--- OUTSIDE RECORDS SUMMARY | 2024-11-28 19:26 | XMS_ITS | Encounter Summary ---
Author Organization [facility] Address [address] [place] [address] Care Team Providers Care Odd Job Laborer Name Role Phone Fiordaliza Snell MD Primary [...] on file Legal Sex Female 2:43 AM ILLUMINATING ENGINEER Gender Identity Not on file Sexual Orientation Not on file documented as of this encounter Plan of Treatment Not on file documented as of this encounter Visit Diagnoses Diagnosis Closed fracture of lateral malleolus- Primary documented in this encounter Additional Health Concerns Infection Onset Date Last Indicated Resolved Time R/O COVID-19 07/02/2020 07/02/2020 07/02/2020 8:53 PM ILLUMINATING ENGINEER MRSA Comment:Resolved per Type and Duration of Precautions Recommended for Selected Infections and Conditions document 2023 update 07/02/2020 07/02/2020 03/16/20 24 10:58 AM CDT R/O COVID-19 07/10/2020 07/10/2020 07/10/2020 5:01 PM ILLUMINATING ENGINEER documented as of this encounter Care Teams Odd Job Laborer Relationship Specialty Start Date End Date Fiordaliza Snell MD PCP - General Family Practice 09/09/22 documented as of this encounter
--- OUTSIDE RECORDS SUMMARY | 2024-11-28 19:26 | XMS_ITS | Clinical Summary ---
Author Organization [facility] Address [address] [place] [address] Phone Care Team Providers Care Tower Dragline Operator Name Role Phone Fiordaliza Snell MD [...] migh t be different from the original. Clinical Phlebotomist - Dr. Eddie Tapia MD, [facility], [facility] - [address] [facility] Problem Noted Date Diagnosed Date YAJAIRA [...] NOS Added automatically from request for surgery [id number] Last Assessment & Plan: Healing fusion C6-7 [...] (09/14/2021): Added automatically from request for surgery [id number] Cervical pain (neck) 06/13/2018 Intractable pain 10/13/2011 [...] 07/25/2020 Immunizations Immunization Administration Dates Next Due (SecureAlert)(12 YR UP) COVID-19 VACCINE - EMERGENCY USE AUTHORIZATION, MRNA, [id number](PF) 30 MCG/0.3 ML IM SUSP 12/13/2020,11/20/2020 (PNEUMOVAX [...] on file Legal Sex Female 2:43 AM PRODUCT SAFETY TECHNICAL ASSISTANT Gender Identity Not on file Sexual [...] CDT Respiratory Rate 18 07/12/2020 9:24 PM PRODUCT SAFETY TECHNICAL ASSISTANT Oxygen Saturation 97% 04/20/2021 2:12 PM CDT Inhaled Oxygen Concentration - - Weight 91.6 kg (202 lb) 08/07/2020 2:15 PM PRODUCT SAFETY TECHNICAL ASSISTANT Height 172.7 cm (5' 8) 04/20/2021 2:12 PM CDT Body Mass Index 30.71 08/07/2020 2:15 PM PRODUCT SAFETY TECHNICAL ASSISTANT Plan of Treatment Health Maintenance Due Date [...] Advance Directives For more information, please contact: [phone] * Full Code (Latest Code Status on File) Date Activated Date Inactivated Comments 07/02/2020 10:50 PM 07/13/2020 1:53 PM * Full Code Date Activated Date Inactivated Comments 06/26/2011 3:20 AM 06/26/2011 8:40 PM Care Teams Tower Dragline Operator Relationship Specialty Start Date End Date Fiordaliza Snell MD PCP - General Family Practice 09/09/22
--- OUTSIDE RECORDS SUMMARY | 2024-11-28 19:26 | XMS_ITS | Continuity of Care Document ---
Author Organization [facility] Address [address] [place] [address] Phone Care Team Providers Care Database Analyst Name Role Phone Shreyas Dumont MD Unavailable Unavailable Allergies, Adverse Reactions, Alerts Substance Reaction Status Criticality Sulfa (Sulfonamide Antibiotics) Hives Active No Information Penicillins Hives Active No Information TAPE, OCCLUSIVE ADHESIVE Active No Information Penicillins Unknown Active No Information Medications Medication Instructions Dosage Effective Dates (start - stop) Status Comments Hanna 5 mg-325 mg tablet take 1-2 tabs [...] VIEWS 2015 OFFICE/OUTPATIENT VISIT EST OFFICE/OUTPATIENT VISIT [facility] Advance Directives Directive Yes / No Effective Date File Name No Information Encounters Encounter Description Practice Location Reason(s) For Visit Diagnoses Date Provider Providers Copied on Encounter [facility], [address], [place], [address], [place] [phone] [facility] [place] Ulnar neuropathy at elbow, leftPostopera tive visit 0 7 Tim Pritchett. [address], [place], [place], [id number] . tel: [phone] [facility], [address] [address], [place], [address], [place] tel:[phone] [facility] Ulnar neuropathy at elbow, left 8 7 Paul Handley. [address], [place], [place], [address] . tel: [phone] [facility], [address] [address], [place], [address], [place] [phone] [facility] Numbness of left hand 7- 7 Tim Pritchett. [address], [place], [place], [id number] . tel: [phone] [facility], [address] [address], [place], [address], [place] [phone] [facility] [place] Postoperative visit 6 Tim Pritchett. [address], [place], [place], [id number] . tel: [phone] [facility], [address] [facility] [facility], [place], [address], [place] tel:[phone] [facility] Ulnar neuropathy at elbow, left 6 Tim Pritchett. [address], [place], [place], [id number] . tel: [phone] OFFICE/OUTPA TIENT VISIT EST [facility], [address], [place], [address], [place] tel:[phone] [facility] Pain in left elbowUlnar neuropathy at elbow, left 6 Tim Pritchett. [address], [place], [place], [id number] . tel: [phone] OFFICE/OUTPA TIENT VISIT EST [facility], [address], [place], [address], [place] [phone] [facility] [place] Pain in left elbowUlnar neuritis, left 6 Tim Pritchett. [address], [place], [place], [address] . tel: [phone] Referring Provider: Migue Caruso [facility] [address], [place], [address]. [phone] OFFICE/OUTPA TIENT VISIT [facility], [address], [place], [address], [place] [phone] [facility] evwv left thumb/hand (chief complaint) Primary osteoarthriti s of first carpometacarp al joint of left handDe Quervain's tenosynovitis 6 Ciera Brice. [address] [place], [place], [id number] . tel: [phone] Family History Family Member Type Diagnosis Age At Onset Father Problem (finding) Cancer, unknown Payers Payer name Insurance type Covered republican [...]
--- OUTSIDE RECORDS SUMMARY | 2024-11-28 19:26 | XMS_ITS | Continuity of Care Document ---
Author Organization [facility] Address [address] [place] [address] Phone Care Team Providers Care Glove Turner And Former Name Role Phone Jon Rodriguez MD Unavailable Unavailable Advance Directives Directive Yes / No Effective Date File Name No Information Encounters Encounter Description Practice Location Reason(s) For Visit Diagnoses Date Provider Providers Copied on Encounter [facility], [address] [facility], [place], [place], [id number], tel:[phone] [facility] LUMBAGO 0 Michael Webb. [address] [place] [address], [id number], . tel:[phone] [facility], [address] [facility], [place], [place], [address], tel:[phone] [facility] LUMBOSACRAL NEURITIS NOS 0 Ranjith Salazar. [address] [place] [address], [id number], . tel:[phone] [facility] Box Replaced by [facility], [place], [place], [address], tel:[phone] [facility] SPINAL STENOSIS-LUMBA R 8 No Information [facility] Box Replaced by [facility], [place], [place], [address], tel:[phone] [facility] JOINT DIS NEC-PELVIS 8 No Information [facility] [address] [place] [address], [id number], tel:[phone] [facility] (Ip[facility] ARTHRODESIS STATUS 7 Michael Webb. [address] [place], [place], [id number], [place]. tel:[phone] [facility], [address] [facility], [place], [place], [id number], [place] tel:[phone] [facility] (Ip) LUMBAR DISC DISPLACEMENT 7 Michael Webb. [address] [facility], [place], [place], [address], [place]. tel:[phone] [facility], [address] [facility], [place], [place], [address], [place] tel:[phone] [facility] (Op) PREOP RESPIRATORY EXAM 7 No Information [facility], [address]placed by [facility], [place], [place], [address], [place] tel:[phone] [facility] (Op) PAIN IN LIMB 7 Michael Webb. [address] [place] [address], [place], [place], [address], [place]. tel:[phone] [facility], [address] [facility], [place], [place], [id number], [place] tel:[phone] [facility] CERVICALGIA 6 Juliann Gibson. [address], [place], [place], [address], [place]. tel:[phone] [facility], [address] [place] [address], [id number], [place] tel:[phone] [facility] OTH ADV EFF MED/BIO SUB 6 No Information [facility], [address] by [facility], [place], [place], [id number], [place] tel:[phone] [facility] (Er) FALL NOS 2200 6 Monica Tapia. [address], [place], [place], [address]. tel:[phone] [facility], [address] Replaced by [facility], [place], [place], [address], [place] tel:[phone] [facility] (Op) HEADACHE 5200 6 Ranjith Salazar. [address], [place], [place], [address], [place]. tel:[phone] [facility], [address] Replaced by [facility], [place], [place], [address], tel:[phone] [facility] (Op) HEAD INJURY NOS 6 Michael Castellano [address] [place], [place], [id number], . tel:[phone] [facility], [address] Replaced by [facility], [place], [place], [address], tel:[phone] [facility] (Er) CERVICAL SPINAL STENOSIS 6 Juliann Sauceda [address] [place] [address], [id number], . tel:[phone] [facility], Box Replaced by [facility], [place], [place], [address], tel:[phone] [facility] (Er) BRACHIAL NEURITIS NOS 6 Juliann Sauceda [address] [place] [address], [id number], . tel:[phone] [facility], Box Replaced by [facility], [place], [place], [address], tel:[phone] [facility] (Ip) FOLLOW-UP SURGERY NOS 4 Michael Castellano [address] [place], [place], [id number], . tel:[phone] [facility], Box Re[address] by [facility], [place], [place], [id number], tel:[phone] [facility] (Op) COUGH 4 No Information Family History [...]
--- OUTSIDE RECORDS SUMMARY | 2024-11-28 19:26 | XMS_ITS | Encounter Summary ---
Author Organization [facility] Address [address] [place] [address] Care Team Providers Care Gis Software Developer Name Role Phone Fiordaliza Snell [...] on file Legal Sex Female 2:43 AM SCOOPING MACHINE TENDER Gender Identity Not on file Sexual Orientation Not on file documented as of this encounter Plan of Treatment Not on file documented as of this encounter Visit Diagnoses Diagnosis Metrorrhagia- Primary documented in this encounter Additional Health Concerns Infection Onset Date Last Indicated Resolved Time R/O COVID-19 07/02/2020 07/02/2020 07/02/2020 8:53 PM SCOOPING MACHINE TENDER MRSA Comment:Resolved per Type and Duration of Precautions Recommended for Selected Infections and Conditions document 2023 update 07/02/2020 07/02/2020 03/16/20 24 10:58 AM CDT R/O COVID-19 07/10/2020 07/10/2020 07/10/2020 5:01 PM SCOOPING MACHINE TENDER documented as of this encounter Care Teams Gis Software Developer Relationship Specialty Start Date End Date Fiordaliza Snell MD PCP - General Family Practice 09/09/22 documented as of this encounter
--- OUTSIDE RECORDS SUMMARY | 2024-11-28 19:26 | XMS_ITS | Encounter Summary ---
Author Organization [facility] Address 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 Gender Identity Not on file Sexual Orientation Not on file documented as of this encounter Plan of Treatment Not on file documented as of this encounter Visit Diagnoses Diagnosis Lumbago- Primary documented in this encounter Additional Health Concerns Infection Onset Date Last Indicated Resolved Time R/O COVID-19 07/02/2020 07/02/2020 07/02/2020 8:53 PM AUTO BODY MAN MRSA Comment:Resolved per Type and Duration of Precautions Recommended for Selected Infections and Conditions document 2023 update 07/02/2020 07/02/2020 03/16/20 24 10:58 AM CDT R/O COVID-19 07/10/2020 07/10/2020 07/10/2020 5:01 PM AUTO BODY MAN documented as of this encounter Care Teams Sales Representative Facility Services Relationship Specialty Start Date End Date Fiordaliza Snell MD PCP - General Family Practice 09/09/22 documented as of this encounter
--- OUTSIDE RECORDS SUMMARY | 2024-11-28 19:26 | XMS_ITS | Encounter Summary ---
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
--- OUTSIDE RECORDS SUMMARY | 2024-11-28 19:26 | XMS_ITS | Encounter Summary ---
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
--- OUTSIDE RECORDS SUMMARY | 2024-11-28 19:26 | XMS_ITS | Continuity of Care Document ---
Author Organization [facility] Address [address] [facility] [facility] [address] [place] [address] Phone Care Team Providers Care African History Professor Name Role Phone Klaus ATKINSON MD, Denys Unavailable Unavailable Allergies, Adverse Reactions, Alerts Substance [...] tient visit,est, mod [facility], [address], [place], [place], [id number], [place] tel:[phone] [facility] r knee (chief complaint) Pain in right knee 4 Klaus Mcfarlane. [address] [place] [address], [place], [place], [id number], [place]. tel:[phone] Referring Provider: Martin Medina, [address] [place] [address] Suite [facility], [place], [address]. tel:[phone] [facility], [address] [place] [address], [id number], [place] tel:[phone] [facility] Pain in left shoulder 2 Klaus Mcfarlane. [address] [place] [address], [place], [place], [id number], [place]. tel:[phone] [facility], [address] [place] [address], [id number], [place] tel:[phone] [facility] fell Out Of Wheelchair And Shived Both Shoulders (chief complaint) Pain in left shoulderPain in right shoulder 2 Klaus Mcfarlane. [address] [place] [address], [place], [place], [id number], [place]. tel:[phone] Referring Provider: Martin Medina, [address] [place] [address] Suite [facility], [place], [address]. tel:[phone] [facility], [address] [place] [address], [id number], [place] tel:[phone] [facility] No Information Sep-2 0 No Information Referring Provider: Martin Medina, [address] [place] [address] Suite [facility], [place], [address]. tel:[phone] Family History Family Member Type Diagnosis Age [...]
--- OUTSIDE RECORDS SUMMARY | 2024-11-28 19:26 | XMS_ITS | Encounter Summary ---
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
--- OUTSIDE RECORDS SUMMARY | 2024-11-28 19:26 | XMS_ITS | Encounter Summary ---
Author Organization [facility] Address 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 Gender Identity Not on file Sexual Orientation Not on file documented as of this encounter Plan of Treatment Not on file documented as of this encounter Visit Diagnoses Diagnosis Surgical or other procedure not carried out because of patient's decision- Primary documented in this encounter Additional Health Concerns Infection Onset Date Last Indicated Resolved Time R/O COVID-19 07/02/2020 07/02/2020 07/02/2020 8:53 PM EXTRUDING DEPARTMENT SUPERVISOR MRSA Comment:Resolved per Type and Duration of Precautions Recommended for Selected Infections and Conditions document 2023 update 07/02/2020 07/02/2020 03/16/20 24 10:58 AM CDT R/O COVID-19 07/10/2020 07/10/2020 07/10/2020 5:01 PM EXTRUDING DEPARTMENT SUPERVISOR documented as of this encounter Care Teams Pulvi Mixer Operator Relationship Specialty Start Date End Date Fiordaliza Snell MD PCP - General Family Practice 09/09/22 documented as of this encounter
--- OUTSIDE RECORDS SUMMARY | 2024-11-28 19:26 | XMS_ITS | Encounter Summary ---
Author Organization [facility] Address 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 Gender Identity Not on file Sexual Orientation Not on file documented as of this encounter Plan of Treatment Not on file documented as of this encounter Visit Diagnoses Diagnosis Unspecified symptom associated with female genital organs- Primary documented in this encounter Additional Health Concerns Infection Onset Date Last Indicated Resolved Time R/O COVID-19 07/02/2020 07/02/2020 07/02/2020 8:53 PM E COMMERCE MARKETING ANALYST MRSA Comment:Resolved per Type and Duration of Precautions Recommended for Selected Infections and Conditions document 2023 update 07/02/2020 07/02/2020 03/16/20 24 10:58 AM CDT R/O COVID-19 07/10/2020 07/10/2020 07/10/2020 5:01 PM E COMMERCE MARKETING ANALYST documented as of this encounter Care Teams Medical Charge Entry Specialist Relationship Specialty Start Date End Date Fiordaliza Snell MD PCP - General Family Practice 09/09/22 documented as of this encounter
--- OUTSIDE RECORDS SUMMARY | 2024-11-28 19:26 | XMS_ITS | Referral Summary ---
Author Organization [facility] Address [address] [place] [address] Care Team Providers Care Senior Partner Name Role Phone Lidia Barajas MD Unavailable [...] for pain 42 tablet 2 Active multivit ehdeapve-ahtr-LS-c alcium (THERA-M) 9 mg iron-400 mcg tabletIndications: [...] (10/24/2021): Added automatically from request for surgery [id number] Postlaminectomy syndrome, lumbar region 10/25/19 Overview (10/24/2021): Added automatically from request for surgery [id number] Assessment & Plan (07/03/2022 3:48 PM KNOWLEDGE MANAGEMENT ADVISOR): Ms. Mcnulty is doing well following lumbar [...] (10/24/2021): Added automatically from request for surgery [id number] Other chest pain 01/19/2020 Assessment & Plan [...] need for exchange this admission Suprapubic catheter ([facility]) 11/16/2019 Essential hypertension 11/16/2019 Hypertensive urgency [...] (11/25/2019): Added automatically from request for surgery [id number] Chronic lumbar radiculopathy 01/21/2019 Chronic back pain 01/21/2019 Spinal stenosis of lumbar region with radiculopa thy 12/04/2018 Assessment & Plan (07/18/2021 10:23 AM KNOWLEDGE MANAGEMENT ADVISOR): Assessment Healed fusion L2-5 severe retrolisthesis with [...] (06/18/2018): Added automatically from request for surgery [id number] Assessment & Plan (12/04/2018 3:42 PM CDT): Healing fusion C6-7 Continued observation. Assessment & Plan (08/12/2018 10:35 AM KNOWLEDGE MANAGEMENT ADVISOR): Assessment Healing fusion C6-7 Plan Talked about do's and don'ts she is still to maintain her initial restrictions and return in 6 weeks for an x-ray Assessment & Plan (06/25/2018 2:43 PM KNOWLEDGE MANAGEMENT ADVISOR): Angelina was recently hospitalized at [facility] and diagnosed with a disc [...] (06/18/2018): Added automatically from request for surgery [id number] Cervical pain (neck) 06/13/2018 Asthma 11/13/2013 Overview [...] often do you attend chur ch or druze services? More than 4 times per year 03/07/2022 Do you belong to any clubs o r organizations such as baptism groups, unions, fraternal or athletic groups, or [...] place to sleep or slept in a longterm (including now)? No 03/07/2022 Comments No Sex and Gender Information Value Date Recorded Sex Assigned at Not on file Legal Sex Female 11:49 PM KNOWLEDGE MANAGEMENT ADVISOR Gender Identity Not on file Sexual Orientation [...] Plan Chronic Care Management Worsening( 10:12 AM KNOWLEDGE MANAGEMENT ADVISOR) Milvia Mireles RN Note: Problem: Chronic Pain Goals: 1. Minimize further functional decline 2. Maximize quality of life 3. Control pain Strategies: - Activity/exercise program recommendation - Conservative stepwise pain medicine strategy with multi-disciplinary approach - Recommend healthy lifestyle strategies and compensatory methods as needed Medical Devices Implanted Type Area Clearance Diver Device Identifier Shelf Expiration Date Model / Serial / Lot Spinal Cord Stimulator-2016 Implanted:01/28 (Quantity not on file) Spinal Cord Stimulator Left: Hip Nevro Spinal Cord Stimulation System [id number] / / Description:Closed Bore only 1.5T or [...] ensure it has returned to pre-MRI settings. [employer] 700-025 I Factor Allograft Putty Syringe Graft 2.5cc Bone - [id number] Implanted:Qty: 1 on 07/03/2018 by Zachary Rothman MD at [facility] N/A: Spine Cervical Cerapedics Inc 03/29/2021 700-025 / / [id number] Plate 1-Level 14 Mm Cervical - [id number] Implanted:Qty: 1 on 07/03/2018 by Zachary Rothman MD at [facility] N/A: Spine Cervical [employer]avation Llc 30-0114 / / Screw 4.0x14mm Self Drilling Variable - [id number] Implanted:Qty: 4 on 07/03/2018 by Zachary Rothman MD at [facility] N/A: Spine Cervical [employer]c [id number] / / Cage Spinal [id number] 7 Degree Porous Coated Latex Free - [id number] Implanted:Qty: 1 on 07/03/2018 by Zachary Rothman MD at [facility] N/A: Spine Cervical Spinal Elements [id number] / / Depuy Synthes Spine [id number] Substitute Bone Graft Fibergraft Gps Medium Putty 6cc - [id number] Implanted:Qty: 1 on 11/29/2021 by Dave Louis MD at [facility] N/A: Lumbar-Sa cral Spine Depuy Synthes Spine [id number] 10/18/2023 [id number] / / [id number] Bacterin International Inc Osteosponge Allograft Chips Radiolucent Thk4-10mm Graft 30cc Bone [id number] - [id number] - [id number] Implanted:Qty: 1 on 11/29/2021 by Dave Louis MD at [facility] N/A: Lumbar-Sa cral Spine [employer]in [employer] Inc 10/14/2024 [id number] / [id number] / Depuy Synthes Spine Cage Post Spinal 4d Plif Ti [id number] - [id number] Implanted:Qty: 1 on 11/29/2021 by Dave Louis MD at [facility] N/A: Lumbar-Sa cral Spine Depuy Synthes Spine [id number] 07/30/2024 [id number] / / [id number] Depuy Synthes Spine Expedium 5.5mm 80mm Line Prebent Rodney Spinal Titanium Nonsterile [id number] - [id number] Implanted:Qty: 1 on 11/29/2021 by Dave Louis MD at [facility] N/A: Lumbar-Sa cral Spine Depuy Synthes Spine [id number] / / Depuy Synthes Spine Expedium 5.5mm 85mm Line Prebent Rodney Spinal Titanium Nonsterile [id number] - [id number] Implanted:Qty: 1 on 11/29/2021 by Dave Louis MD at [facility] N/A: Lumbar-Sa cral Spine Depuy Synthes Spine [id number] / / Depuy Synthes Spine Expedium 5.5mm 45mm Polyaxial Spine Screw Bone Titanium 5.5mm Rodney [id number] - [id number] Implanted:Qty: 2 on 11/29/2021 by Dave Louis MD at [facility] N/A: Lumbar-Sa cral Spine Depuy Synthes Spine [id number] / / Depuy Synthes Spine Expedium 6.5mm 45mm Polyaxial Spine Screw Bone Titanium 5.5mm Rodney [id number] - [id number] Implanted:Qty: 3 on 11/29/2021 by Dave Louis MD at [facility] N/A: Lumbar-Sa cral Spine Depuy Synthes Spine [id number] / / Depuy Synthes Spine Expedium 1 Inner Monoaxial Spine Screw Set Titanium [id number] - [id number] Implanted:Qty: 6 on 11/29/2021 by Dave Louis MD at [facility] N/A: Lumbar-Sa cral Spine Depuy Synthes Spine [id number] / / Depuy Synthes Spine Expedium 7mm 45mm 1 Innie Polyaxial Spine Screw Bone Titanium [id number] - [id number] Implanted:Qty: 1 on 11/29/2021 by Dave Louis MD at [facility] N/A: Lumbar-Sa cral Spine Depuy Synthes Spine [id number] / / Procedures Procedure Name Priority Date/Time [...] the bowel preparation was evaluated usingthe BBPS (Blacklick Bowel Preparation Scale) with scores of: Right [...] AM CDT) Hep A IgM Nonreactive Nonreactive [facility] Comment: Interpretive Data: If Hep A IgM Ab is reported as Equivocal, a new sample should be drawn in two weeks for testing. Current interpretive data was last revised on 19. Hep B core IgM Nonreactive Nonreactive [facility] Comment: Interpretive Data If HepB Core IgM Ab is reported as Equivocal, a new sample should be drawn in two weeks for testing. Current interpretive data was last revised on 19. Hep C Ab Nonreactive Nonreactive [facility] Comment: Interpretive Data Nonreactive: Antibodies to [...] last revised on 2019. HepBsAg Nonreactive Nonreactive [facility] Blood specimen (specimen) 11/17/2019 4:13 AM CDT 11/17/2019 4:31 AM CDT [facility] MICROBIOLOGY - GENERAL ORDERABLES Final Result [facility] Zahraa Joshi [place] [address] from Last 3 Months or Most Recently Relevant to Health Maintenance Insurance U[employer] MEDICARE ADVANTAGE [facility] MEDICARE Address: [address] [address] [place] [address] [facility] MEDICARE [place] [address] [facility] MEDICARE [facility] MEDICARE ADVANTAGE [facility] MEDIC[facility] Address: [address] [address] [place] [address] Advance Directives For more information, please contact: [phone] Documents on File Type Date Recorded Patient Crosscutter Rolled Glass Expl anation Power of Head Neck Surgeon 11/29/2021 11:46 AM * Full Code (Latest [...] Alternate Health Care Agent Care Teams Senior Partner Relationship Specialty Start Date End Date Devabhaktuni, Ramadevi R., MD [address] [address] PCP - General Family Medicine 07/16/21 Lidia Barajas MD Anesthesiologist Anesthesiology 01/13/20
[2024-11-28 19:53] VITALS: BP 153/109; PULSE 101; RESP 16; TEMP 37; O2SAT 97
--- OUTSIDE RECORDS SUMMARY | 2024-11-29 00:16 | XMS_ITS | Encounter Summary ---
Author Organization [facility] Address 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 PROCESS OPERATOR Gender Identity Not on file Sexual Orientation Not on file documented as of this encounter Plan of Treatment Not on file documented as of this encounter Visit Diagnoses Diagnosis Chronic salpingitis and oophoritis- Primary documented in this encounter Additional Health Concerns Infection Onset Date Last Indicated Resolved Time R/O COVID-19 07/02/2020 07/02/2020 07/02/2020 8:53 PM BONE PROCESS OPERATOR MRSA Comment:Resolved per Type and Duration of Precautions Recommended for Selected Infections and Conditions document 2023 update 07/02/2020 07/02/2020 03/16/20 24 10:58 AM CDT R/O COVID-19 07/10/2020 07/10/2020 07/10/2020 5:01 PM BONE PROCESS OPERATOR documented as of this encounter Care Teams Robotics Application Engineer Relationship Specialty Start Date End Date Fiordaliza Snell MD PCP - General Family Practice 09/09/22 documented as of this encounter
--- OUTSIDE RECORDS SUMMARY | 2024-11-29 00:16 | XMS_ITS | Clinical Summary ---
Author Organization [facility] Address [address] [place] [address] Care Team Providers Care Billet Worker Name Role Phone Lidia Braajas MD Unavailable Shilpa Gandhi MD Unavailable Iron Galindo PA-C Primary Care Provide r Cresencio Ghosh MD Unavailable [phone] Cresencio Ghosh MD Unavailable Source Comments [facility],non-owned Affiliates and Associated Physician Practices is amultiple site organization consisting of ambulatory clinics and hospital sitesin [place], [place], [place] and [place]. This disclosure is being madepursuant to the Care Everywhere program and may not contain all information available regarding this patient. Last updated 18.[facility] Allergies Active Allergy Reactions Criticality Noted Date [...] (spasms) 90 tablet 2 3 Active Nystop 238467 UNIT/GM powder Apply to affected area 2 [...] Description 09/30/2024 8:15 AM CDT Video Visit [facility] [address] [place] [address] Cresencio Ghosh MD YAJAIRA on CPAP ; PLMD (periodic limb movement disorder); Restless legs syndrome (RLS); Malaise and fatigue; Hypertension, unspecified type; Insomnia due to medical condition; Circadian rhythm sleep disorder, irregular sleep wake type 09/29/2024 Refill [facility] [address] [place] [address] Cresencio Ghosh MD Refill Request from Last [...] care, and heating? Not very hard 04/02/2023 [facility] of Occupat ional Health - Occupational Stress [...] in a assisted (including now)? No 04/02/2023 Comments No Sex and Gender Information Value Date Recorded Sex Assigned at Not on file Legal Sex Female 6:02 AM RECONCILIATION CLERK Gender Identity Not on file Sexual Orientation Not on file Occupation Industry Job Start Date Job End Date Disabled Not on file Not on file Not on file Last Filed Vital Signs Vital Sign Reading Time Taken Comments Blood Pressure 157/91 05/07/2023 9:23 AM RECONCILIATION CLERK Pulse 86 05/07/2023 9:23 AM RECONCILIATION CLERK Temperature 36.3 C (97.3 F) 05/07/2023 9:23 AM RECONCILIATION CLERK Respiratory Rate 18 04/02/2023 3:00 PM CDT Oxygen Saturation 95% 05/07/2023 9:23 AM RECONCILIATION CLERK Inhaled Oxygen Concentration 97% 02/21/2021 1 [...] < 140/90 Blood Pressure 157/91(2022 9:23 AM RECONCILIATION CLERK) No Sierra Steiner Yearly PCP visit Lifestyle No White, Ava A Have labs drawn Lifestyle No White, Ava A Take recommended medication(s) Lifestyle No White, Ava A Use safety retraint in car Lifestyle No White, Ava A Complete Health Maintenance Screenings Lifestyle No White, Ava A Medical Devices Implanted Type Area Assistant Gm Of Content & Delivery Device Identifier Shelf Expiration Date Model / Serial / Lot Nevro Neurostimulator Senza [id number] (Implanted 2016) Floseal Hemostatic Matrix Implanted:Qty: 1 on 04/02/2019 by Maicol Mcneil DO at [facility] N/A: Spine [employer] 08/10/2020 [id number] / / [id number] Graft Tissue Drgn + Bvn Clgn Mtrx 1x1in Implanted:Qty: 1 on 04/02/2019 by Maicol Mcneil DO at [facility] N/A: Spine Integra Neurosciences 04/29/2021 [id number] / / [id number] Seal Tisseel Prima 1 Prefil Frz 4ml - [id number] Implanted:Qty: 1 on 04/02/2019 by Maicol Mcneil DO at [facility] N/A: Spine [employer] 08/27/2020 [id number] / [id number] / [id number] Impl Inj 1ml Coaptite Syr Bulk Agnt Implanted:Qty: 2 on 04/11/2020 by Dave Aparicio MD at [facility] N/A: Bladder [employer] Scimed 10/25/2022 [id number] / / [id number] Impl Inj 1ml Coaptite Syr Bulk Agnt Implanted:Qty: 2 on 02/05/2022 by Dave Aparicio MD at [facility] Bladder [employer] Scimed 10/16/2024 [id number] / / [id number] Stent Uret 7fr 80cm Str Cls Tip Llok Implanted:Qty: 1 on 09/03/2022 by Nel Cerna DO at [facility] Ureter [employer] Scimed 12/23/2025 [id number] / / [id number] Description:bilateral ureter s Procedures Procedure Name Priority [...] 7 - 26 mg/dL 04/02/2023 3:07 AM [facility] Creatinine 0.69 0.56 - 0.96 mg/dL 04/02/2023 3:07 AM [facility] Sodium 133(L) 136 - 145 mmol/L 04/02/2023 3:07 AM [facility] Potassium 3.9 3.5 - 4.5 mmol/L 04/02/2023 3:07 AM [facility] Chloride 102 98 - 107 mmol/L 04/02/2023 3:07 AM [facility] CO2 26 22 - 29 mmol/L [...] MD LAB - CHEMISTRY ORDERABLES Final Result [facility] [address] [place] [address], [facility] [phone] * ENDOSCOPY, COLON, SCREENING (11/29/2019) us Provider [...] participate in the care of your patient. [facility] Breast Care utilizes EPIC as a reminder system to notify patients of their next recommended mammogram. Narrative 09/23/2017 9:22 AM CDT EXAMINATION: Digital screening mammogram on 09/18/2017. Low-dose full-field digital breast tomosynthesis examination was performed with synthetic 2D images and 3D acquisitions. Computer assisted detection was utilized. PRIOR: Mammogram from [facility] on 11/13/2004. BREAST PARENCHYMAL DENSITY: The breasts are almost entirely fatty. RISK ASSESSMENT CALCULATION: Based on the information provided by your patient, her lifetime risk of breast cancer is average (<15%). Additional quantitative risk model data and patient history details have been scanned as a document/letter in [facility] electronic medical record (media tab). Please note [...] 04/01/2023 04/01/2023 MDRO 05/08/2023 05/08/2023 Insurance [employer] [facility] MANAGED MEDICARE ADV [facility] MANAGED MEDICARE [place]V [place] [id number] Advance Directives Documents on File Type Date Recorded Patient Physical Therapy Supervisor Expl anation Adv Directive/Living Will/POA 09/16/2022 3:23 [...] 4:01 AM 05/11/2020 8:00 PM Care Teams Billet Worker Relationship Specialty Start Date End Date Iron Galindo PA-C [address] [place] [address] PCP - General Physician Washcloth Folder 02/12/23 Cresencio Ghosh MD [address] [facility] [address] [place] [phone] PCP - Attributed-[facility] NIKKI STL P4P 5/1/25 Lidia Barajas MD [address] [place], [address] Anesthesiology-Pain Management 06/03/19 Shilpa Gandhi MD [address] [place] [id number] Oncology 06/03/19 Cresencio Ghosh MD [address] [place] [address] [place] [id number] Internal Medicine Sleep Medicine 09/29/24
--- OUTSIDE RECORDS SUMMARY | 2024-11-29 00:16 | XMS_ITS | Encounter Summary ---
Author Organization [facility] Address [address] [place] [address] Care Team Providers Care Associate Attorney Name Role Phone Foirdaliza Snell MD Primary Care Provider Encounter Details Date Type Department Care Team (Late st Contact Info) Description 10/10/2003 Outpatient Historical [facility] Franki Grimes DO [address] [place] [address] Er, Authorized P NO ADDRESS ON FILE [place] (Primary Dx) Social History Tobacco Use Types Packs/Day Years Used Date Smoking Tobacco: Never Assessed Comments Unknown Sex and Gender Information Value Date Recorded Sex Assigned at Not on file Legal Sex Female 2:43 AM PBX TECHNICIAN Gender Identity Not on file Sexual Orientation Not on file documented as of this encounter Plan of Treatment Not on file documented as of this encounter Visit Diagnoses Diagnosis Lumbago- Primary documented in this encounter Additional Health Concerns Infection Onset Date Last Indicated Resolved Time R/O COVID-19 07/02/2020 07/02/2020 07/02/2020 8:53 PM PBX TECHNICIAN MRSA Comment:Resolved per Type and Duration of Precautions Recommended for Selected Infections and Conditions document 2023 update 07/02/2020 07/02/2020 03/16/20 24 10:58 AM CDT R/O COVID-19 07/10/2020 07/10/2020 07/10/2020 5:01 PM PBX TECHNICIAN documented as of this encounter Care Teams Associate Attorney Relationship Specialty Start Date End Date Fiordaliza Snell MD PCP - General Family Practice 09/09/22 documented as of this encounter
--- OUTSIDE RECORDS SUMMARY | 2024-11-29 00:16 | XMS_ITS | Encounter Summary ---
Author Organization [facility] Address [address] [place] [address] Care Team Providers Care Applications Programmer Analyst Name Role Phone Fiordaliza Snell MD Primary [...] on file Legal Sex Female 2:43 AM ELECTRONIC GAME DEVELOPER Gender Identity Not on file Sexual Orientation Not on file documented as of this encounter Plan of Treatment Not on file documented as of this encounter Visit Diagnoses Diagnosis Other and unspecified ovarian cyst- Primary documented in this encounter Additional Health Concerns Infection Onset Date Last Indicated Resolved Time R/O COVID-19 07/02/2020 07/02/2020 07/02/2020 8:53 PM ELECTRONIC GAME DEVELOPER MRSA Comment:Resolved per Type and Duration of Precautions Recommended for Selected Infections and Conditions document 2023 update 07/02/2020 07/02/2020 03/16/20 24 10:58 AM CDT R/O COVID-19 07/10/2020 07/10/2020 07/10/2020 5:01 PM ELECTRONIC GAME DEVELOPER documented as of this encounter Care Teams Applications Programmer Analyst Relationship Specialty Start Date End Date Fiordaliza Snell MD PCP - General Family Practice 09/09/22 documented as of this encounter
--- OUTSIDE RECORDS SUMMARY | 2024-11-29 00:16 | XMS_ITS | Encounter Summary ---
Author Organization [facility] Address [address] [place] [address] Care Team Providers Care Edi Developer Name Role Phone Fiordaliza Snell MD [...] on file Legal Sex Female 2:43 AM ELECTRONICS ASSEMBLER AND TESTER Gender Identity Not on file Sexual [...] ORDERABLES Final Resu lt Performing Organization Address [facility] Phone Number INTERFACE SYSTEM Refer [...] ORDERABLES Final Resul t Performing Organization Address [facility] Phone Number INTERFACE SYSTEM Refer to clinic/hospital department * (ABNORMAL) AMYLASE (10/13/2004 9:56 AM CDT) AMYLASE 24(L) 28 - 100 U/L INTERFACE SYSTEM 10/13/2004 9:56 AM CDT Russell Marie CHEMISTRY ORDERABLES Final Resul t Performing Organization Address [facility] Phone Number INTERFACE SYSTEM Refer to clinic/hospital department * LIPASE (10/13/2004 9:56 AM CDT) LIPASE 20 13 - 60 U/L INTERFAC E SYSTEM 10/13/2004 9:56 AM CDT [facility] CHEMISTRY ORDERABLES Final Resul t Performing Organization Address [facility] Phone Number INTERFACE SYSTEM Refer [...] K/uL INTERFACE SYSTEM 10/13/2004 5:00 AM CDT [facility] HEMATOLOGY ORDERABLES Final Resu lt Performing Organization Address [facility] Phone Number INTERFACE SYSTEM Refer [...] ORDERABLES Final Resu lt Performing Organization Address [facility] Phone Number INTERFACE SYSTEM Refer to clinic/hospital department * (ABNORMAL) C-REACTIVE PROTEIN (10/13/2004 5:00 AM CDT) CRP 1.3(H) 0.0 - 0.8 mg/dL INTERFACE SYSTEM 10/13/2004 5:00 AM CDT Russell Salazar CHEMISTRY ORDERABLES Final Resul t Performing Organization Address [facility] Phone Number INTERFACE SYSTEM Refer [...] URINE ORDERABLES Final Result Performing Organization Address [facility] de Phone Number INTERFACE SYSTEM Refer to [...] ORDERABLES Final Resu lt Performing Organization Address [facility] Phone Number INTERFACE SYSTEM Refer to clinic/hospital department * (ABNORMAL) C-REACTIVE PROTEIN (10/12/2004 9:17 PM CDT) CRP 1.4(H) 0.0 - 0.8 mg/dL INTERFACE SYSTEM 10/12/2004 9:[address] MD CHEMISTRY ORDERABLES Final Resul t Performing Organization Address [facility] Phone Number INTERFACE SYSTEM Refer to clinic/hospital department * LIPASE (10/12/2004 9:17 PM CDT) LIPASE 41 13 - 60 U/L INTERFAC E SYSTEM 10/12/2004 9:[address] MD CHEMISTRY ORDERABLES Final Resul t Performing Organization Address [facility] de Phone Number INTERFACE SYSTEM Refer to clinic/hospital department * AMYLASE (10/12/2004 9:17 PM CDT) AMYLASE 39 28 - 100 U/L INTERFACE SYSTEM Comment:Previous specimen us ed; approved by floor. 10/12/2004 9:[address] MD CHEMISTRY ORDERABLES Final Resul t Performing Organization Address [facility] Phone Number INTERFACE SYSTEM Refer [...] ORDERABLES Final Resu lt Performing Organization Address [facility] Phone Number INTERFACE SYSTEM Refer [...] ORDERABLES Final Resu lt Performing Organization Address [facility] Phone Number INTERFACE SYSTEM Refer [...] ORDERABLES Final Resul t Performing Organization Address [facility] Phone Number INTERFACE SYSTEM Refer to clinic/hospital department documented in this encounter Visit Diagnoses Diagnosis Abdominal pain, right lower quadrant- Primary documented in this encounter Additional Health Concerns Infection Onset Date Last Indicated Resolved Time R/O COVID-19 07/02/2020 07/02/2020 07/02/2020 8:53 PM ELECTRONICS ASSEMBLER AND TESTER MRSA Comment:Resolved per Type and Duration of Precautions Recommended for Selected Infections and Conditions document 2023 update 07/02/2020 07/02/2020 03/16/20 10:58 AM CDT R/O COVID-19 07/10/2020 07/10/2020 07/10/2020 5:01 PM ELECTRONICS ASSEMBLER AND TESTER documented as of this encounter Care Teams Edi Developer Relationship Specialty Start Date End Date Fiordaliza Snell MD PCP - General Family Practice 09/09/22 documented as of this encounter
--- OUTSIDE RECORDS SUMMARY | 2024-11-29 00:16 | XMS_ITS | Clinical Summary ---
Author Organization [facility] Address [address] [place] [address] Phone Care Team Providers Care Architectural Project Captain Name Role Phone Unavailable Primary Care Provider Unavailabl e Social History Tobacco Use Types Packs/Day Years Used Date Smoking Tobacco: Never Assessed Comments Unknown Sex and Gender Information Value Date Recorded Sex Assigned at Not on file Legal Sex Female 3:52 AM TYPE DISK QUALITY CONTROL SUPERVISOR Gender Identity Not on file Sexual [...]
--- OUTSIDE RECORDS SUMMARY | 2024-11-29 00:16 | XMS_ITS | Encounter Summary ---
Author Organization [facility] Address [address] [place] [address] Care Team Providers Care Barrel Plater Name Role Phone Fiordaliza Snell MD Primary Care Provider Encounter Details Date Type Department Care Team (Late st Contact Info) Description 05/06/2001 Outpatient Historical [facility] Pratik Fisher MD [facility] [place] [address] Er, Authorized P NO ADDRESS ON FILE ABDOMINAL PAIN OTHER SPEC SITE (Primary Dx) Social History Tobacco Use Types Packs/Day Years Used Date Smoking Tobacco: Never Assessed Comments Unknown Sex and Gender Information Value Date Recorded Sex Assigned at Not on file Legal Sex Female 2:43 AM DATA MINER Gender Identity Not on file Sexual Orientation Not on file documented as of this encounter Plan of Treatment Not on file documented as of this encounter Visit Diagnoses Diagnosis Abdominal pain, other specified site- Primary documented in this encounter Additional Health Concerns Infection Onset Date Last Indicated Resolved Time R/O COVID-19 07/02/2020 07/02/2020 07/02/2020 8:53 PM DATA MINER MRSA Comment:Resolved per Type and Duration of Precautions Recommended for Selected Infections and Conditions document 2023 update 07/02/2020 07/02/2020 03/16/20 24 10:58 AM CDT R/O COVID-19 07/10/2020 07/10/2020 07/10/2020 5:01 PM DATA MINER documented as of this encounter Care Teams Barrel Plater Relationship Specialty Start Date End Date Fiordaliza Snell MD PCP - General Family Practice 09/09/22 documented as of this encounter
--- OUTSIDE RECORDS SUMMARY | 2024-11-29 00:16 | XMS_ITS | Encounter Summary ---
Author Organization [facility] Address [address] [place] [address] Care Team Providers Care Dextrine Mixer Name Role Phone Fiordaliza Snell MD Primary Care Provider Encounter Details Date Type Department Care Team (Latest Contact Info) Description 11/13/2004 Outpatient Historical [facility] RONALD Garcia, Anjali Gupta MD NO ADDRESS ON FILE LUMP OR MASS IN BREAST (Primary Dx) Social History Tobacco Use Types Packs/Day Years Used Date Smoking Tobacco: Never Assessed Comments Unknown Sex and Gender Information Value Date Recorded Sex Assigned at Not on file Legal Sex Female 2:43 AM RESEARCH AGRICULTURAL ENGINEER Gender Identity Not on file Sexual Orientation Not on file documented as of this encounter Plan of Treatment Not on file documented as of this encounter Visit Diagnoses Diagnosis Lump or mass in breast- Primary documented in this encounter Additional Health Concerns Infection Onset Date Last Indicated Resolved Time R/O COVID-19 07/02/2020 07/02/2020 07/02/2020 8:53 PM RESEARCH AGRICULTURAL ENGINEER MRSA Comment:Resolved per Type and Duration of Precautions Recommended for Selected Infections and Conditions document 2023 update 07/02/2020 07/02/2020 03/16/20 24 10:58 AM CDT R/O COVID-19 07/10/2020 07/10/2020 07/10/2020 5:01 PM RESEARCH AGRICULTURAL ENGINEER documented as of this encounter Care Teams Dextrine Mixer Relationship Specialty Start Date End Date Fiordaliza Snell MD PCP - General Family Practice 09/09/22 documented as of this encounter
--- OUTSIDE RECORDS SUMMARY | 2024-11-29 00:16 | XMS_ITS | Clinical Summary ---
Author Organization [facility] Address [address] [place] [address] Care Team Providers Care Manager Life Insurance Name Role Phone Unavailable Primary Care Provider [...] Comments Blood Pressure 152/77 05/21/2019 8:00 AM SURGICAL CLINICAL REVIEWER Pulse 75 05/21/2019 8:00 AM SURGICAL CLINICAL REVIEWER Temperature 36.3 C (97.3 F) 05/21/2019 8:00 AM SURGICAL CLINICAL REVIEWER Respiratory Rate 18 05/21/2019 8:00 AM SURGICAL CLINICAL REVIEWER Oxygen Saturation 98% 05/21/2019 8:00 AM SURGICAL CLINICAL REVIEWER Inhaled Oxygen Concentration - - Weight 108.9 kg (240 lb 1.6 oz) 05/09/2019 6:52 AM SURGICAL CLINICAL REVIEWER Height 172.7 cm (5' 8) 04/18/2019 12:2 [...]
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
--- OUTSIDE RECORDS SUMMARY | 2024-11-29 00:16 | XMS_ITS | Encounter Summary ---
Author Organization [facility] Address [address] [place] [address] Care Team Providers Care Hospitality Job Titles Name Role Phone Shilpa Frazier DO Primary Care Provider [phone] Lidia Barajas MD Unavailable Shilpa Gandhi MD Unavailable Massiel Melara MD Primary Care Provider [phone] Shilpa Frazier DO Primary Care Provider Iron Galindo PA-C Primary Care Provide r Cresencio Ghosh MD Unavailable [phone] Cresencio Ghosh MD Unavailable [phone] Cresencio Ghosh MD Unavailable [phone] Encounter Details Date Type Department Care Team (Late st Contact Info) Description 01/23/2015 Therapy Visit EXTERNAL NON-[facility] Sunny Reynoso MD [address] [address] Social History Tobacco Use Types Packs/Day Years Used Date Smoking Tobacco: Never Alcohol Use Standard Drinks/Week Comments Yes 0 (1 standard drink = 0.6 oz pur e alcohol) 1-2 year Comments Unknown Sex and Gender Information Value Date Recorded Sex Assigned at Not on file Legal Sex Female 6:02 AM EXTRUSION LINE OPERATOR Gender Identity Not on file Sexual [...] NO NEED FOR ISOLATION AT THIS TIME; CARROT GRADER INSPECTOR INF PREV [id number] 10/07/2019 10/07/2019 09/05/19 8:37 AM EXTRUSION LINE OPERATOR MRSA 10/07/2019 10/07/2019 01/29/2020 8:33 AM CDT MRSA 01/28/2020 01/28/2020 03/20/2020 7:45 AM CDT COVID-19 Under Investigation 04/06/2020 04/08/2020 04/09/2020 5:20 AM CDT MRSA 04/11/2020 04/11/2020 12/25/2020 9:00 AM CDT COVID-19 Under Investigation 08/07/2020 08/07/2020 08/08/2020 3:45 PM EXTRUSION LINE OPERATOR COVID-19 Under Investigation 08/11/2020 08/11/2020 08/12/2020 4:08 AM EXTRUSION LINE OPERATOR MRSA 05/13/2021 02/05/2022 09/04/2022 8:37 AM EXTRUSION LINE OPERATOR MRSA Hx 09/04/2022 09/04/2022 MDRO Comment:04/01/23 MDRO resolved, ES 02/23/2023 02/23/20232022 7:16 AM CDT MDRO Hx 04/01/2023 04/01/2023 MDRO 05/08/2023 05/08/2023 documented as of this encounter Care Teams Hospitality Job Titles Relationship Specialty Start Date End Date Shilpa Frazier DO [address] [facility] [address] [place] [address] PCP - General Family Medicine 08/06/17 07/31/20 Massiel Melara MD [address] [place] [address] PCP - General Family Medicine 08/01/20 10/01/20 Shilpa Frazier DO [address] [facility] [address] [place] [address] PCP - General Family Medicine 10/02/20 10/03/20 Iron Galindo PA-C [address] [address] [address] [place], [place] [id number] PCP - General Physician Beater Boss 02/12/23 Cresencio Ghosh MD [address] [place] [address] PCP - Attributed-[facility] P4 12/29/23 09/14/24 Cresencio Ghosh MD [address] [place] [address] PCP - Attributed-[facility] P4 10/28/24 Lidia Barajas MD [address] [facility] [address] Anesthesiology-Pain Management 06/03/19 Shilpa Gandhi MD [address] [place] [address] Oncology 06/03/19 Cresencio Ghosh MD [address] [place] [address] Internal Medicine Sleep Medicine 09/29/24 documented as of this encounter
--- OUTSIDE RECORDS SUMMARY | 2024-11-29 00:16 | XMS_ITS | Patient Health Record ---
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 Problem Lumbosacral radiculopathy (2128003) Radiculopathy, lumbosacral region (M54.17) Active confirmed Plan Of Treatment No Information Insurance Providers Payer Name Payer Address Payer Phone Subscriber Number Group Number Insured Name Patient Relationship to Insured Coverage Start Date Coverage End Date [facility] [address] [place] [address] [id number] Angelina Mcnulty Self - patient is the insured Medical (General) History Medical History History ICD Code HBP heart attack osteoarthritis fibromyalgia urinary incontinence headaches migraines stroke nerve damage IBS asthma chronic bronchitis pneumonia depression anxiety Surgical History Surgery Date(Month/Year) spine fusion & stimulator 2004 spine fusion 2006 spine fusion 2021
--- OUTSIDE RECORDS SUMMARY | 2024-11-29 00:16 | XMS_ITS | Encounter Summary ---
Author Organization [facility] Healthcare Address [address] [place] [address] Care Team Providers Care Bus Person Dishwasher Name Role Phone Unknown, Notinfile Primary Care Provider Unavail able Shilpa Frazier DO Primary Care Provider Lidia Barajas MD Unavailable Ab Melara MD Primary Care Provid er Encounter Details Date Type Department Care Team (Late st Contact Info) Description 04/07/2018 Telephone [facility] [address] [facility] [address] [place] [address] Kate Johnson, RT Social History Tobacco Use Types Packs/Day Years Used Date Smoking Tobacco: Never Smokeless Tobacco: Never Alcohol Use Standard Drinks/Week Comments No 0 (1 standard drink = 0.6 oz pur e alcohol) Comments No Sex and Gender Information Value Date Recorded Sex Assigned at Not on file Legal Sex Female 11:49 PM SHAREPOINT ANALYST Gender Identity Not on file Sexual [...] DT MRSA 12/27/2021 03/06/2022 09/02/2022 3:05 AM SHAREPOINT ANALYST documented as of this encounter Care Teams Bus Person Dishwasher Relationship Specialty Start Date End Date Unknown, Notinfile PCP - General 08/28/17 06/11/18 Shilpa Frazier DO PCP - General 06/12/18 07/15/21 Ab Melara MD [address] [address] PCP - General Family Medicine 07/16/21 Lidia Barajas MD Anesthesiologist Anesthesiology 01/13/20 documented as of this encounter
--- OUTSIDE RECORDS SUMMARY | 2024-11-29 00:16 | XMS_ITS | Encounter Summary ---
Author Organization [facility] Healthcare Address [address] [place] [address] Care Team Providers Care Traffic Supervisor Name Role Phone Shilpa Frazier DO Primary Care Provider Lidia Barajas MD Unavailable Ab Melara MD Primary Care Provid er Encounter Details Date Type Department Care Team (Late st Contact Info) Description 06/15/2018 Telephone [facility] [address] [facility] 1st [place] [address] Emil Clarke, RT Social History Tobacco Use Types Packs/Day Years Used Date Smoking Tobacco: Never Smokeless Tobacco: Never Alcohol Use Standard Drinks/Week Comments No 0 (1 standard drink = 0.6 oz pur e alcohol) Comments No Sex and Gender Information Value Date Recorded Sex Assigned at Not on file Legal Sex Female 11:49 PM CONSTRUCTION EQUIPMENT MECHANIC HELPER Gender Identity Not on file Sexual [...] DT MRSA 12/27/2021 03/06/2022 09/02/2022 3:05 AM CONSTRUCTION EQUIPMENT MECHANIC HELPER documented as of this encounter Care Teams Traffic Supervisor Relationship Specialty Start Date End Date Frazier Shilpaolimpia Law DO PCP - General 06/12/18 07/15/21 Ab Melara MD [address] [address] PCP - General Family Medicine 07/16/21 Lidia Barajas MD Anesthesiologist Anesthesiology 01/13/20 documented as of this encounter
--- OUTSIDE RECORDS SUMMARY | 2024-11-29 00:16 | XMS_ITS | Encounter Summary ---
Author Organization [facility] Address [address] [place] [address] Care Team Providers Care Computer Lab Para Professional Name Role Phone Fiordaliza Snell MD Primary Care Provider Encounter Details Date Type Department Care Team (Late st Contact Info) Description 04/18/2003 Outpatient Historical [facility] Otilia Florentino MD [facility] [place] [address] Er, Authorized P NO ADDRESS ON FILE ABDOMINAL PAIN RLQ (Primary Dx) Social History Tobacco Use Types Packs/Day Years Used Date Smoking Tobacco: Never Assessed Comments Unknown Sex and Gender Information Value Date Recorded Sex Assigned at Not on file Legal Sex Female 2:43 AM INSURANCE ACCOUNT MANAGER Gender Identity Not on file Sexual Orientation Not on file documented as of this encounter Plan of Treatment Not on file documented as of this encounter Visit Diagnoses Diagnosis Abdominal pain, right lower quadrant- Primary documented in this encounter Additional Health Concerns Infection Onset Date Last Indicated Resolved Time R/O COVID-19 07/02/2020 07/02/2020 07/02/2020 8:53 PM INSURANCE ACCOUNT MANAGER MRSA Comment:Resolved per Type and Duration of Precautions Recommended for Selected Infections and Conditions document 2023 update 07/02/2020 07/02/2020 03/16/20 24 10:58 AM CDT R/O COVID-19 07/10/2020 07/10/2020 07/10/2020 5:01 PM INSURANCE ACCOUNT MANAGER documented as of this encounter Care Teams Computer Lab Para Professional Relationship Specialty Start Date End Date Fiordaliza Snell MD PCP - General Family Practice 09/09/22 documented as of this encounter
--- OUTSIDE RECORDS SUMMARY | 2024-11-29 00:17 | XMS_ITS | Continuity of Care Document ---
Author Organization [facility] Address [address] [place] [address] Phone Care Team Providers Care Electric Motor Mechanic Name Role Phone Shreyas Dumont MD Unavailable Unavailable Allergies, Adverse Reactions, Alerts Substance Reaction Status Criticality Sulfa (Sulfonamide Antibiotics) Hives Active No Information Penicillins Hives Active No Information TAPE, OCCLUSIVE ADHESIVE Active No Information Penicillins Unknown Active No Information Medications Medication Instructions Dosage Effective Dates (start - stop) Status Comments G[place]on 5 mg-325 mg tablet take 1-2 tabs [...] VIEWS 2015 OFFICE/OUTPATIENT VISIT EST OFFICE/OUTPATIENT VISIT [facility] Advance Directives Directive Yes / No Effective Date File Name No Information Encounters Encounter Description Practice Location Reason(s) For Visit Diagnoses Date Provider Providers Copied on Encounter [facility], [address], [place], [address], [place] [phone] [facility] [place] Ulnar neuropathy at elbow, leftPostopera tive visit 0 7 Tim Pritchett. [address], [place], [place], [address] . tel: [phone] [facility], [address] [address], [place], [address], [place] tel:[phone] [facility] Ulnar neuropathy at elbow, left 8 7 Paul Handley. [address], [place], [place], [address] . tel: [phone] [facility], [address] [address], [place], [address], [place] [phone] [facility] Numbness of left hand 7- 7 Tim Pritchett. [address], [place], [place], [address] . tel: [phone] [facility], [address] [address], [place], [address], [place] [phone] [facility] Ty Postoperative visit 6 Tim Pritchett. [address], [place], [place], [address] . tel: [phone] [facility], [address] [address], [place], [address], [place] tel:[phone] [facility] Ulnar neuropathy at elbow, left 6 Tim Pritchett. [address], [place], [place], [address] . tel: [phone] OFFICE/OUTPA TIENT VISIT EST [facility], [address], [place], [address], [place] tel:[phone] [facility] [place] Pain in left elbowUlnar neuropathy at elbow, left 6 Tim Pritchett. [address], [place], [place], [address] . tel: [phone] OFFICE/OUTPA TIENT VISIT EST [facility], [address], [place], [address], [place] [phone] [facility] Ty Pain in left elbowUlnar neuritis, left 6 Tim Pritchett. [address], [place], [place], [address] . tel: [phone] Referring Provider: [facility] [address] [address], [place], [address]. [phone] OFFICE/OUTPA TIENT VISIT [facility], [address] [place], [address], [place] [phone] [facility] evny left thumb/hand (chief complaint) Primary osteoarthriti s of first carpometacarp al joint of left handDe Quervain's tenosynovitis 6 Ciera Brice. [address] [place], [place], [address] . tel: [phone] Family History Family Member Type Diagnosis Age [...]
--- OUTSIDE RECORDS SUMMARY | 2024-11-29 00:17 | XMS_ITS | Clinical Summary ---
Author Organization [facility] Address [address] [place] [address] Phone Care Team Providers Care Farmer Cash Grain Name Role Phone Fiordaliza Snell MD Primary [...] migh t be different from the original. Bumper Operator - Dr. Eddie Tapia MD, [facility], [facility] - [address] [facility] Problem Noted Date Diagnosed Date YAJAIRA [...] NOS Added automatically from request for surgery [id number] Last Assessment & Plan: Healing fusion C6-7 [...] (09/14/2021): Added automatically from request for surgery [id number] Cervical pain (neck) 06/13/2018 Intractable pain 10/13/2011 [...] 07/25/2020 Immunizations Immunization Administration Dates Next Due (Platypus Platform)(12 YR UP) COVID-19 VACCINE - EMERGENCY USE AUTHORIZATION, MRNA, [id number](PF) 30 MCG/0.3 ML IM SUSP 12/13/2020,11/20/2020 (PNEUMOVAX [...] on file Legal Sex Female 2:43 AM TICKET MANAGER Gender Identity Not on file Sexual [...] CDT Respiratory Rate 18 07/12/2020 9:24 PM TICKET MANAGER Oxygen Saturation 97% 04/20/2021 2:12 PM CDT Inhaled Oxygen Concentration - - Weight 91.6 kg (202 lb) 08/07/2020 2:15 PM TICKET MANAGER Height 172.7 cm (5' 8) 04/20/2021 2:12 PM CDT Body Mass Index 30.71 08/07/2020 2:15 PM TICKET MANAGER Plan of Treatment Health Maintenance Due [...] Advance Directives For more information, please contact: [phone] * Full Code (Latest Code Status on File) Date Activated Date Inactivated Comments 07/02/2020 10:50 PM 07/13/2020 1:53 PM * Full Code Date Activated Date Inactivated Comments 06/26/2011 3:20 AM 06/26/2011 8:40 PM Care Teams Farmer Cash Grain Relationship Specialty Start Date End Date Fiordaliza Snell MD PCP - General Family Practice 09/09/22
--- OUTSIDE RECORDS SUMMARY | 2024-11-29 00:17 | XMS_ITS | Encounter Summary ---
Author Organization [facility] Address [address] [place] [address] Care Team Providers Care Client Administrator Name Role Phone Fiordaliza Snell MD Primary [...] on file Legal Sex Female 2:43 AM X RAY TECHNICIAN Gender Identity Not on file Sexual Orientation Not on file documented as of this encounter Plan of Treatment Not on file documented as of this encounter Visit Diagnoses Diagnosis Metrorrhagia- Primary documented in this encounter Additional Health Concerns Infection Onset Date Last Indicated Resolved Time R/O COVID-19 07/02/2020 07/02/2020 07/02/2020 8:53 PM X RAY TECHNICIAN MRSA Comment:Resolved per Type and Duration of Precautions Recommended for Selected Infections and Conditions document 2023 update 07/02/2020 07/02/2020 03/16/20 24 10:58 AM CDT R/O COVID-19 07/10/2020 07/10/2020 07/10/2020 5:01 PM X RAY TECHNICIAN documented as of this encounter Care Teams Client Administrator Relationship Specialty Start Date End Date Fiordaliza Snell MD PCP - General Family Practice 09/09/22 documented as of this encounter
--- OUTSIDE RECORDS SUMMARY | 2024-11-29 00:17 | XMS_ITS | Referral Summary ---
Author Organization [facility] Address [address] [place] [address] Care Team Providers Care Awnings Mechanic Name Role Phone Lidia Barajas MD Unavailable [...] for pain 42 tablet 2 Active multivit xrmxfsnm-unmj-ZK-c alcium (THERA-M) 9 mg iron-400 mcg tabletIndications: [...] (10/24/2021): Added automatically from request for surgery [id number] Postlaminectomy syndrome, lumbar region 10/25/19 Overview (10/24/2021): Added automatically from request for surgery [id number] Assessment & Plan (07/03/2022 3:48 PM PROCEDURES NURSE): Ms. Mcnulty is doing well following lumbar [...] (10/24/2021): Added automatically from request for surgery [id number] Other chest pain 01/19/2020 Assessment & Plan [...] need for exchange this admission Suprapubic catheter ([facility]) 11/16/2019 Essential hypertension 11/16/2019 Hypertensive [...] (11/25/2019): Added automatically from request for surgery [id number] Chronic lumbar radiculopathy 01/21/2019 Chronic back pain 01/21/2019 Spinal stenosis of lumbar region with radiculopa thy 12/04/2018 Assessment & Plan (07/18/2021 10:23 AM PROCEDURES NURSE): Assessment Healed fusion L2-5 severe retrolisthesis with [...] (06/18/2018): Added automatically from request for surgery [id number] Assessment & Plan (12/04/2018 3:42 PM CDT): Healing fusion C6-7 Continued observation. Assessment & Plan (08/12/2018 10:35 AM PROCEDURES NURSE): Assessment Healing fusion C6-7 Plan Talked about do's and don'ts she is still to maintain her initial restrictions and return in 6 weeks for an x-ray Assessment & Plan (06/25/2018 2:43 PM PROCEDURES NURSE): Angelina was recently hospitalized at [facility] and diagnosed with a disc osteophyte complex [...] (06/18/2018): Added automatically from request for surgery [id number] Cervical pain (neck) 06/13/2018 Asthma 11/13/2013 Overview [...] often do you attend chur ch or baptism services? More than 4 times per year 03/07/2022 Do you belong to any clubs o r organizations such as sikh groups, unions, fraternal or athletic groups, or [...] on file Legal Sex Female 11:49 PM PROCEDURES NURSE Gender Identity Not on file Sexual Orientation [...] Plan Chronic Care Management Worsening( 10:12 AM PROCEDURES NURSE) Milvia Mireles RN Note: Problem: Chronic Pain Goals: 1. Minimize further functional decline 2. Maximize quality of life 3. Control pain Strategies: - Activity/exercise program recommendation - Conservative stepwise pain medicine strategy with multi-disciplinary approach - Recommend healthy lifestyle strategies and compensatory methods as needed Medical Devices Implanted Type Area Blister Packing Machine Tender Device Identifier Shelf Expiration Date Model / Serial / Lot Spinal Cord Stimulator-2016 Implanted:01/28 (Quantity not on file) Spinal Cord Stimulator Left: Hip Nevro Spinal Cord Stimulation System [id number] / / Description:Closed Bore only 1.5T or [...] ensure it has returned to pre-MRI settings. [employer] 700-025 I Factor Allograft Putty Syringe Graft 2.5cc Bone - [id number] Implanted:Qty: 1 on 07/03/2018 by Zachary Rothman MD at [facility] N/A: Spine Cervical [employer] 03/29/2021 700-025 / / [id number] Plate 1-Level 14 Mm Cervical - [id number] Implanted:Qty: 1 on 07/03/2018 by Zachary Rothman MD at [facility] N/A: Spine Cervical [employer] 30-0114 / / Screw 4.0x14mm Self Drilling Variable - [id number] Implanted:Qty: 4 on 07/03/2018 by Zachary Rothman MD at [facility] N/A: Spine Cervical [employer] [id number] / / Cage Spinal [id number] 7 Degree Porous Coated Latex Free - [id number] Implanted:Qty: 1 on 07/03/2018 by Zachary Rothman MD at [facility] N/A: Spine Cervical Spinal Elements [id number] / / Depuy Synthes Spine [id number] Substitute Bone Graft Fibergraft Gps Medium Putty 6cc - [id number] Implanted:Qty: 1 on 11/29/2021 by Dave Louis MD at [facility] N/A: Lumbar-Sa cral Spine Depuy Synthes Spine [id number] 10/18/2023 [id number] / / [id number] [employer] Osteosponge Allograft Chips Radiolucent Thk4-10mm Graft 30cc Bone [id number] - [id number] - [id number] Implanted:Qty: 1 on 11/29/2021 by Dave Louis MD at [facility] N/A: Lumbar-Sa cral Spine [employer] 10/14/2024 [id number] / [id number] / Depuy Synthes Spine Cage Post Spinal 4d Plif Ti [id number] - [id number] Implanted:Qty: 1 on 11/29/2021 by Dave Louis MD at [facility] N/A: Lumbar-Sa cral Spine Depuy Synthes Spine [id number] 07/30/2024 [id number] / / [id number] Depuy Synthes Spine Expedium 5.5mm 80mm Line Prebent Rodney Spinal Titanium Nonsterile [id number] - [id number] Implanted:Qty: 1 on 11/29/2021 by Dave Louis MD at [facility] N/A: Lumbar-Sa cral Spine Depuy Synthes Spine [id number] / / Depuy Synthes Spine Expedium 5.5mm 85mm Line Prebent Rodney Spinal Titanium Nonsterile [id number] - [id number] Implanted:Qty: 1 on 11/29/2021 by Dave Louis MD at [facility] N/A: Lumbar-Sa cral Spine Depuy Synthes Spine [id number] / / Depuy Synthes Spine Expedium 5.5mm 45mm Polyaxial Spine Screw Bone Titanium 5.5mm Rodney [id number] - [id number] Implanted:Qty: 2 on 11/29/2021 by Dave Louis MD at [facility] N/A: Lumbar-Sa cral Spine Depuy Synthes Spine [id number] / / Depuy Synthes Spine Expedium 6.5mm 45mm Polyaxial Spine Screw Bone Titanium 5.5mm Rodney [id number] - [id number] Implanted:Qty: 3 on 11/29/2021 by Dave Louis MD at [facility] N/A: Lumbar-Sa cral Spine Depuy Synthes Spine [id number] / / Depuy Synthes Spine Expedium 1 Inner Monoaxial Spine Screw Set Titanium [id number] - [id number] Implanted:Qty: 6 on 11/29/2021 by Dave Louis MD at [facility] N/A: Lumbar-Sa cral Spine Depuy Synthes Spine [id number] / / Depuy Synthes Spine Expedium 7mm 45mm 1 Innie Polyaxial Spine Screw Bone Titanium [id number] - [id number] Implanted:Qty: 1 on 11/29/2021 by Dave Louis MD at [facility] N/A: Lumbar-Sa cral Spine Depuy Synthes Spine [id number] / / Procedures Procedure Name Priority Date/Time [...] 11/29/2019 8:04 AM Admit Type: Inpatient Room: [facility] 4 Date of : 1965 Instrument [...] the bowel preparation was evaluated usingthe BBPS ([place] Bowel Preparation Scale) with scores of: Right [...] AM CDT) Hep A IgM Nonreactive Nonreactive [facility] Comment: Interpretive Data: If Hep A IgM Ab is reported as Equivocal, a new sample should be drawn in two weeks for testing. Current interpretive data was last revised on 19. Hep B core IgM Nonreactive Nonreactive [facility] Comment: Interpretive Data If HepB Core IgM Ab is reported as Equivocal, a new sample should be drawn in two weeks for testing. Current interpretive data was last revised on 19. Hep C Ab Nonreactive Nonreactive [facility] Comment: Interpretive Data Nonreactive: Antibodies to HCV [...] last revised on 2019. HepBsAg Nonreactive Nonreactive [facility] Blood specimen (specimen) 11/17/2019 4:13 AM CDT 11/17/2019 4:31 AM CDT [facility] MICROBIOLOG[facility] - GENERAL ORDERABLES Final Result [facility] Zahraa Joshi Seth Department [place] [address] from Last 3 Months or Most Recently Relevant to Health Maintenance Insurance U[employer] MEDICARE ADVANTAGE [facility]IC[facility] Address: [address] [place] [address] [place] [address] [facility] MEDICARE [facility] MEDICARE ADVANTAGE Advance Directives For more information, please contact: [phone] Documents on File Type Date Recorded Patient Tapper Hand Expl anation Power of Reed Or Wind Instrument Repairer 11/29/2021 11:46 AM * Full Code (Latest [...] First Alternate Health Care Agent Care Teams Awnings Mechanic Relationship Specialty Start Date End Date Devabhaktuni, Ramadevi R., MD [address] [address] PCP - General Family Medicine 07/16/21 Lidia Barajas MD Anesthesiologist Anesthesiology 01/13/20
--- OUTSIDE RECORDS SUMMARY | 2024-11-29 00:17 | XMS_ITS | Continuity of Care Document ---
Author Organization [facility] Address [address] [place] [address] Phone Care Team Providers Care Aerospace Assembler Name Role Phone Jon Rodriguez MD Unavailable Unavailable Advance Directives Directive Yes / No Effective Date File Name No Information Encounters Encounter Description Practice Location Reason(s) For Visit Diagnoses Date Provider Providers Copied on Encounter [facility], Box [facility], [place], [place], [id number], tel:[phone] [facility] LUMBAGO 0 Michael Webb. [address] [place] [address], [id number], . tel:[phone] [facility], [address] [facility], [place], [place], [address], tel:[phone] [facility] LUMBOSACRAL NEURITIS NOS 0 Ranjith Salazar. [address] [place] [address], [id number], . tel:[phone] [facility] [address] [facility], [place], [place], [address], tel:[phone] [facility] SPINAL STENOSIS-LUMBA R 8 No Information [facility] [address] [facility], [place], [place], [address], tel:[phone] [facility] JOINT DIS NEC-PELVIS 8 No Information [facility] [address] [place] [address], [id number], tel:[phone] [facility] [place] (Ip) ARTHRODESIS STATUS 7 Michael Webb. [address] [place], [place], [address], [place]. tel:[phone] [facility], [address] [facility], [place], [place], [address], [place] tel:[phone] [facility] [place] (Ip) LUMBAR DISC DISPLACEMENT 7 Michael Webb. [address] [facility], [place], [place], [address], [place]. tel:[phone] [facility], [address] [facility], [place], [place], [address], [place] tel:[phone] [facility] [place] (Op) PREOP RESPIRATORY EXAM 7 No Information [facility], [address] [facility], [place], [place], [address], [place] tel:[phone] [facility] [place] (Op) PAIN IN LIMB 7 Michael Webb. [address] [place] [address], [place], [place], [id number], [place]. tel:[phone] [facility], [address] [facility], [place], [place], [address], [place] tel:[phone] [facility] CERVICALGIA 6 Juliann Gibson. [address], [place], [place], [address], [place]. tel:[phone] [facility], [address] [place] [address], [id number], [place] tel:[phone] [facility] OTH ADV EFF MED/BIO SUB 6 No Information [facility], [address] [facility], [place], [place], [id number], [place] tel:[phone] [facility] [place] (Er) FALL NOS 2200 6 Monica Tapia. [address], [place], [place], [id number]. tel:[phone] [employer], [address] [facility], [place], [place], [address], [place] tel:[phone] [facility] [place] (Op) HEADACHE 5200 6 Ranjith Salazar. [address], [place], [place], [address], [place]. tel:[phone] [employer], [address] [facility], [place], [place], [address], tel:[phone] [facility] [place] (Op) HEAD INJURY NOS 6 Michael Castellano [address] [place], [place], [id number], . tel:[phone] [employer], [address] [facility], [place], [place], [address], tel:[phone] [facility] [place] (Er) CERVICAL SPINAL STENOSIS 6 Juliann Sauceda [address] [place] [address], [id number], . tel:[phone] [employer], [address] [facility], [place], [place], [address], tel:[phone] [facility] [place] (Er) BRACHIAL NEURITIS NOS 6 Juliann Sauceda [address] [place] [address], [id number], . tel:[phone] [employer], [address] [facility], [place], [place], [address], tel:[phone] [facility] [place] (Ip) FOLLOW-UP SURGERY NOS 4 iMchael Castellano [address] [place], [place], [id number], . tel:[phone] [employer], [address] [facility], [place], [place], [address], tel:[phone] [facility] [place] (Op) COUGH 4 No Information Family History Family Member Type Diagnosis Age At Onset No Information Payers Payer name Insurance type Covered green [...]
--- OUTSIDE RECORDS SUMMARY | 2024-11-29 00:17 | XMS_ITS | Clinical Summary ---
Author Organization [facility] al Address [address] [place] [address] Care Team Providers Care Tree Farmer Name Role Phone Lidia Barajas MD Unavailable [...] for pain 42 tablet 2 Active multivit wmohqyax-fhxx-RX-c alcium (THERA-M) 9 mg iron-400 mcg tabletIndications: [...] (10/24/2021): Added automatically from request for surgery [id number] Postlaminectomy syndrome, lumbar region 10/25/19 Overview (10/24/2021): Added automatically from request for surgery [id number] Assessment & Plan (07/03/2022 3:48 PM MARINE CHRONOMETER ASSEMBLER): Ms. Mcnulty is doing well following lumbar [...] (10/24/2021): Added automatically from request for surgery [id number] Other chest pain 01/19/2020 Assessment & Plan [...] need for exchange this admission Suprapubic catheter ([facility]) 11/16/2019 Essential hypertension 11/16/2019 [...] (11/25/2019): Added automatically from request for surgery [id number] Chronic lumbar radiculopathy 01/21/2019 Chronic back pain 01/21/2019 Spinal stenosis of lumbar region with radiculopa thy 12/04/2018 Assessment & Plan (07/18/2021 10:23 AM MARINE CHRONOMETER ASSEMBLER): Assessment Healed fusion L2-5 severe retrolisthesis with [...] (06/18/2018): Added automatically from request for surgery [id number] Assessment & Plan (12/04/2018 3:42 PM CDT): Healing fusion C6-7 Continued observation. Assessment & Plan (08/12/2018 10:35 AM MARINE CHRONOMETER ASSEMBLER): Assessment Healing fusion C6-7 Plan Talked about do's and don'ts she is still to maintain her initial restrictions and return in 6 weeks for an x-ray Assessment & Plan (06/25/2018 2:43 PM MARINE CHRONOMETER ASSEMBLER): Angelina was recently hospitalized at [facility] and diagnosed with a disc [...] (06/18/2018): Added automatically from request for surgery [id number] Cervical pain (neck) 06/13/2018 Asthma 11/13/2013 Overview [...] Bladder tumor Acute CVA (cerebrovascular a ccident) ([facility]) 12/27/2021 Family History Medical History Relation Name [...] any clubs o r organizations such as jehovah's witness groups, unions, fraternal or athletic groups, or [...] on file Legal Sex Female 11:49 PM MARINE CHRONOMETER ASSEMBLER Gender Identity Not on file Sexual Orientation [...] Plan Chronic Care Management Worsening( 10:12 AM MARINE CHRONOMETER ASSEMBLER) Milvia Mireles RN Note: Problem: Chronic Pain Goals: 1. Minimize further functional decline 2. Maximize quality of life 3. Control pain Strategies: - Activity/exercise program recommendation - Conservative stepwise pain medicine strategy with multi-disciplinary approach - Recommend healthy lifestyle strategies and compensatory methods as needed Medical Devices Implanted Type Area Veterinary Radiologist Device Identifier Shelf Expiration Date Model / Serial / Lot Spinal Cord Stimulator-2016 Implanted:01/28 (Quantity not on file) Spinal Cord Stimulator Left: Hip Nevro Spinal Cord Stimulation System [id number] / / Description:Closed Bore only 1.5T or [...] Allograft Putty Syringe Graft 2.5cc Bone - [id number] Implanted:Qty: 1 on 07/03/2018 by Zachary Rothman MD at [facility] N/A: Spine Cervical Cer[employer] Inc 03/29/2021 700-025 / / [id number] Plate 1-Level 14 Mm Cervical - [id number] Implanted:Qty: 1 on 07/03/2018 by Zachary Rothman MD at [facility] N/A: Spine Cervical [employer] 30-0114 / / Screw 4.0x14mm Self Drilling Variable - [id number] Implanted:Qty: 4 on 07/03/2018 by Zachary Rothman MD at [facility] N/A: Spine Cervical [employer] 31-4014 / / Cage Spinal [id number] 7 Degree Porous Coated Latex Free - [id number] Implanted:Qty: 1 on 07/03/2018 by Zachary Rothman MD at [facility] N/A: Spine Cervical Spinal Elements [id number] / / Depuy Synthes Spine [id number] Substitute Bone Graft Fibergraft Gps Medium Putty 6cc - [id number] Implanted:Qty: 1 on 11/29/2021 by Dave Louis MD at [facility] N/A: Lumbar-Sa cral Spine Depuy Synthes Spine [id number] 10/18/2023 [id number] / / [id number] [employer] Inc Osteosponge Allograft Chips Radiolucent Thk4-10mm Graft 30cc Bone [id number] - [id number] - [id number] Implanted:Qty: 1 on 11/29/2021 by Dave Louis MD at [facility] N/A: Lumbar-Sa cral Spine [employer] 10/14/2024 [id number] / [id number] / Depuy Synthes Spine Cage Post Spinal 4d Plif Ti [id number] - [id number] Implanted:Qty: 1 on 11/29/2021 by Dave Louis MD at [facility] N/A: Lumbar-Sa cral Spine Depuy Synthes Spine [id number] 07/30/2024 [id number] / / [id number] Depuy Synthes Spine Expedium 5.5mm 80mm Line Prebent Rodney Spinal Titanium Nonsterile [id number] - [id number] Implanted:Qty: 1 on 11/29/2021 by Dave Louis MD at [facility] N/A: Lumbar-Sa cral Spine Depuy Synthes Spine [id number] / / Depuy Synthes Spine Expedium 5.5mm 85mm Line Prebent Rodney Spinal Titanium Nonsterile [id number] - [id number] Implanted:Qty: 1 on 11/29/2021 by Dave Louis MD at [facility] N/A: Lumbar-Sa cral Spine Depuy Synthes Spine [id number] / / Depuy Synthes Spine Expedium 5.5mm 45mm Polyaxial Spine Screw Bone Titanium 5.5mm Rodney [id number] - [id number] Implanted:Qty: 2 on 11/29/2021 by Dave Louis MD at [facility] N/A: Lumbar-Sa cral Spine Depuy Synthes Spine [id number] / / Depuy Synthes Spine Expedium 6.5mm 45mm Polyaxial Spine Screw Bone Titanium 5.5mm Rodney [id number] - [id number] Implanted:Qty: 3 on 11/29/2021 by Dave Louis MD at [facility] N/A: Lumbar-Sa cral Spine Depuy Synthes Spine [id number] / / Depuy Synthes Spine Expedium 1 Inner Monoaxial Spine Screw Set Titanium [id number] - [id number] Implanted:Qty: 6 on 11/29/2021 by Dave Louis MD at [facility] N/A: Lumbar-Sa cral Spine Depuy Synthes Spine [id number] / / Depuy Synthes Spine Expedium 7mm 45mm 1 Innie Polyaxial Spine Screw Bone Titanium [id number] - [id number] Implanted:Qty: 1 on 11/29/2021 by Dave Louis MD at [facility] N/A: Lumbar-Sa cral Spine Depuy Synthes Spine [id number] / / Procedures Procedure Name Priority Date/Time [...] 11/29/2019 8:04 AM Admit Type: Inpatient Room: [facility] Date of : 1965 Instrument Name: [...] the bowel preparation was evaluated usingthe BBPS ([place] Bowel Preparation Scale) with scores of: Right [...] AM CDT) Hep A IgM Nonreactive Nonreactive [facility] Comment: Interpretive Data: If Hep A IgM Ab is reported as Equivocal, a new sample should be drawn in two weeks for testing. Current interpretive data was last revised on 19. Hep B core IgM Nonreactive Nonreactive [facility] Comment: Interpretive Data If HepB [...] revised on 2019. HepBsAg Nonreactive Nonreactive [facility] Blood specimen (specimen) 11/17/2019 4:13 AM CDT 11/17/2019 4:31 AM CDT [facility] MICRO[facility] - GENERAL ORDERABLES Final Result [facility] [address] Department [place] [address] from Last 3 Months or Most Recently Relevant to Health Maintenance Insurance UHC MEDICARE ADVANTAGE [facility] MEDICARE [id number] [place] [address] MEDICARE UHC MEDICARE ADVANTAGE Advance Directives For more information, please contact: [phone] Documents on File Type Date Recorded Patient Risk Control Consultant Expl anation Power of Rental Sales Representative 11/29/2021 11:46 AM * Full Code (Latest [...] First Alternate Health Care Agent Care Teams Tree Farmer Relationship Specialty Start Date End Date Ab Melara MD [address] [address] PCP - General Family Medicine 07/16/21 Lidia Barajas MD Anesthesiologist Anesthesiology 01/13/20
--- OUTSIDE RECORDS SUMMARY | 2024-11-29 00:17 | XMS_ITS | Encounter Summary ---
Author Organization [facility] Healthcare Address [address] [place] [address] Care Team Providers Care Landfill Gas Collection Operator Name Role Phone Shilpa Frazier DO Primary Care Provider Lidia Barajas MD Unavailable Ab Melara MD Primary Care Provid er Encounter Details Date Type Department Care Team (Late st Contact Info) Description 04/24/2020 Telephone [facility] [address] [facility] [address] [place] [address] Tori Arias RN Social History [...] on file Legal Sex Female 11:49 PM DEICER ELEMENT WINDER MACHINE Gender Identity Not on file Sexual [...] DT MRSA 12/27/2021 03/06/2022 09/02/2022 3:05 AM DEICER ELEMENT WINDER MACHINE documented as of this encounter Care Teams Landfill Gas Collection Operator Relationship Specialty Start Date End Date Shilpa Frazier DO PCP - General 06/12/18 07/15/21 Ab Melara MD [address] [address] PCP - General Family Medicine 07/16/21 Lidia Barajas MD Anesthesiologist Anesthesiology 01/13/20 documented as of this encounter
--- OUTSIDE RECORDS SUMMARY | 2024-11-29 00:17 | XMS_ITS | Encounter Summary ---
Author Organization [facility] Address [address] [place] [address] Care Team Providers Care Able Bodied Watchman Name Role Phone Fiordaliza Snell MD Primary [...] on file Legal Sex Female 2:43 AM OPERATIONS ASST Gender Identity Not on file Sexual Orientation Not on file documented as of this encounter Plan of Treatment Not on file documented as of this encounter Visit Diagnoses Diagnosis Surgical or other procedure not carried out because of patient's decision- Primary documented in this encounter Additional Health Concerns Infection Onset Date Last Indicated Resolved Time R/O COVID-19 07/02/2020 07/02/2020 07/02/2020 8:53 PM OPERATIONS ASST MRSA Comment:Resolved per Type and Duration of Precautions Recommended for Selected Infections and Conditions document 2023 update 07/02/2020 07/02/2020 03/16/20 24 10:58 AM CDT R/O COVID-19 07/10/2020 07/10/2020 07/10/2020 5:01 PM OPERATIONS ASST documented as of this encounter Care Teams Able Bodied Watchman Relationship Specialty Start Date End Date Fiordaliza Snell MD PCP - General Family Practice 09/09/22 documented as of this encounter
--- OUTSIDE RECORDS SUMMARY | 2024-11-29 00:17 | XMS_ITS | Encounter Summary ---
Author Organization [facility] Address [address] [place] [address] Care Team Providers Care Dictating Machine Transcriber Name Role Phone Fiordaliza Snell MD Primary [...] on file Legal Sex Female 2:43 AM TRAINING EXECUTIVE Gender Identity Not on file Sexual Orientation Not on file documented as of this encounter Plan of Treatment Not on file documented as of this encounter Visit Diagnoses Diagnosis Unspecified symptom associated with female genital organs- Primary documented in this encounter Additional Health Concerns Infection Onset Date Last Indicated Resolved Time R/O COVID-19 07/02/2020 07/02/2020 07/02/2020 8:53 PM TRAINING EXECUTIVE MRSA Comment:Resolved per Type and Duration of Precautions Recommended for Selected Infections and Conditions document 2023 update 07/02/2020 07/02/2020 03/16/20 24 10:58 AM CDT R/O COVID-19 07/10/2020 07/10/2020 07/10/2020 5:01 PM TRAINING EXECUTIVE documented as of this encounter Care Teams Dictating Machine Transcriber Relationship Specialty Start Date End Date Fiordaliza Snell MD PCP - General Family Practice 09/09/22 documented as of this encounter
--- OUTSIDE RECORDS SUMMARY | 2024-11-29 00:17 | XMS_ITS | Encounter Summary ---
Author Organization [facility] Address [address] [place] [address] Care Team Providers Care Signal Inspector Name Role Phone Fiordaliza Snell MD [...] file Legal Sex Female 2:43 AM DIRECTOR MARKETING COMMUNICATIONS Gender Identity Not on file Sexual Orientation Not on file documented as of this encounter Plan of Treatment Not on file documented as of this encounter Visit Diagnoses Diagnosis Abdominal pain, unspecified site- Primary documented in this encounter Additional Health Concerns Infection Onset Date Last Indicated Resolved Time R/O COVID-19 07/02/2020 07/02/2020 07/02/2020 8:53 PM DIRECTOR MARKETING COMMUNICATIONS MRSA Comment:Resolved per Type and Duration of Precautions Recommended for Selected Infections and Conditions document 2023 update 07/02/2020 07/02/2020 03/16/20 24 10:58 AM CDT R/O COVID-19 07/10/2020 07/10/2020 07/10/2020 5:01 PM DIRECTOR MARKETING COMMUNICATIONS documented as of this encounter Care Teams Signal Inspector Relationship Specialty Start Date End Date Fiordaliza Snell MD PCP - General Family Practice 09/09/22 documented as of this encounter
--- OUTSIDE RECORDS SUMMARY | 2024-11-29 00:17 | XMS_ITS | Encounter Summary ---
Author Organization [facility] Address [address] [place] [address] Care Team Providers Care Space Systems Operations Craftsman Name Role Phone Fiordaliza Snell MD Primary [...] on file Legal Sex Female 2:43 AM RETAIL INTERIOR DESIGNER Gender Identity Not on file Sexual Orientation Not on file documented as of this encounter Plan of Treatment Not on file documented as of this encounter Visit Diagnoses Diagnosis Unspecified symptom associated with female genital organs- Primary documented in this encounter Additional Health Concerns Infection Onset Date Last Indicated Resolved Time R/O COVID-19 07/02/2020 07/02/2020 07/02/2020 8:53 PM RETAIL INTERIOR DESIGNER MRSA Comment:Resolved per Type and Duration of Precautions Recommended for Selected Infections and Conditions document 2023 update 07/02/2020 07/02/2020 03/16/20 24 10:58 AM CDT R/O COVID-19 07/10/2020 07/10/2020 07/10/2020 5:01 PM RETAIL INTERIOR DESIGNER documented as of this encounter Care Teams Space Systems Operations Craftsman Relationship Specialty Start Date End Date Fiordaliza Snell MD PCP - General Family Practice 09/09/22 documented as of this encounter
--- OUTSIDE RECORDS SUMMARY | 2024-11-29 00:17 | XMS_ITS | Encounter Summary ---
Author Organization [facility] Healthcare Address [address] [place] [address] Care Team Providers Care Religious Ritual Slaughterer Name Role Phone FrazierShilpa DO Primary Care Provider Lidia Barajas MD Unavailable Ab Melara MD Primary Care Provid er Encounter Details Date Type Department Care Team (Late st Contact Info) Description 03/19/[address] [facility] - Interventional Radiology [address] [place] [address] Nhung French RN Social History [...] on file Legal Sex Female 11:49 PM TECHNICAL AIDE Gender Identity Not on file Sexual Orientation [...] DT MRSA 12/27/2021 03/06/2022 09/02/2022 3:05 AM TECHNICAL AIDE documented as of this encounter Care Teams Religious Ritual Slaughterer Relationship Specialty Start Date End Date Shilpa Frazier DO PCP - General 06/12/18 07/15/21 Ab Melara MD [address] [address] PCP - General Family Medicine 07/16/21 Lidia Barajas MD Anesthesiologist Anesthesiology 01/13/20 documented as of this encounter
--- OUTSIDE RECORDS SUMMARY | 2024-11-29 00:17 | XMS_ITS | Continuity of Care Document ---
Author Organization [facility] Address [address] [place] [address] Phone Care Team Providers Care Heading Maker Name Role Phone Klaus ATKINSON MD, Denys [...] tient visit,est, mod [facility], [address], [place], [place], [id number], [place] tel:[phone] [facility] [employer] [facility] r knee (chief complaint) Pain in right knee 4 Klaus Mcfarlane. [address] [place] [address], [place], [place], [id number], [place]. tel:[phone] Referring Provider: Martin Medina, [address] [place] [address] Suite [facility], [place], [address]. tel:[phone] [facility], [address] [place] [address], [id number], [place] tel:[phone] [facility] [employer] [facility] [facility] Pain in left shoulder 2 Klaus Mcfarlane. [address] [place] [address], [place], [place], [id number], [place]. tel:[phone] [facility], [address] [place] [address], [id number], [place] tel:[phone] [facility] [employer] [facility] [facility] fell Out Of Wheelchair And Shived Both Shoulders (chief complaint) Pain in left shoulderPain in right shoulder 2 Klaus Mcfarlane. [address] [place] [address], [place], [place], [id number], [place]. tel:[phone] Referring Provider: Martin Medina, [address] [place] [address] Suite [facility], [place], [address]. tel:[phone] [facility], [address] [place] [address], [id number], [place] tel:[phone] [facility] [employer] No Information Sep-2 0 No Information Referring Provider: Martin Medina, [address] [place] [address] Suite [facility], [place], [address]. tel:[phone] Family History Family Member Type Diagnosis Age At Onset Mother Problem (finding) Heart Disease Brother Problem (finding) Depression Mother Problem (finding) Cancer, unknown Mother Problem (finding) Depression Brother Problem (finding) Hypertension Father Problem (finding) Cancer, unknown Mother Problem (finding) Hypertension Father Problem (finding) Hypertension Father Problem (finding) Depression Payers Payer name Insurance type Covered constitution [...]
--- OUTSIDE RECORDS SUMMARY | 2024-11-29 00:17 | XMS_ITS | Encounter Summary ---
Author Organization [facility] Address 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) (postinfection)- Primary documented in this encounter Additional Health Concerns Infection Onset Date Last Indicated Resolved Time R/O COVID-19 07/02/2020 07/02/2020 07/02/2020 8:53 PM OFFICE ELECTRICIAN MRSA Comment:Resolved per Type and Duration of Precautions Recommended for Selected Infections and Conditions document 2023 update 07/02/2020 07/02/2020 03/16/20 24 10:58 AM CDT R/O COVID-19 07/10/2020 07/10/2020 07/10/2020 5:01 PM OFFICE ELECTRICIAN documented as of this encounter Care Teams Land Surveying Party Chief Relationship Specialty Start Date End Date Fiordaliza Snell MD PCP - General Family Practice 09/09/22 documented as of this encounter
--- OUTSIDE RECORDS SUMMARY | 2024-11-29 00:17 | XMS_ITS | Encounter Summary ---
Author Organization [facility] Healthcare Address [address] [place] [address] Care Team Providers Care Special Education Professor Name Role Phone Shilpa Frazier DO Primary Care Provider Lidia Barajas MD Unavailable Ab Melara MD Primary Care Provid er Encounter Details Date Type Department Care Team (Late st Contact Info) Description 03/15/2019 Telephone [facility] - Interventional Radiology [address] [place] [address] Philly Aguirre RN Social History [...] on file Legal Sex Female 11:49 PM PLANT MAINTENANCE TECHNICIAN Gender Identity Not on file Sexual [...] DT MRSA 12/27/2021 03/06/2022 09/02/2022 3:05 AM PLANT MAINTENANCE TECHNICIAN documented as of this encounter Care Teams Special Education Professor Relationship Specialty Start Date End Date Shilpa Frazier DO PCP - General 06/12/18 07/15/21 Ab Melara MD [address] [address] PCP - General Family Medicine 07/16/21 Lidia Barajas MD Anesthesiologist Anesthesiology 01/13/20 documented as of this encounter
--- OUTSIDE RECORDS SUMMARY | 2024-11-29 00:18 | XMS_ITS | Encounter Summary ---
Author Organization [facility] Address [address] [place] [address] Care Team Providers Care Mill Set Up Name Role Phone Fiordaliza Snell MD Primary [...] on file Legal Sex Female 2:43 AM GIN POLE OPERATOR Gender Identity Not on file Sexual Orientation Not on file documented as of this encounter Plan of Treatment Not on file documented as of this encounter Visit Diagnoses Diagnosis Excessive or frequent menstruation- Primary documented in this encounter Additional Health Concerns Infection Onset Date Last Indicated Resolved Time R/O COVID-19 07/02/2020 07/02/2020 07/02/2020 8:53 PM GIN POLE OPERATOR MRSA Comment:Resolved per Type and Duration of Precautions Recommended for Selected Infections and Conditions document 2023 update 07/02/2020 07/02/2020 03/16/20 24 10:58 AM CDT R/O COVID-19 07/10/2020 07/10/2020 07/10/2020 5:01 PM GIN POLE OPERATOR documented as of this encounter Care Teams Mill Set Up Relationship Specialty Start Date End Date Fiordaliza Snell MD PCP - General Family Practice 09/09/22 documented as of this encounter
--- OUTSIDE RECORDS SUMMARY | 2024-11-29 00:18 | XMS_ITS | Encounter Summary ---
Author Organization [facility] Address 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 Gender Identity Not on file Sexual Orientation Not on file documented as of this encounter Plan of Treatment Not on file documented as of this encounter Visit Diagnoses Diagnosis Closed fracture of lateral malleolus- Primary documented in this encounter Additional Health Concerns Infection Onset Date Last Indicated Resolved Time R/O COVID-19 07/02/2020 07/02/2020 07/02/2020 8:53 PM RETOUCHER PHOTOENGRAVING MRSA Comment:Resolved per Type and Duration of Precautions Recommended for Selected Infections and Conditions document 2023 update 07/02/2020 07/02/2020 03/16/20 24 10:58 AM CDT R/O COVID-19 07/10/2020 07/10/2020 07/10/2020 5:01 PM RETOUCHER PHOTOENGRAVING documented as of this encounter Care Teams Retirement Assistant Relationship Specialty Start Date End Date Fiordaliza Snell MD PCP - General Family Practice 09/09/22 documented as of this encounter
--- OUTSIDE RECORDS SUMMARY | 2024-11-29 00:18 | XMS_ITS | Encounter Summary ---
Author Organization [facility] Address 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 Gender Identity Not on file Sexual Orientation Not on file documented as of this encounter Plan of Treatment Not on file documented as of this encounter Visit Diagnoses Diagnosis Lumbago- Primary documented in this encounter Additional Health Concerns Infection Onset Date Last Indicated Resolved Time R/O COVID-19 07/02/2020 07/02/2020 07/02/2020 8:53 PM PUBLIC AREA SUPERVISOR MRSA Comment:Resolved per Type and Duration of Precautions Recommended for Selected Infections and Conditions document 2023 update 07/02/2020 07/02/2020 03/16/20 24 10:58 AM CDT R/O COVID-19 07/10/2020 07/10/2020 07/10/2020 5:01 PM PUBLIC AREA SUPERVISOR documented as of this encounter Care Teams Oracle R12 Developer Relationship Specialty Start Date End Date Fiordaliza Snell MD PCP - General Family Practice 09/09/22 documented as of this encounter
--- OUTSIDE RECORDS SUMMARY | 2024-11-29 00:18 | XMS_ITS | Encounter Summary ---
Author Organization [facility] Healthcare Address [address] [place] [address] Care Team Providers Care Cdl Service Technician Name Role Phone Shilpa Fraziermeera PEREZ Primary Care Provider Lidia Barajas MD Unavailable Ab Melara MD Primary Care Provid er Reason for Visit * Reason Onset Date Comments PRECALL ANTICOAG 02/18/2020 Encounter Details Date Type Department Care Team (Late st Contact Info) Description 02/18/2020 Telephone [facility] [address] [facility] 1st [place] [address] Tori Arias RN PRECALL ANTICOAG [...] on file Legal Sex Female 11:49 PM TOMBSTONE CARVER Gender Identity Not on file Sexual Orientation [...] DT MRSA 12/27/2021 03/06/2022 09/02/2022 3:05 AM TOMBSTONE CARVER documented as of this encounter Care Teams Cdl Service Technician Relationship Specialty Start Date End Date Shilpa Frazier DO PCP - General 06/12/18 07/15/21 Ab Melara MD [id number] [address] PCP - General Family Medicine 07/16/21 Lidia Barajas MD Anesthesiologist Anesthesiology 01/13/20 documented as of this encounter
--- NOTE | 2024-11-29 00:34 | ED.LOWEXIN ---
HPI - Extremity Injury (Lower) General Chief Complaint: Extremity Injury, Lower Stated Complaint: Caught right foot under wheelchair Time Seen by Provider: 11/29/24 00:03 Source: patient Mode of arrival: wheelchair Limitations: physical limitation History of Present Illness HPI Narrative: Patient presents after her right foot got caught in her wheelchair. During this her right toenail #3 was ripped off/out and she experienced acute lorenzo swelling, heard her ankle pop. Had not taken any meds prior to arrival. No narcotic medication allergies. Has pain in her ankle. 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 Incomplete injury as she has no motor on the right, limited on the left but has sensation intact on the right. Related Data Home Medications ?Medication ?Instructions ?Recorded ?Confirmed ?Last Taken ?Type polyethylene glycol 3350 17 gram 17 g PO DAILY PRN constipation 07/20/24 08/03/24 07/19/24 History oral powder packet (Miralax) sennosides 8.6 mg-docusate sodium 1 tab-cap PO BID PRN constipation 07/20/24 08/03/24 07/19/24 History 50 mg tablet (Senokot-S) metoprolol succinate 25 mg 25 mg PO DAILY 08/03/24 08/03/24 08/02/24 History tablet,extended release 24 hr Allergies Allergy/AdvReac Type Severity Reaction Status Date / Time Penicillins Allergy Intermediate Hives Verified 11/28/24 23:55 Sulfa (Sulfonamide Allergy Intermediate Swelling Verified 11/28/24 23:55 Antibiotics) of Lip/Tongue/Throat vancomycin Allergy Intermediate Hives Verified 11/28/24 23:55 adhesive tape Allergy Mild Blister Verified 11/28/24 23:55 Latex, Natural Rubber Allergy Mild Itching Verified 11/28/24 23:55 PMFSH Past Medical History Medical History (Updated 12/02/24 @ 05:51 by Adeline Tijerina MD) Sleep apnea History of MRSA infection Depression Anemia Fibromyalgia Scoliosis DDD (degenerative disc disease) Arthritis Irritable bowel Hemorrhoids GERD (gastroesophageal reflux disease) Asthma HLD (hyperlipidemia) Heart murmur CHF (congestive heart failure) Atrial fibrillation Anxiety Insomnia Obesity (BMI 30-39.9) Paraplegia incomplete PTSD (post-traumatic stress disorder) Stroke Hypertension Allergies Surgical History Surgical History History of tonsillectomy History of total cystectomy History of hernia repair History of cholecystectomy History of appendectomy History of cardiac catheterization History of ileal conduit History of back surgery Family History Family History Father Hypertension Cancer Mother Cancer Hypertension Anxiety Grandparent Cancer Social History Social History (Updated 12/02/24 @ 05:51 by Adeline Tijerina MD) Social History: Wheelchair dependent Smoking status: Never smoker Alcohol intake: never Substance use: never Substance use type: does not use Do You Feel Safe in your Home?: Yes Lack of Transportation: No Lack of Food: Never True Current Housing: I Have Housing Concerned About Future Housing: No Difficulty Paying Gas/Electric Bills: No Difficulty Paying for Meds: No Currently Unemployed: No Education: High School Diploma/GED Difficulty w/ Childcare or Family Care: No Spiritual care concerns: No Exam Narrative: GENERAL: Well-appearing, well-nourished, in mild acute distress. HEAD: Normocephalic, atraumatic. EYES: Non injected, non icteric ENT: Nares clear, no rhinorrhea or epistaxis. Gross auditory acuity intact. NECK: Supple. No meningismus. CHEST: Speaking in full sentences. No respiratory distress. HEART: Tachycardic rate and rhythm. ABDOMEN: Soft, nondistended. EXTREMITIES: Right ankle abrasion. Swelling to right ankle at lateral malleolus where she has tenderness to palpation. SKIN: Warm, dry. Nail avulsion of right digit #3, bleeding well controlled. NEURO: Alert and oriented. Answering questions. Following commands. Normal speech without aphasia or dysarthria. Limited motor in rle but sensation intact throughout foot and ankle. PSYCH: Congruent mood and affect. Course Vital Signs Vital signs: Vital Signs Temperature 98.6 F 11/28/24 19:53 Pulse Rate 101 H 11/28/24 19:53 Respiratory Rate 16 11/28/24 19:53 Blood Pressure 153/109 H 11/28/24 19:53 Pulse Oximetry 97 11/28/24 19:53 Temperature 98.6 F 11/28/24 19:53 Pulse Rate 101 H 11/28/24 19:53 Respiratory Rate 16 11/28/24 19:53 Blood Pressure 153/109 H 11/28/24 19:53 Pulse Oximetry 97 11/28/24 19:53 MDM - Extremity Injury (Lower) MDM Narrative Medical decision making narrative: Patient with history incomplete paraplegia who is wheelchair dependent prsents after her right foot got caught in her wheelchair. Experienced a popping sensation in ankle and nail avulsion from toe #3. In the emergency department she is afebrile with vital signs that are acceptable, mild tachycardia and hypertension. Imaging negative for fracture though still highly suspicious for sprain / strain so treated as such. Patient already on opiate therapy at baseline. Will prescribe additional APAP (educated on safe total dosing) and NSAIDs. Advised follow up. Otherwise stable for discharge. Differential Diagnosis Differential diagnosis: Likely ankle sprain and strain and ankle fracture Imaging Data Attestation: I personally reviewed and interpreted this imaging study as follows: My impression: Possible lucency on my independent interpretation of foot image lateral view but this is not present on the other view, in particular lower suspicion for obvious fibular fracture. Radiologist's impression: Impressions Foot X-Ray 11/28/24 20:09 IMPRESSION: No acute osseous finding in the right foot. Skin/nail injury over the third toe. Tibia/Fibula X-Ray 11/28/24 20:12 IMPRESSION: No acute osseous finding in the right tibia/fibula. Discharge Plan Discharge Clinical Impression: Other accident with wheelchair (powered), initial encounter, Avulsion of toenail of right foot, Acute right ankle pain Patient Disposition: Home Condition: Stable Instructions: Antibiotic Form, Ankle Sprain (DC), P.R.I.C.E. Treatment (ED), Swollen Joint (ED), Nail Avulsion (ED) Additional Instructions: No broken bones seen within bones of lower leg, ankle/foot. Remember R-I-C-E (rest, ice, compression, and elevation). You are prescribed Laughlin 7.5mg tablets and can continue to use these. In general, it is safe to take 4000mg/day of acetaminophen/Tylenol so you can supplement with additional acetaminophen but each Laughlin 7.5 tablet contains 325mg acetaminophen so take that into account so you don't accidentally overdose. Acetaminophen/Tylenol is safe to take with NSAIDs (ibuprofen/Motrin) for pain relief. Follow-up with your primary care physician if not improving over the next 3-5 days as you may require alternative pain medication, physical therapy, advanced imaging, etc. Return to the emergency department with any new, worsening, or unmanaged symptoms. Patient Language: Georgian Prescriptions: New acetaminophen 650 mg tablet extended release 650 mg PO Q8H PRN (Reason: pain) Qty: 30 0RF ibuprofen 600 mg tablet 600 mg PO TID PRN (Reason: pain) Qty: 30 0RF No Action metoprolol succinate 25 mg tablet extended release 24 hr 25 mg PO DAILY polyethylene glycol 3350 [Miralax] 17 gram Powder In Packet 17 g PO DAILY PRN (Reason: constipation) sennosides-docusate sodium [Senokot-S] 8.6-50 mg Tablet 1 tab-cap PO BID PRN (Reason: constipation) levofloxacin 750 mg tablet 750 mg PO DAILY Qty: 7 0RF phenazopyridine [Pyridium] 200 mg tablet 200 mg PO TID Qty: 6 0RF diclofenac sodium [Voltaren Arthritis Pain] 1 % gel 2 g topical QID Qty: 100 1RF Rx Instructions: apply to single elbow, wrist or hand; for hand includes palm/fingers/back of hand alprazolam 0.25 mg tablet 0.25 mg PO TID PRN (Reason: anxiety) Qty: 60 0RF olanzapine 5 mg tablet 5 mg PO DAILY Qty: 30 0RF zolpidem [Ambien] 5 mg tablet 5 mg PO QHS Qty: 30 0RF losartan 100 mg tablet 100 mg PO DAILY Qty: 90 1RF escitalopram oxalate 20 mg tablet 20 mg PO DAILY Qty: 90 1RF atorvastatin 10 mg tablet 10 mg PO DAILY Qty: 90 1RF aspirin [Adult Low Dose Aspirin] 81 mg tablet,delayed release (DR/EC) 81 mg PO DAILY Qty: 90 2RF ondansetron 4 mg tablet,disintegrating 4 mg PO Q8H PRN (Reason: nausea and vomiting) Qty: 20 0RF ropinirole 0.5 mg tablet 0.5 mg PO BID Qty: 180 2RF furosemide 20 mg tablet See Rx Instructions .ROUTE .COMPLEX Qty: 90 2RF Dose Instruction: 20 MG ORALLY EVERY MORNING Rx Instructions: 20 MG ORALLY EVERY MORNING pregabalin 100 mg capsule 100 mg PO TID Qty: 90 0RF hydrocodone-acetaminophen 7.5-325 mg tablet 1 tablet PO Q8H PRN (Reason: pain) Qty: 30 0RF cyclobenzaprine 10 mg tablet 10 mg PO TID Qty: 60 0RF Follow-up/Referrals: Panchito Walters DO [Primary Care Provider] - Stand Alone Forms: Work/School Release IP Time of Disposition: 01:01
[2024-11-29] MEDS: KETOROLAC 30 MG/ML VIAL (*BKC) 15 MG IM (01:28)
[2024-11-29] MEDS: HYDROcodone/acetaminophen (*CRX) 7.5-325 MG TABLET 1 TAB PO (01:28)
[2024-11-29] MEDS: BACITRACIN OINTMENT 15 GM TUBE 1 APPLIC TOPICAL (01:28)
== END 2024-11-29 01:38 | disposition home or self-care (01) ==
PROVIDERS: Emergency Provider Student in an Organized Health Care Education/Training Program; PCP Internal Medicine
DX: S91.204A Unspecified open wound of right lesser toe(s) with damage to nail, initial encounter (principal); M25.571 Pain in right ankle and joints of right foot; G82.22 Paraplegia, incomplete; G47.30 Sleep apnea, unspecified; F32.A Depression, unspecified; D64.9 Anemia, unspecified; M79.7 Fibromyalgia; M19.90 Unspecified osteoarthritis, unspecified site; K21.9 Gastro-esophageal reflux disease without esophagitis; J45.909 Unspecified asthma, uncomplicated; E78.5 Hyperlipidemia, unspecified; I11.0 Hypertensive heart disease with heart failure; I50.9 Heart failure, unspecified; I48.91 Unspecified atrial fibrillation; F41.9 Anxiety disorder, unspecified; Z86.73 Personal history of transient ischemic attack (TIA), and cerebral infarction without residual deficits; W23.0XXA Caught, crushed, jammed, or pinched between moving objects, initial encounter
CPT/HCPCS: 73590; 73620; 96372; 99284; A9270; J1885

== ENCOUNTER 2024-12-13 11:32 | Inpatient (IN) | payer MEDICARE, SELFPAY ==
[2024-12-13] VITALS (13 sets, daily range): BP systolic 118–191; BP diastolic 76–91; PULSE 82–98; RESP 18–20; TEMP 36.6–37.5; O2SAT 94–100; BMI 33.5
--- NOTE | ~2024-12-13 | XR_ITS ---
XR abdomen/kub 1V Ordering provider: Belkis Infante APRN History: . abdominal pain, constipation, pressure . Comparison: None. FINDINGS: BOWEL: Nonobstructive bowel gas pattern. ORGANOMEGALY: None. SIGNIFICANT PATHOLOGIC CALCIFICATIONS: None. OTHER: No free air is seen under the diaphragm. Left spinal stimulator. Postoperative changes in the spine. IMPRESSION: NO ACUTE ABDOMINAL FINDINGS. Reviewed, dictated and finalized at location A.
--- NOTE | ~2024-12-13 | CT_ITS ---
CT abdomen pelvis w con Ordering provider: Odin Quan MD History: 59 years Female with . constipation, ab pain . Comparison: August 03, 2024 Technique: CT abdomen and pelvis with IV and without oral contrast. Automated exposure control and it erative reconstruction technique were employed. The dose-length product was 1621.37 mGy-cm. 100 mL Om nipaque 350 was given IV. Findings: VISUALIZED LOWER CHEST: Right basilar chronic atelectatic changes. UPPER ABDOMINAL ORGANS: Liver: Fat infiltration Gallbladder: Normal. Spleen: Normal. Tiny cyst in the spleen unchanged. Stomach/duodenum: Normal. Pancreas: Normal. Adrenals: Normal. Kidneys: Minimal fullness of the right renal pelvis. PELVIC ORGANS: Ileal conduit is noted in the right anterior abdominal wall.. BOWEL AND MESENTERY: Colon: No evidence of diverticulitis. Fecal material is loaded in the colon. No evidence of appendici tis. Small Bowel: Normal. No obstruction. Peritoneum/mesentery: No free air or free fluid. No mesenteric lymphadenopathy. RETROPERITONEUM: Mild atheromatous disease of the abdominal aorta. IVC filter is noted. No retroperi toneal lymphadenopathy. MUSCULOSKELETAL: Superficial soft tissues: The superficial soft tissues are normal. Bones: Age appropriate degenerative changes of the spine. Postoperative changes in the upper lumbar a clara. Pubic symphysitis. Bilateral moderate hip osteoarthritic changes. Left buttock spinal stimulator. IMPRESSION: 1. No evidence of appendicitis, diverticulitis or intestinal obstruction. 2. Ileal conduit with minimal fullness of the right renal pelvis. 3. Constipation. Reviewed, dictated and finalized at location A.
[2024-12-13 12:10] LABS: Basophils Absolute Auto 0.1 K/mm3 (0.0-0.1); Basophils Percent Auto 0.6 % (0.2-1.2); Eosinophils Absolute Auto 0.1 K/mm3 (0-0.3); Eosinophils Percent Auto 1.4 % (0-4.4); Hematocrit 40.9 % (37.0-47.0); Hemoglobin 13.2 g/dL (12.0-15.0); Immature Granulocyte Absolute 0.02 K/mm3 (0.00-0.031); Immature Granulocyte Percent A 0.3 % (0-0.5); Mean Corpuscular HGB Conc 32.3 g/dl (32-36); Mean Corpuscular Hemoglobin 27.1 pg (26-34); Mean Platelet Volume 9.6 fl (7.4-10.4); Monocytes Absolute Auto 0.7 K/mm3 (0.1-0.6); Monocytes Percent Auto 9.6 % (2.6-8.5); Neutrophils Absolute Auto 5.1 K/mm3 (1.3-6.7); Neutrophils Percent Auto 66.1 % (45.5-73.1); Platelet Count Result 210 k/mm3 (150-375); Red Blood Count 4.87 M/mm3 (4.2-5.4); Red Cell Distribution Width 14.3 % (11.5-14.5); White Blood Count 7.7 K/mm3 (4.5-10.0)
[2024-12-13 12:21] LABS: Alanine Aminotransferase 18 U/L (6-35); Albumin Level 4.2 g/dL (3.5-5.1); Alkaline Phosphatase 94 U/L (38-126); Anion Gap 10 mmol/L (4-12); Aspartate Amino Transferase 23 U/L (14-36); Bilirubin,Total 1.2 mg/dL (0.2-1.3); Blood Urea Nitrogen 12 mg/dL (7-17); Calcium 8.8 mg/dL (8.4-10.2); Carbon Dioxide 26 mmol/L (22-30); Chloride 100 mmol/L (98-107); Estimated CRCL calculation 96 ml/min; Estimated Glomerular Filt Rate > 60; Glucose 145 mg/dL (65-110); Lipase 28 U/L (23-300); Potassium 3.4 mmol/L (3.4-5.0); Sodium 136 mmol/L (137-145)
--- NOTE | 2024-12-13 12:35 | ED_ITS ---
HPI - General Adult General Chief complaint: Abdominal Pain Stated complaint: constipated X11 days-poss bowel obstruction Time Seen by Provider: 12/13/24 11:49 History of Present Illness HPI narrative: 51-year-old female it is wheelchair-bound secondary to partial paraplegia presents emergency department for evaluation for issues with constipation. Patient does have prior history of fecal impaction approximately 2 years ago. Patient states she has not had a significant bowel movement approximately 11 days. Patient has tried cuxy-wsj-epoporz medications with no success. Patient states she has increased abdominal pain and is not passing flatness. Patient does have prior history of fecal impaction Related Data Home Medications ?Medication ?Instructions ?Recorded ?Confirmed ?Last Taken ?Type polyethylene glycol 3350 17 gram 17 g PO DAILY PRN constipation 07/20/24 12/13/24 07/19/24 History oral powder packet (Miralax) sennosides 8.6 mg-docusate sodium 1 tab-cap PO BID PRN constipation 07/20/24 12/13/24 07/19/24 History 50 mg tablet (Senokot-S) metoprolol succinate 25 mg 25 mg PO DAILY 08/03/24 12/13/24 08/02/24 History tablet,extended release 24 hr ropinirole 0.5 mg tablet 1 mg PO BID 12/13/24 12/13/24 Unknown History Allergies Allergy/AdvReac Type Severity Reaction Status Date / Time Penicillins Allergy Intermediate Hives Verified 12/13/24 11:43 Sulfa (Sulfonamide Allergy Intermediate Swelling Verified 12/13/24 11:43 Antibiotics) of Lip/Tongue/Throat vancomycin Allergy Intermediate Hives Verified 12/13/24 11:43 adhesive tape Allergy Mild Blister Verified 12/13/24 11:43 Latex, Natural Rubber Allergy Mild Itching Verified 12/13/24 11:43 Review of Systems 2 Review of Systems: All systems reviewed & are unremarkable except as noted in HPI and below PMFSH Past Medical History Medical History (Updated 12/13/24 @ 15:45 by Odin Quan MD) Sleep apnea History of MRSA infection Depression Anemia Fibromyalgia Scoliosis DDD (degenerative disc disease) Arthritis Irritable bowel Hemorrhoids GERD (gastroesophageal reflux disease) Asthma HLD (hyperlipidemia) Heart murmur CHF (congestive heart failure) Atrial fibrillation Anxiety Insomnia Obesity (BMI 30-39.9) Paraplegia incomplete PTSD (post-traumatic stress disorder) Stroke Hypertension Allergies Surgical History Surgical History History of tonsillectomy History of total cystectomy History of hernia repair History of cholecystectomy History of appendectomy History of cardiac catheterization History of ileal conduit History of back surgery Family History Family History Father Hypertension Cancer Mother Cancer Hypertension Anxiety Grandparent Cancer Social History Social History (Updated 12/02/24 @ 05:51 by Adeline Tijerina MD) Social History: Wheelchair dependent Smoking status: Never smoker Alcohol intake: never Substance use: never Substance use type: does not use Do You Feel Safe in your Home?: Yes Lack of Transportation: No Lack of Food: Never True Current Housing: I Have Housing Concerned About Future Housing: No Difficulty Paying Gas/Electric Bills: No Difficulty Paying for Meds: No Currently Unemployed: No Education: High School Diploma/GED Difficulty w/ Childcare or Family Care: No Spiritual care concerns: No Exam 2 Narrative: APPEARANCE: Well appearing, no pain, no distress, well-nourished. HEAD: normocephalic, atraumatic. EYES: PERRLA/EOMI, conjunctivae clear. NOSE: Normal no drainage EARS:TMS clear with good light reflex. THROAT: Pharynx clear, no exudate. NECK: Supple. No adenopathy, no masses. RESPIRATORY: Airway patent, respirations nonlabored. Clear to auscultation bilaterally, no rales, rhonchi, wheezing. CARDIOVASCULAR: Regular rate and rhythm without murmurs rubs or gallops. ABDOMINAL: Urostomy in place with diffuse abdominal tenderness, decreased bowel sounds MUSCULOSKELETAL: Moves all extremities. Strength/ROM intact, No edema, No calf tenderness. NEURO: No change and neuro baseline SKIN: Warm, dry. Normal Color Course Vital Signs Vital signs: Vital Signs Temperature 97.8 F 12/13/24 11:40 Pulse Rate 98 12/13/24 11:40 Respiratory Rate 18 12/13/24 11:40 Blood Pressure 191/84 H 12/13/24 11:40 Pulse Oximetry 100 12/13/24 11:40 Oxygen Delivery Room Air 12/13/24 11:40 Temperature 97.8 F 12/13/24 11:40 Pulse Rate 82 12/13/24 15:45 Respiratory Rate 18 12/13/24 11:40 Blood Pressure 118/76 12/13/24 15:45 Pulse Oximetry 100 12/13/24 15:46 Oxygen Delivery Room Air 12/13/24 11:40 Medical Decision Making MDM Narrative Medical decision making narrative: 51-year-old female history partial paraplegia and fecal impaction presents emergency department for evaluation for 11 days of constipation. Patient had no stool on the digital rectal exam amenable to rectal disimpaction. Patient did have a more proximal follow-up stool that did prevent successful soapsuds enema. Patient was provided medications for pain control. Patient is currently afebrile has no leukocytosis hemoglobin of 13.2. No acute abnormalities on the patient's CMP UA was positive for nitrates, leukocyte esterase, red blood cells and high white blood cells with +4 bacteria. Patient does have multi-drug resistant urine cultures and patient was started on Levaquin in the emergency department the hospitalist did discuss switching the patient to meropenem. Both blood cultures urine cultures are pending. CT scan shows constipation with no evidence of obstruction. Case was discussed with hospitalist patient was accepted for further disimpaction. Differential Diagnosis Differential Diagnosis: Colitis, diverticulitis, constipation, fecal impaction, bowel obstruction, UTI, urinary colonization Vital Signs Vital Signs: Vital Signs Temperature 97.8 F 12/13/24 11:40 Pulse Rate 98 12/13/24 11:40 Respiratory Rate 18 12/13/24 11:40 Blood Pressure 191/84 H 12/13/24 11:40 Pulse Oximetry 100 12/13/24 11:40 Oxygen Delivery Room Air 12/13/24 11:40 Temperature 97.8 F 12/13/24 11:40 Pulse Rate 82 12/13/24 15:45 Respiratory Rate 18 12/13/24 11:40 Blood Pressure 118/76 12/13/24 15:45 Pulse Oximetry 100 12/13/24 15:46 Oxygen Delivery Room Air 12/13/24 11:40 Lab Data Lab results reviewed: Yes I reviewed the patient's lab results. 12/13/24 12:04 12/13/24 12:04 Labs: Lab Results 12/13/24 12/13/24 Range/Units 12:04 13:53 WBC 7.7 (4.5-10.0) K/mm3 RBC 4.87 (4.2-5.4) M/mm3 Hgb 13.2 (12.0-15.0) g/dL Hct 40.9 (37.0-47.0) % MCV 84.0 (80-100) fl MCH 27.1 (26-34) pg MCHC 32.3 (32-36) g/dl RDW 14.3 (11.5-14.5) % Plt Count 210 (150-375) k/mm3 MPV 9.6 (7.4-10.4) fl Immature Gran % (Auto) 0.3 (0-0.5) % Neut % (Auto) 66.1 (45.5-73.1) % Lymph % (Auto) 22.0 (18.3-44.2) % [place] % (Auto) 9.6 H (2.6-8.5) % Eos % (Auto) 1.4 (0-4.4) % Baso % (Auto) 0.6 (0.2-1.2) % Lymph # (Auto) 1.70 (0.9-3.2) K/mm3 [place] # (Auto) 0.7 H (0.1-0.6) K/mm3 Eos # (Auto) 0.1 (0-0.3) K/mm3 Baso # (Auto) 0.1 (0.0-0.1) K/mm3 Abs Immat Gran (auto) 0.02 (0.00-0.031) K/mm3 Absolute Neuts (auto) 5.1 (1.3-6.7) K/mm3 Absolute Nucleated RBC 0.000 (0.0-0.012) K/mm3 Nucleated RBC % 0.0 (0.0-0.2) % Sodium 136 L (137-145) mmol/L Potassium 3.4 (3.4-5.0) mmol/L Chloride 100 (98-107) mmol/L Carbon Dioxide 26 (22-30) mmol/L Anion Gap 10 (4-12) mmol/L BUN 12 (7-17) mg/dL Creatinine 0.68 L (0.7-1.0) mg/dL Estim Creat Clear Calc 96 ml/min Estimated GFR > 60 (59 - ) Glucose 145 H (65-110) mg/dL Calcium 8.8 (8.4-10.2) mg/dL Total Bilirubin 1.2 (0.2-1.3) mg/dL AST 23 (14-36) U/L ALT 18 (6-35) U/L Alkaline Phosphatase 94 (38-126) U/L Total Protein 8.0 (6.3-8.2) g/dL Albumin 4.2 (3.5-5.1) g/dL Lipase 28 (23-300) U/L Urine Color Yellow (Yellow) Urine Appearance Cloudy H (Clear) Urine pH 6.5 (5.0-9.0) Ur Specific Niland 1.018 (1.001-1.035) Urine Protein Trace (Negative) mg/dL Urine Glucose (UA) Negative (Negative) mg/dL Urine Ketones Negative (Negative) mg/dL Ur Blood (Man) 1+ H (Negative) Urine Nitrate Positive H (Negative) Urine Bilirubin Negative (Negative) Urine Urobilinogen 1.0 (<2.0) mg/dL Leukocyte Esterase Rfl 3+ H (Negative) ERICK/UL Urine RBC 3-5 H (0-2) /hpf Urine WBC 51-100 H (0-3) /hpf Ur Squamous Epith Cells Few (Few) /hpf Urine Bacteria 4+ H /hpf Urine Casts 3-5 Imaging Data Radiologist's impression: Impressions Abdomen/Pelvis CT 12/13/24 12:50 IMPRESSION: 1. No evidence of appendicitis, diverticulitis or intestinal obstruction. 2. Ileal conduit with minimal fullness of the right renal pelvis. 3. Constipation. Discharge Plan Discharge Clinical Impression: Paraplegia, Constipation, UTI (urinary tract infection) Patient Disposition: Still a Patient Condition: Stable
--- OUTSIDE RECORDS SUMMARY | 2024-12-13 12:48 | XMS_ITS | Encounter Summary ---
Author Organization [facility] Address [address] [place] [address] Care Team Providers Care Qa Architect Name Role Phone Fiordaliza Snell MD Primary [...] on file Legal Sex Female 2:43 AM MITIGATION SUPERVISOR Gender Identity Not on file Sexual [...] Resu lt Performing Organization Address [facility] Phone Number INTERFACE SYSTEM Refer to clinic/hospital [...] Resul t Performing Organization Address [facility] Phone Number INTERFACE SYSTEM Refer to clinic/hospital department * (ABNORMAL) AMYLASE (10/13/2004 9:56 AM CDT) AMYLASE 24(L) 28 - 100 U/L INTERFACE SYSTEM 10/13/2004 9:56 AM CDT Russell Marie CHEMISTRY ORDERABLES Final Resul t Performing Organization Address [facility] Phone Number INTERFACE SYSTEM Refer to clinic/hospital department * LIPASE (10/13/2004 9:56 AM CDT) LIPASE 20 13 - 60 U/L INTERFAC E SYSTEM 10/13/2004 9:56 AM CDT [facility] CHEMISTRY ORDERABLES Final Resul t Performing Organization Address [facility] Phone Number INTERFACE SYSTEM Refer to clinic/hospital [...] K/uL INTERFACE SYSTEM 10/13/2004 5:00 AM CDT [facility] HEMATOLOGY ORDERABLES Final Resu lt Performing Organization Address [facility] Phone Number INTERFACE SYSTEM Refer to clinic/hospital [...] Resu lt Performing Organization Address [facility] Phone Number INTERFACE SYSTEM Refer to clinic/hospital department * (ABNORMAL) C-REACTIVE PROTEIN (10/13/2004 5:00 AM CDT) CRP 1.3(H) 0.0 - 0.8 mg/dL INTERFACE SYSTEM 10/13/2004 5:00 AM CDT Russell Salazar CHEMISTRY ORDERABLES Final Resul t Performing Organization Address [facility] Phone Number INTERFACE SYSTEM Refer to clinic/hospital [...] Final Result Performing Organization Address [facility] de Phone Number INTERFACE SYSTEM [...] ORDERABLES Final Resu lt Performing Organization Address [facility] Phone Number INTERFACE SYSTEM Refer to clinic/hospital department * (ABNORMAL) C-REACTIVE PROTEIN (10/12/2004 9:17 PM CDT) CRP 1.4(H) 0.0 - 0.8 mg/dL INTERFACE SYSTEM 10/12/2004 9:[address] MD CHEMISTRY ORDERABLES Final Resul t Performing Organization Address [facility] Phone Number INTERFACE SYSTEM Refer to clinic/hospital department * LIPASE (10/12/2004 9:17 PM CDT) LIPASE 41 13 - 60 U/L INTERFAC E SYSTEM 10/12/2004 9:[address] MD CHEMISTRY ORDERABLES Final Resul t Performing Organization Address [facility] de Phone Number INTERFACE SYSTEM Refer to clinic/hospital department * AMYLASE (10/12/2004 9:17 PM CDT) AMYLASE 39 28 - 100 U/L INTERFACE SYSTEM Comment:Previous specimen us ed; approved by floor. 10/12/2004 9:[address] MD CHEMISTRY ORDERABLES Final Resul t Performing Organization Address [facility] Phone Number INTERFACE SYSTEM Refer to clinic/hospital [...] Resu lt Performing Organization Address [facility] Phone Number INTERFACE SYSTEM Refer to clinic/hospital [...] Resu lt Performing Organization Address [facility] Phone Number INTERFACE SYSTEM Refer to clinic/hospital [...] Resul t Performing Organization Address [facility] Phone Number INTERFACE SYSTEM Refer to clinic/hospital department documented in this encounter Visit Diagnoses Diagnosis Abdominal pain, right lower quadrant- Primary documented in this encounter Additional Health Concerns Infection Onset Date Last Indicated Resolved Time R/O COVID-19 07/02/2020 07/02/2020 07/02/2020 8:53 PM MITIGATION SUPERVISOR MRSA Comment:Resolved per Type and Duration of Precautions Recommended for Selected Infections and Conditions document 2023 update 07/02/2020 07/02/2020 03/16/20 10:58 AM CDT R/O COVID-19 07/10/2020 07/10/2020 07/10/2020 5:01 PM MITIGATION SUPERVISOR documented as of this encounter Care Teams Qa Architect Relationship Specialty Start Date End Date Fiordaliza Snell MD PCP - General Family Practice 09/09/22 documented as of this encounter
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
--- OUTSIDE RECORDS SUMMARY | 2024-12-13 12:48 | XMS_ITS | Encounter Summary ---
Author Organization [facility] Address [address] [place] [address] Care Team Providers Care Shift Production Supervisor Name Role Phone Fiordaliza Snell MD Primary Care Provider Encounter Details Date Type Department Care Team (Late st Contact Info) Description 10/10/2003 Outpatient Historical [facility] Franki Grimes DO [address] [place] [address] Er, Authorized P NO ADDRESS ON FILE LUMBAGO (Primary Dx) Social History Tobacco Use Types Packs/Day Years Used Date Smoking Tobacco: Never Assessed Comments Unknown Sex and Gender Information Value Date Recorded Sex Assigned at Not on file Legal Sex Female 2:43 AM ARCHITECTURAL MANAGER Gender Identity Not on file Sexual Orientation Not on file documented as of this encounter Plan of Treatment Not on file documented as of this encounter Visit Diagnoses Diagnosis Lumbago- Primary documented in this encounter Additional Health Concerns Infection Onset Date Last Indicated Resolved Time R/O COVID-19 07/02/2020 07/02/2020 07/02/2020 8:53 PM ARCHITECTURAL MANAGER MRSA Comment:Resolved per Type and Duration of Precautions Recommended for Selected Infections and Conditions document 2023 update 07/02/2020 07/02/2020 03/16/20 24 10:58 AM CDT R/O COVID-19 07/10/2020 07/10/2020 07/10/2020 5:01 PM ARCHITECTURAL MANAGER documented as of this encounter Care Teams Shift Production Supervisor Relationship Specialty Start Date End Date Fiordaliza Snell MD PCP - General Family Practice 09/09/22 documented as of this encounter
--- OUTSIDE RECORDS SUMMARY | 2024-12-13 12:48 | XMS_ITS | Encounter Summary ---
Author Organization [facility] Address [address] [place] [address] Care Team Providers Care Systems Designer Name Role Phone Fiordaliza Snell MD Primary [...] on file Legal Sex Female 2:43 AM DOUBLER OPERATOR Gender Identity Not on file Sexual Orientation Not on file documented as of this encounter Plan of Treatment Not on file documented as of this encounter Visit Diagnoses Diagnosis Other and unspecified ovarian cyst- Primary documented in this encounter Additional Health Concerns Infection Onset Date Last Indicated Resolved Time R/O COVID-19 07/02/2020 07/02/2020 07/02/2020 8:53 PM DOUBLER OPERATOR MRSA Comment:Resolved per Type and Duration of Precautions Recommended for Selected Infections and Conditions document 2023 update 07/02/2020 07/02/2020 03/16/20 24 10:58 AM CDT R/O COVID-19 07/10/2020 07/10/2020 07/10/2020 5:01 PM DOUBLER OPERATOR documented as of this encounter Care Teams Systems Designer Relationship Specialty Start Date End Date Fiordaliza Snell MD PCP - General Family Practice 09/09/22 documented as of this encounter
--- OUTSIDE RECORDS SUMMARY | 2024-12-13 12:48 | XMS_ITS | Continuity of Care Document ---
Author Organization [facility] Address [address] [place] [address] Phone Care Team Providers Care Ancillary Services Manager Name Role Phone Jon Rodriguez MD Unavailable Unavailable Advance Directives Directive Yes / No Effective Date File Name No Information Encounters Encounter Description Practice Location Reason(s) For Visit Diagnoses Date Provider Providers Copied on Encounter [facility], [address] [facility], [place], [place], [id number], tel:[phone] [facility] LUMBAGO 0 Michael Webb. [address] [place] [address], [id number], . tel:[phone] [employer], [address] [facility], [place], [place], [address], tel:[phone] [facility] LUMBOSACRAL NEURITIS NOS 0 Ranjith Salazar. [address] [place] [address], [id number], . tel:[phone] [employer] [address] [facility], [place], [place], [address], tel:[phone] [facility] SPINAL STENOSIS-LUMBA R 8 No Information [employer] [address] [facility], [place], [place], [id number], tel:[phone] [facility] JOINT DIS NEC-PELVIS 8 No Information [facility] [address] [place] [address], [id number], tel:[phone] [facility] [place] (Ip) ARTHRODESIS STATUS 7 Michael Webb. [address] [place], [place], [id number], [place]. tel:[phone] [facility], [address] [facility], [place], [place], [id number], [place] tel:[phone] [facility] [place] (Ip) LUMBAR DISC DISPLACEMENT 7 Michael Webb. [address] [facility], [place], [place], [id number], [place]. tel:[phone] [facility], [address] [facility], [place], [place], [address], [place] tel:[phone] [facility] [place] (Op) PREOP RESPIRATORY EXAM 7 No Information [facility], [address] [facility], [place], [place], [id number], [place] tel:[phone] [facility] [place] (Op) PAIN IN LIMB 7 Michael Webb. [address] [place] [address], [place], [place], [id number], [place]. tel:[phone] [facility], [address] [facility], [place], [place], [address], [place] tel:[phone] [facility] CERVICALGIA 6 Juliann Gibson. [address], [place], [place], [address], [place]. tel:[phone] [facility], [address] [place] [address], [id number], [place] tel:[phone] [facility] OTH ADV EFF MED/BIO SUB 6 No Information [facility], [address] [facility], [place], [place], [address], [place] tel:[phone] [facility] [place] (Er) FALL NOS 2200 6 Monica Tapia. [address], [place], [place], [id number]. tel:[phone] [employer], [address] [facility], [place], [place], [id number], [place] tel:[phone] [facility] [place] (Op) HEADACHE 5200 6 Ranjith Salazar. [address], [place], [place], [address], [place]. tel:[phone] [employer], [address] [facility], [place], [place], [address], tel:[phone] [facility] [place] ([facility]) HEAD INJURY NOS 6 Michael Castellano [address] [place], [place], [address], . tel:[phone] [employer], [address] [facility], [place], [place], [address], tel:[phone] [facility] [place] ([facility]) CERVICAL SPINAL STENOSIS 6 Juliann Sauceda [address] [place] [address], [id number], . tel:[phone] [employer], [address] [facility], [place], [place], [address], tel:[phone] [facility] [place] ([facility]) BRACHIAL NEURITIS NOS 6 Juliann Sauceda [address] [place] [address], [id number], . tel:[phone] [employer], [address] [facility], [place], [place], [id number], tel:[phone] [facility] [place] (Ip) FOLLOW-UP SURGERY NOS 4 Michael Castellano [address] [place], [place], [id number], . tel:[phone] [employer], [address] [facility], [place], [place], [id number], tel:[phone] [facility] [place] ([facility]) COUGH 4 No Information Family History [...]
--- OUTSIDE RECORDS SUMMARY | 2024-12-13 12:48 | XMS_ITS | Encounter Summary ---
Author Organization [facility] Address [address] [place] [address] Care Team Providers Care Congressional Aide Name Role Phone Unknown, Notinfile Primary Care Provider Unavail able Shilpa Frazier DO Primary Care Provider Lidia Barajas MD Unavailable Ab Melara MD Primary Care Provid er Encounter Details Date Type Department Care Team (Late st Contact Info) Description 04/07/2018 Telephone [facility] [address] [facility] [address] [place] [address] Kate Johnson, RT Social History Tobacco Use Types Packs/Day Years Used Date Smoking Tobacco: Never Smokeless Tobacco: Never Alcohol Use Standard Drinks/Week Comments No 0 (1 standard drink = 0.6 oz pur e alcohol) Comments No Sex and Gender Information Value Date Recorded Sex Assigned at Not on file Legal Sex Female 11:49 PM MANAGER BODY Gender Identity Not on file Sexual Orientation [...] MRSA 12/27/2021 03/06/2022 09/02/2022 3:05 AM MANAGER BODY documented as of this encounter Care Teams Congressional Aide Relationship Specialty Start Date End Date Unknown, Notinfile PCP - General 08/28/17 06/11/18 Shilpa Frazier DO PCP - General 06/12/18 07/15/21 Ab Melara MD [address] [address] PCP - General Family Medicine 07/16/21 Lidia Barajas MD Anesthesiologist Anesthesiology 01/13/20 documented as of this encounter
--- OUTSIDE RECORDS SUMMARY | 2024-12-13 12:48 | XMS_ITS | Encounter Summary ---
Author Organization [facility] Address [address] [place] [address] Care Team Providers Care Guest Attendant Name Role Phone Fiordaliza Snell MD Primary Care Provider Encounter Details Date Type Department Care Team (Late st Contact Info) Description 05/06/2001 Outpatient Historical [facility] Pratik Fisher MD [facility] [place] [address] Er, Authorized P NO ADDRESS ON FILE ABDOMINAL PAIN OTHER SPEC SITE (Primary Dx) Social History Tobacco Use Types Packs/Day Years Used Date Smoking Tobacco: Never Assessed Comments Unknown Sex and Gender Information Value Date Recorded Sex Assigned at Not on file Legal Sex Female 2:43 AM DRAMATIC CRITIC Gender Identity Not on file Sexual Orientation Not on file documented as of this encounter Plan of Treatment Not on file documented as of this encounter Visit Diagnoses Diagnosis Abdominal pain, other specified site- Primary documented in this encounter Additional Health Concerns Infection Onset Date Last Indicated Resolved Time R/O COVID-19 07/02/2020 07/02/2020 07/02/2020 8:53 PM DRAMATIC CRITIC MRSA Comment:Resolved per Type and Duration of Precautions Recommended for Selected Infections and Conditions document 2023 update 07/02/2020 07/02/2020 03/16/20 24 10:58 AM CDT R/O COVID-19 07/10/2020 07/10/2020 07/10/2020 5:01 PM DRAMATIC CRITIC documented as of this encounter Care Teams Guest Attendant Relationship Specialty Start Date End Date Fiordaliza Snell MD PCP - General Family Practice 09/09/22 documented as of this encounter
--- OUTSIDE RECORDS SUMMARY | 2024-12-13 12:48 | XMS_ITS | Encounter Summary ---
Author Organization [facility] Address [address] [place] [address] Care Team Providers Care Oyster Culler Name Role Phone Fiordaliza Snell MD Primary [...] on file Legal Sex Female 2:43 AM FIXTURE MAKER Gender Identity Not on file Sexual Orientation Not on file documented as of this encounter Plan of Treatment Not on file documented as of this encounter Visit Diagnoses Diagnosis Chronic salpingitis and oophoritis- Primary documented in this encounter Additional Health Concerns Infection Onset Date Last Indicated Resolved Time R/O COVID-19 07/02/2020 07/02/2020 07/02/2020 8:53 PM FIXTURE MAKER MRSA Comment:Resolved per Type and Duration of Precautions Recommended for Selected Infections and Conditions document 2023 update 07/02/2020 07/02/2020 03/16/20 24 10:58 AM CDT R/O COVID-19 07/10/2020 07/10/2020 07/10/2020 5:01 PM FIXTURE MAKER documented as of this encounter Care Teams Oyster Culler Relationship Specialty Start Date End Date Fiordaliza Snell MD PCP - General Family Practice 09/09/22 documented as of this encounter
--- OUTSIDE RECORDS SUMMARY | 2024-12-13 12:48 | XMS_ITS | Encounter Summary ---
Author Organization [facility] Address [address] [place] [address] Care Team Providers Care Steel Layer Name Role Phone Fiordaliza Snell MD Primary Care Provider Encounter Details Date Type Department Care Team (Late st Contact Info) Description 04/18/2003 Outpatient Historical [facility] Otilia Florentino MD [facility] [place] [address] Er, Authorized P NO ADDRESS ON FILE ABDOMINAL PAIN RLQ (Primary Dx) Social History Tobacco Use Types Packs/Day Years Used Date Smoking Tobacco: Never Assessed Comments Unknown Sex and Gender Information Value Date Recorded Sex Assigned at Not on file Legal Sex Female 2:43 AM SOCIAL SCIENCES CHAIR Gender Identity Not on file Sexual Orientation Not on file documented as of this encounter Plan of Treatment Not on file documented as of this encounter Visit Diagnoses Diagnosis Abdominal pain, right lower quadrant- Primary documented in this encounter Additional Health Concerns Infection Onset Date Last Indicated Resolved Time R/O COVID-19 07/02/2020 07/02/2020 07/02/2020 8:53 PM SOCIAL SCIENCES CHAIR MRSA Comment:Resolved per Type and Duration of Precautions Recommended for Selected Infections and Conditions document 2023 update 07/02/2020 07/02/2020 03/16/20 24 10:58 AM CDT R/O COVID-19 07/10/2020 07/10/2020 07/10/2020 5:01 PM SOCIAL SCIENCES CHAIR documented as of this encounter Care Teams Steel Layer Relationship Specialty Start Date End Date Fiordaliza Snell MD PCP - General Family Practice 09/09/22 documented as of this encounter
--- OUTSIDE RECORDS SUMMARY | 2024-12-13 12:48 | XMS_ITS | Clinical Summary ---
Author Organization [facility] Address [address] [place] [address] Phone Care Team Providers Care Revenue Cycle Manager Name Role Phone Unavailable Primary Care Provider Unavailabl e Social History Tobacco Use Types Packs/Day Years Used Date Smoking Tobacco: Never Assessed Comments Unknown Sex and Gender Information Value Date Recorded Sex Assigned at Not on file Legal Sex Female 3:52 AM RUBBER TUBING SPLICER Gender Identity Not on file Sexual [...]
--- OUTSIDE RECORDS SUMMARY | 2024-12-13 12:48 | XMS_ITS | Encounter Summary ---
Author Organization [facility] Healthcare Address [address] [place] [address] Care Team Providers Care Facilities And Grounds Director Name Role Phone Shilpa Frazier DO Primary Care Provider Lidia Barajas MD Unavailable Ab Melara MD Primary Care Provid er Encounter Details Date Type Department Care Team (Late st Contact Info) Description 06/15/2018 Telephone [facility] [address] [facility] [address] [place] [address] Emil Clarke, RT Social History Tobacco Use Types Packs/Day Years Used Date Smoking Tobacco: Never Smokeless Tobacco: Never Alcohol Use Standard Drinks/Week Comments No 0 (1 standard drink = 0.6 oz pur e alcohol) Comments No Sex and Gender Information Value Date Recorded Sex Assigned at Not on file Legal Sex Female 11:49 PM HEARING EXAMINER Gender Identity Not on file Sexual Orientation Not on file documented as of this encounter Plan of Treatment Not on file documented as of this encounter Visit Diagnoses Not on filedocumented in this encounter Additional Health Concerns Infection Onset Date Last Indicated Resolved Time MRSA Comment:11.19.19 @ 1043: Spoke with Pam who will relay message to patient's nurse, Ravinrda, that the patient has an active MRSA infection and needs to be on contact isolation instead of modified contact isolation. 11/16/2019 11/16/2019 02/14/2021 5:00 AM C DT MRSA 12/27/2021 03/06/2022 09/02/2022 3:05 AM HEARING EXAMINER documented as of this encounter Care Teams Facilities And Grounds Director Relationship Specialty Start Date End Date Frazier Shilpaolimpia Law DO PCP - General 06/12/18 07/15/21 Ab Melara MD [address] [address] PCP - General Family Medicine 07/16/21 Ldiia Barajas MD Anesthesiologist Anesthesiology 01/13/20 documented as of this encounter
--- OUTSIDE RECORDS SUMMARY | 2024-12-13 12:48 | XMS_ITS | Clinical Summary ---
Author Organization [facility] Address [address] [place] [address] Care Team Providers Care Tribunal Member Name Role Phone Unavailable Primary Care Provider [...] Comments Blood Pressure 152/77 05/21/2019 8:00 AM FRESH FOODS CAKE DECORATOR Pulse 75 05/21/2019 8:00 AM FRESH FOODS CAKE DECORATOR Temperature 36.3 C (97.3 F) 05/21/2019 8:00 AM FRESH FOODS CAKE DECORATOR Respiratory Rate 18 05/21/2019 8:00 AM FRESH FOODS CAKE DECORATOR Oxygen Saturation 98% 05/21/2019 8:00 AM FRESH FOODS CAKE DECORATOR Inhaled Oxygen Concentration - - Weight 108.9 kg (240 lb 1.6 oz) 05/09/2019 6:52 AM FRESH FOODS CAKE DECORATOR Height 172.7 cm (5' 8) 04/18/2019 12:2 [...]
--- OUTSIDE RECORDS SUMMARY | 2024-12-13 12:48 | XMS_ITS | Encounter Summary ---
Author Organization [facility] Address [address] [place] [address] Care Team Providers Care Core Extruder Name Role Phone Fiordaliza Snell MD Primary Care Provider Encounter Details Date Type Department Care Team (Latest Contact Info) Description 11/13/2004 Outpatient Historical HIS [facility] RONALD Garcia, Anjali Gupta MD NO ADDRESS ON FILE LUMP OR MASS IN BREAST (Primary Dx) Social History Tobacco Use Types Packs/Day Years Used Date Smoking Tobacco: Never Assessed Comments Unknown Sex and Gender Information Value Date Recorded Sex Assigned at Not on file Legal Sex Female 2:43 AM ANTENNA RIGGER Gender Identity Not on file Sexual Orientation Not on file documented as of this encounter Plan of Treatment Not on file documented as of this encounter Visit Diagnoses Diagnosis Lump or mass in breast- Primary documented in this encounter Additional Health Concerns Infection Onset Date Last Indicated Resolved Time R/O COVID-19 07/02/2020 07/02/2020 07/02/2020 8:53 PM ANTENNA RIGGER MRSA Comment:Resolved per Type and Duration of Precautions Recommended for Selected Infections and Conditions document 2023 update 07/02/2020 07/02/2020 03/16/20 24 10:58 AM CDT R/O COVID-19 07/10/2020 07/10/2020 07/10/2020 5:01 PM ANTENNA RIGGER documented as of this encounter Care Teams Core Extruder Relationship Specialty Start Date End Date Fiordaliza Snell MD PCP - General Family Practice 09/09/22 documented as of this encounter
--- OUTSIDE RECORDS SUMMARY | 2024-12-13 12:49 | XMS_ITS | Encounter Summary ---
Author Organization [facility] Address [address] [place] [address] Care Team Providers Care Whiting Machine Operator Name Role Phone Fiordaliza Snell [...] on file Legal Sex Female 2:43 AM MARKET DEVELOPMENT SPECIALIST Gender Identity Not on file Sexual Orientation Not on file documented as of this encounter Plan of Treatment Not on file documented as of this encounter Visit Diagnoses Diagnosis Unspecified symptom associated with female genital organs- Primary documented in this encounter Additional Health Concerns Infection Onset Date Last Indicated Resolved Time R/O COVID-19 07/02/2020 07/02/2020 07/02/2020 8:53 PM MARKET DEVELOPMENT SPECIALIST MRSA Comment:Resolved per Type and Duration of Precautions Recommended for Selected Infections and Conditions document 2023 update 07/02/2020 07/02/2020 03/16/20 24 10:58 AM CDT R/O COVID-19 07/10/2020 07/10/2020 07/10/2020 5:01 PM MARKET DEVELOPMENT SPECIALIST documented as of this encounter Care Teams Whiting Machine Operator Relationship Specialty Start Date End Date Fiordaliza Snell MD PCP - General Family Practice 09/09/22 documented as of this encounter
--- OUTSIDE RECORDS SUMMARY | 2024-12-13 12:49 | XMS_ITS | Encounter Summary ---
Author Organization [facility] Healthcare Address [address] [place] [address] Care Team Providers Care Gear Keeper Name Role Phone Shilpa Frazier DO Primary Care Provider Lidia Barajas MD Unavailable Ab Melara MD Primary Care Provid er Encounter Details Date Type Department Care Team (Late st Contact Info) Description 03/15/[address] [facility] - Interventional Radiology [address] [place] [address] Philly Aguirre RN Social History [...] on file Legal Sex Female 11:49 PM GUNSTOCK REPAIRER Gender Identity Not on file Sexual Orientation [...] DT MRSA 12/27/2021 03/06/2022 09/02/2022 3:05 AM GUNSTOCK REPAIRER documented as of this encounter Care Teams Gear Keeper Relationship Specialty Start Date End Date Shilpa Frazier DO PCP - General 06/12/18 07/15/21 Ab Melara MD [address] [address] PCP - General Family Medicine 07/16/21 Lidia Barajas MD Anesthesiologist Anesthesiology 01/13/20 documented as of this encounter
--- OUTSIDE RECORDS SUMMARY | 2024-12-13 12:49 | XMS_ITS | Clinical Summary ---
Author Organization [facility] Address [address] [place] [address] Care Team Providers Care Rubber Gasket Inspector Trimmer Name Role Phone Lidia Barajas MD Unavailable [...] for pain 42 tablet 2 Active multivit vwytkiun-gwmr-SU-c alcium (THERA-M) 9 mg iron-400 mcg tabletIndications: [...] (10/24/2021): Added automatically from request for surgery [id number] Postlaminectomy syndrome, lumbar region 10/25/19 Overview (10/24/2021): Added automatically from request for surgery [id number] Assessment & Plan (07/03/2022 3:48 PM CERTIFIED MEETING PROFESSIONAL): Ms. Mcnulty is doing well following lumbar [...] (10/24/2021): Added automatically from request for surgery [id number] Other chest pain 01/19/2020 Assessment & Plan [...] need for exchange this admission Suprapubic catheter ([facility]) 11/16/2019 Essential hypertension 11/16/2019 Hypertensive urgency [...] (11/25/2019): Added automatically from request for surgery [id number] Chronic lumbar radiculopathy 01/21/2019 Chronic back pain 01/21/2019 Spinal stenosis of lumbar region with radiculopa thy 12/04/2018 Assessment & Plan (07/18/2021 10:23 AM CERTIFIED MEETING PROFESSIONAL): Assessment Healed fusion L2-5 severe retrolisthesis with [...] (06/18/2018): Added automatically from request for surgery [id number] Assessment & Plan (12/04/2018 3:42 PM CDT): Healing fusion C6-7 Continued observation. Assessment & Plan (08/12/2018 10:35 AM CERTIFIED MEETING PROFESSIONAL): Assessment Healing fusion C6-7 Plan Talked about do's and don'ts she is still to maintain her initial restrictions and return in 6 weeks for an x-ray Assessment & Plan (06/25/2018 2:43 PM CERTIFIED MEETING PROFESSIONAL): Angelina was recently hospitalized at [facility] and diagnosed with a disc osteophyte [...] (06/18/2018): Added automatically from request for surgery [id number] Cervical pain (neck) 06/13/2018 Asthma 11/13/2013 Overview [...] Bladder tumor Acute CVA (cerebrovascular a ccident) ([facility]) 12/27/2021 Family History Medical History Relation [...] often do you attend chur ch or bahai services? More than 4 times per year 03/07/2022 Do you belong to any clubs o r organizations such as shinto groups, unions, fraternal or athletic groups, or [...] place to sleep or slept in a intermediate (including now)? No 03/07/2022 Comments No Sex and Gender Information Value Date Recorded Sex Assigned at Not on file Legal Sex Female 11:49 PM CERTIFIED MEETING PROFESSIONAL Gender Identity Not on file Sexual [...] Plan Chronic Care Management Worsening( 10:12 AM CERTIFIED MEETING PROFESSIONAL) Milvia Mireles RN Note: Problem: Chronic Pain Goals: 1. Minimize further functional decline 2. Maximize quality of life 3. Control pain Strategies: - Activity/exercise program recommendation - Conservative stepwise pain medicine strategy with multi-disciplinary approach - Recommend healthy lifestyle strategies and compensatory methods as needed Medical Devices Implanted Type Area Prime Broker Device Identifier Shelf Expiration Date Model / Serial / Lot Spinal Cord Stimulator-2016 Implanted:01/28 (Quantity not on file) Spinal Cord Stimulator Left: Hip Nevro Spinal Cord Stimulation System [id number] / / Description:Closed Bore only 1.5T or 3T Coils must be transmit/receive. Receive only coils cannot be used. The body coil/ q coil/ internal magnet coil cannot be used. HALYEY <3.2 W/kg There cannot be any components [...] Allograft Putty Syringe Graft 2.5cc Bone - [id number] Implanted:Qty: 1 on 07/03/2018 by Zachary Rothman MD at [facility] N/A: Spine Cervical [employer] Inc 03/29/2021 700-025 / / [id number] Plate 1-Level 14 Mm Cervical - [id number] Implanted:Qty: 1 on 07/03/2018 by Zachary Rothman MD at [facility] N/A: Spine Cervical [employer] 30-0114 / / Screw 4.0x14mm Self Drilling Variable - [id number] Implanted:Qty: 4 on 07/03/2018 by Zachary Rothman MD at [facility] N/A: Spine Cervical [employer] 31-4014 / / Cage Spinal [id number] 7 Degree Porous Coated Latex Free - [id number] Implanted:Qty: 1 on 07/03/2018 by Zachary Rothman MD at [facility] N/A: Spine Cervical Spinal Elements [id number] / / Depuy Synthes Spine [id number] Substitute Bone Graft Fibergraft Gps Medium Putty 6cc - [id number] Implanted:Qty: 1 on 11/29/2021 by Dave Louis MD at [facility] N/A: Lumbar-Sa cral Spine Depuy Synthes Spine [id number] 10/18/2023 [id number] / / [id number] [employer] Inc Osteosponge Allograft Chips Radiolucent Thk4-10mm Graft 30cc Bone [id number] - [id number] - [id number] Implanted:Qty: 1 on 11/29/2021 by Dave Louis MD at [facility] N/A: Lumbar-Sa cral Spine [employer] Inc 10/14/2024 [id number] / [id number] / Depuy Synthes Spine Cage Post Spinal 4d Plif Ti [id number] - [id number] Implanted:Qty: 1 on 11/29/2021 by Dave Louis MD at [facility] N/A: Lumbar-Sa cral Spine Depuy Synthes Spine [id number] 07/30/2024 [id number] / / [id number] Depuy Synthes Spine Expedium 5.5mm 80mm Line Prebent Rodney Spinal Titanium Nonsterile [id number] - [id number] Implanted:Qty: 1 on 11/29/2021 by Dave Louis MD at [facility] N/A: Lumbar-Sa cral Spine Depuy Synthes Spine [id number] / / Depuy Synthes Spine Expedium 5.5mm 85mm Line Prebent Rodney Spinal Titanium Nonsterile [id number] - [id number] Implanted:Qty: 1 on 11/29/2021 by Dave Louis MD at [facility] N/A: Lumbar-Sa cral Spine Depuy Synthes Spine [id number] / / Depuy Synthes Spine Expedium 5.5mm 45mm Polyaxial Spine Screw Bone Titanium 5.5mm Rodney [id number] - [id number] Implanted:Qty: 2 on 11/29/2021 by Dave Louis MD at [facility] N/A: Lumbar-Sa cral Spine Depuy Synthes Spine [id number] / / Depuy Synthes Spine Expedium 6.5mm 45mm Polyaxial Spine Screw Bone Titanium 5.5mm Rodney [id number] - [id number] Implanted:Qty: 3 on 11/29/2021 by Dave Louis MD at [facility] N/A: Lumbar-Sa cral Spine Depuy Synthes Spine [id number] / / Depuy Synthes Spine Expedium 1 Inner Monoaxial Spine Screw Set Titanium [id number] - [id number] Implanted:Qty: 6 on 11/29/2021 by Dave Louis MD at [facility] N/A: Lumbar-Sa cral Spine Depuy Synthes Spine [id number] / / Depuy Synthes Spine Expedium 7mm 45mm 1 Innie Polyaxial Spine Screw Bone Titanium [id number] - [id number] Implanted:Qty: 1 on 11/29/2021 by Dave Louis MD at [facility] N/A: Lumbar-Sa cral Spine Depuy Synthes Spine [id number] / / Procedures Procedure Name Priority Date/Time [...] 11/29/2019 8:04 AM Admit Type: Inpatient Room: [facility] Date of : 1965 Instrument [...] the bowel preparation was evaluated usingthe BBPS (Oxbow Bowel Preparation Scale) with scores of: Right [...] AM CDT) Hep A IgM Nonreactive Nonreactive [facility] Comment: Interpretive Data: If Hep A IgM Ab is reported as Equivocal, a new sample should be drawn in two weeks for testing. Current interpretive data was last revised on 19. Hep B core IgM Nonreactive Nonreactive [facility] Comment: Interpretive Data If HepB Core IgM Ab is reported as Equivocal, a new sample should be drawn in two weeks for testing. Current interpretive data was last revised on 19. Hep C Ab Nonreactive Nonreactive [facility] Comment: Interpretive Data Nonreactive: Antibodies to [...] revised on 2019. HepBsAg Nonreactive Nonreactive [facility] Blood specimen (specimen) 11/17/2019 4:13 AM CDT 11/17/2019 4:31 AM CDT [facility] MICROBIOLOGY - GENERAL ORDERABLES Final Result [facility] [address] Department [place] [address] from Last 3 Months or Most Recently Relevant to Health Maintenance Insurance UHC MEDICARE ADVANTAGE [facility] MEDICARE [id number] [place] [address] MEDICARE UHC MEDICARE ADVANTAGE Advance Directives For more information, please contact: [phone] Documents on File Type Date Recorded Patient Paying Teller Expl anation Power of Line Service Attendant 11/29/2021 11:46 AM * Full Code (Latest [...] First Alternate Health Care Agent Care Teams Rubber Gasket Inspector Trimmer Relationship Specialty Start Date End Date Ab Melara MD [address] [address] PCP - General Family Medicine 07/16/21 Lidia Barajas MD Anesthesiologist Anesthesiology 01/13/20
--- OUTSIDE RECORDS SUMMARY | 2024-12-13 12:49 | XMS_ITS | Clinical Summary ---
Author Organization [facility] Address [address] [place] [address] Phone Care Team Providers Care Golf Course Keeper Name Role Phone Fiordaliza Snell MD Primary [...] migh t be different from the original. Kitchen Cleaner - Dr. Eddie Tapia MD, [facility], [facility] [address] [facility] Problem Noted Date Diagnosed Date YAJAIRA [...] NOS Added automatically from request for surgery [id number] Last Assessment & Plan: Healing fusion C6-7 [...] (09/14/2021): Added automatically from request for surgery [id number] Cervical pain (neck) 06/13/2018 Intractable pain 10/13/2011 [...] 07/25/2020 Immunizations Immunization Administration Dates Next Due (Yext)(12 YR UP) COVID-19 VACCINE - EMERGENCY USE AUTHORIZATION, MRNA, [id number](PF) 30 MCG/0.3 ML IM SUSP 12/13/2020,11/20/2020 (PNEUMOVAX [...] file Legal Sex Female 2:43 AM MANAGER PE Gender Identity Not on file Sexual Orientation [...] CDT Respiratory Rate 18 07/12/2020 9:24 PM MANAGER PE Oxygen Saturation 97% 04/20/2021 2:12 PM CDT Inhaled Oxygen Concentration - - Weight 91.6 kg (202 lb) 08/07/2020 2:15 PM MANAGER PE Height 172.7 cm (5' 8) 04/20/2021 2:12 PM CDT Body Mass Index 30.71 08/07/2020 2:15 PM MANAGER PE Plan of Treatment Health Maintenance Due Date [...] Advance Directives For more information, please contact: [phone] * Full Code (Latest Code Status on File) Date Activated Date Inactivated Comments 07/02/2020 10:50 PM 07/13/2020 1:53 PM * Full Code Date Activated Date Inactivated Comments 06/26/2011 3:20 AM 06/26/2011 8:40 PM Care Teams Golf Course Keeper Relationship Specialty Start Date End Date Fiordaliza Snell MD PCP - General Family Practice 09/09/22
--- OUTSIDE RECORDS SUMMARY | 2024-12-13 12:49 | XMS_ITS | Continuity of Care Document ---
Author Organization [facility] Address [address] [place] [address] Phone Care Team Providers Care Director Stage Name Role Phone Shreyas Dumont MD Unavailable Unavailable Allergies, Adverse Reactions, Alerts Substance Reaction Status Criticality Sulfa (Sulfonamide Antibiotics) Hives Active No Information Penicillins Hives Active No Information TAPE, OCCLUSIVE ADHESIVE Active No Information Penicillins Unknown Active No Information Medications Medication Instructions Dosage Effective Dates (start - stop) Status Comments Moyers 5 mg-325 mg tablet take 1-2 tabs [...] 2015 OFFICE/OUTPATIENT VISIT EST OFFICE/OUTPATIENT VISIT [facility] Advance Directives Directive Yes / No Effective Date File Name No Information Encounters Encounter Description Practice Location Reason(s) For Visit Diagnoses Date Provider Providers Copied on Encounter [facility], [address], [place], [address], [place] [phone] [facility] [place] Ulnar neuropathy at elbow, leftPostopera tive visit 0 7 Tim Pritchett. [address], [place], [place], [address] . tel: [phone] [facility], [address] [address], [place], [address], [place] tel:[phone] [facility] Ulnar neuropathy at elbow, left 8 7 Paul Handley. [address], [place], [place], [id number] . tel: [phone] [facility], [address] [address], [place], [address], [place] [phone] [facility] Numbness of left hand 7- 7 Tim Pritchett. [address], [place], [place], [id number] . tel: [phone] [facility], [address] [address], [place], [address], [place] [phone] [facility] [place] Postoperative visit 6 Tim Pritchett. [address], [place], [place], [id number] . tel: [phone] [facility], [address] [facility], [place], [address], [place] tel:[phone] [facility] Ulnar neuropathy at elbow, left 6 Tim Pritchett. [address], [place], [place], [id number] . tel: [phone] OFFICE/OUTPA TIENT VISIT EST [facility], [address], [place], [address], [place] tel:[phone] [facility] [place] Pain in left elbowUlnar neuropathy at elbow, left 6 Tim Pritchett. [address], [place], [place], [id number] . tel: [phone] OFFICE/OUTPA TIENT VISIT EST [facility], [address], [place], [address], [place] [phone] [facility] [place] Pain in left elbowUlnar neuritis, left 6 Tim Pritchett. [address], [place], [place], [id number] . tel: [phone] Referring Provider: Migue Caruso [facility] [address], [place], [address]. [phone] OFFICE/OUTPA TIENT VISIT [facility], [address], [place], [address], [place] [phone] [facility] evhi left thumb/hand (chief complaint) Primary osteoarthriti s of first carpometacarp al joint of left handDe Quervain's tenosynovitis 6 Ciera Brice. [address] [place], [place], [id number] . tel: [phone] Family History Family Member Type Diagnosis Age At Onset Father Problem (finding) Cancer, unknown Payers Payer name Insurance type Covered democrat [...]
--- OUTSIDE RECORDS SUMMARY | 2024-12-13 12:49 | XMS_ITS | Encounter Summary ---
Author Organization [facility] Address [address] [facility] [place] [address] Care Team Providers Care Director Executive Communications Name Role Phone Shilpa Frazier DO Primary Care Provider [phone] Lidia Barajas MD Unavailable Shilpa Gandhi MD Unavailable [phone] Massiel Melara MD Primary Care Provider [phone] Shilpa Frazier DO Primary Care Provider Iron Galindo PA-C Primary Care Provide r Cresencio Ghosh MD Unavailable [phone] Cresencio Ghosh MD Unavailable [phone] Cresencio Ghosh MD Unavailable [phone] Encounter Details Date Type Department Care Team (Late st Contact Info) Description 01/23/2015 Therapy Visit [facility]TERNAL [facility] Sunny Reynoso MD [address] [address] Social History Tobacco Use Types Packs/Day Years Used Date Smoking Tobacco: Never Alcohol Use Standard Drinks/Week Comments Yes 0 (1 standard drink = 0.6 oz pur e alcohol) 1-2 year Comments Unknown Sex and Gender Information Value Date Recorded Sex Assigned at Not on file Legal Sex Female 6:02 AM SHOP MECHANIC HELPER Gender Identity Not on file [...] NO NEED FOR ISOLATION AT THIS TIME; RECREATION AIDE INF PREV [id number] 10/07/2019 10/07/2019 09/05/19 8:37 AM SHOP MECHANIC HELPER MRSA 10/07/2019 10/07/2019 01/29/2020 8:33 AM CDT MRSA 01/28/2020 01/28/2020 03/20/2020 7:45 AM CDT COVID-19 Under Investigation 04/06/2020 04/08/2020 04/09/2020 5:20 AM CDT MRSA 04/11/2020 04/11/2020 12/25/2020 9:00 AM CDT COVID-19 Under Investigation 08/07/2020 08/07/2020 08/08/2020 3:45 PM SHOP MECHANIC HELPER COVID-19 Under Investigation 08/11/2020 08/11/2020 08/12/2020 4:08 AM SHOP MECHANIC HELPER MRSA 05/13/2021 02/05/2022 09/04/2022 8:37 AM SHOP MECHANIC HELPER MRSA Hx 09/04/2022 09/04/2022 MDRO Comment:04/01/23 MDRO resolved, ES 02/23/2023 02/23/20232022 7:16 AM CDT MDRO Hx 04/01/2023 04/01/2023 MDRO 05/08/2023 05/08/2023 documented as of this encounter Care Teams Director Executive Communications Relationship Specialty Start Date End Date Shilpa Frazier DO [address] [facility] [address] [place] [address] PCP - General Family Medicine 08/06/17 07/31/20 Massiel Melara MD [address] [place] [address] PCP - General Family Medicine 08/01/20 10/01/20 Shilpa Frazier DO [address] [facility] [address] [place] [address] PCP - General Family Medicine 10/02/20 10/03/20 Iron Galindo PA-C [address] [address] [address] [place], [place] [address] PCP - General Physician Human Geography Faculty Member 02/12/23 Cresencio Ghosh MD [address] [place] [address] PCP - Attributed-[facility] P4 12/29/23 09/14/24 Cresencio Ghosh MD [address] [place] [address] PCP - Attributed-[facility] P4 10/28/24 Lidia Barajas MD [address] [facility] [address] Anesthesiology-Pain Management 06/03/19 Shilpa Gandhi MD [address] [place] [address] Oncology 06/03/19 Cresencio Ghosh MD [address] [place] [address] Internal Medicine Sleep Medicine 09/29/24 documented as of this encounter
--- OUTSIDE RECORDS SUMMARY | 2024-12-13 12:49 | XMS_ITS | Encounter Summary ---
Author Organization [facility] Address [address] [place] [address] Care Team Providers Care Promotor Group Ticket Sales Name Role Phone Fiordaliza Snell MD Primary [...] on file Legal Sex Female 2:43 AM REFUND SPECIALIST Gender Identity Not on file Sexual Orientation Not on file documented as of this encounter Plan of Treatment Not on file documented as of this encounter Visit Diagnoses Diagnosis Unspecified symptom associated with female genital organs- Primary documented in this encounter Additional Health Concerns Infection Onset Date Last Indicated Resolved Time R/O COVID-19 07/02/2020 07/02/2020 07/02/2020 8:53 PM REFUND SPECIALIST MRSA Comment:Resolved per Type and Duration of Precautions Recommended for Selected Infections and Conditions document 2023 update 07/02/2020 07/02/2020 03/16/20 24 10:58 AM CDT R/O COVID-19 07/10/2020 07/10/2020 07/10/2020 5:01 PM REFUND SPECIALIST documented as of this encounter Care Teams Promotor Group Ticket Sales Relationship Specialty Start Date End Date Fiordaliza Snell MD PCP - General Family Practice 09/09/22 documented as of this encounter
--- OUTSIDE RECORDS SUMMARY | 2024-12-13 12:49 | XMS_ITS | Continuity of Care Document ---
Author Organization [facility] Address [address] [facility] [address] [place] [address] Phone Care Team Providers Care Hydroelectric Mechanic Name Role Phone Klaus ATKINSON MD, Denys [...] tient visit,est, mod [facility], [address], [place], [place], [id number], [place] tel:[phone] [facility] r knee (chief complaint) Pain in right knee 4 Klaus Mcfarlane. [address] [place] [address], [place], [place], [id number], [place]. tel:[phone] Referring Provider: Martin Medina, [address] [place] [address] [address] [facility], [place], [address]. tel:[phone] [facility], [address] [place] [address], [id number], [place] tel:[phone] [facility] Pain in left shoulder 2 Klaus Mcfarlane. [address] [place] [address], [place], [place], [id number], [place]. tel:[phone] [facility], [address] [place] [address], [id number], [place] tel:[phone] [facility] fell Out Of Wheelchair And Shived Both Shoulders (chief complaint) Pain in left shoulderPain in right shoulder 2 Klaus Mcfarlane. [address] [place] [address], [place], [place], [id number], [place]. tel:[phone] Referring Provider: Martin Medina, [address] [place] [address] [address] [facility], [place], [address]. tel:[phone] [facility]pa [facility]ient [facility], [address] [place] [address], [id number], [place] tel:[phone] [facility] No Information Sep-2 0 No Information Referring Provider: Martin Medina, [address] [place] [address] [address] [facility], [place], [address]. tel:[phone] Family History Family Member Type Diagnosis Age At Onset Mother Problem (finding) Heart Disease Brother Problem (finding) Depression Mother Problem (finding) Cancer, unknown Mother Problem (finding) Depression Brother Problem (finding) Hypertension Father Problem (finding) Cancer, unknown Mother Problem (finding) Hypertension Father Problem (finding) Hypertension Father Problem (finding) Depression Payers Payer name Insurance type Covered libertarian [...]
--- OUTSIDE RECORDS SUMMARY | 2024-12-13 12:49 | XMS_ITS | Encounter Summary ---
Author Organization [facility] Address [address] [place] [address] Care Team Providers Care Research Assoc Name Role Phone Fiordaliza Snell MD Primary [...] on file Legal Sex Female 2:43 AM AQUACULTURE FARMER Gender Identity Not on file Sexual Orientation Not on file documented as of this encounter Plan of Treatment Not on file documented as of this encounter Visit Diagnoses Diagnosis Surgical or other procedure not carried out because of patient's decision- Primary documented in this encounter Additional Health Concerns Infection Onset Date Last Indicated Resolved Time R/O COVID-19 07/02/2020 07/02/2020 07/02/2020 8:53 PM AQUACULTURE FARMER MRSA Comment:Resolved per Type and Duration of Precautions Recommended for Selected Infections and Conditions document 2023 update 07/02/2020 07/02/2020 03/16/20 24 10:58 AM CDT R/O COVID-19 07/10/2020 07/10/2020 07/10/2020 5:01 PM AQUACULTURE FARMER documented as of this encounter Care Teams Research Assoc Relationship Specialty Start Date End Date Fiordaliza Snell MD PCP - General Family Practice 09/09/22 documented as of this encounter
--- OUTSIDE RECORDS SUMMARY | 2024-12-13 12:49 | XMS_ITS | Encounter Summary ---
Author Organization [facility] Address [address] [place] [address] Care Team Providers Care Inpatient Auditor Name Role Phone Frazier Shilpatemo Law DO Primary Care Provider Lidia Barajas MD Unavailable Ab Melara MD Primary Care Provid er Encounter Details Date Type Department Care Team (Late st Contact Info) Description 03/19/2019 Telephone [facility] - Interventional Radiology [address] [place] [address] Nhung French RN Social History [...] on file Legal Sex Female 11:49 PM TOOL MECHANIC Gender Identity Not on file Sexual [...] DT MRSA 12/27/2021 03/06/2022 09/02/2022 3:05 AM TOOL MECHANIC documented as of this encounter Care Teams Inpatient Auditor Relationship Specialty Start Date End Date Shilpa Frazier DO PCP - General 06/12/18 07/15/21 Ab Melara MD [address] [address] PCP - General Family Medicine 07/16/21 Lidia Barajas MD Anesthesiologist Anesthesiology 01/13/20 documented as of this encounter
--- OUTSIDE RECORDS SUMMARY | 2024-12-13 12:49 | XMS_ITS | Patient Health Record ---
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 Problem Lumbosacral radiculopathy (6295981) Radiculopathy, lumbosacral region (M54.17) Active confirmed Plan Of Treatment No Information Insurance Providers Payer Name Payer Address Payer Phone Subscriber Number Group Number Insured Name Patient Relationship to Insured Coverage Start Date Coverage End Date [facility] [address] [place] [address] [id number] Angelina Mcnulty Self - patient is the insured Medical (General) History Medical History History ICD Code HBP heart attack osteoarthritis fibromyalgia urinary incontinence headaches migraines stroke nerve damage IBS asthma chronic bronchitis pneumonia depression anxiety Surgical History Surgery Date(Month/Year) spine fusion & stimulator 2004 spine fusion 2006 spine fusion 2021
--- OUTSIDE RECORDS SUMMARY | 2024-12-13 12:49 | XMS_ITS | Encounter Summary ---
Author Organization [facility] Address [address] [place] [address] Care Team Providers Care Keeper Helper Name Role Phone Fiordaliza Snell MD [...] on file Legal Sex Female 2:43 AM ADULT NEUROPSYCHOLOGIST Gender Identity Not on file Sexual Orientation Not on file documented as of this encounter Plan of Treatment Not on file documented as of this encounter Visit Diagnoses Diagnosis Metrorrhagia- Primary documented in this encounter Additional Health Concerns Infection Onset Date Last Indicated Resolved Time R/O COVID-19 07/02/2020 07/02/2020 07/02/2020 8:53 PM ADULT NEUROPSYCHOLOGIST MRSA Comment:Resolved per Type and Duration of Precautions Recommended for Selected Infections and Conditions document 2023 update 07/02/2020 07/02/2020 03/16/20 24 10:58 AM CDT R/O COVID-19 07/10/2020 07/10/2020 07/10/2020 5:01 PM ADULT NEUROPSYCHOLOGIST documented as of this encounter Care Teams Keeper Helper Relationship Specialty Start Date End Date Fiordaliza Snell MD PCP - General Family Practice 09/09/22 documented as of this encounter
--- OUTSIDE RECORDS SUMMARY | 2024-12-13 12:49 | XMS_ITS | Encounter Summary ---
Author Organization [facility] Address [address] [place] [address] Care Team Providers Care Tag Marker Name Role Phone Fiordaliza Snell MD Primary [...] on file Legal Sex Female 2:43 AM SODA DISPENSER Gender Identity Not on file Sexual Orientation Not on file documented as of this encounter Plan of Treatment Not on file documented as of this encounter Visit Diagnoses Diagnosis Pelvic peritoneal adhesions, female (postoperative) (postinfection)- Primary documented in this encounter Additional Health Concerns Infection Onset Date Last Indicated Resolved Time R/O COVID-19 07/02/2020 07/02/2020 07/02/2020 8:53 PM SODA DISPENSER MRSA Comment:Resolved per Type and Duration of Precautions Recommended for Selected Infections and Conditions document 2023 update 07/02/2020 07/02/2020 03/16/20 24 10:58 AM CDT R/O COVID-19 07/10/2020 07/10/2020 07/10/2020 5:01 PM SODA DISPENSER documented as of this encounter Care Teams Tag Marker Relationship Specialty Start Date End Date Fiordaliza Snell MD PCP - General Family Practice 09/09/22 documented as of this encounter
--- OUTSIDE RECORDS SUMMARY | 2024-12-13 12:49 | XMS_ITS | Clinical Summary ---
Author Organization [facility] Address [address] [facility] [place] [address] Care Team Providers Care Rn Obgyn Name Role Phone Lidia Barajas MD Unavailable Sihlpa Gandhi MD Unavailable Iron Galindo PA-C Primary Care Provide r Cresencio Ghosh MD Unavailable [phone] Cresencio Ghosh MD Unavailable Source Comments [facility],non-owned Affiliates and Associated Physician Practices is amultiple site organization consisting of ambulatory clinics and hospital sitesin [place], [place], [place] and [place]. This disclosure is being madepursuant to the Care Everywhere program and may not contain all information available regarding this patient. Last updated 18.[facility] Allergies Active Allergy Reactions Criticality [...] (spasms) 90 tablet 2 3 Active Nystop 783959 UNIT/GM powder Apply to affected area 2 [...] Description 09/30/2024 8:15 AM CDT Video Visit [facility] [address] [place] [address] Cresencio Ghosh MD YAJAIRA on CPAP ; PLMD (periodic limb movement disorder); Restless legs syndrome (RLS); Malaise and fatigue; Hypertension, unspecified type; Insomnia due to medical condition; Circadian rhythm sleep disorder, irregular sleep wake type 09/29/2024 Refill [facility] [address] [place] [address] Cresencio Ghosh MD Refill Request from Last [...] care, and heating? Not very hard 04/02/2023 [facility] Occupat ional Health - Occupational Stress [...] on file Legal Sex Female 6:02 AM TROLLEY CLEANER Gender Identity Not on file Sexual Orientation Not on file Occupation Industry Job Start Date Job End Date Disabled Not on file Not on file Not on file Last Filed Vital Signs Vital Sign Reading Time Taken Comments Blood Pressure 157/91 05/07/2023 9:23 AM TROLLEY CLEANER Pulse 86 05/07/2023 9:23 AM TROLLEY CLEANER Temperature 36.3 C (97.3 F) 05/07/2023 9:23 AM TROLLEY CLEANER Respiratory Rate 18 04/02/2023 3:00 PM CDT Oxygen Saturation 95% 05/07/2023 9:23 AM TROLLEY CLEANER Inhaled Oxygen Concentration 97% 02/21/2021 1 0:15 [...] < 140/90 Blood Pressure 157/91(2022 9:23 AM TROLLEY CLEANER) No Sierra Steiner Yearly PCP visit Lifestyle No White, Ava A Have labs drawn Lifestyle No White, Ava A Take recommended medication(s) Lifestyle No White, Ava A Use safety retraint in car Lifestyle No White, Ava A Complete Health Maintenance Screenings Lifestyle No White, Ava A Medical Devices Implanted Type Area Accounting Clerk Device Identifier Shelf Expiration Date Model / Serial / Lot Nevro Neurostimulator Senza [id number] (Implanted 2016) Floseal Hemostatic Matrix Implanted:Qty: 1 on 04/02/2019 by Maicol Mcneil DO at [facility] N/A: Spine [employer] 08/10/2020 [id number] / / [id number] Graft Tissue Drgn + Bvn Clgn Mtrx 1x1in Implanted:Qty: 1 on 04/02/2019 by Maicol Mcneil DO at [facility] N/A: Spine Integra [employer]iences 04/29/2021 [id number] / / [id number] Seal Tisseel Prima 1 Prefil Frz 4ml - [id number] Implanted:Qty: 1 on 04/02/2019 by Maicol Mcneil DO at [facility] N/A: Spine [employer] 08/27/2020 [id number] / [id number] / [id number] Impl Inj 1ml Coaptite Syr Bulk Agnt Implanted:Qty: 2 on 04/11/2020 by Dave Aparicio MD at [facility] N/A: Bladder [employer] 10/25/2022 [id number] / / [id number] Impl Inj 1ml Coaptite Syr Bulk Agnt Implanted:Qty: 2 on 02/05/2022 by Dave Aparicio MD at [facility] Bladder [employer] 10/16/2024 [id number] / / [id number] Stent Uret 7fr 80cm Str Cls Tip Llok Implanted:Qty: 1 on 09/03/2022 by Nel Cerna DO at [facility] Ureter [employer] 12/23/2025 [id number] / / [id number] Description:bilateral ureter s Procedures Procedure Name Priority [...] 7 - 26 mg/dL 04/02/2023 3:07 AM [facility] Creatinine 0.69 0.56 - 0.96 mg/dL 04/02/2023 3:07 AM [facility] Sodium 133(L) 136 - 145 mmol/L 04/02/2023 3:07 AM [facility] Potassium 3.9 3.5 - 4.5 mmol/L 04/02/2023 3:07 AM [facility] Chloride 102 98 - 107 mmol/L 04/02/2023 3:07 AM [facility] CO2 26 22 - 29 [...] MD LAB - CHEMISTRY ORDERABLES Final Result [facility] [address] [place] [address], [facility] [phone] * ENDOSCOPY, COLON, SCREENING (11/29/2019) us Provider [...] patient. [facility] Breast Care utilizes EPIC as a reminder system to notify patients of their next recommended mammogram. Narrative 09/23/2017 9:22 AM CDT EXAMINATION: Digital screening mammogram on 09/18/2017. Low-dose full-field digital breast tomosynthesis examination was performed with synthetic 2D images and 3D acquisitions. Computer assisted detection was utilized. PRIOR: Mammogram from [facility] on 11/13/2004. BREAST PARENCHYMAL DENSITY: The breasts are almost entirely fatty. RISK ASSESSMENT CALCULATION: Based on the information provided by your patient, her lifetime risk of breast cancer is average (<15%). Additional quantitative risk model data and patient history details have been scanned as a document/letter in [facility] electronic medical record (media tab). Please note [...] 04/01/2023 04/01/2023 MDRO 05/08/2023 05/08/2023 Insurance [employer]ET[employer] [facility] MANAGED MEDICARE ADV [facility] MANAGED MEDICARE ADV [place] [id number] Advance Directives Documents on File Type Date Recorded Patient Procurement Professional Logistics Expl anation Adv Directive/Living Will/POA 09/16/2022 3:23 [...] 4:01 AM 05/11/2020 8:00 PM Care Teams Rn Obgyn Relationship Specialty Start Date End Date Iron Galindo PA-C [address] [place] [address] PCP - General Physician Pressure Vessel Inspector 02/12/23 Cresencio Ghosh MD [address] [facility] [address] [place] [phone] PCP - Attributed-[facility] NIKKI STL P4P 5/1/25 Lidia Barajas MD [address] [place], [address] Anesthesiology-Pain Management 06/03/19 Shilpa Gandhi MD [address] [place] [id number] Oncology 06/03/19 Cresencio Ghosh MD [address] [address] [place] [id number] Internal Medicine Sleep Medicine 09/29/24
--- OUTSIDE RECORDS SUMMARY | 2024-12-13 12:49 | XMS_ITS | Referral Summary ---
Author Organization [facility] Address [address] [place] [address] Care Team Providers Care English Language Learner Tutor Name Role Phone Lidia Barajas MD Unavailable [...] for pain 42 tablet 2 Active multivit zzscaqtt-sfvy-SP-c alcium (THERA-M) 9 mg iron-400 mcg tabletIndications: [...] (10/24/2021): Added automatically from request for surgery [id number] Postlaminectomy syndrome, lumbar region 10/25/19 Overview (10/24/2021): Added automatically from request for surgery [id number] Assessment & Plan (07/03/2022 3:48 PM RAPID OUTSOLE STITCHER): Ms. Mcnulty is doing well following lumbar [...] (10/24/2021): Added automatically from request for surgery [id number] Other chest pain 01/19/2020 Assessment & Plan [...] for exchange this admission Suprapubic catheter ([facility]) 11/16/2019 Essential hypertension 11/16/2019 Hypertensive urgency 11/16/2019 [...] (11/25/2019): Added automatically from request for surgery [id number] Chronic lumbar radiculopathy 01/21/2019 Chronic back pain 01/21/2019 Spinal stenosis of lumbar region with radiculopa thy 12/04/2018 Assessment & Plan (07/18/2021 10:23 AM RAPID OUTSOLE STITCHER): Assessment Healed fusion L2-5 severe retrolisthesis with [...] (06/18/2018): Added automatically from request for surgery [id number] Assessment & Plan (12/04/2018 3:42 PM CDT): Healing fusion C6-7 Continued observation. Assessment & Plan (08/12/2018 10:35 AM RAPID OUTSOLE STITCHER): Assessment Healing fusion C6-7 Plan Talked about do's and don'ts she is still to maintain her initial restrictions and return in 6 weeks for an x-ray Assessment & Plan (06/25/2018 2:43 PM RAPID OUTSOLE STITCHER): Angelina was recently hospitalized at [facility] and diagnosed with a disc osteophyte [...] (06/18/2018): Added automatically from request for surgery [id number] Cervical pain (neck) 06/13/2018 Asthma 11/13/2013 Overview [...] often do you attend chur ch or holiness services? More than 4 times per year [...] [place] [facility] [place] (including [place])? No 03/07/2022 Comments No Sex and Gender Information Value Date Recorded Sex Assigned at Not on file Legal Sex Female 11:49 PM RAPID OUTSOLE STITCHER Gender Identity Not on file Sexual Orientation [...] Plan Chronic Care Management Worsening( 10:12 AM RAPID OUTSOLE STITCHER) Milvia Mireles RN Note: Problem: Chronic Pain Goals: 1. Minimize further functional decline 2. Maximize quality of life 3. Control pain Strategies: - Activity/exercise program recommendation - Conservative stepwise pain medicine strategy with multi-disciplinary approach - Recommend healthy lifestyle strategies and compensatory methods as needed Medical Devices Implanted Type Area [employer] Cord Device Identifier Shelf Expiration Date Model / Serial / Lot Spinal Cord Stimulator-2016 Implanted:01/28 (Quantity not on file) Spinal Cord Stimulator Left: Hip Nevro Spinal Cord Stimulation System [id number] / / Description:Closed Bore only 1.5T or [...] ensure it has returned to pre-MRI settings. [employer] 700-025 I Factor Allograft Putty Syringe Graft 2.5cc Bone - [id number] Implanted:Qty: 1 on 07/03/2018 by Zachary Rothman MD at [facility] N/A: Spine Cervical [employer] Inc 03/29/2021 700-025 / / [id number] Plate 1-Level 14 Mm Cervical - [id number] Implanted:Qty: 1 on 07/03/2018 by Zachary Rothman MD at [facility] N/A: Spine Cervical [employer] 30-0114 / / Screw 4.0x14mm Self Drilling Variable - [id number] Implanted:Qty: 4 on 07/03/2018 by Zachary Rothman MD at [facility] N/A: Spine Cervical [employer] [id number] / / Cage Spinal [id number] 7 Degree Porous Coated Latex Free - [id number] Implanted:Qty: 1 on 07/03/2018 by Zachary Rothman MD at [facility] N/A: Spine Cervical Spinal Elements [id number] / / Depuy Synthes Spine [id number] Substitute Bone Graft Fibergraft Gps Medium Putty 6cc - [id number] Implanted:Qty: 1 on 11/29/2021 by Dave Louis MD at [facility] N/A: Lumbar-Sa cral Spine Depuy Synthes Spine [id number] 10/18/2023 [id number] / / [id number] B[employer] International Inc Osteosponge Allograft Chips Radiolucent Thk4-10mm Graft 30cc Bone [id number] - [id number] - [id number] Implanted:Qty: 1 on 11/29/2021 by Dave Louis MD at [facility] N/A: Lumbar-Sa cral Spine [employer] Inc 10/14/2024 [id number] / [id number] / Depuy Synthes Spine Cage Post Spinal 4d Plif Ti [id number] - [id number] Implanted:Qty: 1 on 11/29/2021 by Dave Louis MD at [facility] N/A: Lumbar-Sa cral Spine Depuy Synthes Spine [id number] 07/30/2024 [id number] / / [id number] Depuy Synthes Spine Expedium 5.5mm 80mm Line Prebent Rodney Spinal Titanium Nonsterile [id number] - [id number] Implanted:Qty: 1 on 11/29/2021 by Dave Louis MD at [facility] N/A: Lumbar-Sa cral Spine Depuy Synthes Spine [id number] / / Depuy Synthes Spine Expedium 5.5mm 85mm Line Prebent Rodney Spinal Titanium Nonsterile [id number] - [id number] Implanted:Qty: 1 on 11/29/2021 by Dave Louis MD at [facility] N/A: Lumbar-Sa cral Spine Depuy Synthes Spine [id number] / / Depuy Synthes Spine Expedium 5.5mm 45mm Polyaxial Spine Screw Bone Titanium 5.5mm Rodney [id number] - [id number] Implanted:Qty: 2 on 11/29/2021 by Dave Louis MD at [facility] N/A: Lumbar-Sa cral Spine Depuy Synthes Spine [id number] / / Depuy Synthes Spine Expedium 6.5mm 45mm Polyaxial Spine Screw Bone Titanium 5.5mm Rodney [id number] - [id number] Implanted:Qty: 3 on 11/29/2021 by Dave Louis MD at [facility] N/A: Lumbar-Sa cral Spine Depuy Synthes Spine [id number] / / Depuy Synthes Spine Expedium 1 Inner Monoaxial Spine Screw Set Titanium [id number] - [id number] Implanted:Qty: 6 on 11/29/2021 by Dave Louis MD at [facility] N/A: Lumbar-Sa cral Spine Depuy Synthes Spine [id number] / / Depuy Synthes Spine Expedium 7mm 45mm 1 Innie Polyaxial Spine Screw Bone Titanium [id number] - [id number] Implanted:Qty: 1 on 11/29/2021 by Dave Louis MD at [facility] N/A: Lumbar-Sa cral Spine Depuy Synthes Spine [id number] / / Procedures Procedure Name Priority Date/Time [...] 11/29/2019 8:04 AM Admit Type: Inpatient Room: [facility] 4 Date of : 1965 Instrument [...] the bowel preparation was evaluated usingthe BBPS ([place] Bowel Preparation Scale) with scores of: Right [...] AM CDT) Hep A IgM Nonreactive Nonreactive [facility] Comment: Interpretive Data: If Hep A IgM Ab is reported as Equivocal, a new sample should be drawn in two weeks for testing. Current interpretive data was last revised on 19. Hep B core IgM Nonreactive Nonreactive [facility] Comment: Interpretive Data If HepB Core IgM Ab is reported as Equivocal, a new sample should be drawn in two weeks for testing. Current interpretive data was last revised on 19. Hep C Ab Nonreactive Nonreactive [facility] Comment: Interpretive Data Nonreactive: Antibodies to [...] last revised on 2019. HepBsAg Nonreactive Nonreactive [facility] Blood specimen (specimen) 11/17/2019 4:13 AM CDT 11/17/2019 4:31 AM CDT [facility] MICROBIOLOGY - GENERAL ORDERABLES Final Result [facility] Zahraa Joshi Seth Department [place] [address] from Last 3 Months or Most Recently Relevant to Health Maintenance Insurance [employer] MEDICARE ADVANTAGE [facility] [place] [address] [facility] MEDICARE [facility] MEDICARE ADVANTAGE Advance Directives For more information, please contact: [phone] Documents on File Type Date Recorded Patient Wet End Tester Expl anation Power of Tool Grinder Set Up Operator Gear 11/29/2021 11:46 AM * Full Code (Latest [...] First Alternate Health Care Agent Care Teams English Language Learner Tutor Relationship Specialty Start Date End Date Devabhaktuni, Ramadevi R., MD [address] [address] PCP - General Family Medicine 07/16/21 Lidia Barajas MD Anesthesiologist Anesthesiology 01/13/20
--- OUTSIDE RECORDS SUMMARY | 2024-12-13 12:49 | XMS_ITS | Encounter Summary ---
Author Organization [facility] Healthcare Address [address] [place] [address] Care Team Providers Care Frame Assembler Name Role Phone Shilpa Frazier DO Primary Care Provider Lidia Barajas MD Unavailable Ab Melara MD Primary Care Provid er Encounter Details Date Type Department Care Team (Late st Contact Info) Description 04/24/[address] [facility] [address] [facility] [address] [place] [address] Tori Arias RN Social History [...] on file Legal Sex Female 11:49 PM DONATION SPECIALIST Gender Identity Not on file Sexual [...] DT MRSA 12/27/2021 03/06/2022 09/02/2022 3:05 AM DONATION SPECIALIST documented as of this encounter Care Teams Frame Assembler Relationship Specialty Start Date End Date Shilpa Frazier DO PCP - General 06/12/18 07/15/21 Ab Melara MD [address] [address] PCP - General Family Medicine 07/16/21 Lidia Barajas MD Anesthesiologist Anesthesiology 01/13/20 documented as of this encounter
[2024-12-13] MEDS: HYDROmorphone HCL INJ (*CRX) 2 MG/ML VIAL 0.5 MG IV PUSH ×2 (12:50→13:57)
--- OUTSIDE RECORDS SUMMARY | 2024-12-13 12:50 | XMS_ITS | Encounter Summary ---
Author Organization [facility] Address [address] [place] [address] Care Team Providers Care Gumming Machine Operator Name Role Phone Fiordaliza Snell [...] on file Legal Sex Female 2:43 AM AS400 ANALYST Gender Identity Not on file Sexual Orientation Not on file documented as of this encounter Plan of Treatment Not on file documented as of this encounter Visit Diagnoses Diagnosis Closed fracture of lateral malleolus- Primary documented in this encounter Additional Health Concerns Infection Onset Date Last Indicated Resolved Time R/O COVID-19 07/02/2020 07/02/2020 07/02/2020 8:53 PM AS400 ANALYST MRSA Comment:Resolved per Type and Duration of Precautions Recommended for Selected Infections and Conditions document 2023 update 07/02/2020 07/02/2020 03/16/20 24 10:58 AM CDT R/O COVID-19 07/10/2020 07/10/2020 07/10/2020 5:01 PM AS400 ANALYST documented as of this encounter Care Teams Gumming Machine Operator Relationship Specialty Start Date End Date Fiordaliza Snell MD PCP - General Family Practice 09/09/22 documented as of this encounter
--- OUTSIDE RECORDS SUMMARY | 2024-12-13 12:50 | XMS_ITS | Encounter Summary ---
Author Organization [facility] Address [address] [place] [address] Care Team Providers Care Powder Room Attendant Name Role Phone Fiordaliza Snell MD [...] on file Legal Sex Female 2:43 AM SNOW REMOVING SUPERVISOR Gender Identity Not on file Sexual Orientation Not on file documented as of this encounter Plan of Treatment Not on file documented as of this encounter Visit Diagnoses Diagnosis Excessive or frequent menstruation- Primary documented in this encounter Additional Health Concerns Infection Onset Date Last Indicated Resolved Time R/O COVID-19 07/02/2020 07/02/2020 07/02/2020 8:53 PM SNOW REMOVING SUPERVISOR MRSA Comment:Resolved per Type and Duration of Precautions Recommended for Selected Infections and Conditions document 2023 update 07/02/2020 07/02/2020 03/16/20 24 10:58 AM CDT R/O COVID-19 07/10/2020 07/10/2020 07/10/2020 5:01 PM SNOW REMOVING SUPERVISOR documented as of this encounter Care Teams Powder Room Attendant Relationship Specialty Start Date End Date Fiordaliza Snell MD PCP - General Family Practice 09/09/22 documented as of this encounter
--- OUTSIDE RECORDS SUMMARY | 2024-12-13 12:50 | XMS_ITS | Encounter Summary ---
Author Organization [facility] Healthcare Address [address] [place] [address] Care Team Providers Care Surgeon'S Assistant Name Role Phone Shilpa Fraziermeera PEREZ Primary Care Provider Lidia Barajas MD Unavailable Ab Melara MD Primary Care Provid er Reason for Visit * Reason Onset Date Comments PRECALL ANTICOAG 02/18/2020 Encounter Details Date Type Department Care Team (Late st Contact Info) Description 02/18/2020 Telephone [facility] [address] [facility] 1st [place] [address] Tori Arias RN PRECALL ANTICOAG [...] file Legal Sex Female 11:49 PM SHAREPOINT ENGINEER Gender Identity Not on file Sexual [...] MRSA 12/27/2021 03/06/2022 09/02/2022 3:05 AM SHAREPOINT ENGINEER documented as of this encounter Care Teams Surgeon'S Assistant Relationship Specialty Start Date End Date Shilpa Frazier DO PCP - General 06/12/18 07/15/21 Ab Melara MD [id number] [address] PCP - General Family Medicine 07/16/21 Lidia Barajas MD Anesthesiologist Anesthesiology 01/13/20 documented as of this encounter
--- OUTSIDE RECORDS SUMMARY | 2024-12-13 12:50 | XMS_ITS | Encounter Summary ---
Author Organization [facility] Address [address] [place] [address] Care Team Providers Care Data Entry Coordinator Name Role Phone Fiordaliza Snell MD [...] on file Legal Sex Female 2:43 AM FREELANCE DATA ENTRY Gender Identity Not on file Sexual Orientation Not on file documented as of this encounter Plan of Treatment Not on file documented as of this encounter Visit Diagnoses Diagnosis Lumbago- Primary documented in this encounter Additional Health Concerns Infection Onset Date Last Indicated Resolved Time R/O COVID-19 07/02/2020 07/02/2020 07/02/2020 8:53 PM FREELANCE DATA ENTRY MRSA Comment:Resolved per Type and Duration of Precautions Recommended for Selected Infections and Conditions document 2023 update 07/02/2020 07/02/2020 03/16/20 24 10:58 AM CDT R/O COVID-19 07/10/2020 07/10/2020 07/10/2020 5:01 PM FREELANCE DATA ENTRY documented as of this encounter Care Teams Data Entry Coordinator Relationship Specialty Start Date End Date Fiordaliza Snell MD PCP - General Family Practice 09/09/22 documented as of this encounter
--- OUTSIDE RECORDS SUMMARY | 2024-12-13 12:50 | XMS_ITS | Encounter Summary ---
Author Organization [facility] Address [address] [place] [address] Care Team Providers Care Truck Crane Operator Helper Name Role Phone Fiordaliza Snell [...] on file Legal Sex Female 2:43 AM NURSING INFORMATICS ANALYST Gender Identity Not on file Sexual Orientation Not on file documented as of this encounter Plan of Treatment Not on file documented as of this encounter Visit Diagnoses Diagnosis Abdominal pain, unspecified site- Primary documented in this encounter Additional Health Concerns Infection Onset Date Last Indicated Resolved Time R/O COVID-19 07/02/2020 07/02/2020 07/02/2020 8:53 PM NURSING INFORMATICS ANALYST MRSA Comment:Resolved per Type and Duration of Precautions Recommended for Selected Infections and Conditions document 2023 update 07/02/2020 07/02/2020 03/16/20 24 10:58 AM CDT R/O COVID-19 07/10/2020 07/10/2020 07/10/2020 5:01 PM NURSING INFORMATICS ANALYST documented as of this encounter Care Teams Truck Crane Operator Helper Relationship Specialty Start Date End Date Fiordaliza Snell MD PCP - General Family Practice 09/09/22 documented as of this encounter
--- OUTSIDE RECORDS SUMMARY | 2024-12-13 13:08 | XMS_ITS | Continuity of Care Document ---
Author Organization [facility] Address [address] [place] [address] Phone Care Team Providers Care Automobile Brake Bonder Name Role Phone Jon Rodriguez MD Unavailable Unavailable Advance Directives Directive Yes / No Effective Date File Name No Information Encounters Encounter Description Practice Location Reason(s) For Visit Diagnoses Date Provider Providers Copied on Encounter [facility], [facility], [place], [place], [id number], tel:[phone] [facility] LUMBAGO 0 Michael Webb. [address] [place] [address], [id number], . tel:[phone] [facility], [facility], [place], [place], [id number], tel:[phone] [facility] LUMBOSACRAL NEURITIS NOS 0 Ranjith Salazar. [address] [place] [address], [id number], . tel:[phone] [facility], [place], [place], [id number], tel:[phone] [facility] SPINAL STENOSIS-LUMBA R 8 No Information [facility], [place], [place], [id number], tel:[phone] [facility] JOINT DIS NEC-PELVIS [address] [facility] [address] [place] [address], [id number], tel:[phone] [facility] [place] (Ip) ARTHRODESIS STATUS 7 Michael Webb. [address] [place], [place], [id number], [place]. tel:[phone] [facility], [address] [facility], [place], [place], [id number], [place] tel:[phone] [facility] [place] (Ip) LUMBAR DISC DISPLACEMENT [address] [facility], [place], [place], [id number], [place]. tel:[phone] [facility], [facility], [place], [place], [address], [place] tel:[phone] [facility] [place] (Op) PREOP RESPIRATORY EXAM 7 No Information [facility], [facility], [place], [place], [id number], [place] tel:[phone] [facility] [place] (Op) PAIN IN LIMB 7 Michael Webb. [address] [place] [address], [place], [place], [id number], [place]. tel:[phone] [facility], [facility], [place], [place], [address], [place] tel:[phone] [facility] CERVICALGIA 6 Juliann Gibson. [address], [place], [place], [id number], [place]. tel:[phone] [facility], [address] [place] [address], [id number], [place] tel:[phone] [facility] OTH ADV EFF MED/BIO SUB 6 No Information [facility], [facility], [place], [place], [id number], [place] tel:[phone] [facility] [place] (Er) FALL NOS 2200 6 Monica Tapia. [address], [place], [place], [address]. tel:[phone] [employer], [facility], [place], [place], [address], [place] tel:[phone] [facility] [place] (Op) HEADACHE 5200 6 Ranjith Salazar. [address], [place], [place], [address], [place]. tel:[phone] [employer], [address] [facility], [place], [place], [address], tel:[phone] [facility] [place] (Op) HEAD INJURY NOS 6 Michael Castellano [address] [place], [place], [id number], . tel:[phone] [employer], [address] [facility], [place], [place], [address], tel:[phone] [facility] [place] (Er) CERVICAL SPINAL STENOSIS 6 Juliann Sauceda [address] [place] [address], [id number], . tel:[phone] [employer], [facility], [place], [place], [address], tel:[phone] [facility] [place] (Er) BRACHIAL NEURITIS NOS 6 Juliann Sauceda [address] [place] [address], [id number], . tel:[phone] [employer], [facility], [place], [place], [address], tel:[phone] [facility] [place] (Ip) FOLLOW-UP SURGERY NOS 4 Michael Castellano [address] [place], [place], [id number], . tel:[phone] [employer], [facility], [place], [place], [address], tel:[phone] [facility] [place] (Op) COUGH 4 No Information Family History [...]
--- OUTSIDE RECORDS SUMMARY | 2024-12-13 13:09 | XMS_ITS | Continuity of Care Document ---
Author Organization [facility] Address [address] [place] [address] Phone Care Team Providers Care Siebel Crm Developer Name Role Phone Klaus ATKINSON MD, Denys [...] tient visit,est, mod [facility], [address], [place], [place], [id number], [place] tel:[phone] [facility] r knee (chief complaint) Pain in right knee 4 Klaus Mcfarlane. [address] [place] [address], [place], [place], [id number], [place]. tel:[phone] Referring Provider: Martin Medina, [address] [place] [address] Suite [facility], [place], [address]. tel:[phone] [facility], [address] [place] [address], [id number], [place] tel:[phone] [facility] Pain in left shoulder 2 Klaus Mcfarlane. [address] [place] [address], [place], [place], [id number], [place]. tel:[phone] [facility]pa [facility], [address] [place] [address], [id number], [place] tel:[phone] [facility] fell Out Of Wheelchair And Shived Both Shoulders (chief complaint) Pain in left shoulderPain in right shoulder 2 Klaus Mcfarlane. [address] [place] [address], [place], [place], [id number], [place]. tel:[phone] Referring Provider: Martin Medina, [address] [place] [address] Suite [facility], [place], [address]. tel:[phone] [facility]pa [facility]ient [facility], [address] [place] [address], [id number], [place] tel:[phone] [facility] No Information Sep-2 0 No Information Referring Provider: Martin Medina, [address] [place] [address] Suite [facility], [place], [address]. tel:[phone] Family History Family Member Type Diagnosis Age At Onset Mother Problem (finding) Heart Disease Brother Problem (finding) Depression Mother Problem (finding) Cancer, unknown Mother Problem (finding) Depression Brother Problem (finding) Hypertension Father Problem (finding) Cancer, unknown Mother Problem (finding) Hypertension Father Problem (finding) Hypertension Father Problem (finding) Depression Payers Payer name Insurance type Covered green [...]
--- OUTSIDE RECORDS SUMMARY | 2024-12-13 13:09 | XMS_ITS | Continuity of Care Document ---
Author Organization [facility] Address [address] [place] [address] Phone Care Team Providers Care Dental Service Technician Name Role Phone Shreyas Dumont MD Unavailable Unavailable Allergies, Adverse Reactions, Alerts Substance Reaction Status Criticality Sulfa (Sulfonamide Antibiotics) Hives Active No Information Penicillins Hives Active No Information TAPE, OCCLUSIVE ADHESIVE Active No Information Penicillins Unknown Active No Information Medications Medication Instructions Dosage Effective Dates (start - stop) Status Comments Quapaw 5 mg-325 mg tablet take 1-2 tabs [...] 2015 OFFICE/OUTPATIENT VISIT EST OFFICE/OUTPATIENT VISIT [facility] Advance Directives Directive Yes / No Effective Date File Name No Information Encounters Encounter Description Practice Location Reason(s) For Visit Diagnoses Date Provider Providers Copied on Encounter [facility], [address], [place], [address], [place] [phone] [facility] [place] Ulnar neuropathy at elbow, leftPostopera tive visit 0 7 Tim Pritchett. [address], [place], [place], [id number] . tel: [phone] [facility], [address] [address], [place], [address], [place] tel:[phone] [facility] Ulnar neuropathy at elbow, left 8 7 Paul Handley. [address], [place], [place], [id number] . tel: [phone] [facility], [address] [address], [place], [address], [place] [phone] [facility] Numbness of left hand 7- 7 Tim Pritchett. [address], [place], [place], [id number] . tel: [phone] [facility], [address] [address], [place], [address], [place] [phone] [facility] [place] Postoperative visit 6 Tim Pritchtet. [address], [place], [place], [id number] . tel: [phone] [facility], [address] [facility], [place], [address], [place] tel:[phone] [facility] Ulnar neuropathy at elbow, left 6 Tim Pritchett. [address], [place], [place], [id number] . tel: [phone] OFFICE/OUTPA TIENT VISIT EST [facility], [address], [place], [address], [place] tel:[phone] [facility] [place] Pain in left elbowUlnar neuropathy at elbow, left 6 Tim Pritchett. [address], [place], [place], [id number] . tel: [phone] OFFICE/OUTPA TIENT VISIT EST [facility], [address], [place], [address], [place] [phone] [facility] [place] Pain in left elbowUlnar neuritis, left 6 Tim Pritchett. [address], [place], [place], [address] . tel: [phone] Referring Provider: [facility]igue Caruso [facility] [address] [address], [place], [address]. [phone] OFFICE/OUTPA TIENT VISIT [facility], [address], [place], [address], [place] [phone] [facility] evnd left thumb/hand (chief complaint) Primary osteoarthriti s of first carpometacarp al joint of left handDe Quervain's tenosynovitis 6 Ciera Brice. [address] [place], [place], [id number] . tel: [phone] Family History Family Member Type Diagnosis Age [...]
[2024-12-13 14:08] LABS: Add Urine Microscopic? YES; Appearance Urine Cloudy (Clear); Bacteria Urine 4+ /hpf; Bilirubin Urine Negative (Negative); Blood Urine 1+ (Negative); Color Urine Yellow (Yellow); Glucose Urine UA Negative (Negative); Ketones Urine Negative (Negative); Leukocyte Esterase Ur 3+ LEU/UL (Negative); Nitrate Urine Positive (Negative); Protein Urine Trace mg/dL (Negative); Specific Grav Ur 1.018 (1.001-1.035); Squamous Epithelial Cell Urine Few /hpf (Few); WBC Urine 51-100 /hpf (0-3); pH Urine 6.5 (5.0-9.0)
--- NOTE | 2024-12-13 15:35 | PC.NURSE ---
Approx 800 ml soap suds enema given. Unable to advance enema tube very far into colon due to hard stool. Tolerated well with return of minimal amount small hard pieces of stool.
[2024-12-13] MEDS: KETOROLAC 15 MG/ML VIAL (*BKC) IV PUSH (15:47)
[2024-12-13] MEDS: SODIUM CHLORIDE 0.9% IV 1,000 ML 999 ML IV CONT (15:47)
[2024-12-13] MEDS: levoFLOXacin 750 MG/D5W 150 ML 750 MG/150 ML BAG 100 MG IVPB ×2 (15:51→17:47)
--- NOTE | 2024-12-13 16:54 | ADMGEN ---
This patient, Angelina Mcnulty, was admitted to Medical Room 340-01. Patient/family oriented to hospital policies and general routines including ID bracelet, bed and alarms, visiting hours, pain management, procedures, bathroom and other care routines, personal items, smoking policy, room service/diet, and visiting hours. Information on how to activate the Rapid Response Team has been discussed. Patient/Family are encouraged to report perceived risks to care and to ask questions if they do not understand what they are told or what they should do.
[2024-12-13] MEDS: LACTATED RINGERS 1,000 ML 125 ML IV CONT (17:43)
[2024-12-13] MEDS: ACETAMINOPHEN 325 MG TABLET 650 MG PO (20:52)
--- NOTE | 2024-12-13 20:55 | PM.IMHP ---
H&P: HPI History of Present Illness Date/Time: 12/13/24 20:55 Chief Complaint: Left-sided abdominal pain. Narrative: This is a 59-year-old female who is wheelchair-bound due to incomplete paraplegia with history of fecal impaction, irritable bowel, gastroesophageal reflux disease, hypertension, dyslipidemia, stroke, obstructive sleep apnea, depression, and anxiety who presented to the emergency department via private vehicle with complaints of left-sided abdominal pain. She has not had a decent bowel movement for about 11 days and she has tried olda-doo-wrnwoha medications without success. She presents today with increasing left-sided abdominal cramping which has become quite intense. She does take narcotics for chronic pain and she takes senna/docusate sodium as needed but has fallen out of the habit of taking MiraLax daily. She denies fever, vomiting, low back pain, and generalized malaise. She has not noticed a change in urine output from her urostomy. In the ED: Blood pressure was 191/84 on arrival. The remainder of her vital signs were stable. CMP and CBC were pretty unremarkable with the only outliers being a sodium of 136 and a random glucose of 145. Urinalysis was nitrate and leukocyte esterase positive with 51 to 100 WBC and 4+ bacteria. CT of the abdomen and pelvis showed no acute findings but did note constipation and ileal conduit with minimal fullness over the right renal pelvis. Attempts at disimpaction and enema were unsuccessful and she is being admitted in this setting for further treatment. Review of Systems Review of Systems: 12 systems were reviewed and are negative except for as per HPI. [facility] Past Medical History Medical History (Updated 12/13/24 @ 21:17 by Maureen Kelley PA-C) Paroxysmal atrial fibrillation Gastroesophageal reflux disease Hyperlipidemia Post traumatic stress disorder Degenerative disc disease Incomplete paraplegia Sleep apnea History of MRSA infection Depression Anemia Fibromyalgia Scoliosis Arthritis Irritable bowel Hemorrhoids Asthma Anxiety Insomnia Obesity (BMI 30-39.9) Stroke Hypertension Allergies Surgical History Surgical History History of tonsillectomy History of total cystectomy History of hernia repair History of cholecystectomy History of appendectomy History of cardiac catheterization History of ileal conduit History of back surgery Family History Family History Father Hypertension Cancer Mother Cancer Hypertension Anxiety Grandparent Cancer Social History Social History (Updated 12/13/24 @ 21:13 by Maureen Kelley PA-C) Social History: Surrogate medical decision maker: Vicenta Mcnulty. Code status: Full code. Smoking status: Never smoker Alcohol intake: never Substance use: never Substance use type: does not use Do You Feel Safe in your Home?: Yes Lack of Transportation: No Lack of Food: Never True Current Housing: I Have Housing Concerned About Future Housing: No Difficulty Paying Gas/Electric Bills: No Difficulty Paying for Meds: No Currently Unemployed: No Education: High School Diploma/GED Difficulty w/ Childcare or Family Care: No Spiritual care concerns: No Meds Home Medications and Allergies Home Medications ?Medication ?Instructions ?Recorded ?Confirmed ?Type alprazolam 0.25 mg tablet 0.25 mg PO TID PRN anxiety #60 tabs 02/17/23 12/13/24 Rx diclofenac sodium 1 % topical gel 2 g topical QID #100 grams 02/17/23 12/13/24 Rx (Voltaren Arthritis Pain) losartan 100 mg tablet 100 mg PO DAILY #90 tabs 02/17/23 12/13/24 Rx olanzapine 5 mg tablet 5 mg PO DAILY #30 tabs 02/17/23 12/13/24 Rx zolpidem 5 mg tablet (Ambien) 5 mg PO QHS #30 tabs 02/17/23 12/13/24 Rx atorvastatin 10 mg tablet 10 mg PO DAILY #90 tabs 08/22/23 12/13/24 Rx aspirin 81 mg tablet,delayed 81 mg PO DAILY #90 tabs 04/15/24 12/13/24 Rx release (Adult Low Dose Aspirin) ondansetron 4 mg disintegrating 4 mg PO Q8H PRN nausea and 05/11/24 12/13/24 Rx tablet vomiting #20 tabs polyethylene glycol 3350 17 gram 17 g PO DAILY PRN constipation 07/20/24 12/13/24 History oral powder packet (Miralax) sennosides 8.6 mg-docusate sodium 1 tab-cap PO BID PRN constipation 07/20/24 12/13/24 History 50 mg tablet (Senokot-S) metoprolol succinate 25 mg 25 mg PO DAILY 08/03/24 12/13/24 History tablet,extended release 24 hr furosemide 20 mg tablet See Rx Instructions .Route 09/14/24 12/13/24 Rx .COMPLEX #90 tabs phenazopyridine 200 mg tablet 200 mg PO TID 6 doses #6 tabs 10/18/24 12/13/24 Rx (Pyridium) acetaminophen 650 mg 650 mg PO Q8H PRN pain #30 tabs 11/29/24 12/13/24 Rx tablet,extended release ibuprofen 600 mg tablet 600 mg PO TID PRN pain #30 tabs 11/29/24 12/13/24 Rx hydrocodone 7.5 mg-acetaminophen 1 tablet PO Q8H PRN pain #30 tabs 12/03/24 12/13/24 Rx 325 mg tablet methocarbamol 750 mg tablet 750 mg PO TID #90 tabs 12/03/24 12/13/24 Rx semaglutide 0.25 mg or 0.5 mg (2 0.25 mg (0.368 mL) subcut WEEKLY 12/09/24 12/13/24 Rx mg/3 mL) subcutaneous pen injector #6 mL (Entreda) ropinirole 0.5 mg tablet 1 mg PO BID 12/13/24 12/13/24 History Allergies Allergy/AdvReac Type Severity Reaction Status Date / Time Penicillins Allergy Intermediate Hives Verified 12/13/24 11:43 Sulfa (Sulfonamide Allergy Intermediate Swelling Verified 12/13/24 11:43 Antibiotics) of Lip/Tongue/Throat vancomycin Allergy Intermediate Hives Verified 12/13/24 11:43 adhesive tape Allergy Mild Blister Verified 12/13/24 11:43 Latex, Natural Rubber Allergy Mild Itching Verified 12/13/24 11:43 Vital Signs Vital Signs - 24 hr 12/13/24 11:40 12/13/24 14:00 12/13/24 14:01 Temperature 97.8 F Pulse Rate 98 Respiratory Rate 18 Blood Pressure 191/84 H Pulse Oximetry 100 100 100 Oxygen Delivery Room Air 12/13/24 14:15 12/13/24 14:30 12/13/24 14:45 Temperature Pulse Rate Respiratory Rate Blood Pressure Pulse Oximetry 96 94 96 Oxygen Delivery 12/13/24 15:00 12/13/24 15:16 12/13/24 15:30 Temperature Pulse Rate Respiratory Rate Blood Pressure Pulse Oximetry 98 95 98 Oxygen Delivery 12/13/24 15:45 12/13/24 15:46 Temperature Pulse Rate 82 Respiratory Rate Blood Pressure 118/76 Pulse Oximetry 100 100 Oxygen Delivery Exam Narrative: General: Well-developed, nontoxic-appearing female in the semi-Allen position in bed. She appears a bit uncomfortable. Weight: 100 kg. BMI: 33.5. HEENT: PERRL, EOMI. Sclera anicteric. Oral mucosa moist. Neck: Supple. Respiratory: Lungs are clear to auscultation bilaterally. Cardiovascular: Regular rate and rhythm with S1-S2. Gastrointestinal: Abdomen is soft and perhaps slightly distended with positive bowel sounds. She has some tenderness to deeper palpation in the left side of the abdomen. No guarding or rebound tenderness. Urostomy stoma hernia and ventral hernia are noted to be without pain. No CVA tenderness. Skin: Warm and dry. Extremities: No cyanosis or clubbing. Trace dwayne ankle edema bilaterally. Peripheral pulses palpable. Neurological: Alert. Cranial nerves 2-12 are grossly intact. Incomplete paraplegia with slight contractures of the lower extremities. No gross focal deficits to casual conversation. Psychiatric: Pleasant and cooperative with normal mood and affect. Judgment and insight intact. H&P: Results Labs Labs: Short CBC 12/13/24 Range/Units 12:04 WBC 7.7 (4.5-10.0) K/mm3 Hgb 13.2 (12.0-15.0) g/dL Hct 40.9 (37.0-47.0) % Plt Count 210 (150-375) k/mm3 BMP 12/13/24 12:04 Sodium 136 L Potassium 3.4 Chloride 100 Carbon Dioxide 26 BUN 12 Creatinine 0.68 L Glucose 145 H Calcium 8.8 Liver Function 12/13/24 Range/Units 12:04 Total Bilirubin 1.2 (0.2-1.3) mg/dL AST 23 (14-36) U/L ALT 18 (6-35) U/L Alkaline Phosphatase 94 (38-126) U/L Albumin 4.2 (3.5-5.1) g/dL Urine 12/13/24 Range/Units 13:53 Urine Color Yellow (Yellow) Urine Appearance Cloudy H (Clear) Urine pH 6.5 (5.0-9.0) Ur Specific Ashley 1.018 (1.001-1.035) Urine Protein Trace (Negative) mg/dL Urine Glucose (UA) Negative (Negative) mg/dL Imaging Abdomen/Pelvis CT 12/13/24 12:50 IMPRESSION: 1. No evidence of appendicitis, diverticulitis or intestinal obstruction. 2. Ileal conduit with minimal fullness of the right renal pelvis. 3. Constipation. Assessment and Plan Assessment and plan (1) Fecal impaction: Code(s): K56.41 - Fecal impaction Status: Acute (2) Hyperglycemia: Code(s): R73.9 - Hyperglycemia, unspecified Status: Acute (3) Asymptomatic bacteriuria: Code(s): R82.71 - Bacteriuria Status: Acute (4) Hypertension: Qualifiers: Hypertension type: primary hypertension Qualified Code(s): I10 - Essential (primary) hypertension Code(s): I10 - Essential (primary) hypertension Status: Chronic (5) Depression with anxiety: Code(s): F41.8 - Other specified anxiety disorders Status: Acute Plan The patient presented to the emergency department with complaints of left-sided abdominal pain and constipation without a bowel movement and about 11 days time as detailed in HPI. Hxop-gfu-uwketkb medications as well as attempted fecal disimpaction and enemas in the ED have been without success. She has been started on an aggressive bowel regimen and this this is unsuccessful, endoscopic disimpaction may be necessary. Avoid narcotics; she had several doses in the ED. we discussed the importance of maintaining a good bowel regimen at home including daily MiraLax in addition to the senna and docusate. She has asymptomatic bacteriuria thus no indication for antibiotics. Check fasting glucose and hemoglobin A1c as her random glucose was 145. Blood pressure was high on arrival, likely due to discomfort, but has improved. Her medications will be reviewed and resumed as appropriate. Findings and treatment plan were discussed with the patient. Questions were solicited and answered to satisfaction. The patient's medical management will be taken over by the hospitalist team in a.m. Quality VTE Prophylaxis VTE prophylaxis: pharmacologic ordered The patient has been admitted under observation status. Hospitalist [facility] Advance Care Plan I have confirmed that the patient's Advanced Care Plan is present, code status is documented, or surrogate decision maker is listed in patient medical record.: Yes Medication Reconciliation I have utilized all available resources to obtain, update and review the patients current medications (includes all prescriptions, OTC, herbals, cannabis, and nutritional supplements).: Yes
[2024-12-13] MEDS: DOCUSATE SODIUM 400 MG/400 ML ENEMA RECTAL (22:39)
[2024-12-13] MEDS: polyethylene glycoL 3350 17 GM POWD.PACK PO (23:27)
[2024-12-13] MEDS: SENNA/DOCUSATE SODIUM TABLET 1 TAB PO (23:27)
[2024-12-13] MEDS: BISACODYL 10 MG SUPPOSITORY RECTAL (23:28)
[2024-12-14] MEDS: MORPHINE SULFATE (*CRX) 2 MG/ML INJ IV PUSH ×2 (00:30→22:28)
[2024-12-14] MEDS: ALPRAZolam (*CRX) 0.25 MG TABLET PO ×2 (00:30→20:07)
[2024-12-14] MEDS: LACTATED RINGERS 1,000 ML 125 ML IV CONT ×3 (00:31→20:07)
[2024-12-14] MEDS: methocarbamoL 750 MG TABLET PO ×4 (04:26→16:31)
[2024-12-14] MEDS: WATER FOR IRRIGATION, STERILE 500 ML BOTTLE (04:26)
[2024-12-14] MEDS: rOPINIRole HCL 1 MG TABLET PO ×3 (04:26→16:31)
[2024-12-14 06:00] VITALS: BP 150/75; PULSE 102; RESP 20; TEMP 36.6; O2SAT 100
--- NOTE | 2024-12-14 07:20 | PM.IMPN ---
Progress Note: A&P Assessment and Plan (1) Fecal impaction: Code(s): K56.41 - Fecal impaction Status: Acute Assessment and Plan: Came to the ED c/o LLQ pain and constipation x11 days -OTC medications as well as attempted fecal disimpaction and enemas in the ED have been without success. -She has been started on an aggressive bowel regimen and if this is unsuccessful, endoscopic disimpaction may be necessary. -Plan to avoid narcotics; she had several doses in the ED -Importance of maintaining a good bowel regimen at home including daily MiraLax in addition to the senna and docusate has been re-iterated Per GI today: Constipation with fecal impaction/generalized abdominal pain/nausea/decreased appetite/early satiety/personal Hx of colon polyps: Last colonoscopy 11/29/2019 showed diverticulosis but was otherwise normal. Patient presented to the emergency room yesterday with complaints of constipation and abdominal pain. At time of admission patient states that it had been 11 days since her last bowel movement. Patient with a history of fecal impaction around 2 years ago. She was previously taking Senna and MiraLax daily but had not been taking MiraLax regularly prior to her admission as she felt she was doing well on the Senna alone. Patient has retained the urge to defecate prior to bowel movements. Unsuccessful manual disimpaction and enema administration this admission. Patient is having generalized abdominal pain that is sharp and intermittent in nature. She is having nausea without vomiting secondary to constipation and abdominal pain. Since becoming constipation the patient has also been having a decreased appetite and early satiety. Patient is pending approval for Ozempic outpatient, we discussed at length possible GI side effects of this medication and how it may exacerbate her constipation. If patient ends up being started on Ozempic she is aware that she will have to start a more aggressive daily bowel regimen. Patient would like to try medications prior to considering colonoscopy. check thyroid function High dose PEG with electrolytes. 1 liter daily x 3 days. 250 ml every 1-1.5 hrs x 4 doses per day Bisacodyl 5 mg daily simethicone 125 mg QID if patients bowels states moving but has difficulty passing large stool, may benefit from oil retention enema to help lubricate and soften stool monitor electrolytes if no improvement with above regimen, patient may require endoscopic disimpaction avoid narcotic use at this time patient on opioid medications but states that she takes then vary rarely. She will need a more aggressive daily bowel regimen outpatient, consider Linzess 72 mcg daily Patient will need to follow up with me outpatient in 2-3 weeks for closer management of constipation Patient is due for a 5 year repeat colonoscopy which we will discuss scheduling outpatient once we have her constipation under better control (2) Hyperglycemia: Code(s): R73.9 - Hyperglycemia, unspecified Status: Acute Assessment and Plan: Random BS of 145 obtained in ED -Will continue to monitor labs, -A1c: 5.0 (3) Asymptomatic bacteriuria: Code(s): R82.71 - Bacteriuria Status: Acute Assessment and Plan: Asymptomatic bacteriuria thus no indication for antibiotics. -Pending UC -L sided urostomy in place (4) Hypertension: Qualifiers: Hypertension type: primary hypertension Qualified Code(s): I10 - Essential (primary) hypertension Code(s): I10 - Essential (primary) hypertension Status: Chronic Assessment and Plan: Blood pressure was high on arrival, likely due to discomfort, but has improved. -Continue home meds, continue to monitor (5) Depression with anxiety: Code(s): F41.8 - Other specified anxiety disorders Status: Acute Assessment and Plan: Resumed home meds (6) Insomnia: Code(s): G47.00 - Insomnia, unspecified Status: Acute Assessment and Plan: Pt states that she has been unable to sleep since yesterday AM -Encouraged sleep hygiene -Benadryl 25mg PRN ordered today, will continue to monitor this and change medications if necessary Plan Await BM with rigorous bowel regimen, continue with daily labs for electrolyte status Subjective Date/time seen: 12/14/24 1045 Interval history: Per ED provider: 51-year-old female it is wheelchair-bound secondary to partial paraplegia presents emergency department for evaluation for issues with constipation. Patient does have prior history of fecal impaction approximately 2 years ago. Patient states she has not had a significant bowel movement approximately 11 days. Patient has tried [id number] medications with no success. Patient states she has increased abdominal pain and is not passing flatness. Per admitting hospitalist: This is a 59-year-old female who is wheelchair-bound due to incomplete paraplegia with history of fecal impaction, irritable bowel, gastroesophageal reflux disease, hypertension, dyslipidemia, stroke, obstructive sleep apnea, depression, and anxiety who presented to the emergency department via private vehicle with complaints of left-sided abdominal pain. She has not had a decent bowel movement for about 11 days and she has tried [id number] medications without success. She presents today with increasing left-sided abdominal cramping which has become quite intense. She does take narcotics for chronic pain and she takes senna/docusate sodium as needed but has fallen out of the habit of taking MiraLax daily. She denies fever, vomiting, low back pain, and generalized malaise. She has not noticed a change in urine output from her urostomy. 12/14: Pt reporting that her abd pain is slightly better, she has been able to pass some gas and some liquid stool, but nothing solid. She does state that she has not been able to sleep at all since yesterday AM due to the pain. Pt admits being able to keep down CLD. Plan to continue with aggressive bowel regimen. GI following. Review of Systems Review of Systems: 12 systems were reviewed and are negative except for as per HPI. Exam Const: General: no acute distress and uncomfortable (intermittent abd cramps) Other: Very pleasant woman HENMT: Face/Nose/Sinus: Normal nares present Mouth: Yes moist mucous membranes Eyes: General: appearance normal, both eyes and all related structures Sclera: sclerae normal Neck: Neck: supple and no JVD Carotids: no bruits Resp: Effort & Inspection: normal respiratory effort Auscultation: clear to auscultation bilaterally Cardio: Rate: regular rate Rhythm: regular rhythm GI: Inspection: distended Other: Abdomen is soft with some TTP LLQ. No guarding or rebound tenderness. Urostomy stoma hernia and ventral hernia are noted to be without pain. No CVA tenderness. Urostomy draining well with good output. Skin: General skin exam: normal color and no rashes or lesions noted Neuro: Other: Incomplete paraplegia with slight contractures of the lower extremities. Reflexive tremors to BLE during our conversation. Extrem: Other: See above Psych: Mental Status: mental status grossly normal Affect: normal affect Objective Data Vital Signs Vital Signs: Vital Signs - 24 hr 12/13/24 11:40 12/13/24 14:00 12/13/24 14:01 Temperature 97.8 F Pulse Rate 98 Respiratory Rate 18 Blood Pressure 191/84 H Pulse Oximetry 100 100 100 Oxygen Delivery Room Air Fraction of Inspired Oxygen 12/13/24 14:15 12/13/24 14:30 12/13/24 14:45 Temperature Pulse Rate Respiratory Rate Blood Pressure Pulse Oximetry 96 94 96 Oxygen Delivery Fraction of Inspired Oxygen 12/13/24 15:00 12/13/24 15:16 12/13/24 15:30 Temperature Pulse Rate Respiratory Rate Blood Pressure Pulse Oximetry 98 95 98 Oxygen Delivery Fraction of Inspired Oxygen 12/13/24 15:45 12/13/24 15:46 12/13/24 22:13 Temperature 99.5 F Pulse Rate 82 92 Respiratory Rate 20 Blood Pressure 118/76 154/91 H Pulse Oximetry 100 100 99 Oxygen Delivery Fraction of Inspired Oxygen 12/13/24 23:47 Temperature Pulse Rate Respiratory Rate Blood Pressure Pulse Oximetry 99 Oxygen Delivery Room Air Fraction of Inspired Oxygen 21 Intake/Output Intake/Output: Intake & Output 12/11/24 12/12/24 12/13/24 12/14/24 23:59 23:59 23:59 23:59 Intake Total 850 Output Total 350 Balance -350 850 Meds/Results Medications: Active Medications Generic Name Dose Route Start Last Admin Trade Name Freq PRN Reason Stop Dose Admin Acetaminophen 650 mg 12/13/24 20:34 12/13/24 20:52 Acetaminophen 325 Mg Tablet PO 650 mg Q6H PRN Administration Mild Pain (1-3) or Fever Alprazolam 0.25 mg 12/13/24 21:22 12/14/24 00:30 Alprazolam (*Crx) 0.25 Mg Tablet PO 0.25 mg TID PRN Administration anxiety Aspirin 81 mg 12/14/24 09:00 Aspirin 81 Mg Enteric Tablet PO DAILY [facility] Atorvastatin Calcium 10 mg 12/14/24 09:00 Atorvastatin 10 Mg Tablet PO DAILY [facility] Diclofenac Sodium 1 applic 12/14/24 09:00 Diclofenac Sodium 1% 100 Gm Gel (*Bkc) TOPICAL QID [facility] Docusate Sodium 100 mg 12/14/24 09:00 Docusate Sodium 100 Mg Capsule PO Q12HR [facility] Enoxaparin Sodium 40 mg 12/14/24 09:00 Enoxaparin 40 Mg/0.4 Ml Syringe SUB-Q DAILY [facility] Furosemide 20 mg 12/14/24 09:00 Furosemide 20 Mg Tablet BY MOUTH DAILY [facility] Lactated Ringer's 1,000 mls @ 125 mls/hr 12/13/24 16:10 12/14/24 00:31 Lr - Lactated Ringers Iv IV CONT 125 mls/hr .Q8H ANA Administration Losartan Potassium 100 mg 12/14/24 09:00 Losartan Potassium 100 Mg Tablet PO DAILY [facility] Methocarbamol 750 mg 12/14/24 09:00 Methocarbamol 750 Mg Tablet PO TID [facility] Metoprolol Succinate 25 mg 12/14/24 09:00 Metoprolol Succinate Ext Rel 25 Mg Tabcr PO DAILY [facility] Olanzapine 5 mg 12/14/24 09:00 Olanzapine 5 Mg Tablet PO DAILY [facility] Polyethylene Glycol 17 gm 12/14/24 09:00 Polyethylene Glycol 3350 17 Gm Powd.Pack PO QAM [facility] Polyethylene Glycol 17 gm 12/13/24 21:22 12/13/24 23:27 Polyethylene Glycol 3350 17 Gm Powd.Pack PO 17 gm DAILY PRN Administration constipation Ropinirole HCl 1 mg 12/14/24 09:00 Ropinirole Hcl 1 Mg Tablet PO BID [facility] Senna/Docusate Sodium 1 tab 12/13/24 21:22 12/13/24 23:27 Senna/Docusate Sodium Tablet PO 1 tab BID PRN Administration constipation Zolpidem Tartrate 5 mg 12/14/24 21:00 Zolpidem Tartrate (*Crx) 5 Mg Tablet PO QHS [facility] Radiology Results: ITS Impressions Abdomen/Pelvis CT 12/13/24 12:50 IMPRESSION: 1. No evidence of appendicitis, diverticulitis or intestinal obstruction. 2. Ileal conduit with minimal fullness of the right renal pelvis. 3. Constipation. Labs Labs: Laboratory Results - last 24 hr 12/13/24 12/13/24 12:04 13:53 WBC 7.7 RBC 4.87 Hgb 13.2 Hct 40.9 MCV 84.0 MCH 27.1 MCHC 32.3 RDW 14.3 Plt Count 210 MPV 9.6 Immature Gran % (Auto) 0.3 Neut % (Auto) 66.1 Lymph % (Auto) 22.0 [place] % (Auto) 9.6 H Eos % (Auto) 1.4 Baso % (Auto) 0.6 Lymph # (Auto) 1.70 [place] # (Auto) 0.7 H Eos # (Auto) 0.1 Baso # (Auto) 0.1 Abs Immat Gran (auto) 0.02 Absolute Neuts (auto) 5.1 Absolute Nucleated RBC 0.000 Nucleated RBC % 0.0 Sodium 136 L Potassium 3.4 Chloride 100 Carbon Dioxide 26 Anion Gap 10 BUN 12 Creatinine 0.68 L Estim Creat Clear Calc 96 Estimated GFR > 60 Glucose 145 H Calcium 8.8 Total Bilirubin 1.2 AST 23 ALT 18 Alkaline Phosphatase 94 Total Protein 8.0 Albumin 4.2 Lipase 28 Urine Color Yellow Urine Appearance Cloudy H Urine pH 6.5 Ur Specific [place] 1.018 Urine Protein Trace Urine Glucose (UA) Negative Urine Ketones Negative Ur Blood (Man) 1+ H Urine Nitrate Positive H Urine Bilirubin Negative Urine Urobilinogen 1.0 Leukocyte Esterase Rfl 3+ H Urine RBC 3-5 H Urine WBC 51-100 H Ur Squamous Epith Cells Few Urine Bacteria 4+ H Urine Casts 3-5 Quality VTE Prophylaxis VTE prophylaxis: pharmacologic ordered
[2024-12-14 08:00] VITALS: O2SAT 100
--- NOTE | 2024-12-14 09:06 | P.CONGI_ITS ---
Assessment and Plan Assessment and plan (1) Constipation: Qualifiers: Constipation type: chronic idiopathic constipation Qualified Code(s): K 59.04 - Chronic idiopathic constipation Code(s): K59.00 - Constipation, unspecified Status: Acute (2) Fecal impaction: Code(s): K56.41 - Fecal impaction Status: Acute (3) Generalized abdominal pain: Code(s): R10.84 - Generalized abdominal pain Status: Acute (4) Nausea: Code(s): R11.0 - Nausea Status: Acute (5) Decreased appetite: Code(s): R63.0 - Anorexia Status: Acute (6) Early satiety: Code(s): R68.81 - Early satiety Status: Acute (7) Colon polyps: Qualifiers: Colon polyp type: unspecified Colon location: unspecified part of colon Qualified Code(s): K63.5 - Polyp of colon Code(s): K63.5 - Polyp of colon Status: Acute Plan 1. Constipation with fecal impaction/generalized abdominal pain/nausea/decreased appetite/early satiety/personal Hx of colon polyps: Last colonoscopy 11/29/2019 showed diverticulosis but was otherwise normal. Patient presented to the emergency room yesterday with complaints of constipation and abdominal pain. At time of admission patient states that it had been 11 days since her last bowel movement. Patient with a history of fecal impaction around 2 years ago. She was previously taking Senna and MiraLax daily but had not been taking MiraLax regularly prior to her admission as she felt she was doing well on the Senna alone. Patient has retained the urge to defecate prior to bowel movements. Unsuccessful manual disimpaction and enema administration this admission. Patient is having generalized abdominal pain that is sharp and intermittent in nature. She is having nausea without vomiting secondary to constipation and abdominal pain. Since becoming constipation the patient has also been having a decreased appetite and early satiety. Patient is pending approval for Ozempic outpatient, we discussed at length possible GI side effects of this medication and how it may exacerbate her constipation. If patient ends up being started on Ozempic she is aware that she will have to start a more aggressive daily bowel regimen. Patient would like to try medications prior to considering colonoscopy. * check thyroid function * High dose PEG with electrolytes. 1 liter daily x 3 days. 250 ml every 1-1.5 hrs x 4 doses per day * Bisacodyl 5 mg daily * simethicone 125 mg QID * if patients bowels states moving but has difficulty passing large stool, may benefit from oil retention enema to help lubricate and soften stool * monitor electrolytes * if no improvement with above regimen, patient may require endoscopic disimpaction * avoid narcotic use at this time * patient on opioid medications but states that she takes then vary rarely. * She will need a more aggressive daily bowel regimen outpatient, consider Linzess 72 mcg daily * Patient will need to follow up with me outpatient in 2-3 weeks for closer management of constipation * Patient is due for a 5 year repeat colonoscopy which we will discuss scheduling outpatient once we have her constipation under better control Thank you very much for allowing me to share in the care of this very nice patient. This report may have been done utilizing a voice recognition system. Attempts have been made to correct errors. However, there may be uncorrected grammatical, spelling, and recognition errors present. GI Consult Note Consult date/time: 12/14/24 09:06 Reason for consult: Fecal impaction HPI: Angelina Mcnulty is a 59 year old female with PMSH of spinal stimulator, wheelchair-bound secondary to partial paraplegia, appendectomy, cholecystectomy history of cardiac catheterization, hernia repair, total cystectomy with ileal conduit, depression, anxiety, AFib, GERD, HLD, PTSD, YAJAIRA, fibromyalgia, IBS, scoliosis, hemorrhoids, asthma, insomnia, stroke, HTN, personal history of colon polyps. She presented to the emergency room yesterday with complaints of constipation abdominal pain. GI has been consulted for fecal impaction. Patient states that she had a history of fecal impaction around 2 years ago. Last colonoscopy in November of 2019 showed diverticulosis but was otherwise normal. Her bowel regimen prior to admission was senna and MiraLax daily but she states that she had stopped using the MiraLax regularly as she felt she was having regular large bowel movements with senna alone. She uses hydrocodone sparingly on average every few days. She admits to generalized abdominal pain that is sharp and intermittent in nature since Friday. She has occasional nausea secondary to constipation and abdominal pain. Admits to abdominal bloating, early satiety, and decreased appetite. She denies odynophagia, dysphagia, reflux, regurgitation, unexplained weight loss, diarrhea, hematochezia, or melena. Denies aspirin or anticoagulant use. Prior abdominal surgeries include cystectomy, hernia repair, appendectomy, and cholecystectomy. Family history includes paternal grandfather with colon cancer but history negative for CRC or IBD in a first-degree relative. ENDOSCOPY HISTORY: EGD: Last EGD > 10 years ago COLONOSCOPY: 11/29/2019 at [facility] for personal Hx of colon polyps Findings: Diverticulosis otherwise normal colonoscopy 5 year repeat recommended LABS AND STOOL STUDIES: Labs 12/13/2024: Sodium 136, potassium 3.4, BUN 12, creatinine 0.68, GFR >60, calcium 8.8 WBC 8, Hgb 13, Hct 41, MCV 84, platelets 210 Total bilirubin 1.2, AST 23, ALT 18, Alkaline Phos 94, albumin 4.2, lipase 28 Labs 07/30/2024: TSH 6.490 and T4 0.75 IMAGING: CT abd/pelvis w/contrast 12/13/2024: BOWEL AND MESENTERY: Colon: No evidence of diverticulitis. Fecal material is loaded in the colon. No evidence of appendicitis. Small Bowel: Normal. No obstruction. Peritoneum/mesentery: No free air or free fluid. No mesenteric lymphadenopathy. RETROPERITONEUM: Mild atheromatous disease of the abdominal aorta. IVC filter is noted. No retroperitoneal lymphadenopathy. MUSCULOSKELETAL: Superficial soft tissues: The superficial soft tissues are normal. Bones: Age appropriate degenerative changes of the spine. Postoperative changes in the upper lumbar area. Pubic symphysitis. Bilateral moderate hip osteoarthritic changes. Left buttock spinal stimulator. IMPRESSION: 1. No evidence of appendicitis, diverticulitis or intestinal obstruction. 2. Ileal conduit with minimal fullness of the right renal pelvis. 3. Constipation. CTA chest/abd/pelvis 08/03/2024: Impression: No acute abnormality. No pulmonary embolus. Borderline splenomegaly. Stable small cystic lesion at the pancreatic tail. Stable postoperative changes, as above. Review of Systems 2 Constitutional: Constitutional: Reports as per HPI ENT: Reports as per HPI Cardiovascular: Cardiovascular: Reports as per HPI, Denies chest pain and Denies dyspnea Respiratory: Respiratory: Denies cough and Denies dyspnea Gastrointestinal: Gastrointestinal: Reports as per HPI Genitourinary: Comments: s/p cystectomy with ileal conduit Musculoskeletal: Musculoskeletal: Reports as per HPI Integumentary/Breasts: Skin/Breast: Reports as per HPI Psychiatric: Psychiatric: Reports as per HPI Endocrine: Endocrine: Reports no additional endocrine complaints Hematologic/Lymphatic: Hematologic/Lymphatic: Reports no additional hematologic/lymphatic complaints [facility] Past Medical History Medical History (Updated 12/14/24 @ 10:46 by Sherin Dai APRN) Paroxysmal atrial fibrillation Gastroesophageal reflux disease Hyperlipidemia Post traumatic stress disorder Degenerative disc disease Incomplete paraplegia Sleep apnea History of MRSA infection Depression Anemia Fibromyalgia Scoliosis Arthritis Irritable bowel Hemorrhoids Asthma Anxiety Insomnia Obesity (BMI 30-39.9) Stroke Hypertension Allergies Surgical History Surgical History History of tonsillectomy History of total cystectomy History of hernia repair History of cholecystectomy History of appendectomy History of cardiac catheterization History of ileal conduit History of back surgery Family History Family History Father Hypertension Cancer Mother Cancer Hypertension Anxiety Grandparent Cancer Social History Social History (Updated 12/13/24 @ 21:13 by Maureen Kelley PA-C) Social History: Surrogate medical decision maker: Vicenta Mcnulty. Code status: Full code. Smoking status: Never smoker Alcohol intake: never Substance use: never Substance use type: does not use Do You Feel Safe in your Home?: Yes Lack of Transportation: No Lack of Food: Never True Current Housing: I Have Housing Concerned About Future Housing: No Difficulty Paying Gas/Electric Bills: No Difficulty Paying for Meds: No Currently Unemployed: No Education: High School Diploma/GED Difficulty w/ Childcare or Family Care: No Spiritual care concerns: No Meds Home Medications and Allergies Home Medications ?Medication ?Instructions ?Recorded ?Confirmed ?Type alprazolam 0.25 mg tablet 0.25 mg PO TID PRN anxiety #60 tabs 02/17/23 12/13/24 Rx diclofenac sodium 1 % topical gel 2 g topical QID #100 grams 02/17/23 12/13/24 Rx (Voltaren Arthritis Pain) losartan 100 mg tablet 100 mg PO DAILY #90 tabs 02/17/23 12/13/24 Rx olanzapine 5 mg tablet 5 mg PO DAILY #30 tabs 02/17/23 12/13/24 Rx zolpidem 5 mg tablet (Ambien) 5 mg PO QHS #30 tabs 02/17/23 12/13/24 Rx atorvastatin 10 mg tablet 10 mg PO DAILY #90 tabs 08/22/23 12/13/24 Rx aspirin 81 mg tablet,delayed 81 mg PO DAILY #90 tabs 04/15/24 12/13/24 Rx release (Adult Low Dose Aspirin) ondansetron 4 mg disintegrating 4 mg PO Q8H PRN nausea and 05/11/24 12/13/24 Rx tablet vomiting #20 tabs polyethylene glycol 3350 17 gram 17 g PO DAILY PRN constipation 07/20/24 12/13/24 History oral powder packet (Miralax) sennosides 8.6 mg-docusate sodium 1 tab-cap PO BID PRN constipation 07/20/24 12/13/24 History 50 mg tablet (Senokot-S) metoprolol succinate 25 mg 25 mg PO DAILY 08/03/24 12/13/24 History tablet,extended release 24 hr furosemide 20 mg tablet See Rx Instructions .Route 09/14/24 12/13/24 Rx .COMPLEX #90 tabs phenazopyridine 200 mg tablet 200 mg PO TID 6 doses #6 tabs 10/18/24 12/13/24 Rx (Pyridium) acetaminophen 650 mg 650 mg PO Q8H PRN pain #30 tabs 11/29/24 12/13/24 Rx tablet,extended release ibuprofen 600 mg tablet 600 mg PO TID PRN pain #30 tabs 11/29/24 12/13/24 Rx hydrocodone 7.5 mg-acetaminophen 1 tablet PO Q8H PRN pain #30 tabs 12/03/24 12/13/24 Rx 325 mg tablet methocarbamol 750 mg tablet 750 mg PO TID #90 tabs 12/03/24 12/13/24 Rx semaglutide 0.25 mg or 0.5 mg (2 0.25 mg (0.368 mL) subcut WEEKLY 12/09/24 12/13/24 Rx mg/3 mL) subcutaneous pen injector #6 mL (Ozempic) ropinirole 0.5 mg tablet 1 mg PO BID 12/13/24 12/13/24 History Allergies Allergy/AdvReac Type Severity Reaction Status Date / Time Penicillins Allergy Intermediate Hives Verified 12/13/24 11:43 Sulfa (Sulfonamide Allergy Intermediate Swelling Verified 12/13/24 11:43 Antibiotics) of Lip/Tongue/Throat vancomycin Allergy Intermediate Hives Verified 12/13/24 11:43 adhesive tape Allergy Mild Blister Verified 12/13/24 11:43 Latex, Natural Rubber Allergy Mild Itching Verified 12/13/24 11:43 Vital Signs Vital Signs - 24 hr 12/13/24 11:40 12/13/24 14:00 12/13/24 14:01 Temperature 97.8 F Pulse Rate 98 Respiratory Rate 18 Blood Pressure 191/84 H Pulse Oximetry 100 100 100 Oxygen Delivery Room Air Fraction of Inspired Oxygen 12/13/24 14:15 12/13/24 14:30 12/13/24 14:45 Temperature Pulse Rate Respiratory Rate Blood Pressure Pulse Oximetry 96 94 96 Oxygen Delivery Fraction of Inspired Oxygen 12/13/24 15:00 12/13/24 15:16 12/13/24 15:30 Temperature Pulse Rate Respiratory Rate Blood Pressure Pulse Oximetry 98 95 98 Oxygen Delivery Fraction of Inspired Oxygen 12/13/24 15:45 12/13/24 15:46 12/13/24 22:13 Temperature 99.5 F Pulse Rate 82 92 Respiratory Rate 20 Blood Pressure 118/76 154/91 H Pulse Oximetry 100 100 99 Oxygen Delivery Fraction of Inspired Oxygen 12/13/24 23:47 12/14/24 06:00 Temperature 97.8 F Pulse Rate 102 H Respiratory Rate 20 Blood Pressure 150/75 H Pulse Oximetry 99 100 Oxygen Delivery Room Air Fraction of Inspired Oxygen 21 Exam 2 Const: General: cooperative, healthy appearing, comfortable, no acute distress and well developed Orientation/consciousness: oriented to person, oriented to place, oriented to time and patient oriented x3 HENMT: Head: normal to inspection, normocephalic and atraumatic Mouth: Yes Normal oral and palatal mucosa present and Yes moist mucous membranes Eyes: General: appearance normal, both eyes and all related structures C onjunctivae: conjunctivae normal Sclera: sclerae normal Pupils: Equal, round and reactive pupils present Neck: Neck: normal visual inspection Chest: Chest palpation & inspection: normal inspection of the chest Resp: Effort & Inspection: normal respiratory effort and able to speak in complete sentences Auscultation: clear to auscultation bilaterally Cardio: Jugular venous distension: no JVD Rate: regular rate Rhythm: r egular rhythm Heart sounds: S1 normal heart sound present and S2 normal heart sound present GI: Inspection: normal to inspection GI Palp: Yes Soft to palpation and Yes No hepatosplenomegaly present Auscultation: normal bowel sounds Rectal Exam: deferred : Other: Status post cystectomy with ileal conduit Skin: General skin exam: normal color and no rashes or lesions noted Neuro: General: oriented to person, oriented to place, oriented to time and patient oriented x3 Cranial nerves: Yes Equal, round and reactive pupils present Speech: normal speech Extrem: General: normal to inspection and no clubbing, cyanosis or edema Psych: Appearance: grossly normal and well kempt Affect: normal affect Results Labs 12/13/24 12:04 12/13/24 12:04 Labs: Short CBC 12/13/24 Range/Units 12:04 WBC 7.7 (4.5-10.0) K/mm3 Hgb 13.2 (12.0-15.0) g/dL Hct 40.9 (37.0-47.0) % Plt Count 210 (150-375) k/mm3 BMP 12/13/24 12:04 Sodium 136 L Potassium 3.4 Chloride 100 Carbon Dioxide 26 BUN 12 Creatinine 0.68 L Glucose 145 H Calcium 8.8 Liver Function 12/13/24 Range/Units 12:04 Total Bilirubin 1.2 (0.2-1.3) mg/dL AST 23 (14-36) U/L ALT 18 (6-35) U/L Alkaline Phosphatase 94 (38-126) U/L Albumin 4.2 (3.5-5.1) g/dL Urine 12/13/24 Range/Units 13:53 Urine Color Yellow (Yellow) Urine Appearance Cloudy H (Clear) Urine pH 6.5 (5.0-9.0) Ur Specific [place] 1.018 (1.001-1.035) Urine Protein Trace (Negative) mg/dL Urine Glucose (UA) Negative (Negative) mg/dL
[2024-12-14 09:30] VITALS: PULSE 85
[2024-12-14] MEDS: polyethylene glycoL 3350 17 GM POWD.PACK PO (09:30)
[2024-12-14] MEDS: METOPROLOL SUCCINATE EXT REL 25 MG TABCR PO (09:30)
[2024-12-14] MEDS: ASPIRIN 81 MG ENTERIC TABLET PO (09:33)
[2024-12-14] MEDS: DOCUSATE SODIUM 100 MG CAPSULE PO ×2 (09:33→20:07)
[2024-12-14] MEDS: ENOXAPARIN 40 MG/0.4 ML SYRINGE SUB-Q (09:33)
[2024-12-14] MEDS: LOSARTAN POTASSIUM 100 MG TABLET PO (09:33)
[2024-12-14] MEDS: ATORVASTATIN 10 MG TABLET PO (09:33)
[2024-12-14] MEDS: OLANZapine 5 MG TABLET PO (09:33)
[2024-12-14] MEDS: FUROSEMIDE 20 MG TABLET BY MOUTH (09:33)
[2024-12-14] MEDS: DICLOFENAC SODIUM 1% 100 GM GEL (*BKC) 1 APPLIC TOPICAL ×4 (09:34→20:08)
[2024-12-14 10:29] LABS: Hematocrit 36.2 % (37.0-47.0); Hemoglobin 11.7 g/dL (12.0-15.0); Mean Corpuscular HGB Conc 32.3 g/dl (32-36); Mean Corpuscular Hemoglobin 27.1 pg (26-34); Mean Corpuscular Volume 83.8 fl (80-100); Mean Platelet Volume 9.8 fl (7.4-10.4); Platelet Count Result 184 k/mm3 (150-375); Red Blood Count 4.32 M/mm3 (4.2-5.4); Red Cell Distribution Width 14.1 % (11.5-14.5); White Blood Count 4.8 K/mm3 (4.5-10.0)
[2024-12-14 10:41] LABS: Anion Gap 8 mmol/L (4-12); Blood Urea Nitrogen 7 mg/dL (7-17); Calcium 8.7 mg/dL (8.4-10.2); Carbon Dioxide 27 mmol/L (22-30); Chloride 103 mmol/L (98-107); Estimated CRCL calculation 97 ml/min; Estimated Glomerular Filt Rate > 60; Glucose 164 mg/dL (65-110); Magnesium 2.2 mg/dL (1.6-2.3); Potassium 3.9 mmol/L (3.4-5.0); Sodium 138 mmol/L (137-145)
[2024-12-14 10:56] LABS: T4 Thyroxine 8.47 ug/dL (5.53-11.0)
[2024-12-14] MEDS: BISACODYL 5 MG TABLET EC PO (11:55)
[2024-12-14] MEDS: PEG (High)/E-LYTE SOLN 4,000 ML BTL 250 ML PO ×4 (12:05→16:33)
[2024-12-14] MEDS: SIMETHICONE 125 MG CHEW TAB PO ×2 (12:05→16:31)
[2024-12-14 14:00] VITALS: BP 177/95; PULSE 81; RESP 18; TEMP 36.5; O2SAT 100
[2024-12-14] MEDS: ONDANSETRON INJ 4 MG/2 ML VIAL IV PUSH (17:27)
[2024-12-14] MEDS: ZOLPIDEM TARTRATE (*CRX) 5 MG TABLET PO (20:07)
[2024-12-14 22:00] VITALS: BP 146/82; PULSE 85; PULSE 86; RESP 18; TEMP 37.1; O2SAT 100
[2024-12-15] MEDS: LACTATED RINGERS 1,000 ML 125 ML IV CONT ×3 (03:32→17:53)
[2024-12-15 05:49] LABS: Alanine Aminotransferase 15 U/L (6-35); Albumin Level 3.4 g/dL (3.5-5.1); Alkaline Phosphatase 70 U/L (38-126); Anion Gap 8 mmol/L (4-12); Aspartate Amino Transferase 19 U/L (14-36); Bilirubin,Total 0.5 mg/dL (0.2-1.3); Blood Urea Nitrogen 7 mg/dL (7-17); Calcium 8.3 mg/dL (8.4-10.2); Carbon Dioxide 25 mmol/L (22-30); Chloride 104 mmol/L (98-107); Estimated CRCL calculation 111 ml/min; Estimated Glomerular Filt Rate > 60; Glucose 130 mg/dL (65-110); Magnesium 2.1 mg/dL (1.6-2.3); Potassium 3.4 mmol/L (3.4-5.0); Sodium 137 mmol/L (137-145); Total Protein 6.5 g/dL (6.3-8.2)
[2024-12-15 06:00] VITALS: BP 138/69; PULSE 73; RESP 18; TEMP 36.8; O2SAT 97
[2024-12-15] MEDS: DOCUSATE SODIUM 100 MG CAPSULE PO ×2 (08:42→20:54)
[2024-12-15] MEDS: OLANZapine 5 MG TABLET PO (08:42)
[2024-12-15] MEDS: ASPIRIN 81 MG ENTERIC TABLET PO (08:42)
[2024-12-15] MEDS: FUROSEMIDE 20 MG TABLET BY MOUTH (08:42)
[2024-12-15] MEDS: methocarbamoL 750 MG TABLET PO ×3 (08:42→17:52)
[2024-12-15] MEDS: ATORVASTATIN 10 MG TABLET PO (08:42)
[2024-12-15] MEDS: rOPINIRole HCL 1 MG TABLET PO ×2 (08:42→17:51)
[2024-12-15] MEDS: polyethylene glycoL 3350 17 GM POWD.PACK PO (08:43)
[2024-12-15] MEDS: LOSARTAN POTASSIUM 100 MG TABLET PO (08:43)
[2024-12-15] MEDS: BISACODYL 5 MG TABLET EC PO (08:43)
[2024-12-15] MEDS: PEG (High)/E-LYTE SOLN 4,000 ML BTL 250 ML PO ×4 (08:44→12:03)
[2024-12-15 08:46] VITALS: PULSE 86
[2024-12-15] MEDS: METOPROLOL SUCCINATE EXT REL 25 MG TABCR PO (08:46)
[2024-12-15] MEDS: ENOXAPARIN 40 MG/0.4 ML SYRINGE SUB-Q (08:46)
[2024-12-15] MEDS: DICLOFENAC SODIUM 1% 100 GM GEL (*BKC) 1 APPLIC TOPICAL ×4 (09:52→20:56)
[2024-12-15] MEDS: POTASSIUM CHLORIDE 20 MEQ ER TABLET 40 MEQ PO (09:58)
--- NOTE | 2024-12-15 10:48 | P.PNIM_ITS ---
Progress Note: A&P Assessment and Plan (1) Fecal impaction: Code(s): K56.41 - Fecal impaction Status: Acute Assessment and Plan: Came to the ED c/o LLQ pain and constipation x11 days -OTC medications as well as attempted fecal disimpaction and enemas in the ED have been without success. -She has been started on an aggressive bowel regimen and if this is unsuccessful, endoscopic disimpaction may be necessary. -Plan to avoid narcotics; she had several doses in the ED -Importance of maintaining a good bowel regimen at home including daily MiraLax in addition to the senna and docusate has been re-iterated Per GI 12/14: Constipation with fecal impaction/generalized abdominal pain/nausea/decreased appetite/early satiety/personal Hx of colon polyps: Last colonoscopy 11/29/2019 showed diverticulosis but was otherwise normal. Patient presented to the emergency room yesterday with complaints of constipation and abdominal pain. At time of admission patient states that it had been 11 days since her last bowel movement. Patient with a history of fecal impaction around 2 years ago. She was previously taking Senna and MiraLax daily but had not been taking MiraLax regularly prior to her admission as she felt she was doing well on the Senna alone. Patient has retained the urge to defecate prior to bowel movements. Unsuccessful manual disimpaction and enema administration this admission. Patient is having generalized abdominal pain that is sharp and intermittent in nature. She is having nausea without vomiting secondary to constipation and abdominal pain. Since becoming constipation the patient has also been having a decreased appetite and early satiety. Patient is pending approval for Ozempic outpatient, we discussed at length possible GI side effects of this medication and how it may exacerbate her constipation. If patient ends up being started on Ozempic she is aware that she will have to start a more aggressive daily bowel regimen. Patient would like to try medications prior to considering colonoscopy. * check thyroid function * High dose PEG with electrolytes. 1 liter daily x 3 days. 250 ml every 1-1.5 hrs x 4 doses per day * Bisacodyl 5 mg daily * simethicone 125 mg QID * if patients bowels states moving but has difficulty passing large stool, may benefit from oil retention enema to help lubricate and soften stool * monitor electrolytes * if no improvement with above regimen, patient may require endoscopic disimpaction * avoid narcotic use at this time * patient on opioid medications but states that she takes then vary rarely. * She will need a more aggressive daily bowel regimen outpatient, consider Linzess 72 mcg daily * Patient will need to follow up with me outpatient in 2-3 weeks for closer management of constipation * Patient is due for a 5 year repeat colonoscopy which we will discuss scheduling outpatient once we have her constipation under better control (2) Urinary tract infection: Qualifiers: Hematuria presence: without hematuria Urinary tract infection type: acute cystitis Qualified Code(s): N30.00 - Acute cystitis without hematuria Code(s): N39.0 - Urinary tract infection, site not specified Status: Acute Assessment and Plan: * Urine culture grew klebsiella oxytoca. * Ceftriaxone 2 gram IVPB daily. * WBC 5.3. Temp 97.4 F. (3) Hyperglycemia: Code(s): R73.9 - Hyperglycemia, unspecified Status: Acute Assessment and Plan: Random BS of 145 obtained in ED -Will continue to monitor labs, -A1c: 5.0 (4) Hypertension: Qualifiers: Hypertension type: primary hypertension Qualified Code(s): I10 - Essential (primary) hypertension Code(s): I10 - Essential (primary) hypertension Status: Chronic Assessment and Plan: Blood pressure was high on arrival, likely due to discomfort, but has improved. -Continue home meds, continue to monitor (5) Depression with anxiety: Code(s): F41.8 - Other specified anxiety disorders Status: Acute Assessment and Plan: -Resumed home meds (6) Insomnia: Code(s): G47.00 - Insomnia, unspecified Status: Acute Assessment and Plan: Pt states that she has been unable to sleep since yesterday AM -Encouraged sleep hygiene -Benadryl 25mg PRN ordered today, will continue to monitor this and change medications if necessary Plan Await BM with rigorous bowel regimen, continue with daily labs for electrolyte status Subjective Date/time seen: 12/15/24 10:48 Interval history: Patient sitting up in bed. Patient reports abdominal pain that is a 6, frequent, sharp, and pressure. Patient reports that golytely makes her a little nauseas at times. Patient denies shortness of breath, chest pain, palpitations, headache, or vomiting. Patient reports feeling a little dizzy at times but denies at present. Reports bilateral flank pain that is a 5, frequent, and aching. Review of Systems Review of Systems: All systems reviewed & are unremarkable except as noted in HPI and below Exam Const: General: no acute distress and uncomfortable Resp: Effort & Inspection: normal respiratory effort Auscultation: clear to auscultation bilaterally Cardio: Rate: regular rate Rhythm: regular rhythm GI: GI Palp: Yes Soft to palpation Auscultation: normal bowel sounds : Other: bilateral CVA tenderness Urinary Catheter: Urinary Catheter: patent and draining (illeoconduit) Neuro: Speech: normal speech Other: Incomplete paraplegia with slight contractures of the lower extremities. Reflexive tremors to BLE during our conversation. Psych: Mental Status: mental status grossly normal Affect: normal affect Objective Data Vital Signs Vital Signs: Vital Signs - 24 hr 12/14/24 14:00 12/14/24 20:00 12/14/24 22:00 Temperature 97.7 F 98.8 F Pulse Rate 81 86 Respiratory Rate 18 18 Blood Pressure 177/95 H 146/82 H Pulse Oximetry 100 100 Oxygen Delivery Room Air 12/14/24 22:00 12/15/24 06:00 12/15/24 08:00 Temperature 98.3 F Pulse Rate 85 73 Respiratory Rate 18 Blood Pressure 138/69 Pulse Oximetry 100 97 Oxygen Delivery Room Air 12/15/24 08:46 Temperature Pulse Rate 86 Respiratory Rate Blood Pressure Pulse Oximetry Oxygen Delivery Intake/Output Intake/Output: Intake & Output 12/12/24 12/13/24 12/14/24 12/15/24 23:59 23:59 23:59 23:59 Intake Total 4420 1731.3 Output Total 350 4952 750 Balance -350 -532 981.3 Meds/Results Medications: Active Medications Generic Name Dose Route Start Last Admin Trade Name Freq PRN Reason Stop Dose Admin Acetaminophen 650 mg 12/13/24 20:34 12/13/24 20:52 Acetaminophen 325 Mg Tablet PO 650 mg Q6H PRN Administration Mild Pain (1-3) or Fever Alprazolam 0.25 mg 12/13/24 21:22 12/14/24 20:07 Alprazolam (*Crx) 0.25 Mg Tablet PO 0.25 mg TID PRN Administration anxiety Aspirin 81 mg 12/14/24 09:00 12/15/24 08:42 Aspirin 81 Mg Enteric Tablet PO 81 mg DAILY ANA Administration Atorvastatin Calcium 10 mg 12/14/24 09:00 12/15/24 08:42 Atorvastatin 10 Mg Tablet PO 10 mg DAILY ANA Administration Bisacodyl 5 mg 12/14/24 10:30 12/15/24 08:43 Bisacodyl 5 Mg Tablet Ec PO 5 mg QAM ANA Administration Diclofenac Sodium 1 applic 12/14/24 09:00 12/15/24 09:52 Diclofenac Sodium 1% 100 Gm Gel (*Bkc) TOPICAL 1 applic QID ANA Administration Diphenhydramine HCl 25 mg 12/14/24 13:40 Diphenhydramine Hcl Cap 25 Mg Capsule PO Q6H PRN Insomnia Docusate Sodium 100 mg 12/14/24 09:00 12/15/24 08:42 Docusate Sodium 100 Mg Capsule PO 100 mg Q12HR ANA Administration Enoxaparin Sodium 40 mg 12/14/24 09:00 12/15/24 08:46 Enoxaparin 40 Mg/0.4 Ml Syringe SUB-Q 40 mg DAILY ANA Administration Furosemide 20 mg 12/14/24 09:00 12/15/24 08:42 Furosemide 20 Mg Tablet BY MOUTH 20 mg DAILY ANA Administration Lactated Ringer's 1,000 mls @ 125 mls/hr 12/13/24 16:10 12/15/24 09:58 Lr - Lactated Ringers Iv IV CONT 125 mls/hr .Q8H ANA Administration Losartan Potassium 100 mg 12/14/24 09:00 12/15/24 08:43 Losartan Potassium 100 Mg Tablet PO 100 mg DAILY ANA Administration Methocarbamol 750 mg 12/14/24 09:00 12/15/24 08:42 Methocarbamol 750 Mg Tablet PO 750 mg TID ANA Administration Metoprolol Succinate 25 mg 12/14/24 09:00 12/15/24 08:46 Metoprolol Succinate Ext Rel 25 Mg Tabcr PO 25 mg DAILY ANA Administration Morphine Sulfate 2 mg 12/14/24 22:04 12/14/24 22:28 Morphine Sulfate (*Crx) 2 Mg/Ml Inj IV PUSH 2 mg Q6H PRN Administration Pain Rated 7-10 Olanzapine 5 mg 12/14/24 09:00 12/15/24 08:42 Olanzapine 5 Mg Tablet PO 5 mg DAILY ANA Administration Ondansetron HCl 4 mg 12/14/24 17:14 12/14/24 17:27 Ondansetron Inj 4 Mg/2 Ml Vial IV PUSH 4 mg Q4H PRN Administration Nausea And Vomiting Polyethylene Glycol 17 gm 12/14/24 09:00 12/15/24 08:43 Polyethylene Glycol 3350 17 Gm Powd.Pack PO 17 gm QAM ANA Administration Polyethylene Glycol 17 gm 12/13/24 21:22 12/13/24 23:27 Polyethylene Glycol 3350 17 Gm Powd.Pack PO 17 gm DAILY PRN Administration constipation Polyethylene Glycol/Electrolytes 250 ml 12/15/24 09:00 12/15/24 10:00 Peg (High)/E-Lyte Soln 4,000 Ml Btl PO 12/15/24 12:01 250 ml Q1H ANA Administration Polyethylene Glycol/Electrolytes 250 ml 12/16/24 09:00 Peg (High)/E-Lyte Soln 4,000 Ml Btl PO 12/16/24 12:01 Q1H ANA Ropinirole HCl 1 mg 12/14/24 09:00 12/15/24 08:42 Ropinirole Hcl 1 Mg Tablet PO 1 mg BID ANA Administration Senna/Docusate Sodium 1 tab 12/13/24 21:22 12/13/24 23:27 Senna/Docusate Sodium Tablet PO 1 tab BID PRN Administration constipation Simethicone 125 mg 12/14/24 13:00 12/15/24 08:47 Simethicone 125 Mg Chew Tab PO Not Given QID ANA Zolpidem Tartrate 5 mg 12/14/24 21:00 12/14/24 20:07 Zolpidem Tartrate (*Crx) 5 Mg Tablet PO 5 mg QHS ANA Administration Radiology Results: ITS Impressions Abdomen/Pelvis CT 12/13/24 12:50 IMPRESSION: 1. No evidence of appendicitis, diverticulitis or intestinal obstruction. 2. Ileal conduit with minimal fullness of the right renal pelvis. 3. Constipation. Labs Labs: Laboratory Results - last 24 hr 12/14/24 12/15/24 10:22 05:01 Sodium 137 Potassium 3.4 Chloride 104 Carbon Dioxide 25 Anion Gap 8 BUN 7 Creatinine 0.59 L Estim Creat Clear Calc 111 Estimated GFR > 60 Glucose 130 H Calcium 8.3 L Magnesium 2.1 Total Bilirubin 0.5 AST 19 ALT 15 Alkaline Phosphatase 70 Total Protein 6.5 Albumin 3.4 L TSH 1.300 Thyroxine (T4) 8.47 Quality VTE Prophylaxis VTE prophylaxis: pharmacologic ordered
[2024-12-15 11:04] LABS: Basophils Absolute Auto 0.1 K/mm3 (0.0-0.1); Basophils Percent Auto 0.9 % (0.2-1.2); Eosinophils Absolute Auto 0.1 K/mm3 (0-0.3); Eosinophils Percent Auto 2.4 % (0-4.4); Hematocrit 34.9 % (37.0-47.0); Hemoglobin 11.3 g/dL (12.0-15.0); Immature Granulocyte Absolute 0.01 K/mm3 (0.00-0.031); Immature Granulocyte Percent A 0.2 % (0-0.5); Lymphocytes Percent Auto 31.8 % (18.3-44.2); Mean Corpuscular HGB Conc 32.4 g/dl (32-36); Mean Corpuscular Hemoglobin 27.4 pg (26-34); Mean Corpuscular Volume 84.7 fl (80-100); Mean Platelet Volume 10.5 fl (7.4-10.4); Monocytes Absolute Auto 0.6 K/mm3 (0.1-0.6); Monocytes Percent Auto 10.5 % (2.6-8.5); Neutrophils Absolute Auto 2.9 K/mm3 (1.3-6.7); Neutrophils Percent Auto 54.2 % (45.5-73.1); Platelet Count Result 202 k/mm3 (150-375); Red Blood Count 4.12 M/mm3 (4.2-5.4); Red Cell Distribution Width 14.6 % (11.5-14.5); White Blood Count 5.3 K/mm3 (4.5-10.0)
[2024-12-15] MEDS: cefTRIAXone 2 GM/NS 100 ML 2 GM/100 ML BAG IVPB (12:04)
[2024-12-15 15:40] VITALS: BP 157/95; PULSE 73; RESP 18; TEMP 36.3; O2SAT 98
[2024-12-15] MEDS: MORPHINE SULFATE (*CRX) 2 MG/ML INJ IV PUSH (18:36)
--- NOTE | 2024-12-15 19:08 | WPDGIPROGNO ---
Progress Note: A&P Assessment and Plan (1) Fecal impaction: Code(s): K56.41 - Fecal impaction Status: Acute Assessment and Plan: continue bowel regimen better but still abdominal discomfort tolerating diet (2) Generalized abdominal pain: Code(s): R10.84 - Generalized abdominal pain Status: Acute (3) Constipation: Code(s): K59.00 - Constipation, unspecified Status: Acute Assessment and Plan: due for colonoscopy, probably will do as outpatient (4) Paraplegia: Code(s): G82.20 - Paraplegia, unspecified Status: Acute (5) Chronic pain: Code(s): G89.29 - Other chronic pain Status: Acute (6) History of ileal conduit: Code(s): Z98.890 - Other specified postprocedural states Status: Acute Subjective Date/time seen: 12/15/24 19:08 Interval history: having loose stools, no changes Review of Systems Review of Systems: All systems reviewed & are unremarkable except as noted in HPI and below Exam Const: General: no acute distress HENMT: Face/Nose/Sinus: Normal nares present Eyes: Sclera: sclerae normal Neck: Neck: supple Resp: Effort & Inspection: normal respiratory effort Auscultation: clear to auscultation bilaterally Cardio: Rate: regular rate Rhythm: regular rhythm GI: GI Palp: Yes Soft to palpation Auscultation: normal bowel sounds : Other: bilateral CVA tenderness Urinary Catheter: Urinary Catheter: patent and draining ([place]oconduit) Skin: General skin exam: normal color Neuro: Speech: normal speech Other: Incomplete paraplegia with slight contractures of the lower extremities. Reflexive tremors to BLE during our conversation. Psych: Mental Status: mental status grossly normal Affect: normal affect Objective Data Vital Signs Vital Signs: Vital Signs - 24 hr 12/14/24 20:00 12/14/24 22:00 12/14/24 22:00 Temperature 98.8 F Pulse Rate 86 85 Respiratory Rate 18 Blood Pressure 146/82 H Pulse Oximetry 100 100 Oxygen Delivery Room Air 12/15/24 06:00 12/15/24 08:00 12/15/24 08:46 Temperature 98.3 F Pulse Rate 73 86 Respiratory Rate 18 Blood Pressure 138/69 Pulse Oximetry 97 Oxygen Delivery Room Air 12/15/24 15:40 Temperature 97.4 F L Pulse Rate 73 Respiratory Rate 18 Blood Pressure 157/95 H Pulse Oximetry 98 Oxygen Delivery Intake/Output Intake/Output: Intake & Output 12/12/24 12/13/24 12/14/24 12/15/24 23:59 23:59 23:59 23:59 Intake Total 4420 4550.9 Output Total 350 4952 4300 Balance -350 -532 250.9 Meds/Results Medications: Active Medications Generic Name Dose Route Start Last Admin Trade Name Freq PRN Reason Stop Dose Admin Acetaminophen 650 mg 12/13/24 20:34 12/13/24 20:52 Acetaminophen 325 Mg Tablet PO 650 mg Q6H PRN Administration Mild Pain (1-3) or Fever Alprazolam 0.25 mg 12/13/24 21:22 12/14/24 20:07 Alprazolam (*Crx) 0.25 Mg Tablet PO 0.25 mg TID PRN Administration anxiety Aspirin 81 mg 12/14/24 09:00 12/15/24 08:42 Aspirin 81 Mg Enteric Tablet PO 81 mg DAILY ANA Administration Atorvastatin Calcium 10 mg 12/14/24 09:00 12/15/24 08:42 Atorvastatin 10 Mg Tablet PO 10 mg DAILY ANA Administration Bisacodyl 5 mg 12/14/24 10:30 12/15/24 08:43 Bisacodyl 5 Mg Tablet Ec PO 5 mg QAM ANA Administration Diclofenac Sodium 1 applic 12/14/24 09:00 12/15/24 17:52 Diclofenac Sodium 1% 100 Gm Gel (*Bkc) TOPICAL 1 applic QID ANA Administration Diphenhydramine HCl 25 mg 12/14/24 13:40 Diphenhydramine Hcl Cap 25 Mg Capsule PO Q6H PRN Insomnia Docusate Sodium 100 mg 12/14/24 09:00 12/15/24 08:42 Docusate Sodium 100 Mg Capsule PO 100 mg Q12HR ANA Administration Enoxaparin Sodium 40 mg 12/14/24 09:00 12/15/24 08:46 Enoxaparin 40 Mg/0.4 Ml Syringe SUB-Q 40 mg DAILY ANA Administration Furosemide 20 mg 12/14/24 09:00 12/15/24 08:42 Furosemide 20 Mg Tablet BY MOUTH 20 mg DAILY ANA Administration Lactated Ringer's 1,000 mls @ 125 mls/hr 12/13/24 16:10 12/15/24 17:53 Lr - Lactated Ringers Iv IV CONT 125 mls/hr .Q8H ANA Administration Ceftriaxone Sodium 2 gm in 100 mls @ 200 mls/hr 12/15/24 12:00 12/15/24 12:04 Rocephin 2 Gm/Ns 100 Ml IVPB 200 mls/hr Q24H ANA Administration Losartan Potassium 100 mg 12/14/24 09:00 12/15/24 08:43 Losartan Potassium 100 Mg Tablet PO 100 mg DAILY ANA Administration Methocarbamol 750 mg 12/14/24 09:00 12/15/24 17:52 Methocarbamol 750 Mg Tablet PO 750 mg TID ANA Administration Metoprolol Succinate 25 mg 12/14/24 09:00 12/15/24 08:46 Metoprolol Succinate Ext Rel 25 Mg Tabcr PO 25 mg DAILY ANA Administration Morphine Sulfate 2 mg 12/14/24 22:04 12/15/24 18:36 Morphine Sulfate (*Crx) 2 Mg/Ml Inj IV PUSH 2 mg Q6H PRN Administration Pain Rated 7-10 Olanzapine 5 mg 12/14/24 09:00 12/15/24 08:42 Olanzapine 5 Mg Tablet PO 5 mg DAILY ANA Administration Ondansetron HCl 4 mg 12/14/24 17:14 12/14/24 17:27 Ondansetron Inj 4 Mg/2 Ml Vial IV PUSH 4 mg Q4H PRN Administration Nausea And Vomiting Polyethylene Glycol 17 gm 12/14/24 09:00 12/15/24 08:43 Polyethylene Glycol 3350 17 Gm Powd.Pack PO 17 gm QAM ANA Administration Polyethylene Glycol 17 gm 12/13/24 21:22 12/13/24 23:27 Polyethylene Glycol 3350 17 Gm Powd.Pack PO 17 gm DAILY PRN Administration constipation Polyethylene Glycol/Electrolytes 250 ml 12/16/24 09:00 Peg (High)/E-Lyte Soln 4,000 Ml Btl PO 12/16/24 12:01 Q1H ANA Ropinirole HCl 1 mg 12/14/24 09:00 12/15/24 17:51 Ropinirole Hcl 1 Mg Tablet PO 1 mg BID ANA Administration Senna/Docusate Sodium 1 tab 12/13/24 21:22 12/13/24 23:27 Senna/Docusate Sodium Tablet PO 1 tab BID PRN Administration constipation Simethicone 125 mg 12/14/24 13:00 12/15/24 17:52 Simethicone 125 Mg Chew Tab PO Not Given QID ANA Zolpidem Tartrate 5 mg 12/14/24 21:00 12/14/24 20:07 Zolpidem Tartrate (*Crx) 5 Mg Tablet PO 5 mg QHS ANA Administration Radiology Results: ITS Impressions Abdomen/Pelvis CT 12/13/24 12:50 IMPRESSION: 1. No evidence of appendicitis, diverticulitis or intestinal obstruction. 2. Ileal conduit with minimal fullness of the right renal pelvis. 3. Constipation. Labs Labs: Laboratory Results - last 24 hr 12/15/24 05:01 WBC 5.3 RBC 4.12 L Hgb 11.3 L Hct 34.9 L MCV 84.7 MCH 27.4 MCHC 32.4 RDW 14.6 H Plt Count 202 MPV 10.5 H Immature Gran % (Auto) 0.2 Neut % (Auto) 54.2 Lymph % (Auto) 31.8 [place] % (Auto) 10.5 H Eos % (Auto) 2.4 Baso % (Auto) 0.9 Lymph # (Auto) 1.70 [place] # (Auto) 0.6 Eos # (Auto) 0.1 Baso # (Auto) 0.1 Abs Immat Gran (auto) 0.01 Absolute Neuts (auto) 2.9 Absolute Nucleated RBC 0.000 Nucleated RBC % 0.0 Sodium 137 Potassium 3.4 Chloride 104 Carbon Dioxide 25 Anion Gap 8 BUN 7 Creatinine 0.59 L Estim Creat Clear Calc 111 Estimated GFR > 60 Glucose 130 H Calcium 8.3 L Magnesium 2.1 Total Bilirubin 0.5 AST 19 ALT 15 Alkaline Phosphatase 70 Total Protein 6.5 Albumin 3.4 L
[2024-12-15] MEDS: ALPRAZolam (*CRX) 0.25 MG TABLET PO (20:54)
[2024-12-15] MEDS: ZOLPIDEM TARTRATE (*CRX) 5 MG TABLET PO (20:55)
[2024-12-15 22:00] VITALS: BP 169/104; PULSE 82; RESP 16; TEMP 36.7; O2SAT 99
[2024-12-15] MEDS: ACETAMINOPHEN 325 MG TABLET 650 MG PO (22:49)
[2024-12-16] VITALS (7 sets, daily range): BP systolic 156–192; BP diastolic 85–104; PULSE 70–82; RESP 16–20; TEMP 36.5–36.9; O2SAT 97–99
[2024-12-16] MEDS: LACTATED RINGERS 1,000 ML 125 ML IV CONT ×2 (02:14→11:39)
[2024-12-16 05:34] LABS: Basophils Absolute Auto 0.1 K/mm3 (0.0-0.1); Basophils Percent Auto 1.1 % (0.2-1.2); Eosinophils Absolute Auto 0.2 K/mm3 (0-0.3); Eosinophils Percent Auto 4.5 % (0-4.4); Hematocrit 35.9 % (37.0-47.0); Hemoglobin 11.5 g/dL (12.0-15.0); Immature Granulocyte Absolute 0.03 K/mm3 (0.00-0.031); Immature Granulocyte Percent A 0.6 % (0-0.5); Mean Corpuscular Hemoglobin 26.9 pg (26-34); Mean Corpuscular Volume 83.9 fl (80-100); Mean Platelet Volume 9.8 fl (7.4-10.4); Monocytes Absolute Auto 0.4 K/mm3 (0.1-0.6); Monocytes Percent Auto 7.9 % (2.6-8.5); Neutrophils Absolute Auto 2.9 K/mm3 (1.3-6.7); Neutrophils Percent Auto 53.9 % (45.5-73.1); Platelet Count Result 215 k/mm3 (150-375); Red Blood Count 4.28 M/mm3 (4.2-5.4); Red Cell Distribution Width 13.6 % (11.5-14.5); White Blood Count 5.3 K/mm3 (4.5-10.0)
[2024-12-16 05:49] LABS: Alanine Aminotransferase 15 U/L (6-35); Albumin Level 3.7 g/dL (3.5-5.1); Alkaline Phosphatase 73 U/L (38-126); Anion Gap 7 mmol/L (4-12); Aspartate Amino Transferase 18 U/L (14-36); Bilirubin,Total 0.3 mg/dL (0.2-1.3); Blood Urea Nitrogen 7 mg/dL (7-17); Calcium 8.9 mg/dL (8.4-10.2); Carbon Dioxide 28 mmol/L (22-30); Chloride 104 mmol/L (98-107); Estimated CRCL calculation 106 ml/min; Estimated Glomerular Filt Rate > 60; Glucose 124 mg/dL (65-110); Magnesium 2.1 mg/dL (1.6-2.3); Potassium 3.7 mmol/L (3.4-5.0); Sodium 139 mmol/L (137-145); Total Protein 6.9 g/dL (6.3-8.2)
[2024-12-16] MEDS: ASPIRIN 81 MG ENTERIC TABLET PO (08:24)
[2024-12-16] MEDS: methocarbamoL 750 MG TABLET PO ×3 (08:24→18:05)
[2024-12-16] MEDS: rOPINIRole HCL 1 MG TABLET PO ×2 (08:24→18:05)
[2024-12-16] MEDS: BISACODYL 5 MG TABLET EC PO (08:24)
[2024-12-16] MEDS: ATORVASTATIN 10 MG TABLET PO (08:24)
[2024-12-16] MEDS: LOSARTAN POTASSIUM 100 MG TABLET PO (08:25)
[2024-12-16] MEDS: OLANZapine 5 MG TABLET PO (08:25)
[2024-12-16] MEDS: FUROSEMIDE 20 MG TABLET BY MOUTH (08:25)
[2024-12-16] MEDS: METOPROLOL SUCCINATE EXT REL 25 MG TABCR PO (08:25)
[2024-12-16] MEDS: DOCUSATE SODIUM 100 MG CAPSULE PO ×2 (08:25→21:52)
[2024-12-16] MEDS: PEG (High)/E-LYTE SOLN 4,000 ML BTL 250 ML PO ×4 (08:26→11:44)
[2024-12-16] MEDS: DICLOFENAC SODIUM 1% 100 GM GEL (*BKC) 1 APPLIC TOPICAL ×4 (08:26→21:53)
[2024-12-16] MEDS: polyethylene glycoL 3350 17 GM POWD.PACK PO (08:26)
[2024-12-16] MEDS: ENOXAPARIN 40 MG/0.4 ML SYRINGE SUB-Q (08:34)
[2024-12-16] MEDS: ONDANSETRON INJ 4 MG/2 ML VIAL IV PUSH (09:37)
[2024-12-16] MEDS: ALPRAZolam (*CRX) 0.25 MG TABLET PO ×2 (09:37→21:52)
[2024-12-16] MEDS: cefTRIAXone 2 GM/NS 100 ML 2 GM/100 ML BAG IVPB (11:40)
--- NOTE | 2024-12-16 12:20 | P.PNIM_ITS ---
Progress Note: A&P Assessment and Plan (1) Fecal impaction: Code(s): K56.41 - Fecal impaction Status: Acute Assessment and Plan: Came to the ED c/o LLQ pain and constipation x11 days -OTC medications as well as attempted fecal disimpaction and enemas in the ED have been without success. -She has been started on an aggressive bowel regimen and if this is unsuccessful, endoscopic disimpaction may be necessary. -Plan to avoid narcotics; she had several doses in the ED -Importance of maintaining a good bowel regimen at home including daily MiraLax in addition to the senna and docusate has been re-iterated Per GI 12/14: Constipation with fecal impaction/generalized abdominal pain/nausea/decreased appetite/early satiety/personal Hx of colon polyps: Last colonoscopy 11/29/2019 showed diverticulosis but was otherwise normal. Patient presented to the emergency room yesterday with complaints of constipation and abdominal pain. At time of admission patient states that it had been 11 days since her last bowel movement. Patient with a history of fecal impaction around 2 years ago. She was previously taking Senna and MiraLax daily but had not been taking MiraLax regularly prior to her admission as she felt she was doing well on the Senna alone. Patient has retained the urge to defecate prior to bowel movements. Unsuccessful manual disimpaction and enema administration this admission. Patient is having generalized abdominal pain that is sharp and intermittent in nature. She is having nausea without vomiting secondary to constipation and abdominal pain. Since becoming constipation the patient has also been having a decreased appetite and early satiety. Patient is pending approval for Ozempic outpatient, we discussed at length possible GI side effects of this medication and how it may exacerbate her constipation. If patient ends up being started on Ozempic she is aware that she will have to start a more aggressive daily bowel regimen. Patient would like to try medications prior to considering colonoscopy. * check thyroid function * High dose PEG with electrolytes. 1 liter daily x 3 days. 250 ml every 1-1.5 hrs x 4 doses per day * Bisacodyl 5 mg daily * simethicone 125 mg QID * if patients bowels states moving but has difficulty passing large stool, may benefit from oil retention enema to help lubricate and soften stool * monitor electrolytes * if no improvement with above regimen, patient may require endoscopic disimpaction * avoid narcotic use at this time * patient on opioid medications but states that she takes then vary rarely. * She will need a more aggressive daily bowel regimen outpatient, consider Linzess 72 mcg daily * Patient will need to follow up with me outpatient in 2-3 weeks for closer management of constipation * Patient is due for a 5 year repeat colonoscopy which we will discuss scheduling outpatient once we have her constipation under better control * KUB today with no acute abdominal findings. (2) Urinary tract infection: Qualifiers: Hematuria presence: without hematuria Urinary tract infection type: acute cystitis Qualified Code(s): N30.00 - Acute cystitis without hematuria Code(s): N39.0 - Urinary tract infection, site not specified Status: Acute Assessment and Plan: * Urine culture grew klebsiella oxytoca. * Ceftriaxone 2 gram IVPB daily. * WBC 5.3. Temp 98.4 F. (3) Hyperglycemia: Code(s): R73.9 - Hyperglycemia, unspecified Status: Acute Assessment and Plan: Random BS of 145 obtained in ED -Will continue to monitor labs, -A1c: 5.0 (4) Hypertension: Qualifiers: Hypertension type: primary hypertension Qualified Code(s): I10 - Essential (primary) hypertension Code(s): I10 - Essential (primary) hypertension Status: Chronic Assessment and Plan: Blood pressure was high on arrival, likely due to discomfort, but has improved. -Blood pressure 192/104. Patient given Hydralazine 10 mg ivp. Blood pressure recheck 177/93. -Home medication Losartan 100 mg PO daily. -Monitor blood pressures. -Hydralazine 10 mg ivp q 8 PRN for systolic >180 (5) Depression with anxiety: Code(s): F41.8 - Other specified anxiety disorders Status: Acute Assessment and Plan: -Resumed home meds (6) Insomnia: Code(s): G47.00 - Insomnia, unspecified Status: Acute Assessment and Plan: Pt states that she has been unable to sleep since yesterday AM -Encouraged sleep hygiene -Benadryl 25mg PRN ordered today, will continue to monitor this and change medications if necessary (7) Rash: Code(s): R21 - Rash and other nonspecific skin eruption Status: Acute Assessment and Plan: * Scattered round red rash that came up this afternoon some areas with vesicles in the center. Most area are on trunk with a few areas noted to left lateral leg. * HSV swab sent. * Valacyclovir 1,000 mg PO q12. Plan Await BM with rigorous bowel regimen, continue with daily labs for electrolyte status Subjective Date/time seen: 12/16/24 12:20 Interval history: Patient sitting up in bed. Patient reports abdominal pain that is a 6, frequent, sharp, crampy, and pressure. Patient denies shortness of breath, chest pain, palpitations, headache, or vomiting. Review of Systems Review of Systems: All systems reviewed & are unremarkable except as noted in HPI and below Exam Const: General: no acute distress and uncomfortable Resp: Effort & Inspection: normal respiratory effort Auscultation: clear to auscultation bilaterally Cardio: Rate: regular rate Rhythm: regular rhythm GI: GI Palp: Yes Soft to palpation Auscultation: normal bowel sounds Skin: Other: Scattered round red rash that came up this afternoon some areas with vesicles in the center. Most area are on trunk with a few areas noted to left lateral leg. Neuro: Speech: normal speech Extrem: Other: Incomplete paraplegia with slight contractures of the lower extremities. Psych: Mental Status: mental status grossly normal Affect: normal affect Objective Data Vital Signs Vital Signs: Vital Signs - 24 hr 12/15/24 15:40 12/15/24 20:00 12/15/24 22:00 Temperature 97.4 F L 98.1 F Pulse Rate 73 82 Respiratory Rate 18 16 Blood Pressure 157/95 H 169/104 H Pulse Oximetry 98 99 Oxygen Delivery Room Air 12/16/24 06:01 12/16/24 08:00 12/16/24 08:25 Temperature 98.3 F Pulse Rate 70 70 Respiratory Rate 16 Blood Pressure 157/95 H Pulse Oximetry 97 Oxygen Delivery Room Air 12/16/24 09:19 Temperature Pulse Rate Respiratory Rate Blood Pressure Pulse Oximetry Oxygen Delivery Room Air Intake/Output Intake/Output: Intake & Output 12/13/24 12/14/24 12/15/24 12/16/24 23:59 23:59 23:59 23:59 Intake Total 4420 4650.9 2760 Output Total 350 4952 4300 4650 Balance -350 -532 350.9 -1890 Meds/Results Medications: Active Medications Generic Name Dose Route Start Last Admin Trade Name Freq PRN Reason Stop Dose Admin Acetaminophen 650 mg 06/16/25 20:34 12/15/24 22:49 Acetaminophen 325 Mg Tablet PO 650 mg Q6H PRN Administration Mild Pain (1-3) or Fever Alprazolam 0.25 mg 12/13/24 21:22 12/16/24 09:37 Alprazolam (*Crx) 0.25 Mg Tablet PO 0.25 mg TID PRN Administration anxiety Aspirin 81 mg 12/14/24 09:00 12/16/24 08:24 Aspirin 81 Mg Enteric Tablet PO 81 mg DAILY ANA Administration Atorvastatin Calcium 10 mg 12/14/24 09:00 12/16/24 08:24 Atorvastatin 10 Mg Tablet PO 10 mg DAILY ANA Administration Bisacodyl 5 mg 12/14/24 10:30 12/16/24 08:24 Bisacodyl 5 Mg Tablet Ec PO 5 mg QAM ANA Administration Diclofenac Sodium 1 applic 12/14/24 09:00 12/16/24 08:26 Diclofenac Sodium 1% 100 Gm Gel (*Bkc) TOPICAL 1 applic QID ANA Administration Diphenhydramine HCl 25 mg 12/14/24 13:40 Diphenhydramine Hcl Cap 25 Mg Capsule PO Q6H PRN Insomnia Docusate Sodium 100 mg 12/14/24 09:00 12/16/24 08:25 Docusate Sodium 100 Mg Capsule PO 100 mg Q12HR ANA Administration Enoxaparin Sodium 40 mg 12/14/24 09:00 12/16/24 08:34 Enoxaparin 40 Mg/0.4 Ml Syringe SUB-Q 40 mg DAILY ANA Administration Furosemide 20 mg 12/14/24 09:00 12/16/24 08:25 Furosemide 20 Mg Tablet BY MOUTH 20 mg DAILY ANA Administration Lactated Ringer's 1,000 mls @ 125 mls/hr 12/13/24 16:10 12/16/24 11:39 Lr - Lactated Ringers Iv IV CONT 125 mls/hr .Q8H ANA Administration Ceftriaxone Sodium 2 gm in 100 mls @ 200 mls/hr 12/15/24 12:00 12/16/24 11:40 Rocephin 2 Gm/Ns 100 Ml IVPB 200 mls/hr Q24H ANA Administration Losartan Potassium 100 mg 12/14/24 09:00 12/16/24 08:25 Losartan Potassium 100 Mg Tablet PO 100 mg DAILY ANA Administration Methocarbamol 750 mg 12/14/24 09:00 12/16/24 08:24 Methocarbamol 750 Mg Tablet PO 750 mg TID ANA Administration Metoprolol Succinate 25 mg 12/14/24 09:00 12/16/24 08:25 Metoprolol Succinate Ext Rel 25 Mg Tabcr PO 25 mg DAILY ANA Administration Morphine Sulfate 2 mg 12/14/24 22:04 12/15/24 18:36 Morphine Sulfate (*Crx) 2 Mg/Ml Inj IV PUSH 2 mg Q6H PRN Administration Pain Rated 7-10 Olanzapine 5 mg 12/14/24 09:00 12/16/24 08:25 Olanzapine 5 Mg Tablet PO 5 mg DAILY ANA Administration Ondansetron HCl 4 mg 12/14/24 17:14 12/16/24 09:37 Ondansetron Inj 4 Mg/2 Ml Vial IV PUSH 4 mg Q4H PRN Administration Nausea And Vomiting Polyethylene Glycol 17 gm 12/14/24 09:00 12/16/24 08:26 Polyethylene Glycol 3350 17 Gm Powd.Pack PO 17 gm QAM ANA Administration Polyethylene Glycol 17 gm 12/13/24 21:22 12/13/24 23:27 Polyethylene Glycol 3350 17 Gm Powd.Pack PO 17 gm DAILY PRN Administration constipation Ropinirole HCl 1 mg 12/14/24 09:00 12/16/24 08:24 Ropinirole Hcl 1 Mg Tablet PO 1 mg BID ANA Administration Senna/Docusate Sodium 1 tab 12/13/24 21:22 12/13/24 23:27 Senna/Docusate Sodium Tablet PO 1 tab BID PRN Administration constipation Simethicone 125 mg 12/14/24 13:00 12/16/24 11:40 Simethicone 125 Mg Chew Tab PO Not Given QID [facility] Zolpidem Tartrate 5 mg 12/14/24 21:00 12/15/24 20:55 Zolpidem Tartrate (*Crx) 5 Mg Tablet PO 5 mg QHS ANA Administration Radiology Results: ITS Impressions Abdomen/Pelvis CT 12/13/24 12:50 IMPRESSION: 1. No evidence of appendicitis, diverticulitis or intestinal obstruction. 2. Ileal conduit with minimal fullness of the right renal pelvis. 3. Constipation. Labs Labs: Laboratory Results - last 24 hr 12/16/24 05:09 WBC 5.3 RBC 4.28 Hgb 11.5 L Hct 35.9 L MCV 83.9 MCH 26.9 MCHC 32.0 RDW 13.6 Plt Count 215 MPV 9.8 Immature Gran % (Auto) 0.6 H Neut % (Auto) 53.9 Lymph % (Auto) 32.0 [place] % (Auto) 7.9 Eos % (Auto) 4.5 H Baso % (Auto) 1.1 Lymph # (Auto) 1.70 [place] # (Auto) 0.4 Eos # (Auto) 0.2 Baso # (Auto) 0.1 Abs Immat Gran (auto) 0.03 Absolute Neuts (auto) 2.9 Absolute Nucleated RBC 0.000 Nucleated RBC % 0.0 Sodium 139 Potassium 3.7 Chloride 104 Carbon Dioxide 28 Anion Gap 7 BUN 7 Creatinine 0.62 L Estim Creat Clear Calc 106 Estimated GFR > 60 Glucose 124 H Calcium 8.9 Magnesium 2.1 Total Bilirubin 0.3 AST 18 ALT 15 Alkaline Phosphatase 73 Total Protein 6.9 Albumin 3.7 Quality VTE Prophylaxis VTE prophylaxis: pharmacologic ordered
[2024-12-16] MEDS: hydrALAZINE HCL 20 MG/ML VIAL 10 MG IV PUSH (15:44)
--- NOTE | 2024-12-16 16:27 | P.PNGI_ITS ---
Progress Note: A&P Assessment and Plan (1) Fecal impaction: Code(s): K56.41 - Fecal impaction Status: Acute Assessment and Plan: KUB today no acute findings continue with bowel regimen tolerating diet will set up colonoscopy in few more weeks as outpatient will follow only as needed (2) Generalized abdominal pain: Code(s): R10.84 - Generalized abdominal pain Status: Acute Assessment and Plan: it has improved (3) Constipation: Code(s): K59.00 - Constipation, unspecified Status: Acute Assessment and Plan: due for colonoscopy because also personal history of polyps, will do as outpatient (4) Paraplegia: Code(s): G82.20 - Paraplegia, unspecified Status: Acute (5) Chronic pain: Code(s): G89.29 - Other chronic pain Status: Acute (6) History of ileal conduit: Code(s): Z98.890 - Other specified postprocedural states Status: Acute Subjective Date/time seen: 12/16/24 16:27 Interval history: overall better, abdomen less distended and eating noted new rash in her back Review of Systems Review of Systems: All systems reviewed & are unremarkable except as noted in HPI and below Exam Const: General: no acute distress HENMT: Face/Nose/Sinus: Normal nares present Eyes: Sclera: sclerae normal Neck: Neck: supple Resp: Effort & Inspection: normal respiratory effort Auscultation: clear to auscultation bilaterally Cardio: Rate: regular rate Rhythm: regular rhythm GI: GI Palp: Yes Soft to palpation Auscultation: normal bowel sounds Urinary Catheter: Urinary Catheter: patent and draining ([place]) Skin: Rashes: rashes noted (upper back) Neuro: Speech: normal speech Other: Incomplete paraplegia with slight contractures of the lower extremities. Reflexive tremors to BLE during our conversation. Psych: Mental Status: mental status grossly normal Affect: normal affect Objective Data Vital Signs Vital Signs: Vital Signs - 24 hr 12/15/24 20:00 12/15/24 22:00 12/16/24 06:01 Temperature 98.1 F 98.3 F Pulse Rate 82 70 Respiratory Rate 16 16 Blood Pressure 169/104 H 157/95 H Pulse Oximetry 99 97 Oxygen Delivery Room Air 12/16/24 08:00 12/16/24 08:25 12/16/24 09:19 Temperature Pulse Rate 70 Respiratory Rate Blood Pressure Pulse Oximetry Oxygen Delivery Room Air Room Air 12/16/24 15:00 12/16/24 15:06 Temperature 98.4 F Pulse Rate 77 Respiratory Rate 18 Blood Pressure 183/100 H 192/104 H Pulse Oximetry 97 Oxygen Delivery Intake/Output Intake/Output: Intake & Output 12/13/24 12/14/24 12/15/24 12/16/24 23:59 23:59 23:59 23:59 Intake Total 4420 4650.9 3000 Output Total 350 4952 4300 5925 Balance -350 -532 350.9 -0161 Meds/Results Medications: Active Medications Generic Name Dose Route Start Last Admin Trade Name Freq PRN Reason Stop Dose Admin Acetaminophen 650 mg 12/13/24 20:34 12/15/24 22:49 Acetaminophen 325 Mg Tablet PO 650 mg Q6H PRN Administration Mild Pain (1-3) or Fever Alprazolam 0.25 mg 12/13/24 21:22 12/16/24 09:37 Alprazolam (*Crx) 0.25 Mg Tablet PO 0.25 mg TID PRN Administration anxiety Aspirin 81 mg 12/14/24 09:00 12/16/24 08:24 Aspirin 81 Mg Enteric Tablet PO 81 mg DAILY ANA Administration Atorvastatin Calcium 10 mg 12/14/24 09:00 12/16/24 08:24 Atorvastatin 10 Mg Tablet PO 10 mg DAILY ANA Administration Bisacodyl 5 mg 12/14/24 10:30 12/16/24 08:24 Bisacodyl 5 Mg Tablet Ec PO 5 mg QAM ANA Administration Diclofenac Sodium 1 applic 12/14/24 09:00 12/16/24 12:26 Diclofenac Sodium 1% 100 Gm Gel (*Bkc) TOPICAL 1 applic QID ANA Administration Diphenhydramine HCl 25 mg 12/14/24 13:40 Diphenhydramine Hcl Cap 25 Mg Capsule PO Q6H PRN Insomnia Docusate Sodium 100 mg 12/14/24 09:00 12/16/24 08:25 Docusate Sodium 100 Mg Capsule PO 100 mg Q12HR ANA Administration Enoxaparin Sodium 40 mg 12/14/24 09:00 12/16/24 08:34 Enoxaparin 40 Mg/0.4 Ml Syringe SUB-Q 40 mg DAILY ANA Administration Furosemide 20 mg 12/14/24 09:00 12/16/24 08:25 Furosemide 20 Mg Tablet BY MOUTH 20 mg DAILY ANA Administration Ceftriaxone Sodium 2 gm in 100 mls @ 200 mls/hr 12/15/24 12:00 12/16/24 11:40 Rocephin 2 Gm/Ns 100 Ml IVPB 200 mls/hr Q24H ANA Administration Losartan Potassium 100 mg 12/14/24 09:00 12/16/24 08:25 Losartan Potassium 100 Mg Tablet PO 100 mg DAILY ANA Administration Methocarbamol 750 mg 12/14/24 09:00 12/16/24 12:22 Methocarbamol 750 Mg Tablet PO 750 mg TID ANA Administration Metoprolol Succinate 25 mg 12/14/24 09:00 12/16/24 08:25 Metoprolol Succinate Ext Rel 25 Mg Tabcr PO 25 mg DAILY ANA Administration Morphine Sulfate 2 mg 12/14/24 22:04 12/15/24 18:36 Morphine Sulfate (*Crx) 2 Mg/Ml Inj IV PUSH 2 mg Q6H PRN Administration Pain Rated 7-10 Olanzapine 5 mg 12/14/24 09:00 12/16/24 08:25 Olanzapine 5 Mg Tablet PO 5 mg DAILY ANA Administration Ondansetron HCl 4 mg 12/14/24 17:14 12/16/24 09:37 Ondansetron Inj 4 Mg/2 Ml Vial IV PUSH 4 mg Q4H PRN Administration Nausea And Vomiting Polyethylene Glycol 17 gm 12/14/24 09:00 12/16/24 08:26 Polyethylene Glycol 3350 17 Gm Powd.Pack PO 17 gm QAM ANA Administration Polyethylene Glycol 17 gm 12/13/24 21:22 12/13/24 23:27 Polyethylene Glycol 3350 17 Gm Powd.Pack PO 17 gm DAILY PRN Administration constipation Ropinirole HCl 1 mg 12/14/24 09:00 12/16/24 08:24 Ropinirole Hcl 1 Mg Tablet PO 1 mg BID ANA Administration Senna/Docusate Sodium 1 tab 12/13/24 21:22 12/13/24 23:27 Senna/Docusate Sodium Tablet PO 1 tab BID PRN Administration constipation Simethicone 125 mg 12/14/24 13:00 12/16/24 11:40 Simethicone 125 Mg Chew Tab PO Not Given QID [facility] Valacyclovir HCl 1,000 mg 12/16/24 15:10 Valacyclovir Hcl 500 Mg Tablet PO Q12HR [facility] Zolpidem Tartrate 5 mg 12/14/24 21:00 12/15/24 20:55 Zolpidem Tartrate (*Crx) 5 Mg Tablet PO 5 mg QHS ANA Administration Radiology Results: ITS Impressions Abdomen/Pelvis CT 12/13/24 12:50 IMPRESSION: 1. No evidence of appendicitis, diverticulitis or intestinal obstruction. 2. Ileal conduit with minimal fullness of the right renal pelvis. 3. Constipation. Abdomen X-Ray 12/16/24 15:07 IMPRESSION: NO ACUTE ABDOMINAL FINDINGS. Labs Labs: Laboratory Results - last 24 hr 12/16/24 05:09 WBC 5.3 RBC 4.28 Hgb 11.5 L Hct 35.9 L MCV 83.9 MCH 26.9 MCHC 32.0 RDW 13.6 Plt Count 215 MPV 9.8 Immature Gran % (Auto) 0.6 H Neut % (Auto) 53.9 Lymph % (Auto) 32.0 [place] % (Auto) 7.9 Eos % (Auto) 4.5 H Baso % (Auto) 1.1 Lymph # (Auto) 1.70 [place] # (Auto) 0.4 Eos # (Auto) 0.2 Baso # (Auto) 0.1 Abs Immat Gran (auto) 0.03 Absolute Neuts (auto) 2.9 Absolute Nucleated RBC 0.000 Nucleated RBC % 0.0 Sodium 139 Potassium 3.7 Chloride 104 Carbon Dioxide 28 Anion Gap 7 BUN 7 Creatinine 0.62 L Estim Creat Clear Calc 106 Estimated GFR > 60 Glucose 124 H Calcium 8.9 Magnesium 2.1 Total Bilirubin 0.3 AST 18 ALT 15 Alkaline Phosphatase 73 Total Protein 6.9 Albumin 3.7
[2024-12-16] MEDS: valACYclovir HCL 500 MG TABLET 1000 MG PO (18:04)
--- NOTE | 2024-12-16 19:23 | PC.NURSE ---
Pt put self back to bed from wheelchair after being informed multiple times that she needed to have staff with her to assist back to bed. Pt was told by this nurse and 2 other staff members to call for help to return to bed safely. Upon entering patients room she had put herself back into bed. Pt given education on fall risk and the necessity to call ahead for help. Pt verbalized understanding.
[2024-12-16] MEDS: ZOLPIDEM TARTRATE (*CRX) 5 MG TABLET PO (21:52)
[2024-12-16] MEDS: diphenhydrAMINE HCl INJ 50 MG/ML VIAL 25 MG IV PUSH (21:53)
[2024-12-17 01:00] VITALS: PULSE 80; O2SAT 100
[2024-12-17 04:59] VITALS: PULSE 82; O2SAT 99
[2024-12-17 05:52] LABS: Basophils Absolute Auto 0.1 K/mm3 (0.0-0.1); Basophils Percent Auto 1.2 % (0.2-1.2); Eosinophils Absolute Auto 0.2 K/mm3 (0-0.3); Eosinophils Percent Auto 4.1 % (0-4.4); Hematocrit 37.2 % (37.0-47.0); Hemoglobin 11.8 g/dL (12.0-15.0); Immature Granulocyte Absolute 0.02 K/mm3 (0.00-0.031); Immature Granulocyte Percent A 0.3 % (0-0.5); Lymphocytes Percent Auto 30.8 % (18.3-44.2); Mean Corpuscular HGB Conc 31.7 g/dl (32-36); Mean Corpuscular Hemoglobin 26.6 pg (26-34); Mean Corpuscular Volume 83.8 fl (80-100); Mean Platelet Volume 9.6 fl (7.4-10.4); Monocytes Absolute Auto 0.5 K/mm3 (0.1-0.6); Monocytes Percent Auto 7.9 % (2.6-8.5); Neutrophils Absolute Auto 3.3 K/mm3 (1.3-6.7); Neutrophils Percent Auto 55.7 % (45.5-73.1); Platelet Count Result 228 k/mm3 (150-375); Red Blood Count 4.44 M/mm3 (4.2-5.4); Red Cell Distribution Width 13.7 % (11.5-14.5); White Blood Count 5.9 K/mm3 (4.5-10.0)
[2024-12-17 06:00] VITALS: BP 148/81; PULSE 79; RESP 16; TEMP 36.9; O2SAT 100
[2024-12-17] MEDS: ACETAMINOPHEN 325 MG TABLET 650 MG PO (06:32)
[2024-12-17 06:39] LABS: Alanine Aminotransferase 12 U/L (6-35); Albumin Level 3.5 g/dL (3.5-5.1); Alkaline Phosphatase 69 U/L (38-126); Anion Gap 9 mmol/L (4-12); Aspartate Amino Transferase 17 U/L (14-36); Bilirubin,Total 0.2 mg/dL (0.2-1.3); Blood Urea Nitrogen 11 mg/dL (7-17); Calcium 8.5 mg/dL (8.4-10.2); Carbon Dioxide 25 mmol/L (22-30); Chloride 105 mmol/L (98-107); Estimated CRCL calculation 85 ml/min; Estimated Glomerular Filt Rate > 60; Glucose 128 mg/dL (65-110); Magnesium 2.2 mg/dL (1.6-2.3); Potassium 3.6 mmol/L (3.4-5.0); Sodium 139 mmol/L (137-145); Total Protein 6.8 g/dL (6.3-8.2)
[2024-12-17] MEDS: ENOXAPARIN 40 MG/0.4 ML SYRINGE SUB-Q (09:28)
[2024-12-17] MEDS: valACYclovir HCL 500 MG TABLET 1000 MG PO (09:28)
[2024-12-17] MEDS: polyethylene glycoL 3350 17 GM POWD.PACK PO (09:28)
[2024-12-17 09:29] VITALS: PULSE 61
[2024-12-17] MEDS: FUROSEMIDE 20 MG TABLET BY MOUTH (09:29)
[2024-12-17] MEDS: OLANZapine 5 MG TABLET PO (09:29)
[2024-12-17] MEDS: LOSARTAN POTASSIUM 100 MG TABLET PO (09:29)
[2024-12-17] MEDS: DOCUSATE SODIUM 100 MG CAPSULE PO (09:29)
[2024-12-17] MEDS: SIMETHICONE 125 MG CHEW TAB PO (09:29)
[2024-12-17] MEDS: METOPROLOL SUCCINATE EXT REL 25 MG TABCR PO (09:29)
[2024-12-17] MEDS: ASPIRIN 81 MG ENTERIC TABLET PO (09:29)
[2024-12-17] MEDS: BISACODYL 5 MG TABLET EC PO (09:29)
[2024-12-17] MEDS: methocarbamoL 750 MG TABLET PO ×2 (09:29→12:20)
[2024-12-17] MEDS: ATORVASTATIN 10 MG TABLET PO (09:29)
[2024-12-17] MEDS: rOPINIRole HCL 1 MG TABLET PO (09:29)
[2024-12-17] MEDS: DICLOFENAC SODIUM 1% 100 GM GEL (*BKC) 1 APPLIC TOPICAL ×2 (09:32→12:20)
[2024-12-17] MEDS: diphenhydrAMINE HCl INJ 50 MG/ML VIAL 25 MG IV PUSH (09:33)
[2024-12-17] MEDS: levoFLOXacin 750 MG TABLET PO (09:50)
--- NOTE | 2024-12-17 12:41 | P.DS_ITS ---
DS: Admitting Diagnosis Discharge Date 12/17/2024 Admitting Diagnosis Left sided abdominal pain. DS: Discharge Diagnosis Discharge Diagnosis (1) Fecal impaction: Code(s): K56.41 - Fecal impaction Status: Acute (2) UTI (urinary tract infection): Code(s): N39.0 - Urinary tract infection, site not specified Status: Acute (3) Constipation: Code(s): K59.00 - Constipation, unspecified Status: Acute (4) Hypertension: Qualifiers: Hypertension type: primary hypertension Qualified Code(s): I10 - Essential (primary) hypertension Code(s): I10 - Essential (primary) hypertension Status: Chronic (5) Rash: Code(s): R21 - Rash and other nonspecific skin eruption Status: Acute (6) Depression with anxiety: Code(s): F41.8 - Other specified anxiety disorders Status: Acute DS: Summary Hospital Course Hospital Course: This is a 59-year-old female who is wheelchair-bound due to incomplete paraplegia with history of fecal impaction, irritable bowel, gastroesophageal reflux disease, hypertension, dyslipidemia, stroke, obstructive sleep apnea, depression, and anxiety who presented to the emergency department via private vehicle with complaints of left-sided abdominal pain. She has not had a decent bowel movement for about 11 days and she has tried wnmb-jlm-cxjrmoe medications without success. She presented with increasing left-sided abdominal cramping which has become quite intense. She does take narcotics for chronic pain and she takes senna/docusate sodium as needed but has fallen out of the habit of taking MiraLax daily. . She has not noticed a change in urine output from her urostomy. In the ED: Blood pressure was 191/84 on arrival. The remainder of her vital signs were stable. CMP and CBC were pretty unremarkable with the only outliers being a sodium of 136 and a random glucose of 145. Urinalysis was nitrate and leukocyte esterase positive with 51 to 100 WBC and 4+ bacteria. CT of the abdomen and pelvis showed no acute findings but did note constipation and ileal conduit with minimal fullness over the right renal pelvis. Attempts at disimpaction and enema were unsuccessful and she was admitted in this setting for further treatment. GI consulted and followed. Patient given * High dose PEG with electrolytes. 1 liter daily x 3 days. 250 ml every 1-1.5 hrs x 4 doses per day * Bisacodyl 5 mg daily * simethicone 125 mg QID Patient had multiple bowel movements. Repeat KUB with no acute abdominal findings. Patient discharged on bowel regimen and stressed importance of following. Urine culture grew Klebsiella oxytoca. UTI treated with antibiotics. Patient developed a rash that sample was obtained from and patient started on Valacyclovir. Patient to schedule a colonoscopy outpatient. Patient received PT. Status at Discharge Functional status at discharge: wheelchair bound Overall status at discharge: patient is progressing back to baseline Time Spent with Patient Time attestation: Total time spent providing and/or coordinating discharge services: Time spent: Greater than 30 minutes Exam Const: General: no acute distress and uncomfortable Other: Joints aching at a 6, patient feels from being in bed. Resp: Effort & Inspection: normal respiratory effort Auscultation: clear to auscultation bilaterally Cardio: Rate: regular rate Rhythm: regular rhythm GI: GI Palp: Yes Soft to palpation Auscultation: normal bowel sounds Skin: Other: Scattered round red rash that came up this afternoon some areas with vesicles in the center. Most area are on trunk with a few areas noted to left lateral leg. Slightly improved today. Extrem: Other: Incomplete paraplegia with slight contractures of the lower extremities. Psych: Mental Status: mental status grossly normal Affect: normal affect DS: Data Data Completed and Pending Labs on day of discharge: Labs from last 24 hours 12/17/24 12/16/24 05:11 15:48 WBC 5.9 RBC 4.44 Hgb 11.8 L Hct 37.2 MCV 83.8 MCH 26.6 MCHC 31.7 L RDW 13.7 Plt Count 228 MPV 9.6 Immature Gran % (Auto) 0.3 Neut % (Auto) 55.7 Lymph % (Auto) 30.8 Blanco % (Auto) 7.9 Eos % (Auto) 4.1 Baso % (Auto) 1.2 Lymph # (Auto) 1.80 Blanco # (Auto) 0.5 Eos # (Auto) 0.2 Baso # (Auto) 0.1 Abs Immat Gran (auto) 0.02 Absolute Neuts (auto) 3.3 Absolute Nucleated RBC 0.000 Nucleated RBC % 0.0 Sodium 139 Potassium 3.6 Chloride 105 Carbon Dioxide 25 Anion Gap 9 BUN 11 Creatinine 0.79 Estim Creat Clear Calc 85 Estimated GFR > 60 Glucose 128 H Calcium 8.5 Magnesium 2.2 Total Bilirubin 0.2 AST 17 ALT 12 Alkaline Phosphatase 69 Total Protein 6.8 Albumin 3.5 Herpes Virus Source Pending Herpes Simplex Culture Pending Discharge Plan Discharge Attending physician on discharge: Jona Comer Consulting providers: Hector Mcdowell; Alem Larios Discharging Clinician: Belkis Infante Anticipated Discharge Date/Time: 12/17/24 13:00 Patient Disposition: Home Activity: may shower and as tolerated Diet: high fiber Discharge Instructions: * Compete all doses of antibiotics. * Keep track of bowel movements. * Call and get appointment set up for colonoscopy. * Take blood pressure daily. Take recordings to doctors appointment. Call doctor if blood pressure stays above 140/90 an hour after taking medication. * Complete all doses of Valtrex. You may take allergy pill to help with itching. Call provider if rash worsens or becomes warm. Thank you for entrusting [facility] with your healthcare! Patient Instructions: Antibiotic Form, Constipation (DC), Urinary Tract Infection in Women (DC), High Fiber Diet (DC), Hypertension (DC), Fecal Impaction (GEN) Patient Language: Mohawk Stand Alone Forms: General Discharge Information Follow-up/Referrals: Panchito Walters DO [Primary Care Provider] - 1 Week Discharge Medications: New valacyclovir [Valtrex] 500 mg Tablet 1,000 mg PO Q12HR Qty: 36 0RF polyethylene glycol 3350 [Miralax] 17 gram/dose powder 17 g PO DAILY Qty: 850 0RF simethicone 125 mg tablet 125 mg PO QID PRN (Reason: abdominal distention) Qty: 30 0RF levofloxacin 750 mg tablet 750 mg PO DAILY Qty: 4 0RF Rx Instructions: Start taking on 12/18/2024 Continued metoprolol succinate 25 mg tablet extended release 24 hr 25 mg PO DAILY sennosides-docusate sodium [Senokot-S] 8.6-50 mg Tablet 1 tab-cap PO BID PRN (Reason: constipation) phenazopyridine [Pyridium] 200 mg tablet 200 mg PO TID Qty: 6 0RF acetaminophen 650 mg tablet extended release 650 mg PO Q8H PRN (Reason: pain) Qty: 30 0RF ibuprofen 600 mg tablet 600 mg PO TID PRN (Reason: pain) Qty: 30 0RF ropinirole 0.5 mg tablet 1 mg PO BID diclofenac sodium [Voltaren Arthritis Pain] 1 % gel 2 g topical QID Qty: 100 1RF Rx Instructions: apply to single elbow, wrist or hand; for hand includes palm/fingers/back of hand alprazolam 0.25 mg tablet 0.25 mg PO TID PRN (Reason: anxiety) Qty: 60 0RF olanzapine 5 mg tablet 5 mg PO DAILY Qty: 30 0RF zolpidem [Ambien] 5 mg tablet 5 mg PO QHS Qty: 30 0RF losartan 100 mg tablet 100 mg PO DAILY Qty: 90 1RF atorvastatin 10 mg tablet 10 mg PO DAILY Qty: 90 1RF aspirin [Adult Low Dose Aspirin] 81 mg tablet,delayed release (DR/EC) 81 mg PO DAILY Qty: 90 2RF ondansetron 4 mg tablet,disintegrating 4 mg PO Q8H PRN (Reason: nausea and vomiting) Qty: 20 0RF furosemide 20 mg tablet See Rx Instructions .ROUTE .COMPLEX Qty: 90 2RF Dose Instruction: 20 MG ORALLY EVERY MORNING Rx Instructions: 20 MG ORALLY EVERY MORNING methocarbamol 750 mg tablet 750 mg PO TID Qty: 90 2RF hydrocodone-acetaminophen 7.5-325 mg tablet 1 tablet PO Q8H PRN (Reason: pain) Qty: 30 0RF Ozempic 0.25 mg or 0.5 mg (2 mg/3 mL) pen injector 0.25 mg subcut WEEKLY Qty: 6 0RF Discontinued polyethylene glycol 3350 [Miralax] 17 gram Powder In Packet 17 g PO DAILY PRN (Reason: constipation) Date of admission: 12/15/24 15:12 Primary Care Provider: Panchito Walters Admitting Provider: Gerhard Carmona Attending physician on admission: Gerhard Carmona Condition: Improved Hospitalist MIPS Heart Failure (Exclusion) Patient has history of Heart Transplant or Left Ventricular Assistive Device?: No IF YES, STOP HERE Heart Failure (Qualifier) Patient has current or prior documentation of LVEF less than or equal to 40%, or mod/servere depressed LVSF?: No IF NO, STOP HERE
[2024-12-19 03:33] LABS: Source VESICLE FLUID
== END 2024-12-17 13:25 | disposition home or self-care (01) | DRG 389 ==
LOC: ANHED 16:09 → ANH3MED 16:19
PROVIDERS: Nurse Practitioner Family; Physician Assistant; Admitting Provider Internal Medicine; Emergency Provider Emergency Medicine; PCP Internal Medicine; Visit Provider Nurse Practitioner Family
DX: K56.41 Fecal impaction (principal); G82.22 Paraplegia, incomplete; Z99.3 Dependence on wheelchair; K58.9 Irritable bowel syndrome, unspecified; K21.9 Gastro-esophageal reflux disease without esophagitis; E78.5 Hyperlipidemia, unspecified; E66.9 Obesity, unspecified; F41.8 Other specified anxiety disorders; G47.00 Insomnia, unspecified; G47.33 Obstructive sleep apnea (adult) (pediatric); G89.29 Other chronic pain; I10 Essential (primary) hypertension; I48.0 Paroxysmal atrial fibrillation; R73.9 Hyperglycemia, unspecified; Z90.6 Acquired absence of other parts of urinary tract; Z90.49 Acquired absence of other specified parts of digestive tract; Z79.82 Long term (current) use of aspirin; Z79.85 Long-term (current) use of injectable non-insulin antidiabetic drugs; Z88.0 Allergy status to penicillin; Z68.33 Body mass index [BMI] 33.0-33.9, adult; Z86.0100 Personal history of colon polyps, unspecified; Z93.6 Other artificial openings of urinary tract status; Z86.73 Personal history of transient ischemic attack (TIA), and cerebral infarction without residual deficits
CPT/HCPCS: 36415; 74018; 74177; 80048; 80053; 81001; 83036; 83690; 83735; 84436; 84443; 85025; 85027; 87086; 87140; 87186; 87255; 96361; 96365; 96375; 96376; 97162; 99285; A9270; J0360; J0696; J1171; J1200; J1650; J1885; J1956; J2270; J2405; J7030; J7120; Q9967

== ENCOUNTER 2025-01-31 15:24 | Inpatient (IN) | payer MEDICARE, SELFPAY ==
--- NOTE | ~2025-01-31 | CT_ITS ---
EXAMINATION: CTA chest PE protocol DATE: 02/01/2025 0:36 CDT INDICATION: Chest pain with elevated d-dimer. TECHNIQUE: Computed tomographic angiography (CTA) of the chest was performed with 100 mL Omnipaque-35 0 intravenous contrast. The dose-length product was 1097.27 mGy-cm. Maximum intensity projection 3D-r econstructions of the aorta and other arteries were constructed by the technologist on a separate wor kstation. COMPARISON: None. FINDINGS/OBSERVATIONS: PULMONARY ARTERIES: No filling defect is identified within the main or proximal pulmonary artery. The main pulmonary artery is not enlarged. THORACIC AORTA: No aneurysmal dilatation or dissection is present. The great vessels are intact LUNGS: Trace right basilar atelectasis. There are of the bilateral lung amin are clear. MEDIASTINUM: No morphologically suspicious or pathologically enlarged lymph nodes are identified with in the mediastinum or bilateral axilla. BONES OF THE CHEST: No acute fracture. No significant degenerative disease. No lytic or blastic lesions. HEART: The heart is of normal size, without pericardial effusion. IMPRESSION: No pulmonary embolus. No thoracic aortic dissection. Trace bibasilar atelectasis. Reviewed, dictated and finalized at location A.
--- NOTE | ~2025-01-31 | XR_ITS ---
EXAMINATION: XR chest 2V DATE: 01/31/2025 16:41 INDICATION: Chest pain TECHNIQUE: frontal and lateral views of the chest were obtained. COMPARISON: Chest radiograph and CT dated 08/03/24 FINDINGS: Eventration of the anterior right hemidiaphragm. Calcified left lower lobe nodule along the apex of t he diaphragm consistent with old granulomatous disease. No other airspace opacities, pulmonary edema, pleural effusion or pneumothorax. The cardiomediastinal silhouette is normal. Spinal stimulator lead s project over the posterior aspect of the lower thoracic central canal with lead tips at the levels of inferior aspects of T9 and T11. Pedicle screws at L2 4 and more caudal nonvisualized posterior lum bar spinal fusion. Cholecystectomy clips the upper abdomen. Instrumented anterior spinal fusion at C6 -C7. IMPRESSION: 1. No acute cardiopulmonary disease. Reviewed, dictated and finalized at location A.
--- NOTE | ~2025-01-31 | CT_ITS ---
CLINICAL INDICATION: Left-sided abdominal pain COMPARISON: 12/13/2024 and dating back to 03/20/2023. TECHNIQUE: Multiple contiguous axial images of the abdomen and pelvis were performed following the ad ministration of with 100 mL Omnipaque-350 intravenous contrast The dose-length product (DLP) was 1373.86 mGy-cm. Automated exposure control and iterative reconstruction technique were employed. FINDINGS/OBSERVATIONS: Visualized lower thorax: Bulky calcification within the left lung base, likely granulomatous disease. The remainder of the bilateral lung bases are clear The heart is of normal size, without pericardial effusion. Liver: The liver demonstrates homogeneous enhancement and is not enlarged. Gallbladder and biliary system: The gallbladder is surgically absent. Pancreas: Redemonstration of well-circumscribed foci of decreased attenuation within the tail of the pancreas, unchanged from 03/20/2023. The remainder of the pancreas otherwise enhances homogeneously without ductal dilatation. Spleen: The spleen enhances homogeneously and is not enlarged. Kidneys: Redemonstration of mild right-sided hydronephrosis and mild right-sided hydroureter. The left kidney, and ureter are unremarkable. Adrenal glands: Unremarkable. Gastrointestinal tract: Colonic diverticulosis without surrounding inflammatory change. Fecal stasis within the colon. Mural thickening within the rectum. Appendix: The appendix is not definitively visualized, presumably surgically absent. Vasculature: Venatech IVC filter. Remainder of the vasculature is otherwise unremarkable. Lymph nodes: No pathologically enlarged or morphologically suspicious lymph nodes within the retroperitoneum or at the root of the mesentery. Pelvic structures: Ileal conduit is minimally distended, unchanged from prior. The uterus is surgically absent. Body wall and musculoskeletal: Urinary stoma, extending from the supraumbilical midline. 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 IMPRESSION: Mural thickening within the rectum, an interval change from prior. Redemonstration of mild hydronephrosis of the right kidney, unchanged from prior. Otherwise, no acute findings within the lower chest, abdomen or pelvis, as detailed above Reviewed, dictated and finalized at location A. IMPRESSION: Mural thickening within the rectum, an interval change from prior. Redemonstration of mild hydronephrosis of the right kidney, unchanged from prio r. Otherwise, no acute findings within the lower chest, abdomen or pelvis, as deta iled above
--- NOTE | ~2025-01-31 | CT_ITS ---
Non-contrast Head CT History: Dizziness Technique: Axial non-contrast imaging of the brain was performed. Dose reduction technique was used on this scan by utilizing automated exposure control and iterative reconstruction technique. The dose -length product (DLP) was 681.00 mGy-cm. Findings: There is no evidence of intracranial hemorrhage, mass lesion, or acute infarct. Brain par enchyma appears normal. The ventricles and subarachnoid spaces are normal in size. The calvarium ap pears normal. The visualized paranasal sinuses and mastoid air cells are clear. Impression: No significant abnormality seen. Reviewed, dictated and finalized at location . Impression: No significant abnormality seen.
--- NOTE | 2025-01-31 15:27 | ECG_ITS ---
Test Date: 2025-01-31 15:56:24 Measurements Intervals [place] Rate: 68 P: 42 PA: 177 QRS: 31 QRSD: 90 T: 32 QT: 406 QTc: 435 Interpretive Statements SINUS RHYTHM BORDERLINE ST ABNORMALITY- HIGH LATERAL LEADS BASELINE WANDER- V4-V6 BORDERLINE ECG Compared to ECG 08/02/2024 22:33:20 No significant changes Electronically Signed On 01-31-2025 16:50:41 CDT by Arjun Handley D.O.
--- OUTSIDE RECORDS SUMMARY | 2025-01-31 15:31 | XMS_ITS | Clinical Summary ---
Author Organization [facility] al Address [address] [place] [address] Care Team Providers Care School Bus Mechanic Name Role Phone Lidia Barajas MD [...] for pain 42 tablet 2 Active multivit iamvooik-pcbw-YL-c alcium (THERA-M) 9 mg iron-400 mcg tabletIndications: [...] (10/24/2021): Added automatically from request for surgery [id number] Postlaminectomy syndrome, lumbar region 10/25/19 Overview (10/24/2021): Added automatically from request for surgery [id number] Assessment & Plan (07/03/2022 3:48 PM FRUIT TESTER): Ms. Mcnulty is doing well following lumbar [...] (10/24/2021): Added automatically from request for surgery [id number] Other chest pain 01/19/2020 Assessment & Plan [...] need for exchange this admission Suprapubic catheter ([facility]) 11/16/2019 Essential hypertension 11/16/2019 Hypertensive urgency 11/16/2019 [...] (11/25/2019): Added automatically from request for surgery [id number] Chronic lumbar radiculopathy 01/21/2019 Chronic back pain 01/21/2019 Spinal stenosis of lumbar region with radiculopa thy 12/04/2018 Assessment & Plan (07/18/2021 10:23 AM FRUIT TESTER): Assessment Healed fusion L2-5 severe retrolisthesis with [...] (06/18/2018): Added automatically from request for surgery [id number] Assessment & Plan (12/04/2018 3:42 PM CDT): Healing fusion C6-7 Continued observation. Assessment & Plan (08/12/2018 10:35 AM FRUIT TESTER): Assessment Healing fusion C6-7 Plan Talked about do's and don'ts she is still to maintain her initial restrictions and return in 6 weeks for an x-ray Assessment & Plan (06/25/2018 2:43 PM FRUIT TESTER): Angelina was recently hospitalized at [facility] and diagnosed with a disc osteophyte [...] (06/18/2018): Added automatically from request for surgery [id number] Cervical pain (neck) 06/13/2018 Asthma 11/13/2013 Overview [...] Inflammatory bowel disease Neuropathy Traumatic subarachnoid hemorrhage 2018 Paraplegia Suprapubic catheter (HCC) Bladder tumor Acute CVA (cerebrovascular a ccident) ([facility]) 12/27/2021 Family History Medical History Relation Name [...] often do you attend chur ch or latter day services? More than 4 times per year 03/07/2022 Do you belong to any clubs o r organizations such as latter day groups, unions, fraternal or athletic groups, or [...] place to sleep or slept in a halfway (including now)? No 03/07/2022 Comments No Sex and Gender Information Value Date Recorded Sex Assigned at Not on file Legal Sex Female 11:49 PM FRUIT TESTER Gender Identity Not on file Sexual [...] 2024 07/01/2021, 12/13/2020, 11/20/2020 Influenza Vaccine (#1) 2025 2, 07/01/2021, 03/22/2020, Additional history exists Colon Cancer Screening-Colonoscopy 11/28/2029 11/29/2019 Hepatitis C Screening Completed 11/17/2019 Colon Cancer Screening-CT Colonography Discontinued 11/29/2019 Colon Cancer Screening-DNA Stool Discontinued 11/29/19 Colon Cancer Screening-FIT Discontinued 11/29/2019 Colon Cancer Screening-Sigmoidoscopy Discontinued 11/29/2019 Goals Goal Patient Goal Type Associated Problems Recent Progress Patient-Stated? Author CCM Chronic Pain Care Plan Chronic Care Management Worsening( 10:12 AM FRUIT TESTER) Milvia Mireles RN Note: Problem: Chronic Pain Goals: 1. Minimize further functional decline 2. Maximize quality of life 3. Control pain Strategies: - Activity/exercise program recommendation - Conservative stepwise pain medicine strategy with multi-disciplinary approach - Recommend healthy lifestyle strategies and compensatory methods as needed Medical Devices Implanted Type Area Director Product Safety Device Identifier Shelf Expiration Date Model / Serial / Lot Spinal Cord Stimulator-2016 Implanted:01/28 (Quantity not on file) Spinal Cord Stimulator Left: Hip Nevro Spinal Cord Stimulation System [id number] / / Description:Closed Bore only 1.5T or [...] ensure it has returned to pre-MRI settings. [employer]erc[employer] Inc 700-025 I Factor Allograft Putty Syringe Graft 2.5cc Bone - [id number] Implanted:Qty: 1 on 07/03/2018 by Zachary Rothman MD at [facility] N/A: Spine Cervical Cerapedics Inc 03/29/2021 700-025 / / [id number] Plate 1-Level 14 Mm Cervical - [id number] Implanted:Qty: 1 on 07/03/2018 by Zachary Rothman MD at [facility] N/A: Spine Cervical Zavation Llc 30-0114 / / Screw 4.0x14mm Self Drilling Variable - [id number] Implanted:Qty: 4 on 07/03/2018 by Zachary Rothman MD at [facility] N/A: Spine Cervical [employer] 31-4014 / / Cage Spinal [id number] 7 Degree Porous Coated Latex Free - [id number] Implanted:Qty: 1 on 07/03/2018 by Zachary Rothman MD at [facility] N/A: Spine Cervical Spinal Elements [id number] / / Depuy Synthes Spine [id number] Substitute Bone Graft Fibergraft Gps Medium Putty 6cc - [id number] Implanted:Qty: 1 on 11/29/2021 by Dave Louis MD at [facility] N/A: Lumbar-Sa cral Spine Depuy Synthes Spine [id number] 10/18/2023 [id number] / / [id number] Bacterin International Inc Osteosponge Allograft Chips Radiolucent Thk4-10mm Graft 30cc Bone [id number] - [id number] - [id number] Implanted:Qty: 1 on 11/29/2021 by Dave Louis MD at [facility] N/A: Lumbar-Sa cral Spine [employer] Inc 10/14/2024 [id number] / [id number] / Depuy Synthes Spine Cage Post Spinal 4d Plif Ti [id number] - [id number] Implanted:Qty: 1 on 11/29/2021 by Dave Louis MD at [facility] N/A: Lumbar-Sa cral Spine Depuy Synthes Spine [id number] 07/30/2024 [id number] / / [id number] Depuy Synthes Spine Expedium 5.5mm 80mm Line Prebent Rodney Spinal Titanium Nonsterile [id number] - [id number] Implanted:Qty: 1 on 11/29/2021 by Dave Louis MD at [facility] N/A: Lumbar-Sa cral Spine Depuy Synthes Spine [id number] / / Depuy Synthes Spine Expedium 5.5mm 85mm Line Prebent Rodney Spinal Titanium Nonsterile [id number] - [id number] Implanted:Qty: 1 on 11/29/2021 by Dave Louis MD at [facility] N/A: Lumbar-Sa cral Spine Depuy Synthes Spine [id number] / / Depuy Synthes Spine Expedium 5.5mm 45mm Polyaxial Spine Screw Bone Titanium 5.5mm Rodney [id number] - [id number] Implanted:Qty: 2 on 11/29/2021 by Dave Louis MD at [facility] N/A: Lumbar-Sa cral Spine Depuy Synthes Spine [id number] / / Depuy Synthes Spine Expedium 6.5mm 45mm Polyaxial Spine Screw Bone Titanium 5.5mm Rodney [id number] - [id number] Implanted:Qty: 3 on 11/29/2021 by Dave Louis MD at [facility] N/A: Lumbar-Sa cral Spine Depuy Synthes Spine [id number] / / Depuy Synthes Spine Expedium 1 Inner Monoaxial Spine Screw Set Titanium [id number] - [id number] Implanted:Qty: 6 on 11/29/2021 by Dave Louis MD at [facility] N/A: Lumbar-Sa cral Spine Depuy Synthes Spine [id number] / / Depuy Synthes Spine Expedium 7mm 45mm 1 Innie Polyaxial Spine Screw Bone Titanium [id number] - [id number] Implanted:Qty: 1 on 11/29/2021 by Dave Louis MD at [facility] N/A: Lumbar-Sa cral Spine Depuy Synthes Spine [id number] / / Procedures Procedure Name Priority Date/Time [...] 11/29/2019 8:04 AM Admit Type: Inpatient Room: [facility] 4 Date of : 1965 Instrument Name: [...] the bowel preparation was evaluated usingthe BBPS (Miller Bowel Preparation Scale) with scores of: Right [...] Hep A IgM Nonreactive Nonreactive [facility] Comment: Interpretive Data: If Hep A IgM Ab is reported as Equivocal, a new sample should be drawn in two weeks for testing. Current interpretive data was last revised on 19. Hep B core IgM Nonreactive Nonreactive [facility] Comment: Interpretive Data If HepB Core IgM Ab is reported as Equivocal, a new sample should be drawn in two weeks for testing. Current interpretive data was last revised on 19. Hep C Ab Nonreactive Nonreactive [facility] Comment: Interpretive Data Nonreactive: Antibodies [...] revised on 2019. HepBsAg Nonreactive Nonreactive [facility] Blood specimen (specimen) 11/17/2019 4:13 AM CDT 11/17/2019 4:31 AM CDT [facility] MICROBIOLOGY - GENERAL ORDERABLES Final Result [facility] [address] Department [place] [address] from Last 3 Months or Most Recently Relevant to Health Maintenance Insurance UHC MEDICARE ADVANTAGE [facility] MEDICARE Address: [address] [address] [place] [address] [facility] UHC MEDICARE ADVANTAGE [facility] MEDICARE Address: [address] [address] [place] [address] Advance Directives For more information, please contact: [phone] Documents on File Type Date Recorded Patient Real Estate Recruiter Expl anation Power of Chairman Of The Board 11/29/2021 11:46 AM * Full Code (Latest [...] First Alternate Health Care Agent Care Teams School Bus Mechanic Relationship Specialty Start Date End Date Ab Melara MD [address] [id number] PCP - General Family Medicine 07/16/21 Lidia Barajas MD Anesthesiologist Anesthesiology 01/13/20
--- OUTSIDE RECORDS SUMMARY | 2025-01-31 15:31 | XMS_ITS | Clinical Summary ---
Author Organization [facility] Address [address] [place] [address] Care Team Providers Care Waste Oil Pumper Name Role Phone Unavailable Primary Care Provider [...] Comments Blood Pressure 152/77 05/21/2019 8:00 AM BLACKJACK DEALER Pulse 75 05/21/2019 8:00 AM BLACKJACK DEALER Temperature 36.3 C (97.3 F) 05/21/2019 8:00 AM BLACKJACK DEALER Respiratory Rate 18 05/21/2019 8:00 AM BLACKJACK DEALER Oxygen Saturation 98% 05/21/2019 8:00 AM BLACKJACK DEALER Inhaled Oxygen Concentration - - Weight 108.9 kg (240 lb 1.6 oz) 05/09/2019 6:52 AM BLACKJACK DEALER Height 172.7 cm (5' 8) 04/18/2019 12:2 3 AM CDT Body Mass Index 36.51 04/18/2019 12:23 AM CDT Plan of Treatment Health Maintenance Due Date Last Done Comments CT Colonography 1966 Colonoscopy 1966 Colorectal Cancer Screening 1966 FIT-DNA (Cologuard) 1966 FIT 1966 FOBT 1966 HPV/PAP 1966 Sigmoidoscopy 1966 Annual Visit Topic 09/27/1967 MMR Vaccines (1 of 1 - Stand gorge series) 09/27/1967 Hepatitis C Screening 1984 DTaP/Tdap/Td Vaccines (1 - Tdap) 1985 Hepatitis B Vaccines (1 of 3 - 19+ 3-dose series) 1985 Pap Smear 09/27/1987 Cervical Cancer Screening 1996 HPV/Cotest 1996 HPV 1996 Mammogram 2006 HIB Vaccines Aged Out No longer eligi ble based on patient's age to complete this topic HPV Vaccines Aged Out No longer eligi ble based on patient's age to complete this topic Hepatitis A Vaccines Aged Out No long er eligible based on patient's age to complete this topic IPV Vaccines Aged Out No longer eligi ble based on patient's age to complete this topic Meningococcal Vaccine Aged Out No fouzia sailaja eligible based on patient's age to complete this topic Pneumococcal Vaccine: Pediat rics (0 to 5 years) and At-Risk Patients (6 to 64 Years) Aged Out No longer eligible b ased on patient's age to complete this topic Advance Directives * Full Resuscitation (Latest Code Status on File) Date Activated Date Inactivated Comments 04/17/2019 6:55 PM 05/21/2019 6:27 PM * Full Resuscitation Date Activated Date Inactivated Comments 04/12/2019 3:46 PM 04/13/2019 7:31 PM
--- OUTSIDE RECORDS SUMMARY | 2025-01-31 15:31 | XMS_ITS | Encounter Summary ---
Author Organization [facility] Address [address] [place] [address] Care Team Providers Care Welding Process Engineer Name Role Phone Shilpa Frazier DO Primary Care Provider [phone] Lidia Barajas MD Unavailable Shilpa Gandhi MD Unavailable Massiel Melara MD Primary Care Provider [phone] Shilpa Frazier DO Primary Care Provider [phone] Iron Galindo PA-C Primary Care Provide r Cresencio Ghosh MD Unavailable [phone] Cresencio Ghosh MD Unavailable [phone] Cresencio Ghosh MD Unavailable [phone] Encounter Details Date Type Department Care Team (Late st Contact Info) Description 01/23/2015 Therapy Visit [facility] Sunny Reynoso MD [address] [address] Social History Tobacco Use Types Packs/Day Years Used Date Smoking Tobacco: Never Alcohol Use Standard Drinks/Week Comments Yes 0 (1 standard drink = 0.6 oz pur e alcohol) 1-2 year Comments Unknown Sex and Gender Information Value Date Recorded Sex Assigned at Not on file Legal Sex Female 6:02 AM TRICOT KNITTING MACHINE OPERATOR Gender Identity Not on file [...] NO NEED FOR ISOLATION AT THIS TIME; SENIOR INTERIOR DESIGNER INF PREV [id number] 10/07/2019 10/07/2019 09/05/19 8:37 AM TRICOT KNITTING MACHINE OPERATOR MRSA 10/07/2019 10/07/2019 01/29/2020 8:33 AM CDT MRSA 01/28/2020 01/28/2020 03/20/2020 7:45 AM CDT COVID-19 Under Investigation 04/06/2020 04/08/2020 04/09/2020 5:20 AM CDT MRSA 04/11/2020 04/11/2020 12/25/2020 9:00 AM CDT COVID-19 Under Investigation 08/07/2020 08/07/2020 08/08/2020 3:45 PM TRICOT KNITTING MACHINE OPERATOR COVID-19 Under Investigation 08/11/2020 08/11/2020 08/12/2020 4:08 AM TRICOT KNITTING MACHINE OPERATOR MRSA 05/13/2021 02/05/2022 09/04/2022 8:37 AM TRICOT KNITTING MACHINE OPERATOR MRSA Hx 09/04/2022 09/04/2022 MDRO Comment:04/01/23 MDRO resolved, ES 02/23/2023 02/23/20232022 7:16 AM CDT MDRO Hx 04/01/2023 04/01/2023 MDRO 05/08/2023 05/08/2023 documented as of this encounter Care Teams Welding Process Engineer Relationship Specialty Start Date End Date Shilpa Frazier DO [address] [facility] [address] [place] [address] PCP - General Family Medicine 08/06/17 07/31/20 Massiel Melara MD [address] [place] [address] PCP - General Family Medicine 08/01/20 10/01/20 Shilpa Frazier DO [address] [facility] [address] [place] [address] PCP - General Family Medicine 10/02/20 10/03/20 Iron Galindo PA-C [address] [address] [address] [place], [place] [id number] PCP - General Physician Reheater 02/12/23 Cresencio Ghosh MD [address] [place] [address] PCP - Attributed-[facility] P4 12/29/23 09/14/24 Cresencio Ghosh MD [address] [place] [address] PCP - Attributed-[facility] P4 10/28/24 Lidia Barajas MD [address] [facility] [address] Anesthesiology-Pain Management 06/03/19 Shilpa Gandhi MD [address] [place] [address] Oncology 06/03/19 Cresencio Ghosh MD [address] [place] [address] Internal Medicine Sleep Medicine 09/29/24 documented as of this encounter
--- OUTSIDE RECORDS SUMMARY | 2025-01-31 15:31 | XMS_ITS | Encounter Summary ---
Author Organization [facility] Address [address] [place] [address] Care Team Providers Care Power Digger Operator Name Role Phone Fiordaliza Snell MD Primary Care Provider Encounter Details Date Type Department Care Team (Latest Contact Info) Description 11/13/2004 Outpatient Historical HIS [facility] RONALD Garcia, Anjali Gupta MD NO ADDRESS ON FILE LUMP OR MASS IN BREAST (Primary Dx) Social History Tobacco Use Types Packs/Day Years Used Date Smoking Tobacco: Never Assessed Comments Unknown Sex and Gender Information Value Date Recorded Sex Assigned at Not on file Legal Sex Female 2:43 AM CELLULAR TOWER CLIMBER Gender Identity Not on file Sexual Orientation Not on file documented as of this encounter Plan of Treatment Not on file documented as of this encounter Visit Diagnoses Diagnosis Lump or mass in breast- Primary documented in this encounter Additional Health Concerns Infection Onset Date Last Indicated Resolved Time R/O COVID-19 07/02/2020 07/02/2020 07/02/2020 8:53 PM CELLULAR TOWER CLIMBER MRSA Comment:Resolved per Type and Duration of Precautions Recommended for Selected Infections and Conditions document 2023 update 07/02/2020 07/02/2020 03/16/20 24 10:58 AM CDT R/O COVID-19 07/10/2020 07/10/2020 07/10/2020 5:01 PM CELLULAR TOWER CLIMBER documented as of this encounter Care Teams Power Digger Operator Relationship Specialty Start Date End Date Fiordaliza Snell MD PCP - General Family Practice 09/09/22 documented as of this encounter
--- OUTSIDE RECORDS SUMMARY | 2025-01-31 15:31 | XMS_ITS | Clinical Summary ---
Author Organization [facility] Address [address] [place] [address] Care Team Providers Care Vice President Mission Integration Name Role Phone Lidia Barajas MD Unavailable Shilpa Gandhi MD Unavailable Iron Galindo PA-C Primary Care Provide r Cresencio Ghosh MD Unavailable Cresencio Ghosh MD Unavailable Source Comments [facility],non-owned Affiliates and Associated Physician Practices is amultiple site organization consisting of ambulatory clinics and hospital sitesin [place], [place], [place] and [place]. This disclosure is being madepursuant to the Care Everywhere program and may not contain all information available regarding this patient. Last updated 18.[facility] Allergies Active Allergy Reactions Criticality Noted Date [...] (spasms) 90 tablet 2 3 Active Nystop 192773 UNIT/GM powder Apply to affected area 2 [...] Snoring 02/16/2020 03/16/2024 Fall 01/14/2009 03/04/2009 Immunizations Immunization Administration Dates Next Due INFLUENZA [...] care, and heating? Not very hard 04/02/2023 [facility] of Occupat ional Health - Occupational Stress [...] in a fdc (including now)? No 04/02/2023 Comments No Sex and Gender Information Value Date Recorded Sex Assigned at Not on file Legal Sex Female 6:02 AM AUTOMOTIVE VEHICLE INSPECTOR Gender Identity Not on file Sexual Orientation Not on file Occupation Industry Job Start Date Job End Date Disabled Not on file Not on file Not on file Last Filed Vital Signs Vital Sign Reading Time Taken Comments Blood Pressure 157/91 05/07/2023 9:23 AM AUTOMOTIVE VEHICLE INSPECTOR Pulse 86 05/07/2023 9:23 AM AUTOMOTIVE VEHICLE INSPECTOR Temperature 36.3 C (97.3 F) 05/07/2023 9:23 AM AUTOMOTIVE VEHICLE INSPECTOR Respiratory Rate 18 04/02/2023 3:00 PM CDT Oxygen Saturation 95% 05/07/2023 9:23 AM AUTOMOTIVE VEHICLE INSPECTOR Inhaled Oxygen Concentration 97% 02/21/2021 1 0:15 [...] exists Colorectal Cancer Screening 11/28/2024 INFLUENZA VACCINE (#1) 2025 2, 07/01/2021, 03/22/2020, Additional history exists SCREENING FOR [...] < 140/90 Blood Pressure 157/91(2022 9:23 AM AUTOMOTIVE VEHICLE INSPECTOR) No Sierra Steiner Yearly PCP visit Lifestyle No White, Ava A Have labs drawn Lifestyle No White, Ava A Take recommended medication(s) Lifestyle No White, Ava A Use safety retraint in car Lifestyle No White, Ava A Complete Health Maintenance Screenings Lifestyle No White, Ava A Medical Devices Implanted Type Area Lumber Hacker Device Identifier Shelf Expiration Date Model / Serial / Lot Nevro Neurostimulator Senza [id number] (Implanted 2016) Floseal Hemostatic Matrix Implanted:Qty: 1 on 04/02/2019 by Maicol Mcneil DO at [facility] N/A: Spine [employer] 08/10/2020 [id number] / / [id number] Graft Tissue Drgn + Bvn Clgn Mtrx 1x1in Implanted:Qty: 1 on 04/02/2019 by Maicol Mcneil DO at [facility] N/A: Spine [employer] 04/29/2021 [id number] / / [id number] Seal Tisseel Prima 1 Prefil Frz 4ml - [id number] Implanted:Qty: 1 on 04/02/2019 by Maicol Mcneil DO at [facility] N/A: Spine [employer] 08/27/2020 [id number] / [id number] / [id number] Impl Inj 1ml Coaptite Syr Bulk Agnt Implanted:Qty: 2 on 04/11/2020 by Dave Aparicio MD at [facility] N/A: Bladder [employer]im[employer] 10/25/2022 [id number] / / [id number] Impl Inj 1ml Coaptite Syr Bulk Agnt Implanted:Qty: 2 on 02/05/2022 by Dave Aparicio MD at [facility] Bladder [employer] 10/16/2024 [id number] / / [id number] Stent Uret 7fr 80cm Str Cls Tip Llok Implanted:Qty: 1 on 09/03/2022 by Nel Cerna DO at [facility] Ureter [employer] 12/23/2025 [id number] / / [id number] Description:bilateral ureter s Procedures Procedure Name Priority [...] 7 - 26 mg/dL 04/02/2023 3:07 AM [facility] Creatinine 0.69 0.56 - 0.96 mg/dL 04/02/2023 3:07 AM [facility] Sodium 133(L) 136 - 145 mmol/L 04/02/2023 3:07 AM [facility] Potassium 3.9 3.5 - 4.5 mmol/L 04/02/2023 3:07 AM [facility] Chloride 102 98 - 107 mmol/L 04/02/2023 3:07 AM [facility] CO2 26 22 - 29 mmol/L 04/02/2023 3:07 AM [facility] Glucose 122(H) 70 - 115 mg/dL 04/02/2023 3:07 AM [facility] Calcium 8.3(L) 8.4 - 10.2 mg/dL 04/02/2023 3:07 AM [facility] Anion Gap 5(L) 6 - 16 04/02/2023 3:07 AM [facility] BUN/Creatinine Ratio 23 7 - 23 04/02/2023 3:07 AM [facility] Osmolality Calculated 278 275 - 295 mOsm/kg 04/02/2023 3:07 AM [facility] eGFR by CKD-EPI >90 >=90 mL/min/1.7 3 m2 04/02/2023 3:07 AM CDT [facility] Blood BLOOD SPECIMEN / Unknown Lab Venipuncture / Unknown 04/02/2023 2:31 AM CDT 04/02/2023 2:39 AM CDT us Missy Sutherland MD LAB - CHEMISTRY ORDERABLES Final Result [address] [address], [facility] [phone] * ENDOSCOPY, COLON, SCREENING (11/29/2019) us Provider [...] patient. [facility] Breast Care utilizes [facility] as a reminder system to notify patients of their next recommended mammogram. Narrative 09/23/2017 9:22 AM CDT EXAMINATION: Digital screening mammogram on 09/18/2017. Low-dose full-field digital breast tomosynthesis examination was performed with synthetic 2D images and 3D acquisitions. Computer assisted detection was utilized. PRIOR: Mammogram from [facility] on 11/13/2004. BREAST PARENCHYMAL DENSITY: The breasts are almost entirely fatty. RISK ASSESSMENT CALCULATION: Based on the information provided by your patient, her lifetime risk of breast cancer is average (<15%). Additional quantitative risk model data and patient history details have been scanned as a document/letter in [facility] electronic medical record (media tab). Please [...] Hx 04/01/2023 04/01/2023 MDRO 05/08/2023 05/08/2023 [place] [address] [employer] [facility] [place] [address] [place] [address] [facility] [place] [address] Advance Directives Documents on File Type Date Recorded Patient Cantilever Crane Operator Expl anation Adv Directive/Living Will/POA 09/16/2022 3:23 [...] 4:01 AM 05/11/2020 8:00 PM Care Teams Vice President Mission Integration Relationship Specialty Start Date End Date Iron Galindo PA-C [address] [facility] [address] [place] [address] PCP - General Physician Pilot Instructor 02/12/23 Cresencio Ghosh MD [address] [facility] [address] [place] [address] PCP - Attributed-[facility] [place] ST[facility] P4P 10/28/24 Lidia Barajas MD [facility] [facility], [address] Anesthesiology-Pain Management 06/03/19 Shilpa Gandhi MD [address] [facility] [address] [place] [address] Oncology 06/03/19 Cresencio Ghosh MD [address] [place] [address] Internal Medicine Sleep Medicine 09/29/24
--- OUTSIDE RECORDS SUMMARY | 2025-01-31 15:31 | XMS_ITS | Encounter Summary ---
Author Organization [facility] Address [address] [place] [address] Care Team Providers Care Vacuum Repairer Name Role Phone Fiordaliza Snell MD [...] on file Legal Sex Female 2:43 AM PAINT GRINDER Gender Identity Not on file Sexual Orientation Not on file documented as of this encounter Plan of Treatment Not on file documented as of this encounter Visit Diagnoses Diagnosis Other and unspecified ovarian cyst- Primary documented in this encounter Additional Health Concerns Infection Onset Date Last Indicated Resolved Time R/O COVID-19 07/02/2020 07/02/2020 07/02/2020 8:53 PM PAINT GRINDER MRSA Comment:Resolved per Type and Duration of Precautions Recommended for Selected Infections and Conditions document 2023 update 07/02/2020 07/02/2020 03/16/20 24 10:58 AM CDT R/O COVID-19 07/10/2020 07/10/2020 07/10/2020 5:01 PM PAINT GRINDER documented as of this encounter Care Teams Vacuum Repairer Relationship Specialty Start Date End Date Fiordaliza Snell MD PCP - General Family Practice 09/09/22 documented as of this encounter
--- OUTSIDE RECORDS SUMMARY | 2025-01-31 15:31 | XMS_ITS | Encounter Summary ---
Author Organization [facility] Address [address] [place] [address] Care Team Providers Care Collar Sewer Name Role Phone Fiordaliza Snell MD Primary Care Provider Encounter Details Date Type Department Care Team (Late st Contact Info) Description 04/18/2003 Emergency [facility] Otilia Rose MD [facility] [place] [place] [address] Er, Authorized P NO ADDRESS ON FILE ABDOMINAL PAIN RLQ (Primary Dx) Social History Tobacco Use Types Packs/Day Years Used Date Smoking Tobacco: Never Assessed Comments Unknown Sex and Gender Information Value Date Recorded Sex Assigned at Not on file Legal Sex Female 2:43 AM INDIGO MIXER Gender Identity Not on file Sexual Orientation Not on file documented as of this encounter Plan of Treatment Not on file documented as of this encounter Visit Diagnoses Diagnosis Abdominal pain, right lower quadrant- Primary documented in this encounter Additional Health Concerns Infection Onset Date Last Indicated Resolved Time R/O COVID-19 07/02/2020 07/02/2020 07/02/2020 8:53 PM INDIGO MIXER MRSA Comment:Resolved per Type and Duration of Precautions Recommended for Selected Infections and Conditions document 2023 update 07/02/2020 07/02/2020 03/16/20 24 10:58 AM CDT R/O COVID-19 07/10/2020 07/10/2020 07/10/2020 5:01 PM INDIGO MIXER documented as of this encounter Care Teams Collar Sewer Relationship Specialty Start Date End Date Fiordaliza Snell MD PCP - General Family Practice 09/09/22 documented as of this encounter
--- OUTSIDE RECORDS SUMMARY | 2025-01-31 15:31 | XMS_ITS | Patient Health Record ---
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 Problem Lumbosacral radiculopathy (6672284) Radiculopathy, lumbosacral region (M54.17) Active confirmed Plan Of Treatment No Information Insurance Providers Payer Name Payer Address Payer Phone Subscriber Number Group Number Insured Name Patient Relationship to Insured Coverage Start Date Coverage End Date [facility] [address] [place] [address] [id number] Angelina Mcnulty Self - patient is the insured Medical (General) History Medical History History ICD Code HBP heart attack osteoarthritis fibromyalgia urinary incontinence headaches migraines stroke nerve damage IBS asthma chronic bronchitis pneumonia depression anxiety Surgical History Surgery Date(Month/Year) spine fusion & stimulator 2004 spine fusion 2006 spine fusion 2021
--- OUTSIDE RECORDS SUMMARY | 2025-01-31 15:31 | XMS_ITS | Encounter Summary ---
Author Organization [facility] Address [address] [place] [address] Care Team Providers Care Steam Plant Operator Name Role Phone Fiordaliza Snell MD Primary Care Provider Encounter Details Date Type Department Care Team (Late st Contact Info) Description 05/06/2001 Emergency [facility] EM[facility] Pratik Jules MD [facility] [place] [address] Er, Authorized P NO ADDRESS ON FILE ABDOMINAL PAIN OTHER SPEC SITE (Primary Dx) Social History Tobacco Use Types Packs/Day Years Used Date Smoking Tobacco: Never Assessed Comments Unknown Sex and Gender Information Value Date Recorded Sex Assigned at Not on file Legal Sex Female 2:43 AM HI LOW TRUCK DRIVER Gender Identity Not on file Sexual Orientation Not on file documented as of this encounter Plan of Treatment Not on file documented as of this encounter Visit Diagnoses Diagnosis Abdominal pain, other specified site- Primary documented in this encounter Additional Health Concerns Infection Onset Date Last Indicated Resolved Time R/O COVID-19 07/02/2020 07/02/2020 07/02/2020 8:53 PM HI LOW TRUCK DRIVER MRSA Comment:Resolved per Type and Duration of Precautions Recommended for Selected Infections and Conditions document 2023 update 07/02/2020 07/02/2020 03/16/20 24 10:58 AM CDT R/O COVID-19 07/10/2020 07/10/2020 07/10/2020 5:01 PM HI LOW TRUCK DRIVER documented as of this encounter Care Teams Steam Plant Operator Relationship Specialty Start Date End Date Fiordaliza Snell MD PCP - General Family Practice 09/09/22 documented as of this encounter
--- OUTSIDE RECORDS SUMMARY | 2025-01-31 15:31 | XMS_ITS | Encounter Summary ---
Author Organization [facility] Address [address] [place] [address] Care Team Providers Care Printer Slotter Helper Name Role Phone Fiordaliza Snell MD Primary Care Provider Encounter Details Date Type Department Care Team (Late st Contact Info) Description 10/10/2003 Emergency [facility] EM[facility]Y [facility] Franki Grimes DO [address] [place] [address] Er, Authorized P NO ADDRESS ON FILE LUMBAGO (Primary Dx) Social History Tobacco Use Types Packs/Day Years Used Date Smoking Tobacco: Never Assessed Comments Unknown Sex and Gender Information Value Date Recorded Sex Assigned at Not on file Legal Sex Female 2:43 AM YARDING SUPERVISOR Gender Identity Not on file Sexual Orientation Not on file documented as of this encounter Plan of Treatment Not on file documented as of this encounter Visit Diagnoses Diagnosis Lumbago- Primary documented in this encounter Additional Health Concerns Infection Onset Date Last Indicated Resolved Time R/O COVID-19 07/02/2020 07/02/2020 07/02/2020 8:53 PM YARDING SUPERVISOR MRSA Comment:Resolved per Type and Duration of Precautions Recommended for Selected Infections and Conditions document 2023 update 07/02/2020 07/02/2020 03/16/20 24 10:58 AM CDT R/O COVID-19 07/10/2020 07/10/2020 07/10/2020 5:01 PM YARDING SUPERVISOR documented as of this encounter Care Teams Printer Slotter Helper Relationship Specialty Start Date End Date Fiordaliza Snell MD PCP - General Family Practice 09/09/22 documented as of this encounter
--- OUTSIDE RECORDS SUMMARY | 2025-01-31 15:31 | XMS_ITS | Encounter Summary ---
Author Organization [facility] Healthcare Address [address] [place] [address] Care Team Providers Care Data Control Clerk Name Role Phone Unknown, Notinfile Primary Care Provider Unavail able Shilpa Frazier DO Primary Care Provider Lidia Barajas MD Unavailable Ab Melara MD Primary Care Provid er Encounter Details Date Type Department Care Team (Late st Contact Info) Description 04/07/2018 Telephone [facility] [address] [place] [address] Kate Johnson, RT Social History Tobacco Use Types Packs/Day Years Used Date Smoking Tobacco: Never Smokeless Tobacco: Never Alcohol Use Standard Drinks/Week Comments No 0 (1 standard drink = 0.6 oz pur e alcohol) Comments No Sex and Gender Information Value Date Recorded Sex Assigned at Not on file Legal Sex Female 11:49 PM ORTHOPAEDIC PHYSICIAN ASSISTANT Gender Identity Not on file Sexual [...] DT MRSA 12/27/2021 03/06/2022 09/02/2022 3:05 AM ORTHOPAEDIC PHYSICIAN ASSISTANT documented as of this encounter Care Teams Data Control Clerk Relationship Specialty Start Date End Date Unknown, Notinfile PCP - General 08/28/17 06/11/18 Shilpa Frazier DO PCP - General 06/12/18 07/15/21 Ab Melara MD [address] [address] PCP - General Family Medicine 07/16/21 Lidia Barajas MD Anesthesiologist Anesthesiology 01/13/20 documented as of this encounter
--- OUTSIDE RECORDS SUMMARY | 2025-01-31 15:31 | XMS_ITS | Encounter Summary ---
Author Organization [facility] Healthcare Address [address] [place] [address] Care Team Providers Care Voice Engineer Name Role Phone Shilpa Frazier DO Primary Care Provider Lidia Barajas MD Unavailable Ab Melara MD Primary Care Provid er Encounter Details Date Type Department Care Team (Late st Contact Info) Description 06/15/2018 Telephone [facility] [address] [facility] 1st [place] [address] Emil Clarke, RT Social History Tobacco Use Types Packs/Day Years Used Date Smoking Tobacco: Never Smokeless Tobacco: Never Alcohol Use Standard Drinks/Week Comments No 0 (1 standard drink = 0.6 oz pur e alcohol) Comments No Sex and Gender Information Value Date Recorded Sex Assigned at Not on file Legal Sex Female 11:49 PM SECRETARY BOOK KEEPER Gender Identity Not on file Sexual Orientation [...] DT MRSA 12/27/2021 03/06/2022 09/02/2022 3:05 AM SECRETARY BOOK KEEPER documented as of this encounter Care Teams Voice Engineer Relationship Specialty Start Date End Date Frazier Shilpaolimpia Law DO PCP - General 06/12/18 07/15/21 Ab Melara MD [address] [address] PCP - General Family Medicine 07/16/21 Lidia Barajas MD Anesthesiologist Anesthesiology 01/13/20 documented as of this encounter
--- OUTSIDE RECORDS SUMMARY | 2025-01-31 15:31 | XMS_ITS | Encounter Summary ---
Author Organization [facility] Address [address] [place] [address] Care Team Providers Care Radio Personality Name Role Phone Fiordaliza Snell MD Primary [...] on file Legal Sex Female 2:43 AM FUN HOUSE ATTENDANT Gender Identity Not on file Sexual Orientation Not on file documented as of this encounter Plan of Treatment Not on file documented as of this encounter Visit Diagnoses Diagnosis Chronic salpingitis and oophoritis- Primary documented in this encounter Additional Health Concerns Infection Onset Date Last Indicated Resolved Time R/O COVID-19 07/02/2020 07/02/2020 07/02/2020 8:53 PM FUN HOUSE ATTENDANT MRSA Comment:Resolved per Type and Duration of Precautions Recommended for Selected Infections and Conditions document 2023 update 07/02/2020 07/02/2020 03/16/20 24 10:58 AM CDT R/O COVID-19 07/10/2020 07/10/2020 07/10/2020 5:01 PM FUN HOUSE ATTENDANT documented as of this encounter Care Teams Radio Personality Relationship Specialty Start Date End Date Fiordaliza Snell MD PCP - General Family Practice 09/09/22 documented as of this encounter
--- OUTSIDE RECORDS SUMMARY | 2025-01-31 15:31 | XMS_ITS | Encounter Summary ---
Author Organization [facility] Address [address] [place] [address] Care Team Providers Care Wholesale Manager Name Role Phone Fiordaliza Snell MD Primary [...] on file Legal Sex Female 2:43 AM SALOON KEEPER Gender Identity Not on file Sexual [...] ORDERABLES Final Resu lt Performing Organization Address [facility] Phone Number INTERFACE SYSTEM Refer to [...] ORDERABLES Final Resul t Performing Organization Address [facility] Phone Number INTERFACE SYSTEM Refer to clinic/hospital department * (ABNORMAL) AMYLASE (10/13/2004 9:56 AM CDT) AMYLASE 24(L) 28 - 100 U/L INTERFACE SYSTEM 10/13/2004 9:56 AM CDT Russell Marie CHEMISTRY ORDERABLES Final Resul t Performing Organization Address [facility] Phone Number INTERFACE SYSTEM Refer to clinic/hospital department * LIPASE (10/13/2004 9:56 AM CDT) LIPASE 20 13 - 60 U/L INTERFAC E SYSTEM 10/13/2004 9:56 AM CDT [facility] CHEMISTRY ORDERABLES Final Resul t Performing Organization Address [facility] Phone Number INTERFACE SYSTEM Refer to [...] K/uL INTERFACE SYSTEM 10/13/2004 5:00 AM CDT [facility] HEMATOLOGY ORDERABLES Final Resu lt Performing Organization Address [facility] Phone Number INTERFACE SYSTEM Refer to [...] ORDERABLES Final Resu lt Performing Organization Address [facility] Phone Number INTERFACE SYSTEM Refer to clinic/hospital department * (ABNORMAL) C-REACTIVE PROTEIN (10/13/2004 5:00 AM CDT) CRP 1.3(H) 0.0 - 0.8 mg/dL INTERFACE SYSTEM 10/13/2004 5:00 AM CDT Russell Salazar CHEMISTRY ORDERABLES Final Resul t Performing Organization Address [facility] Phone Number INTERFACE SYSTEM Refer to [...] URINE ORDERABLES Final Result Performing Organization Address [facility] de Phone Number INTERFACE SYSTEM Refer to [...] ORDERABLES Final Resu lt Performing Organization Address [facility] Phone Number INTERFACE SYSTEM Refer to clinic/hospital department * (ABNORMAL) C-REACTIVE PROTEIN (10/12/2004 9:17 PM CDT) CRP 1.4(H) 0.0 - 0.8 mg/dL INTERFACE SYSTEM 10/12/2004 9:[address] MD CHEMISTRY ORDERABLES Final Resul t Performing Organization Address [facility] Phone Number INTERFACE SYSTEM Refer to clinic/hospital department * LIPASE (10/12/2004 9:17 PM CDT) LIPASE 41 13 - 60 U/L INTERFAC E SYSTEM 10/12/2004 9:[address] MD CHEMISTRY ORDERABLES Final Resul t Performing Organization Address [facility] de Phone Number INTERFACE SYSTEM Refer to clinic/hospital department * AMYLASE (10/12/2004 9:17 PM CDT) AMYLASE 39 28 - 100 U/L INTERFACE SYSTEM Comment:Previous specimen us ed; approved by floor. 10/12/2004 9:[address] MD CHEMISTRY ORDERABLES Final Resul t Performing Organization Address [facility] Phone Number INTERFACE SYSTEM Refer to [...] ORDERABLES Final Resu lt Performing Organization Address [facility] Phone Number INTERFACE SYSTEM Refer to [...] ORDERABLES Final Resu lt Performing Organization Address [facility] Phone Number INTERFACE SYSTEM Refer to [...] ORDERABLES Final Resul t Performing Organization Address [facility] Phone Number INTERFACE SYSTEM Refer to clinic/hospital department documented in this encounter Visit Diagnoses Diagnosis Abdominal pain, right lower quadrant- Primary documented in this encounter Additional Health Concerns Infection Onset Date Last Indicated Resolved Time R/O COVID-19 07/02/2020 07/02/2020 07/02/2020 8:53 PM SALOON KEEPER MRSA Comment:Resolved per Type and Duration of Precautions Recommended for Selected Infections and Conditions document 2023 update 07/02/2020 07/02/2020 03/16/20 10:58 AM CDT R/O COVID-19 07/10/2020 07/10/2020 07/10/2020 5:01 PM SALOON KEEPER documented as of this encounter Care Teams Wholesale Manager Relationship Specialty Start Date End Date Fiordaliza Snell MD PCP - General Family Practice 09/09/22 documented as of this encounter
--- OUTSIDE RECORDS SUMMARY | 2025-01-31 15:31 | XMS_ITS | Clinical Summary ---
Author Organization [facility] Address [address] [place] [address] Phone Care Team Providers Care Clinical Data Abstractor Name Role Phone Unavailable Primary Care Provider Unavailabl e Social History Tobacco Use Types Packs/Day Years Used Date Smoking Tobacco: Never Assessed Comments Unknown Sex and Gender Information Value Date Recorded Sex Assigned at Not on file Legal Sex Female 3:52 AM OPTICAL MECHANIC Gender Identity Not on file Sexual Orientation Not on file Plan of Treatment Health Maintenance Due Date Last Done Comments Hepatitis C Virus (HCV) Screening 1965 TdaP Immunization 1965 Hepatitis B Immunization (1 of 3 - 19+ 3-dose series) 1985 Pap Smear 09/27/1987 Cervical Cancer Screening (CCS) 1996 HPV/Cotest 1996 Cologuard 09/27/2011 Colonoscopy 09/27/2011 Colorectal Cancer Screening 09/27/2011 Immunochemical Fecal Occult Blood 09/27/2011 Pneumococcal Immunization (5 0+ years) (1 of 1 - PCV) 2016 Zoster Immunization (1 of 2) 2016 SARS-COV-2 Immunization ( - season) 2024 Influenza Immunization (#1) 2025 Respiratory Syncytial Virus (RSV) Immunization (Adult) (1 - 1-dose 75+ series) 2041 Human Papillomavirus (HPV) Immunization Aged Out No longer eligible b ased on patient's age to complete this topic Meningococcal Immunization (ACWY) Aged Out No longer eligible based on patient's age to complete this topic Rotavirus Immunization Aged Out No lo nger eligible based on patient's age to complete this topic
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
--- OUTSIDE RECORDS SUMMARY | 2025-01-31 15:32 | XMS_ITS | Encounter Summary ---
Author Organization [facility] Healthcare Address [address] [place] [address] Care Team Providers Care Script Supervisor Name Role Phone FrazierShilpa DO Primary Care Provider Lidia Barajas MD Unavailable Ab Melara MD Primary Care Provid er Encounter Details Date Type Department Care Team (Late st Contact Info) Description 03/19/2019 Telephone [facility] - Interventional Radiology [address] [place] [address] Nhung French RN Social History [...] on file Legal Sex Female 11:49 PM ALUMINUM BOATS ASSEMBLER Gender Identity Not on file Sexual [...] DT MRSA 12/27/2021 03/06/2022 09/02/2022 3:05 AM ALUMINUM BOATS ASSEMBLER documented as of this encounter Care Teams Script Supervisor Relationship Specialty Start Date End Date Shilpa Frazier DO PCP - General 06/12/18 07/15/21 Ab Melara MD [address] [address] PCP - General Family Medicine 07/16/21 Lidia Barajas MD Anesthesiologist Anesthesiology 01/13/20 documented as of this encounter
--- OUTSIDE RECORDS SUMMARY | 2025-01-31 15:32 | XMS_ITS | Encounter Summary ---
Author Organization [facility] Healthcare Address [address] [place] [address] Care Team Providers Care Principal Accounts Clerk Name Role Phone Shilpa Frazier DO Primary Care Provider Lidia Barajas MD Unavailable Ab Melara MD Primary Care Provid er Encounter Details Date Type Department Care Team (Late st Contact Info) Description 03/15/2019 Telephone [facility] - Interventional Radiology [address] [place] [address] Philly Aguirre RN Social History [...] on file Legal Sex Female 11:49 PM JOB ANALYSIS MANAGER Gender Identity Not on file Sexual [...] DT MRSA 12/27/2021 03/06/2022 09/02/2022 3:05 AM JOB ANALYSIS MANAGER documented as of this encounter Care Teams Principal Accounts Clerk Relationship Specialty Start Date End Date Shilpa Frazier DO PCP - General 06/12/18 07/15/21 Ab Melara MD [address] [address] PCP - General Family Medicine 07/16/21 Lidia Barajas MD Anesthesiologist Anesthesiology 01/13/20 documented as of this encounter
--- OUTSIDE RECORDS SUMMARY | 2025-01-31 15:32 | XMS_ITS | Referral Summary ---
Author Organization [facility] al Address [address] [place] [address] Care Team Providers Care Manager Inpatient Name Role Phone Lidia Barajas MD Unavailable [...] for pain 42 tablet 2 Active multivit ycekiixq-zeaz-HZ-c alcium (THERA-M) 9 mg iron-400 mcg tabletIndications: [...] (10/24/2021): Added automatically from request for surgery [id number] Postlaminectomy syndrome, lumbar region 10/25/19 Overview (10/24/2021): Added automatically from request for surgery [id number] Assessment & Plan (07/03/2022 3:48 PM SWING TENDER): Ms. Mcnulty is doing well following lumbar [...] (10/24/2021): Added automatically from request for surgery [id number] Other chest pain 01/19/2020 Assessment & Plan [...] need for exchange this admission Suprapubic catheter ([facility]) 11/16/2019 Essential hypertension 11/16/2019 Hypertensive urgency [...] (11/25/2019): Added automatically from request for surgery [id number] Chronic lumbar radiculopathy 01/21/2019 Chronic back pain 01/21/2019 Spinal stenosis of lumbar region with radiculopa thy 12/04/2018 Assessment & Plan (07/18/2021 10:23 AM SWING TENDER): Assessment Healed fusion L2-5 severe retrolisthesis with [...] (06/18/2018): Added automatically from request for surgery [id number] Assessment & Plan (12/04/2018 3:42 PM CDT): Healing fusion C6-7 Continued observation. Assessment & Plan (08/12/2018 10:35 AM SWING TENDER): Assessment Healing fusion C6-7 Plan Talked about do's and don'ts she is still to maintain her initial restrictions and return in 6 weeks for an x-ray Assessment & Plan (06/25/2018 2:43 PM SWING TENDER): Angelina was recently hospitalized at [facility] and diagnosed with a disc osteophyte complex [...] (06/18/2018): Added automatically from request for surgery [id number] Cervical pain (neck) 06/13/2018 Asthma 11/13/2013 Overview [...] often do you attend chur ch or mormonism services? More than 4 times per year [...] place to sleep or slept in a retirement (including now)? No 03/07/2022 Comments No Sex and Gender Information Value Date Recorded Sex Assigned at Not on file Legal Sex Female 11:49 PM SWING TENDER Gender Identity Not on file Sexual [...] Plan Chronic Care Management Worsening( 10:12 AM SWING TENDER) Milvia Mireles RN Note: Problem: Chronic Pain Goals: 1. Minimize further functional decline 2. Maximize quality of life 3. Control pain Strategies: - Activity/exercise program recommendation - Conservative stepwise pain medicine strategy with multi-disciplinary approach - Recommend healthy lifestyle strategies and compensatory methods as needed Medical Devices Implanted Type Area Seafood Technology Specialist Device Identifier Shelf Expiration Date Model / Serial / Lot Spinal Cord Stimulator-2016 Implanted:01/28 (Quantity not on file) Spinal Cord Stimulator Left: Hip Nevro Spinal Cord Stimulation System [id number] / / Description:Closed Bore only 1.5T or [...] ensure it has returned to pre-MRI settings. [employer] 700-025 I Factor Allograft Putty Syringe Graft 2.5cc Bone - [id number] Implanted:Qty: 1 on 07/03/2018 by Zachary Rothman MD at [facility] N/A: Spine Cervical [employer] Inc 03/29/2021 700-025 / / [id number] Plate 1-Level 14 Mm Cervical - [id number] Implanted:Qty: 1 on 07/03/2018 by Zachary Rothman MD at [facility] N/A: Spine Cervical [employer] 30-0114 / / Screw 4.0x14mm Self Drilling Variable - [id number] Implanted:Qty: 4 on 07/03/2018 by Zachary Rothman MD at [facility] N/A: Spine Cervical [employer] [id number] / / Cage Spinal [id number] 7 Degree Porous Coated Latex Free - [id number] Implanted:Qty: 1 on 07/03/2018 by Zachary Rothman MD at [facility] N/A: Spine Cervical Spinal Elements [id number] / / Depuy Synthes Spine [id number] Substitute Bone Graft Fibergraft Gps Medium Putty 6cc - [id number] Implanted:Qty: 1 on 11/29/2021 by Dave Louis MD at [facility] N/A: Lumbar-Sa cral Spine Depuy Synthes Spine [id number] 10/18/2023 [id number] / / [id number] [employer] Osteosponge Allograft Chips Radiolucent Thk4-10mm Graft 30cc Bone [id number] - [id number] - [id number] Implanted:Qty: 1 on 11/29/2021 by Dave Louis MD at [facility] N/A: Lumbar-Sa cral Spine [employer] 10/14/2024 [id number] / [id number] / Depuy Synthes Spine Cage Post Spinal 4d Plif Ti [id number] - [id number] Implanted:Qty: 1 on 11/29/2021 by Dave Louis MD at [facility] N/A: Lumbar-Sa cral Spine Depuy Synthes Spine [id number] 07/30/2024 [id number] / / [id number] Depuy Synthes Spine Expedium 5.5mm 80mm Line Prebent Rodney Spinal Titanium Nonsterile [id number] - [id number] Implanted:Qty: 1 on 11/29/2021 by Dave Louis MD at [facility] N/A: Lumbar-Sa cral Spine Depuy Synthes Spine [id number] / / Depuy Synthes Spine Expedium 5.5mm 85mm Line Prebent Rodney Spinal Titanium Nonsterile [id number] - [id number] Implanted:Qty: 1 on 11/29/2021 by Dave Louis MD at [facility] N/A: Lumbar-Sa cral Spine Depuy Synthes Spine [id number] / / Depuy Synthes Spine Expedium 5.5mm 45mm Polyaxial Spine Screw Bone Titanium 5.5mm Rodney [id number] - [id number] Implanted:Qty: 2 on 11/29/2021 by Dave Louis MD at [facility] N/A: Lumbar-Sa cral Spine Depuy Synthes Spine [id number] / / Depuy Synthes Spine Expedium 6.5mm 45mm Polyaxial Spine Screw Bone Titanium 5.5mm Rodney [id number] - [id number] Implanted:Qty: 3 on 11/29/2021 by Dave Louis MD at [facility] N/A: Lumbar-Sa cral Spine Depuy Synthes Spine [id number] / / Depuy Synthes Spine Expedium 1 Inner Monoaxial Spine Screw Set Titanium [id number] - [id number] Implanted:Qty: 6 on 11/29/2021 by Dave Louis MD at [facility] N/A: Lumbar-Sa cral Spine Depuy Synthes Spine [id number] / / Depuy Synthes Spine Expedium 7mm 45mm 1 Innie Polyaxial Spine Screw Bone Titanium [id number] - [id number] Implanted:Qty: 1 on 11/29/2021 by Dave Louis MD at [facility] N/A: Lumbar-Sa cral Spine Depuy Synthes Spine [id number] / / Procedures Procedure Name Priority Date/Time [...] 11/29/2019 8:04 AM Admit Type: Inpatient Room: [facility] 4 Date of : 1965 Instrument Name: [...] the bowel preparation was evaluated usingthe BBPS ([place]wood Bowel Preparation Scale) with scores of: Right [...] AM CDT) Hep A IgM Nonreactive Nonreactive [facility] Comment: Interpretive Data: If Hep A IgM Ab is reported as Equivocal, a new sample should be drawn in two weeks for testing. Current interpretive data was last revised on 19. Hep B core IgM Nonreactive Nonreactive [facility] Comment: Interpretive Data If HepB Core IgM Ab is reported as Equivocal, a new sample should be drawn in two weeks for testing. Current interpretive data was last revised on 19. Hep C Ab Nonreactive Nonreactive [facility] Comment: Interpretive Data Nonreactive: Antibodies to HCV [...] last revised on 2019. HepBsAg Nonreactive Nonreactive [facility] Blood specimen (specimen) 11/17/2019 4:13 AM CDT 11/17/2019 4:31 AM CDT [facility] MICROBIOLOGY - GENERAL ORDERABLES Final Result [facility] Zahraa Joshi Seth Department [place] [address] from Last 3 Months or Most Recently Relevant to Health Maintenance Insurance UHC MEDICARE ADVANTAGE [facility] MEDICARE [facility] MEDICARE Address: [address] [place] [address] [place] [address] [facility] MEDICARE [facility] MEDICARE ADVANTAGE Advance Directives For more information, please contact: [phone] Documents on File Type Date Recorded Patient Association Executive Expl anation Power of Campus Receptionist 11/29/2021 11:46 AM * Full Code (Latest [...] Alternate Health Care Agent Care Teams Manager Inpatient Relationship Specialty Start Date End Date Devabhaktuni, Ramadevi R., MD [address] [address] PCP - General Family Medicine 07/16/21 Lidia Barajas MD Anesthesiologist Anesthesiology 01/13/20
--- OUTSIDE RECORDS SUMMARY | 2025-01-31 15:32 | XMS_ITS | Encounter Summary ---
Author Organization [facility] Healthcare Address [address] [place] [address] Care Team Providers Care Finance Professional Name Role Phone Shilpa Fraziermeera PEREZ Primary Care Provider Lidia Barajas MD Unavailable Ab Melara MD Primary Care Provid er Reason for Visit * Reason Onset Date Comments PRECALL ANTICOAG 02/18/2020 Encounter Details Date Type Department Care Team (Late st Contact Info) Description 02/18/2020 Telephone [facility] at [facility] [address] [address] [place] [address] Tori Arias RN PRECALL ANTICOAG [...] on file Legal Sex Female 11:49 PM TOBACCO WAREHOUSE MANAGER Gender Identity Not on file Sexual [...] DT MRSA 12/27/2021 03/06/2022 09/02/2022 3:05 AM TOBACCO WAREHOUSE MANAGER documented as of this encounter Care Teams Finance Professional Relationship Specialty Start Date End Date Shilpa Frazier DO PCP - General 06/12/18 07/15/21 Ab Melara MD [address] [address] PCP - General Family Medicine 07/16/21 Lidia Barajas MD Anesthesiologist Anesthesiology 01/13/20 documented as of this encounter
--- OUTSIDE RECORDS SUMMARY | 2025-01-31 15:32 | XMS_ITS | Encounter Summary ---
Author Organization [facility] Address [address] [place] [address] Care Team Providers Care Concrete Pipe Maker Name Role Phone Fiordaliza Snell MD Primary Care Provider Encounter Details Date Type Department Care Team (Late st Contact Info) Description 07/10/1998 Emergency [facility] Ankita Nelson MD NO ADDRESS ON FILE Er, Authorized P NO ADDRESS ON FILE Metrorrhagia (Primary Dx) Social History Tobacco Use Types Packs/Day Years Used Date Smoking Tobacco: Never Assessed Comments Unknown Sex and Gender Information Value Date Recorded Sex Assigned at Not on file Legal Sex Female 2:43 AM METHOD CONSULTANT Gender Identity Not on file Sexual Orientation Not on file documented as of this encounter Plan of Treatment Not on file documented as of this encounter Visit Diagnoses Diagnosis Metrorrhagia- Primary documented in this encounter Additional Health Concerns Infection Onset Date Last Indicated Resolved Time R/O COVID-19 07/02/2020 07/02/2020 07/02/2020 8:53 PM METHOD CONSULTANT MRSA Comment:Resolved per Type and Duration of Precautions Recommended for Selected Infections and Conditions document 2023 update 07/02/2020 07/02/2020 03/16/20 24 10:58 AM CDT R/O COVID-19 07/10/2020 07/10/2020 07/10/2020 5:01 PM METHOD CONSULTANT documented as of this encounter Care Teams Concrete Pipe Maker Relationship Specialty Start Date End Date Fiordaliza Snell MD PCP - General Family Practice 09/09/22 documented as of this encounter
--- OUTSIDE RECORDS SUMMARY | 2025-01-31 15:32 | XMS_ITS | Patient Health Record ---
Author Organization [facility] As City Notes Address [address] [place] [address] Care Team Providers Care Digital Content Producer Name Role Phone Hayley Bautista Unavailable [phone] Reason For Referral No Information Medications Medication SIG (Take, Route, Frequency, Duration) Notes Start Date End Date Status Myrbetriq 50 MG Oral Acti ve Ondansetron 4 MG Oral Act aly Cefpodoxime Proxetil 200 MG Oral Active Dicyclomine HCl 10 MG Oral Active Nystatin-Triamcinolone 386860-8.1 UNIT/GM External Active Pregabalin 100 MG Oral Ac tive Acetaminophen Extra Strength 500 MG Oral Active Hydrocortisone 10 MG Oral Active rOPINIRole HCl 0.5 MG Oral Active SUMAtriptan Succinate 6 mg/0.5 mL Subcutaneous Active rOPINIRole HCl 1 MG Oral Active SOLIFENACIN 10 MG TABLET *Reorder from [employer] for eRx and Interaction Alerts* Active Escitalopram Oxalate 20 MG Oral Active ALPRAZolam 0.25 MG Oral A ctive Phenazopyridine HCl 200 MG Oral Active HYDROcodone-Acetaminop hen 5-325 MG Oral Active Doxycycline Hyclate 100 MG Oral Active Cephalexin 500 MG Oral Ac tive oxyCODONE HCl 10 MG Oral Active Furosemide 20 MG Oral Act aly Linezolid 600 MG Oral Act aly Pantoprazole Sodium 40 MG Oral Active Methocarbamol 500 MG Oral Active Methenamine Hippurate 1 GM Oral Active Atorvastatin Calcium 10 MG Oral Active Metoprolol Succinate ER 25 MG Oral Active Gabapentin 300 MG Oral Ac tive Diclofenac Sodium 1% Transdermal Active OLANZapine 5 MG Oral Acti ve Zolpidem Tartrate 5 MG Oral Active Naproxen 375 MG Oral Acti ve Fluconazole 200 MG Oral A ctive Nystop 908864 UNIT/GM External Active Ciprofloxacin HCl 500 MG Oral Active oxyCODONE HCl 5 MG Oral A ctive ADVANCED ANTACID 200-200-20 mg/5 mL Oral *Reorder from [employer] for eRx and Interaction Alerts* Active Cyclobenzaprine HCl 5 MG Oral Active predniSONE 10 MG Oral Act ayl Losartan Potassium 100 MG Oral Active Aspirin Adult Low Strength 81 MG Oral Active Baclofen 10 MG Oral Activ e Plan Of Treatment No Information Insurance Providers Payer Name Payer Address Payer Phone Subscriber Number Group Number Insured Name Patient Relationship to Insured Coverage Start Date Coverage End Date [employer] Medicare Replacement/ Advantage - Ppo [address] [address] [place] [address] [id number] JJ MOYA Self - patient is the insured
--- OUTSIDE RECORDS SUMMARY | 2025-01-31 15:32 | XMS_ITS | Encounter Summary ---
Author Organization [facility] Healthcare Address [address] [place] [address] Care Team Providers Care Leaded Glass Installer Name Role Phone Shilpa Frazier DO Primary Care Provider Lidia Barajas MD Unavailable Ab Melara MD Primary Care Provid er Encounter Details Date Type Department Care Team (Late st Contact Info) Description 04/24/2020 Telephone [facility] Center at [facility] [address] [facility] [address] [place] [address] Tori Arias RN Social History [...] on file Legal Sex Female 11:49 PM ELEVATOR CONSTRUCTOR ELECTRIC Gender Identity Not on file Sexual Orientation [...] DT MRSA 12/27/2021 03/06/2022 09/02/2022 3:05 AM ELEVATOR CONSTRUCTOR ELECTRIC documented as of this encounter Care Teams Leaded Glass Installer Relationship Specialty Start Date End Date Shilpa Frazier DO PCP - General 06/12/18 07/15/21 Ab Melara MD [address] [address] PCP - General Family Medicine 07/16/21 Lidia Barajas MD Anesthesiologist Anesthesiology 01/13/20 documented as of this encounter
--- OUTSIDE RECORDS SUMMARY | 2025-01-31 15:32 | XMS_ITS | Encounter Summary ---
Author Organization [facility] Address [address] [place] [address] Care Team Providers Care Retail Clerk Name Role Phone Fiordaliza Snell MD Primary [...] on file Legal Sex Female 2:43 AM NEGATIVE CLEANER Gender Identity Not on file Sexual Orientation Not on file documented as of this encounter Plan of Treatment Not on file documented as of this encounter Visit Diagnoses Diagnosis Pelvic peritoneal adhesions, female (postoperative) (postinfection)- Primary documented in this encounter Additional Health Concerns Infection Onset Date Last Indicated Resolved Time R/O COVID-19 07/02/2020 07/02/2020 07/02/2020 8:53 PM NEGATIVE CLEANER MRSA Comment:Resolved per Type and Duration of Precautions Recommended for Selected Infections and Conditions document 2023 update 07/02/2020 07/02/2020 03/16/20 24 10:58 AM CDT R/O COVID-19 07/10/2020 07/10/2020 07/10/2020 5:01 PM NEGATIVE CLEANER documented as of this encounter Care Teams Retail Clerk Relationship Specialty Start Date End Date Fiordaliza Snell MD PCP - General Family Practice 09/09/22 documented as of this encounter
--- OUTSIDE RECORDS SUMMARY | 2025-01-31 15:32 | XMS_ITS | Encounter Summary ---
Author Organization [facility] Address [address] [place] [address] Care Team Providers Care Spool Winder Name Role Phone Fiordaliza Snell MD [...] on file Legal Sex Female 2:43 AM WASTE REMOVALIST Gender Identity Not on file Sexual Orientation Not on file documented as of this encounter Plan of Treatment Not on file documented as of this encounter Visit Diagnoses Diagnosis Unspecified symptom associated with female genital organs- Primary documented in this encounter Additional Health Concerns Infection Onset Date Last Indicated Resolved Time R/O COVID-19 07/02/2020 07/02/2020 07/02/2020 8:53 PM WASTE REMOVALIST MRSA Comment:Resolved per Type and Duration of Precautions Recommended for Selected Infections and Conditions document 2023 update 07/02/2020 07/02/2020 03/16/20 24 10:58 AM CDT R/O COVID-19 07/10/2020 07/10/2020 07/10/2020 5:01 PM WASTE REMOVALIST documented as of this encounter Care Teams Spool Winder Relationship Specialty Start Date End Date Fiordaliza Snell MD PCP - General Family Practice 09/09/22 documented as of this encounter
--- OUTSIDE RECORDS SUMMARY | 2025-01-31 15:32 | XMS_ITS | Encounter Summary ---
Author Organization [facility] Address [address] [place] [address] Care Team Providers Care Roller Helper Name Role Phone Fiordaliza Snell MD Primary Care Provider Encounter Details Date Type Department Care Team (Late st Contact Info) Description 08/31/1998 Emergency [facility] Closed fracture of lateral malleolus (Primary Dx) Social History Tobacco Use Types Packs/Day Years Used Date Smoking Tobacco: Never Assessed Comments Unknown Sex and Gender Information Value Date Recorded Sex Assigned at Not on file Legal Sex Female 2:43 AM TRAILERS AND MOTOR HOMES SALESPERSON Gender Identity Not on file Sexual Orientation Not on file documented as of this encounter Plan of Treatment Not on file documented as of this encounter Visit Diagnoses Diagnosis Closed fracture of lateral malleolus- Primary documented in this encounter Additional Health Concerns Infection Onset Date Last Indicated Resolved Time R/O COVID-19 07/02/2020 07/02/2020 07/02/2020 8:53 PM TRAILERS AND MOTOR HOMES SALESPERSON MRSA Comment:Resolved per Type and Duration of Precautions Recommended for Selected Infections and Conditions document 2023 update 07/02/2020 07/02/2020 03/16/20 24 10:58 AM CDT R/O COVID-19 07/10/2020 07/10/2020 07/10/2020 5:01 PM TRAILERS AND MOTOR HOMES SALESPERSON documented as of this encounter Care Teams Roller Helper Relationship Specialty Start Date End Date Fiordaliza Snell MD PCP - General Family Practice 09/09/22 documented as of this encounter
--- OUTSIDE RECORDS SUMMARY | 2025-01-31 15:32 | XMS_ITS | Encounter Summary ---
Author Organization [facility] Address [address] [place] [address] Care Team Providers Care Warp Yarn Sorter Name Role Phone Fiordaliza Snell MD Primary Care Provider Encounter Details Date Type Department Care Team (Late st Contact Info) Description 03/12/1999 Emergency [facility] Ankita Nelson MD NO ADDRESS ON FILE Er, Authorized P NO ADDRESS ON FILE Lumbago (Primary Dx) Social History Tobacco Use Types Packs/Day Years Used Date Smoking Tobacco: Never Assessed Comments Unknown Sex and Gender Information Value Date Recorded Sex Assigned at Not on file Legal Sex Female 2:43 AM APPLICATION PROGRAMMER ANALYST Gender Identity Not on file Sexual Orientation Not on file documented as of this encounter Plan of Treatment Not on file documented as of this encounter Visit Diagnoses Diagnosis Lumbago- Primary documented in this encounter Additional Health Concerns Infection Onset Date Last Indicated Resolved Time R/O COVID-19 07/02/2020 07/02/2020 07/02/2020 8:53 PM APPLICATION PROGRAMMER ANALYST MRSA Comment:Resolved per Type and Duration of Precautions Recommended for Selected Infections and Conditions document 2023 update 07/02/2020 07/02/2020 03/16/20 24 10:58 AM CDT R/O COVID-19 07/10/2020 07/10/2020 07/10/2020 5:01 PM APPLICATION PROGRAMMER ANALYST documented as of this encounter Care Teams Warp Yarn Sorter Relationship Specialty Start Date End Date Fiordaliza Snell MD PCP - General Family Practice 09/09/22 documented as of this encounter
--- OUTSIDE RECORDS SUMMARY | 2025-01-31 15:32 | XMS_ITS | Encounter Summary ---
Author Organization [facility] Address [address] [place] [address] Care Team Providers Care Front Maker Lockstitch Name Role Phone Fiordaliza Snell MD Primary [...] file Legal Sex Female 2:43 AM BUSINESS CONTINUITY ANALYST Gender Identity Not on file Sexual Orientation Not on file documented as of this encounter Plan of Treatment Not on file documented as of this encounter Visit Diagnoses Diagnosis Unspecified symptom associated with female genital organs- Primary documented in this encounter Additional Health Concerns Infection Onset Date Last Indicated Resolved Time R/O COVID-19 07/02/2020 07/02/2020 07/02/2020 8:53 PM BUSINESS CONTINUITY ANALYST MRSA Comment:Resolved per Type and Duration of Precautions Recommended for Selected Infections and Conditions document 2023 update 07/02/2020 07/02/2020 03/16/20 24 10:58 AM CDT R/O COVID-19 07/10/2020 07/10/2020 07/10/2020 5:01 PM BUSINESS CONTINUITY ANALYST documented as of this encounter Care Teams Front Maker Lockstitch Relationship Specialty Start Date End Date Fiordaliza Snell MD PCP - General Family Practice 09/09/22 documented as of this encounter
--- OUTSIDE RECORDS SUMMARY | 2025-01-31 15:32 | XMS_ITS | Encounter Summary ---
Author Organization [facility] Address [address] [place] [address] Care Team Providers Care Electronic Publishing Specialist Name Role Phone Fiordaliza Snell MD Primary Care Provider Encounter Details Date Type Department Care Team (Late st Contact Info) Description 04/02/2000 Emergency [facility] Er, Authorized P NO ADDRESS ON FILE Surgical or other procedure not carried out because of patient's decision (Primary Dx) Social History Tobacco Use Types Packs/Day Years Used Date Smoking Tobacco: Never Assessed Comments Unknown Sex and Gender Information Value Date Recorded Sex Assigned at Not on file Legal Sex Female 2:43 AM WOOL BATTING WORKER Gender Identity Not on file Sexual Orientation Not on file documented as of this encounter Plan of Treatment Not on file documented as of this encounter Visit Diagnoses Diagnosis Surgical or other procedure not carried out because of patient's decision- Primary documented in this encounter Additional Health Concerns Infection Onset Date Last Indicated Resolved Time R/O COVID-19 07/02/2020 07/02/2020 07/02/2020 8:53 PM WOOL BATTING WORKER MRSA Comment:Resolved per Type and Duration of Precautions Recommended for Selected Infections and Conditions document 2023 update 07/02/2020 07/02/2020 03/16/20 24 10:58 AM CDT R/O COVID-19 07/10/2020 07/10/2020 07/10/2020 5:01 PM WOOL BATTING WORKER documented as of this encounter Care Teams Electronic Publishing Specialist Relationship Specialty Start Date End Date Fiordaliza Snell MD PCP - General Family Practice 09/09/22 documented as of this encounter
--- OUTSIDE RECORDS SUMMARY | 2025-01-31 15:32 | XMS_ITS | Encounter Summary ---
Author Organization [facility] Address [address] [place] [address] Care Team Providers Care Angiographer Name Role Phone Fiordaliza Snell MD Primary Care Provider Encounter Details Date Type Department Care Team (Late st Contact Info) Description 08/24/1998 Emergency [facility] Matthew Chang MD NO ADDRESS ON FILE Er, Authorized P NO ADDRESS ON FILE Abdominal pain, unspecified site (Primary Dx) Social History Tobacco Use Types Packs/Day Years Used Date Smoking Tobacco: Never Assessed Comments Unknown Sex and Gender Information Value Date Recorded Sex Assigned at Not on file Legal Sex Female 2:43 AM BAT BOY/GIRL Gender Identity Not on file Sexual Orientation Not on file documented as of this encounter Plan of Treatment Not on file documented as of this encounter Visit Diagnoses Diagnosis Abdominal pain, unspecified site- Primary documented in this encounter Additional Health Concerns Infection Onset Date Last Indicated Resolved Time R/O COVID-19 07/02/2020 07/02/2020 07/02/2020 8:53 PM BAT BOY/GIRL MRSA Comment:Resolved per Type and Duration of Precautions Recommended for Selected Infections and Conditions document 2023 update 07/02/2020 07/02/2020 03/16/20 24 10:58 AM CDT R/O COVID-19 07/10/2020 07/10/2020 07/10/2020 5:01 PM BAT BOY/GIRL documented as of this encounter Care Teams Angiographer Relationship Specialty Start Date End Date Fiordaliza Snell MD PCP - General Family Practice 09/09/22 documented as of this encounter
--- OUTSIDE RECORDS SUMMARY | 2025-01-31 15:32 | XMS_ITS | Encounter Summary ---
Author Organization [facility] Address [address] [place] [address] Care Team Providers Care Line Leader Name Role Phone Fiordaliza Snell MD Primary [...] on file Legal Sex Female 2:43 AM DYE TANK TENDER Gender Identity Not on file Sexual Orientation Not on file documented as of this encounter Plan of Treatment Not on file documented as of this encounter Visit Diagnoses Diagnosis Excessive or frequent menstruation- Primary documented in this encounter Additional Health Concerns Infection Onset Date Last Indicated Resolved Time R/O COVID-19 07/02/2020 07/02/2020 07/02/2020 8:53 PM DYE TANK TENDER MRSA Comment:Resolved per Type and Duration of Precautions Recommended for Selected Infections and Conditions document 2023 update 07/02/2020 07/02/2020 03/16/20 24 10:58 AM CDT R/O COVID-19 07/10/2020 07/10/2020 07/10/2020 5:01 PM DYE TANK TENDER documented as of this encounter Care Teams Line Leader Relationship Specialty Start Date End Date Fiordaliza Snell MD PCP - General Family Practice 09/09/22 documented as of this encounter
--- OUTSIDE RECORDS SUMMARY | 2025-01-31 15:32 | XMS_ITS | Clinical Summary ---
Author Organization [facility] Address [address] [place] [id number] Phone Care Team Providers Care City Sanitarian Name Role Phone Fiordaliza Snell MD Primary [...] 60 Tablet 2 1 Active lidocaine-vit e-aloe vera-rylna (REGENECARE) 2 % Gel Apply to affected [...] migh t be different from the original. Laundry Routeman - Dr. Eddie Tapia MD, [facility], [facility] - [address] [facility] Problem Noted Date Diagnosed Date [...] NOS Added automatically from request for surgery [id number] Last Assessment & Plan: Healing fusion C6-7 [...] (09/14/2021): Added automatically from request for surgery [id number] Cervical pain (neck) 06/13/2018 Intractable pain 10/13/2011 [...] 07/25/2020 Immunizations Immunization Administration Dates Next Due (R-Squared)(12 YR UP) COVID-19 VACCINE - EMERGENCY USE AUTHORIZATION, MRNA, [id number](PF) 30 MCG/0.3 ML IM SUSP 12/13/2020,11/20/2020 (PNEUMOVAX [...] on file Legal Sex Female 2:43 AM FRUIT HARVESTER Gender Identity Not on file Sexual Orientation [...] CDT Respiratory Rate 18 07/12/2020 9:24 PM FRUIT HARVESTER Oxygen Saturation 97% 04/20/2021 2:12 PM CDT Inhaled Oxygen Concentration - - Weight 91.6 kg (202 lb) 08/07/2020 2:15 PM FRUIT HARVESTER Height 172.7 cm (5' 8) 04/20/2021 2:12 PM CDT Body Mass Index 30.71 08/07/2020 2:15 PM FRUIT HARVESTER Plan of Treatment Health Maintenance Due Date Last Done Comments DTAP/TDAP/TD VACCINES (1 - Tdap) 1985 HEPATITIS B VACCINES (1 of 3 - 19+ 3-dose series) 1985 BREAST CANCER SCREENING 2006 FIT-DNA Q 3 years 09/27/2011 FIT/FOBT Q 1 year 09/27/2011 Flex Sig/CT Colonography Q 5 years 09/27/2011 ZOSTER VACCINE (1 of 2) 2016 COVID-19 Vaccine (3 - 2023-2 5 season) 2024 12/13/2020, 11/20/2020 INFLUENZA VACCINE (#1) 2025 , 03/26/2019, 05/06/2018, Additional history exists COLORECTAL SCREENING 11/28/2029 11/29/2019, 08/03/2019, 08/03/2019 Colorectal Cancer Screening 11/28/2029 Insurance [employer] PPO MCR Advance Directives For more information, please contact: [phone] * Full Code (Latest Code Status on File) Date Activated Date Inactivated Comments 07/02/2020 10:50 PM 07/13/2020 1:53 PM * Full Code Date Activated Date Inactivated Comments 06/26/2011 3:20 AM 06/26/2011 8:40 PM Care Teams City Sanitarian Relationship Specialty Start Date End Date Fiordaliza Snell MD PCP - General Family Practice 09/09/22
[2025-01-31 15:56] VITALS: BP 151/72; PULSE 75; RESP 16; TEMP 36.7; O2SAT 97
--- NOTE | 2025-01-31 16:12 | ED.CHESTPAIN ---
HPI - Chest Pain General Chief Complaint: Chest Pain <Wilber Burnett APRN - Last Filed: 02/01/25 16:27> Stated Complaint: chest pressure & UTI concern <Wilber Burnett APRN - Last Filed: 02/01/25 16:27> Time Seen by Provider: 01/31/25 20:44 <Wilber Burnett APRN - Last Filed: 02/01/25 16:27> 59-year-old female presents to the ER complaining of left-sided chest pain for approximately 4-5 days. Patient says the pain is intermittent in and reports a sharp stabbing pain to her left side of her chest. Patient also reports nausea. Patient also reports left-sided abdominal pain he reports foul-smelling urine. Patient has a suprapubic catheter in place. Patient has any fevers body aches, chills, difficulty breathing, vomiting, diarrhea, or any other symptoms. GENERAL: Well-appearing, well-nourished, and in no acute distress. HEAD: Normocephalic, atraumatic. CHEST: Clear to auscultation. ?No respiratory distress. HEART: Regular rate and rhythm.? NEURO: ?Alert and oriented x3. GI: ABDOMEN FIRM, TENDER, BOWEL SOUNDS PRESENT. THERE IS GUARDING. : Suprapubic catheter present. Patient screened in triage and initial orders placed.? ?Additional care and disposition to be based upon?diagnostic testing and treatment. <Wilbre Burnett APRN - Last Filed: 02/01/25 16:27> History of Present Illness HPI narrative: Agree with the above with the following additions/corrections: Patient states she is concerned she has urinary tract infection as she has experienced abdominal pain and left flank pain and in general feels lightheaded and this is how she has previously felt with urinary tract infection. She reports foul-smelling odor and low abdominal pain as well as particular matter in her urine since Friday. She reports that her urostomy stoma been protruding a bit and that she had noticed some purplish black issue centrally earlier in this had happened previously when she had an infection. She denies any danielle fevers although she has been having sweats and chills. She has a history of asthma CHF although she reports her asthma is well controlled and her triggers are tar and 2nd smoke. She states the chest pressure is occurring intermittently and radiates to her left axilla and left arm. She felt short of breath yesterday. She was also nauseated yesterday and vomited yesterday, the nausea persists. Temperature at home was 99.7. Denies any cough. Not on anticoagulation although she has a history of paroxysmal atrial fibrillation. She takes 81 mg aspirin. She reports the abdominal pain has been experienced before when she had a urinary tract infection and when she had complicated urinary tract infection she also had similar chest pressure symptoms. Has seen a fuel truck driver before. She reports a subjective edema, right greater than left. Cardiac risk factors HTN: Yes HLD: previously but resolved, now under control DM: No Obese: Yes Smoker: No Personal history MT/TIA/CVA: Yes, multiple TIAs/CVAs Fam Hx MT in first degree relative <65yo: Yes, multiple (mother and brothers x2, <65yo) <Adeline Tijerina MD - Last Filed: 02/01/25 18:20> Related Data Home Medications: Home Medications ?Medication ?Instructions ?Recorded ?Confirmed ?Last Taken ?Type ropinirole 0.5 mg tablet 1 mg PO BID 12/13/24 02/01/25 01/30/25 20:00 History 1 mg losartan 100 mg tablet 100 mg PO HS 02/01/25 02/01/25 01/30/25 21:00 History 100 mg polyethylene glycol 3350 17 17 g PO DAILY PRN constipation 02/01/25 02/01/25 Unknown History gram/dose oral powder (Miralax) <Wilber Burnett APRN - Last Filed: 02/01/25 16:27> Allergies/Adverse Reactions: Allergies Allergy/AdvReac Type Severity Reaction Status Date / Time Penicillins Allergy Intermediate Hives Verified 02/01/25 08:18 Sulfa (Sulfonamide Allergy Intermediate Swelling Verified 02/01/25 08:18 Antibiotics) of Lip/Tongue/Throat vancomycin Allergy Intermediate Hives Verified 02/01/25 08:18 adhesive tape Allergy Mild Blister Verified 02/01/25 08:18 Latex, Natural Rubber Allergy Mild Itching Verified 02/01/25 08:18 <Wilber Burnett APRN - Last Filed: 02/01/25 16:27> FORMERLY [facility], [facility] Past Medical History Medical History: Medical History (Updated 02/01/25 @ 02:06 by Adeline Tijerina MD) Brain TIA multiple BMI 33.0-33.9,adult Insomnia Paroxysmal atrial fibrillation Gastroesophageal reflux disease Hyperlipidemia patient states previously but recently reported as controlled Post traumatic stress disorder Degenerative disc disease Incomplete paraplegia Sleep apnea History of MRSA infection Depression Anemia Fibromyalgia Scoliosis Arthritis Irritable bowel Hemorrhoids Asthma Anxiety Obesity (BMI 30-39.9) Stroke Hypertension Allergies <Wilber Burnett APRN - Last Filed: 02/01/25 16:27> Surgical History Surgical History: Surgical History History of tonsillectomy History of total cystectomy History of hernia repair History of cholecystectomy History of appendectomy History of cardiac catheterization History of ileal conduit History of back surgery <Wilber Burnett APRN - Last Filed: 02/01/25 16:27> Family History Family History: Family History Father Hypertension Cancer Mother Cancer Hypertension Anxiety Acute myocardial infarction <65yo Grandparent Cancer Sibling Hypertension A-fib Acute myocardial infarction <65yo Sibling Acute myocardial infarction <65yo <Wilber Burnett APRN - Last Filed: 02/01/25 16:27> Social History Social History: Social History Social History: Surrogate medical decision maker: Vicenta Mcnulty. Code status: Full code. Smoking status: Never smoker Second hand tobacco smoke exposure: Yes Alcohol intake: never Substance use: never Substance use type: does not use Do You Feel Safe in your Home?: Yes Lack of Transportation: No Lack of Food: Never True Current Housing: I Have Housing Concerned About Future Housing: No Difficulty Paying Gas/Electric Bills: No Difficulty Paying for Meds: No Currently Unemployed: No Education: High School Diploma/GED Difficulty w/ Childcare or Family Care: No Living arrangements: with family Occupation/Education: unemployed Gender identity (if verbalized by the patient): Female Spiritual care concerns: No <Wilber Burnett APRN - Last Filed: 02/01/25 16:27> Exam Narrative: GENERAL: Well-appearing, well-nourished, and in no acute distress. HEAD: Normocephalic, atraumatic. EYES: Non injected, non icteric ENT: Nares clear, no rhinorrhea or epistaxis. Gross auditory acuity intact. Moist mucous membranes. NECK: Supple. No meningismus. CHEST: Speaking in full sentences. No respiratory distress. Non labored. HEART: Regular rate and rhythm. . ABDOMEN: Obese but Soft, nondistended. Urostomy stoma appears appropriate with normal output. EXTREMITIES: Normal range of motion. Trace bilateral lower extremity edema. SKIN: Warm, dry, no rash. NEURO: No focal deficits. Alert and oriented. Answering questions. Following commands. Normal speech without aphasia or dysarthria. Some movement in bilateral lower extremities. PSYCH: Normal mood and affect. <Adeline Tijerina MD - Last Filed: 02/01/25 18:20> Course Vital Signs Vital signs: Vital Signs Temperature 98.1 F 01/31/25 15:56 Pulse Rate 75 01/31/25 15:56 Respiratory Rate 16 01/31/25 15:56 Blood Pressure 151/72 H 01/31/25 15:56 Pulse Oximetry 97 01/31/25 15:56 Oxygen Delivery Room Air 01/31/25 15:56 Temperature 96.4 F L 02/01/25 14:00 Pulse Rate 64 02/01/25 15:00 Respiratory Rate 16 02/01/25 14:00 Blood Pressure 129/84 02/01/25 14:00 Pulse Oximetry 100 02/01/25 14:00 Oxygen Delivery Room Air 02/01/25 08:00 <Wilber Burnett APRN - Last Filed: 02/01/25 16:27> Vital Signs Temperature 98.1 F 01/31/25 15:56 Pulse Rate 75 01/31/25 15:56 Respiratory Rate 16 01/31/25 15:56 Blood Pressure 151/72 H 01/31/25 15:56 Pulse Oximetry 97 01/31/25 15:56 Oxygen Delivery Room Air 01/31/25 15:56 Temperature 96.4 F L 02/01/25 14:00 Pulse Rate 64 02/01/25 15:00 Respiratory Rate 16 02/01/25 14:00 Blood Pressure 129/84 02/01/25 14:00 Pulse Oximetry 100 02/01/25 14:00 Oxygen Delivery Room Air 02/01/25 08:00 <Adeline Tijerina MD - Last Filed: 02/01/25 18:20> MDM - Chest Pain MDM Narrative Medical decision making narrative: Patient presents with intermittent chest pressure as well as abdominal pain, sweats, chills and lightheaded. She had some shortness of breath as well as nausea and vomiting. She is concerned about a urinary tract infection as she had experienced these symptoms before with a complicated urinary tract infection. Has a urostomy/ileal conduit. In the emergency department she is afebrile with vital signs that show hypertension. HEART SCORE History 2 highly suspicious 1 moderately suspicious 0 slightly suspicious History score [address] depression/elevation not due to LBBB, LVH, or digoxin [address] depression but LBBB, LVH, nonspecific repolarization changes 0 normal ECG score 0 Age 2 >/= 65 1 45-64 0 <45 Age score 1 Risk factors (HTN, hypercholesterolemia, DM, obesity with BMI >30, current smoker or cessation </=3mo), positive fam hx with parent or sibling with CVD before age 65, atherosclerotic disease (prior MT, PCI/CABG, CVA/TIA, or peripheral arterial disease) 2 >/= 3 risk factors or history of atherosclerotic dz 1 - 1-2 risk factors 0 no known risk factors Risk factor score 2 Initial Troponin 2 >3 times normal limit 1 1-3 times normal limit 0 less than or equal to normal limit Troponin score 0. Total HEART Score 3. Has 2 subsequently negative troponins. Less likely ischemic. BNP mildly elevated but not to a degree to suggest acute heart failure based on the reference range of the assay for patient's age. Urinalysis concerning for urinary tract infection. Previous culture from 12/15/2024 is reviewed which grew Klebsiella oxytoca which was pansensitive to the antibiotics tested. Although it is very possible that patient is colonized rather than of danielle new infection, out of an abundance of precaution and given her symptoms, will treat. Ceftriaxone ordered. Blood cultures first. CT abdomen pelvis with contrast had been ordered from triage. Rectal mural thickening but otherwise no acute process as below. Redemonstration of hydro. Plan was discharge but Complaining of dizziness/lightheadedness on reassessment. Meclizine and additional IV fluids ordered. CT negative as below. Reassessed 304, still reports dizziness/lightheadedness when rolls around on stretcher. Valium ordered. Patient continues to have a new symptom with each reassessment. She notes that her abdominal pain is beginning again. It is reviewed appears that she is chronically on opiate therapy and so 7.5 mg Peerless is ordered as this is her home regimen. Also ordered Bentyl. Patient has been in the emergency department for greater than 12 hours. Given this, I did discuss with on-call hospitalist Dr Franco who accepts admission which patient had requested/been amenable with. Culture in process. <Adeline Tijerina MD - Last Filed: 02/01/25 18:20> Differential Diagnosis Differential diagnosis: Likely stable angina, unstable angina pectoris, atypical chest pain, st elevation myocardial infarction, chest pain, biliary colic and other (Infection including intra-abdominal abscess, urinary tract infection, pneumonia; acute on chronic heart failure; PE) <Adeline Tijerina MD - Last Filed: 02/01/25 18:20> Lab Data Attestation: I reviewed the patient's lab results. <Adeline Tijerina MD - Last Filed: 02/01/25 18:20> Lab results narrative: CBC generally unremarkable except for mild abnormality on differential Normal renal function <Adeline Tijerina MD - Last Filed: 02/01/25 18:20> Result diagrams: 01/31/25 16:17 01/31/25 16:17 <Wilber Burnett APRN - Last Filed: 02/01/25 16:27> Labs: Lab Results 01/31/25 01/31/25 01/31/25 Range/Units 16:17 19:02 21:04 WBC 7.6 (4.5-10.0) K/mm3 RBC 4.97 (4.2-5.4) M/mm3 Hgb 13.7 (12.0-15.0) g/dL Hct 41.5 (37.0-47.0) % MCV 83.5 (80-100) fl MCH 27.6 (26-34) pg MCHC 33.0 (32-36) g/dl RDW 14.6 H (11.5-14.5) % Plt Count 223 (150-375) k/mm3 MPV 9.6 (7.4-10.4) fl Immature Gran % (Auto) 0.4 (0-0.5) % Neut % (Auto) 59.5 (45.5-73.1) % Lymph % (Auto) 31.1 (18.3-44.2) % Brooks % (Auto) 6.7 (2.6-8.5) % Eos % (Auto) 1.6 (0-4.4) % Baso % (Auto) 0.7 (0.2-1.2) % Lymph # (Auto) 2.37 (0.9-3.2) K/mm3 Brooks # (Auto) 0.5 (0.1-0.6) K/mm3 Eos # (Auto) 0.1 (0-0.3) K/mm3 Baso # (Auto) 0.1 (0.0-0.1) K/mm3 Abs Immat Gran (auto) 0.03 (0.00-0.031) K/mm3 Absolute Neuts (auto) 4.6 (1.3-6.7) K/mm3 Absolute Nucleated RBC 0.000 (0.0-0.012) K/mm3 Nucleated RBC % 0.0 (0.0-0.2) % PT 13.7 (11.1-14.7) Seconds INR 1.1 APTT 25.5 (22.3-36.8) Seconds D-Dimer 1.30 H (<0.48) ug/mL Sodium 133 L (137-145) mmol/L Potassium 4.5 (3.4-5.0) mmol/L Chloride 102 (98-107) mmol/L Carbon Dioxide 24 (22-30) mmol/L Anion Gap 7 (4-12) mmol/L BUN 16 (7-17) mg/dL Creatinine 0.48 L (0.7-1.0) mg/dL Estim Creat Clear Calc 131 ml/min Estimated GFR > 60 (59 - ) Glucose 113 H (65-110) mg/dL Calcium 8.9 (8.4-10.2) mg/dL Total Bilirubin 0.8 (0.2-1.3) mg/dL AST 37 H (14-36) U/L ALT 21 (6-35) U/L Alkaline Phosphatase 79 (38-126) U/L Troponin I < 0.012 < 0.012 < 0.012 (0.000-0.034) ng/mL NT-Pro-B Natriuret Pep 191 H (19.9-100) pg/mL Total Protein 8.2 (6.3-8.2) g/dL Albumin 4.3 (3.5-5.1) g/dL Lipase 43 (23-300) U/L Urine Color Light yellow (Yellow) Urine Appearance Clear (Clear) Urine pH 6.0 (5.0-9.0) Ur Specific Pingree 1.025 (1.001-1.035) Urine Protein Negative (Negative) mg/dL Urine Glucose (UA) Negative (Negative) mg/dL Urine Ketones Negative (Negative) mg/dL Ur Blood (Man) Trace-intact H (Negative) Urine Nitrate Negative (Negative) Urine Bilirubin Negative (Negative) Urine Urobilinogen 0.2 (<2.0) mg/dL Leukocyte Esterase Rfl Trace H (Negative) ERICK/UL Urine RBC 0-2 (0-2) /hpf Urine WBC 21-50 H (0-3) /hpf Ur Squamous Epith Cells None seen (Few) /hpf Urine Bacteria 4+ H /hpf Urine Casts 3-5 <Wilber Burnett, PSYCHIATRIST - Last Filed: 02/01/25 16:27> Lab Results 01/31/25 01/31/25 01/31/25 Range/Units 16:17 19:02 21:04 WBC 7.6 (4.5-10.0) K/mm3 RBC 4.97 (4.2-5.4) M/mm3 Hgb 13.7 (12.0-15.0) g/dL Hct 41.5 (37.0-47.0) % MCV 83.5 (80-100) fl MCH 27.6 (26-34) pg MCHC 33.0 (32-36) g/dl RDW 14.6 H (11.5-14.5) % Plt Count 223 (150-375) k/mm3 MPV 9.6 (7.4-10.4) fl Immature Gran % (Auto) 0.4 (0-0.5) % Neut % (Auto) 59.5 (45.5-73.1) % Lymph % (Auto) 31.1 (18.3-44.2) % Brooks % (Auto) 6.7 (2.6-8.5) % Eos % (Auto) 1.6 (0-4.4) % Baso % (Auto) 0.7 (0.2-1.2) % Lymph # (Auto) 2.37 (0.9-3.2) K/mm3 Brooks # (Auto) 0.5 (0.1-0.6) K/mm3 Eos # (Auto) 0.1 (0-0.3) K/mm3 Baso # (Auto) 0.1 (0.0-0.1) K/mm3 Abs Immat Gran (auto) 0.03 (0.00-0.031) K/mm3 Absolute Neuts (auto) 4.6 (1.3-6.7) K/mm3 Absolute Nucleated RBC 0.000 (0.0-0.012) K/mm3 Nucleated RBC % 0.0 (0.0-0.2) % PT 13.7 (11.1-14.7) Seconds INR 1.1 APTT 25.5 (22.3-36.8) Seconds D-Dimer 1.30 H (<0.48) ug/mL Sodium 133 L (137-145) mmol/L Potassium 4.5 (3.4-5.0) mmol/L Chloride 102 (98-107) mmol/L Carbon Dioxide 24 (22-30) mmol/L Anion Gap 7 (4-12) mmol/L BUN 16 (7-17) mg/dL Creatinine 0.48 L (0.7-1.0) mg/dL Estim Creat Clear Calc 131 ml/min Estimated GFR > 60 (59 - ) Glucose 113 H (65-110) mg/dL Calcium 8.9 (8.4-10.2) mg/dL Total Bilirubin 0.8 (0.2-1.3) mg/dL AST 37 H (14-36) U/L ALT 21 (6-35) U/L Alkaline Phosphatase 79 (38-126) U/L Troponin I < 0.012 < 0.012 < 0.012 (0.000-0.034) ng/mL NT-Pro-B Natriuret Pep 191 H (19.9-100) pg/mL Total Protein 8.2 (6.3-8.2) g/dL Albumin 4.3 (3.5-5.1) g/dL Lipase 43 (23-300) U/L Urine Color Light yellow (Yellow) Urine Appearance Clear (Clear) Urine pH 6.0 (5.0-9.0) Ur Specific Pingree 1.025 (1.001-1.035) Urine Protein Negative (Negative) mg/dL Urine Glucose (UA) Negative (Negative) mg/dL Urine Ketones Negative (Negative) mg/dL Ur Blood (Man) Trace-intact H (Negative) Urine Nitrate Negative (Negative) Urine Bilirubin Negative (Negative) Urine Urobilinogen 0.2 (<2.0) mg/dL Leukocyte Esterase Rfl Trace H (Negative) ERICK/UL Urine RBC 0-2 (0-2) /hpf Urine WBC 21-50 H (0-3) /hpf Ur Squamous Epith Cells None seen (Few) /hpf Urine Bacteria 4+ H /hpf Urine Casts 3-5 <Adeline Tijerina MD - Last Filed: 02/01/25 18:20> Imaging Data Radiologist's impression: Impressions Chest X-Ray 01/31/25 17:09 IMPRESSION: 1. No acute cardiopulmonary disease. Abdomen/Pelvis CT 01/31/25 22:14 IMPRESSION: Mural thickening within the rectum, an interval change from prior. Redemonstration of mild hydronephrosis of the right kidney, unchanged from prior. Otherwise, no acute findings within the lower chest, abdomen or pelvis, as detailed above Chest CTA 02/01/25 00:36 IMPRESSION: No pulmonary embolus. No thoracic aortic dissection. Trace bibasilar atelectasis. CT Brain stat rad: No hemorrhage, hydrocephalus, mass effect or herniation. Bones unremarkable. Impression: No significant abnormality seen. <Adeline Tijerina MD - Last Filed: 02/01/25 18:20> ECG Data EKG #1: Attestation: I personally reviewed and interpreted this ECG as follows: <Adeline Tijerina MD - Last Filed: 02/01/25 18:20> ECG completion date: 01/31/25 <Adeline Tijerina MD - Last Filed: 02/01/25 18:20> ECG completion time: 15:56 <Adeline Tijerina MD - Last Filed: 02/01/25 18:20> Interpretation: Normal sinus rhythm at a rate of 60 beats per minute. MO interval 177. QRS 90. QT/QTC 406/435. Good R-wave progression across the precordial leads. T-wave flattening in 3 but upright in contiguous inferior leads. No T-wave inversions across precordial leads. <Adeline Tijerina MD - Last Filed: 02/01/25 18:20> Discharge Plan Discharge Clinical Impression: UTI (urinary tract infection), Hydronephrosis, Mild bibasilar atelectasis, Chest pain, Dizziness <Wilber Burnett APRN - Last Filed: 02/01/25 16:27> Patient Disposition: Still a Patient <Wilber Burnett APRN - Last Filed: 02/01/25 16:27> Condition: Stable <Wilber Burnett APRN - Last Filed: 02/01/25 16:27>
--- NOTE | 2025-01-31 16:20 | PC.NURSE ---
Attempted for peripheral IV x1 with no success. Able to obtain blood labs.
[2025-01-31 16:24] LABS: Hematocrit 41.5 % (37.0-47.0); Hemoglobin 13.7 g/dL (12.0-15.0); Immature Granulocyte Percent A 0.4 % (0-0.5); Lymphocytes Absolute Auto 2.37 K/mm3 (0.9-3.2); Mean Corpuscular HGB Conc 33.0 g/dl (32-36); Mean Corpuscular Hemoglobin 27.6 pg (26-34); Mean Corpuscular Volume 83.5 fl (80-100); Nucleated Red Blood Cells Absolute Auto 0.000 K/mm3 (0.0-0.012); Nucleated Red Blood Cells Perc 0.0 % (0.0-0.2); Platelet Count Result 223 k/mm3 (150-375); Red Blood Count 4.97 M/mm3 (4.2-5.4); White Blood Count 7.6 K/mm3 (4.5-10.0)
[2025-01-31 16:38] LABS: Alanine Aminotransferase 21 U/L (6-35); Albumin Level 4.3 g/dL (3.5-5.1); Alkaline Phosphatase 79 U/L (38-126); Anion Gap 7 mmol/L (4-12); Aspartate Amino Transferase 37 U/L (14-36); Bilirubin,Total 0.8 mg/dL (0.2-1.3); Blood Urea Nitrogen 16 mg/dL (7-17); Calcium 8.9 mg/dL (8.4-10.2); Carbon Dioxide 24 mmol/L (22-30); Chloride 102 mmol/L (98-107); Estimated CRCL calculation 131 ml/min; Estimated Glomerular Filt Rate > 60; Glucose 113 mg/dL (65-110); Lipase 43 U/L (23-300); Potassium 4.5 mmol/L (3.4-5.0); Sodium 133 mmol/L (137-145); Total Protein 8.2 g/dL (6.3-8.2)
[2025-01-31 16:48] LABS: Troponin I < 0.012 ng/mL (0.000-0.034)
[2025-01-31 19:30] LABS: Troponin I < 0.012 ng/mL (0.000-0.034)
[2025-01-31 19:52] LABS: INR 1.1; Partial Thromboplastin Time 25.5 Seconds (22.3-36.8); Prothrombin Time 13.7 Seconds (11.1-14.7)
[2025-01-31 20:36] VITALS: BP 208/112; PULSE 78; RESP 18; TEMP 36.6; O2SAT 98
[2025-01-31] MEDS: ASPIRIN 81 MG CHEWABLE TABLET 324 MG PO (20:40)
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
--- OUTSIDE RECORDS SUMMARY | 2025-01-31 21:17 | XMS_ITS | Referral Summary ---
Author Organization [facility] Address [address] [place] [address] Care Team Providers Care Rail Switchman Name Role Phone Lidia Barajas MD Unavailable [...] for pain 42 tablet 2 Active multivit beopxxjg-wvmq-DN-c alcium (THERA-M) 9 mg iron-400 mcg tabletIndications: [...] (10/24/2021): Added automatically from request for surgery [id number] Postlaminectomy syndrome, lumbar region 10/25/19 Overview (10/24/2021): Added automatically from request for surgery [id number] Assessment & Plan (07/03/2022 3:48 PM CLINICAL NURSING INSTRUCTOR): Ms. Mcnulty is doing well following lumbar [...] (10/24/2021): Added automatically from request for surgery [id number] Other chest pain 01/19/2020 Assessment & Plan [...] for exchange this admission Suprapubic catheter ([facility]) 11/16/2019 Essential hypertension 11/16/2019 Hypertensive urgency 11/16/2019 [...] (11/25/2019): Added automatically from request for surgery [id number] Chronic lumbar radiculopathy 01/21/2019 Chronic back pain 01/21/2019 Spinal stenosis of lumbar region with radiculopa thy 12/04/2018 Assessment & Plan (07/18/2021 10:23 AM CLINICAL NURSING INSTRUCTOR): Assessment Healed fusion L2-5 severe retrolisthesis with [...] (06/18/2018): Added automatically from request for surgery [id number] Assessment & Plan (12/04/2018 3:42 PM CDT): Healing fusion C6-7 Continued observation. Assessment & Plan (08/12/2018 10:35 AM CLINICAL NURSING INSTRUCTOR): Assessment Healing fusion C6-7 Plan Talked about do's and don'ts she is still to maintain her initial restrictions and return in 6 weeks for an x-ray Assessment & Plan (06/25/2018 2:43 PM CLINICAL NURSING INSTRUCTOR): Angelina was recently hospitalized at [facility] and diagnosed with a disc osteophyte [...] (06/18/2018): Added automatically from request for surgery [id number] Cervical pain (neck) 06/13/2018 Asthma 11/13/2013 Overview [...] any clubs o r organizations such as cheondoism groups, unions, fraternal or athletic groups, or [...] on file Legal Sex Female 11:49 PM CLINICAL NURSING INSTRUCTOR Gender Identity Not on file Sexual [...] Plan Chronic Care Management Worsening( 10:12 AM CLINICAL NURSING INSTRUCTOR) Milvia Mireles RN Note: Problem: Chronic Pain Goals: 1. Minimize further functional decline 2. Maximize quality of life 3. Control pain Strategies: - Activity/exercise program recommendation - Conservative stepwise pain medicine strategy with multi-disciplinary approach - Recommend healthy lifestyle strategies and compensatory methods as needed Medical Devices Implanted Type Area Complaint Supervisor Device Identifier Shelf Expiration Date Model / Serial / Lot Spinal Cord Stimulator-2016 Implanted:01/28 (Quantity not on file) Spinal Cord Stimulator Left: Hip Nevro Spinal Cord Stimulation System [id number] / / Description:Closed Bore only 1.5T or [...] ensure it has returned to pre-MRI settings. [employer] 700-025 I Factor Allograft Putty Syringe Graft 2.5cc Bone - [id number] Implanted:Qty: 1 on 07/03/2018 by Zachary Rothman MD at [facility] N/A: Spine Cervical Cer[employer] Inc 03/29/2021 700-025 / / [id number] Plate 1-Level 14 Mm Cervical - [id number] Implanted:Qty: 1 on 07/03/2018 by Zachary Rothman MD at [facility] N/A: Spine Cervical [employer] 30-0114 / / Screw 4.0x14mm Self Drilling Variable - [id number] Implanted:Qty: 4 on 07/03/2018 by Zachary Rothman MD at [facility] N/A: Spine Cervical [employer] [id number] / / Cage Spinal [id number] 7 Degree Porous Coated Latex Free - [id number] Implanted:Qty: 1 on 07/03/2018 by Zachary Rothman MD at [facility] N/A: Spine Cervical Spinal Elements [id number] / / Depuy Synthes Spine [id number] Substitute Bone Graft Fibergraft Gps Medium Putty 6cc - [id number] Implanted:Qty: 1 on 11/29/2021 by Dave Louis MD at [facility] N/A: Lumbar-Sa cral Spine Depuy Synthes Spine [id number] 10/18/2023 [id number] / / [id number] [employer] Inc Osteosponge Allograft Chips Radiolucent Thk4-10mm Graft 30cc Bone [id number] - [id number] - [id number] Implanted:Qty: 1 on 11/29/2021 by Dave Louis MD at [facility] N/A: Lumbar-Sa cral Spine [employer] Inc 10/14/2024 [id number] / [id number] / Depuy Synthes Spine Cage Post Spinal 4d Plif Ti [id number] - [id number] Implanted:Qty: 1 on 11/29/2021 by Dave Louis MD at [facility] N/A: Lumbar-Sa cral Spine Depuy Synthes Spine [id number] 07/30/2024 [id number] / / [id number] Depuy Synthes Spine Expedium 5.5mm 80mm Line Prebent Rodney Spinal Titanium Nonsterile [id number] - [id number] Implanted:Qty: 1 on 11/29/2021 by Dave Louis MD at [facility] N/A: Lumbar-Sa cral Spine Depuy Synthes Spine [id number] / / Depuy Synthes Spine Expedium 5.5mm 85mm Line Prebent Rodney Spinal Titanium Nonsterile [id number] - [id number] Implanted:Qty: 1 on 11/29/2021 by Dave Louis MD at [facility] N/A: Lumbar-Sa cral Spine Depuy Synthes Spine [id number] / / Depuy Synthes Spine Expedium 5.5mm 45mm Polyaxial Spine Screw Bone Titanium 5.5mm Rodney [id number] - [id number] Implanted:Qty: 2 on 11/29/2021 by Dave Louis MD at [facility] N/A: Lumbar-Sa cral Spine Depuy Synthes Spine [id number] / / Depuy Synthes Spine Expedium 6.5mm 45mm Polyaxial Spine Screw Bone Titanium 5.5mm Rodney [id number] - [id number] Implanted:Qty: 3 on 11/29/2021 by Dave Louis MD at [facility] N/A: Lumbar-Sa cral Spine Depuy Synthes Spine [id number] / / Depuy Synthes Spine Expedium 1 Inner Monoaxial Spine Screw Set Titanium [id number] - [id number] Implanted:Qty: 6 on 11/29/2021 by Dave Louis MD at [facility] N/A: Lumbar-Sa cral Spine Depuy Synthes Spine [id number] / / Depuy Synthes Spine Expedium 7mm 45mm 1 Innie Polyaxial Spine Screw Bone Titanium [id number] - [id number] Implanted:Qty: 1 on 11/29/2021 by Dave Louis MD at [facility] N/A: Lumbar-Sa cral Spine Depuy Synthes Spine [id number] / / Procedures Procedure Name Priority Date/Time [...] 11/29/2019 8:04 AM Admit Type: Inpatient Room: [facility] 4 Date of : [...] the bowel preparation was evaluated usingthe BBPS ([place] Bowel Preparation Scale) with scores of: Right [...] AM CDT) Hep A IgM Nonreactive Nonreactive [facility] Comment: Interpretive Data: If Hep A IgM Ab is reported as Equivocal, a new sample should be drawn in two weeks for testing. Current interpretive data was last revised on 19. Hep B core IgM Nonreactive Nonreactive [facility] Comment: Interpretive Data If HepB Core IgM Ab is reported as Equivocal, a new sample should be drawn in two weeks for testing. Current interpretive data was last revised on 19. Hep C Ab Nonreactive Nonreactive [facility] Comment: Interpretive Data Nonreactive: Antibodies to [...] last revised on 2019. HepBsAg Nonreactive Nonreactive [facility] Blood specimen (specimen) 11/17/2019 4:13 AM CDT 11/17/2019 4:31 AM CDT [facility] MICROBIOLOGY - GENERAL ORDERABLES Final Result [facility] Zahraa Joshi Seth Department [place] [address] from Last 3 Months or Most Recently Relevant to Health Maintenance Insurance [employer] MEDICARE [facility] Address: [address] [address] [place] [address] [facility] [place] [address] [facility] MEDICARE [facility] MEDIC[facility] Address: [address] [address] [place] [address] Advance Directives For more information, please contact: [phone] Documents on File Type Date Recorded Patient Tractor Engine Mechanic Expl anation Power of Railroad Signal Technician 11/29/2021 11:46 AM * Full Code (Latest [...] First Alternate Health Care Agent Care Teams Rail Switchman Relationship Specialty Start Date End Date Devabhaktuni, Ramadevi R., MD [address] [address] PCP - General Family Medicine 07/16/21 Lidia Barajas MD Anesthesiologist Anesthesiology 01/13/20
--- OUTSIDE RECORDS SUMMARY | 2025-01-31 21:17 | XMS_ITS | Encounter Summary ---
Author Organization [facility] Address [address] [place] [address] Care Team Providers Care Movement Education Specialist Name Role Phone Fiordaliza Snell MD Primary Care Provider Encounter Details Date Type Department Care Team (Late st Contact Info) Description 05/06/2001 Emergency [facility] Pratik Jules MD [facility] [place] [address] Er, Authorized P NO ADDRESS ON FILE ABDOMINAL PAIN OTHER SPEC SITE (Primary Dx) Social History Tobacco Use Types Packs/Day Years Used Date Smoking Tobacco: Never Assessed Comments Unknown Sex and Gender Information Value Date Recorded Sex Assigned at Not on file Legal Sex Female 2:43 AM 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 Gender Identity Not on file Sexual Orientation Not on file documented as of this encounter Plan of Treatment Not on file documented as of this encounter Visit Diagnoses Diagnosis Abdominal pain, other specified site- Primary documented in this encounter Additional Health Concerns Infection Onset Date Last Indicated Resolved Time R/O COVID-19 07/02/2020 07/02/2020 07/02/2020 8:53 PM ASSEMBLER 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 MRSA Comment:Resolved per Type and Duration of Precautions Recommended for Selected Infections and Conditions document 2023 update 07/02/2020 07/02/2020 03/16/20 24 10:58 AM CDT R/O COVID-19 07/10/2020 07/10/2020 07/10/2020 5:01 PM ASSEMBLER 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 documented as of this encounter Care Teams Movement Education Specialist Relationship Specialty Start Date End Date Fiordaliza nSell MD PCP - General Family Practice 09/09/22 documented as of this encounter
--- OUTSIDE RECORDS SUMMARY | 2025-01-31 21:17 | XMS_ITS | Encounter Summary ---
Author Organization [facility] Address [address] [place] [address] Care Team Providers Care Waistband Setter Name Role Phone Fiordaliza Snell MD Primary Care Provider Encounter Details Date Type Department Care Team (Late st Contact Info) Description 10/10/2003 Emergency [facility] Franki Grimes DO [address] [place] [address] Er, Authorized P NO ADDRESS ON FILE LUMBAGO (Primary Dx) Social History Tobacco Use Types Packs/Day Years Used Date Smoking Tobacco: Never Assessed Comments Unknown Sex and Gender Information Value Date Recorded Sex Assigned at Not on file Legal Sex Female 2:43 AM ROLLING MACHINE TENDER Gender Identity Not on file Sexual Orientation Not on file documented as of this encounter Plan of Treatment Not on file documented as of this encounter Visit Diagnoses Diagnosis Lumbago- Primary documented in this encounter Additional Health Concerns Infection Onset Date Last Indicated Resolved Time R/O COVID-19 07/02/2020 07/02/2020 07/02/2020 8:53 PM ROLLING MACHINE TENDER MRSA Comment:Resolved per Type and Duration of Precautions Recommended for Selected Infections and Conditions document 2023 update 07/02/2020 07/02/2020 03/16/20 24 10:58 AM CDT R/O COVID-19 07/10/2020 07/10/2020 07/10/2020 5:01 PM ROLLING MACHINE TENDER documented as of this encounter Care Teams Waistband Setter Relationship Specialty Start Date End Date Fiordaliza Snell MD PCP - General Family Practice 09/09/22 documented as of this encounter
--- OUTSIDE RECORDS SUMMARY | 2025-01-31 21:17 | XMS_ITS | Encounter Summary ---
Author Organization [facility] Address [address] [place] [address] Care Team Providers Care Air Director Name Role Phone Fiordaliza Snell MD [...] on file Legal Sex Female 2:43 AM CORPORATE JOB TITLES Gender Identity Not on file Sexual Orientation [...] ORDERABLES Final Resu lt Performing Organization Address [facility] Phone Number INTERFACE SYSTEM Refer to clinic/hospital [...] ORDERABLES Final Resul t Performing Organization Address [facility] Phone Number INTERFACE SYSTEM Refer to clinic/hospital department * (ABNORMAL) AMYLASE (10/13/2004 9:56 AM CDT) AMYLASE 24(L) 28 - 100 U/L INTERFACE SYSTEM 10/13/2004 9:56 AM CDT Russell Marie CHEMISTRY ORDERABLES Final Resul t Performing Organization Address [facility] Phone Number INTERFACE SYSTEM Refer to clinic/hospital department * LIPASE (10/13/2004 9:56 AM CDT) LIPASE 20 13 - 60 U/L INTERFAC E SYSTEM 10/13/2004 9:56 AM CDT [facility] CHEMISTRY ORDERABLES Final Resul t Performing Organization Address [facility] Phone Number INTERFACE SYSTEM Refer to clinic/hospital [...] K/uL INTERFACE SYSTEM 10/13/2004 5:00 AM CDT [facility] HEMATOLOGY ORDERABLES Final Resu lt Performing Organization Address [facility] Phone Number INTERFACE SYSTEM Refer to clinic/hospital [...] ORDERABLES Final Resu lt Performing Organization Address [facility] Phone Number INTERFACE SYSTEM Refer to clinic/hospital department * (ABNORMAL) C-REACTIVE PROTEIN (10/13/2004 5:00 AM CDT) CRP 1.3(H) 0.0 - 0.8 mg/dL INTERFACE SYSTEM 10/13/2004 5:00 AM CDT Russell Salazar CHEMISTRY ORDERABLES Final Resul t Performing Organization Address [facility] Phone Number INTERFACE SYSTEM Refer to clinic/hospital [...] URINE ORDERABLES Final Result Performing Organization Address [facility] de Phone Number INTERFACE SYSTEM [...] ORDERABLES Final Resu lt Performing Organization Address [place]/[facility] Phone Number INTERFACE SYSTEM Refer to clinic/hospital department * (ABNORMAL) C-REACTIVE PROTEIN (10/12/2004 9:17 PM CDT) CRP 1.4(H) 0.0 - 0.8 mg/dL INTERFACE SYSTEM 10/12/2004 9:[address] MD CHEMISTRY ORDERABLES Final Resul t Performing Organization Address [facility] Phone Number INTERFACE SYSTEM Refer to clinic/hospital department * LIPASE (10/12/2004 9:17 PM CDT) LIPASE 41 13 - 60 U/L INTERFAC E SYSTEM 10/12/2004 9:[address] MD CHEMISTRY ORDERABLES Final Resul t Performing Organization Address [place]/[facility] de Phone Number INTERFACE SYSTEM Refer to clinic/hospital department * AMYLASE (10/12/2004 9:17 PM CDT) AMYLASE 39 28 - 100 U/L INTERFACE SYSTEM Comment:Previous specimen us ed; approved by floor. 10/12/2004 9:[address] MD CHEMISTRY ORDERABLES Final Resul t Performing Organization Address [place]/[facility] Phone Number INTERFACE SYSTEM Refer to clinic/hospital [...] ORDERABLES Final Resu lt Performing Organization Address [facility] Phone Number INTERFACE SYSTEM Refer to clinic/hospital [...] ORDERABLES Final Resu lt Performing Organization Address [facility] Phone Number INTERFACE SYSTEM Refer to clinic/hospital [...] ORDERABLES Final Resul t Performing Organization Address [facility] Phone Number INTERFACE SYSTEM Refer to clinic/hospital department documented in this encounter Visit Diagnoses Diagnosis Abdominal pain, right lower quadrant- Primary documented in this encounter Additional Health Concerns Infection Onset Date Last Indicated Resolved Time R/O COVID-19 07/02/2020 07/02/2020 07/02/2020 8:53 PM CORPORATE JOB TITLES MRSA Comment:Resolved per Type and Duration of Precautions Recommended for Selected Infections and Conditions document 2023 update 07/02/2020 07/02/2020 03/16/20 10:58 AM CDT R/O COVID-19 07/10/2020 07/10/2020 07/10/2020 5:01 PM CORPORATE JOB TITLES documented as of this encounter Care Teams Air Director Relationship Specialty Start Date End Date Fiordaliza Snell MD PCP - General Family Practice 09/09/22 documented as of this encounter
--- OUTSIDE RECORDS SUMMARY | 2025-01-31 21:17 | XMS_ITS | Encounter Summary ---
Author Organization [facility] Address [address] [place] [address] Care Team Providers Care Certified Flight Instructor Name Role Phone Fiordaliza Snell MD [...] on file Legal Sex Female 2:43 AM CAN CRIMPER Gender Identity Not on file Sexual Orientation Not on file documented as of this encounter Plan of Treatment Not on file documented as of this encounter Visit Diagnoses Diagnosis Chronic salpingitis and oophoritis- Primary documented in this encounter Additional Health Concerns Infection Onset Date Last Indicated Resolved Time R/O COVID-19 07/02/2020 07/02/2020 07/02/2020 8:53 PM CAN CRIMPER MRSA Comment:Resolved per Type and Duration of Precautions Recommended for Selected Infections and Conditions document 2023 update 07/02/2020 07/02/2020 03/16/20 24 10:58 AM CDT R/O COVID-19 07/10/2020 07/10/2020 07/10/2020 5:01 PM CAN CRIMPER documented as of this encounter Care Teams Certified Flight Instructor Relationship Specialty Start Date End Date Fiordaliza Snell MD PCP - General Family Practice 09/09/22 documented as of this encounter
--- OUTSIDE RECORDS SUMMARY | 2025-01-31 21:17 | XMS_ITS | Encounter Summary ---
Author Organization [facility] Address [address] [place] [address] Care Team Providers Care Training And Development Professional Name Role Phone Fiordaliza Snell MD Primary Care Provider Encounter Details Date Type Department Care Team (Latest Contact Info) Description 11/13/2004 Outpatient Historical [facility] RONALD Garcia, Anjali Gupta MD NO ADDRESS ON FILE LUMP OR MASS IN BREAST (Primary Dx) Social History Tobacco Use Types Packs/Day Years Used Date Smoking Tobacco: Never Assessed Comments Unknown Sex and Gender Information Value Date Recorded Sex Assigned at Not on file Legal Sex Female 2:43 AM SENIOR HUMAN RESOURCES REPRESENTATIVE Gender Identity Not on file Sexual Orientation Not on file documented as of this encounter Plan of Treatment Not on file documented as of this encounter Visit Diagnoses Diagnosis Lump or mass in breast- Primary documented in this encounter Additional Health Concerns Infection Onset Date Last Indicated Resolved Time R/O COVID-19 07/02/2020 07/02/2020 07/02/2020 8:53 PM SENIOR HUMAN RESOURCES REPRESENTATIVE MRSA Comment:Resolved per Type and Duration of Precautions Recommended for Selected Infections and Conditions document 2023 update 07/02/2020 07/02/2020 03/16/20 24 10:58 AM CDT R/O COVID-19 07/10/2020 07/10/2020 07/10/2020 5:01 PM SENIOR HUMAN RESOURCES REPRESENTATIVE documented as of this encounter Care Teams Training And Development Professional Relationship Specialty Start Date End Date Fiordaliza Snell MD PCP - General Family Practice 09/09/22 documented as of this encounter
--- OUTSIDE RECORDS SUMMARY | 2025-01-31 21:17 | XMS_ITS | Clinical Summary ---
Author Organization [facility] al Address [address] [place] [address] Care Team Providers Care Band Cutter Name Role Phone Lidia Barajas MD Unavailable [...] for pain 42 tablet 2 Active multivit ziqdwypv-msxk-CB-c alcium (THERA-M) 9 mg iron-400 mcg tabletIndications: [...] (10/24/2021): Added automatically from request for surgery [id number] Postlaminectomy syndrome, lumbar region 10/25/19 Overview (10/24/2021): Added automatically from request for surgery [id number] Assessment & Plan (07/03/2022 3:48 PM TECHNICAL INSTRUCTOR COURSE DEVELOPER): Ms. Mcnulty is doing well following lumbar [...] (10/24/2021): Added automatically from request for surgery [id number] Other chest pain 01/19/2020 Assessment & Plan [...] need for exchange this admission Suprapubic catheter ([facility]) 11/16/2019 Essential hypertension 11/16/2019 Hypertensive urgency 11/16/2019 [...] (11/25/2019): Added automatically from request for surgery [id number] Chronic lumbar radiculopathy 01/21/2019 Chronic back pain 01/21/2019 Spinal stenosis of lumbar region with radiculopa thy 12/04/2018 Assessment & Plan (07/18/2021 10:23 AM TECHNICAL INSTRUCTOR COURSE DEVELOPER): Assessment Healed fusion L2-5 severe retrolisthesis with [...] (06/18/2018): Added automatically from request for surgery [id number] Assessment & Plan (12/04/2018 3:42 PM CDT): Healing fusion C6-7 Continued observation. Assessment & Plan (08/12/2018 10:35 AM TECHNICAL INSTRUCTOR COURSE DEVELOPER): Assessment Healing fusion C6-7 Plan Talked about do's and don'ts she is still to maintain her initial restrictions and return in 6 weeks for an x-ray Assessment & Plan (06/25/2018 2:43 PM TECHNICAL INSTRUCTOR COURSE DEVELOPER): Angelina was recently hospitalized at [facility] and diagnosed with a disc [...] (06/18/2018): Added automatically from request for surgery [id number] Cervical pain (neck) 06/13/2018 Asthma 11/13/2013 Overview [...] Bladder tumor Acute CVA (cerebrovascular a ccident) ([facility]) 12/27/2021 Family History Medical History Relation Name [...] often do you attend chur ch or moravian services? More than 4 times per year 03/07/2022 Do you belong to any clubs o r organizations such as islam groups, unions, fraternal or athletic groups, or [...] file Legal Sex Female 11:49 PM TECHNICAL INSTRUCTOR COURSE DEVELOPER Gender Identity Not on file Sexual [...] Plan Chronic Care Management Worsening( 10:12 AM TECHNICAL INSTRUCTOR COURSE DEVELOPER) Milvia Mireles RN Note: Problem: Chronic Pain Goals: 1. Minimize further functional decline 2. Maximize quality of life 3. Control pain Strategies: - Activity/exercise program recommendation - Conservative stepwise pain medicine strategy with multi-disciplinary approach - Recommend healthy lifestyle strategies and compensatory methods as needed Medical Devices Implanted Type Area Underwater Photographer Device Identifier Shelf Expiration Date Model / Serial / Lot Spinal Cord Stimulator-2016 Implanted:01/28 (Quantity not on file) Spinal Cord Stimulator Left: Hip Nevro Spinal Cord Stimulation System [id number] / / Description:Closed Bore only 1.5T or [...] ensure it has returned to pre-MRI settings. [employer] 700-025 I Factor Allograft Putty Syringe Graft 2.5cc Bone - [id number] Implanted:Qty: 1 on 07/03/2018 by Zachary Rothman MD at [facility] N/A: Spine Cervical Ceraped[employer] Inc 03/29/2021 700-025 / / [id number] Plate 1-Level 14 Mm Cervical - [id number] Implanted:Qty: 1 on 07/03/2018 by Zachary Rothman MD at [facility] N/A: Spine Cervical [employer] 30-0114 / / Screw 4.0x14mm Self Drilling Variable - [id number] Implanted:Qty: 4 on 07/03/2018 by Zachary Rothman MD at [facility] N/A: Spine Cervical [employer] 31-4014 / / Cage Spinal [id number] 7 Degree Porous Coated Latex Free - [id number] Implanted:Qty: 1 on 07/03/2018 by Zachary Rothman MD at [facility] N/A: Spine Cervical Spinal Elements [id number] / / Depuy Synthes Spine [id number] Substitute Bone Graft Fibergraft Gps Medium Putty 6cc - [id number] Implanted:Qty: 1 on 11/29/2021 by Dave Louis MD at [facility] N/A: Lumbar-Sa cral Spine Depuy Synthes Spine [id number] 10/18/2023 [id number] / / [id number] Bacter[employer] International Inc Osteosponge Allograft Chips Radiolucent Thk4-10mm Graft 30cc Bone [id number] - [id number] - [id number] Implanted:Qty: 1 on 11/29/2021 by Dave Louis MD at [facility] N/A: Lumbar-Sa cral Spine [employer] Inc 10/14/2024 [id number] / [id number] / Depuy Synthes Spine Cage Post Spinal 4d Plif Ti [id number] - [id number] Implanted:Qty: 1 on 11/29/2021 by Dave Louis MD at [facility] N/A: Lumbar-Sa cral Spine Depuy Synthes Spine [id number] 07/30/2024 [id number] / / [id number] Depuy Synthes Spine Expedium 5.5mm 80mm Line Prebent Rodney Spinal Titanium Nonsterile [id number] - [id number] Implanted:Qty: 1 on 11/29/2021 by Dave Louis MD at [facility] N/A: Lumbar-Sa cral Spine Depuy Synthes Spine [id number] / / Depuy Synthes Spine Expedium 5.5mm 85mm Line Prebent Rodney Spinal Titanium Nonsterile [id number] - [id number] Implanted:Qty: 1 on 11/29/2021 by Dave Louis MD at [facility] N/A: Lumbar-Sa cral Spine Depuy Synthes Spine [id number] / / Depuy Synthes Spine Expedium 5.5mm 45mm Polyaxial Spine Screw Bone Titanium 5.5mm Rodney [id number] - [id number] Implanted:Qty: 2 on 11/29/2021 by Dave Louis MD at [facility] N/A: Lumbar-Sa cral Spine Depuy Synthes Spine [id number] / / Depuy Synthes Spine Expedium 6.5mm 45mm Polyaxial Spine Screw Bone Titanium 5.5mm Rodney [id number] - [id number] Implanted:Qty: 3 on 11/29/2021 by Dave Louis MD at [facility] N/A: Lumbar-Sa cral Spine Depuy Synthes Spine [id number] / / Depuy Synthes Spine Expedium 1 Inner Monoaxial Spine Screw Set Titanium [id number] - [id number] Implanted:Qty: 6 on 11/29/2021 by Dave Louis MD at [facility] N/A: Lumbar-Sa cral Spine Depuy Synthes Spine [id number] / / Depuy Synthes Spine Expedium 7mm 45mm 1 Innie Polyaxial Spine Screw Bone Titanium [id number] - [id number] Implanted:Qty: 1 on 11/29/2021 by Dave Louis MD at [facility] N/A: Lumbar-Sa cral Spine Depuy Synthes Spine [id number] / / Procedures Procedure Name Priority Date/Time [...] 11/29/2019 8:04 AM Admit Type: Inpatient Room: [facility] 4 Date of : 1965 Instrument Name: [...] the bowel preparation was evaluated usingthe BBPS ([place] Bowel Preparation Scale) with scores of: Right [...] AM CDT) Hep A IgM Nonreactive [facility] Comment: Interpretive Data: If Hep A IgM Ab is reported as Equivocal, a new sample should be drawn in two weeks for testing. Current interpretive data was last revised on 19. Hep B core IgM Nonreactive Nonreactive [facility] Comment: Interpretive Data If HepB Core IgM Ab is reported as Equivocal, a new sample should be drawn in two weeks for testing. Current interpretive data was last revised on 19. Hep C Ab Nonreactive Nonreactive [facility] Comment: Interpretive Data Nonreactive: Antibodies to HCV [...] [address] Department [place] [address] from Last 3 Months or Most Recently Relevant to Health Maintenance Insurance UHC MEDICARE ADVANTAGE [facility] MEDICARE [facility] MEDICARE U[employer] MEDICARE ADVANTAGE Advance Directives For more information, please contact: [phone] Documents on File Type Date Recorded Patient Erecting Engineer Expl anation Power of Administrative Support Manager 11/29/2021 11:46 AM * Full Code [...] First Alternate Health Care Agent Care Teams Band Cutter Relationship Specialty Start Date End Date Ab Melara MD [address] [id number] PCP - General Family Medicine 07/16/21 Lidia Barajas MD Anesthesiologist Anesthesiology 01/13/20
--- OUTSIDE RECORDS SUMMARY | 2025-01-31 21:17 | XMS_ITS | Encounter Summary ---
Author Organization [facility] Address [address] [place] [address] Care Team Providers Care Cuffer Name Role Phone Shilpa Frazier DO Primary Care Provider [phone] Lidia Barajas MD Unavailable Shilpa Gandhi MD Unavailable Massiel Melara MD Primary Care Provider [phone] Shilpa Frazier DO Primary Care Provider [phone] Iron Galindo PA-C Primary Care Provide r Cresencio Ghosh MD Unavailable [phone] Cresencio Ghosh MD Unavailable [phone] Cresencio Ghosh MD Unavailable [phone] Encounter Details Date Type Department Care Team (Late st Contact Info) Description 01/23/2015 Therapy Visit EXTERNAL NON-[facility] Sunny Reynoso MD [address] [address] Social History Tobacco Use Types Packs/Day Years Used Date Smoking Tobacco: Never Alcohol Use Standard Drinks/Week Comments Yes 0 (1 standard drink = 0.6 oz pur e alcohol) 1-2 year Comments Unknown Sex and Gender Information Value Date Recorded Sex Assigned at Not on file Legal Sex Female 6:02 AM FIRER BISQUE KILN Gender Identity Not on file Sexual Orientation [...] NO NEED FOR ISOLATION AT THIS TIME; FAST FOOD RESTAURANT MANAGER INF PREV [id number] 10/07/2019 10/07/2019 09/05/19 8:37 AM FIRER BISQUE KILN MRSA 10/07/2019 10/07/2019 01/29/2020 8:33 AM CDT MRSA 01/28/2020 01/28/2020 03/20/2020 7:45 AM CDT COVID-19 Under Investigation 04/06/2020 04/08/2020 04/09/2020 5:20 AM CDT MRSA 04/11/2020 04/11/2020 12/25/2020 9:00 AM CDT COVID-19 Under Investigation 08/07/2020 08/07/2020 08/08/2020 3:45 PM FIRER BISQUE KILN COVID-19 Under Investigation 08/11/2020 08/11/2020 08/12/2020 4:08 AM FIRER BISQUE KILN MRSA 05/13/2021 02/05/2022 09/04/2022 8:37 AM FIRER BISQUE KILN MRSA Hx 09/04/2022 09/04/2022 MDRO Comment:04/01/23 MDRO resolved, ES 02/23/2023 02/23/20232022 7:16 AM CDT MDRO Hx 04/01/2023 04/01/2023 MDRO 05/08/2023 05/08/2023 documented as of this encounter Care Teams Cuffer Relationship Specialty Start Date End Date Shilpa Frazier DO [address] [facility] [address] [place] [address] PCP - General Family Medicine 08/06/17 07/31/20 Massiel Melara MD [address] [place] [address] PCP - General Family Medicine 08/01/20 10/01/20 Shilpa Frazier DO [address] [facility] [address] [place] [address] PCP - General Family Medicine 10/02/20 10/03/20 Iron Galindo PA-C [address] [address] [address] [place], [place] [id number] PCP - General Physician Dump Motorman 02/12/23 Cresencio Ghosh MD [address] [place] [address] PCP - Attributed-[facility] P4 12/29/23 09/14/24 Cresencio Ghosh MD [address] [place] [address] PCP - Attributed-[facility] P4 10/28/24 Lidia Barajas MD [address] [facility] [address] Anesthesiology-Pain Management 06/03/19 Shilpa Gandhi MD [address] [place] [address] Oncology 06/03/19 Cresencio Ghosh MD [address] [place] [address] Internal Medicine Sleep Medicine 09/29/24 documented as of this encounter
--- OUTSIDE RECORDS SUMMARY | 2025-01-31 21:17 | XMS_ITS | Encounter Summary ---
Author Organization [facility] Address [address] [place] [address] Care Team Providers Care Geometry Professor Name Role Phone Fiordaliza Snell MD Primary Care Provider Encounter Details Date Type Department Care Team (Late st Contact Info) Description 04/18/2003 Emergency [facility] Otilia Rose MD [facility] [place] [address] Er, Authorized P NO ADDRESS ON FILE ABDOMINAL PAIN RLQ (Primary Dx) Social History Tobacco Use Types Packs/Day Years Used Date Smoking Tobacco: Never Assessed Comments Unknown Sex and Gender Information Value Date Recorded Sex Assigned at Not on file Legal Sex Female 2:43 AM DOPE WEIGH OPERATOR Gender Identity Not on file Sexual Orientation Not on file documented as of this encounter Plan of Treatment Not on file documented as of this encounter Visit Diagnoses Diagnosis Abdominal pain, right lower quadrant- Primary documented in this encounter Additional Health Concerns Infection Onset Date Last Indicated Resolved Time R/O COVID-19 07/02/2020 07/02/2020 07/02/2020 8:53 PM DOPE WEIGH OPERATOR MRSA Comment:Resolved per Type and Duration of Precautions Recommended for Selected Infections and Conditions document 2023 update 07/02/2020 07/02/2020 03/16/20 24 10:58 AM CDT R/O COVID-19 07/10/2020 07/10/2020 07/10/2020 5:01 PM DOPE WEIGH OPERATOR documented as of this encounter Care Teams Geometry Professor Relationship Specialty Start Date End Date Fiordaliza Snell MD PCP - General Family Practice 09/09/22 documented as of this encounter
--- OUTSIDE RECORDS SUMMARY | 2025-01-31 21:17 | XMS_ITS | Clinical Summary ---
Author Organization [facility] Address [address] [place] [address] Care Team Providers Care Customizer Name Role Phone Unavailable Primary Care Provider [...] Comments Blood Pressure 152/77 05/21/2019 8:00 AM WIC SITE COORDINATOR Pulse 75 05/21/2019 8:00 AM WIC SITE COORDINATOR Temperature 36.3 C (97.3 F) 05/21/2019 8:00 AM WIC SITE COORDINATOR Respiratory Rate 18 05/21/2019 8:00 AM WIC SITE COORDINATOR Oxygen Saturation 98% 05/21/2019 8:00 AM WIC SITE COORDINATOR Inhaled Oxygen Concentration - - Weight 108.9 kg (240 lb 1.6 oz) 05/09/2019 6:52 AM WIC SITE COORDINATOR Height 172.7 cm (5' 8) 04/18/2019 12:2 [...]
--- OUTSIDE RECORDS SUMMARY | 2025-01-31 21:17 | XMS_ITS | Encounter Summary ---
Author Organization [facility] Address [address] [place] [address] Care Team Providers Care Ruby On Rails Developer Name Role Phone Fiordaliza Snell MD [...] on file Legal Sex Female 2:43 AM ELECTROTYPER Gender Identity Not on file Sexual Orientation Not on file documented as of this encounter Plan of Treatment Not on file documented as of this encounter Visit Diagnoses Diagnosis Other and unspecified ovarian cyst- Primary documented in this encounter Additional Health Concerns Infection Onset Date Last Indicated Resolved Time R/O COVID-19 07/02/2020 07/02/2020 07/02/2020 8:53 PM ELECTROTYPER MRSA Comment:Resolved per Type and Duration of Precautions Recommended for Selected Infections and Conditions document 2023 update 07/02/2020 07/02/2020 03/16/20 24 10:58 AM CDT R/O COVID-19 07/10/2020 07/10/2020 07/10/2020 5:01 PM ELECTROTYPER documented as of this encounter Care Teams Ruby On Rails Developer Relationship Specialty Start Date End Date Fiordaliza Snell MD PCP - General Family Practice 09/09/22 documented as of this encounter
--- OUTSIDE RECORDS SUMMARY | 2025-01-31 21:17 | XMS_ITS | Encounter Summary ---
Author Organization [facility] Address [address] [place] [address] Care Team Providers Care Overhead Worker Name Role Phone Shilpa Frazier DO Primary Care Provider Lidia Barajas MD Unavailable Ab Melara MD Primary Care Provid er Encounter Details Date Type Department Care Team (Late st Contact Info) Description 06/15/2018 Telephone [facility] [address] [facility] 1st [place] [address] Emil Clarke, RT Social History Tobacco Use Types Packs/Day Years Used Date Smoking Tobacco: Never Smokeless Tobacco: Never Alcohol Use Standard Drinks/Week Comments No 0 (1 standard drink = 0.6 oz pur e alcohol) Comments No Sex and Gender Information Value Date Recorded Sex Assigned at Not on file Legal Sex Female 11:49 PM VALANCE CUTTER Gender Identity Not on file Sexual [...] DT MRSA 12/27/2021 03/06/2022 09/02/2022 3:05 AM VALANCE CUTTER documented as of this encounter Care Teams Overhead Worker Relationship Specialty Start Date End Date Frazier Shilpaolimpia Law DO PCP - General 06/12/18 07/15/21 Ab Melara MD [address] [address] PCP - General Family Medicine 07/16/21 Lidia Barajas MD Anesthesiologist Anesthesiology 01/13/20 documented as of this encounter
--- OUTSIDE RECORDS SUMMARY | 2025-01-31 21:17 | XMS_ITS | Clinical Summary ---
Author Organization [facility] Address [address] [place] [address] Care Team Providers Care Casting Wheel Operator Name Role Phone Lidia Barajas MD Unavailable Shilpa Gandhi MD Unavailable Iron Galindo PA-C Primary Care Provide r Cresencio Ghosh MD Unavailable [phone] Cresencio Ghosh MD Unavailable Source Comments [facility],non-owned Affiliates and Associated Physician Practices is amultiple site organization consisting of ambulatory clinics and hospital sitesin [place], [place], [place] and [place]. This disclosure is being madepursuant to the Care Everywhere program and may not contain all information available regarding this patient. Last updated 18.[facility] Allergies Active Allergy Reactions Criticality [...] (spasms) 90 tablet 2 3 Active Nystop 127660 UNIT/GM powder Apply to affected area 2 [...] care, and heating? Not very hard 04/02/2023 [facility] Occupat ional Health - Occupational Stress [...] on file Legal Sex Female 6:02 AM YARN EXAMINER SKEINS Gender Identity Not on file Sexual Orientation Not on file Occupation Industry Job Start Date Job End Date Disabled Not on file Not on file Not on file Last Filed Vital Signs Vital Sign Reading Time Taken Comments Blood Pressure 157/91 05/07/2023 9:23 AM YARN EXAMINER SKEINS Pulse 86 05/07/2023 9:23 AM YARN EXAMINER SKEINS Temperature 36.3 C (97.3 F) 05/07/2023 9:23 AM YARN EXAMINER SKEINS Respiratory Rate 18 04/02/2023 3:00 PM CDT Oxygen Saturation 95% 05/07/2023 9:23 AM YARN EXAMINER SKEINS Inhaled Oxygen Concentration 97% 02/21/2021 1 0:15 [...] < 140/90 Blood Pressure 157/91(2022 9:23 AM YARN EXAMINER SKEINS) No Sierra Steiner Yearly PCP visit Lifestyle No White, Ava A Have labs drawn Lifestyle No White, Ava A Take recommended medication(s) Lifestyle No White, Ava A Use safety retraint in car Lifestyle No White, Ava A Complete Health Maintenance Screenings Lifestyle No White, Ava A Medical Devices Implanted Type Area Supply Chain Consultant Device Identifier Shelf Expiration Date Model / Serial / Lot Nevro Neurostimulator Senza [id number] (Implanted 2016) Floseal Hemostatic Matrix Implanted:Qty: 1 on 04/02/2019 by Maicol Mcneil DO at [facility] N/A: Spine [employer] 08/10/2020 [id number] / / [id number] Graft Tissue Drgn + Bvn Clgn Mtrx 1x1in Implanted:Qty: 1 on 04/02/2019 by Maicol Mcneil DO at [facility] N/A: Spine [employer] 04/29/2021 [id number] / / [id number] Seal Tisseel Prima 1 Prefil Frz 4ml - [id number] Implanted:Qty: 1 on 04/02/2019 by Maicol Mcneil DO at [facility] N/A: Spine [employer] 08/27/2020 [id number] / [id number] / [id number] Impl Inj 1ml Coaptite Syr Bulk Agnt Implanted:Qty: 2 on 04/11/2020 by Dave Aparicio MD at [facility] N/A: Bladder [employer] Scimed 10/25/2022 [id number] / / [id number] Impl Inj 1ml Coaptite Syr Bulk Agnt Implanted:Qty: 2 on 02/05/2022 by Dave Aparicio MD at [facility] Bladder [employer] 10/16/2024 [id number] / / [id number] Stent Uret 7fr 80cm Str Cls Tip Llok Implanted:Qty: 1 on 09/03/2022 by Nel Cerna DO at [facility] Ureter [employer]ed 12/23/2025 [id number] / / [id number] Description:bilateral ureter s Procedures Procedure Name Priority [...] 7 - 26 mg/dL 04/02/2023 3:07 AM [facility] Creatinine 0.69 0.56 - 0.96 mg/dL 04/02/2023 3:07 AM [facility] Sodium 133(L) 136 - 145 mmol/L 04/02/2023 3:07 AM [facility] Potassium 3.9 3.5 - 4.5 mmol/L 04/02/2023 3:07 AM [facility] Chloride 102 98 - 107 mmol/L 04/02/2023 3:07 AM [facility] CO2 26 22 - 29 mmol/L 04/02/2023 3:07 AM [facility] Glucose 122(H) 70 - 115 mg/dL 04/02/2023 3:07 AM [facility] Calcium 8.3(L) 8.4 - 10.2 mg/dL 04/02/2023 3:07 AM [facility] Anion Gap 5(L) 6 - 16 04/02/2023 3:07 AM [facility] BUN/Creatinine Ratio 23 7 - 23 04/02/2023 3:07 AM [facility] Osmolality Calculated 278 275 - 295 mOsm/kg 04/02/2023 3:07 AM [facility] eGFR by CKD-EPI >90 >=90 mL/min/1.7 3 m2 04/02/2023 3:[address] [facility] Blood BLOOD SPECIMEN / Unknown Lab Venipuncture / Unknown 04/02/2023 2:31 AM CDT 04/02/2023 2:39 AM CDT us Missy Sutherland MD LAB - CHEMISTRY ORDERABLES Final Result [address] [address], [facility] [phone] * ENDOSCOPY, COLON, SCREENING (11/29/2019) us Provider [...] participate in the care of your patient. [facility] utilizes [facility] as a reminder system to notify patients of their next recommended mammogram. Narrative 09/23/2017 9:22 AM CDT EXAMINATION: Digital screening mammogram on 09/18/2017. Low-dose full-field digital breast tomosynthesis examination was performed with synthetic 2D images and 3D acquisitions. Computer assisted detection was utilized. PRIOR: Mammogram from [facility] on 11/13/2004. BREAST PARENCHYMAL DENSITY: The [...] Hx 04/01/2023 04/01/2023 MDRO 05/08/2023 05/08/2023 [place] [address] [employer] [facility] MANA[place] [address] [place] [address] [facility] [place] [address] Advance Directives Documents on File Type Date Recorded Patient Council On Aging Director Expl anation Adv Directive/Living Will/POA 09/16/2022 [...] 4:01 AM 05/11/2020 8:00 PM Care Teams Casting Wheel Operator Relationship Specialty Start Date End Date Iron Galindo PA-C [address] [facility] [address] [place] [address] PCP - General Physician Pawn Broker 02/12/23 Cresencio Ghosh MD [address] [facility] [address] [address] [place] [address] PCP - Attributed-[facility] MA STL P4P 10/28/24 Lidia Barajas MD [facility], [address] Anesthesiology-Pain Management 06/03/19 Shilpa Gandhi MD [address] [facility] [address] [place] [address] Oncology 06/03/19 Cresencio Ghosh MD [address] [place] [address] Internal Medicine Sleep Medicine 09/29/24
--- OUTSIDE RECORDS SUMMARY | 2025-01-31 21:17 | XMS_ITS | Clinical Summary ---
Author Organization [facility] Address [address] [place] [address] Phone Care Team Providers Care Order Clerk Name Role Phone Unavailable Primary Care Provider Unavailabl e Social History Tobacco Use Types Packs/Day Years Used Date Smoking Tobacco: Never Assessed Comments Unknown Sex and Gender Information Value Date Recorded Sex Assigned at Not on file Legal Sex Female 3:52 AM DIRECTOR OF INSTRUCTION Gender Identity Not on file Sexual Orientation [...]
--- OUTSIDE RECORDS SUMMARY | 2025-01-31 21:17 | XMS_ITS | Encounter Summary ---
Author Organization [facility] Healthcare Address [address] [place] [address] Care Team Providers Care Oven Equipment Repairer Name Role Phone Unknown, Notinfile Primary Care Provider Unavail able Shilpa Frazier DO Primary Care Provider Lidia Barajas MD Unavailable Ab Melara MD Primary Care Provid er Encounter Details Date Type Department Care Team (Late st Contact Info) Description 04/07/2018 Telephone [facility] [address] [facility] 1st [place] [address] Kate Johnson, RT Social History Tobacco Use Types Packs/Day Years Used Date Smoking Tobacco: Never Smokeless Tobacco: Never Alcohol Use Standard Drinks/Week Comments No 0 (1 standard drink = 0.6 oz pur e alcohol) Comments No Sex and Gender Information Value Date Recorded Sex Assigned at Not on file Legal Sex Female 11:49 PM PARK MAINTAINER Gender Identity Not on file Sexual [...] DT MRSA 12/27/2021 03/06/2022 09/02/2022 3:05 AM PARK MAINTAINER documented as of this encounter Care Teams Oven Equipment Repairer Relationship Specialty Start Date End Date Unknown, Notinfile PCP - General 08/28/17 06/11/18 Shilpa Frazier DO PCP - General 06/12/18 07/15/21 Ab Melara MD [address] [address] PCP - General Family Medicine 07/16/21 Lidia Barajas MD Anesthesiologist Anesthesiology 01/13/20 documented as of this encounter
--- OUTSIDE RECORDS SUMMARY | 2025-01-31 21:18 | XMS_ITS | Encounter Summary ---
Author Organization [facility] Address [address] [place] [address] Care Team Providers Care Cae Engineer Name Role Phone Fiordaliza Snell MD [...] on file Legal Sex Female 2:43 AM BICYCLE REPAIR TECHNICIAN Gender Identity Not on file Sexual Orientation Not on file documented as of this encounter Plan of Treatment Not on file documented as of this encounter Visit Diagnoses Diagnosis Pelvic peritoneal adhesions, female (postoperative) (postinfection)- Primary documented in this encounter Additional Health Concerns Infection Onset Date Last Indicated Resolved Time R/O COVID-19 07/02/2020 07/02/2020 07/02/2020 8:53 PM BICYCLE REPAIR TECHNICIAN MRSA Comment:Resolved per Type and Duration of Precautions Recommended for Selected Infections and Conditions document 2023 update 07/02/2020 07/02/2020 03/16/20 24 10:58 AM CDT R/O COVID-19 07/10/2020 07/10/2020 07/10/2020 5:01 PM BICYCLE REPAIR TECHNICIAN documented as of this encounter Care Teams Cae Engineer Relationship Specialty Start Date End Date Fiordaliza Snell MD PCP - General Family Practice 09/09/22 documented as of this encounter
--- OUTSIDE RECORDS SUMMARY | 2025-01-31 21:18 | XMS_ITS | Encounter Summary ---
Author Organization [facility] Healthcare Address [address] [place] [address] Care Team Providers Care Agriculture Engineer Name Role Phone Shilpa Fraziermeera PEREZ Primary Care Provider Lidia Barajas MD Unavailable Ab Melara MD Primary Care Provid er Reason for Visit * Reason Onset Date Comments PRECALL ANTICOAG 02/18/2020 Encounter Details Date Type Department Care Team (Late st Contact Info) Description 02/18/[address] [facility] at [facility] [address] [facility] 1st [place] [address] Tori Arias RN PRECALL ANTICOAG [...] on file Legal Sex Female 11:49 PM DREDGE OR BARGE SHORE HAND Gender Identity Not on file Sexual Orientation [...] DT MRSA 12/27/2021 03/06/2022 09/02/2022 3:05 AM DREDGE OR BARGE SHORE HAND documented as of this encounter Care Teams Agriculture Engineer Relationship Specialty Start Date End Date Shilpa Frazier DO PCP - General 06/12/18 07/15/21 Ab Melara MD [address] [address] PCP - General Family Medicine 07/16/21 Lidia Barajas MD Anesthesiologist Anesthesiology 01/13/20 documented as of this encounter
--- OUTSIDE RECORDS SUMMARY | 2025-01-31 21:18 | XMS_ITS | Encounter Summary ---
Author Organization [facility] Healthcare Address [address] [place] [address] Care Team Providers Care Sheep Rancher Name Role Phone Shilpa Frazier DO Primary Care Provider Lidia Barajas MD Unavailable Ab Melara MD Primary Care Provid er Encounter Details Date Type Department Care Team (Late st Contact Info) Description 03/15/2019 Telephone [facility] - Interventional Radiology [address] [place] [address] Philly Aguirre RN Social History [...] on file Legal Sex Female 11:49 PM CAN CARRIER Gender Identity Not on file Sexual Orientation [...] DT MRSA 12/27/2021 03/06/2022 09/02/2022 3:05 AM CAN CARRIER documented as of this encounter Care Teams Sheep Rancher Relationship Specialty Start Date End Date Shilpa Frazier DO PCP - General 06/12/18 07/15/21 Ab Melara MD [address] [address] PCP - General Family Medicine 07/16/21 Lidia Barajas MD Anesthesiologist Anesthesiology 01/13/20 documented as of this encounter
--- OUTSIDE RECORDS SUMMARY | 2025-01-31 21:18 | XMS_ITS | Encounter Summary ---
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
--- OUTSIDE RECORDS SUMMARY | 2025-01-31 21:18 | XMS_ITS | Encounter Summary ---
Author Organization [facility] Address [address] [place] [address] Care Team Providers Care Manager Intermediate Name Role Phone Fiordaliza Snell MD Primary [...] on file Legal Sex Female 2:43 AM TONG HOOKER Gender Identity Not on file Sexual Orientation Not on file documented as of this encounter Plan of Treatment Not on file documented as of this encounter Visit Diagnoses Diagnosis Unspecified symptom associated with female genital organs- Primary documented in this encounter Additional Health Concerns Infection Onset Date Last Indicated Resolved Time R/O COVID-19 07/02/2020 07/02/2020 07/02/2020 8:53 PM TONG HOOKER MRSA Comment:Resolved per Type and Duration of Precautions Recommended for Selected Infections and Conditions document 2023 update 07/02/2020 07/02/2020 03/16/20 24 10:58 AM CDT R/O COVID-19 07/10/2020 07/10/2020 07/10/2020 5:01 PM TONG HOOKER documented as of this encounter Care Teams Manager Intermediate Relationship Specialty Start Date End Date Fiordaliza Snell MD PCP - General Family Practice 09/09/22 documented as of this encounter
--- OUTSIDE RECORDS SUMMARY | 2025-01-31 21:18 | XMS_ITS | Encounter Summary ---
Author Organization [facility] Address [address] [place] [address] Care Team Providers Care Wet End Tester Name Role Phone Fiordaliza Snell MD [...] on file Legal Sex Female 2:43 AM CYLINDER FILLER Gender Identity Not on file Sexual Orientation Not on file documented as of this encounter Plan of Treatment Not on file documented as of this encounter Visit Diagnoses Diagnosis Surgical or other procedure not carried out because of patient's decision- Primary documented in this encounter Additional Health Concerns Infection Onset Date Last Indicated Resolved Time R/O COVID-19 07/02/2020 07/02/2020 07/02/2020 8:53 PM CYLINDER FILLER MRSA Comment:Resolved per Type and Duration of Precautions Recommended for Selected Infections and Conditions document 2023 update 07/02/2020 07/02/2020 03/16/20 24 10:58 AM CDT R/O COVID-19 07/10/2020 07/10/2020 07/10/2020 5:01 PM CYLINDER FILLER documented as of this encounter Care Teams Wet End Tester Relationship Specialty Start Date End Date Fiordaliza Snell MD PCP - General Family Practice 09/09/22 documented as of this encounter
--- OUTSIDE RECORDS SUMMARY | 2025-01-31 21:18 | XMS_ITS | Encounter Summary ---
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
--- OUTSIDE RECORDS SUMMARY | 2025-01-31 21:18 | XMS_ITS | Encounter Summary ---
Author Organization [facility] Address [address] [place] [address] Care Team Providers Care Media Production Manager Name Role Phone Fiordaliza Snell MD [...] file Legal Sex Female 2:43 AM MACHINE MOLDER Gender Identity Not on file Sexual Orientation Not on file documented as of this encounter Plan of Treatment Not on file documented as of this encounter Visit Diagnoses Diagnosis Metrorrhagia- Primary documented in this encounter Additional Health Concerns Infection Onset Date Last Indicated Resolved Time R/O COVID-19 07/02/2020 07/02/2020 07/02/2020 8:53 PM MACHINE MOLDER MRSA Comment:Resolved per Type and Duration of Precautions Recommended for Selected Infections and Conditions document 2023 update 07/02/2020 07/02/2020 03/16/20 24 10:58 AM CDT R/O COVID-19 07/10/2020 07/10/2020 07/10/2020 5:01 PM MACHINE MOLDER documented as of this encounter Care Teams Media Production Manager Relationship Specialty Start Date End Date Fiordaliza Snell MD PCP - General Family Practice 09/09/22 documented as of this encounter
--- OUTSIDE RECORDS SUMMARY | 2025-01-31 21:18 | XMS_ITS | Encounter Summary ---
Author Organization [facility] Address [address] [place] [address] Care Team Providers Care Hospital Receptionist Name Role Phone Fiordaliza Snell MD [...] file Legal Sex Female 2:43 AM MANAGER OF HEALTH Gender Identity Not on file Sexual Orientation Not on file documented as of this encounter Plan of Treatment Not on file documented as of this encounter Visit Diagnoses Diagnosis Excessive or frequent menstruation- Primary documented in this encounter Additional Health Concerns Infection Onset Date Last Indicated Resolved Time R/O COVID-19 07/02/2020 07/02/2020 07/02/2020 8:53 PM MANAGER OF HEALTH MRSA Comment:Resolved per Type and Duration of Precautions Recommended for Selected Infections and Conditions document 2023 update 07/02/2020 07/02/2020 03/16/20 24 10:58 AM CDT R/O COVID-19 07/10/2020 07/10/2020 07/10/2020 5:01 PM MANAGER OF HEALTH documented as of this encounter Care Teams Hospital Receptionist Relationship Specialty Start Date End Date Fiordaliza Snell MD PCP - General Family Practice 09/09/22 documented as of this encounter
--- OUTSIDE RECORDS SUMMARY | 2025-01-31 21:18 | XMS_ITS | Encounter Summary ---
Author Organization [facility] Address [address] [place] [address] Care Team Providers Care Environmental Conflict Manager Name Role Phone Fiordaliza Snell MD [...] on file Legal Sex Female 2:43 AM COMMODITIES TRADER Gender Identity Not on file Sexual Orientation Not on file documented as of this encounter Plan of Treatment Not on file documented as of this encounter Visit Diagnoses Diagnosis Closed fracture of lateral malleolus- Primary documented in this encounter Additional Health Concerns Infection Onset Date Last Indicated Resolved Time R/O COVID-19 07/02/2020 07/02/2020 07/02/2020 8:53 PM COMMODITIES TRADER MRSA Comment:Resolved per Type and Duration of Precautions Recommended for Selected Infections and Conditions document 2023 update 07/02/2020 07/02/2020 03/16/20 24 10:58 AM CDT R/O COVID-19 07/10/2020 07/10/2020 07/10/2020 5:01 PM COMMODITIES TRADER documented as of this encounter Care Teams Environmental Conflict Manager Relationship Specialty Start Date End Date Fiordaliza Snell MD PCP - General Family Practice 09/09/22 documented as of this encounter
--- OUTSIDE RECORDS SUMMARY | 2025-01-31 21:18 | XMS_ITS | Clinical Summary ---
Author Organization [facility] Address [address] [place] [address] Phone Care Team Providers Care Mental Health Nurse Practitioner Name Role Phone Fiordaliza Snell MD Primary [...] migh t be different from the original. Utilities Manager - Dr. Eddie Tapia MD, [facility], [facility] - [address] [facility] Problem Noted Date Diagnosed Date YAJAIRA [...] NOS Added automatically from request for surgery [id number] Last Assessment & Plan: Healing fusion C6-7 [...] (09/14/2021): Added automatically from request for surgery [id number] Cervical pain (neck) 06/13/2018 Intractable pain 10/13/2011 [...] 07/25/2020 Immunizations Immunization Administration Dates Next Due ([employer])(12 YR UP) COVID-19 VACCINE - EMERGENCY USE AUTHORIZATION, MRNA, [id number](PF) 30 MCG/0.3 ML IM SUSP 12/13/2020,11/20/2020 (PNEUMOVAX [...] on file Legal Sex Female 2:43 AM FIELD SERVICE COORDINATOR Gender Identity Not on file Sexual Orientation [...] CDT Respiratory Rate 18 07/12/2020 9:24 PM FIELD SERVICE COORDINATOR Oxygen Saturation 97% 04/20/2021 2:12 PM CDT Inhaled Oxygen Concentration - - Weight 91.6 kg (202 lb) 08/07/2020 2:15 PM FIELD SERVICE COORDINATOR Height 172.7 cm (5' 8) 04/20/2021 2:12 PM CDT Body Mass Index 30.71 08/07/2020 2:15 PM FIELD SERVICE COORDINATOR Plan of Treatment Health Maintenance Due Date [...] Advance Directives For more information, please contact: [phone] * Full Code (Latest Code Status on File) Date Activated Date Inactivated Comments 07/02/2020 10:50 PM 07/13/2020 1:53 PM * Full Code Date Activated Date Inactivated Comments 06/26/2011 3:20 AM 06/26/2011 8:40 PM Care Teams Mental Health Nurse Practitioner Relationship Specialty Start Date End Date Fiordaliza Snell MD PCP - General Family Practice 09/09/22
--- OUTSIDE RECORDS SUMMARY | 2025-01-31 21:18 | XMS_ITS | Encounter Summary ---
Author Organization [facility] Address [address] [place] [address] Care Team Providers Care Angledozer Operator Name Role Phone Fiordaliza Snell MD [...] on file Legal Sex Female 2:43 AM SKID STRAPPER Gender Identity Not on file Sexual Orientation Not on file documented as of this encounter Plan of Treatment Not on file documented as of this encounter Visit Diagnoses Diagnosis Lumbago- Primary documented in this encounter Additional Health Concerns Infection Onset Date Last Indicated Resolved Time R/O COVID-19 07/02/2020 07/02/2020 07/02/2020 8:53 PM SKID STRAPPER MRSA Comment:Resolved per Type and Duration of Precautions Recommended for Selected Infections and Conditions document 2023 update 07/02/2020 07/02/2020 03/16/20 24 10:58 AM CDT R/O COVID-19 07/10/2020 07/10/2020 07/10/2020 5:01 PM SKID STRAPPER documented as of this encounter Care Teams Angledozer Operator Relationship Specialty Start Date End Date Fiordaliza Snell MD PCP - General Family Practice 09/09/22 documented as of this encounter
--- OUTSIDE RECORDS SUMMARY | 2025-01-31 21:18 | XMS_ITS | Encounter Summary ---
Author Organization [facility] Address [address] [place] [address] Care Team Providers Care Color Expert Name Role Phone Fiordaliza Snell MD Primary Care Provider Encounter Details Date Type Department Care Team (Latest Contact Info) Description 09/25/2000 Outpatient Historical [facility] Anjali aGrcia MD NO ADDRESS ON FILE Unspecified symptom associated with female genital organs (Primary Dx) Social History Tobacco Use Types Packs/Day Years Used Date Smoking Tobacco: Never Assessed Comments Unknown Sex and Gender Information Value Date Recorded Sex Assigned at Not on file Legal Sex Female 2:43 AM SAFETY ADVISOR Gender Identity Not on file Sexual Orientation Not on file documented as of this encounter Plan of Treatment Not on file documented as of this encounter Visit Diagnoses Diagnosis Unspecified symptom associated with female genital organs- Primary documented in this encounter Additional Health Concerns Infection Onset Date Last Indicated Resolved Time R/O COVID-19 07/02/2020 07/02/2020 07/02/2020 8:53 PM SAFETY ADVISOR MRSA Comment:Resolved per Type and Duration of Precautions Recommended for Selected Infections and Conditions document 2023 update 07/02/2020 07/02/2020 03/16/20 24 10:58 AM CDT R/O COVID-19 07/10/2020 07/10/2020 07/10/2020 5:01 PM SAFETY ADVISOR documented as of this encounter Care Teams Color Expert Relationship Specialty Start Date End Date Fiordaliza Snell MD PCP - General Family Practice 09/09/22 documented as of this encounter
--- OUTSIDE RECORDS SUMMARY | 2025-01-31 21:18 | XMS_ITS | Encounter Summary ---
Author Organization [facility] Address [address] [place] [address] Care Team Providers Care Appeals Coordinator Name Role Phone Fiordaliza Snell MD [...] on file Legal Sex Female 2:43 AM SHRIMP PEELING MACHINE OPERATOR Gender Identity Not on file Sexual Orientation Not on file documented as of this encounter Plan of Treatment Not on file documented as of this encounter Visit Diagnoses Diagnosis Abdominal pain, unspecified site- Primary documented in this encounter Additional Health Concerns Infection Onset Date Last Indicated Resolved Time R/O COVID-19 07/02/2020 07/02/2020 07/02/2020 8:53 PM SHRIMP PEELING MACHINE OPERATOR MRSA Comment:Resolved per Type and Duration of Precautions Recommended for Selected Infections and Conditions document 2023 update 07/02/2020 07/02/2020 03/16/20 24 10:58 AM CDT R/O COVID-19 07/10/2020 07/10/2020 07/10/2020 5:01 PM SHRIMP PEELING MACHINE OPERATOR documented as of this encounter Care Teams Appeals Coordinator Relationship Specialty Start Date End Date Fiordaliza Snell MD PCP - General Family Practice 09/09/22 documented as of this encounter
[2025-01-31 21:34] LABS: Troponin I < 0.012 ng/mL (0.000-0.034)
--- NOTE | 2025-01-31 21:54 | PC.NURSE ---
pt to ct via stretcher nad noted.
[2025-01-31 22:09] LABS: NT Pro B Type Natriuretic Pept 191 pg/mL (19.9-100)
[2025-01-31 22:13] LABS: Add Urine Microscopic? YES
[2025-01-31 22:14] LABS: Leukocyte Esterase Ur Trace LEU/UL (Negative); Nitrate Urine Negative (Negative)
[2025-01-31 22:15] LABS: Appearance Urine Clear (Clear); Glucose Urine UA Negative (Negative); Specific Grav Ur 1.025 (1.001-1.035)
[2025-01-31] MEDS: SODIUM CHLORIDE 0.9% IV 500 ML 999 ML IV CONT (22:18)
[2025-01-31] MEDS: ONDANSETRON INJ 4 MG/2 ML VIAL IV PUSH (22:19)
[2025-01-31] MEDS: MORPHINE SULFATE (*CRX) 4 MG/ML INJ IV PUSH (22:19)
--- NOTE | 2025-01-31 23:30 | PC.NURSE ---
phlebotomy called for 2nd set of blood cultures
--- NOTE | 2025-01-31 23:57 | PC.NURSE ---
phlebotomy at bedside to attempt 2nd set of blood cultures
[2025-02-01] VITALS (10 sets, daily range): BP systolic 115–144; BP diastolic 51–90; PULSE 61–70; RESP 12–18; TEMP 35.8–36.6; O2SAT 96–100; BMI 33.8
[2025-02-01] MEDS: cefTRIAXone 1 GM in SODIUM CHLORIDE 0.9% IV 50 ML 100 ML IVPB ×2 (00:10→21:59)
[2025-02-01] MEDS: KETOROLAC 15 MG/ML VIAL (*BKC) IV PUSH (01:19)
[2025-02-01] MEDS: MORPHINE SULFATE (*CRX) 4 MG/ML INJ IV PUSH (01:19)
[2025-02-01] MEDS: MECLIZINE HCL 25 MG TABLET PO (02:02)
[2025-02-01] MEDS: SODIUM CHLORIDE 0.9% IV 1,000 ML 999 ML IV CONT (02:04)
[2025-02-01] MEDS: diazePAM INJ (*CRX) 10 MG/2 ML SYRINGE 2.5 MG IV PUSH (03:18)
[2025-02-01] MEDS: HYDROcodone/acetaminophen (*CRX) 7.5-325 MG TABLET 1 TAB PO ×3 (04:59→22:39)
[2025-02-01] MEDS: DICYCLOMINE HCL 10 MG CAPSULE 20 MG PO (05:00)
--- NOTE | 2025-02-01 08:07 | ADMGEN ---
This patient, Angelina Mcnulty, was admitted to 3 [facility] Surg Room 307-02@ [facility]. Patient/family oriented to hospital policies and general routines including ID bracelet, bed and alarms, visiting hours, pain management, procedures, bathroom and other care routines, personal items, smoking policy, room service/diet, and visiting hours. Information on how to activate the Rapid Response Team has been discussed. Patient/Family are encouraged to report perceived risks to care and to ask questions if they do not understand what they are told or what they should do.
[2025-02-01] MEDS: LORATADINE 10 MG TABLET PO (12:32)
--- NOTE | 2025-02-01 14:38 | PM.IMHP ---
H&P: HPI History of Present Illness Date/Time: 02/01/25 14:38 Chief Complaint: suprapubic pain Review of Systems Review of Systems: 59 yo female with pMH of HTN, Afib and CHF, paraplegic with urostomy who presented to the ER on account of suprapubic pain, and cloudy urine. Mello noted her symptoms started about 3 days ago, associated with flank pain and vomiting. Also noted diarrhea, however stated that both diarrhea and vomiting has resolved. Denies any Chest pain, SOB, and no new focal weakness, and blood in stool. ER eval notable for BP 151/72, saturating 98% on room air. labs notable for trace Leukocyte esterase and pyuria. Ddimer 1.[address] AP showed fecak stasis and mural thickening of rectum, mild hydronephrosis of the right kidney. Troponin negative Blood and urine culture were obtained , patient started on Rocephin prior to admission Constitutional: Comments: All other systems reviewed and negative except as noted in history above. [facility], [facility] Past Medical History Medical History (Updated 02/01/25 @ 02:06 by Adeline Tijerina MD) Brain TIA multiple BMI 33.0-33.9,adult Insomnia Paroxysmal atrial fibrillation Gastroesophageal reflux disease Hyperlipidemia patient states previously but recently reported as controlled Post traumatic stress disorder Degenerative disc disease Incomplete paraplegia Sleep apnea History of MRSA infection Depression Anemia Fibromyalgia Scoliosis Arthritis Irritable bowel Hemorrhoids Asthma Anxiety Obesity (BMI 30-39.9) Stroke Hypertension Allergies Surgical History Surgical History History of tonsillectomy History of total cystectomy History of hernia repair History of cholecystectomy History of appendectomy History of cardiac catheterization History of ileal conduit History of back surgery Family History Family History Father Hypertension Cancer Mother Cancer Hypertension Anxiety Acute myocardial infarction <65yo Grandparent Cancer Sibling Hypertension A-fib Acute myocardial infarction <65yo Sibling Acute myocardial infarction <65yo Social History Social History Social History: Surrogate medical decision maker: Vicenta Mcnulty. Code status: Full code. Smoking status: Never smoker Second hand tobacco smoke exposure: Yes Alcohol intake: never Substance use: never Substance use type: does not use Do You Feel Safe in your Home?: Yes Lack of Transportation: No Lack of Food: Never True Current Housing: I Have Housing Concerned About Future Housing: No Difficulty Paying Gas/Electric Bills: No Difficulty Paying for Meds: No Currently Unemployed: No Education: High School Diploma/GED Difficulty w/ Childcare or Family Care: No Living arrangements: with family Occupation/Education: unemployed Gender identity (if verbalized by the patient): Female Spiritual care concerns: No Meds Home Medications and Allergies Home Medications ?Medication ?Instructions ?Recorded ?Confirmed ?Type alprazolam 0.25 mg tablet 0.25 mg PO TID PRN anxiety #60 tabs 02/17/23 02/01/25 Rx diclofenac sodium 1 % topical gel 2 g topical QID #100 grams 02/17/23 02/01/25 Rx (Voltaren Arthritis Pain) olanzapine 5 mg tablet 5 mg PO DAILY #30 tabs 02/17/23 02/01/25 Rx zolpidem 5 mg tablet (Ambien) 5 mg PO QHS #30 tabs 02/17/23 02/01/25 Rx atorvastatin 10 mg tablet 10 mg PO DAILY #90 tabs 08/22/23 02/01/25 Rx aspirin 81 mg tablet,delayed 81 mg PO DAILY #90 tabs 04/15/24 02/01/25 Rx release (Adult Low Dose Aspirin) ondansetron 4 mg disintegrating 4 mg PO Q8H PRN nausea and 05/11/24 02/01/25 Rx tablet vomiting #20 tabs furosemide 20 mg tablet See Rx Instructions .Route 09/14/24 02/01/25 Rx .COMPLEX #90 tabs ibuprofen 600 mg tablet 600 mg PO TID PRN pain #30 tabs 11/29/24 02/01/25 Rx methocarbamol 750 mg tablet 750 mg PO TID #90 tabs 12/03/24 02/01/25 Rx ropinirole 0.5 mg tablet 1 mg PO BID 12/13/24 02/01/25 History semaglutide 0.25 mg or 0.5 mg (2 0.25 mg (0.368 mL) subcut WEEKLY 12/23/24 02/01/25 Rx mg/3 mL) subcutaneous pen injector #6 mL (Ozempic) hydrocodone 7.5 mg-acetaminophen 1 tablet PO Q8H PRN pain #30 tabs 01/19/25 02/01/25 Rx 325 mg tablet metoprolol succinate 25 mg 25 mg PO DAILY #90 tabs 01/19/25 02/01/25 Rx tablet,extended release 24 hr losartan 100 mg tablet 100 mg PO HS 02/01/25 02/01/25 History polyethylene glycol 3350 17 17 g PO DAILY PRN constipation 02/01/25 02/01/25 History gram/dose oral powder (Miralax) Allergies Allergy/AdvReac Type Severity Reaction Status Date / Time Penicillins Allergy Intermediate Hives Verified 02/01/25 08:18 Sulfa (Sulfonamide Allergy Intermediate Swelling Verified 02/01/25 08:18 Antibiotics) of Lip/Tongue/Throat vancomycin Allergy Intermediate Hives Verified 02/01/25 08:18 adhesive tape Allergy Mild Blister Verified 02/01/25 08:18 Latex, Natural Rubber Allergy Mild Itching Verified 02/01/25 08:18 Vital Signs Vital Signs - 24 hr 01/31/25 15:56 01/31/25 20:36 01/31/25 20:36 Temperature 98.1 F 97.8 F Pulse Rate 75 78 Respiratory Rate 16 18 Blood Pressure 151/72 H 208/112 H Pulse Oximetry 97 98 98 Oxygen Delivery Room Air Room Air Room Air 02/01/25 01:51 02/01/25 05:01 02/01/25 05:03 Temperature Pulse Rate 66 66 65 Respiratory Rate 13 16 17 Blood Pressure 143/84 H Pulse Oximetry 96 100 100 Oxygen Delivery 02/01/25 05:15 02/01/25 05:23 02/01/25 08:00 Temperature 97.9 F 97 F L Pulse Rate 61 64 Respiratory Rate 12 16 Blood Pressure 130/90 144/83 H Pulse Oximetry 98 100 Oxygen Delivery 02/01/25 08:00 Temperature Pulse Rate Respiratory Rate Blood Pressure Pulse Oximetry 100 Oxygen Delivery Room Air Exam Narrative: General: alert and comfortable Eyes: EOMI, PERRLA ENNT External ears normal, Neck is supple, no masses, Respiratory systems: Clear to auscultation Cardiovascular S1, S2, normal rhythm, no murmur, rub, or gallop; no thrill or palpable murmurs on palpation. Gastrointestinal: soft, suprapubic tenderness and non-distended abdomen with no masses; BS present Skin: no rash, lesions, ulcerations, subcutaneous nodules or induration Musculoskeletal: no abnormality and no tenderness, normal ROM Neurologic: Alert and oriented x3, power 3/5 extremities bilaterally Mental Status Exam: normal affect Urogenital: Urostomy bag place. H&P: Results Labs Labs: Short CBC 01/31/25 Range/Units 16:17 WBC 7.6 (4.5-10.0) K/mm3 Hgb 13.7 (12.0-15.0) g/dL Hct 41.5 (37.0-47.0) % Plt Count 223 (150-375) k/mm3 BMP 01/31/25 16:17 Sodium 133 L Potassium 4.5 Chloride 102 Carbon Dioxide 24 BUN 16 Creatinine 0.48 L Glucose 113 H Calcium 8.9 Cardiac Enzymes 01/31/25 01/31/25 01/31/25 Range/Units 16:17 19:02 21:04 Troponin I < 0.012 < 0.012 < 0.012 (0.000-0.034) ng/mL Liver Function 01/31/25 Range/Units 16:17 Total Bilirubin 0.8 (0.2-1.3) mg/dL AST 37 H (14-36) U/L ALT 21 (6-35) U/L Alkaline Phosphatase 79 (38-126) U/L Albumin 4.3 (3.5-5.1) g/dL Urine 01/31/25 Range/Units 21:04 Urine Color Light yellow (Yellow) Urine Appearance Clear (Clear) Urine pH 6.0 (5.0-9.0) Ur Specific [place] 1.025 (1.001-1.035) Urine Protein Negative (Negative) mg/dL Urine Glucose (UA) Negative (Negative) mg/dL Assessment and Plan Assessment and plan (1) Fecal impaction: Code(s): K56.41 - Fecal impaction Status: Acute (2) UTI (urinary tract infection): Code(s): N39.0 - Urinary tract infection, site not specified Status: Acute (3) Paraplegia: Code(s): G82.20 - Paraplegia, unspecified Status: Acute Plan UTI Presented with suprapubic pain and vomiting Patient has a history of urostomy from Spinal cord injury, which is a risk factor F/u Blood and urine cultures Continue Rocephin Fecal impaction withi possibel stercoral colitis CT reviewed Conitnue [place] and Added fFlagyl follow up culture HTN titrate home meds with clinical course CHF titrate home meds with clinical course Afib cotnineu Metoprolol Patient not on AC, investigate DVT prophylaxis on Sq Lovenox Full Code Zachary Reinoso, [facility] Hospitalist [facility] Advance Care Plan I have confirmed that the patient's Advanced Care Plan is present, code status is documented, or surrogate decision maker is listed in patient medical record.: Yes Medication Reconciliation I have utilized all available resources to obtain, update and review the patients current medications (includes all prescriptions, OTC, herbals, cannabis, and nutritional supplements).: Yes
[2025-02-01] MEDS: METOPROLOL SUCCINATE EXT REL 25 MG TABCR PO (15:00)
[2025-02-01] MEDS: ATORVASTATIN 10 MG TABLET PO (15:00)
[2025-02-01] MEDS: BISACODYL 5 MG TABLET EC PO (15:00)
[2025-02-01] MEDS: metroNIDAZOLE 500 MG/ISO 100ML 500 MG/100 ML BAG 100 MG IVPB (15:20)
[2025-02-01] MEDS: ZOLPIDEM TARTRATE (*CRX) 5 MG TABLET PO (22:00)
[2025-02-01] MEDS: WATER FOR IRRIGATION, STERILE 500 ML BOTTLE (22:04)
[2025-02-02] MEDS: metroNIDAZOLE 500 MG/ISO 100ML 500 MG/100 ML BAG 100 MG IVPB ×3 (01:00→15:37)
[2025-02-02 05:30] VITALS: BP 144/82; PULSE 65; RESP 18; TEMP 36.6; O2SAT 97
[2025-02-02 06:46] LABS: Hematocrit 37.8 % (37.0-47.0); Hemoglobin 12.3 g/dL (12.0-15.0); Immature Granulocyte Percent A 0.3 % (0-0.5); Lymphocytes Absolute Auto 2.08 K/mm3 (0.9-3.2); Mean Corpuscular HGB Conc 32.5 g/dl (32-36); Mean Corpuscular Hemoglobin 27.8 pg (26-34); Mean Corpuscular Volume 85.5 fl (80-100); Nucleated Red Blood Cells Absolute Auto 0.000 K/mm3 (0.0-0.012); Nucleated Red Blood Cells Perc 0.0 % (0.0-0.2); Platelet Count Result 194 k/mm3 (150-375); Red Blood Count 4.42 M/mm3 (4.2-5.4); White Blood Count 6.8 K/mm3 (4.5-10.0)
[2025-02-02 07:09] LABS: Alanine Aminotransferase 18 U/L (6-35); Albumin Level 3.5 g/dL (3.5-5.1); Alkaline Phosphatase 85 U/L (38-126); Anion Gap 5 mmol/L (4-12); Aspartate Amino Transferase 22 U/L (14-36); Bilirubin,Total 0.4 mg/dL (0.2-1.3); Blood Urea Nitrogen 17 mg/dL (7-17); Calcium 8.6 mg/dL (8.4-10.2); Carbon Dioxide 28 mmol/L (22-30); Chloride 106 mmol/L (98-107); Estimated CRCL calculation 94 ml/min; Estimated Glomerular Filt Rate > 60; Glucose 107 mg/dL (65-110); Magnesium 2.3 mg/dL (1.6-2.3); Potassium 4.4 mmol/L (3.4-5.0); Sodium 139 mmol/L (137-145); Total Protein 6.4 g/dL (6.3-8.2)
[2025-02-02] MEDS: ENOXAPARIN 40 MG/0.4 ML SYRINGE SUB-Q (08:43)
[2025-02-02] MEDS: LORATADINE 10 MG TABLET PO (08:45)
[2025-02-02 10:00] VITALS: PULSE 73
[2025-02-02] MEDS: METOPROLOL SUCCINATE EXT REL 25 MG TABCR PO (10:00)
[2025-02-02] MEDS: ATORVASTATIN 10 MG TABLET PO (10:00)
[2025-02-02] MEDS: HYDROcodone/acetaminophen (*CRX) 7.5-325 MG TABLET 1 TAB PO ×2 (10:01→18:25)
--- NOTE | 2025-02-02 11:55 | PM.IMPN ---
Progress Note: A&P Assessment and Plan (1) Fecal impaction: Code(s): K56.41 - Fecal impaction Status: Acute (2) UTI (urinary tract infection): Code(s): N39.0 - Urinary tract infection, site not specified Status: Acute (3) Paraplegia: Code(s): G82.20 - Paraplegia, unspecified Status: Acute Plan UTI Presented with suprapubic pain and vomiting Patient has a history of urostomy from Spinal cord injury, which is a risk factor F/u Blood and urine cultures Continue Rocephin Fecal impaction with possible stercoral colitis CT reviewed Continue Rocephin and Added fFlagyl follow up culture HTN titrate home meds with clinical course CHF titrate home meds with clinical course Afib cotnineu Metoprolol Patient not on AC, investigate DVT prophylaxis on Sq Lovenox Full Code Subjective Date/time seen: 02/02/25 11:55 Interval history: Comfortable at bedisde Exam Narrative: General: alert and comfortable Eyes: EOMI, PERRLA ENNT External ears normal, Neck is supple, no masses, Respiratory systems: Clear to auscultation Cardiovascular S1, S2, normal rhythm, no murmur, rub, or gallop; no thrill or palpable murmurs on palpation. Gastrointestinal: soft, suprapubic tenderness and non-distended abdomen with no masses; BS present Skin: no rash, lesions, ulcerations, subcutaneous nodules or induration Musculoskeletal: no abnormality and no tenderness, normal ROM Neurologic: Alert and oriented x3, power 3/5 extremities bilaterally Mental Status Exam: normal affect Urogenital: Urostomy bag place. Objective Data Vital Signs Vital Signs: Vital Signs - 24 hr 02/01/25 14:00 02/01/25 15:00 02/01/25 20:00 Temperature 96.4 F L Pulse Rate 64 64 70 Respiratory Rate 16 18 Blood Pressure 129/84 Pulse Oximetry 100 98 Oxygen Delivery Room Air 02/01/25 21:03 02/01/25 22:00 02/02/25 05:30 Temperature 97.4 F L 97.9 F Pulse Rate 70 65 Respiratory Rate 18 18 Blood Pressure 115/51 L 144/82 H Pulse Oximetry 98 97 Oxygen Delivery Autopap 02/02/25 10:00 Temperature Pulse Rate 73 Respiratory Rate Blood Pressure Pulse Oximetry Oxygen Delivery Intake/Output Intake/Output: Intake & Output 01/30/25 01/31/25 02/01/25 02/02/25 23:59 23:59 23:59 23:59 Intake Total 500 2456 1010 Output Total 1200 950 Balance 500 1256 60 Meds/Results Medications: Active Medications Generic Name Dose Route Start Last Admin Trade Name Freq PRN Reason Stop Dose Admin Acetaminophen 650 mg 02/01/25 05:36 Acetaminophen 650 Mg Suppository RECTAL Q6H PRN Mild Pain (1-3) or Fever Hydrocodone Bitart/Acetaminophen 1 tab 02/01/25 12:20 02/02/25 10:01 Hydrocodone/Acetaminophen (*Crx) 7.5-325 Mg Tablet PO 1 tab Q6H PRN Administration Pain Rated 7-10 Alprazolam 0.25 mg 02/01/25 14:46 Alprazolam (*Crx) 0.25 Mg Tablet PO TID PRN anxiety Atorvastatin Calcium 10 mg 02/01/25 14:55 02/02/25 10:00 Atorvastatin 10 Mg Tablet PO 10 mg DAILY ANA Administration Enoxaparin Sodium 40 mg 02/02/25 09:00 02/02/25 08:43 Enoxaparin 40 Mg/0.4 Ml Syringe SUB-Q 40 mg DAILY ANA Administration Ceftriaxone Sodium 1 gm/ 50 mls @ 100 mls/hr 02/01/25 21:00 02/01/25 21:59 Sodium Chloride IVPB 100 mls/hr HS ANA Administration Metronidazole 500 mg in 100 mls @ 100 mls/hr 02/01/25 16:00 02/02/25 09:44 Flagyl 500 Mg/Iso Soln 100 Ml IVPB Infused Q8H ANA Infusion Loratadine 10 mg 02/02/25 09:00 02/02/25 08:45 Loratadine 10 Mg Tablet PO 10 mg QAM ANA Administration Methocarbamol 750 mg 02/01/25 17:00 02/02/25 08:45 Methocarbamol 750 Mg Tablet PO 750 mg TID ANA Administration Metoprolol Succinate 25 mg 02/01/25 14:55 02/02/25 10:00 Metoprolol Succinate Ext Rel 25 Mg Tabcr PO 25 mg DAILY ANA Administration Olanzapine 5 mg 02/01/25 14:55 02/02/25 10:00 Olanzapine 5 Mg Tablet PO 5 mg DAILY ANA Administration Ondansetron HCl 4 mg 02/01/25 05:36 Ondansetron Inj 4 Mg/2 Ml Vial IV PUSH Q4H PRN Nausea Ropinirole HCl 1 mg 02/01/25 17:00 02/02/25 08:45 Ropinirole Hcl 1 Mg Tablet PO 1 mg BID ANA Administration Valacyclovir HCl 1,000 mg 02/01/25 15:20 02/02/25 05:25 Valacyclovir Hcl 500 Mg Tablet PO 1,000 mg Q8HR ANA Administration Zolpidem Tartrate 5 mg 02/01/25 21:00 02/01/25 22:00 Zolpidem Tartrate (*Crx) 5 Mg Tablet PO 5 mg QHS ANA Administration Radiology Results: ITS Impressions Chest X-Ray 01/31/25 17:09 IMPRESSION: 1. No acute cardiopulmonary disease. Abdomen/Pelvis CT 01/31/25 22:14 IMPRESSION: Mural thickening within the rectum, an interval change from prior. Redemonstration of mild hydronephrosis of the right kidney, unchanged from prior. Otherwise, no acute findings within the lower chest, abdomen or pelvis, as detailed above Chest CTA 02/01/25 00:36 IMPRESSION: No pulmonary embolus. No thoracic aortic dissection. Trace bibasilar atelectasis. Head CT 02/01/25 05:41 Impression: No significant abnormality seen. Labs Labs: Laboratory Results - last 24 hr 02/02/25 06:00 WBC 6.8 RBC 4.42 Hgb 12.3 Hct 37.8 MCV 85.5 MCH 27.8 MCHC 32.5 RDW 14.5 Plt Count 194 MPV 9.5 Immature Gran % (Auto) 0.3 Neut % (Auto) 58.4 Lymph % (Auto) 30.5 [place] % (Auto) 7.3 Eos % (Auto) 2.5 Baso % (Auto) 1.0 Lymph # (Auto) 2.08 [place] # (Auto) 0.5 Eos # (Auto) 0.2 Baso # (Auto) 0.1 Abs Immat Gran (auto) 0.02 Absolute Neuts (auto) 4.0 Absolute Nucleated RBC 0.000 Nucleated RBC % 0.0 Sodium 139 Potassium 4.4 Chloride 106 Carbon Dioxide 28 Anion Gap 5 BUN 17 Creatinine 0.71 Estim Creat Clear Calc 94 Estimated GFR > 60 Glucose 107 Calcium 8.6 Magnesium 2.3 Total Bilirubin 0.4 AST 22 ALT 18 Alkaline Phosphatase 85 Total Protein 6.4 Albumin 3.5
[2025-02-02] MEDS: CYCLOBENZAPRINE HCL 10 MG TABLET PO (13:48)
[2025-02-02 14:00] VITALS: BP 165/79; PULSE 70; RESP 16; TEMP 36.1; O2SAT 100
[2025-02-02] MEDS: ALPRAZolam (*CRX) 0.25 MG TABLET PO (18:28)
[2025-02-02] MEDS: cefTRIAXone 1 GM in SODIUM CHLORIDE 0.9% IV 50 ML 100 ML IVPB (21:14)
[2025-02-02] MEDS: ZOLPIDEM TARTRATE (*CRX) 5 MG TABLET PO (21:21)
[2025-02-02 21:29] VITALS: BP 147/78; PULSE 70; RESP 14; TEMP 36.2; O2SAT 100
[2025-02-03] MEDS: metroNIDAZOLE 500 MG/ISO 100ML 500 MG/100 ML BAG 100 MG IVPB ×2 (01:11→09:09)
[2025-02-03] MEDS: CYCLOBENZAPRINE HCL 10 MG TABLET PO ×2 (01:19→09:13)
[2025-02-03] MEDS: HYDROcodone/acetaminophen (*CRX) 7.5-325 MG TABLET 1 TAB PO ×2 (01:19→09:09)
[2025-02-03 05:56] VITALS: BP 118/54; PULSE 66; RESP 12; TEMP 36.4; O2SAT 98
[2025-02-03 06:36] LABS: Alanine Aminotransferase 17 U/L (6-35); Albumin Level 3.6 g/dL (3.5-5.1); Alkaline Phosphatase 82 U/L (38-126); Anion Gap 5 mmol/L (4-12); Aspartate Amino Transferase 24 U/L (14-36); Bilirubin,Total 0.4 mg/dL (0.2-1.3); Blood Urea Nitrogen 16 mg/dL (7-17); Calcium 8.6 mg/dL (8.4-10.2); Carbon Dioxide 29 mmol/L (22-30); Chloride 101 mmol/L (98-107); Estimated CRCL calculation 98 ml/min; Estimated Glomerular Filt Rate > 60; Glucose 110 mg/dL (65-110); Magnesium 2.1 mg/dL (1.6-2.3); Potassium 4.4 mmol/L (3.4-5.0); Sodium 135 mmol/L (137-145); Total Protein 6.6 g/dL (6.3-8.2)
[2025-02-03 08:02] LABS: Hematocrit 42.0 % (37.0-47.0); Hemoglobin 13.7 g/dL (12.0-15.0); Immature Granulocyte Percent A 1.2 % (0-0.5); Lymphocytes Absolute Auto 2.39 K/mm3 (0.9-3.2); Mean Corpuscular HGB Conc 32.6 g/dl (32-36); Mean Corpuscular Hemoglobin 28.2 pg (26-34); Mean Corpuscular Volume 86.4 fl (80-100); Nucleated Red Blood Cells Absolute Auto 0.000 K/mm3 (0.0-0.012); Nucleated Red Blood Cells Perc 0.0 % (0.0-0.2); Platelet Count Result 194 k/mm3 (150-375); Red Blood Count 4.86 M/mm3 (4.2-5.4); White Blood Count 6.6 K/mm3 (4.5-10.0)
[2025-02-03 09:10] VITALS: PULSE 66
[2025-02-03] MEDS: LORATADINE 10 MG TABLET PO (09:10)
[2025-02-03] MEDS: ATORVASTATIN 10 MG TABLET PO (09:10)
[2025-02-03] MEDS: METOPROLOL SUCCINATE EXT REL 25 MG TABCR PO (09:10)
[2025-02-03] MEDS: ENOXAPARIN 40 MG/0.4 ML SYRINGE SUB-Q (09:11)
--- NOTE | 2025-02-03 09:17 | P.CDI_ITS ---
CDI Query Clarification Request 1) Clarification request - UTI has been documented, chronic suprapubic pulido catheter documented. Please clarify if UTI is: * due to/associated with chronic suprapubic pulido catheter * not due to/associated with chronic suprapubic pulido catheter * unable to determine 2) Please specify type and acuity of heart failure if known. * Acute * Chronic * Acute on Chronic * Unknown * Systolic * Diastolic * Combined Systolic and Diastolic * Unknown The medical chart reflects the following: ER: Ppatient states she is concerned she has urinary tract infection as she has experienced abdominal pain and left flank pain and in general feels lightheaded and this is how she has previously felt with urinary tract infection. She reports foul-smelling odor and low abdominal pain as well as particular matter in her urine since Friday. She reports that her urostomy stoma been protruding a bit and that she had noticed some purplish black issue centrally earlier in this had happened previously when she had an infection. She denies any danielle fevers although she has been having sweats and chills. Assessment and Plan (1) Fecal impaction: Code(s): K56.41 - Fecal impaction Status: Acute (2) UTI (urinary tract infection): Code(s): N39.0 - Urinary tract infection, site not specified Status: Acute (3) Paraplegia: Code(s): G82.20 - Paraplegia, unspecified Status: Acute Plan UTI Presented with suprapubic pain and vomiting Patient has a history of urostomy from Spinal cord injury, which is a risk factor F/u Blood and urine cultures Continue Rocephin Fecal impaction with possible stercoral colitis CT reviewed Continue Rocephin and Added fFlagyl follow up culture HTN titrate home meds with clinical course CHF titrate home meds with clinical course <Domenica Johnson RN - Last Filed: 02/03/25 09:32> Clarified Diagnosis Clarified Diagnosis: Chronic diastolic UTI associated with urostomy bag <Gerhard Carmona MD - Last Filed: 02/03/25 10:56>
--- NOTE | 2025-02-03 12:22 | PM.DS ---
DS: Admitting Diagnosis Discharge Date 02/03/25 Admitting Diagnosis suprapubic pain DS: Discharge Diagnosis Discharge Diagnosis (1) Urinary tract infection: Qualifiers: Hematuria presence: without hematuria Urinary tract infection type: acute cystitis Qualified Code(s): N30.00 - Acute cystitis without hematuria Code(s): N39.0 - Urinary tract infection, site not specified Status: Acute DS: Summary Hospital Course Hospital Course: 59 yo female with pMH of HTN, Afib and CHF, paraplegic with urostomy who presented to the ER on account of suprapubic pain, and cloudy urine. Mello noted her symptoms started about 3 days ago, associated with flank pain and vomiting. Also noted diarrhea, however stated that both diarrhea and vomiting has resolved. Denies any Chest pain, SOB, and no new focal weakness, and blood in stool. ER eval notable for BP 151/72, saturating 98% on room air. labs notable for trace Leukocyte esterase and pyuria. Ddimer 1.[address] AP showed fecak stasis and mural thickening of rectum, mild hydronephrosis of the right kidney. Troponin negative Blood and urine culture were obtained , patient started on Rocephin prior to admission Patient's symptoms improved markedly on Rocephin. Given the delays on cultures, i discussed with patient that i will discharge her on Cefdinir for another 10 days and have her follow up with her primary urology as soon as possible. ALso we will jeffery out to her if the Urine culture results with a different antibiotics. Continue other home meds. F/u with PCP in 3-5 days F/u with primary urology as instructed Time Spent with Patient Time attestation: Total time spent providing and/or coordinating discharge services: DS: Data Data Completed and Pending Labs on day of discharge: Labs from last 24 hours 02/03/25 02/03/25 07:47 05:57 WBC 6.6 RBC 4.86 Hgb 13.7 Hct 42.0 MCV 86.4 MCH 28.2 MCHC 32.6 RDW 14.2 Plt Count 194 MPV 9.6 Immature Gran % (Auto) 1.2 H Neut % (Auto) 51.8 Lymph % (Auto) 36.1 [place] % (Auto) 7.3 Eos % (Auto) 2.1 Baso % (Auto) 1.5 H Lymph # (Auto) 2.39 [place] # (Auto) 0.5 Eos # (Auto) 0.1 Baso # (Auto) 0.1 Abs Immat Gran (auto) 0.08 H Absolute Neuts (auto) 3.4 Absolute Nucleated RBC 0.000 Nucleated RBC % 0.0 Sodium 135 L Potassium 4.4 Chloride 101 Carbon Dioxide 29 Anion Gap 5 BUN 16 Creatinine 0.68 L Estim Creat Clear Calc 98 Estimated GFR > 60 Glucose 110 Calcium 8.6 Magnesium 2.1 Total Bilirubin 0.4 AST 24 ALT 17 Alkaline Phosphatase 82 Total Protein 6.6 Albumin 3.6 Preliminary micro results at discharge 01/31/25 23:58 Blood Culture - Preliminary Blood 01/31/25 23:24 Blood Culture - Preliminary Blood Discharge Plan Discharge Attending physician on discharge: Gerhard Carmona Discharging Clinician: Gerhard Carmona Anticipated Discharge Date/Time: 02/03/25 12:18 Patient Disposition: Home Activity: as tolerated Diet: as tolerated and heart healthy Discharge Instructions: Patient encouraged to follow up with primary urology soon as possible Patient Instructions: Antibiotic Form Patient Language: Ecuadorean Stand Alone Forms: General Discharge Information Follow-up/Referrals: Panchito Walters DO [Primary Care Provider] - (F/u with PCP in 3-5 days ) Discharge Medications: New cefdinir 300 mg capsule 300 mg PO Q12H 10 Days Qty: 20 0RF Continued ibuprofen 600 mg tablet 600 mg PO TID PRN (Reason: pain) Qty: 30 0RF ropinirole 0.5 mg tablet 1 mg PO BID Patient Comments: takes at 1700 and 2100 polyethylene glycol 3350 [Miralax] 17 gram/dose powder 17 g PO DAILY PRN (Reason: constipation) losartan 100 mg tablet 100 mg PO HS cyclobenzaprine 10 mg tablet 10 mg PO Q8H PRN (Reason: muscle spasm) diclofenac sodium [Voltaren Arthritis Pain] 1 % gel 2 g topical QID Qty: 100 1RF Rx Instructions: apply to single elbow, wrist or hand; for hand includes palm/fingers/back of hand alprazolam 0.25 mg tablet 0.25 mg PO TID PRN (Reason: anxiety) Qty: 60 0RF olanzapine 5 mg tablet 5 mg PO DAILY Qty: 30 0RF zolpidem [Ambien] 5 mg tablet 5 mg PO QHS Qty: 30 0RF atorvastatin 10 mg tablet 10 mg PO DAILY Qty: 90 1RF aspirin [Adult Low Dose Aspirin] 81 mg tablet,delayed release (DR/EC) 81 mg PO DAILY Qty: 90 2RF ondansetron 4 mg tablet,disintegrating 4 mg PO Q8H PRN (Reason: nausea and vomiting) Qty: 20 0RF furosemide 20 mg tablet See Rx Instructions .ROUTE .COMPLEX Qty: 90 2RF Dose Instruction: 20 MG ORALLY EVERY MORNING Rx Instructions: 20 MG ORALLY EVERY MORNING methocarbamol 750 mg tablet 750 mg PO TID Qty: 90 2RF Patient Comments: takes at 0900, 1500, 2100 Ozempic 0.25 mg or 0.5 mg (2 mg/3 mL) pen injector 0.25 mg subcut WEEKLY Qty: 6 0RF metoprolol succinate 25 mg tablet extended release 24 hr 25 mg PO DAILY Qty: 90 2RF hydrocodone-acetaminophen 7.5-325 mg tablet 1 tablet PO Q8H PRN (Reason: pain) Qty: 30 0RF Date of admission: 02/02/25 10:18 Primary Care Provider: Panchito Walters Admitting Provider: Marina Franco Attending physician on admission: Marina Franco Condition: Stable
--- NOTE | 2025-02-04 08:42 | PC.NURSE ---
Urine cx growing normal urogenital maliha. Dr. Mathew barnett.
== END 2025-02-03 13:45 | disposition home or self-care (01) | DRG 699 ==
LOC: ANHED 21:15 → ANH3MEDSUR 02-01 06:49
PROVIDERS: Family Medicine; Admitting Provider Internal Medicine; Emergency Provider Student in an Organized Health Care Education/Training Program; PCP Internal Medicine; Visit Provider Internal Medicine
DX: N99.521 Infection of incontinent external stoma of urinary tract (principal); G82.20 Paraplegia, unspecified; J98.11 Atelectasis; I50.32 Chronic diastolic (congestive) heart failure; N13.30 Unspecified hydronephrosis; I11.0 Hypertensive heart disease with heart failure; K56.41 Fecal impaction; R07.9 Chest pain, unspecified; R42 Dizziness and giddiness; I48.91 Unspecified atrial fibrillation; Z79.82 Long term (current) use of aspirin; Z79.85 Long-term (current) use of injectable non-insulin antidiabetic drugs; Z79.899 Other long term (current) drug therapy; Z86.73 Personal history of transient ischemic attack (TIA), and cerebral infarction without residual deficits; Z90.49 Acquired absence of other specified parts of digestive tract
CPT/HCPCS: 36415; 70450; 71046; 71275; 74177; 80053; 81001; 83690; 83735; 83880; 84484; 85025; 85380; 85610; 85730; 87040; 87086; 93005; 96361; 96365; 96375; 99285; A9270; G0378; J0696; J1650; J1836; J1885; J2270; J2405; J3360; J7030; J7040; Q9967

== ENCOUNTER 2025-03-20 12:59 | Inpatient (IN) | payer MEDICARE, SELFPAY ==
--- OUTSIDE RECORDS SUMMARY | 2009-07-19 19:00 | XMS_ITS | Continuity of Care Document ---
Author Organization [facility] Address [address] [place] [address] Phone Care Team Providers Care Method Consultant Name Role Phone Jon Rodriguez MD Unavailable Unavailable Advance Directives Directive Yes / No Effective Date File Name No Information Encounters Encounter Description Practice Location Reason(s) For Visit Diagnoses Date Provider Providers Copied on Encounter [facility], Box [facility], [place], [place], [id number], tel:[phone] [facility] LUMBAGO 0 Michael Webb. [address] [place] [address], [id number], . tel:[phone] [facility], Box [facility], [place], [place], [address], tel:[phone] [facility] LUMBOSACRAL NEURITIS NOS 0 Ranjith Salazar. [address] [place] [address], [id number], . tel:[phone] [facility] Box [facility], [place], [place], [address], tel:[phone] [facility] SPINAL STENOSIS-LUMBA R 8 No Information [facility] Box [facility], [place], [place], [address], tel:[phone] [facility] JOINT DIS NEC-PELVIS [address] [facility] Box [address] [place] [address], [id number], tel:[phone] [facility] [place] (Ip) ARTHRODESIS STATUS 7 Michael Webb. [address] [place], [place], [address], [place]. tel:[phone] [facility], PO [address] [facility], [place], [place], [address], [place] tel:[phone] [facility] [place] (Ip) LUMBAR DISC DISPLACEMENT 7 Michael Webb. [address] [facility], [place], [place], [address], [place]. tel:[phone] [facility], Box [facility], [place], [place], [address], [place] tel:[phone] [facility] [place] (Op) PREOP RESPIRATORY EXAM 7 No Information [facility], Box [facility], [place], [place], [id number], [place] tel:[phone] [facility] [place] (Op) PAIN IN LIMB 7 Michael Webb. [address] [place] [address], [place], [place], [address], [place]. tel:[phone] [facility], Box [facility], [place], [place], [address], [place] tel:[phone] [facility] CERVICALGIA 6 Juliann Gibson. [address], [place], [place], [address], [place]. tel:[phone] [facility], [address] [place] [address], [id number], [place] tel:[phone] [facility] OTH ADV EFF MED/BIO SUB 6 No Information [facility], Box [facility], [place], [place], [address], [place] tel:[phone] [facility] [place] (Er) FALL NOS 2200 6 Monica Tapia. [address], [place], [place], [address]. tel:[phone] [facility], Box [facility], [place], [place], [address], [place] tel:[phone] [facility] [place] (Op) HEADACHE 5200 6 Ranjith Salazar. [address], [place], [place], [address], [place]. tel:[phone] [facility], [address] Box [facility], [place], [place], [address], tel:[phone] [facility] [place] (Op) HEAD INJURY NOS 6 Michael Castellano [address] [place], [place], [address], . tel:[phone] [facility], [address] Box [facility], [place], [place], [address], tel:[phone] [facility] [place] (Er) CERVICAL SPINAL STENOSIS 6 Juliann Sauceda [address] [place] [address], [id number], . tel:[phone] [facility], Box [facility], [place], [place], [address], tel:[phone] [facility] [place] (Er) BRACHIAL NEURITIS NOS 6 Juliann Sauceda [address] [place] [address], [id number], . tel:[phone] [facility], Box [facility], [place], [place], [address], tel:[phone] [facility] [place] (Ip) FOLLOW-UP SURGERY NOS 4 Michael Castellano [address] [place], [place], [address], . tel:[phone] [facility], Box [facility], [place], [place], [address], tel:[phone] [facility] [place] (Op) COUGH 4 No Information Family History Family Member Type Diagnosis Age At Onset No Information Payers Payer name Insurance type Covered democrat ID Authoriza tion(s) No Information Social History Type Description Quantity Date Captured Comments Sex Female Smoking Status No Information Chief Complaint And Reason For Visit No Information Reason For Referral Reason For Referral No Information History Of Present Illness Encounter Date Complaint History Of Prese nt Illness No Information Functional Status Date Functional Assessmen t No Information Instructions Date Instruction Additional Infor mation No Information Assessments Type Assessment Date No Information Patient Care Teams Name Effective Dates (start - stop) Status Members No Information
--- OUTSIDE RECORDS SUMMARY | 2016-07-19 05:50 | XMS_ITS | Continuity of Care Document ---
Author Organization [facility] Address [address] [place] [address] Phone Care Team Providers Care Air Force Pilot Name Role Phone Shreyas Dumont MD Unavailable Unavailable Allergies, Adverse Reactions, Alerts Substance Reaction Status Criticality Sulfa (Sulfonamide Antibiotics) Hives Active No Information Penicillins Hives Active No Information TAPE, OCCLUSIVE ADHESIVE Active No Information Penicillins Unknown Active No Information Medications Medication Instructions Dosage Effective Dates (start - stop) Status Comments [place] 5 mg-325 mg tablet take 1-2 tabs p o q 6-8 hours for pain PRN - Active Medrol (Berto) 4 mg tablets in a dose pack Take as directed. - Active HYDROCHLOROTHIAZIDE (unknown strength) take 1 capsule by oral route every day Not Available - Active tramadol 50 mg tablet take 1 tablet by oral route every 4 - 6 hours as needed 50 MG - Active BACLOFEN (unknown strength) take 1 tablet by oral route 4 times every day Not Available - Active LYRICA (unknown strength) take 1 Capsule by oral route 3 times every day Not Available - Active simvastatin 10 mg tablet - Activ e tizanidine 4 mg capsule - Active hydrochlorothiazide 25 mg tablet - Active tramadol 50 mg tablet - Active losartan 25 mg tablet - Active alprazolam 0.25 mg tablet - Active Procedures Procedure Date POSTOP FOLLOW-UP VISIT POSTOP FOLLOW-UP VISIT OFFICE/OUTPATIENT VISIT EST CARMINE AMAYA COMPL MINIMUM 3 VIEWS 2015 OFFICE/OUTPATIENT VISIT EST OFFICE/OUTPATIENT VISIT [facility] Advance Directives Directive Yes / No Effective Date File Name No Information Encounters Encounter Description Practice Location Reason(s) For Visit Diagnoses Date Provider Providers Copied on Encounter [facility], [address], [place], [address], [place] [phone] [facility] [place] Ulnar neuropathy at elbow, leftPostopera tive visit 0 7 Tim Pritchett. [address], [place], [place], [address] . tel: [phone] [facility], [address] [address], [place], [address], [place] tel:[phone] [facility] Ulnar neuropathy at elbow, left 8 7 Paul Handley. [address], [place], [place], [address] . tel: [phone] [facility], [address] [address], [place], [address], [place] [phone] [facility] Numbness of left hand 7- 7 Tim Pritchett. [address], [place], [place], [address] . tel: [phone] [facility], [address] [address], [place], [address], [place] [phone] [facility] [place] Postoperative visit 6 Tim Pritchett. [address], [place], [place], [address] . tel: [phone] [facility], [address] [facility], [place], [address], [place] tel:[phone] [facility] Ulnar neuropathy at elbow, left 6 Tim Pritchett. [address], [place], [place], [address] . tel: [phone] OFFICE/OUTPA TIENT VISIT EST [facility], [address], [place], [address], [place] tel:[phone] [facility] [place] Pain in left elbowUlnar neuropathy at elbow, left 6 Tim Pritchett. [address], [place], [place], [address] . tel: [phone] OFFICE/OUTPA TIENT VISIT EST [facility], [address], [place], [address], [place] [phone] [facility] [place] Pain in left elbowUlnar neuritis, left 6 Tim Pritchett. [address], [place], [place], [address] . tel: [phone] Referring Provider: [facility]igue [facility]uso [facility] [address], [place], [address]. [phone] OFFICE/OUTPA TIENT VISIT [facility], [address] [facility], [place], [address], [place] [phone] [facility] evnv left thumb/hand (chief complaint) Primary osteoarthriti s of first carpometacarp al joint of left handDe Quervain's tenosynovitis 6 Ciera Brice. [address] [place], [place], [address] . tel: [phone] Family History Family Member Type Diagnosis Age At Onset Father Problem (finding) Cancer, unknown Payers Payer name Insurance type Covered green party ID Authoriza tion(s) No Information Social History Type Description Quantity Date Captured Comments Alcohol Use Details No Caffeine Use Details Unknown Tobacco Use Status Never smoked tobacco 2016 Smoking Status Never smoker Non-Smoking Tobacco Use Details : No Details Available : No Details Available Sex Female Chief Complaint And Reason For Visit No Information Reason For Referral Reason For Referral No Information Plan Of Treatment Date Type Action Status Referral Ordered: MUSC TEST DONE W/N TEST COMP (EMG/NCS) LT Appointment date/timeframe: 07/17/2016 ordered Referral Ordered: RADEX ELBW COMPL MINIMUM 3 VIEWS LT ordered Referral Ordered: MUSC TEST DONE W/N TEST COMP (EMG/NCS) LT arm ordered Referral Ordered: RADEX HAND MINIMUM 3 VIEWS LT ordered Referral Ordered: RADEX WRST COMPL MINIMUM 3 VIEWS LT ordered History Of Present Illness Encounter Date Complaint History Of Prese nt Illness eval left thumb/hand Functional Status Date Functional Assessmen t No Information Instructions Date Instruction Additional Infor matclint Weight bearing status as directe d. Related to Postoperative visit Weight bearing status as directe d. Related to Postoperative visit Weight bearing status as directe d. Related to Pain in left elbow Discussed treatment options Rela kely to Pain in left elbow Activity as tolerated. Related t o Ulnar neuritis, left Use anti-inflammatory as directe d. Related to Ulnar neuritis, left Discussed treatment options. Rel ated to Ulnar neuritis, left activity as tolerated Related to De Quervain's tenosynovitis apply heating pad or ice as tolerated Related to De Quervain's tenosynovitis immobilize if directed Related t o De Quervain's tenosynovitis Assessments Type Assessment Date assessment Ulnar neuropathy at elbow, left assessment Postoperative visit Patient Care Teams Name Effective Dates (start - stop) Status Members No Information
--- OUTSIDE RECORDS SUMMARY | 2025-01-19 08:20 | XMS_ITS | Continuity of Care Document ---
Author Organization [facility] Address [address] [place] [address] Phone Care Team Providers Care Technical Operations Specialist Name Role Phone Arthur Up Unavailable Unavailab le Allergies, Adverse Reactions, Alerts Substance Reaction Status Criticality vancomycin Active No Information Penicillins Rash, Swelling, DifficultyBreath Active No Information Penicillins Rash, Swelling, DifficultyBreath Active No Information latex ItchyEyes Active No Information latex ItchyEyes Active No Information Sulfa (Sulfonamide Antibiotics) Rash, Swelling Active No Information latex Rash Active No Information Medications Medication Instructions Dosage Effective Dates (start - stop) Status Comments hydrocodone 7.5 mg-acetaminophen 325 mg tablet - Active zolpidem 5 mg tablet TAKE 1 TABLET BY MOUTH NIGHTLY NEEDED FOR INSOMNIA - Active levofloxacin 750 mg tablet - Active polyethylene glycol 3350 17 gram/dose oral powder TAKE 17 GRAMS BY MOUTH EVERY DAY - Active valacyclovir 500 mg tablet TAKE 2 TABLET BY MOUTH EVERY 12 HOURS *NOT COVERED DUE TO DOSE - Active furosemide 20 mg tablet - Active methocarbamol 750 mg tablet TAKE 1 TABLET BY MOUTH THREE TIMES A DAY *NOT COVERED* - Active acetaminophen ER 650 mg tablet,extended release TAKE 1 TABLET BY MOUTH EVERY 8 HOURS NEEDED FOR PAIN - Active ibuprofen 600 mg tablet - Active cyclobenzaprine 10 mg tablet - Active baclofen 20 mg tablet - Acti ve pregabalin 100 mg capsule TAKE 1 CAPSULE BY MOUTH THREE TIMES A DAY - Active pregabalin 50 mg capsule - Active linezolid 600 mg tablet TAKE 1 TABLET BY MOUTH EVERY 12 HOURS - Active gabapentin 300 mg capsule - Active ondansetron 4 mg disintegrating tablet - Active ropinirole 0.5 mg tablet TAKE 1 TABLET BY MOUTH TWICE A DAY - Active Senexon-S 8.6 mg-50 mg tablet 1 TABLET BY MOUTH TWICE A DAY - Active atorvastatin 10 mg tablet TAKE 1 TABLET BY MOUTH EVERY DAY - Active escitalopram 20 mg tablet TAKE 1 TABLET BY MOUTH EVERY DAY - Active metoprolol succinate ER 25 mg tablet,extended release 24 hr TAKE 1/2 TABLET BY MOUTH EVERY DAY - Active losartan 100 mg-hydrochlorothiazide 12.5 mg tablet - Active hydrocodone 5 mg-acetaminophen 325 mg tablet TAKE 1 TABLET BY MOUTH EVERY 8 HOURS NEEDED FOR PAIN - No Longer Active benzonatate 200 mg capsule TAKE 1 CAPSULE BY MOUTH 3 TIMES A DAY NEEDED FOR COUGH - No Longer Active hydrocodone 10 mg-acetaminophen 325 mg tablet - No Longer Active ropinirole 1 mg tablet - No Longer Active gabapentin (bulk) 100 % powder - No Longer Active Procedures Procedure Date X-ray exam hand, 3+ views BMI Documented Above Normal Limit F/U Pl an Doc Office/outpatient visit,est, mod 2024 Asp/inject Minor joint or bursa w/o US g uidance Kenalog 40mg/mL Thumb [facility] Splint, [employer] 025 BMI Documented Above Normal Limit F/U Pl an Doc X-ray exam knee, 3 views Office/outpatient visit,est, [...] Providers Copied on Encounter Office/outpa [place]ient visit,est, [facility], [address], [id number], [place] tel:[phone] [facility] Fell in shower hurt left hand and right hip low back (chief complaint) Pain in left handUnil primary osteoarth of first carpometacarp joint, l handRadial styloid tenosynovitis [de Quervain] 5 Efrain Laurent. [address] [facility] [address], [place], [place], [id number], [place]. tel:[phone] Referring Provider: Martin Medina, [address], [place], [address]. tel:[phone] [facility], [address] [address], [place], [place], [id number], [place] tel:[phone] [facility] No Information 5 Efrain DO Gibson. [address] [facility], [facility] [address], [place], [place], [id number], [place]. tel:[phone] Office/outpa [place]ient visit,est, [facility], [address] [facility] [address], [place], [place], [id number], [place] tel:[phone] r knee (chief complaint) Pain in right knee 4 Klaus Mcfarlane. [address] [facility], [address], [place], [place], [id number], . tel:[phone] Referring Provider: Martin Medina, [address] [place] [address] [address] [facility], [place], [address]. tel:[phone] [facility], [address] [place] [address], [id number], tel:[phone] [facility] Pain in left shoulder Aug- 5-202 2 Klaus Mcfarlane. [address] [place] [address], [place] [address], [place], [place], [id number], [place]. tel:[phone] Office/outpa tient visit,[facility], [address] [place] [address], [id number], tel:[phone] [facility] fell Out Of Wheelchair And Shived Both Shoulders (chief complaint) Pain in left shoulderPain in right shoulder Aug- 0-202 2 Klaus Mcfarlane. [address] [place] [address], [place] [address], [place], [place], [id number], [place]. tel:[phone] Referring Provider: Martin Medina, [address] [place] [address] [address] [facility], [place], [address]. tel:[phone] Office/outpa tient visit,[facility] [employer] [facility], [address] [place] [address], [id number], tel:[phone] [facility] No Information Sep-201 0 No Information Referring Provider: Martin Medina, [address] [place] [address] [address] [facility], [place], [address]. tel:[phone] Family History Family Member Type Diagnosis Age At Onset Mother Problem (finding) Heart Disease Brother Problem (finding) Depression Mother Problem (finding) Cancer, unknown Mother Problem (finding) Depression Brother Problem (finding) Hypertension Father Problem (finding) Cancer, unknown Mother Problem (finding) Hypertension Father Problem (finding) Hypertension Father Problem (finding) Depression Payers Payer name Insurance type Covered republican ID Authoriza tion(s) [employer] Medicare Advantage CI [id number] Social History Type Description Quantity Date Captured Comments Alcohol Use Details No Caffeine Use Details Unknown Tobacco Use Status No Information Smoking Status No Information Non-Smoking Tobacco Use Details : No Details Available : No Details Available Sex Female Gender Identity Female Vital Signs Date / Time: Height Weight BMI Pulse Rate Blood Pressure Temperature Respiratory Rate Body Surface Area Head Circumference Head Circ. Percentile Wt./Clement. Percentile BMI percentile Pulse Ox Inhaled Ox 1:11 PM 68.00 in 99.790 kg (220.00 lbs) 33.4 5 kg/m eter (2) Chief Complaint And Reason For Visit From encounter dated '01/19/2025 13:20'. Fell in shower hurt left hand and right hip low back (chief complaint) Reason For Referral Reason For Referral No Information Plan Of Treatment Date Type Action Status Referral Ordered: EMG NCS LT ordered Referral Ordered: X-ray exam hand, 3+ views LT ordered Referral Ordered: X-ray exam knee, 3 views RT knee ordered Referral Ordered: MRI Upper extr joint, w/o contrast LT shoulder ordered Referral Ordered: X-ray exam shoulder complete, minimum 2 views LT shoulder ordered Referral Ordered: X-ray exam shoulder complete, minimum 2 views RT shoulder ordered History Of Present Illness Encounter Date Complaint History Of Prese nt Illness Fell in shower hurt left hand and right hip low back r knee patient presents to the office today for evaluation of right knee pain fell Out Of Wheelcha ir And Shived Both Shoulders patient presents to the office today for evaluation of bilat shoulder pain Functional Status Date Functional Assessmen t No Information Instructions Date Instruction Additional Infor mation No Information Assessments Type Assessment Date assessment Pain in left hand Patient Care Teams Name Effective Dates (start - stop) Status Members No Information
[2025-03-20] VITALS (9 sets, daily range): BP systolic 139–161; BP diastolic 89–130; PULSE 72–91; RESP 18–20; TEMP 36.6–36.8; O2SAT 96–100; BMI 36.8
--- NOTE | ~2025-03-20 | CT_ITS ---
Angelina Mcnulty EXAMINATION: CT abdomen pelvis w con COMPARISON: None HISTORY: Lower abdominal pain TECHNIQUE: Axial images were obtained through the abdomen, pelvis post administration of IV contrast. Oral contrast was also administered. Coronal reconstruction images were obtained from the axial views. CT scan performed using dose optimization techniques including the following automated exposure control; adjustment of mA and/or kV; use of iterative reconstruction technique. Automatic exposure control was used to reduce radiation dose. Permanent radiation dose record is archived to PACS. FINDINGS: CT abdomen: LUNG BASES: The lung bases are clear. The visualized portions of the heart and pericardium are unremarkable. LIVER: Mild hepatic steatosis. Portal vein patent. SPLEEN: Unremarkable. KIDNEYS: Right Kidney: Unremarkable. No calculi. No hydronephrosis. Left Kidney: Unremarkable. No calculi. No hydronephrosis ADRENAL GLANDS: Unremarkable. PANCREAS: Within the pancreatic tail there is a cystic lesion 1 x 1 cm incompletely evaluated, contrast-enhanced MRI recommended. GALLBLADDER/BILIARY: Post cholecystectomy. STOMACH AND ESOPHAGUS: Visualized stomach and esophagus within normal limits. BOWEL/MESENTERY: Moderate fecal content. No colitis or diverticulitis. Postsurgical changes in the bowel. Prominence of the small bowel loops in the area of previous surgery otherwise no dilated small bowel loops identified. There are thickened loops of small bowel however several small bowel loops jani ear adherent to the anterior abdominal wall. Mesentery demonstrates ill-defined stranding. ADENOPATHY/RETROPERITONEUM: No lymphadenopathy. AORTA/VASCULATURE: IVC filter. FREE FLUID OR FREE AIR: None. CT pelvis: SOLID ORGANS/REPRODUCTIVE: Unremarkable. BLADDER: Bladder not identified. OSSEOUS STRUCTURES: Postsurgical changes lumbar spine. Spinal canal catheter. OVERLYING SOFT TISSUES: Postsurgical changes abdominal wall with a left-sided ostomy and parastomal hernia containing large bowel, there is nonspecific loculated fluid noted in the subcutaneous tissues but no abnormal rim enhancement. Right-sided ventral abdominal wall hernia contains fat, defect in the abdominal wall 1 cm. IMPRESSION: 1. No acute intra-abdominal process. 2. Pancreatic lesion, contrast-enhanced MRI recommended. Incidental findings detailed above. Reviewed, dictated and finalized at location A. IMPRESSION: 1. No acute intra-abdominal process. 2. Pancreatic lesion, contrast-enhanced MRI recommended. Incidental findings de tailed above.
--- NOTE | ~2025-03-20 | CT_ITS ---
CT abdomen pelvis w con Clinical History: re evl abd pain . Comparison: 4 days prior Technique: Axial images lung bases to symphysis pubis IV contrast information not listed in PACS Coronal, sagittal reformats CT images acquired with automatic exposure control for dose reduction DLP: 1721 mGy-cm Findings: Lung bases: Right basilar atelectasis. Visualized heart and pericardium: Unremarkable. Liver: Enlarged. Steatosis. Gallbladder: Removed. Spleen: Unremarkable. Pancreas: Cystic lesion within tail. Adrenal glands: Unremarkable. Kidneys: Right kidney- hydronephrosis. No renal stones. Left kidney- hydronephrosis. No renal stones. Distal esophagus/stomach: Unremarkable. Small bowel loops: Normal caliber and wall thickness. Colon: Diverticula. Normal caliber and wall thickness. Appendix not seen. Nodes: No enlarged nodes. Peritoneum: No ascites. No free air. Right lower quadrant ileal conduit. Midline abdominal wall urostomy. Small peristomal hernia containing fat and fluid; previous colon within hernia sac reduced. Urinary bladder: Removed. Uterus: Removed. Adnexa: No masses. Bones: No acute bony abnormality. Soft tissues: Unremarkable. Aorta: No aneurysm or dissection. IVC: Filter. Main portal vein/SMV/splenic vein: Patent. IMPRESSION: 1. No acute findings to account for pain. 2. Bilateral hydronephrosis but no obstruction identified. Reviewed, dictated and finalized at location R.
--- OUTSIDE RECORDS SUMMARY | 2025-03-20 13:02 | XMS_ITS | Clinical Summary ---
Author Organization [facility] Address [address] [place] [address] Phone Care Team Providers Care Flarer Name Role Phone Fiordaliza Snell MD Primary [...] migh t be different from the original. 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 Eddie Tapia MD, FAC, [facility] - [address] [facility] Problem Noted Date Diagnosed Date YAJAIRA [...] NOS Added automatically from request for surgery [id number] Last Assessment & Plan: Healing fusion C6-7 [...] (09/14/2021): Added automatically from request for surgery [id number] Cervical pain (neck) 06/13/2018 Intractable pain 10/13/2011 [...] COVID-19 VACCINE - EMERGENCY USE AUTHORIZATION, MRNA, [id number](PF) 30 MCG/0.3 ML IM SUSP 12/13/2020,11/20/2020 (PNEUMOVAX [...] on file Legal Sex Female 2:43 AM STRUCTURER Gender Identity Not on file Sexual Orientation [...] CDT Respiratory Rate 18 07/12/2020 9:24 PM STRUCTURER Oxygen Saturation 97% 04/20/2021 2:12 PM CDT Inhaled Oxygen Concentration - - Weight 91.6 kg (202 lb) 08/07/2020 2:15 PM STRUCTURER Height 172.7 cm (5' 8) 04/20/2021 2:12 PM CDT Body Mass Index 30.71 08/07/2020 2:15 PM STRUCTURER Plan of Treatment Health Maintenance Due Date Last Done Comments DTAP/TDAP/TD VACCINES (1 - Tdap) 1985 HEPATITIS B VACCINES (1 of 3 - 19+ 3-dose series) 1985 BREAST CANCER SCREENING 2006 FIT-DNA Q 3 years 09/27/2011 FIT/FOBT Q 1 year 09/27/2011 Flex Sig/CT Colonography Q 5 years 09/27/2011 ZOSTER VACCINE (1 of 2) 2016 INFLUENZA VACCINE (#1) 2025 0, 03/26/2019, 05/06/2018, Additional history exists COVID-19 Vaccine ( - 2024-2 6 season) 2025 12/13/2020, 11/20/2020 COLORECTAL SCREENING 11/28/2029 11/29/2019, 08/03/2019, 08/03/2019 Colorectal Cancer Screening 11/28/2029 Insurance AET[employer] PPO [facility] DUAL COMPLETE PPO [facility] [id number] Advance Directives For more information, please contact: [phone] * Full Code (Latest Code Status on File) Date Activated Date Inactivated Comments 07/02/2020 10:50 PM 07/13/2020 1:53 PM * Full Code Date Activated Date Inactivated Comments 06/26/2011 3:20 AM 06/26/2011 8:40 PM Care Teams Flarer Relationship Specialty Start Date End Date Fiordaliza Snell MD PCP - General Family Practice 09/09/22
--- OUTSIDE RECORDS SUMMARY | 2025-03-20 13:02 | XMS_ITS | Clinical Summary ---
Author Organization [facility] Address [address] [place] [address] Care Team Providers Care Engineering Surveyor Name Role Phone Lidia Barajas MD Unavailable Shilpa Gandhi MD Unavailable [phone] Iron Galindo PA-C Primary Care Provide r Cresencio Ghosh MD Unavailable Cresencio Ghosh MD Unavailable Source Comments [facility],non-owned Affiliates and Associated Physician Practices is amultiple site organization consisting of ambulatory clinics and hospital sitesin [place], [place], [place] and [place]. This disclosure is being madepursuant to the Care Everywhere program and may not contain all information available regarding this patient. Last updated 18.[facility] Allergies Active Allergy Reactions Criticality Noted Date [...] (spasms) 90 tablet 2 3 Active Nystop 334272 UNIT/GM powder Apply to affected area 2 [...] care, and heating? Not very hard 04/02/2023 [facility] [place] Occupat ional [facility] - Occupational Stress [...] slept in a custodial (including now)? No 04/02/2023 Comments No Sex and Gender Information Value Date Recorded Sex Assigned at Not on file Legal Sex Female 6:02 AM ASSISTANT IMPORT MANAGER Gender Identity Not on file Sexual Orientation Not on file Occupation Industry Job Start Date Job End Date Disabled Not on file Not on file Not on file Last Filed Vital Signs Vital Sign Reading Time Taken Comments Blood Pressure 157/91 05/07/2023 9:23 AM ASSISTANT IMPORT MANAGER Pulse 86 05/07/2023 9:23 AM ASSISTANT IMPORT MANAGER Temperature 36.3 C (97.3 F) 05/07/2023 9:23 AM ASSISTANT IMPORT MANAGER Respiratory Rate 18 04/02/2023 3:00 PM CDT Oxygen Saturation 95% 05/07/2023 9:23 AM ASSISTANT IMPORT MANAGER Inhaled Oxygen Concentration 97% 02/21/2021 1 0:15 [...] (1 of 2) 2016 MAMMOGRAM 09/19/2019 09/18/2017 DEPRESSION SCREENING 06/30/2024 MEDICARE AWV CALENDAR YEAR 2024 02/25/2020, 09/10/2017 COLON MONITORING 11/28/2024 11/29/2019, 06/2019, 08/03/2019, Additional history exists Colorectal Cancer Screening 11/28/2024 COVID-19 VACCINE ( season) 2025 07/01/2021, 12/13/2020, 11/20/2020 INFLUENZA VACCINE (#1) 2025 2, 07/01/2021, 03/22/2020, [...] < 140/90 Blood Pressure 157/91(2022 9:23 AM ASSISTANT IMPORT MANAGER) No Sierra Steiner Yearly PCP visit Lifestyle No White, Ava A Have labs drawn Lifestyle No White, Ava A Take recommended medication(s) Lifestyle No White, Ava A Use safety retraint in car Lifestyle No White, Ava A Complete Health Maintenance Screenings Lifestyle No White, Ava A Medical Devices Implanted Type Area Air Hammer Operator Device Identifier Shelf Expiration Date Model / Serial / Lot Nevro Neurostimulator Senza [id number] (Implanted 2016) Floseal Hemostatic Matrix Implanted:Qty: 1 on 04/02/2019 by Maicol Mcneil DO at [facility] N/A: Spine [employer] 08/10/2020 [id number] / / [id number] Graft Tissue Drgn + Bvn Clgn Mtrx 1x1in Implanted:Qty: 1 on 04/02/2019 by Maicol Mcneil DO at [facility] N/A: Spine [employer] 04/29/2021 [id number] / / [id number] Seal Tisseel Prima 1 Prefil Frz 4ml - [id number] Implanted:Qty: 1 on 04/02/2019 by Maicol Mcneil DO at [facility] N/A: Spine [employer] 08/27/2020 [id number] / [id number] / [id number] Impl Inj 1ml Coaptite Syr Bulk Agnt Implanted:Qty: 2 on 04/11/2020 by Dave Aparicio MD at [facility] N/A: Bladder [employer]imed 10/25/2022 [id number] / / [id number] Impl Inj 1ml Coaptite Syr Bulk Agnt Implanted:Qty: 2 on 02/05/2022 by Dave Aparicio MD at [facility] Bladder [employer] 10/16/2024 [id number] / / [id number] Stent Uret 7fr 80cm Str Cls Tip Llok Implanted:Qty: 1 on 09/03/2022 by Nel Cerna DO at [facility] Ureter [employer] 12/23/2025 [id number] / / [id number] Description:bilateral ureter s Procedures Procedure Name Priority [...] mL/min/1.7 3 m2 04/02/2023 3:07 AM CDT [facility] Blood BLOOD SPECIMEN / Unknown Lab Venipuncture / Unknown 04/02/2023 2:31 AM CDT 04/02/2023 2:39 AM CDT us Missy Sutherland MD LAB - CHEMISTRY ORDERABLES Final Result [address] [address], [facility] [phone] * ENDOSCOPY, COLON, SCREENING (11/29/2019) us Provider [...] participate in the care of your patient. [facility] Breast Care utilizes [facility] as a reminder system to notify patients of their next recommended mammogram. Narrative 09/23/2017 9:22 AM CDT EXAMINATION: Digital screening mammogram on 09/18/2017. Low-dose full-field digital breast tomosynthesis examination was performed with synthetic 2D images and 3D acquisitions. Computer assisted detection was utilized. PRIOR: Mammogram from [facility] on 11/13/2004. BREAST PARENCHYMAL DENSITY: The breasts are almost entirely fatty. RISK ASSESSMENT CALCULATION: Based on the information provided by your patient, her lifetime risk of breast cancer is average (<15%). Additional quantitative risk model data and patient history details have been scanned as a document/letter in [facility] electronic medical record (media tab). Please [...] Hx 04/01/2023 04/01/2023 MDRO 05/08/2023 05/08/2023 [place] [address] A[employer] [facility] [place] [address] [place] [address] [facility] [place] [address] Advance Directives Documents on File Type Date Recorded Patient Brick Burner Expl anation Adv Directive/Living Will/POA 09/16/2022 3:23 [...] 4:01 AM 05/11/2020 8:00 PM Care Teams Engineering Surveyor Relationship Specialty Start Date End Date Iron Galindo PA-C [address] [facility] [facility] [address] [place] [address] PCP - General Physician Fuel Cell Builder 02/12/23 Cresencio Ghosh MD [address] [place] [address] PCP - Attributed-[facility] MA STL P4P 10/28/24 Lidia Barajas MD [facility], [address] Anesthesiology-Pain Management 06/03/19 Shilpa Gandhi MD [address] [facility] [address] [place] [address] Oncology 06/03/19 Cresencio Ghosh MD [address] [place] [address] Internal Medicine Sleep Medicine 09/29/24
--- OUTSIDE RECORDS SUMMARY | 2025-03-20 13:02 | XMS_ITS | Encounter Summary ---
Author Organization [facility] Address [address] [place] [address] Care Team Providers Care Nursery Hand Name Role Phone Fiordaliza Snell MD [...] documented as of this encounter Care Teams Nursery Hand Relationship Specialty Start Date End Date Fiordaliza Snell MD PCP - General Family Practice 09/09/22 documented as of this encounter
--- OUTSIDE RECORDS SUMMARY | 2025-03-20 13:02 | XMS_ITS | Encounter Summary ---
Author Organization [facility] Address [address] [place] [address] Care Team Providers Care Loft Rigger Name Role Phone Fiordaliza Snell MD Primary Care Provider Encounter Details Date Type Department Care Team (Late st Contact Info) Description 05/06/2001 Emergency [facility] Pratik Fisher MD [address], [place] [id number] Er, Authorized P NO ADDRESS ON FILE ABDOMINAL PAIN OTHER SPEC SITE (Primary Dx) Social History Tobacco Use Types Packs/Day Years Used Date Smoking Tobacco: Never Assessed Comments Unknown Sex and Gender Information Value Date Recorded Sex Assigned at Not on file Legal Sex Female 2:43 AM COMPUTER ARCHITECT Gender Identity Not on file Sexual Orientation Not on file documented as of this encounter Plan of Treatment Not on file documented as of this encounter Visit Diagnoses Diagnosis Abdominal pain, other specified site- Primary documented in this encounter Additional Health Concerns Infection Onset Date Last Indicated Resolved Time R/O COVID-19 07/02/2020 07/02/2020 07/02/2020 8:53 PM COMPUTER ARCHITECT MRSA Comment:Resolved per Type and Duration of Precautions Recommended for Selected Infections and Conditions document 2023 update 07/02/2020 07/02/2020 03/16/20 10:58 AM CDT R/O COVID-19 07/10/2020 07/10/2020 07/10/2020 5:01 PM COMPUTER ARCHITECT documented as of this encounter Care Teams Loft Rigger Relationship Specialty Start Date End Date Fiordaliza Snell MD PCP - General Family Practice 09/09/22 documented as of this encounter
--- OUTSIDE RECORDS SUMMARY | 2025-03-20 13:02 | XMS_ITS | Encounter Summary ---
Author Organization [facility] Address [address] [place] [address] Care Team Providers Care Thermometer Maker Name Role Phone Fiordaliza Snell MD [...] on file Legal Sex Female 2:43 AM HEALTHCARE ADMINISTRATOR Gender Identity Not on file Sexual Orientation Not on file documented as of this encounter Plan of Treatment Not on file documented as of this encounter Visit Diagnoses Diagnosis Chronic salpingitis and oophoritis- Primary documented in this encounter Additional Health Concerns Infection Onset Date Last Indicated Resolved Time R/O COVID-19 07/02/2020 07/02/2020 07/02/2020 8:53 PM HEALTHCARE ADMINISTRATOR MRSA Comment:Resolved per Type and Duration of Precautions Recommended for Selected Infections and Conditions document 2023 update 07/02/2020 07/02/2020 03/16/20 24 10:58 AM CDT R/O COVID-19 07/10/2020 07/10/2020 07/10/2020 5:01 PM HEALTHCARE ADMINISTRATOR documented as of this encounter Care Teams Thermometer Maker Relationship Specialty Start Date End Date Fiordaliza Snell MD PCP - General Family Practice 09/09/22 documented as of this encounter
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
--- OUTSIDE RECORDS SUMMARY | 2025-03-20 13:02 | XMS_ITS | Encounter Summary ---
Author Organization [facility] Healthcare Address [address] [place] [address] Care Team Providers Care Inspector Fibrous Wallboard Name Role Phone Shilpa Frazier DO Primary Care Provider Lidia Barajas MD Unavailable Ab Melara MD Primary Care Provid er Encounter Details Date Type Department Care Team (Late st Contact Info) Description 04/24/2020 Telephone [facility] [address] [facility] [address] [place] [address] Tori Arias RN Social History [...] on file Legal Sex Female 11:49 PM AUTO SLIP COVER INSTALLER Gender Identity Not on file Sexual Orientation [...] DT MRSA 12/27/2021 03/06/2022 09/02/2022 3:05 AM AUTO SLIP COVER INSTALLER documented as of this encounter Care Teams Inspector Fibrous Wallboard Relationship Specialty Start Date End Date Shilpa Frazier DO PCP - General 06/12/18 07/15/21 Ab Melara MD [address] [address] PCP - General Family Medicine 07/16/21 Lidia Barajas MD Anesthesiologist Anesthesiology 01/13/20 documented as of this encounter
--- OUTSIDE RECORDS SUMMARY | 2025-03-20 13:02 | XMS_ITS | Encounter Summary ---
Author Organization [facility] Address [address] [place] [address] Care Team Providers Care Correspondence Specialist Name Role Phone Fiordaliza Snell MD Primary Care Provider Encounter Details Date Type Department Care Team (Late st Contact Info) Description 04/18/2003 Emergency [facility] L Otilia Rose MD [address] [place], [place] [id number] Er, Authorized P NO ADDRESS ON FILE ABDOMINAL PAIN RLQ (Primary Dx) Social History Tobacco Use Types Packs/Day Years Used Date Smoking Tobacco: Never Assessed Comments Unknown Sex and Gender Information Value Date Recorded Sex Assigned at Not on file Legal Sex Female 2:43 AM ONCOLOGY REP SPECIALIST Gender Identity Not on file Sexual Orientation Not on file documented as of this encounter Plan of Treatment Not on file documented as of this encounter Visit Diagnoses Diagnosis Abdominal pain, right lower quadrant- Primary documented in this encounter Additional Health Concerns Infection Onset Date Last Indicated Resolved Time R/O COVID-19 07/02/2020 07/02/2020 07/02/2020 8:53 PM ONCOLOGY REP SPECIALIST MRSA Comment:Resolved per Type and Duration of Precautions Recommended for Selected Infections and Conditions document 2023 update 07/02/2020 07/02/2020 03/16/20 24 10:58 AM CDT R/O COVID-19 07/10/2020 07/10/2020 07/10/2020 5:01 PM ONCOLOGY REP SPECIALIST documented as of this encounter Care Teams Correspondence Specialist Relationship Specialty Start Date End Date Fiordaliza Snell MD PCP - General Family Practice 09/09/22 documented as of this encounter
--- OUTSIDE RECORDS SUMMARY | 2025-03-20 13:02 | XMS_ITS | Clinical Summary ---
Author Organization [facility] al Address [address] [place] [address] Care Team Providers Care Ammunition Officer Name Role Phone Lidia Barajas MD [...] for pain 42 tablet 2 Active multivit ljhbuifk-uakw-AH-c alcium (THERA-M) 9 mg iron-400 mcg tabletIndications: [...] (10/24/2021): Added automatically from request for surgery [id number] Postlaminectomy syndrome, lumbar region 10/25/19 Overview (10/24/2021): Added automatically from request for surgery [id number] Assessment & Plan (07/03/2022 3:48 PM CAD TECHNICIAN): Ms. 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 Assessment & Plan (08/12/2018 10:35 AM CAD TECHNICIAN): Assessment Healing fusion C6-7 Plan Talked about do's and don'ts she is still to maintain her initial restrictions and return in 6 weeks for an x-ray Assessment & Plan (06/25/2018 2:43 PM CAD TECHNICIAN): [facility] [...] (06/18/2018): Added automatically from request for surgery [id number] Cervical pain (neck) 06/13/2018 Asthma 11/13/2013 Overview [...] oz pur e alcohol) Social Connection and Isolation Panel Answer Date Recorded In a typical week, [...] on file Legal Sex Female 11:49 PM CAD TECHNICIAN Gender Identity Not on file Sexual [...] 03/05/2022, 08/12/19 19 Covid-19 Vaccine (4 - 2024-2 6 season) 2025 07/01/2021, 12/13/2020, 11/20/2020 Influenza Vaccine (#1) 2025 2, 07/01/2021, 03/22/2020, Additional history exists Colon Cancer Screening-Colonoscopy 11/28/2029 11/29/2019 Hepatitis C Screening Completed 11/17/2019 Colon Cancer Screening-CT Colonography Discontinued 11/29/2019 Colon Cancer Screening-DNA Stool Discontinued 11/29/19 20 Colon Cancer Screening-FIT Discontinued 11/29/2019 Colon Cancer Screening-Sigmoidoscopy Discontinued 11/29/2019 Goals Goal Patient Goal Type Associated Problems Recent Progress Patient-Stated? Author CCM Chronic Pain Care Plan Chronic Care Management Worsening( 10:12 AM CAD TECHNICIAN) Milvia Mireles RN Note: Problem: Chronic Pain Goals: 1. Minimize further functional decline 2. Maximize quality of life 3. Control pain Strategies: - Activity/exercise program recommendation - Conservative stepwise pain medicine strategy with multi-disciplinary approach - Recommend healthy lifestyle strategies and compensatory methods as needed Medical Devices Implanted Type Area [employer] Cook Head Device Identifier Shelf Expiration Date Model / Serial / Lot Spinal Cord Stimulator-2016 Implanted:01/28 (Quantity not on file) Spinal Cord Stimulator Left: Hip Nevro Spinal Cord Stimulation System [id number] / / Description:Closed Bore only 1.5T or [...] ensure it has returned to pre-MRI settings. [employer] 700-025 I Factor Allograft Putty Syringe Graft 2.5cc Bone - [id number] Implanted:Qty: 1 on 07/03/2018 by Zachary Rothman MD at [facility] N/A: Spine Cervical Cer[employer] Inc 03/29/2021 700-025 / / [id number] Plate 1-Level 14 Mm Cervical - [id number] Implanted:Qty: 1 on 07/03/2018 by Zachary Rothman MD at [facility] N/A: Spine Cervical [employer] 30-0114 / / Screw 4.0x14mm Self Drilling Variable - [id number] Implanted:Qty: 4 on 07/03/2018 by Zachary Rothman MD at [facility] N/A: Spine Cervical [employer] 31-9484 / / Cage Spinal [id number] 7 Degree Porous Coated Latex Free - [id number] Implanted:Qty: 1 on 07/03/2018 by Zachary Rothman MD at [facility] N/A: Spine Cervical Spinal Elements [id number] / / Depuy Synthes Spine [id number] Substitute Bone Graft Fibergraft Gps Medium Putty 6cc - [id number] Implanted:Qty: 1 on 11/29/2021 by Dave Lousi MD at [facility] N/A: Lumbar-Sa cral Spine Depuy Synthes Spine [id number] 10/18/2023 [id number] / / [id number] [employer] Inc Osteosponge Allograft Chips Radiolucent Thk4-10mm Graft 30cc Bone [id number] - [id number] - [id number] Implanted:Qty: 1 on 11/29/2021 by Dave Louis MD at [facility] N/A: Lumbar-Sa cral Spine [employer] 10/14/2024 [id number] / [id number] / Depuy Synthes Spine Cage Post Spinal 4d Plif Ti [id number] - [id number] Implanted:Qty: 1 on 11/29/2021 by Dave Louis MD at [facility] N/A: Lumbar-Sa cral Spine Depuy Synthes Spine [id number] 07/30/2024 [id number] / / [id number] Depuy Synthes Spine Expedium 5.5mm 80mm Line Prebent Rodney Spinal Titanium Nonsterile [id number] - [id number] Implanted:Qty: 1 on 11/29/2021 by Dave Louis MD at [facility] N/A: Lumbar-Sa cral Spine Depuy Synthes Spine [id number] / / Depuy Synthes Spine Expedium 5.5mm 85mm Line Prebent Rodney Spinal Titanium Nonsterile [id number] - [id number] Implanted:Qty: 1 on 11/29/2021 by Dave Louis MD at [facility] N/A: Lumbar-Sa cral Spine Depuy Synthes Spine [id number] / / Depuy Synthes Spine Expedium 5.5mm 45mm Polyaxial Spine Screw Bone Titanium 5.5mm Rodney [id number] - [id number] Implanted:Qty: 2 on 11/29/2021 by Dave Louis MD at [facility] N/A: Lumbar-Sa cral Spine Depuy Synthes Spine [id number] / / Depuy Synthes Spine Expedium 6.5mm 45mm Polyaxial Spine Screw Bone Titanium 5.5mm Rodney [id number] - [id number] Implanted:Qty: 3 on 11/29/2021 by Dave Louis MD at [facility] N/A: Lumbar-Sa cral Spine Depuy Synthes Spine [id number] / / Depuy Synthes Spine Expedium 1 Inner Monoaxial Spine Screw Set Titanium [id number] - [id number] Implanted:Qty: 6 on 11/29/2021 by Dave Louis MD at [facility] N/A: Lumbar-Sa cral Spine Depuy Synthes Spine [id number] / / Depuy Synthes Spine Expedium 7mm 45mm 1 Innie Polyaxial Spine Screw Bone Titanium [id number] - [id number] Implanted:Qty: 1 on 11/29/2021 by Dave Louis MD at [facility] N/A: Lumbar-Sa cral Spine Depuy Synthes Spine [id number] / / Procedures Procedure Name Priority Date/Time [...] 11/29/2019 8:04 AM Admit Type: Inpatient Room: [facility] 4 Date of : 1965 Instrument [...] the bowel preparation was evaluated usingthe BBPS ([place] Bowel Preparation Scale) with scores of: Right [...] AM CDT) Hep A IgM Nonreactive [facility] Comment: Interpretive Data: If Hep A IgM Ab is reported as Equivocal, a new sample should be drawn in two weeks for testing. Current interpretive data was last revised on 19. Hep B core IgM Nonreactive Nonreactive [facility] Comment: Interpretive Data If HepB Core IgM Ab is reported as Equivocal, a new sample should be drawn in two weeks for testing. Current interpretive data was last revised on 19. Hep C Ab Nonreactive Nonreactive [facility] Comment: Interpretive Data Nonreactive: Antibodies to [...] revised on 2019. HepBsAg Nonreactive Nonreactive [facility] Blood specimen (specimen) 11/17/2019 4:13 AM CDT 11/17/2019 4:31 AM CDT [facility] MICROBIOLOGY - GENERAL ORDERABLES Final Result [facility] [address] Department [place] [address] from Last 3 Months or Most Recently Relevant to Health Maintenance Insurance UHC MEDICARE ADVANTAGE [facility] [place] [address] [facility] UHC MEDICARE ADVANTAGE Advance Directives For more information, please contact: [phone] Documents on File Type Date Recorded Patient Design Technician Expl anation Power of Android Programmer 11/29/2021 11:46 AM * Full Code (Latest [...] First Alternate Health Care Agent Care Teams Ammunition Officer Relationship Specialty Start Date End Date Ab Melara MD [address] [address] PCP - General Family Medicine 07/16/21 Lidia Barajas MD Anesthesiologist Anesthesiology 01/13/20
--- OUTSIDE RECORDS SUMMARY | 2025-03-20 13:02 | XMS_ITS | Encounter Summary ---
Author Organization [facility] Address [address] [place] [address] Care Team Providers Care Service Specialist Name Role Phone Shilpa Frazier DO Primary Care Provider [phone] Lidia Barajas MD Unavailable Shilpa Gandhi MD Unavailable Massiel Melara MD Primary Care Provider [phone] Shilpa Frazier DO Primary Care Provider Iron Galindo PA-C Primary Care Provide r Cresencio Ghosh MD Unavailable [phone] Cresencio Ghosh MD Unavailable [phone] Cresencio Ghosh MD Unavailable [phone] Encounter Details Date Type Department Care Team (Late st Contact Info) Description 01/23/2015 Therapy Visit EXTERNAL NON-[facility] DEPT Sunny Reynoso MD [address] [address] Social History Tobacco Use Types Packs/Day Years Used Date Smoking Tobacco: Never Alcohol Use Standard Drinks/Week Comments Yes 0 (1 standard drink = 0.6 oz pur e alcohol) 1-2 year Comments Unknown Sex and Gender Information Value Date Recorded Sex Assigned at Not on file Legal Sex Female 6:02 AM EMERGENCY MANAGEMENT PROGRAM SPECIALIST Gender Identity Not on file Sexual [...] NO NEED FOR ISOLATION AT THIS TIME; WHEEL TRUING MACHINE TENDER INF PREV [id number] 10/07/2019 10/07/2019 09/05/19 8:37 AM EMERGENCY MANAGEMENT PROGRAM SPECIALIST MRSA 10/07/2019 10/07/2019 01/29/2020 8:33 AM CDT MRSA 01/28/2020 01/28/2020 03/20/2020 7:45 AM CDT COVID-19 Under Investigation 04/06/2020 04/08/2020 04/09/2020 5:20 AM CDT MRSA 04/11/2020 04/11/2020 12/25/2020 9:00 AM CDT COVID-19 Under Investigation 08/07/2020 08/07/2020 08/08/2020 3:45 PM EMERGENCY MANAGEMENT PROGRAM SPECIALIST COVID-19 Under Investigation 08/11/2020 08/11/2020 08/12/2020 4:08 AM EMERGENCY MANAGEMENT PROGRAM SPECIALIST MRSA 05/13/2021 02/05/2022 09/04/2022 8:37 AM EMERGENCY MANAGEMENT PROGRAM SPECIALIST MRSA Hx 09/04/2022 09/04/2022 MDRO Comment:04/01/23 MDRO resolved, ES 02/23/2023 02/23/20232022 7:16 AM CDT MDRO Hx 04/01/2023 04/01/2023 MDRO 05/08/2023 05/08/2023 documented as of this encounter Care Teams Service Specialist Relationship Specialty Start Date End Date Shilpa Frazier DO [address] [facility] [address] [place] [address] PCP - General Family Medicine 08/06/17 07/31/20 Massiel Melara MD [address] [place] [address] PCP - General Family Medicine 08/01/20 10/01/20 Shilpa Frazier DO [address] [facility] [address] [place] [address] PCP - General Family Medicine 10/02/20 10/03/20 Iron Galindo PA-C [address] [address] [address] [place], [place] [id number] PCP - General Physician Pillar Worker 02/12/23 Cresencio Ghosh MD [address] [place] [address] PCP - Attributed-[facility] 12/29/23 09/14/24 Cresencio Ghosh MD [address] [place] [address] PCP - Attributed-[facility] 10/28/24 Lidia Barajas MD [address] [facility] [address] Anesthesiology-Pain Management 06/03/19 Shilpa Gandhi MD [address] [place] [address] Oncology 06/03/19 Cresencio Ghosh MD [address] [place] [address] Internal Medicine Sleep Medicine 09/29/24 documented as of this encounter
--- OUTSIDE RECORDS SUMMARY | 2025-03-20 13:02 | XMS_ITS | Encounter Summary ---
Author Organization [facility] Address [address] [place] [address] Care Team Providers Care Visual Developer Name Role Phone Fiordaliza Snell MD Primary Care Provider Encounter Details Date Type Department Care Team (Latest Contact Info) Description 11/13/2004 Outpatient Historical HIS [facility] RONALD Garcia, Anjali Gupta MD NO ADDRESS ON FILE LUMP OR MASS IN BREAST (Primary Dx) Social History Tobacco Use Types Packs/Day Years Used Date Smoking Tobacco: Never Assessed Comments Unknown Sex and Gender Information Value Date Recorded Sex Assigned at Not on file Legal Sex Female 2:[address] SECURITY Gender Identity Not on file Sexual Orientation Not on file documented as of this encounter Plan of Treatment Not on file documented as of this encounter Visit Diagnoses Diagnosis Lump or mass in breast- Primary documented in this encounter Additional Health Concerns Infection Onset Date Last Indicated Resolved Time R/O COVID-19 07/02/2020 07/02/2020 07/02/2020 8:53 [address] SECURITY MRSA Comment:Resolved per Type and Duration of Precautions Recommended for Selected Infections and Conditions document 2023 update 07/02/2020 07/02/2020 03/16/20 24 10:58 AM CDT R/O COVID-19 07/10/2020 07/10/2020 07/10/2020 5:01 [address] SECURITY documented as of this encounter Care Teams Visual Developer Relationship Specialty Start Date End Date Fiordaliza Snell MD PCP - General Family Practice 09/09/22 documented as of this encounter"
--- OUTSIDE RECORDS SUMMARY | 2025-03-20 13:02 | XMS_ITS | Encounter Summary ---
Author Organization [facility] Address [address] [place] [address] Care Team Providers Care Rib Trim Separator Name Role Phone Fiordaliza Snell MD Primary [...] on file Legal Sex Female 2:43 AM VEHICLE FUEL SYSTEMS CONVERTER Gender Identity Not on file Sexual Orientation [...] fL INTERFACE SYSTEM 10/14/2004 6:07 AM CDT pycoz HEMATOLOGY ORDERABLES Final Resu lt Performing Organization Address [facility] Phone Number INTERFACE SYSTEM Refer to clinic/hospital department * (ABNORMAL) BASIC METABOLIC PANEL (10/14/2004 6:07 AM CDT) Pathologist [facility] GLUCOSE 90 65 - 109 mg/dL INTERFACE [...] 22 - 30 mmol/L INTERFACE SYSTEM 10/14/2004 6:0 7 AM CDT pycoz CHEMISTRY ORDERABLES Final Resul t Performing Organization Address [facility] Phone Number INTERFACE SYSTEM Refer to clinic/hospital department * (ABNORMAL) AMYLASE (10/13/2004 9:56 AM CDT) AMYLASE 24(L) 28 - 100 U/L INTERFACE SYSTEM 10/13/2004 9:56 AM CDT Russell Marie CHEMISTRY ORDERABLES Final Resul t Performing Organization Address [facility] Phone Number INTERFACE SYSTEM Refer to clinic/hospital department * LIPASE (10/13/2004 9:56 AM CDT) LIPASE 20 13 - 60 U/L INTERFAC E SYSTEM 10/13/2004 9:56 AM CDT Russell Marie CHEMISTRY ORDERABLES Final Resul t Performing Organization Address [facility] Phone Number INTERFACE SYSTEM Refer to clinic/hospital [...] ORDERABLES Final Resu lt Performing Organization Address [facility] de Phone Number INTERFACE [...] ORDERABLES Final Resu lt Performing Organization Address [facility] Phone Number INTERFACE SYSTEM Refer to clinic/hospital department * (ABNORMAL) C-REACTIVE PROTEIN (10/13/2004 5:00 AM CDT) CRP 1.3(H) 0.0 - 0.8 mg/dL INTERFACE SYSTEM 10/13/2004 5:00 AM CDT us Russell Marie CHEMISTRY ORDERABLES Final Resul t Performing Organization Address [facility] Phone Number INTERFACE SYSTEM Refer to clinic/hospital [...] URINE ORDERABLES Final Result Performing Organization Address [facility] [place] Phone Number INTERFACE SYSTEM Refer to clinic/hospital [...] ORDERABLES Final Resu lt Performing Organization Address [facility] Co de Phone Number INTERFACE SYSTEM Refer [...] ORDERABLES Final Resul t Performing Organization Address [facility] Co de Phone Number INTERFACE SYSTEM Refer to clinic/hospital department * AMYLASE (10/12/2004 9:17 PM CDT) AMYLASE 39 28 - 100 U/L INTERFACE SYSTEM Comment:Previous specimen us ed; approved by floor. 10/12/2004 9:[address] MD CHEMISTRY ORDERABLES Final Resul t Performing Organization Address [facility] Co de Phone Number INTERFACE SYSTEM Refer [...] Lane MD HEMATOLOGY ORDERABLES Final Resu lt INTERFACE SYSTEM [...] ORDERABLES Final Resu lt Performing Organization Address [facility] Co de Phone Number INTERFACE SYSTEM Refer [...] ORDERABLES Final Resul t Performing Organization Address [facility] Co de Phone Number INTERFACE SYSTEM Refer to clinic/hospital department documented in this encounter Visit Diagnoses Diagnosis Abdominal pain, right lower quadrant- Primary documented in this encounter Additional Health Concerns Infection Onset Date Last Indicated Resolved Time R/O COVID-19 07/02/2020 07/02/2020 07/02/2020 8:53 PM VEHICLE FUEL SYSTEMS CONVERTER MRSA Comment:Resolved per Type and Duration of Precautions Recommended for Selected Infections and Conditions document 2023 update 07/02/2020 07/02/2020 03/16/20 10:58 AM CDT R/O COVID-19 07/10/2020 07/10/2020 07/10/2020 5:01 PM VEHICLE FUEL SYSTEMS CONVERTER documented as of this encounter Care Teams Rib Trim Separator Relationship Specialty Start Date End Date Fiordaliza Snell MD PCP - General Family Practice 09/09/22 documented as of this encounter
--- OUTSIDE RECORDS SUMMARY | 2025-03-20 13:02 | XMS_ITS | Patient Health Record ---
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 Problem Lumbosacral radiculopathy (5685792) Radiculopathy, lumbosacral region (M54.17) Active confirmed Plan Of Treatment No Information Insurance Providers Payer Name Payer Address Payer Phone Subscriber Number Group Number Insured Name Patient Relationship to Insured Coverage Start Date Coverage End Date [facility] [address] [place] [address] [id number] Angelina Mcnulty Self - patient is the insured Medical (General) History Medical History History ICD Code HBP heart attack osteoarthritis fibromyalgia urinary incontinence headaches migraines stroke nerve damage IBS asthma chronic bronchitis pneumonia depression anxiety Surgical History Surgery Date(Month/Year) spine fusion & stimulator 2004 spine fusion 2006 spine fusion 2021
--- OUTSIDE RECORDS SUMMARY | 2025-03-20 13:02 | XMS_ITS | Encounter Summary ---
Author Organization [facility] Address [address] [place] [address] Care Team Providers Care Front Desk Representative Name Role Phone Shilpa Frazier DO Primary Care Provider Lidia Barajas MD Unavailable Ab Melara MD Primary Care Provid er Encounter Details Date Type Department Care Team (Late st Contact Info) Description 06/15/2018 Telephone [facility] [address] [place] [address] Emil Clarke, RT Social History Tobacco Use Types Packs/Day Years Used Date Smoking Tobacco: Never Smokeless Tobacco: Never Alcohol Use Standard Drinks/Week Comments No 0 (1 standard drink = 0.6 oz pur e alcohol) Comments No Sex and Gender Information Value Date Recorded Sex Assigned at Not on file Legal Sex Female 11:49 PM DRY PAN OPERATOR Gender Identity Not on file Sexual [...] DT MRSA 12/27/2021 03/06/2022 09/02/2022 3:05 AM DRY PAN OPERATOR documented as of this encounter Care Teams Front Desk Representative Relationship Specialty Start Date End Date Frazier Shilpaolimpia Law DO PCP - General 06/12/18 07/15/21 Ab Melara MD [address] [address] PCP - General Family Medicine 07/16/21 Lidia Barajas MD Anesthesiologist Anesthesiology 01/13/20 documented as of this encounter
--- OUTSIDE RECORDS SUMMARY | 2025-03-20 13:02 | XMS_ITS | Encounter Summary ---
Author Organization [facility] Address [address] [place] [address] Care Team Providers Care Optical Lens Manufacturing Tech Name Role Phone Fiordaliza Snell MD Primary Care Provider Encounter Details Date Type Department Care Team (Late st Contact Info) Description 10/10/2003 Emergency [facility] Franki Grimes, DO [address] [place] [address] Er, Authorized P NO ADDRESS ON FILE LUMBAGO (Primary Dx) Social History Tobacco Use Types Packs/Day Years Used Date Smoking Tobacco: Never Assessed Comments Unknown Sex and Gender Information Value Date Recorded Sex Assigned at Not on file Legal Sex Female 2:43 AM GOLF COURSE STARTER Gender Identity Not on file Sexual Orientation Not on file documented as of this encounter Plan of Treatment Not on file documented as of this encounter Visit Diagnoses Diagnosis Lumbago- Primary documented in this encounter Additional Health Concerns Infection Onset Date Last Indicated Resolved Time R/O COVID-19 07/02/2020 07/02/2020 07/02/2020 8:53 PM GOLF COURSE STARTER MRSA Comment:Resolved per Type and Duration of Precautions Recommended for Selected Infections and Conditions document 2023 update 07/02/2020 07/02/2020 03/16/20 24 10:58 AM CDT R/O COVID-19 07/10/2020 07/10/2020 07/10/2020 5:01 PM GOLF COURSE STARTER documented as of this encounter Care Teams Optical Lens Manufacturing Tech Relationship Specialty Start Date End Date Fiordaliza Snell MD PCP - General Family Practice 09/09/22 documented as of this encounter
--- OUTSIDE RECORDS SUMMARY | 2025-03-20 13:02 | XMS_ITS | Encounter Summary ---
Author Organization [facility] Healthcare Address [address] [place] [address] Care Team Providers Care Biostatistics Director Name Role Phone Unknown, Notinfile Primary Care Provider Unavail able Shilpa Frazier DO Primary Care Provider Lidia Barajas MD Unavailable Ab Melara MD Primary Care Provid er Encounter Details Date Type Department Care Team (Late st Contact Info) Description 04/07/2018 Telephone [facility] [address] [facility] [address] [place] [address] Kate Johnson, RT Social History Tobacco Use Types Packs/Day Years Used Date Smoking Tobacco: Never Smokeless Tobacco: Never Alcohol Use Standard Drinks/Week Comments No 0 (1 standard drink = 0.6 oz pur e alcohol) Comments No Sex and Gender Information Value Date Recorded Sex Assigned at Not on file Legal Sex Female 11:49 PM CAR WASH MANAGER Gender Identity Not on file Sexual [...] DT MRSA 12/27/2021 03/06/2022 09/02/2022 3:05 AM CAR WASH MANAGER documented as of this encounter Care Teams Biostatistics Director Relationship Specialty Start Date End Date Unknown, Notinfile PCP - General 08/28/17 06/11/18 Shilpa Frazier DO PCP - General 06/12/18 07/15/21 Ab Melara MD [address] [address] PCP - General Family Medicine 07/16/21 Lidia Barajas MD Anesthesiologist Anesthesiology 01/13/20 documented as of this encounter
--- OUTSIDE RECORDS SUMMARY | 2025-03-20 13:02 | XMS_ITS | Clinical Summary ---
Author Organization [facility] Address [address] [place] [address] Care Team Providers Care Rock Wool Insulator Name Role Phone Unavailable Primary Care Provider [...] Comments Blood Pressure 152/77 05/21/2019 8:00 AM TRAFFIC ENGINEER Pulse 75 05/21/2019 8:00 AM TRAFFIC ENGINEER Temperature 36.3 C (97.3 F) 05/21/2019 8:00 AM TRAFFIC ENGINEER Respiratory Rate 18 05/21/2019 8:00 AM TRAFFIC ENGINEER Oxygen Saturation 98% 05/21/2019 8:00 AM TRAFFIC ENGINEER Inhaled Oxygen Concentration - - Weight 108.9 kg (240 lb 1.6 oz) 05/09/2019 6:52 AM TRAFFIC ENGINEER Height 172.7 cm (5' 8) 04/18/2019 12:2 [...]
--- OUTSIDE RECORDS SUMMARY | 2025-03-20 13:02 | XMS_ITS | Clinical Summary ---
Author Organization [facility] Address [address] [place] [address] Phone Care Team Providers Care Senior Javascript Engineer Name Role Phone Unavailable Primary Care Provider Unavailabl e Social History Tobacco Use Types Packs/Day Years Used Date Smoking Tobacco: Never Assessed Comments Unknown Sex and Gender Information Value Date Recorded Sex Assigned at Not on file Legal Sex Female 3:52 AM ADVERTISING ASSISTANT Gender Identity Not on file Sexual [...]
--- OUTSIDE RECORDS SUMMARY | 2025-03-20 13:03 | XMS_ITS | Encounter Summary ---
Author Organization [facility] Address [address] [place] [address] Care Team Providers Care Dope Sprayer Name Role Phone Fiordaliza Snell MD Primary [...] file Legal Sex Female 2:43 AM VEHICLE MONITOR TECHNICIAN Gender Identity Not on file Sexual Orientation Not on file documented as of this encounter Plan of Treatment Not on file documented as of this encounter Visit Diagnoses Diagnosis Metrorrhagia- Primary documented in this encounter Additional Health Concerns Infection Onset Date Last Indicated Resolved Time R/O COVID-19 07/02/2020 07/02/2020 07/02/2020 8:53 PM VEHICLE MONITOR TECHNICIAN MRSA Comment:Resolved per Type and Duration of Precautions Recommended for Selected Infections and Conditions document 2023 update 07/02/2020 07/02/2020 03/16/20 24 10:58 AM CDT R/O COVID-19 07/10/2020 07/10/2020 07/10/2020 5:01 PM VEHICLE MONITOR TECHNICIAN documented as of this encounter Care Teams Dope Sprayer Relationship Specialty Start Date End Date Fiordaliza Snell MD PCP - General Family Practice 09/09/22 documented as of this encounter
--- OUTSIDE RECORDS SUMMARY | 2025-03-20 13:03 | XMS_ITS | Encounter Summary ---
Author Organization [facility] Address [address] [place] [address] Care Team Providers Care Manager Data Name Role Phone Fiordaliza Snell MD Primary [...] on file Legal Sex Female 2:43 AM COLORIST DYER Gender Identity Not on file Sexual Orientation Not on file documented as of this encounter Plan of Treatment Not on file documented as of this encounter Visit Diagnoses Diagnosis Unspecified symptom associated with female genital organs- Primary documented in this encounter Additional Health Concerns Infection Onset Date Last Indicated Resolved Time R/O COVID-19 07/02/2020 07/02/2020 07/02/2020 8:53 PM COLORIST DYER MRSA Comment:Resolved per Type and Duration of Precautions Recommended for Selected Infections and Conditions document 2023 update 07/02/2020 07/02/2020 03/16/20 24 10:58 AM CDT R/O COVID-19 07/10/2020 07/10/2020 07/10/2020 5:01 PM COLORIST DYER documented as of this encounter Care Teams Manager Data Relationship Specialty Start Date End Date Fiordaliza Snell MD PCP - General Family Practice 09/09/22 documented as of this encounter
--- OUTSIDE RECORDS SUMMARY | 2025-03-20 13:03 | XMS_ITS | Encounter Summary ---
Author Organization [facility] Healthcare Address [address] [place] [address] Care Team Providers Care Glass Robot Operator Name Role Phone Shilpa Frazier DO Primary Care Provider Lidia Barajas MD Unavailable Ab Melara MD Primary Care Provid er Encounter Details Date Type Department Care Team (Late st Contact Info) Description 03/15/2019 Telephone [facility] - Interventional Radiology [address] [place] [address] Philly Aguirre RN Social History [...] on file Legal Sex Female 11:49 PM SCREEN REPAIRER CRUSHER Gender Identity Not on file Sexual Orientation [...] DT MRSA 12/27/2021 03/06/2022 09/02/2022 3:05 AM SCREEN REPAIRER CRUSHER documented as of this encounter Care Teams Glass Robot Operator Relationship Specialty Start Date End Date Shilpa Frazier DO PCP - General 06/12/18 07/15/21 Ab Melara MD [address] [address] PCP - General Family Medicine 07/16/21 Lidia Barajas MD Anesthesiologist Anesthesiology 01/13/20 documented as of this encounter
--- OUTSIDE RECORDS SUMMARY | 2025-03-20 13:03 | XMS_ITS | Patient Health Record ---
Author Organization [facility] Address [address] [place] [address] Care Team Providers Care Van Helper Name Role Phone Hayley Bautista Unavailable [phone] Reason For Referral No Information Medications Medication SIG (Take, Route, Frequency, Duration) Notes Start Date End Date Status Myrbetriq 50 MG Tablet Extended Release 24 Hour Oral Active Ondansetron 4 MG Tablet Disintegrating Oral Active Cefpodoxime Proxetil 200 MG Tablet Oral Active Dicyclomine HCl 10 MG Capsule Oral Active Nystatin-Triamcinolone 444443-9.1 UNIT/GM Cream External Active Pregabalin 100 MG Capsule Oral Active Acetaminophen Extra Strength 500 MG Tablet Oral Activ e Hydrocortisone 10 MG Tablet Oral Active rOPINIRole HCl 0.5 MG Tablet Oral Active SUMAtriptan Succinate 6 mg/0.5 mL Solution Subcutaneous Active rOPINIRole HCl 1 MG Tablet Oral Active SOLIFENACIN 10 MG TABLET *Reorder from [facility] for eRx and Interaction Alerts* Active Escitalopram Oxalate 20 MG Tablet Oral Active ALPRAZolam 0.25 MG Tablet Oral Active Phenazopyridine HCl 200 MG Tablet Oral Active HYDROcodone-Acetaminop hen 5-325 MG Tablet Oral Active Doxycycline Hyclate 100 MG Capsule Oral Active Cephalexin 500 MG Capsule Oral Active oxyCODONE HCl 10 MG Tablet Oral Active Furosemide 20 MG Tablet Oral Active Linezolid 600 MG Tablet Oral Active Pantoprazole Sodium 40 MG Tablet Delayed Release Oral Active Methocarbamol 500 MG Tablet Oral Active Methenamine Hippurate 1 GM Tablet Oral Active Atorvastatin Calcium 10 MG Tablet Oral Active Metoprolol Succinate ER 25 MG Tablet Extended Release 24 Hour Oral Active Gabapentin 300 MG Capsule Oral Active Diclofenac Sodium 1% Gel Transdermal Active OLANZapine 5 MG Tablet Oral Active Zolpidem Tartrate 5 MG Tablet Oral Active Naproxen 375 MG Tablet Oral Active Fluconazole 200 MG Tablet Oral Active Nystop 011681 UNIT/GM Powder External Active Ciprofloxacin HCl 500 MG Tablet Oral Active oxyCODONE HCl 5 MG Tablet Oral Active ADVANCED ANTACID 200-200-20 mg/5 mL Suspension Oral *Reorder from [facility] for eRx and Interaction Alerts* Active Cyclobenzaprine HCl 5 MG Tablet Oral Active predniSONE 10 MG Tablet Oral Active Losartan Potassium 100 MG Tablet Oral Active Aspirin Adult Low Strength 81 MG Tablet Delayed Release Oral Active Baclofen 10 MG Tablet Oral Active Social History Social History Additional Details Category Social Info Options Details Migrated Social History Migrated Social History Tobacco Years: Never smoker 02/24/2023 Plan Of Treatment No Information Insurance Providers Payer Name Payer Address Payer Phone Subscriber Number Group Number Insured Name Patient Relationship to Insured Coverage Start Date Coverage End Date [employer] Medicare Replacement/ Advantage - Ppo [address] [address] [place] [address] [id number] JJ MOYA Self - patient is the insured
--- OUTSIDE RECORDS SUMMARY | 2025-03-20 13:03 | XMS_ITS | Encounter Summary ---
Author Organization [facility] Address [address] [place] [address] Care Team Providers Care Women'S Studies Professor Name Role Phone Fiordaliza Snell MD [...] on file Legal Sex Female 2:43 AM APRN Gender Identity Not on file Sexual Orientation Not on file documented as of this encounter Plan of Treatment Not on file documented as of this encounter Visit Diagnoses Diagnosis Closed fracture of lateral malleolus- Primary documented in this encounter Additional Health Concerns Infection Onset Date Last Indicated Resolved Time R/O COVID-19 07/02/2020 07/02/2020 07/02/2020 8:53 PM APRN MRSA Comment:Resolved per Type and Duration of Precautions Recommended for Selected Infections and Conditions document 2023 update 07/02/2020 07/02/2020 03/16/20 10:58 AM CDT R/O COVID-19 07/10/2020 07/10/2020 07/10/2020 5:01 PM APRN documented as of this encounter Care Teams Women'S Studies Professor Relationship Specialty Start Date End Date Fiordaliza Snell MD PCP - General Family Practice 09/09/22 documented as of this encounter
--- OUTSIDE RECORDS SUMMARY | 2025-03-20 13:03 | XMS_ITS | Encounter Summary ---
Author Organization [facility] Address [address] [place] [address] Care Team Providers Care Poultry Eviscerator Name Role Phone Fiordaliza Snell MD Primary [...] on file Legal Sex Female 2:43 AM TOMATO PULPER OPERATOR Gender Identity Not on file Sexual Orientation Not on file documented as of this encounter Plan of Treatment Not on file documented as of this encounter Visit Diagnoses Diagnosis Abdominal pain, unspecified site- Primary documented in this encounter Additional Health Concerns Infection Onset Date Last Indicated Resolved Time R/O COVID-19 07/02/2020 07/02/2020 07/02/2020 8:53 PM TOMATO PULPER OPERATOR MRSA Comment:Resolved per Type and Duration of Precautions Recommended for Selected Infections and Conditions document 2023 update 07/02/2020 07/02/2020 03/16/20 24 10:58 AM CDT R/O COVID-19 07/10/2020 07/10/2020 07/10/2020 5:01 PM TOMATO PULPER OPERATOR documented as of this encounter Care Teams Poultry Eviscerator Relationship Specialty Start Date End Date Fiordaliza Snell MD PCP - General Family Practice 09/09/22 documented as of this encounter
--- OUTSIDE RECORDS SUMMARY | 2025-03-20 13:03 | XMS_ITS | Encounter Summary ---
Author Organization [facility] Address 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 Gender Identity Not on file Sexual Orientation Not on file documented as of this encounter Plan of Treatment Not on file documented as of this encounter Visit Diagnoses Diagnosis Excessive or frequent menstruation- Primary documented in this encounter Additional Health Concerns Infection Onset Date Last Indicated Resolved Time R/O COVID-19 07/02/2020 07/02/2020 07/02/2020 8:53 PM FLAME PLANER MRSA Comment:Resolved per Type and Duration of Precautions Recommended for Selected Infections and Conditions document 2023 update 07/02/2020 07/02/2020 03/16/20 24 10:58 AM CDT R/O COVID-19 07/10/2020 07/10/2020 07/10/2020 5:01 PM FLAME PLANER documented as of this encounter Care Teams Corporate Auditor Relationship Specialty Start Date End Date Fiordaliza Snell MD PCP - General Family Practice 09/09/22 documented as of this encounter
--- OUTSIDE RECORDS SUMMARY | 2025-03-20 13:03 | XMS_ITS | Patient Health Record ---
Author Organization [facility] [place] [facility] Address [address] [place] [address] Support Name Relationship Address Phone JJ MOYA Guarantor Unknown [phone] Allergies Allergen (clinical drug ingredient) Drug/Non Drug Allergy documented on EMR Reaction Allergy Type Onset Date Status lisinopril Lisinopril Unknown Drug Allergy Activ e Vicodin Unknown Drug Allergy Active penicillin Unknown Drug Allergy Active Reason For Referral No Information Medications Medication SIG (Take, Route, Frequency, Duration) Notes Start Date End Date Status Simvastatin 10 MG 1 tablet in the evening Orally Once a day Active hydroCHLOROthiazide 25MG TAKE 1 TABLET DAILY Active Losartan Potassium 25MG TAKE 1 TABLET DAILY ORALLY QD; Duration: 90 days Active Ambien 10 MG 1 tablet at bedtime Orally At Night as Needed for insomina; Duration: 30 days 03/22/2016 Active Xanax 0.25 MG 1 tablet Orally DAILY PRN; Duration: [address] ford 07/01/2014 Active Permethrin 5 % as directed Externally once; Duration: days pain medication 04/19/2015 Active traMADol HCl 50 MG 1 tablet as needed Orally tid dr. rivera Active Problems Problem Type SNOMED Code ICD Code Onset Dates Problem Status W/U Status Risk Notes Problem Hyperlipidemia (52257636) Hyperlipidemia, unspecified (E78.5) Active confirmed Diagnose d by lab results,stab le Problem Moderate recurrent major depression (75057289) Major depressive disorder, recurrent, moderate (F33.1) Active confirmed Problem Restless legs syndrome (92837825) Restless legs syndrome (G25.81) Active confirmed Problem Insomnia (107791362) Insomnia, unspecified (G47.00) Active confirmed Problem Chronic pain (48994796) Other chronic pain (G89.29) Active confirmed Diagnosed by history. Needs improvement Problem Essential hypertension (20561039) Essential (primary) hypertension (I10) Active confirmed Diagnosed by history. Stable on medication. 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 Stable on medication. Problem Cervicalgia (99149900) Cervicalgia (M54.2) Active confirmed Diagn osed by history. Stable on medication. Problem Sciatica (92683368) Lumbago with sciatica, right side (M54.41) Active confirmed Diagnosed by history. Needs improvement Problem Post-laminectomy syndrome (08662484) Postlaminectomy syndrome, not elsewhere classified (M96.1) Active confirmed Diagnosed by history. Needs improvement Problem Nausea (913899973) Nausea (R11.0) Active confirmed Diagnosed by history. Needs improvement Problem High risk drug monitoring status (600548017) FPC current use of opiate analgesic (Z79.891) Active confirmed Diagnose d by history. Stable on medication. Problem Body mass index 30.00 to 34.99 (873319886251484 ) Body mass index (BMI) 33.0-33.9, adult (Z68.33) Active confirmed Problem Opioid dependence (94673266) Uncomplicated opioid dependence (F11.20) Active confirmed Diagnosed by history. Stable on medication. Problem Lumbosacral spondylosis without myelopathy (86137175) Spondylosis of lumbar region without myelopathy or radiculopathy (M47.816) Active confirmed Diagnosed by history. Needs improvement Problem Sciatica (13496972) Sciatica of right side (M54.31) Active confirmed Diagnosed by history. Needs improvement Problem Neuritis of left ulnar nerve (012812865444264 00) Neuritis of left ulnar nerve (G56.22) Active confirmed Diagnosed by history. Resolved with surgical procedure Problem History of spinal fusion (71706821798181) History of spinal fusion (Z98.1) Active confirmed Diagnosed by history. 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 Stable on medication. 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 Stable on medication. Plan Of Treatment Pending Test Test Name Order Date MRI : Lumbar with and without Contrast 0 11/22/2016 Hemoglobin A1c 04/29/2017 Urinalysis, Routine 03/31/2015 Urinalysis, Routine 02/08/2014 CBC With Differential/Platelet 2013 CBC With Differential/Platelet 2014 CBC With Differential/Platelet 2016 Lipid Panel With LDL/HDL Ratio 5 Lipid Panel With LDL/HDL Ratio 4 Lipid Panel 12/03/2016 Lipid Panel 04/29/2017 Comp. Metabolic Panel (14) 04/29/2017 Comp. Metabolic Panel (14) 03/31/2015 Comp. Metabolic Panel (14) 02/08/2014 Medical (General) History Medical History History ICD Code Major depressive disorder, recurrent, mo derate F33.1 Essential (primary) hypertension I10 Insomnia, unspecified G47.00 Restless legs syndrome G25.81 Other polyosteoarthritis M15.8 Hyperlipidemia, unspecified E78.5 Hyperlipidemia, unspecified History of spinal fusion Uncomplicated opioid dependence salvage determiner current use of opiate analgesi c Cervicalgia Inflammatory spondylopathy of cervical r egion Cervicobrachial syndrome Spondylosis of lumbar region without mye lopathy or radiculopathy Postlaminectomy syndrome, not elsewhere classified Lumbago with sciatica, right side Surgical History Surgery Date(Month/Year) back surgery done by Dr. Jing Lozano 2003 Spinal cord stimulator- implantation October 31, 2016 Spinal cord stimulator removal November 06, 2 017 Hospitalization History Reason Date(Month/Year) Back pain/ Nerve pain admiss [facility] and transferred to [facility] October 2016 Back/ nerve pain [place] September 2015
--- OUTSIDE RECORDS SUMMARY | 2025-03-20 13:03 | XMS_ITS | Encounter Summary ---
Author Organization [facility] Address 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
--- OUTSIDE RECORDS SUMMARY | 2025-03-20 13:03 | XMS_ITS | Encounter Summary ---
Author Organization [facility] Address [address] [place] [address] Care Team Providers Care C Architect Name Role Phone Fiordaliza Snell MD [...] on file Legal Sex Female 2:43 AM MFTS Gender Identity Not on file Sexual Orientation Not on file documented as of this encounter Plan of Treatment Not on file documented as of this encounter Visit Diagnoses Diagnosis Unspecified symptom associated with female genital organs- Primary documented in this encounter Additional Health Concerns Infection Onset Date Last Indicated Resolved Time R/O COVID-19 07/02/2020 07/02/2020 07/02/2020 8:53 PM MFTS MRSA Comment:Resolved per Type and Duration of Precautions Recommended for Selected Infections and Conditions document 2023 update 07/02/2020 07/02/2020 03/16/20 24 10:58 AM CDT R/O COVID-19 07/10/2020 07/10/2020 07/10/2020 5:01 PM MFTS documented as of this encounter Care Teams C Architect Relationship Specialty Start Date End Date Fiordaliza Snell MD PCP - General Family Practice 09/09/22 documented as of this encounter
--- OUTSIDE RECORDS SUMMARY | 2025-03-20 13:03 | XMS_ITS | Encounter Summary ---
Author Organization [facility] Address [address] [place] [address] Care Team Providers Care Market Risk Manager Name Role Phone Fiordaliza Snell MD [...] file Legal Sex Female 2:43 AM MANAGER CARD Gender Identity Not on file Sexual Orientation Not on file documented as of this encounter Plan of Treatment Not on file documented as of this encounter Visit Diagnoses Diagnosis Pelvic peritoneal adhesions, female (postoperative) (postinfection)- Primary documented in this encounter Additional Health Concerns Infection Onset Date Last Indicated Resolved Time R/O COVID-19 07/02/2020 07/02/2020 07/02/2020 8:53 PM MANAGER CARD MRSA Comment:Resolved per Type and Duration of Precautions Recommended for Selected Infections and Conditions document 2023 update 07/02/2020 07/02/2020 03/16/20 24 10:58 AM CDT R/O COVID-19 07/10/2020 07/10/2020 07/10/2020 5:01 PM MANAGER CARD documented as of this encounter Care Teams Market Risk Manager Relationship Specialty Start Date End Date Fiordaliza Snell MD PCP - General Family Practice 09/09/22 documented as of this encounter
--- OUTSIDE RECORDS SUMMARY | 2025-03-20 13:03 | XMS_ITS | Encounter Summary ---
Author Organization [facility] Address 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 Gender Identity Not on file Sexual Orientation Not on file documented as of this encounter Plan of Treatment Not on file documented as of this encounter Visit Diagnoses Diagnosis Lumbago- Primary documented in this encounter Additional Health Concerns Infection Onset Date Last Indicated Resolved Time R/O COVID-19 07/02/2020 07/02/2020 07/02/2020 8:53 PM INTERIOR BLOCK WIRER MRSA Comment:Resolved per Type and Duration of Precautions Recommended for Selected Infections and Conditions document 2023 update 07/02/2020 07/02/2020 03/16/20 24 10:58 AM CDT R/O COVID-19 07/10/2020 07/10/2020 07/10/2020 5:01 PM INTERIOR BLOCK WIRER documented as of this encounter Care Teams Crisis Intervention Counselor Relationship Specialty Start Date End Date Fiordaliza Snell MD PCP - General Family Practice 09/09/22 documented as of this encounter
--- OUTSIDE RECORDS SUMMARY | 2025-03-20 13:03 | XMS_ITS | Encounter Summary ---
Author Organization [facility] Healthcare Address [address] [place] [address] Care Team Providers Care Product Support Analyst Name Role Phone Shilpa Fraziermeera PEREZ Primary Care Provider Lidia Barajas MD Unavailable Ab Melara MD Primary Care Provid er Reason for Visit * Reason Onset Date Comments PRECALL ANTICOAG 02/18/2020 Encounter Details Date Type Department Care Team (Late st Contact Info) Description 02/18/2020 Telephone [facility] [address] [place] [address] Tori Arias RN PRECALL ANTICO Social History Tobacco Use Types Packs/Day [...] on file Legal Sex 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
--- OUTSIDE RECORDS SUMMARY | 2025-03-20 13:03 | XMS_ITS | Encounter Summary ---
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
--- NOTE | 2025-03-20 13:53 | ED_ITS ---
HPI - General Adult General Chief complaint: Urogenital-Female Stated complaint: UTI? Time Seen by Provider: 03/20/25 13:52 Source: patient History of Present Illness HPI narrative: 59 years old white female came to the ED by private car complaining of not feeling well for 1 week, pain at the urostomy and the left lower abdomen associated with hot sweats, chills and nausea. History of paraplegia, urostomy 2 years ago at [facility]. Related Data Home Medications ?Medication ?Instructions ?Recorded ?Confirmed ?Last Taken ?Type ropinirole 0.5 mg tablet 1 mg PO BID 12/13/24 5 01/30/25 20:00 History 1 mg losartan 100 mg tablet 100 mg PO HS 02/01/2501/30/25 21:00 History 100 mg polyethylene glycol 3350 17 17 g PO DAILY PRN constipa tion 02/01/25 02/01/25 Unknown History gram/dose oral powder (Miralax) Allergies Allergy/AdvReac Type Severity Reaction Status Date / Time Penicillins Allergy Intermediate Hives Verified 03/20/25 13:00 Sulfa (Sulfonamide Allergy Intermediate Swelling Verified 03/20/25 13:00 Antibiotics) of Lip/Tongue/Throat vancomycin Allergy Intermediate Hives Verified 03/20/25 13:00 adhesive tape Allergy Mild Blister Verified 03/20/25 13:00 Latex, Natural Rubber Allergy Mild Itching Verified 03/20/25 13:00 Review of Systems 2 Review of Systems: All systems reviewed & are unremarkable except as noted in HPI and below PMFSH Past Medical History Medical History Brain TIA multiple BMI 33.0-33.9,adult Insomnia Paroxysmal atrial fibrillation Gastroesophageal reflux disease Hyperlipidemia patient states previously but recently reported as controlled Post traumatic stress disorder Degenerative disc disease Incomplete paraplegia Sleep apnea History of MRSA infection Depression Anemia Fibromyalgia Scoliosis Arthritis Irritable bowel Hemorrhoids Asthma Anxiety Obesity (BMI 30-39.9) Stroke Hypertension Allergies Surgical History Surgical History History of tonsillectomy History of total cystectomy History of hernia repair History of cholecystectomy History of appendectomy History of cardiac catheterization History of ileal conduit History of back surgery Family History Family History Father Hypertension Cancer Mother Cancer Hypertension Anxiety Acute myocardial infarction <65yo Grandparent Cancer Sibling Hypertension A-fib Acute myocardial infarction <65yo Sibling Acute myocardial infarction <65yo Social History Social History Social History: Surrogate medical decision maker: Vicenta Mcnulty. Code status: Full code. Smoking status: Never smoker Second hand tobacco smoke exposure: Yes Alcohol intake: never Substance use: never Substance use type: does not use Do You Feel Safe in your Home?: Yes Lack of Transportation: No Lack of Food: Never True Current Housing: I Have Housing Concerned About Future Housing: No Difficulty Paying Gas/Electric Bills: No Difficulty Paying for Meds: No Currently Unemployed: No Education: High School Diploma/GED Difficulty w/ Childcare or Family Care: No Living arrangements: with family Occupation/Education: unemployed Gender identity (if verbalized by the patient): Female Spiritual care concerns: No Exam 2 Narrative: General appearance: Well-developed, well-nourished Skin: Normal color Head: Normocephalic, nontraumatic Eyes: Clear conjunctiva ENT: Oropharynx normal, ears normal, nose normal Neck: Supple, nontender Chest and respiratory: Airway patent, no respiratory distress, no accessory muscle use Heart: Regular rate/rhythm Abdomen: Soft, diffuse tenderness left lower abdomen, urostomy bag in place, no organomegaly, quiet bowel sounds Vascular: Normal peripheral pulses, normal capillary refill. Musculoskeletal: Normal range of motion, nontender back Neurologic: Alert and oriented ?3, paraplegic Course Vital Signs Vital signs: Vital Signs Temperature 36.6 C 03/20/25 13:05 Pulse Rate 74 03/20/25 13:05 Respiratory Rate 18 03/20/25 13:05 Blood Pressure 144/94 H 03/20/25 13:05 Pulse Oximetry 96 03/20/25 13:05 Oxygen Delivery Room Air 03/20/25 13:05 Temperature 36.6 C 03/20/25 13:05 Pulse Rate 86 03/20/25 16:23 Respiratory Rate 20 03/20/25 16:23 Blood Pressure 156/92 H 03/20/25 16:23 Pulse Oximetry 100 03/20/25 16:23 Oxygen Delivery Room Air 03/20/25 13:33 Medical Decision Making MDM Narrative Medical decision making narrative: Patient came with left abdominal pain Vital signs are stable Physical examination consistent with diffuse tenderness left abdomen mainly around the urostomy Differential diagnosis: Urinary tract infection, diverticulitis, colitis, constipation, kidney stone, pancreatitis Blood workup today includes CBC, CMP, lipase showed insignificant abnormalities Urinalysis showed evidence of infection CT abdomen and pelvis with IV contrast showed no significant abnormality Diagnosis urinary tract infection, failed outpatient treatment, pancreatic lesion Admit to hospitalist Vital Signs Vital Signs: Vital Signs Temperature 36.6 C 03/20/25 13:05 Pulse Rate 74 03/20/25 13:05 Respiratory Rate 18 03/20/25 13:05 Blood Pressure 144/94 H 03/20/25 13:05 Pulse Oximetry 96 03/20/25 13:05 Oxygen Delivery Room Air 03/20/25 13:05 Temperature 36.6 C 03/20/25 13:05 Pulse Rate 86 03/20/25 16:23 Respiratory Rate 20 03/20/25 16:23 Blood Pressure 156/92 H 03/20/25 16:23 Pulse Oximetry 100 03/20/25 16:23 Oxygen Delivery Room Air 03/20/25 13:33 Lab Data 03/20/25 14:21 03/20/25 14:21 Labs: Lab Results 03/20/25 03/20/25 Range/Units 14:21 14:42 WBC 8.3 (4.5-10.0) K/mm3 RBC 5.03 (4.2-5.4) M/mm3 Hgb 13.9 (12.0-15.0) g/dL Hct 41.6 (37.0-47.0) % MCV 82.7 (80-100) fl MCH 27.6 (26-34) pg MCHC 33.4 (32-36) g/dl RDW 13.9 (11.5-14.5) % Plt Count 192 (150-375) k/mm3 MPV 9.6 (7.4-10.4) fl Immature Gran % (Auto) 0.5 (0-0.5) % Neut % (Auto) 58.5 (45.5-73.1) % Lymph % (Auto) 31.6 (18.3-44.2) % [place] % (Auto) 7.0 (2.6-8.5) % Eos % (Auto) 1.7 (0-4.4) % Baso % (Auto) 0.7 (0.2-1.2) % Lymph # (Auto) 2.63 (0.9-3.2) K/mm3 [place] # (Auto) 0.6 (0.1-0.6) K/mm3 Eos # (Auto) 0.1 (0-0.3) K/mm3 Baso # (Auto) 0.1 (0.0-0.1) K/mm3 Abs Immat Gran (auto) 0.04 H (0.00-0.031) K/mm3 Absolute Neuts (auto) 4.9 (1.3-6.7) K/mm3 Absolute Nucleated RBC 0.000 (0.0-0.012) K/mm3 Nucleated RBC % 0.0 (0.0-0.2) % Sodium 140 (137-145) mmol/L Potassium 4.0 (3.4-5.0) mmol/L Chloride 102 (98-107) mmol/L Carbon Dioxide 30 (22-30) mmol/L Anion Gap 8 (4-12) mmol/L BUN 17 (7-17) mg/dL Creatinine 0.53 L (0.7-1.0) mg/dL Estim Creat Clear Calc 120 ml/min Estimated GFR > 60 (59 - ) Glucose 98 (65-110) mg/dL Lactic Acid 1.1 (0.7-2.0) mmol/L Calcium 8.7 (8.4-10.2) mg/dL Total Bilirubin 0.7 (0.2-1.3) mg/dL AST 28 (14-36) U/L ALT 25 (6-35) U/L Alkaline Phosphatase 85 (38-126) U/L Total Protein 8.0 (6.3-8.2) g/dL Albumin 4.3 (3.5-5.1) g/dL Urine Color Yellow (Yellow) Urine Appearance Cloudy H (Clear) Urine pH 7.0 (5.0-9.0) Ur Specific [place] 1.012 (1.001-1.035) Urine Protein Negative (Negative) mg/dL Urine Glucose (UA) Negative (Negative) mg/dL Urine Ketones Negative (Negative) mg/dL Ur Blood (Man) 1+ H (Negative) Urine Nitrate Positive H (Negative) Urine Bilirubin Negative (Negative) Urine Urobilinogen 0.2 (<2.0) mg/dL Add Ur Microanalysis Reviewed Leukocyte Esterase Rfl 2+ H (Negative) ERICK/UL Urine RBC 6-10 H (0-2) /hpf Urine WBC 21-50 H (0-3) /hpf Ur Squamous Epith Cells Occasional (Few) /hpf Urine Bacteria 4+ H /hpf Urine Casts 3-5 Imaging Data Radiologist's impression: Impressions Abdomen/Pelvis CT 03/20/25 15:20 IMPRESSION: 1. No acute intra-abdominal process. 2. Pancreatic lesion, contrast-enhanced MRI recommended. Incidental findings detailed above. Discharge Plan Discharge Clinical Impression: Urinary tract infection, Lesion of pancreas Patient Disposition: Still a Patient Condition: Stable Patient Language: Kazakh Prescriptions: No Action ibuprofen 600 mg tablet 600 mg PO TID PRN (Reason: pain) Qty: 30 0RF ropinirole 0.5 mg tablet 1 mg PO BID Patient Comments: takes at 1700 and 2100 polyethylene glycol 3350 [Miralax] 17 gram/dose powder 17 g PO DAILY PRN (Reason: constipation) losartan 100 mg tablet 100 mg PO HS cefdinir 300 mg capsule 300 mg PO Q12H 10 Days Qty: 20 0RF diclofenac sodium [Voltaren Arthritis Pain] 1 % gel 2 g topical QID Qty: 100 1RF Rx Instructions: apply to single elbow, wrist or hand; for hand includes palm/fingers/back of hand alprazolam 0.25 mg tablet 0.25 mg PO TID PRN (Reason: anxiety) Qty: 60 0RF olanzapine 5 mg tablet 5 mg PO DAILY Qty: 30 0RF zolpidem [Ambien] 5 mg tablet 5 mg PO QHS Qty: 30 0RF atorvastatin 10 mg tablet 10 mg PO DAILY Qty: 90 1RF aspirin [Adult Low Dose Aspirin] 81 mg tablet,delayed release (DR/EC) 81 mg PO DAILY Qty: 90 2RF ondansetron 4 mg tablet,disintegrating 4 mg PO Q8H PRN (Reason: nausea and vomiting) Qty: 20 0RF Ozempic 0.25 mg or 0.5 mg (2 mg/3 mL) pen injector 0.25 mg subcut WEEKLY Qty: 6 0RF hydrocodone-acetaminophen 7.5-325 mg tablet 1 tablet PO Q8H PRN (Reason: pain) Qty: 30 0RF levofloxacin 500 mg tablet 500 mg PO DAILY Qty: 7 0RF cyclobenzaprine 10 mg tablet 10 mg PO TID Qty: 60 0RF furosemide 20 mg tablet See Rx Instructions .ROUTE .COMPLEX Qty: 90 2RF Dose Instruction: 20 MG ORALLY EVERY MORNING Rx Instructions: 20 MG ORALLY EVERY MORNING metoprolol succinate 25 mg tablet extended release 24 hr 25 mg PO DAILY Qty: 90 2RF Follow-up/Referrals: Panchito Walters DO [Primary Care Provider, Internal Medicine]
[2025-03-20] MEDS: HYDROmorphone HCL INJ (*CRX) 1 MG/ML SYR 0.5 MG IV PUSH ×2 (14:32→16:41)
[2025-03-20] MEDS: SODIUM CHLORIDE 0.9% IV 1,000 ML 999 ML IV CONT (14:33)
[2025-03-20] MEDS: ONDANSETRON INJ 4 MG/2 ML VIAL IV PUSH ×2 (14:33→16:40)
[2025-03-20 14:38] LABS: Hematocrit 41.6 % (37.0-47.0); Hemoglobin 13.9 g/dL (12.0-15.0); Immature Granulocyte Percent A 0.5 % (0-0.5); Lymphocytes Absolute Auto 2.63 K/mm3 (0.9-3.2); Mean Corpuscular HGB Conc 33.4 g/dl (32-36); Mean Corpuscular Hemoglobin 27.6 pg (26-34); Mean Corpuscular Volume 82.7 fl (80-100); Nucleated Red Blood Cells Absolute Auto 0.000 K/mm3 (0.0-0.012); Nucleated Red Blood Cells Perc 0.0 % (0.0-0.2); Platelet Count Result 192 k/mm3 (150-375); Red Blood Count 5.03 M/mm3 (4.2-5.4); White Blood Count 8.3 K/mm3 (4.5-10.0)
[2025-03-20 14:43] LABS: Alanine Aminotransferase 25 U/L (6-35); Albumin Level 4.3 g/dL (3.5-5.1); Alkaline Phosphatase 85 U/L (38-126); Anion Gap 8 mmol/L (4-12); Aspartate Amino Transferase 28 U/L (14-36); Bilirubin,Total 0.7 mg/dL (0.2-1.3); Blood Urea Nitrogen 17 mg/dL (7-17); Calcium 8.7 mg/dL (8.4-10.2); Carbon Dioxide 30 mmol/L (22-30); Chloride 102 mmol/L (98-107); Estimated CRCL calculation 120 ml/min; Estimated Glomerular Filt Rate > 60; Glucose 98 mg/dL (65-110); Potassium 4.0 mmol/L (3.4-5.0); Sodium 140 mmol/L (137-145); Total Protein 8.0 g/dL (6.3-8.2)
[2025-03-20 14:58] LABS: Add Urine Microscopic? YES; Appearance Urine Cloudy (Clear); Glucose Urine UA Negative (Negative); Leukocyte Esterase Ur 2+ LEU/UL (Negative); Need Manual Microscopic Reviewed; Nitrate Urine Positive (Negative); Specific Grav Ur 1.012 (1.001-1.035)
[2025-03-20] MEDS: cefTRIAXone 1 GM in SODIUM CHLORIDE 0.9% IV 50 ML 100 ML IVPB (15:43)
--- NOTE | 2025-03-20 19:27 | ADMGEN ---
This patient, Angelina Mcnulty, was admitted to 2 Medical Room 247-. Patient/family oriented to hospital policies and general routines including ID bracelet, bed and alarms, visiting hours, pain management, procedures, bathroom and other care routines, personal items, smoking policy, room service/diet, and visiting hours. Information on how to activate the Rapid Response Team has been discussed. Patient/Family are encouraged to report perceived risks to care and to ask questions if they do not understand what they are told or what they should do.
--- NOTE | 2025-03-20 19:28 | PM.IMHP ---
H&P: HPI History of Present Illness Date/Time: 03/20/25 19:28 Chief Complaint: Weakness/UTI Narrative: 59 yo female with PMHx: of HTN, Afib and CHF, paraplegic with urostomy who presented to the ER on account of suprapubic pain, describing it as sharp and accompanied by a sewage-like odor. The patient reported experiencing this pain for four to five days, along with a lack of energy. The patient had been prescribed an antibiotic, started by Dr. Abernathy in an attempt to avoid hospitalization. The patient reported having had positive blood cultures in the past and experiencing symptoms such as fevers, chills, nausea, and vomiting. The patient was paralyzed from the waist down due to a nerve being nicked during a procedure six years ago. During a subsequent suprapubic procedure, it was discovered that the bladder had also been nicked, leading to its removal on the advice of Dr. Qureshi to prevent bladder cancer. A recent CT scan indicated an incidental finding of pancreatic lesion. ED workup reveals: Patient with left abdominal pain, vital signs stable, physical exam was consistent with diffuse tenderness left abdomen mainly around the urostomy urine positive 2+ leukocytes Estrace, urine RBC 6-10, urine WBC 20 1-50, urine bacteria 4+ Review of Systems Review of Systems: All systems reviewed & are unremarkable except as noted in HPI and below PMFSH Past Medical History Medical History Brain TIA multiple BMI 33.0-33.9,adult Insomnia Paroxysmal atrial fibrillation Gastroesophageal reflux disease Hyperlipidemia patient states previously but recently reported as controlled Post traumatic stress disorder Degenerative disc disease Incomplete paraplegia Sleep apnea History of MRSA infection Depression Anemia Fibromyalgia Scoliosis Arthritis Irritable bowel Hemorrhoids Asthma Anxiety Obesity (BMI 30-39.9) Stroke Hypertension Allergies Surgical History Surgical History History of tonsillectomy History of total cystectomy History of hernia repair History of cholecystectomy History of appendectomy History of cardiac catheterization History of ileal conduit History of back surgery Family History Family History Father Hypertension Cancer Mother Cancer Hypertension Anxiety Acute myocardial infarction <65yo Grandparent Cancer Sibling Hypertension A-fib Acute myocardial infarction <65yo Sibling Acute myocardial infarction <65yo Social History Social History Social History: Surrogate medical decision maker: Vicenta Mcnulty. Code status: Full code. Smoking status: Never smoker Second hand tobacco smoke exposure: Yes Alcohol intake: never Substance use: never Substance use type: does not use Do You Feel Safe in your Home?: Yes Lack of Transportation: No Lack of Food: Never True Current Housing: I Have Housing Concerned About Future Housing: No Difficulty Paying Gas/Electric Bills: No Difficulty Paying for Meds: No Currently Unemployed: No Education: High School Diploma/GED Difficulty w/ Childcare or Family Care: No Living arrangements: with family Occupation/Education: unemployed Gender identity (if verbalized by the patient): Female Spiritual care concerns: No Meds Home Medications and Allergies Home Medications ?Medication ?Instructions ?Recorded ?Confirmed ?Type alprazolam 0.25 mg tablet 0.25 mg PO TID PRN anxiety #60 tabs 02/17/23 03/20/25 Rx diclofenac sodium 1 % topical gel 2 g topical QID #100 grams 02/17/23 03/20/25 Rx (Voltaren Arthritis Pain) olanzapine 5 mg tablet 5 mg PO DAILY #30 tabs 02/17/23 03/20/25 Rx zolpidem 5 mg tablet (Ambien) 5 mg PO QHS #30 tabs 02/17/23 03/20/25 Rx atorvastatin 10 mg tablet 10 mg PO DAILY #90 tabs 08/22/23 03/20/25 Rx aspirin 81 mg tablet,delayed 81 mg PO DAILY #90 tabs 04/15/24 03/20/25 Rx release (Adult Low Dose Aspirin) ondansetron 4 mg disintegrating 4 mg PO Q8H PRN nausea and 05/11/24 03/20/25 Rx tablet vomiting #20 tabs ibuprofen 600 mg tablet 600 mg PO TID PRN pain #30 tabs 11/29/24 03/20/25 Rx ropinirole 0.5 mg tablet 1 mg PO BID 12/13/24 03/20/25 History losartan 100 mg tablet 100 mg PO HS 02/01/25 03/20/25 History polyethylene glycol 3350 17 17 g PO DAILY PRN constipation 02/01/25 03/20/25 History gram/dose oral powder (Miralax) hydrocodone 7.5 mg-acetaminophen 1 tablet PO Q8H PRN pain #30 tabs 03/04/25 03/20/25 Rx 325 mg tablet cyclobenzaprine 10 mg tablet 10 mg PO TID #60 tabs 03/07/25 03/20/25 Rx furosemide 20 mg tablet See Rx Instructions .Route 03/07/25 03/20/25 Rx .COMPLEX #90 tabs metoprolol succinate 25 mg 25 mg PO DAILY #90 tabs 03/07/25 03/20/25 Rx tablet,extended release 24 hr escitalopram oxalate 20 mg tablet 20 mg PO HS 03/20/25 03/20/25 History Allergies Allergy/AdvReac Type Severity Reaction Status Date / Time Penicillins Allergy Intermediate Hives Verified 03/20/25 13:00 Sulfa (Sulfonamide Allergy Intermediate Swelling Verified 03/20/25 13:00 Antibiotics) of Lip/Tongue/Throat vancomycin Allergy Intermediate Hives Verified 03/20/25 13:00 adhesive tape Allergy Mild Blister Verified 03/20/25 13:00 Latex, Natural Rubber Allergy Mild Itching Verified 03/20/25 13:00 Vital Signs Vital Signs - 24 hr 03/20/25 13:05 03/20/25 13:33 03/20/25 14:14 Temperature 97.8 F Pulse Rate 74 72 Respiratory Rate 18 20 Blood Pressure 144/94 H 161/130 H Pulse Oximetry 96 98 99 Oxygen Delivery Room Air Room Air 03/20/25 14:19 03/20/25 15:29 03/20/25 15:30 Temperature Pulse Rate 78 Respiratory Rate 20 Blood Pressure Pulse Oximetry 97 96 96 Oxygen Delivery 03/20/25 16:23 Temperature Pulse Rate 86 Respiratory Rate 20 Blood Pressure 156/92 H Pulse Oximetry 100 Oxygen Delivery Exam Narrative: General appearance: Well-developed, well-nourished Skin: Normal color Head: Normocephalic, nontraumatic Eyes: Clear conjunctiva ENT: Oropharynx normal, ears normal, nose normal Neck: Supple, nontender Chest and respiratory: Airway patent, no respiratory distress, no accessory muscle use Heart: Regular rate/rhythm Abdomen: Soft, diffuse tenderness left lower abdomen, urostomy bag in place, no organomegaly, quiet bowel sounds Vascular: Normal peripheral pulses, normal capillary refill. Musculoskeletal: Normal range of motion, nontender back Neurologic: Alert and oriented ?3, paraplegic H&P: Results Labs Labs: Short CBC 03/20/25 Range/Units 14:21 WBC 8.3 (4.5-10.0) K/mm3 Hgb 13.9 (12.0-15.0) g/dL Hct 41.6 (37.0-47.0) % Plt Count 192 (150-375) k/mm3 BMP 03/20/25 14:21 Sodium 140 Potassium 4.0 Chloride 102 Carbon Dioxide 30 BUN 17 Creatinine 0.53 L Glucose 98 Calcium 8.7 Liver Function 03/20/25 Range/Units 14:21 Total Bilirubin 0.7 (0.2-1.3) mg/dL AST 28 (14-36) U/L ALT 25 (6-35) U/L Alkaline Phosphatase 85 (38-126) U/L Albumin 4.3 (3.5-5.1) g/dL Urine 03/20/25 Range/Units 14:42 Urine Color Yellow (Yellow) Urine Appearance Cloudy H (Clear) Urine pH 7.0 (5.0-9.0) Ur Specific [place] 1.012 (1.001-1.035) Urine Protein Negative (Negative) mg/dL Urine Glucose (UA) Negative (Negative) mg/dL Pulse Oximetry Attestation: I personally reviewed and interpreted this pulse oximetry as follows: Imaging CT scan - abdomen: Radiologist's impression: IMPRESSION: 1. No acute intra-abdominal process. 2. Pancreatic lesion, contrast-enhanced MRI recommended. Incidental findings detailed above. Assessment and Plan Assessment and plan (1) Urinary tract infection: Qualifiers: Hematuria presence: without hematuria Urinary tract infection type: acute cystitis Qualified Code(s): N30.00 - Acute cystitis without hematuria Code(s): N39.0 - Urinary tract infection, site not specified Status: Acute Assessment and Plan: -UA reveals positive nitrates, leukocyte esterase 2+, urine RBC 6-10, urine WBC 20 1-50, urine bacteria 4+ --continue ceftriaxone 1 g IV PBQ 20 4 hours -urine cultures pending -change urostomy bag (2) Pancreatic lesion: Code(s): K86.9 - Disease of pancreas, unspecified Status: Acute Assessment and Plan: As evidence by abdominal CT -consider follow up with GI in the am -CT scan suggest contrast-enhanced MRI recommended (3) Depression with anxiety: Code(s): F41.8 - Other specified anxiety disorders Status: Acute Assessment and Plan: -continue home medication p.r.n. as needed for anxiety (4) Hypertension: Qualifiers: Hypertension type: primary hypertension Qualified Code(s): I10 - Essential (primary) hypertension Code(s): I10 - Essential (primary) hypertension Status: Chronic Assessment and Plan: Chronic-continue home medication Plan Continue home medications: VTE Prophylaxis: SCDs DIET: Heart healthy Anticipated hospital stay: > 2 days Code Status: Full code Hospitalist MIPS Advance Care Plan I have confirmed that the patient's Advanced Care Plan is present, code status is documented, or surrogate decision maker is listed in patient medical record.: Yes Medication Reconciliation I have utilized all available resources to obtain, update and review the patients current medications (includes all prescriptions, OTC, herbals, cannabis, and nutritional supplements).: Yes
[2025-03-20] MEDS: ESCITALOPRAM OXALATE 10 MG TABLET 20 MG PO (20:27)
[2025-03-20] MEDS: DICLOFENAC SODIUM 1% 100 GM GEL (*BKC) 1 APPLIC TOPICAL (20:27)
[2025-03-20] MEDS: HYDROcodone/acetaminophen (*CRX) 7.5-325 MG TABLET 1 TAB PO (20:30)
[2025-03-20] MEDS: SODIUM CHLORIDE 0.9% IV 1,000 ML 125 ML IV CONT (20:31)
[2025-03-20] MEDS: MORPHINE SULFATE (*CRX) 2 MG/ML INJ IV PUSH (23:13)
[2025-03-21] VITALS (9 sets, daily range): BP systolic 128–151; BP diastolic 64–85; PULSE 73–91; RESP 16–18; TEMP 36.1–36.7; O2SAT 95–98
[2025-03-21] MEDS: MORPHINE SULFATE (*CRX) 2 MG/ML INJ IV PUSH (03:29)
[2025-03-21 05:06] LABS: Hematocrit 36.3 % (37.0-47.0); Hemoglobin 11.8 g/dL (12.0-15.0); Immature Granulocyte Percent A 0.8 % (0-0.5); Lymphocytes Absolute Auto 1.92 K/mm3 (0.9-3.2); Mean Corpuscular HGB Conc 32.5 g/dl (32-36); Mean Corpuscular Hemoglobin 27.8 pg (26-34); Mean Corpuscular Volume 85.4 fl (80-100); Nucleated Red Blood Cells Absolute Auto 0.000 K/mm3 (0.0-0.012); Nucleated Red Blood Cells Perc 0.0 % (0.0-0.2); Platelet Count Result 185 k/mm3 (150-375); Red Blood Count 4.25 M/mm3 (4.2-5.4); White Blood Count 6.5 K/mm3 (4.5-10.0)
[2025-03-21 05:33] LABS: Alanine Aminotransferase 20 U/L (6-35); Albumin Level 3.4 g/dL (3.5-5.1); Alkaline Phosphatase 87 U/L (38-126); Anion Gap 5 mmol/L (4-12); Aspartate Amino Transferase 20 U/L (14-36); Bilirubin,Total 0.4 mg/dL (0.2-1.3); Blood Urea Nitrogen 14 mg/dL (7-17); Calcium 7.8 mg/dL (8.4-10.2); Carbon Dioxide 28 mmol/L (22-30); Chloride 104 mmol/L (98-107); Estimated CRCL calculation 113 ml/min; Estimated Glomerular Filt Rate > 60; Glucose 95 mg/dL (65-110); Potassium 3.6 mmol/L (3.4-5.0); Sodium 137 mmol/L (137-145); Total Protein 6.4 g/dL (6.3-8.2)
--- NOTE | 2025-03-21 06:41 | P.PNIM_ITS ---
Progress Note: A&P Assessment and Plan (1) Urinary tract infection: Qualifiers: Hematuria presence: without hematuria Urinary tract infection type: acute cystitis Qualified Code(s): N30.00 - Acute cystitis without hematuria Code(s): N39.0 - Urinary tract infection, site not specified Status: Acute Assessment and Plan: - History of urostomy (2 years ago performed at [facility]) Changes the bag herself, plan to change today 03/21 - UA: Cloudy appearance with 1+ blood, positive nitrates, 2+ leukocytes, 6-10 RBC, 21-50 WBC, and 4+ bacteria. - UC obtained on 03/20: Pending -blood cultures obtained on 03/20: Pending - previous micro reviewed 12/13/2024: Klebsiella oxytoca pansensitive 10/18/2024: Klebsiella oxytoca pansensitive and enterococcus resistant to ampicillin and Macrobid - started on rocephin on 03/20 Discussed patient with [facility], will hold on entercoccus coverage pending urine culture results (2) Pancreatic lesion: Code(s): K86.9 - Disease of pancreas, unspecified Status: Acute Assessment and Plan: Paternal history of pancreatic cancer CT abdomen/pelvis: pancreatic tail there is a cystic lesion 1 x 1 cm Previously seen on 03/20/23: Couple cystic lesions at the tail of the pancreas the larger measuring 1.2 cm. Redemonstrated several times throughout the years with the most recent on 01/31/2025: Remains stable Follow up with primary care provider for annual pre and postcontrast MRI Per patient this has already been set up by PCP (3) Hypertension: Qualifiers: Hypertension type: primary hypertension Qualified Code(s): I10 - Essential (primary) hypertension Code(s): I10 - Essential (primary) hypertension Status: Chronic Assessment and Plan: Chronic, continue home medication - lasix 20 mg daily - losartan 100 mg daily - metoprolol 25 mg daily - blood pressures reviewed and remain stable, continue to monitor (4) Depression with anxiety: Code(s): F41.8 - Other specified anxiety disorders Status: Acute Assessment and Plan: -continue home medication p.r.n. as needed for anxiety (5) Paraplegia: Code(s): G82.20 - Paraplegia, unspecified Status: Acute Assessment and Plan: Chronic, s/p spine stimulator placed [address] Barajas at [facility] Continue home medications (6) YAJAIRA (obstructive sleep apnea): Code(s): G47.33 - Obstructive sleep apnea (adult) (pediatric) Status: Acute Assessment and Plan: Continue CPAP Time Spent With Patient Time with patient: 25 - 35 minutes Subjective Date/time seen: 03/21/25 06:41 Interval history: 59-year-old female who is wheelchair-bound due to incomplete paraplegia with history of urostomy ([facility]), irritable bowel, afib, hy pertension, dyslipidemia, stroke, obstructive sleep apnea, depression, and anxiety presented to the hospital with complaints of suprapubic pain. Patient is pleasant sitting up comfortably in bed with at bedside. She continues to endorse pain around the urostomy site and to the left flank. Review of Systems Review of Systems: All systems reviewed & are unremarkable except as noted in HPI and below Exam Narrative: AF HR 77 RR 18 Spo2 96 BP 137/64 General: female in no acute respiratory distress who is nontoxic appearing, sitting up in bed. HEENT: Normocephalic. Atraumatic. Extraocular movement intact. Sclera clear and anicteric. No facial asymmetry. Chest: Lungs are clear to auscultation bilaterally. No wheezes or crackles. CV: Heart was regular rate and rhythm. S1-S2. No murmurs, gallops, or rubs. Abd: Abdomen was soft. Nontender. Nondistended. Positive bowel sounds. Urostomy bag in place with clear straw colored urine. No drainage noted at ostomy site. Ext: No clubbing, cyanosis. DP pulses bilaterally. Neuro: Patient is alert. Speech is clear. Objective Data Vital Signs Vital Signs: Vital Signs - 24 hr 03/20/25 13:05 03/20/25 13:33 03/20/25 14:14 Temperature 97.8 F Pulse Rate 74 72 Respiratory Rate 18 20 Blood Pressure 144/94 H 161/130 H Pulse Oximetry 96 98 99 Oxygen Delivery Room Air Room Air 03/20/25 14:19 03/20/25 15:29 03/20/25 15:30 Temperature Pulse Rate 78 Respiratory Rate 20 Blood Pressure Pulse Oximetry 97 96 96 Oxygen Delivery 03/20/25 16:23 03/20/25 20:00 03/20/25 21:17 Temperature 98.3 F Pulse Rate 86 91 Respiratory Rate 20 18 Blood Pressure 156/92 H 139/89 Pulse Oximetry 100 99 98 Oxygen Delivery Room Air 03/20/25 21:17 03/21/25 00:00 03/21/25 02:06 Temperature 98.1 F Pulse Rate 91 Respiratory Rate 18 Blood Pressure 151/85 H Pulse Oximetry 96 Oxygen Delivery Room Air Room Air 03/21/25 04:00 Temperature 97.9 F Pulse Rate 86 Respiratory Rate 18 Blood Pressure 128/67 Pulse Oximetry 98 Oxygen Delivery Intake/Output Intake/Output: Intake & Output 03/18/25 03/19/25 03/20/25 03/21/25 23:59 23:59 23:59 23:59 Intake Total 1050 Output Total 850 600 Balance 200 -600 Meds/Results Medications: Active Medications Generic Name Dose Route Start Last Admin Trade Name Freq PRN Reason Stop Dose Admin Hydrocodone Bitart/Acetaminophen 1 tab 03/20/25 19:49 03/20/25 20:30 Hydrocodone/Acetaminophen (*Crx) 7.5-325 Mg Tablet PO 1 tab Q8H PRN Administration Pain 4-6 Alprazolam 0.25 mg 03/20/25 19:49 Alprazolam (*Crx) 0.25 Mg Tablet PO TID PRN Anxiety Aspirin 81 mg 03/21/25 09:00 Aspirin 81 Mg Enteric Tablet PO DAILY [facility] Atorvastatin Calcium 10 mg 03/21/25 09:00 Atorvastatin 10 Mg Tablet PO DAILY [facility] Cyclobenzaprine HCl 10 mg 03/21/25 09:00 Cyclobenzaprine Hcl 10 Mg Tablet PO TID [facility] Diclofenac Sodium 1 applic 03/20/25 21:00 03/20/25 20:27 Diclofenac Sodium 1% 100 Gm Gel (*Bkc) TOPICAL 1 applic QID ANA Administration Escitalopram Oxalate 20 mg 03/20/25 21:00 03/20/25 20:27 Escitalopram Oxalate 10 Mg Tablet PO 20 mg HS ANA Administration Furosemide 20 mg 03/21/25 09:00 Furosemide 20 Mg Tablet BY MOUTH QAM [facility] Sodium Chloride 1,000 mls @ 125 mls/hr 03/20/25 16:30 03/20/25 20:31 Normal Saline Iv IV CONT 125 mls/hr .Q8H ANA Administration Ceftriaxone Sodium 1 gm/ 50 mls @ 100 mls/hr 03/21/25 16:00 Sodium Chloride IVPB Q24H ANA Ondansetron HCl 4 mg 03/20/25 16:28 Ondansetron Inj 4 Mg/2 Ml Vial IV PUSH Q4H PRN Nausea Valacyclovir HCl 1,000 mg 03/20/25 21:00 03/20/25 21:29 Valacyclovir Hcl 500 Mg Tablet PO 1,000 mg Q12HR ANA Administration Radiology Results: ITS Impressions Abdomen/Pelvis CT 03/20/25 15:20 IMPRESSION: 1. No acute intra-abdominal process. 2. Pancreatic lesion, contrast-enhanced MRI recommended. Incidental findings detailed above. Labs Labs: Laboratory Results - last 24 hr 03/20/25 03/20/25 03/20/25 14:21 14:42 20:34 WBC 8.3 RBC 5.03 Hgb 13.9 Hct 41.6 MCV 82.7 MCH 27.6 MCHC 33.4 RDW 13.9 Plt Count 192 MPV 9.6 Immature Gran % (Auto) 0.5 Neut % (Auto) 58.5 Lymph % (Auto) 31.6 [place] % (Auto) 7.0 Eos % (Auto) 1.7 Baso % (Auto) 0.7 Lymph # (Auto) 2.63 [place] # (Auto) 0.6 Eos # (Auto) 0.1 Baso # (Auto) 0.1 Abs Immat Gran (auto) 0.04 H Absolute Neuts (auto) 4.9 Absolute Nucleated RBC 0.000 Nucleated RBC % 0.0 Sodium 140 Potassium 4.0 Chloride 102 Carbon Dioxide 30 Anion Gap 8 BUN 17 Creatinine 0.53 L Estim Creat Clear Calc 120 Estimated GFR > 60 Glucose 98 POC Capillary Glucose 113 H Lactic Acid 1.1 Calcium 8.7 Total Bilirubin 0.7 AST 28 ALT 25 Alkaline Phosphatase 85 Total Protein 8.0 Albumin 4.3 Urine Color Yellow Urine Appearance Cloudy H Urine pH 7.0 Ur Specific [place] 1.012 Urine Protein Negative Urine Glucose (UA) Negative Urine Ketones Negative Ur Blood (Man) 1+ H Urine Nitrate Positive H Urine Bilirubin Negative Urine Urobilinogen 0.2 Add Ur Microanalysis Reviewed Leukocyte Esterase Rfl 2+ H Urine RBC 6-10 H Urine WBC 21-50 H Ur Squamous Epith Cells Occasional Urine Bacteria 4+ H Urine Casts 3-5 03/21/25 04:37 WBC 6.5 RBC 4.25 Hgb 11.8 L Hct 36.3 L MCV 85.4 MCH 27.8 MCHC 32.5 RDW 13.8 Plt Count 185 MPV 9.4 Immature Gran % (Auto) 0.8 H Neut % (Auto) 58.9 Lymph % (Auto) 29.4 [place] % (Auto) 7.2 Eos % (Auto) 2.8 Baso % (Auto) 0.9 Lymph # (Auto) 1.92 [place] # (Auto) 0.5 Eos # (Auto) 0.2 Baso # (Auto) 0.1 Abs Immat Gran (auto) 0.05 H Absolute Neuts (auto) 3.9 Absolute Nucleated RBC 0.000 Nucleated RBC % 0.0 Sodium 137 Potassium 3.6 Chloride 104 Carbon Dioxide 28 Anion Gap 5 BUN 14 Creatinine 0.60 L Estim Creat Clear Calc 113 Estimated GFR > 60 Glucose 95 POC Capillary Glucose Lactic Acid Calcium 7.8 L Total Bilirubin 0.4 AST 20 ALT 20 Alkaline Phosphatase 87 Total Protein 6.4 Albumin 3.4 L Urine Color Urine Appearance Urine pH Ur Specific [place] Urine Protein Urine Glucose (UA) Urine Ketones Ur Blood (Man) Urine Nitrate Urine Bilirubin Urine Urobilinogen Add Ur Microanalysis Leukocyte Esterase Rfl Urine RBC Urine WBC Ur Squamous Epith Cells Urine Bacteria Urine Casts Quality VTE Prophylaxis VTE prophylaxis: mechanical ordered and pharmacologic ordered
[2025-03-21] MEDS: CYCLOBENZAPRINE HCL 10 MG TABLET PO ×3 (08:44→16:53)
[2025-03-21] MEDS: METOPROLOL SUCCINATE EXT REL 25 MG TABCR PO (08:45)
[2025-03-21] MEDS: FUROSEMIDE 20 MG TABLET BY MOUTH (08:45)
[2025-03-21] MEDS: ASPIRIN 81 MG ENTERIC TABLET PO (08:45)
[2025-03-21] MEDS: ATORVASTATIN 10 MG TABLET PO (08:46)
[2025-03-21] MEDS: HYDROcodone/acetaminophen (*CRX) 7.5-325 MG TABLET 1 TAB PO ×2 (08:52→16:55)
[2025-03-21] MEDS: diphenhydrAMINE HCl CAP 25 MG CAPSULE PO ×2 (11:58→18:25)
[2025-03-21] MEDS: DICLOFENAC SODIUM 1% 100 GM GEL (*BKC) 1 APPLIC TOPICAL ×2 (13:38→20:14)
[2025-03-21] MEDS: cefTRIAXone 1 GM in SODIUM CHLORIDE 0.9% IV 50 ML 100 ML IVPB (15:13)
[2025-03-21] MEDS: ESCITALOPRAM OXALATE 10 MG TABLET 20 MG PO (20:10)
[2025-03-21] MEDS: LOSARTAN POTASSIUM 100 MG TABLET PO (20:10)
[2025-03-21] MEDS: ZOLPIDEM TARTRATE (*CRX) 5 MG TABLET PO (20:10)
[2025-03-21] MEDS: ALPRAZolam (*CRX) 0.25 MG TABLET PO (20:10)
[2025-03-22] VITALS (7 sets, daily range): BP systolic 109–143; BP diastolic 58–84; PULSE 69–77; RESP 14–16; TEMP 36.4–36.7; O2SAT 95–99
[2025-03-22] MEDS: HYDROcodone/acetaminophen (*CRX) 7.5-325 MG TABLET 1 TAB PO ×2 (04:13→11:59)
[2025-03-22 05:25] LABS: Hematocrit 35.4 % (37.0-47.0); Hemoglobin 11.5 g/dL (12.0-15.0); Immature Granulocyte Percent A 0.5 % (0-0.5); Lymphocytes Absolute Auto 1.98 K/mm3 (0.9-3.2); Mean Corpuscular HGB Conc 32.5 g/dl (32-36); Mean Corpuscular Hemoglobin 27.9 pg (26-34); Mean Corpuscular Volume 85.9 fl (80-100); Nucleated Red Blood Cells Absolute Auto 0.000 K/mm3 (0.0-0.012); Nucleated Red Blood Cells Perc 0.0 % (0.0-0.2); Platelet Count Result 156 k/mm3 (150-375); Red Blood Count 4.12 M/mm3 (4.2-5.4); White Blood Count 6.3 K/mm3 (4.5-10.0)
[2025-03-22 05:48] LABS: Alanine Aminotransferase 18 U/L (6-35); Albumin Level 3.4 g/dL (3.5-5.1); Alkaline Phosphatase 86 U/L (38-126); Anion Gap 3 mmol/L (4-12); Aspartate Amino Transferase 21 U/L (14-36); Bilirubin,Total 0.6 mg/dL (0.2-1.3); Blood Urea Nitrogen 13 mg/dL (7-17); Calcium 8.1 mg/dL (8.4-10.2); Carbon Dioxide 31 mmol/L (22-30); Chloride 102 mmol/L (98-107); Estimated CRCL calculation 96 ml/min; Estimated Glomerular Filt Rate > 60; Glucose 95 mg/dL (65-110); Potassium 3.9 mmol/L (3.4-5.0); Sodium 136 mmol/L (137-145); Total Protein 6.5 g/dL (6.3-8.2)
[2025-03-22] MEDS: diphenhydrAMINE HCl CAP 25 MG CAPSULE PO ×2 (06:24→18:56)
--- NOTE | 2025-03-22 07:21 | PM.IMPN ---
Progress Note: A&P Assessment and Plan (1) Urinary tract infection: Qualifiers: Hematuria presence: without hematuria Urinary tract infection type: acute cystitis Qualified Code(s): N30.00 - Acute cystitis without hematuria Code(s): N39.0 - Urinary tract infection, site not specified Status: Acute Assessment and Plan: - History of urostomy (2 years ago performed at [facility]) Changes the bag herself, plan to change today 03/21 - UA: Cloudy appearance with 1+ blood, positive nitrates, 2+ leukocytes, 6-10 RBC, 21-50 WBC, and 4+ bacteria. - UC obtained on 03/20: Pending -blood cultures obtained on 03/20: NGTD - previous micro reviewed 12/13/2024: Klebsiella oxytoca pansensitive 10/18/2024: Klebsiella oxytoca pansensitive and enterococcus resistant to ampicillin and Macrobid - started on Rocephin on 03/20 and linezolid 03/22 Patient continues to endorse dysuria that has worsened since admission. Given prior enterococcus and that patient is not improving on the Rocephin will start linezolid to cover. Discussed with [facility]. Monitor for serotonin syndrome. (2) Pancreatic lesion: Code(s): K86.9 - Disease of pancreas, unspecified Status: Acute Assessment and Plan: Paternal history of pancreatic cancer CT abdomen/pelvis: pancreatic tail there is a cystic lesion 1 x 1 cm Previously seen on 03/20/23: Couple cystic lesions at the tail of the pancreas the larger measuring 1.2 cm. Redemonstrated several times throughout the years with the most recent on 01/31/2025: Remains stable Follow up with primary care provider for annual pre and postcontrast MRI Per patient this has already been set up by PCP (3) Hypertension: Qualifiers: Hypertension type: primary hypertension Qualified Code(s): I10 - Essential (primary) hypertension Code(s): I10 - Essential (primary) hypertension Status: Chronic Assessment and Plan: Chronic, continue home medication - lasix 20 mg daily - losartan 100 mg daily - metoprolol 25 mg daily - blood pressures reviewed and remain stable, continue to monitor (4) Depression with anxiety: Code(s): F41.8 - Other specified anxiety disorders Status: Acute Assessment and Plan: -continue home medication p.r.n. as needed for anxiety (5) Paraplegia: Code(s): G82.20 - Paraplegia, unspecified Status: Acute Assessment and Plan: Chronic, s/p spine stimulator placed [address] Barajas at [facility] Continue home medications (6) YAJAIRA (obstructive sleep apnea): Code(s): G47.33 - Obstructive sleep apnea (adult) (pediatric) Status: Acute Assessment and Plan: Continue CPAP Time Spent With Patient Time with patient: 25 - 35 minutes Subjective Date/time seen: 03/22/25 07:21 Interval history: 59-year-old female who is wheelchair-bound due to incomplete paraplegia with history of urostomy (2 years ago performed at [facility]), irritable bowel, afib, hypertension, dyslipidemia, stroke, obstructive sleep apnea, depression, and anxiety presented to the hospital with complaints of suprapubic pain. Patient is pleasant sitting in bed with family at bedside. She continues to endorse left flank pain is radiating down to her groin that she describes as a pressure/burning. She then described the pain to the ostomy side as a stabbing. She notes that the pain has worsened since admission. She has no other complaints denying chest pain, shortness a breath, palpitations, nausea/vomiting. Review of Systems Review of Systems: All systems reviewed & are unremarkable except as noted in HPI and below Exam Narrative: AF HR 69 RR 14 Spo2 98 BP 109/58 General: female in no acute respiratory distress who is nontoxic appearing, sitting up in bed. HEENT: Normocephalic. Atraumatic. Extraocular movement intact. Sclera clear and anicteric. No facial asymmetry. Chest: Lungs are clear to auscultation bilaterally. CV: Heart was regular rate and rhythm. Abd: Abdomen was soft. Nontender. Nondistended. Positive bowel sounds. Urostomy bag in place with clear straw colored urine. No drainage noted at ostomy site. Objective Data Vital Signs Vital Signs: Vital Signs - 24 hr 03/21/25 08:00 03/21/25 08:45 03/21/25 08:45 Temperature 97.6 F Pulse Rate 82 81 81 Respiratory Rate 16 16 Blood Pressure 147/65 H Pulse Oximetry 98 98 Oxygen Delivery Room Air Fraction of Inspired Oxygen 03/21/25 09:23 03/21/25 15:09 03/21/25 19:32 Temperature 97.6 F 97.1 F L 97.0 F L Pulse Rate 77 74 73 Respiratory Rate 18 18 16 Blood Pressure 137/64 145/74 H 143/76 H Pulse Oximetry 96 96 95 Oxygen Delivery Fraction of Inspired Oxygen 03/21/25 20:00 03/21/25 20:18 03/21/25 23:14 Temperature Pulse Rate Respiratory Rate Blood Pressure Pulse Oximetry 97 Oxygen Delivery Room Air Room Air Room Air Fraction of Inspired Oxygen 03/21/25 23:38 03/22/25 03:14 03/22/25 04:00 Temperature 97.6 F 97.6 F Pulse Rate 74 71 Respiratory Rate 16 16 Blood Pressure 129/70 130/67 Pulse Oximetry 97 95 Oxygen Delivery Room Air Fraction of Inspired Oxygen Intake/Output Intake/Output: Intake & Output 03/19/25 03/20/25 03/21/25 03/22/25 23:59 23:59 23:59 23:59 Intake Total 1050 770 500 Output Total 850 2700 1750 Balance 200 -1930 -1250 Meds/Results Medications: Active Medications Generic Name Dose Route Start Last Admin Trade Name Freq PRN Reason Stop Dose Admin Hydrocodone Bitart/Acetaminophen 1 tab 03/20/25 19:49 03/22/25 04:13 Hydrocodone/Acetaminophen (*Crx) 7.5-325 Mg Tablet PO 1 tab Q8H PRN Administration Pain 4-6 Alprazolam 0.25 mg 03/20/25 19:49 03/21/25 20:10 Alprazolam (*Crx) 0.25 Mg Tablet PO 0.25 mg TID PRN Administration Anxiety Aspirin 81 mg 03/21/25 09:00 03/21/25 08:45 Aspirin 81 Mg Enteric Tablet PO 81 mg DAILY ANA Administration Atorvastatin Calcium 10 mg 03/21/25 09:00 03/21/25 08:46 Atorvastatin 10 Mg Tablet PO 10 mg DAILY ANA Administration Cyclobenzaprine HCl 10 mg 03/21/25 09:00 03/21/25 16:53 Cyclobenzaprine Hcl 10 Mg Tablet PO 10 mg TID ANA Administration Diclofenac Sodium 1 applic 03/20/25 21:00 03/21/25 20:14 Diclofenac Sodium 1% 100 Gm Gel (*Bkc) TOPICAL 1 applic QID ANA Administration Diphenhydramine HCl 25 mg 03/21/25 11:48 03/22/25 06:24 Diphenhydramine Hcl Cap 25 Mg Capsule PO 25 mg Q6H PRN Administration Itching Enoxaparin Sodium 40 mg 03/22/25 09:00 Enoxaparin 40 Mg/0.4 Ml Syringe SUB-Q DAILY ANA Escitalopram Oxalate 20 mg 03/20/25 21:00 03/21/25 20:10 Escitalopram Oxalate 10 Mg Tablet PO 20 mg HS ANA Administration Furosemide 20 mg 03/21/25 09:00 03/21/25 08:45 Furosemide 20 Mg Tablet BY MOUTH 20 mg QAM ANA Administration Ceftriaxone Sodium 1 gm/ 50 mls @ 100 mls/hr 03/21/25 16:00 03/21/25 15:43 Sodium Chloride IVPB Infused Q24H ANA Infusion Losartan Potassium 100 mg 03/21/25 21:00 03/21/25 20:10 Losartan Potassium 100 Mg Tablet PO 100 mg HS ANA Administration Metoprolol Succinate 25 mg 03/21/25 09:00 03/21/25 08:45 Metoprolol Succinate Ext Rel 25 Mg Tabcr PO 25 mg DAILY ANA Administration Ondansetron HCl 4 mg 03/20/25 16:28 Ondansetron Inj 4 Mg/2 Ml Vial IV PUSH Q4H PRN Nausea Ropinirole HCl 1 mg 03/21/25 21:00 03/21/25 20:46 Ropinirole Hcl 1 Mg Tablet PO 1 mg HS ANA Administration Ropinirole HCl 1 mg 03/22/25 17:00 Ropinirole Hcl 1 Mg Tablet PO 1700 ANA Valacyclovir HCl 1,000 mg 03/20/25 21:00 03/21/25 20:10 Valacyclovir Hcl 500 Mg Tablet PO 1,000 mg Q12HR ANA Administration Zolpidem Tartrate 5 mg 03/21/25 18:38 03/21/25 20:10 Zolpidem Tartrate (*Crx) 5 Mg Tablet PO 5 mg HS PRN Administration Insomnia Radiology Results: ITS Impressions Abdomen/Pelvis CT 03/20/25 15:20 IMPRESSION: 1. No acute intra-abdominal process. 2. Pancreatic lesion, contrast-enhanced MRI recommended. Incidental findings detailed above. Labs Labs: Laboratory Results - last 24 hr 03/22/25 04:38 WBC 6.3 RBC 4.12 L Hgb 11.5 L Hct 35.4 L MCV 85.9 MCH 27.9 MCHC 32.5 RDW 13.7 Plt Count 156 MPV 9.5 Immature Gran % (Auto) 0.5 Neut % (Auto) 56.7 Lymph % (Auto) 31.5 [place] % (Auto) 7.5 Eos % (Auto) 2.7 Baso % (Auto) 1.1 Lymph # (Auto) 1.98 [place] # (Auto) 0.5 Eos # (Auto) 0.2 Baso # (Auto) 0.1 Abs Immat Gran (auto) 0.03 Absolute Neuts (auto) 3.6 Absolute Nucleated RBC 0.000 Nucleated RBC % 0.0 Sodium 136 L Potassium 3.9 Chloride 102 Carbon Dioxide 31 H Anion Gap 3 L BUN 13 Creatinine 0.72 Estim Creat Clear Calc 96 Estimated GFR > 60 Glucose 95 Calcium 8.1 L Total Bilirubin 0.6 AST 21 ALT 18 Alkaline Phosphatase 86 Total Protein 6.5 Albumin 3.4 L Quality VTE Prophylaxis VTE prophylaxis: mechanical ordered and pharmacologic ordered
[2025-03-22] MEDS: CYCLOBENZAPRINE HCL 10 MG TABLET PO ×3 (09:12→16:52)
[2025-03-22] MEDS: DICLOFENAC SODIUM 1% 100 GM GEL (*BKC) 1 APPLIC TOPICAL ×2 (09:12→20:40)
[2025-03-22] MEDS: ASPIRIN 81 MG ENTERIC TABLET PO (09:12)
[2025-03-22] MEDS: ENOXAPARIN 40 MG/0.4 ML SYRINGE SUB-Q (09:12)
[2025-03-22] MEDS: ATORVASTATIN 10 MG TABLET PO (09:12)
[2025-03-22] MEDS: FUROSEMIDE 20 MG TABLET BY MOUTH (09:13)
[2025-03-22] MEDS: METOPROLOL SUCCINATE EXT REL 25 MG TABCR PO (09:13)
[2025-03-22] MEDS: ALPRAZolam (*CRX) 0.25 MG TABLET PO ×2 (09:21→20:34)
[2025-03-22] MEDS: cefTRIAXone 1 GM in SODIUM CHLORIDE 0.9% IV 50 ML 100 ML IVPB (15:01)
[2025-03-22] MEDS: LINEZOLID 600 MG/300 ML 600 MG/300 ML SOLN 300 MG IVPB (15:53)
[2025-03-22] MEDS: LOSARTAN POTASSIUM 100 MG TABLET PO (20:34)
[2025-03-22] MEDS: ZOLPIDEM TARTRATE (*CRX) 5 MG TABLET PO (20:35)
[2025-03-22] MEDS: ESCITALOPRAM OXALATE 10 MG TABLET 20 MG PO (20:35)
[2025-03-22] MEDS: HYDROcodone/acetaminophen (*CRX) 10-325 MG TABLET 1 TAB PO (20:38)
[2025-03-23] VITALS (11 sets, daily range): BP systolic 104–128; BP diastolic 45–73; PULSE 50–74; RESP 14–18; TEMP 36.1–36.7; O2SAT 94–99
[2025-03-23] MEDS: LINEZOLID 600 MG TABLET PO ×2 (01:17→09:01)
[2025-03-23] MEDS: HYDROcodone/acetaminophen (*CRX) 7.5-325 MG TABLET 1 TAB PO (01:18)
[2025-03-23] MEDS: diphenhydrAMINE HCl CAP 25 MG CAPSULE PO ×3 (04:27→20:32)
[2025-03-23] MEDS: HYDROcodone/acetaminophen (*CRX) 10-325 MG TABLET 1 TAB PO ×3 (04:32→20:31)
[2025-03-23 05:02] LABS: Hematocrit 36.6 % (37.0-47.0); Hemoglobin 11.8 g/dL (12.0-15.0); Immature Granulocyte Percent A 0.5 % (0-0.5); Lymphocytes Absolute Auto 2.57 K/mm3 (0.9-3.2); Mean Corpuscular HGB Conc 32.2 g/dl (32-36); Mean Corpuscular Hemoglobin 27.6 pg (26-34); Mean Corpuscular Volume 85.5 fl (80-100); Nucleated Red Blood Cells Absolute Auto 0.000 K/mm3 (0.0-0.012); Nucleated Red Blood Cells Perc 0.0 % (0.0-0.2); Platelet Count Result 195 k/mm3 (150-375); Red Blood Count 4.28 M/mm3 (4.2-5.4); White Blood Count 7.6 K/mm3 (4.5-10.0)
[2025-03-23 05:33] LABS: Alanine Aminotransferase 20 U/L (6-35); Albumin Level 3.5 g/dL (3.5-5.1); Alkaline Phosphatase 88 U/L (38-126); Anion Gap 6 mmol/L (4-12); Aspartate Amino Transferase 22 U/L (14-36); Bilirubin,Total 0.5 mg/dL (0.2-1.3); Blood Urea Nitrogen 11 mg/dL (7-17); Calcium 8.1 mg/dL (8.4-10.2); Carbon Dioxide 30 mmol/L (22-30); Chloride 99 mmol/L (98-107); Estimated CRCL calculation 97 ml/min; Estimated Glomerular Filt Rate > 60; Glucose 103 mg/dL (65-110); Potassium 3.6 mmol/L (3.4-5.0); Sodium 135 mmol/L (137-145); Total Protein 6.6 g/dL (6.3-8.2)
--- NOTE | 2025-03-23 08:47 | PM.IMPN ---
Progress Note: A&P Assessment and Plan (1) Urinary tract infection: Qualifiers: Hematuria presence: without hematuria Urinary tract infection type: acute cystitis Qualified Code(s): N30.00 - Acute cystitis without hematuria Code(s): N39.0 - Urinary tract infection, site not specified Status: Acute Assessment and Plan: - History of urostomy (2 years ago performed at [facility]) Changes the bag herself, plan to change today 03/21 - UA: Cloudy appearance with 1+ blood, positive nitrates, 2+ leukocytes, 6-10 RBC, 21-50 WBC, and 4+ bacteria. - UC obtained on 03/20: Pending -blood cultures obtained on 03/20: NGTD - previous micro reviewed 12/13/2024: Klebsiella oxytoca pansensitive 10/18/2024: Klebsiella oxytoca pansensitive and enterococcus resistant to ampicillin and Macrobid - started on Rocephin on 03/20 and linezolid 03/22 Patient continues to endorse dysuria that has worsened since admission. Given prior enterococcus and that patient is not improving on the Rocephin will start linezolid to cover. Discussed with ID pharmacy. Monitor for serotonin syndrome. BC prelim negative follow urine culture will order repeat CT abdomen pelvis w con to reeval for ongoing abl pain stop linezolid and continue rocephin until sensitives are back (2) Pancreatic lesion: Code(s): K86.9 - Disease of pancreas, unspecified Status: Acute Assessment and Plan: Paternal history of pancreatic cancer CT abdomen/pelvis: pancreatic tail there is a cystic lesion 1 x 1 cm Previously seen on 03/20/23: Couple cystic lesions at the tail of the pancreas the larger measuring 1.2 cm. Redemonstrated several times throughout the years with the most recent on 01/31/2025: Remains stable Follow up with primary care provider for annual pre and postcontrast MRI Per patient this has already been set up by PCP (3) Hypertension: Qualifiers: Hypertension type: primary hypertension Qualified Code(s): I10 - Essential (primary) hypertension Code(s): I10 - Essential (primary) hypertension Status: Chronic Assessment and Plan: Chronic, continue home medication - lasix 20 mg daily - losartan 100 mg daily - metoprolol 25 mg daily - blood pressures reviewed and remain stable, continue to monitor noted somewhat hypotensive. Will hold lasix this am- as no leg swelling, no sob. OK to give metoprolol. will re eval losartan at bedtime. (4) Depression with anxiety: Code(s): F41.8 - Other specified anxiety disorders Status: Acute Assessment and Plan: -continue home medication p.r.n. as needed for anxiety (5) Paraplegia: Code(s): G82.20 - Paraplegia, unspecified Status: Acute Assessment and Plan: Chronic, s/p spine stimulator placed [address] Barajas at [facility] Continue home medications (6) YAJAIRA (obstructive sleep apnea): Code(s): G47.33 - Obstructive sleep apnea (adult) (pediatric) Status: Acute Assessment and Plan: Continue CPAP Time Spent With Patient Time with patient: Greater than 35 minutes Subjective Date/time seen: 03/23/25 08:47 Interval history: 59-year-old female who is wheelchair-bound due to incomplete paraplegia with history of urostomy (2 years ago performed at [facility]), irritable bowel, afib, hypertension, dyslipidemia, stroke, obstructive sleep apnea, depression, and anxiety presented to the hospital with complaints of suprapubic pain. Assuming care. Patient is pleasant sitting in bed with family at bedside. She continues to endorse left flank pain is radiating down to her groin that she describes as a pressure/burning. Her antibiotics were escalated to linezolid. She reports feeling a bit light headed. NOted losartan 100 mg at hs, metoprolol, lasix. she is c/o abd pain that had been present since admission and has not gotten better at all. Review of Systems Review of Systems: All systems reviewed & are unremarkable except as noted in HPI and below Exam Narrative: General: female in no acute respiratory distress who is nontoxic appearing, sitting up in bed, very pleasant. HEENT: Normocephalic. Atraumatic. Extraocular movement intact. Sclera clear and anicteric. No facial asymmetry. Chest: Lungs are clear to auscultation bilaterally. CV: Heart was regular rate and rhythm. Abd: Abdomen was soft. Nontender. Nondistended. Positive bowel sounds. Urostomy bag in place with clear straw colored urine. No drainage noted at ostomy site. Objective Data Vital Signs Vital Signs: Vital Signs - 24 hr 03/22/25 09:12 03/22/25 09:13 03/22/25 09:15 Temperature 97.5 F L Pulse Rate 77 77 77 Respiratory Rate 16 16 Blood Pressure 132/77 Pulse Oximetry 99 99 Oxygen Delivery Room Air Fraction of Inspired Oxygen 03/22/25 12:00 03/22/25 20:00 03/22/25 20:00 Temperature 98.0 F 97.9 F Pulse Rate 69 69 Respiratory Rate 14 16 Blood Pressure 109/58 L 143/84 H Pulse Oximetry 98 97 Oxygen Delivery Room Air Fraction of Inspired Oxygen 03/22/25 21:10 03/22/25 22:15 03/23/25 00:00 Temperature 97.8 F Pulse Rate 64 Respiratory Rate 14 Blood Pressure 123/55 L Pulse Oximetry 95 96 Oxygen Delivery Room Air Room Air Fraction of Inspired Oxygen 03/23/25 04:00 03/23/25 04:49 Temperature 97.3 F L Pulse Rate 65 Respiratory Rate 14 Blood Pressure 107/61 Pulse Oximetry 97 Oxygen Delivery Room Air Fraction of Inspired Oxygen Intake/Output Intake/Output: Intake & Output 03/20/25 03/21/25 03/22/25 03/23/25 23:59 23:59 23:59 23:59 Intake Total 2385 226 3822 400 Output Total 850 2700 4275 1600 Balance 519 -5101 -8320 -6619 Meds/Results Medications: Active Medications Generic Name Dose Route Start Last Admin Trade Name Freq PRN Reason Stop Dose Admin Hydrocodone Bitart/Acetaminophen 1 tab 03/22/25 15:27 03/23/25 01:18 Hydrocodone/Acetaminophen (*Crx) 7.5-325 Mg Tablet PO 1 tab Q6H PRN Administration Pain 4-6 Hydrocodone Bitart/Acetaminophen 1 tab 03/22/25 15:27 03/23/25 04:32 Hydrocodone/Acetaminophen (*Crx) 10-325 Mg Tablet PO 1 tab Q6H PRN Administration Pain Rated 7-10 Alprazolam 0.25 mg 03/20/25 19:49 03/22/25 20:34 Alprazolam (*Crx) 0.25 Mg Tablet PO 0.25 mg TID PRN Administration Anxiety Aspirin 81 mg 03/21/25 09:00 03/22/25 09:12 Aspirin 81 Mg Enteric Tablet PO 81 mg DAILY ANA Administration Atorvastatin Calcium 10 mg 03/21/25 09:00 03/22/25 09:12 Atorvastatin 10 Mg Tablet PO 10 mg DAILY ANA Administration Cyclobenzaprine HCl 10 mg 03/21/25 09:00 03/22/25 16:52 Cyclobenzaprine Hcl 10 Mg Tablet PO 10 mg TID ANA Administration Diclofenac Sodium 1 applic 03/20/25 21:00 03/22/25 20:40 Diclofenac Sodium 1% 100 Gm Gel (*Bkc) TOPICAL 1 applic QID ANA Administration Diphenhydramine HCl 25 mg 03/21/25 11:48 03/23/25 04:27 Diphenhydramine Hcl Cap 25 Mg Capsule PO 25 mg Q6H PRN Administration Itching Enoxaparin Sodium 40 mg 03/22/25 09:00 03/22/25 09:12 Enoxaparin 40 Mg/0.4 Ml Syringe SUB-Q 40 mg DAILY ANA Administration Escitalopram Oxalate 20 mg 03/20/25 21:00 03/22/25 20:35 Escitalopram Oxalate 10 Mg Tablet PO 20 mg HS ANA Administration Furosemide 20 mg 03/21/25 09:00 03/22/25 09:13 Furosemide 20 Mg Tablet BY MOUTH 20 mg QAM ANA Administration Ceftriaxone Sodium 1 gm/ 50 mls @ 100 mls/hr 03/21/25 16:00 03/22/25 15:31 Sodium Chloride IVPB Infused Q24H ANA Infusion Linezolid 600 mg 03/23/25 01:00 03/23/25 01:17 Linezolid 600 Mg Tablet PO 600 mg Q12HR ANA Administration Losartan Potassium 100 mg 03/21/25 21:00 03/22/25 20:34 Losartan Potassium 100 Mg Tablet PO 100 mg HS ANA Administration Metoprolol Succinate 25 mg 03/21/25 09:00 03/22/25 09:13 Metoprolol Succinate Ext Rel 25 Mg Tabcr PO 25 mg DAILY ANA Administration Ondansetron HCl 4 mg 03/20/25 16:28 Ondansetron Inj 4 Mg/2 Ml Vial IV PUSH Q4H PRN Nausea Ropinirole HCl 1 mg 03/21/25 21:00 03/22/25 20:35 Ropinirole Hcl 1 Mg Tablet PO 1 mg HS ANA Administration Ropinirole HCl 1 mg 03/22/25 17:00 03/22/25 16:53 Ropinirole Hcl 1 Mg Tablet PO 1 mg 1700 ANA Administration Valacyclovir HCl 1,000 mg 03/20/25 21:00 03/22/25 20:35 Valacyclovir Hcl 500 Mg Tablet PO 1,000 mg Q12HR ANA Administration Zolpidem Tartrate 5 mg 03/21/25 18:38 03/22/25 20:35 Zolpidem Tartrate (*Crx) 5 Mg Tablet PO 5 mg HS PRN Administration Insomnia Radiology Results: ITS Impressions Abdomen/Pelvis CT 03/20/25 15:20 IMPRESSION: 1. No acute intra-abdominal process. 2. Pancreatic lesion, contrast-enhanced MRI recommended. Incidental findings detailed above. Labs Labs: Laboratory Results - last 24 hr 03/23/25 04:29 WBC 7.6 RBC 4.28 Hgb 11.8 L Hct 36.6 L MCV 85.5 MCH 27.6 MCHC 32.2 RDW 14.0 Plt Count 195 MPV 9.5 Immature Gran % (Auto) 0.5 Neut % (Auto) 55.3 Lymph % (Auto) 33.7 [place] % (Auto) 7.1 Eos % (Auto) 2.5 Baso % (Auto) 0.9 Lymph # (Auto) 2.57 [place] # (Auto) 0.5 Eos # (Auto) 0.2 Baso # (Auto) 0.1 Abs Immat Gran (auto) 0.04 H Absolute Neuts (auto) 4.2 Absolute Nucleated RBC 0.000 Nucleated RBC % 0.0 Sodium 135 L Potassium 3.6 Chloride 99 Carbon Dioxide 30 Anion Gap 6 BUN 11 Creatinine 0.71 Estim Creat Clear Calc 97 Estimated GFR > 60 Glucose 103 Calcium 8.1 L Total Bilirubin 0.5 AST 22 ALT 20 Alkaline Phosphatase 88 Total Protein 6.6 Albumin 3.5 Quality VTE Prophylaxis VTE prophylaxis: mechanical ordered and pharmacologic ordered
[2025-03-23] MEDS: ATORVASTATIN 10 MG TABLET PO (08:59)
[2025-03-23] MEDS: ASPIRIN 81 MG ENTERIC TABLET PO (08:59)
[2025-03-23] MEDS: CYCLOBENZAPRINE HCL 10 MG TABLET PO ×3 (09:00→16:15)
[2025-03-23] MEDS: DICLOFENAC SODIUM 1% 100 GM GEL (*BKC) 1 APPLIC TOPICAL ×3 (09:00→20:34)
[2025-03-23] MEDS: ENOXAPARIN 40 MG/0.4 ML SYRINGE SUB-Q (09:00)
[2025-03-23] MEDS: METOPROLOL SUCCINATE EXT REL 25 MG TABCR PO (09:00)
[2025-03-23] MEDS: cefTRIAXone 1 GM in SODIUM CHLORIDE 0.9% IV 50 ML 100 ML IVPB (15:08)
[2025-03-23] MEDS: ESCITALOPRAM OXALATE 10 MG TABLET 20 MG PO (20:31)
[2025-03-23] MEDS: ZOLPIDEM TARTRATE (*CRX) 5 MG TABLET PO (20:31)
[2025-03-23] MEDS: ALPRAZolam (*CRX) 0.25 MG TABLET PO (20:31)
[2025-03-23] MEDS: LOSARTAN POTASSIUM 100 MG TABLET PO (20:31)
[2025-03-24 03:43] VITALS: BP 111/64; PULSE 69; RESP 17; TEMP 36.6; O2SAT 96
[2025-03-24] MEDS: HYDROcodone/acetaminophen (*CRX) 10-325 MG TABLET 1 TAB PO ×3 (03:43→16:23)
[2025-03-24 05:34] LABS: Hematocrit 35.8 % (37.0-47.0); Hemoglobin 11.5 g/dL (12.0-15.0); Immature Granulocyte Percent A 0.6 % (0-0.5); Lymphocytes Absolute Auto 2.25 K/mm3 (0.9-3.2); Mean Corpuscular HGB Conc 32.1 g/dl (32-36); Mean Corpuscular Hemoglobin 27.4 pg (26-34); Mean Corpuscular Volume 85.2 fl (80-100); Nucleated Red Blood Cells Absolute Auto 0.000 K/mm3 (0.0-0.012); Nucleated Red Blood Cells Perc 0.0 % (0.0-0.2); Platelet Count Result 205 k/mm3 (150-375); Red Blood Count 4.20 M/mm3 (4.2-5.4); White Blood Count 8.1 K/mm3 (4.5-10.0)
[2025-03-24 05:54] LABS: Alanine Aminotransferase 19 U/L (6-35); Albumin Level 3.4 g/dL (3.5-5.1); Alkaline Phosphatase 91 U/L (38-126); Anion Gap 3 mmol/L (4-12); Aspartate Amino Transferase 22 U/L (14-36); Bilirubin,Total 0.4 mg/dL (0.2-1.3); Blood Urea Nitrogen 12 mg/dL (7-17); Calcium 8.1 mg/dL (8.4-10.2); Carbon Dioxide 30 mmol/L (22-30); Chloride 101 mmol/L (98-107); Estimated CRCL calculation 91 ml/min; Estimated Glomerular Filt Rate > 60; Glucose 100 mg/dL (65-110); Potassium 3.8 mmol/L (3.4-5.0); Sodium 134 mmol/L (137-145); Total Protein 6.4 g/dL (6.3-8.2)
[2025-03-24 09:54] VITALS: BP 101/69
[2025-03-24] MEDS: ASPIRIN 81 MG ENTERIC TABLET PO (09:55)
[2025-03-24] MEDS: diphenhydrAMINE HCl CAP 25 MG CAPSULE PO ×2 (09:55→16:23)
[2025-03-24] MEDS: ALPRAZolam (*CRX) 0.25 MG TABLET PO ×2 (09:56→13:27)
[2025-03-24] MEDS: DICLOFENAC SODIUM 1% 100 GM GEL (*BKC) 1 APPLIC TOPICAL ×4 (09:56→20:57)
[2025-03-24] MEDS: ENOXAPARIN 40 MG/0.4 ML SYRINGE SUB-Q (09:56)
[2025-03-24] MEDS: CYCLOBENZAPRINE HCL 10 MG TABLET PO ×3 (09:56→16:23)
[2025-03-24] MEDS: ATORVASTATIN 10 MG TABLET PO (09:56)
--- NOTE | 2025-03-24 10:14 | PM.IMPN ---
Progress Note: A&P Assessment and Plan (1) Urinary tract infection: Qualifiers: Hematuria presence: without hematuria Urinary tract infection type: acute cystitis Qualified Code(s): N30.00 - Acute cystitis without hematuria Code(s): N39.0 - Urinary tract infection, site not specified Status: Acute Assessment and Plan: - History of urostomy (2 years ago performed at [facility]) Changes the bag herself, plan to change today 03/21 - UA: Cloudy appearance with 1+ blood, positive nitrates, 2+ leukocytes, 6-10 RBC, 21-50 WBC, and 4+ bacteria. - UC obtained on 03/20: Pending -blood cultures obtained on 03/20: NGTD - previous micro reviewed 12/13/2024: Klebsiella oxytoca pansensitive 10/18/2024: Klebsiella oxytoca pansensitive and enterococcus resistant to ampicillin and Macrobid - started on Rocephin on 03/20 and linezolid 03/22 Patient continues to endorse dysuria that has worsened since admission. Given prior enterococcus and that patient is not improving on the Rocephin will start linezolid to cover. Discussed with ID pharmacy. Monitor for serotonin syndrome. BC prelim negative follow urine culture will order repeat CT abdomen pelvis w con to reeval for ongoing abl pain stop linezolid and continue rocephin until sensitives are back waiting for sensitivities (2) Pancreatic lesion: Code(s): K86.9 - Disease of pancreas, unspecified Status: Acute Assessment and Plan: Paternal history of pancreatic cancer CT abdomen/pelvis: pancreatic tail there is a cystic lesion 1 x 1 cm Previously seen on 03/20/23: Couple cystic lesions at the tail of the pancreas the larger measuring 1.2 cm. Redemonstrated several times throughout the years with the most recent on 01/31/2025: Remains stable Follow up with primary care provider for annual pre and postcontrast MRI Per patient this has already been set up by PCP (3) Hypertension: Qualifiers: Hypertension type: primary hypertension Qualified Code(s): I10 - Essential (primary) hypertension Code(s): I10 - Essential (primary) hypertension Status: Chronic Assessment and Plan: Chronic, continue home medication - lasix 20 mg daily - losartan 100 mg daily - metoprolol 25 mg daily - blood pressures reviewed and remain stable, continue to monitor noted somewhat hypotensive. Will hold lasix this am- as no leg swelling, no sob. OK to give metoprolol. will re eval losartan at bedtime. (4) Depression with anxiety: Code(s): F41.8 - Other specified anxiety disorders Status: Acute Assessment and Plan: -continue home medication p.r.n. as needed for anxiety (5) Paraplegia: Code(s): G82.20 - Paraplegia, unspecified Status: Acute Assessment and Plan: Chronic, s/p spine stimulator placed [address] Barajas at [facility] Continue home medications (6) YAJAIRA (obstructive sleep apnea): Code(s): G47.33 - Obstructive sleep apnea (adult) (pediatric) Status: Acute Assessment and Plan: Continue CPAP (7) Bilateral hydronephrosis: Code(s): N13.30 - Unspecified hydronephrosis Status: Acute Assessment and Plan: per ct scan will consult urology for further recommendations dilaudid prn iV for breakthrough pain Time Spent With Patient Time with patient: 25 - 35 minutes Subjective Date/time seen: 03/24/25 10:14 Interval history: 59-year-old female who is wheelchair-bound due to incomplete paraplegia with history of urostomy (2 years ago performed at [facility]), irritable bowel, afib, hypertension, dyslipidemia, stroke, obstructive sleep apnea, depression, and anxiety presented to the hospital with complaints of suprapubic pain. Assuming care. Patient is pleasant sitting in bed with family at bedside. She continues to endorse left flank pain is radiating down to her groin that she describes as a pressure/burning. Her antibiotics were escalated to linezolid. She reports feeling a bit light headed. NOted losartan 100 mg at hs, metoprolol, lasix. she is c/o abd pain that had been present since admission and has not gotten better at all. 03/24 pt is seen and examined. CT scan reviewed- Bilateral hydronephrosis. Review of Systems Review of Systems: All systems reviewed & are unremarkable except as noted in HPI and below Exam Narrative: General: female in no acute respiratory distress who is nontoxic appearing, sitting up in bed, very pleasant. HEENT: Normocephalic. Atraumatic. Extraocular movement intact. Sclera clear and anicteric. No facial asymmetry. Chest: Lungs are clear to auscultation bilaterally. CV: Heart was regular rate and rhythm. Abd: Abdomen was soft. Nontender. Nondistended. Positive bowel sounds. Urostomy bag in place with clear straw colored urine. No drainage noted at ostomy site. Objective Data Vital Signs Vital Signs: Vital Signs - 24 hr 03/23/25 12:00 03/23/25 18:54 03/23/25 19:49 Temperature 97.1 F L 97.4 F L 98.1 F Pulse Rate 70 67 69 Respiratory Rate 16 18 17 Blood Pressure 128/61 121/63 122/71 Pulse Oximetry 95 98 94 Oxygen Delivery Fraction of Inspired Oxygen 03/23/25 20:00 03/23/25 20:48 03/23/25 20:48 Temperature Pulse Rate 50 L 50 L Respiratory Rate Blood Pressure Pulse Oximetry 99 99 99 Oxygen Delivery CPAP Room Air CPAP Fraction of Inspired Oxygen 21 03/23/25 23:30 03/24/25 02:20 03/24/25 03:43 Temperature 98.0 F 97.9 F Pulse Rate 67 69 Respiratory Rate 18 17 Blood Pressure 104/45 L 111/64 Pulse Oximetry 96 96 Oxygen Delivery Room Air Fraction of Inspired Oxygen 03/24/25 09:54 Temperature Pulse Rate Respiratory Rate Blood Pressure 101/69 Pulse Oximetry Oxygen Delivery Fraction of Inspired Oxygen Intake/Output Intake/Output: Intake & Output 03/21/25 03/22/25 03/23/25 03/24/25 23:59 23:59 23:59 23:59 Intake Total 770 1520 1720 100 Output Total 2700 4275 3700 1999 Balance -6395 -2397 -1979 -295 Meds/Results Medications: Active Medications Generic Name Dose Route Start Last Admin Trade Name Freq PRN Reason Stop Dose Admin Hydrocodone Bitart/Acetaminophen 1 tab 03/22/25 15:27 03/23/25 01:18 Hydrocodone/Acetaminophen (*Crx) 7.5-325 Mg Tablet PO 1 tab Q6H PRN Administration Pain 4-6 Hydrocodone Bitart/Acetaminophen 1 tab 03/22/25 15:27 03/24/25 09:54 Hydrocodone/Acetaminophen (*Crx) 10-325 Mg Tablet PO 1 tab Q6H PRN Administration Pain Rated 7-10 Alprazolam 0.25 mg 03/20/25 19:49 03/24/25 09:56 Alprazolam (*Crx) 0.25 Mg Tablet PO 0.25 mg TID PRN Administration Anxiety Aspirin 81 mg 03/21/25 09:00 03/24/25 09:55 Aspirin 81 Mg Enteric Tablet PO 81 mg DAILY ANA Administration Atorvastatin Calcium 10 mg 03/21/25 09:00 03/24/25 09:56 Atorvastatin 10 Mg Tablet PO 10 mg DAILY ANA Administration Cyclobenzaprine HCl 10 mg 03/21/25 09:00 03/24/25 09:56 Cyclobenzaprine Hcl 10 Mg Tablet PO 10 mg TID ANA Administration Diclofenac Sodium 1 applic 03/20/25 21:00 03/24/25 09:56 Diclofenac Sodium 1% 100 Gm Gel (*Bkc) TOPICAL 1 applic QID ANA Administration Diphenhydramine HCl 25 mg 03/21/25 11:48 03/24/25 09:55 Diphenhydramine Hcl Cap 25 Mg Capsule PO 25 mg Q6H PRN Administration Itching Enoxaparin Sodium 40 mg 03/22/25 09:00 03/24/25 09:56 Enoxaparin 40 Mg/0.4 Ml Syringe SUB-Q 40 mg DAILY ANA Administration Escitalopram Oxalate 20 mg 03/20/25 21:00 03/23/25 20:31 Escitalopram Oxalate 10 Mg Tablet PO 20 mg HS ANA Administration Furosemide 20 mg 03/21/25 09:00 03/24/25 10:03 Furosemide 20 Mg Tablet BY MOUTH Not Given QAM ANA Ceftriaxone Sodium 1 gm/ 50 mls @ 100 mls/hr 03/21/25 16:00 03/23/25 15:08 Sodium Chloride IVPB 100 mls/hr Q24H ANA Administration Losartan Potassium 100 mg 03/21/25 21:00 03/23/25 20:31 Losartan Potassium 100 Mg Tablet PO 100 mg HS ANA Administration Metoprolol Succinate 25 mg 03/21/25 09:00 03/24/25 10:03 Metoprolol Succinate Ext Rel 25 Mg Tabcr PO Not Given DAILY ANA Ondansetron HCl 4 mg 03/20/25 16:28 Ondansetron Inj 4 Mg/2 Ml Vial IV PUSH Q4H PRN Nausea Polyethylene Glycol 17 gm 03/23/25 13:08 03/24/25 09:56 Polyethylene Glycol 3350 17 Gm Powd.Pack PO 17 gm QAM PRN Administration Constipation Ropinirole HCl 1 mg 03/21/25 21:00 03/23/25 20:31 Ropinirole Hcl 1 Mg Tablet PO 1 mg HS ANA Administration Ropinirole HCl 1 mg 03/22/25 17:00 03/23/25 16:14 Ropinirole Hcl 1 Mg Tablet PO 1 mg 1700 ANA Administration Zolpidem Tartrate 5 mg 03/21/25 18:38 03/23/25 20:31 Zolpidem Tartrate (*Crx) 5 Mg Tablet PO 5 mg HS PRN Administration Insomnia Radiology Results: ITS Impressions Abdomen/Pelvis CT 03/24/25 09:43 IMPRESSION: 1. No acute findings to account for pain. 2. Bilateral hydronephrosis but no obstruction identified. Labs Labs: Laboratory Results - last 24 hr 03/24/25 04:40 WBC 8.1 RBC 4.20 Hgb 11.5 L Hct 35.8 L MCV 85.2 MCH 27.4 MCHC 32.1 RDW 14.1 Plt Count 205 MPV 10.0 Immature Gran % (Auto) 0.6 H Neut % (Auto) 60.5 Lymph % (Auto) 27.9 [place] % (Auto) 7.9 Eos % (Auto) 2.1 Baso % (Auto) 1.0 Lymph # (Auto) 2.25 [place] # (Auto) 0.6 Eos # (Auto) 0.2 Baso # (Auto) 0.1 Abs Immat Gran (auto) 0.05 H Absolute Neuts (auto) 4.9 Absolute Nucleated RBC 0.000 Nucleated RBC % 0.0 Sodium 134 L Potassium 3.8 Chloride 101 Carbon Dioxide 30 Anion Gap 3 L BUN 12 Creatinine 0.76 Estim Creat Clear Calc 91 Estimated GFR > 60 Glucose 100 Calcium 8.1 L Total Bilirubin 0.4 AST 22 ALT 19 Alkaline Phosphatase 91 Total Protein 6.4 Albumin 3.4 L Quality VTE Prophylaxis VTE prophylaxis: mechanical ordered and pharmacologic ordered
[2025-03-24 12:00] VITALS: BP 106/63; PULSE 75; RESP 16; TEMP 36.2; O2SAT 94
[2025-03-24] MEDS: HYDROmorphone HCL INJ (*CRX) 1 MG/ML SYR 0.5 MG IV PUSH (13:54)
[2025-03-24 16:00] VITALS: BP 118/46
[2025-03-24] MEDS: cefTRIAXone 1 GM in SODIUM CHLORIDE 0.9% IV 50 ML 100 ML IVPB (16:22)
--- NOTE | 2025-03-24 16:31 | WPDURCON ---
Assessment and Plan Assessment and plan (1) Bilateral hydronephrosis: Code(s): N13.30 - Unspecified hydronephrosis Status: Acute (2) Urinary tract infection: Code(s): N39.0 - Urinary tract infection, site not specified Status: Acute (3) History of ileal conduit: Code(s): Z98.890 - Other specified postprocedural states Status: Acute Plan -urostomy (2 years ago performed at [facility]) Changes the bag herself, changed 03/21 - UA: Cloudy appearance with 1+ blood, positive nitrates, 2+ leukocytes, 6-10 RBC, 21-50 WBC, and 4+ bacteria. - UC obtained on 03/20: Pending. culture driven antibiotics per primary service. - started on Rocephin on 03/20 and linezolid 03/22 -ct ap shows No acute findings to account for pain. Bilateral hydronephrosis but no obstruction identified. this was also identified in 2022. Due to the changes in anatomy post cystectomy, the hydronephrosis is a typical finding and is reflux hydro. The kidney function is wnl. -Patient to continue routine maintenance of ostomy. No changes necessary at this karishma. -we will follow peripherally. please contact us if needed. -This case was discussed with Dr. Terrell. Urology Consult Note HPI Date Seen: 03/25/25 Requesting Physician: Gerhard Carmona MD Primary Care Provider: Panchito Walters DO Consult Narrative Narrative: Angelina Mcnulyt is a 59 year old female who is wheelchair-bound due to incomplete paraplegia with history of [facility]rost[facility] ([facility]), irritable bowel, afib, hypertension, dyslipidemia, stroke, obstructive sleep apnea, depression, and anxiety presented to the hospital with complaints of suprapubic pain. Patient is pleasant sitting up comfortably in bed. Review of Systems Review of Systems: All systems reviewed & are unremarkable except as noted in HPI and below PMFSH Past Medical History Medical History (Updated 03/24/25 @ 10:15 by Roslyn Tapia APRN) Brain TIA multiple BMI 33.0-33.9,adult Insomnia Paroxysmal atrial fibrillation Gastroesophageal reflux disease Hyperlipidemia patient states previously but recently reported as controlled Post traumatic stress disorder Degenerative disc disease Incomplete paraplegia Sleep apnea History of MRSA infection Depression Anemia Fibromyalgia Scoliosis Arthritis Irritable bowel Hemorrhoids Asthma Anxiety Obesity (BMI 30-39.9) Stroke Hypertension Allergies Surgical History Surgical History (Updated 03/22/25 @ 17:06 by Venessa Salas PA-C) S/P insertion of spinal cord stimulator History of tonsillectomy History of total cystectomy History of hernia repair History of cholecystectomy History of appendectomy History of cardiac catheterization History of ileal conduit History of back surgery Family History Family History Father Hypertension Cancer Mother Cancer Hypertension Anxiety Acute myocardial infarction <65yo Grandparent Cancer Sibling Hypertension A-fib Acute myocardial infarction <65yo Sibling Acute myocardial infarction <65yo Social History Social History Social History: Surrogate medical decision maker: Vicenta Mcnulty. Code status: Full code. Smoking status: Never smoker Second hand tobacco smoke exposure: Yes Alcohol intake: never Substance use: never Substance use type: does not use Do You Feel Safe in your Home?: Yes Lack of Transportation: No Lack of Food: Never True Current Housing: I Have Housing Concerned About Future Housing: No Difficulty Paying Gas/Electric Bills: No Difficulty Paying for Meds: No Currently Unemployed: No Education: High School Diploma/GED Difficulty w/ Childcare or Family Care: No Living arrangements: with family Occupation/Education: unemployed Gender identity (if verbalized by the patient): Female Spiritual care concerns: No Meds Home Medications and Allergies Home Medications ?Medication ?Instructions ?Recorded ?Confirmed ?Type alprazolam 0.25 mg tablet 0.25 mg PO TID PRN anxiety #60 tabs 02/17/23 03/20/25 Rx diclofenac sodium 1 % topical gel 2 g topical QID #100 grams 02/17/23 03/20/25 Rx (Voltaren Arthritis Pain) olanzapine 5 mg tablet 5 mg PO DAILY #30 tabs 02/17/23 03/20/25 Rx zolpidem 5 mg tablet (Ambien) 5 mg PO QHS #30 tabs 02/17/23 03/20/25 Rx atorvastatin 10 mg tablet 10 mg PO DAILY #90 tabs 08/22/23 03/20/25 Rx aspirin 81 mg tablet,delayed 81 mg PO DAILY #90 tabs 04/15/24 03/20/25 Rx release (Adult Low Dose Aspirin) ondansetron 4 mg disintegrating 4 mg PO Q8H PRN nausea and 05/11/24 03/20/25 Rx tablet vomiting #20 tabs ibuprofen 600 mg tablet 600 mg PO TID PRN pain #30 tabs 11/29/24 03/20/25 Rx ropinirole 0.5 mg tablet 1 mg PO BID 12/13/24 03/20/25 History losartan 100 mg tablet 100 mg PO HS 02/01/25 03/20/25 History polyethylene glycol 3350 17 17 g PO DAILY PRN constipation 02/01/25 03/20/25 History gram/dose oral powder (Miralax) hydrocodone 7.5 mg-acetaminophen 1 tablet PO Q8H PRN pain #30 tabs 03/04/25 03/20/25 Rx 325 mg tablet furosemide 20 mg tablet See Rx Instructions .Route 03/07/25 03/20/25 Rx .COMPLEX #90 tabs metoprolol succinate 25 mg 25 mg PO DAILY #90 tabs 03/07/25 03/20/25 Rx tablet,extended release 24 hr escitalopram oxalate 20 mg tablet 20 mg PO HS 03/20/25 03/20/25 History cyclobenzaprine 10 mg tablet 10 mg PO TID #60 tabs 03/24/25 Rx Allergies Allergy/AdvReac Type Severity Reaction Status Date / Time Penicillins Allergy Intermediate Hives Verified 03/20/25 13:00 Sulfa (Sulfonamide Allergy Intermediate Swelling Verified 03/20/25 13:00 Antibiotics) of Lip/Tongue/Throat vancomycin Allergy Intermediate Hives Verified 03/20/25 13:00 adhesive tape Allergy Mild Blister Verified 03/20/25 13:00 Latex, Natural Rubber Allergy Mild Itching Verified 03/20/25 13:00 Vital Signs Vital Signs - 24 hr 03/23/25 18:54 03/23/25 19:49 03/23/25 20:00 Temperature 97.4 F L 98.1 F Pulse Rate 67 69 Respiratory Rate 18 17 Blood Pressure 121/63 122/71 Pulse Oximetry 98 94 99 Oxygen Delivery CPAP Fraction of Inspired Oxygen 03/23/25 20:48 03/23/25 20:48 03/23/25 23:30 Temperature 98.0 F Pulse Rate 50 L 50 L 67 Respiratory Rate 18 Blood Pressure 104/45 L Pulse Oximetry 99 99 96 Oxygen Delivery Room Air CPAP Fraction of Inspired Oxygen 21 03/24/25 02:20 03/24/25 03:43 03/24/25 09:50 Temperature 97.9 F Pulse Rate 69 Respiratory Rate 17 Blood Pressure 111/64 Pulse Oximetry 96 Oxygen Delivery Room Air Room Air Fraction of Inspired Oxygen 03/24/25 09:54 03/24/25 12:00 Temperature 97.2 F L Pulse Rate 75 Respiratory Rate 16 Blood Pressure 101/69 106/63 Pulse Oximetry 94 Oxygen Delivery Fraction of Inspired Oxygen Exam Const: General: comfortable and no acute distress Eyes: General: appearance normal, both eyes and all related structures Resp: Effort & Inspection: normal respiratory effort Urinary Catheter: Urinary Catheter: other (urostomy bag with clear yellow urine) Skin: General skin exam: normal color Neuro: Speech: normal speech Results Labs 03/24/25 04:40 03/24/25 04:40 Labs: Short CBC 03/24/25 Range/Units 04:40 WBC 8.1 (4.5-10.0) K/mm3 Hgb 11.5 L (12.0-15.0) g/dL Hct 35.8 L (37.0-47.0) % Plt Count 205 (150-375) k/mm3 BMP 03/24/25 04:40 Sodium 134 L Potassium 3.8 Chloride 101 Carbon Dioxide 30 BUN 12 Creatinine 0.76 Glucose 100 Calcium 8.1 L Liver Function 03/24/25 Range/Units 04:40 Total Bilirubin 0.4 (0.2-1.3) mg/dL AST 22 (14-36) U/L ALT 19 (6-35) U/L Alkaline Phosphatase 91 (38-126) U/L Albumin 3.4 L (3.5-5.1) g/dL
[2025-03-24 20:00] VITALS: BP 127/72; PULSE 75; RESP 20; TEMP 36.4; O2SAT 95
[2025-03-24] MEDS: ESCITALOPRAM OXALATE 10 MG TABLET 20 MG PO (20:57)
[2025-03-24] MEDS: ZOLPIDEM TARTRATE (*CRX) 5 MG TABLET PO (21:13)
[2025-03-25] VITALS (8 sets, daily range): BP systolic 102–146; BP diastolic 51–75; PULSE 59–97; RESP 16–20; TEMP 36.3–36.5; O2SAT 93–97
[2025-03-25] MEDS: HYDROmorphone HCL INJ (*CRX) 1 MG/ML SYR 0.5 MG IV PUSH ×2 (04:24→12:14)
[2025-03-25 05:05] LABS: Hematocrit 38.4 % (37.0-47.0); Hemoglobin 12.6 g/dL (12.0-15.0); Immature Granulocyte Percent A 0.8 % (0-0.5); Lymphocytes Absolute Auto 1.89 K/mm3 (0.9-3.2); Mean Corpuscular HGB Conc 32.8 g/dl (32-36); Mean Corpuscular Hemoglobin 28.0 pg (26-34); Mean Corpuscular Volume 85.3 fl (80-100); Nucleated Red Blood Cells Absolute Auto 0.000 K/mm3 (0.0-0.012); Nucleated Red Blood Cells Perc 0.0 % (0.0-0.2); Platelet Count Result 205 k/mm3 (150-375); Red Blood Count 4.50 M/mm3 (4.2-5.4); White Blood Count 7.8 K/mm3 (4.5-10.0)
[2025-03-25 05:21] LABS: Alanine Aminotransferase 22 U/L (6-35); Albumin Level 3.6 g/dL (3.5-5.1); Alkaline Phosphatase 98 U/L (38-126); Anion Gap 7 mmol/L (4-12); Aspartate Amino Transferase 23 U/L (14-36); Bilirubin,Total 0.5 mg/dL (0.2-1.3); Blood Urea Nitrogen 10 mg/dL (7-17); Calcium 8.4 mg/dL (8.4-10.2); Carbon Dioxide 26 mmol/L (22-30); Chloride 100 mmol/L (98-107); Estimated CRCL calculation 102 ml/min; Estimated Glomerular Filt Rate > 60; Glucose 114 mg/dL (65-110); Potassium 4.5 mmol/L (3.4-5.0); Sodium 133 mmol/L (137-145); Total Protein 6.5 g/dL (6.3-8.2)
[2025-03-25] MEDS: FUROSEMIDE 20 MG TABLET BY MOUTH (09:04)
[2025-03-25] MEDS: CYCLOBENZAPRINE HCL 10 MG TABLET PO ×3 (09:04→16:38)
[2025-03-25] MEDS: METOPROLOL SUCCINATE EXT REL 25 MG TABCR PO (09:04)
[2025-03-25] MEDS: ALPRAZolam (*CRX) 0.25 MG TABLET PO ×2 (09:04→16:39)
[2025-03-25] MEDS: ASPIRIN 81 MG ENTERIC TABLET PO (09:04)
[2025-03-25] MEDS: ATORVASTATIN 10 MG TABLET PO (09:04)
[2025-03-25] MEDS: HYDROcodone/acetaminophen (*CRX) 10-325 MG TABLET 1 TAB PO ×2 (09:04→16:38)
[2025-03-25] MEDS: DICLOFENAC SODIUM 1% 100 GM GEL (*BKC) 1 APPLIC TOPICAL ×4 (09:05→21:18)
[2025-03-25] MEDS: ENOXAPARIN 40 MG/0.4 ML SYRINGE SUB-Q (09:05)
[2025-03-25] MEDS: LACTULOSE 20 GM/30 ML UDC PO (12:47)
[2025-03-25] MEDS: BISACODYL 10 MG SUPPOSITORY RECTAL (12:47)
--- NOTE | 2025-03-25 15:46 | P.PNIM_ITS ---
Progress Note: A&P Assessment and Plan (1) Urinary tract infection: Qualifiers: Hematuria presence: without hematuria Urinary tract infection type: acute cystitis Qualified Code(s): N30.00 - Acute cystitis without hematuria Code(s): N39.0 - Urinary tract infection, site not specified Status: Acute Assessment and Plan: - History of urostomy (2 years ago performed at [facility]) Changes the bag herself, plan to change today 03/21 - UA: Cloudy appearance with 1+ blood, positive nitrates, 2+ leukocytes, 6-10 RBC, 21-50 WBC, and 4+ bacteria. - UC obtained on 03/20: Pending -blood cultures obtained on 03/20: NGTD - previous micro reviewed 12/13/2024: Klebsiella oxytoca pansensitive 10/18/2024: Klebsiella oxytoca pansensitive and enterococcus resistant to ampicillin and Macrobid - started on Rocephin on 03/20 and linezolid 03/22 Patient continues to endorse dysuria that has worsened since admission. Given prior enterococcus and that patient is not improving on the Rocephin will start linezolid to cover. Discussed with [facility] pharmacy. Monitor for serotonin syndrome. BC prelim negative follow urine culture will order repeat CT abdomen pelvis w con to reeval for ongoing abl pain stop linezolid and continue rocephin until sensitives are back waiting for sensitivities 03/25 still waiting for sensitivities continue antibiotics (2) Pancreatic lesion: Code(s): K86.9 - Disease of pancreas, unspecified Status: Acute Assessment and Plan: Paternal history of pancreatic cancer CT abdomen/pelvis: pancreatic tail there is a cystic lesion 1 x 1 cm Previously seen on 03/20/23: Couple cystic lesions at the tail of the pancreas the larger measuring 1.2 cm. Redemonstrated several times throughout the years with the most recent on 01/31/2025: Remains stable Follow up with primary care provider for annual pre and postcontrast MRI Per patient this has already been set up by PCP (3) Hypertension: Qualifiers: Hypertension type: primary hypertension Qualified Code(s): I10 - Essential (primary) hypertension Code(s): I10 - Essential (primary) hypertension Status: Chronic Assessment and Plan: Chronic, continue home medication - lasix 20 mg daily - losartan 100 mg daily - metoprolol 25 mg daily - blood pressures reviewed and remain stable, continue to monitor noted somewhat hypotensive. Will hold lasix this am- as no leg swelling, no sob. OK to give metoprolol. will re eval losartan at bedtime. (4) Depression with anxiety: Code(s): F41.8 - Other specified anxiety disorders Status: Acute Assessment and Plan: -continue home medication p.r.n. as needed for anxiety (5) Paraplegia: Code(s): G82.20 - Paraplegia, unspecified Status: Acute Assessment and Plan: Chronic, s/p spine stimulator placed [address] Barajas at [facility] Continue home medications (6) YAJAIRA (obstructive sleep apnea): Code(s): G47.33 - Obstructive sleep apnea (adult) (pediatric) Status: Acute Assessment and Plan: Continue CPAP (7) Bilateral hydronephrosis: Code(s): N13.30 - Unspecified hydronephrosis Status: Acute Assessment and Plan: per ct scan will consult urology for further recommendations dilaudid prn iV for breakthrough pain urology saw pt=- no acute concerns, acute intervention needed. (8) Constipation: Code(s): K59.00 - Constipation, unspecified Status: Acute Assessment and Plan: had been taking miralax and prune juice and did not want to escalate regimen agreeable to add more- will add dulcolax and lactulose if no result, will add enema as constipation may contribute to abd pain Time Spent With Patient Time with patient: Greater than 35 minutes Subjective Date/time seen: 03/25/25 15:46 Interval history: 59-year-old female who is wheelchair-bound due to incomplete paraplegia with history of urostomy (2 years ago performed at [facility]), irritable bowel, afib, hypertension, dyslipidemia, stroke, obstructive sleep apnea, depression, and anxiety presented to the hospital with complaints of suprapubic pain. Assuming care. Patient is pleasant sitting in bed with family at bedside. She continues to endorse left flank pain is radiating down to her groin that she describes as a pressure/burning. Her antibiotics were escalated to linezolid. She reports feeling a bit light headed. NOted losartan 100 mg at hs, metoprolol, lasix. she is c/o abd pain that had been present since admission and has not gotten better at all. 03/24 pt is seen and examined. CT scan reviewed- Bilateral hydronephrosis. 03/25 urology was consulted- no acute concerns or intervention needed. Will continue with antibiotics and increase bowel regimen as constipation may be contributing to abd pain. Pt denies nausea or vomiting, no chills. Review of Systems Review of Systems: All systems reviewed & are unremarkable except as noted in HPI and below Exam Narrative: General: female in no acute respiratory distress who is nontoxic appearing, sitting up in bed, very pleasant. HEENT: Normocephalic. Atraumatic. Extraocular movement intact. Sclera clear and anicteric. No facial asymmetry. Chest: Lungs are clear to auscultation bilaterally. CV: Heart was regular rate and rhythm. Abd: Abdomen was soft. Nontender. Nondistended. Positive bowel sounds. Urostomy bag in place with clear straw colored urine. No drainage noted at ostomy site. Objective Data Vital Signs Vital Signs: Vital Signs - 24 hr 03/24/25 16:00 03/24/25 20:00 03/24/25 20:00 Temperature 97.6 F Pulse Rate 75 Respiratory Rate 20 Blood Pressure 118/46 L 127/72 Pulse Oximetry 95 Oxygen Delivery CPAP 03/24/25 21:08 03/25/25 00:00 03/25/25 01:55 Temperature 97.6 F Pulse Rate 81 Respiratory Rate 20 Blood Pressure 130/74 Pulse Oximetry 95 Oxygen Delivery CPAP CPAP 03/25/25 04:00 03/25/25 08:00 03/25/25 09:00 Temperature 97.7 F Pulse Rate 92 97 Respiratory Rate 20 18 Blood Pressure 116/58 L 146/75 H Pulse Oximetry 93 97 Oxygen Delivery Room Air 03/25/25 09:04 03/25/25 12:00 Temperature 97.5 F L Pulse Rate 97 84 Respiratory Rate 18 Blood Pressure 123/67 Pulse Oximetry 96 Oxygen Delivery Intake/Output Intake/Output: Intake & Output 03/22/25 03/23/25 03/24/25 03/25/25 23:59 23:59 23:59 23:59 Intake Total 1520 1770 1060 1190 Output Total 4275 3700 3500 1200 Balance -2755 -1930 -2440 -10 Meds/Results Medications: Active Medications Generic Name Dose Route Start Last Admin Trade Name Freq PRN Reason Stop Dose Admin Hydrocodone Bitart/Acetaminophen 1 tab 03/22/25 15:27 03/23/25 01:18 Hydrocodone/Acetaminophen (*Crx) 7.5-325 Mg Tablet PO 1 tab Q6H PRN Administration Pain 4-6 Hydrocodone Bitart/Acetaminophen 1 tab 03/22/25 15:27 03/25/25 09:04 Hydrocodone/Acetaminophen (*Crx) 10-325 Mg Tablet PO 1 tab Q6H PRN Administration Pain Rated 7-10 Alprazolam 0.25 mg 03/20/25 19:49 03/25/25 09:04 Alprazolam (*Crx) 0.25 Mg Tablet PO 0.25 mg TID PRN Administration Anxiety Aspirin 81 mg 03/21/25 09:00 03/25/25 09:04 Aspirin 81 Mg Enteric Tablet PO 81 mg DAILY ANA Administration Atorvastatin Calcium 10 mg 03/21/25 09:00 03/25/25 09:04 Atorvastatin 10 Mg Tablet PO 10 mg DAILY ANA Administration Cyclobenzaprine HCl 10 mg 03/21/25 09:00 03/25/25 12:14 Cyclobenzaprine Hcl 10 Mg Tablet PO 10 mg TID ANA Administration Diclofenac Sodium 1 applic 03/20/25 21:00 03/25/25 12:15 Diclofenac Sodium 1% 100 Gm Gel (*Bkc) TOPICAL 1 applic QID ANA Administration Diphenhydramine HCl 25 mg 03/21/25 11:48 03/24/25 16:23 Diphenhydramine Hcl Cap 25 Mg Capsule PO 25 mg Q6H PRN Administration Itching Enoxaparin Sodium 40 mg 03/22/25 09:00 03/25/25 09:05 Enoxaparin 40 Mg/0.4 Ml Syringe SUB-Q 40 mg DAILY ANA Administration Escitalopram Oxalate 20 mg 03/20/25 21:00 03/24/25 20:57 Escitalopram Oxalate 10 Mg Tablet PO 20 mg HS ANA Administration Furosemide 20 mg 03/21/25 09:00 03/25/25 09:04 Furosemide 20 Mg Tablet BY MOUTH 20 mg QAM ANA Administration Hydromorphone HCl 0.5 mg 03/24/25 13:44 03/25/25 12:14 Hydromorphone Hcl Inj (*Crx) 1 Mg/Ml Syr IV PUSH 0.5 mg Q4H PRN Administration Pain Rated 7-10 Ceftriaxone Sodium 1 gm/ 50 mls @ 100 mls/hr 03/21/25 16:00 03/24/25 16:22 Sodium Chloride IVPB 100 mls/hr Q24H ANA Administration Lactulose 20 gm 03/25/25 12:20 03/25/25 12:47 Lactulose 20 Gm/30 Ml Udc PO 20 gm QAM ANA Administration Losartan Potassium 100 mg 03/21/25 21:00 03/24/25 20:57 Losartan Potassium 100 Mg Tablet PO Not Given HS ANA Metoprolol Succinate 25 mg 03/21/25 09:00 03/25/25 09:04 Metoprolol Succinate Ext Rel 25 Mg Tabcr PO 25 mg DAILY ANA Administration Ondansetron HCl 4 mg 03/20/25 16:28 Ondansetron Inj 4 Mg/2 Ml Vial IV PUSH Q4H PRN Nausea Polyethylene Glycol 17 gm 03/23/25 13:08 03/25/25 09:05 Polyethylene Glycol 3350 17 Gm Powd.Pack PO 17 gm QAM PRN Administration Constipation Ropinirole HCl 1 mg 03/21/25 21:00 03/24/25 20:57 Ropinirole Hcl 1 Mg Tablet PO 1 mg HS ANA Administration Ropinirole HCl 1 mg 03/22/25 17:00 03/24/25 16:37 Ropinirole Hcl 1 Mg Tablet PO 1 mg 1700 ANA Administration Zolpidem Tartrate 5 mg 03/21/25 18:38 03/24/25 21:13 Zolpidem Tartrate (*Crx) 5 Mg Tablet PO 5 mg HS PRN Administration Insomnia Radiology Results: ITS Impressions Abdomen/Pelvis CT 03/24/25 09:43 IMPRESSION: 1. No acute findings to account for pain. 2. Bilateral hydronephrosis but no obstruction identified. Labs Labs: Laboratory Results - last 24 hr 03/25/25 04:26 WBC 7.8 RBC 4.50 Hgb 12.6 Hct 38.4 MCV 85.3 MCH 28.0 MCHC 32.8 RDW 14.5 Plt Count 205 MPV 10.0 Immature Gran % (Auto) 0.8 H Neut % (Auto) 65.0 Lymph % (Auto) 24.3 [place] % (Auto) 7.1 Eos % (Auto) 1.9 Baso % (Auto) 0.9 Lymph # (Auto) 1.89 [place] # (Auto) 0.6 Eos # (Auto) 0.2 Baso # (Auto) 0.1 Abs Immat Gran (auto) 0.06 H Absolute Neuts (auto) 5.1 Absolute Nucleated RBC 0.000 Nucleated RBC % 0.0 Sodium 133 L Potassium 4.5 Chloride 100 Carbon Dioxide 26 Anion Gap 7 BUN 10 Creatinine 0.67 L Estim Creat Clear Calc 102 Estimated GFR > 60 Glucose 114 H Calcium 8.4 Total Bilirubin 0.5 AST 23 ALT 22 Alkaline Phosphatase 98 Total Protein 6.5 Albumin 3.6 Quality VTE Prophylaxis VTE prophylaxis: mechanical ordered and pharmacologic ordered
[2025-03-25] MEDS: MEROPENEM 1 GM in SODIUM CHLORIDE 0.9% IV 100 ML 200 ML IVPB ×2 (16:37→21:09)
[2025-03-25] MEDS: ZOLPIDEM TARTRATE (*CRX) 5 MG TABLET PO (21:17)
[2025-03-25] MEDS: ESCITALOPRAM OXALATE 10 MG TABLET 20 MG PO (21:18)
[2025-03-26] VITALS (7 sets, daily range): BP systolic 101–134; BP diastolic 60–85; PULSE 60–82; RESP 14–20; TEMP 36.1–36.4; O2SAT 93–100
[2025-03-26] MEDS: HYDROcodone/acetaminophen (*CRX) 10-325 MG TABLET 1 TAB PO ×3 (00:25→17:18)
[2025-03-26] MEDS: ONDANSETRON INJ 4 MG/2 ML VIAL IV PUSH (00:25)
[2025-03-26] MEDS: WATER FOR IRRIGATION, STERILE 1,000 ML BOTTLE 1000 ML (01:00)
[2025-03-26 05:39] LABS: Hematocrit 34.4 % (37.0-47.0); Hemoglobin 11.2 g/dL (12.0-15.0); Immature Granulocyte Percent A 0.5 % (0-0.5); Lymphocytes Absolute Auto 1.99 K/mm3 (0.9-3.2); Mean Corpuscular HGB Conc 32.6 g/dl (32-36); Mean Corpuscular Hemoglobin 28.3 pg (26-34); Mean Corpuscular Volume 86.9 fl (80-100); Nucleated Red Blood Cells Absolute Auto 0.000 K/mm3 (0.0-0.012); Nucleated Red Blood Cells Perc 0.0 % (0.0-0.2); Platelet Count Result 192 k/mm3 (150-375); Red Blood Count 3.96 M/mm3 (4.2-5.4); White Blood Count 6.5 K/mm3 (4.5-10.0)
[2025-03-26 06:05] LABS: Alanine Aminotransferase 19 U/L (6-35); Albumin Level 3.3 g/dL (3.5-5.1); Alkaline Phosphatase 86 U/L (38-126); Anion Gap 2 mmol/L (4-12); Aspartate Amino Transferase 19 U/L (14-36); Bilirubin,Total 0.5 mg/dL (0.2-1.3); Blood Urea Nitrogen 8 mg/dL (7-17); Calcium 8.1 mg/dL (8.4-10.2); Carbon Dioxide 32 mmol/L (22-30); Chloride 100 mmol/L (98-107); Estimated CRCL calculation 110 ml/min; Estimated Glomerular Filt Rate > 60; Glucose 109 mg/dL (65-110); Potassium 4.1 mmol/L (3.4-5.0); Sodium 134 mmol/L (137-145); Total Protein 6.2 g/dL (6.3-8.2)
[2025-03-26] MEDS: MEROPENEM 1 GM in SODIUM CHLORIDE 0.9% IV 100 ML 200 ML IVPB ×3 (06:09→21:52)
[2025-03-26] MEDS: CYCLOBENZAPRINE HCL 10 MG TABLET PO ×3 (09:47→17:18)
[2025-03-26] MEDS: ASPIRIN 81 MG ENTERIC TABLET PO (09:47)
[2025-03-26] MEDS: METOPROLOL SUCCINATE EXT REL 25 MG TABCR PO (09:47)
[2025-03-26] MEDS: FUROSEMIDE 20 MG TABLET BY MOUTH (09:47)
[2025-03-26] MEDS: ALPRAZolam (*CRX) 0.25 MG TABLET PO (09:47)
[2025-03-26] MEDS: ENOXAPARIN 40 MG/0.4 ML SYRINGE SUB-Q (09:47)
[2025-03-26] MEDS: DICLOFENAC SODIUM 1% 100 GM GEL (*BKC) 1 APPLIC TOPICAL ×4 (09:48→21:51)
[2025-03-26] MEDS: LACTULOSE 20 GM/30 ML UDC PO ×3 (09:48→17:18)
--- NOTE | 2025-03-26 09:51 | PM.IMPN ---
Progress Note: A&P Assessment and Plan (1) Urinary tract infection: Qualifiers: Hematuria presence: without hematuria Urinary tract infection type: acute cystitis Qualified Code(s): N30.00 - Acute cystitis without hematuria Code(s): N39.0 - Urinary tract infection, site not specified Status: Acute Assessment and Plan: - History of urostomy (2 years ago performed at [facility]) Changes the bag herself, plan to change today 03/21 - UA: Cloudy appearance with 1+ blood, positive nitrates, 2+ leukocytes, 6-10 RBC, 21-50 WBC, and 4+ bacteria. - UC obtained on 03/20: Pending -blood cultures obtained on 03/20: NGTD - previous micro reviewed 12/13/2024: Klebsiella oxytoca pansensitive 10/18/2024: Klebsiella oxytoca pansensitive and enterococcus resistant to ampicillin and Macrobid - started on Rocephin on 03/20 and linezolid 03/22 Patient continues to endorse dysuria that has worsened since admission. Given prior enterococcus and that patient is not improving on the Rocephin will start linezolid to cover. Discussed with ID pharmacy. Monitor for serotonin syndrome. BC prelim negative follow urine culture will order repeat CT abdomen pelvis w con to reeval for ongoing abl pain stop linezolid and continue rocephin until sensitives are back waiting for sensitivities 03/25 still waiting for sensitivities continue antibiotics 03/26 sensitivities are back- ecoli esbl. Discussed iw ID pharm- Rocephin stopped and meropenem started-7 days-start 03/25 (2) Pancreatic lesion: Code(s): K86.9 - Disease of pancreas, unspecified Status: Acute Assessment and Plan: Paternal history of pancreatic cancer CT abdomen/pelvis: pancreatic tail there is a cystic lesion 1 x 1 cm Previously seen on 03/20/23: Couple cystic lesions at the tail of the pancreas the larger measuring 1.2 cm. Redemonstrated several times throughout the years with the most recent on 01/31/2025: Remains stable Follow up with primary care provider for annual pre and postcontrast MRI Per patient this has already been set up by PCP (3) Hypertension: Qualifiers: Hypertension type: primary hypertension Qualified Code(s): I10 - Essential (primary) hypertension Code(s): I10 - Essential (primary) hypertension Status: Chronic Assessment and Plan: Chronic, continue home medication - lasix 20 mg daily - losartan 100 mg daily - metoprolol 25 mg daily - blood pressures reviewed and remain stable, continue to monitor noted somewhat hypotensive. Will hold lasix this am- as no leg swelling, no sob. OK to give metoprolol. will re eval losartan at bedtime. 03/26 BP reviewed and stable (4) Depression with anxiety: Code(s): F41.8 - Other specified anxiety disorders Status: Acute Assessment and Plan: -continue home medication p.r.n. as needed for anxiety (5) Paraplegia: Code(s): G82.20 - Paraplegia, unspecified Status: Acute Assessment and Plan: Chronic, s/p spine stimulator placed [address] Barajas at [facility] Continue home medications (6) YAJAIRA (obstructive sleep apnea): Code(s): G47.33 - Obstructive sleep apnea (adult) (pediatric) Status: Acute Assessment and Plan: Continue CPAP (7) Bilateral hydronephrosis: Code(s): N13.30 - Unspecified hydronephrosis Status: Acute Assessment and Plan: per ct scan will consult urology for further recommendations dilaudid prn iV for breakthrough pain urology saw pt=- no acute concerns, acute intervention needed. (8) Constipation: Code(s): K59.00 - Constipation, unspecified Status: Acute Assessment and Plan: had been taking miralax and prune juice and did not want to escalate regimen agreeable to add more- will add dulcolax and lactulose if no result, will add enema as constipation may contribute to abd pain ------lactulose q6, miralax Time Spent With Patient Time with patient: Greater than 35 minutes Subjective Date/time seen: 03/26/25 09:51 Interval history: 59-year-old female who is wheelchair-bound due to incomplete paraplegia with history of [facility] ([facility]), irritable bowel, afib, hypertension, dyslipidemia, stroke, obstructive sleep apnea, depression, and anxiety presented to the hospital with complaints of suprapubic pain. Assuming care. Patient is pleasant sitting in bed with family at bedside. She continues to endorse left flank pain is radiating down to her groin that she describes as a pressure/burning. Her antibiotics were escalated to linezolid. She reports feeling a bit light headed. NOted losartan 100 mg at hs, metoprolol, lasix. she is c/o abd pain that had been present since admission and has not gotten better at all. 03/24 pt is seen and examined. CT scan reviewed- Bilateral hydronephrosis. 03/25 urology was consulted- no acute concerns or intervention needed. Will continue with antibiotics and increase bowel regimen as constipation may be contributing to abd pain. Pt denies nausea or vomiting, no chills. 03/26 antibiotics switched to meropenem still no bm-on lactulose and enema if needed. pain is a bit better Review of Systems Review of Systems: All systems reviewed & are unremarkable except as noted in HPI and below Exam Narrative: General: female in no acute respiratory distress who is nontoxic appearing, sitting up in bed, very pleasant. HEENT: Normocephalic. Atraumatic. Extraocular movement intact. Sclera clear and anicteric. No facial asymmetry. Chest: Lungs are clear to auscultation bilaterally. CV: Heart was regular rate and rhythm. Abd: Abdomen was soft. Nontender. Nondistended. Positive bowel sounds. Urostomy bag in place with clear straw colored urine. No drainage noted at ostomy site. Objective Data Vital Signs Vital Signs: Vital Signs - 24 hr 03/25/25 12:00 03/25/25 16:00 03/25/25 20:00 Temperature 97.5 F L 97.3 F L 97.7 F Pulse Rate 84 81 92 Respiratory Rate 18 18 16 Blood Pressure 123/67 117/61 102/51 L Pulse Oximetry 96 96 96 Oxygen Delivery 03/25/25 20:00 03/25/25 21:53 03/26/25 00:00 Temperature 97.5 F L Pulse Rate 59 L 66 Respiratory Rate 14 Blood Pressure 120/60 Pulse Oximetry 97 96 Oxygen Delivery CPAP CPAP 03/26/25 02:34 03/26/25 04:00 03/26/25 08:00 Temperature 96.9 F L Pulse Rate 60 75 Respiratory Rate 20 16 Blood Pressure 101/64 129/69 Pulse Oximetry 93 95 Oxygen Delivery CPAP 03/26/25 09:47 Temperature Pulse Rate 82 Respiratory Rate Blood Pressure Pulse Oximetry Oxygen Delivery Intake/Output Intake/Output: Intake & Output 03/23/25 03/24/25 03/25/25 03/26/25 23:59 23:59 23:59 23:59 Intake Total 1770 1060 1630 480 Output Total 3700 3500 4450 900 Balance -1930 -2440 -2820 -420 Meds/Results Medications: Active Medications Generic Name Dose Route Start Last Admin Trade Name Freq PRN Reason Stop Dose Admin Hydrocodone Bitart/Acetaminophen 1 tab 03/22/25 15:27 03/23/25 01:18 Hydrocodone/Acetaminophen (*Crx) 7.5-325 Mg Tablet PO 1 tab Q6H PRN Administration Pain 4-6 Hydrocodone Bitart/Acetaminophen 1 tab 03/22/25 15:27 03/26/25 09:47 Hydrocodone/Acetaminophen (*Crx) 10-325 Mg Tablet PO 1 tab Q6H PRN Administration Pain Rated 7-10 Alprazolam 0.25 mg 03/20/25 19:49 03/26/25 09:47 Alprazolam (*Crx) 0.25 Mg Tablet PO 0.25 mg TID PRN Administration Anxiety Aspirin 81 mg 03/21/25 09:00 03/26/25 09:47 Aspirin 81 Mg Enteric Tablet PO 81 mg DAILY ANA Administration Atorvastatin Calcium 10 mg 03/21/25 09:00 03/25/25 09:04 Atorvastatin 10 Mg Tablet PO 10 mg DAILY ANA Administration Cyclobenzaprine HCl 10 mg 03/21/25 09:00 03/26/25 09:47 Cyclobenzaprine Hcl 10 Mg Tablet PO 10 mg TID ANA Administration Diclofenac Sodium 1 applic 03/20/25 21:00 03/26/25 09:48 Diclofenac Sodium 1% 100 Gm Gel (*Bkc) TOPICAL 1 applic QID ANA Administration Diphenhydramine HCl 25 mg 03/21/25 11:48 03/24/25 16:23 Diphenhydramine Hcl Cap 25 Mg Capsule PO 25 mg Q6H PRN Administration Itching Enoxaparin Sodium 40 mg 03/22/25 09:00 03/26/25 09:47 Enoxaparin 40 Mg/0.4 Ml Syringe SUB-Q 40 mg DAILY ANA Administration Escitalopram Oxalate 20 mg 03/20/25 21:00 03/25/25 21:18 Escitalopram Oxalate 10 Mg Tablet PO 20 mg HS ANA Administration Furosemide 20 mg 03/21/25 09:00 03/26/25 09:47 Furosemide 20 Mg Tablet BY MOUTH 20 mg QAM ANA Administration Hydromorphone HCl 0.5 mg 03/24/25 13:44 03/25/25 12:14 Hydromorphone Hcl Inj (*Crx) 1 Mg/Ml Syr IV PUSH 0.5 mg Q4H PRN Administration Pain Rated 7-10 Meropenem 1 gm/ Sodium 100 mls @ 200 mls/hr 03/25/25 16:00 03/26/25 06:09 Chloride IVPB 04/01/25 06:29 200 mls/hr Q8HR ANA Administration Lactulose 20 gm 03/25/25 12:20 03/26/25 09:48 Lactulose 20 Gm/30 Ml Udc PO 20 gm QAM ANA Administration Losartan Potassium 100 mg 03/21/25 21:00 03/25/25 21:24 Losartan Potassium 100 Mg Tablet PO Not Given HS ANA Metoprolol Succinate 25 mg 03/21/25 09:00 03/26/25 09:47 Metoprolol Succinate Ext Rel 25 Mg Tabcr PO 25 mg DAILY ANA Administration Ondansetron HCl 4 mg 03/20/25 16:28 03/26/25 00:25 Ondansetron Inj 4 Mg/2 Ml Vial IV PUSH 4 mg Q4H PRN Administration Nausea Polyethylene Glycol 17 gm 03/23/25 13:08 03/26/25 09:48 Polyethylene Glycol 3350 17 Gm Powd.Pack PO 17 gm QAM PRN Administration Constipation Ropinirole HCl 1 mg 03/21/25 21:00 03/25/25 21:17 Ropinirole Hcl 1 Mg Tablet PO 1 mg HS NAA Administration Ropinirole HCl 1 mg 03/22/25 17:00 03/25/25 16:38 Ropinirole Hcl 1 Mg Tablet PO 1 mg 1700 ANA Administration Zolpidem Tartrate 5 mg 03/21/25 18:38 03/25/25 21:17 Zolpidem Tartrate (*Crx) 5 Mg Tablet PO 5 mg HS PRN Administration Insomnia Radiology Results: ITS Impressions Abdomen/Pelvis CT 03/24/25 09:43 IMPRESSION: 1. No acute findings to account for pain. 2. Bilateral hydronephrosis but no obstruction identified. Labs Labs: Laboratory Results - last 24 hr 03/26/25 05:09 WBC 6.5 RBC 3.96 L Hgb 11.2 L Hct 34.4 L MCV 86.9 MCH 28.3 MCHC 32.6 RDW 14.6 H Plt Count 192 MPV 9.8 Immature Gran % (Auto) 0.5 Neut % (Auto) 57.3 Lymph % (Auto) 30.4 Baker % (Auto) 7.8 Eos % (Auto) 3.1 Baso % (Auto) 0.9 Lymph # (Auto) 1.99 Baker # (Auto) 0.5 Eos # (Auto) 0.2 Baso # (Auto) 0.1 Abs Immat Gran (auto) 0.03 Absolute Neuts (auto) 3.8 Absolute Nucleated RBC 0.000 Nucleated RBC % 0.0 Sodium 134 L Potassium 4.1 Chloride 100 Carbon Dioxide 32 H Anion Gap 2 L BUN 8 Creatinine 0.62 L Estim Creat Clear Calc 110 Estimated GFR > 60 Glucose 109 Calcium 8.1 L Total Bilirubin 0.5 AST 19 ALT 19 Alkaline Phosphatase 86 Total Protein 6.2 L Albumin 3.3 L Quality VTE Prophylaxis VTE prophylaxis: mechanical ordered and pharmacologic ordered
[2025-03-26] MEDS: ATORVASTATIN 10 MG TABLET PO (09:54)
[2025-03-26] MEDS: BISACODYL 10 MG SUPPOSITORY RECTAL (13:15)
--- NOTE | 2025-03-26 18:29 | PC.NURSE ---
RN spoke to YOJANA Mcgowan about the use of suppository, MiraLax, and Lactulose on shift yesterday as well as failed attempt enema. YOJANA Mcgowan ordered RN to do Lactulose Q2 hours and another suppository. Patient stated she did not think she would be able to use the bed ware and thought it was the cause for being constipated. RN and tech helped move patient with a sliding board from bed to electric chair to commode on toilet. Patient sat on commode for 20+ minutes with no luck. RN will continue with schedueld medications.
[2025-03-26] MEDS: ESCITALOPRAM OXALATE 10 MG TABLET 20 MG PO (21:51)
[2025-03-26] MEDS: LOSARTAN POTASSIUM 100 MG TABLET PO (22:00)
[2025-03-26] MEDS: ZOLPIDEM TARTRATE (*CRX) 5 MG TABLET PO (22:04)
--- NOTE | 2025-03-26 22:32 | PM.EVENT ---
Event Note Event Note Event Note: To patient having positive blood cultures Gram-negative rods Patient on meropenem Sensitivity showed that is susceptible to meropenem Repeat blood cultures in the morning
[2025-03-27] VITALS: BP 118/76; PULSE 66; RESP 18; TEMP 36.6; O2SAT 99
[2025-03-27] MEDS: LACTULOSE 20 GM/30 ML UDC PO ×2 (00:40→06:00)
[2025-03-27] MEDS: HYDROcodone/acetaminophen (*CRX) 10-325 MG TABLET 1 TAB PO ×4 (00:41→21:21)
[2025-03-27 04:00] VITALS: BP 103/78; PULSE 68; RESP 18; TEMP 36.6; O2SAT 95
[2025-03-27 05:46] LABS: Hematocrit 36.3 % (37.0-47.0); Hemoglobin 11.6 g/dL (12.0-15.0); Immature Granulocyte Percent A 1.1 % (0-0.5); Lymphocytes Absolute Auto 1.78 K/mm3 (0.9-3.2); Mean Corpuscular HGB Conc 32.0 g/dl (32-36); Mean Corpuscular Hemoglobin 28.0 pg (26-34); Mean Corpuscular Volume 87.5 fl (80-100); Nucleated Red Blood Cells Absolute Auto 0.000 K/mm3 (0.0-0.012); Nucleated Red Blood Cells Perc 0.0 % (0.0-0.2); Platelet Count Result 206 k/mm3 (150-375); Red Blood Count 4.15 M/mm3 (4.2-5.4); White Blood Count 6.1 K/mm3 (4.5-10.0)
[2025-03-27] MEDS: MEROPENEM 1 GM in SODIUM CHLORIDE 0.9% IV 100 ML 200 ML IVPB ×3 (05:59→21:21)
[2025-03-27 06:07] LABS: Alanine Aminotransferase 25 U/L (6-35); Albumin Level 3.6 g/dL (3.5-5.1); Alkaline Phosphatase 84 U/L (38-126); Anion Gap 7 mmol/L (4-12); Aspartate Amino Transferase 27 U/L (14-36); Bilirubin,Total 0.7 mg/dL (0.2-1.3); Blood Urea Nitrogen 9 mg/dL (7-17); Calcium 8.1 mg/dL (8.4-10.2); Carbon Dioxide 30 mmol/L (22-30); Chloride 100 mmol/L (98-107); Estimated CRCL calculation 116 ml/min; Estimated Glomerular Filt Rate > 60; Glucose 105 mg/dL (65-110); Potassium 4.0 mmol/L (3.4-5.0); Sodium 137 mmol/L (137-145); Total Protein 6.8 g/dL (6.3-8.2)
--- NOTE | 2025-03-27 08:15 | P.PNIM_ITS ---
Progress Note: A&P Assessment and Plan (1) Urinary tract infection: Qualifiers: Hematuria presence: without hematuria Urinary tract infection type: acute cystitis Qualified Code(s): N30.00 - Acute cystitis without hematuria Code(s): N39.0 - Urinary tract infection, site not specified Status: Acute Assessment and Plan: - History of urostomy (2 years ago performed at [facility]) Changes the bag herself, plan to change today 03/21 - UA: Cloudy appearance with 1+ blood, positive nitrates, 2+ leukocytes, 6-10 RBC, 21-50 WBC, and 4+ bacteria. - UC obtained on 03/20: Pending -blood cultures obtained on 03/20: NGTD - previous micro reviewed 12/13/2024: Klebsiella oxytoca pansensitive 10/18/2024: Klebsiella oxytoca pansensitive and enterococcus resistant to ampicillin and Macrobid - started on Rocephin on 03/20 and linezolid 03/22 Patient continues to endorse dysuria that has worsened since admission. Given prior enterococcus and that patient is not improving on the Rocephin will start linezolid to cover. Discussed with [facility] pharmacy. Monitor for serotonin syndrome. BC prelim negative follow urine culture will order repeat CT abdomen pelvis w con to reeval for ongoing abl pain stop linezolid and continue rocephin until sensitives are back waiting for sensitivities 03/25 still waiting for sensitivities continue antibiotics 03/26 sensitivities are back- ecoli esbl. Discussed iw ID pharm- Rocephin stopped and meropenem started-7 days-start 03/25 03/27 pain is still present- but better will continue meropenem and talk to care coordination about hh and d/c with completion antibiotics at home. she will need a midline as well. (2) Pancreatic lesion: Code(s): K86.9 - Disease of pancreas, unspecified Status: Acute Assessment and Plan: Paternal history of pancreatic cancer CT abdomen/pelvis: pancreatic tail there is a cystic lesion 1 x 1 cm Previously seen on 03/20/23: Couple cystic lesions at the tail of the pancreas the larger measuring 1.2 cm. Redemonstrated several times throughout the years with the most recent on 01/31/2025: Remains stable Follow up with primary care provider for annual pre and postcontrast MRI Per patient this has already been set up by PCP (3) Hypertension: Qualifiers: Hypertension type: primary hypertension Qualified Code(s): I10 - Essential (primary) hypertension Code(s): I10 - Essential (primary) hypertension Status: Chronic Assessment and Plan: Chronic, continue home medication - lasix 20 mg daily - losartan 100 mg daily - metoprolol 25 mg daily - blood pressures reviewed and remain stable, continue to monitor noted somewhat hypotensive. Will hold lasix this am- as no leg swelling, no sob. OK to give metoprolol. will re eval losartan at bedtime. 03/26 BP reviewed and stable (4) Depression with anxiety: Code(s): F41.8 - Other specified anxiety disorders Status: Acute Assessment and Plan: -continue home medication p.r.n. as needed for anxiety (5) Paraplegia: Code(s): G82.20 - Paraplegia, unspecified Status: Acute Assessment and Plan: Chronic, s/p spine stimulator placed [address] Barajas at [facility] Continue home medications (6) YAJAIRA (obstructive sleep apnea): Code(s): G47.33 - Obstructive sleep apnea (adult) (pediatric) Status: Acute Assessment and Plan: Continue CPAP (7) Constipation: Code(s): K59.00 - Constipation, unspecified Status: Acute Assessment and Plan: had been taking miralax and prune juice and did not want to escalate regimen agreeable to add more- will add dulcolax and lactulose if no result, will add enema as constipation may contribute to abd pain ------lactulose q6, miralax 03/27 BM this am. continue miralax Time Spent With Patient Time with patient: Greater than 35 minutes Subjective Date/time seen: 03/27/25 08:15 Interval history: 59-year-old female who is wheelchair-bound due to incomplete paraplegia with history of [facility]rostomy ([facility]), irritable bowel, afib, hypertension, dyslipidemia, stroke, obstructive sleep apnea, depression, and anxiety presented to the hospital with complaints of suprapubic pain. Assuming care. Patient is pleasant sitting in bed with family at bedside. She continues to end orse left flank pain is radiating down to her groin that she describes as a pressure/burning. Her antibiotics were escalated to linezolid. She reports feeling a bit light headed. NOted losartan 100 mg at hs, metoprolol, lasix. she is c/o abd pain that had been present since admission and has not gotten better at all. 03/24 pt is seen and examined. CT scan reviewed- Bilateral hydronephrosis. 03/25 urology was consulted- no acute concerns or intervention needed. Will continue with antibiotics and increase bowel regimen as constipation may be contributing to abd pain. Pt denies nausea or vomiting, no chills. 03/26 antibiotics switched to meropenem still no bm-on lactulose and enema if needed. pain is a bit better 03/27 BM this morning, feeling better, pt is on Meropenem. Review of Systems Review of Systems: All systems reviewed & are unremarkable except as noted in HPI and below Exam Narrative: General: female in no acute respiratory distress who is nontoxic appearing, sitting up in bed, very pleasant. pain is better HEENT: Normocephalic. Atraumatic. Extraocular movement intact. Sclera clear and anicteric. No facial asymmetry. Chest: Lungs are clear to auscultation bilaterally. CV: Heart was regular rate and rhythm. Abd: Abdomen was soft. Nontender. Nondistended. Positive bowel sounds. Urostomy bag in place with clear straw colored urine. No drainage noted at ostomy site. Objective Data Vital Signs Vital Signs: Vital Signs - 24 hr 03/26/25 09:44 03/26/25 09:47 03/26/25 12:00 Temperature 97.5 F L Pulse Rate 82 67 Respiratory Rate 16 Blood Pressure 126/70 Pulse Oximetry 97 Oxygen Delivery Room Air Fraction of Inspired Oxygen 03/26/25 16:00 03/26/25 20:00 03/26/25 20:00 Temperature 97.1 F L Pulse Rate 73 69 66 Respiratory Rate 16 20 18 Blood Pressure 134/85 131/68 Pulse Oximetry 96 100 99 Oxygen Delivery CPAP Fraction of Inspired Oxygen 21 03/26/25 22:00 03/27/25 00:00 03/27/25 01:49 Temperature 97.8 F Pulse Rate 66 Respiratory Rate 18 Blood Pressure 118/76 Pulse Oximetry 99 Oxygen Delivery CPAP CPAP Fraction of Inspired Oxygen 03/27/25 04:00 Temperature 97.8 F Pulse Rate 68 Respiratory Rate 18 Blood Pressure 103/78 Pulse Oximetry 95 Oxygen Delivery Fraction of Inspired Oxygen Intake/Output Intake/Output: Intake & Output 03/24/25 03/25/25 03/26/25 03/27/25 23:59 23:59 23:59 23:59 Intake Total 1060 1630 1670 250 Output Total 3500 4450 3300 450 Balance -2440 -2820 -1630 -200 Meds/Results Medications: Active Medications Generic Name Dose Route Start Last Admin Trade Name Freq PRN Reason Stop Dose Admin Hydrocodone Bitart/Acetaminophen 1 tab 03/22/25 15:27 03/23/25 01:18 Hydrocodone/Acetaminophen (*Crx) 7.5-325 Mg Tablet PO 1 tab Q6H PRN Administration Pain 4-6 Hydrocodone Bitart/Acetaminophen 1 tab 03/22/25 15:27 03/27/25 06:14 Hydrocodone/Acetaminophen (*Crx) 10-325 Mg Tablet PO 1 tab Q6H PRN Administration Pain Rated 7-10 Alprazolam 0.25 mg 03/20/25 19:49 03/26/25 09:47 Alprazolam (*Crx) 0.25 Mg Tablet PO 0.25 mg TID PRN Administration Anxiety Aspirin 81 mg 03/21/25 09:00 03/26/25 09:47 Aspirin 81 Mg Enteric Tablet PO 81 mg DAILY ANA Administration Atorvastatin Calcium 10 mg 03/21/25 09:00 03/26/25 09:54 Atorvastatin 10 Mg Tablet PO 10 mg DAILY ANA Administration Cyclobenzaprine HCl 10 mg 03/21/25 09:00 03/26/25 17:18 Cyclobenzaprine Hcl 10 Mg Tablet PO 10 mg TID ANA Administration Diclofenac Sodium 1 applic 03/20/25 21:00 03/26/25 21:51 Diclofenac Sodium 1% 100 Gm Gel (*Bkc) TOPICAL 1 applic QID ANA Administration Diphenhydramine HCl 25 mg 03/21/25 11:48 03/24/25 16:23 Diphenhydramine Hcl Cap 25 Mg Capsule PO 25 mg Q6H PRN Administration Itching Enoxaparin Sodium 40 mg 03/22/25 09:00 03/26/25 09:47 Enoxaparin 40 Mg/0.4 Ml Syringe SUB-Q 40 mg DAILY ANA Administration Escitalopram Oxalate 20 mg 03/20/25 21:00 03/26/25 21:51 Escitalopram Oxalate 10 Mg Tablet PO 20 mg HS ANA Administration Furosemide 20 mg 03/21/25 09:00 03/26/25 09:47 Furosemide 20 Mg Tablet BY MOUTH 20 mg QAM ANA Administration Hydromorphone HCl 0.5 mg 03/24/25 13:44 03/25/25 12:14 Hydromorphone Hcl Inj (*Crx) 1 Mg/Ml Syr IV PUSH 0.5 mg Q4H PRN Administration Pain Rated 7-10 Meropenem 1 gm/ Sodium 100 mls @ 200 mls/hr 03/25/25 16:00 03/27/25 05:59 Chloride IVPB 04/01/25 06:29 200 mls/hr Q8HR ANA Administration Lactulose 20 gm 03/26/25 12:35 03/27/25 06:00 Lactulose 20 Gm/30 Ml Udc PO 20 gm Q6HR ANA Administration Losartan Potassium 100 mg 03/21/25 21:00 03/26/25 22:00 Losartan Potassium 100 Mg Tablet PO 100 mg HS ANA Administration Metoprolol Succinate 25 mg 03/21/25 09:00 03/26/25 09:47 Metoprolol Succinate Ext Rel 25 Mg Tabcr PO 25 mg DAILY ANA Administration Ondansetron HCl 4 mg 03/20/25 16:28 03/26/25 00:25 Ondansetron Inj 4 Mg/2 Ml Vial IV PUSH 4 mg Q4H PRN Administration Nausea Polyethylene Glycol 17 gm 03/27/25 08:13 Polyethylene Glycol 3350 17 Gm Powd.Pack PO BID PRN Constipation Ropinirole HCl 1 mg 03/21/25 21:00 03/26/25 21:52 Ropinirole Hcl 1 Mg Tablet PO 1 mg HS ANA Administration Ropinirole HCl 1 mg 03/22/25 17:00 03/26/25 17:18 Ropinirole Hcl 1 Mg Tablet PO 1 mg 1700 ANA Administration Zolpidem Tartrate 5 mg 03/21/25 18:38 03/26/25 22:04 Zolpidem Tartrate (*Crx) 5 Mg Tablet PO 5 mg HS PRN Administration Insomnia Radiology Results: ITS Impressions Abdomen/Pelvis CT 03/24/25 09:43 IMPRESSION: 1. No acute findings to account for pain. 2. Bilateral hydronephrosis but no obstruction identified. Labs Labs: Laboratory Results - last 24 hr 03/27/25 05:11 WBC 6.1 RBC 4.15 L Hgb 11.6 L Hct 36.3 L MCV 87.5 MCH 28.0 MCHC 32.0 RDW 14.8 H Plt Count 206 MPV 9.6 Immature Gran % (Auto) 1.1 H Neut % (Auto) 58.2 Lymph % (Auto) 29.2 Beckham % (Auto) 8.0 Eos % (Auto) 2.5 Baso % (Auto) 1.0 Lymph # (Auto) 1.78 Beckham # (Auto) 0.5 Eos # (Auto) 0.2 Baso # (Auto) 0.1 Abs Immat Gran (auto) 0.07 H Absolute Neuts (auto) 3.5 Absolute Nucleated RBC 0.000 Nucleated RBC % 0.0 Sodium 137 Potassium 4.0 Chloride 100 Carbon Dioxide 30 Anion Gap 7 BUN 9 Creatinine 0.58 L Estim Creat Clear Calc 116 Estimated GFR > 60 Glucose 105 Calcium 8.1 L Total Bilirubin 0.7 AST 27 ALT 25 Alkaline Phosphatase 84 Total Protein 6.8 Albumin 3.6 Quality VTE Prophylaxis VTE prophylaxis: mechanical ordered and pharmacologic ordered
[2025-03-27 09:35] VITALS: PULSE 68
[2025-03-27] MEDS: ASPIRIN 81 MG ENTERIC TABLET PO (09:35)
[2025-03-27] MEDS: ALPRAZolam (*CRX) 0.25 MG TABLET PO ×2 (09:35→21:21)
[2025-03-27] MEDS: ATORVASTATIN 10 MG TABLET PO (09:35)
[2025-03-27] MEDS: ENOXAPARIN 40 MG/0.4 ML SYRINGE SUB-Q (09:35)
[2025-03-27] MEDS: FUROSEMIDE 20 MG TABLET BY MOUTH (09:35)
[2025-03-27] MEDS: CYCLOBENZAPRINE HCL 10 MG TABLET PO ×3 (09:35→17:14)
[2025-03-27] MEDS: METOPROLOL SUCCINATE EXT REL 25 MG TABCR PO (09:35)
[2025-03-27] MEDS: DICLOFENAC SODIUM 1% 100 GM GEL (*BKC) 1 APPLIC TOPICAL ×3 (09:36→21:25)
[2025-03-27 15:17] VITALS: BP 101/58; PULSE 72; RESP 18; TEMP 36.1; O2SAT 96
[2025-03-27] MEDS: diphenhydrAMINE HCl CAP 25 MG CAPSULE PO (17:19)
[2025-03-27 20:00] VITALS: BP 106/40; PULSE 72; RESP 18; TEMP 36.4; O2SAT 97
[2025-03-27 20:18] VITALS: BP 109/61; PULSE 78; RESP 20; TEMP 36.4; O2SAT 93
[2025-03-27] MEDS: LOSARTAN POTASSIUM 100 MG TABLET PO (21:20)
[2025-03-27] MEDS: ESCITALOPRAM OXALATE 10 MG TABLET 20 MG PO (21:21)
[2025-03-27] MEDS: ZOLPIDEM TARTRATE (*CRX) 5 MG TABLET PO (21:21)
[2025-03-28] VITALS (7 sets, daily range): BP systolic 114–146; BP diastolic 50–84; PULSE 58–77; RESP 18–20; TEMP 36.3–36.7; O2SAT 95–98
[2025-03-28 05:19] LABS: Hematocrit 33.8 % (37.0-47.0); Hemoglobin 10.7 g/dL (12.0-15.0); Immature Granulocyte Percent A 0.8 % (0-0.5); Lymphocytes Absolute Auto 2.08 K/mm3 (0.9-3.2); Mean Corpuscular HGB Conc 31.7 g/dl (32-36); Mean Corpuscular Hemoglobin 27.8 pg (26-34); Mean Corpuscular Volume 87.8 fl (80-100); Nucleated Red Blood Cells Absolute Auto 0.000 K/mm3 (0.0-0.012); Nucleated Red Blood Cells Perc 0.0 % (0.0-0.2); Platelet Count Result 180 k/mm3 (150-375); Red Blood Count 3.85 M/mm3 (4.2-5.4); White Blood Count 6.3 K/mm3 (4.5-10.0)
[2025-03-28] MEDS: MEROPENEM 1 GM in SODIUM CHLORIDE 0.9% IV 100 ML 200 ML IVPB ×3 (05:47→20:30)
[2025-03-28 05:57] LABS: Alanine Aminotransferase 22 U/L (6-35); Albumin Level 3.2 g/dL (3.5-5.1); Alkaline Phosphatase 95 U/L (38-126); Anion Gap 4 mmol/L (4-12); Aspartate Amino Transferase 25 U/L (14-36); Bilirubin,Total 0.3 mg/dL (0.2-1.3); Blood Urea Nitrogen 8 mg/dL (7-17); Calcium 8.1 mg/dL (8.4-10.2); Carbon Dioxide 34 mmol/L (22-30); Chloride 99 mmol/L (98-107); Estimated CRCL calculation 94 ml/min; Estimated Glomerular Filt Rate > 60; Glucose 116 mg/dL (65-110); Potassium 4.7 mmol/L (3.4-5.0); Sodium 137 mmol/L (137-145); Total Protein 6.2 g/dL (6.3-8.2)
[2025-03-28] MEDS: FUROSEMIDE 20 MG TABLET BY MOUTH (08:27)
[2025-03-28] MEDS: ASPIRIN 81 MG ENTERIC TABLET PO (08:27)
[2025-03-28] MEDS: HYDROcodone/acetaminophen (*CRX) 7.5-325 MG TABLET 1 TAB PO ×2 (08:27→16:39)
[2025-03-28] MEDS: ALPRAZolam (*CRX) 0.25 MG TABLET PO ×2 (08:27→20:29)
[2025-03-28] MEDS: CYCLOBENZAPRINE HCL 10 MG TABLET PO ×3 (08:27→16:39)
[2025-03-28] MEDS: METOPROLOL SUCCINATE EXT REL 25 MG TABCR PO (08:27)
[2025-03-28] MEDS: ATORVASTATIN 10 MG TABLET PO (08:28)
[2025-03-28] MEDS: DICLOFENAC SODIUM 1% 100 GM GEL (*BKC) 1 APPLIC TOPICAL ×3 (08:28→20:58)
[2025-03-28] MEDS: ENOXAPARIN 40 MG/0.4 ML SYRINGE SUB-Q (08:28)
--- NOTE | 2025-03-28 10:52 | PCNWS ---
Weekly nutritional screen. Patient is tolerating current diet with adequate intake. No weight loss reported. No nutritional needs at this time.
[2025-03-28] MEDS: HYDROmorphone HCL INJ (*CRX) 1 MG/ML SYR 0.5 MG IV PUSH (11:06)
[2025-03-28] MEDS: LIDOCAINE 1% LOCAL INJ 2 ML AMPUL 5 ML INFILTRATE (14:25)
--- NOTE | 2025-03-28 14:28 | PM.IMPN ---
Progress Note: A&P Assessment and Plan (1) Urinary tract infection: Qualifiers: Hematuria presence: without hematuria Urinary tract infection type: acute cystitis Qualified Code(s): N30.00 - Acute cystitis without hematuria Code(s): N39.0 - Urinary tract infection, site not specified Status: Acute Assessment and Plan: - History of urostomy (2 years ago performed at [facility]) Changes the bag herself, plan to change today 03/21 - UA: Cloudy appearance with 1+ blood, positive nitrates, 2+ leukocytes, 6-10 RBC, 21-50 WBC, and 4+ bacteria. - UC obtained on 03/20: Pending -blood cultures obtained on 03/20: NGTD - previous micro reviewed 12/13/2024: Klebsiella oxytoca pansensitive 10/18/2024: Klebsiella oxytoca pansensitive and enterococcus resistant to ampicillin and Macrobid - started on Rocephin on 03/20 and linezolid 03/22 Patient continues to endorse dysuria that has worsened since admission. Given prior enterococcus and that patient is not improving on the Rocephin will start linezolid to cover. Discussed with ID pharmacy. Monitor for serotonin syndrome. BC prelim negative follow urine culture will order repeat CT abdomen pelvis w con to reeval for ongoing abl pain stop linezolid and continue rocephin until sensitives are back waiting for sensitivities 03/25 still waiting for sensitivities continue antibiotics 03/26 sensitivities are back- ecoli esbl. Discussed iw ID pharm- Rocephin stopped and meropenem started-7 days-start 03/25 03/27 pain is still present- but better will continue meropenem and talk to care coordination about hh and d/c with completion antibiotics at home. she will need a midline as well. 03/28 care coordination to help with home needs for antibitoics completion/mid line is ordered (BC negative) (2) Pancreatic lesion: Code(s): K86.9 - Disease of pancreas, unspecified Status: Acute Assessment and Plan: Paternal history of pancreatic cancer CT abdomen/pelvis: pancreatic tail there is a cystic lesion 1 x 1 cm Previously seen on 03/20/23: Couple cystic lesions at the tail of the pancreas the larger measuring 1.2 cm. Redemonstrated several times throughout the years with the most recent on 01/31/2025: Remains stable Follow up with primary care provider for annual pre and postcontrast MRI Per patient this has already been set up by PCP (3) Hypertension: Qualifiers: Hypertension type: primary hypertension Qualified Code(s): I10 - Essential (primary) hypertension Code(s): I10 - Essential (primary) hypertension Status: Chronic Assessment and Plan: Chronic, continue home medication - lasix 20 mg daily - losartan 100 mg daily - metoprolol 25 mg daily - blood pressures reviewed and remain stable, continue to monitor noted somewhat hypotensive. Will hold lasix this am- as no leg swelling, no sob. OK to give metoprolol. will re eval losartan at bedtime. 03/26 BP reviewed and stable (4) Depression with anxiety: Code(s): F41.8 - Other specified anxiety disorders Status: Acute Assessment and Plan: -continue home medication p.r.n. as needed for anxiety (5) Paraplegia: Code(s): G82.20 - Paraplegia, unspecified Status: Acute Assessment and Plan: Chronic, s/p spine stimulator placed [address] Barajas at [facility] Continue home medications (6) YAJAIRA (obstructive sleep apnea): Code(s): G47.33 - Obstructive sleep apnea (adult) (pediatric) Status: Acute Assessment and Plan: Continue CPAP (7) Constipation: Code(s): K59.00 - Constipation, unspecified Status: Acute Assessment and Plan: had been taking miralax and prune juice and did not want to escalate regimen agreeable to add more- will add dulcolax and lactulose if no result, will add enema as constipation may contribute to abd pain ------lactulose q6, miralax 03/27 BM this am. continue miralax Time Spent With Patient Time with patient: 25 - 35 minutes Subjective Date/time seen: 03/28/25 14:28 Interval history: 59-year-old female who is wheelchair-bound due to incomplete paraplegia with history of [facility] ([facility]), irritable bowel, afib, hypertension, dyslipidemia, stroke, obstructive sleep apnea, depression, and anxiety presented to the hospital with complaints of suprapubic pain. Assuming care. Patient is pleasant sitting in bed with family at bedside. She continues to endorse left flank pain is radiating down to her groin that she describes as a pressure/burning. Her antibiotics were escalated to linezolid. She reports feeling a bit light headed. NOted losartan 100 mg at hs, metoprolol, lasix. she is c/o abd pain that had been present since admission and has not gotten better at all. 03/24 pt is seen and examined. CT scan reviewed- Bilateral hydronephrosis. 03/25 urology was consulted- no acute concerns or intervention needed. Will continue with antibiotics and increase bowel regimen as constipation may be contributing to abd pain. Pt denies nausea or vomiting, no chills. 03/26 antibiotics switched to meropenem still no bm-on lactulose and enema if needed. pain is a bit better 03/27 BM this morning, feeling better, pt is on Meropenem. 03/28 pain is better PO meds controlling her pain discussed with care coord for potential midline and home health to complete antibioitcs. Review of Systems Review of Systems: All systems reviewed & are unremarkable except as noted in HPI and below Exam Narrative: General: female in no acute respiratory distress who is nontoxic appearing, sitting up in bed, very pleasant. pain is better HEENT: Normocephalic. Atraumatic. Extraocular movement intact. Sclera clear and anicteric. No facial asymmetry. Chest: Lungs are clear to auscultation bilaterally. CV: Heart was regular rate and rhythm. Abd: Abdomen was soft. Nontender. Nondistended. Positive bowel sounds. Urostomy bag in place with clear straw colored urine. No drainage noted at ostomy site. Objective Data Vital Signs Vital Signs: Vital Signs - 24 hr 03/27/25 15:17 03/27/25 20:00 03/27/25 20:00 Temperature 97.0 F L 97.6 F Pulse Rate 72 72 Respiratory Rate 18 18 Blood Pressure 101/58 L 106/40 L Pulse Oximetry 96 97 Oxygen Delivery Room Air 03/27/25 20:18 03/27/25 21:04 03/28/25 02:00 Temperature 97.6 F Pulse Rate 78 Respiratory Rate 20 Blood Pressure 109/61 Pulse Oximetry 93 Oxygen Delivery CPAP CPAP 03/28/25 04:00 03/28/25 08:00 03/28/25 08:25 Temperature 97.6 F 98.0 F Pulse Rate 58 L 63 Respiratory Rate 20 18 Blood Pressure 121/59 L 146/73 H Pulse Oximetry 95 98 Oxygen Delivery Room Air 03/28/25 08:27 03/28/25 11:16 Temperature 97.7 F Pulse Rate 68 71 Respiratory Rate 18 Blood Pressure 114/50 L Pulse Oximetry 95 Oxygen Delivery Intake/Output Intake/Output: Intake & Output 03/25/25 03/26/25 03/27/25 03/28/25 23:59 23:59 23:59 23:59 Intake Total 1630 1670 2730 920 Output Total 4450 3300 2300 2200 Balance -2820 -1630 430 -1280 Meds/Results Medications: Active Medications Generic Name Dose Route Start Last Admin Trade Name Freq PRN Reason Stop Dose Admin Hydrocodone Bitart/Acetaminophen 1 tab 03/22/25 15:27 03/28/25 08:27 Hydrocodone/Acetaminophen (*Crx) 7.5-325 Mg Tablet PO 1 tab Q6H PRN Administration Pain 4-6 Hydrocodone Bitart/Acetaminophen 1 tab 03/22/25 15:27 03/27/25 21:21 Hydrocodone/Acetaminophen (*Crx) 10-325 Mg Tablet PO 1 tab Q6H PRN Administration Pain Rated 7-10 Alprazolam 0.25 mg 03/20/25 19:49 03/28/25 08:27 Alprazolam (*Crx) 0.25 Mg Tablet PO 0.25 mg TID PRN Administration Anxiety Aspirin 81 mg 03/21/25 09:00 03/28/25 08:27 Aspirin 81 Mg Enteric Tablet PO 81 mg DAILY ANA Administration Atorvastatin Calcium 10 mg 03/21/25 09:00 03/28/25 08:28 Atorvastatin 10 Mg Tablet PO 10 mg DAILY ANA Administration Cyclobenzaprine HCl 10 mg 03/21/25 09:00 03/28/25 13:02 Cyclobenzaprine Hcl 10 Mg Tablet PO 10 mg TID ANA Administration Diclofenac Sodium 1 applic 03/20/25 21:00 03/28/25 13:01 Diclofenac Sodium 1% 100 Gm Gel (*Bkc) TOPICAL Not Given QID ANA Diphenhydramine HCl 25 mg 03/21/25 11:48 03/27/25 17:19 Diphenhydramine Hcl Cap 25 Mg Capsule PO 25 mg Q6H PRN Administration Itching Enoxaparin Sodium 40 mg 03/22/25 09:00 03/28/25 08:28 Enoxaparin 40 Mg/0.4 Ml Syringe SUB-Q 40 mg DAILY ANA Administration Escitalopram Oxalate 20 mg 03/20/25 21:00 03/27/25 21:21 Escitalopram Oxalate 10 Mg Tablet PO 20 mg HS ANA Administration Furosemide 20 mg 03/21/25 09:00 03/28/25 08:27 Furosemide 20 Mg Tablet BY MOUTH 20 mg QAM ANA Administration Hydromorphone HCl 0.5 mg 03/24/25 13:44 03/28/25 11:06 Hydromorphone Hcl Inj (*Crx) 1 Mg/Ml Syr IV PUSH 0.5 mg Q4H PRN Administration Pain Rated 7-10 Meropenem 1 gm/ Sodium 100 mls @ 200 mls/hr 03/25/25 16:00 03/28/25 14:03 Chloride IVPB 04/01/25 06:29 Infused Q8HR ANA Infusion Losartan Potassium 100 mg 03/21/25 21:00 03/27/25 21:20 Losartan Potassium 100 Mg Tablet PO 100 mg HS ANA Administration Metoprolol Succinate 25 mg 03/21/25 09:00 03/28/25 08:27 Metoprolol Succinate Ext Rel 25 Mg Tabcr PO 25 mg DAILY ANA Administration Ondansetron HCl 4 mg 03/20/25 16:28 03/26/25 00:25 Ondansetron Inj 4 Mg/2 Ml Vial IV PUSH 4 mg Q4H PRN Administration Nausea Polyethylene Glycol 17 gm 03/27/25 08:13 03/28/25 08:28 Polyethylene Glycol 3350 17 Gm Powd.Pack PO 17 gm BID PRN Administration Constipation Ropinirole HCl 1 mg 03/21/25 21:00 03/27/25 21:21 Ropinirole Hcl 1 Mg Tablet PO 1 mg HS ANA Administration Ropinirole HCl 1 mg 03/22/25 17:00 03/27/25 17:14 Ropinirole Hcl 1 Mg Tablet PO 1 mg 1700 ANA Administration Senna/Docusate Sodium 1 tab 03/28/25 21:00 Senna/Docusate Sodium Tablet PO HS ANA Zolpidem Tartrate 5 mg 03/21/25 18:38 03/27/25 21:21 Zolpidem Tartrate (*Crx) 5 Mg Tablet PO 5 mg HS PRN Administration Insomnia Radiology Results: ITS Impressions Abdomen/Pelvis CT 03/24/25 09:43 IMPRESSION: 1. No acute findings to account for pain. 2. Bilateral hydronephrosis but no obstruction identified. Labs Labs: Laboratory Results - last 24 hr 03/28/25 04:56 WBC 6.3 RBC 3.85 L Hgb 10.7 L Hct 33.8 L MCV 87.8 MCH 27.8 MCHC 31.7 L RDW 14.9 H Plt Count 180 MPV 9.7 Immature Gran % (Auto) 0.8 H Neut % (Auto) 55.0 Lymph % (Auto) 33.2 [place] % (Auto) 6.7 Eos % (Auto) 3.2 Baso % (Auto) 1.1 Lymph # (Auto) 2.08 [place] # (Auto) 0.4 Eos # (Auto) 0.2 Baso # (Auto) 0.1 Abs Immat Gran (auto) 0.05 H Absolute Neuts (auto) 3.4 Absolute Nucleated RBC 0.000 Nucleated RBC % 0.0 Sodium 137 Potassium 4.7 Chloride 99 Carbon Dioxide 34 H Anion Gap 4 BUN 8 Creatinine 0.73 Estim Creat Clear Calc 94 Estimated GFR > 60 Glucose 116 H Calcium 8.1 L Total Bilirubin 0.3 AST 25 ALT 22 Alkaline Phosphatase 95 Total Protein 6.2 L Albumin 3.2 L Quality VTE Prophylaxis VTE prophylaxis: mechanical ordered and pharmacologic ordered
[2025-03-28] MEDS: KETOROLAC 30 MG/ML VIAL (*BKC) IV PUSH (17:27)
[2025-03-28] MEDS: HYDROcodone/acetaminophen (*CRX) 10-325 MG TABLET 1 TAB PO (20:29)
[2025-03-28] MEDS: LOSARTAN POTASSIUM 100 MG TABLET PO (20:29)
[2025-03-28] MEDS: ESCITALOPRAM OXALATE 10 MG TABLET 20 MG PO (20:29)
[2025-03-28] MEDS: ZOLPIDEM TARTRATE (*CRX) 5 MG TABLET PO (20:29)
[2025-03-28] MEDS: SENNA/DOCUSATE SODIUM TABLET 1 TAB PO (20:29)
[2025-03-28] MEDS: SALINE LOCK FLUSH 10 ML IV PUSH (20:30)
[2025-03-29] VITALS: BP 131/67; PULSE 78; RESP 14; TEMP 36; O2SAT 97
[2025-03-29] MEDS: HYDROcodone/acetaminophen (*CRX) 10-325 MG TABLET 1 TAB PO ×2 (02:55→09:11)
[2025-03-29 04:00] VITALS: BP 128/60; PULSE 69; RESP 16; TEMP 36.6; O2SAT 98
[2025-03-29] MEDS: MEROPENEM 1 GM in SODIUM CHLORIDE 0.9% IV 100 ML 200 ML IVPB ×2 (04:59→13:10)
[2025-03-29] MEDS: SALINE LOCK FLUSH 10 ML IV PUSH ×2 (05:00→13:11)
[2025-03-29] MEDS: HYDROcodone/acetaminophen (*CRX) 7.5-325 MG TABLET 1 TAB PO (05:01)
[2025-03-29 05:27] LABS: Hematocrit 34.6 % (37.0-47.0); Hemoglobin 11.2 g/dL (12.0-15.0); Immature Granulocyte Percent A 1.4 % (0-0.5); Lymphocytes Absolute Auto 1.85 K/mm3 (0.9-3.2); Mean Corpuscular HGB Conc 32.4 g/dl (32-36); Mean Corpuscular Hemoglobin 28.5 pg (26-34); Mean Corpuscular Volume 88.0 fl (80-100); Nucleated Red Blood Cells Absolute Auto 0.000 K/mm3 (0.0-0.012); Nucleated Red Blood Cells Perc 0.0 % (0.0-0.2); Platelet Count Result 182 k/mm3 (150-375); Red Blood Count 3.93 M/mm3 (4.2-5.4); White Blood Count 5.8 K/mm3 (4.5-10.0)
[2025-03-29 05:43] LABS: Alanine Aminotransferase 24 U/L (6-35); Albumin Level 3.4 g/dL (3.5-5.1); Alkaline Phosphatase 76 U/L (38-126); Anion Gap 3 mmol/L (4-12); Aspartate Amino Transferase 26 U/L (14-36); Bilirubin,Total 0.3 mg/dL (0.2-1.3); Blood Urea Nitrogen 12 mg/dL (7-17); Calcium 8.3 mg/dL (8.4-10.2); Carbon Dioxide 33 mmol/L (22-30); Chloride 100 mmol/L (98-107); Estimated CRCL calculation 107 ml/min; Estimated Glomerular Filt Rate > 60; Glucose 108 mg/dL (65-110); Potassium 4.4 mmol/L (3.4-5.0); Sodium 136 mmol/L (137-145); Total Protein 6.2 g/dL (6.3-8.2)
[2025-03-29 07:49] VITALS: BP 124/58; PULSE 67; RESP 16; TEMP 36.3; O2SAT 98
[2025-03-29 09:12] VITALS: PULSE 70
[2025-03-29] MEDS: FUROSEMIDE 20 MG TABLET BY MOUTH (09:12)
[2025-03-29] MEDS: CYCLOBENZAPRINE HCL 10 MG TABLET PO ×2 (09:12→13:10)
[2025-03-29] MEDS: DICLOFENAC SODIUM 1% 100 GM GEL (*BKC) 1 APPLIC TOPICAL (09:12)
[2025-03-29] MEDS: ASPIRIN 81 MG ENTERIC TABLET PO (09:12)
[2025-03-29] MEDS: METOPROLOL SUCCINATE EXT REL 25 MG TABCR PO (09:12)
[2025-03-29] MEDS: ALPRAZolam (*CRX) 0.25 MG TABLET PO (09:12)
[2025-03-29] MEDS: ATORVASTATIN 10 MG TABLET PO (09:12)
[2025-03-29] MEDS: ENOXAPARIN 40 MG/0.4 ML SYRINGE SUB-Q (09:18)
[2025-03-29 11:39] VITALS: BP 106/60; PULSE 74; RESP 16; TEMP 36.6; O2SAT 97
--- NOTE | 2025-03-29 13:25 | PM.DS ---
DS: Admitting Diagnosis Discharge Date 03/29 Admitting Diagnosis uti DS: Discharge Diagnosis Discharge Diagnosis (1) Urinary tract infection: Qualifiers: Hematuria presence: without hematuria Urinary tract infection type: acute cystitis Qualified Code(s): N30.00 - Acute cystitis without hematuria Code(s): N39.0 - Urinary tract infection, site not specified Status: Acute (2) Pancreatic lesion: Code(s): K86.9 - Disease of pancreas, unspecified Status: Acute (3) Hypertension: Qualifiers: Hypertension type: primary hypertension Qualified Code(s): I10 - Essential (primary) hypertension Code(s): I10 - Essential (primary) hypertension Status: Chronic (4) Depression with anxiety: Code(s): F41.8 - Other specified anxiety disorders Status: Acute (5) Paraplegia: Code(s): G82.20 - Paraplegia, unspecified Status: Acute (6) YAJAIRA (obstructive sleep apnea): Code(s): G47.33 - Obstructive sleep apnea (adult) (pediatric) Status: Acute (7) Constipation: Code(s): K59.00 - Constipation, unspecified Status: Acute DS: Summary Hospital Course Hospital Course: 59-year-old female who is wheelchair-bound due to incomplete paraplegia with history of [facility]rost[facility] ([facility]), irritable bowel, afib, hypertension, dyslipidemia, stroke, obstructive sleep apnea, depression, and anxiety presented to the hospital with complaints of suprapubic pain. # UTI - History of urostomy (2 [facility] performed at [facility]) Changes the bag herself, plan to change today 03/21 - UA: Cloudy appearance with 1+ blood, positive nitrates, 2+ leukocytes, 6-10 RBC, 21-50 WBC, and 4+ bacteria. - UC obtained on 03/20: Pending -blood cultures obtained on 03/20: NGTD - previous micro reviewed 12/13/2024: Klebsiella oxytoca pansensitive 10/18/2024: Klebsiella oxytoca pansensitive and enterococcus resistant to ampicillin and Macrobid - started on Rocephin on 03/20 and linezolid 03/22 Patient continues to endorse dysuria that has worsened since admission. Given prior enterococcus and that patient is not improving on the Rocephin will start linezolid to cover. Discussed with ID pharmacy. Monitor for serotonin syndrome. BC prelim negative follow urine culture will order repeat CT abdomen pelvis w con to reeval for ongoing abl pain stop linezolid and continue rocephin until sensitives are back waiting for sensitivities 03/25 still waiting for sensitivities continue antibiotics 03/26 sensitivities are back- ecoli esbl. Discussed iw ID pharm- Rocephin stopped and meropenem started-7 days-start 03/25 03/27 pain is still present- but better will continue meropenem and talk to care coordination about hh and d/c with completion antibiotics at home. she will need a midline as well. 03/28 care coordination to help with home needs for antibitoics completion/mid line is ordered (BC negative) 03/29 last night still pain but this morning and today so far stable and PO meds controlling pain. Wants to go home to complete the course. Midline in place. Once course is done, will f/u here for midline removal- care coordination arrange f/u. she will need 8 more doses of emropenem. # Pancreatic lesion: Paternal history of pancreatic cancer CT abdomen/pelvis: pancreatic tail there is a cystic lesion 1 x 1 cm Previously seen on 03/20/23: Couple cystic lesions at the tail of the pancreas the larger measuring 1.2 cm. Redemonstrated several times throughout the years with the most recent on 01/31/2025: Remains stable Follow up with primary care provider for annual pre and postcontrast MRI Per patient this has already been set up by PCP # Hypertension: Chronic, continue home medication - lasix 20 mg daily - losartan 100 mg daily - metoprolol 25 mg daily - blood pressures reviewed and remain stable, continue to monitor noted somewhat hypotensive. Will hold lasix this am- as no leg swelling, no sob. OK to give metoprolol. will re eval losartan at bedtime. = BP reviewed and stable- no changes # Depression with anxiety: -continue home medication p.r.n. as needed for anxiety # Paraplegia: Chronic, s/p spine stimulator placed [address] Barajas at [facility] Continue home medications # YAJAIRA (obstructive sleep apnea): Continue CPAP # Constipation: had been taking miralax and prune juice and did not want to escalate regimen agreeable to add more- will add dulcolax and lactulose if no result, will add enema as constipation may contribute to abd pain ------lactulose q6, miralax 03/27 BM this am. continue miralax Time Spent with Patient Time attestation: Total time spent providing and/or coordinating discharge services: Exam Narrative: General: female in no acute respiratory distress who is nontoxic appearing, sitting up in bed, very pleasant. pain is better HEENT: Normocephalic. Atraumatic. Extraocular movement intact. Sclera clear and anicteric. No facial asymmetry. Chest: Lungs are clear to auscultation bilaterally. CV: Heart was regular rate and rhythm. Abd: Abdomen was soft. Nontender. Nondistended. Positive bowel sounds. Urostomy bag in place with clear straw colored urine. No drainage noted at ostomy site. DS: Data Data Completed and Pending Labs on day of discharge: Labs from last 24 hours 03/29/25 04:49 WBC 5.8 RBC 3.93 L Hgb 11.2 L Hct 34.6 L MCV 88.0 MCH 28.5 MCHC 32.4 RDW 14.8 H Plt Count 182 MPV 9.5 Immature Gran % (Auto) 1.4 H Neut % (Auto) 54.9 Lymph % (Auto) 31.7 [place] % (Auto) 8.2 Eos % (Auto) 2.9 Baso % (Auto) 0.9 Lymph # (Auto) 1.85 [place] # (Auto) 0.5 Eos # (Auto) 0.2 Baso # (Auto) 0.1 Abs Immat Gran (auto) 0.08 H Absolute Neuts (auto) 3.2 Absolute Nucleated RBC 0.000 Nucleated RBC % 0.0 Sodium 136 L Potassium 4.4 Chloride 100 Carbon Dioxide 33 H Anion Gap 3 L BUN 12 Creatinine 0.64 L Estim Creat Clear Calc 107 Estimated GFR > 60 Glucose 108 Calcium 8.3 L Total Bilirubin 0.3 AST 26 ALT 24 Alkaline Phosphatase 76 Total Protein 6.2 L Albumin 3.4 L Preliminary micro results at discharge 03/27/25 05:18 Blood Culture - Preliminary Blood 03/27/25 05:11 Blood Culture - Preliminary Blood Discharge Plan Discharge Attending physician on discharge: Lisa King Consulting providers: Venessa Salas; Conner Terrell Discharging Clinician: Roslyn Tapia Patient Disposition: Home Activity: may shower Diet: heart healthy Discharge Instructions: You will need 8 more total doses of meropenem. Once completed, please go to registration (04/02 at 8 am) you will have you midline removed. I am sending you norco script please do not take any other norco meds if you have any left over from previous hospitalization. Patient Instructions: Antibiotic Form Patient Language: Faroese Stand Alone Forms: General Discharge Information Follow-up/Referrals: Panchito Walters DO [Primary Care Provider, Internal Medicine] - 2 Weeks Discharge Medications: New cyclobenzaprine 10 mg Tablet 10 mg PO TID Qty: 30 0RF hydrocodone-acetaminophen 10-325 mg tablet 1 tablet PO Q6H PRN (Reason: pain) Qty: 24 0RF meropenem 1 gram recon soln 1 g IV Q8H Continued escitalopram oxalate 20 mg tablet 20 mg PO HS ibuprofen 600 mg tablet 600 mg PO TID PRN (Reason: pain) Qty: 30 0RF ropinirole 0.5 mg tablet 1 mg PO BID Patient Comments: takes at 1700 and 2100 polyethylene glycol 3350 [Miralax] 17 gram/dose powder 17 g PO DAILY PRN (Reason: constipation) losartan 100 mg tablet 100 mg PO HS diclofenac sodium [Voltaren Arthritis Pain] 1 % gel 2 g topical QID Qty: 100 1RF Rx Instructions: apply to single elbow, wrist or hand; for hand includes palm/fingers/back of hand alprazolam 0.25 mg tablet 0.25 mg PO TID PRN (Reason: anxiety) Qty: 60 0RF olanzapine 5 mg tablet 5 mg PO DAILY Qty: 30 0RF zolpidem [Ambien] 5 mg tablet 5 mg PO QHS Qty: 30 0RF atorvastatin 10 mg tablet 10 mg PO DAILY Qty: 90 1RF aspirin [Adult Low Dose Aspirin] 81 mg tablet,delayed release (DR/EC) 81 mg PO DAILY Qty: 90 2RF ondansetron 4 mg tablet,disintegrating 4 mg PO Q8H PRN (Reason: nausea and vomiting) Qty: 20 0RF furosemide 20 mg tablet See Rx Instructions .ROUTE .COMPLEX Qty: 90 2RF Dose Instruction: 20 MG ORALLY EVERY MORNING Rx Instructions: 20 MG ORALLY EVERY MORNING metoprolol succinate 25 mg tablet extended release 24 hr 25 mg PO DAILY Qty: 90 2RF cyclobenzaprine 10 mg tablet 10 mg PO TID Qty: 60 0RF Date of admission: 03/21/25 10:42 Primary Care Provider: Panchito Walters Admitting Provider: Gerhard Carmona Attending physician on admission: Gerhard Carmona Condition: Stable Quality VTE Prophylaxis VTE prophylaxis: mechanical ordered and pharmacologic ordered
== END 2025-03-29 15:30 | disposition home or self-care (01) | DRG 690 ==
LOC: ANHED 16:59 → ANH2MED 19:09
PROVIDERS: Nurse Practitioner; Admitting Provider Internal Medicine; Emergency Provider Emergency Medicine; PCP Internal Medicine; Visit Provider Nurse Practitioner
DX: N30.00 Acute cystitis without hematuria (principal); G82.22 Paraplegia, incomplete; N13.30 Unspecified hydronephrosis; Z16.12 Extended spectrum beta lactamase (ESBL) resistance; B96.89 Other specified bacterial agents as the cause of diseases classified elsewhere; E78.5 Hyperlipidemia, unspecified; F41.8 Other specified anxiety disorders; I10 Essential (primary) hypertension; I48.0 Paroxysmal atrial fibrillation; G47.33 Obstructive sleep apnea (adult) (pediatric); K86.89 Other specified diseases of pancreas; K21.9 Gastro-esophageal reflux disease without esophagitis; K59.00 Constipation, unspecified; Z93.6 Other artificial openings of urinary tract status; Z86.73 Personal history of transient ischemic attack (TIA), and cerebral infarction without residual deficits; E66.9 Obesity, unspecified; Z68.30 Body mass index [BMI] 30.0-30.9, adult; Z90.49 Acquired absence of other specified parts of digestive tract; Z79.82 Long term (current) use of aspirin; Z88.0 Allergy status to penicillin; Z99.89 Dependence on other enabling machines and devices; Z99.3 Dependence on wheelchair
CPT/HCPCS: 36415; 36569; 74177; 80053; 81001; 82948; 83605; 85025; 87040; 87086; 87186; 96361; 96365; 96375; 96376; 99285; A9270; C1751; G0378; J0696; J1171; J1650; J1885; J2003; J2020; J2185; J2270; J2405; J7030; Q9967

== ENCOUNTER 2025-04-02 07:36 | Outpatient (CLI) | payer MEDICARE, SELFPAY ==
--- OUTSIDE RECORDS SUMMARY | 2009-07-19 19:00 | XMS_ITS | Continuity of Care Document ---
Author Organization [facility] Address [address] [place] [id number] Phone Care Team Providers Care Museum Specialist Name Role Phone Jon Rodriguez MD Unavailable Unavailable Advance Directives Directive Yes / No Effective Date File Name No Information Encounters Encounter Description Practice Location Reason(s) For Visit Diagnoses Date Provider Providers Copied on Encounter [facility], Box [facility], [place], [place], [address], tel:[phone] [facility] LUMBAGO 0 Michael Webb. [address] [place] [address], [id number], . tel:[phone] [facility], Box [facility], [place], [place], [address], tel:[phone] [facility] LUMBOSACRAL NEURITIS NOS 0 Ranjith Salazar. [address] [place] [address], [id number], . tel:[phone] [facility] Box [facility], [place], [place], [address], tel:[phone] [facility] SPINAL STENOSIS-LUMBA R 8 No Information [facility] Box [facility], [place], [place], [address], tel:[phone] [facility] JOINT DIS NEC-PELVIS 8 No Information [facility] Box [address] [place] [address], [id number], tel:[phone] [facility] [place] (Ip) ARTHRODESIS STATUS 7 Michael Webb. [address] [place], [place], [address], [place]. tel:[phone] [facility], [address] [facility], [place], [place], [address], [place] tel:[phone] [facility] [place] (Ip) LUMBAR DISC DISPLACEMENT [address] [facility], [place], [place], [address], [place]. tel:[phone] [facility], Box [facility], [place], [place], [address], [place] tel:[phone] [facility] [place] (Op) PREOP RESPIRATORY EXAM 7 No Information [facility], Box [facility], [place], [place], [address], [place] tel:[phone] [facility] [place] (Op) PAIN IN LIMB 7 Michael Webb. [address] [place] [address], [place], [place], [address], [place]. tel:[phone] [facility], Box [facility], [place], [place], [address], [place] tel:[phone] [facility] CERVICALGIA 6 Juliann iGbson. [address], [place], [place], [address], [place]. tel:[phone] [facility], [address] [place] [address], [id number], [place] tel:[phone] [facility] OTH ADV EFF MED/BIO SUB 6 No Information [facility], Box [facility], [place], [place], [address], [place] tel:[phone] [facility] [place] (Er) FALL NOS 2200 6 Monica Tapia. [address], [place], [place], [address]. tel:[phone] [facility], Box [facility], [place], [place], [address], [place] tel:[phone] [facility] [place] (Op) HEADACHE 5200 6 Ranjith Salazar. [address], [place], [place], [address], [place]. tel:[phone] [facility], [address] Box [facility], [place], [place], [address], tel:[phone] [facility] [place] (Op) HEAD INJURY NOS 6 Michael Castellano [address] [place], [place], [address], . tel:[phone] [facility], [address] [facility], [place], [place], [address], tel:[phone] [facility] (Er) CERVICAL SPINAL STENOSIS 6 Juliann Sauceda [address] [place] [address], [id number], . tel:[phone] [facility], Box [facility], [place], [place], [address], tel:[phone] [facility] [place] (Er) BRACHIAL NEURITIS NOS 6 Juliann Sauceda [address] [place] [address], [id number], . tel:[phone] [facility], Box [facility], [place], [place], [address], tel:[phone] [facility] [place] (Ip) FOLLOW-UP SURGERY NOS 4 Michael Castellano [address] [place], [place], [address], . tel:[phone] [facility], Box [facility], [place], [place], [address], tel:[phone] [facility] [place] (Op) COUGH 4 No Information Family History Family Member Type Diagnosis Age At Onset No Information Payers Payer name Insurance type Covered constitution party ID Authoriza tion(s) No Information Social History [...]
--- OUTSIDE RECORDS SUMMARY | 2016-07-19 05:50 | XMS_ITS | Continuity of Care Document ---
Author Organization [facility] Address [address] [place] [address] Phone Care Team Providers Care Emt P Name Role Phone Shreyas Dumont MD Unavailable Unavailable Allergies, Adverse Reactions, Alerts Substance Reaction Status Criticality Sulfa (Sulfonamide Antibiotics) Hives Active No Information Penicillins Hives Active No Information TAPE, OCCLUSIVE ADHESIVE Active No Information Penicillins Unknown Active No Information Medications Medication Instructions Dosage Effective Dates (start - stop) Status Comments [place] 5 mg-325 mg tablet take 1-2 tabs [...] Provider Providers Copied on Encounter [facility], [address], [place], [address], [place] [phone] [facility] [place] Ulnar neuropathy at elbow, leftPostopera tive visit 0 7 Tim Pritchett. [address], [place], [place], [address] . tel: [phone] [facility], [address] [address], [place], [address], [place] tel:[phone] [facility] Ulnar neuropathy at elbow, left 8 7 Paul Handley. [address], [place], [place], [address] . tel: [phone] [facility], [address] [address], [place], [address], [place] [phone] [facility] Numbness of left hand 7- 7 Tim Pritchett. [address], [place], [place], [address] . tel: [phone] [facility], [address] [address], [place], [address], [place] [phone] [facility] [place] Postoperative visit 6 Tim Pritchett. [address], [place], [place], [address] . tel: [phone] [facility], [address] [facility], [place], [address], [place] tel:[phone] [facility] Ulnar neuropathy at elbow, left 6 Tim Pritchett. [address], [place], [place], [address] . tel: [phone] OFFICE/OUTPA TIENT VISIT EST [facility], [address] [facility] [facility] [address], [place], [address], [place] tel:[phone] [facility] [place] Pain in left elbowUlnar neuropathy at elbow, left 6 Tim Pritchett. [address], [place], [place], [address] . tel: [phone] OFFICE/OUTPA TIENT VISIT EST [facility], [address], [place], [address], [place] [phone] [facility] [place] Pain in left elbowUlnar neuritis, left 6 Tim Pritchett. [address], [place], [place], [address] . tel: [phone] Referring Provider: Migue [facility]uso [facility], [place], [address]. [phone] OFFICE/OUTPA TIENT VISIT [facility], [address] [facility] [address], [place], [address], [place] [phone] [facility] evga left thumb/hand (chief complaint) Primary osteoarthriti s of first carpometacarp al joint of left handDe Quervain's tenosynovitis 6 Ciera Brice. [address] [place], [place], [address] . tel: [phone] Family History Family Member Type Diagnosis Age [...]
--- OUTSIDE RECORDS SUMMARY | 2025-01-19 08:20 | XMS_ITS | Continuity of Care Document ---
Author Organization [facility] Address [address] [place] [address] Phone Care Team Providers Care Housing Development Specialist Name Role Phone Efrain PEREZ DOArthur Unavailable Unavailab le Allergies, Adverse Reactions, Alerts [...] Providers Copied on Encounter Office/outpa tient visit,est, [facility] [place] [employer] [facility], [address], [id number], [place] tel:[phone] [facility] [employer] [employer] [facility] Fell in shower hurt left hand and right hip low back (chief complaint) Pain in left handUnil primary osteoarth of first carpometacarp joint, l handRadial styloid tenosynovitis [de Quervain] 5 Efrain Laurent. [address] [facility] [address], [place], [place], [id number], [place]. tel:[phone] Referring Provider: Martin Medina, [address], [place], [address]. tel:[phone] [facility] [employer] [facility], [address] [address], [place], [place], [id number], [place] tel:[phone] [facility] [employer] [facility] No Information 5 Efrain DO Gibson. [address] [facility] [address], [place], [place], [id number], [place]. tel:[phone] Office/outpa tient visit,est, [facility] [employer] [facility], [address] [facility] [address], [place], [place], [id number], [place] tel:[phone] [facility] [employer] [facility] r knee (chief complaint) Pain in right knee 4 Klaus Mcfarlane. [address] [facility], [address], [place], [place], [id number], . tel:[phone] Referring Provider: Martin Medina, [address] [place] [address] Suite [facility], [place], [address]. tel:[phone] [facility], [address] [place] [address], [id number], tel:[phone] [facility] [employer] [facility] Pain in left shoulder Aug- 5-202 2 Klaus Mcfarlane. [address] [place] [address], [place] [address], [place], [place], [id number], [place]. tel:[phone] Office/outpa tient visit,[facility], [address] [place] [address], [id number], tel:[phone] [facility] fell Out Of Wheelchair And Shived Both Shoulders (chief complaint) Pain in left shoulderPain in right shoulder Aug- 0-202 2 Klaus Mcfarlane. [address] [place] [address], [place] [address], [place], [place], [id number], [place]. tel:[phone] Referring Provider: Martin Medina, [address] [place] [address] Suite [facility], [place], [address]. tel:[phone] Office/outpa tient visit,[facility] [employer] [facility], [address] [place] [address], [id number], tel:[phone] [facility] [facility] No Information Sep-201 0 No Information Referring Provider: Martin Medina, [address] [place] [address] Suite [facility], [place], [address]. tel:[phone] Family History Family Member Type Diagnosis Age [...] tion(s) [employer] Medicare Advantage CI [id number] Social History Type Description Quantity Date Captured [...]
--- OUTSIDE RECORDS SUMMARY | 2025-04-02 07:39 | XMS_ITS | Encounter Summary ---
Author Organization [facility] Address [address] [place] [address] Care Team Providers Care Geodetic Engineer Name Role Phone Fiordaliza Snell MD [...] on file Legal Sex Female 2:43 AM TIE MAN Gender Identity Not on file Sexual [...] fL INTERFACE SYSTEM 10/14/2004 6:07 AM CDT [employer] HEMATOLOGY ORDERABLES Final Resu lt Performing Organization Address [facility] Phone Number INTERFACE SYSTEM Refer to clinic/hospital department * (ABNORMAL) BASIC METABOLIC PANEL (10/14/2004 6:07 AM CDT) Pathologist [facility] GLUCOSE 90 65 - 109 mg/dL INTERFACE [...] mmol/L INTERFACE SYSTEM 10/14/2004 6:07 AM CDT [employer] CHEMISTRY ORDERABLES Final Resul t Performing Organization Address [facility] Phone Number INTERFACE SYSTEM Refer to clinic/hospital department * (ABNORMAL) AMYLASE (10/13/2004 9:56 AM CDT) AMYLASE 24(L) 28 - 100 U/L INTERFACE SYSTEM 10/13/2004 9:56 AM CDT Russell Marie CHEMISTRY ORDERABLES Final Resul t Performing Organization Address [facility] Phone Number INTERFACE SYSTEM Refer to clinic/hospital department * LIPASE (10/13/2004 9:56 AM CDT) LIPASE 20 13 - 60 U/L INTERFAC E SYSTEM 10/13/2004 9:56 AM CDT Russell Marie CHEMISTRY ORDERABLES Final Resul t Performing Organization Address [facility] Phone Number INTERFACE SYSTEM Refer to [...] ORDERABLES Final Resu lt Performing Organization Address [place]/[facility] de Phone Number INTERFACE [...] ORDERABLES Final Resu lt Performing Organization Address [facility] Phone Number INTERFACE SYSTEM Refer to clinic/hospital department * (ABNORMAL) C-REACTIVE PROTEIN (10/13/2004 5:00 AM CDT) CRP 1.3(H) 0.0 - 0.8 mg/dL INTERFACE SYSTEM 10/13/2004 5:00 AM CDT Russell Marie CHEMISTRY ORDERABLES Final Resul t Performing Organization Address [facility] Phone Number INTERFACE SYSTEM Refer to [...] URINE ORDERABLES Final Result Performing Organization Address [facility] Co ri Phone Number INTERFACE SYSTEM Refer to clinic/hospital [...] ORDERABLES Final Resu lt Performing Organization Address [place]/[facility] Co de Phone Number [...] ORDERABLES Final Resul t Performing Organization Address [place]/[facility] Co de Phone Number [...] ORDERABLES Final Resu lt Performing Organization Address [place]/[facility] Co de Phone Number [...] ORDERABLES Final Resul t Performing Organization Address [place]/[facility] Co de Phone Number INTERFACE SYSTEM Refer to clinic/hospital department documented in this encounter Visit Diagnoses Diagnosis Abdominal pain, right lower quadrant- Primary documented in this encounter Additional Health Concerns Infection Onset Date Last Indicated Resolved Time R/O COVID-19 07/02/2020 07/02/2020 07/02/2020 8:53 PM TIE MAN MRSA Comment:Resolved per Type and Duration of Precautions Recommended for Selected Infections and Conditions document 2023 update 07/02/2020 07/02/2020 03/16/20 10:58 AM CDT R/O COVID-19 07/10/2020 07/10/2020 07/10/2020 5:01 PM TIE MAN documented as of this encounter Care Teams Geodetic Engineer Relationship Specialty Start Date End Date Fiordaliza Snell MD PCP - General Family Practice 09/09/22 documented as of this encounter
--- OUTSIDE RECORDS SUMMARY | 2025-04-02 07:39 | XMS_ITS | Encounter Summary ---
Author Organization [facility] Address [address] [place] [address] Care Team Providers Care Repair Electric Motor Assembler Name Role Phone Fiordaliza Snell MD Primary Care Provider Encounter Details Date Type Department Care Team (Late st Contact Info) Description 10/10/2003 Emergency [facility] Franki Grimes, DO [address] [place] [address] Er, Authorized P NO ADDRESS ON FILE LUMBAGO (Primary Dx) Social History Tobacco Use Types Packs/Day Years Used Date Smoking Tobacco: Never Assessed Comments Unknown Sex and Gender Information Value Date Recorded Sex Assigned at Not on file Legal Sex Female 2:43 AM ECONOMIC ANALYST Gender Identity Not on file Sexual Orientation Not on file documented as of this encounter Plan of Treatment Not on file documented as of this encounter Visit Diagnoses Diagnosis Lumbago- Primary documented in this encounter Additional Health Concerns Infection Onset Date Last Indicated Resolved Time R/O COVID-19 07/02/2020 07/02/2020 07/02/2020 8:53 PM ECONOMIC ANALYST MRSA Comment:Resolved per Type and Duration of Precautions Recommended for Selected Infections and Conditions document 2023 update 07/02/2020 07/02/2020 03/16/20 24 10:58 AM CDT R/O COVID-19 07/10/2020 07/10/2020 07/10/2020 5:01 PM ECONOMIC ANALYST documented as of this encounter Care Teams Repair Electric Motor Assembler Relationship Specialty Start Date End Date Fiordaliza Snell MD PCP - General Family Practice 09/09/22 documented as of this encounter
--- OUTSIDE RECORDS SUMMARY | 2025-04-02 07:39 | XMS_ITS | Encounter Summary ---
Author Organization [facility] Address [address] [place] [address] Care Team Providers Care Tours Hostess Name Role Phone Fiordaliza Snell MD Primary Care Provider Encounter Details Date Type Department Care Team (Latest Contact Info) Description 11/13/2004 Outpatient Historical [facility] RONALD Garcia, Anjali Gupta MD NO ADDRESS ON FILE LUMP OR MASS IN BREAST (Primary Dx) Social History Tobacco Use Types Packs/Day Years Used Date Smoking Tobacco: Never Assessed Comments Unknown Sex and Gender Information Value Date Recorded Sex Assigned at Not on file Legal Sex Female 2:43 AM WHEEL SHOP SUPERVISOR Gender Identity Not on file Sexual Orientation Not on file documented as of this encounter Plan of Treatment Not on file documented as of this encounter Visit Diagnoses Diagnosis Lump or mass in breast- Primary documented in this encounter Additional Health Concerns Infection Onset Date Last Indicated Resolved Time R/O COVID-19 07/02/2020 07/02/2020 07/02/2020 8:53 PM WHEEL SHOP SUPERVISOR MRSA Comment:Resolved per Type and Duration of Precautions Recommended for Selected Infections and Conditions document 2023 update 07/02/2020 07/02/2020 03/16/20 24 10:58 AM CDT R/O COVID-19 07/10/2020 07/10/2020 07/10/2020 5:01 PM WHEEL SHOP SUPERVISOR documented as of this encounter Care Teams Tours Hostess Relationship Specialty Start Date End Date Fiordaliza Snell MD PCP - General Family Practice 09/09/22 documented as of this encounter
--- OUTSIDE RECORDS SUMMARY | 2025-04-02 07:40 | XMS_ITS | Encounter Summary ---
Author Organization [facility] Address [address] [place] [address] Care Team Providers Care Inletter Name Role Phone Fiordaliza Snell MD Primary [...] on file Legal Sex Female 2:43 AM WELDING MACHINE OPERATOR PLASMA ARC Gender Identity Not on file Sexual Orientation Not on file documented as of this encounter Plan of Treatment Not on file documented as of this encounter Visit Diagnoses Diagnosis Metrorrhagia- Primary documented in this encounter Additional Health Concerns Infection Onset Date Last Indicated Resolved Time R/O COVID-19 07/02/2020 07/02/2020 07/02/2020 8:53 PM WELDING MACHINE OPERATOR PLASMA ARC MRSA Comment:Resolved per Type and Duration of Precautions Recommended for Selected Infections and Conditions document 2023 update 07/02/2020 07/02/2020 03/16/20 24 10:58 AM CDT R/O COVID-19 07/10/2020 07/10/2020 07/10/2020 5:01 PM WELDING MACHINE OPERATOR PLASMA ARC documented as of this encounter Care Teams Inletter Relationship Specialty Start Date End Date Fiordaliza Snell MD PCP - General Family Practice 09/09/22 documented as of this encounter
--- OUTSIDE RECORDS SUMMARY | 2025-04-02 07:40 | XMS_ITS | Encounter Summary ---
Author Organization [facility] Address [address] [place] [address] Care Team Providers Care Water Tanker Driver Name Role Phone Fiordaliza Snell MD Primary [...] on file Legal Sex Female 2:43 AM INFORMATION MANAGEMENT OFFICER Gender Identity Not on file Sexual Orientation Not on file documented as of this encounter Plan of Treatment Not on file documented as of this encounter Visit Diagnoses Diagnosis Unspecified symptom associated with female genital organs- Primary documented in this encounter Additional Health Concerns Infection Onset Date Last Indicated Resolved Time R/O COVID-19 07/02/2020 07/02/2020 07/02/2020 8:53 PM INFORMATION MANAGEMENT OFFICER MRSA Comment:Resolved per Type and Duration of Precautions Recommended for Selected Infections and Conditions document 2023 update 07/02/2020 07/02/2020 03/16/20 24 10:58 AM CDT R/O COVID-19 07/10/2020 07/10/2020 07/10/2020 5:01 PM INFORMATION MANAGEMENT OFFICER documented as of this encounter Care Teams Water Tanker Driver Relationship Specialty Start Date End Date Fiordaliza Snell MD PCP - General Family Practice 09/09/22 documented as of this encounter
--- OUTSIDE RECORDS SUMMARY | 2025-04-02 07:40 | XMS_ITS | Encounter Summary ---
Author Organization [facility] Address [address] [place] [address] Care Team Providers Care Systems Lead Name Role Phone Fiordaliza Snell MD Primary [...] on file Legal Sex Female 2:43 AM STABLE ATTENDANT Gender Identity Not on file Sexual Orientation Not on file documented as of this encounter Plan of Treatment Not on file documented as of this encounter Visit Diagnoses Diagnosis Unspecified symptom associated with female genital organs- Primary documented in this encounter Additional Health Concerns Infection Onset Date Last Indicated Resolved Time R/O COVID-19 07/02/2020 07/02/2020 07/02/2020 8:53 PM STABLE ATTENDANT MRSA Comment:Resolved per Type and Duration of Precautions Recommended for Selected Infections and Conditions document 2023 update 07/02/2020 07/02/2020 03/16/20 24 10:58 AM CDT R/O COVID-19 07/10/2020 07/10/2020 07/10/2020 5:01 PM STABLE ATTENDANT documented as of this encounter Care Teams Systems Lead Relationship Specialty Start Date End Date Fiordaliza Snell MD PCP - General Family Practice 09/09/22 documented as of this encounter
--- OUTSIDE RECORDS SUMMARY | 2025-04-02 07:40 | XMS_ITS | Patient Health Record ---
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 Problem Lumbosacral radiculopathy (8202690) Radiculopathy, lumbosacral region (M54.17) Active confirmed Plan Of Treatment No Information Insurance Providers Payer Name Payer Address Payer Phone Subscriber Number Group Number Insured Name Patient Relationship to Insured Coverage Start Date Coverage End Date [facility] [id number] [place] [address] [id number] Angelina Mcnulty Self - patient is the insured Medical (General) History Medical History History ICD Code HBP heart attack osteoarthritis fibromyalgia urinary incontinence headaches migraines stroke nerve damage IBS asthma chronic bronchitis pneumonia depression anxiety Surgical History Surgery Date(Month/Year) spine fusion & stimulator 2004 spine fusion 2006 spine fusion 2021
--- OUTSIDE RECORDS SUMMARY | 2025-04-02 07:40 | XMS_ITS | Encounter Summary ---
Author Organization [facility] Address [address] [place] [address] Care Team Providers Care Family Dentist Name Role Phone Fiordaliza Snell MD Primary [...] on file Legal Sex Female 2:43 AM CORRECTIONAL OFFICER CAPTAIN Gender Identity Not on file Sexual Orientation Not on file documented as of this encounter Plan of Treatment Not on file documented as of this encounter Visit Diagnoses Diagnosis Abdominal pain, unspecified site- Primary documented in this encounter Additional Health Concerns Infection Onset Date Last Indicated Resolved Time R/O COVID-19 07/02/2020 07/02/2020 07/02/2020 8:53 PM CORRECTIONAL OFFICER CAPTAIN MRSA Comment:Resolved per Type and Duration of Precautions Recommended for Selected Infections and Conditions document 2023 update 07/02/2020 07/02/2020 03/16/20 24 10:58 AM CDT R/O COVID-19 07/10/2020 07/10/2020 07/10/2020 5:01 PM CORRECTIONAL OFFICER CAPTAIN documented as of this encounter Care Teams Family Dentist Relationship Specialty Start Date End Date Fiordaliza Snell MD PCP - General Family Practice 09/09/22 documented as of this encounter
--- OUTSIDE RECORDS SUMMARY | 2025-04-02 07:40 | XMS_ITS | Clinical Summary ---
Author Organization [facility] Address [address] [place] [address] Phone Care Team Providers Care Elementary School Teacher Name Role Phone Unavailable Primary Care Provider Unavailabl e Social History Tobacco Use Types Packs/Day Years Used Date Smoking Tobacco: Never Assessed Comments Unknown Sex and Gender Information Value Date Recorded Sex Assigned at Not on file Legal Sex Female 3:52 AM NEWS ASSIGNMENT EDITOR Gender Identity Not on file Sexual Orientation [...] (1 of 2) 2016 Influenza Immunization (#1) 2025 SARS-COV-2 Immunization ( season) 2025 Respiratory Syncytial Virus (RSV) Immunization (Adult) [...]
--- OUTSIDE RECORDS SUMMARY | 2025-04-02 07:40 | XMS_ITS | Encounter Summary ---
Author Organization [facility] Address [address] [place] [address] Care Team Providers Care Retanned Leather Roller Name Role Phone Fiordaliza Snell MD Primary [...] file Legal Sex Female 2:43 AM CASH APPLICATIONS SPECIALIST Gender Identity Not on file Sexual Orientation Not on file documented as of this encounter Plan of Treatment Not on file documented as of this encounter Visit Diagnoses Diagnosis Pelvic peritoneal adhesions, female (postoperative) (postinfection)- Primary documented in this encounter Additional Health Concerns Infection Onset Date Last Indicated Resolved Time R/O COVID-19 07/02/2020 07/02/2020 07/02/2020 8:53 PM CASH APPLICATIONS SPECIALIST MRSA Comment:Resolved per Type and Duration of Precautions Recommended for Selected Infections and Conditions document 2023 update 07/02/2020 07/02/2020 03/16/20 24 10:58 AM CDT R/O COVID-19 07/10/2020 07/10/2020 07/10/2020 5:01 PM CASH APPLICATIONS SPECIALIST documented as of this encounter Care Teams Retanned Leather Roller Relationship Specialty Start Date End Date Fiordaliza Snell MD PCP - General Family Practice 09/09/22 documented as of this encounter
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
--- OUTSIDE RECORDS SUMMARY | 2025-04-02 07:40 | XMS_ITS | Encounter Summary ---
Author Organization [facility] Address [address] [place] [address] Care Team Providers Care Coding Tech Name Role Phone Fiordaliza Snell MD Primary Care Provider Encounter Details Date Type Department Care Team (Late st Contact Info) Description 05/06/2001 Emergency [facility] Pratik Fisher MD [address], [place] [id number] Er, Authorized P NO ADDRESS ON FILE ABDOMINAL PAIN OTHER SPEC SITE (Primary Dx) Social History Tobacco Use Types Packs/Day Years Used Date Smoking Tobacco: Never Assessed Comments Unknown Sex and Gender Information Value Date Recorded Sex Assigned at Not on file Legal Sex Female 2:43 AM LITHOGRAPHER HELPER Gender Identity Not on file Sexual Orientation Not on file documented as of this encounter Plan of Treatment Not on file documented as of this encounter Visit Diagnoses Diagnosis Abdominal pain, other specified site- Primary documented in this encounter Additional Health Concerns Infection Onset Date Last Indicated Resolved Time R/O COVID-19 07/02/2020 07/02/2020 07/02/2020 8:53 PM LITHOGRAPHER HELPER MRSA Comment:Resolved per Type and Duration of Precautions Recommended for Selected Infections and Conditions document 2023 update 07/02/2020 07/02/2020 03/16/20 10:58 AM CDT R/O COVID-19 07/10/2020 07/10/2020 07/10/2020 5:01 PM LITHOGRAPHER HELPER documented as of this encounter Care Teams Coding Tech Relationship Specialty Start Date End Date Fiordaliza Snell MD PCP - General Family Practice 09/09/22 documented as of this encounter
--- OUTSIDE RECORDS SUMMARY | 2025-04-02 07:40 | XMS_ITS | Encounter Summary ---
Author Organization [facility] Address [address] [place] [address] Care Team Providers Care Design Manager Name Role Phone Fiordaliza Snell MD [...] on file Legal Sex Female 2:43 AM WORK ORDER DETAILER Gender Identity Not on file Sexual Orientation Not on file documented as of this encounter Plan of Treatment Not on file documented as of this encounter Visit Diagnoses Diagnosis Other and unspecified ovarian cyst- Primary documented in this encounter Additional Health Concerns Infection Onset Date Last Indicated Resolved Time R/O COVID-19 07/02/2020 07/02/2020 07/02/2020 8:53 PM WORK ORDER DETAILER MRSA Comment:Resolved per Type and Duration of Precautions Recommended for Selected Infections and Conditions document 2023 update 07/02/2020 07/02/2020 03/16/20 24 10:58 AM CDT R/O COVID-19 07/10/2020 07/10/2020 07/10/2020 5:01 PM WORK ORDER DETAILER documented as of this encounter Care Teams Design Manager Relationship Specialty Start Date End Date Fiordaliza Snell MD PCP - General Family Practice 09/09/22 documented as of this encounter
--- OUTSIDE RECORDS SUMMARY | 2025-04-02 07:40 | XMS_ITS | Patient Health Record ---
Author Organization [facility] Address [address] [place] [address] Care Team Providers Care Attendant Sales Name Role Phone Hayley Bautista Unavailable [phone] Reason For Referral No Information Medications Medication SIG (Take, Route, Frequency, Duration) Notes Start Date End Date Status Myrbetriq 50 MG Tablet Extended Release 24 Hour Oral Active Ondansetron 4 MG Tablet Disintegrating Oral Active Cefpodoxime Proxetil 200 MG Tablet Oral Active Dicyclomine HCl 10 MG Capsule Oral Active Nystatin-Triamcinolone 556279-8.1 UNIT/GM Cream External Active Pregabalin 100 MG Capsule Oral Active Acetaminophen Extra Strength 500 MG Tablet Oral Activ e Hydrocortisone 10 MG Tablet Oral Active rOPINIRole HCl 0.5 MG Tablet Oral Active SUMAtriptan Succinate 6 mg/0.5 mL Solution Subcutaneous Active rOPINIRole HCl 1 MG Tablet Oral Active SOLIFENACIN 10 MG TABLET *Reorder from [email or web address] for eRx and Interaction Alerts* Active Escitalopram [...] Fluconazole 200 MG Tablet Oral Active Nystop 723900 UNIT/GM Powder External Active Ciprofloxacin HCl 500 MG Tablet Oral Active oxyCODONE HCl 5 MG Tablet Oral Active ADVANCED ANTACID 200-200-20 mg/5 mL Suspension Oral *Reorder from [facility] for eRx and Interaction Alerts* Active Cyclobenzaprine [...] Medicare Replacement/ Advantage - Ppo [address] [address] [place] [address] [id number] JJ MOYA Self - patient is the insured
--- OUTSIDE RECORDS SUMMARY | 2025-04-02 07:40 | XMS_ITS | Encounter Summary ---
Author Organization [facility] Address [address] [place] [address] Care Team Providers Care Rn Gastroenterology Name Role Phone Fiordaliza Snell MD Primary Care Provider Encounter Details Date Type Department Care Team (Late st Contact Info) Description 04/18/2003 Emergency [facility] L Otilia Rose MD [address], [place] [phone] Er, Authorized P NO ADDRESS ON FILE ABDOMINAL PAIN RLQ (Primary Dx) Social History Tobacco Use Types Packs/Day Years Used Date Smoking Tobacco: Never Assessed Comments Unknown Sex and Gender Information Value Date Recorded Sex Assigned at Not on file Legal Sex Female 2:43 AM SCHOOL CROSSING GUARD Gender Identity Not on file Sexual Orientation Not on file documented as of this encounter Plan of Treatment Not on file documented as of this encounter Visit Diagnoses Diagnosis Abdominal pain, right lower quadrant- Primary documented in this encounter Additional Health Concerns Infection Onset Date Last Indicated Resolved Time R/O COVID-19 07/02/2020 07/02/2020 07/02/2020 8:53 PM SCHOOL CROSSING GUARD MRSA Comment:Resolved per Type and Duration of Precautions Recommended for Selected Infections and Conditions document 2023 update 07/02/2020 07/02/2020 03/16/20 24 10:58 AM CDT R/O COVID-19 07/10/2020 07/10/2020 07/10/2020 5:01 PM SCHOOL CROSSING GUARD documented as of this encounter Care Teams Rn Gastroenterology Relationship Specialty Start Date End Date Fiordaliza Snell MD PCP - General Family Practice 09/09/22 documented as of this encounter
--- OUTSIDE RECORDS SUMMARY | 2025-04-02 07:40 | XMS_ITS | Encounter Summary ---
Author Organization [facility] Address [address] [place] [address] Care Team Providers Care Breast Worker Name Role Phone Fiordaliza Snell MD [...] file Legal Sex Female 2:43 AM BONE PULLER Gender Identity Not on file Sexual Orientation Not on file documented as of this encounter Plan of Treatment Not on file documented as of this encounter Visit Diagnoses Diagnosis Surgical or other procedure not carried out because of patient's decision- Primary documented in this encounter Additional Health Concerns Infection Onset Date Last Indicated Resolved Time R/O COVID-19 07/02/2020 07/02/2020 07/02/2020 8:53 PM BONE PULLER MRSA Comment:Resolved per Type and Duration of Precautions Recommended for Selected Infections and Conditions document 2023 update 07/02/2020 07/02/2020 03/16/20 24 10:58 AM CDT R/O COVID-19 07/10/2020 07/10/2020 07/10/2020 5:01 PM BONE PULLER documented as of this encounter Care Teams Breast Worker Relationship Specialty Start Date End Date Fiordaliza Snell MD PCP - General Family Practice 09/09/22 documented as of this encounter
--- OUTSIDE RECORDS SUMMARY | 2025-04-02 07:40 | XMS_ITS | Encounter Summary ---
Author Organization [facility] Address [address] [place] [address] Care Team Providers Care Meat Service Team Member Name Role Phone Fiordaliza Snell MD Primary [...] on file Legal Sex Female 2:43 AM STUDENT CAREER DEVELOPMENT SPECIALIST Gender Identity Not on file Sexual Orientation Not on file documented as of this encounter Plan of Treatment Not on file documented as of this encounter Visit Diagnoses Diagnosis Chronic salpingitis and oophoritis- Primary documented in this encounter Additional Health Concerns Infection Onset Date Last Indicated Resolved Time R/O COVID-19 07/02/2020 07/02/2020 07/02/2020 8:53 PM STUDENT CAREER DEVELOPMENT SPECIALIST MRSA Comment:Resolved per Type and Duration of Precautions Recommended for Selected Infections and Conditions document 2023 update 07/02/2020 07/02/2020 03/16/20 24 10:58 AM CDT R/O COVID-19 07/10/2020 07/10/2020 07/10/2020 5:01 PM STUDENT CAREER DEVELOPMENT SPECIALIST documented as of this encounter Care Teams Meat Service Team Member Relationship Specialty Start Date End Date Fiordaliza Snell MD PCP - General Family Practice 09/09/22 documented as of this encounter
--- OUTSIDE RECORDS SUMMARY | 2025-04-02 07:40 | XMS_ITS | Clinical Summary ---
Author Organization [facility] Address [address] [place] [address] Phone Care Team Providers Care Him Coder Name Role Phone Fiordaliza Snell MD Primary [...] migh t be different from the original. Md Do Resident Urgent Care - Dr. Eddie Tapia MD, FAC, [facility] - [address] [facility] Problem Noted Date Diagnosed Date YAJAIRA (obstructive [...] NOS Added automatically from request for surgery [id number] Last Assessment & Plan: Healing fusion C6-7 [...] (09/14/2021): Added automatically from request for surgery [id number] Cervical pain (neck) 06/13/2018 Intractable pain 10/13/2011 [...] COVID-19 VACCINE - EMERGENCY USE AUTHORIZATION, MRNA, [id number](PF) 30 MCG/0.3 ML IM SUSP 12/13/2020,11/20/2020 (PNEUMOVAX [...] on file Legal Sex Female 2:43 AM CLEANER AND TRIMMER Gender Identity Not on file Sexual Orientation [...] CDT Respiratory Rate 18 07/12/2020 9:24 PM CLEANER AND TRIMMER Oxygen Saturation 97% 04/20/2021 2:12 PM CDT Inhaled Oxygen Concentration - - Weight 91.6 kg (202 lb) 08/07/2020 2:15 PM CLEANER AND TRIMMER Height 172.7 cm (5' 8) 04/20/2021 2:12 PM CDT Body Mass Index 30.71 08/07/2020 2:15 PM CLEANER AND TRIMMER Plan of Treatment Health Maintenance Due Date [...] Colorectal Cancer Screening 11/28/2029 Insurance [employer]ET[employer] PPO [facility] DUAL COMPLETE PPO [facility] [id number] Advance Directives For more information, please contact: [phone] * Full Code (Latest Code Status on File) Date Activated Date Inactivated Comments 07/02/2020 10:50 PM 07/13/2020 1:53 PM * Full Code Date Activated Date Inactivated Comments 06/26/2011 3:20 AM 06/26/2011 8:40 PM Care Teams Him Coder Relationship Specialty Start Date End Date Fiordaliza Snell MD PCP - General Family Practice 09/09/22
--- OUTSIDE RECORDS SUMMARY | 2025-04-02 07:41 | XMS_ITS | Encounter Summary ---
Author Organization [facility] Address [address] [place] [address] Care Team Providers Care Biodiesel Product Development Manager Name Role Phone Fiordaliza Snell MD [...] on file Legal Sex Female 2:43 AM JUNIOR ADMINISTRATIVE ASSISTANT Gender Identity Not on file Sexual Orientation Not on file documented as of this encounter Plan of Treatment Not on file documented as of this encounter Visit Diagnoses Diagnosis Lumbago- Primary documented in this encounter Additional Health Concerns Infection Onset Date Last Indicated Resolved Time R/O COVID-19 07/02/2020 07/02/2020 07/02/2020 8:53 PM JUNIOR ADMINISTRATIVE ASSISTANT MRSA Comment:Resolved per Type and Duration of Precautions Recommended for Selected Infections and Conditions document 2023 update 07/02/2020 07/02/2020 03/16/20 24 10:58 AM CDT R/O COVID-19 07/10/2020 07/10/2020 07/10/2020 5:01 PM JUNIOR ADMINISTRATIVE ASSISTANT documented as of this encounter Care Teams Biodiesel Product Development Manager Relationship Specialty Start Date End Date Fiordaliza Snell MD PCP - General Family Practice 09/09/22 documented as of this encounter
--- OUTSIDE RECORDS SUMMARY | 2025-04-02 07:41 | XMS_ITS | Encounter Summary ---
Author Organization [facility] Address [address] [place] [address] Care Team Providers Care Parts Puller Name Role Phone Fiordaliza Snell MD Primary [...] on file Legal Sex Female 2:[address] LIGHT INSPECTOR Gender Identity Not on file Sexual Orientation Not on file documented as of this encounter Plan of Treatment Not on file documented as of this encounter Visit Diagnoses Diagnosis Closed fracture of lateral malleolus- Primary documented in this encounter Additional Health Concerns Infection Onset Date Last Indicated Resolved Time R/O COVID-19 07/02/2020 07/02/2020 07/02/2020 8:[address] LIGHT INSPECTOR MRSA Comment:Resolved per Type and Duration of Precautions Recommended for Selected Infections and Conditions document 2023 update 07/02/2020 07/02/2020 03/16/20 10:58 AM CDT R/O COVID-19 07/10/2020 07/10/2020 07/10/2020 5:[address] LIGHT INSPECTOR documented as of this encounter Care Teams Parts Puller Relationship Specialty Start Date End Date Fiordaliza Snell MD PCP - General Family Practice 09/09/22 documented as of this encounter
--- OUTSIDE RECORDS SUMMARY | 2025-04-02 07:41 | XMS_ITS | Patient Health Record ---
Author Organization [facility] [place] Address [address] [place] [address] Support Name Relationship Address Phone JJ MOYA Guarantor Unknown [phone] Allergies Allergen (clinical drug ingredient) Drug/Non Drug [...] Status W/U Status Risk Notes Problem Hyperlipidemia (06491923) Hyperlipidemia, unspecified (E78.5) Active confirmed Diagnose d by lab results,stab le Problem Moderate recurrent major depression (75662418) Major depressive disorder, recurrent, moderate (F33.1) Active confirmed Problem Restless legs syndrome (97946904) Restless legs syndrome (G25.81) Active confirmed Problem Insomnia (979532069) Insomnia, unspecified (G47.00) Active confirmed Problem Chronic pain (09130650) Other chronic pain (G89.29) Active confirmed Diagnosed by history. Needs improvement Problem Essential hypertension (07664147) Essential (primary) hypertension (I10) Active confirmed Diagnosed by history. Stable on medication. 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 Stable on medication. Problem Cervicalgia (74215505) Cervicalgia (M54.2) Active confirmed Diagn osed by history. Stable on medication. Problem Sciatica (93840823) Lumbago with sciatica, right side (M54.41) Active confirmed Diagnosed by history. Needs improvement Problem Post-laminectomy syndrome (69157012) Postlaminectomy syndrome, not elsewhere classified (M96.1) Active confirmed Diagnosed by history. Needs improvement Problem Nausea (841261035) Nausea (R11.0) Active confirmed Diagnosed by history. Needs improvement Problem High risk drug monitoring status (353792418) termination clerk current use of opiate analgesic (Z79.891) Active confirmed Diagnose d by history. Stable on medication. Problem Body mass index 30.00 to 34.99 (975033102901130 ) Body mass index (BMI) 33.0-33.9, adult (Z68.33) Active confirmed Problem Opioid dependence (54685935) Uncomplicated opioid dependence (F11.20) Active confirmed Diagnosed by history. Stable on medication. Problem Lumbosacral spondylosis without myelopathy (93760111) Spondylosis of lumbar region without myelopathy or radiculopathy (M47.816) Active confirmed Diagnosed by history. Needs improvement Problem Sciatica (31031642) Sciatica of right side (M54.31) Active confirmed Diagnosed by history. Needs improvement Problem Neuritis of left ulnar nerve (559297370193320 00) Neuritis of left ulnar nerve (G56.22) Active confirmed Diagnosed by history. Resolved with surgical procedure Problem History of spinal fusion (17783225407545) History of spinal fusion (Z98.1) Active confirmed Diagnosed by history. 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 Stable on medication. 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 Stable on medication. Plan Of Treatment Pending Test Test Name Order Date MRI : Lumbar with and without Contrast 0 11/22/2016 Hemoglobin A1c 04/29/2017 Urinalysis, Routine 02/08/2014 Urinalysis, Routine 03/31/2015 CBC With Differential/Platelet 2013 CBC With Differential/Platelet 2016 CBC With Differential/Platelet 2014 Lipid Panel With LDL/HDL Ratio 4 Lipid Panel With LDL/HDL Ratio 5 Lipid Panel 12/03/2016 Lipid Panel 04/29/2017 Comp. Metabolic Panel (14) 02/08/2014 Comp. Metabolic Panel (14) 04/29/2017 Comp. Metabolic Panel (14) 03/31/2015 Medical (General) History Medical History History ICD Code Major depressive disorder, recurrent, mo derate F33.1 Essential (primary) hypertension I10 Insomnia, unspecified G47.00 Restless legs syndrome G25.81 Other polyosteoarthritis M15.8 Hyperlipidemia, unspecified E78.5 Hyperlipidemia, unspecified History of spinal fusion Uncomplicated opioid dependence termination clerk current use of opiate analgesi c Cervicalgia [...] Reason Date(Month/Year) Back pain/ Nerve pain admiss [facility] and transferred to [facility] October 2016 Back/ nerve pain [place] [facility] September 2015
--- OUTSIDE RECORDS SUMMARY | 2025-04-02 07:41 | XMS_ITS | Clinical Summary ---
Author Organization [facility] Address [address] [place] [address] Care Team Providers Care Administrative Intern Name Role Phone Unavailable Primary Care Provider [...] Comments Blood Pressure 152/77 05/21/2019 8:00 AM BLUEPRINT MACHINE OPERATOR Pulse 75 05/21/2019 8:00 AM BLUEPRINT MACHINE OPERATOR Temperature 36.3 C (97.3 F) 05/21/2019 8:00 AM BLUEPRINT MACHINE OPERATOR Respiratory Rate 18 05/21/2019 8:00 AM BLUEPRINT MACHINE OPERATOR Oxygen Saturation 98% 05/21/2019 8:00 AM BLUEPRINT MACHINE OPERATOR Inhaled Oxygen Concentration - - Weight 108.9 kg (240 lb 1.6 oz) 05/09/2019 6:52 AM BLUEPRINT MACHINE OPERATOR Height 172.7 cm (5' 8) 04/18/2019 12:2 [...]
--- OUTSIDE RECORDS SUMMARY | 2025-04-02 07:41 | XMS_ITS | Encounter Summary ---
Author Organization [facility] Address [address] [place] [address] Care Team Providers Care Cfo Name Role Phone Fiordaliza Snell MD Primary [...] on file Legal Sex Female 2:43 AM POWER AND RECOVERY SUPERVISOR Gender Identity Not on file Sexual Orientation Not on file documented as of this encounter Plan of Treatment Not on file documented as of this encounter Visit Diagnoses Diagnosis Excessive or frequent menstruation- Primary documented in this encounter Additional Health Concerns Infection Onset Date Last Indicated Resolved Time R/O COVID-19 07/02/2020 07/02/2020 07/02/2020 8:53 PM POWER AND RECOVERY SUPERVISOR MRSA Comment:Resolved per Type and Duration of Precautions Recommended for Selected Infections and Conditions document 2023 update 07/02/2020 07/02/2020 03/16/20 24 10:58 AM CDT R/O COVID-19 07/10/2020 07/10/2020 07/10/2020 5:01 PM POWER AND RECOVERY SUPERVISOR documented as of this encounter Care Teams Cfo Relationship Specialty Start Date End Date Fiordaliza Snell MD PCP - General Family Practice 09/09/22 documented as of this encounter
== END 2025-04-02 07:37 | disposition home or self-care (01) ==
LOC: ANHVASCINF 07:37
PROVIDERS: PCP Internal Medicine; Visit Provider Nurse Practitioner
DX: N39.0 Urinary tract infection, site not specified (principal)
CPT/HCPCS: 99202; G0463

== ENCOUNTER 2025-04-05 11:50 | Outpatient (CLI) | payer MEDICARE, SELFPAY ==
[2025-04-05 12:19] LABS: Hematocrit 37.7 % (37.0-47.0); Hemoglobin 12.2 g/dL (12.0-15.0); Immature Granulocyte Percent A 0.4 % (0-0.5); Lymphocytes Absolute Auto 1.62 K/mm3 (0.9-3.2); Mean Corpuscular HGB Conc 32.4 g/dl (32-36); Mean Corpuscular Hemoglobin 27.8 pg (26-34); Mean Corpuscular Volume 85.9 fl (80-100); Nucleated Red Blood Cells Absolute Auto 0.000 K/mm3 (0.0-0.012); Nucleated Red Blood Cells Perc 0.0 % (0.0-0.2); Platelet Count Result 188 k/mm3 (150-375); Red Blood Count 4.39 M/mm3 (4.2-5.4); White Blood Count 5.7 K/mm3 (4.5-10.0)
[2025-04-05 12:38] LABS: Alanine Aminotransferase 35 U/L (6-35); Albumin Level 4.0 g/dL (3.5-5.1); Alkaline Phosphatase 77 U/L (38-126); Anion Gap 7 mmol/L (4-12); Aspartate Amino Transferase 33 U/L (14-36); Bilirubin,Total 0.9 mg/dL (0.2-1.3); Blood Urea Nitrogen 13 mg/dL (7-17); Calcium 8.7 mg/dL (8.4-10.2); Carbon Dioxide 30 mmol/L (22-30); Chloride 101 mmol/L (98-107); Estimated Glomerular Filt Rate > 60; Glucose 100 mg/dL (65-110); Sodium 138 mmol/L (137-145); Total Protein 7.3 g/dL (6.3-8.2)
[2025-04-05 12:46] LABS: Potassium 3.5 mmol/L (3.4-5.0)
--- OUTSIDE RECORDS SUMMARY | 2025-04-05 13:03 | XMS_ITS | Clinical Summary ---
Author Organization [facility] Address [address] [place] [address] Phone Care Team Providers Care Supervisor Ditching Name Role Phone Fiordaliza Snell MD Primary [...] migh t be different from the original. Civil Engineering Manager - Dr. Eddie Tapia MD, FAC, [facility] - [address] [facility] Problem Noted Date Diagnosed Date YAJAIRA (obstructive [...] NOS Added automatically from request for surgery [id number] Last Assessment & Plan: Healing fusion C6-7 [...] (09/14/2021): Added automatically from request for surgery [id number] Cervical pain (neck) 06/13/2018 Intractable pain 10/13/2011 [...] COVID-19 VACCINE - EMERGENCY USE AUTHORIZATION, MRNA, [id number](PF) 30 MCG/0.3 ML IM SUSP 12/13/2020,11/20/2020 (PNEUMOVAX [...] on file Legal Sex Female 2:43 AM LEARNING CENTER COORDINATOR Gender Identity Not on file Sexual [...] CDT Respiratory Rate 18 07/12/2020 9:24 PM LEARNING CENTER COORDINATOR Oxygen Saturation 97% 04/20/2021 2:12 PM CDT Inhaled Oxygen Concentration - - Weight 91.6 kg (202 lb) 08/07/2020 2:15 PM LEARNING CENTER COORDINATOR Height 172.7 cm (5' 8) 04/20/2021 2:12 PM CDT Body Mass Index 30.71 08/07/2020 2:15 PM LEARNING CENTER COORDINATOR Plan of Treatment Health Maintenance Due [...] Colorectal Cancer Screening 11/28/[address] [facility] DUAL COMPLETE PPO [facility] [id number] Advance Directives For more information, please contact: [phone] * Full Code (Latest Code Status on File) Date Activated Date Inactivated Comments 07/02/2020 10:50 PM 07/13/2020 1:53 PM * Full Code Date Activated Date Inactivated Comments 06/26/2011 3:20 AM 06/26/2011 8:40 PM Care Teams Supervisor Ditching Relationship Specialty Start Date End Date Fiordaliza Snell MD PCP - General Family Practice 09/09/22
--- OUTSIDE RECORDS SUMMARY | 2025-04-05 13:03 | XMS_ITS | Encounter Summary ---
Author Organization [facility] Healthcare Address [address] [place] [address] Care Team Providers Care Multi Line Claims Adjuster Name Role Phone Frazier Shilpatemo Law DO Primary Care Provider Lidia Barajas MD Unavailable Ab Melara MD Primary Care Provid er Encounter Details Date Type Department Care Team (Late st Contact Info) Description 03/19/2019 Telephone [facility] - Interventional Radiology [address] [place] [address] Nhung French RN Social History [...] file Legal Sex Female 11:49 PM DREDGE BOAT ENGINEER Gender Identity Not on file Sexual [...] MRSA 12/27/2021 03/06/2022 09/02/2022 3:05 AM DREDGE BOAT ENGINEER documented as of this encounter Care Teams Multi Line Claims Adjuster Relationship Specialty Start Date End Date Shilpa Frazier DO PCP - General 06/12/18 07/15/21 Ab Melara MD [address] [address] PCP - General Family Medicine 07/16/21 Lidia Barajas MD Anesthesiologist Anesthesiology 01/13/20 documented as of this encounter
--- OUTSIDE RECORDS SUMMARY | 2025-04-05 13:03 | XMS_ITS | Encounter Summary ---
Author Organization [facility] Address [address] [place] [address] Care Team Providers Care Medical Affairs Specialist Name Role Phone Fiordaliza Snell MD Primary Care Provider Encounter Details Date Type Department Care Team (Latest Contact Info) Description 11/13/2004 Outpatient Historical [facility] RONALD Garcia, Anjali Gupta MD NO ADDRESS ON FILE LUMP OR MASS IN BREAST (Primary Dx) Social History Tobacco Use Types Packs/Day Years Used Date Smoking Tobacco: Never Assessed Comments Unknown Sex and Gender Information Value Date Recorded Sex Assigned at Not on file Legal Sex Female 2:43 AM ROTOR PLATE WASHER Gender Identity Not on file Sexual Orientation Not on file documented as of this encounter Plan of Treatment Not on file documented as of this encounter Visit Diagnoses Diagnosis Lump or mass in breast- Primary documented in this encounter Additional Health Concerns Infection Onset Date Last Indicated Resolved Time R/O COVID-19 07/02/2020 07/02/2020 07/02/2020 8:53 PM ROTOR PLATE WASHER MRSA Comment:Resolved per Type and Duration of Precautions Recommended for Selected Infections and Conditions document 2023 update 07/02/2020 07/02/2020 03/16/20 24 10:58 AM CDT R/O COVID-19 07/10/2020 07/10/2020 07/10/2020 5:01 PM ROTOR PLATE WASHER documented as of this encounter Care Teams Medical Affairs Specialist Relationship Specialty Start Date End Date Fiordaliza Snell MD PCP - General Family Practice 09/09/22 documented as of this encounter
--- OUTSIDE RECORDS SUMMARY | 2025-04-05 13:03 | XMS_ITS | Encounter Summary ---
Author Organization [facility] Address [address] [place] [address] Care Team Providers Care Director External Communications Name Role Phone Fiordaliza Snell MD Primary Care Provider Encounter Details Date Type Department Care Team (Late st Contact Info) Description 04/18/2003 Emergency [facility] EMERGENCY [facility] L Otilia Rose MD [address] [place] [id number] Er, Authorized P NO ADDRESS ON FILE ABDOMINAL PAIN RLQ (Primary Dx) Social History Tobacco Use Types Packs/Day Years Used Date Smoking Tobacco: Never Assessed Comments Unknown Sex and Gender Information Value Date Recorded Sex Assigned at Not on file Legal Sex Female 2:43 AM CONTACT CENTER CONSULTANT Gender Identity Not on file Sexual Orientation Not on file documented as of this encounter Plan of Treatment Not on file documented as of this encounter Visit Diagnoses Diagnosis Abdominal pain, right lower quadrant- Primary documented in this encounter Additional Health Concerns Infection Onset Date Last Indicated Resolved Time R/O COVID-19 07/02/2020 07/02/2020 07/02/2020 8:53 PM CONTACT CENTER CONSULTANT MRSA Comment:Resolved per Type and Duration of Precautions Recommended for Selected Infections and Conditions document 2023 update 07/02/2020 07/02/2020 03/16/20 24 10:58 AM CDT R/O COVID-19 07/10/2020 07/10/2020 07/10/2020 5:01 PM CONTACT CENTER CONSULTANT documented as of this encounter Care Teams Director External Communications Relationship Specialty Start Date End Date Fiordaliza Snell MD PCP - General Family Practice 09/09/22 documented as of this encounter
--- OUTSIDE RECORDS SUMMARY | 2025-04-05 13:03 | XMS_ITS ---
Author Organization [facility] Address [facility] [place] [address] Care Team Providers Care Marine Diesel Technician Name Role Phone Lidia Barajas MD Unavailable Shilpa Gandhi MD Unavailable Iron Galindo PA-C Primary Care Provide r Cresencio Ghosh MD Unavailable [phone] Cresencio Ghosh MD Unavailable [phone] Leanna Howe MA Unavailable [phone] [facility] - [facility] Status:Identified (Enrolling) Start date:04/04/2025 Enrollment reason:Identified using payor list Case Team Name Relationship Phone Leanna Howe MA(Responsible Staff) Care Co ordination Specialist [phone] Continued Care and Services Coordination
--- OUTSIDE RECORDS SUMMARY | 2025-04-05 13:03 | XMS_ITS | Encounter Summary ---
Author Organization [facility] Address [address] [place] [address] Care Team Providers Care Manager Army Name Role Phone Fiordaliza Snell MD Primary [...] on file Legal Sex Female 2:43 AM BUILDING MOVER Gender Identity Not on file Sexual Orientation Not on file documented as of this encounter Plan of Treatment Not on file documented as of this encounter Visit Diagnoses Diagnosis Closed fracture of lateral malleolus- Primary documented in this encounter Additional Health Concerns Infection Onset Date Last Indicated Resolved Time R/O COVID-19 07/02/2020 07/02/2020 07/02/2020 8:53 PM BUILDING MOVER MRSA Comment:Resolved per Type and Duration of Precautions Recommended for Selected Infections and Conditions document 2023 update 07/02/2020 07/02/2020 03/16/20 10:58 AM CDT R/O COVID-19 07/10/2020 07/10/2020 07/10/2020 5:01 PM BUILDING MOVER documented as of this encounter Care Teams Manager Army Relationship Specialty Start Date End Date Fiordaliza Snell MD PCP - General Family Practice 09/09/22 documented as of this encounter
--- OUTSIDE RECORDS SUMMARY | 2025-04-05 13:03 | XMS_ITS | Encounter Summary ---
Author Organization [facility] Healthcare Address [address] [place] [address] Care Team Providers Care Advertising Assistant Name Role Phone Shilpa Frazier DO Primary Care Provider Lidia Barajas MD Unavailable Ab Melara MD Primary Care Provid er Encounter Details Date Type Department Care Team (Late st Contact Info) Description 03/15/2019 Telephone [facility] - Interventional Radiology [address] [place] [address] Philly Aguirre RN Social History [...] on file Legal Sex Female 11:49 PM WINDOWS SYSTEMS ARCHITECT Gender Identity Not on file Sexual [...] DT MRSA 12/27/2021 03/06/2022 09/02/2022 3:05 AM WINDOWS SYSTEMS ARCHITECT documented as of this encounter Care Teams Advertising Assistant Relationship Specialty Start Date End Date Shilpa Frazier DO PCP - General 06/12/18 07/15/21 Ab Melara MD [address] [address] PCP - General Family Medicine 07/16/21 Lidia Barajas MD Anesthesiologist Anesthesiology 01/13/20 documented as of this encounter
--- OUTSIDE RECORDS SUMMARY | 2025-04-05 13:03 | XMS_ITS | Encounter Summary ---
Author Organization [facility] Address [address] [place] [address] Care Team Providers Care Management Tech Name Role Phone Fiordaliza Snell MD [...] on file Legal Sex Female 2:43 AM FISHING ROD TRIMMER Gender Identity Not on file Sexual Orientation Not on file documented as of this encounter Plan of Treatment Not on file documented as of this encounter Visit Diagnoses Diagnosis Lumbago- Primary documented in this encounter Additional Health Concerns Infection Onset Date Last Indicated Resolved Time R/O COVID-19 07/02/2020 07/02/2020 07/02/2020 8:53 PM FISHING ROD TRIMMER MRSA Comment:Resolved per Type and Duration of Precautions Recommended for Selected Infections and Conditions document 2023 update 07/02/2020 07/02/2020 03/16/20 24 10:58 AM CDT R/O COVID-19 07/10/2020 07/10/2020 07/10/2020 5:01 PM FISHING ROD TRIMMER documented as of this encounter Care Teams Management Tech Relationship Specialty Start Date End Date Fiordaliza Snell MD PCP - General Family Practice 09/09/22 documented as of this encounter
--- OUTSIDE RECORDS SUMMARY | 2025-04-05 13:03 | XMS_ITS | Encounter Summary ---
Author Organization [facility] Address [address] [place] [address] Care Team Providers Care Rn Labor Delivery Name Role Phone Fiordaliza Snell MD Primary [...] on file Legal Sex Female 2:43 AM TRUMPET PLAYER Gender Identity Not on file Sexual Orientation Not on file documented as of this encounter Plan of Treatment Not on file documented as of this encounter Visit Diagnoses Diagnosis Unspecified symptom associated with female genital organs- Primary documented in this encounter Additional Health Concerns Infection Onset Date Last Indicated Resolved Time R/O COVID-19 07/02/2020 07/02/2020 07/02/2020 8:53 PM TRUMPET PLAYER MRSA Comment:Resolved per Type and Duration of Precautions Recommended for Selected Infections and Conditions document 2023 update 07/02/2020 07/02/2020 03/16/20 24 10:58 AM CDT R/O COVID-19 07/10/2020 07/10/2020 07/10/2020 5:01 PM TRUMPET PLAYER documented as of this encounter Care Teams Rn Labor Delivery Relationship Specialty Start Date End Date Fiordaliza Snell MD PCP - General Family Practice 09/09/22 documented as of this encounter
--- OUTSIDE RECORDS SUMMARY | 2025-04-05 13:03 | XMS_ITS | Encounter Summary ---
Author Organization [facility] Address [address] [place] [address] Care Team Providers Care Paint Mixer Name Role Phone Fiordaliza Snell MD [...] on file Legal Sex Female 2:43 AM FLOOR POLISHER Gender Identity Not on file Sexual Orientation Not on file documented as of this encounter Plan of Treatment Not on file documented as of this encounter Visit Diagnoses Diagnosis Pelvic peritoneal adhesions, female (postoperative) (postinfection)- Primary documented in this encounter Additional Health Concerns Infection Onset Date Last Indicated Resolved Time R/O COVID-19 07/02/2020 07/02/2020 07/02/2020 8:53 PM FLOOR POLISHER MRSA Comment:Resolved per Type and Duration of Precautions Recommended for Selected Infections and Conditions document 2023 update 07/02/2020 07/02/2020 03/16/20 24 10:58 AM CDT R/O COVID-19 07/10/2020 07/10/2020 07/10/2020 5:01 PM FLOOR POLISHER documented as of this encounter Care Teams Paint Mixer Relationship Specialty Start Date End Date Fiordaliza Snell MD PCP - General Family Practice 09/09/22 documented as of this encounter
--- OUTSIDE RECORDS SUMMARY | 2025-04-05 13:03 | XMS_ITS | Encounter Summary ---
Author Organization [facility] Address [address] [place] [address] Care Team Providers Care Wood Crew Supervisor Name Role Phone Fiordaliza Snell MD Primary Care Provider Encounter Details Date Type Department Care Team (Late st Contact Info) Description 10/10/2003 Emergency [facility] Franki Grimes, DO [address] [place] [address] Er, Authorized P NO ADDRESS ON FILE LUMBAGO (Primary Dx) Social History Tobacco Use Types Packs/Day Years Used Date Smoking Tobacco: Never Assessed Comments Unknown Sex and Gender Information Value Date Recorded Sex Assigned at Not on file Legal Sex Female 2:43 AM HYDROPULPER OPERATOR Gender Identity Not on file Sexual Orientation Not on file documented as of this encounter Plan of Treatment Not on file documented as of this encounter Visit Diagnoses Diagnosis Lumbago- Primary documented in this encounter Additional Health Concerns Infection Onset Date Last Indicated Resolved Time R/O COVID-19 07/02/2020 07/02/2020 07/02/2020 8:53 PM HYDROPULPER OPERATOR MRSA Comment:Resolved per Type and Duration of Precautions Recommended for Selected Infections and Conditions document 2023 update 07/02/2020 07/02/2020 03/16/20 24 10:58 AM CDT R/O COVID-19 07/10/2020 07/10/2020 07/10/2020 5:01 PM HYDROPULPER OPERATOR documented as of this encounter Care Teams Wood Crew Supervisor Relationship Specialty Start Date End Date Fiordaliza Snell MD PCP - General Family Practice 09/09/22 documented as of this encounter
--- OUTSIDE RECORDS SUMMARY | 2025-04-05 13:03 | XMS_ITS | Encounter Summary ---
Author Organization [facility] Healthcare Address [address] [place] [address] Care Team Providers Care Cloth Tearer Name Role Phone Shilpa Frazier DO Primary Care Provider Lidia Barajas MD Unavailable Ab Melara MD Primary Care Provid er Encounter Details Date Type Department Care Team (Late st Contact Info) Description 06/15/2018 Telephone [facility] [address]st [place] [address] Emil Clarke, RT Social History Tobacco Use Types Packs/Day Years Used Date Smoking Tobacco: Never Smokeless Tobacco: Never Alcohol Use Standard Drinks/Week Comments No 0 (1 standard drink = 0.6 oz pur e alcohol) Comments No Sex and Gender Information Value Date Recorded Sex Assigned at Not on file Legal Sex Female 11:49 PM ANIMAL RESCUER Gender Identity Not on file Sexual Orientation [...] DT MRSA 12/27/2021 03/06/2022 09/02/2022 3:05 AM ANIMAL RESCUER documented as of this encounter Care Teams Cloth Tearer Relationship Specialty Start Date End Date Frazier Shilpaolimpia aLw DO PCP - General 06/12/18 07/15/21 Ab Melara MD [address] [address] PCP - General Family Medicine 07/16/21 Lidia Barajas MD Anesthesiologist Anesthesiology 01/13/20 documented as of this encounter
--- OUTSIDE RECORDS SUMMARY | 2025-04-05 13:03 | XMS_ITS | Encounter Summary ---
Author Organization [facility] Address [address] [place] [address] Care Team Providers Care White Kid Buffer Name Role Phone Fiordaliza Snell MD Primary [...] file Legal Sex Female 2:43 AM TECHNICAL INSTRUCTOR COURSE DEVELOPER Gender Identity Not on file Sexual Orientation Not on file documented as of this encounter Plan of Treatment Not on file documented as of this encounter Visit Diagnoses Diagnosis Chronic salpingitis and oophoritis- Primary documented in this encounter Additional Health Concerns Infection Onset Date Last Indicated Resolved Time R/O COVID-19 07/02/2020 07/02/2020 07/02/2020 8:53 PM TECHNICAL INSTRUCTOR COURSE DEVELOPER MRSA Comment:Resolved per Type and Duration of Precautions Recommended for Selected Infections and Conditions document 2023 update 07/02/2020 07/02/2020 03/16/20 24 10:58 AM CDT R/O COVID-19 07/10/2020 07/10/2020 07/10/2020 5:01 PM TECHNICAL INSTRUCTOR COURSE DEVELOPER documented as of this encounter Care Teams White Kid Buffer Relationship Specialty Start Date End Date Fiordaliza Snell MD PCP - General Family Practice 09/09/22 documented as of this encounter
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
--- OUTSIDE RECORDS SUMMARY | 2025-04-05 13:03 | XMS_ITS | Encounter Summary ---
Author Organization [facility] Address [address] [place] [address] Care Team Providers Care Osha Inspector Name Role Phone Fiordaliza Snell MD [...] on file Legal Sex Female 2:43 AM DIP TUBE ASSEMBLER MACHINE Gender Identity Not on file Sexual Orientation Not on file documented as of this encounter Plan of Treatment Not on file documented as of this encounter Visit Diagnoses Diagnosis Excessive or frequent menstruation- Primary documented in this encounter Additional Health Concerns Infection Onset Date Last Indicated Resolved Time R/O COVID-19 07/02/2020 07/02/2020 07/02/2020 8:53 PM DIP TUBE ASSEMBLER MACHINE MRSA Comment:Resolved per Type and Duration of Precautions Recommended for Selected Infections and Conditions document 2023 update 07/02/2020 07/02/2020 03/16/20 24 10:58 AM CDT R/O COVID-19 07/10/2020 07/10/2020 07/10/2020 5:01 PM DIP TUBE ASSEMBLER MACHINE documented as of this encounter Care Teams Osha Inspector Relationship Specialty Start Date End Date Fiordaliza Snell MD PCP - General Family Practice 09/09/22 documented as of this encounter
--- OUTSIDE RECORDS SUMMARY | 2025-04-05 13:03 | XMS_ITS | Encounter Summary ---
Author Organization [facility] Address [address] [place] [address] Care Team Providers Care Selenium Plant Operator Name Role Phone Fiordaliza Snell [...] on file Legal Sex Female 2:43 AM SCRIPT READER Gender Identity Not on file Sexual Orientation Not on file documented as of this encounter Plan of Treatment Not on file documented as of this encounter Visit Diagnoses Diagnosis Unspecified symptom associated with female genital organs- Primary documented in this encounter Additional Health Concerns Infection Onset Date Last Indicated Resolved Time R/O COVID-19 07/02/2020 07/02/2020 07/02/2020 8:53 PM SCRIPT READER MRSA Comment:Resolved per Type and Duration of Precautions Recommended for Selected Infections and Conditions document 2023 update 07/02/2020 07/02/2020 03/16/20 24 10:58 AM CDT R/O COVID-19 07/10/2020 07/10/2020 07/10/2020 5:01 PM SCRIPT READER documented as of this encounter Care Teams Selenium Plant Operator Relationship Specialty Start Date End Date Fiordaliza Snell MD PCP - General Family Practice 09/09/22 documented as of this encounter
--- OUTSIDE RECORDS SUMMARY | 2025-04-05 13:03 | XMS_ITS | Clinical Summary ---
Author Organization [facility] Address [address] [place] [address] Care Team Providers Care Construction Sales Manager Name Role Phone Unavailable Primary Care [...] Comments Blood Pressure 152/77 05/21/2019 8:00 AM CLEANER HOUSEKEEPING Pulse 75 05/21/2019 8:00 AM CLEANER HOUSEKEEPING Temperature 36.3 C (97.3 F) 05/21/2019 8:00 AM CLEANER HOUSEKEEPING Respiratory Rate 18 05/21/2019 8:00 AM CLEANER HOUSEKEEPING Oxygen Saturation 98% 05/21/2019 8:00 AM CLEANER HOUSEKEEPING Inhaled Oxygen Concentration - - Weight 108.9 kg (240 lb 1.6 oz) 05/09/2019 6:52 AM CLEANER HOUSEKEEPING Height 172.7 cm (5' 8) 04/18/2019 12:2 [...]
--- OUTSIDE RECORDS SUMMARY | 2025-04-05 13:03 | XMS_ITS | Encounter Summary ---
Author Organization [facility] Address 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 Gender Identity Not on file Sexual Orientation Not on file documented as of this encounter Plan of Treatment Not on file documented as of this encounter Visit Diagnoses Diagnosis Metrorrhagia- Primary documented in this encounter Additional Health Concerns Infection Onset Date Last Indicated Resolved Time R/O COVID-19 07/02/2020 07/02/2020 07/02/2020 8:53 PM FISHING REEL ASSEMBLER MRSA Comment:Resolved per Type and Duration of Precautions Recommended for Selected Infections and Conditions document 2023 update 07/02/2020 07/02/2020 03/16/20 24 10:58 AM CDT R/O COVID-19 07/10/2020 07/10/2020 07/10/2020 5:01 PM FISHING REEL ASSEMBLER documented as of this encounter Care Teams Chemical Research Engineer Relationship Specialty Start Date End Date Fiordaliza Snell MD PCP - General Family Practice 09/09/22 documented as of this encounter
--- OUTSIDE RECORDS SUMMARY | 2025-04-05 13:03 | XMS_ITS | Clinical Summary ---
Author Organization [facility] Address [address] [place] [address] Care Team Providers Care Veneer Taping Machine Operator Name Role Phone Lidia Barajas MD Unavailable Shilpa Gandhi MD Unavailable Iron Galindo PA-C Primary Care Provide r Cresencio Ghosh MD Unavailable Cresencio Ghosh MD Unavailable Leanna Howe MA Unavailable Source Comments [facility],non-owned Affiliates and Associated Physician Practices is amultiple site organization consisting of ambulatory clinics and hospital sitesin [place], [place], [place] and [place]. This disclosure is being madepursuant to the Care Everywhere program and may not contain all information available regarding this patient. Last updated 18.[facility] Allergies Active Allergy Reactions Criticality Noted Date [...] (spasms) 90 tablet 2 3 Active Nystop 919994 UNIT/GM powder Apply to affected area 2 [...] Encounters Date Type Department Care Team Description 04/04/2025 Patient Outreach [facility] - Care Coordination [address] [place] [address] Leanna Howe, NIKKI Outreach Preventive Care 03/23/2025 Telephone [facility] - Pulmonology [address] [place] [address] Cresencio Ghosh MD Appointment from Last 3 Months Immunizations Immunization Administration Dates Next Due FLU VACCINE TRI IIV3 SPLIT I M (FLUVIRIN) 04/07/2014 INFLUENZA VACCINE 05/15/2022,05/06/2018,04/30/20 17 INFLUENZA VACCINE, QUADR. (F LUZONE; FLULAVAL; FLUARIX; AFLURIA QUADRIVALENT; 6MO+), 0.5 ML (IIV4) 07/01/2021,03/22/2020,03/26/2019,2017 INFLUENZA VACCINE, TRIV. (FL UZONE; FLULAVAL; FLUARIX; AFLURIA TRIVALENT; 6MO+), 0.5 ML (IIV3) 04/28/2017,08/23/2016 PNEUMOCOCCAL PPV VACCINE 09/05/2020 Family History Medical History Relation Name Comments [...] care, and heating? Not very hard 04/02/2023 [facility] - Occupational Stress [...] slept in a longterm (including now)? No 04/02/2023 Comments No Sex and Gender Information Value Date Recorded Sex Assigned at Not on file Legal Sex Female 6:02 AM STUNNER ANIMAL Gender Identity Not on file Sexual Orientation Not on file Occupation Industry Job Start Date Job End Date Disabled Not on file Not on file Not on file Last Filed Vital Signs Vital Sign Reading Time Taken Comments Blood Pressure 157/91 05/07/2023 9:23 AM STUNNER ANIMAL Pulse 86 05/07/2023 9:23 AM STUNNER ANIMAL Temperature 36.3 C (97.3 F) 05/07/2023 9:23 AM STUNNER ANIMAL Respiratory Rate 18 04/02/2023 3:00 PM CDT Oxygen Saturation 95% 05/07/2023 9:23 AM STUNNER ANIMAL Inhaled Oxygen Concentration 97% 02/21/2021 1 0:15 [...] of 3 - 19+ 3-dose series) 1985 ZOSTER VACCINE (1 of 2) 2016 MAMMOGRAM 09/19/2019 09/18/2017 PNEUMOCOCCAL VACCINE 50+ (2 of 2 - PCV) 09/05/2021 09/05/2020 DEPRESSION SCREENING 06/30/2024 MEDICARE AWV CALENDAR YEAR 2024 02/25/2020, 09/10/2017 COLON MONITORING 11/28/2024 11/29/2019, 06/2019, 08/03/2019, Additional history exists Colorectal Cancer Screening 11/28/2024 COVID-19 VACCINE ( season) 2025 07/01/2021, 12/13/2020, 11/20/2020 INFLUENZA VACCINE (#1) 2025 4, 05/15/2022, 07/01/2021, Additional history exists SCREENING FOR DIABETES 04/02/2026 [...] < 140/90 Blood Pressure 157/91(2022 9:23 AM STUNNER ANIMAL) No Sierra Steiner Yearly PCP visit Lifestyle No White, Ava A Have labs drawn Lifestyle No White, Ava A Take recommended medication(s) Lifestyle No White, Ava A Use safety retraint in car Lifestyle No White, Ava A Complete Health Maintenance Screenings Lifestyle No White, Ava A Medical Devices Implanted Type Area Expert Medical Writer Device Identifier Shelf Expiration Date Model / Serial / Lot Nevro Neurostimulator Senza [id number] (Implanted 2016) Floseal Hemostatic Matrix Implanted:Qty: 1 on 04/02/2019 by Maicol Mcneil DO at [facility] N/A: Spine [employer] 08/10/2020 [id number] / / [id number] Graft Tissue Drgn + Bvn Clgn Mtrx 1x1in Implanted:Qty: 1 on 04/02/2019 by Maicol Mcneil DO at [facility] N/A: Spine [employer] 04/29/2021 [id number] / / [id number] Seal Tisseel Prima 1 Prefil Frz 4ml - [id number] Implanted:Qty: 1 on 04/02/2019 by Maicol Mcneil DO at [facility] N/A: Spine [employer] 08/27/2020 [id number] / [id number] / [id number] Impl Inj 1ml Coaptite Syr Bulk Agnt Implanted:Qty: 2 on 04/11/2020 by Dave Aparicio MD at [facility] N/A: Bladder [employer] 10/25/2022 [id number] / / [id number] Impl Inj 1ml Coaptite Syr Bulk Agnt Implanted:Qty: 2 on 02/05/2022 by Dave Aparicio MD at [facility] Bladder [employer] 10/16/2024 [id number] / / [id number] Stent Uret 7fr 80cm Str Cls Tip Llok Implanted:Qty: 1 on 09/03/2022 by Nel Cerna DO at [facility] Ureter [employer] 12/23/2025 [id number] / / [id number] Description:bilateral ureter s Procedures Procedure Name Priority [...] 7 - 26 mg/dL 04/02/2023 3:07 AM CDT [facility] Creatinine 0.69 0.56 - 0.96 mg/dL 04/02/2023 3:07 AM CDT [facility] Sodium 133(L) 136 - 145 mmol/L 04/02/2023 3:07 AM CDT [facility] Potassium 3.9 3.5 - 4.5 mmol/L 04/02/2023 3:07 AM [facility] Chloride 102 98 - 107 mmol/L 04/02/2023 3:07 AM [facility] CO2 26 22 - 29 mmol/L 04/02/2023 3:07 AM [facility] Glucose 122(H) 70 - 115 mg/dL 04/02/2023 3:07 AM [facility] Calcium 8.3(L) 8.4 - 10.2 mg/dL 04/02/2023 3:07 AM [facility] Anion Gap 5(L) 6 - 16 04/02/2023 3:07 AM [facility] BUN/Creatinine Ratio 23 7 - 23 04/02/2023 3:07 AM [facility] Osmolality Calculated 278 275 - 295 mOsm/kg 04/02/2023 3:07 AM [facility] eGFR by CKD-EPI >90 >=90 mL/min/1.7 3 m2 04/02/2023 3:07 AM [facility] Blood BLOOD SPECIMEN / Unknown Lab Venipuncture / Unknown 04/02/2023 2:31 AM CDT 04/02/2023 2:39 AM CDT Missy Sutherland MD LAB - CHEMISTRY ORDERABLES Final Result [facility] [address] [place] [address], [facility] [phone] * ENDOSCOPY, COLON, SCREENING (11/29/2019) us Provider [...] participate in the care of your patient. [facility] utilizes [employer] as a reminder system to notify patients of their next recommended mammogram. Narrative 09/23/2017 9:22 AM CDT EXAMINATION: Digital screening mammogram on 09/18/2017. Low-dose full-field digital breast tomosynthesis examination was performed with synthetic 2D images and 3D acquisitions. Computer assisted detection was utilized. PRIOR: Mammogram from [facility] on 11/13/2004. BREAST PARENCHYMAL DENSITY: The breasts are almost entirely fatty. RISK ASSESSMENT CALCULATION: Based on the information provided by your patient, her lifetime risk of breast cancer is average (<15%). Additional quantitative risk model data and patient history details have been scanned as a document/letter in [facility] electronic medical record (media tab). Please note [...] 04/01/2023 04/01/2023 MDRO 05/08/2023 05/08/2023 Insurance [employer] MANAGED MEDICARE ADV [facility] MANAGED MEDICARE ADV Advance Directives Documents on File Type Date Recorded Patient Disk Sander Expl anation Adv Directive/Living Will/POA 09/16/2022 3:23 [...] 4:01 AM 05/11/2020 8:00 PM Care Teams Veneer Taping Machine Operator Relationship Specialty Start Date End Date Iron Galindo PA-C [address] [facility] [address] [address] PCP - General Physician Crane Rigger 02/12/23 Cresencio Ghosh MD [address] [place] [phone] PCP - [facility] [place] STL P4P 10/28/24 Lidia Barajas MD [address] [place], [address] Anesthesiology-Pain Management 06/03/19 Shilpa Gandhi MD [address] [place] [id number] Oncology 06/03/19 Cresencio Ghosh MD [address] [place] [phone] Internal Medicine Sleep Medicine 09/29/24 Leanna Howe MA Care Coordination Specialist Care Management 04/04/25
--- OUTSIDE RECORDS SUMMARY | 2025-04-05 13:03 | XMS_ITS | Clinical Summary ---
Author Organization [facility] Address [address] [place] [address] Phone Care Team Providers Care Press Machine Operator Name Role Phone Unavailable Primary Care Provider Unavailabl e Social History Tobacco Use Types Packs/Day Years Used Date Smoking Tobacco: Never Assessed Comments Unknown Sex and Gender Information Value Date Recorded Sex Assigned at Not on file Legal Sex Female 3:52 AM SONOGRAM TECHNICIAN Gender Identity Not on file Sexual [...]
--- OUTSIDE RECORDS SUMMARY | 2025-04-05 13:03 | XMS_ITS | Encounter Summary ---
Author Organization [facility] Address [address] [facility] [place] [address] Care Team Providers Care Roving Weight Gauger Name Role Phone Shilpa Frazier DO Primary Care Provider [phone] Lidia Barajas MD Unavailable Shilpa Gandhi MD Unavailable Massiel Melara MD Primary Care Provider [phone] Shilpa Frazier DO Primary Care Provider [phone] Iron Galindo PANikiC Primary Care Provide r Cresencio Ghosh MD Unavailable Cresencio Ghosh MD Unavailable Cresencio Ghosh MD Unavailable [phone] Leanna Howe MA Unavailable [phone] Encounter Details Date Type Department Care Team (Late st Contact Info) Description 01/23/2015 Therapy Visit EXTERNAL NON-[facility] Sunny Reynoso MD [address] [facility] [address] [place] [address] Social History Tobacco Use Types Packs/Day Years Used Date Smoking Tobacco: Never Alcohol Use Standard Drinks/Week Comments Yes 0 (1 standard drink = 0.6 oz pur e alcohol) 1-2 year Comments Unknown Sex and Gender Information Value Date Recorded Sex Assigned at Not on file Legal Sex Female 6:02 AM TUBE DRAW HELPER Gender Identity Not on file Sexual [...] NO NEED FOR ISOLATION AT THIS TIME; [employer] MACHINE TENDER INF PREV [id number] 10/07/2019 10/07/2019 09/05/19 8:37 AM TUBE DRAW HELPER MRSA 10/07/2019 10/07/2019 01/29/2020 8:33 AM CDT MRSA 01/28/2020 01/28/2020 03/20/2020 7:45 AM CDT COVID-19 Under Investigation 04/06/2020 04/08/2020 04/09/2020 5:20 AM CDT MRSA 04/11/2020 04/11/2020 12/25/2020 9:00 AM CDT COVID-19 Under Investigation 08/07/2020 08/07/2020 08/08/2020 3:45 PM TUBE DRAW HELPER COVID-19 Under Investigation 08/11/2020 08/11/2020 08/12/2020 4:08 AM TUBE DRAW HELPER MRSA 05/13/2021 02/05/2022 09/04/2022 8:37 AM TUBE DRAW HELPER MRSA Hx 09/04/2022 09/04/2022 MDRO Comment:04/01/23 MDRO resolved, ES 02/23/2023 02/23/20232022 7:16 AM CDT MDRO Hx 04/01/2023 04/01/2023 MDRO 05/08/2023 05/08/2023 documented as of this encounter Care Teams Roving Weight Gauger Relationship Specialty Start Date End Date Shilpa Frazier DO [address] [facility] [address] [place] [address] PCP - General Family Medicine 08/06/17 07/31/20 Massiel Melara MD [address] [place], [place] [id number] PCP - General Family Medicine 08/01/20 10/01/20 Shilpa Frazier DO [address] [facility] [address] [place] [address] PCP - General Family Medicine 10/02/20 10/03/20 Iron Galindo PA-C [address] [address] [address] [place] [address] PCP - General Physician Breaker Hand 02/12/23 Cresencio Ghosh MD [address] [place] [id number] PCP - Attributed-[facility] P4 12/29/23 09/14/24 Cresencio Ghosh MD [address] [place] [phone] PCP - Attributed-[facility] P4P 10/28/24 Lidia Barajas MD [address] [facility], [address] Anesthesiology-Pain Management 06/03/19 Shilpa Gandhi MD [address] [place] [address] Oncology 06/03/19 Cresencio Ghosh MD [address] [place] [address] Internal Medicine Sleep Medicine 09/29/24 Leanna Howe MA Care Coordination Specialist Care Management 04/04/25 documented as of this encounter
--- OUTSIDE RECORDS SUMMARY | 2025-04-05 13:03 | XMS_ITS | Encounter Summary ---
Author Organization [facility] Address [address] [facility] [place] [address] Care Team Providers Care Pattern Cutter Name Role Phone Lidia Barajas MD Unavailable Shilpa Gandhi MD Unavailable Iron Galindo PA-C Primary Care Provide r Cresencio Ghosh MD Unavailable [phone] Cresencio Ghosh MD Unavailable [phone] Leanna Howe MA Unavailable [phone] Reason for Visit * Reason Onset Date Comments Outreach Preventive Care 04/04/2025 Encounter Details Date Type Department Care Team (Late st Contact Info) Description 04/04/2025 Patient Outreach [facility] - Care Coordination [address] [place] [phone] Leanna Howe MA Outreach Preventive Care Social History Tobacco Use Types Packs/Day Years [...] you are drinking? Patient does not drink 3 Q3: How often do you have si x or more drinks on one occasion? Never 03/30/2023 Overall Financial Resource Strain (CARDIA) Answe r Date Recorded How hard is it for you to pa y for the very basics like food, housing, medical care, and heating? 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 Answer Date of Assessment Author No 04/02/2023 11:49 AM Krista Blank RN * Is person blind or have serious difficulty seeing? Answer Date of Assessment Author No 04/02/2023 11:49 AM Krista Blank RN * Does person have serious difficulty walking/climbing stairs? Answer Date of Assessment Author Yes 04/02/2023 11:49 AM Krista Blank RN * Does person have difficulty dressing/bathing? Answer Date of Assessment Author Yes 04/02/2023 11:49 AM Krista Blank RN * Does person have difficulty doing errands alone? Answer Date of Assessment Author Yes 04/02/2023 11:49 AM Krista Blank RN documented as of this encounter Mental Status * Does person have difficulty concentrating/remembering/making decisions? Answer Entry Date Author No 04/02/2023 11:49 AM Krista Blank RN documented in this encounter Miscellaneous Notes * Telephone Encounter - Leanna Howe MA - 04/04/2025 11:10 AM CDT HEALTH MAINTENANCE Health Maintenance items reviewed. Patient has Health Maintenance items that are overdue or due soon. Patient outreach is indicated. Health Maintenance Due Topic Date Due HIV SCREENING Never done DTAP/TDAP/TD VACCINES (1 - Tdap) Never done HEPATITIS B VACCINE (1 of 3 - 19+ 3-dose series) Never done ZOSTER VACCINE (1 of 2) Never done MAMMOGRAM 09/19/2019 PNEUMOCOCCAL VACCINE 50+ (2 of 2 - PCV) 09/05/2021 MEDICARE AWV - CALENDAR YEAR 2024 DEPRESSION SCREENING Never done Colorectal Cancer Screening 11/28/2024 INFLUENZA VACCINE (1) 02/28/2025 COVID-19 VACCINE (2024- season) 2025 items to be addressed: AWV (Medicare/Medicare Advantage), Colon Screening, Mammogram, and Flu Vaccine PATIENT OUTREACH I called and left voicemail for patient to call back. I sent a netTALKt message to the patient. PCP Confirmation: Records indicate pt is not actively engaged with [facility] PCP. MyChart Enrollment: Already active. Patient engagement and response(s) for due / overdue Health Maintenance items: No contact with pt during this outreach Leanna Howe MA 04/04/2025 11:10 AM documented in this encounter Plan of Treatment Not on file documented as of this encounter Goals Goal Patient Goal Type Associated Problems Recent Progress Patient-Stated? Author Blood Pressure < 140/90 Blood Pressure 157/91(2022 9:23 AM METER MECHANIC) No Sierra Steiner Yearly PCP visit Lifestyle No White, Ava A Have labs drawn Lifestyle No White, Ava A Take recommended medication(s) Lifestyle No White, Ava A Use safety retraint in car Lifestyle No White, Ava A Complete Health Maintenance Screenings Lifestyle No White, Ava A documented as of this encounter Visit Diagnoses Not on filedocumented in this encounter Additional Health Concerns Infection Onset Date Last Indicated Resolved Time MRSA Hx 09/04/2022 09/04/2022 MDRO Hx 04/01/2023 04/01/2023 MDRO 05/08/2023 05/08/2023 documented as of this encounter Care Teams Pattern Cutter Relationship Specialty Start Date End Date Iron Galindo PA-C [address] [facility] [address] [place] [address] PCP - General Physician Communications Writer 02/12/23 Cresencio Ghosh MD [address] [facility] [address] [place] [phone] PCP - [facility] P4P 10/28/24 Lidia Barajas MD [address] [facility] [address] Anesthesiology-Pain Management 06/03/19 Shilpa Gandhi MD [address] [facility] [address] [place] [id number] Oncology 06/03/19 Cresencio Ghosh MD [address] [facility] [address] [place] [phone] Internal Medicine Sleep Medicine 09/29/24 Leanna Howe MA Care Coordination Specialist Care Management 04/04/25 documented as of this encounter
--- OUTSIDE RECORDS SUMMARY | 2025-04-05 13:03 | XMS_ITS | Encounter Summary ---
Author Organization [facility] Address [address] [place] [address] Care Team Providers Care Cook Pressure Name Role Phone Fiordaliza Snell MD Primary [...] file Legal Sex Female 2:43 AM BUS OR TRUCK GARAGE MECHANIC Gender Identity Not on file Sexual [...] fL INTERFACE SYSTEM 10/14/2004 6:07 AM CDT [employer] HEMATOLOGY ORDERABLES Final Resu lt Performing Organization Address [facility] Phone Number INTERFACE SYSTEM Refer to clinic/hospital department * (ABNORMAL) BASIC METABOLIC PANEL (10/14/2004 6:07 AM CDT) Pathologist [facility] GLUCOSE 90 65 - 109 mg/dL INTERFACE [...] mmol/L INTERFACE SYSTEM 10/14/2004 6:07 AM CDT [employer] CHEMISTRY ORDERABLES Final Resul t Performing Organization Address [facility] Phone Number INTERFACE SYSTEM Refer to clinic/hospital department * (ABNORMAL) AMYLASE (10/13/2004 9:56 AM CDT) AMYLASE 24(L) 28 - 100 U/L INTERFACE SYSTEM 10/13/2004 9:56 AM CDT Russell Marie CHEMISTRY ORDERABLES Final Resul t Performing Organization Address [facility] Phone Number INTERFACE SYSTEM Refer to clinic/hospital department * LIPASE (10/13/2004 9:56 AM CDT) LIPASE 20 13 - 60 U/L INTERFAC E SYSTEM 10/13/2004 9:56 AM CDT Russell Marie CHEMISTRY ORDERABLES Final Resul t Performing Organization Address [facility] Phone Number INTERFACE SYSTEM Refer to clinic/hospital [...] Final Resu lt Performing Organization Address [facility] de Phone Number INTERFACE SYSTEM [...] ORDERABLES Final Resu lt Performing Organization Address [facility] Phone Number INTERFACE SYSTEM Refer to clinic/hospital department * (ABNORMAL) C-REACTIVE PROTEIN (10/13/2004 5:00 AM CDT) CRP 1.3(H) 0.0 - 0.8 mg/dL INTERFACE SYSTEM 10/13/2004 5:00 AM CDT Russell Marie CHEMISTRY ORDERABLES Final Resul t Performing Organization Address [facility] Phone Number INTERFACE SYSTEM Refer to clinic/hospital [...] URINE ORDERABLES Final Result Performing Organization Address [facility] [place] Phone Number INTERFACE SYSTEM Refer to clinic/hospital [...] Final Resu lt Performing Organization Address [facility] [place] Phone Number INTERFACE SYSTEM Refer [...] Final Resul t Performing Organization Address [facility] [place] Phone Number INTERFACE SYSTEM Refer [...] Final Resu lt Performing Organization Address [facility] [place] Phone Number INTERFACE SYSTEM Refer [...] Final Resul t Performing Organization Address [facility] [place] Phone Number INTERFACE SYSTEM Refer to clinic/hospital department documented in this encounter Visit Diagnoses Diagnosis Abdominal pain, right lower quadrant- Primary documented in this encounter Additional Health Concerns Infection Onset Date Last Indicated Resolved Time R/O COVID-19 07/02/2020 07/02/2020 07/02/2020 8:53 PM BUS OR TRUCK GARAGE MECHANIC MRSA Comment:Resolved per Type and Duration of Precautions Recommended for Selected Infections and Conditions document 2023 update 07/02/2020 07/02/2020 03/16/20 10:58 AM CDT R/O COVID-19 07/10/2020 07/10/2020 07/10/2020 5:01 PM BUS OR TRUCK GARAGE MECHANIC documented as of this encounter Care Teams Cook Pressure Relationship Specialty Start Date End Date Fiordaliza Snell MD PCP - General Family Practice 09/09/22 documented as of this encounter
--- OUTSIDE RECORDS SUMMARY | 2025-04-05 13:03 | XMS_ITS | Encounter Summary ---
Author Organization [facility] Address [address] [place] [address] Care Team Providers Care Senior Instructional Designer Name Role Phone Fiordaliza Snell MD [...] on file Legal Sex Female 2:43 AM DOCUMENTATION ANALYST Gender Identity Not on file Sexual Orientation Not on file documented as of this encounter Plan of Treatment Not on file documented as of this encounter Visit Diagnoses Diagnosis Abdominal pain, unspecified site- Primary documented in this encounter Additional Health Concerns Infection Onset Date Last Indicated Resolved Time R/O COVID-19 07/02/2020 07/02/2020 07/02/2020 8:53 PM DOCUMENTATION ANALYST MRSA Comment:Resolved per Type and Duration of Precautions Recommended for Selected Infections and Conditions document 2023 update 07/02/2020 07/02/2020 03/16/20 24 10:58 AM CDT R/O COVID-19 07/10/2020 07/10/2020 07/10/2020 5:01 PM DOCUMENTATION ANALYST documented as of this encounter Care Teams Senior Instructional Designer Relationship Specialty Start Date End Date Fiordaliza Snell MD PCP - General Family Practice 09/09/22 documented as of this encounter
--- OUTSIDE RECORDS SUMMARY | 2025-04-05 13:03 | XMS_ITS | Encounter Summary ---
Author Organization [facility] Address [address] [place] [address] Care Team Providers Care Oil Dipper Name Role Phone Fiordaliza Snell MD Primary [...] on file Legal Sex Female 2:43 AM BARREL LAPPER Gender Identity Not on file Sexual Orientation Not on file documented as of this encounter Plan of Treatment Not on file documented as of this encounter Visit Diagnoses Diagnosis Other and unspecified ovarian cyst- Primary documented in this encounter Additional Health Concerns Infection Onset Date Last Indicated Resolved Time R/O COVID-19 07/02/2020 07/02/2020 07/02/2020 8:53 PM BARREL LAPPER MRSA Comment:Resolved per Type and Duration of Precautions Recommended for Selected Infections and Conditions document 2023 update 07/02/2020 07/02/2020 03/16/20 24 10:58 AM CDT R/O COVID-19 07/10/2020 07/10/2020 07/10/2020 5:01 PM BARREL LAPPER documented as of this encounter Care Teams Oil Dipper Relationship Specialty Start Date End Date Fiordaliza Snell MD PCP - General Family Practice 09/09/22 documented as of this encounter
--- OUTSIDE RECORDS SUMMARY | 2025-04-05 13:03 | XMS_ITS | Encounter Summary ---
Author Organization [facility] Address [address] [place] [address] Care Team Providers Care Showroom Manager Name Role Phone Fiordaliza Snell MD [...] on file Legal Sex Female 2:43 AM ELEVATED WORK PLATFORM OPERATOR Gender Identity Not on file Sexual Orientation Not on file documented as of this encounter Plan of Treatment Not on file documented as of this encounter Visit Diagnoses Diagnosis Surgical or other procedure not carried out because of patient's decision- Primary documented in this encounter Additional Health Concerns Infection Onset Date Last Indicated Resolved Time R/O COVID-19 07/02/2020 07/02/2020 07/02/2020 8:53 PM ELEVATED WORK PLATFORM OPERATOR MRSA Comment:Resolved per Type and Duration of Precautions Recommended for Selected Infections and Conditions document 2023 update 07/02/2020 07/02/2020 03/16/20 24 10:58 AM CDT R/O COVID-19 07/10/2020 07/10/2020 07/10/2020 5:01 PM ELEVATED WORK PLATFORM OPERATOR documented as of this encounter Care Teams Showroom Manager Relationship Specialty Start Date End Date Fiordaliza Snell MD PCP - General Family Practice 09/09/22 documented as of this encounter
--- OUTSIDE RECORDS SUMMARY | 2025-04-05 13:03 | XMS_ITS | Encounter Summary ---
Author Organization [facility] Address [address] [place] [address] Care Team Providers Care Literacy Tutor Name Role Phone Shilpa Frazier DO Primary Care Provider Lidia Barajas MD Unavailable Ab Melara MD Primary Care Provid er Encounter Details Date Type Department Care Team (Late st Contact Info) Description 04/24/2020 Telephone [facility] [address] [facility] [address] [place] [address] Tori Arias RN Social History [...] on file Legal Sex Female 11:49 PM SUSPENDER MAKER Gender Identity Not on file Sexual [...] DT MRSA 12/27/2021 03/06/2022 09/02/2022 3:05 AM SUSPENDER MAKER documented as of this encounter Care Teams Literacy Tutor Relationship Specialty Start Date End Date Shilpa Frazier DO PCP - General 06/12/18 07/15/21 Ab Melara MD [address] [address] PCP - General Family Medicine 07/16/21 Lidia Barajas MD Anesthesiologist Anesthesiology 01/13/20 documented as of this encounter
--- OUTSIDE RECORDS SUMMARY | 2025-04-05 13:03 | XMS_ITS | Encounter Summary ---
Author Organization [facility] Address [address] [place] [address] Care Team Providers Care Retail Greeter Name Role Phone Unknown, Notinfile Primary Care Provider Unavail able Shilpa Frazier DO Primary Care Provider Lidia Barajas MD Unavailable Ab Melara MD Primary Care Provid er Encounter Details Date Type Department Care Team (Late st Contact Info) Description 04/07/2018 Telephone [facility] [address] [facility] [address] [place] [address] Kate Johnson, RT Social History Tobacco Use Types Packs/Day Years Used Date Smoking Tobacco: Never Smokeless Tobacco: Never Alcohol Use Standard Drinks/Week Comments No 0 (1 standard drink = 0.6 oz pur e alcohol) Comments No Sex and Gender Information Value Date Recorded Sex Assigned at Not on file Legal Sex Female 11:49 PM YARD JACKER Gender Identity Not on file Sexual Orientation [...] DT MRSA 12/27/2021 03/06/2022 09/02/2022 3:05 AM YARD JACKER documented as of this encounter Care Teams Retail Greeter Relationship Specialty Start Date End Date Unknown, Notinfile PCP - General 08/28/17 06/11/18 Shilpa Frazier DO PCP - General 06/12/18 07/15/21 Ab Melara MD [address] [address] PCP - General Family Medicine 07/16/21 Lidia Barajas MD Anesthesiologist Anesthesiology 01/13/20 documented as of this encounter
--- OUTSIDE RECORDS SUMMARY | 2025-04-05 13:03 | XMS_ITS | Encounter Summary ---
Author Organization [facility] Address [address] [place] [address] Care Team Providers Care Supplier Quality Manager Name Role Phone Fiordaliza Snell MD Primary Care Provider Encounter Details Date Type Department Care Team (Late st Contact Info) Description 05/06/2001 Emergency [facility] Pratik Fisher MD [address] [place] [id number] [place], Authorized P NO ADDRESS ON FILE ABDOMINAL PAIN OTHER SPEC SITE (Primary Dx) Social History Tobacco Use Types Packs/Day Years Used Date Smoking Tobacco: Never Assessed Comments Unknown Sex and Gender Information Value Date Recorded Sex Assigned at Not on file Legal Sex Female 2:43 AM ACCOUNTING SYSTEMS MANAGER Gender Identity Not on file Sexual Orientation Not on file documented as of this encounter Plan of Treatment Not on file documented as of this encounter Visit Diagnoses Diagnosis Abdominal pain, other specified site- Primary documented in this encounter Additional Health Concerns Infection Onset Date Last Indicated Resolved Time R/O COVID-19 07/02/2020 07/02/2020 07/02/2020 8:53 PM ACCOUNTING SYSTEMS MANAGER MRSA Comment:Resolved per Type and Duration of Precautions Recommended for Selected Infections and Conditions document 2023 update 07/02/2020 07/02/2020 03/16/20 10:58 AM CDT R/O COVID-19 07/10/2020 07/10/2020 07/10/2020 5:01 PM ACCOUNTING SYSTEMS MANAGER documented as of this encounter Care Teams Supplier Quality Manager Relationship Specialty Start Date End Date Fiordaliza Snell MD PCP - General Family Practice 09/09/22 documented as of this encounter
--- OUTSIDE RECORDS SUMMARY | 2025-04-05 13:03 | XMS_ITS | Clinical Summary ---
Author Organization [facility] al Address [address] [place] [address] Care Team Providers Care Horticultural Agent Name Role Phone Lidia Barajas MD Unavailable [...] for pain 42 tablet 2 Active multivit dhceeinw-zhpz-KX-c alcium (THERA-M) 9 mg iron-400 mcg tabletIndications: [...] (10/24/2021): Added automatically from request for surgery [id number] Postlaminectomy syndrome, lumbar region 10/25/19 Overview (10/24/2021): Added automatically from request for surgery [id number] Assessment & Plan (07/03/2022 3:48 PM DENTAL TECHNOLOGIST): Ms. Mcnulty is doing well following lumbar [...] (10/24/2021): Added automatically from request for surgery [id number] Other chest pain 01/19/2020 Assessment & Plan [...] need for exchange this admission Suprapubic catheter ([facility]) 11/16/2019 Essential hypertension 11/16/2019 [...] (11/25/2019): Added automatically from request for surgery [id number] Chronic lumbar radiculopathy 01/21/2019 Chronic back pain 01/21/2019 Spinal stenosis of lumbar region with radiculopa thy 12/04/2018 Assessment & Plan (07/18/2021 10:23 AM DENTAL TECHNOLOGIST): Assessment Healed fusion L2-5 severe retrolisthesis with [...] (06/18/2018): Added automatically from request for surgery [id number] Assessment & Plan (12/04/2018 3:42 PM CDT): Healing fusion C6-7 Continued observation. Assessment & Plan (08/12/2018 10:35 AM DENTAL TECHNOLOGIST): Assessment Healing fusion C6-7 Plan Talked about do's and don'ts she is still to maintain her initial restrictions and return in 6 weeks for an x-ray Assessment & Plan (06/25/2018 2:43 PM DENTAL TECHNOLOGIST): Angelina was recently hospitalized at [facility] and diagnosed with a disc osteophyte complex [...] (06/18/2018): Added automatically from request for surgery [id number] Cervical pain (neck) 06/13/2018 Asthma 11/13/2013 Overview [...] often do you attend chur ch or judaism services? More than 4 times per year 03/07/2022 Do you belong to any clubs o r organizations such as mu-ism groups, unions, fraternal or athletic groups, or [...] on file Legal Sex Female 11:49 PM DENTAL TECHNOLOGIST Gender Identity Not on file Sexual Orientation [...] Plan Chronic Care Management Worsening( 10:12 AM DENTAL TECHNOLOGIST) Milvia Mireles RN Note: Problem: Chronic Pain Goals: 1. Minimize further functional decline 2. Maximize quality of life 3. Control pain Strategies: - Activity/exercise program recommendation - Conservative stepwise pain medicine strategy with multi-disciplinary approach - Recommend healthy lifestyle strategies and compensatory methods as needed Medical Devices Implanted Type Area Equine Dentist Device Identifier Shelf Expiration Date Model / Serial / Lot Spinal Cord Stimulator-2016 Implanted:01/28 (Quantity not on file) Spinal Cord Stimulator Left: Hip Nevro Spinal Cord Stimulation System [id number] / / Description:Closed Bore only 1.5T or [...] ensure it has returned to pre-MRI settings. [employer] 700-025 I Factor Allograft Putty Syringe Graft 2.5cc Bone - [id number] Implanted:Qty: 1 on 07/03/2018 by Zachary Rothman MD at [facility] N/A: Spine Cervical [employer] Inc 03/29/2021 700-025 / / [id number] Plate 1-Level 14 Mm Cervical - [id number] Implanted:Qty: 1 on 07/03/2018 by Zachary Rothman MD at [facility] N/A: Spine Cervical [employer] 30-0114 / / Screw 4.0x14mm Self Drilling Variable - [id number] Implanted:Qty: 4 on 07/03/2018 by Zachary Rothman MD at [facility] N/A: Spine Cervical [employer] 31-4334 / / Cage Spinal [id number] 7 Degree Porous Coated Latex Free - [id number] Implanted:Qty: 1 on 07/03/2018 by Zachary Rothman MD at [facility] N/A: Spine Cervical Spinal Elements [id number] / / Depuy Synthes Spine [id number] Substitute Bone Graft Fibergraft Gps Medium Putty 6cc - [id number] Implanted:Qty: 1 on 11/29/2021 by Dave Louis MD at [facility] N/A: Lumbar-Sa cral Spine Depuy Synthes Spine [id number] 10/18/2023 [id number] / / [id number] [employer] Osteosponge Allograft Chips Radiolucent Thk4-10mm Graft 30cc Bone [id number] - [id number] - [id number] Implanted:Qty: 1 on 11/29/2021 by Dave Louis MD at [facility] N/A: Lumbar-Sa cral Spine [employer] 10/14/2024 [id number] / [id number] / Depuy Synthes Spine Cage Post Spinal 4d Plif Ti [id number] - [id number] Implanted:Qty: 1 on 11/29/2021 by Dave Louis MD at [facility] N/A: Lumbar-Sa cral Spine Depuy Synthes Spine [id number] 07/30/2024 [id number] / / [id number] Depuy Synthes Spine Expedium 5.5mm 80mm Line Prebent Rodney Spinal Titanium Nonsterile [id number] - [id number] Implanted:Qty: 1 on 11/29/2021 by Dave Louis MD at [facility] N/A: Lumbar-Sa cral Spine Depuy Synthes Spine [id number] / / Depuy Synthes Spine Expedium 5.5mm 85mm Line Prebent Rodney Spinal Titanium Nonsterile [id number] - [id number] Implanted:Qty: 1 on 11/29/2021 by Dave Louis MD at [facility] N/A: Lumbar-Sa cral Spine Depuy Synthes Spine [id number] / / Depuy Synthes Spine Expedium 5.5mm 45mm Polyaxial Spine Screw Bone Titanium 5.5mm Rodney [id number] - [id number] Implanted:Qty: 2 on 11/29/2021 by Dave Louis MD at [facility] N/A: Lumbar-Sa cral Spine Depuy Synthes Spine [id number] / / Depuy Synthes Spine Expedium 6.5mm 45mm Polyaxial Spine Screw Bone Titanium 5.5mm Rodney [id number] - [id number] Implanted:Qty: 3 on 11/29/2021 by Dave Louis MD at [facility] N/A: Lumbar-Sa cral Spine Depuy Synthes Spine [id number] / / Depuy Synthes Spine Expedium 1 Inner Monoaxial Spine Screw Set Titanium [id number] - [id number] Implanted:Qty: 6 on 11/29/2021 by Dave Louis MD at [facility] N/A: Lumbar-Sa cral Spine Depuy Synthes Spine [id number] / / Depuy Synthes Spine Expedium 7mm 45mm 1 Innie Polyaxial Spine Screw Bone Titanium [id number] - [id number] Implanted:Qty: 1 on 11/29/2021 by Dave Louis MD at [facility] N/A: Lumbar-Sa cral Spine Depuy Synthes Spine [id number] / / Procedures Procedure Name Priority Date/Time [...] 11/29/2019 8:04 AM Admit Type: Inpatient Room: [facility] 4 Date of : 1965 Instrument [...] the bowel preparation was evaluated usingthe BBPS ([place] Bowel Preparation Scale) with scores of: Right [...] AM CDT) Hep A IgM Nonreactive Nonreactive [facility] Comment: Interpretive Data: If Hep A IgM Ab is reported as Equivocal, a new sample should be drawn in two weeks for testing. Current interpretive data was last revised on 19. Hep B core IgM Nonreactive Nonreactive [facility] Comment: Interpretive Data If HepB Core IgM Ab is reported as Equivocal, a new sample should be drawn in two weeks for testing. Current interpretive data was last revised on 19. Hep C Ab Nonreactive Nonreactive [facility] Comment: Interpretive Data Nonreactive: Antibodies to HCV [...] revised on 2019. HepBsAg Nonreactive Nonreactive [facility] Blood specimen (specimen) 11/17/2019 4:13 AM CDT 11/17/2019 4:31 AM CDT [facility] MICROBIOLOGY - GENERAL ORDERABLES Final Result [facility] [address] Department [place] [address] from Last 3 Months or Most Recently Relevant to Health Maintenance Insurance UHC MEDICARE ADVANTAGE [facility] MEDIC[facility] Address: [address] [address] [place] [address] [facility] [place] [address] [facility] MEDICARE UHC MEDICARE ADVANTAGE [facility] Address: [address] [address] [place] [address] Advance Directives For more information, please contact: [phone] Documents on File Type Date Recorded Patient Chiller Operator Expl anation Power of Durability Engineer 11/29/2021 11:46 AM * Full Code (Latest [...] First Alternate Health Care Agent Care Teams Horticultural Agent Relationship Specialty Start Date End Date Ab Melara MD [address] [address] PCP - General Family Medicine 07/16/21 Lidia Barajas MD Anesthesiologist Anesthesiology 01/13/20
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
== END 2025-04-05 11:51 | disposition home or self-care (01) ==
PROVIDERS: PCP Internal Medicine; Visit Provider Internal Medicine
DX: G82.20 Paraplegia, unspecified (principal); I10 Essential (primary) hypertension; R11.0 Nausea; R42 Dizziness and giddiness
CPT/HCPCS: 36415; 80053; 85025

== ENCOUNTER 2025-04-07 14:24 | Outpatient (NON) | payer MEDICARE, SELFPAY ==
--- OUTSIDE RECORDS SUMMARY | 2025-04-07 14:28 | XMS_ITS ---
Author Organization [facility] Address [facility] [facility] [place] [address] Care Team Providers Care Beck Operator Name Role Phone Lidia Barajas MD Unavailable Shilpa Gandhi MD Unavailable [phone] Iron Galindo PA-C Primary Care Provide r Cresencio Ghosh MD Unavailable Cresencio Ghosh MD Unavailable Leanna Howe MA Unavailable QMM & AWV - Vibrance Status:Closed (Closed) Start date:04/04/2025 Enrollment reason:Identified using payor list End date:04/07/2025 Close reason:Unable to reach patient Case Team Name Relationship Phone Leanna Howe MA(Responsible Staff) Care Co ordination Specialist [phone] Continued Care and Services Coordination
--- OUTSIDE RECORDS SUMMARY | 2025-04-07 14:28 | XMS_ITS | Encounter Summary ---
Author Organization [facility] Address [address] [place] [address] Care Team Providers Care Level Vial Grinder Name Role Phone Fiordaliza Snell MD Primary Care Provider Encounter Details Date Type Department Care Team (Late st Contact Info) Description 04/18/2003 Emergency [facility] L Otilia Rose MD [address] [place] [id number] Er, Authorized P NO ADDRESS ON FILE ABDOMINAL PAIN RLQ (Primary Dx) Social History Tobacco Use Types Packs/Day Years Used Date Smoking Tobacco: Never Assessed Comments Unknown Sex and Gender Information Value Date Recorded Sex Assigned at Not on file Legal Sex Female 2:43 AM EMERGENCY DEPARTMENT Gender Identity Not on file Sexual Orientation Not on file documented as of this encounter Plan of Treatment Not on file documented as of this encounter Visit Diagnoses Diagnosis Abdominal pain, right lower quadrant- Primary documented in this encounter Additional Health Concerns Infection Onset Date Last Indicated Resolved Time R/O COVID-19 07/02/2020 07/02/2020 07/02/2020 8:53 PM EMERGENCY DEPARTMENT MRSA Comment:Resolved per Type and Duration of Precautions Recommended for Selected Infections and Conditions document 2023 update 07/02/2020 07/02/2020 03/16/20 24 10:58 AM CDT R/O COVID-19 07/10/2020 07/10/2020 07/10/2020 5:01 PM EMERGENCY DEPARTMENT documented as of this encounter Care Teams Level Vial Grinder Relationship Specialty Start Date End Date Fiordaliza Snell MD PCP - General Family Practice 09/09/22 documented as of this encounter
--- OUTSIDE RECORDS SUMMARY | 2025-04-07 14:28 | XMS_ITS | Clinical Summary ---
Author Organization [facility] Address [address] [place] [address] Care Team Providers Care International Editorial Producer Name Role Phone Unavailable Primary Care Provider [...] Comments Blood Pressure 152/77 05/21/2019 8:00 AM BAR AND FILLER ASSEMBLER Pulse 75 05/21/2019 8:00 AM BAR AND FILLER ASSEMBLER Temperature 36.3 C (97.3 F) 05/21/2019 8:00 AM BAR AND FILLER ASSEMBLER Respiratory Rate 18 05/21/2019 8:00 AM BAR AND FILLER ASSEMBLER Oxygen Saturation 98% 05/21/2019 8:00 AM BAR AND FILLER ASSEMBLER Inhaled Oxygen Concentration - - Weight 108.9 kg (240 lb 1.6 oz) 05/09/2019 6:52 AM BAR AND FILLER ASSEMBLER Height 172.7 cm (5' 8) 04/18/2019 12:2 [...]
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
--- OUTSIDE RECORDS SUMMARY | 2025-04-07 14:28 | XMS_ITS | Encounter Summary ---
Author Organization [facility] Address [address] [place] [address] Care Team Providers Care Director Of Business Systems Name Role Phone Fiordaliza Snell MD Primary [...] on file Legal Sex Female 2:43 AM CHECKER/STOCKER Gender Identity Not on file Sexual Orientation Not on file documented as of this encounter Plan of Treatment Not on file documented as of this encounter Visit Diagnoses Diagnosis Chronic salpingitis and oophoritis- Primary documented in this encounter Additional Health Concerns Infection Onset Date Last Indicated Resolved Time R/O COVID-19 07/02/2020 07/02/2020 07/02/2020 8:53 PM CHECKER/STOCKER MRSA Comment:Resolved per Type and Duration of Precautions Recommended for Selected Infections and Conditions document 2023 update 07/02/2020 07/02/2020 03/16/20 24 10:58 AM CDT R/O COVID-19 07/10/2020 07/10/2020 07/10/2020 5:01 PM CHECKER/STOCKER documented as of this encounter Care Teams Director Of Business Systems Relationship Specialty Start Date End Date Fiordaliza Snell MD PCP - General Family Practice 09/09/22 documented as of this encounter
--- OUTSIDE RECORDS SUMMARY | 2025-04-07 14:28 | XMS_ITS | Clinical Summary ---
Author Organization [facility] Address [address] [place] [address] Phone Care Team Providers Care Contract Administration Coordinator Name Role Phone Unavailable Primary Care Provider Unavailabl e Social History Tobacco Use Types Packs/Day Years Used Date Smoking Tobacco: Never Assessed Comments Unknown Sex and Gender Information Value Date Recorded Sex Assigned at Not on file Legal Sex Female 3:52 AM BOOT REPAIRER Gender Identity Not on file Sexual [...]
--- OUTSIDE RECORDS SUMMARY | 2025-04-07 14:28 | XMS_ITS | Encounter Summary ---
Author Organization [facility] Address [address] [place] [address] Care Team Providers Care Automated Weaver Name Role Phone Fiordaliza Snell MD Primary Care Provider Encounter Details Date Type Department Care Team (Late st Contact Info) Description 10/10/2003 Emergency [facility] Franki Grimes, DO [address] [place] [address] Er, Authorized P NO ADDRESS ON FILE LUMBAGO (Primary Dx) Social History Tobacco Use Types Packs/Day Years Used Date Smoking Tobacco: Never Assessed Comments Unknown Sex and Gender Information Value Date Recorded Sex Assigned at Not on file Legal Sex Female 2:43 AM DRAW HAND Gender Identity Not on file Sexual Orientation Not on file documented as of this encounter Plan of Treatment Not on file documented as of this encounter Visit Diagnoses Diagnosis Lumbago- Primary documented in this encounter Additional Health Concerns Infection Onset Date Last Indicated Resolved Time R/O COVID-19 07/02/2020 07/02/2020 07/02/2020 8:53 PM DRAW HAND MRSA Comment:Resolved per Type and Duration of Precautions Recommended for Selected Infections and Conditions document 2023 update 07/02/2020 07/02/2020 03/16/20 24 10:58 AM CDT R/O COVID-19 07/10/2020 07/10/2020 07/10/2020 5:01 PM DRAW HAND documented as of this encounter Care Teams Automated Weaver Relationship Specialty Start Date End Date Fiordaliza Snell MD PCP - General Family Practice 09/09/22 documented as of this encounter
--- OUTSIDE RECORDS SUMMARY | 2025-04-07 14:28 | XMS_ITS | Encounter Summary ---
Author Organization [facility] Address [address] [place] [address] Care Team Providers Care Classification Control Clerk Name Role Phone Fiordaliza Snell MD Primary Care Provider Encounter Details Date Type Department Care Team (Late st Contact Info) Description 05/06/2001 Emergency [facility] EM[facility] Pratik Jules MD NO ADDRESS ON FILE Er, Authorized P NO ADDRESS ON FILE ABDOMINAL PAIN OTHER SPEC SITE (Primary Dx) Social History Tobacco Use Types Packs/Day Years Used Date Smoking Tobacco: Never Assessed Comments Unknown Sex and Gender Information Value Date Recorded Sex Assigned at Not on file Legal Sex Female 2:43 AM MANAGER PAYER Gender Identity Not on file Sexual Orientation Not on file documented as of this encounter Plan of Treatment Not on file documented as of this encounter Visit Diagnoses Diagnosis Abdominal pain, other specified site- Primary documented in this encounter Additional Health Concerns Infection Onset Date Last Indicated Resolved Time R/O COVID-19 07/02/2020 07/02/2020 07/02/2020 8:53 PM MANAGER PAYER MRSA Comment:Resolved per Type and Duration of Precautions Recommended for Selected Infections and Conditions document 2023 update 07/02/2020 07/02/2020 03/16/20 24 10:58 AM CDT R/O COVID-19 07/10/2020 07/10/2020 07/10/2020 5:01 PM MANAGER PAYER documented as of this encounter Care Teams Classification Control Clerk Relationship Specialty Start Date End Date Fiordaliza Snell MD PCP - General Family Practice 09/09/22 documented as of this encounter
--- OUTSIDE RECORDS SUMMARY | 2025-04-07 14:28 | XMS_ITS | Encounter Summary ---
Author Organization [facility] Healthcare Address [address] [place] [address] Care Team Providers Care Manager Area Name Role Phone Shilpa Frazier DO Primary Care Provider Lidia Barajas MD Unavailable Ab Melara MD Primary Care Provid er Encounter Details Date Type Department Care Team (Late st Contact Info) Description 06/15/2018 Telephone [facility] at [facility] [address] [facility] 1[address] [place] [address] Emil Clarke, RT Social History Tobacco Use Types Packs/Day Years Used Date Smoking Tobacco: Never Smokeless Tobacco: Never Alcohol Use Standard Drinks/Week Comments No 0 (1 standard drink = 0.6 oz pur e alcohol) Comments No Sex and Gender Information Value Date Recorded Sex Assigned at Not on file Legal Sex Female 11:49 PM PASTE THINNER Gender Identity Not on file Sexual Orientation [...] DT MRSA 12/27/2021 03/06/2022 09/02/2022 3:05 AM PASTE THINNER documented as of this encounter Care Teams Manager Area Relationship Specialty Start Date End Date Frazier Shilpaolimpia Law DO PCP - General 06/12/18 07/15/21 Ab Melara MD [address] [address] PCP - General Family Medicine 07/16/21 Lidia Barajas MD Anesthesiologist Anesthesiology 01/13/20 documented as of this encounter
--- OUTSIDE RECORDS SUMMARY | 2025-04-07 14:28 | XMS_ITS | Encounter Summary ---
Author Organization [facility] Address [address] [place] [address] Care Team Providers Care Solution Designer Name Role Phone Fiordaliza Snell MD Primary Care Provider Encounter Details Date Type Department Care Team (Latest Contact Info) Description 11/13/2004 Outpatient Historical [facility] RONALD Garcia, Anjali Gupta MD NO ADDRESS ON FILE LUMP OR MASS IN BREAST (Primary Dx) Social History Tobacco Use Types Packs/Day Years Used Date Smoking Tobacco: Never Assessed Comments Unknown Sex and Gender Information Value Date Recorded Sex Assigned at Not on file Legal Sex Female 2:43 AM HOOP MAKER HELPER MACHINE Gender Identity Not on file Sexual Orientation Not on file documented as of this encounter Plan of Treatment Not on file documented as of this encounter Visit Diagnoses Diagnosis Lump or mass in breast- Primary documented in this encounter Additional Health Concerns Infection Onset Date Last Indicated Resolved Time R/O COVID-19 07/02/2020 07/02/2020 07/02/2020 8:53 PM HOOP MAKER HELPER MACHINE MRSA Comment:Resolved per Type and Duration of Precautions Recommended for Selected Infections and Conditions document 2023 update 07/02/2020 07/02/2020 03/16/20 24 10:58 AM CDT R/O COVID-19 07/10/2020 07/10/2020 07/10/2020 5:01 PM HOOP MAKER HELPER MACHINE documented as of this encounter Care Teams Solution Designer Relationship Specialty Start Date End Date Fiordaliza Snell MD PCP - General Family Practice 09/09/22 documented as of this encounter
--- OUTSIDE RECORDS SUMMARY | 2025-04-07 14:28 | XMS_ITS | Encounter Summary ---
Author Organization [facility] Healthcare Address [address] [place] [address] Care Team Providers Care Certified Emergency Vehicle Technician Name Role Phone Unknown, Notinfile Primary Care Provider Unavail able Shilpa Frazier DO Primary Care Provider Lidia Barajas MD Unavailable Ab Melara MD Primary Care Provid er Encounter Details Date Type Department Care Team (Late st Contact Info) Description 04/07/2018 Telephone [facility] at [facility] [address] [facility] 1st [place] [address] Kate Johnson, RT Social History Tobacco Use Types Packs/Day Years Used Date Smoking Tobacco: Never Smokeless Tobacco: Never Alcohol Use Standard Drinks/Week Comments No 0 (1 standard drink = 0.6 oz pur e alcohol) Comments No Sex and Gender Information Value Date Recorded Sex Assigned at Not on file Legal Sex Female 11:49 PM STONE BANKER Gender Identity Not on file Sexual Orientation [...] DT MRSA 12/27/2021 03/06/2022 09/02/2022 3:05 AM STONE BANKER documented as of this encounter Care Teams Certified Emergency Vehicle Technician Relationship Specialty Start Date End Date Unknown, Notinfile PCP - General 08/28/17 06/11/18 Shilpa Frazier DO PCP - General 06/12/18 07/15/21 Ab Melara MD [address] [address] PCP - General Family Medicine 07/16/21 Lidia Barajas MD Anesthesiologist Anesthesiology 01/13/20 documented as of this encounter
--- OUTSIDE RECORDS SUMMARY | 2025-04-07 14:28 | XMS_ITS | Encounter Summary ---
Author Organization [facility] Address [address] [place] [address] Care Team Providers Care Political Director Name Role Phone Fiordaliza Snell MD [...] on file Legal Sex Female 2:43 AM PERPETUAL INVENTORY CLERK Gender Identity Not on file Sexual Orientation Not on file documented as of this encounter Plan of Treatment Not on file documented as of this encounter Visit Diagnoses Diagnosis Other and unspecified ovarian cyst- Primary documented in this encounter Additional Health Concerns Infection Onset Date Last Indicated Resolved Time R/O COVID-19 07/02/2020 07/02/2020 07/02/2020 8:53 PM PERPETUAL INVENTORY CLERK MRSA Comment:Resolved per Type and Duration of Precautions Recommended for Selected Infections and Conditions document 2023 update 07/02/2020 07/02/2020 03/16/20 24 10:58 AM CDT R/O COVID-19 07/10/2020 07/10/2020 07/10/2020 5:01 PM PERPETUAL INVENTORY CLERK documented as of this encounter Care Teams Political Director Relationship Specialty Start Date End Date Fiordaliza Snell MD PCP - General Family Practice 09/09/22 documented as of this encounter
--- OUTSIDE RECORDS SUMMARY | 2025-04-07 14:28 | XMS_ITS | Patient Health Record ---
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 Problem Lumbosacral radiculopathy (6946665) Radiculopathy, lumbosacral region (M54.17) Active confirmed Plan Of Treatment No Information Insurance Providers Payer Name Payer Address Payer Phone Subscriber Number Group Number Insured Name Patient Relationship to Insured Coverage Start Date Coverage End Date [facility] [address] [place] [address] [id number] Angelina Mcnulty Self - patient is the insured Medical (General) History Medical History History ICD Code HBP heart attack osteoarthritis fibromyalgia urinary incontinence headaches migraines stroke nerve damage IBS asthma chronic bronchitis pneumonia depression anxiety Surgical History Surgery Date(Month/Year) spine fusion & stimulator 2004 spine fusion 2006 spine fusion 2021
--- OUTSIDE RECORDS SUMMARY | 2025-04-07 14:28 | XMS_ITS | Encounter Summary ---
Author Organization [facility] Address [address] [place] [address] Care Team Providers Care Manager Intermediate Name [...] on file Legal Sex Female 2:43 AM PROFESSIONAL HEALTHCARE REPRESENTATIVE Gender Identity Not on file Sexual [...] fL INTERFACE SYSTEM 10/14/2004 6:07 AM CDT [employer] HEMATOLOGY ORDERABLES Final Resu lt Performing Organization Address [facility] Phone Number INTERFACE SYSTEM Refer [...] mmol/L INTERFACE SYSTEM 10/14/2004 6:07 AM CDT [employer] CHEMISTRY ORDERABLES Final Resul t Performing Organization Address [facility] Phone Number INTERFACE SYSTEM Refer to clinic/hospital department * (ABNORMAL) AMYLASE (10/13/2004 9:56 AM CDT) AMYLASE 24(L) 28 - 100 U/L INTERFACE SYSTEM 10/13/2004 9:56 AM CDT Russell Marie CHEMISTRY ORDERABLES Final Resul t Performing Organization Address [facility] Phone Number INTERFACE SYSTEM Refer to clinic/hospital department * LIPASE (10/13/2004 9:56 AM CDT) LIPASE 20 13 - 60 U/L INTERFAC E SYSTEM 10/13/2004 9:56 AM CDT Russell Marie CHEMISTRY ORDERABLES Final Resul t Performing Organization Address [facility] Phone Number INTERFACE SYSTEM Refer [...] ORDERABLES Final Resu lt Performing Organization Address [facility] de Phone Number INTERFACE SYSTEM [...] ORDERABLES Final Resu lt Performing Organization Address [facility] Phone Number INTERFACE SYSTEM Refer to clinic/hospital department * (ABNORMAL) C-REACTIVE PROTEIN (10/13/2004 5:00 AM CDT) CRP 1.3(H) 0.0 - 0.8 mg/dL INTERFACE SYSTEM 10/13/2004 5:00 AM CDT Russell Marie CHEMISTRY ORDERABLES Final Resul t Performing Organization Address [facility] Phone Number INTERFACE SYSTEM Refer [...] URINE ORDERABLES Final Result Performing Organization Address [facility] Co la Phone Number INTERFACE SYSTEM Refer to clinic/hospital [...] ORDERABLES Final Resu lt Performing Organization Address [facility] Co de Phone Number INTERFACE SYSTEM [...] ORDERABLES Final Resul t Performing Organization Address [facility] Co de Phone Number INTERFACE SYSTEM [...] ORDERABLES Final Resu lt Performing Organization Address [facility] Co de Phone Number INTERFACE SYSTEM [...] ORDERABLES Final Resul t Performing Organization Address [facility] Co de Phone Number INTERFACE SYSTEM Refer to clinic/hospital department documented in this encounter Visit Diagnoses Diagnosis Abdominal pain, right lower quadrant- Primary documented in this encounter Additional Health Concerns Infection Onset Date Last Indicated Resolved Time R/O COVID-19 07/02/2020 07/02/2020 07/02/2020 8:53 PM PROFESSIONAL HEALTHCARE REPRESENTATIVE MRSA Comment:Resolved per Type and Duration of Precautions Recommended for Selected Infections and Conditions document 2023 update 07/02/2020 07/02/2020 03/16/20 10:58 AM CDT R/O COVID-19 07/10/2020 07/10/2020 07/10/2020 5:01 PM PROFESSIONAL HEALTHCARE REPRESENTATIVE documented as of this encounter Care Teams Manager Intermediate Relationship Specialty Start Date End Date Fiordaliza Snell MD PCP - General Family Practice 09/09/22 documented as of this encounter
--- OUTSIDE RECORDS SUMMARY | 2025-04-07 14:28 | XMS_ITS | Clinical Summary ---
Author Organization [facility] [employer] Address [address] [facility] [address] Care Team Providers Care Time Clerk Name Role Phone Lidia Barajas MD Unavailable Shilpa Gandhi MD Unavailable Iron Galindo PA-C Primary Care Provide r Cresencio Ghosh MD Unavailable Cresencio Ghosh MD Unavailable Leanna Howe MA Unavailable Source Comments [facility],non-owned Affiliates and Associated Physician Practices is amultiple site organization consisting of ambulatory clinics and hospital sitesin [place], [place], [place] and [place]. This disclosure is being madepursuant to the Care Everywhere program and may not contain all information available regarding this patient. Last updated 18.[facility] Allergies Active Allergy Reactions Criticality Noted [...] (spasms) 90 tablet 2 3 Active Nystop 377957 UNIT/GM powder Apply to affected area 2 [...] Encounters Date Type Department Care Team Description 04/07/2025 Patient Outreach [facility] - Care Coordination [address] [place] [address] Leanna Howe MA Outreach Preventive Care 04/04/2025 Patient Outreach [facility] - Care Coordination [address] [place] [address] Leanna Howe MA Outreach Preventive Care 03/23/2025 Telephone [facility] - Pulmonology [address] [place] [address] [address] [place] [address] Cresencio Ghosh MD Appointment from Last 3 [...] care, and heating? Not very hard 04/02/2023 [facility] [place] of Occupat ional Health - Occupational Stress [...] slept in a halfway (including now)? No 04/02/2023 Comments No Sex and Gender Information Value Date Recorded Sex Assigned at Not on file Legal Sex Female 6:02 AM RESTAURANT DELIVERY DRIVER Gender Identity Not on file Sexual Orientation Not on file Occupation Industry Job Start Date Job End Date Disabled Not on file Not on file Not on file Last Filed Vital Signs Vital Sign Reading Time Taken Comments Blood Pressure 157/91 05/07/2023 9:23 AM RESTAURANT DELIVERY DRIVER Pulse 86 05/07/2023 9:23 AM RESTAURANT DELIVERY DRIVER Temperature 36.3 C (97.3 F) 05/07/2023 9:23 AM RESTAURANT DELIVERY DRIVER Respiratory Rate 18 04/02/2023 3:00 PM CDT Oxygen Saturation 95% 05/07/2023 9:23 AM RESTAURANT DELIVERY DRIVER Inhaled Oxygen Concentration 97% 02/21/2021 1 0:15 [...] < 140/90 Blood Pressure 157/91(2022 9:23 AM RESTAURANT DELIVERY DRIVER) No Sierra Steiner Yearly PCP visit Lifestyle No White, Ava A Have labs drawn Lifestyle No White, Ava A Take recommended medication(s) Lifestyle No White, Ava A Use safety retraint in car Lifestyle No White, Ava A Complete Health Maintenance Screenings Lifestyle No White, Ava A Medical Devices Implanted Type Area Glass Tinter Device Identifier Shelf Expiration Date Model / Serial / Lot Nevro Neurostimulator Senza [id number] (Implanted 2016) Floseal Hemostatic Matrix Implanted:Qty: 1 on 04/02/2019 by Maicol Mcneil DO at [facility] N/A: Spine [employer] 08/10/2020 [id number] / / [id number] Graft Tissue Drgn + Bvn Clgn Mtrx 1x1in Implanted:Qty: 1 on 04/02/2019 by Maicol Mcneil DO at [facility] N/A: Spine [employer] 04/29/2021 [id number] / / [id number] Seal Tisseel Prima 1 Prefil Frz 4ml - [id number] Implanted:Qty: 1 on 04/02/2019 by Maicol Mcneil DO at [facility] N/A: Spine [employer] 08/27/2020 [id number] / [id number] / [id number] Impl Inj 1ml Coaptite Syr Bulk Agnt Implanted:Qty: 2 on 04/11/2020 by Dave Aparicio MD at [facility] N/A: Bladder [place] [employer] 10/25/2022 [id number] / / [id number] Impl Inj 1ml Coaptite Syr Bulk Agnt Implanted:Qty: 2 on 02/05/2022 by Dave Aparicio MD at [facility] Bladder [place] [employer] 10/16/2024 [id number] / / [id number] Stent Uret 7fr 80cm Str Cls Tip Llok Implanted:Qty: 1 on 09/03/2022 by Nel Cerna DO at [facility] Ureter [place] [employer] 12/23/2025 [id number] / / [id number] Description:bilateral ureter s Procedures Procedure Name Priority [...] - 26 mg/dL 04/02/2023 3:[address] [facility] Creatinine 0.69 0.56 - 0.96 mg/dL 04/02/2023 3:07 AM [facility] Sodium 133(L) 136 - 145 mmol/L 04/02/2023 3:07 AM [facility] Potassium 3.9 3.5 - 4.5 mmol/L 04/02/2023 3:07 AM [facility] Chloride 102 98 - 107 mmol/L 04/02/2023 3:07 AM [facility] CO2 26 22 - 29 mmol/L 04/02/2023 3:07 AM [facility] Glucose 122(H) 70 - 115 mg/dL 04/02/2023 3:07 AM [facility] Calcium 8.3(L) 8.4 - 10.2 mg/dL 04/02/2023 3:07 AM [facility] Anion Gap 5(L) 6 - 16 04/02/2023 3:07 AM [facility] BUN/Creatinine Ratio 23 7 - 23 04/02/2023 3:07 AM [facility] Osmolality Calculated 278 275 - 295 mOsm/kg 04/02/2023 3:07 AM [facility] eGFR by CKD-EPI >90 >=90 mL/min/1.7 3 m2 04/02/2023 3:07 AM [facility] Blood BLOOD SPECIMEN / Unknown Lab Venipuncture / Unknown 04/02/2023 2:31 AM CDT 04/02/2023 2:39 AM CDT us Missy Sutherland MD LAB - CHEMISTRY ORDERABLES Final Result Performing Organization Address City/State/[facility] Co de Phone Number [facility] [address] [place] [address], [facility] [phone] * ENDOSCOPY, COLON, SCREENING (11/29/2019) us Provider [...] participate in the care of your patient. [facility] Breast [facility] utilizes [employer] as a reminder system to notify patients of their next recommended mammogram. Narrative 09/23/2017 9:22 AM CDT EXAMINATION: Digital screening mammogram on 09/18/2017. Low-dose full-field digital breast tomosynthesis examination was performed with synthetic 2D images and 3D acquisitions. Computer assisted detection was utilized. PRIOR: Mammogram from [facility] on 11/13/2004. BREAST PARENCHYMAL DENSITY: The breasts are almost entirely fatty. RISK ASSESSMENT CALCULATION: Based on the information provided by your patient, her lifetime risk of breast cancer is average (<15%). Additional quantitative risk model data and patient history details have been scanned as a document/letter in [employer] electronic medical record (media tab). Please note [...] [facility] MANAGED MEDICARE ADV Member Subscriber Plan / Payer (Ef fective 2022-Present) Name:Pricila Angelina Kirby Relation to Subscriber:Self Name:Angelina Mcnulty Payer ID:[id number] (NAIC) Type:Medicare-Managed Care Address: [place] [phone] Advance Directives Documents on File Type Date Recorded Patient Sales Property Manager Expl anation Adv Directive/Living Will/POA 09/16/2022 3:23 [...] 4:01 AM 05/11/2020 8:00 PM Care Teams Time Clerk Relationship Specialty Start Date End Date Iron Galindo PA-C [address] [place] [address] PCP - General Physician Peanut Vendor 02/12/23 Cresencio Ghosh MD [address] [place] [phone] PCP - [facility] P4P 10/28/24 Lidia Barajas MD [address] [facility], [address] Anesthesiology-Pain Management 06/03/19 Shilpa Gandhi MD [address] [place] [phone] Oncology 06/03/19 Cresencio Ghosh MD [address] [place] [phone] Internal Medicine Sleep Medicine 09/29/24 Leanna Howe MA Care Coordination Specialist Care Management 04/04/25 04/07/25
--- OUTSIDE RECORDS SUMMARY | 2025-04-07 14:29 | XMS_ITS | Encounter Summary ---
Author Organization [facility] Healthcare Address [address] [place] [address] Care Team Providers Care Lumber Yard Worker Name Role Phone Shilpa Frazier DO Primary Care Provider Lidia Barajas MD Unavailable Ab Melara MD Primary Care Provid er Encounter Details Date Type Department Care Team (Late st Contact Info) Description 04/24/2020 Telephone [facility] [address] [facility] [address] [place] [address] Tori Arias RN Social History [...] on file Legal Sex Female 11:49 PM ANODIZER Gender Identity Not on file Sexual Orientation [...] DT MRSA 12/27/2021 03/06/2022 09/02/2022 3:05 AM ANODIZER documented as of this encounter Care Teams Lumber Yard Worker Relationship Specialty Start Date End Date Shilpa Frazier DO PCP - General 06/12/18 07/15/21 Ab Melara MD [address] [phone] PCP - General Family Medicine 07/16/21 Lidia Barajas MD Anesthesiologist Anesthesiology 01/13/20 documented as of this encounter
--- OUTSIDE RECORDS SUMMARY | 2025-04-07 14:29 | XMS_ITS | Encounter Summary ---
Author Organization [facility] Address [address] [place] [address] Care Team Providers Care Interior Designer Name Role Phone Fiordaliza Snell MD [...] on file Legal Sex Female 2:43 AM SKY DIVER Gender Identity Not on file Sexual Orientation Not on file documented as of this encounter Plan of Treatment Not on file documented as of this encounter Visit Diagnoses Diagnosis Abdominal pain, unspecified site- Primary documented in this encounter Additional Health Concerns Infection Onset Date Last Indicated Resolved Time R/O COVID-19 07/02/2020 07/02/2020 07/02/2020 8:53 PM SKY DIVER MRSA Comment:Resolved per Type and Duration of Precautions Recommended for Selected Infections and Conditions document 2023 update 07/02/2020 07/02/2020 03/16/20 24 10:58 AM CDT R/O COVID-19 07/10/2020 07/10/2020 07/10/2020 5:01 PM SKY DIVER documented as of this encounter Care Teams Interior Designer Relationship Specialty Start Date End Date Fiordaliza Snell MD PCP - General Family Practice 09/09/22 documented as of this encounter
--- OUTSIDE RECORDS SUMMARY | 2025-04-07 14:29 | XMS_ITS | Clinical Summary ---
Author Organization [facility] al Address [address] [place] [address] Care Team Providers Care Antisqueak Filler Name Role Phone Lidia Barajas MD Unavailable [...] for pain 42 tablet 2 Active multivit czwdfcwd-tsvy-OX-c alcium (THERA-M) 9 mg iron-400 mcg tabletIndications: [...] (10/24/2021): Added automatically from request for surgery [id number] Postlaminectomy syndrome, lumbar region 10/25/19 Overview (10/24/2021): Added automatically from request for surgery [id number] Assessment & Plan (07/03/2022 3:48 PM TRANSPORTATION DEPARTMENT SUPERVISOR): Ms. Mcnulty is doing well following lumbar [...] (10/24/2021): Added automatically from request for surgery [id number] Other chest pain 01/19/2020 Assessment & Plan [...] need for exchange this admission Suprapubic catheter ([facility]) 11/16/2019 Essential hypertension 11/16/2019 Hypertensive urgency 11/16/2019 [...] (11/25/2019): Added automatically from request for surgery [id number] Chronic lumbar radiculopathy 01/21/2019 Chronic back pain 01/21/2019 Spinal stenosis of lumbar region with radiculopa thy 12/04/2018 Assessment & Plan (07/18/2021 10:23 AM TRANSPORTATION DEPARTMENT SUPERVISOR): Assessment Healed fusion L2-5 severe retrolisthesis with [...] (06/18/2018): Added automatically from request for surgery [id number] Assessment & Plan (12/04/2018 3:42 PM CDT): Healing fusion C6-7 Continued observation. Assessment & Plan (08/12/2018 10:35 AM TRANSPORTATION DEPARTMENT SUPERVISOR): Assessment Healing fusion C6-7 Plan Talked about do's and don'ts she is still to maintain her initial restrictions and return in 6 weeks for an x-ray Assessment & Plan (06/25/2018 2:43 PM TRANSPORTATION DEPARTMENT SUPERVISOR): [facility] [...] (06/18/2018): Added automatically from request for surgery [id number] Cervical pain (neck) 06/13/2018 Asthma 11/13/2013 Overview [...] often do you attend chur ch or confucianism services? More than 4 times per year 03/07/2022 Do you belong to any clubs o r organizations such as yazidi groups, unions, fraternal or athletic groups, or [...] on file Legal Sex Female 11:49 PM TRANSPORTATION DEPARTMENT SUPERVISOR Gender Identity Not on file [...] Plan Chronic Care Management Worsening( 10:12 AM TRANSPORTATION DEPARTMENT SUPERVISOR) Milvia Mireles RN Note: Problem: Chronic Pain Goals: 1. Minimize further functional decline 2. Maximize quality of life 3. Control pain Strategies: - Activity/exercise program recommendation - Conservative stepwise pain medicine strategy with multi-disciplinary approach - Recommend healthy lifestyle strategies and compensatory methods as needed Medical Devices Implanted Type Area Sales/Marketing Device Identifier Shelf Expiration Date Model / Serial / Lot Spinal Cord Stimulator-2016 Implanted:01/28 (Quantity not on file) Spinal Cord Stimulator Left: Hip Nevro Spinal Cord Stimulation System [id number] / / Description:Closed Bore only 1.5T or [...] ensure it has returned to pre-MRI settings. AM [employer] 700-025 I Factor Allograft Putty Syringe Graft 2.5cc Bone - [id number] Implanted:Qty: 1 on 07/03/2018 by Zachary Rothman MD at [facility] N/A: Spine Cervical [employer] Inc 03/29/2021 700-025 / / [id number] Plate 1-Level 14 Mm Cervical - [id number] Implanted:Qty: 1 on 07/03/2018 by Zachary Rothman MD at [facility] N/A: Spine Cervical [employer] 30-0114 / / Screw 4.0x14mm Self Drilling Variable - [id number] Implanted:Qty: 4 on 07/03/2018 by Zachary Rothman MD at [facility] N/A: Spine Cervical [employer] 31-9594 / / Cage Spinal [id number] 7 Degree Porous Coated Latex Free - [id number] Implanted:Qty: 1 on 07/03/2018 by Zachary Rothman MD at [facility] N/A: Spine Cervical Spinal Elements [id number] / / Depuy Synthes Spine [id number] Substitute Bone Graft Fibergraft Gps Medium Putty 6cc - [id number] Implanted:Qty: 1 on 11/29/2021 by Dave Louis MD at [facility] N/A: Lumbar-Sa cral Spine Depuy Synthes Spine [id number] 10/18/2023 [id number] / / [id number] [employer] Osteosponge Allograft Chips Radiolucent Thk4-10mm Graft 30cc Bone [id number] - [id number] - [id number] Implanted:Qty: 1 on 11/29/2021 by Dave oLuis MD at [facility] N/A: Lumbar-Sa cral Spine [employer] 10/14/2024 [id number] / [id number] / Depuy Synthes Spine Cage Post Spinal 4d Plif Ti [id number] - [id number] Implanted:Qty: 1 on 11/29/2021 by Dave Louis MD at [facility] N/A: Lumbar-Sa cral Spine Depuy Synthes Spine [id number] 07/30/2024 [id number] / / [id number] Depuy Synthes Spine Expedium 5.5mm 80mm Line Prebent Rodney Spinal Titanium Nonsterile [id number] - [id number] Implanted:Qty: 1 on 11/29/2021 by Dave Louis MD at [facility] N/A: Lumbar-Sa cral Spine Depuy Synthes Spine [id number] / / Depuy Synthes Spine Expedium 5.5mm 85mm Line Prebent Rodney Spinal Titanium Nonsterile [id number] - [id number] Implanted:Qty: 1 on 11/29/2021 by Dave Louis MD at [facility] N/A: Lumbar-Sa cral Spine Depuy Synthes Spine [id number] / / Depuy Synthes Spine Expedium 5.5mm 45mm Polyaxial Spine Screw Bone Titanium 5.5mm Rodney [id number] - [id number] Implanted:Qty: 2 on 11/29/2021 by Dave Louis MD at [facility] N/A: Lumbar-Sa cral Spine Depuy Synthes Spine [id number] / / Depuy Synthes Spine Expedium 6.5mm 45mm Polyaxial Spine Screw Bone Titanium 5.5mm Rodney [id number] - [id number] Implanted:Qty: 3 on 11/29/2021 by Dave Louis MD at [facility] N/A: Lumbar-Sa cral Spine Depuy Synthes Spine [id number] / / Depuy Synthes Spine Expedium 1 Inner Monoaxial Spine Screw Set Titanium [id number] - [id number] Implanted:Qty: 6 on 11/29/2021 by Dave Louis MD at [facility] N/A: Lumbar-Sa cral Spine Depuy Synthes Spine [id number] / / Depuy Synthes Spine Expedium 7mm 45mm 1 Innie Polyaxial Spine Screw Bone Titanium [id number] - [id number] Implanted:Qty: 1 on 11/29/2021 by Dave Louis MD at [facility] N/A: Lumbar-Sa cral Spine Depuy Synthes Spine [id number] / / Procedures Procedure Name Priority Date/Time [...] 11/29/2019 8:04 AM Admit Type: Inpatient Room: [facility] 4 Date of : 1965 Instrument [...] the bowel preparation was evaluated usingthe BBPS ([employer] Bowel Preparation Scale) with scores of: Right [...] AM CDT) Hep A IgM Nonreactive Nonreactive [facility] Comment: Interpretive Data: If Hep A IgM Ab is reported as Equivocal, a new sample should be drawn in two weeks for testing. Current interpretive data was last revised on 19. Hep B core IgM Nonreactive Nonreactive [facility] Comment: Interpretive Data If HepB Core IgM Ab is reported as Equivocal, a new sample should be drawn in two weeks for testing. Current interpretive data was last revised on 19. Hep C Ab Nonreactive Nonreactive [facility] Comment: Interpretive Data Nonreactive: Antibodies to HCV [...] HepBsAg Nonreactive Nonreactive [facility] Blood specimen (specimen) 11/17/2019 4:13 AM CDT 11/17/2019 4:31 AM CDT [facility] MICROBIOLOGY - GENERAL ORDERABLES Final Result [facility] [address] Department [place] [address] from Last 3 Months or Most Recently Relevant to Health Maintenance Insurance UHC MEDICARE ADVANTAGE [facility] Address: [address] [address] [place] [address] [facility] [place] [address] [facility] UHC MEDICARE ADVANTAGE [facility] Address: [address] [address] [place] [address] Advance Directives For more information, please contact: [phone] Documents on File Type Date Recorded 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
--- OUTSIDE RECORDS SUMMARY | 2025-04-07 14:29 | XMS_ITS | Encounter Summary ---
Author Organization [facility] Address [address] [place] [address] Care Team Providers Care Pharmacy Salesperson Name Role Phone Fiordaliza Snell MD Primary [...] on file Legal Sex Female 2:43 AM CHIEF CLERK SHELTER Gender Identity Not on file Sexual Orientation Not on file documented as of this encounter Plan of Treatment Not on file documented as of this encounter Visit Diagnoses Diagnosis Unspecified symptom associated with female genital organs- Primary documented in this encounter Additional Health Concerns Infection Onset Date Last Indicated Resolved Time R/O COVID-19 07/02/2020 07/02/2020 07/02/2020 8:53 PM CHIEF CLERK SHELTER MRSA Comment:Resolved per Type and Duration of Precautions Recommended for Selected Infections and Conditions document 2023 update 07/02/2020 07/02/2020 03/16/20 24 10:58 AM CDT R/O COVID-19 07/10/2020 07/10/2020 07/10/2020 5:01 PM CHIEF CLERK SHELTER documented as of this encounter Care Teams Pharmacy Salesperson Relationship Specialty Start Date End Date Fiordaliza Snell MD PCP - General Family Practice 09/09/22 documented as of this encounter
--- OUTSIDE RECORDS SUMMARY | 2025-04-07 14:29 | XMS_ITS | Encounter Summary ---
Author Organization [facility] Address [address] [place] [address] Care Team Providers Care Contracts Representative Name Role Phone Fiordaliza Snell MD [...] on file Legal Sex Female 2:43 AM ROLFER Gender Identity Not on file Sexual Orientation Not on file documented as of this encounter Plan of Treatment Not on file documented as of this encounter Visit Diagnoses Diagnosis Surgical or other procedure not carried out because of patient's decision- Primary documented in this encounter Additional Health Concerns Infection Onset Date Last Indicated Resolved Time R/O COVID-19 07/02/2020 07/02/2020 07/02/2020 8:53 PM ROLFER MRSA Comment:Resolved per Type and Duration of Precautions Recommended for Selected Infections and Conditions document 2023 update 07/02/2020 07/02/2020 03/16/20 24 10:58 AM CDT R/O COVID-19 07/10/2020 07/10/2020 07/10/2020 5:01 PM ROLFER documented as of this encounter Care Teams Contracts Representative Relationship Specialty Start Date End Date Fiordaliza Snell MD PCP - General Family Practice 09/09/22 documented as of this encounter
--- OUTSIDE RECORDS SUMMARY | 2025-04-07 14:29 | XMS_ITS | Encounter Summary ---
Author Organization [facility] Healthcare Address [address] [place] [address] Care Team Providers Care Superintendent Name Role Phone FrazierShilpa DO Primary Care Provider Lidia Barajas MD Unavailable Ab Melara MD Primary Care Provid er Encounter Details Date Type Department Care Team (Late st Contact Info) Description 03/19/2019 Telephone [facility] - Interventional Radiology [address] [place] [address] Nhung French RN Social History [...] on file Legal Sex Female 11:49 PM GUILLOTINE TRIMMER Gender Identity Not on file Sexual [...] DT MRSA 12/27/2021 03/06/2022 09/02/2022 3:05 AM GUILLOTINE TRIMMER documented as of this encounter Care Teams Superintendent Relationship Specialty Start Date End Date Shilpa Frazier DO PCP - General 06/12/18 07/15/21 Ab Melara MD [address] [address] PCP - General Family Medicine 07/16/21 Lidia Barajas MD Anesthesiologist Anesthesiology 01/13/20 documented as of this encounter
--- OUTSIDE RECORDS SUMMARY | 2025-04-07 14:29 | XMS_ITS | Encounter Summary ---
Author Organization [facility] Address [address] [place] [address] Care Team Providers Care Scientist/Engineer Name Role Phone Fiordaliza Snell MD Primary [...] on file Legal Sex Female 2:43 AM AIRLINE PILOT/FIRST OFFICER Gender Identity Not on file Sexual Orientation Not on file documented as of this encounter Plan of Treatment Not on file documented as of this encounter Visit Diagnoses Diagnosis Excessive or frequent menstruation- Primary documented in this encounter Additional Health Concerns Infection Onset Date Last Indicated Resolved Time R/O COVID-19 07/02/2020 07/02/2020 07/02/2020 8:53 PM AIRLINE PILOT/FIRST OFFICER MRSA Comment:Resolved per Type and Duration of Precautions Recommended for Selected Infections and Conditions document 2023 update 07/02/2020 07/02/2020 03/16/20 24 10:58 AM CDT R/O COVID-19 07/10/2020 07/10/2020 07/10/2020 5:01 PM AIRLINE PILOT/FIRST OFFICER documented as of this encounter Care Teams Scientist/Engineer Relationship Specialty Start Date End Date Fiordaliza Snell MD PCP - General Family Practice 09/09/22 documented as of this encounter
--- OUTSIDE RECORDS SUMMARY | 2025-04-07 14:29 | XMS_ITS | Clinical Summary ---
Author Organization [facility] Address [address] [place] [address] Phone Care Team Providers Care Department Of Mathematics Chair Name Role Phone Fiordaliza Snell MD Primary [...] migh t be different from the original. Pumping Station Engineer - Dr. Eddie Tapia MD, FAC, [facility] - [address] [facility] [...] NOS Added automatically from request for surgery [id number] Last Assessment & Plan: Healing fusion C6-7 [...] (09/14/2021): Added automatically from request for surgery [id number] Cervical pain (neck) 06/13/2018 Intractable pain 10/13/2011 [...] COVID-19 VACCINE - EMERGENCY USE AUTHORIZATION, MRNA, [id number](PF) 30 MCG/0.3 ML IM SUSP 12/13/2020,11/20/2020 (PNEUMOVAX [...] on file Legal Sex Female 2:43 AM ICEBOX WORKER Gender Identity Not on file Sexual [...] CDT Respiratory Rate 18 07/12/2020 9:24 PM ICEBOX WORKER Oxygen Saturation 97% 04/20/2021 2:12 PM CDT Inhaled Oxygen Concentration - - Weight 91.6 kg (202 lb) 08/07/2020 2:15 PM ICEBOX WORKER Height 172.7 cm (5' 8) 04/20/2021 2:12 PM CDT Body Mass Index 30.71 08/07/2020 2:15 PM ICEBOX WORKER Plan of Treatment Health Maintenance Due [...] Colorectal Cancer Screening 11/28/2029 Insurance [employer] PPO [facility] DUAL COMPLETE PPO [facility] [id number] Advance Directives For more information, please contact: [phone] * Full Code (Latest Code Status on File) Date Activated Date Inactivated Comments 07/02/2020 10:50 PM 07/13/2020 1:53 PM * Full Code Date Activated Date Inactivated Comments 06/26/2011 3:20 AM 06/26/2011 8:40 PM Care Teams Department Of Mathematics Chair Relationship Specialty Start Date End Date Fiordaliza Snell MD PCP - General Family Practice 09/09/22
--- OUTSIDE RECORDS SUMMARY | 2025-04-07 14:29 | XMS_ITS | Encounter Summary ---
Author Organization [facility] Address [address] [place] [address] Care Team Providers Care Medical Review Coordinator Name Role Phone Fiordaliza Snell MD [...] file Legal Sex Female 2:43 AM BUSINESS AND FINANCIAL COUNSEL Gender Identity Not on file Sexual Orientation Not on file documented as of this encounter Plan of Treatment Not on file documented as of this encounter Visit Diagnoses Diagnosis Unspecified symptom associated with female genital organs- Primary documented in this encounter Additional Health Concerns Infection Onset Date Last Indicated Resolved Time R/O COVID-19 07/02/2020 07/02/2020 07/02/2020 8:53 PM BUSINESS AND FINANCIAL COUNSEL MRSA Comment:Resolved per Type and Duration of Precautions Recommended for Selected Infections and Conditions document 2023 update 07/02/2020 07/02/2020 03/16/20 24 10:58 AM CDT R/O COVID-19 07/10/2020 07/10/2020 07/10/2020 5:01 PM BUSINESS AND FINANCIAL COUNSEL documented as of this encounter Care Teams Medical Review Coordinator Relationship Specialty Start Date End Date Fiordaliza Snell MD PCP - General Family Practice 09/09/22 documented as of this encounter
--- OUTSIDE RECORDS SUMMARY | 2025-04-07 14:29 | XMS_ITS | Encounter Summary ---
Author Organization [facility] Address [address] [place] [address] Care Team Providers Care Bolt Labeler Name Role Phone Fiordaliza Snell MD Primary [...] on file Legal Sex Female 2:43 AM SCHEDULE MAKER Gender Identity Not on file Sexual Orientation Not on file documented as of this encounter Plan of Treatment Not on file documented as of this encounter Visit Diagnoses Diagnosis Lumbago- Primary documented in this encounter Additional Health Concerns Infection Onset Date Last Indicated Resolved Time R/O COVID-19 07/02/2020 07/02/2020 07/02/2020 8:53 PM SCHEDULE MAKER MRSA Comment:Resolved per Type and Duration of Precautions Recommended for Selected Infections and Conditions document 2023 update 07/02/2020 07/02/2020 03/16/20 24 10:58 AM CDT R/O COVID-19 07/10/2020 07/10/2020 07/10/2020 5:01 PM SCHEDULE MAKER documented as of this encounter Care Teams Bolt Labeler Relationship Specialty Start Date End Date Fiordaliza Snell MD PCP - General Family Practice 09/09/22 documented as of this encounter
--- OUTSIDE RECORDS SUMMARY | 2025-04-07 14:29 | XMS_ITS | Encounter Summary ---
Author Organization [facility] Address [address] [place] [address] Care Team Providers Care Pasteurizer Helper Name Role Phone Fiordaliza Snell MD [...] on file Legal Sex Female 2:43 AM BROOMCORN SEEDER Gender Identity Not on file Sexual Orientation Not on file documented as of this encounter Plan of Treatment Not on file documented as of this encounter Visit Diagnoses Diagnosis Pelvic peritoneal adhesions, female (postoperative) (postinfection)- Primary documented in this encounter Additional Health Concerns Infection Onset Date Last Indicated Resolved Time R/O COVID-19 07/02/2020 07/02/2020 07/02/2020 8:53 PM BROOMCORN SEEDER MRSA Comment:Resolved per Type and Duration of Precautions Recommended for Selected Infections and Conditions document 2023 update 07/02/2020 07/02/2020 03/16/20 24 10:58 AM CDT R/O COVID-19 07/10/2020 07/10/2020 07/10/2020 5:01 PM BROOMCORN SEEDER documented as of this encounter Care Teams Pasteurizer Helper Relationship Specialty Start Date End Date Fiordaliza Snell MD PCP - General Family Practice 09/09/22 documented as of this encounter
--- OUTSIDE RECORDS SUMMARY | 2025-04-07 14:29 | XMS_ITS | Patient Health Record ---
Author Organization [facility] [place] Address [address] [place] [address] Support Name Relationship Address Phone JJ MOYA Guarantor Unknown [phone] Allergies Allergen (clinical drug ingredient) Drug/Non Drug [...] Status W/U Status Risk Notes Problem Hyperlipidemia (27148753) Hyperlipidemia, unspecified (E78.5) Active confirmed Diagnose d by lab results,stab le Problem Moderate recurrent major depression (12794656) Major depressive disorder, recurrent, moderate (F33.1) Active confirmed Problem Restless legs syndrome (84981321) Restless legs syndrome (G25.81) Active confirmed Problem Insomnia (115868451) Insomnia, unspecified (G47.00) Active confirmed Problem Chronic pain (31440450) Other chronic pain (G89.29) Active confirmed Diagnosed by history. Needs improvement Problem Essential hypertension (31561440) Essential (primary) hypertension (I10) Active confirmed Diagnosed by history. Stable on medication. 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 Stable on medication. Problem Cervicalgia (63437191) Cervicalgia (M54.2) Active confirmed Diagn osed by history. Stable on medication. Problem Sciatica (93374200) Lumbago with sciatica, right side (M54.41) Active confirmed Diagnosed by history. Needs improvement Problem Post-laminectomy syndrome (02427200) Postlaminectomy syndrome, not elsewhere classified (M96.1) Active confirmed Diagnosed by history. Needs improvement Problem Nausea (249948013) Nausea (R11.0) Active confirmed Diagnosed by history. 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 Stable on medication. Problem Body mass index 30.00 to 34.99 (061585840896513 ) Body mass index (BMI) 33.0-33.9, adult (Z68.33) Active confirmed Problem Opioid dependence (09140675) Uncomplicated opioid dependence (F11.20) Active confirmed Diagnosed by history. Stable on medication. Problem Lumbosacral spondylosis without myelopathy (05870466) Spondylosis of lumbar region without myelopathy or radiculopathy (M47.816) Active confirmed Diagnosed by history. Needs improvement Problem Sciatica (82784134) Sciatica of right side (M54.31) Active confirmed Diagnosed by history. Needs improvement Problem Neuritis of left ulnar nerve (776577220531289 00) Neuritis of left ulnar nerve (G56.22) Active confirmed Diagnosed by history. Resolved with surgical procedure Problem History of spinal fusion (21092524687015) History of spinal fusion (Z98.1) Active confirmed Diagnosed by history. 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 Stable on medication. 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 Stable on medication. Plan Of Treatment Pending Test Test Name Order Date MRI : Lumbar with and without Contrast 0 11/22/2016 Hemoglobin A1c 04/29/2017 Urinalysis, Routine 02/08/2014 Urinalysis, Routine 03/31/2015 CBC With Differential/Platelet 2014 CBC With Differential/Platelet 2016 CBC With Differential/Platelet 2013 Lipid Panel With LDL/HDL Ratio 4 Lipid Panel With LDL/HDL Ratio 5 Lipid Panel 04/29/2017 Lipid Panel 12/03/2016 Comp. Metabolic Panel (14) 02/08/2014 Comp. Metabolic Panel (14) 04/29/2017 Comp. Metabolic Panel (14) 03/31/2015 Medical (General) History Medical History History ICD Code Major depressive disorder, recurrent, mo derate F33.1 Essential (primary) hypertension I10 Insomnia, unspecified G47.00 Restless legs syndrome G25.81 Other polyosteoarthritis M15.8 Hyperlipidemia, unspecified E78.5 Hyperlipidemia, unspecified History of spinal fusion Uncomplicated opioid dependence intermediate project manager current use of opiate analgesi c Cervicalgia [...] Reason Date(Month/Year) Back pain/ Nerve pain admiss [facility] [place] and transferred to [facility] October 2016 Back/ nerve pain [place] [facility] September 2015
--- OUTSIDE RECORDS SUMMARY | 2025-04-07 14:29 | XMS_ITS | Patient Health Record ---
Author Organization [facility] Address [address] [place] [address] Care Team Providers Care Nps Name Role Phone Hayley Bautista Unavailable [phone] Reason For Referral No Information Medications Medication SIG (Take, Route, Frequency, Duration) Notes Start Date End Date Status Myrbetriq 50 MG Tablet Extended Release 24 Hour Oral Active Ondansetron 4 MG Tablet Disintegrating Oral Active Cefpodoxime Proxetil 200 MG Tablet Oral Active Dicyclomine HCl 10 MG Capsule Oral Active Nystatin-Triamcinolone 257342-8.1 UNIT/GM Cream External Active Pregabalin 100 MG Capsule Oral Active Acetaminophen Extra Strength 500 MG Tablet Oral Activ e Hydrocortisone 10 MG Tablet Oral Active rOPINIRole HCl 0.5 MG Tablet Oral Active SUMAtriptan Succinate 6 mg/0.5 mL Solution Subcutaneous Active rOPINIRole HCl 1 MG Tablet Oral Active SOLIFENACIN 10 MG TABLET *Reorder from [facility] for eRx and Interaction Alerts* [...] Fluconazole 200 MG Tablet Oral Active Nystop 403928 UNIT/GM Powder External Active Ciprofloxacin HCl 500 MG Tablet Oral Active oxyCODONE HCl 5 MG Tablet Oral Active ADVANCED ANTACID 200-200-20 mg/5 mL Suspension Oral *Reorder from [employer] for eRx and Interaction Alerts* Active Cyclobenzaprine [...] Medicare Replacement/ Advantage - Ppo [address] [address] [place] [address] [id number] JJ MOYA Self - patient is the insured
--- OUTSIDE RECORDS SUMMARY | 2025-04-07 14:29 | XMS_ITS | Encounter Summary ---
Author Organization [facility] Address [address] [place] [address] Care Team Providers Care Director Physical Name Role Phone Fiordaliza Snell MD Primary [...] file Legal Sex Female 2:43 AM SENIOR TABLEAU DEVELOPER Gender Identity Not on file Sexual Orientation Not on file documented as of this encounter Plan of Treatment Not on file documented as of this encounter Visit Diagnoses Diagnosis Closed fracture of lateral malleolus- Primary documented in this encounter Additional Health Concerns Infection Onset Date Last Indicated Resolved Time R/O COVID-19 07/02/2020 07/02/2020 07/02/2020 8:53 PM SENIOR TABLEAU DEVELOPER MRSA Comment:Resolved per Type and Duration of Precautions Recommended for Selected Infections and Conditions document 2023 update 07/02/2020 07/02/2020 03/16/20 10:58 AM CDT R/O COVID-19 07/10/2020 07/10/2020 07/10/2020 5:01 PM SENIOR TABLEAU DEVELOPER documented as of this encounter Care Teams Director Physical Relationship Specialty Start Date End Date Fiordaliza Snell MD PCP - General Family Practice 09/09/22 documented as of this encounter
--- OUTSIDE RECORDS SUMMARY | 2025-04-07 14:29 | XMS_ITS | Encounter Summary ---
Author Organization [facility] Address [address] [place] [address] Care Team Providers Care Rn Embedded Name Role Phone Shilpa Frazier DO Primary Care Provider [phone] Lidia Barajas MD Unavailable Shilpa Gandhi MD Unavailable Massiel Melara MD Primary Care Provider [phone] Shilpa Frazier DO Primary Care Provider [phone] Iron Galindo PANikiC Primary Care Provide r Cresencio Ghosh MD Unavailable [phone] Cresencio Ghosh MD Unavailable [phone] Cresencio Ghosh MD Unavailable Leanna Howe MA Unavailable Encounter Details Date Type Department Care Team (Late st Contact Info) Description 01/23/2015 Therapy Visit EXTERNAL NON-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 [id number] 10/07/2019 10/07/2019 09/05/19 8:37 AM AUTOMOTIVE MAINTENANCE TECHNICIAN MRSA 10/07/2019 10/07/2019 01/29/2020 8:33 AM CDT MRSA 01/28/2020 01/28/2020 03/20/2020 7:45 AM CDT COVID-19 Under Investigation 04/06/2020 04/08/2020 04/09/2020 5:20 AM CDT MRSA 04/11/2020 04/11/2020 12/25/2020 9:00 AM CDT COVID-19 Under Investigation 08/07/2020 08/07/2020 08/08/2020 3:45 PM AUTOMOTIVE MAINTENANCE TECHNICIAN COVID-19 Under Investigation 08/11/2020 08/11/2020 08/12/2020 4:08 AM AUTOMOTIVE MAINTENANCE TECHNICIAN MRSA 05/13/2021 02/05/2022 09/04/2022 8:37 AM AUTOMOTIVE MAINTENANCE TECHNICIAN MRSA Hx 09/04/2022 09/04/2022 MDRO Comment:04/01/23 MDRO resolved, ES 02/23/2023 02/23/20232022 7:16 AM CDT MDRO Hx 04/01/2023 04/01/2023 MDRO 05/08/2023 05/08/2023 documented as of this encounter Care Teams Rn Embedded Relationship Specialty Start Date End Date Shilpa Frazier DO [address] [facility] [address] [place] [address] PCP - General Family Medicine 08/06/17 07/31/20 Massiel Melara MD [address] [place], [place] [id number] PCP - General Family Medicine 08/01/20 10/01/20 Shilpa Frazier DO [address] [facility] [address] [place] [address] PCP - General Family Medicine 10/02/20 10/03/20 Iron Galindo PA-C [address] [address] [address] [place] [address] PCP - General Physician Pre Sales Technical Consultant 02/12/23 Cresencio Ghosh MD [address] [place] [id number] PCP - Attributed-[facility] P4 12/29/23 09/14/24 Cresencio Ghosh MD [address] [place] [id number] PCP - Attributed-[facility] P4P 10/28/24 Lidia Barajas MD [address] [facility], [address] Anesthesiology-Pain Management 06/03/19 Shilpa Gandhi MD [address] [place] [address] Oncology 06/03/19 Cresencio Ghosh MD [address] [place] [address] Internal Medicine Sleep Medicine 09/29/24 Leanna Howe MA Care Coordination Specialist Care Management 04/04/25 04/07/25 documented as of this encounter
--- OUTSIDE RECORDS SUMMARY | 2025-04-07 14:29 | XMS_ITS | Encounter Summary ---
Author Organization [facility] Healthcare Address [address] [place] [address] Care Team Providers Care Drawing Tender Name Role Phone Shilpa Fraziermeera PEREZ Primary Care Provider Lidia Barajas MD Unavailable Ab Melara MD Primary Care Provid er Reason for Visit * Reason Onset Date Comments PRECALL ANTICOAG 02/18/2020 Encounter Details Date Type Department Care Team (Late st Contact Info) Description 02/18/2020 Telephone [facility] at [facility] [address] [facility] [address] [place] [address] Tori Arias RN PRECALL ANTICOAG [...] on file Legal Sex Female 11:49 PM SEISMOGRAPHER Gender Identity Not on file Sexual Orientation [...] DT MRSA 12/27/2021 03/06/2022 09/02/2022 3:05 AM SEISMOGRAPHER documented as of this encounter Care Teams Drawing Tender Relationship Specialty Start Date End Date Shilpa Frazier DO PCP - General 06/12/18 07/15/21 Ab Melara MD [address] [address] PCP - General Family Medicine 07/16/21 Lidia Barajas MD Anesthesiologist Anesthesiology 01/13/20 documented as of this encounter
--- OUTSIDE RECORDS SUMMARY | 2025-04-07 14:29 | XMS_ITS | Encounter Summary ---
Author Organization [facility] Address [address] [place] [address] Care Team Providers Care Weaver [place] Name Role Phone Fiordaliza Snell MD Primary [...] on file Legal Sex Female 2:43 AM INHALATION THERAPY TEACHER Gender Identity Not on file Sexual Orientation Not on file documented as of this encounter Plan of Treatment Not on file documented as of this encounter Visit Diagnoses Diagnosis Metrorrhagia- Primary documented in this encounter Additional Health Concerns Infection Onset Date Last Indicated Resolved Time R/O COVID-19 07/02/2020 07/02/2020 07/02/2020 8:53 PM INHALATION THERAPY TEACHER MRSA Comment:Resolved per Type and Duration of Precautions Recommended for Selected Infections and Conditions document 2023 update 07/02/2020 07/02/2020 03/16/20 24 10:58 AM CDT R/O COVID-19 07/10/2020 07/10/2020 07/10/2020 5:01 PM INHALATION THERAPY TEACHER documented as of this encounter Care Teams [place] Relationship Specialty Start Date End Date Fiordaliza Snell MD PCP - General Family Practice 09/09/22 documented as of this encounter
--- OUTSIDE RECORDS SUMMARY | 2025-04-07 14:29 | XMS_ITS | Encounter Summary ---
Author Organization [facility] Healthcare Address [address] [place] [address] Care Team Providers Care Field Handyman Name Role Phone Shilpa Frazier DO Primary Care Provider Lidia Barajas MD Unavailable Ab Melara MD Primary Care Provid er Encounter Details Date Type Department Care Team (Late st Contact Info) Description 03/15/2019 Telephone [facility] - Interventional Radiology [address] [place] [address] Philly Aguirre RN Social History [...] on file Legal Sex Female 11:49 PM RECOVERY COLLECTOR Gender Identity Not on file Sexual Orientation [...] DT MRSA 12/27/2021 03/06/2022 09/02/2022 3:05 AM RECOVERY COLLECTOR documented as of this encounter Care Teams Field Handyman Relationship Specialty Start Date End Date Shilpa Frazier DO PCP - General 06/12/18 07/15/21 Ab Melara MD [address] [address] PCP - General Family Medicine 07/16/21 Lidia Barajas MD Anesthesiologist Anesthesiology 01/13/20 documented as of this encounter
== END 2025-04-07 14:25 | disposition home or self-care (01) ==
LOC: ANHLAB 14:25
PROVIDERS: PCP Internal Medicine; Visit Provider Internal Medicine
DX: R19.7 Diarrhea, unspecified (principal)
CPT/HCPCS: 87045; 87046; 87427

== ENCOUNTER 2025-06-13 15:43 | Inpatient (IN) | payer MEDICARE, SELFPAY ==
[2025-06-13] VITALS (10 sets, daily range): BP systolic 104–199; BP diastolic 70–118; PULSE 82–98; RESP 11–20; TEMP 37.2; O2SAT 92–98
--- NOTE | ~2025-06-13 | CT_ITS ---
CT abdomen pelvis w con INDICATION:LUQ and LLQ abdominal pain . COMPARISON: 03/24/2025 TECHNIQUE: Axial images of the abdomen and pelvis were obtained following infusion of 100 mL Isovue 300. Dose optimization technique was utilized. FINDINGS: The lung bases are clear. The liver parenchyma is unremarkable. No intrahepatic mass or ductal dilatation is evident. The patient has had a cholecystectomy. The pancreas and spleen are normal in appearance. The adrenal glands are symmetric in size. Kidneys enhance symmetrically. There is mild bilateral hydronephrosis with ileal conduit again noted. There is a urostomy in the left abdomen. 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 No cystic mass is evident. There is no solid mass. Bladder is surgically absent. There are no bowel obstruction. The bladder and rectum are normal. No free intraperitoneal fluid or air is evident. There is no significant retroperitoneal lymphadenopathy. The aorta, visceral vessels and renal arteries demonstrate normal caliber and patency. The lower thoracic and lumbar vertebrae are in normal alignment. IMPRESSION: Bilateral hydronephrosis, right greater than left. There is ileal conduit noted with urostomy in the anterior abdomen just to the left of midline. 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 No bowel obstruction. All CT scans at this facility are performed using low dose modulation techniques as appropriate to perform exam including the following: automated exposure control; use of iterative reconstruction technique; adjustment of the mA and/or kV according to patient size (this includes techniques or standardized protocols for targeted exams where dose is matched to indication/reason for exam). Reviewed, dictated and finalized at location [facility] IMPRESSION: Bilateral hydronephrosis, right greater than left. There is ileal conduit noted with urostomy in the anterior abdomen just to the left of midline. 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 No bowel obstruction. All CT scans at this facility are performed using low dose modulation techniqu es as appropriate to perform exam including the following: automated exposure c ontrol; use of iterative reconstruction technique; adjustment of the mA and/or kV according to patient size (this includes techniques or standardized protocol s for targeted exams where dose is matched to indication/reason for exam).
[2025-06-13 17:01] LABS: Hematocrit 35.2 % (37.0-47.0); Hemoglobin 11.7 g/dL (12.0-15.0); Immature Granulocyte Percent A 0.6 % (0-0.5); Lymphocytes Absolute Auto 1.53 K/mm3 (0.9-3.2); Mean Corpuscular HGB Conc 33.2 g/dl (32-36); Mean Corpuscular Hemoglobin 27.3 pg (26-34); Mean Corpuscular Volume 82.2 fl (80-100); Nucleated Red Blood Cells Absolute Auto 0.000 K/mm3 (0.0-0.012); Nucleated Red Blood Cells Perc 0.0 % (0.0-0.2); Platelet Count Result 256 k/mm3 (150-375); Red Blood Count 4.28 M/mm3 (4.2-5.4); White Blood Count 10.2 K/mm3 (4.5-10.0)
--- NOTE | 2025-06-13 17:18 | ED.ABDPAIN ---
HPI - Abdominal Pain General Chief Complaint: Abdominal Pain <Gabriella Cain APRN - Last Filed: 06/13/25 23:42> Stated Complaint: severe pain behind my stoma <Gabriella Cain APRN - Last Filed: 06/13/25 23:42> Time Seen by Provider: 06/13/25 17:02 <Gabriella Cain APRN - Last Filed: 06/13/25 23:42> History of Present Illness HPI narrative: Patient is a 59-year-old female who presents to the ER with left upper and lower quadrant abdominal pain. She reports the pain started approximately 4-5 days ago but worsened in the last 2 days. Patient reports she has been unable to eat anything due to the pain. She also endorses nausea. Patient denies any chest pain, shortness of breath, recent fevers, or constipation. She endorses a history of incomplete paraplegia, abdominal infections, suprapubic catheters, ileostomy, and high blood pressure. <Gabriella Cain APRN - Last Filed: 06/13/25 23:42> Related Data Home Medications: Home Medications ?Medication ?Instructions ?Recorded ?Confirmed ?Last Taken ?Type ropinirole 0.5 mg tablet 1 mg PO BID 12/13/24 04/05/25 01/30/25 20:00 History 1 mg losartan 100 mg tablet 100 mg PO HS 02/01/25 04/05/25 01/30/25 21:00 History 100 mg polyethylene glycol 3350 17 17 g PO DAILY PRN constipation 02/01/25 04/05/25 Unknown History gram/dose oral powder (Miralax) escitalopram oxalate 20 mg tablet 20 mg PO HS 03/20/25 04/05/25 Unknown History <Gabriella Cain OUTSOLE ROUNDER - Last Filed: 06/13/25 23:42> Allergies/Adverse Reactions: Allergies Allergy/AdvReac Type Severity Reaction Status Date / Time Penicillins Allergy Intermediate Hives Verified 06/13/25 15:44 Sulfa (Sulfonamide Allergy Intermediate Swelling Verified 06/13/25 15:44 Antibiotics) of Lip/Tongue/Throat vancomycin Allergy Intermediate Hives Verified 06/13/25 15:44 adhesive tape Allergy Mild Blister Verified 06/13/25 15:44 Latex, Natural Rubber Allergy Mild Itching Verified 06/13/25 15:44 <Gabriella Cain APRN - Last Filed: 06/13/25 23:42> Review of Systems Review of Systems: All systems reviewed & are unremarkable except as noted in HPI and below <Gabriella Cain APRN - Last Filed: 06/13/25 23:42> [facility] Past Medical History Medical History: Medical History Brain TIA multiple BMI 33.0-33.9,adult Insomnia Paroxysmal atrial fibrillation Gastroesophageal reflux disease Hyperlipidemia patient states previously but recently reported as controlled Post traumatic stress disorder Degenerative disc disease Incomplete paraplegia Sleep apnea History of MRSA infection Depression Anemia Fibromyalgia Scoliosis Arthritis Irritable bowel Hemorrhoids Asthma Anxiety Obesity (BMI 30-39.9) Stroke Hypertension Allergies <Gabriella Cain APRN - Last Filed: 06/13/25 23:42> Surgical History Surgical History: Surgical History S/P insertion of spinal cord stimulator History of tonsillectomy History of total cystectomy History of hernia repair History of cholecystectomy History of appendectomy History of cardiac catheterization History of ileal conduit History of back surgery <Gabriella Cain APRN - Last Filed: 06/13/25 23:42> Family History Family History: Family History Father Hypertension Cancer Mother Cancer Hypertension Anxiety Acute myocardial infarction <65yo Grandparent Cancer Sibling Hypertension A-fib Acute myocardial infarction <65yo Sibling Acute myocardial infarction <65yo <Gabriella Cain APRN - Last Filed: 06/13/25 23:42> Social History Social History: Social History (Updated 06/13/25 @ 22:28 by Belkis Machuca APRN) Social History: She is . She has 3 children. She is Disabled. Surrogate medical decision maker: Vicenta Mcnulty. Who is her [id number] Code status: Full code. Smoking status: Never smoker Second hand tobacco smoke exposure: Yes Alcohol intake: never Substance use: never Substance use type: does not use Lack of Transportation: No Lack of Food: Never True Current Housing: I Have Housing Concerned About Future Housing: No Difficulty Paying Gas/Electric Bills: No Difficulty Paying for Meds: No Currently Unemployed: No Education: High School Diploma/GED Difficulty w/ Childcare or Family Care: No Living arrangements: with family Occupation/Education: unemployed Gender identity (if verbalized by the patient): Female Spiritual care concerns: No <Gabriella Cain APRN - Last Filed: 06/13/25 23:42> Exam Narrative: GENERAL: Well appearing, well-nourished, non-toxic, in mild distress d/t pain. HEAD: Normocephalic, atraumatic. NECK: Supple. No adenopathy, no masses. RESPIRATORY: Airway patent, respirations nonlabored. Clear to auscultation bilaterally, no rales, rhonchi, wheezing. CARDIOVASCULAR: Regular rate and rhythm without murmurs, rubs, or gallops. Peripheral pulses 2+ and equal bilaterally. ABDOMINAL: Soft, LUQ and LLQ tender, nondistended, no hepatosplenomegaly. Normoactive BS. MUSCULOSKELETAL: Moves all extremities, minimal movement to bilateral lower extremities (baseline). Strength/ROM intact (baseline) without gross deformities. SKIN: Warm, dry, normal color. No rashes. NEURO: A&O X3. Speech clear. Cranial nerves II-XII intact. PSYCHIATRIC: Tearful <Gabriella Cain, OUTSOLE ROUNDER - Last Filed: 06/13/25 23:42> Course ADULT FAMILY HOME PROGRAM MANAGER/PA Physician Supervision This visit was performed by both a physician and an Advanced Practice Provider. I performed all aspects of the Medical Decision Making as documented. <Kadeem Hudson DO - Last Filed: 06/13/25 22:30> Vital Signs Vital signs: Vital Signs Temperature 37.2 C 06/13/25 15:46 Pulse Rate 93 06/13/25 15:46 Respiratory Rate 20 06/13/25 15:46 Blood Pressure 195/91 H 06/13/25 15:46 Pulse Oximetry 98 06/13/25 15:46 Oxygen Delivery Room Air 06/13/25 15:46 Temperature 37.2 C 06/13/25 17:49 Pulse Rate 92 06/13/25 22:47 Respiratory Rate 18 06/13/25 22:47 Blood Pressure 129/102 H 06/13/25 22:47 Pulse Oximetry 95 06/13/25 22:47 Oxygen Delivery Room Air 06/13/25 15:46 <Gabriella Cain APRN - Last Filed: 06/13/25 23:42> Vital Signs Temperature 37.2 C 06/13/25 15:46 Pulse Rate 93 06/13/25 15:46 Respiratory Rate 20 06/13/25 15:46 Blood Pressure 195/91 H 06/13/25 15:46 Pulse Oximetry 98 06/13/25 15:46 Oxygen Delivery Room Air 06/13/25 15:46 Temperature 37.2 C 06/13/25 17:49 Pulse Rate 92 06/13/25 22:47 Respiratory Rate 18 06/13/25 22:47 Blood Pressure 129/102 H 06/13/25 22:47 Pulse Oximetry 95 06/13/25 22:47 Oxygen Delivery Room Air 06/13/25 15:46 <Kadeem Hudson DO - Last Filed: 06/13/25 22:30> MDM MDM Narrative Medical decision making narrative: Patient is a 59-year-old female who presents to the ER with left upper and lower quadrant abdominal pain. She reports the pain started approximately 4-5 days ago but worsened in the last 2 days. Patient reports she has been unable to eat anything due to the pain. She also endorses nausea. Patient denies any chest pain, shortness of breath, recent fevers, or constipation. She endorses a history of incomplete paraplegia, abdominal infections, suprapubic catheters, ileostomy, and high blood pressure. Labs Ordered: CBC, CMP, CRP, lipase, UA, lactic acid, blood cultures Imaging Ordered: CT abdomen pelvis Medications Ordered: Toradol 30 mg IV, Dilaudid 0.5 mg IV, Dilaudid 1 mg IV x2, meropenem 1 g IV, 1 L normal saline IV bolus x2 Results: Pt's CT scan indicates The lung bases are clear. The liver parenchyma is unremarkable. No intrahepatic mass or ductal dilatation is evident. The patient has had a cholecystectomy. The pancreas and spleen are normal in appearance. The adrenal glands are symmetric in size. Kidneys enhance symmetrically. There is mild bilateral hydronephrosis with ileal conduit again noted. There is a urostomy in the left abdomen. 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 No cystic mass is evident. There is no solid mass. Bladder is surgically absent. There are no bowel obstruction. The bladder and rectum are normal. No free intraperitoneal fluid or air is evident. There is no significant retroperitoneal lymphadenopathy. The aorta, visceral vessels and renal arteries demonstrate normal caliber and patency. The lower thoracic and lumbar vertebrae are in normal alignment. Diagnosis: ileostomy with resistant UTI, bilateral hydronephrosis Consults: urology MDM: Results of imaging and lab work shared with patient. Patient verbalizes significant anxiety with the possibility of being discharged home due to her significant medical history and pain. It was advised patient be admitted to the hospital for IV antibiotics, along with further evaluation and treatment. Patient verbalized understanding and is in agreement with plan. <Gabriella Cain APRN - Last Filed: 06/13/25 23:42> Differential Diagnosis Differential Diagnosis: Urinary tract infection, kidney stone, fecal impaction, abdominal pain, AMADA <Gabriella Cain APRN - Last Filed: 06/13/25 23:42> Lab Data [facility] Lab Attestation statement: I personally reviewed the patient's lab results. <Gabriella Cain APRN - Last Filed: 06/13/25 23:42> Result diagrams: 06/13/25 16:54 06/13/25 16:54 <Gabriella Cain APRN - Last Filed: 06/13/25 23:42> Labs: Lab Results 06/13/25 06/13/25 Range/Units 16:54 19:49 WBC 10.2 H (4.5-10.0) K/mm3 RBC 4.28 (4.2-5.4) M/mm3 Hgb 11.7 L (12.0-15.0) g/dL Hct 35.2 L (37.0-47.0) % MCV 82.2 (80-100) fl MCH 27.3 (26-34) pg MCHC 33.2 (32-36) g/dl RDW 14.3 (11.5-14.5) % Plt Count 256 (150-375) k/mm3 MPV 9.4 (7.4-10.4) fl Immature Gran % (Auto) 0.6 H (0-0.5) % Neut % (Auto) 77.5 H (45.5-73.1) % Lymph % (Auto) 15.1 L (18.3-44.2) % [place] % (Auto) 5.6 (2.6-8.5) % Eos % (Auto) 0.7 (0-4.4) % Baso % (Auto) 0.5 (0.2-1.2) % Lymph # (Auto) 1.53 (0.9-3.2) K/mm3 [place] # (Auto) 0.6 (0.1-0.6) K/mm3 Eos # (Auto) 0.1 (0-0.3) K/mm3 Baso # (Auto) 0.1 (0.0-0.1) K/mm3 Abs Immat Gran (auto) 0.06 H (0.00-0.031) K/mm3 Absolute Neuts (auto) 7.9 H (1.3-6.7) K/mm3 Absolute Nucleated RBC 0.000 (0.0-0.012) K/mm3 Nucleated RBC % 0.0 (0.0-0.2) % Sodium 135 L (137-145) mmol/L Potassium 3.2 L (3.4-5.0) mmol/L Chloride 100 (98-107) mmol/L Carbon Dioxide 27 (22-30) mmol/L Anion Gap 8 (4-12) mmol/L BUN 12 (7-17) mg/dL Creatinine 0.72 (0.7-1.0) mg/dL Estim Creat Clear Calc 93 ml/min Estimated GFR > 60 (59 - ) Glucose 126 H (65-110) mg/dL Lactic Acid 1.0 (0.7-2.0) mmol/L Calcium 8.6 (8.4-10.2) mg/dL Total Bilirubin 1.0 (0.2-1.3) mg/dL AST 21 (14-36) U/L ALT 19 (6-35) U/L Alkaline Phosphatase 90 (38-126) U/L C-Reactive Protein 6.6 H (<1.0) mg/dL Total Protein 7.7 (6.3-8.2) g/dL Albumin 4.0 (3.5-5.1) g/dL Lipase 13 L (23-300) U/L Urine Color Yellow (Yellow) Urine Appearance Turbid H (Clear) Urine pH 6.5 (5.0-9.0) Ur Specific [place] 1.011 (1.001-1.035) Urine Protein 1+ H (Negative) mg/dL Urine Glucose (UA) Negative (Negative) mg/dL Urine Ketones Negative (Negative) mg/dL Ur Blood (Man) 2+ H (Negative) Urine Nitrate Negative (Negative) Urine Bilirubin Negative (Negative) Urine Urobilinogen 0.2 (<2.0) mg/dL Add Ur Microanalysis Reviewed Leukocyte Esterase Rfl 3+ H (Negative) ERICK/UL Urine RBC 11-20 H (0-2) /hpf Urine WBC >100 H (0-3) /hpf Ur Squamous Epith Cells None seen (Few) /hpf Urine Bacteria 4+ /hpf Urine Casts 3-5 <Gabriella Cain, OUTSOLE ROUNDER - Last Filed: 06/13/25 23:42> Lab Results 06/13/25 06/13/25 Range/Units 16:54 19:49 WBC 10.2 H (4.5-10.0) K/mm3 RBC 4.28 (4.2-5.4) M/mm3 Hgb 11.7 L (12.0-15.0) g/dL Hct 35.2 L (37.0-47.0) % MCV 82.2 (80-100) fl MCH 27.3 (26-34) pg MCHC 33.2 (32-36) g/dl RDW 14.3 (11.5-14.5) % Plt Count 256 (150-375) k/mm3 MPV 9.4 (7.4-10.4) fl Immature Gran % (Auto) 0.6 H (0-0.5) % Neut % (Auto) 77.5 H (45.5-73.1) % Lymph % (Auto) 15.1 L (18.3-44.2) % [place] % (Auto) 5.6 (2.6-8.5) % Eos % (Auto) 0.7 (0-4.4) % Baso % (Auto) 0.5 (0.2-1.2) % Lymph # (Auto) 1.53 (0.9-3.2) K/mm3 [place] # (Auto) 0.6 (0.1-0.6) K/mm3 Eos # (Auto) 0.1 (0-0.3) K/mm3 Baso # (Auto) 0.1 (0.0-0.1) K/mm3 Abs Immat Gran (auto) 0.06 H (0.00-0.031) K/mm3 Absolute Neuts (auto) 7.9 H (1.3-6.7) K/mm3 Absolute Nucleated RBC 0.000 (0.0-0.012) K/mm3 Nucleated RBC % 0.0 (0.0-0.2) % Sodium 135 L (137-145) mmol/L Potassium 3.2 L (3.4-5.0) mmol/L Chloride 100 (98-107) mmol/L Carbon Dioxide 27 (22-30) mmol/L Anion Gap 8 (4-12) mmol/L BUN 12 (7-17) mg/dL Creatinine 0.72 (0.7-1.0) mg/dL Estim Creat Clear Calc 93 ml/min Estimated GFR > 60 (59 - ) Glucose 126 H (65-110) mg/dL Lactic Acid 1.0 (0.7-2.0) mmol/L Calcium 8.6 (8.4-10.2) mg/dL Total Bilirubin 1.0 (0.2-1.3) mg/dL AST 21 (14-36) U/L ALT 19 (6-35) U/L Alkaline Phosphatase 90 (38-126) U/L C-Reactive Protein 6.6 H (<1.0) mg/dL Total Protein 7.7 (6.3-8.2) g/dL Albumin 4.0 (3.5-5.1) g/dL Lipase 13 L (23-300) U/L Urine Color Yellow (Yellow) Urine Appearance Turbid H (Clear) Urine pH 6.5 (5.0-9.0) Ur Specific [place] 1.011 (1.001-1.035) Urine Protein 1+ H (Negative) mg/dL Urine Glucose (UA) Negative (Negative) mg/dL Urine Ketones Negative (Negative) mg/dL Ur Blood (Man) 2+ H (Negative) Urine Nitrate Negative (Negative) Urine Bilirubin Negative (Negative) Urine Urobilinogen 0.2 (<2.0) mg/dL Add Ur Microanalysis Reviewed Leukocyte Esterase Rfl 3+ H (Negative) ERICK/UL Urine RBC 11-20 H (0-2) /hpf Urine WBC >100 H (0-3) /hpf Ur Squamous Epith Cells None seen (Few) /hpf Urine Bacteria 4+ /hpf Urine Casts 3-5 <Kadeem Hudson DO - Last Filed: 06/13/25 22:30> Imaging Data Attestation: I personally reviewed and interpreted this imaging study as follows: <Gabriella Cain OUTSOLE ROUNDER - Last Filed: 06/13/25 23:42> Radiologist's impression: ITS Impressions Abdomen/Pelvis CT 06/13/25 18:24 IMPRESSION: Bilateral hydronephrosis, right greater than left. There is ileal conduit noted with urostomy in the anterior abdomen just to the left of midline. 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 No bowel obstruction. All CT scans at this facility are performed using low dose modulation techniques as appropriate to perform exam including the following: automated exposure control; use of iterative reconstruction technique; adjustment of the mA and/or kV according to patient size (this includes techniques or standardized protocols for targeted exams where dose is matched to indication/reason for exam). <Gabriella Cain OUTSOLE ROUNDER - Last Filed: 06/13/25 23:42> ITS Impressions Abdomen/Pelvis CT 06/13/25 18:24 IMPRESSION: Bilateral hydronephrosis, right greater than left. There is ileal conduit noted with urostomy in the anterior abdomen just to the left of midline. 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 No bowel obstruction. All CT scans at this facility are performed using low dose modulation techniques as appropriate to perform exam including the following: automated exposure control; use of iterative reconstruction technique; adjustment of the mA and/or kV according to patient size (this includes techniques or standardized protocols for targeted exams where dose is matched to indication/reason for exam). <Kadeem Hudson DO - Last Filed: 06/13/25 22:30> Discharge Plan Discharge Clinical Impression: Urinary tract infection, Bilateral hydronephrosis, Microbial resistance to multiple antibiotics <Gabriella Cain APRN - Last Filed: 06/13/25 23:42> Patient Disposition: Still a Patient <Gabriella Cain APRN - Last Filed: 06/13/25 23:42> Condition: Stable <Gabriella Cain APRN - Last Filed: 06/13/25 23:42>
[2025-06-13 17:21] LABS: Alanine Aminotransferase 19 U/L (6-35); Albumin Level 4.0 g/dL (3.5-5.1); Alkaline Phosphatase 90 U/L (38-126); Anion Gap 8 mmol/L (4-12); Aspartate Amino Transferase 21 U/L (14-36); Bilirubin,Total 1.0 mg/dL (0.2-1.3); Blood Urea Nitrogen 12 mg/dL (7-17); Calcium 8.6 mg/dL (8.4-10.2); Carbon Dioxide 27 mmol/L (22-30); Chloride 100 mmol/L (98-107); Estimated CRCL calculation 93 ml/min; Estimated Glomerular Filt Rate > 60; Glucose 126 mg/dL (65-110); Lipase 13 U/L (23-300); Potassium 3.2 mmol/L (3.4-5.0); Sodium 135 mmol/L (137-145); Total Protein 7.7 g/dL (6.3-8.2)
[2025-06-13 17:22] LABS: Add Urine Microscopic? YES; Appearance Urine Turbid (Clear); Glucose Urine UA Negative (Negative); Leukocyte Esterase Ur 3+ LEU/UL (Negative); Need Manual Microscopic Reviewed; Nitrate Urine Negative (Negative); Specific Grav Ur 1.011 (1.001-1.035)
[2025-06-13] MEDS: SODIUM CHLORIDE 0.9% IV 1,000 ML 999 ML IV CONT ×2 (17:31→20:08)
[2025-06-13] MEDS: HYDROmorphone HCL INJ (*CRX) 1 MG/ML SYR 0.5 MG IV PUSH (17:34)
[2025-06-13] MEDS: ONDANSETRON INJ 4 MG/2 ML VIAL (17:51)
--- OUTSIDE RECORDS SUMMARY | 2025-06-13 17:55 | XMS_ITS | Clinical Summary ---
Author Organization [facility] Address [address] [place] [address] Phone Care Team Providers Care Cigarette Stamper Name Role Phone Unavailable Primary Care Provider Unavailabl e Social History Tobacco Use Types Packs/Day Years Used Date Smoking Tobacco: Never Assessed Comments Unknown Sex and Gender Information Value Date Recorded Sex Assigned at Not on file Legal Sex Female 3:52 AM COSMETIC COUNSELOR Gender Identity Not on file Sexual [...]
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
--- OUTSIDE RECORDS SUMMARY | 2025-06-13 17:55 | XMS_ITS | Encounter Summary ---
Author Organization [facility] Address [address] [place] [address] Care Team Providers Care Hotbed Lever Operator Name Role Phone Fiordaliza Snell MD Primary Care Provider Encounter Details Date Type Department Care Team (Late st Contact Info) Description 10/10/2003 Emergency [facility] Franki Grimes, [address] [place] [address] Er, Authorized P NO ADDRESS ON FILE LUMBAGO (Primary Dx) Social History Tobacco Use Types Packs/Day Years Used Date Smoking Tobacco: Never Assessed Comments Unknown Sex and Gender Information Value Date Recorded Sex Assigned at Not on file Legal Sex Female 2:43 AM PILL COATER Gender Identity Not on file Sexual Orientation Not on file documented as of this encounter Plan of Treatment Not on file documented as of this encounter Visit Diagnoses Diagnosis Lumbago- Primary documented in this encounter Additional Health Concerns Infection Onset Date Last Indicated Resolved Time R/O COVID-19 07/02/2020 07/02/2020 07/02/2020 8:53 PM PILL COATER MRSA Comment:Resolved per Type and Duration of Precautions Recommended for Selected Infections and Conditions document 2023 update 07/02/2020 07/02/2020 03/16/20 10:58 AM CDT R/O COVID-19 07/10/2020 07/10/2020 07/10/2020 5:01 PM PILL COATER documented as of this encounter Care Teams Hotbed Lever Operator Relationship Specialty Start Date End Date Fiordaliza Snell MD PCP - General Family Practice 09/09/22 documented as of this encounter
--- OUTSIDE RECORDS SUMMARY | 2025-06-13 17:55 | XMS_ITS | Clinical Summary ---
Author Organization [facility] [employer] Address [address] [facility] [place] [address] Care Team Providers Care Sap Portal Developer Name Role Phone Lidia Barajas MD Unavailable Shilpa Gandhi MD Unavailable [phone] Iron Galindo PA-C Primary Care Provide r Cresencio Ghosh MD Unavailable Cresencio Ghosh MD Unavailable Leanna Howe MA Unavailable Source Comments [facility],non-owned Affiliates and Associated Physician Practices is amultiple site organization consisting of ambulatory clinics and hospital sitesin [place], [place], [place] and [place]. This disclosure is being madepursuant to the [...] (spasms) 90 tablet 2 3 Active Nystop [id number] UNIT/GM powder Apply to affected area 2 [...] tabletIndicatio ns:Restless legs syndrome (RLS) TAKE 1 TABLET BY MOUTH DIRECTED AT SUPPER AND 1 TABLET AT BEDTIME FOR RESTLESS LEG SYNDROME 180 tablet 1 5 Active zolpidem (Ambien) 5 MG tablet TAKE 1 TABLET BY MOUTH NIGHTLY NEEDED FOR INSOMNIA 30 tablet 5 Active Active Problems Problem Noted Date [...] Encounters Date Type Department Care Team Description 06/09/2025 Patient Outreach [facility] - Care Coordination [address] [place] [address] Leanna Howe MA Outreach Preventive Care 04/21/2025 Refill [facility] Pulmonology [address] [place] [address] Cresencio Ghosh MD Refill Request 04/18/2025 Telephone [facility] Pulmonology [address] [place] [address] Cresencio Ghosh MD Refill Request 04/18/2025 Refill [facility] Pulmonology [address] [place] [address] Cresencio Ghosh MD Refill Request 04/07/2025 Patient Outreach [facility] - Care Coordination [address] [place] [address] Leanna Howe MA Outreach Preventive Care 04/04/2025 Patient Outreach [facility] - Care Coordination [address] [place] [address] Leanna Howe MA Outreach Preventive Care 03/23/2025 Telephone [facility] Pulmonology [address] [place] [address] Cresencio Ghosh MD Appointment from Last 3 Months Immunizations Immunization Administration Dates Next Due [employer] primary monoval ent 12+ yr 0.3mL Purple cap 07/01/2021 FLU VACCINE TRI IIV3 SPLIT I M (FLUVIRIN) 04/07/2014 FLU VACCINE TRI IIV3 SPLIT P F IM (FLUVIRIN) 04/23/2024 INFLUENZA VACCINE 05/15/2022,05/06/2018,04/30/20 17 INFLUENZA VACCINE, CELL CULT URE, TRIV. (FLUCELVAX TRIVALENT; 6MO+), 0.5 ML (CCIIV3) 04/28/2025 INFLUENZA VACCINE, QUADR. (F LUZONE; FLULAVAL; FLUARIX; AFLURIA QUADRIVALENT; 6MO+), 0.5 ML (IIV4) 07/01/2021,03/22/2020,03/26/2019,2017 INFLUENZA VACCINE, TRIV. (FL UZONE; FLULAVAL; FLUARIX; AFLURIA TRIVALENT; 6MO+), 0.5 ML (IIV3) 04/28/2017,08/23/2016 PNEUMOCOCCAL PCV21 04/28/2025 PNEUMOCOCCAL PPV VACCINE 09/05/2020 Family History Medical [...] care, and heating? Not very hard 04/02/2023 [facility] Occupat ional Health - Occupational Stress [...] a care home (including now)? No 04/02/2023 Comments No Sex and Gender Information Value Date Recorded Sex Assigned at Not on file Legal Sex Female 6:02 AM ALUMINUM BOAT ASSEMBLY SUPERVISOR Gender Identity Not on file Sexual Orientation Not on file Occupation Industry Job Start Date Job End Date Disabled Not on file Not on file Not on file Last Filed Vital Signs Vital Sign Reading Time Taken Comments Blood Pressure 157/91 05/07/2023 9:23 AM ALUMINUM BOAT ASSEMBLY SUPERVISOR Pulse 86 05/07/2023 9:23 AM ALUMINUM BOAT ASSEMBLY SUPERVISOR Temperature 36.3 C (97.3 F) 05/07/2023 9:23 AM ALUMINUM BOAT ASSEMBLY SUPERVISOR Respiratory Rate 18 04/02/2023 3:00 PM CDT Oxygen Saturation 95% 05/07/2023 9:23 AM ALUMINUM BOAT ASSEMBLY SUPERVISOR Inhaled Oxygen Concentration 97% 02/21/2021 1 0:15 [...] VACCINE ( season) 2025 07/01/2021, 12/13/2020, 11/20/2020 SCREENING FOR DIABETES 04/02/2026 , 04/01/2023, 03/31/2023, Additional history exists COLONOSCOPY - COLON CA SCREENING 11/28/2029 11/29/2019, 11/29/2019, 08/03/2019, Additional history exists INFLUENZA VACCINE Completed 04/28/2025, , 05/15/2022, Additional history exists PNEUMOCOCCAL VACCINE 50+ Completed 04/28/2025, 0302/2021 HIB VACCINE Aged Out No longer eligi [...] < 140/90 Blood Pressure 157/91(2022 9:23 AM ALUMINUM BOAT ASSEMBLY SUPERVISOR) No Sierra Steiner Yearly PCP visit Lifestyle No White, Ava A Have labs drawn Lifestyle No White, Ava A Take recommended medication(s) Lifestyle No White, Ava A Use safety retraint in car Lifestyle No White, Ava A Complete Health Maintenance Screenings Lifestyle No White, Ava A Medical Devices Implanted Type Area Elevator Mechanic Apprentice Device Identifier Shelf Expiration Date Model / Serial / Lot Nevro Neurostimulator Senza [id number] (Implanted 2016) Floseal Hemostatic Matrix Implanted:Qty: 1 on 04/02/2019 by Maicol Mcneil DO at [facility] N/A: Spine [employer] 08/10/2020 [id number] / / [id number] Graft Tissue Drgn + Bvn Clgn Mtrx 1x1in Implanted:Qty: 1 on 04/02/2019 by Maicol Mcneil DO at [facility] N/A: Spine [employer] 04/29/2021 [id number] / / [id number] Seal Tisseel Prima 1 Prefil Frz 4ml - [id number] Implanted:Qty: 1 on 04/02/2019 by Maicol Mcneil DO at [facility] N/A: Spine [employer] 08/27/2020 [id number] / [id number] / [id number] Impl Inj 1ml Coaptite Syr Bulk Agnt Implanted:Qty: 2 on 04/11/2020 by Dave Aparicio MD at [facility] N/A: Bladder [employer] 10/25/2022 [id number] / / [id number] Impl Inj 1ml Coaptite Syr Bulk Agnt Implanted:Qty: 2 on 02/05/2022 by Dave Aparicio MD at [facility] Bladder [employer] 10/16/2024 [id number] / / [id number] Stent Uret 7fr 80cm Str Cls Tip Llok Implanted:Qty: 1 on 09/03/2022 by Nel Cerna DO at [facility] Ureter [employer] 12/23/2025 [id number] / / [id number] Description:bilateral ureter s Procedures Procedure Name Priority [...] 7 - 26 mg/dL 04/02/2023 3:07 AM [facility] Creatinine 0.69 0.56 - 0.96 mg/dL 04/02/2023 3:07 AM [facility] Sodium 133(L) 136 - 145 mmol/L 04/02/2023 3:07 AM [facility] Potassium 3.9 3.5 - 4.5 mmol/L 04/02/2023 3:07 AM [facility] Chloride 102 98 - 107 mmol/L 04/02/2023 3:07 AM [facility] CO2 26 22 - 29 mmol/L 04/02/2023 3:07 AM [facility] Glucose 122(H) 70 - 115 mg/dL 04/02/2023 3:07 AM [facility] Calcium 8.3(L) 8.4 - 10.2 mg/dL 04/02/2023 3:07 AM [facility] Anion Gap 5(L) 6 - 16 04/02/2023 3:07 AM [facility] BUN/Creatinine Ratio 23 7 - 23 04/02/2023 3:07 AM [facility] Osmolality Calculated 278 275 - 295 mOsm/kg 04/02/2023 3:07 AM CDT [facility] eGFR by CKD-EPI >90 >=90 mL/min/1.7 3 m2 04/02/2023 3:07 AM CDT [facility] Blood BLOOD SPECIMEN / Unknown Lab Venipuncture / Unknown 04/02/2023 2:31 AM CDT 04/02/2023 2:39 AM CDT us Missy Sutherland MD LAB - CHEMISTRY ORDERABLES Final Result [facility] [address] [place] [address], [facility] [phone] * ENDOSCOPY, COLON, SCREENING (11/29/2019) us Provider [...] participate in the care of your patient. [facility] utilizes [facility] as a reminder system to notify patients of their next recommended mammogram. Narrative 09/23/2017 9:22 AM CDT EXAMINATION: Digital screening mammogram on 09/18/2017. Low-dose full-field digital breast tomosynthesis examination was performed with synthetic 2D images and 3D acquisitions. Computer assisted detection was utilized. PRIOR: Mammogram from [facility] on 11/13/2004. BREAST PARENCHYMAL DENSITY: The breasts are almost entirely fatty. RISK ASSESSMENT CALCULATION: Based on the information provided by your patient, her lifetime risk of breast cancer is average (<15%). Additional quantitative risk model data and patient history details have been scanned as a document/letter in [facility] electronic medical record (media tab). 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 [address] [place], [place] [address] PCP - Attributed-[facility] [place] ST[place] P4P 05/02/25 Lidia Barajas MD [facility] [address] Anesthesiology-Pain Management 06/03/19 Shilpa Gandhi MD [address] [facility] [address] [place] [address] Oncology 06/03/19 Cresencio Ghosh MD [address] [facility] [address] [place] [address] Internal Medicine Sleep Medicine 09/29/24 Leanna Howe MA Care Coordination Specialist Care Management 06/09/25
--- OUTSIDE RECORDS SUMMARY | 2025-06-13 17:55 | XMS_ITS | Encounter Summary ---
Author Organization [facility] Address [address] [facility] [place] [address] Care Team Providers Care Air Bag Curer Name Role Phone Shilpa Frazier DO Primary Care Provider [phone] Lidia Barajas MD Unavailable Shilpa Gandhi MD Unavailable [phone] Massiel Melara MD Primary Care Provider [phone] Shilpa Frazier DO Primary Care Provider [phone] Iron Galindo PA-C Primary Care Provide r Cresencio Ghosh MD Unavailable Cresencio Ghosh MD Unavailable Cresencio Ghosh MD Unavailable Leanna Howe MA Unavailable [phone] Cresencio Ghosh MD Unavailable [phone] Leanna Howe MA Unavailable Encounter Details Date Type Department Care Team (Late st Contact Info) Description 01/23/2015 Therapy Visit EXTERNAL NON-[facility] DEPT Sunny Reynoso MD [address] [address] Social History Tobacco Use Types Packs/Day Years Used Date Smoking Tobacco: Never Alcohol Use Standard Drinks/Week Comments Yes 0 (1 standard drink = 0.6 oz pur e alcohol) 1-2 year Comments Unknown Sex and Gender Information Value Date Recorded Sex Assigned at Not on file Legal Sex Female 6:02 AM DIRECTOR OF INTELLIGENCE Gender Identity Not on file Sexual Orientation [...] NO NEED FOR ISOLATION AT THIS TIME; PASTE UP WORKER INF PREV [id number] 10/07/2019 10/07/2019 09/05/19 8:37 AM DIRECTOR OF INTELLIGENCE MRSA 10/07/2019 10/07/2019 01/29/2020 8:33 AM CDT MRSA 01/28/2020 01/28/2020 03/20/2020 7:45 AM CDT COVID-19 Under Investigation 04/06/2020 04/08/2020 04/09/2020 5:20 AM CDT MRSA 04/11/2020 04/11/2020 12/25/2020 9:00 AM CDT COVID-19 Under Investigation 08/07/2020 08/07/2020 08/08/2020 3:45 PM DIRECTOR OF INTELLIGENCE COVID-19 Under Investigation 08/11/2020 08/11/2020 08/12/2020 4:08 AM DIRECTOR OF INTELLIGENCE MRSA 05/13/2021 02/05/2022 09/04/2022 8:37 AM DIRECTOR OF INTELLIGENCE MRSA Hx 09/04/2022 09/04/2022 MDRO Comment:04/01/23 MDRO resolved, ES 02/23/2023 02/23/20232022 7:16 AM CDT MDRO Hx 04/01/2023 04/01/2023 MDRO 05/08/2023 05/08/2023 documented as of this encounter Care Teams Air Bag Curer Relationship Specialty Start Date End Date Shilpa Frazier DO [address] [place] [address] PCP - General Family Medicine 08/06/17 07/31/20 Massiel Melara MD [address] [place] [address] PCP - General Family Medicine 08/01/20 10/01/20 Shilpa Frazier DO [address] [place] [address] PCP - General Family Medicine 10/02/20 10/03/20 Iron Galindo PA-C [address] [facility] [address] [place], [place] [id number] PCP - General Physician Pipe Fitter Ammonia 02/12/23 Cresencio Ghosh MD [address] [place] [address] PCP - Attributed-[facility] P4P 12/29/23 09/14/24 Cresencio Ghosh MD [address] [place] [address] PCP - Attributed-[facility] [address] P4P 10/28/24 04/16/25 Cresencio Ghosh MD [address] [place] [address] PCP - Attributed-[facility] P4P 05/02/25 Lidia Barajas [facility] [address] [facility] [address] Anesthesiology-Pain Management 06/03/19 Shilpa Gandhi MD [address] [place] [address] Oncology 06/03/19 Cresencio Ghosh MD [address] [place] [address] Internal Medicine Sleep Medicine 09/29/24 Leanna Howe MA Care Coordination Specialist Care Management 04/04/25 04/07/25 Leanna Howe MA Care Coordination Specialist Care Management 06/09/25 documented as of this encounter
--- OUTSIDE RECORDS SUMMARY | 2025-06-13 17:55 | XMS_ITS | Encounter Summary ---
Author Organization [facility] Address [address] [place] [address] Care Team Providers Care Hide Grader Name Role Phone Fiordaliza Snell MD Primary Care Provider Encounter Details Date Type Department Care Team (Latest Contact Info) Description 04/01/2003 Inpatient Historical HIS PATIENT IN A BED GarciaAnjali joseph MD NO ADDRESS ON FILE CHR SALPINGO-OOPHORITIS (Primary Dx) Social History Tobacco Use Types Packs/Day Years Used Date Smoking Tobacco: Never Assessed Comments Unknown Sex and Gender Information Value Date Recorded Sex Assigned at Not on file Legal Sex Female 2:43 AM RN PRIVATE DUTY Gender Identity Not on file Sexual Orientation Not on file documented as of this encounter Plan of Treatment Not on file documented as of this encounter Visit Diagnoses Diagnosis Chronic salpingitis and oophoritis- Primary documented in this encounter Additional Health Concerns Infection Onset Date Last Indicated Resolved Time R/O COVID-19 07/02/2020 07/02/2020 07/02/2020 8:53 PM RN PRIVATE DUTY MRSA Comment:Resolved per Type and Duration of Precautions Recommended for Selected Infections and Conditions document 2023 update 07/02/2020 07/02/2020 03/16/20 24 10:58 AM CDT R/O COVID-19 07/10/2020 07/10/2020 07/10/2020 5:01 PM RN PRIVATE DUTY documented as of this encounter Care Teams Hide Grader Relationship Specialty Start Date End Date Fiordaliza Snell MD PCP - General Family Practice 09/09/22 documented as of this encounter
--- OUTSIDE RECORDS SUMMARY | 2025-06-13 17:55 | XMS_ITS | Encounter Summary ---
Author Organization [facility] Address [address] [place] [address] Care Team Providers Care Gas Appliance Adjuster Name Role Phone Fiordaliza Snell MD Primary Care Provider Encounter Details Date Type Department Care Team (Latest Contact Info) Description 11/13/2004 Outpatient Historical HIS [facility] Gacria, Anjali Gupta MD NO ADDRESS ON FILE LUMP OR MASS IN BREAST (Primary Dx) Social History Tobacco Use Types Packs/Day Years Used Date Smoking Tobacco: Never Assessed Comments Unknown Sex and Gender Information Value Date Recorded Sex Assigned at Not on file Legal Sex Female 2:43 AM GRAPE PRUNER Gender Identity Not on file Sexual Orientation Not on file documented as of this encounter Plan of Treatment Not on file documented as of this encounter Visit Diagnoses Diagnosis Lump or mass in breast- Primary documented in this encounter Additional Health Concerns Infection Onset Date Last Indicated Resolved Time R/O COVID-19 07/02/2020 07/02/2020 07/02/2020 8:53 PM GRAPE PRUNER MRSA Comment:Resolved per Type and Duration of Precautions Recommended for Selected Infections and Conditions document 2023 update 07/02/2020 07/02/2020 03/16/20 10:58 AM CDT R/O COVID-19 07/10/2020 07/10/2020 07/10/2020 5:01 PM GRAPE PRUNER documented as of this encounter Care Teams Gas Appliance Adjuster Relationship Specialty Start Date End Date Fiordaliza Snell MD PCP - General Family Practice 09/09/22 documented as of this encounter
--- OUTSIDE RECORDS SUMMARY | 2025-06-13 17:55 | XMS_ITS | Clinical Summary ---
Author Organization [facility] Address [address] [place] [address] Care Team Providers Care Benefits Director Name Role Phone Unavailable Primary Care [...] Comments Blood Pressure 152/77 05/21/2019 8:00 AM VISUAL MERCHANDISING ASSISTANT Pulse 75 05/21/2019 8:00 AM VISUAL MERCHANDISING ASSISTANT Temperature 36.3 C (97.3 F) 05/21/2019 8:00 AM VISUAL MERCHANDISING ASSISTANT Respiratory Rate 18 05/21/2019 8:00 AM VISUAL MERCHANDISING ASSISTANT Oxygen Saturation 98% 05/21/2019 8:00 AM VISUAL MERCHANDISING ASSISTANT Inhaled Oxygen Concentration - - Weight 108.9 kg (240 lb 1.6 oz) 05/09/2019 6:52 AM VISUAL MERCHANDISING ASSISTANT Height 172.7 cm (5' 8) 04/18/2019 12:2 [...] this topic Meningococcal Vaccine Aged Out No ofuzia sailaja eligible based on patient's age to [...]
--- OUTSIDE RECORDS SUMMARY | 2025-06-13 17:55 | XMS_ITS | Encounter Summary ---
Author Organization [facility] Healthcare Address [address] [place] [address] Care Team Providers Care Grinding Mill Operator Name Role Phone Unknown, Notinfile Primary Care Provider Unavail able Shilpa Frazier DO Primary Care Provider Lidia Barajas MD Unavailable Ab Melara MD Primary Care Provid er Encounter Details Date Type Department Care Team (Late st Contact Info) Description 04/07/2018 Telephone [facility] [address] [facility] [address] [place] [address] Kate Johnson, RT Social History Tobacco Use Types Packs/Day Years Used Date Smoking Tobacco: Never Smokeless Tobacco: Never Alcohol Use Standard Drinks/Week Comments No 0 (1 standard drink = 0.6 oz pur e alcohol) Comments No Sex and Gender Information Value Date Recorded Sex Assigned at Not on file Legal Sex Female 11:49 PM ENTREPRENEUR Gender Identity Not on file Sexual Orientation [...] DT MRSA 12/27/2021 03/06/2022 09/02/2022 3:05 AM ENTREPRENEUR documented as of this encounter Care Teams Grinding Mill Operator Relationship Specialty Start Date End Date Unknown, Notinfile PCP - General 08/28/17 06/11/18 Shilpa Frazier DO PCP - General 06/12/18 07/15/21 Ab Melara MD [address] [address] PCP - General Family Medicine 07/16/21 Lidia Barajas MD Anesthesiologist Anesthesiology 01/13/20 documented as of this encounter
--- OUTSIDE RECORDS SUMMARY | 2025-06-13 17:55 | XMS_ITS | Encounter Summary ---
Author Organization [facility] Address [address] [place] [address] Care Team Providers Care House Detective Name Role Phone Fiordaliza Snell MD Primary [...] file Legal Sex Female 2:43 AM APPLICATION PACKAGING SPECIALIST Gender Identity Not on file Sexual [...] fL INTERFACE SYSTEM 10/14/2004 6:07 AM CDT [employer] HEMATOLOGY ORDERABLES Final Resu lt Performing Organization Address [facility] Phone Number INTERFACE SYSTEM Refer to [...] mmol/L INTERFACE SYSTEM 10/14/2004 6:07 AM CDT [employer] CHEMISTRY ORDERABLES Final Resul t Performing Organization Address [facility] Phone Number INTERFACE SYSTEM Refer to clinic/hospital department * (ABNORMAL) AMYLASE (10/13/2004 9:56 AM CDT) AMYLASE 24(L) 28 - 100 U/L INTERFACE SYSTEM 10/13/2004 9:56 AM CDT Russell Marie CHEMISTRY ORDERABLES Final Resul t Performing Organization Address [facility] de Phone Number INTERFACE SYSTEM Refer to clinic/hospital department * LIPASE (10/13/2004 9:56 AM CDT) LIPASE 20 13 - 60 U/L INTERFAC E SYSTEM 10/13/2004 9:56 AM CDT Russell Marie CHEMISTRY ORDERABLES Final Resul t Performing Organization Address [facility] Phone Number INTERFACE SYSTEM Refer to [...] Resu lt Performing Organization Address [facility] de Phone Number INTERFACE SYSTEM Refer [...] SYSTEM 10/13/2004 5:00 AM CDT us Russell Salazar HEMATOLOGY ORDERABLES Final Resu lt Performing Organization Address [facility] Phone Number INTERFACE SYSTEM Refer to clinic/hospital department * (ABNORMAL) C-REACTIVE PROTEIN (10/13/2004 5:00 AM CDT) CRP 1.3(H) 0.0 - 0.8 mg/dL INTERFACE SYSTEM 10/13/2004 5:00 AM CDT us Russell Salazar CHEMISTRY ORDERABLES Final Resul t Performing Organization Address [facility] Phone Number INTERFACE SYSTEM Refer to [...] URINE ORDERABLES Final Result Performing Organization Address [facility] Phone Number INTERFACE SYSTEM Refer to [...] Resu lt Performing Organization Address [facility] Co de Phone Number INTERFACE SYSTEM Refer to clinic/hospital department * (ABNORMAL) C-REACTIVE PROTEIN (10/12/2004 9:17 PM CDT) CRP 1.4(H) 0.0 - 0.8 mg/dL INTERFACE SYSTEM 10/12/2004 9:[address] MD CHEMISTRY ORDERABLES Final Resul t INTERFACE SYSTEM Refer to clinic/hospital department * LIPASE (10/12/2004 9:17 PM CDT) LIPASE 41 13 - 60 U/L INTERFAC E SYSTEM 10/12/2004 9:[address] MD CHEMISTRY ORDERABLES Final Resul t Performing Organization Address [facility] Phone Number INTERFACE SYSTEM Refer to clinic/hospital department * AMYLASE (10/12/2004 9:17 PM CDT) AMYLASE 39 28 - 100 U/L INTERFACE SYSTEM Comment:Previous specimen us ed; approved by floor. 10/12/2004 9:[address] PM [address] us Ida Lane MD CHEMISTRY ORDERABLES Final Resul t Performing Organization Address [facility] Phone Number INTERFACE SYSTEM Refer to [...] Resu lt Performing Organization Address City/[facility]/ZIP Co de Phone Number INTERFACE SYSTEM Refer [...] Resu lt Performing Organization Address [facility] Co de Phone Number INTERFACE SYSTEM [...] Resul t Performing Organization Address [facility] Co de Phone Number INTERFACE SYSTEM Refer to clinic/hospital department documented in this encounter Visit Diagnoses Diagnosis Abdominal pain, right lower quadrant- Primary documented in this encounter Additional Health Concerns Infection Onset Date Last Indicated Resolved Time R/O COVID-19 07/02/2020 07/02/2020 07/02/2020 8:53 PM APPLICATION PACKAGING SPECIALIST MRSA Comment:Resolved per Type and Duration of Precautions Recommended for Selected Infections and Conditions document 2023 update 07/02/2020 07/02/2020 03/16/20 10:58 AM CDT R/O COVID-19 07/10/2020 07/10/2020 07/10/2020 5:01 PM APPLICATION PACKAGING SPECIALIST documented as of this encounter Care Teams House Detective Relationship Specialty Start Date End Date Fiordaliza Snell MD PCP - General Family Practice 09/09/22 documented as of this encounter
--- OUTSIDE RECORDS SUMMARY | 2025-06-13 17:55 | XMS_ITS | Encounter Summary ---
Author Organization [facility] Address [address] [place] [address] Care Team Providers Care Executive Recruiter Name Role Phone Fiordaliza Snell MD Primary [...] file Legal Sex Female 2:43 AM FOOD MIXER ASSEMBLER Gender Identity Not on file Sexual Orientation Not on file documented as of this encounter Plan of Treatment Not on file documented as of this encounter Visit Diagnoses Diagnosis Other and unspecified ovarian cyst- Primary documented in this encounter Additional Health Concerns Infection Onset Date Last Indicated Resolved Time R/O COVID-19 07/02/2020 07/02/2020 07/02/2020 8:53 PM FOOD MIXER ASSEMBLER MRSA Comment:Resolved per Type and Duration of Precautions Recommended for Selected Infections and Conditions document 2023 update 07/02/2020 07/02/2020 03/16/20 24 10:58 AM CDT R/O COVID-19 07/10/2020 07/10/2020 07/10/2020 5:01 PM FOOD MIXER ASSEMBLER documented as of this encounter Care Teams Executive Recruiter Relationship Specialty Start Date End Date Fiordaliza Snell MD PCP - General Family Practice 09/09/22 documented as of this encounter
--- OUTSIDE RECORDS SUMMARY | 2025-06-13 17:55 | XMS_ITS | Encounter Summary ---
Author Organization [facility] Address [address] [place] [address] Care Team Providers Care Broadcast News Producer Name Role Phone Fiordaliza Snell MD Primary Care Provider Encounter Details Date Type Department Care Team (Late st Contact Info) Description 04/18/2003 Emergency [facility] Otilia Rose MD [address] [place] [address] Er, Authorized P NO ADDRESS ON FILE ABDOMINAL PAIN RLQ (Primary Dx) Social History Tobacco Use Types Packs/Day Years Used Date Smoking Tobacco: Never Assessed Comments Unknown Sex and Gender Information Value Date Recorded Sex Assigned at Not on file Legal Sex Female 2:43 AM BUSINESS SOLUTION ANALYST Gender Identity Not on file Sexual Orientation Not on file documented as of this encounter Plan of Treatment Not on file documented as of this encounter Visit Diagnoses Diagnosis Abdominal pain, right lower quadrant- Primary documented in this encounter Additional Health Concerns Infection Onset Date Last Indicated Resolved Time R/O COVID-19 07/02/2020 07/02/2020 07/02/2020 8:53 PM BUSINESS SOLUTION ANALYST MRSA Comment:Resolved per Type and Duration of Precautions Recommended for Selected Infections and Conditions document 2023 update 07/02/2020 07/02/2020 03/16/20 10:58 AM CDT R/O COVID-19 07/10/2020 07/10/2020 07/10/2020 5:01 PM BUSINESS SOLUTION ANALYST documented as of this encounter Care Teams Broadcast News Producer Relationship Specialty Start Date End Date Fiordaliza Snell MD PCP - General Family Practice 09/09/22 documented as of this encounter
--- OUTSIDE RECORDS SUMMARY | 2025-06-13 17:55 | XMS_ITS | Patient Health Record ---
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 Problem Lumbosacral radiculopathy (5155180) Radiculopathy, lumbosacral region (M54.17) Active confirmed Plan Of Treatment No Information Insurance Providers Payer Name Payer Address Payer Phone Subscriber Number Group Number Insured Name Patient Relationship to Insured Coverage Start Date Coverage End Date [facility] [address] [place] [address] [id number] Angelina Mcnulty Self - patient is the insured Medical (General) History Medical History History ICD Code HBP heart attack osteoarthritis fibromyalgia urinary incontinence headaches migraines stroke nerve damage IBS asthma chronic bronchitis pneumonia depression anxiety Surgical History Surgery Date(Month/Year) spine fusion & stimulator 2004 spine fusion 2006 spine fusion 2021
--- OUTSIDE RECORDS SUMMARY | 2025-06-13 17:55 | XMS_ITS | Encounter Summary ---
Author Organization [facility] Address [address] [place] [address] Care Team Providers Care Milk Condenser Name Role Phone FrazierShilpa DO Primary Care Provider Lidia Barajas MD Unavailable Ab Melara MD Primary Care Provid er Encounter Details Date Type Department Care Team (Late st Contact Info) Description 06/15/2018 Telephone [facility] [address] [address] [place] [address] Emil Clarke, RT Social History Tobacco Use Types Packs/Day Years Used Date Smoking Tobacco: Never Smokeless Tobacco: Never Alcohol Use Standard Drinks/Week Comments No 0 (1 standard drink = 0.6 oz pur e alcohol) Comments No Sex and Gender Information Value Date Recorded Sex Assigned at Not on file Legal Sex Female 11:49 PM GLOBAL PRESIDENT Gender Identity Not on file Sexual Orientation Not on file documented as of this encounter Functional Status * [place] Fall Risk Question Answer Date of Assessment Author History of Falling 25 06/16/2018 5:00 PM Emmanuelle Mancera, RN Secondary Diagnosis 15 06/16/2018 5:00 PM CS Emmanuelle Elias, dairy chemist Aids 15 06/16/2018 5:00 PM GLOBAL PRESIDENT Emmanuelle Cox, RN Intravenous Therapy/Heparin/ Saline Lock 20 06/16/2018 5:00 PM Emmanuelle Mancera, R N Gait/Transferring 10 06/16/2018 5:00 PM Emmanuelle Mancera, VITALIY Mental Status 0 06/16/2018 5:00 PM Emmanuelle Jerome, VITALIY * Josep Scale Question Answer Date of Assessment Author Sensory Perceptions 4 06/16/2018 5:00 PM CS T Emmanuelle Mcduffie, RN Moisture 4 06/16/2018 5:00 PM Emmanuelle Hood, RN Activity 3 06/16/2018 5:00 PM Emmanuelle Hood, VITALIY Mobility 3 06/16/2018 5:00 PM Emmanuelle Hood, RN Nutrition 3 06/16/2018 5:00 PM Emmanuelle Hood, VITALIY Friction and Shear 3 06/16/2018 5:00 PM Emmanuelle Mancera, VITALIY Josep Scale Score 20 06/16/2018 5:00 PM Emmanuelle Mancera, RN * BP Location Answer Date of Assessment Author Right arm 06/16/2018 10:49 AM [place] Cespedes, [place] * BP Method Answer Date of Assessment Author Automatic 06/16/2018 10:49 AM [place] Cespedes, [place] h[place] * Fall Risk Interventions Question Answer Date of Assessment Author All Low Fall Interventions Applied Yes 06/15/2018 11:00 PM Sarah Bonds RN All Moderate Fall Interventions Applied Yes 06/15/2018 11:00 PM Sarah Bonds RN All High Fall Risk Interventions Applied No 06/15/2018 8:00 PM Azra Rider RN All High Risk Interventions EXCEPT: Bed alarm 06/15/2018 8:00 PM Azra Rider, VITALIY Reason For Exception(s) Uses call light appropriately 06/15/2018 8:00 PM Azra Rider, VITALIY * B.M.A.T. - Bedside Mobility Assessment Tool for Nurses Question Answer Date of Assessment Author Is patient able to participate in the BMAT? Yes 06/15/2018 11:00 PM Sarah Bonds RN BMAT Level Level 3 - Yellow 06/15/2018 11:0 0 PM Sarah Bonds RN Level 3 Equipment Use assistive device such as cane/walker 06/15/2018 11:00 PM Sarah Bonds RN * Integumentary Question Answer Date of Assessment Author Skin Color Appropriate for ethnicity 06/15/2018 8:25 AM Eloina Barry RN Skin Condition/Temp Warm;Dry 06/15/2018 8:25 AM CS T Eloina Lisa RN Skin Turgor Non-tenting 06/15/2018 8:25 AM Eloina Barry RN Integumentary (WDL) WDL 06/15/2018 1 1:00 PM Sarah Bonds RN * Question Answer Date of Assessment Author Percent Meal Eaten (%) 100 06/15/2018 8:13 AM Sahara Messer * BP Location Answer Date of Assessment Author Right arm 06/16/2018 10:49 AM [place] Cespedes, [place] h[place] * BP Method Answer Date of Assessment Author Automatic 06/16/2018 10:49 AM [place] Cespedes, As hley * Question Answer Date of Assessment Author Bed In Lowest Position Yes 06/15/2018 11:00 P M Sarah Bonds RN Bed Wheels Locked Yes 06/15/2018 11:00 PM Sarah Bonds RN * Fall Risk Interventions Question Answer Date of Assessment Author All Low Fall Interventions Applied Yes 06/15/2018 11:00 PM Sarah Bonds RN All Moderate Fall Interventions Applied Yes 06/15/2018 11:00 PM Sarah Bonds RN All High Fall Risk Interventions Applied No 06/15/2018 8:00 PM Azra Rider RN All High Risk Interventions EXCEPT: Bed alarm 06/15/2018 8:00 PM Azra Rider, VITALIY Reason For Exception(s) Uses call light appropriately 06/15/2018 8:00 PM Azra Rider RN * RN Oversight of Sitter Question Answer Date of Assessment Author Sitter Not indicated 06/15/2018 8:25 AM Eloina Coppola RN * Nutrition Question Answer Date of Assessment Author Feeding Level of Assistance Able to feed self 06/15/2018 8:00 PM Azra Rider RN documented as of this encounter Mental Status * Question Answer Entry Date Author Level of Consciousness Alert;Awake 06/16/2018 9:55 AM GLOBAL PRESIDENT Emmanuelle Mcduffie RN * Question Answer Entry Date Author Orientation Oriented to person;O riented to situation;Oriented to place 06/16/2018 5:44 PM GLOBAL PRESIDENT Rodrick Patrick DPT * Question Answer Entry Date Author Neuro (WDL) X 06/15/2018 11:00 PM GLOBAL PRESIDENT Sarah Luo RN documented in this encounter Plan of Treatment Not on file documented as of this encounter Visit Diagnoses Not on filedocumented in this encounter Additional Health Concerns Infection Onset Date Last Indicated Resolved Time MRSA Comment:..20 @ 1043: Spoke with Pam who will relay message to patient's nurse, Ravindra, that the patient has an active MRSA infection and needs to be on contact isolation instead of modified contact isolation. 11/16/2019 11/16/2019 02/14/2021 5:00 AM C DT MRSA 12/27/2021 03/06/2022 09/02/2022 3:05 AM GLOBAL PRESIDENT documented as of this encounter Care Teams Milk Condenser Relationship Specialty Start Date End Date Shilpa Frazier DO PCP - General 06/12/18 07/15/21 Ab Melara MD [address] [address] PCP - General Family Medicine 07/16/21 Lidia Barajas MD Anesthesiologist Anesthesiology 01/13/20 documented as of this encounter
--- OUTSIDE RECORDS SUMMARY | 2025-06-13 17:55 | XMS_ITS | Encounter Summary ---
Author Organization [facility] Address [address] [place] [address] Care Team Providers Care Heel Sprayer Name Role Phone Fiordaliza Snell MD Primary Care Provider Encounter Details Date Type Department Care Team (Late st Contact Info) Description 05/06/2001 Emergency [facility] Pratik Jules MD NO ADDRESS ON FILE Er, Authorized P NO ADDRESS ON FILE ABDOMINAL PAIN OTHER SPEC SITE (Primary Dx) Social History Tobacco Use Types Packs/Day Years Used Date Smoking Tobacco: Never Assessed Comments Unknown Sex and Gender Information Value Date Recorded Sex Assigned at Not on file Legal Sex Female 2:43 AM OPERATIONS SUPPORT MANAGER Gender Identity Not on file Sexual Orientation Not on file documented as of this encounter Plan of Treatment Not on file documented as of this encounter Visit Diagnoses Diagnosis Abdominal pain, other specified site- Primary documented in this encounter Additional Health Concerns Infection Onset Date Last Indicated Resolved Time R/O COVID-19 07/02/2020 07/02/2020 07/02/2020 8:53 PM OPERATIONS SUPPORT MANAGER MRSA Comment:Resolved per Type and Duration of Precautions Recommended for Selected Infections and Conditions document 2023 update 07/02/2020 07/02/2020 03/16/20 24 10:58 AM CDT R/O COVID-19 07/10/2020 07/10/2020 07/10/2020 5:01 PM OPERATIONS SUPPORT MANAGER documented as of this encounter Care Teams Heel Sprayer Relationship Specialty Start Date End Date Fiordaliza Snell MD PCP - General Family Practice 09/09/22 documented as of this encounter
--- OUTSIDE RECORDS SUMMARY | 2025-06-13 17:56 | XMS_ITS | Encounter Summary ---
Author Organization [facility] Address [address] [place] [address] Care Team Providers Care Associate Professor Of Anthropology Name Role Phone Fiordaliza Snell MD Primary [...] on file Legal Sex Female 2:43 AM TONE CABINET ASSEMBLER Gender Identity Not on file Sexual Orientation Not on file documented as of this encounter Plan of Treatment Not on file documented as of this encounter Visit Diagnoses Diagnosis Excessive or frequent menstruation- Primary documented in this encounter Additional Health Concerns Infection Onset Date Last Indicated Resolved Time R/O COVID-19 07/02/2020 07/02/2020 07/02/2020 8:53 PM TONE CABINET ASSEMBLER MRSA Comment:Resolved per Type and Duration of Precautions Recommended for Selected Infections and Conditions document 2023 update 07/02/2020 07/02/2020 03/16/20 24 10:58 AM CDT R/O COVID-19 07/10/2020 07/10/2020 07/10/2020 5:01 PM TONE CABINET ASSEMBLER documented as of this encounter Care Teams Associate Professor Of Anthropology Relationship Specialty Start Date End Date Fiordaliza Snell MD PCP - General Family Practice 09/09/22 documented as of this encounter
--- OUTSIDE RECORDS SUMMARY | 2025-06-13 17:56 | XMS_ITS | Patient Health Record ---
Author Organization [facility] [address] Address [address] [place] [address] Support Name Relationship Address Phone JJ MOYA Guarantor Unknown [phone] Allergies Allergen (clinical drug ingredient) Drug/Non Drug [...] Status W/U Status Risk Notes Problem Hyperlipidemia (38269385) Hyperlipidemia, unspecified (E78.5) Active confirmed Diagnose d by lab results,stab le Problem Moderate recurrent major depression (38411021) Major depressive disorder, recurrent, moderate (F33.1) Active confirmed Problem Restless legs syndrome (42490066) Restless legs syndrome (G25.81) Active confirmed Problem Insomnia (835224670) Insomnia, unspecified (G47.00) Active confirmed Problem Chronic pain (90059361) Other chronic pain (G89.29) Active confirmed Diagnosed by history. Needs improvement Problem Essential hypertension (26518847) Essential (primary) hypertension (I10) Active confirmed Diagnosed by history. Stable on medication. 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 Stable on medication. Problem Cervicalgia (93402278) Cervicalgia (M54.2) Active confirmed Diagn osed by history. Stable on medication. Problem Sciatica (43681277) Lumbago with sciatica, right side (M54.41) Active confirmed Diagnosed by history. Needs improvement Problem Post-laminectomy syndrome (15778858) Postlaminectomy syndrome, not elsewhere classified (M96.1) Active confirmed Diagnosed by history. Needs improvement Problem Nausea (913577989) Nausea (R11.0) Active confirmed Diagnosed by history. 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 Stable on medication. Problem Body mass index 30.00 to 34.99 (633446030791819 ) Body mass index (BMI) 33.0-33.9, adult (Z68.33) Active confirmed Problem Opioid dependence (18537585) Uncomplicated opioid dependence (F11.20) Active confirmed Diagnosed by history. Stable on medication. Problem Lumbosacral spondylosis without myelopathy (49400283) Spondylosis of lumbar region without myelopathy or radiculopathy (M47.816) Active confirmed Diagnosed by history. Needs improvement Problem Sciatica (30453297) Sciatica of right side (M54.31) Active confirmed Diagnosed by history. Needs improvement Problem Neuritis of left ulnar nerve (138736694884167 00) Neuritis of left ulnar nerve (G56.22) Active confirmed Diagnosed by history. Resolved with surgical procedure Problem History of spinal fusion (09210724943515) History of spinal fusion (Z98.1) Active confirmed Diagnosed by history. 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 Stable on medication. 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 Stable on medication. 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 [facility] September 2015
--- OUTSIDE RECORDS SUMMARY | 2025-06-13 17:56 | XMS_ITS | Encounter Summary ---
Author Organization [facility] Address [address] [place] [address] Care Team Providers Care Hide And Skin Colerer Name Role Phone Fiordaliza Snell MD Primary [...] on file Legal Sex Female 2:43 AM BIOINFORMATICS COMPUTER SCIENTIST Gender Identity Not on file Sexual Orientation Not on file documented as of this encounter Plan of Treatment Not on file documented as of this encounter Visit Diagnoses Diagnosis Closed fracture of lateral malleolus- Primary documented in this encounter Additional Health Concerns Infection Onset Date Last Indicated Resolved Time R/O COVID-19 07/02/2020 07/02/2020 07/02/2020 8:53 PM BIOINFORMATICS COMPUTER SCIENTIST MRSA Comment:Resolved per Type and Duration of Precautions Recommended for Selected Infections and Conditions document 2023 update 07/02/2020 07/02/2020 03/16/20 10:58 AM CDT R/O COVID-19 07/10/2020 07/10/2020 07/10/2020 5:01 PM BIOINFORMATICS COMPUTER SCIENTIST documented as of this encounter Care Teams Hide And Skin Colerer Relationship Specialty Start Date End Date Fiordaliza Snell MD PCP - General Family Practice 09/09/22 documented as of this encounter
--- OUTSIDE RECORDS SUMMARY | 2025-06-13 17:56 | XMS_ITS | Clinical Summary ---
Author Organization [facility] Address [address] [place] [address] Phone Care Team Providers Care Bilingual Account Manager Name Role Phone Fiordaliza Snell MD [...] migh t be different from the original. Derrick Follower - Dr. Eddie Tapia MD, [facility], [facility] - [address] [facility] Problem Noted Date Diagnosed Date YAJAIRA [...] NOS Added automatically from request for surgery [id number] Last Assessment & Plan: Healing fusion C6-7 [...] (09/14/2021): Added automatically from request for surgery [id number] Cervical pain (neck) 06/13/2018 Intractable pain 10/13/2011 [...] 07/25/2020 Immunizations Immunization Administration Dates Next Due ([email or web address])(12 YR UP) COVID-19 VACCINE - EMERGENCY USE AUTHORIZATION, MRNA, [id number](PF) 30 MCG/0.3 ML IM SUSP 12/13/2020,11/20/2020 (PNEUMOVAX [...] on file Legal Sex Female 2:43 AM WASTEWATER ANALYST LAB ANALYST Gender Identity Not on file Sexual [...] CDT Respiratory Rate 18 07/12/2020 9:24 PM WASTEWATER ANALYST LAB ANALYST Oxygen Saturation 97% 04/20/2021 2:12 PM CDT Inhaled Oxygen Concentration - - Weight 91.6 kg (202 lb) 08/07/2020 2:15 PM WASTEWATER ANALYST LAB ANALYST Height 172.7 cm (5' 8) 04/20/2021 2:12 PM CDT Body Mass Index 30.71 08/07/2020 2:15 PM WASTEWATER ANALYST LAB ANALYST Plan of Treatment Health Maintenance Due Date [...] Colorectal Cancer Screening 11/28/2029 Insurance [employer] PPO [facility] DUAL COMPLETE PPO [facility] [id number] Advance Directives For more information, please contact: [phone] * Full Code (Latest Code Status on File) Date Activated Date Inactivated Comments 07/02/2020 10:50 PM 07/13/2020 1:53 PM * Full Code Date Activated Date Inactivated Comments 06/26/2011 3:20 AM 06/26/2011 8:40 PM Care Teams Bilingual Account Manager Relationship Specialty Start Date End Date Fiordaliza Snell MD PCP - General Family Practice 09/09/22
--- OUTSIDE RECORDS SUMMARY | 2025-06-13 17:56 | XMS_ITS | Encounter Summary ---
Author Organization [facility] Address [address] [place] [address] Care Team Providers Care Costume Maker Name Role Phone Fiordaliza Snell MD Primary Care Provider Encounter Details Date Type Department Care Team (Latest Contact Info) Description 11/23/2000 Inpatient Historical HIS PATIENT IN A BED GarciaAnjali ojseph MD NO ADDRESS ON FILE Unspecified symptom associated with female genital organs (Primary Dx) Social History Tobacco Use Types Packs/Day Years Used Date Smoking Tobacco: Never Assessed Comments Unknown Sex and Gender Information Value Date Recorded Sex Assigned at Not on file Legal Sex Female 2:43 AM BONDING EQUIPMENT OPERATOR Gender Identity Not on file Sexual Orientation Not on file documented as of this encounter Plan of Treatment Not on file documented as of this encounter Visit Diagnoses Diagnosis Unspecified symptom associated with female genital organs- Primary documented in this encounter Additional Health Concerns Infection Onset Date Last Indicated Resolved Time R/O COVID-19 07/02/2020 07/02/2020 07/02/2020 8:53 PM BONDING EQUIPMENT OPERATOR MRSA Comment:Resolved per Type and Duration of Precautions Recommended for Selected Infections and Conditions document 2023 update 07/02/2020 07/02/2020 03/16/20 24 10:58 AM CDT R/O COVID-19 07/10/2020 07/10/2020 07/10/2020 5:01 PM BONDING EQUIPMENT OPERATOR documented as of this encounter Care Teams Costume Maker Relationship Specialty Start Date End Date Fiordaliza Snell MD PCP - General Family Practice 09/09/22 documented as of this encounter
--- OUTSIDE RECORDS SUMMARY | 2025-06-13 17:56 | XMS_ITS ---
Author Organization [facility] Address [facility] [facility] [place] [address] Care Team Providers Care Web Content Specialist Name Role Phone Lidia Barajas MD Unavailable Shilpa Gandhi MD Unavailable Iron Galindo PA-C Primary Care Provide r Cresencio Ghosh MD Unavailable Cresencio Ghosh MD Unavailable Leanna Howe MA Unavailable [facility] Status:Identified (Enrolling) Start date:06/09/2025 Enrollment reason:Identified using payor list Case Team Name Relationship Phone Leanna Howe MA(Responsible Staff) Care Co ordination Specialist [phone] Continued Care and Services Coordination
--- OUTSIDE RECORDS SUMMARY | 2025-06-13 17:56 | XMS_ITS | Encounter Summary ---
Author Organization [facility] Address [address] [place] [address] Care Team Providers Care Diesel Electrician Name Role Phone Shilpa Frazier DO Primary Care Provider Lidia Barajas MD Unavailable Ab Melara MD Primary Care Provid er Encounter Details Date Type Department Care Team (Late st Contact Info) Description 04/24/2020 Telephone [facility] [address] [facility] [address] [place] [address] Tori Arias RN Social History [...] on file Legal Sex Female 11:49 PM INSPECTOR ELEVATORS Gender Identity Not on file Sexual Orientation [...] DT MRSA 12/27/2021 03/06/2022 09/02/2022 3:05 AM INSPECTOR ELEVATORS documented as of this encounter Care Teams Diesel Electrician Relationship Specialty Start Date End Date Shilpa Frazier DO PCP - General 06/12/18 07/15/21 Ab Melara MD [address] [address] PCP - General Family Medicine 07/16/21 Lidia Barajas MD Anesthesiologist Anesthesiology 01/13/20 documented as of this encounter
--- OUTSIDE RECORDS SUMMARY | 2025-06-13 17:56 | XMS_ITS | Encounter Summary ---
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
--- OUTSIDE RECORDS SUMMARY | 2025-06-13 17:56 | XMS_ITS | Encounter Summary ---
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
--- OUTSIDE RECORDS SUMMARY | 2025-06-13 17:56 | XMS_ITS | Encounter Summary ---
Author Organization [facility] Address [address] [place] [address] Care Team Providers Care Structural Architect Name Role Phone Fiordaliza Snell MD [...] on file Legal Sex Female 2:43 AM WAX PUMPER Gender Identity Not on file Sexual Orientation Not on file documented as of this encounter Plan of Treatment Not on file documented as of this encounter Visit Diagnoses Diagnosis Pelvic peritoneal adhesions, female (postoperative) (postinfection)- Primary documented in this encounter Additional Health Concerns Infection Onset Date Last Indicated Resolved Time R/O COVID-19 07/02/2020 07/02/2020 07/02/2020 8:53 PM WAX PUMPER MRSA Comment:Resolved per Type and Duration of Precautions Recommended for Selected Infections and Conditions document 2023 update 07/02/2020 07/02/2020 03/16/20 10:58 AM CDT R/O COVID-19 07/10/2020 07/10/2020 07/10/2020 5:01 PM WAX PUMPER documented as of this encounter Care Teams Structural Architect Relationship Specialty Start Date End Date Fiordaliza Snell MD PCP - General Family Practice 09/09/22 documented as of this encounter
--- OUTSIDE RECORDS SUMMARY | 2025-06-13 17:56 | XMS_ITS | Encounter Summary ---
Author Organization [facility] Address [address] [place] [address] Care Team Providers Care Aircraft Engine Specialist Name Role Phone Fiordaliza Snell MD [...] on file Legal Sex Female 2:43 AM PHARMACIST APPRENTICE Gender Identity Not on file Sexual Orientation Not on file documented as of this encounter Plan of Treatment Not on file documented as of this encounter Visit Diagnoses Diagnosis Surgical or other procedure not carried out because of patient's decision- Primary documented in this encounter Additional Health Concerns Infection Onset Date Last Indicated Resolved Time R/O COVID-19 07/02/2020 07/02/2020 07/02/2020 8:53 PM PHARMACIST APPRENTICE MRSA Comment:Resolved per Type and Duration of Precautions Recommended for Selected Infections and Conditions document 2023 update 07/02/2020 07/02/2020 03/16/20 10:58 AM CDT R/O COVID-19 07/10/2020 07/10/2020 07/10/2020 5:01 PM PHARMACIST APPRENTICE documented as of this encounter Care Teams Aircraft Engine Specialist Relationship Specialty Start Date End Date Fiordaliza Snell MD PCP - General Family Practice 09/09/22 documented as of this encounter
--- OUTSIDE RECORDS SUMMARY | 2025-06-13 17:56 | XMS_ITS | Encounter Summary ---
Author Organization [facility] Healthcare Address [address] [place] [address] Care Team Providers Care Community Educator Name Role Phone Shilpa Fraziermeera PEREZ Primary Care Provider Lidia Barajas MD Unavailable Ab Melara MD Primary Care Provid er Reason for Visit * Reason Onset Date Comments PRECALL ANTICOAG 02/18/2020 Encounter Details Date Type Department Care Team (Late st Contact Info) Description 02/18/2020 Telephone [facility] Center at [facility] [address] [facility] 1st [place] [address] Tori Arias RN PRECALL ANTICOAG [...] on file Legal Sex Female 11:49 PM BOX BLANK MACHINE 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
--- OUTSIDE RECORDS SUMMARY | 2025-06-13 17:56 | XMS_ITS | Encounter Summary ---
Author Organization [facility] Address [address] [place] [address] Care Team Providers Care White Sugar Boiler Name Role Phone Fiordaliza Snell MD Primary [...] on file Legal Sex Female 2:43 AM BAKER PAINT Gender Identity Not on file Sexual Orientation Not on file documented as of this encounter Plan of Treatment Not on file documented as of this encounter Visit Diagnoses Diagnosis Unspecified symptom associated with female genital organs- Primary documented in this encounter Additional Health Concerns Infection Onset Date Last Indicated Resolved Time R/O COVID-19 07/02/2020 07/02/2020 07/02/2020 8:53 PM BAKER PAINT MRSA Comment:Resolved per Type and Duration of Precautions Recommended for Selected Infections and Conditions document 2023 update 07/02/2020 07/02/2020 03/16/20 24 10:58 AM CDT R/O COVID-19 07/10/2020 07/10/2020 07/10/2020 5:01 PM BAKER PAINT documented as of this encounter Care Teams White Sugar Boiler Relationship Specialty Start Date End Date Fiordaliza Snell MD PCP - General Family Practice 09/09/22 documented as of this encounter
--- OUTSIDE RECORDS SUMMARY | 2025-06-13 17:56 | XMS_ITS | Encounter Summary ---
Author Organization [facility] Address [address] [place] [address] Care Team Providers Care Hospitality Coordinator Name Role Phone Fiordaliza Snell MD Primary Care Provider Encounter Details Date Type Department Care Team (Late st Contact Info) Description 08/24/1998 Emergency [facility] Matthew Cahng MD NO ADDRESS ON FILE Er, Authorized P NO ADDRESS ON FILE Abdominal pain, unspecified site (Primary Dx) Social History Tobacco Use Types Packs/Day Years Used Date Smoking Tobacco: Never Assessed Comments Unknown Sex and Gender Information Value Date Recorded Sex Assigned at Not on file Legal Sex Female 2:43 AM DIRECTOR OF PARTNER MARKETING Gender Identity Not on file Sexual Orientation Not on file documented as of this encounter Plan of Treatment Not on file documented as of this encounter Visit Diagnoses Diagnosis Abdominal pain, unspecified site- Primary documented in this encounter Additional Health Concerns Infection Onset Date Last Indicated Resolved Time R/O COVID-19 07/02/2020 07/02/2020 07/02/2020 8:53 PM DIRECTOR OF PARTNER MARKETING MRSA Comment:Resolved per Type and Duration of Precautions Recommended for Selected Infections and Conditions document 2023 update 07/02/2020 07/02/2020 03/16/20 24 10:58 AM CDT R/O COVID-19 07/10/2020 07/10/2020 07/10/2020 5:01 PM DIRECTOR OF PARTNER MARKETING documented as of this encounter Care Teams Hospitality Coordinator Relationship Specialty Start Date End Date Fiordaliza Snell MD PCP - General Family Practice 09/09/22 documented as of this encounter
--- OUTSIDE RECORDS SUMMARY | 2025-06-13 17:56 | XMS_ITS | Clinical Summary ---
Author Organization [facility] Address [address] [place] [address] Care Team Providers Care Virtualization Architect Name Role Phone Unavailable Primary Care Provider Unavailabl e Allergies Active Allergy Reactions Criticality Noted Date Comments Adhesive Rash Low 11/02/2013 Penicillins Hives,Swelling High 11/02/2013 Medications meloxicam (MOBIC) 15 mg tablet Take 15 mg by mouth daily. Active Active Problems No known active problems Family History Medical History Relation Name Comments Heart Disease Father Relation Name Status Comments Father Alive Social History Tobacco Use Types Packs/Day Years Used Date Smoking Tobacco: Never Smokeless Tobacco: Never Alcohol Use Standard Drinks/Week Comments No 0 (1 standard drink = 0.6 oz pur e alcohol) Comments No Sex and Gender Information Value Date Recorded Sex Assigned at Not on file Legal Sex Female 6:19 PM CDT Gender Identity Not on file Sexual Orientation Not on file Last Filed Vital Signs Vital Sign Reading Time Taken Comments Blood Pressure 108/60 11/02/2013 6:36 PM CDT Pulse 93 11/02/2013 6:36 PM CDT Temperature 36.4 C (97.6 F) 11/02/2013 6:36 PM CDT Respiratory Rate 20 11/02/2013 6:36 PM CDT Oxygen Saturation 96% 11/02/2013 6:36 PM CDT Inhaled Oxygen Concentration - - Weight 106.6 kg (235 lb) 11/02/2013 6:36 PM CDT Height 174 cm (5' 8.5) 11/02/2013 6:36 PM CDT Body Mass Index 35.21 11/02/2013 6:36 PM CDT Plan of Treatment Health Maintenance Due Date Last Done Comments DTAP/TDAP/TD VACCINES (1 - Tdap) 1985 HEPATITIS B VACCINES (1 of 3 - 19+ 3-dose series) 08/30 HPV/Cotest (21-29) 09/27/1987 CERVICAL CANCER SCREENING 1996 HPV/Cotest (30-65) 1996 PAP SMEAR 1996 BREAST CANCER SCREENING 2006 COLORECTAL SCREENING 09/27/2011 Colorectal Cancer Screening 09/27/2011 FIT-DNA Q 3 years 09/27/2011 FIT/FOBT Q 1 year 09/27/2011 Flex Sig/CT Colonography Q 5 years 09/27/2011 ZOSTER VACCINE (1 of 2) 2016 INFLUENZA VACCINE (#1) 2025 Insurance MEDICARE PART A AND B [facility]
--- OUTSIDE RECORDS SUMMARY | 2025-06-13 17:56 | XMS_ITS | Clinical Summary ---
Author Organization [facility] Address [address] [place] [address] Care Team Providers Care Contract Programmer Name Role Phone Lidia Barajas MD Unavailable [...] for pain 42 tablet 2 Active multivit fxvfjmsv-akkx-OV-c alcium (THERA-M) 9 mg iron-400 mcg tabletIndications: [...] (10/24/2021): Added automatically from request for surgery [id number] Postlaminectomy syndrome, lumbar region 10/25/19 Overview (10/24/2021): Added automatically from request for surgery [id number] Assessment & Plan (07/03/2022 3:48 PM FRONT OFFICE SPEC): Ms. Mcnulty is doing well following lumbar [...] (10/24/2021): Added automatically from request for surgery [id number] Other chest pain 01/19/2020 Assessment & Plan [...] need for exchange this admission Suprapubic catheter ([facility]) 11/16/2019 Essential hypertension 11/16/2019 Hypertensive urgency [...] (11/25/2019): Added automatically from request for surgery [id number] Chronic lumbar radiculopathy 01/21/2019 Chronic back pain 01/21/2019 Spinal stenosis of lumbar region with radiculopa thy 12/04/2018 Assessment & Plan (07/18/2021 10:23 AM FRONT OFFICE SPEC): Assessment Healed fusion L2-5 severe retrolisthesis with [...] (06/18/2018): Added automatically from request for surgery [id number] Assessment & Plan (12/04/2018 3:42 PM CDT): Healing fusion C6-7 Continued observation. Assessment & Plan (08/12/2018 10:35 AM FRONT OFFICE SPEC): Assessment Healing fusion C6-7 Plan Talked about do's and don'ts she is still to maintain her initial restrictions and return in 6 weeks for an x-ray Assessment & Plan (06/25/2018 2:43 PM FRONT OFFICE SPEC): Angelina was recently hospitalized at [facility] [...] (06/18/2018): Added automatically from request for surgery [id number] Cervical pain (neck) 06/13/2018 Asthma 11/13/2013 Overview [...] often do you attend chur ch or voodoo services? More than 4 times per year 03/07/2022 Do you belong to any clubs o r organizations such as samaritan groups, unions, fraternal or athletic groups, or [...] file Legal Sex Female 11:49 PM FRONT OFFICE SPEC Gender Identity Not on file Sexual Orientation [...] Chronic Care Management Worsening( 10:12 AM FRONT OFFICE SPEC) Milvia Mireles RN Note: Problem: Chronic Pain Goals: 1. Minimize further functional decline 2. Maximize quality of life 3. Control pain Strategies: - Activity/exercise program recommendation - Conservative stepwise pain medicine strategy with multi-disciplinary approach - Recommend healthy lifestyle strategies and compensatory methods as needed Medical Devices Implanted Type Area Tarp Repairer Device Identifier Shelf Expiration Date Model / Serial / Lot Spinal Cord Stimulator-2016 Implanted:01/28 (Quantity not on file) Spinal Cord Stimulator Left: Hip Nevro Spinal Cord Stimulation System [id number] / / Description:Closed Bore only 1.5T or [...] ensure it has returned to pre-MRI settings. [employer] 700-025 I Factor Allograft Putty Syringe Graft 2.5cc Bone - [id number] Implanted:Qty: 1 on 07/03/2018 by Zachary Rothman MD at [facility] N/A: Spine Cervical [employer] Inc 03/29/2021 700-025 / / [id number] Plate 1-Level 14 Mm Cervical - [id number] Implanted:Qty: 1 on 07/03/2018 by Zachary Rothman MD at [facility] N/A: Spine Cervical [employer] 30-0114 / / Screw 4.0x14mm Self Drilling Variable - [id number] Implanted:Qty: 4 on 07/03/2018 by Zachary Rothman MD at [facility] N/A: Spine Cervical [employer] 31-4014 / / Cage Spinal [id number] 7 Degree Porous Coated Latex Free - [id number] Implanted:Qty: 1 on 07/03/2018 by Zachary Rothman MD at [facility] N/A: Spine Cervical Spinal Elements [id number] / / Depuy Synthes Spine [id number] Substitute Bone Graft Fibergraft Gps Medium Putty 6cc - [id number] Implanted:Qty: 1 on 11/29/2021 by Dave Louis MD at [facility] N/A: Lumbar-Sa cral Spine Depuy Synthes Spine [id number] 10/18/2023 [id number] / / [id number] [employer] Inc Osteosponge Allograft Chips Radiolucent Thk4-10mm Graft 30cc Bone [id number] - [id number] - [id number] Implanted:Qty: 1 on 11/29/2021 by Dave Louis MD at [facility] N/A: Lumbar-Sa cral Spine [employer] 10/14/2024 [id number] / [id number] / Depuy Synthes Spine Cage Post Spinal 4d Plif Ti [id number] [id number] - [id number] Implanted:Qty: 1 on 11/29/2021 by Dave Louis MD at [facility] N/A: Lumbar-Sa cral Spine Depuy Synthes Spine [id number] 07/30/2024 [id number] / / [id number] Depuy Synthes Spine Expedium 5.5mm 80mm Line Prebent Rodney Spinal Titanium Nonsterile [id number] - [id number] Implanted:Qty: 1 on 11/29/2021 by Dave Louis MD at [facility] N/A: Lumbar-Sa cral Spine Depuy Synthes Spine [id number] / / Depuy Synthes Spine Expedium 5.5mm 85mm Line Prebent Rodney Spinal Titanium Nonsterile [id number] - [id number] Implanted:Qty: 1 on 11/29/2021 by Dave Louis MD at [facility] N/A: Lumbar-Sa cral Spine Depuy Synthes Spine [id number] / / Depuy Synthes Spine Expedium 5.5mm 45mm Polyaxial Spine Screw Bone Titanium 5.5mm Rodney [id number] - [id number] Implanted:Qty: 2 on 11/29/2021 by Dave Louis MD at [facility] N/A: Lumbar-Sa cral Spine Depuy Synthes Spine [id number] / / Depuy Synthes Spine Expedium 6.5mm 45mm Polyaxial Spine Screw Bone Titanium 5.5mm Rodney [id number] - [id number] Implanted:Qty: 3 on 11/29/2021 by Dave Louis MD at [facility] N/A: Lumbar-Sa cral Spine Depuy Synthes Spine [id number] / / Depuy Synthes Spine Expedium 1 Inner Monoaxial Spine Screw Set Titanium [id number] - [id number] Implanted:Qty: 6 on 11/29/2021 by Dave Louis MD at [facility] N/A: Lumbar-Sa cral Spine Depuy Synthes Spine [id number] / / Depuy Synthes Spine Expedium 7mm 45mm 1 Innie Polyaxial Spine Screw Bone Titanium [id number] - [id number] Implanted:Qty: 1 on 11/29/2021 by Dave Louis MD at [facility] N/A: Lumbar-Sa cral Spine Depuy Synthes Spine [id number] / / Procedures Procedure Name Priority Date/Time [...] the bowel preparation was evaluated usingthe BBPS ([place] Bowel Preparation Scale) with scores of: Right [...] Nonreactive [facility] Comment: Interpretive Data: If Hep A IgM Ab is reported as Equivocal, a new sample should be drawn in two weeks for testing. Current interpretive data was last revised on 19. Hep B core IgM Nonreactive Nonreactive [facility] Comment: Interpretive Data If HepB Core IgM Ab is reported as Equivocal, a new sample should be drawn in two weeks for testing. Current interpretive data was last revised on 19. Hep C Ab Nonreactive Nonreactive [facility] Comment: Interpretive Data Nonreactive: [...] on 2019. HepBsAg Nonreactive Nonreactive [facility] Blood specimen (specimen) 11/17/2019 4:13 AM CDT 11/17/2019 4:31 AM CDT [facility] MICROBIOLOGY - GENERAL ORDERABLES Final Result [facility] [address] Department [place] [address] from Last 3 Months or Most Recently Relevant to Health Maintenance Insurance [facility] MEDICARE ADVANTAGE [facility] [place] [address] [facility] U[employer] MEDICARE ADVANTAGE Advance Directives For more information, please contact: [phone] Documents on File Type Date Recorded Patient Recruitment Officer Expl anation Power of Compound Worker 11/29/2021 11:46 AM * Full Code [...] First Alternate Health Care Agent Care Teams Contract Programmer Relationship Specialty Start Date End Date Ab Melara MD [address] [facility] [address] [place] [address] PCP - General Family Medicine 07/16/21 Lidia Barajas MD Anesthesiologist Anesthesiology 01/13/20
--- OUTSIDE RECORDS SUMMARY | 2025-06-13 17:56 | XMS_ITS | Encounter Summary ---
Author Organization [facility] Address [address] [place] [address] Care Team Providers Care Heel Trimmer Name Role Phone Fiordaliza Snell MD Primary [...] on file Legal Sex Female 2:43 AM UPHOLSTERY COVERS INSPECTOR Gender Identity Not on file Sexual Orientation Not on file documented as of this encounter Plan of Treatment Not on file documented as of this encounter Visit Diagnoses Diagnosis Metrorrhagia- Primary documented in this encounter Additional Health Concerns Infection Onset Date Last Indicated Resolved Time R/O COVID-19 07/02/2020 07/02/2020 07/02/2020 8:53 PM UPHOLSTERY COVERS INSPECTOR MRSA Comment:Resolved per Type and Duration of Precautions Recommended for Selected Infections and Conditions document 2023 update 07/02/2020 07/02/2020 03/16/20 24 10:58 AM CDT R/O COVID-19 07/10/2020 07/10/2020 07/10/2020 5:01 PM UPHOLSTERY COVERS INSPECTOR documented as of this encounter Care Teams Heel Trimmer Relationship Specialty Start Date End Date Fiordaliza Snell MD PCP - General Family Practice 09/09/22 documented as of this encounter
--- OUTSIDE RECORDS SUMMARY | 2025-06-13 17:56 | XMS_ITS | Encounter Summary ---
Author Organization [facility] Address [address] [place] [address] Care Team Providers Care Database Designer Name Role Phone Fiordaliza Snell MD [...] on file Legal Sex Female 2:43 AM LIGHT RAIL VEHICLE OPERATOR Gender Identity Not on file Sexual Orientation Not on file documented as of this encounter Plan of Treatment Not on file documented as of this encounter Visit Diagnoses Diagnosis Lumbago- Primary documented in this encounter Additional Health Concerns Infection Onset Date Last Indicated Resolved Time R/O COVID-19 07/02/2020 07/02/2020 07/02/2020 8:53 PM LIGHT RAIL VEHICLE OPERATOR MRSA Comment:Resolved per Type and Duration of Precautions Recommended for Selected Infections and Conditions document 2023 update 07/02/2020 07/02/2020 03/16/20 24 10:58 AM CDT R/O COVID-19 07/10/2020 07/10/2020 07/10/2020 5:01 PM LIGHT RAIL VEHICLE OPERATOR documented as of this encounter Care Teams Database Designer Relationship Specialty Start Date End Date Fiordaliza Snell MD PCP - General Family Practice 09/09/22 documented as of this encounter
--- OUTSIDE RECORDS SUMMARY | 2025-06-13 18:56 | XMS_ITS | Encounter Summary ---
Author Organization [facility] Healthcare Address [address] [place] [address] Care Team Providers Care Public Relations Sales Marketing Name Role Phone FrazierShilpa DO Primary Care Provider Lidia Barajas MD Unavailable Ab Melara MD Primary Care Provid er Encounter Details Date Type Department Care Team (Late st Contact Info) Description 06/15/2018 Telephone [facility] Center at [facility] [address] [facility] [address] [place] [address] Emil Clarke, RT Social History Tobacco Use Types Packs/Day Years Used Date Smoking Tobacco: Never Smokeless Tobacco: Never Alcohol Use Standard Drinks/Week Comments No 0 (1 standard drink = 0.6 oz pur e alcohol) Comments No Sex and Gender Information Value Date Recorded Sex Assigned at Not on file Legal Sex Female 11:49 PM RAVELER Gender Identity Not on file Sexual Orientation Not on file documented as of this encounter Functional Status * [place] Fall Risk Question Answer Date of Assessment Author History of Falling 25 06/16/2018 5:00 PM Emmanuelle Mancera, RN Secondary Diagnosis 15 06/16/2018 5:00 PM CS Emmanuelle Elias, oracle soa developer Aids 15 06/16/2018 5:00 PM RAVELER Emmanuelle Cox, RN Intravenous Therapy/Heparin/ Saline Lock [...] Level of Consciousness Alert;Awake 06/16/2018 9:55 AM RAVELER Emmanuelle Mcduffie RN * Question Answer Entry Date Author Orientation Oriented to person;O riented to situation;Oriented to place 06/16/2018 5:44 PM RAVELER Rodrick Patrick DPT * Question Answer Entry Date Author Neuro (WDL) X 06/15/2018 11:00 PM RAVELER Sarah Luo RN documented in this encounter [...] DT MRSA 12/27/2021 03/06/2022 09/02/2022 3:05 AM RAVELER documented as of this encounter Care Teams Public Relations Sales Marketing Relationship Specialty Start Date End Date Shilpa Frazier DO PCP - General 06/12/18 07/15/21 Ab Melara MD [address] [address] PCP - General Family Medicine 07/16/21 Lidia Barajas MD Anesthesiologist Anesthesiology 01/13/20 documented as of this encounter
--- OUTSIDE RECORDS SUMMARY | 2025-06-13 18:56 | XMS_ITS | Encounter Summary ---
Author Organization [facility] Address [address] [place] [address] Care Team Providers Care Seafood Specialist Name Role Phone Fiordaliza Snell MD [...] on file Legal Sex Female 2:43 AM WILDLIFE BIOSTATION RESEARCH ECOLOGIST Gender Identity Not on file Sexual Orientation [...] fL INTERFACE SYSTEM 10/14/2004 6:07 AM CDT [employer] HEMATOLOGY ORDERABLES Final Resu lt Performing Organization Address [facility] Phone Number INTERFACE SYSTEM Refer to [...] mmol/L INTERFACE SYSTEM 10/14/2004 6:07 AM CDT [employer] CHEMISTRY ORDERABLES Final Resul t Performing Organization Address [facility] Phone Number INTERFACE SYSTEM Refer to clinic/hospital department * (ABNORMAL) AMYLASE (10/13/2004 9:56 AM CDT) AMYLASE 24(L) 28 - 100 U/L INTERFACE SYSTEM 10/13/2004 9:56 AM CDT Russell Marie CHEMISTRY ORDERABLES Final Resul t Performing Organization Address City/[facility] de Phone Number INTERFACE SYSTEM Refer to clinic/hospital department * LIPASE (10/13/2004 9:56 AM CDT) LIPASE 20 13 - 60 U/L INTERFAC E SYSTEM 10/13/2004 9:56 AM CDT Russell Marie CHEMISTRY ORDERABLES Final Resul t Performing Organization Address [facility] Phone Number INTERFACE SYSTEM Refer to clinic/hospital [...] ORDERABLES Final Resu lt Performing Organization Address City/[facility] de Phone Number INTERFACE [...] ORDERABLES Final Resu lt Performing Organization Address [facility] Phone Number INTERFACE SYSTEM Refer to clinic/hospital department * (ABNORMAL) C-REACTIVE PROTEIN (10/13/2004 5:00 AM CDT) CRP 1.3(H) 0.0 - 0.8 mg/dL INTERFACE SYSTEM 10/13/2004 5:00 AM CDT us Russell Salazar CHEMISTRY ORDERABLES Final Resul t Performing Organization Address [facility] Phone Number INTERFACE SYSTEM Refer to clinic/hospital [...] URINE ORDERABLES Final Result Performing Organization Address [facility] Phone Number INTERFACE SYSTEM Refer to clinic/hospital [...] ORDERABLES Final Resu lt Performing Organization Address City/[facility] Co de Phone Number INTERFACE SYSTEM [...] ORDERABLES Final Resul t Performing Organization Address [facility] Phone Number INTERFACE SYSTEM Refer to clinic/hospital department * AMYLASE (10/12/2004 9:17 PM CDT) AMYLASE 39 28 - 100 U/L INTERFACE SYSTEM Comment:Previous specimen us ed; approved by floor. 10/12/2004 9:17 PM CDT us Ida Lane MD CHEMISTRY ORDERABLES Final Resul t Performing Organization Address [facility] Phone Number INTERFACE SYSTEM Refer to clinic/hospital [...] ORDERABLES Final Resu lt Performing Organization Address City/[facility]/ZIP Co de Phone Number INTERFACE SYSTEM Refer [...] ORDERABLES Final Resu lt Performing Organization Address City/[facility] Co de Phone Number INTERFACE SYSTEM [...] ORDERABLES Final Resul t Performing Organization Address City/[facility] Co de Phone Number INTERFACE SYSTEM Refer to clinic/hospital department documented in this encounter Visit Diagnoses Diagnosis Abdominal pain, right lower quadrant- Primary documented in this encounter Additional Health Concerns Infection Onset Date Last Indicated Resolved Time R/O COVID-19 07/02/2020 07/02/2020 07/02/2020 8:53 PM WILDLIFE BIOSTATION RESEARCH ECOLOGIST MRSA Comment:Resolved per Type and Duration of Precautions Recommended for Selected Infections and Conditions document 2023 update 07/02/2020 07/02/2020 03/16/20 10:58 AM CDT R/O COVID-19 07/10/2020 07/10/2020 07/10/2020 5:01 PM WILDLIFE BIOSTATION RESEARCH ECOLOGIST documented as of this encounter Care Teams Seafood Specialist Relationship Specialty Start Date End Date Firodaliza Snell MD PCP - General Family Practice 09/09/22 documented as of this encounter
--- OUTSIDE RECORDS SUMMARY | 2025-06-13 18:56 | XMS_ITS | Clinical Summary ---
Author Organization [facility] Address [address] [place] [address] Phone Care Team Providers Care Optical Worker Name Role Phone Fiordaliza Snell MD [...] migh t be different from the original. Manager Imaging - Dr. Eddie Tapia MD, [facility], [facility] - [address] [facility] Problem Noted Date Diagnosed Date YAJAIRA [...] NOS Added automatically from request for surgery [id number] Last Assessment & Plan: Healing fusion C6-7 [...] (09/14/2021): Added automatically from request for surgery [id number] Cervical pain (neck) 06/13/2018 Intractable pain 10/13/2011 [...] 07/25/2020 Immunizations Immunization Administration Dates Next Due (Air2[employer])(12 YR UP) COVID-19 VACCINE - EMERGENCY USE AUTHORIZATION, MRNA, [id number](PF) 30 MCG/0.3 ML IM SUSP 12/13/2020,11/20/2020 (PNEUMOVAX [...] on file Legal Sex Female 2:43 AM CALENDER SUPERVISOR Gender Identity Not on file Sexual [...] CDT Respiratory Rate 18 07/12/2020 9:24 PM CALENDER SUPERVISOR Oxygen Saturation 97% 04/20/2021 2:12 PM CDT Inhaled Oxygen Concentration - - Weight 91.6 kg (202 lb) 08/07/2020 2:15 PM CALENDER SUPERVISOR Height 172.7 cm (5' 8) 04/20/2021 2:12 PM CDT Body Mass Index 30.71 08/07/2020 2:15 PM CALENDER SUPERVISOR Plan of Treatment Health Maintenance Due Date [...] Colorectal Cancer Screening 11/28/2029 Insurance [employer] PPO [facility] DUAL COMPLETE PPO [facility] [id number] Advance Directives For more information, please contact: [phone] * Full Code (Latest Code Status on File) Date Activated Date Inactivated Comments 07/02/2020 10:50 PM 07/13/2020 1:53 PM * Full Code Date Activated Date Inactivated Comments 06/26/2011 3:20 AM 06/26/2011 8:40 PM Care Teams Optical Worker Relationship Specialty Start Date End Date Fiordaliza Snell MD PCP - General Family Practice 09/09/22
--- OUTSIDE RECORDS SUMMARY | 2025-06-13 18:56 | XMS_ITS ---
Author Organization [facility] Address [facility] [facility] [place] [address] Care Team Providers Care Pc Tech Name Role Phone Lidia Barajas MD Unavailable Shilpa Gandhi MD Unavailable Iron Galindo PA-C Primary Care Provide r Cresencio Ghosh MD Unavailable Cresencio Ghosh MD Unavailable Leanna Howe MA Unavailable QMM & AWV - [employer] Status:Identified (Enrolling) Start date:06/09/2025 Enrollment reason:Identified using payor list Case Team Name Relationship Phone Leanna Howe MA(Responsible Staff) Care Co ordination Specialist [phone] Continued Care and Services Coordination
--- OUTSIDE RECORDS SUMMARY | 2025-06-13 18:56 | XMS_ITS | Encounter Summary ---
Author Organization [facility] Address [address] [place] [address] Care Team Providers Care Gastroenterology Manager Name Role Phone Shilpa Frazier DO Primary Care Provider Lidia Barajas MD Unavailable Ab Melara MD Primary Care Provid er Encounter Details Date Type Department Care Team (Late st Contact Info) Description 04/24/2020 Telephone [facility] [address] [facility] [address] [place] [address] Tori Arias RN Social History [...] on file Legal Sex Female 11:49 PM QUARTZ MOUNTER Gender Identity Not on file Sexual Orientation [...] DT MRSA 12/27/2021 03/06/2022 09/02/2022 3:05 AM QUARTZ MOUNTER documented as of this encounter Care Teams Gastroenterology Manager Relationship Specialty Start Date End Date Shilpa Frazier DO PCP - General 06/12/18 07/15/21 Ab Melara MD [address] [address] PCP - General Family Medicine 07/16/21 Lidia Barajas MD Anesthesiologist Anesthesiology 01/13/20 documented as of this encounter
--- OUTSIDE RECORDS SUMMARY | 2025-06-13 18:56 | XMS_ITS | Encounter Summary ---
Author Organization [facility] Address [address] [place] [address] Care Team Providers Care Acute Dialysis Registered Nurse Name Role Phone Fiordaliza Snell MD [...] file Legal Sex Female 2:43 AM PATIENT RELATIONS COORDINATOR Gender Identity Not on file Sexual Orientation Not on file documented as of this encounter Plan of Treatment Not on file documented as of this encounter Visit Diagnoses Diagnosis Other and unspecified ovarian cyst- Primary documented in this encounter Additional Health Concerns Infection Onset Date Last Indicated Resolved Time R/O COVID-19 07/02/2020 07/02/2020 07/02/2020 8:53 PM PATIENT RELATIONS COORDINATOR MRSA Comment:Resolved per Type and Duration of Precautions Recommended for Selected Infections and Conditions document 2023 update 07/02/2020 07/02/2020 03/16/20 24 10:58 AM CDT R/O COVID-19 07/10/2020 07/10/2020 07/10/2020 5:01 PM PATIENT RELATIONS COORDINATOR documented as of this encounter Care Teams Acute Dialysis Registered Nurse Relationship Specialty Start Date End Date Fiordaliza Snell MD PCP - General Family Practice 09/09/22 documented as of this encounter
--- OUTSIDE RECORDS SUMMARY | 2025-06-13 18:56 | XMS_ITS | Encounter Summary ---
Author Organization [facility] Address [address] [facility] [place] [address] Care Team Providers Care Aircraft Pneudraulic Systems Mechanic Name Role Phone Shilpa Frazier DO Primary Care Provider [phone] Lidia Barajas MD Unavailable Shilpa Gandhi MD Unavailable [phone] Massiel Melara MD Primary Care Provider [phone] Shilpa Frazier DO Primary Care Provider [phone] Iron Galindo PA-C Primary Care Provide r Cresencio Ghosh MD Unavailable Cresencio Ghosh MD Unavailable [phone] Cresencio Ghosh MD Unavailable Leanna Howe MA Unavailable [phone] Cresencio Ghosh MD Unavailable Leanna Howe MA Unavailable Encounter Details Date Type Department Care Team (Late st Contact Info) Description 01/23/2015 Therapy Visit EXTERNAL NON-[facility] DEPT Sunny Reynoso MD [address] [address] Social History Tobacco Use Types Packs/Day Years Used Date Smoking Tobacco: Never Alcohol Use Standard Drinks/Week Comments Yes 0 (1 standard drink = 0.6 oz pur e alcohol) 1-2 year Comments Unknown Sex and Gender Information Value Date Recorded Sex Assigned at Not on file Legal Sex Female 6:02 AM RECREATION THERAPY DIRECTOR Gender Identity Not on file Sexual [...] NO NEED FOR ISOLATION AT THIS TIME; JEWELRY BENCH WORKER INF PREV [id number] 10/07/2019 10/07/2019 09/05/19 8:37 AM RECREATION THERAPY DIRECTOR MRSA 10/07/2019 10/07/2019 01/29/2020 8:33 AM CDT MRSA 01/28/2020 01/28/2020 03/20/2020 7:45 AM CDT COVID-19 Under Investigation 04/06/2020 04/08/2020 04/09/2020 5:20 AM CDT MRSA 04/11/2020 04/11/2020 12/25/2020 9:00 AM CDT COVID-19 Under Investigation 08/07/2020 08/07/2020 08/08/2020 3:45 PM RECREATION THERAPY DIRECTOR COVID-19 Under Investigation 08/11/2020 08/11/2020 08/12/2020 4:08 AM RECREATION THERAPY DIRECTOR MRSA 05/13/2021 02/05/2022 09/04/2022 8:37 AM RECREATION THERAPY DIRECTOR MRSA Hx 09/04/2022 09/04/2022 MDRO Comment:04/01/23 MDRO resolved, ES 02/23/2023 02/23/20232022 7:16 AM CDT MDRO Hx 04/01/2023 04/01/2023 MDRO 05/08/2023 05/08/2023 documented as of this encounter Care Teams Aircraft Pneudraulic Systems Mechanic Relationship Specialty Start Date End Date Shilpa Frazier DO [address] [place] [address] PCP - General Family Medicine 08/06/17 07/31/20 Massiel Melara MD [address] [place] [address] PCP - General Family Medicine 08/01/20 10/01/20 Shilpa Frazier DO [address] [place] [address] PCP - General Family Medicine 10/02/20 10/03/20 Iron Galindo PA-C [address] [facility] [address] [place], [place] [id number] PCP - General Physician Creative Developer 02/12/23 Cresencio Ghosh MD [address] [place] [address] PCP - Attributed-[facility] P4P 12/29/23 09/14/24 Cresencio Ghosh MD [address] [place] [address] PCP - Attributed-[facility] P[facility]P 10/28/24 04/16/25 Cresencio Ghosh MD [address] [place] [address] PCP - Attributed-[facility] P[facility]P 05/02/25 Lidia Barajas [facility] [address] [facility] [address] Anesthesiology-Pain Management 06/03/19 Shilpa Gandhi MD [address] [place] [address] Oncology 06/03/19 Cresencio Ghosh MD [address] [place] [address] Internal Medicine Sleep Medicine 09/29/24 Leanna Howe MA Care Coordination Specialist Care Management 04/04/25 04/07/25 Leanna Howe MA Care Coordination Specialist Care Management 06/09/25 documented as of this encounter
--- OUTSIDE RECORDS SUMMARY | 2025-06-13 18:56 | XMS_ITS | Encounter Summary ---
Author Organization [facility] Address [address] [place] [address] Care Team Providers Care Fryer Operator Name Role Phone Fiordaliza Snell MD [...] on file Legal Sex Female 2:43 AM FILLER SHREDDER MACHINE Gender Identity Not on file Sexual Orientation Not on file documented as of this encounter Plan of Treatment Not on file documented as of this encounter Visit Diagnoses Diagnosis Metrorrhagia- Primary documented in this encounter Additional Health Concerns Infection Onset Date Last Indicated Resolved Time R/O COVID-19 07/02/2020 07/02/2020 07/02/2020 8:53 PM FILLER SHREDDER MACHINE MRSA Comment:Resolved per Type and Duration of Precautions Recommended for Selected Infections and Conditions document 2023 update 07/02/2020 07/02/2020 03/16/20 24 10:58 AM CDT R/O COVID-19 07/10/2020 07/10/2020 07/10/2020 5:01 PM FILLER SHREDDER MACHINE documented as of this encounter Care Teams Fryer Operator Relationship Specialty Start Date End Date Fiordaliza Snell MD PCP - General Family Practice 09/09/22 documented as of this encounter
--- OUTSIDE RECORDS SUMMARY | 2025-06-13 18:56 | XMS_ITS | Clinical Summary ---
Author Organization [facility] Address [address] [place] [address] Care Team Providers Care Skewer Up Name Role Phone Unavailable Primary Care Provider [...] Comments Blood Pressure 152/77 05/21/2019 8:00 AM REAL ESTATE SALES AGENT Pulse 75 05/21/2019 8:00 AM REAL ESTATE SALES AGENT Temperature 36.3 C (97.3 F) 05/21/2019 8:00 AM REAL ESTATE SALES AGENT Respiratory Rate 18 05/21/2019 8:00 AM REAL ESTATE SALES AGENT Oxygen Saturation 98% 05/21/2019 8:00 AM REAL ESTATE SALES AGENT Inhaled Oxygen Concentration - - Weight 108.9 kg (240 lb 1.6 oz) 05/09/2019 6:52 AM REAL ESTATE SALES AGENT Height 172.7 cm (5' 8) 04/18/2019 12:2 [...]
--- OUTSIDE RECORDS SUMMARY | 2025-06-13 18:56 | XMS_ITS | Encounter Summary ---
Author Organization [facility] Address [address] [place] [address] Care Team Providers Care Job Site Superintendent Name Role Phone Fiordaliza Snell MD Primary Care Provider Encounter Details Date Type Department Care Team (Latest Contact Info) Description 11/13/2004 Outpatient Historical [facility] [place] Garcia, Anjali Gupta MD NO ADDRESS ON FILE LUMP OR MASS IN BREAST (Primary Dx) Social History Tobacco Use Types Packs/Day Years Used Date Smoking Tobacco: Never Assessed Comments Unknown Sex and Gender Information Value Date Recorded Sex Assigned at Not on file Legal Sex Female 2:43 AM SEMICONDUCTOR ASSEMBLER Gender Identity Not on file Sexual Orientation Not on file documented as of this encounter Plan of Treatment Not on file documented as of this encounter Visit Diagnoses Diagnosis Lump or mass in breast- Primary documented in this encounter Additional Health Concerns Infection Onset Date Last Indicated Resolved Time R/O COVID-19 07/02/2020 07/02/2020 07/02/2020 8:53 PM SEMICONDUCTOR ASSEMBLER MRSA Comment:Resolved per Type and Duration of Precautions Recommended for Selected Infections and Conditions document 2023 update 07/02/2020 07/02/2020 03/16/20 10:58 AM CDT R/O COVID-19 07/10/2020 07/10/2020 07/10/2020 5:01 PM SEMICONDUCTOR ASSEMBLER documented as of this encounter Care Teams Job Site Superintendent Relationship Specialty Start Date End Date Fiordaliza Snell MD PCP - General Family Practice 09/09/22 documented as of this encounter
--- OUTSIDE RECORDS SUMMARY | 2025-06-13 18:56 | XMS_ITS | Clinical Summary ---
Author Organization [facility] Address [address] [place] [address] Care Team Providers Care Cryptologic Technician Technical Name Role Phone Unavailable Primary Care Provider [...] 2025 Insurance MEDICARE PART A AND B [facility]
--- OUTSIDE RECORDS SUMMARY | 2025-06-13 18:56 | XMS_ITS | Clinical Summary ---
Author Organization [facility] al Address [address] [place] [address] Care Team Providers Care Search Manager Name Role Phone Lidia Barajas MD Unavailable [...] for pain 42 tablet 2 Active multivit jekhzaft-vcsj-NG-c alcium (THERA-M) 9 mg iron-400 mcg tabletIndications: [...] (10/24/2021): Added automatically from request for surgery [id number] Postlaminectomy syndrome, lumbar region 10/25/19 Overview (10/24/2021): Added automatically from request for surgery [id number] Assessment & Plan (07/03/2022 3:48 PM HOSPICE OFFICE COORDINATOR): Ms. Mcnulty is doing well following lumbar [...] (10/24/2021): Added automatically from request for surgery [id number] Other chest pain 01/19/2020 Assessment & Plan [...] Suprapubic catheter ([facility]) 11/16/2019 Essential hypertension 11/16/2019 Hypertensive urgency [...] (11/25/2019): Added automatically from request for surgery [id number] Chronic lumbar radiculopathy 01/21/2019 Chronic back pain 01/21/2019 Spinal stenosis of lumbar region with radiculopa thy 12/04/2018 Assessment & Plan (07/18/2021 10:23 AM HOSPICE OFFICE COORDINATOR): Assessment Healed fusion L2-5 severe retrolisthesis with [...] (06/18/2018): Added automatically from request for surgery [id number] Assessment & Plan (12/04/2018 3:42 PM CDT): Healing fusion C6-7 Continued observation. Assessment & Plan (08/12/2018 10:35 AM HOSPICE OFFICE COORDINATOR): Assessment Healing fusion C6-7 Plan Talked about do's and don'ts she is still to maintain her initial restrictions and return in 6 weeks for an x-ray Assessment & Plan (06/25/2018 2:43 PM HOSPICE OFFICE COORDINATOR): Angelina was recently hospitalized at [facility] and diagnosed with a disc osteophyte [...] (06/18/2018): Added automatically from request for surgery [id number] Cervical pain (neck) 06/13/2018 Asthma 11/13/2013 Overview [...] often do you attend chur ch or sikh services? More than 4 times per year 03/07/2022 Do you belong to any clubs o r organizations such as temple groups, unions, fraternal or athletic groups, or [...] on file Legal Sex Female 11:49 PM HOSPICE OFFICE COORDINATOR Gender Identity Not on file Sexual [...] Plan Chronic Care Management Worsening( 10:12 AM HOSPICE OFFICE COORDINATOR) Milvia Mireles RN Note: Problem: Chronic Pain Goals: 1. Minimize further functional decline 2. Maximize quality of life 3. Control pain Strategies: - Activity/exercise program recommendation - Conservative stepwise pain medicine strategy with multi-disciplinary approach - Recommend healthy lifestyle strategies and compensatory methods as needed Medical Devices Implanted Type Area Decorator Store Device Identifier Shelf Expiration Date Model / Serial / Lot Spinal Cord Stimulator-2016 Implanted:01/28 (Quantity not on file) Spinal Cord Stimulator Left: Hip Nevro Spinal Cord Stimulation System [id number] / / Description:Closed Bore only 1.5T or [...] ensure it has returned to pre-MRI settings. [employer] 700-025 I Factor Allograft Putty Syringe Graft 2.5cc Bone - [id number] Implanted:Qty: 1 on 07/03/2018 by Zachary Rothman MD at [facility] N/A: Spine Cervical [employer] Inc 03/29/2021 700-025 / / [id number] Plate 1-Level 14 Mm Cervical - [id number] Implanted:Qty: 1 on 07/03/2018 by Zachary Rothman MD at [facility] N/A: Spine Cervical [employer] 30-0114 / / Screw 4.0x14mm Self Drilling Variable - [id number] Implanted:Qty: 4 on 07/03/2018 by Zachary Rothman MD at [facility] N/A: Spine Cervical [employer] 31-4014 / / Cage Spinal [id number] 7 Degree Porous Coated Latex Free - [id number] Implanted:Qty: 1 on 07/03/2018 by Zachary Rothman MD at [facility] N/A: Spine Cervical Spinal Elements [id number] / / Depuy Synthes Spine [id number] Substitute Bone Graft Fibergraft Gps Medium Putty 6cc - [id number] Implanted:Qty: 1 on 11/29/2021 by Dave Louis MD at [facility] N/A: Lumbar-Sa cral Spine Depuy Synthes Spine [id number] 10/18/2023 [id number] / / [id number] [employer] Osteosponge Allograft Chips Radiolucent Thk4-10mm Graft 30cc Bone [id number] - [id number] - [id number] Implanted:Qty: 1 on 11/29/2021 by Dave Louis MD at [facility] N/A: Lumbar-Sa cral Spine [employer] 10/14/2024 [id number] / [id number] / Depuy Synthes Spine Cage Post Spinal 4d Plif Ti [id number] - [id number] Implanted:Qty: 1 on 11/29/2021 by Dave Louis MD at [facility] N/A: Lumbar-Sa cral Spine Depuy Synthes Spine [id number] 07/30/2024 [id number] / / [id number] Depuy Synthes Spine Expedium 5.5mm 80mm Line Prebent Rodney Spinal Titanium Nonsterile [id number] - [id number] Implanted:Qty: 1 on 11/29/2021 by Dave Louis MD at [facility] N/A: Lumbar-Sa cral Spine Depuy Synthes Spine [id number] / / Depuy Synthes Spine Expedium 5.5mm 85mm Line Prebent Rodney Spinal Titanium Nonsterile [id number] - [id number] Implanted:Qty: 1 on 11/29/2021 by Dave Louis MD at [facility] N/A: Lumbar-Sa cral Spine Depuy Synthes Spine [id number] / / Depuy Synthes Spine Expedium 5.5mm 45mm Polyaxial Spine Screw Bone Titanium 5.5mm Rodney [id number] - [id number] Implanted:Qty: 2 on 11/29/2021 by Dave Louis MD at [facility] N/A: Lumbar-Sa cral Spine Depuy Synthes Spine [id number] / / Depuy Synthes Spine Expedium 6.5mm 45mm Polyaxial Spine Screw Bone Titanium 5.5mm Rodney [id number] - [id number] Implanted:Qty: 3 on 11/29/2021 by Dave Louis MD at [facility] N/A: Lumbar-Sa cral Spine Depuy Synthes Spine [id number] / / Depuy Synthes Spine Expedium 1 Inner Monoaxial Spine Screw Set Titanium [id number] - [id number] Implanted:Qty: 6 on 11/29/2021 by Dave Louis MD at [facility] N/A: Lumbar-Sa cral Spine Depuy Synthes Spine [id number] / / Depuy Synthes Spine Expedium 7mm 45mm 1 Innie Polyaxial Spine Screw Bone Titanium [id number] - [id number] Implanted:Qty: 1 on 11/29/2021 by Dave Louis MD at [facility] N/A: Lumbar-Sa cral Spine Depuy Synthes Spine [id number] / / Procedures Procedure Name Priority Date/Time [...] 11/29/2019 8:04 AM Admit Type: Inpatient Room: [facility] Date of : 1965 Instrument Name: [...] the bowel preparation was evaluated usingthe BBPS ([place] Bowel Preparation Scale) with scores of: [...] AM CDT) Hep A IgM Nonreactive [facility] Comment: Interpretive Data: If Hep A IgM Ab is reported as Equivocal, a new sample should be drawn in two weeks for testing. Current interpretive data was last revised on 19. Hep B core IgM Nonreactive Nonreactive [facility] Comment: Interpretive Data If HepB Core IgM Ab is reported as Equivocal, a new sample should be drawn in two weeks for testing. Current interpretive data was last revised on 19. Hep C Ab Nonreactive Nonreactive [facility] Comment: Interpretive Data Nonreactive: Antibodies to HCV [...] 2019. HepBsAg Nonreactive Nonreactive [facility] Blood specimen (specimen) 11/17/2019 4:13 AM CDT 11/17/2019 4:31 AM CDT [facility] MICROBIOLOG[facility] - GENERAL ORDERABLES Final Result [facility] [address] [place] [address] from Last 3 Months or Most Recently Relevant to Health Maintenance Insurance [facility] MEDICARE ADVANTAGE [facility] MEDICARE Address: [address] [address] [place] [address] [facility] [place]IC[place] [address] [facility] MEDICARE UHC MEDICARE ADVANTAGE Advance Directives For more information, please contact: [phone] Documents on File Type Date Recorded Patient Health It Specialist Expl anation Power of Hydraulic Specialist 11/29/2021 11:46 AM * Full Code (Latest [...] First Alternate Health Care Agent Care Teams Search Manager Relationship Specialty Start Date End Date Ab Melara MD [address] [facility] [address] [place] [address] PCP - General Family Medicine 07/16/21 Lidia Barajas MD Anesthesiologist Anesthesiology 01/13/20
--- OUTSIDE RECORDS SUMMARY | 2025-06-13 18:56 | XMS_ITS | Encounter Summary ---
Author Organization [facility] Address [address] [place] [address] Care Team Providers Care Manager Of Business Operations Name Role Phone Fiordaliza Snell MD Primary [...] on file Legal Sex Female 2:43 AM UNEMPLOYMENT BENEFITS CLAIMS TAKER Gender Identity Not on file Sexual Orientation Not on file documented as of this encounter Plan of Treatment Not on file documented as of this encounter Visit Diagnoses Diagnosis Chronic salpingitis and oophoritis- Primary documented in this encounter Additional Health Concerns Infection Onset Date Last Indicated Resolved Time R/O COVID-19 07/02/2020 07/02/2020 07/02/2020 8:53 PM UNEMPLOYMENT BENEFITS CLAIMS TAKER MRSA Comment:Resolved per Type and Duration of Precautions Recommended for Selected Infections and Conditions document 2023 update 07/02/2020 07/02/2020 03/16/20 24 10:58 AM CDT R/O COVID-19 07/10/2020 07/10/2020 07/10/2020 5:01 PM UNEMPLOYMENT BENEFITS CLAIMS TAKER documented as of this encounter Care Teams Manager Of Business Operations Relationship Specialty Start Date End Date Fiordaliza Snell MD PCP - General Family Practice 09/09/22 documented as of this encounter
--- OUTSIDE RECORDS SUMMARY | 2025-06-13 18:56 | XMS_ITS | Encounter Summary ---
Author Organization [facility] Address [address] [place] [address] Care Team Providers Care Service Control Operator Name Role Phone Fiordaliza Snell MD [...] on file Legal Sex Female 2:43 AM KEG WASHER Gender Identity Not on file Sexual Orientation Not on file documented as of this encounter Plan of Treatment Not on file documented as of this encounter Visit Diagnoses Diagnosis Unspecified symptom associated with female genital organs- Primary documented in this encounter Additional Health Concerns Infection Onset Date Last Indicated Resolved Time R/O COVID-19 07/02/2020 07/02/2020 07/02/2020 8:53 PM KEG WASHER MRSA Comment:Resolved per Type and Duration of Precautions Recommended for Selected Infections and Conditions document 2023 update 07/02/2020 07/02/2020 03/16/20 24 10:58 AM CDT R/O COVID-19 07/10/2020 07/10/2020 07/10/2020 5:01 PM KEG WASHER documented as of this encounter Care Teams Service Control Operator Relationship Specialty Start Date End Date Fiordaliza Snell MD PCP - General Family Practice 09/09/22 documented as of this encounter
--- OUTSIDE RECORDS SUMMARY | 2025-06-13 18:56 | XMS_ITS | Encounter Summary ---
Author Organization [facility] Address [address] [place] [address] Care Team Providers Care Casino Cage Cashier Name Role Phone Fiordaliza Snell MD Primary [...] on file Legal Sex Female 2:43 AM WINDOW GLAZIER Gender Identity Not on file Sexual Orientation Not on file documented as of this encounter Plan of Treatment Not on file documented as of this encounter Visit Diagnoses Diagnosis Surgical or other procedure not carried out because of patient's decision- Primary documented in this encounter Additional Health Concerns Infection Onset Date Last Indicated Resolved Time R/O COVID-19 07/02/2020 07/02/2020 07/02/2020 8:53 PM WINDOW GLAZIER MRSA Comment:Resolved per Type and Duration of Precautions Recommended for Selected Infections and Conditions document 2023 update 07/02/2020 07/02/2020 03/16/20 10:58 AM CDT R/O COVID-19 07/10/2020 07/10/2020 07/10/2020 5:01 PM WINDOW GLAZIER documented as of this encounter Care Teams Casino Cage Cashier Relationship Specialty Start Date End Date Fiordaliza Snell MD PCP - General Family Practice 09/09/22 documented as of this encounter
--- OUTSIDE RECORDS SUMMARY | 2025-06-13 18:56 | XMS_ITS | Encounter Summary ---
Author Organization [facility] Address [address] [place] [address] Care Team Providers Care Cocoa Bean Cleaner Name Role Phone Fiordaliza Snell MD Primary Care Provider Encounter Details Date Type Department Care Team (Late st Contact Info) Description 10/10/2003 Emergency [facility] Franki Grimes, [address] [place] [address] Er, Authorized P NO ADDRESS ON FILE LUMBAGO (Primary Dx) Social History Tobacco Use Types Packs/Day Years Used Date Smoking Tobacco: Never Assessed Comments Unknown Sex and Gender Information Value Date Recorded Sex Assigned at Not on file Legal Sex Female 2:43 AM NEGATIVE TURNER Gender Identity Not on file Sexual Orientation Not on file documented as of this encounter Plan of Treatment Not on file documented as of this encounter Visit Diagnoses Diagnosis Lumbago- Primary documented in this encounter Additional Health Concerns Infection Onset Date Last Indicated Resolved Time R/O COVID-19 07/02/2020 07/02/2020 07/02/2020 8:53 PM NEGATIVE TURNER MRSA Comment:Resolved per Type and Duration of Precautions Recommended for Selected Infections and Conditions document 2023 update 07/02/2020 07/02/2020 03/16/20 10:58 AM CDT R/O COVID-19 07/10/2020 07/10/2020 07/10/2020 5:01 PM NEGATIVE TURNER documented as of this encounter Care Teams Cocoa Bean Cleaner Relationship Specialty Start Date End Date Fiordaliza Snell MD PCP - General Family Practice 09/09/22 documented as of this encounter
--- OUTSIDE RECORDS SUMMARY | 2025-06-13 18:56 | XMS_ITS | Encounter Summary ---
Author Organization [facility] Address [address] [place] [address] Care Team Providers Care Finance Attorney Name Role Phone Frazier Shilpatemo Law DO Primary Care Provider Lidia Barajas MD Unavailable Ab Melara MD Primary Care Provid er Encounter Details Date Type Department Care Team (Late st Contact Info) Description 03/19/2019 Telephone [facility] - Interventional Radiology [address] [place] [address] Nhung French RN Social History [...] on file Legal Sex Female 11:49 PM JOINT SUPERVISOR Gender Identity Not on file Sexual [...] DT MRSA 12/27/2021 03/06/2022 09/02/2022 3:05 AM JOINT SUPERVISOR documented as of this encounter Care Teams Finance Attorney Relationship Specialty Start Date End Date Shilpa Frazier DO PCP - General 06/12/18 07/15/21 Ab Melara MD [address] [address] PCP - General Family Medicine 07/16/21 Lidia Barajas MD Anesthesiologist Anesthesiology 01/13/20 documented as of this encounter
--- OUTSIDE RECORDS SUMMARY | 2025-06-13 18:56 | XMS_ITS | Encounter Summary ---
Author Organization [facility] Address [address] [place] [address] Care Team Providers Care Rn Pacu Name Role Phone Shilpa Frazier DO Primary Care Provider Lidia Barajas MD Unavailable Ab Melara MD Primary Care Provid er Encounter Details Date Type Department Care Team (Late st Contact Info) Description 03/15/2019 Telephone [facility] - Interventional Radiology [address] [place] [address] Philly Aguirre RN Social History [...] on file Legal Sex Female 11:49 PM NEGATIVE SPOTTER Gender Identity Not on file Sexual Orientation [...] DT MRSA 12/27/2021 03/06/2022 09/02/2022 3:05 AM NEGATIVE SPOTTER documented as of this encounter Care Teams Rn Pacu Relationship Specialty Start Date End Date Shilpa Frazier DO PCP - General 06/12/18 07/15/21 Ab Melara MD [address] [address] PCP - General Family Medicine 07/16/21 Lidia Barajas MD Anesthesiologist Anesthesiology 01/13/20 documented as of this encounter
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
--- OUTSIDE RECORDS SUMMARY | 2025-06-13 18:56 | XMS_ITS | Clinical Summary ---
Author Organization [facility] [employer] Address [address] [facility] [place] [address] Care Team Providers Care Cloth Napping Supervisor Name Role Phone Lidia Barajas MD Unavailable Shilpa Gandhi MD Unavailable Iron Galindo PA-C Primary Care Provide r Cresencio Ghosh MD Unavailable [phone] Cresencio Ghosh MD Unavailable Leanna Howe MA Unavailable Source Comments [facility],non-owned Affiliates and Associated Physician Practices is amultiple site organization consisting of ambulatory clinics and hospital sitesin [place], [place], [place]. This disclosure is being madepursuant to the Care Everywhere program and may not contain all information available regarding this patient. Last updated 18.[facility] Allergies Active Allergy Reactions Criticality Noted [...] (spasms) 90 tablet 2 3 Active Nystop 619502 UNIT/GM powder Apply to affected area 2 [...] Department Care Team Description 06/09/[address] [facility] - Care Coordination [address] [place] [address] Leanna Howe MA Outreach Preventive Care 04/21/2025 Refill [facility] [address] [place] [address] Cresencio Ghosh MD Refill Request 04/18/2025 Telephone [facility] [address] [place] [address] Cresencio Ghosh MD Refill Request 04/18/2025 Refill [facility] [address] [place] [address] Cresencio Ghosh MD Refill Request 04/07/[address] [facility] - Care Coordination [address] [place] [address] Leanna Howe MA Outreach Preventive Care 04/04/[address] [facility] - Care Coordination [address] [place] [address] Leanna Howe MA Outreach Preventive Care 03/23/2025 Telephone [facility] [address] [place] [address] Cresencio Ghosh MD Appointment from Last 3 Months Immunizations Immunization Administration Dates Next Due CovFroont primary monoval ent 12+ yr 0.3mL Purple [...] care, and heating? Not very hard 04/02/2023 [facility] - Occupational Stress [...] on file Legal Sex Female 6:02 AM CONFERENCE RESERVATIONIST Gender Identity Not on file Sexual Orientation Not on file Occupation Industry Job Start Date Job End Date Disabled Not on file Not on file Not on file Last Filed Vital Signs Vital Sign Reading Time Taken Comments Blood Pressure 157/91 05/07/2023 9:23 AM CONFERENCE RESERVATIONIST Pulse 86 05/07/2023 9:23 AM CONFERENCE RESERVATIONIST Temperature 36.3 C (97.3 F) 05/07/2023 9:23 AM CONFERENCE RESERVATIONIST Respiratory Rate 18 04/02/2023 3:00 PM CDT Oxygen Saturation 95% 05/07/2023 9:23 AM CONFERENCE RESERVATIONIST Inhaled Oxygen Concentration 97% 02/21/2021 1 0:15 [...] < 140/90 Blood Pressure 157/91(2022 9:23 AM CONFERENCE RESERVATIONIST) No Sierra Steiner Yearly PCP visit Lifestyle No White, Ava A Have labs drawn Lifestyle No White, Ava A Take recommended medication(s) Lifestyle No White, Ava A Use safety retraint in car Lifestyle No White, Ava A Complete Health Maintenance Screenings Lifestyle No White, Ava A Medical Devices Implanted Type Area Car Carder Device Identifier Shelf Expiration Date Model / Serial / Lot Nevro Neurostimulator Senza [id number] (Implanted 2016) Floseal Hemostatic Matrix Implanted:Qty: 1 on 04/02/2019 by Maicol Mcneil DO at [facility] N/A: Spine [employer] 08/10/2020 [id number] / / [id number] Graft Tissue Drgn + Bvn Clgn Mtrx 1x1in Implanted:Qty: 1 on 04/02/2019 by Maicol Mcneil DO at [facility] N/A: Spine [employer] 04/29/2021 [id number] / / [id number] Seal Tisseel Prima 1 Prefil Frz 4ml - [id number] Implanted:Qty: 1 on 04/02/2019 by Maicol Mcneil DO at [facility] N/A: Spine [employer] 08/27/2020 [id number] / [id number] / [id number] Impl Inj 1ml Coaptite Syr Bulk Agnt Implanted:Qty: 2 on 04/11/2020 by Dave Aparicio MD at [facility] N/A: Bladder [employer] 10/25/2022 [id number] / / [id number] Impl Inj 1ml Coaptite Syr Bulk Agnt Implanted:Qty: 2 on 02/05/2022 by Dave Aparicio MD at [facility] Bladder [employer] 10/16/2024 [id number] / / [id number] Stent Uret 7fr 80cm Str Cls Tip Llok Implanted:Qty: 1 on 09/03/2022 by Nel Cerna DO at [facility] Ureter [employer] 12/23/2025 [id number] / / [id number] Description:bilateral ureter s Procedures Procedure Name Priority [...] 7 - 26 mg/dL 04/02/2023 3:07 AM [facility] Creatinine 0.69 0.56 - 0.96 mg/dL 04/02/2023 3:07 AM [facility] Sodium 133(L) 136 - 145 mmol/L 04/02/2023 3:07 AM [facility] Potassium 3.9 3.5 - 4.5 mmol/L 04/02/2023 3:07 AM [facility] Chloride 102 98 - 107 mmol/L 04/02/2023 3:07 AM [facility] CO2 26 22 - 29 mmol/L 04/02/2023 3:07 AM [facility] Glucose 122(H) 70 - 115 mg/dL 04/02/2023 3:07 AM [facility] Calcium 8.3(L) 8.4 - 10.2 mg/dL 04/02/2023 3:07 AM [facility] Anion Gap 5(L) 6 - 16 04/02/2023 3:07 AM [facility] BUN/Creatinine Ratio 23 7 - 23 04/02/2023 3:07 AM [facility] Osmolality Calculated 278 275 - 295 mOsm/kg 04/02/2023 3:07 AM CDT [facility] eGFR by CKD-EPI >90 >=90 mL/min/1.7 3 m2 04/02/2023 3:07 AM CDT [facility] Blood BLOOD SPECIMEN / Unknown Lab Venipuncture / Unknown 04/02/2023 2:31 AM CDT 04/02/2023 2:39 AM CDT us Missy Sutherland MD LAB - CHEMISTRY ORDERABLES Final Result [facility] [address] [place] [address], [facility] [phone] * ENDOSCOPY, COLON, SCREENING (11/29/2019) us Provider [...] participate in the care of your patient. [facility] utilizes [facility] as a reminder system to notify patients of their next recommended mammogram. Narrative 09/23/2017 9:22 AM CDT EXAMINATION: Digital screening mammogram on 09/18/2017. Low-dose full-field digital breast tomosynthesis examination was performed with synthetic 2D images and 3D acquisitions. Computer assisted detection was utilized. PRIOR: Mammogram from [facility] on 11/13/2004. BREAST PARENCHYMAL DENSITY: The breasts are almost entirely fatty. RISK ASSESSMENT CALCULATION: Based on the information provided by your patient, her lifetime risk of breast cancer is average (<15%). Additional quantitative risk model data and patient history details have been scanned as a document/letter in [facility] electronic medical record (media tab). 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 Adv Directive/Living Will/POA 09/16/2022 3:23 [...] 4:01 AM 05/11/2020 8:00 PM Care Teams Cloth Napping Supervisor Relationship Specialty Start Date End Date Iron Galindo PA-C [address] [facility] [address] [place], [place] [id number] PCP - General Physician Pattern Repair Person 02/12/23 Cresencio Ghosh MD [address] [facility] [address] [place], [place] [address] PCP - Attributed-[facility] [place] STL P4P 05/02/25 Lidia Barajas MD [facility] [address] Anesthesiology-Pain Management 06/03/19 Shilpa Gandhi MD [address] [facility] [address] [place] [address] Oncology 06/03/19 Cresencio Ghosh MD [address] [facility] [address] [place] [address] Internal Medicine Sleep Medicine 09/29/24 Leanna Howe MA Care Coordination Specialist Care Management 06/09/25
--- OUTSIDE RECORDS SUMMARY | 2025-06-13 18:56 | XMS_ITS | Encounter Summary ---
Author Organization [facility] Address [address] [place] [address] Care Team Providers Care Director Facilities Maintenance Name Role Phone Fiordaliza Snell MD Primary [...] on file Legal Sex Female 2:43 AM INTERNAL GRINDER TENDER Gender Identity Not on file Sexual Orientation Not on file documented as of this encounter Plan of Treatment Not on file documented as of this encounter Visit Diagnoses Diagnosis Abdominal pain, other specified site- Primary documented in this encounter Additional Health Concerns Infection Onset Date Last Indicated Resolved Time R/O COVID-19 07/02/2020 07/02/2020 07/02/2020 8:53 PM INTERNAL GRINDER TENDER MRSA Comment:Resolved per Type and Duration of Precautions Recommended for Selected Infections and Conditions document 2023 update 07/02/2020 07/02/2020 03/16/20 24 10:58 AM CDT R/O COVID-19 07/10/2020 07/10/2020 07/10/2020 5:01 PM INTERNAL GRINDER TENDER documented as of this encounter Care Teams Director Facilities Maintenance Relationship Specialty Start Date End Date Fiordaliza Snell MD PCP - General Family Practice 09/09/22 documented as of this encounter
--- OUTSIDE RECORDS SUMMARY | 2025-06-13 18:56 | XMS_ITS | Encounter Summary ---
Author Organization [facility] Address [address] [place] [address] Care Team Providers Care Ditching Machine Operator Name Role Phone Fiordaliza Snell MD Primary Care Provider Encounter Details Date Type Department Care Team (Late st Contact Info) Description 04/18/2003 Emergency [facility] Otilia Rose MD [address] [place] [address] Er, Authorized P NO ADDRESS ON FILE ABDOMINAL PAIN RLQ (Primary Dx) Social History Tobacco Use Types Packs/Day Years Used Date Smoking Tobacco: Never Assessed Comments Unknown Sex and Gender Information Value Date Recorded Sex Assigned at Not on file Legal Sex Female 2:43 AM UTILITY SPECIALIST Gender Identity Not on file Sexual Orientation Not on file documented as of this encounter Plan of Treatment Not on file documented as of this encounter Visit Diagnoses Diagnosis Abdominal pain, right lower quadrant- Primary documented in this encounter Additional Health Concerns Infection Onset Date Last Indicated Resolved Time R/O COVID-19 07/02/2020 07/02/2020 07/02/2020 8:53 PM UTILITY SPECIALIST MRSA Comment:Resolved per Type and Duration of Precautions Recommended for Selected Infections and Conditions document 2023 update 07/02/2020 07/02/2020 03/16/20 10:58 AM CDT R/O COVID-19 07/10/2020 07/10/2020 07/10/2020 5:01 PM UTILITY SPECIALIST documented as of this encounter Care Teams Ditching Machine Operator Relationship Specialty Start Date End Date Fiordaliza Snell MD PCP - General Family Practice 09/09/22 documented as of this encounter
--- OUTSIDE RECORDS SUMMARY | 2025-06-13 18:56 | XMS_ITS | Encounter Summary ---
Author Organization [facility] Address [address] [place] [address] Care Team Providers Care Tunnel Heading Supervisor Name Role Phone Fiordaliza Snell MD [...] on file Legal Sex Female 2:43 AM TELEVISION SCRIPT WRITER Gender Identity Not on file Sexual Orientation Not on file documented as of this encounter Plan of Treatment Not on file documented as of this encounter Visit Diagnoses Diagnosis Pelvic peritoneal adhesions, female (postoperative) (postinfection)- Primary documented in this encounter Additional Health Concerns Infection Onset Date Last Indicated Resolved Time R/O COVID-19 07/02/2020 07/02/2020 07/02/2020 8:53 PM TELEVISION SCRIPT WRITER MRSA Comment:Resolved per Type and Duration of Precautions Recommended for Selected Infections and Conditions document 2023 update 07/02/2020 07/02/2020 03/16/20 10:58 AM CDT R/O COVID-19 07/10/2020 07/10/2020 07/10/2020 5:01 PM TELEVISION SCRIPT WRITER documented as of this encounter Care Teams Tunnel Heading Supervisor Relationship Specialty Start Date End Date Fiordaliza Snell MD PCP - General Family Practice 09/09/22 documented as of this encounter
--- OUTSIDE RECORDS SUMMARY | 2025-06-13 18:56 | XMS_ITS | Encounter Summary ---
Author Organization [facility] Address [address] [place] [address] Care Team Providers Care Layout Inspector Name Role Phone Fiordaliza Snell MD [...] file Legal Sex Female 2:43 AM CHIEF ENGINEERING DIVISION Gender Identity Not on file Sexual Orientation Not on file documented as of this encounter Plan of Treatment Not on file documented as of this encounter Visit Diagnoses Diagnosis Unspecified symptom associated with female genital organs- Primary documented in this encounter Additional Health Concerns Infection Onset Date Last Indicated Resolved Time R/O COVID-19 07/02/2020 07/02/2020 07/02/2020 8:53 PM CHIEF ENGINEERING DIVISION MRSA Comment:Resolved per Type and Duration of Precautions Recommended for Selected Infections and Conditions document 2023 update 07/02/2020 07/02/2020 03/16/20 24 10:58 AM CDT R/O COVID-19 07/10/2020 07/10/2020 07/10/2020 5:01 PM CHIEF ENGINEERING DIVISION documented as of this encounter Care Teams Layout Inspector Relationship Specialty Start Date End Date Fiordaliza Snell MD PCP - General Family Practice 09/09/22 documented as of this encounter
--- OUTSIDE RECORDS SUMMARY | 2025-06-13 18:56 | XMS_ITS | Clinical Summary ---
Author Organization [facility] Address [address] [place] [address] Phone Care Team Providers Care Seafood Technology Specialist Name Role Phone Unavailable Primary Care Provider Unavailabl e Social History Tobacco Use Types Packs/Day Years Used Date Smoking Tobacco: Never Assessed Comments Unknown Sex and Gender Information Value Date Recorded Sex Assigned at Not on file Legal Sex Female 3:52 AM JEWELRY ENGRAVER Gender Identity Not on file Sexual Orientation [...]
--- OUTSIDE RECORDS SUMMARY | 2025-06-13 18:57 | XMS_ITS | Encounter Summary ---
Author Organization [facility] Address [address] [place] [address] Care Team Providers Care Editor House Organ Name Role Phone Fiordaliza Snell MD Primary [...] file Legal Sex Female 2:43 AM PAINT SPRAY TENDER Gender Identity Not on file Sexual Orientation Not on file documented as of this encounter Plan of Treatment Not on file documented as of this encounter Visit Diagnoses Diagnosis Excessive or frequent menstruation- Primary documented in this encounter Additional Health Concerns Infection Onset Date Last Indicated Resolved Time R/O COVID-19 07/02/2020 07/02/2020 07/02/2020 8:53 PM PAINT SPRAY TENDER MRSA Comment:Resolved per Type and Duration of Precautions Recommended for Selected Infections and Conditions document 2023 update 07/02/2020 07/02/2020 03/16/20 24 10:58 AM CDT R/O COVID-19 07/10/2020 07/10/2020 07/10/2020 5:01 PM PAINT SPRAY TENDER documented as of this encounter Care Teams Editor House Organ Relationship Specialty Start Date End Date Fiordaliza Snell MD PCP - General Family Practice 09/09/22 documented as of this encounter
--- OUTSIDE RECORDS SUMMARY | 2025-06-13 18:57 | XMS_ITS | Encounter Summary ---
Author Organization [facility] Address [address] [place] [address] Care Team Providers Care Public Address Announcer Name Role Phone Fiordaliza Snell MD Primary [...] on file Legal Sex Female 2:43 AM 2ND GRADE TEACHER Gender Identity Not on file Sexual Orientation Not on file documented as of this encounter Plan of Treatment Not on file documented as of this encounter Visit Diagnoses Diagnosis Lumbago- Primary documented in this encounter Additional Health Concerns Infection Onset Date Last Indicated Resolved Time R/O COVID-19 07/02/2020 07/02/2020 07/02/2020 8:53 PM 2ND GRADE TEACHER MRSA Comment:Resolved per Type and Duration of Precautions Recommended for Selected Infections and Conditions document 2023 update 07/02/2020 07/02/2020 03/16/20 24 10:58 AM CDT R/O COVID-19 07/10/2020 07/10/2020 07/10/2020 5:01 PM 2ND GRADE TEACHER documented as of this encounter Care Teams Public Address Announcer Relationship Specialty Start Date End Date Fiordaliza Snell MD PCP - General Family Practice 09/09/22 documented as of this encounter
--- OUTSIDE RECORDS SUMMARY | 2025-06-13 18:57 | XMS_ITS | Encounter Summary ---
Author Organization [facility] Address [address] [place] [address] Care Team Providers Care Playground Aide Name Role Phone Shilpa Fraziermeera PEREZ Primary Care Provider Lidia Barajas MD Unavailable Ab Melara MD Primary Care Provid er Reason for Visit * Reason Onset Date Comments PRECALL ANTICOAG 02/18/2020 Encounter Details Date Type Department Care Team (Late st Contact Info) Description 02/18/2020 Telephone [facility] [address] [place] [address] Tori Arias RN PRECALL ANTICOAG [...] on file Legal Sex Female 11:49 PM CODER OPERATOR Gender Identity Not on file Sexual [...] DT MRSA 12/27/2021 03/06/2022 09/02/2022 3:05 AM CODER OPERATOR documented as of this encounter Care Teams Playground Aide Relationship Specialty Start Date End Date Shilpa Frazier DO PCP - General 06/12/18 07/15/21 Ab Melara MD [address] [address] PCP - General Family Medicine 07/16/21 Lidia Barajas MD Anesthesiologist Anesthesiology 01/13/20 documented as of this encounter
--- OUTSIDE RECORDS SUMMARY | 2025-06-13 18:57 | XMS_ITS | Encounter Summary ---
Author Organization [facility] Address [address] [place] [address] Care Team Providers Care Airways Control Specialist Name Role Phone Fiordaliza Snell MD [...] file Legal Sex Female 2:43 AM GOLF PROFESSIONAL Gender Identity Not on file Sexual Orientation Not on file documented as of this encounter Plan of Treatment Not on file documented as of this encounter Visit Diagnoses Diagnosis Closed fracture of lateral malleolus- Primary documented in this encounter Additional Health Concerns Infection Onset Date Last Indicated Resolved Time R/O COVID-19 07/02/2020 07/02/2020 07/02/2020 8:53 PM GOLF PROFESSIONAL MRSA Comment:Resolved per Type and Duration of Precautions Recommended for Selected Infections and Conditions document 2023 update 07/02/2020 07/02/2020 03/16/20 10:58 AM CDT R/O COVID-19 07/10/2020 07/10/2020 07/10/2020 5:01 PM GOLF PROFESSIONAL documented as of this encounter Care Teams Airways Control Specialist Relationship Specialty Start Date End Date Fiordaliza Snell MD PCP - General Family Practice 09/09/22 documented as of this encounter
--- OUTSIDE RECORDS SUMMARY | 2025-06-13 18:57 | XMS_ITS | Encounter Summary ---
Author Organization [facility] Address [address] [place] [address] Care Team Providers Care Director Of Gift Planning Name Role Phone Fiordaliza Snell MD Primary [...] on file Legal Sex Female 2:43 AM SHREDDING MACHINE KNIFE CHANGER Gender Identity Not on file Sexual Orientation Not on file documented as of this encounter Plan of Treatment Not on file documented as of this encounter Visit Diagnoses Diagnosis Abdominal pain, unspecified site- Primary documented in this encounter Additional Health Concerns Infection Onset Date Last Indicated Resolved Time R/O COVID-19 07/02/2020 07/02/2020 07/02/2020 8:53 PM SHREDDING MACHINE KNIFE CHANGER MRSA Comment:Resolved per Type and Duration of Precautions Recommended for Selected Infections and Conditions document 2023 update 07/02/2020 07/02/2020 03/16/20 24 10:58 AM CDT R/O COVID-19 07/10/2020 07/10/2020 07/10/2020 5:01 PM SHREDDING MACHINE KNIFE CHANGER documented as of this encounter Care Teams Director Of Gift Planning Relationship Specialty Start Date End Date Fiordaliza Snell MD PCP - General Family Practice 09/09/22 documented as of this encounter
[2025-06-13] MEDS: MEROPENEM 1 GM in SODIUM CHLORIDE 0.9% IV 100 ML 200 ML IVPB (20:08)
[2025-06-13] MEDS: HYDROmorphone HCL INJ (*CRX) 1 MG/ML SYR IV PUSH ×2 (20:08→21:40)
[2025-06-13 20:13] LABS: CRP 6.6 mg/dL (<1.0)
--- NOTE | 2025-06-13 21:19 | PM.IMHP2 ---
H&P: HPI History of Present Illness Date/Time: 06/13/25 21:19 Chief Complaint: Abdominal pain Narrative: This is a 59-year-old female patient who has a history of incomplete paraplegia. The patient has had multiple abdominal infections and dysfunctional suprapubic catheters. She currently has an ileal conduit to left lower quadrant for the last 2 years.. The patient came to the emergency room today with left upper and lower quadrant abdominal pain. She also stated that it radiated to right upper quadrant as well. She stated that she was not able to eat anything due to the pain. She also endorses nausea. She denies any shortness of breath, chest pain, or fever. Her white count is 10.2. H&H 11.7 and 35.2. Sodium is 135 and potassium is 3.2. Glucose 126. CRP 6.6. Urine is turbid, 1+ protein, 2+ urine blood, 3+ leukocyte esterase, urine RBCs 11-20, urine WBCs greater than 100. CT scan was read as a following MPRESSION: Bilateral hydronephrosis, right greater than left. There is ileal conduit noted with urostomy in the anterior abdomen just to the left of midline. 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 No bowel obstruction. The patient was given Toradol, normal saline, Dilaudid, and started on meropenem in the emergency room. The patient has had a history of Enterobacter cloacae complex. Which is sensitive to meropenem. The patient is being admitted to observation status on the date service of 04/13/2025. Review of Systems Constitutional: Constitutional: Reports as per HPI and Reports no additional constitutional complaints Eyes: Eyes: Reports as per HPI and Reports no additional eye complaints ENT: Reports no additional ear, nose, mouth, and throat complaints and Reports Normal hearing present Cardiovascular: Cardiovascular: Reports no additional cardiovascular complaints Respiratory: Respiratory: Reports as per HPI and Reports no additional respiratory complaints Gastrointestinal: Gastrointestinal: Reports as per HPI and Reports no additional gastrointestinal complaints Genitourinary: Genitourinary: Reports no additional female genitourinary complaints Musculoskeletal: Musculoskeletal: Reports no additional musculoskeletal complaints Integumentary/Breasts: Skin/Breast: Reports system reviewed and no additional complaints, except as docu Neurologic: Reports no additional neurologic complaints and Reports Normal hearing present Psychiatric: Psychiatric: Reports no additional psychiatric complaints and Reports as per HPI Hematologic/Lymphatic: Hematologic/Lymphatic: Reports no additional hematologic/lymphatic complaints Allergic/Immunologic: Allergic/Immunologic: Reports no additional allergic/immunologic complaints [facility] Past Medical History Medical History Brain TIA multiple BMI 33.0-33.9,adult Insomnia Paroxysmal atrial fibrillation Gastroesophageal reflux disease Hyperlipidemia patient states previously but recently reported as controlled Post traumatic stress disorder Degenerative disc disease Incomplete paraplegia Sleep apnea History of MRSA infection Depression Anemia Fibromyalgia Scoliosis Arthritis Irritable bowel Hemorrhoids Asthma Anxiety Obesity (BMI 30-39.9) Stroke Hypertension Allergies Surgical History Surgical History S/P insertion of spinal cord stimulator History of tonsillectomy History of total cystectomy History of hernia repair History of cholecystectomy History of appendectomy History of cardiac catheterization History of ileal conduit History of back surgery Family History Family History (Updated 06/14/25 @ 00:15 by Bradley Bedolla RN) Father Cancer Hypertension Mother Acute myocardial infarction <65yo Anxiety Cancer Hypertension Depression Grandparent Cancer Sibling Acute myocardial infarction <65yo A-fib Hypertension Depression Sibling Acute myocardial infarction <65yo Depression Social History Social History (Updated 06/13/25 @ 22:28 by Belkis Machuca APRN) Social History: She is . She has 3 children. She is Disabled. Surrogate medical decision maker: Vicenta Mcnulty. Who is her [id number] Code status: Full code. Smoking status: Never smoker Second hand tobacco smoke exposure: Yes Alcohol intake: never Substance use: never Substance use type: does not use Lack of Transportation: No Lack of Food: Never True Current Housing: I Have Housing Concerned About Future Housing: No Difficulty Paying Gas/Electric Bills: No Difficulty Paying for Meds: No Currently Unemployed: No Education: High School Diploma/GED Difficulty w/ Childcare or Family Care: No Living arrangements: with family Occupation/Education: unemployed Gender identity (if verbalized by the patient): Female Spiritual care concerns: No Meds Home Medications and Allergies Home Medications ?Medication ?Instructions ?Recorded ?Confirmed ?Type alprazolam 0.25 mg tablet 0.25 mg PO TID PRN anxiety #60 tabs 02/17/23 06/13/25 Rx olanzapine 5 mg tablet 5 mg PO DAILY #30 tabs 02/17/23 06/14/25 Rx atorvastatin 10 mg tablet 10 mg PO DAILY #90 tabs 08/22/23 06/13/25 Rx aspirin 81 mg tablet,delayed 81 mg PO DAILY #90 tabs 04/15/24 06/13/25 Rx release (Adult Low Dose Aspirin) ondansetron 4 mg disintegrating 4 mg PO Q8H PRN nausea and 05/11/24 06/14/25 Rx tablet vomiting #20 tabs ropinirole 0.5 mg tablet 1 mg PO BID 12/13/24 06/14/25 History losartan 100 mg tablet 100 mg PO HS 02/01/25 06/14/25 History polyethylene glycol 3350 17 17 g PO DAILY PRN constipation 02/01/25 06/14/25 History gram/dose oral powder (Miralax) furosemide 20 mg tablet See Rx Instructions .Route 03/07/25 06/13/25 Rx .COMPLEX #90 tabs metoprolol succinate 25 mg 25 mg PO DAILY #90 tabs 03/07/25 06/14/25 Rx tablet,extended release 24 hr escitalopram oxalate 20 mg tablet 20 mg PO HS 03/20/25 06/13/25 History cyclobenzaprine 10 mg tablet 10 mg PO TID #30 tabs 03/29/25 06/13/25 Rx zolpidem 5 mg tablet (Ambien) 5 mg PO QHS #30 tabs 05/27/25 06/14/25 Rx diclofenac sodium 1 % topical gel 2 g topical QID PRN pain 06/14/25 06/13/25 History (Voltaren Arthritis Pain) hydrocodone 10 mg-acetaminophen 1 tablet PO Q6H pain 06/14/25 06/14/25 History 325 mg tablet Allergies Allergy/AdvReac Type Severity Reaction Status Date / Time Penicillins Allergy Intermediate Hives Verified 06/13/25 23:57 Sulfa (Sulfonamide Allergy Intermediate Swelling Verified 06/13/25 23:57 Antibiotics) of Lip/Tongue/Throat vancomycin Allergy Intermediate Hives Verified 06/13/25 23:57 adhesive tape Allergy Mild Blister Verified 06/13/25 23:57 Latex, Natural Rubber Allergy Mild Itching Verified 06/13/25 23:57 Vital Signs Vital Signs - 24 hr 06/13/25 15:46 06/13/25 17:49 06/13/25 18:19 Temperature 98.9 F 98.9 F Pulse Rate 93 83 98 Respiratory Rate 20 16 16 Blood Pressure 195/91 H 154/92 H 186/97 H Pulse Oximetry 98 96 96 Oxygen Delivery Room Air 06/13/25 18:46 06/13/25 19:16 06/13/25 20:58 Temperature Pulse Rate 94 93 82 Respiratory Rate 16 17 19 Blood Pressure 199/97 H 185/118 H 176/99 H Pulse Oximetry 95 95 95 Oxygen Delivery Exam Const: General: cooperative, comfortable, no acute distress, well developed, awake, Physically active and well nourished Nutritional Appearance: average body habitus and well nourished Orientation/consciousness: oriented to person, oriented to place, oriented to time and patient oriented x3 Limitations: no limitations HENMT: Head: normal to inspection, No palpable skull fracture present, normocephalic, atraumatic and abrasion Ears: hearing grossly normal bilaterally and external ears normal Eyes: General: appearance normal, both eyes and all related structures Alignment and Position: alignment normal Periorbital: periorbital findings normal Eyelids: eyelids normal Neck: Neck: normal visual inspection, full ROM, no lymphadenopathy, trachea midline and supple Chest: Chest palpation & inspection: normal inspection of the chest Resp: Effort & Inspection: normal respiratory effort Auscultation: clear to auscultation bilaterally Cardio: Palpation: normal PMI Rate: regular rate Rhythm: regular rhythm Heart sounds: S1 normal heart sound present and S2 normal heart sound present Peripheral pulses: Peripheral pulses 2+ throughout GI: Inspection: normal to inspection Percussion: Yes normal to percussion Auscultation: normal bowel sounds Rectal Exam: deferred Urinary Catheter: Urinary Catheter: urine cloudy and other (ileoconduit noted to left lower abdomen.) Back/Spine/Pelvis: Back: no CVA tenderness Cervical Spine: cervical ROM normal Skin: General skin exam: normal color Lesions: no lesions Rashes: no rashes Trauma: no lacerations or abrasions Wounds: no wounds Hair: normal Nails: normal Neuro: General: oriented to person, oriented to place, oriented to time and patient oriented x3 Cranial nerves: Yes Equal, round and reactive pupils present and Yes Normal hearing present Cognition (Neuro): normal cognition Extrem: General: normal to inspection Right upper extremity: normal to inspection and shoulder/upper arm Left upper extremity: normal to inspection and shoulder/upper arm Right lower extremity: normal to inspection Left lower extremity: normal to inspection Other: Incomplete paralysis noted to lower extremities related to a chronic condition. Psych: Appearance: grossly normal Mental Status: mental status grossly normal Speech and movement: Normal speech and movement present Affect: normal affect Attitude: cooperative Thought process: Normal thought process present Thought content: Yes Normal thought content present Insight: Good insight present (Psych) Judgement: Good judgement present (Psych) Results Labs Labs: Short CBC 06/13/25 Range/Units 16:54 WBC 10.2 H (4.5-10.0) K/mm3 Hgb 11.7 L (12.0-15.0) g/dL Hct 35.2 L (37.0-47.0) % Plt Count 256 (150-375) k/mm3 BMP 06/13/25 16:54 Sodium 135 L Potassium 3.2 L Chloride 100 Carbon Dioxide 27 BUN 12 Creatinine 0.72 Glucose 126 H Calcium 8.6 Liver Function 06/13/25 Range/Units 16:54 Total Bilirubin 1.0 (0.2-1.3) mg/dL AST 21 (14-36) U/L ALT 19 (6-35) U/L Alkaline Phosphatase 90 (38-126) U/L Albumin 4.0 (3.5-5.1) g/dL Urine 06/13/25 Range/Units 16:54 Urine Color Yellow (Yellow) Urine Appearance Turbid H (Clear) Urine pH 6.5 (5.0-9.0) Ur Specific Jeannette 1.011 (1.001-1.035) Urine Protein 1+ H (Negative) mg/dL Urine Glucose (UA) Negative (Negative) mg/dL Attestation: I personally reviewed all lab results ECG Interpretation: Test Date: 2025-01-31 15:56:24 Measurements Intervals [place] Rate: 68 P: 42 NM: 177 QRS: 31 QRSD: 90 T: 32 QT: 406 QTc: 435 Interpretive Statements SINUS RHYTHM BORDERLINE ST ABNORMALITY- HIGH LATERAL LEADS BASELINE WANDER- V4-V6 BORDERLINE ECG Compared to ECG 08/02/2024 22:33:20 No significant changes Electronically Signed On 01-31-2025 16:50:41 CDT by Arjun Ender D.O. Imaging CT scan - abdomen: Attestation: I personally reviewed this imaging study Radiologist's impression: ITS Impressions Abdomen/Pelvis CT 06/13/25 18:24 IMPRESSION: Bilateral hydronephrosis, right greater than left. There is ileal conduit noted with urostomy in the anterior abdomen just to the left of midline. 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 No bowel obstruction. All CT scans at this facility are performed using low dose modulation techniques as appropriate to perform exam including the following: automated exposure control; use of iterative reconstruction technique; adjustment of the mA and/or kV according to patient size (this includes techniques or standardized protocols for targeted exams where dose is matched to indication/reason for exam). Quality VTE Prophylaxis VTE prophylaxis: mechanical ordered Assessment and Plan Assessment and plan (1) Acute UTI: Code(s): N39.0 - Urinary tract infection, site not specified Status: Acute Assessment and Plan: -meropenem has been started. She has a history of Enterobacter cloacae complex. Which is sensitive to the meropenem -urology has been consulted to due to her multiple UTIs. She currently has an ileal conduit that she has had for the last 2 years. This appears to be draining well without difficulty. CT scan did show hydronephrosis. -blood and urine cultures are pending. -continue with IV fluid (2) Bilateral hydronephrosis: Code(s): N13.30 - Unspecified hydronephrosis Status: Acute Assessment and Plan: -this appears to be chronic. According to her CT scan on 03/24/2025 this was noted as well. No kidney stones were noted. -her CT today was read as a followingBilateral hydronephrosis, right greater than left. There is ileal conduit noted with urostomy in the anterior abdomen just to the left of midline. 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 No bowel obstruction. (3) Muscle spasm: Code(s): M62.838 - Other muscle spasm Status: Acute Assessment and Plan: -she has incompletely paraplegia her lower extremity -continue with cyclobenzaprine (4) Paroxysmal atrial fibrillation: Code(s): I48.0 - Paroxysmal atrial fibrillation Status: Acute Assessment and Plan: -the patient is currently sinus rhythm. -continue with the metoprolol (5) Depression with anxiety: Code(s): F41.8 - Other specified anxiety disorders Status: Acute Assessment and Plan: -continue Lexapro. -no suicidal ideation -continue with Zyprexa (6) Hypertension: Qualifiers: Hypertension type: primary hypertension Qualified Code(s): I10 - Essential (primary) hypertension Code(s): I10 - Essential (primary) hypertension Status: Chronic Assessment and Plan: -continue with metoprolol -she does not appear to be on any anticoagulation for unknown reasons. -continue with losartan (7) YAJAIRA (obstructive sleep apnea): Code(s): G47.33 - Obstructive sleep apnea (adult) (pediatric) Status: Acute Assessment and Plan: -auto titrate home settings.
[2025-06-13] MEDS: KETOROLAC 15 MG/ML VIAL (*BKC) IV PUSH (21:40)
[2025-06-13] MEDS: KCL 20 MEQ/SW 100 ML 100 ML 50 MEQ IVPB (22:45)
--- NOTE | 2025-06-13 23:04 | WPCEDHO ---
ED Hand Off Checklist All vitals saved:Yes IV Site documented:Yes All med administrations documented:Yes Triage Note Triage Note Pt to ED via c/o stoma painX3- 06/13/25 15:46 5days and concerns of UTI at urinary stoma. Pt reports dark brown discharge from uterus, which is a sign of infection for patient. Stoma placed at [facility] 2 years ago. PMH incomplete paralysis from waist down. Allergies Penicillins Allergy (Intermediate, Verified 06/13/25 15:44) Hives per Pt per RN on 07/26/24 Sulfa (Sulfonamide Antibiotics) Allergy (Intermediate, Verified 06/13/25 15:44) Swelling of Lip/Tongue/Throat and hives vancomycin Allergy (Intermediate, Verified 06/13/25 15:44) Hives per Pt per RN on 07/26/24 adhesive tape Allergy (Mild, Verified 06/13/25 15:44) Blister Latex, Natural Rubber Allergy (Mild, Verified 06/13/25 15:44) Itching Family History (Last Reviewed 06/13/25 @ 22:28 by Belkis Machuca APRN) Father Hypertension Cancer Mother Cancer Hypertension Anxiety Acute myocardial infarction Grandparent Cancer Sibling Hypertension A-fib Acute myocardial infarction Sibling Acute myocardial infarction Active Medications including assessments/comments Potassium Chloride (Kcl 20 Meq/Sw 100 Ml) 100 mls @ 50 mls/hr IVPB ONCE STA Stop: 06/14/25 00:18 Last Admin: 06/13/25 22:45 Dose: 50 mls/hr Documented By: DENY Co-signed By: ARIES Infusion/Titration Document 06/13/25 22:45 DENY (Rec: 06/13/25 22:45 DENY [id number]) Co-signed By Kathrine Powell RN Intake IV Site Peripheral Access Right Forearm Container Volume 100 Waste Amount 0 Dosing Infusion Rate 50 Cumulative Dose Not Applicable Increase/Decrease Started Elapsed Time Elapsed Time ( 0m minutes) Potassium Chloride Infusion Document 06/13/25 22:45 DENY (Rec: 06/13/25 22:45 DENY [id number]) Co-signed By Kathrine Powell RN Infusion Action Potassium Chloride Initiated Infusion Action Administered/Completed Medications Discontinued Medications Hydromorphone HCl (Hydromorphone Hcl Inj (*Crx) 1 Mg/Ml Syr) 0.5 mg IV PUSH ONCE STA Stop: 06/13/25 17:18 Last Admin: 06/13/25 17:34 Dose: 0.5 mg Documented By: BEVERLY Hydromorphone HCl (Hydromorphone Hcl Inj (*Crx) 1 Mg/Ml Syr) 1 mg IV PUSH ONCE STA Stop: 06/13/25 19:15 Last Admin: 06/13/25 20:08 Dose: 1 mg Documented By: DENY Hydromorphone HCl (Hydromorphone Hcl Inj (*Crx) 1 Mg/Ml Syr) 1 mg IV PUSH ONCE STA Stop: 06/13/25 21:07 Last Admin: 06/13/25 21:40 Dose: 1 mg Documented By: DENY Sodium Chloride (Normal Saline Iv) 1,000 mls @ 999 mls/hr IV CONT .Q1H1M STA Stop: 06/13/25 18:17 Last Infusion: 06/13/25 19:24 Dose: Infused Documented By: Admin: 06/13/25 17:31 Dose: 999 mls/hr Documented By: BEVERLY Sodium Chloride (Normal Saline Iv) 1,000 mls @ 999 mls/hr IV CONT .Q1H1M STA Stop: 06/13/25 20:14 Last Admin: 06/13/25 20:08 Dose: 999 mls/hr Documented By: DENY Meropenem 1 gm/ Sodium (Chloride) 100 mls @ 200 mls/hr IVPB ONCE ONE Stop: 06/13/25 19:49 Last Infusion: 06/13/25 20:40 Dose: Infused Documented By: Admin: 06/13/25 20:08 Dose: 200 mls/hr Documented By: DENY Ketorolac Tromethamine (Ketorolac 15 Mg/Ml Vial (*Bkc)) 15 mg IV PUSH ONCE ONE Stop: 06/13/25 21:07 Last Admin: 06/13/25 21:40 Dose: 15 mg Documented By: DENY Ondansetron HCl (Ondansetron Inj 4 Mg/2 Ml Vial) Confirm Administered Dose 4 mg .ROUTE .STK-MED ONE Stop: 06/13/25 17:38 Last Admin: 06/13/25 17:51 Dose: 4 mg Documented By: BEVERLY Interventions/Assessments IV / Saline Lock, Insert Start: 06/13/25 16:24 Freq: STAT Status: Active Protocol: Document 06/13/25 16:58 KNW (Rec: 06/13/25 16:58 KNW [id number]) IV Assessment Peripheral Access Right Forearm IV Catheter Access Initiated IV Insertion Date 06/13/25 IV Insertion Time 16:58 Catheter Gauge 20 IV Insertion 2 Attempts Ultrasound Used for Yes Placement IV Site Assessment WNL IV Care and WNL Maintenance PA: Gastrointestinal Assessment Start: 06/13/25 15:43 Freq: Status: Active Protocol: Document 06/13/25 17:51 KNW (Rec: 06/13/25 17:52 KNW [id number]) GI Assessment Gastrointestinal Nausea,Pain Symptoms Description Tender All Quadrants Bowel Sounds Active Nausea/Vomiting Assessment Nausea Frequency Intermittent Emesis Frequency None Last Vital Signs Temperature 98.9 F 06/13/25 17:49 Pulse Rate 92 06/13/25 22:47 Respiratory Rate 18 06/13/25 22:47 Pulse Oximetry 95 06/13/25 22:47 Blood Pressure 129/102 H 06/13/25 22:47 Blood Pressure Mean 113 06/13/25 22:47 Blood Pressure Position Sitting 06/13/25 15:46 Oxygen Delivery Room Air 06/13/25 15:46 Weight 105 kg 06/13/25 15:46 Last Result - Abnormals Only WBC 10.2 K/mm3 (4.5-10.0) H 06/13/25 16:54 Hgb 11.7 g/dL (12.0-15.0) L 06/13/25 16:54 Hct 35.2 % (37.0-47.0) L 06/13/25 16:54 Immature Gran % (Auto) 0.6 % (0-0.5) H 06/13/25 16:54 Neut % (Auto) 77.5 % (45.5-73.1) H 06/13/25 16:54 Lymph % (Auto) 15.1 % (18.3-44.2) L 06/13/25 16:54 Abs Immat Gran (auto) 0.06 K/mm3 (0.00-0.031) H 06/13/25 16:54 Absolute Neuts (auto) 7.9 K/mm3 (1.3-6.7) H 06/13/25 16:54 Sodium 135 mmol/L (137-145) L 06/13/25 16:54 Potassium 3.2 mmol/L (3.4-5.0) L 06/13/25 16:54 Glucose 126 mg/dL (65-110) H 06/13/25 16:54 C-Reactive Protein 6.6 mg/dL (<1.0) H 06/13/25 19:49 Lipase 13 U/L (23-300) L 06/13/25 16:54 Urine Appearance Turbid (Clear) H 06/13/25 16:54 Urine Protein 1+ mg/dL (Negative) H 06/13/25 16:54 Ur Blood (Man) 2+ (Negative) H 06/13/25 16:54 Leukocyte Esterase Rfl 3+ ERICK/UL (Negative) H 06/13/25 16:54 Urine RBC 11-20 /hpf (0-2) H 06/13/25 16:54 Urine WBC >100 /hpf (0-3) H 06/13/25 16:54 Most Recent Suicide Severity Rating Suicide Severity Rating NO RISK INDICATED 06/13/25 15:46
[2025-06-14 00:04] VITALS: BMI 35.3
[2025-06-14] MEDS: SODIUM CHLORIDE 0.9% IV 1,000 ML 100 ML IV CONT ×2 (01:50→14:01)
[2025-06-14] MEDS: WATER FOR IRRIGATION, STERILE 500 ML BOTTLE (01:52)
[2025-06-14] MEDS: HYDROmorphone HCL INJ (*CRX) 1 MG/ML SYR 0.5 MG IV PUSH ×3 (01:54→22:32)
[2025-06-14 03:23] VITALS: O2SAT 95
[2025-06-14] MEDS: HYDROcodone/acetaminophen (*CRX) 10-325 MG TABLET 1 TAB PO ×2 (04:19→21:20)
[2025-06-14] MEDS: MEROPENEM 1 GM in SODIUM CHLORIDE 0.9% IV 100 ML 200 ML IVPB ×3 (04:29→21:33)
[2025-06-14 06:00] VITALS: BP 102/59; PULSE 72; RESP 20; TEMP 36.9; O2SAT 97
[2025-06-14 06:05] LABS: Hematocrit 29.9 % (37.0-47.0); Hemoglobin 9.6 g/dL (12.0-15.0); Immature Granulocyte Percent A 0.4 % (0-0.5); Lymphocytes Absolute Auto 1.24 K/mm3 (0.9-3.2); Mean Corpuscular HGB Conc 32.1 g/dl (32-36); Mean Corpuscular Hemoglobin 26.9 pg (26-34); Mean Corpuscular Volume 83.8 fl (80-100); Nucleated Red Blood Cells Absolute Auto 0.000 K/mm3 (0.0-0.012); Nucleated Red Blood Cells Perc 0.0 % (0.0-0.2); Platelet Count Result 183 k/mm3 (150-375); Red Blood Count 3.57 M/mm3 (4.2-5.4); White Blood Count 7.9 K/mm3 (4.5-10.0)
[2025-06-14] MEDS: CYCLOBENZAPRINE HCL 10 MG TABLET PO ×3 (06:26→21:20)
[2025-06-14 08:53] LABS: Anion Gap 5 mmol/L (4-12); Blood Urea Nitrogen 11 mg/dL (7-17); Calcium 7.7 mg/dL (8.4-10.2); Carbon Dioxide 26 mmol/L (22-30); Chloride 106 mmol/L (98-107); Estimated CRCL calculation 96 ml/min; Estimated Glomerular Filt Rate > 60; Glucose 89 mg/dL (65-110); Potassium 3.0 mmol/L (3.4-5.0); Sodium 137 mmol/L (137-145)
[2025-06-14 08:55] VITALS: PULSE 72
[2025-06-14] MEDS: ASPIRIN 81 MG ENTERIC TABLET PO (08:55)
[2025-06-14] MEDS: METOPROLOL SUCCINATE EXT REL 25 MG TABCR PO (08:55)
[2025-06-14] MEDS: FUROSEMIDE 20 MG TABLET BY MOUTH (08:55)
[2025-06-14] MEDS: ATORVASTATIN 10 MG TABLET PO (08:55)
[2025-06-14] MEDS: POTASSIUM CHLORIDE 20 MEQ PACKET (FOR LIQUID) 40 MEQ PO (09:36)
[2025-06-14] MEDS: KETOROLAC 30 MG/ML VIAL (*BKC) IV PUSH (09:37)
--- NOTE | 2025-06-14 12:29 | WPDURCON ---
Assessment and Plan Assessment and plan (1) Urinary tract infection: Qualifiers: Urinary tract infection type: site unspecified Hematuria presence: without hematuria Qualified Code(s): N39.0 - Urinary tract infection, site not specified Code(s): N39.0 - Urinary tract infection, site not specified Status: Acute Assessment and Plan: - UA/symptoms concerning for UTI - Continue broad spectrum Abx; once UCx results tailor to susceptibilities (2) Bilateral hydronephrosis: Code(s): N13.30 - Unspecified hydronephrosis Status: Acute Assessment and Plan: - Hydronephrosis is anticipated following ileal conduit - Pt hydro on CT has been stable over time; creatinine stable - No acute intervention recommended - Unlikely source of pain; presentation may reflect pain related to parastomal hernia, however, no bowel obstruction seen on CT Plan Case reviewed with Dr. Terrell Urology Consult Note HPI Date Seen: 06/14/25 Requesting Physician: Gerhard Carmona MD Primary Care Provider: Panchito Walters DO Consult Narrative Narrative: Pt is a 59 year old F with paraplegia 2/2 surgical complications and neurogenic bladder previously managed with SPT c/b recurrent UTIs s/p cystectomy, ileal conduit who presented for abdominal pain for whom urology is consulted for BL hydronephrosis. Pt states that she continues to follow with [facility] urology who has been planning for repair of parastomal hernia. Has not had other issues with ileostomy recently and denies herniation of conduit, gross hematuria, flank pain. Describes lower abdominal pain which worsens with bowel movements or straining. Review of Systems Constitutional: Constitutional: Denies fatigue and Denies weakness ENT: Reports Normal hearing present Cardiovascular: Cardiovascular: Denies chest pain Respiratory: Respiratory: Denies cough and Denies dyspnea Gastrointestinal: Gastrointestinal: Reports abdominal pain Genitourinary: Genitourinary: Denies hematuria Neurologic: Denies Abnormal speech present [facility] Past Medical History Medical History Brain TIA multiple BMI 33.0-33.9,adult Insomnia Paroxysmal atrial fibrillation Gastroesophageal reflux disease Hyperlipidemia patient states previously but recently reported as controlled Post traumatic stress disorder Degenerative disc disease Incomplete paraplegia Sleep apnea History of MRSA infection Depression Anemia Fibromyalgia Scoliosis Arthritis Irritable bowel Hemorrhoids Asthma Anxiety Obesity (BMI 30-39.9) Stroke Hypertension Allergies Surgical History Surgical History S/P insertion of spinal cord stimulator History of tonsillectomy History of total cystectomy History of hernia repair History of cholecystectomy History of appendectomy History of cardiac catheterization History of ileal conduit History of back surgery Family History Family History (Updated 06/14/25 @ 00:15 by Bradley Bedolla RN) Father Cancer Hypertension Mother Acute myocardial infarction <65yo Anxiety Cancer Hypertension Depression Grandparent Cancer Sibling Acute myocardial infarction <65yo A-fib Hypertension Depression Sibling Acute myocardial infarction <65yo Depression Social History Social History (Updated 06/13/25 @ 22:28 by Belkis Machuca APRN) Social History: She is . She has 3 children. She is Disabled. Surrogate medical decision maker: Vicenta Mcnulty. Who is her [id number] Code status: Full code. Smoking status: Never smoker Second hand tobacco smoke exposure: Yes Alcohol intake: never Substance use: never Substance use type: does not use Lack of Transportation: No Lack of Food: Never True Current Housing: I Have Housing Concerned About Future Housing: No Difficulty Paying Gas/Electric Bills: No Difficulty Paying for Meds: No Currently Unemployed: No Education: High School Diploma/GED Difficulty w/ Childcare or Family Care: No Living arrangements: with family Occupation/Education: unemployed Gender identity (if verbalized by the patient): Female Spiritual care concerns: No Meds Home Medications and Allergies Home Medications ?Medication ?Instructions ?Recorded ?Confirmed ?Type alprazolam 0.25 mg tablet 0.25 mg PO TID PRN anxiety #60 tabs 02/17/23 06/13/25 Rx olanzapine 5 mg tablet 5 mg PO DAILY #30 tabs 02/17/23 06/14/25 Rx atorvastatin 10 mg tablet 10 mg PO DAILY #90 tabs 08/22/23 06/13/25 Rx aspirin 81 mg tablet,delayed 81 mg PO DAILY #90 tabs 04/15/24 06/13/25 Rx release (Adult Low Dose Aspirin) ondansetron 4 mg disintegrating 4 mg PO Q8H PRN nausea and 05/11/24 06/14/25 Rx tablet vomiting #20 tabs ropinirole 0.5 mg tablet 1 mg PO BID 12/13/24 06/14/25 History losartan 100 mg tablet 100 mg PO HS 02/01/25 06/14/25 History polyethylene glycol 3350 17 17 g PO DAILY PRN constipation 02/01/25 06/14/25 History gram/dose oral powder (Miralax) furosemide 20 mg tablet See Rx Instructions .Route 03/07/25 06/13/25 Rx .COMPLEX #90 tabs metoprolol succinate 25 mg 25 mg PO DAILY #90 tabs 03/07/25 06/14/25 Rx tablet,extended release 24 hr escitalopram oxalate 20 mg tablet 20 mg PO HS 03/20/25 06/13/25 History cyclobenzaprine 10 mg tablet 10 mg PO TID #30 tabs 03/29/25 06/13/25 Rx zolpidem 5 mg tablet (Ambien) 5 mg PO QHS #30 tabs 05/27/25 06/14/25 Rx diclofenac sodium 1 % topical gel 2 g topical QID PRN pain 06/14/25 06/13/25 History (Voltaren Arthritis Pain) hydrocodone 10 mg-acetaminophen 1 tablet PO Q6H pain 06/14/25 06/14/25 History 325 mg tablet Allergies Allergy/AdvReac Type Severity Reaction Status Date / Time Penicillins Allergy Intermediate Hives Verified 06/13/25 23:57 Sulfa (Sulfonamide Allergy Intermediate Swelling Verified 06/13/25 23:57 Antibiotics) of Lip/Tongue/Throat vancomycin Allergy Intermediate Hives Verified 06/13/25 23:57 adhesive tape Allergy Mild Blister Verified 06/13/25 23:57 Latex, Natural Rubber Allergy Mild Itching Verified 06/13/25 23:57 Vital Signs Vital Signs - 24 hr 06/13/25 15:46 06/13/25 17:49 06/13/25 18:19 Temperature 37.2 C 37.2 C Pulse Rate 93 83 98 Respiratory Rate 20 16 16 Blood Pressure 195/91 H 154/92 H 186/97 H Pulse Oximetry 98 96 96 Oxygen Delivery Room Air 06/13/25 18:46 06/13/25 19:16 06/13/25 20:58 Temperature Pulse Rate 94 93 82 Respiratory Rate 16 17 19 Blood Pressure 199/97 H 185/118 H 176/99 H Pulse Oximetry 95 95 95 Oxygen Delivery 06/13/25 22:01 06/13/25 22:16 06/13/25 22:31 Temperature Pulse Rate 92 84 93 Respiratory Rate 13 11 L 19 Blood Pressure 124/96 H 104/70 138/102 H Pulse Oximetry 94 92 94 Oxygen Delivery 06/13/25 22:47 06/14/25 00:45 06/14/25 03:23 Temperature Pulse Rate 92 Respiratory Rate 18 Blood Pressure 129/102 H Pulse Oximetry 95 95 Oxygen Delivery Autopap Room Air 06/14/25 06:00 06/14/25 08:00 06/14/25 08:55 Temperature 36.9 C Pulse Rate 72 72 Respiratory Rate 20 Blood Pressure 102/59 L Pulse Oximetry 97 Oxygen Delivery Room Air Exam Const: General: comfortable and no acute distress Resp: Effort & Inspection: normal respiratory effort : Other: ileostomy site with healthy pink tissue; no herniation, no duskiness Urinary Catheter: Urinary Catheter: patent and draining and urine clear Neuro: Speech: normal speech Extrem: General: normal to inspection Psych: Speech and movement: Normal speech and movement present Results Labs 06/14/25 05:47 06/14/25 05:47 Labs: Short CBC 06/13/25 06/14/25 Range/Units 16:54 05:47 WBC 10.2 H 7.9 (4.5-10.0) K/mm3 Hgb 11.7 L 9.6 L (12.0-15.0) g/dL Hct 35.2 L 29.9 L (37.0-47.0) % Plt Count 256 183 (150-375) k/mm3 BMP 06/13/25 06/14/25 16:54 05:47 Sodium 135 L 137 Potassium 3.2 L 3.0 L Chloride 100 106 Carbon Dioxide 27 26 BUN 12 11 Creatinine 0.72 0.70 Glucose 126 H 89 Calcium 8.6 7.7 L Liver Function 06/13/25 Range/Units 16:54 Total Bilirubin 1.0 (0.2-1.3) mg/dL AST 21 (14-36) U/L ALT 19 (6-35) U/L Alkaline Phosphatase 90 (38-126) U/L Albumin 4.0 (3.5-5.1) g/dL Urine 06/13/25 Range/Units 16:54 Urine Color Yellow (Yellow) Urine Appearance Turbid H (Clear) Urine pH 6.5 (5.0-9.0) Ur Specific [place] 1.011 (1.001-1.035) Urine Protein 1+ H (Negative) mg/dL Urine Glucose (UA) Negative (Negative) mg/dL
--- NOTE | 2025-06-14 13:42 | PM.IMPN2 ---
Assessment and Plan Assessment and Plan (1) Hypertension: Qualifiers: Hypertension type: primary hypertension Qualified Code(s): I10 - Essential (primary) hypertension Code(s): I10 - Essential (primary) hypertension Status: Chronic (2) Bilateral hydronephrosis: Code(s): N13.30 - Unspecified hydronephrosis Status: Acute (3) Acute UTI: Code(s): N39.0 - Urinary tract infection, site not specified Status: Acute (4) Paraplegia: Code(s): G82.20 - Paraplegia, unspecified Status: Acute Plan 59-year-old female patient who has a history of incomplete paraplegia, multiple abdominal infections, dysfunctional suprapubic catheter, currently has a ileal conduit to left lower quadrant presented with left upper and lower quadrant abdominal pain. CT abdomen shows bilateral hydronephrosis right greater than left, this ileal conduit noted in urostomy in the anterior abdomen. Parastomal hernia containing transverse colon, no bowel obstruction. Patient has history of Enterobacter cloaca the infection in the past which was sensitive to meropenem. (1) Acute UTI+ bilateral hydronephrosis: Complicated UTI History of Enterobacter cloacae complex in the past Continue with meropenem Follow-up urine culture report ID has been consulted Urology has been consulted Pain control Supplement potassium (2) Muscle spasm: -she has incompletely paraplegia her lower extremity -continue with cyclobenzaprine (3) Paroxysmal atrial fibrillation: -the patient is currently sinus rhythm. -continue with the metoprolol Not on anticoagulation due to unclear reasons (4) Depression with anxiety: -continue Lexapro. -continue with Zyprexa (5) Hypertension: -continue with metoprolol, losartan 6. Code status: Full 7. DVT prophylaxis: Heparin subQ 8. Disposition: Pending improvement Time Spent With Patient Time with patient: 25 - 35 minutes Subjective Date/time seen: 06/14/25 13:42 Interval history: Intermittent abdominal pain Review of Systems Review of Systems: All systems reviewed & are unremarkable except as noted in HPI and below Exam Const: General: cooperative and well developed Orientation/consciousness: patient oriented x3 HENMT: Head: normocephalic and atraumatic Eyes: General: appearance normal, both eyes and all related structures Neck: Neck: supple Resp: Auscultation: clear to auscultation bilaterally Cardio: Rate: regular rate Rhythm: regular rhythm GI: Percussion: Yes normal to percussion Auscultation: normal bowel sounds Urinary Catheter: Urinary Catheter: urine cloudy and other (ileoconduit noted to left lower abdomen.) Skin: General skin exam: normal color Neuro: General: patient oriented x3 Cognition (Neuro): normal cognition Extrem: General: normal to inspection Other: Incomplete paralysis noted to lower extremities related to a chronic condition. Psych: Appearance: grossly normal Objective Data Vital Signs Vital Signs: Vital Signs - 24 hr 06/13/25 15:46 06/13/25 17:49 06/13/25 18:19 Temperature 98.9 F 98.9 F Pulse Rate 93 83 98 Respiratory Rate 20 16 16 Blood Pressure 195/91 H 154/92 H 186/97 H Pulse Oximetry 98 96 96 Oxygen Delivery Room Air 06/13/25 18:46 06/13/25 19:16 06/13/25 20:58 Temperature Pulse Rate 94 93 82 Respiratory Rate 16 17 19 Blood Pressure 199/97 H 185/118 H 176/99 H Pulse Oximetry 95 95 95 Oxygen Delivery 06/13/25 22:01 06/13/25 22:16 06/13/25 22:31 Temperature Pulse Rate 92 84 93 Respiratory Rate 13 11 L 19 Blood Pressure 124/96 H 104/70 138/102 H Pulse Oximetry 94 92 94 Oxygen Delivery 06/13/25 22:47 06/14/25 00:45 06/14/25 03:23 Temperature Pulse Rate 92 Respiratory Rate 18 Blood Pressure 129/102 H Pulse Oximetry 95 95 Oxygen Delivery Autopap Room Air 06/14/25 06:00 06/14/25 08:00 06/14/25 08:55 Temperature 98.4 F Pulse Rate 72 72 Respiratory Rate 20 Blood Pressure 102/59 L Pulse Oximetry 97 Oxygen Delivery Room Air Intake/Output Intake/Output: Intake & Output 06/11/25 06/12/25 06/13/25 06/14/25 23:59 23:59 23:59 23:59 Intake Total 1100 1300 Output Total 950 Balance 1100 350 Meds/Results Medications: Active Medications Generic Name Dose Route Start Last Admin Trade Name Freq PRN Reason Stop Dose Admin Acetaminophen 650 mg 06/13/25 21:42 Acetaminophen 325 Mg Tablet PO Q4H PRN Mild Pain (1-3) or Fever Hydrocodone Bitart/Acetaminophen 1 tab 06/14/25 01:30 06/14/25 04:19 Hydrocodone/Acetaminophen (*Crx) 10-325 Mg Tablet PO 1 tab Q6H PRN Administration Pain 7-10 Alprazolam 0.25 mg 06/14/25 01:27 Alprazolam (*Crx) 0.25 Mg Tablet PO TID PRN Anxiety Aspirin 81 mg 06/14/25 09:00 06/14/25 08:55 Aspirin 81 Mg Enteric Tablet PO 81 mg DAILY ANA Administration Atorvastatin Calcium 10 mg 06/14/25 09:00 06/14/25 08:55 Atorvastatin 10 Mg Tablet PO 10 mg DAILY ANA Administration Cyclobenzaprine HCl 10 mg 06/14/25 06:00 06/14/25 06:26 Cyclobenzaprine Hcl 10 Mg Tablet PO 10 mg Q8HR ANA Administration Diclofenac Sodium 1 applic 06/14/25 01:27 Diclofenac Sodium 1% 100 Gm Gel (*Bkc) TOPICAL QID PRN Pain Escitalopram Oxalate 20 mg 06/14/25 21:00 Escitalopram Oxalate 10 Mg Tablet PO HS REPLACED BY [facility] Furosemide 20 mg 06/14/25 09:00 06/14/25 08:55 Furosemide 20 Mg Tablet BY MOUTH 20 mg QAM ANA Administration Hydromorphone HCl 0.5 mg 06/13/25 21:42 06/14/25 01:54 Hydromorphone Hcl Inj (*Crx) 1 Mg/Ml Syr IV PUSH 0.5 mg Q4H PRN Administration Pain Rated 7-10 Sodium Chloride 1,000 mls @ 100 mls/hr 06/13/25 22:40 06/14/25 01:50 Normal Saline Iv IV CONT 06/14/25 22:39 100 mls/hr .Q10H ANA Administration Meropenem 1 gm/ Sodium 100 mls @ 200 mls/hr 06/14/25 05:00 06/14/25 04:29 Chloride IVPB 200 mls/hr Q8HR ANA Administration Ketorolac Tromethamine 30 mg 06/13/25 21:42 06/14/25 09:37 Ketorolac 30 Mg/Ml Vial (*Bkc) IV PUSH 06/18/25 21:41 30 mg Q6H PRN Administration Pain Rated 4-6 Losartan Potassium 100 mg 06/14/25 21:00 Losartan Potassium 100 Mg Tablet PO HS ANA Metoprolol Succinate 25 mg 06/14/25 09:00 06/14/25 08:55 Metoprolol Succinate Ext Rel 25 Mg Tabcr PO 25 mg DAILY ANA Administration Olanzapine 5 mg 06/14/25 09:00 06/14/25 08:55 Olanzapine 5 Mg Tablet PO 5 mg DAILY ANA Administration Polyethylene Glycol 17 gm 06/14/25 01:27 Polyethylene Glycol 3350 17 Gm Powd.Pack PO DAILY PRN Constipation Potassium Chloride 40 meq 06/14/25 09:30 06/14/25 09:36 Potassium Chloride 20 Meq Packet (For Liquid) PO 06/14/25 17:01 40 meq BID ANA Administration Ropinirole HCl 1 mg 06/14/25 04:05 06/14/25 04:19 Ropinirole Hcl 1 Mg Tablet PO 1 mg 1700,2100 ANA Administration Zolpidem Tartrate 5 mg 06/14/25 21:00 Zolpidem Tartrate (*Crx) 5 Mg Tablet PO QHS REPLACED BY [facility] Radiology Results: ITS Impressions Abdomen/Pelvis CT 06/13/25 18:24 IMPRESSION: Bilateral hydronephrosis, right greater than left. There is ileal conduit noted with urostomy in the anterior abdomen just to the left of midline. 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 No bowel obstruction. All CT scans at this facility are performed using low dose modulation techniques as appropriate to perform exam including the following: automated exposure control; use of iterative reconstruction technique; adjustment of the mA and/or kV according to patient size (this includes techniques or standardized protocols for targeted exams where dose is matched to indication/reason for exam). Labs Labs: Laboratory Results - last 24 hr 06/13/25 06/13/25 06/14/25 16:54 19:49 05:47 WBC 10.2 H 7.9 RBC 4.28 3.57 L Hgb 11.7 L 9.6 L Hct 35.2 L 29.9 L MCV 82.2 83.8 MCH 27.3 26.9 MCHC 33.2 32.1 RDW 14.3 14.2 Plt Count 256 183 MPV 9.4 9.5 Immature Gran % (Auto) 0.6 H 0.4 Neut % (Auto) 77.5 H 72.0 Lymph % (Auto) 15.1 L 15.8 L [place] % (Auto) 5.6 9.5 H Eos % (Auto) 0.7 1.8 Baso % (Auto) 0.5 0.5 Lymph # (Auto) 1.53 1.24 [place] # (Auto) 0.6 0.8 H Eos # (Auto) 0.1 0.1 Baso # (Auto) 0.1 0.0 Abs Immat Gran (auto) 0.06 H 0.03 Absolute Neuts (auto) 7.9 H 5.7 Absolute Nucleated RBC 0.000 0.000 Nucleated RBC % 0.0 0.0 Sodium 135 L 137 Potassium 3.2 L 3.0 L Chloride 100 106 Carbon Dioxide 27 26 Anion Gap 8 5 BUN 12 11 Creatinine 0.72 0.70 Estim Creat Clear Calc 93 96 Estimated GFR > 60 > 60 Glucose 126 H 89 Lactic Acid 1.0 0.7 Calcium 8.6 7.7 L Total Bilirubin 1.0 AST 21 ALT 19 Alkaline Phosphatase 90 C-Reactive Protein 6.6 H Total Protein 7.7 Albumin 4.0 Lipase 13 L Urine Color Yellow Urine Appearance Turbid H Urine pH 6.5 Ur Specific [place] 1.011 Urine Protein 1+ H Urine Glucose (UA) Negative Urine Ketones Negative Ur Blood (Man) 2+ H Urine Nitrate Negative Urine Bilirubin Negative Urine Urobilinogen 0.2 Add Ur Microanalysis Reviewed Leukocyte Esterase Rfl 3+ H Urine RBC 11-20 H Urine WBC >100 H Ur Squamous Epith Cells None seen Urine Bacteria 4+ Urine Casts 3-5 Quality VTE Prophylaxis VTE prophylaxis: pharmacologic ordered
[2025-06-14 14:00] VITALS: BP 118/53; PULSE 73; RESP 16; TEMP 36.1; O2SAT 97
[2025-06-14] MEDS: POTASSIUM CHLORIDE 20 MEQ ER TABLET 40 MEQ PO (17:03)
--- NOTE | 2025-06-14 18:52 | WPDIDCN ---
Assessment and Plan Assessment and plan (1) Urinary tract infection: Qualifiers: Hematuria presence: without hematuria Urinary tract infection type: site unspecified Qualified Code(s): N39.0 - Urinary tract infection, site not specified Code(s): N39.0 - Urinary tract infection, site not specified Status: Acute Assessment and Plan: ASSESSMENT: 1. complicated UTI iso ileal conduit 2. anxiety and depression 3. obesity 4. Afib 5. HTN, HL, incomplete paralysis RECOMMENDATIONS: -agree with meropenem for now -f/u on urine and blood cxs and tailor abx further d/w pharmacy Pt was seen via video telehealth consultation with the assistance of staff. Chart, data and patient info reviewed. Patient was located at [facility] while I was in my [place] office. Pt gave consent. HPI Data of Consult Date/Time: 06/14/25 18:52 Requesting Physician: Gerhard Carmona MD Primary Care Provider: Panchito Walters DO Consult Narrative Reason for consult: complicated UTI Narrative: Angelina Mcnulty is a 59 year old female with pmhx/o incomplete paraplegia, s/p ileal conduit, HTN, HL, obesity, Afib, depression/anxiety, presented with abd pain and pyuria. Started on meropenem for UTI. FORMERLY [facility], [facility] Past Medical History Medical History Brain TIA multiple BMI 33.0-33.9,adult Insomnia Paroxysmal atrial fibrillation Gastroesophageal reflux disease Hyperlipidemia patient states previously but recently reported as controlled Post traumatic stress disorder Degenerative disc disease Incomplete paraplegia Sleep apnea History of MRSA infection Depression Anemia Fibromyalgia Scoliosis Arthritis Irritable bowel Hemorrhoids Asthma Anxiety Obesity (BMI 30-39.9) Stroke Hypertension Allergies Surgical History Surgical History S/P insertion of spinal cord stimulator History of tonsillectomy History of total cystectomy History of hernia repair History of cholecystectomy History of appendectomy History of cardiac catheterization History of ileal conduit History of back surgery Family History Family History (Updated 06/14/25 @ 00:15 by Bradley Bedolla, VITALIY) Father Cancer Hypertension Mother Acute myocardial infarction <65yo Anxiety Cancer Hypertension Depression Grandparent Cancer Sibling Acute myocardial infarction <65yo A-fib Hypertension Depression Sibling Acute myocardial infarction <65yo Depression Social History Social History (Updated 06/13/25 @ 22:28 by Belkis Machuca, BALJEET) Social History: She is . She has 3 children. She is Disabled. Surrogate medical decision maker: Vicenta Mcnulty. Who is her [id number] Code status: Full code. Smoking status: Never smoker Second hand tobacco smoke exposure: Yes Alcohol intake: never Substance use: never Substance use type: does not use Lack of Transportation: No Lack of Food: Never True Current Housing: I Have Housing Concerned About Future Housing: No Difficulty Paying Gas/Electric Bills: No Difficulty Paying for Meds: No Currently Unemployed: No Education: High School Diploma/GED Difficulty w/ Childcare or Family Care: No Living arrangements: with family Occupation/Education: unemployed Gender identity (if verbalized by the patient): Female Spiritual care concerns: No Meds Home Medications and Allergies Home Medications ?Medication ?Instructions ?Recorded ?Confirmed ?Type alprazolam 0.25 mg tablet 0.25 mg PO TID PRN anxiety #60 tabs 02/17/23 06/13/25 Rx olanzapine 5 mg tablet 5 mg PO DAILY #30 tabs 02/17/23 06/14/25 Rx atorvastatin 10 mg tablet 10 mg PO DAILY #90 tabs 08/22/23 06/13/25 Rx aspirin 81 mg tablet,delayed 81 mg PO DAILY #90 tabs 04/15/24 06/13/25 Rx release (Adult Low Dose Aspirin) ondansetron 4 mg disintegrating 4 mg PO Q8H PRN nausea and 05/11/24 06/14/25 Rx tablet vomiting #20 tabs ropinirole 0.5 mg tablet 1 mg PO BID 12/13/24 06/14/25 History losartan 100 mg tablet 100 mg PO HS 02/01/25 06/14/25 History polyethylene glycol 3350 17 17 g PO DAILY PRN constipation 02/01/25 06/14/25 History gram/dose oral powder (Miralax) furosemide 20 mg tablet See Rx Instructions .Route 03/07/25 06/13/25 Rx .COMPLEX #90 tabs metoprolol succinate 25 mg 25 mg PO DAILY #90 tabs 03/07/25 06/14/25 Rx tablet,extended release 24 hr escitalopram oxalate 20 mg tablet 20 mg PO HS 03/20/25 06/13/25 History cyclobenzaprine 10 mg tablet 10 mg PO TID #30 tabs 03/29/25 06/13/25 Rx zolpidem 5 mg tablet (Ambien) 5 mg PO QHS #30 tabs 05/27/25 06/14/25 Rx diclofenac sodium 1 % topical gel 2 g topical QID PRN pain 06/14/25 06/13/25 History (Voltaren Arthritis Pain) hydrocodone 10 mg-acetaminophen 1 tablet PO Q6H pain 06/14/25 06/14/25 History 325 mg tablet Allergies Allergy/AdvReac Type Severity Reaction Status Date / Time Penicillins Allergy Intermediate Hives Verified 06/13/25 23:57 Sulfa (Sulfonamide Allergy Intermediate Swelling Verified 06/13/25 23:57 Antibiotics) of Lip/Tongue/Throat vancomycin Allergy Intermediate Hives Verified 06/13/25 23:57 adhesive tape Allergy Mild Blister Verified 06/13/25 23:57 Latex, Natural Rubber Allergy Mild Itching Verified 06/13/25 23:57 Vital Signs Vital Signs - 24 hr 06/13/25 19:16 06/13/25 20:58 06/13/25 22:01 Temperature Pulse Rate 93 82 92 Respiratory Rate 17 19 13 Blood Pressure 185/118 H 176/99 H 124/96 H Pulse Oximetry 95 95 94 Oxygen Delivery 06/13/25 22:16 06/13/25 22:31 06/13/25 22:47 Temperature Pulse Rate 84 93 92 Respiratory Rate 11 L 19 18 Blood Pressure 104/70 138/102 H 129/102 H Pulse Oximetry 92 94 95 Oxygen Delivery 06/14/25 00:45 06/14/25 03:23 06/14/25 06:00 Temperature 98.4 F Pulse Rate 72 Respiratory Rate 20 Blood Pressure 102/59 L Pulse Oximetry 95 97 Oxygen Delivery Autopap Room Air 06/14/25 08:00 06/14/25 08:55 06/14/25 14:00 Temperature 96.9 F L Pulse Rate 72 73 Respiratory Rate 16 Blood Pressure 118/53 L Pulse Oximetry 97 Oxygen Delivery Room Air Exam Narrative: NAD, non-toxic, on room air abd: +urostomy, +tender Results Labs 06/14/25 05:47 06/14/25 05:47 Labs: Short CBC 06/14/25 Range/Units 05:47 WBC 7.9 (4.5-10.0) K/mm3 Hgb 9.6 L (12.0-15.0) g/dL Hct 29.9 L (37.0-47.0) % Plt Count 183 (150-375) k/mm3 [facility] 06/14/25 05:47 Sodium 137 Potassium 3.0 L Chloride 106 Carbon Dioxide 26 BUN 11 Creatinine 0.70 Glucose 89 Calcium 7.7 L
[2025-06-14 20:14] VITALS: BP 158/78; PULSE 82; RESP 18; TEMP 36.8; O2SAT 99
[2025-06-14 20:30] VITALS: O2SAT 98
[2025-06-14] MEDS: ZOLPIDEM TARTRATE (*CRX) 5 MG TABLET PO (21:20)
[2025-06-14] MEDS: LOSARTAN POTASSIUM 100 MG TABLET PO (21:21)
[2025-06-14] MEDS: ESCITALOPRAM OXALATE 10 MG TABLET 20 MG PO (21:21)
[2025-06-15 01:18] VITALS: O2SAT 98
[2025-06-15] MEDS: CYCLOBENZAPRINE HCL 10 MG TABLET PO ×3 (05:23→21:07)
[2025-06-15] MEDS: MEROPENEM 1 GM in SODIUM CHLORIDE 0.9% IV 100 ML 200 ML IVPB ×3 (05:24→21:09)
[2025-06-15] MEDS: HYDROmorphone HCL INJ (*CRX) 1 MG/ML SYR 0.5 MG IV PUSH ×4 (05:25→21:07)
[2025-06-15 06:00] VITALS: BP 115/59; PULSE 72; RESP 20; TEMP 36.8; O2SAT 99
[2025-06-15 06:26] LABS: Hematocrit 31.7 % (37.0-47.0); Hemoglobin 10.1 g/dL (12.0-15.0); Immature Granulocyte Percent A 0.6 % (0-0.5); Lymphocytes Absolute Auto 1.43 K/mm3 (0.9-3.2); Mean Corpuscular HGB Conc 31.9 g/dl (32-36); Mean Corpuscular Hemoglobin 27.2 pg (26-34); Mean Corpuscular Volume 85.2 fl (80-100); Nucleated Red Blood Cells Absolute Auto 0.000 K/mm3 (0.0-0.012); Nucleated Red Blood Cells Perc 0.0 % (0.0-0.2); Platelet Count Result 207 k/mm3 (150-375); Red Blood Count 3.72 M/mm3 (4.2-5.4); White Blood Count 5.1 K/mm3 (4.5-10.0)
[2025-06-15 06:52] LABS: Anion Gap 6 mmol/L (4-12); Blood Urea Nitrogen 10 mg/dL (7-17); Calcium 7.9 mg/dL (8.4-10.2); Carbon Dioxide 23 mmol/L (22-30); Chloride 110 mmol/L (98-107); Estimated CRCL calculation 87 ml/min; Estimated Glomerular Filt Rate > 60; Glucose 100 mg/dL (65-110); Potassium 3.9 mmol/L (3.4-5.0); Sodium 139 mmol/L (137-145)
[2025-06-15] MEDS: KETOROLAC 30 MG/ML VIAL (*BKC) IV PUSH (09:08)
[2025-06-15 09:15] VITALS: PULSE 72
[2025-06-15] MEDS: FUROSEMIDE 20 MG TABLET BY MOUTH (09:15)
[2025-06-15] MEDS: METOPROLOL SUCCINATE EXT REL 25 MG TABCR PO (09:15)
[2025-06-15] MEDS: ATORVASTATIN 10 MG TABLET PO (09:15)
[2025-06-15] MEDS: ASPIRIN 81 MG ENTERIC TABLET PO (09:15)
--- NOTE | 2025-06-15 09:58 | P.PNINF_ITS ---
Progress Note: A&P Assessment and Plan (1) Urinary tract infection: Qualifiers: Hematuria presence: without hematuria Urinary tract infection type: site unspecified Qualified Code(s): N39.0 - Urinary tract infection, site not specified Code(s): N39.0 - Urinary tract infection, site not specified Status: Acute Assessment and Plan: ASSESSMENT: 1. complicated UTI iso ileal conduit 2. anxiety and depression 3. obesity 4. Afib 5. HTN, HL, incomplete paralysis RECOMMENDATIONS: -agree with meropenem for now -f/u on urine cx-->so far NGTD -blood cxs pending d/w pharmacy Pt was seen via video telehealth consultation with the assistance of staff. Chart, data and patient info reviewed. Patient was located at [facility] while I was in my [place] office. Pt gave consent. Subjective Date/time seen: 06/15/25 09:58 Interval history: no fever no leukocytosis Exam Narrative: NAD, non-toxic Objective Data Vital Signs Vital Signs: Vital Signs - 24 hr 06/14/25 14:00 06/14/25 20:00 06/14/25 20:14 Temperature 96.9 F L 98.2 F Pulse Rate 73 82 Respiratory Rate 16 18 Blood Pressure 118/53 L 158/78 H Pulse Oximetry 97 99 Oxygen Delivery Room Air 06/14/25 20:30 06/15/25 01:18 06/15/25 04:21 Temperature Pulse Rate Respiratory Rate Blood Pressure Pulse Oximetry 98 98 Oxygen Delivery Room Air Autopap Autopap 06/15/25 06:00 06/15/25 09:15 Temperature 98.3 F Pulse Rate 72 72 Respiratory Rate 20 Blood Pressure 115/59 L Pulse Oximetry 99 Oxygen Delivery Intake/Output Intake/Output: Intake & Output 06/12/25 06/13/25 06/14/25 06/15/25 23:59 23:59 23:59 23:59 Intake Total 1100 3080 Output Total 950 1450 Balance 1100 2130 -1450 Meds/Results Medications: Active Medications Generic Name Dose Route Start Last Admin Trade Name Freq PRN Reason Stop Dose Admin Acetaminophen 650 mg 06/13/25 21:42 Acetaminophen 325 Mg Tablet PO Q4H PRN Mild Pain (1-3) or Fever Hydrocodone Bitart/Acetaminophen 1 tab 06/14/25 01:30 06/14/25 21:20 Hydrocodone/Acetaminophen (*Crx) 10-325 Mg Tablet PO 1 tab Q6H PRN Administration Pain 7-10 Alprazolam 0.25 mg 06/14/25 01:27 Alprazolam (*Crx) 0.25 Mg Tablet PO TID PRN Anxiety Aspirin 81 mg 06/14/25 09:00 06/15/25 09:15 Aspirin 81 Mg Enteric Tablet PO 81 mg DAILY ANA Administration Atorvastatin Calcium 10 mg 06/14/25 09:00 06/15/25 09:15 Atorvastatin 10 Mg Tablet PO 10 mg DAILY ANA Administration Cyclobenzaprine HCl 10 mg 06/14/25 06:00 06/15/25 05:23 Cyclobenzaprine Hcl 10 Mg Tablet PO 10 mg Q8HR ANA Administration Diclofenac Sodium 1 applic 06/14/25 01:27 Diclofenac Sodium 1% 100 Gm Gel (*Bkc) TOPICAL QID PRN Pain Escitalopram Oxalate 20 mg 06/14/25 21:00 06/14/25 21:21 Escitalopram Oxalate 10 Mg Tablet PO 20 mg HS ANA Administration Furosemide 20 mg 06/14/25 09:00 06/15/25 09:15 Furosemide 20 Mg Tablet BY MOUTH 20 mg QAM ANA Administration Heparin Sodium (Porcine) 5,000 units 06/14/25 14:00 06/15/25 05:24 Heparin Sodium 5,000 Units/Ml Vial SUB-Q 5,000 units Q8HR ANA Administration Hydromorphone HCl 0.5 mg 06/13/25 21:42 06/15/25 05:25 Hydromorphone Hcl Inj (*Crx) 1 Mg/Ml Syr IV PUSH 0.5 mg Q4H PRN Administration Pain Rated 7-10 Meropenem 1 gm/ Sodium 100 mls @ 200 mls/hr 06/14/25 05:00 06/15/25 05:24 Chloride IVPB 200 mls/hr Q8HR ANA Administration Ketorolac Tromethamine 30 mg 06/13/25 21:42 06/15/25 09:08 Ketorolac 30 Mg/Ml Vial (*Bkc) IV PUSH 06/18/25 21:41 30 mg Q6H PRN Administration Pain Rated 4-6 Losartan Potassium 100 mg 06/14/25 21:00 06/14/25 21:21 Losartan Potassium 100 Mg Tablet PO 100 mg HS ANA Administration Metoprolol Succinate 25 mg 06/14/25 09:00 06/15/25 09:15 Metoprolol Succinate Ext Rel 25 Mg Tabcr PO 25 mg DAILY ANA Administration Olanzapine 5 mg 06/14/25 09:00 06/15/25 09:15 Olanzapine 5 Mg Tablet PO 5 mg DAILY ANA Administration Polyethylene Glycol 17 gm 06/14/25 01:27 Polyethylene Glycol 3350 17 Gm Powd.Pack PO DAILY PRN Constipation Ropinirole HCl 1 mg 06/14/25 04:05 06/14/25 21:25 Ropinirole Hcl 1 Mg Tablet PO 1 mg 1700,2100 ANA Administration Zolpidem Tartrate 5 mg 06/14/25 21:00 06/14/25 21:20 Zolpidem Tartrate (*Crx) 5 Mg Tablet PO 5 mg QHS ANA Administration Radiology Results: ITS Impressions Abdomen/Pelvis CT 06/13/25 18:24 IMPRESSION: Bilateral hydronephrosis, right greater than left. There is ileal conduit noted with urostomy in the anterior abdomen just to the left of midline. 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 No bowel obstruction. All CT scans at this facility are performed using low dose modulation techniques as appropriate to perform exam including the following: automated exposure control; use of iterative reconstruction technique; adjustment of the mA and/or kV according to patient size (this includes techniques or standardized protocols for targeted exams where dose is matched to indication/reason for exam). Labs Labs: Laboratory Results - last 24 hr 06/15/25 06:04 WBC 5.1 RBC 3.72 L Hgb 10.1 L Hct 31.7 L MCV 85.2 MCH 27.2 MCHC 31.9 L RDW 14.6 H Plt Count 207 MPV 9.5 Immature Gran % (Auto) 0.6 H Neut % (Auto) 59.7 Lymph % (Auto) 27.8 [place] % (Auto) 8.0 Eos % (Auto) 2.7 Baso % (Auto) 1.2 Lymph # (Auto) 1.43 [place] # (Auto) 0.4 Eos # (Auto) 0.1 Baso # (Auto) 0.1 Abs Immat Gran (auto) 0.03 Absolute Neuts (auto) 3.1 Absolute Nucleated RBC 0.000 Nucleated RBC % 0.0 Sodium 139 Potassium 3.9 Chloride 110 H Carbon Dioxide 23 Anion Gap 6 BUN 10 Creatinine 0.78 Estim Creat Clear Calc 87 Estimated GFR > 60 Glucose 100 Lactic Acid 0.9 Calcium 7.9 L
--- NOTE | 2025-06-15 11:44 | PM.IMPN2 ---
Assessment and Plan Assessment and Plan (1) UTI (urinary tract infection): Code(s): N39.0 - Urinary tract infection, site not specified Status: Acute Assessment and Plan: 06/13- UA showed 3+ Leukocyte,1+ protein, and high turbid 2+. Patient has a PMH of a UC that showed Enterobacter cloacae complex on 03/20 and treated with Meropenem Will continue meropenem Pain managed with hydromorphone ID is following Urology is following (2) Hydronephrosis: Code(s): N13.30 - Unspecified hydronephrosis Status: Acute Assessment and Plan: Urology consulted on 06/14 Hydronephrosis is anticipated following ileal conduit Pt hydro on CT has been stable over time; creatinine stable No acute intervention recommended Unlikely source of pain; presentation may reflect pain related to parastomal hernia, however, no bowel obstruction seen on CT Will continue to follow Urology consult (3) History of ileal conduit: Code(s): Z98.890 - Other specified postprocedural states Status: Acute Assessment and Plan: Chronic condition see above (4) Depression with anxiety: Code(s): F41.8 - Other specified anxiety disorders Status: Acute Assessment and Plan: Depression and anxiety stable will continue lexapro and zyprexa (5) Hypertension: Qualifiers: Hypertension type: primary hypertension Qualified Code(s): I10 - Essential (primary) hypertension Code(s): I10 - Essential (primary) hypertension Status: Chronic Assessment and Plan: continue metoprolol and losartan Subjective Date/time seen: 06/15/25 09:44 Interval history: 59-year-old female patient who has a history of incomplete paraplegia, multiple abdominal infections, dysfunctional suprapubic catheter, currently has a ileal conduit to left lower quadrant presented with left upper and lower quadrant abdominal pain. 06/15 Patient reports she still has intermitted pain in the left upper and lower quadrant abdominal regions. Patient reports some back pain, decrease in appetite. Patient denies nausea and vomiting. Pt denies fever, chills, diarrhea, and constipation. Patient reports she gets frequent UTIs and was treated in February for the same compliactions during this visit. Review of Systems Review of Systems: All systems reviewed & are unremarkable except as noted in HPI and below Exam Const: General: comfortable and no acute distress Eyes: General: appearance normal, both eyes and all related structures Pupils: Equal, round and reactive pupils present Neck: Neck: supple and no JVD Thyroid: thyroid normal Resp: Effort & Inspection: normal respiratory effort Auscultation: clear to auscultation bilaterally Cardio: Rate: regular rate Rhythm: regular rhythm GI: GI Palp: Yes Soft to palpation : General: Yes CVA tenderness Urinary Catheter: Urinary Catheter: patent and draining and urine clear Skin: General skin exam: normal color Neuro: Motor exam (neuro): Motor abnormalites present (Incomplete paralysis noted to lower extremities ) Psych: Mental Status: mental status grossly normal Affect: normal affect Objective Data Vital Signs Vital Signs: Vital Signs - 24 hr 06/14/25 14:00 06/14/25 20:00 06/14/25 20:14 Temperature 96.9 F L 98.2 F Pulse Rate 73 82 Respiratory Rate 16 18 Blood Pressure 118/53 L 158/78 H Pulse Oximetry 97 99 Oxygen Delivery Room Air 06/14/25 20:30 06/15/25 01:18 06/15/25 04:21 Temperature Pulse Rate Respiratory Rate Blood Pressure Pulse Oximetry 98 98 Oxygen Delivery Room Air Autopap Autopap 06/15/25 06:00 06/15/25 09:15 Temperature 98.3 F Pulse Rate 72 72 Respiratory Rate 20 Blood Pressure 115/59 L Pulse Oximetry 99 Oxygen Delivery Intake/Output Intake/Output: Intake & Output 06/12/25 06/13/25 06/14/25 06/15/25 23:59 23:59 23:59 23:59 Intake Total 1100 3080 118 Output Total 950 1450 Balance 1100 2130 -1332 Meds/Results Medications: Active Medications Generic Name Dose Route Start Last Admin Trade Name Freq PRN Reason Stop Dose Admin Acetaminophen 650 mg 06/13/25 21:42 Acetaminophen 325 Mg Tablet PO Q4H PRN Mild Pain (1-3) or Fever Hydrocodone Bitart/Acetaminophen 1 tab 06/14/25 01:30 06/14/25 21:20 Hydrocodone/Acetaminophen (*Crx) 10-325 Mg Tablet PO 1 tab Q6H PRN Administration Pain 7-10 Alprazolam 0.25 mg 06/14/25 01:27 Alprazolam (*Crx) 0.25 Mg Tablet PO TID PRN Anxiety Aspirin 81 mg 06/14/25 09:00 06/15/25 09:15 Aspirin 81 Mg Enteric Tablet PO 81 mg DAILY ANA Administration Atorvastatin Calcium 10 mg 06/14/25 09:00 06/15/25 09:15 Atorvastatin 10 Mg Tablet PO 10 mg DAILY ANA Administration Cyclobenzaprine HCl 10 mg 06/14/25 06:00 06/15/25 05:23 Cyclobenzaprine Hcl 10 Mg Tablet PO 10 mg Q8HR ANA Administration Diclofenac Sodium 1 applic 06/14/25 01:27 Diclofenac Sodium 1% 100 Gm Gel (*Bkc) TOPICAL QID PRN Pain Escitalopram Oxalate 20 mg 06/14/25 21:00 06/14/25 21:21 Escitalopram Oxalate 10 Mg Tablet PO 20 mg HS ANA Administration Furosemide 20 mg 06/14/25 09:00 06/15/25 09:15 Furosemide 20 Mg Tablet BY MOUTH 20 mg QAM ANA Administration Heparin Sodium (Porcine) 5,000 units 06/14/25 14:00 06/15/25 05:24 Heparin Sodium 5,000 Units/Ml Vial SUB-Q 5,000 units Q8HR ANA Administration Hydromorphone HCl 0.5 mg 06/13/25 21:42 06/15/25 10:47 Hydromorphone Hcl Inj (*Crx) 1 Mg/Ml Syr IV PUSH 0.5 mg Q4H PRN Administration Pain Rated 7-10 Meropenem 1 gm/ Sodium 100 mls @ 200 mls/hr 06/14/25 05:00 06/15/25 05:24 Chloride IVPB 200 mls/hr Q8HR ANA Administration Ketorolac Tromethamine 30 mg 06/13/25 21:42 06/15/25 09:08 Ketorolac 30 Mg/Ml Vial (*Bkc) IV PUSH 06/18/25 21:41 30 mg Q6H PRN Administration Pain Rated 4-6 Losartan Potassium 100 mg 06/14/25 21:00 06/14/25 21:21 Losartan Potassium 100 Mg Tablet PO 100 mg HS ANA Administration Metoprolol Succinate 25 mg 06/14/25 09:00 06/15/25 09:15 Metoprolol Succinate Ext Rel 25 Mg Tabcr PO 25 mg DAILY ANA Administration Olanzapine 5 mg 06/14/25 09:00 06/15/25 09:15 Olanzapine 5 Mg Tablet PO 5 mg DAILY ANA Administration Polyethylene Glycol 17 gm 06/14/25 01:27 Polyethylene Glycol 3350 17 Gm Powd.Pack PO DAILY PRN Constipation Ropinirole HCl 1 mg 06/14/25 04:05 06/14/25 21:25 Ropinirole Hcl 1 Mg Tablet PO 1 mg 1700,2100 ANA Administration Zolpidem Tartrate 5 mg 06/14/25 21:00 06/14/25 21:20 Zolpidem Tartrate (*Crx) 5 Mg Tablet PO 5 mg QHS ANA Administration Radiology Results: ITS Impressions Abdomen/Pelvis CT 06/13/25 18:24 IMPRESSION: Bilateral hydronephrosis, right greater than left. There is ileal conduit noted with urostomy in the anterior abdomen just to the left of midline. 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 No bowel obstruction. All CT scans at this facility are performed using low dose modulation techniques as appropriate to perform exam including the following: automated exposure control; use of iterative reconstruction technique; adjustment of the mA and/or kV according to patient size (this includes techniques or standardized protocols for targeted exams where dose is matched to indication/reason for exam). Labs Labs: Laboratory Results - last 24 hr 06/15/25 06:04 WBC 5.1 RBC 3.72 L Hgb 10.1 L Hct 31.7 L MCV 85.2 MCH 27.2 MCHC 31.9 L RDW 14.6 H Plt Count 207 MPV 9.5 Immature Gran % (Auto) 0.6 H Neut % (Auto) 59.7 Lymph % (Auto) 27.8 [place] % (Auto) 8.0 Eos % (Auto) 2.7 Baso % (Auto) 1.2 Lymph # (Auto) 1.43 [place] # (Auto) 0.4 Eos # (Auto) 0.1 Baso # (Auto) 0.1 Abs Immat Gran (auto) 0.03 Absolute Neuts (auto) 3.1 Absolute Nucleated RBC 0.000 Nucleated RBC % 0.0 Sodium 139 Potassium 3.9 Chloride 110 H Carbon Dioxide 23 Anion Gap 6 BUN 10 Creatinine 0.78 Estim Creat Clear Calc 87 Estimated GFR > 60 Glucose 100 Lactic Acid 0.9 Calcium 7.9 L Quality VTE Prophylaxis VTE prophylaxis: pharmacologic ordered
[2025-06-15 14:00] VITALS: BP 131/77; PULSE 70; RESP 18; TEMP 36; O2SAT 97
--- NOTE | 2025-06-15 16:40 | WPDUROPN2 ---
Progress Note: A&P Assessment and Plan (1) Urinary tract infection: Qualifiers: Urinary tract infection type: site unspecified Hematuria presence: without hematuria Qualified Code(s): N39.0 - Urinary tract infection, site not specified Code(s): N39.0 - Urinary tract infection, site not specified Status: Acute Assessment and Plan: - Urine culture preliminary shows gram negative bacilli - Continue broad spectrum Abx; once UCx results tailor to susceptibilities (2) Bilateral hydronephrosis: Code(s): N13.30 - Unspecified hydronephrosis Status: Acute Assessment and Plan: - Hydronephrosis is anticipated following ileal conduit - Pt hydro on CT has been stable over time; creatinine stable - No urologic surgical intervention recommended - will follow peripherally. contact urology if needed Subjective Subjective Date/Time Seen: 06/15/25 16:40 Interval history: 59-year-old female patient who has a history of incomplete paraplegia, multiple abdominal infections, dysfunctional suprapubic catheter, currently has a ileal conduit to left lower quadrant with chronic stable hydronephrosis. She reports she is well today. no concerns at this time. Review of Systems Constitutional: Constitutional: Denies fatigue and Denies weakness ENT: Reports Normal hearing present Cardiovascular: Cardiovascular: Denies chest pain and Denies dyspnea Respiratory: Respiratory: Denies cough and Denies dyspnea Gastrointestinal: Gastrointestinal: Reports abdominal pain Genitourinary: Genitourinary: Denies hematuria Neurologic: Reports Normal hearing present, Denies Abnormal speech present and Denies weakness Endocrine: Endocrine: Denies fatigue Exam Const: General: comfortable and no acute distress Resp: Effort & Inspection: normal respiratory effort : Other: ileostomy site with healthy pink tissue; no herniation, no duskiness Urinary Catheter: Urinary Catheter: patent and draining and urine clear Neuro: Cranial nerves: Yes Normal hearing present Speech: normal speech and No Abnormal speech present Extrem: General: normal to inspection Psych: Speech and movement: Normal speech and movement present Objective Data Vital Signs Vital Signs: Vital Signs - 24 hr 06/14/25 20:00 06/14/25 20:14 06/14/25 20:30 Temperature 98.2 F Pulse Rate 82 Respiratory Rate 18 Blood Pressure 158/78 H Pulse Oximetry 99 98 Oxygen Delivery Room Air Room Air 06/15/25 01:18 06/15/25 04:21 06/15/25 06:00 Temperature 98.3 F Pulse Rate 72 Respiratory Rate 20 Blood Pressure 115/59 L Pulse Oximetry 98 99 Oxygen Delivery Autopap Autopap 06/15/25 08:00 06/15/25 09:15 06/15/25 14:00 Temperature 96.8 F L Pulse Rate 72 70 Respiratory Rate 18 Blood Pressure 131/77 Pulse Oximetry 97 Oxygen Delivery Room Air Intake/Output Intake/Output: Intake & Output 06/12/25 06/13/25 06/14/25 06/15/25 23:59 23:59 23:59 23:59 Intake Total 1100 3080 218 Output Total 950 1450 Balance 1100 2130 -1232 Meds/Results Medications: Active Medications Generic Name Dose Route Start Last Admin Trade Name Freq PRN Reason Stop Dose Admin Acetaminophen 650 mg 06/13/25 21:42 Acetaminophen 325 Mg Tablet PO Q4H PRN Mild Pain (1-3) or Fever Hydrocodone Bitart/Acetaminophen 1 tab 06/14/25 01:30 06/14/25 21:20 Hydrocodone/Acetaminophen (*Crx) 10-325 Mg Tablet PO 1 tab Q6H PRN Administration Pain 7-10 Alprazolam 0.25 mg 06/14/25 01:27 Alprazolam (*Crx) 0.25 Mg Tablet PO TID PRN Anxiety Aspirin 81 mg 06/14/25 09:00 06/15/25 09:15 Aspirin 81 Mg Enteric Tablet PO 81 mg DAILY ANA Administration Atorvastatin Calcium 10 mg 06/14/25 09:00 06/15/25 09:15 Atorvastatin 10 Mg Tablet PO 10 mg DAILY ANA Administration Cyclobenzaprine HCl 10 mg 06/14/25 06:00 06/15/25 14:32 Cyclobenzaprine Hcl 10 Mg Tablet PO 10 mg Q8HR ANA Administration Diclofenac Sodium 1 applic 06/14/25 01:27 Diclofenac Sodium 1% 100 Gm Gel (*Bkc) TOPICAL QID PRN Pain Escitalopram Oxalate 20 mg 06/14/25 21:00 06/14/25 21:21 Escitalopram Oxalate 10 Mg Tablet PO 20 mg HS ANA Administration Furosemide 20 mg 06/14/25 09:00 06/15/25 09:15 Furosemide 20 Mg Tablet BY MOUTH 20 mg QAM ANA Administration Heparin Sodium (Porcine) 5,000 units 06/14/25 14:00 06/15/25 14:33 Heparin Sodium 5,000 Units/Ml Vial SUB-Q 5,000 units Q8HR ANA Administration Hydromorphone HCl 0.5 mg 06/13/25 21:42 06/15/25 14:34 Hydromorphone Hcl Inj (*Crx) 1 Mg/Ml Syr IV PUSH 0.5 mg Q4H PRN Administration Pain Rated 7-10 Meropenem 1 gm/ Sodium 100 mls @ 200 mls/hr 06/14/25 05:00 06/15/25 14:33 Chloride IVPB 200 mls/hr Q8HR ANA Administration Ketorolac Tromethamine 30 mg 06/13/25 21:42 06/15/25 09:08 Ketorolac 30 Mg/Ml Vial (*Bkc) IV PUSH 06/18/25 21:41 30 mg Q6H PRN Administration Pain Rated 4-6 Losartan Potassium 100 mg 06/14/25 21:00 06/14/25 21:21 Losartan Potassium 100 Mg Tablet PO 100 mg HS ANA Administration Metoprolol Succinate 25 mg 06/14/25 09:00 06/15/25 09:15 Metoprolol Succinate Ext Rel 25 Mg Tabcr PO 25 mg DAILY ANA Administration Olanzapine 5 mg 06/14/25 09:00 06/15/25 09:15 Olanzapine 5 Mg Tablet PO 5 mg DAILY ANA Administration Polyethylene Glycol 17 gm 06/14/25 01:27 Polyethylene Glycol 3350 17 Gm Powd.Pack PO DAILY PRN Constipation Ropinirole HCl 1 mg 06/14/25 04:05 06/14/25 21:25 Ropinirole Hcl 1 Mg Tablet PO 1 mg 1700,2100 ANA Administration Zolpidem Tartrate 5 mg 06/14/25 21:00 06/14/25 21:20 Zolpidem Tartrate (*Crx) 5 Mg Tablet PO 5 mg QHS ANA Administration Radiology Results: ITS Impressions Abdomen/Pelvis CT 06/13/25 18:24 IMPRESSION: Bilateral hydronephrosis, right greater than left. There is ileal conduit noted with urostomy in the anterior abdomen just to the left of midline. 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 No bowel obstruction. All CT scans at this facility are performed using low dose modulation techniques as appropriate to perform exam including the following: automated exposure control; use of iterative reconstruction technique; adjustment of the mA and/or kV according to patient size (this includes techniques or standardized protocols for targeted exams where dose is matched to indication/reason for exam). Labs Labs: Laboratory Results - last 24 hr 06/15/25 06:04 WBC 5.1 RBC 3.72 L Hgb 10.1 L Hct 31.7 L MCV 85.2 MCH 27.2 MCHC 31.9 L RDW 14.6 H Plt Count 207 MPV 9.5 Immature Gran % (Auto) 0.6 H Neut % (Auto) 59.7 Lymph % (Auto) 27.8 [place] % (Auto) 8.0 Eos % (Auto) 2.7 Baso % (Auto) 1.2 Lymph # (Auto) 1.43 [place] # (Auto) 0.4 Eos # (Auto) 0.1 Baso # (Auto) 0.1 Abs Immat Gran (auto) 0.03 Absolute Neuts (auto) 3.1 Absolute Nucleated RBC 0.000 Nucleated RBC % 0.0 Sodium 139 Potassium 3.9 Chloride 110 H Carbon Dioxide 23 Anion Gap 6 BUN 10 Creatinine 0.78 Estim Creat Clear Calc 87 Estimated GFR > 60 Glucose 100 Lactic Acid 0.9 Calcium 7.9 L
[2025-06-15] MEDS: ESCITALOPRAM OXALATE 10 MG TABLET 20 MG PO (21:06)
[2025-06-15] MEDS: LOSARTAN POTASSIUM 100 MG TABLET PO (21:07)
[2025-06-15] MEDS: ZOLPIDEM TARTRATE (*CRX) 5 MG TABLET PO (21:07)
[2025-06-15 22:00] VITALS: BP 148/76; PULSE 74; RESP 20; TEMP 36.8; O2SAT 99
[2025-06-16] MEDS: HYDROcodone/acetaminophen (*CRX) 10-325 MG TABLET 1 TAB PO ×3 (02:45→14:59)
[2025-06-16] MEDS: MEROPENEM 1 GM in SODIUM CHLORIDE 0.9% IV 100 ML 200 ML IVPB (05:07)
[2025-06-16] MEDS: CYCLOBENZAPRINE HCL 10 MG TABLET PO ×3 (05:07→21:22)
[2025-06-16 06:00] VITALS: BP 141/66; PULSE 59; RESP 18; TEMP 36.9; O2SAT 96
[2025-06-16 07:22] LABS: Hematocrit 31.1 % (37.0-47.0); Hemoglobin 10.2 g/dL (12.0-15.0); Immature Granulocyte Percent A 0.6 % (0-0.5); Lymphocytes Absolute Auto 1.60 K/mm3 (0.9-3.2); Mean Corpuscular HGB Conc 32.8 g/dl (32-36); Mean Corpuscular Hemoglobin 27.3 pg (26-34); Mean Corpuscular Volume 83.2 fl (80-100); Nucleated Red Blood Cells Absolute Auto 0.000 K/mm3 (0.0-0.012); Nucleated Red Blood Cells Perc 0.0 % (0.0-0.2); Platelet Count Result 219 k/mm3 (150-375); Red Blood Count 3.74 M/mm3 (4.2-5.4); White Blood Count 5.2 K/mm3 (4.5-10.0)
[2025-06-16 07:41] LABS: Anion Gap 4 mmol/L (4-12); Blood Urea Nitrogen 9 mg/dL (7-17); Calcium 8.0 mg/dL (8.4-10.2); Carbon Dioxide 25 mmol/L (22-30); Chloride 111 mmol/L (98-107); Estimated CRCL calculation 93 ml/min; Estimated Glomerular Filt Rate > 60; Glucose 95 mg/dL (65-110); Potassium 4.3 mmol/L (3.4-5.0); Sodium 140 mmol/L (137-145)
[2025-06-16] MEDS: ASPIRIN 81 MG ENTERIC TABLET PO (08:19)
[2025-06-16] MEDS: ATORVASTATIN 10 MG TABLET PO (08:19)
[2025-06-16] MEDS: METOPROLOL SUCCINATE EXT REL 25 MG TABCR PO (08:19)
[2025-06-16] MEDS: FUROSEMIDE 20 MG TABLET BY MOUTH (08:20)
[2025-06-16 08:30] VITALS: PULSE 59; RESP 18; O2SAT 96
[2025-06-16] MEDS: HYDROmorphone HCL INJ (*CRX) 1 MG/ML SYR 0.5 MG IV PUSH (09:27)
--- NOTE | 2025-06-16 13:33 | PM.IMPN2 ---
Assessment and Plan Assessment and Plan (1) UTI (urinary tract infection): Code(s): N39.0 - Urinary tract infection, site not specified Status: Acute Assessment and Plan: 06/13- UA showed 3+ Leukocyte,1+ protein, and high turbid 2+. Patient has a PMH of a UC that showed Enterobacter cloacae complex on 03/20 and treated with Meropenem 06/16- blood culture was negative for growth 06/16 meropenem stopped and ceftriaxone initiated at 1400 by ID Pain managed with oxycodone 5 mg Q6 prn and hydrocodone/acetaminophen 5-325 Patient will stop all IV pain medications Symptoms improving possible discharge tomorrow ID is following Urology is following (2) Hydronephrosis: Code(s): N13.30 - Unspecified hydronephrosis Status: Acute Assessment and Plan: Urology consulted on 06/14 Hydronephrosis is anticipated following ileal conduit Pt hydro on CT has been stable over time; creatinine stable No acute intervention recommended Unlikely source of pain; presentation may reflect pain related to parastomal hernia, however, no bowel obstruction seen on CT Will continue to follow Urology consult (3) History of ileal conduit: Code(s): Z98.890 - Other specified postprocedural states Status: Acute Assessment and Plan: Chronic condition see above (4) Depression with anxiety: Code(s): F41.8 - Other specified anxiety disorders Status: Acute Assessment and Plan: Depression and anxiety stable will continue lexapro and zyprexa (5) Hypertension: Qualifiers: Hypertension type: primary hypertension Qualified Code(s): I10 - Essential (primary) hypertension Code(s): I10 - Essential (primary) hypertension Status: Chronic Assessment and Plan: continue metoprolol and losartan Subjective Date/time seen: 06/16/25 13:33 Interval history: 59-year-old female patient who has a history of incomplete paraplegia, multiple abdominal infections, dysfunctional suprapubic catheter, currently has a ileal conduit to left lower quadrant presented with left upper and lower quadrant abdominal pain. 06/15 Patient reports she still has intermitted pain in the left upper and lower quadrant abdominal regions. Patient reports some back pain, decrease in appetite. Patient denies nausea and vomiting. Pt denies fever, chills, diarrhea, and constipation. Patient reports she gets frequent UTIs and was treated in February for the same complications during this visit. 06/16 Patient reports feeling a little better than yesterday. She still reports pain in the lower abdomen area that radiates to the lower back region. Patient states her appetite has not been good, but she has been drinking plenty of fluids. Patient reports nasuea only after eating food. Denies vomitting, fever, diarrhea, constipation, and headaches. Review of Systems Review of Systems: All systems reviewed & are unremarkable except as noted in HPI and below Exam Const: General: comfortable Eyes: Pupils: Equal, round and reactive pupils present Neck: Neck: supple and no JVD Thyroid: thyroid normal Resp: Effort & Inspection: normal respiratory effort Auscultation: clear to auscultation bilaterally Cardio: Rate: regular rate Rhythm: regular rhythm GI: GI Palp: Yes Soft to palpation Auscultation: normal bowel sounds : General: Yes no CVA tenderness Urinary Catheter: Urinary Catheter: patent and draining and urine clear Skin: General skin exam: normal color Neuro: General: patient oriented x3 and other (Motor abnormalitie present (Incomplete paralysis noted to lower extremities) Cognition (Neuro): normal cognition Speech: normal speech Motor exam (neuro): Motor abnormalites present Psych: Affect: normal affect Objective Data Vital Signs Vital Signs: Vital Signs - 24 hr 06/15/25 14:00 06/15/25 22:00 06/15/25 22:28 Temperature 96.8 F L 98.2 F Pulse Rate 70 74 Respiratory Rate 18 20 Blood Pressure 131/77 148/76 H Pulse Oximetry 97 99 Oxygen Delivery Autopap 06/16/25 02:14 06/16/25 06:00 06/16/25 08:30 Temperature 98.4 F Pulse Rate 59 L 59 L Respiratory Rate 18 18 Blood Pressure 141/66 H Pulse Oximetry 96 96 Oxygen Delivery Autopap Autopap Intake/Output Intake/Output: Intake & Output 06/13/25 06/14/25 06/15/25 06/16/25 23:59 23:59 23:59 23:59 Intake Total 1100 3080 895 268 Output Total 950 3000 2000 Balance 1100 [id number] -[id number] -[id number] Meds/Results Medications: Active Medications Generic Name Dose Route Start Last Admin Trade Name Freq PRN Reason Stop Dose Admin Acetaminophen 650 mg 06/13/25 21:42 Acetaminophen 325 Mg Tablet PO Q4H PRN Mild Pain (1-3) or Fever Hydrocodone Bitart/Acetaminophen 1 tab 06/14/25 01:30 06/16/25 08:21 Hydrocodone/Acetaminophen (*Crx) 10-325 Mg Tablet PO 1 tab Q6H PRN Administration Pain 7-10 Alprazolam 0.25 mg 06/14/25 01:27 Alprazolam (*Crx) 0.25 Mg Tablet PO TID PRN Anxiety Aspirin 81 mg 06/14/25 09:00 06/16/25 08:19 Aspirin 81 Mg Enteric Tablet PO 81 mg DAILY ANA Administration Atorvastatin Calcium 10 mg 06/14/25 09:00 06/16/25 08:19 Atorvastatin 10 Mg Tablet PO 10 mg DAILY ANA Administration Cyclobenzaprine HCl 10 mg 06/14/25 06:00 06/16/25 05:07 Cyclobenzaprine Hcl 10 Mg Tablet PO 10 mg Q8HR ANA Administration Diclofenac Sodium 1 applic 06/14/25 01:27 Diclofenac Sodium 1% 100 Gm Gel (*Bkc) TOPICAL QID PRN Pain Escitalopram Oxalate 20 mg 06/14/25 21:00 06/15/25 21:06 Escitalopram Oxalate 10 Mg Tablet PO 20 mg HS ANA Administration Furosemide 20 mg 06/14/25 09:00 06/16/25 08:20 Furosemide 20 Mg Tablet BY MOUTH 20 mg QAM ANA Administration Heparin Sodium (Porcine) 5,000 units 06/14/25 14:00 06/16/25 05:07 Heparin Sodium 5,000 Units/Ml Vial SUB-Q 5,000 units Q8HR ANA Administration Hydromorphone HCl 0.5 mg 06/13/25 21:42 06/16/25 09:27 Hydromorphone Hcl Inj (*Crx) 1 Mg/Ml Syr IV PUSH 0.5 mg Q4H PRN Administration Pain Rated 7-10 Ceftriaxone Sodium 2 gm/ 100 mls @ 200 mls/hr 06/16/25 14:00 Sodium Chloride IVPB Q24H [facility] Ketorolac Tromethamine 30 mg 06/13/25 21:42 06/15/25 09:08 Ketorolac 30 Mg/Ml Vial (*Bkc) IV PUSH 06/18/25 21:41 30 mg Q6H PRN Administration Pain Rated 4-6 Losartan Potassium 100 mg 06/14/25 21:00 06/15/25 21:07 Losartan Potassium 100 Mg Tablet PO 100 mg HS ANA Administration Metoprolol Succinate 25 mg 06/14/25 09:00 06/16/25 08:19 Metoprolol Succinate Ext Rel 25 Mg Tabcr PO 25 mg DAILY ANA Administration Olanzapine 5 mg 06/14/25 09:00 06/16/25 08:19 Olanzapine 5 Mg Tablet PO 5 mg DAILY ANA Administration Polyethylene Glycol 17 gm 06/14/25 01:27 Polyethylene Glycol 3350 17 Gm Powd.Pack PO DAILY PRN Constipation Ropinirole HCl 1 mg 06/14/25 04:05 06/15/25 21:07 Ropinirole Hcl 1 Mg Tablet PO 1 mg 1700,2100 ANA Administration Zolpidem Tartrate 5 mg 06/14/25 21:00 06/15/25 21:07 Zolpidem Tartrate (*Crx) 5 Mg Tablet PO 5 mg QHS ANA Administration Radiology Results: ITS Impressions Abdomen/Pelvis CT 06/13/25 18:24 IMPRESSION: Bilateral hydronephrosis, right greater than left. There is ileal conduit noted with urostomy in the anterior abdomen just to the left of midline. 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 No bowel obstruction. All CT scans at this facility are performed using low dose modulation techniques as appropriate to perform exam including the following: automated exposure control; use of iterative reconstruction technique; adjustment of the mA and/or kV according to patient size (this includes techniques or standardized protocols for targeted exams where dose is matched to indication/reason for exam). Labs Labs: Laboratory Results - last 24 hr 06/16/25 07:08 WBC 5.2 RBC 3.74 L Hgb 10.2 L Hct 31.1 L MCV 83.2 MCH 27.3 MCHC 32.8 RDW 14.4 Plt Count 219 MPV 9.6 Immature Gran % (Auto) 0.6 H Neut % (Auto) 57.0 Lymph % (Auto) 30.8 Garza % (Auto) 7.1 Eos % (Auto) 3.3 Baso % (Auto) 1.2 Lymph # (Auto) 1.60 Garza # (Auto) 0.4 Eos # (Auto) 0.2 Baso # (Auto) 0.1 Abs Immat Gran (auto) 0.03 Absolute Neuts (auto) 3.0 Absolute Nucleated RBC 0.000 Nucleated RBC % 0.0 Sodium 140 Potassium 4.3 Chloride 111 H Carbon Dioxide 25 Anion Gap 4 BUN 9 Creatinine 0.72 Estim Creat Clear Calc 93 Estimated GFR > 60 Glucose 95 Lactic Acid 0.8 Calcium 8.0 L
[2025-06-16 13:51] VITALS: BP 119/81; PULSE 67; RESP 16; TEMP 36.2; O2SAT 97
[2025-06-16] MEDS: cefTRIAXone 2 GM in SODIUM CHLORIDE 0.9% IV 100 ML 200 ML IVPB (15:00)
[2025-06-16] MEDS: oxyCODONE HCL (*CRX) 5 MG TAB IR PO ×2 (17:02→22:20)
[2025-06-16 20:21] VITALS: BP 137/57; PULSE 66; RESP 17; TEMP 36.8; O2SAT 97
[2025-06-16] MEDS: diphenhydrAMINE HCl CAP 25 MG CAPSULE PO (21:19)
[2025-06-16] MEDS: ESCITALOPRAM OXALATE 10 MG TABLET 20 MG PO (21:21)
[2025-06-16] MEDS: LOSARTAN POTASSIUM 100 MG TABLET PO (21:21)
[2025-06-16] MEDS: ZOLPIDEM TARTRATE (*CRX) 5 MG TABLET PO (21:22)
[2025-06-16] MEDS: WATER FOR IRRIGATION, STERILE 1,000 ML BOTTLE 1000 ML (22:14)
[2025-06-17] MEDS: oxyCODONE HCL (*CRX) 5 MG TAB IR PO ×3 (04:50→14:42)
[2025-06-17] MEDS: CYCLOBENZAPRINE HCL 10 MG TABLET PO ×2 (05:23→14:42)
[2025-06-17 06:00] VITALS: BP 141/72; PULSE 71; RESP 17; TEMP 37.4; O2SAT 99
[2025-06-17 08:58] VITALS: PULSE 71
[2025-06-17] MEDS: FUROSEMIDE 20 MG TABLET BY MOUTH (08:58)
[2025-06-17] MEDS: METOPROLOL SUCCINATE EXT REL 25 MG TABCR PO (08:58)
[2025-06-17] MEDS: ASPIRIN 81 MG ENTERIC TABLET PO (08:58)
[2025-06-17] MEDS: ATORVASTATIN 10 MG TABLET PO (08:58)
[2025-06-17] MEDS: diphenhydrAMINE HCl CAP 25 MG CAPSULE PO (10:54)
--- NOTE | 2025-06-17 11:55 | P.DS_ITS ---
DS: Admitting Diagnosis Discharge Date 06/17/2025 Admitting Diagnosis left upper and lower quadrant abdominal pain DS: Discharge Diagnosis Discharge Diagnosis (1) Hernia: Code(s): K46.9 - Unspecified abdominal hernia without obstruction or gangrene Status: Acute DS: Summary Hospital Course Reason for hospitalization: complicated UTI Hospital Course: 59 year old female presented to the ED with pain in her left upper and left lower abdominal quadrant area. She stated she was not able to eat anything due to the pain. Urology was consulted since the patient has ileal conduit and a prominent history of UTIs. A UA showed 3+ Leukocyte,1+ protein, and high turbid 2+. The patient was treated with meropenem since it previously worked in the past. Urology decided that the pain is not likely associated with the hydronephrosis. The pain source likely is related to the parastomal hernia, but CT showed no bowel obstruction. During the inpatient stay infectious disease was consulted and appropriate antibiotics were initiated for the UTI. Patient pain was controlled through IV pain medicine initially and the patient was weaned to PO pain medication. The patient is now hemodynamically stable and ready for discharge with appropriate pain medication and antibotics. Status at Discharge Functional status at discharge: wheelchair bound Overall status at discharge: patient is back to baseline Time Spent with Patient Time attestation: Total time spent providing and/or coordinating discharge services: Exam Const: General: comfortable and no acute distress Eyes: General: appearance normal, both eyes and all related structures Sclera: sclerae normal Pupils: Equal, round and reactive pupils present Neck: Neck: supple and no JVD Thyroid: thyroid normal Resp: Effort & Inspection: normal respiratory effort Auscultation: clear to auscultation bilaterally Cardio: Rate: regular rate Rhythm: regular rhythm GI: GI Palp: Yes Soft to palpation Urinary Catheter: Urinary Catheter: patent and draining and urine clear Skin: General skin exam: normal color Neuro: Motor exam (neuro): Motor abnormalites present (Incomplete paralysis noted to lower extremities ) Psych: Mental Status: mental status grossly normal Affect: normal affect DS: Data Data Completed and Pending Labs on day of discharge: Preliminary micro results at discharge 06/13/25 19:49 Blood Culture - Preliminary Blood 06/13/25 19:49 Blood Culture - Preliminary Blood Discharge Plan Discharge Attending physician on discharge: Anam Ibarra Consulting providers: Kimmie Barreto; Conner Terrell Discharging Clinician: Brandan Gaming Anticipated Discharge Date/Time: 06/17/25 15:30 Patient Disposition: Home Activity: as tolerated Diet: heart healthy Discharge Instructions: Why You were in the Hospital You were treated in the hospital for a complicated urinary tract infection. A complicated UTI is a bladder or kidney infection that occurs with certain conditions that make it more serious. Recommendations * You will need to follow up with your outpatient surgeon and PCP to discuss treatment options for the hernia that you have. Please follow up as soon as possible since this is the likely reason you were experiencing pain. * When taking your pain medicine please do not operate or move heavy machinery or drive. * If you are feeling constipated please take a stool softener because this can be a common side effect of your medication Medications- Taking your medications is very important. Please make sure you follow the directions exactly as prescribed. Some of your medications, might have changed. * Ciprofloxacin 500 mg by mouth twice a day (every 12 hours) for the next 10 days. You received one dosage before leaving the hospital, please take the next dosage 12 hours later. * Do not stop taking the antibiotic until you complete the full dose regimen, even if you start to feel better. * If the antibiotic makes your stomach hurt, please take the medication with food. * You can continue all your home medications as previously prescribed All side effects of medications have been discussed with you Follow up appointments * Please follow up with your PCP as soon as possible Patient should call 911 if you experience any of the following: - Chest pains or pressure - Trouble breathing - Fever over 100.4 or greater - Heavy bleeding or bleeding that will not stop - If you have worrisome symptoms Patient Instructions: Hernia Repair, Antibiotic Form, Constipation (DC), Urinary Tract Infection in Women (DC), High Fiber Diet (DC), Catheter-associated Urinary Tract Infection (DC) Patient Language: Setswana Stand Alone Forms: General Discharge Information Follow-up/Referrals: Panchito Walters DO [Primary Care Provider, Internal Medicine] - 2 Weeks Discharge Medications: New ciprofloxacin HCl 500 mg Tablet 500 mg PO Q12HR 10 Days Qty: 20 0RF Continued escitalopram oxalate 20 mg tablet 20 mg PO HS cyclobenzaprine 10 mg Tablet 10 mg PO TID Qty: 30 0RF ropinirole 0.5 mg tablet 1 mg PO BID Patient Comments: takes at 1700 and 2100 polyethylene glycol 3350 [Miralax] 17 gram/dose powder 17 g PO DAILY PRN (Reason: constipation) losartan 100 mg tablet 100 mg PO HS diclofenac sodium [Voltaren Arthritis Pain] 1 % gel 2 g topical QID PRN (Reason: pain) Rx Instructions: apply to single elbow, wrist or hand; for hand includes palm/fingers/back of hand alprazolam 0.25 mg tablet 0.25 mg PO TID PRN (Reason: anxiety) Qty: 60 0RF olanzapine 5 mg tablet 5 mg PO DAILY Qty: 30 0RF atorvastatin 10 mg tablet 10 mg PO DAILY Qty: 90 1RF aspirin [Adult Low Dose Aspirin] 81 mg tablet,delayed release (DR/EC) 81 mg PO DAILY Qty: 90 2RF ondansetron 4 mg tablet,disintegrating 4 mg PO Q8H PRN (Reason: nausea and vomiting) Qty: 20 0RF furosemide 20 mg tablet See Rx Instructions .ROUTE .COMPLEX Qty: 90 2RF Dose Instruction: 20 MG ORALLY EVERY MORNING Rx Instructions: 20 MG ORALLY EVERY MORNING metoprolol succinate 25 mg tablet extended release 24 hr 25 mg PO DAILY Qty: 90 2RF zolpidem [Ambien] 5 mg tablet 5 mg PO QHS Qty: 30 0RF Changed hydrocodone-acetaminophen 10-325 mg tablet 1 tablet PO Q6H Qty: 10 0RF Date of admission: 06/14/25 09:54 Primary Care Provider: Panchito Walters Admitting Provider: Gerhard Carmona Attending physician on admission: Gerhard Carmona Condition: Stable
[2025-06-17 13:40] VITALS: BP 150/88; PULSE 73; RESP 20; TEMP 35.8; O2SAT 98
[2025-06-17] MEDS: CIPROFLOXACIN 500 MG TAB PO (14:42)
--- NOTE | 2025-06-17 15:16 | P.PNINF_ITS ---
Progress Note: A&P Assessment and Plan (1) Urinary tract infection: Qualifiers: Urinary tract infection type: site unspecified Hematuria presence: without hematuria Qualified Code(s): N39.0 - Urinary tract infection, site not specified Code(s): N39.0 - Urinary tract infection, site not specified Status: Acute Assessment and Plan: ASSESSMENT: 1. complicated UTI iso ileal conduit--Klebsiella--suscept to ancef/ctx/cipro 2. anxiety and depression 3. obesity 4. Afib 5. HTN, HL, incomplete paralysis RECOMMENDATIONS: -s/p CTX today following meropenem Home with cipro oral to complet course d/w pharmacy Pt was seen via video telehealth consultation with the assistance of staff. Chart, data and patient info reviewed. Patient was located at [facility] while I was in my [place] office. Pt gave consent. Subjective Date/time seen: 06/17/25 15:16 Interval history: no fever. feels well; stronger Exam Narrative: NAD, non-toxic Objective Data Vital Signs Vital Signs: Vital Signs - 24 hr 06/16/25 20:00 06/16/25 20:21 06/17/25 01:53 Temperature 36.8 C Pulse Rate 66 Respiratory Rate 17 Blood Pressure 137/57 L Pulse Oximetry 97 Oxygen Delivery Autopap Autopap 06/17/25 06:00 06/17/25 08:00 06/17/25 08:58 Temperature 37.4 C Pulse Rate 71 71 Respiratory Rate 17 Blood Pressure 141/72 H Pulse Oximetry 99 Oxygen Delivery Room Air 06/17/25 13:40 Temperature 35.8 C L Pulse Rate 73 Respiratory Rate 20 Blood Pressure 150/88 H Pulse Oximetry 98 Oxygen Delivery Intake/Output Intake/Output: Intake & Output 06/14/25 06/15/25 06/16/25 06/17/25 23:59 23:59 23:59 23:59 Intake Total 3080 895 1948 240 Output Total 950 3000 2350 1400 Balance 8413 -5145 -[id number] -[id number] Meds/Results Medications: Active Medications Generic Name Dose Route Start Last Admin Trade Name Freq PRN Reason Stop Dose Admin Acetaminophen 650 mg 06/13/25 21:42 Acetaminophen 325 Mg Tablet PO Q4H PRN Mild Pain (1-3) or Fever Hydrocodone Bitart/Acetaminophen 1 tab 06/16/25 16:23 Hydrocodone/Acetaminophen (*Crx) 5-325 Mg Tablet PO Q6H PRN Pain Rated 4-6 Alprazolam 0.25 mg 06/14/25 01:27 Alprazolam (*Crx) 0.25 Mg Tablet PO TID PRN Anxiety Aspirin 81 mg 06/14/25 09:00 06/17/25 08:58 Aspirin 81 Mg Enteric Tablet PO 81 mg DAILY ANA Administration Atorvastatin Calcium 10 mg 06/14/25 09:00 06/17/25 08:58 Atorvastatin 10 Mg Tablet PO 10 mg DAILY ANA Administration Ciprofloxacin 500 mg 06/17/25 12:30 06/17/25 14:42 Ciprofloxacin 500 Mg Tab PO 06/27/25 21:01 500 mg Q12HR ANA Administration Cyclobenzaprine HCl 10 mg 06/14/25 06:00 06/17/25 14:42 Cyclobenzaprine Hcl 10 Mg Tablet PO 10 mg Q8HR ANA Administration Diclofenac Sodium 1 applic 06/14/25 01:27 Diclofenac Sodium 1% 100 Gm Gel (*Bkc) TOPICAL QID PRN Pain Escitalopram Oxalate 20 mg 06/14/25 21:00 06/16/25 21:21 Escitalopram Oxalate 10 Mg Tablet PO 20 mg HS ANA Administration Furosemide 20 mg 06/14/25 09:00 06/17/25 08:58 Furosemide 20 Mg Tablet BY MOUTH 20 mg QAM ANA Administration Heparin Sodium (Porcine) 5,000 units 06/14/25 14:00 06/17/25 14:41 Heparin Sodium 5,000 Units/Ml Vial SUB-Q 5,000 units Q8HR ANA Administration Losartan Potassium 100 mg 06/14/25 21:00 06/16/25 21:21 Losartan Potassium 100 Mg Tablet PO 100 mg HS ANA Administration Metoprolol Succinate 25 mg 06/14/25 09:00 06/17/25 08:58 Metoprolol Succinate Ext Rel 25 Mg Tabcr PO 25 mg DAILY ANA Administration Olanzapine 5 mg 06/14/25 09:00 06/17/25 08:58 Olanzapine 5 Mg Tablet PO 5 mg DAILY ANA Administration Oxycodone HCl 5 mg 06/16/25 16:23 06/17/25 14:42 Oxycodone Hcl (*Crx) 5 Mg Tab Ir PO 5 mg Q4H PRN Administration Pain Rated 7-10 Polyethylene Glycol 17 gm 06/14/25 01:27 06/17/25 10:54 Polyethylene Glycol 3350 17 Gm Powd.Pack PO 17 gm DAILY PRN Administration Constipation Ropinirole HCl 1 mg 06/14/25 04:05 06/16/25 21:22 Ropinirole Hcl 1 Mg Tablet PO 1 mg 1700,2100 ANA Administration Zolpidem Tartrate 5 mg 06/14/25 21:00 06/16/25 21:22 Zolpidem Tartrate (*Crx) 5 Mg Tablet PO 5 mg QHS ANA Administration Radiology Results: ITS Impressions Abdomen/Pelvis CT 06/13/25 18:24 IMPRESSION: Bilateral hydronephrosis, right greater than left. There is ileal conduit noted with urostomy in the anterior abdomen just to the left of midline. 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 No bowel obstruction. All CT scans at this facility are performed using low dose modulation techniques as appropriate to perform exam including the following: automated exposure control; use of iterative reconstruction technique; adjustment of the mA and/or kV according to patient size (this includes techniques or standardized protocols for targeted exams where dose is matched to indication/reason for exam).
== END 2025-06-17 17:25 | disposition home or self-care (01) | DRG 690 ==
LOC: ANHED 21:50 → ANH3MEDSUR 22:42
PROVIDERS: Emergency Medicine; Nurse Practitioner; Admitting Provider Internal Medicine; Emergency Provider Registered Nurse; PCP Internal Medicine; Visit Provider Internal Medicine
DX: N39.0 Urinary tract infection, site not specified (principal); G82.22 Paraplegia, incomplete; B96.1 Klebsiella pneumoniae [K. pneumoniae] as the cause of diseases classified elsewhere; E66.9 Obesity, unspecified; E78.5 Hyperlipidemia, unspecified; F41.8 Other specified anxiety disorders; G47.33 Obstructive sleep apnea (adult) (pediatric); I10 Essential (primary) hypertension; I48.0 Paroxysmal atrial fibrillation; K43.5 Parastomal hernia without obstruction or gangrene; K21.9 Gastro-esophageal reflux disease without esophagitis; M62.838 Other muscle spasm; N13.30 Unspecified hydronephrosis; Z93.6 Other artificial openings of urinary tract status; Z99.3 Dependence on wheelchair; Z86.73 Personal history of transient ischemic attack (TIA), and cerebral infarction without residual deficits; Z68.35 Body mass index [BMI] 35.0-35.9, adult; Z90.49 Acquired absence of other specified parts of digestive tract; Z79.82 Long term (current) use of aspirin; Z88.0 Allergy status to penicillin
CPT/HCPCS: 36415; 74177; 80048; 80053; 81001; 83605; 83690; 85025; 86140; 87040; 87086; 87186; 96361; 96365; 96375; 96376; 99285; A9270; G0378; J0696; J1171; J1644; J1885; J2185; J2405; J3480; J7030; Q9967